=== PATIENT | female | born 1945 | race Caucasian/White ===

== ENCOUNTER 2022-12-02 07:11 | Outpatient (OUT) | payer MEDICARE, SELFPAY ==
[2022-12-02 11:28] LABS: Chol HDL Ratio 2.7; Cholesterol 164 mg/dL (<=200); HDL Cholesterol 60 mg/dL (40-60); Triglycerides 240 mg/dL (<=150)
== END 2022-12-02 07:12 | disposition home or self-care (01) ==
LOC: LAB 07:16
PROVIDERS: PCP Nurse Practitioner
DX: E11.22 Type 2 diabetes mellitus with diabetic chronic kidney disease (principal); E78.5 Hyperlipidemia, unspecified
CPT/HCPCS: 36415; 80061

== ENCOUNTER 2022-12-02 07:19 | Outpatient (OUT) | payer MEDICARE, SELFPAY ==
[2022-12-02 07:41] LABS: Hematocrit 40.7 % (36.0-48.0); Hemoglobin 13.2 g/dL (12.0-16.0); Mean Corpuscular HGB Conc 32.4 g/dL (29.9-35.2); Mean Corpuscular Hemoglobin 29.6 pg (26.7-34.0); Mean Corpuscular Volume 91.3 fL (81.0-99.0); Mean Platelet Volume 8.9 fL (9.5-13.5); Platelet Count 195 10^3/uL (150-450); Red Blood Count 4.46 10^6/uL (4.20-5.40); Red Cell Distribution Width 12.7 % (11.0-15.0); White Blood Count 5.9 10^3/uL (4.0-11.0)
[2022-12-02 07:42] LABS: Bilirubin Urine NEGATIVE (NEGATIVE); Blood Urine NEGATIVE (NEGATIVE); Clarity Urine CLEAR (CLEAR); Color Urine LT. YELLOW (YELLOW); Glucose Urine UA 250 mg/dL (NEGATIVE); Ketones Urine NEGATIVE (NEGATIVE); Leukocyte Esterase Urine TRACE (NEGATIVE); Nitrite Urine NEGATIVE (NEGATIVE); Protein Urine NEGATIVE (NEG/TRACE); Specific Gravity Urine 1.015 (1.005-1.025); Urobilinogen Urine 0.2 EU/dL (0.2-1.0)
[2022-12-02 07:57] LABS: WBC Urine 0-2 #/HPF (NONE SEEN)
[2022-12-02 07:58] LABS: Bacteria Urine TRACE #/HPF (NONE SEEN); Cast Seen? NONE SEEN #/LPF (NONE SEEN); Crystals Seen? None Seen #/HPF (None Seen); Mucus Urine NONE SEEN (NONE SEEN); RBC Urine 0-2 #/HPF (0-2); Squamous Epithelial Cell Urine NONE SEEN #/LPF (NONE/RARE)
[2022-12-02 07:59] LABS: Creatinine Urine Random 67.89 mg/dL (20.00-300.00); Protein Creatinine Ratio Urine 0.15; Total Protein Urine Random 10.4 mg/dL (<=11.9)
[2022-12-02 09:00] LABS: Albumin Level 3.9 g/dL (3.4-5.0); Anion Gap 14.1; BUN Creatinine Ratio 21.6; Calcium 9.2 mg/dL (8.5-10.1); Carbon Dioxide 27.8 mmol/L (21.0-32.0); Chloride 102 mmol/L (98-107); Estimated GFR (African America 55 (>=60); Estimated GFR (Non-African Ame 46 (>=60); Glucose 113 mg/dL (74-106); Phosphorus 4.1 mg/dL (2.6-4.7); Potassium 3.9 mmol/L (3.5-5.1); Sodium 140 mmol/L (136-145); Uric Acid 4.8 mg/dL (2.6-6.0)
[2022-12-03 14:08] LABS: PTH, Intact 36 pg/mL (15-65)
== END 2022-12-02 07:20 | disposition home or self-care (01) ==
LOC: LAB 07:21
PROVIDERS: PCP Nurse Practitioner; Visit Provider Internal Medicine
DX: E11.22 Type 2 diabetes mellitus with diabetic chronic kidney disease (principal); E78.5 Hyperlipidemia, unspecified; I12.9 Hypertensive chronic kidney disease with stage 1 through stage 4 chronic kidney disease, or unspecified chronic kidney disease; N18.30 Chronic kidney disease, stage 3 unspecified; E61.1 Iron deficiency; E56.9 Vitamin deficiency, unspecified; E83.42 Hypomagnesemia
CPT/HCPCS: 36415; 80061; 80069; 81001; 82306; 82570; 83735; 83970; 84156; 84550; 85027

== ENCOUNTER 2023-02-15 14:22 | Outpatient (OUT) | payer MEDICARE, SELFPAY ==
--- NOTE | 2023-02-15 14:24 | MM_ITS ---
Patient Name: TAMMY SOLORIO MR#: [id number] : 1945 Exam Date: 02/15/2023 Ordering Doctor: LIZETTE Tapia CNP RADIOLOGY REPORT PROCEDURE: MM TOMOSYNTHESIS SCREENING BI COMPARISON: MG MAMM SCREEN 3D RIGOBERTO CAD, 02/02/2021. MG MAMM SCREEN 3D RIGOBERTO CAD, 02/05/2022. INDICATIONS: screening Z12.31 Calculator Name NCI Breast Cancer Risk Assessment Tool 5 Year Breast Cancer Risk 3.90% Lifetime Breast Cancer Risk 7.80% Personal Breast Cancer No Personal Ovarian Cancer Yes, Age 51, Hysterectomy Treatments None Family Cancers Mother with breast cancer at age 63; Sister with uterine cancer at age 23; Brother with liver cancer at age 68. LOCATION: [facility] BREAST COMPOSITION: Scattered areas fibroglandular density. FINDINGS: DIAGNOSTIC CATEGORY 1--NEGATIVE. NO CHANGE FROM COMPARISON ASSESSMENT. Scattered benign-appearing calcifications are present. RIGHT BREAST: No significant suspicious finding. LEFT BREAST: No significant suspicious finding. RECOMMENDATIONS: ROUTINE MAMMOGRAM AND CLINICAL EVALUATION IN 12 MONTHS. PLEASE NOTE: A NORMAL MAMMOGRAM DOES NOT EXCLUDE THE POSSIBILITY OF BREAST CANCER. A CLINICALLY SUSPICIOUS PALPABLE LUMP SHOULD BE BIOPSIED. Dictated by: Preston Hancock MD on 02/16/2023 at 09:30 Approved by: Preston Hancock MD on 02/16/2023 at 09:35
== END 2023-02-15 14:23 | disposition home or self-care (01) ==
LOC: MAMMO 14:22
PROVIDERS: PCP Nurse Practitioner; Visit Provider Nurse Practitioner
DX: Z12.31 Encounter for screening mammogram for malignant neoplasm of breast (principal); Z78.0 Asymptomatic menopausal state; Z80.3 Family history of malignant neoplasm of breast; Z80.8 Family history of malignant neoplasm of other organs or systems; Z80.9 Family history of malignant neoplasm, unspecified
CPT/HCPCS: 77063; 77067

== ENCOUNTER 2023-02-18 10:33 | Outpatient (OUT) | payer MEDICARE, SELFPAY ==
--- NOTE | 2023-02-18 10:38 | XR_ITS ---
[address] [address] Patient Name: TAMMY SOLORIO MRN: [id number] date: 1945 Sex: F Assigned Patient Location: [facility] Current Patient Location: [facility] Accession/Order Number: [id number] Exam Date: 02/18/2023 10:42 Report Date: 02/18/2023 11:23 At the request of: KATJA LEO Procedure: XR DEXA axial skeleton EXAMINATION: XR DEXA axial skeleton HISTORY: Stage 3 Chronic Kidney Disease N18.30 COMPARISON: No relevant comparison available. TECHNIQUE: Dual-energy X-ray absorptiometry (DXA) was performed. FINDINGS: SPINE ANALYSIS: Average bone mineral density is 1.046 g/cm2. T-score (standard deviation relative to young adult mean): -1.1 . HIP ANALYSIS: Lowest bone mineral density is within the left femoral trochanter, 0.542 g/cm2. T-score (standard deviation relative to young adult mean): -2.7 . XR/XR DEXA axial skeleton IMPRESSION: [employer] Classification: Osteoporosis - High Fracture Risk Electronically authenticated by: CARLOS DELANEY Date: 02/18/2023 11:23
== END 2023-02-18 10:34 | disposition home or self-care (01) ==
LOC: RAD 10:33
PROVIDERS: PCP Nurse Practitioner; Visit Provider Nurse Practitioner
DX: N18.30 Chronic kidney disease, stage 3 unspecified (principal); Z78.0 Asymptomatic menopausal state; M81.0 Age-related osteoporosis without current pathological fracture
CPT/HCPCS: 77080

== ENCOUNTER 2023-06-07 07:14 | Outpatient (OUT) | payer MEDICARE, SELFPAY ==
--- OUTSIDE RECORDS SUMMARY | 2023-06-07 07:19 | XMS_ITS | CCD ---
Author Organization [facility] Care Team Providers Care Regenerator Operator Name Role Phone SULY SANTOS Unavailable Unavailable SULY SANTOS Unavailable Unavailable SULY SANTOS Unavailable Unavailable JACKLYN STARR Unavailable Unavailable Natalee Camacho Unavailable Mapus, Tondra Unavailable Buck, Eboni Unavailable Kristin Cardoso Unavailable AICHHOLZ, WAGE AND SALARY ADMINISTRATOR DANA Admitting Unavailable AICHHOLZ, WAGE AND SALARY ADMINISTRATOR DANA Attending Unavailable AICHHOLZ, WAGE AND SALARY ADMINISTRATOR DANA Primary Care Unavailable DR ANDRÉS ESCALONA V Consulting Unavailable AICHHOLZ, WAGE AND SALARY ADMINISTRATOR DANA Consulting Unavailable MAPUS, TONDRA Admitting Unavailable MAPUS, TONDRA Attending Unavailable AICHHOLZ, WAGE AND SALARY ADMINISTRATOR DANA Primary Care Unavailable MAPUS, TONDRA Consulting Unavailable BUCK, EBONI Admitting Unavailable BUCK, EBONI Attending Unavailable AICHHOLZ, WAGE AND SALARY ADMINISTRATOR DANA Primary Care Unavailable BUCK, EBONI Consulting Unavailable BUCK, EBONI Admitting Unavailable BUCK, EBONI Attending Unavailable AICHHOLZ, WAGE AND SALARY ADMINISTRATOR DANA Primary Care Unavailable AICHHOLZ, WAGE AND SALARY ADMINISTRATOR DANA Consulting Unavailable BUCK, EBONI Consulting Unavailable AICHHOLZ, WAGE AND SALARY ADMINISTRATOR DANA Admitting Unavailable AICHHOLZ, WAGE AND SALARY ADMINISTRATOR DANA Attending Unavailable AICHHOLZ, WAGE AND SALARY ADMINISTRATOR DANA Primary Care Unavailable AICHHOLZ, WAGE AND SALARY ADMINISTRATOR DANA Consulting Unavailable AICHHOLZ, WAGE AND SALARY ADMINISTRATOR DANA Admitting Unavailable AICHHOLZ, WAGE AND SALARY ADMINISTRATOR DANA Attending Unavailable AICHHOLZ, WAGE AND SALARY ADMINISTRATOR DANA Primary Care Unavailable AICHHOLZ, WAGE AND SALARY ADMINISTRATOR DANA Consulting Unavailable BUCK, EBONI Admitting Unavailable BUCK, EBONI Attending Unavailable AICHHOLZ, WAGE AND SALARY ADMINISTRATOR DANA Primary Care Unavailable BUCK, EBONI Consulting Unavailable MAPUS, TONDRA Admitting Unavailable MAPUS, TONDRA Attending Unavailable AICHHOLZ, WAGE AND SALARY ADMINISTRATOR DANA Primary Care Unavailable MAPUS, TONDRA Consulting Unavailable BUCK, EBONI Admitting Unavailable BUCK, EBONI Attending Unavailable AICHHOLZ, WAGE AND SALARY ADMINISTRATOR DANA Primary Care Unavailable BUCK, EBONI Consulting Unavailable MAPUS, TONDRA K Referring Unavailable AICHHOLZ, DANA J Primary Care Unavailable Aichholz SENIOR MOBILE APPLICATION DEVELOPER, Dana Unavailable Lex Choi MD Primary Care Provider NO FAMILY, PHYSICIAN Primary Care Provider Unava ilable Mapus, LICENSED PROFESSIONAL COUNSELOR Tondra K Attending Provider [phone] MARKUS BAER Attending Unavailable AICHHOLZ, DANA Attending Unavailable MARKUS BAER Attending Unavailable AICHHOLZ, DANA Attending Unavailable Mapus, Tondra K Attending Unavailable Mapus, Tondra K Admitting Unavailable NO FAMILY, PHYSICIAN Primary Care Unavailable Allergies Allergy Classification Reported Allergen(s) Allergy Type Date of Onset Reaction(s) Facility (20 sources) Sulfamethoxazole / Trimethoprim Drug Allergy rash [facility] [email or web address] Other (16 sources) semaglutide Drug Allergy 03-31-19 24 diarrhea [facility] (13 sources) Soy Protein Shake Drug allergy Unknown [facility] [email or web address] Other (10 sources) metFORMIN Drug Allergy 03-31-19 24 g/i s/e [facility] (5 sources) Soy Balance Drug allergy rash [facility] [email or web address] Other (3 sources) Soy protein; Translations: [SOY] Propensity to adverse reactions to food (disorder) 12-09-19 22 [facility] (1 source) Sulfonamides (Antibiotic); Translations: [SULFA (SULFONAMIDE ANTIBIOTICS)] Propensity to adverse reactions to drug (disorder) 10-29-19 17 [facility] (1 source) ADHESIVE TAPE-SILICONES; Translations: [ADHESIVE TAPE-SILICONES] Propensity to adverse reactions to drug (disorder) 10-30-19 17 [facility] (2 sources) Sulfonamides (Antibiotic) Drug Allergy 10-29-19 17 Hives, Rash [facility] (2 sources) Wound Dressing Adhesive Drug Allergy 09-16-19 Unknown [facility] (2 sources) Sulfamethoxazole; Translations: [sulfamethoxazole] Drug Allergy 03-31-19 [facility] (2 sources) Trimethoprim; Translations: [trimethoprim] Drug Allergy 03-31-19 [facility] (1 source) metFORMIN Drug Allergy 03-31-19 [facility] (1 source) semaglutide Drug allergy (disorder) 03-31-19 [facility] Rep[facility] Medications Current Medications Medication Drug Class(es) Dates Sig (Normalized) Sig (Original) acetaminophen 80 mg rectal suppository (2 sources) acetaminophen (Tylenol) 80 MG suppository Insert into the rectum every 6 (six) hours if needed for mild pain or fever. 0 Active acetaminophen 500 mg / diphenhydrAMINE hydrochloride 25 mg oral tablet (16 sources) Histamine-1 Receptor Antagonist take 2 tablets by mouth every twenty-four hours Acetaminophen PM 500-25 MG 2 TABLETS Orally Once a day Active alendronic acid 70 mg oral tablet (2 sources) Bisphosphonate Start: 03-08-2023 alendronate (Fosamax) 70 MG tablet Indications: Osteoporosis Take 1 tablet (70 mg) by mouth every 7 (seven) days for 28 days Take in the morning with a full glass of water, on an empty stomach, and do not take anything else by mouth or lie down for the next 30 min. 4 tablet 5 03/08/2023 Active amLODIPine 5 mg oral tablet (20 sources) Dihydropyridine Calcium Channel Leti Start: 06-28-2022 take 1 tablet by mouth in the morning amLODIPine (Norvasc) 5 MG tablet Take 5 mg by mouth in the morning. 0 06/28/2022 Active take 0.5 tablet by mouth once da ran amLODIPine Besylate 10 MG 1/2 tablet Orally Once a day Active ascorbic acid 1000 mg oral tablet (9 sources) Vitamin C Ascorbic Acid (vitamin C) 1000 MG tablet 1 (one) time each day at the same time. 0 Active aspirin 81 mg delayed release oral tablet (20 sources) Platelet Aggregation Inhibitor, Nonsteroidal Anti-inflammatory Drug take 1 tablet by mouth in the morning aspirin 81 MG EC tablet Take 81 mg by mouth in the morning. 0 Active take 1 tablet by fidel th every twenty-four hours Aspirin 81 MG 1 tablet Orally Once a day for 30 day(s) Active atorvastatin 20 mg oral tablet (20 sources) HMG-CoA Reductase Inhibitor Start: 03-29-2023 End: 06-27-2023 take 1 tablet by mouth in the morning atorvastatin (Lipitor) 20 MG tablet Indications: Mixed hyperlipidemia (CMS/HCC) Take 1 tablet (20 mg) by mouth in the morning. 90 tablet 1 03/29/2023 06/27/2023 Active take 1 tablet by fidel every twenty-four hours Atorvastatin Calcium 20 MG 1 tablet Oral ly Once a day Active Benadryl Allergy 25 MG (1 source) Start: 09-23-2021 take 1 capsule by mouth once daily at bedtime as needed Benadryl Allergy 25 MG 1 capsule at bedtime as needed Orally Once a day for 30 day(s) As needed for rash and itching Aug, Active Calcium Carbonate / Vitamin D (2 sources) Calcium Carbonate-Vitamin D (CALTRATE 600+D PO) Caltrate 600+D 0 Active Caltrate 600+D 600-400 MG-UNIT (20 sources) take 1 tablet by mouth twice daily Caltrate 600+D 600-400 MG-UNIT 1 TABLET Orally TWICE A DAY Active take 2 tablets by mouth twice da ran Caltrate 600+D 600-400 MG-UNIT 2 tablet Orally TWICE A DAY Active take 2 tablets by mouth once leeann ly Caltrate 600+D 600-400 MG-UNIT 2 tablet Orally daily Active cetirizine hydrochloride 10 mg oral tablet (20 sources) Histamine-1 Receptor Antagonist cetirizine (ZyrTEC) 10 MG tablet 1 (one) time each day at the same time. 0 Active cholecalciferol 0.05 mg oral tablet (3 sources) Vitamin D cholecalciferol (Vitamin D-3) 50 MCG (1999 UT) tablet Vitamin D3 0 Active take 1 capsule by mo [facility] every twenty-four hours Vitamin D 50 MCG (1999 UT) 1 capsule Orally Once a day for 30 day(s) Active dapagliflozin 5 mg oral tablet (19 sources) Sodium-Glucose Cotransporter 2 Inhibitor Start: 12-21-2021 take 1 tablet by mouth every twenty-four hours Farxiga 5 MG 1 tablet Orally Once a day for 90 day(s) Nov, Active docosahexaenoic acid 120 mg / eicosapentaenoic acid 180 mg oral capsule (2 sources) omega-3 (fish oil) 1000 MG capsule 1 capsule 1 (one) time each day at the same time. 0 Active ferrous sulfate 325 mg oral tablet (20 sources) take 1 tablet by mouth every other day ferrous sulfate 325 (65 Fe) MG tablet Take 1 tablet by mouth every other day. 0 Active take 1 tablet by mouth every oth er day Ferrous Sulfate 325 (65 Fe) MG TAKE 1 TABLET BY MOUTH EVERY OTHER DAY for 90 Active take 1 tablet by mouth every oth er day Ferrous Sulfate 325 (65 Fe) MG TAKE 1 TABLET BY MOUTH EVERY OTHER DAY 90 for 90 Active Finerenone 10 MG (13 sources) Start: 12-14-2021 take 1 tablet by fidel th once daily Finerenone 10 MG 1 tablet Orally Once a day for 90 days Nov, Active Start: 12-14-2021 take 1 tablet by fidel th once daily Finerenone 10 MG 1 tablet Orally Once a day for 90 day(s) Nov, Active Start: 12-14-2021 take 1 tablet by fidel th once daily Finerenone 10 MG 1 tablet Orally Once a day for 30 day(s) Nov, Active take 1 tablet by fidel th once daily Finerenone 10 MG 1 tablet Orally Once a day for 30 days Active finerenone 10 MG Oral Tablet [Kerendia] (2 sources) take 1 tablet by fidel th once daily Kerendia 10 MG TAKE 1 TABLET BY MOUTH EVERY DAY for 90 Active take 1 tablet by fidel th every twenty-four hours Kerendia 10 MG 1 tablet Orally Once a day Active gabapentin 100 mg oral capsu le (20 sources) Anti-epileptic Agent gabapentin (Neurontin) 100 MG capsule Gabapentin Activ e kerendia 10 mg tablet (1 source) take 1 tablet by mouth once daily Kerendia 10 MG TAKE 1 TABLET BY MOUTH EVERY DAY for 90 Active Kerendia 10 MG tablet (2 sources) take 1 tablet by mouth in the morning Kerendia 10 MG tablet Take 10 mg by mouth in the morning. 0 Active latanoprost 0.05 mg/ml ophthalmic solution (4 sources) Prostaglandin Analog Start: 3 take 1 drop(s) into the eye(s) once daily in the evening latanoprost (Xalatan) 0.005 % ophthalmic solution INSTILL 1 DROP INTO BOTH EYES EVERY EVENING DIRECTED 0 07/20/2022 Active take 1 drop(s) into the eye(s) once daily in the evening Latanoprost 0.005 % 1 drop into affected eye in the evening Ophthalmic Once a day Active losartan potassium 100 mg oral tablet (20 sources) Angiotensin 2 Receptor Leti Start: 02-27-2023 End: 05-28-2023 take 1 tablet by mouth in the morning losartan (Cozaar) 100 MG tablet Indications: Essential (primary) hypertension (CMS/HCC) Take 1 tablet (100 mg) by mouth in the morning. 90 tablet 0 02/27/2023 05/28/2023 Active Magnesium (20 sources) magnesium 250 MG tablet 1 (one) time each day at the same time. 0 Active take 1 tablet by mouth once michael y Magnesium 250 MG 1 tablet with a meal Orally Once a day Active melatonin 1 mg oral tablet (4 sources) melatonin tablet Take by mouth at bedtime. 0 Active Melatonin 10 MG as directed Orally Active Melatonin 10 MG as directed Orally Active Melatonin + L-Theanine - (7 sources) Melatonin + L-Theanine - as directed Orally Active meloxicam 15 mg oral tablet (20 sources) Nonsteroidal Anti-inflammatory Drug meloxicam (Mobic) 15 MG tablet 24 hr metFORMIN hydrochloride 500 mg extended release oral tablet (11 sources) Biguanide take 1 tablet by mouth every twenty-four hours metFORMIN HCl ER 500 MG 1 tablet Orally Daily Active methylPREDNISolone 4 mg oral tablet (1 source) Corticosteroid Start: 022 Medrol 4 MG as directed Orally as directed for 6 days Aug, Active Multiple Vitamins-Minerals (One Daily For Women 50+ Adv) tablet (2 sources) take 1 tablet by mouth once daily Multiple Vitamins-Minerals (One Daily For Women 50+ Adv) tablet as directed Orally 0 Active Revere 3 1000 MG (20 sources) take 1 capsule by mouth once daily Revere 3 1000 MG 1 capsule Orally Once a day Active omeprazole 20 mg delayed release oral capsule (20 sources) Proton Pump Inhibitor omeprazole (PriLOSEC) [address] capsule One Daily For Women 50+ Adv - (20 sources) One Daily For Women 50+ Adv - as directed Orally Active sertraline 50 mg oral tablet (20 sources) Serotonin Reuptake Inhibitor Start: End: 024 take 1 tablet by mouth in the morning sertraline (Zoloft) 50 MG tablet Indications: Depression, unspecified (CMS/HCC) Take 1 tablet (50 mg) by mouth in the morning. 90 tablet 1 02/27/2023 05/28/2023 Active triamcinolone acetonide 0.055 mg/actuat metered dose nasal spray (18 sources) Corticosteroid take 1 spray(s) nasal route once daily as needed Nasacort Allergy 24HR 55 MCG/ACT 1 spray in each nostril Nasally Once a day PRN ONLY Active Vitamin B12 1000 MCG (7 sources) take 1 tablet by mouth once daily Vitamin B12 1000 MCG 1 tablet Orally Once a day Active Vitamin C 1000 MG (13 sources) take 1 tablet by mouth once daily Vitamin C 1000 MG 1 tablet Orally Once a day for 30 day(s) Active Vitamin D 50 MCG (1999) (19 sources) take 1 capsule by mouth once daily Vitamin D 50 MCG (1999) 1 capsule Orally Once a day for 30 day(s) Active Completed/Discontinued Medications Medication Drug Class(es) Dates Sig (Normalized) Sig (Original) Ozempic 0.25 or 0.5 MG/DOSE (7 sources) inject 0.5 mg by subcutaneous injection every week Ozempic 0.25 or 0.5 MG/DOSE 0.5mg sq Subcutaneous once weekly Not-Taking inject 0.5 mg by sub cutaneous injection every week Ozempic 0.25 or 0.5 MG/DOSE 0.5mg sq Subcutaneous once weekly Active [employer] - (2 sources) [employer] - as directed Orally Not-Taking [employer] - as directed Orally Active Problems Active Problems Problem Classification Problem Date Documented Date Episodic/Chronic Administrative/socia l admission (5 sources) Dietary counseling and surveillance; Translations: [Dietary counseling and surveillance Z71.3] Onset: 1 Resolved: 2 Episodic Cancer of ovary (2 sources) Malignant tumor of ovary; 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] Onset: 5 02-07-2023 Chronic Cataract (2 sources) Cataract; Translations: [Unspecified cataract] Onset: 2 02-07-2023 Chronic Chronic kidney disease (20 sources) Chronic kidney disease stage 3; Translations: [Chronic kidney disease, stage 3 (moderate)] Onset: 3 02-07-2023 Chronic Deficiency and other anemia (20 sources) Anemia of renal disease; Translations: [Anemia in chronic kidney disease] Chronic Diabetes mellitus with complications (20 sources) Disorder of kidney due to diabetes mellitus; Translations: [Type 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] Onset: 1 Resolved: 2 Chronic Diabetes mellitus without complication (1 source) Diabetes mellitus without complication; Translations: [Type 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] Onset: 4 Disorders of lipid metabolism (20 sources) Hyperlipidemia; Translations: [Hyperlipidemia, unspecified] Onset: 7 Resolved: 2 Chronic Esophageal disorders (2 sources) Gastroesophageal reflux disease; Translations: [Gastro-esophageal reflux disease without esophagitis] Onset: 7 02-07-2023 Chronic Essential hypertension (20 sources) Essential hypertension; Translations: [Essential (primary) hypertension] Onset: 1 Resolved: 2 Chronic Hypertension with complications and secondary hypertension (20 sources) Benign arteriolar nephrosclerosis; Translations: [Hypertensive chronic kidney disease with stage 1 through stage 4 chronic kidney disease, or unspecified chronic kidney disease] Onset: 1 Resolved: 2 Chronic Mycoses (1 source) Onychomycosis due to dermatophyte ; Translations: [Tinea unguium] 04-13-2023 Episodic Nutritional deficiencies (20 sources) Vitamin D deficiency; Translations: [Vitamin D deficiency, unspecified] Chronic Nutritional deficiencies (20 sources) Deficiency of other specified B group vitamins; Translations: [Iron deficiency] Onset: 1 Resolved: 2 Episodic Osteoarthritis (4 sources) Arthritis; Translations: [Unspecified osteoarthritis, unspecified site] Onset: 3 02-07-2023 Chronic Osteoporosis (2 sources) Senile osteoporosis; Translations: [Age-related osteoporosis without current pathological fracture] Onset: 3 02-18-2023 Chronic Other aftercare (4 sources) Aftercare following joint replacement surgery; Translations: [AFTERCARE FOLLOWING JOINT REPLACEMENT SURGERY] Onset: 7 Chronic Other connective tissue disease (1 source) Presence of artificial knee joint, bilateral; Translations: [PRESENCE OF ARTIFICIAL KNEE JOINT, BILATERAL] Onset: 7 Chronic Other connective tissue disease (2 sources) Fibromyalgia; Translations: [Fibromyalgia] Onset: 3 02-07-2023 Episodic Other connective tissue disease (2 sources) Pain in toe; Translations: [Pain in right toe(s)] 04-13-2023 Episodic Other diseases of kidney and ureters (20 sources) Secondary hyperparathyroidism; Translations: [Secondary hyperparathyroidism of renal origin] Chronic Other diseases of kidney and ureters (1 source) Secondary hyperparathyroidism of renal origin; Translations: [SEC HYPERPARATHYROIDISM RENAL ORIGN] Onset: 2 Chronic Other nervous system disorders (2 sources) Polyneuropathy associated with another disorder; 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] Onset: 3 02-07-2023 Chronic Other nutritional; endocrine; and metabolic disorders (20 sources) Body mass index 40+ - severely obese; Translations: [Body mass index (BMI) 40.0-44.9, adult] Chronic Other nutritional; endocrine; and metabolic disorders (20 sources) Obese class II; Translations: [Body mass index (BMI) 38.0-38.9, adult] Chronic Other nutritional; endocrine; and metabolic disorders (5 sources) Body mass index (BMI) 37.0-37.9, adult; Translations: [BMI 37.0-37.9, adult Z68.37] Onset: 1 Resolved: 2 Chronic Other nutritional; endocrine; and metabolic disorders (13 sources) Hypomagnesemia; Translations: [Hypomagnesemia] Chronic Other nutritional; endocrine; and metabolic disorders (4 sources) Hypomagnesemia; Translations: [HYPOMAGNESEMIA] Onset: 3 Chronic Other nutritional; endocrine; and metabolic disorders (2 sources) Severe obesity; Translations: [Morbid (severe) obesity due to excess calories] Onset: 2 02-07-2023 Chronic Other screening for suspected conditions (not mental disorders or infectious disease) (6 sources) Encounter for screening mammogram for malignant neoplasm of breast; Translations: [Patient encounter status] Onset: 2 Episodic Other skin disorders (1 source) Dystrophia unguium; Translations: [Nail dystrophy] 04-13-2023 Episodic Residual codes; unclassified (2 sources) Menopause present; Translations: [Asymptomatic menopausal state] Onset: 3 02-07-2023 Episodic Unclassified (2 sources) Unknown / UNK(Unknown) Onset: 7 Unclassified (1 source) CHRN KIDNEY DISEASE STG 3 UNSP; Translations: [CHRN KIDNEY DISEASE STG 3 UNSP] Onset: 3 Past or Other Problems Problem Classification Problem Date Documented Da te Episodic/Chronic Allergic reactions (1 source) Urticaria, unspecified Onset: 09-23-2021 Resolved: 09-23-2021 Episodic Chronic kidney disease (20 sources) Chronic kidney disease; Translations: [Chronic kidney disease, stage III (moderate)] Onset: 12-23-2020 Resolved: 06-17-2021 Immunizations and screening for infectious disease (1 source) Encounter for immunization; Translations: [Encounter for immunization Z23] Onset: 12-05-2020 Resolved: 12-05-2020 Episodic Mood disorders (2 sources) Mood disorders Onset: 03-28-2023 03-28-2023 Other gastrointestinal disorders (4 sources) Diarrhea, unspecified; Translations: [DIARRHEA UNSPECIFIED] Onset: 06-18-2021 Episodic Residual codes; unclassified (1 source) Family history of malignant neoplasm of breast; Translations: [FAMILY HX MALIG NEOPLASM OF BREAST] Onset: 02-08-2022 Episodic Residual codes; unclassified (1 source) Family history of malignant neoplasm of digestive organs; Translations: [FAM HX MALIG NEOPLASM DIGESTIV ORGN] Onset: 02-08-2022 Episodic Residual codes; unclassified (1 source) Family history of malignant neoplasm of other genital organs; Translations: [FAM HX MALIG NEOPLSM OTH GENIT ORGN] Onset: 02-08-2022 Episodic Spondylosis; intervertebral disc disorders; other back problems (2 sources) Backache; Translations: [Dorsalgia, unspecified] Onset: 07-29-2016 02-07-2023 Episodic Results Test Name Value Interpretation Reference Range Facility Lipid 1996 panelon 4 Cholesterol [Mass/Vol] 144 mg/dL Low 150-200 [facility] Comment on above: Performed By: #### 2 4331-1 #### [facility] ([id number]) [address], [address] [place] [address] Cholesterol in HDL [Mass/Vol] 49 mg/dL Normal >39 [facility] Comment on above: Result Comment: HDL <40 mg/dL - High Risk HDL > or = 40mg/dL- Desirable HDL >60 mg/dL - Negative Risk Performed By: #### 2 4331-1 #### [facility] ([id number]) [address], [address] [place] [address] Cholesterol in LDL [Mass/Vol] 49 mg/dL Normal <130 [facility] Comment on above: Result Comment: LDL <100 mg/dL - Desirable LDL >160 mg/dL - High Risk Performed By: #### 2 4331-1 #### [facility] ([id number]) [address], [address] [place] [address] Cholesterol in VLDL [Mass/Vol] 46 mg/dL High 0-30 [facility] Comment on above: Performed By: #### 2 4331-1 #### [facility] ([id number]) [address], [address] [place] [address] CHOLESTEROL:HDL 2.9 Normal 1.0-5.0 [facility] Comment on above: Performed By: #### 2 4331-1 #### [facility] ([id number]) [address], [address] [place] [address] Triglyceride [Mass/Vol] 228 mg/dL High 27-150 [facility] Comment on above: Performed By: #### 2 4331-1 #### [facility] ([id number]) [address], [address] [place] [address] A1C HEMOGLOBINon 09-29-2022 HbA1c (Bld) [Mass fraction] 6.2 % [facility] Other Glucose - FINGER STICKon Glucose [Mass/Vol] 113 mg/dL [facility] Other HbA1c (Bld) [Mass fraction]o n 09-29-2022 A1C HEMOGLOBIN [facility] [email or web address] Other PTH INTACTon 06-03-2022 PTH, Intact 38 pg/mL Normal 15-65 [facility] Comment on above: Performed By: #### P THINT #### [facility] [address] [place] [address] Dr. Rizwan Fernando HEMOGRAM AND PLATELon 2022 Hematocrit (Bld) [Volume fraction] 39.5 % Normal 36.0-48.0 [facility] Comment on above: Performed By: #### H H #### [facility] [address] [address] [address] Rizwan Fernando Hemoglobin (Bld) [Mass/Vol] 12.8 g/dL Normal 12.0-16.0 [facility] Comment on above: Performed By: #### H H #### [facility] [address] [address] [address] Rizwan Fernando MCH (RBC) [Entitic mass] 28.9 pg Normal 26.7-34.0 [facility] Comment on above: Performed By: #### H H #### [facility] [address] [address] [address] Rizwan Fernando MCHC (RBC) [Mass/Vol] 32.4 g/dL Normal 29.9-35.2 [facility] Comment on above: Performed By: #### H H #### [facility] [address] [place] [address] Dr. Rizwan Fernando MCV (RBC) [Entitic vol] 89.2 fL Normal 81.0-99.0 [facility] Comment on above: Performed By: #### H H #### [facility] [address] [address] [address] Rizwan Fernando PLT 202 103/ul Normal 150-450 [facility] Comment on above: Performed By: #### H H #### [facility] [address] [place] [address] Dr. Rizwan Fernando RBC 4.43 106/ul Normal 4.20-5.40 [facility] Comment on above: Performed By: #### H H #### [facility] [address] [place] [address] Dr. Rizwan Fernando WBC 6.2 103/ul Normal 4.0-11.0 [facility] Comment on above: Performed By: #### H H #### [facility] [address] [place] [address] Dr. Rizwan Fernando IRON AND TIBCon 06-02-2022 % SATURATION 23.2 % Normal [facility] Comment on above: Performed By: #### R ENAL, MG, URIC #### [facility] [address] [place] [address] Dr. Rizwan Fernando Iron [Mass/Vol] 64.0 ug/dL Normal 50.0-170.0 [facility] Comment on above: Performed By: #### R ENAL, MG, URIC #### [facility] [address] [place] [address] Dr. Rizwan Fernando TIBC DIRECT 276.0 ug/dL Normal 250.0-450.0 [facility] Comment on above: Performed By: #### R ENAL, MG, URIC #### [facility] [address] [place] [address] Dr. Rizwan Fernando MAGNESIUMon 06-02-2022 Magnesium [Mass/Vol] 1.9 mg/dL Normal 1.8-2.4 [facility] Comment on above: Performed By: #### R ENAL, MG, URIC #### [facility] [address] [place] [address] Dr. Rizwan Fernando RENAL FUNCTION PANELon 06-02 Albumin [Mass/Vol] 3.9 g/dL Normal 3.4-5.0 [facility] Comment on above: Performed By: #### R ENAL, MG, URIC #### [facility] [address] [address] [address] Rizwan Fernando Calcium [Mass/Vol] 9.2 mg/dL Normal 8.5-10.1 [facility] Comment on above: Performed By: #### R ENAL, MG, URIC #### [facility] [address] [address] [address] Rizwan Fernando Chloride [Moles/Vol] 102 mmol/L Normal 98-107 [facility] Comment on above: Performed By: #### R ENAL, MG, URIC #### [facility] [address] [place] [address] Dr. Rizwan Fernando CO2 [Moles/Vol] 29.2 mmol/L Normal 21.0-32.0 [facility] Comment on above: Performed By: #### R ENAL, MG, URIC #### [facility] [address] [place] [address] Dr. Rizwan Fernando Creatinine [Mass/Vol] 1.05 mg/dL Critically high 0.55-1.02 [facility] Comment on above: Performed By: #### R ENAL, MG, URIC #### [facility] [address] [place] [address] Dr. Rizwan Fernando EGFR-AF BRITISH >60 Normal >=60 [facility] Comment on above: Performed By: #### R ENAL, MG, URIC #### [facility] [address] [place] [address] Dr. Rizwan Fernando EGFR-NON AF BRITISH 51 mL/min/1.73m2 Critically low >=60 [facility] Comment on above: Performed By: #### R ENAL, MG, URIC #### [facility] [address] [place] [address] Dr. Rizwan Fernando Glucose [Mass/Vol] 112 mg/dL Critically high 74-106 [facility] Comment on above: Performed By: #### R ENAL, MG, URIC #### [facility] [address] [address] [address] Rizwan Fernando Phosphate [Mass/Vol] 4.3 mg/dL Normal 2.6-4.7 [facility] Comment on above: Performed By: #### R ENAL, MG, URIC #### [facility] [address] [place] [address] Dr. Rizawn Fernando Potassium [Moles/Vol] 4.0 mmol/L Normal 3.5-5.1 [facility] Comment on above: Performed By: #### R ENAL, MG, URIC #### [facility] [address] [address] [address] Rizwan Fernando Sodium [Moles/Vol] 139 mmol/L Normal 136-145 [facility] Comment on above: Performed By: #### R ENAL, MG, URIC #### [facility] [address] [place] [address] Dr. Rizwan Fernando Urea nitrogen [Mass/Vol] 24.0 mg/dL Critically high 7.0-18.0 [facility] Comment on above: Performed By: #### R ENAL, MG, URIC #### [facility] [address] [place] [address] Dr. Rizwan Fernando UA RANDOM W/MICROSCOPICon BACTERIA NONE SEEN Normal NONE SEEN [facility] Comment on above: Performed By: #### R ENAL, MG, URIC #### [facility] [address] [place] [address] Dr. Rizwan Fernando Bilirubin Ql (U) Negative Normal NEGATIVE [facility] Comment on above: Performed By: #### R ENAL, MG, URIC #### [facility] [address] [place] [address] Dr. Rizwan Fernando CAST NONE SEEN Normal NONE SEEN [facility] Comment on above: Performed By: #### R ENAL, MG, URIC #### [facility] [address] [place] [address] Dr. Rizwan Fernando Clarity (U) CLEAR Normal CLEAR [facility] Comment on above: Performed By: #### R ENAL, MG, URIC #### [facility] [address] [address] [address] Rizwan Fernando Color (U) LT. YELLOW Normal YELLOW [facility] Comment on above: Performed By: #### R ENAL, MG, URIC #### [facility] [address] [place] [address] Dr. Rizwan Fernando Crystals LM Nom (Urine sed) NONE SEEN Normal NONE SEEN [facility] Comment on above: Performed By: #### R ENAL, MG, URIC #### [facility] [address] [place] [address] Dr. Rizwan Fernando Epithelial cells LM Ql (Urine sed) NONE SEEN Normal NONE SEEN /RARE [facility] Comment on above: Performed By: #### R ENAL, MG, URIC #### [facility] [address] [place] [address] Dr. Rizwan Fernando Glucose Ql (U) 250 mg/dl Abnormal NEGATIVE [facility] Comment on above: Performed By: #### R ENAL, MG, URIC #### [facility] [address] [place] [address] Dr. Rizwan Fernando Hemoglobin Ql (U) Negative Normal NEGATIVE The [facility] Comment on above: Performed By: #### R ENAL, MG, URIC #### [facility] [address] [place] [address] Dr. Rizwan Fernando Ketones Ql (U) Negative Normal NEGATIVE [facility] Comment on above: Performed By: #### R ENAL, MG, URIC #### [facility] [address] [place] [address] Dr. Rizwan Fernando LEUKOCYTES TRACE Abnormal NEGATIVE [facility] Comment on above: Performed By: #### R ENAL, MG, URIC #### [facility] [address] [place] [address] Dr. Rizwan Fernando MUCOUS NONE SEEN Normal NONE SEEN [facility] Comment on above: Performed By: #### R ENAL, MG, URIC #### [facility] [address] [place] [address] Dr. Rizwan Fernando Nitrite Ql (U) Negative Normal NEGATIVE [facility] Comment on above: Performed By: #### R ENAL, MG, URIC #### [facility] [address] [place] [address] Dr. Rizwan Fernando pH (U) 6.0 [pH] Normal 5-9 [facility] Comment on above: Performed By: #### R ENAL, MG, URIC #### [facility] [address] [place] [address] Dr. Rizwan Fernando RBC NONE SEEN Abnormal 0-2 [facility] Comment on above: Performed By: #### R ENAL, MG, URIC #### [facility] [address] [address] [address] Rizwan Fernando SPEC GRAVITY 1.015 Normal 1.005-<=1.025 [facility] Comment on above: Performed By: #### R ENAL, MG, URIC #### [facility] [address] [place] [address] Dr. Rizwan Fernando UA PROTEIN Negative Normal NEGATIVE/ TRACE [facility] Comment on above: Performed By: #### R ENAL, MG, URIC #### [facility] [address] [place] [address] Dr. Rizwan Fernando Urobilinogen Qn (U) 0.2 {Wil'U}/dL Normal 0.2 - 1.0 [facility] Comment on above: Performed By: #### R ENAL, MG, URIC #### [facility] [address] [place] [address] Dr. Rizwan Fernando WBC 0-2 Abnormal NONE SEEN [facility] Comment on above: Performed By: #### R ENAL, MG, URIC #### [facility] [address] [place] [address] Dr. Rizwan Fernando URIC ACID SERUMon 06-02-2022 Urate [Mass/Vol] 4.3 mg/dL Normal 2.6-6.0 [facility] Comment on above: Performed By: #### R ENAL, MG, URIC #### [facility] [address] [place] [address] Dr. Rizwan Fernando URINE T PROTEIN CREAT RATIOo n 04-05-2023 Protein (U) [Mass/Vol] 12.9 mg/dL Critically high <=12.0 [facility] Comment on above: Performed By: #### U RTPCR #### [facility] [address] [place] [address] Dr. Rizwan Fernando UR PROT CREAT RAT 0.21 Normal [facility] Comment on above: Performed By: #### U RTPCR #### [facility] [address] [place] [address] Dr. Rizwan Fernando URINE CREAT 62.07 mg/dL Normal 20.00-300.[address] [facility] Comment on above: Performed By: #### U RTPCR #### [facility] [address] [place] [address] Dr. Rizwan Fernando VITAMIN D 25 OHon 06-02-2022 VIT D 25-OH 42.4 ng/mL Normal [facility] Comment on above: Performed By: #### R ENAL, MG, URIC #### [facility] [address] [place] [address] Dr. Rizwan Fernando VIT D RANGES SEE BELOW Normal [facility] Comment on above: Result Comment: <20 ng/mL Vit D deficient 20 - <30 ng/mL Vit D insufficient 30 - 100 ng/mL Vit D sufficient >100 ng/mL Potential Toxicity Performed By: #### R ENAL, MG, URIC #### [facility] [address] [place] [address] Dr. Rizwan Fernando A1C HEMOGLOBINon 03-31-2022 HbA1c (Bld) [Mass fraction] 5.8 % [employer] Other Glucose - FINGER STICKon Glucose [Mass/Vol] 135 mg/dL [employer] Other HbA1c (Bld) [Mass fraction]o n 03-31-2022 A1C HEMOGLOBIN [employer] Other PROF CHEM 8 (BAS METB)on Anion gap [Moles/Vol] 13.7 mmol/L Normal [facility] Comment on above: Performed By: #### R ENAL, MG, URIC #### [facility] [address] [address] [address] Rizwan Fernando Calcium [Mass/Vol] 9.1 mg/dL Normal 8.5-10.1 [facility] Comment on above: Performed By: #### R ENAL, MG, URIC #### [facility] [address] [address] [address] Rizwan Fernando Chloride [Moles/Vol] 103 mmol/L Normal 98-107 [facility] Comment on above: Performed By: #### R ENAL, MG, URIC #### [facility] [address] [address] [address] Rizwan Fernando CO2 [Moles/Vol] 28.8 mmol/L Normal 21.0-32.0 [facility] Comment on above: Performed By: #### R ENAL, MG, URIC #### [facility] [address] [place] [address] Dr. Rizwan Fernando Creatinine [Mass/Vol] 1.21 mg/dL Critically high 0.55-1.02 [facility] Comment on above: Performed By: #### R ENAL, MG, URIC #### [facility] [address] [address] [address] Rizwan Fernando EGFR-AF BRITISH 53 mL/min/1.73m2 Critically low >=60 [facility] Comment on above: Performed By: #### R ENAL, MG, URIC #### [facility] [address] [address] [address] Rizwan Fernando EGFR-NON AF BRITISH 43 mL/min/1.73m2 Critically low >=60 [facility] Comment on above: Performed By: #### R ENAL, MG, URIC #### [facility] [address] [address] [address] Rizwan Fernando Glucose [Mass/Vol] 121 mg/dL Critically high 74-106 [facility] Comment on above: Performed By: #### R ENAL, MG, URIC #### [facility] [address] [address] [address] Rizwan Fernando Potassium [Moles/Vol] 4.5 mmol/L Normal 3.5-5.1 [facility] Comment on above: Performed By: #### R ENAL, MG, URIC #### [facility] [address] [address] [address] Rizwan Fernando Sodium [Moles/Vol] 141 mmol/L Normal 136-145 [facility] Comment on above: Performed By: #### R ENAL, MG, URIC #### [facility] [address] [address] [address] Rizwan Fernando Urea nitrogen [Mass/Vol] 26.0 mg/dL Critically high 7.0-18.0 [facility] Comment on above: Performed By: #### R ENAL, MG, URIC #### [facility] [address] [address] [address] Rizwan Fernando Urea nitrogen/Creatinin e [Mass ratio] 21.5 mg/mg Normal [facility] Comment on above: Performed By: #### R ENAL, MG, URIC #### [facility] [address] [place] [address] Dr. Rizwan Fernando MG MAMM SCREEN 3D RIGOBERTO CADon 02-05-2022 MG MAMM SCREEN 3D RIGOBERTO CAD Patient: ASHLEY WANG Exam Date: 02/05/2022 : 1945 Gender:F Ordering : LIZETTE TAPIA [facility] Admission #: [id number] Family : Order #: [id number] CLICK HERE TO VIEW EXAM RADIOLOGY REPORT PROCEDURE: MAMMOGRAM SCREENING 3D BILATERAL CAD COMPARISON: MG MAMM SCREEN 3D RIGOBERTO CAD, 02/02/2021. INDICATIONS: Screening mammography Calculator Name NCI Breast Cancer Risk Assessment Tool 5 Year Breast Cancer Risk 3.90% Lifetime Breast Cancer Risk 8.20% Personal Breast Cancer No Personal Ovarian Cancer Yes, Age 51, Hysterectomy Treatments None Family Cancers Mother with breast cancer at age 63; Sister with uterine cancer at age 23; Brother with liver cancer at age 68. LOCATION: [facility] BREAST COMPOSITION: Scattered areas fibroglandular density. FINDINGS: DIAGNOSTIC CATEGORY 1--NEGATIVE. NO CHANGE FROM COMPARISON ASSESSMENT. Scattered benign-appearing lymph nodes are present. RIGHT BREAST: No significant suspicious finding. LEFT BREAST: No significant suspicious finding. RECOMMENDATIONS: ROUTINE MAMMOGRAM AND CLINICAL EVALUATION IN 12 MONTHS. PLEASE NOTE: A NORMAL MAMMOGRAM DOES NOT EXCLUDE THE POSSIBILITY OF BREAST CANCER. A CLINICALLY SUSPICIOUS PALPABLE LUMP SHOULD BE BIOPSIED. Dictated by: Andrés Escalona MD on 02/05/2022 at 09:49 Approved by: Andrés Escalona MD on 02/05/2022 at 09:50 Normal [facility] RENAL FUNCTION PANELon 12-22 Albumin [Mass/Vol] 4.4 g/dL Normal 3.4-5.0 [facility] Comment on above: Performed By: #### R ENAL, MG, URIC #### [facility] [address] [place] [address] Dr. Rizwan Fernando Calcium [Mass/Vol] 9.5 mg/dL Normal 8.5-10.1 [facility] Comment on above: Performed By: #### R ENAL, MG, URIC #### [facility] [address] [place] [address] Dr. Rizwan Fernando Chloride [Moles/Vol] 102 mmol/L Normal 98-107 [facility] Comment on above: Performed By: #### R ENAL, MG, URIC #### [facility] [address] [place] [address] Dr. Rizwan Fernando CO2 [Moles/Vol] 29.2 mmol/L Normal 21.0-32.0 [facility] Comment on above: Performed By: #### R ENAL, MG, URIC #### [facility] [address] [place] [address] Dr. Rizwan Fernando Creatinine [Mass/Vol] 1.04 mg/dL Critically high 0.55-1.02 [facility] Comment on above: Performed By: #### R ENAL, MG, URIC #### [facility] [address] [place] [address] Dr. Rizwan Fernando EGFR-AF BRITISH >60 Normal >=60 [facility] Comment on above: Performed By: #### R ENAL, MG, URIC #### [facility] [address] [place] [address] Dr. Rizwan Fernando EGFR-NON AF BRITISH 52 mL/min/1.73m2 Critically low >=60 [facility] Comment on above: Performed By: #### R ENAL, MG, URIC #### [facility] [address] [address] [address] Rizwan Fernando Glucose [Mass/Vol] 101 mg/dL Normal 74-106 [facility] Comment on above: Performed By: #### R ENAL, MG, URIC #### [facility] [address] [address] [address] Rizwan Fernando Phosphate [Mass/Vol] 5.0 mg/dL Critically high 2.6-4.7 [facility] Comment on above: Performed By: #### R ENAL, MG, URIC #### [facility] [address] [address] [address] Rizwan Fernando Potassium [Moles/Vol] 4.1 mmol/L Normal 3.5-5.1 [facility] Comment on above: Performed By: #### R ENAL, MG, URIC #### [facility] [address] [address] [address] Rizwan Fernando Sodium [Moles/Vol] 141 mmol/L Normal 136-145 [facility] Comment on above: Performed By: #### R ENAL, MG, URIC #### [facility] [address] [place] [address] Dr. Rizwan Fernando Urea nitrogen [Mass/Vol] 24.0 mg/dL Critically high 7.0-18.0 [facility] Comment on above: Performed By: #### R ENAL, MG, URIC #### [facility] [address] [place] [address] Dr. Rizwan Fernando A1C HEMOGLOBINon 12-21-2021 HbA1c (Bld) [Mass fraction] 6.1 % [employer] Other Glucose - FINGER STICKon Glucose [Mass/Vol] 137 mg/dL [employer] Other HbA1c (Bld) [Mass fraction]o n 12-21-2021 A1C HEMOGLOBIN [employer] Other PTH INTACTon 12-05-2021 PTH, Intact 26 pg/mL Normal 15-65 [facility] Comment on above: Performed By: #### R ENAL, MG, URIC #### [facility] [address] [place] [address] Dr. Rizwan Fernando FERRITINon 12-04-2021 Ferritin [Mass/Vol] 89.0 ng/mL Normal 8.0-252.0 [facility] Comment on above: Performed By: #### R ENAL, MG, URIC #### [facility] [address] [place] [address] Dr. Rizwan Fernando HEMOGRAM AND PLATELon 2021 Hematocrit (Bld) [Volume fraction] 38.3 % Normal 36.0-48.0 [facility] Comment on above: Performed By: #### R ENAL, MG, URIC #### [facility] [address] [place] [address] Dr. Rizwan Fernando Hemoglobin (Bld) [Mass/Vol] 12.5 g/dL Normal 12.0-16.0 [facility] Comment on above: Performed By: #### R ENAL, MG, URIC #### [facility] [address] [place] [address] Dr. Rizwan Fernando MCH (RBC) [Entitic mass] 28.9 pg Normal 26.7-34.0 [facility] Comment on above: Performed By: #### R ENAL, MG, URIC #### [facility] [address] [place] [address] Dr. Rizwan Fernando MCHC (RBC) [Mass/Vol] 32.6 g/dL Normal 29.9-35.2 [facility] Comment on above: Performed By: #### R ENAL, MG, URIC #### [facility] [address] [place] [address] Dr. Rizwan Fernando MCV (RBC) [Entitic vol] 88.5 fL Normal 81.0-99.0 [facility] Comment on above: Performed By: #### R ENAL, MG, URIC #### [facility] [address] [place], [place] [id number] Dr. Rizwan Fernando PLT 188 103/ul Normal 150-450 [facility] Comment on above: Performed By: #### R ENAL, MG, URIC #### [facility] [address] [address] [address] Rizwan Fernando RBC 4.33 106/ul Normal 4.20-5.40 [facility] Comment on above: Performed By: #### R ENAL, MG, URIC #### [facility] [address] [address] [address] Rizwan Fernando WBC 5.4 103/ul Normal 4.0-11.0 [facility] Comment on above: Performed By: #### R ENAL, MG, URIC #### [facility] [address] [place] [address] Dr. Rizwan Fernando IRON AND TIBCon 12-04-2021 % SATURATION 20.3 % Normal [facility] Comment on above: Performed By: #### R ENAL, MG, URIC #### [facility] [address] [place] [address] Dr. Rizwan eFrnando Iron [Mass/Vol] 56.0 ug/dL Normal 50.0-170.0 [facility] Comment on above: Performed By: #### R ENAL, MG, URIC #### [facility] [address] [place] [address] Dr. Rizwan Fernando TIBC DIRECT 276.0 ug/dL Normal 250.0-450.0 [facility] Comment on above: Performed By: #### R ENAL, MG, URIC #### [facility] [address] [place] [address] Dr. Rizwan Fernando LIPID PROFILEon 12-04-2021 CHOL-HDL RATIO NORM SEE BELOW Normal [facility] Comment on above: Result Comment: 3.3 - 4.4 LOW RISK 4.4 - 7.1 AVERAGE RISK 7.1 - 11.0 MODERATE RISK >11.0 HIGH RISK Performed By: #### R ENAL, MG, URIC #### [facility] [address] [place] [address] Dr. Rizwan Fernando Cholesterol [Mass/Vol] 152 mg/dL Normal <=200 [facility] Comment on above: Performed By: #### R ENAL, MG, URIC #### [facility] [address] [address] [address] Rizwan Fernando Cholesterol in HDL [Mass/Vol] 57 mg/dL Normal 40-60 [facility] Comment on above: Performed By: #### R ENAL, MG, URIC #### [facility] [address] [address] [address] Rizwan Fernando Cholesterol in LDL [Mass/Vol] 41.4 mg/dL Normal [facility] Comment on above: Performed By: #### R ENAL, MG, URIC #### [facility] [address] [address] [address] Rizwan Fernando Cholesterol.total/ Cholesterol in HDL [Mass ratio] 2.7 {ratio} Normal [facility] Comment on above: Performed By: #### R ENAL, MG, URIC #### [facility] [address] [address] [address] Rizwan Fernando HDL NORMAL > or = 60 mg/dl - LO W CARDIOVASCULAR RISK <40 mg/dl - HIGH CARDIOVASCULAR RISK Normal [facility] Comment on above: Performed By: #### R ENAL, MG, URIC #### [facility] [address] [place] [address] Dr. Rizwan Fernando LDL CALC NORMAL SEE BELOW Normal [facility] Comment on above: Result Comment: <100 mg/dl OPTIMAL 100 - 129 mg/dl NEAR OR ABOVE OPTIMAL 130 - 159 mg/dl BORDERLINE HIGH 160 - 189 mg/dl HIGH >190 mg/dl VERY HIGH Performed By: #### R ENAL, MG, URIC #### [facility] [address] [address] [address] Rizwan Fernando Triglyceride [Mass/Vol] 268 mg/dL Critically high <=150 [facility] Comment on above: Performed By: #### R ENAL, MG, URIC #### [facility] [address] [address] [address] Rizwan Fernando VLDL CALC 53.6 mg/dL Normal [facility] Comment on above: Performed By: #### R ENAL, MG, URIC #### [facility] [address] [place] [address] Dr. Rizwan Fernando MAGNESIUMon 12-04-2021 Magnesium [Mass/Vol] 1.6 mg/dL Critically low 1.8-2.4 [facility] Comment on above: Performed By: #### R ENAL, MG, URIC #### [facility] [address] [place] [address] Dr. Rizwan Fernando MICROALB CREAT RATIO RANDOMo n 12-04-2021 mALB 1.6 mg/L Normal <=30.0 [facility] Comment on above: Performed By: #### M CRR #### [facility] [address] [place] [address] Dr. Rizwan Fernando MALB CR RATIO 26.9 mg/g Normal 0.0-29.9 [facility] Comment on above: Performed By: #### M CRR #### [facility] [address] [place] [address] Dr. Rizwan Fernando MALB CR RATIO RANGE SEE BELOW Normal [facility] Comment on above: Result Comment: NO M ICROALBUMINURIA 0-29 MG/G CLINICAL MICROALBUMINURIA 30-300 MG/G MACROALBUMINURIA >300 MG/G Performed By: #### M CRR #### [facility] [address] [place] [address] Dr. Rizwan Fernando URINE CREAT 59.53 mg/dL Normal 20.00-300.00 [facility] Comment on above: Performed By: #### M CRR #### [facility] [address] [place] [address] Dr. Rizwan Fernando PHOSPHORUSon 12-04-2021 Phosphate [Mass/Vol] 4.0 mg/dL Normal 2.6-4.7 [facility] Comment on above: Performed By: #### R ENAL, MG, URIC #### [facility] [address] [place] [address] Dr. Rizwan Fernando PROF 14(COMP METB)on 022 Albumin [Mass/Vol] 4.0 g/dL Normal 3.4-5.0 [facility] Comment on above: Performed By: #### R ENAL, MG, URIC #### [facility] [address] [place] [address] Dr. Rizwan Fernando Albumin/Globulin [Mass ratio] 1.3 {ratio} Normal [facility] Comment on above: Performed By: #### R ENAL, MG, URIC #### [facility] [address] [place] [address] Dr. Rizwan Fernando ALP [Catalytic activity/Vol] 118 U/L Critically high 46-116 [facility] Comment on above: Performed By: #### R ENAL, MG, URIC #### [facility] [address] [place] [address] Dr. Rizwan Fernando ALT [Catalytic activity/Vol] 23 U/L Normal 14-59 [facility] Comment on above: Performed By: #### R ENAL, MG, URIC #### [facility] [address] [place] [address] Dr. Rizwan Fernando Anion gap [Moles/Vol] 10.7 mmol/L Normal [facility] Comment on above: Performed By: #### R ENAL, MG, URIC #### [facility] [address] [place] [address] Dr. Rizwan Fernando AST [Catalytic activity/Vol] 20 U/L Normal 15-37 [facility] Comment on above: Performed By: #### R ENAL, MG, URIC #### [facility] [address] [place] [address] Dr. Rizwan Fernando Bilirubin [Mass/Vol] 0.6 mg/dL Normal 0.2-1.0 [facility] Comment on above: Performed By: #### R ENAL, MG, URIC #### [facility] [address] [place] [address] Dr. Rizwan Fernando Calcium [Mass/Vol] 8.9 mg/dL Normal 8.5-10.1 [facility] Comment on above: Performed By: #### R ENAL, MG, URIC #### [facility] [address] [place] [address] Dr. Rizwan Fernando Chloride [Moles/Vol] 103 mmol/L Normal 98-107 [facility] Comment on above: Performed By: #### R ENAL, MG, URIC #### [facility] [address] [address] [address] Rizwan Fernando CO2 [Moles/Vol] 28.2 mmol/L Normal 21.0-32.0 [facility] Comment on above: Performed By: #### R ENAL, MG, URIC #### [facility] [address] [place] [address] Dr. Rizwan Fernando Creatinine [Mass/Vol] 1.04 mg/dL Critically high 0.55-1.02 [facility] Comment on above: Performed By: #### R ENAL, MG, URIC #### [facility] [address] [place] [address] Dr. Rizwan Fernando EGFR-AF BRITISH >60 Normal >=60 [facility] Comment on above: Performed By: #### R ENAL, MG, URIC #### [facility] [address] [place] [address] Dr. Rizwan Fernando EGFR-NON AF BRITISH 52 mL/min/1.73m2 Critically low >=60 [facility] Comment on above: Performed By: #### R ENAL, MG, URIC #### [facility] [address] [place] [address] Dr. Rizwan Fernando Globulin (S) [Mass/Vol] 3.1 g/dL Normal [facility] Comment on above: Performed By: #### R ENAL, MG, URIC #### [facility] [address] [place] [address] Dr. Rizwan Fernando Glucose [Mass/Vol] 115 mg/dL Critically high 74-106 [facility] Comment on above: Performed By: #### R ENAL, MG, URIC #### [facility] [address] [place] [address] Dr. Rizwan Fernando Potassium [Moles/Vol] 3.9 mmol/L Normal 3.5-5.1 [facility] Comment on above: Performed By: #### R ENAL, MG, URIC #### [facility] [address] [place] [address] Dr. Rizwan Fernando Protein [Mass/Vol] 7.1 g/dL Normal 6.4-8.2 [facility] Comment on above: Performed By: #### R ENAL, MG, URIC #### [facility] [address] [place] [address] Dr. Rizwan Fernando Sodium [Moles/Vol] 138 mmol/L Normal 136-145 [facility] Comment on above: Performed By: #### R ENAL, MG, URIC #### [facility] [address] [place] [address] Dr. Rizwan Fernando Urea nitrogen [Mass/Vol] 23.0 mg/dL Critically high 7.0-18.0 [facility] Comment on above: Performed By: #### R ENAL, MG, URIC #### [facility] [address] [place] [address] Dr. Rizwan Fernando Urea nitrogen/Creatinin e [Mass ratio] 22.1 mg/mg Normal [facility] Comment on above: Performed By: #### R ENAL, MG, URIC #### [facility] [address] [place] [address] Dr. Rizwan Fernando UA RANDOM W/MICROSCOPICon BACTERIA NONE SEEN Normal NONE SEEN [facility] Comment on above: Performed By: #### R ENAL, MG, URIC #### [facility] [address] [place] [address] Dr. Rizwan Fernando Bilirubin Ql (U) Negative Normal NEGATIVE [facility] Comment on above: Performed By: #### R ENAL, MG, URIC #### [facility] [address] [place] [address] Dr. Rizwan Fernando CAST NONE SEEN Normal NONE SEEN [facility] Comment on above: Performed By: #### R ENAL, MG, URIC #### [facility] [address] [place] [address] Dr. Rizwan Fernando Clarity (U) CLEAR Normal CLEAR [facility] Comment on above: Performed By: #### R ENAL, MG, URIC #### [facility] [address] [address] [address] Rizwan Fernando Color (U) LT. YELLOW Normal YELLOW [facility] Comment on above: Performed By: #### R ENAL, MG, URIC #### [facility] [address] [address] [address] Rizwan Fernando Crystals LM Nom (Urine sed) NONE SEEN Normal NONE SEEN [facility] Comment on above: Performed By: #### R ENAL, MG, URIC #### [facility] [address] [address] [address] Rizwan Fernando Epithelial cells LM Ql (Urine sed) RARE Normal NONE SEEN /RARE [facility] Comment on above: Performed By: #### R ENAL, MG, URIC #### [facility] [address] [place] [address] Dr. Rizwan Fernando Glucose Ql (U) Negative Normal NEGATIVE [facility] Comment on above: Performed By: #### R ENAL, MG, URIC #### [facility] [address] [place] [address] Dr. Rizwan Fernando Hemoglobin Ql (U) Negative Normal NEGATIVE [facility] Comment on above: Performed By: #### R ENAL, MG, URIC #### [facility] [address] [place] [address] Dr. Rizwan Fernando Ketones Ql (U) Negative Normal NEGATIVE [facility] Comment on above: Performed By: #### R ENAL, MG, URIC #### [facility] [address] [address] [address] Rizwan Fernando LEUKOCYTES TRACE Abnormal NEGATIVE [facility] Comment on above: Performed By: #### R ENAL, MG, URIC #### [facility] [address] [place] [address] Dr. Rizwan Fernando MUCOUS NONE SEEN Normal NONE SEEN [facility] Comment on above: Performed By: #### R ENAL, MG, URIC #### [facility] [address] [place] [address] Dr. Rizwan Fernando Nitrite Ql (U) Negative Normal NEGATIVE [facility] Comment on above: Performed By: #### R ENAL, MG, URIC #### [facility] [address] [address] [address] Rizwan Fernando pH (U) 6.0 [pH] Normal 5-9 [facility] Comment on above: Performed By: #### R ENAL, MG, URIC #### [facility] [address] [address] [address] Rizwan Fernando RBC NONE SEEN Abnormal 0-2 [facility] Comment on above: Performed By: #### R ENAL, MG, URIC #### [facility] [address] [address] [address] Rizwan Fernando SPEC GRAVITY 1.010 Normal 1.005-<=1.025 [facility] Comment on above: Performed By: #### R ENAL, MG, URIC #### [facility] [address] [address] [address] Rizwan Fernando UA PROTEIN Negative Normal NEGATIVE/ TRACE [facility] Comment on above: Performed By: #### R ENAL, MG, URIC #### [facility] [address] [address] [address] Rizwan Fernando Urobilinogen Qn (U) 0.2 {Wil'U}/dL Normal 0.2 - 1.0 [facility] Comment on above: Performed By: #### R ENAL, MG, URIC #### [facility] [address] [address] [address] Rizwan Fernando WBC 0-2 Abnormal NONE SEEN [facility] Comment on above: Performed By: #### R ENAL, MG, URIC #### [facility] [address] [address] [address] Rizwan Fernando URIC ACID SERUMon 12-04-2021 Urate [Mass/Vol] 5.5 mg/dL Normal 2.6-6.0 [facility] Comment on above: Performed By: #### R ENAL, MG, URIC #### [facility] [address] [address] [address] Rizwan Fernando URINE T PROTEIN CREAT RATIOo n 12-04-2021 Protein (U) [Mass/Vol] 10.7 mg/dL Normal <=12.0 [facility] Comment on above: Performed By: #### R ENAL MG, URIC #### [facility] [address] [place] [address] Dr. Rizwan Fernando UR PROT CREAT RAT 0.18 Normal [facility] Comment on above: Performed By: #### R ENAL MG, URIC #### [facility] [address] [address] [address] Rizwan Fernando URINE CREAT 59.94 mg/dL Normal 20.00-300.[address] [facility] Comment on above: Performed By: #### R ENREANNA MG, URIC #### [facility] [address] [place] [address] Dr. Rizwan Fernando VITAMIN B12on 12-04-2021 Cobalamin (Vitamin B12) [Mass/Vol] 1679.0 pg/mL Critically high 193.0-986.0 [facility] Comment on above: Performed By: #### V ITB12 #### [facility] [address] [place] [address] Dr. Rizwan Fernando VITAMIN D 25 OHon 12-04-2021 VIT D 25-OH 38.3 ng/mL Normal [facility] Comment on above: Performed By: #### R ENREANNA MG, URIC #### [facility] [address] [place] [address] Dr. Rizwan Fernando VIT D RANGES SEE BELOW Normal [facility] Comment on above: Result Comment: <20 ng/mL Vit D deficient 20 - <30 ng/mL Vit D insufficient 30 - 100 ng/mL Vit D sufficient >100 ng/mL Potential Toxicity Performed By: #### R ENAL, MG, URIC #### [facility] [address] [place] [address] Dr. Rizwan Fernando OVA AND PARASITE EXAMINATION on 06-25-2021 Ova + Parasite Exam Final report Normal [facility] Comment on above: Result Comment: Thes e results were obtained using wet preparation(s) and trichrome stained smear. This test does not include testing for Cryptosporidium parvum, Cyclospora, or Microsporidia. Performed By: #### R ENAL, MG, URIC #### [facility] [address] [address] [address] Rizwan Fernando Result 1 Comment Normal [facility] Comment on above: Result Comment: No o va, cysts, or parasites seen. . One negative specimen does not rule out the possibility of a parasitic infection. Performed By: #### R ENAL, MG, URIC #### [facility] [address] [address] [address] Rizwan Fernando A1C HEMOGLOBINon 06-23-2021 HbA1c (Bld) [Mass fraction] 6.1 % [email or web address] Other Glucose - FINGER STICKon Glucose [Mass/Vol] 153 mg/dL [employer] Other HbA1c (Bld) [Mass fraction]o n 06-23-2021 A1C HEMOGLOBIN [employer] Other STOOL CULTUREon 06-21-2021 Campylobacter Culture Final report Normal [facility] Comment on above: Performed By: #### C XSTOOL #### [facility] [address] [place] [address] Dr. Rizwan Fernando E coli Shiga Toxin EIA Negative Normal Negative [facility] Comment on above: Performed By: #### C XSTOOL #### [facility] [address] [place] [address] Dr. Rizwan Fernando Result 1 Comment Normal [facility] Comment on above: Result Comment: No S almonella or Shigella recovered. Performed By: #### C XSTOOL #### [facility] [address] [address] [address] Rizwan Fernando Result Comment: No C ampylobacter species isolated. Salmonella/Shigell a Screen Final report Normal [facility] Comment on above: Performed By: #### C XSTOOL #### [facility] [address] [place] [address] Dr. Rizwan Fernando C. DIFF PCRon 06-18-2021 C. DIFFICILE PCR Negative Normal NEGATIVE [facility] Comment on above: Performed By: #### R ENAL, MG, URIC #### [facility] [address] [place] [address] Dr. Rizwan Fernando OCC BLD IMMUNOASSAYon 2021 OCCULT BLOOD Negative Normal NEGATIVE [facility] Comment on above: Performed By: #### R ENAL, MG, URIC #### [facility] [address] [place] [address] Dr. Rizwan Fernando FERRITINon 06-12-2021 Ferritin [Mass/Vol] 64.0 ng/mL Normal 11.1-264.0 [facility] Comment on above: Performed By: #### R ENAL, MG, URIC #### [facility] [address] [place] [address] Dr. Rizwan Fernando HEMOGRAM AND PLATELon 2021 Hematocrit (Bld) [Volume fraction] 39.1 % Normal 36.0-48.0 [facility] Comment on above: Performed By: #### R ENAL, MG, URIC #### [facility] [address] [place] [address] Dr. Rizwan Fernando Hemoglobin (Bld) [Mass/Vol] 12.6 g/dL Normal 12.0-16.0 [facility] Comment on above: Performed By: #### R ENAL, MG, URIC #### [facility] [address] [place] [address] Dr. Rizwan Fernando MCH (RBC) [Entitic mass] 28.3 pg Normal 26.7-34.0 [facility] Comment on above: Performed By: #### R ENAL, MG, URIC #### [facility] [address] [place] [address] Dr. Rizwan Fernando MCHC (RBC) [Mass/Vol] 32.2 g/dL Normal 29.9-35.2 [facility] Comment on above: Performed By: #### R ENAL, MG, URIC #### [facility] [address] [place] [address] Dr. Rizwan Fernando MCV (RBC) [Entitic vol] 87.9 fL Normal 81.0-99.0 [facility] Comment on above: Performed By: #### R ENAL, MG, URIC #### [facility] [address] [address] [address] Rizwan Fernando PLT 181 103/ul Normal 150-450 [facility] Comment on above: Performed By: #### R ENAL, MG, URIC #### [facility] [address] [place] [address] Dr. Rizwan Fernando RBC 4.45 106/ul Normal 4.20-5.40 [facility] Comment on above: Performed By: #### R ENAL, MG, URIC #### [facility] [address] [place] [address] Dr. Rizwan Fernando WBC 7.3 103/ul Normal 4.0-11.0 [facility] Comment on above: Performed By: #### R ENAL, MG, URIC #### [facility] [address] [place] [address] Dr. Rizwan Fernando IRON AND TIBCon 06-12-2021 % SATURATION 19.4 % Normal [facility] Comment on above: Performed By: #### R ENAL, MG, URIC #### [facility] [address] [place] [address] Dr. Rizwan Fernando Iron [Mass/Vol] 55.0 ug/dL Normal 37.0-170.0 [facility] Comment on above: Performed By: #### R ENAL, MG, URIC #### [facility] [address] [place] [address] Dr. Rizwan Fernando TIBC DIRECT 284.0 ug/dL Normal 261.0-497.0 [facility] Comment on above: Performed By: #### R ENAL, MG, URIC #### [facility] [address] [place] [address] Dr. Rizwan Fernando MAGNESIUMon 06-12-2021 Magnesium [Mass/Vol] 1.9 mg/dL Normal 1.6-2.3 [facility] Comment on above: Performed By: #### R ENAL, MG, URIC #### [facility] [address] [place] [address] Dr. Rizwan Fernando RENAL FUNCTION PANELon 06-12 Albumin [Mass/Vol] 3.8 g/dL Normal 3.4-5.0 [facility] Comment on above: Performed By: #### R ENAL, MG, URIC #### [facility] [address] [address] [address] Rizwan Fernando Calcium [Mass/Vol] 8.6 mg/dL Normal 8.5-10.1 [facility] Comment on above: Performed By: #### R ENAL, MG, URIC #### [facility] [address] [address] [address] Rizwan Fernando Chloride [Moles/Vol] 102 mmol/L Normal 98-107 [facility] Comment on above: Performed By: #### R ENAL, MG, URIC #### [facility] [address] [address] [address] Rizwan Fernando CO2 [Moles/Vol] 31.2 mmol/L Critically high 22.0-30.0 [facility] Comment on above: Performed By: #### R ENAL, MG, URIC #### [facility] [address] [address] [address] Rizwan Fernando Creatinine [Mass/Vol] 1.07 mg/dL Critically high 0.52-1.04 [facility] Comment on above: Performed By: #### R ENAL, MG, URIC #### [facility] [address] [address] [address] Rizwan Fernando EGFR-AF BRITISH >60 Normal >=60 [facility] Comment on above: Performed By: #### R ENAL, MG, URIC #### [facility] [address] [address] [address] Rizwan Fernando EGFR-NON AF BRITISH 50 mL/min/1.73m2 Critically low >=60 [facility] Comment on above: Performed By: #### R ENAL, MG, URIC #### [facility] [address] [address] [address] Rizwan Fernando Glucose [Mass/Vol] 122 mg/dL Critically high 74-106 [facility] Comment on above: Performed By: #### R ENAL, MG, URIC #### [facility] [address] [place] [address] Dr. Rizwan Fernando Phosphate [Mass/Vol] 4.6 mg/dL Critically high 2.5-4.5 [facility] Comment on above: Performed By: #### R ENAL, MG, URIC #### [facility] [address] [place] [address] Dr. Rizwan Fernando Potassium [Moles/Vol] 4.1 mmol/L Normal 3.4-5.0 [facility] Comment on above: Performed By: #### R ENAL, MG, URIC #### [facility] [address] [place] [address] Dr. Rizwan Fernando Sodium [Moles/Vol] 138 mmol/L Normal 137-145 [facility] Comment on above: Performed By: #### R ENAL, MG, URIC #### [facility] [address] [place] [address] Dr. Rizwan Fernando Urea nitrogen [Mass/Vol] 27.0 mg/dL Critically high 7.0-18.0 [facility] Comment on above: Performed By: #### R ENAL, MG, URIC #### [facility] [address] [place] [address] Dr. Rizwan Fernando UA RANDOM W/MICROSCOPICon BACTERIA NONE SEEN Normal NONE SEEN [facility] Comment on above: Performed By: #### U AMIC #### [facility] [address] [place] [address] Dr. Rizwan Fernando Bilirubin Ql (U) Negative Normal NEGATIVE [facility] Comment on above: Performed By: #### U AMIC #### [facility] [address] [place] [address] Dr. Rizwan Fernando CAST NONE SEEN Normal NONE SEEN [facility] Comment on above: Performed By: #### U AMIC #### [facility] [address] [place] [address] Dr. Rizwan Fernando Clarity (U) CLEAR Normal CLEAR [facility] Comment on above: Performed By: #### U AMIC #### [facility] [address] [address] [address] Rizwan Fernando Color (U) LT. YELLOW Normal YELLOW [facility] Comment on above: Performed By: #### U AMIC #### [facility] [address] [address] [address] Rizwan Fernando Crystals LM Nom (Urine sed) NONE SEEN Normal NONE SEEN [facility] Comment on above: Performed By: #### U AMIC #### [facility] [address] [address] [address] Rizwan Fernando Epithelial cells LM Ql (Urine sed) RARE Normal NONE SEEN /RARE [facility] Comment on above: Performed By: #### U AMIC #### [facility] [address] [address] [address] Rizwan Fernando Glucose Ql (U) Negative Normal NEGATIVE [facility] Comment on above: Performed By: #### U AMIC #### [facility] [address] [address] [address] Rizwan Fernando Hemoglobin Ql (U) Negative Normal NEGATIVE [facility] Comment on above: Performed By: #### U AMIC #### [facility] [address] [address] [address] Rizwan Fernando Ketones Ql (U) Negative Normal NEGATIVE [facility] Comment on above: Performed By: #### U AMIC #### [facility] [address] [address] [address] Rizwan Fernando LEUKOCYTES Negative Normal NEGATIVE [facility] Comment on above: Performed By: #### U AMIC #### [facility] [address] [address] [address] Rizwan Fernando MUCOUS NONE SEEN Normal NONE SEEN [facility] Comment on above: Performed By: #### U AMIC #### [facility] [address] [address] [address] Rizwan Fernando Nitrite Ql (U) Negative Normal NEGATIVE [facility] Comment on above: Performed By: #### U AMIC #### [facility] [address] [place] [address] Dr. Rizwan Fernando pH (U) 6.0 [pH] Normal 5-9 [facility] Comment on above: Performed By: #### U AMIC #### [facility] [address] [place] [address] Dr. iRzwan Fernando RBC NONE SEEN Abnormal 0-2 [facility] Comment on above: Performed By: #### U AMIC #### [facility] [address] [place] [address] Dr. Rizwan Fernando SPEC GRAVITY 1.010 Normal 1.005-<=1.025 [facility] Comment on above: Performed By: #### U AMIC #### [facility] [address] [place] [address] Dr. Rizwan Fernando TRICH NONE SEEN Normal NONE SEEN [facility] Comment on above: Performed By: #### U AMIC #### [facility] [address] [place] [address] Dr. Rizwan Fernando UA PROTEIN Negative Normal NEGATIVE/ TRACE [facility] Comment on above: Performed By: #### U AMIC #### [facility] [address] [place] [address] Dr. Rizwan Fernando Urobilinogen Qn (U) 0.2 {Wil'U}/dL Normal 0.2 - 1.0 [facility] Comment on above: Performed By: #### U AMIC #### [facility] [address] [place] [address] Dr. Rizwan Fernando WBC NONE SEEN Normal NONE SEEN [facility] Comment on above: Performed By: #### U AMIC #### [facility] [address] [place] [address] Dr. Rizwan Fernando YEAST NONE SEEN Normal NONE SEEN [facility] Comment on above: Performed By: #### U AMIC #### [facility] [address] [place] [address] Dr. Rizwan Fernando URIC ACID SERUMon 06-12-2021 Urate [Mass/Vol] 5.5 mg/dL Normal 2.5-6.2 [facility] Comment on above: Performed By: #### R ENAL, MG, URIC #### [facility] [address] [address] [address] Rizwan Fernando URINE T PROTEIN CREAT RATIOo n 06-12-2021 Protein (U) [Mass/Vol] 17.5 mg/dL Critically high <=12.0 [facility] Comment on above: Performed By: #### R ENAL, MG, URIC #### [facility] [address] [address] [address] Rizwan Fernando UR PROT CREAT RAT 0.23 Normal [facility] Comment on above: Performed By: #### R ENAL, MG, URIC #### [facility] [address] [address] [address] Rizwan Fernando URINE CREAT 76.34 mg/dL Normal 20.00-300.[address] [facility] Comment on above: Performed By: #### R ENAL, MG, URIC #### [facility] [address] [address] [address] Rizwan Fernando VITAMIN D 25 OHon 06-12-2021 VIT D 25-OH 41.1 ng/mL Normal [facility] Comment on above: Performed By: #### R ENAL, MG, URIC #### [facility] [address] [address] [address] Rizwan Fernando VIT D RANGES SEE BELOW Normal [facility] Comment on above: Result Comment: <20 ng/mL Vit D deficient 20 - <30 ng/mL Vit D insufficient 30 - 100 ng/mL Vit D sufficient >100 ng/mL Potential Toxicity Performed By: #### R ENAL, MG, URIC #### [facility] [address] [address] [address] Rizwan Fernando A1C HEMOGLOBINon 12-17-2020 HbA1c (Bld) [Mass fraction] 5.8 % [employer] Other Glucose - FINGER STICKon Glucose [Mass/Vol] 182 mg/dL [employer] Other HbA1c (Bld) [Mass fraction]o n 12-17-2020 A1C HEMOGLOBIN [employer] Other LOWER EXTREMITY JOINT SURVEY on 09-21-2016 LOWER EXTREMITY JOINT [facility] [id number] [place] [address] Patient Name: ASHLEY WANG : 1945Sex: FAge: Race: WhiteMRN: [id number]. Location: 84Patient Status: OVisit #: [id number] Date: 09/21/2016 9:05:00 AMCompleted Date: 09/21/2016 09:04 AMRequesting Provider: SULY SANTOS Attending Provider: SULY SANTOS Report Copy To: Signs & Symptoms: Z96.659 Presence of unspecified artificial knee joint [id number]: AthenaComments: , , , Ordering Provider - SULY SANTOS MD , Rendering Provider - SULY SANTOS MD , Exam: LOWER EXTREMITY JOINT SURVEYAccession #: [id number] LOW ER EXTREMITY JOINT SURVEY 09/21/2016 9:04 AM EDT SIGNS AND SYMPTOMS: Z96.659 Presence of unspecified artificial knee joint I10 TECHNOLOGIST COMMENTS: ortho follow up rigoberto knee pain, history of knee replacements 3 yrs ago and 2 yrs ago, QUESTION FOR THE RADIOLOGIST: , , , Ordering Provider - SULY SANTOS MD , Rendering Provider - SULY SANTOS MD , PROTOCOL: Multiple segmental images were obtained and stitching software was utilized to acquire an AP view of the lower extremities in a standing position. COMPARISON: Knees April 29, 2016. 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 4 degrees of valgus are present at the right knee.The left femur measures 46.0 cm and the left tibia measures 38.1 cm. The left lower extremity has 6 degrees of valgus. IMPRESSION: Lower extremity joint survey as described post bilateral total knees. Electronically signed by:Donald Engle. Transcribed by: [email or web address], User Resident: Electronically Signed by: DONALD ENGLE @ 09/21/2016 11:55 AM Normal [facility] Comment on above: Order Comment: , , = ========= , Ordering Provider - SULY SANTOS MD , Rendering Provider - SULY SANTOS MD , Vital Signs Date Time Vital Sign Value Performing Clinician Facility 04-13-2023 14:11-0500 Body height 161.3 cm Markus Baer DPM Work Phone: [facility] 04-13-2023 14:11-0500 Body mass index (BMI) [Ratio] 35.57 kg/m2 Markus Baer DPM Work Phone: [facility] 04-13-2023 14:11-0500 Body weight 92.53 kg Markus Baer DPM Work Phone: [facility] 03-31-2023 14:15-0500 Body height 162.56 cm PHYSICIAN NO [facility] 03-31-2023 14:15-0500 Body weight 93.53 kg PHYSICIAN NO [facility] 03-31-2023 14:15-0500 Diastolic blood pressure 70 mm[Hg] PHYSICIAN NO [facility] 03-31-2023 14:15-0500 Systolic blood pressure 120 mm[Hg] PHYSICIAN NO [facility] 12-14-2022 14:40-0400 Body height 162.56 cm Eboni White Other [facility] 12-14-2022 14:40-0400 Body mass index (BMI) [Ratio] 37.62 kg/m2 Eboni Buck Other [facility] 12-14-2022 14:40-0400 Body temperature 96.3 [degF] Eboni Buck Other [facility] Other 12-14-2022 14:40-0400 Body weight 99.43 kg Eboni Buck Other [facility] 12-14-2022 14:40-0400 Diastolic blood pressure 80 mm[Hg] Eboni Buck Other [facility] 12-14-2022 14:40-0400 Respiratory rate 18 /min Eboni Buck Other [facility] 12-14-2022 14:40-0400 SaO2% (BldA) [Mass fraction] 98 % Eobni Buck Other [facility] Other 12-14-2022 14:40-0400 Systolic blood pressure 120 mm[Hg] Eboni Buck Other [facility] Other 09-29-2022 14:45-0400 Body height 162.56 cm Tondra Mapus Other [facility] Other 09-29-2022 14:45-0400 Body mass index (BMI) [Ratio] 37.38 kg/m2 Tondra Mapus Other [facility] Other 09-29-2022 14:45-0400 Body weight 98.79 kg Tondra Mapus Other [facility] Other 09-29-2022 14:45-0400 Diastolic blood pressure 85 mm[Hg] Tondra Mapus Other [facility] Other 09-29-2022 14:45-0400 Respiratory rate 18 /min Tondra Mapus Other [facility] Other 09-29-2022 14:45-0400 SaO2% (BldA) [Mass fraction] 99 % Tondra Mapus Other [facility] Other 09-29-2022 14:45-0400 Systolic blood pressure 149 mm[Hg] Tondra Mapus Other [facility] Other 06-08-2022 15:00-0400 Body height 162.56 cm Eboni Buck Other [facility] Other 06-08-2022 15:00-0400 Body mass index (BMI) [Ratio] 37.83 kg/m2 Eboni Buck Other [facility] Other 06-08-2022 15:00-0400 Body weight 99.97 kg Eboni Buck Other [facility] Other 06-08-2022 15:00-0400 Diastolic blood pressure 78 mm[Hg] Eboni Buck Other [facility] Other 06-08-2022 15:00-0400 Respiratory rate 18 /min Eboni Buck Other [facility] Other 06-08-2022 15:00-0400 SaO2% (BldA) [Mass fraction] 97 % Eboni Buck Other [facility] Other 06-08-2022 15:00-0400 Systolic blood pressure 136 mm[Hg] Eboni Buck Other [facility] Other 03-31-2022 16:45-0500 Body height 162.56 cm Tondra Mapus Other [facility] Other 03-31-2022 16:45-0500 Body mass index (BMI) [Ratio] 37.96 kg/m2 Tondra Mapus Other [facility] Other 03-31-2022 16:45-0500 Body weight 100.34 kg Tondra Mapus Other [facility] Other 03-31-2022 16:45-0500 Diastolic blood pressure 83 mm[Hg] Tondra Mapus Other [facility] Other 03-31-2022 16:45-0500 Respiratory rate 18 /min Tondra Mapus Other [facility] Other 03-31-2022 16:45-0500 SaO2% (BldA) [Mass fraction] 97 % Tondra Mapus Other [facility] Other 03-31-2022 16:45-0500 Systolic blood pressure 151 mm[Hg] Tondra Mapus Other [facility] Other 12-21-2021 15:00-0400 Body height 162.56 cm Tondra Mapus Other [facility] Other 12-21-2021 15:00-0400 Body mass index (BMI) [Ratio] 37.76 kg/m2 Tondra Mapus Other [facility] Other 12-21-2021 15:00-0400 Body weight 99.79 kg Tondra Mapus Other [facility] Other 12-21-2021 15:00-0400 Diastolic blood pressure 81 mm[Hg] Tondra Mapus Other [facility] Other 12-21-2021 15:00-0400 Respiratory rate 20 /min Tondra Mapus Other [facility] Other 12-21-2021 15:00-0400 SaO2% (BldA) [Mass fraction] 99 % Tondra Mapus Other [facility] Other 12-21-2021 15:00-0400 Systolic blood pressure 141 mm[Hg] Tondra Mapus Other [facility] Other 12-14-2021 15:20-0400 Body height 162.56 cm Eboni Buck Other [facility] Other 12-14-2021 15:20-0400 Body mass index (BMI) [Ratio] 37.66 kg/m2 Eboni Buck Other [facility] Other 12-14-2021 15:20-0400 Body temperature 96.7 [degF] Eboni Buck Other [facility] Other 12-14-2021 15:20-0400 Body weight 99.52 kg Eboni Buck Other [facility] Other 12-14-2021 15:20-0400 Diastolic blood pressure 87 mm[Hg] Eboni Buck Other [facility] Other 12-14-2021 15:20-0400 Respiratory rate 18 /min Eboni Buck Other [facility] Other 12-14-2021 15:20-0400 SaO2% (BldA) [Mass fraction] 96 % Eboni Buck Other [facility] Other 12-14-2021 15:20-0400 Systolic blood pressure 153 mm[Hg] Eboni Buck Other [facility] Other 09-23-2021 10:55-0400 Body height 162.56 cm Kristin Aminmond Other [facility] Other 09-23-2021 10:55-0400 Body mass index (BMI) [Ratio] 37.24 kg/m2 Kristin Aminmond Other [facility] Other 09-23-2021 10:55-0400 Body temperature 99.2 [degF] Kristin Janae Other [facility] Other 09-23-2021 10:55-0400 Body weight 98.43 kg Kristin Janae Other [facility] Other 09-23-2021 10:55-0400 Diastolic blood pressure 74 mm[Hg] Kristin Janae Other [facility] Other 09-23-2021 10:55-0400 Respiratory rate 18 /min Kristin Janae Other [facility] Other 09-23-2021 10:55-0400 SaO2% (BldA) [Mass fraction] 98 % Kristin Cardoso Other [facility] Other 09-23-2021 10:55-0400 Systolic blood pressure 129 mm[Hg] Kristin Cardoso Other [facility] Other 06-23-2021 15:30-0400 Body height 162.56 cm Tondra Mapus Other [facility] Other 06-23-2021 15:30-0400 Body mass index (BMI) [Ratio] 37.59 kg/m2 Tondra Mapus Other [facility] Other 06-23-2021 15:30-0400 Body weight 99.34 kg Tondra Mapus Other [facility] Other 06-23-2021 15:30-0400 Diastolic blood pressure 76 mm[Hg] Tondra Mapus Other [facility] Other 06-23-2021 15:30-0400 Respiratory rate 16 /min Tondra Mapus Other [facility] Other 06-23-2021 15:30-0400 SaO2% (BldA) [Mass fraction] 99 % Tondra Mapus Other [facility] Other 06-23-2021 15:30-0400 Systolic blood pressure 121 mm[Hg] Tondra Mapus Other [facility] Other 06-17-2021 15:00-0400 Body height 162.56 cm Eboni Buck Other [facility] Other 06-17-2021 15:00-0400 Body mass index (BMI) [Ratio] 37.59 kg/m2 Eboni Buck Other [facility] Other 06-17-2021 15:00-0400 Body temperature 97.2 [degF] Eboni Buck Other [facility] Other 06-17-2021 15:00-0400 Body weight 99.34 kg Eboni Buck Other [facility] Other 06-17-2021 15:00-0400 Diastolic blood pressure 81 mm[Hg] Eboni Buck Other [facility] Other 06-17-2021 15:00-0400 Respiratory rate 18 /min Eboni Buck Other [facility] Other 06-17-2021 15:00-0400 SaO2% (BldA) [Mass fraction] 95 % Eboni Buck Other [facility] Other 06-17-2021 15:00-0400 Systolic blood pressure 137 mm[Hg] Eboni Buck Other [facility] Other 12-23-2020 14:40-0400 Body height 162.56 cm Eboni Buck Other [facility] Other 12-23-2020 14:40-0400 Body mass index (BMI) [Ratio] 38.21 kg/m2 Eboni Buck Other [facility] Other 12-23-2020 14:40-0400 Body temperature 97.3 [degF] Eboni Buck Other [facility] Other 12-23-2020 14:40-0400 Body weight 100.97 kg Eboni Buck Other [facility] Other 12-23-2020 14:40-0400 Diastolic blood pressure 83 mm[Hg] Eboni Buck Other [facility] Other 12-23-2020 14:40-0400 Respiratory rate 18 /min Eboni Buck Other [facility] Other 12-23-2020 14:40-0400 SaO2% (BldA) [Mass fraction] 93 % Eboni Buck Other [facility] Other 12-23-2020 14:40-0400 Systolic blood pressure 127 mm[Hg] Eboni Buck Other [facility] Other 12-17-2020 15:15-0400 Body height 162.56 cm Tondra Mapus Other [facility] Other 12-17-2020 15:15-0400 Body mass index (BMI) [Ratio] 37.76 kg/m2 Tondra Mapus Other [facility] Other 12-17-2020 15:15-0400 Body weight 99.79 kg Tondra Mapus Other [facility] Other 12-17-2020 15:15-0400 Diastolic blood pressure 80 mm[Hg] Tondra Mapus Other [facility] Other 12-17-2020 15:15-0400 Respiratory rate 20 /min Tondra Mapus Other [facility] Other 12-17-2020 15:15-0400 SaO2% (BldA) [Mass fraction] 97 % Tondra Mapus Other [facility] Other 12-17-2020 15:15-0400 Systolic blood pressure 133 mm[Hg] Tondra Mapus Other [facility] Other Encounters Encounter Date Encounter Type Care Provider Facility Start: 04-13-2023 End: 04-13-2023 ambulatory MARKUS BAER Not Available Start: 04-13-2023 End: 04-13-2023 Patient encounter procedure Markus Baer DPM Work Phone: [facility] Comment on above: Dermatophytosis of n ail (Primary Dx); Dystrophic nail; Pain around toenail, right foot; Pain around toenail, left foot Start: 04-13-2023 Bamboo flowsheet Markus London er DPM Work Phone: [facility] Start: 04-13-2023 Bamboo flowsheet Markus London er DPM Work Phone: [facility] Start: 03-31-2023 End: 04-01-2023 ambulatory Tondra K Mapus Facility:[facility] Start: 03-31-2023 End: 03-31-2023 ambulatory PHYSICIAN NO [facility] Work Phone: Start: 03-31-2023 End: 03-31-2023 Discharged Recurring PHYSICIAN NO [facility] Work Phone: Start: 03-31-2023 End: 03-31-2023 Patient encounter procedure PHYSICIAN [facility]- Start: 03-28-2023 End: 03-28-2023 ambulatory DANA AICHHOLZ Not Available Start: 03-28-2023 Patient encounter procedure Markus Baer DPM Work Phone: [facility] Start: 03-25-2023 End: 03-26-2023 ambulatory TONDRA K MAPUS [facility] Start: 03-03-2023 End: 03-03-2023 ambulatory Eboni Buck Other [facility] Other Start: 03-03-2023 Telephone encounter Eboni Buck [facility] Start: 02-07-2023 End: 02-07-2023 ambulatory DANA AICHHOLZ Not Available Start: 01-11-2023 End: 01-11-2023 ambulatory MARKUS BAER Not Available Start: 12-14-2022 End: 12-14-2022 ambulatory Eboni Buck Other [facility] Other Start: 12-14-2022 Office outpatient vi sit 15 minutes Eboni Buck [facility] Start: 09-29-2022 (DM) Diabetes Tondra Sadaf [facility] Start: 09-29-2022 End: 09-29-2022 ambulatory Tondra Mapus Other [facility] Other Start: 09-03-2022 End: 09-03-2022 ambulatory Tondra Mapus Other [facility] Other Start: 09-03-2022 Telephone encounter Tondra Mapus [facility] Start: 06-08-2022 End: 06-08-2022 ambulatory Eboni Buck Other [facility] Other Start: 06-08-2022 Office outpatient vi sit 25 minutes Eboni Buck [facility] Start: 06-02-2022 End: 06-03-2022 ambulatory EBONI BUCK Facility:[facility] Start: 04-01-2022 End: 04-01-2022 ambulatory Tondra Mapus Other [facility] Other Start: 04-01-2022 Telephone encounter Tondra Mapus [facility] Start: 03-31-2022 (DM) Diabetes Tondra Mapus [facility] Start: 03-31-2022 End: 03-31-2022 ambulatory Tondra Mapus Other [facility] Other Start: 03-31-2022 Telephone encounter Eboni Buck [facility] Start: 03-30-2022 End: 03-31-2022 ambulatory TONDRA MAPUS Facility:[facility] Start: 02-05-2022 End: 02-06-2022 ambulatory WAGE AND SALARY ADMINISTRATOR DANA ADRIÁNVIOLETZ Facility:[facility] Start: 01-14-2022 End: 01-14-2022 ambulatory Eboni Buck Other [facility] Other Start: 01-14-2022 Telephone encounter Eboni Buck [facility] Start: 12-29-2021 End: 12-29-2021 ambulatory Eboni Buck Other [facility] Other Start: 12-29-2021 Telephone encounter Eboni Buck [facility] Start: 12-22-2021 End: 12-23-2021 ambulatory EBONI BUCK Facility:[facility] Start: 12-21-2021 (DM) Diabetes Tondra Mapus [facility] Start: 12-21-2021 End: 12-21-2021 ambulatory Tondra Mapus Other [facility] Other Start: 12-14-2021 End: 12-14-2021 ambulatory Eboni Buck Other [facility] Other Start: 12-14-2021 Office outpatient vi sit 25 minutes Eboni Buck [facility] Start: 12-04-2021 End: 12-05-2021 ambulatory TONDRA MAPUS Facility:[facility] Start: 09-23-2021 End: 09-23-2021 ambulatory Kristin Cardoso Other [facility] Other Start: 09-23-2021 Office outpatient vi sit 15 minutes Kristin Janae [facility] Start: 06-23-2021 (DM) Diabetes Tondra Mapus [facility] Start: 06-23-2021 End: 06-23-2021 ambulatory Tondra Mapus Other [facility] Other Start: 06-18-2021 End: 06-18-2021 ambulatory LIZETTE TAPIA Facility:[facility] Start: 06-17-2021 End: 06-17-2021 ambulatory LIZETTE TAPIA [facility] Other Start: 06-17-2021 Office outpatient vi sit 25 minutes Eboni Buck [facility] Start: 06-12-2021 End: 06-13-2021 ambulatory EBONI BUCK Facility:[facility] Start: 06-09-2021 End: 06-09-2021 ambulatory Tondra Mapus Other [facility] Other Start: 06-09-2021 Telephone encounter Tondra Mapus [facility] Start: 12-23-2020 Office outpatient vi sit 15 minutes Eboni Buck [facility] Start: 12-17-2020 (DM) Diabetes Tondra Mapus [facility] Start: 12-05-2020 ([facility] C Vac) [facility] Co vid Vaccine Natalee Camacho [facility] Start: 09-21-2016 End: 09-22-2016 Ambulatory SULY SANTOS Facility:[facility] Plan of Treatment Date Care Activity Detail Author Start: 12-10-2024 Glaucoma screening Diabetes: R etinopathy Screening [facility] Start: 03-28-2024 Medicare Annual Well ness (AWV) Medicare Annual Wellness (AWV) [facility] Start: 09-26-2023 End: 09-26-2023 Patient encounter procedure 09/26/2023 2:20 PM EDT [facility] [address] [place] [address] Dana Tapia, CHENTE [address] [place] [address] [facility] Start: 07-12-2023 End: 07-12-2023 Patient encounter procedure 07/12/2023 2:15 PM EDT Procedure Visit [facility] [address] [place] [id number] Markus Baer, DPM [address] [place] [address] [facility] Start: 06-29-2023 Hemoglobin A1c measurement Diabetes: Hemoglobin A1C [facility] Start: 04-13-2023 End: 04-13-2023 Patient encounter procedure 04/13/2023 2:15 PM EST Procedure Visit [facility] [address] [place] [phone] Markus aBer, DPM [address] [place] [address] Arrived [facility] Comment on above: Arrived Immunizations Immunization Date Immunization Notes Care Provider Fa cility 12-05-2020 COVID-19 Pfizer Natalee Fitt Other [facility] 04-25-2020 COVID-19 Vaccine Pfi zer - Documentation Purposes Only Natalee Fitt Other [facility] 04-03-2020 COVID-19 Vaccine Pfi zer - Documentation Purposes Only Natalee Fitt Other [facility] Payers Date Payer Category Payer Unknown AARP AARP [id number] 2022-Present [address] [place] [address] [id number] 2018 Self-pay [id number] 2012 Medicare MEDICARE MEDICAR E PART B [id number] 2012-[place] [address] Medicare [id number] 1959 Medicare [id number] 1959 Unknown [id number] 1947 Unknown [id number] [id number] 1947 Unknown [id number] [id number] 1947 Unknown [id number] 2.16.840.1.858160.3.579.2.593 1947 Unknown [id number] 2.16.840.1.778168.3.579.2.593 1947 Unknown [id number] 2.16.840.1.259638.3.579.2.593 1947 Unknown [id number] 2.16.840.1.168739.3.579.2.593 1947 Unknown [id number] 2.16.840.1.528246.3.579.2.593 1947 Unknown [id number] 2.16.840.1.748731.3.579.2.593 1947 Unknown [id number] 2.16.840.1.795666.3.579.2.593 1947 Unknown [id number] [id number] 1947 Unknown [id number] 2.16.840.1.060609.3.579.2.1259 1947 Unknown [id number] 2.16.840.1.612187.3.579.2.1259 1947 Unknown [id number] 2.16.840.1.977744.3.579.2.1259 1947 Unknown [id number] [id number] Medicare [id number] Unknown [id number] Social History Date Type Detail Facility Unknown if ever smoked [facility] Other Start: 03-28-2023 End: 04-13-2023 Sex Assigned At [facility] Start: 10-06-2022 Tobacco smoking status VAIS Never smoked tobacco [facility] Start: 10-06-2022 Tobacco use and exposure Smokeless tobacco non-user [facility] Start: 03-28-2023 End: 04-13-2023 Alcohol intake Current drinker of alcohol (finding) [facility] Start: 03-28-2023 End: 04-13-2023 Alcohol intake [facility] Within the last year , have you been afraid of your partner or ex-partner? No [facility] Do you belong to any clubs or organizations such as methodist groups, unions, fraternal or athletic groups, or school groups? Yes [facility] Are you now , , , , never or living with a partner? [facility] How often to you hav e a drink containing alcohol? Never [facility] How many standard dr inks containing alcohol do you have on a typical day? Patient does not drink [facility] Do you feel stress - tense, restless, nervous, or anxious, or unable to sleep at night because your mind is troubled all the time - these days [OSQ] Only a little [facility] (I/We) worried wheth er (my/our) food would run out before (I/we) got money to buy more. Never true [facility] Start: 10-06-2022 Alcohol Comment Caffeine intake: 1-2 cups per day tea [facility] Start: 1945 Sex Assigned At Not on file [facility] Start: 1945 Sex Assigned At Female [facility] Medical Equipment Procedure Code Equipment Code Equipment Origin al Text Equipment Identifier Dates [id number] Start: 06-28-2022 Clinical Notes 12-05-2020 to 04-13-2023 Markus Baer DPM - 04/13/2023 2:15 PM ESTPatient Instructions Note Date & Type Note Facility 04-13-2023 History of Presen t illness Narrative Images from the original note were not included. Subjective Patient ID: Ashley Wang is a 78 y.o. female who presents for Nail care ( Ashley Wang is a 77 y.o. female who presents for Nail care. BS 120 A1C 6.0 (03/2023) LV Dr. Bernardino Talavera 04/05/2023 SS: 8.5-9).). HPI HPI Onychomycosis/Toenail Fungus: established pt presents requesting nail care. Symptomatic toenail deformity. Location: identifies multiple digits as problematic/symptomatic. Duration: chronic toenail deformity, multiple years duration. Severity of symptoms: mild-moderate; impacting her ability to wear shoes ccomfortably. Onset: gradual, without known injury or trauma. Status: gradual progressive deformity. Problematic/symptomatic over the past several weeks or so. Context: hard to trim, hard to reach; self-care is difficult, ineffective and not practical; significantly increasing risk exposure. Family members unable to provide effective care. Characteristics: discolored, thickened, pain , pressure , crusty; without bleeding or drainage. Relieved by: palliative care measures provide favorable transient symptom relief. Previous Treatment: patient remains well satisfied with palliative care and topical measures. Risk factors: type II diabetes. Aspirin therapy. Medical comorbidities. Polypharmacy. Mobility and flexibility restraints. Toenail deformity. Digital and/or shoe trauma and related complications. Aggravated by: shoe gear , pressure , walking; catching and snagging on clothing etc.. Medications Current Outpatient Medications: acetaminophen (Tylenol) 80 MG suppository, Insert into the rectum every 6 (six) hours if needed for mild pain or fever., Disp: , Rfl: alendronate (Fosamax) 70 MG tablet, Take 1 tablet (70 mg) by mouth every 7 (seven) days for 28 days Take in the morning with a full glass of water, on an empty stomach, and do not take anything else by mouth or lie down for the next 30 min., Disp: 4 tablet, Rfl: 5 amLODIPine (Norvasc) 5 MG tablet, Take 5 mg by mouth in the morning., Disp: , Rfl: Ascorbic Acid (vitamin C) 1000 MG tablet, 1 (one) time each day at the same time., Disp: , Rfl: aspirin 81 MG EC tablet, Take 81 mg by mouth in the morning., Disp: , Rfl: atorvastatin (Lipitor) 20 MG tablet, Take 1 tablet (20 mg) by mouth in the morning., Disp: 90 tablet, Rfl: 1 Calcium Carbonate-Vitamin D (CALTRATE 600+D PO), Caltrate 600+D, Disp: , Rfl: cetirizine (ZyrTEC) 10 MG tablet, 1 (one) time each day at the same time., Disp: , Rfl: cholecalciferol (Vitamin D-3) 50 MCG (2000 UT) tablet, Vitamin D3, Disp: , Rfl: Farxiga 5 MG, Take 5 mg by mouth in the morning., Disp: , Rfl: ferrous sulfate 325 (65 Fe) MG tablet, Take 1 tablet by mouth every other day., Disp: , Rfl: gabapentin (Neurontin) 100 MG capsule, , Disp: , Rfl: Kerendia 10 MG tablet, Take 10 mg by mouth in the morning., Disp: , Rfl: latanoprost (Xalatan) 0.005 % ophthalmic solution, INSTILL 1 DROP INTO BOTH EYES EVERY EVENING DIRECTED, Disp: , Rfl: losartan (Cozaar) 100 MG tablet, Take 1 tablet (100 mg) by mouth in the morning., Disp: 90 tablet, Rfl: 0 magnesium 250 MG tablet, 1 (one) time each day at the same time., Disp: , Rfl: melatonin tablet, Take by mouth at bedtime., Disp: , Rfl: meloxicam (Mobic) 15 MG tablet, , Disp: , Rfl: Multiple Vitamins-Minerals (One Daily For Women 50+ Adv) tablet, as directed Orally, Disp: , Rfl: omega-3 (fish oil) 1000 MG capsule, 1 capsule 1 (one) time each day at the same time., Disp: , Rfl: omeprazole (PriLOSEC) [address] capsule, , Disp: , Rfl: OneTouch Ultra test strip, 1 each by Other route if needed, Disp: , Rfl: sertraline (Zoloft) 50 MG tablet, Take 1 tablet (50 mg) by mouth in the morning., Disp: 90 tablet, Rfl: 1 Allergies Wound dressing adhesive and Sulfa antibiotics Past Surgical History Past Surgical History: Procedure Laterality Date BLEPHAROPLASTY Bilateral 04/03/2008 BUNIONECTOMY Bilateral CATARACT EXTRACTION Bilateral COLONOSCOPY 11/26/2011 ELBOW SURGERY Left spur removal HAND SURGERY Right thumb repair HERNIA REPAIR HIP SURGERY Right Hip bursectomy. Dr. 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 Mccann OTHER SURGICAL HISTORY 10/03/2018 SK Removal TONSILLECTOMY and adenoidectomy TOTAL KNEE ARTHROPLASTY Bilateral 2012,, 2014 Family History Family History Problem Relation Name Age of Onset Hyperlipidemia Mother Diabetes Mother Hypertension Mother Heart disease Mother Cancer Mother breast cancer Kidney disease Mother Osteoporosis Mother Diabetes Father Hypertension Father Heart disease Father Cancer Sister cervical Cancer Brother Liver cancer Diabetes Brother Objective General Examination: GENERAL EXAMINATIONalert and oriented. Pleasant disposition. Wearing SAS with accommodative orthoses. FOOT EXAM: Date of Last Foot Exam 04/13/2023 Sensory testing performed: sensations normal Sensory and motor testing performed: strength normal Pedal pulse taking performed: 2+ Vascular: DORSALIS PEDIS PULSE: 2/4, bilaterally. POSTERIOR TIBIAL PULSE: 2/4, bilaterally. TEMPERATURE GRADIENT: warm to warm. EDEMA:unremarkable for ankle edema. CAPILLARY FILLING TIME(sec): capillary fill intact bilateral digits less than 3 secs. HAIR GROWTH: present. Neurologic: SHARP SENSATION:tactile and light touch sensation intact. SEMMES-MOE 5.07 MONOFILAMENTintact localization multiple points plantarly. NEUROLOGIC light touch (normal). Dermatologic: SKIN FINDINGS:intact. Skin turgor is good. HYPERTROPHIC LESION:minimally raised, non-inflamed pinch callus lesion right great toe. NAIL PATHOLOGY: 2nd and 3rd digits bilateral: Toenail dystrophy, thickening, elongation, discoloration, mild clubbing, subtotal onycholysis, periungual hyperkeratosis, without drainage. Lunula involvement is noted. Bilateral great toes: Stable DSO/pincer toenail deformity. 5th digit right foot: Toenail dystrophy, thickening, discoloration and clinical mycosis. INGROWN NAIL PATHOLOGY:status post medial and lateral marginal matricectomy bilateral great toes. MYCOSIS SCALE:total with debris; 2nd digit right foot. INTERDIGITAL MACERATION:clean, dry, non-inflamed. ULCER:no sign of ulceration or open wound. Orthopedic: JOINT RANGE OF MOTION:demonstrates functiional ankle, subtalar and MTP joint range of motion. DEFORMITIES:status post HAV repair bilateral;mild HVI deformity bilateral great toes. Mild flexible hallux varus/malleolus deformity left. MUSCLE STRENGTHno focal deficits. Radiology: Assessment/Plan Symptomatic onychodystrophy/mycosis multiple digits. Status post medial and lateral marginal matricectomy bilateral great toes (Dr. Cooper). Type II diabetes. HAV repair bilateral (Dr. Cooper). Hepatitis A as a child Plan: Clinical Notes: conservative and palliative care measures are preferred, understood and again indicated. Agreeable to continue topical therapy: Use of vinegar and/or Listerine as directed; advised as to limited efficacy. Diabetic education and assessment. Hygiene and skin care and measures discussed. Procedure: Toenail Debridement: Aseptic technique: power/manual instrumentation: onychodebridement length and thickness, curretage of offending crypotic margins, carl-ungual debris, providing effective pressure and symptom relief, reducing shoe and digital trauma. This note was created with the assistance of a speech recognition program. While intending to generate a timely document that accurately reflects the content of the visit, no guarantee can be provided that every grammatical or spelling mistake has been or will be identified or corrected. Thank you for your understanding. 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 Continue current dose of the losartan and Amlodipine. Nov, Chronic kidney disease, stage III (moderate) (ICD-10 - N18.30) She has CKD due to DM and HTN with b/l serum Creatinine 1.1-1.3 mg/dl. Her renal ultrasound showed moderate bilateral cortical atrophy findings consistent with medical renal disease. I have explained to her the potential risk of worsening renal function due to prolonged use of Meloxican and Omeprazole. She would like to continue it with close monitoring of her renal function. I discussed with the importance of good DM and HTN control to slow down the progression of CKD. Nov, Diabetes mellitus with chronic kidney disease (ICD-10 - E11.22) Her blood sugars are within acceptable range. She follows with Tondra. Continue Farxiga, Losartan and Kerendia Nov, Iron deficiency (ICD-10 - E61.1) Continue oral iron every other day. Nov, Vitamin deficiency (ICD-10 - E56.9) MBD parameters including calcium, phosphorus, PTH and vitamin D are within the goal. Continue oral vitamin D. Nov, Hypomagnesemia (ICD-10 - E83.42) He has hypomagnesemia due to the PPI. Continue oral magnesium [facility] Other 08-02-2023 Evaluation note* Encounter Date Diagnosis Assessment Notes Treatment Notes Treatment Clinical Notes Sep, Type 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 (ICD-10 - E11.22) Diabetes type 2 home care material was printed 1. Controlled, Type 2 diabetes with A1c of 6.2% 2. Blood glucose levels stable. No changes. 3. Patient is alert, oriented and receptive to making changes or counseling. Notes: Seen for an assessment of current glucose pattern, changes in treatment plan, counseling and coordination of care related to diabetes, risks, and benefits of treatment, medications, and side effects. TOPICS REVIEWED: 1. Time was spent reviewing: a. Basic concepts of diabetes, progressive beta cell , concepts of basal/bolus/correc tive insulin requirements. b. Nutrition: Concepts of healthy diet, encouraged to decrease saturated fat in diet and increase non-starchy vegetables and fruits in diet. BMI: Pt. needs to select one small change to decrease caloric intake or increase physical activity to help decrease weight. c. Correct treatment of hypoglycemia, carry a glucose source at all times on your person, in vehicles, and at bedside. Can use glucose tablets/4, four ounces of pop or juice equal to 15 G of carbohydrate. Blood glucose should be 100 mg/dl or higher when driving. d. ADA glucose goals for age and medical complexity reviewed e. Patient questions addressed 2. Activity/exercise: Encouraged to start any form of physical activity. Start low level and increase slowly to a minimal goal of 150 minutes/week. Limit activity to what is allowed by other issues such as cardiac, pulmonary or orthopedic restrictions. 3. Standards of care: Reminded to have an annual dilated eye exam, A1C every 3-6 months, urine testing for microalbumin once/year, check feet daily and report any cuts or sores that do not appear to be healing. 4. Meter: Plan to check blood glucose: Please check blood glucose levels 1 time/day. Back to back meals reveal effectiveness of bolus dosing. 5. [facility]. Contact office if any issues or concerns with patterns of hypoglycemia, hyperglycemia, or diabetes medication issues. 6. Prescriptions: AZ&ME PAP-Farxiga; 7. Prescriptions will not be filled unless you are compliant with follow up appointments or have a follow up appointment scheduled as ordered by your provider. Refills should be requested at the time of your visit. Sep, Diabetes mellitus with chronic kidney disease (ICD-10 - E11.22) Sep, Hyperlipidemia, unspecified hyperlipidemia type (ICD-10 - E78.5) High cholesterol material was printed 11/2021 ldl 41, at target on statin. Sep, Hypertension, unspecified type (ICD-10 - I10) About hypertension material was printed [facility] Above target- f/u with pcp for further recommendation. 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 Continue current dose of the losartan and Amlodipine. May, Chronic kidney disease, stage III (moderate) (ICD-10 - N18.30) She has CKD due to DM and HTN with b/l serum Creatinine 1.1-1.3 mg/dl. Her renal ultrasound showed moderate bilateral cortical atrophy findings consistent with medical renal disease. I have explained to her the potential risk of worsening renal function due to prolonged use of Meloxican and Omeprazole. She would like to continue it with close monitoring of her renal function. I discussed with the importance of good DM and HTN control to slow down the progression of CKD. May, Diabetes mellitus with chronic kidney disease (ICD-10 - E11.22) Her blood sugars are within acceptable range. She follows with [facility]ino. Continue Farxiga, Losartan and Kerendia May, Iron deficiency (ICD-10 - E61.1) Continue oral iron every other day. May, Vitamin deficiency (ICD-10 - E56.9) MBD parameters including calcium, phosphorus, PTH and vitamin D are within the goal. Continue oral vitamin D. May, Hypomagnesemia (ICD-10 - E83.42) He has hypomagnesemia due to the PPI. Continue oral magnesium [email or web address] Other 02-01-2023 Evaluation note* Encounter Date Diagnosis Assessment Notes Treatment Notes Treatment Clinical Notes Mar, Type 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 (ICD-10 - E11.22) Diabetes type 2 home care material was printed 1. Controlled, Type 2 diabetes with A1c of 5.8% 2. Blood glucose levels stable. No changes. 3. Patient is alert, oriented and receptive to making changes or counseling. Notes: Seen for an assessment of current glucose pattern, changes in treatment plan, counseling and coordination of care related to diabetes, risks, and benefits of treatment, medications, and side effects. TOPICS REVIEWED: 1. Time was spent reviewing: a. Basic concepts of diabetes, progressive beta cell , concepts of basal/bolus/correc tive insulin requirements. b. Nutrition: Concepts of healthy diet, encouraged to decrease saturated fat in diet and increase non-starchy vegetables and fruits in diet. BMI: Pt. needs to select one small change to decrease caloric intake or increase physical activity to help decrease weight. c. Correct treatment of hypoglycemia, carry a glucose source at all times on your person, in vehicles, and at bedside. Can use glucose tablets/4, four ounces of pop or juice equal to 15 G of carbohydrate. Blood glucose should be 100 mg/dl or higher when driving. d. ADA glucose goals for age and medical complexity reviewed e. Patient questions addressed 2. Activity/exercise: Encouraged to start any form of physical activity. Start low level and increase slowly to a minimal goal of 150 minutes/week. Limit activity to what is allowed by other issues such as cardiac, pulmonary or orthopedic restrictions. 3. Standards of care: Reminded to have an annual dilated eye exam, A1C every 3 months, urine testing for microalbumin once/year, check feet daily and report any cuts or sores that do not appear to be healing. 4. Meter: Plan to check blood glucose: Please check blood glucose levels 1 time/day. Back to back meals reveal effectiveness of bolus dosing. 5. [facility]. Contact office if any issues or concerns with patterns of hypoglycemia, hyperglycemia, or diabetes medication issues. 6. Prescriptions: Refill request for One Touch Test Strips sent to [facility] 03/31/22 7. Prescriptions will not be filled unless you are compliant with follow up appointments or have a follow up appointment scheduled as ordered by your provider. Refills should be requested at the time of your visit. Mar, Diabetes mellitus with chronic kidney disease (ICD-10 - E11.22) Mar, Hyperlipidemia, unspecified hyperlipidemia type (ICD-10 - E78.5) High cholesterol material was printed 11/2021 ldl 41, at target on statin. Mar, Hypertension, unspecified type (ICD-10 - I10) About hypertension material was printed [facility]. 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 Controlled, Type 2 diabetes with A1c of 6.1% 2. Blood glucose levels stable.Pt with concern of loose stools, will hold metformin. Discussed with pt sglt2 class of medication, reviewed s/e. Reviewed if ill n/v/d or surgery medication would need stopped during time of illness. She is agreeable to starting farxiga 5mg once daily. 3. Patient is alert, oriented and receptive to making changes or counseling. Notes: Seen for an assessment of current glucose pattern, changes in treatment plan, counseling and coordination of care related to diabetes, risks, and benefits of treatment, medications, and side effects. TOPICS REVIEWED: 1. Time was spent reviewing: a. Basic concepts of diabetes, progressive beta cell , concepts of basal/bolus/correc tive insulin requirements. b. Nutrition: Concepts of healthy diet, encouraged to decrease saturated fat in diet and increase non-starchy vegetables and fruits in diet. BMI: Pt. needs to select one small change to decrease caloric intake or increase physical activity to help decrease weight. c. Correct treatment of hypoglycemia, carry a glucose source at all times on your person, in vehicles, and at bedside. Can use glucose tablets/4, four ounces of pop or juice equal to 15 G of carbohydrate. Blood glucose should be 100 mg/dl or higher when driving. d. ADA glucose goals for age and medical complexity reviewed e. Patient questions addressed 2. Activity/exercise: Encouraged to start any form of physical activity. Start low level and increase slowly to a minimal goal of 150 minutes/week. Limit activity to what is allowed by other issues such as cardiac, pulmonary or orthopedic restrictions. 3. Standards of care: Reminded to have an annual dilated eye exam, A1C every 3 months, urine testing for microalbumin once/year, check feet daily and report any cuts or sores that do not appear to be healing. 4. Meter: Plan to check blood glucose: Please check blood glucose levels 1 time/day. Back to back meals reveal effectiveness of bolus dosing. 5. [facility]. Contact office if any issues or concerns with patterns of hypoglycemia, hyperglycemia, or diabetes medication issues. 6. Prescriptions: Farxiga 5mg sent to pharmacy 7. Prescriptions will not be filled unless you are compliant with follow up appointments or have a follow up appointment scheduled as ordered by your provider. Refills should be requested at the time of your visit. Nov, Hyperlipidemia, unspecified hyperlipidemia type (ICD-10 - E78.5) High cholesterol material was printed 11/2021 ldl 41, at target on statin. Nov, Hypertension, unspecified type (ICD-10 - I10) About hypertension material was printed [facility]. Nov, Dietary counseling and surveillance (ICD-10 - Z71.3) Eat a diet rich in fruits and vegetables material was printed see above Nov, Vitamin B 12 deficiency (ICD-10 - E53.8) Good food sources of vitamin B12 material was printed 11/2021 vit b12 [id number] pt stopped b12 supplement Nov, BMI 37.0-37.9, adult (ICD-10 - Z68.37) Eating healthy: tips to make it easier material was printed see above [email or web address] Other 10-17-2022 Evaluation note* Encounter Date Diagnosis Assessment Notes Treatment Notes Treatment Clinical Notes Nov, Benign arteriolar nephrosclerosis (ICD-10 - I12.9) Her blood pressure is high. Continue current dose of the losartan and Amlodipine. I have prescribed oral Finerinone due to CKD and DM. We will repeat renal function in 5 days to monitor the serum potassium. Nov, Chronic kidney disease, stage III (moderate) (ICD-10 - N18.30) She has CKD due to DM and HTN with b/l serum Creatinine 1.1-1.3 mg/dl. Her renal ultrasound showed moderate bilateral cortical atrophy findings consistent with medical renal disease. I have explained to her the potential risk of worsening renal function due to prolonged use of Meloxican and Omeprazole. She would like to continue it with close monitoring of her renal function Nov, Diabetes mellitus with chronic kidney disease (ICD-10 - E11.22) Her blood sugars are within acceptable range. She follows with [facility]ino. I would recommend to stop metformin if EGFR drops below 30 ml/min. She may benefit with SGLT2 inhibitors including Farxiga or Jardiance. I have advised her to continue to discuss with the diabetes nurse practitioner in case if she goes off of the metformin. Nov, Iron deficiency (ICD-10 - E61.1) Continue oral iron every other day. Nov, Vitamin deficiency (ICD-10 - E56.9) MBD parameters are within the goal. Continue oral vitamin D. Nov, Hypomagnesemia (ICD-10 - E83.42) He has hypomagnesemia due to the PPI. Continue oral magnesium [facility] Other 07-27-2022 Evaluation note* Encounter Date Diagnosis Assessment Notes Treatment Notes Treatment Clinical Notes Aug, Urticaria (ICD-10 - L50.9) Drink plenty fluids, get plenty of rest. Continue home medications as prescribed. Take the Medrol Dosepak as prescribed until gone. Take the Benadryl at bedtime as prescribed as needed for rash. Continue your daily antihistamine. Do not put any lotions or creams on your face. Consider stopping the diet program for a few days, discuss your symptoms with your analytical consultant. Follow-up with your family physician if no improvement in 2 to 3 days. Go to the ER for worsening symptoms or concerns Aug, Other General allergi c reactions home care material was printed [email or web address] Other 04-26-2022 Evaluation note* Encounter Date Diagnosis Assessment Notes Treatment Notes Treatment Clinical Notes May, Type 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 (ICD-10 - E11.22) Diabetes type 2 home care material was printed 1. Controlled, Type 2 diabetes with A1c of 6.1% 2. Blood glucose levels slightly higher. Reports ozempic caused diarrhea sto stopped and diarrhea has stopped. Reported Dr. White wanted her to ask about starting farxiga. Discussed with pt sglt2 class of medication, s/e, cost. She would like to hold off for now, and discuss at next apt. Reviewed with pt if cost is prohibitive she can apply for pap. She requests to discuss at next apt, declines starting today. 3. Patient is alert, oriented and receptive to making changes or counseling. Notes: Seen for an assessment of current glucose pattern, changes in treatment plan, counseling and coordination of care related to diabetes, risks, and benefits of treatment, medications, and side effects. TOPICS REVIEWED: 1. Time was spent reviewing: a. Basic concepts of diabetes, progressive beta cell , concepts of basal/bolus/correc tive insulin requirements. b. Nutrition: Concepts of healthy diet, encouraged to decrease saturated fat in diet and increase non-starchy vegetables and fruits in diet. BMI: Pt. needs to select one small change to decrease caloric intake or increase physical activity to help decrease weight. c. Correct treatment of hypoglycemia, carry a glucose source at all times on your person, in vehicles, and at bedside. Can use glucose tablets/4, four ounces of pop or juice equal to 15 G of carbohydrate. Blood glucose should be 100 mg/dl or higher when driving. d. ADA glucose goals for age and medical complexity reviewed e. Patient questions addressed 2. Activity/exercise: Encouraged to start any form of physical activity. Start low level and increase slowly to a minimal goal of 150 minutes/week. Limit activity to what is allowed by other issues such as cardiac, pulmonary or orthopedic restrictions. 3. Standards of care: Reminded to have an annual dilated eye exam, A1C every 3 months, urine testing for microalbumin once/year, check feet daily and report any cuts or sores that do not appear to be healing. 4. Meter: Plan to check blood glucose: Please check blood glucose levels 1 time/day. Back to back meals reveal effectiveness of bolus dosing. 5. [facility]. Contact office if any issues or concerns with patterns of hypoglycemia, hyperglycemia, or diabetes medication issues. 6. Prescriptions: will call when needed. May, Hyperlipidemia, unspecified hyperlipidemia type (ICD-10 - E78.5) High cholesterol material was printed 11/2020 ldl 33, at target on statin. May, Hypertension, unspecified type (ICD-10 - I10) About hypertension material was printed [facility] May, Dietary counseling and surveillance (ICD-10 - Z71.3) Eat a diet rich in fruits and vegetables material was printed see above May, Vitamin B 12 deficiency (ICD-10 - E53.8) Good food sources of vitamin B12 material was printed 11/2020 vit b12 1360 recommend stop b12 supplement May, BMI 37.0-37.9, adult (ICD-10 - Z68.37) Eating healthy: tips to make it easier material was printed see above [facility] Other 04-20-2022 Evaluation note* Encounter Date Diagnosis Assessment Notes Treatment Notes Treatment Clinical Notes May, Benign arteriolar nephrosclerosis (ICD-10 - I12.9) Her blood pressure is controlled. Continue current dose of the losartan and Amlodipine May, Chronic kidney disease, stage III (moderate) (ICD-10 - N18.30) She has CKD due to DM and HTN with b/l serum Creatinine 1.1-1.3 mg/dl. Her renal ultrasound showed moderate bilateral cortical atrophy findings consistent with medical renal disease. I have explained to her the potential risk of worsening renal function due to prolonged use of Meloxican and Omeprazole. She would like to continue it with close monitoring of her renal function May, Diabetes mellitus wi th chronic kidney disease (ICD-10 - E11.22) Her blood sugars are within acceptable range. She follows with [facility]ino. I would recommend to stop metformin if EGFR drops below 30 ml/min. I have advised her to discuss with the diabetes nurse practitioner about Farxiga as it has been recommended inpatient with the diabetic kidney disease to slow down the progression of the CKD. May, Iron deficiency (ICD-10 - E61.1) Continue oral iron every other day. May, Vitamin deficiency (ICD-10 - E56.9) MBD parameters are within the goal. Continue oral vitamin D. [facility] Other 04-12-2022 Evaluation note* Encounter Date Diagnosis Assessment Notes Treatment Notes Treatment Clinical Notes May, Type 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 (ICD-10 - E11.22) [facility] Other 10-26-2021 Evaluation note* Encounter Date Diagnosis Assessment Notes Treatment Notes Treatment Clinical Notes Nov, Benign arteriolar nephrosclerosis (ICD-10 - I12.9) Her blood pressure is controlled. Continue current dose of the losartan and Amlodipine Nov, Chronic kidney disease, stage III (moderate) (ICD-10 - N18.30) She has CKD due to DM and HTN with b/l serum Creatinine 1.1-1.3 mg/dl. Her renal ultrasound showed moderate bilateral cortical atrophy findings consistent with medical renal disease. I have explained to her the potential risk of worsening renal function due to prolonged use of Meloxican and Omeprazole. She would like to continue it with close monitoring of her renal function Nov, Diabetes mellitus wi th chronic kidney disease (ICD-10 - E11.22) Her blood sugars are within acceptable range. She follows with [facility]ino. I would recommend to stop metformin if EGFR drops below 30 ml/min Nov, Iron deficiency (ICD-10 - E61.1) Continue oral iron every other day. Nov, Vitamin deficiency (ICD-10 - E56.9) MBD parameters are within the goal. Continue oral vitamin D. [facility] Other 10-20-2021 Evaluation note* Encounter Date Diagnosis Assessment Notes Treatment Notes Treatment Clinical Notes Nov, Type 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 (ICD-10 - E11.22) Diabetes type 2 home care material was printed 1. Controlled, Type 2 diabetes with A1c of 5.8% 2. Blood glucose levels improved from last visit. Pt reported incidence of diarrhea after taking 0.5mg dose 1 day after taking dose, denied any concerns when she was taking 0.25mg. Recommend she restart ozempic at 0.25mg dose oncely weekly. She verbalizes understanding. 3. Patient is alert, oriented and receptive to making changes or counseling. Notes: Seen for an assessment of current glucose pattern, changes in treatment plan, counseling and coordination of care related to diabetes, risks, and benefits of treatment, medications, and side effects. TOPICS REVIEWED: 1. Time was spent reviewing: a. Basic concepts of diabetes, progressive beta cell , concepts of basal/bolus/correc tive insulin requirements. b. Nutrition: Concepts of healthy diet, encouraged to decrease saturated fat in diet and increase non-starchy vegetables and fruits in diet. BMI: Pt. needs to select one small change to decrease caloric intake or increase physical activity to help decrease weight. c. Correct treatment of hypoglycemia, carry a glucose source at all times on your person, in vehicles, and at bedside. Can use glucose tablets/4, four ounces of pop or juice equal to 15 G of carbohydrate. Blood glucose should be 100 mg/dl or higher when driving. d. ADA glucose goals for age and medical complexity reviewed e. Patient questions addressed 2. Activity/exercise: Encouraged to start any form of physical activity. Start low level and increase slowly to a minimal goal of 150 minutes/week. Limit activity to what is allowed by other issues such as cardiac, pulmonary or orthopedic restrictions. 3. Standards of care: Reminded to have an annual dilated eye exam, A1C every 3 months, urine testing for microalbumin once/year, check feet daily and report any cuts or sores that do not appear to be healing. 4. Meter: Plan to check blood glucose: Please check blood glucose levels 1 time/day. Back to back meals reveal effectiveness of bolus dosing. 5. [facility] Contact office if any issues or concerns with patterns of hypoglycemia, hyperglycemia, or diabetes medication issues. 6. Prescriptions: pap for christy for ozempic. Nov, Hyperlipidemia, unspecified hyperlipidemia type (ICD-10 - E78.5) High cholesterol material was printed 11/2020 ldl 33, at target on statin. Nov, Hypertension, unspecified type (ICD-10 - I10) About hypertension material was printed On [employer]. Nov, Dietary counseling and surveillance (ICD-10 - Z71.3) Eat a diet rich in fruits and vegetables material was printed see above Nov, Vitamin B 12 deficiency (ICD-10 - E53.8) Good food sources of vitamin B12 material was printed 11/2020 vit b12 1360 recommend stop b12 supplement Nov, BMI 37.0-37.9, adult (ICD-10 - Z68.37) Eating healthy: tips to make it easier material was printed see above [employer] Other 10-08-2021 Evaluation note* Encounter Date Diagnosis Assessment Notes Treatment Notes Treatment Clinical Notes Nov, Encounter for immunization (ICD-10 - Z23) Patient presents for COVID-19 vaccination BOOSTER. Pre-screening form answers evaluated with patient. Patient denies current illness or allergic reaction to component of COVID-19 vaccine. Patient provided with current copy of EUA. [employer] Other Evaluation noteNo InformationNort [employer] Other Evaluation note* Diagnosis Dermatophytosis of nail- Primary Dystrophic nail Other specified disease of nail Pain around toenail, right foot Pain around toenail, left foot documented in this encounter [facility] HealthcareEvaluation noteNo assessment information availableNationwide [facility] Work Phone: History general Narrative - Reported* Type Description Date Medical History hypertension, benign Medical History type II diabetes Medical History peripheral neuropathy Medical History hives Medical History hyperlipidemia Medical History Osteoarthritis Medical History ovarian cancer, 1994 Medical History osteopenia Medical History degenerative disc disease Medical History chronic pain Medical History bulging lumbar disc Medical History closed displaced fra cture of head of left radius with routine healing Medical History left radial head fracture Surgical History colonoscopy 10/2011 Surgical History hysterectomy 1994 Surgical History tonsillectomy and adenoidectomy Surgical History hernia repair Surgical History bunionectomy Surgical History TKA right- 2013 and left- 2012 Surgical History bursectomy- R hip Surgical History R thumb repair Surgical History L elbow spur removal Surgical History cataract surgery, bilateral Surgical History EYE LID TUCK 03/2019 Hospitalization History SEE ABOVE [facility] Other Summary Purpose Family History No Family History Records Found Relationship Condition Age at Onset Recorded Date/T sweta brother Diabetes mellitus Unknown Malignant neoplasm Unknown Unknown father Heart disease Unknown Hypertension Unknown Diabetes mellitus Unknown History of stroke Unknown Not Specified Unknown sister Malignant neoplasm Unknown Advance Directives No Advanced Directives Records Found Advance Directive Response Recorded Date/ Time Advance Directives No May 03 12:16pm Chief Complaint and Reason for Visit Chief Complaint Dm DM Additional Source Comments INFORMATION SOURCE (unrecogn ized section and content) DATE CREATED AUTHOR 08/24/2017 [facility] DATE CREATED AUTHOR AUTHOR'S ORGANIZ ATION 06/08/2022 [facility] DATE CREATED AUTHOR AUTHOR'S ORGANIZ ATION 03/27/2023 [facility] DATE CREATED AUTHOR AUTHOR'S ORGANIZ ATION 04/15/2023 [facility] DATE CREATED AUTHOR AUTHOR'S ORGANIZ ATION 04/16/2023 [facility] REASON FOR VISIT (unrecogniz ed section and content) Reason Comments Nail care Ashley Wang i s a 77 y.o. female who presents for Nail care. BS 120 A1C 6.0 (03/2023) LV Dr. Bernardino Talavera 04/05/2023 SS: 8.5-9). Care Teams (unrecognized sec tion and content) Regenerator Operator Relationship Specialty Start Date End Date Lex Choi MD [address] [place] [id number] PCP - General Family Medicine 02/07/23 Dana Tapia NP [address] [place] [id number] Nurse Practitioner Family Medicine 10/11/22 Regenerator Operator Relationship Specialty Start Date End Date Lex Choi MD [address] [place] [phone] PCP - General Family Medicine 02/07/23 Dana Tapia NP [address] [place] [phone] Nurse Practitioner Family Medicine 10/11/22 Team Status: Active Member Role Status Dates Lex Choi MD Primary Care Provider Active Team Status: Inactive Member Role Status Dates Tondra K Mapus , LICENSED PROFESSIONAL COUNSELOR Attending Provider Active Start: March 31, 2023 End: March 31, 2023 Team Status: Inactive Member Role Status Dates PHYSICIAN NO FAMILY Primary Care Provider Active Start: March 31, 2023 End: March 31, 2023 Earline Butler PA-C Active St art: March 31, 2023 End: March 31, 2023 Bernardino Talavera APRN Attending Provider Active Start: March 31, 2023 End: March 31, 2023 Goals (unrecognized section and content) Goals may be documented in a n alternate section FOR RECORDS PERTAINING TO PATIENTS WHO ARE OR HAVE BEEN ENROLLED IN A CHEMICAL DEPENDENCY/SUBSTANCEABUSE PROGRAM, SOME INFORMATION MAY BE OMITTED. This clinical summary was aggregated from multiple sources. Caution should be exercised in using it in the provision of clinical care. This summary normalizes information from multiple sources, and as a consequence, information in this document may materially change the coding, format and clinical context of patient data. In addition, data may be omitted in some cases. CLINICAL DECISIONS SHOULD BE BASED ON THE PRIMARY CLINICAL RECORDS. [employer] provides no warranty or guarantee of the accuracy or completeness of information in this document.
[2023-06-07 07:45] LABS: Hematocrit 40.7 % (36.0-48.0); Mean Corpuscular HGB Conc 31.9 g/dL (29.9-35.2); Mean Platelet Volume 8.7 fL (9.5-13.5); Platelet Count 167 10^3/uL (150-450); Red Blood Count 4.33 10^6/uL (4.20-5.40); Red Cell Distribution Width 12.8 % (11.0-15.0); White Blood Count 5.7 10^3/uL (4.0-11.0)
[2023-06-07 08:07] LABS: Bilirubin Urine NEGATIVE (NEGATIVE); Blood Urine NEGATIVE (NEGATIVE); Clarity Urine CLEAR (CLEAR); Color Urine LT. YELLOW (YELLOW); Glucose Urine UA 250 mg/dL (NEGATIVE); Ketones Urine NEGATIVE (NEGATIVE); Leukocyte Esterase Urine TRACE (NEGATIVE); Nitrite Urine NEGATIVE (NEGATIVE); Protein Urine NEGATIVE (NEG/TRACE); Urobilinogen Urine 0.2 EU/dL (0.2-1.0)
[2023-06-07 08:30] LABS: WBC Urine 0-2 #/HPF (NONE SEEN)
[2023-06-07 08:31] LABS: Bacteria Urine TRACE #/HPF (NONE SEEN); Cast Seen? NONE SEEN #/LPF (NONE SEEN); Crystals Seen? None Seen #/HPF (None Seen); Mucus Urine NONE SEEN (NONE SEEN); RBC Urine NONE SEEN #/HPF (0-2); Squamous Epithelial Cell Urine RARE #/LPF (NONE/RARE)
[2023-06-07 09:09] LABS: Albumin Level 3.5 g/dL (3.4-5.0); Anion Gap 13.3; BUN Creatinine Ratio 22.4; Calcium 8.9 mg/dL (8.5-10.1); Carbon Dioxide 27.6 mmol/L (21.0-32.0); Chloride 103 mmol/L (98-107); Estimated GFR (African America >60 (>=60); Estimated GFR (Non-African Ame 50 (>=60); Glucose 96 mg/dL (74-106); Phosphorus 3.8 mg/dL (2.6-4.7); Potassium 3.9 mmol/L (3.5-5.1); Sodium 140 mmol/L (136-145); Uric Acid 3.9 mg/dL (2.6-6.0)
[2023-06-08 12:09] LABS: PTH, Intact 99 pg/mL (15-65)
== END 2023-06-07 07:15 | disposition home or self-care (01) ==
LOC: LAB 07:16
PROVIDERS: PCP Nurse Practitioner; Visit Provider Internal Medicine
DX: I12.9 Hypertensive chronic kidney disease with stage 1 through stage 4 chronic kidney disease, or unspecified chronic kidney disease (principal); N18.30 Chronic kidney disease, stage 3 unspecified; E11.22 Type 2 diabetes mellitus with diabetic chronic kidney disease; E61.1 Iron deficiency; E56.9 Vitamin deficiency, unspecified
CPT/HCPCS: 36415; 80069; 81001; 82306; 82570; 83735; 83970; 84156; 84550; 85027

== ENCOUNTER 2023-12-06 07:36 | Outpatient (OUT) | payer MEDICARE, SELFPAY ==
--- OUTSIDE RECORDS SUMMARY | 2023-12-06 07:40 | XMS_ITS | CCD ---
Author Organization [facility] Care Team Providers Care Audio Technician Name Role Phone JACIEL SANTOS Unavailable Unavailable JACIEL SANTOS Unavailable Unavailable JACIEL SANTOS Unavailable Unavailable JACKLYN STARR Unavailable Unavailable Natalee Camacho Unavailable Mapus, Tondra Unavailable Buck, Eboni Unavailable Kristin Cardoso Unavailable AICHHOLZ, TECHNOLOGY COORDINATOR DANA Admitting Unavailable AICHHOLZ, TECHNOLOGY COORDINATOR DANA Attending Unavailable AICHHOLZ, TECHNOLOGY COORDINATOR DANA Primary Care Unavailable DR ANDRÉS ESCALONA V Consulting Unavailable AICHHOLZ, TECHNOLOGY COORDINATOR DANA Consulting Unavailable MAPUS, TONDRA Admitting Unavailable MAPUS, TONDRA Attending Unavailable AICHHOLZ, TECHNOLOGY COORDINATOR DANA Primary Care Unavailable MAPUS, TONDRA Consulting Unavailable BUCK, EBONI Admitting Unavailable BUCK, EBONI Attending Unavailable AICHHOLZ, TECHNOLOGY COORDINATOR DANA Primary Care Unavailable BUCK, EBONI Consulting Unavailable BUCK, EBNOI Admitting Unavailable BUCK, EBONI Attending Unavailable AICHHOLZ, TECHNOLOGY COORDINATOR DANA Primary Care Unavailable AICHHOLZ, TECHNOLOGY COORDINATOR DANA Consulting Unavailable BUCK, EBONI Consulting Unavailable AICHHOLZ, TECHNOLOGY COORDINATOR DANA Admitting Unavailable AICHHOLZ, TECHNOLOGY COORDINATOR DANA Attending Unavailable AICHHOLZ, TECHNOLOGY COORDINATOR DANA Primary Care Unavailable AICHHOLZ, TECHNOLOGY COORDINATOR DANA Consulting Unavailable AICHHOLZ, TECHNOLOGY COORDINATOR DANA Admitting Unavailable AICHHOLZ, TECHNOLOGY COORDINATOR DANA Attending Unavailable AICHHOLZ, TECHNOLOGY COORDINATOR DANA Primary Care Unavailable AICHHOLZ, TECHNOLOGY COORDINATOR DANA Consulting Unavailable BUCK, EBONI Admitting Unavailable BUCK, EBONI Attending Unavailable AICHHOLZ, TECHNOLOGY COORDINATOR DANA Primary Care Unavailable BUCK, EBONI Consulting Unavailable MAPUS, TONDRA Admitting Unavailable MAPUS, TONDRA Attending Unavailable AICHHOLZ, TECHNOLOGY COORDINATOR DANA Primary Care Unavailable MAPUS, TONDRA Consulting Unavailable BUCK, EBONI Admitting Unavailable BUCK, EBONI Attending Unavailable AICHHOLZ, TECHNOLOGY COORDINATOR DANA Primary Care Unavailable BUCK, EBONI Consulting Unavailable Aichholz ROW BOSS HOEING, Dana Unavailable Jimbo VALE, Lex Primary Care Provider [phone] NO FAMILY, PHYSICIAN Primary Care Provider Unava ilable Mapus, PATHOLOGY ASSISTANT Tondra K Attending Provider Mapus, Tondra K Attending Unavailable Mapus, Tondra K Admitting Unavailable NO FAMILY, PHYSICIAN Primary Care Unavailable NO FAMILY, PHYSICIAN Primary Care Provider Unava ilable Mapus, PATHOLOGY ASSISTANT Tondra K Attending Provider AICHHOLZ, DANA J Referring Unavailable AICHHOLZ, DANA J Primary Care Unavailable WOLF, JEFFREY España Attending Unavailable WOLF, JEFFREY [place] Referring Unavailable AICHHOLZ, DANA J Primary Care Unavailable WOLF, JEFFREY [place] Referring Unavailable AICHHOLZ, DANA J Primary Care Unavailable WOLF, JEFFREY [place] Admitting Unavailable WOLF, JEFFREY [place] Attending Unavailable WOLF, JEFFREY A Referring Unavailable AICHHOLZ, DANA J Primary Care Unavailable ANDRÉS VAZQUEZ Attending Unavailable AICHHOLZ, DANA J Primary Care Unavailable MAPUS, TONDRA K Referring Unavailable AICHHOLZ, DANA J Primary Care Unavailable Aichholz ROW BOSS HOEING, Dana Unavailable Jimbo VALE, Lex Primary Care Provider CARLOS BAER Attending Unavailable AICHHOLZDANA Attending Unavailable CARLOS BAER Attending Unavailable AICHHOLZ, DANA Attending Unavailable MAY PULIDO Attending Unavailable MAY PULIDO Referring Unavailable MAY PULIDO Attending Unavailable CARLOS BAER Attending Unavailable MAY PULIDO Attending Unavailable MAY PULIDO Referring Unavailable WOLFJEFFREY WILSON Attending Unavailable AICHHOLZDANA Attending Unavailable CARLOS BAER Attending Unavailable MAY PULIDO Attending Unavailable AICHHOLZ, DANA Attending Unavailable MAY PULIDO Attending Unavailable BUDDY, LEO J Attending Unavailable MAY PULIDO Referring Unavailable PKGeneARAMDANA Attending Unavailable LEO GOODWIN Attending Unavailable MAY PULIDO Referring Unavailable JESENIA JORGE Attending Unavailable MAY PULIDO Referring Unavailable Allergies Allergy Classification Reported Allergen(s) Allergy Type Date of Onset Reaction(s) Facility (20 sources) Sulfamethoxazole / Trimethoprim Drug Allergy [facility] Other (18 sources) semaglutide Drug Allergy 03-31-19 24 diarrhea [facility] (13 sources) Soy Protein Shake Drug allergy Unknown [facility] Other (14 sources) metFORMIN Drug Allergy 03-31-19 24 g/i s/e [facility] (5 sources) Soy Balance Drug allergy [facility] Other (4 sources) Sulfonamides (Antibiotic) Drug Allergy 10-29-19 17 Hives, Rash [facility] (4 sources) Wound Dressing Adhesive Drug Allergy 09-16-19 23 Unknown [facility] (5 sources) Soy protein; Translations: [soy] Allergy to substance 12-09-19 22 Unknown Reaction [facility] (4 sources) Sulfamethoxazole; Translations: [sulfamethoxazole] Drug Allergy 03-31-19 [facility] (4 sources) Trimethoprim; Translations: [trimethoprim] Drug Allergy 03-31-19 24 [facility] (1 source) metFORMIN Drug Allergy 03-31-19 [facility] Repository (1 source) semaglutide Drug allergy (disorder) 03-31-19 [facility] Repository (1 source) Sulfonamides (Antibiotic); Translations: [SULFA (SULFONAMIDE ANTIBIOTICS)] Propensity to adverse reactions to drug (disorder) 10-29-19 [facility] (1 source) ADHESIVE TAPE-SILICONES; Translations: [ADHESIVE TAPE-SILICONES] Propensity to adverse reactions to drug (disorder) 10-30-19 17 [facility] (2 sources) Soy protein Allergy to substance 10-04-19 Unknown [facility] (2 sources) Other Allergy to substance 06-13-19 Unknown [facility] (2 sources) Semaglutide Allergy to substance 06-13-19 Diarrhea [facility] Medications Current Medications Medication Drug Class(es) Dates Sig (Normalized) Sig (Original) acetaminophen 80 mg rectal suppository (2 sources) acetaminophen (Tylenol) 80 MG suppository Insert into the rectum every 6 (six) hours if needed for mild pain or fever. 0 Active acetaminophen 500 mg / diphenhydrAMINE hydrochloride 25 mg oral tablet (20 sources) Histamine-1 Receptor Antagonist Start: 06-13-2023 take 25-500 mg by mouth once as needed diphenhydrAMINE-burt taminophen (Tylenol PM) 25-500 MG per tablet Take 2 tablets by mouth as needed at bedtime 06/13/2023 Active Start: 06-13-2023 take 2 tablets by mo ut once daily Diphenhydramine-Acetaminophen Active 2 T AB PO Daily June 13, 2023 12:00am take 2 tablets by mo uth every twenty-four hours Acetaminophen PM 500-25 MG 2 TABLETS Ora lly Once a day Active alendronic acid 70 mg oral tablet (6 sources) Bisphosphonate Start: 09-28-2023 alendronate (F osamax) 70 MG tablet Indications: Osteoporosis Take 1 tablet (70 mg) by mouth every 7 (seven) days for 28 days Take in the morning with a full glass of water, on an empty stomach, and do not take anything else by mouth or lie down for the next 30 min. 12 tablet 1 09/28/2023 Active Start: 06-13-2023 take 1 tablet by fidel every week Alendronate (Fosamax) 70 mg tablet Active 70 MG PO every week June 13, 2023 12:00am Start: 03-08-2023 alendronate (F osamax) 70 MG tablet Indications: Osteoporosis Take 1 [...] (20 sources) Dihydropyridine Calcium Channel Leti Start: 06-13-2023 End: 12-27-2023 take 1 tablet by mouth once daily amLODIPine (Norvasc) 5 MG tablet Indications: Essential (primary) hypertension (CMS/HCC) Take 1 tablet (5 mg) by mouth Daily 90 tablet 1 09/28/2023 12/27/2023 Active Start: 06-28-2022 take 1 tablet by fidel th in the morning amLODIPine (Norvasc) 5 MG tablet Take 5 mg by mouth in the morning. 0 06/28/2022 Active take 0.5 tablet by m outh once daily amLODIPine Besylate 10 MG 1/2 tablet Orally Once a day Active Ascorbic Acid (13 sources) Vitamin C Start: 06-13-2023 take 1 g by mouth once daily Ascorbic Acid (Vitamin C) Active 1 GM PO Daily June 13, 2023 12:00am Ascorbic Acid (v itamin C) 1000 MG tablet 1 (one) time each day at the same time. Active aspirin 81 mg chewable tablet (20 sources) Platelet Aggregation Inhibitor, Nonsteroidal Anti-inflammatory Drug Start: 06-13-2023 take 81 mg by mouth once daily Aspirin Active 81 MG PO Daily June 13, 2023 12:00am take 1 tablet by mouth in the mo rning aspirin 81 MG EC tablet Take 81 mg by mouth in the morning. Active take 1 tablet by fidel th every twenty-four hours Aspirin 81 MG 1 tablet Orally Once a day for 30 day(s) Active atorvastatin 20 mg oral tablet (20 sources) HMG-CoA Reductase Inhibitor Start: 09-19-2023 take 1 tablet by mouth once daily in the morning atorvastatin (Lipitor) 20 MG tablet Indications: Mixed hyperlipidemia (CMS/HCC) TAKE 1 TABLET BY MOUTH EVERY DAY IN THE MORNING 90 tablet 1 09/19/2023 Active Start: 03-29-2023 End: 06-27-2023 take 20 mg by mouth once daily Atorvastatin Active 20 MG PO Daily June 13, 2023 12:00am take 1 tablet by fidel th every twenty-four hours Atorvastatin Calcium 20 MG 1 tablet Orally Once a day Active Benadryl Allergy 25 MG (1 source) Start: 09-23-2021 take 1 capsule by mouth once daily at bedtime as needed Benadryl Allergy 25 MG 1 capsule at bedtime as needed Orally Once a day for 30 day(s) As needed for rash and itching Aug, Active calcium carbonate 1500 mg / cholecalciferol 800 unt oral tablet (2 sources) Vitamin D Start: 06-13-2023 take 1 tablet by mouth twice daily Calcium Carbonate-Vitamin D3 Active 1 TAB PO Twice daily June 13, 2023 12:00am Calcium Carbonate / Vitamin D (4 sources) Calcium Carbonate-Vitamin D (CALTRATE 600+D PO) Caltrate 600+D Active Calcium Carbonat e-Vitamin D (CALTRATE 600+D PO) Caltrate 600+D 0 Active Caltrate 600+D 600-400 MG-UNIT (20 sources) take 1 tablet by fidel th twice daily Caltrate 600+D 600-400 MG-UNIT 1 TABLET Orally TWICE A DAY Active take 2 tablets by mouth twice da ran Caltrate 600+D 600-400 MG-UNIT 2 tablet Orally TWICE A DAY Active take 2 tablets by mouth once leeann ly Caltrate 600+D 600-400 MG-UNIT 2 tablet Orally daily Active cetirizine hydrochloride 10 mg oral tablet (20 sources) Histamine-1 Receptor Antagonist Start: 06-13-2023 take 1 tablet by mouth once daily Cetirizine (Zyrtec) 10 mg tablet Active 10 MG PO Daily June 13, 2023 12:00am cholecalciferol 0.05 mg oral capsule (7 sources) Vitamin D Start: 06-13-2023 take 50 ug by mouth once daily Cholecalciferol (Vitamin D3) Active 50 MCG PO Daily June 13, 2023 12:00am cholecalciferol (Vitamin D-3) 50 MCG (1999 UT) tablet Vitamin D3 Active cholecalciferol (Vitamin D-3) 50 MCG (1999 UT) tablet Vitamin D3 0 Active take 1 capsule by mo uth every twenty-four hours Vitamin D 50 MCG (1999 UT) 1 capsule Ora lly Once a day for 30 day(s) Active dapagliflozin 5 mg oral tablet (20 sources) Sodium-Glucose Cotransporter 2 Inhibitor Start: 12-21-2021 End: 09-22-2023 take 1 tablet by mouth once daily Dapagliflozin Propanediol (Farxiga) 5 mg tablet Active 5 MG PO Daily September 22, 2023 1:41pm docosahexaenoic acid 120 mg / eicosapentaenoic acid 180 mg oral capsule (4 sources) Start: 06-13-2023 fish oil-omega-3 fatty acids 1000 MG capsule Twice daily 06/13/2023 Active omega-3 (fish oi l) 1000 MG capsule 1 capsule 1 (one) time each day at the same time. 0 Active DULoxetine 30 mg delayed release oral capsule (2 sources) Serotonin and Norepinephrine Reuptake Inhibitor Start: 11-28-2023 End: 02-26-2024 take 1 capsule by mouth once daily DULoxetine (Cymbalta) [address] capsule Indications: Fibromyalgia , 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 elsewhere (CMS/HCC) , ODALYS (generalized anxiety disorder) (CMS/HCC) Take 1 capsule (30 mg) by mouth Daily Do not crush or chew. 90 capsule 11/28/2023 02/26/2024 Active ferrous sulfate 325 mg oral tablet (20 sources) Start: 06-13-2023 End: 07-27-2023 Ferrous Sulfate Active 325 MG PO Every 48 hours July 27, 2023 4:45pm take 1 tablet by mouth every oth er day ferrous sulfate 325 (65 Fe) MG tablet Take 1 tablet by mouth every other day. Active take 1 tablet by mouth every [...] a day Active gabapentin 100 mg oral capsule (20 sources) Anti-epileptic Agent Start: 06-13-2023 End: 12-27-2023 take 1 capsule by mouth once daily gabapentin (Neurontin) 100 MG capsule Indications: Type 2 diabetes mellitus with diabetic neuropathy, unspecified (CMS/HCC) Take 1 capsule (100 mg) by mouth Daily 90 capsule 1 09/28/2023 12/27/2023 Active gabapentin (Neur ontin) 100 MG capsule Gabapentin Activ e kerendia [...] 0 Active latanoprost 0.05 mg/ml ophthalmic solution (8 sources) Prostaglandin Analog Start: take 1 drop(s) into the eye(s) once daily in the evening Latanoprost Active 1 DROPS OPHTHALMIC Daily June 13, 2023 12:00am [employer] drop into affected eye in the evening Ophthalmic Once a day; Note: Source Status: Taking; Provider: Sadaf Lebron ( ) Start: 07-20-2022 take 1 drop(s) into the eye(s) once daily in the evening latanoprost (Xalatan) 0.005 % ophthalmic solution INSTILL 1 DROP INTO BOTH EYES EVERY EVENING DIRECTED 07/20/2022 Active take 1 drop(s) into the eye(s) once daily in the evening Latanoprost 0.005 % 1 drop into affected eye in the evening Ophthalmic Once a day Active losartan potassium 100 mg oral tablet (20 sources) Angiotensin 2 Receptor Leti Start: 06-13-2023 End: 12-27-2023 take 1 tablet by mouth in the morning losartan (Cozaar) 100 MG tablet Indications: Essential (primary) hypertension (CMS/HCC) Take 1 tablet (100 mg) by mouth in the morning. 90 tablet 1 09/28/2023 12/27/2023 Active Start: 02-27-2023 End: 05-28-2023 take 1 tablet by mouth in the morning losartan (Cozaar) 100 MG tablet Indications: Essential (primary) hypertension (CMS/HCC) Take 1 tablet (100 mg) by mouth in the morning. 90 tablet 0 02/27/2023 05/28/2023 Active Magnesium (20 sources) magnesium 250 MG tablet 1 (one) time each day at the same time. Active magnesium 250 MG tablet 1 (one) time each day at the same time. 0 Active take 1 tablet by mouth once michael y Magnesium 250 MG 1 tablet with a meal Orally Once a day Active magnesium oxide 250 mg oral tablet (2 sources) Start: 06-13-2023 take 250 mg by mouth once daily Magnesium Oxide Active 250 MG PO Daily June 13, 2023 12:00am melatonin 10 mg oral tablet (8 sources) Start: 06-13-2023 take 20 mg by mouth once daily at bedtime Melatonin Active 20 MG PO Daily at bedtime June 13, 2023 12:00am melatonin tablet Take by mouth at bedtime. Active Melatonin 10 MG as directed Orally Active Melatonin 10 MG as directed Orally Active Melatonin + L-Theanine - (7 sources) Melatonin + L-Theanine - as directed Orally Active meloxicam 15 mg oral tablet (20 sources) Nonsteroidal Anti-inflammatory Drug Start: take 1 tablet by mouth once daily meloxicam (Mobic) 15 MG tablet Take 15 mg by mouth Daily 09/19/2023 Active meloxicam (Mobic ) 15 MG tablet 24 hr metFORMIN hydrochloride 500 mg extended release oral tablet (11 sources) Biguanide take 1 tablet by mouth every twenty-four hours metFORMIN HCl ER 500 MG 1 tablet Orally Daily Active methylPREDNISolone 4 mg oral tablet (1 source) Corticosteroid Start: 09-24-19 Medrol 4 MG as directed Orally as directed for 6 days Aug, Active Multiple Vitamins-Minerals (One Daily For Women 50+ Adv) tablet (4 sources) take 1 tablet by mouth once daily Multiple Vitamins-Minerals (One Daily For Women 50+ Adv) tablet as directed Orally Active take 1 tablet by mouth once michael y Multiple Vitamins-Minerals (One Daily For Women 50+ Adv) tablet as directed Orally 0 Active Multivitamin (One Daily Essential) tablet (2 sources) Start: 06-13-2023 take 1 tablet by mouth once daily Multivitamin (One Daily Essential) tablet Active 1 TAB PO Daily June 13, 2023 12:00am [place] 3 1000 MG (20 sources) take 1 capsule by mouth once daily [place] 3 1000 MG 1 capsule Orally Once a day Active [place]-3 Fatty Acids (2 sources) Start: 06-13-2023 take 1000 mg by mouth twice daily [place]-3 Fatty Acids Active 1000 MG PO Twice daily June 13, 2023 12:00am omeprazole 20 mg delayed release oral capsule (20 sources) Proton Pump Inhibitor Start: 06-13-2023 take 1 capsule by mouth before mealtime omeprazole (PriLOSEC) [address] capsule Indications: Gastro-esophageal reflux disease without esophagitis , Esophageal reflux Take 1 capsule (20 mg) by mouth in the morning. Take before meals. 90 capsule 1 07/01/2023 Active omeprazole (PriL OSEC) [address] capsule One Daily For Women 50+ Adv - (20 sources) One Daily For Wo men 50+ Adv - as directed Orally Active sertraline 50 mg oral tablet (20 sources) Serotonin Reuptake Inhibitor Start: 06-13-2023 take 50 mg by mouth once daily Sertraline Active 50 MG PO Daily June 13, 2023 12:00am Start: 02-27-2023 End: 05-28-2023 take 1 tablet by mouth in the morning sertraline (Zoloft) 50 MG tablet Indications: Depression, unspecified (CMS/HCC) Take 1 tablet (50 mg) by mouth in the morning. 90 tablet 1 02/27/2023 05/28/2023 Active triamcinolone acetonide 0.055 mg/actuat metered dose nasal spray (18 sources) Corticosteroid take 1 spray(s) nasa l route once daily as needed Nasacort Allergy [...] 30 day(s) Active Vitamin D 50 MCG (2000 UT) (19 sources) take 1 capsule by mouth once daily Vitamin D 50 MCG (2000 UT) 1 capsule Orally Once a day for 30 day(s) Active Completed/Discontinued Medications Medication Drug Class(es) Dates Sig (Normalized) Sig (Original) Finerenone (4 sources) Start: 05-11-2023 End: 06-14-2023 take 10 mg by mouth once daily Finerenone Discontinued 10 MG PO Daily 90 90 May 11, 2023 5:55pm June 14, 2023 4:23pm Start: 05-11-2023 take 10 mg by mouth once daily Finerenone Active 10 MG PO Daily 90 90 May 11, 2023 5:55pm Start: 05-11-2023 End: 05-11-2023 take 1 tablet by mouth once daily Finerenone Discontinued 1 TAB PO Daily May 11, 2023 12:00am May 11, 2023 5:58pm FreeTextSig: TAKE 1 TABLET BY MOUTH EVERY DAY; Note: Source Status: Taking; Refills: 1; Qty: 90 Tablet; Provider: Buck Lyn ( ) Ozempic 0.25 or 0.5 MG/DOSE (7 sources) inject 0.5 mg by subcutaneous injection every week Ozempic 0.25 or 0.5 MG/DOSE 0.5mg sq Subcutaneous once weekly Not-Taking inject 0.5 mg by sub cutaneous injection every week Ozempic 0.25 or 0.5 MG/DOSE 0.5mg sq Subcutaneous once weekly Active [employer] - (2 sources) Graffiti ealth - as directed Orally Not-Taking [employer] - as directed Orally Active Problems Active Problems Problem Classification Problem Date Documented Date Episodic/Chronic Administrative/socia l admission (7 sources) Dietary counseling and surveillance; Translations: [Patient encounter status] Onset: 1 Resolved: 2 Episodic Anxiety disorders (2 sources) Generalized anxiety disorder; Translations: [Generalized anxiety disorder] Onset: 4 11-28-2023 Chronic Cancer of ovary (6 sources) Malignant tumor of ovary; 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] Onset: 5 Resolved: 4 02-07-2023 Chronic Cataract (4 sources) Cataract; Translations: [Unspecified cataract] Onset: 2 [...] Resolved: 2 Chronic Diabetes mellitus without complication (3 sources) Type 2 diabetes mellitus without complications; Translations: [Type 2 diabetes mellitus without complication] Onset: 8 06-20-2023 Chronic Diabetes mellitus without complication (1 source) Diabetes mellitus without complication; Translations: [Type 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] Onset: 4 Disorders of lipid metabolism (20 sources) Hyperlipidemia; Translations: [Hyperlipidemia, unspecified] Onset: 7 Resolved: 2 Chronic Esophageal disorders (4 sources) Gastroesophageal reflux disease; Translations: [Gastro-esophageal reflux disease without esophagitis] Onset: 7 02-07-2023 Chronic Essential hypertension (20 sources) Essential hypertension; Translations: [Essential (primary) hypertension] Onset: 7 Resolved: 4 Chronic Hypertension with complications and secondary hypertension (20 sources) Benign arteriolar nephrosclerosis; Translations: [Hypertensive chronic kidney disease with stage 1 through stage 4 chronic kidney disease, or unspecified chronic kidney disease] Onset: 1 Resolved: 2 Chronic Mycoses (1 source) Onychomycosis due to dermatophyte ; Translations: [Tinea unguium] 04-13-2023 Episodic Nutritional deficiencies (20 sources) Vitamin D deficiency; Translations: [Vitamin D deficiency, unspecified] Onset: 4 06-13-2023 Chronic Osteoarthritis (8 sources) Arthritis; Translations: [Unspecified osteoarthritis, unspecified site] Onset: 3 02-07-2023 Chronic Osteoporosis (4 sources) Senile osteoporosis; Translations: [Age-related osteoporosis without current pathological fracture] Onset: 3 02-18-2023 Chronic Other aftercare (4 sources) Aftercare following joint replacement surgery; Translations: [AFTERCARE FOLLOWING JOINT REPLACEMENT SURGERY] Onset: 7 Chronic Other connective tissue disease (1 source) Presence of artificial knee joint, bilateral; Translations: [PRESENCE OF ARTIFICIAL KNEE JOINT, BILATERAL] Onset: 7 Chronic Other connective tissue disease (2 sources) Pain in toe; Translations: [Pain in right toe(s)] 04-13-2023 Episodic Other diseases of kidney and ureters (2 sources) Secondary hyperparathyroidism of renal origin; Translations: [Secondary hyperparathyroidism (of renal origin)] Onset: 2 06-13-2023 Chronic Other diseases of kidney and ureters (2 sources) Hyperparathyroidism due to renal insufficiency; Translations: [Secondary hyperparathyroidism of renal origin] Onset: 4 09-26-2023 Chronic Other nervous system disorders (6 sources) Polyneuropathy associated with another disorder; 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] Onset: 3 Resolved: 4 02-07-2023 Chronic Other non-traumatic joint disorders (3 sources) Pain in right shoulder; Translations: [Pain in joint, shoulder region] Onset: 4 06-20-2023 Episodic Other non-traumatic joint disorders (3 sources) Stiffness of right shoulder; Translations: [Stiffness of right shoulder, not elsewhere classified] Onset: 4 11-24-2023 Episodic Other nutritional; endocrine; and metabolic disorders (20 [...] Chronic Other nutritional; endocrine; and metabolic disorders (17 sources) Hypomagnesemia; Translations: [Hypomagnesemia] Onset: 4 06-13-2023 Chronic Other nutritional; endocrine; and metabolic disorders (5 sources) Hypomagnesemia; Translations: [Disorders of magnesium metabolism] Onset: 3 Chronic Other nutritional; endocrine; and metabolic disorders (4 sources) Severe obesity; Translations: [Morbid (severe) obesity due to excess calories] Onset: 2 02-07-2023 Chronic Other nutritional; endocrine; and metabolic disorders (1 source) Body mass index 30+ - obesity; Translations: [Body mass index (BMI) 34.0-34.9, adult] 10-04-2023 Chronic Other skin disorders (1 source) Dystrophia unguium; Translations: [Nail dystrophy] 04-13-2023 Episodic Unclassified (2 sources) Unknown / UNK(Unknown) Onset: 7 Unclassified (1 source) CHRN KIDNEY DISEASE STG 3 UNSP; Translations: [CHRN KIDNEY DISEASE STG 3 UNSP] Onset: 3 Unclassified (1 source) Right rotator cuff tear Onset: 4 Past or Other Problems Problem Classification Problem Date Documented Date Episodic/Chronic Allergic reactions (1 source) Urticaria, unspecified Onset: 2 Resolved: 2 Episodic Chronic kidney disease (20 sources) Chronic kidney disease; Translations: [Chronic kidney disease, stage III (moderate)] Onset: 1 Resolved: 2 Immunizations and screening for infectious disease (1 source) Encounter for immunization; Translations: [Encounter for immunization Z23] Onset: 1 Resolved: 1 Episodic Mood disorders (4 sources) Mood disorders Onset: 4 03-28-2023 Nutritional deficiencies (20 sources) Deficiency of other specified B group vitamins; Translations: [Iron deficiency] Onset: 1 Resolved: 2 Episodic Other connective tissue disease (4 sources) Fibromyalgia; Translations: [Fibromyalgia] Onset: 3 02-07-2023 Episodic Other diseases of kidney and ureters (20 sources) Secondary hyperparathyroidism; Translations: [Secondary hyperparathyroidism of renal origin] Onset: 4 Resolved: 4 06-13-2023 Chronic Other gastrointestinal disorders (4 sources) Diarrhea, unspecified; Translations: [DIARRHEA UNSPECIFIED] Onset: 2 Episodic Other screening for suspected conditions (not mental disorders or infectious disease) (8 sources) Encounter for screening mammogram for malignant neoplasm of breast; Translations: [Patient encounter status] Onset: 2 Episodic Residual codes; unclassified (1 source) Family history of malignant neoplasm of breast; Translations: [FAMILY HX MALIG NEOPLASM OF BREAST] Onset: 2 Episodic Residual codes; unclassified (1 source) Family history of malignant neoplasm of digestive organs; Translations: [FAM HX MALIG NEOPLASM DIGESTIV ORGN] Onset: 2 Episodic Residual codes; unclassified (1 source) Family history of malignant neoplasm of other genital organs; Translations: [FAM HX MALIG NEOPLSM OTH GENIT ORGN] Onset: 2 Episodic Residual codes; unclassified (4 sources) Menopause present; Translations: [Asymptomatic menopausal state] Onset: 3 02-07-2023 Episodic Spondylosis; intervertebral disc disorders; other back problems (4 sources) Backache; Translations: [Dorsalgia, unspecified] Onset: 7 02-07-2023 Episodic Results Test Name Value Interpretation Reference Range Facility BASIC METABOLIC PANLon 09-26 Anion gap [Moles/Vol] 11 mmol/L Normal 5-15 [facility] Comment on above: Performed By: #### P INR, BMP #### [facility] ([id number]) [address], [address] [place] [address] Calcium [Mass/Vol] 8.9 mg/dL Normal 8.5-10.5 [facility] Comment on above: Performed By: #### P INR, BMP #### [facility] ([id number]) [address], [address] [place] [address] Chloride [Moles/Vol] 103 mmol/L Normal 98-109 [facility] Comment on above: Performed By: #### P INR, BMP #### [facility] ([id number]) [address], [address] [place] [address] CO2 [Moles/Vol] 26 mmol/L Normal 22-32 [facility] Comment on above: Performed By: #### P INR, BMP #### [facility] ([id number]) [address], [address] [place] [address] Creatinine [Mass/Vol] 1.04 mg/dL High 0.40-1.00 [facility] Comment on above: Result Comment: METH OD TRACEABLE TO IDMS STANDARD Performed By: #### P INR, BMP #### [facility] ([id number]) [address], [address] [place] [address] GFR/1.73 sq M.predicted among non-blacks MDRD (S/P/Bld) [Vol rate/Area] 56 mL/min/{1.73_m2} Low >59 [facility] Comment on above: Result Comment: Reported eGFR is based on the CKD-EPI 2020 equation that does not use a race coefficient. Performed By: #### P INR, BMP #### [facility] ([id number]) [address], [address] [place] [address] Glucose [Mass/Vol] 120 mg/dL High 65-99 [facility] Comment on above: Performed By: #### P INR, BMP #### [facility] ([id number]) [address], [address] [place] [address] Potassium [Moles/Vol] 4.0 mmol/L Normal 3.5-5.0 [facility] Comment on above: Performed By: #### P INR, BMP #### [facility] ([id number]) [address], [address] [place] [address] Sodium [Moles/Vol] 140 mmol/L Normal 134-146 [facility] Comment on above: Performed By: #### P INR, BMP #### [facility] ([id number]) [address], [address] [place] [address] Urea nitrogen [Mass/Vol] 23 mg/dL Normal 5-27 [facility] Comment on above: Performed By: #### P INR, BMP #### [facility] ([id number]) [address], [address] [place] [address] PROTIME AND INRon 09-27-2023 INR Coag (PPP) [Relative time] 1.0 {INR} Normal 0.8-1.1 [facility] Comment on above: Performed By: #### P INR, BMP #### [facility] ([id number]) [address], [address] [place] [address] PT Coag (PPP) [Time] 11.8 s Normal 9.8-13.2 [facility] Comment on above: Performed By: #### P INR, BMP #### [facility] ([id number]) [address] [place] [address] MR SHOULDER RIGHT WO IV CONT RASTon 09-14-2023 MR SHOULDER RIGHT WO IV CONTRAST EXAMINATION: MR SHOULDER RIGHT WO IV CONTRAST HISTORY: Right shoulder pain. Lateral pain rating down the arm. Limited range of motion. No recent injury. TECHNIQUE: Routine non-contrast MRI of the shoulder, right side COMPARISON: Radiographs 06/23/2023. RESULT: Some limitations from motion. Rotator Cuff Tendons: There appears to be full-thickness tearing involving distal anterior supraspinatus near insertion measuring around 1.1 cm in AP dimension (series 7 image 28), with slight medial retraction of these torn fibers around 1.6 cm, with underlying tendinosis, with some intact appearing more posterior/junctional fibers. Mild to moderate tendinosis of infraspinatus, with small areas of interstitial tearing, without distinct full-thickness tear. Mild tendinosis involving subscapularis, without distinct tear. Teres minor appears intact. Long Head Biceps Tendon: Intra-articular portion not well visualized, may be obscured by motion, or could be torn. Muscle: Muscle bulk and signal intensity are within normal limits. Labrum: Areas of fraying/tearing. Bones and Marrow: No evidence of fracture or bone marrow replacing process. Glenohumeral Joint: Osteophytes without distinct measurable full-thickness chondral defect within limits of motion. No joint effusion. Acromioclavicular Joint: Mild to moderate degenerative changes with some undersurface osteophytes. Other: Fluid extending into the subacromial subdeltoid bursa. IMPRESSION: Apparent full-thickness tearing involving distal supraspinatus as discussed. ELECTRONICALLY SIGNED BY: Jaciel Crespo MD Normal Not Available Comment on above: Order Comment: MRI R T shoulder w/o at [facility]. [facility]bits if needed. Automated epithelial cells c ount in urine sediment (number/area)on 06-07-2023 Epithelial cells Auto (Urine sed) [#/Area] RARE #/LPF NONE/RARE [facility] Automated leukocytes count i n urine sediment (number/area)on 06-07-2023 WBC Auto (Urine sed) [#/Area] NONE SEEN #/HPF 0-2 [facility] Automated urine specific gra vity by refractometryon 06-07-2023 Specific gravity Refractometry automated (U) [Rel density] 1.020 1.005-1.025 [facility] Bilirubin Auto test strip (U ) [Mass/Vol]on 06-07-2023 Bilirubin (U) [Mass/Vol] Negative NEGATIVE [facility] Casts typing in urine sedime nt by light microscopyon 06-07-2023 Casts LM Nom (Urine sed) NONE SEEN #/LPF NONE SEEN [facility] Color Auto (U)on 06-07-2023 Color (U) LT. YELLOW YELLOW [facility] Erythrocyte distribution wid th Auto (RBC) [Ratio]on 06-07-2023 Erythrocyte distribution width (RBC) [Ratio] 12.8 % 11.0-15.0 [facility] Estimated glomerular filtrat ion rate (GFR) non- Americanon 06-07-2023 GFR/1.73 sq M.predicted among non-blacks MDRD (S/P/Bld) [Vol rate/Area] 50 mL/min/{1.73_m2} >=60 [facility] Hematocrit Auto (Bld) [Volum e fraction]on 06-07-2023 Hematocrit (Bld) [Volume fraction] 40.7 % 36.0-48.0 [facility] Hemoglobin [Mass/volume] in Bloodon 06-07-2023 Hemoglobin (Bld) [Mass/Vol] 13.0 g/dL 12.0-16.0 [facility] Ketones Auto test strip (U) [Mass/Vol]on 06-07-2023 Ketones (U) [Mass/Vol] Negative NEGATIVE [facility] Laboratory - Chemistry and C hemistry - challengeon 06-07-2023 Albumin [Mass/Vol] 3.5 g/dL 3.4-5.[address] [facility] Calcium [Mass/Vol] 8.9 mg/dL 8.5-10.[address] [facility] Chloride [Moles/Vol] 103 mmol/L 98-107 [facility] CO2 [Moles/Vol] 27.6 mmol/L 21.0-32.0 [facility] Creatinine [Mass/Vol] 1.07 mg/dL 0.55-1.02 [facility] GFR/1.73 sq M.predicted MDRD (S/P/Bld) [Vol rate/Area] mL/min/{1.73_m2} >=60 [facility] Glucose [Mass/Vol] 96 mg/dL 74-[address] [facility] Magnesium [Mass/Vol] 2.0 mg/dL 1.8-2.4 [facility] Potassium [Moles/Vol] 3.9 mmol/L 3.5-5.1 [facility] Sodium [Moles/Vol] 140 mmol/L 136-[address] [facility] Urate [Mass/Vol] 3.9 mg/dL 2.6-6.0 [facility] Urea nitrogen [Mass/Vol] 24.0 mg/dL 7.0-18.0 [facility] Urea nitrogen/Creatinine [Mass ratio] 22.4 mg/mg [facility] Leukocytes [#/volume] correc sigifredo for nucleated erythrocytes in Blood by Automated counon 06-07-2023 WBC corrected for nucl RBC Auto (Bld) [#/Vol] 5.7 10 3/uL 4.0-11.0 [facility] MCH Auto (RBC) [Entitic mass ]on 06-07-2023 MCH (RBC) [Entitic mass] 30.0 pg 26.7-34.0 [facility] MCHC Auto (RBC) [Mass/Vol]on 06-07-2023 MCHC (RBC) [Mass/Vol] 31.9 g/dL 29.9-35.2 [facility] MCV Auto (RBC) [Entitic vol] on 06-07-2023 MCV (RBC) [Entitic vol] 94.0 fL 81.0-99.0 [facility] Mucus LM Ql (Urine sed)on Mucus Ql (Urine sed) NONE SEEN NONE SEEN [facility] No Panel Informationon 06-06 25-Hydroxy Vitamin D Total 42.6 ng/mL [facility] Comment on above: <20 ng/mL Vit D defi cient20-<30 ng/mL Vit D [id number] ng/mL Vit D sufficient>100 ng/mL Potential Toxicity Miscellaneous Test COMMENT . [facility] Comment on above: Test Ordered: [id number] Prot+CreatU (Random)Creatinine, Urine 58.5 mg/dL CB Reference Range: Not Estab.Protein,Total,Urine 7.2 mg/dL CB Reference Range: Not Estab.Protein/Creat Ratio 123 CB Units of Measure: mg/g creat Reference Range: 0-200Performed at: CB - [facility] [address] [id number] Director: Remy Sanchez PhD, Phone: [phone] Parathyroid Hormone (Intact) 99 pg/mL 15-65 [facility] Comment on above: Performed at: CB - [facility] [address] [id number] Director: Remy Sanchez PhD, Phone: [phone] Phosphorus Level 3.8 mg/dL 2.6-4.7 [facility] Platelet mean volume Auto (B ld) [Entitic vol]on 06-07-2023 Platelet mean volume (Bld) [Entitic vol] 8.7 fL 9.5-13.5 [facility] Platelets Auto (Bld) [#/Vol] on 06-07-2023 Platelets (Bld) [#/Vol] 167 10 3/uL 150-450 [facility] Protein Auto test strip (U) [Mass/Vol]on 06-07-2023 Protein (U) [Mass/Vol] Negative NEG/TRACE [facility] RBC Auto (Bld) [#/Vol]on RBC (Bld) [#/Vol] 4.33 10 6/uL 4.20-5.40 [facility] Serum or plasma anion gap de terminationon 06-07-2023 Anion gap [Moles/Vol] 13.3 mmol/L [facility] Specific gravity Auto test s trip (U) [Rel density]on 06-07-2023 Specific gravity (U) [Rel density] CLEAR CLEAR [facility] Urine bacteria detection by automated methodon 06-07-2023 Bacteria Auto Ql (U) TRACE #/HPF NONE SEEN [facility] Urine glucose measurement by test strip (mass/volume)on 06-07-2023 Glucose Test strip (U) [Mass/Vol] 250 mg/dL NEGATIVE [facility] Urine hemoglobin detection b y automated test stripon 06-07-2023 Hemoglobin Auto test strip Ql (U) Negative NEGATIVE [facility] Urine nitrite detection by a utomated test stripon 06-07-2023 Nitrite Auto test strip Ql (U) TRACE NEGATIVE [facility] Nitrite Auto test strip Ql (U) Negative NEGATIVE [facility] Urine sediment crystal ident ification by light microscopyon 06-07-2023 Crystals LM Nom (Urine sed) None Seen #/HPF None Seen [facility] Urine sediment leukocyte cou nt by microscopy (number/high power field)on 06-07-2023 WBC LM.HPF (Urine sed) [#/Area] 0-2 #/HPF NONE SEEN [facility] Urobilinogen Auto test strip (U) [Mass/Vol]on 06-07-2023 Urobilinogen Qn (U) 0.2 {Wil'U}/dL 0.2-1.0 [facility] pH Auto test strip (U)on pH (U) 6.0 [pH] 5.0-9.0 [facility] Lipid 1996 panelon 4 Cholesterol [Mass/Vol] 144 mg/dL Low 150-200 [facility] Comment on above: Performed By: #### 2 4331-1 #### [facility] ([id number]) [address], [address] [place] [address] Cholesterol in HDL [Mass/Vol] 49 mg/dL Normal >39 [facility] Comment on above: Result Comment: HDL <40 mg/dL - High Risk HDL > or = 40mg/dL- Desirable HDL >60 mg/dL - Negative Risk Performed By: #### 2 4331-1 #### [facility] ([id number]) [address] [place] [address] Cholesterol in LDL [Mass/Vol] 49 mg/dL Normal <130 [facility] Comment on above: Result Comment: LDL <100 mg/dL - Desirable LDL >160 mg/dL - High Risk Performed By: #### 2 4331-1 #### [facility] ([id number]) [address] [place] [address] Cholesterol in VLDL [Mass/Vol] 46 mg/dL High 0-30 [facility] Comment on above: Performed By: #### 2 4331-1 #### [facility] ([id number]) [address], [address] [place] [address] CHOLESTEROL:HDL 2.9 Normal 1.0-5.0 [facility] Comment on above: Performed By: #### 2 4331-1 #### [facility] ([id number]) [address] [place] [address] Triglyceride [Mass/Vol] 228 mg/dL High 27-150 [facility] Comment on above: Performed By: #### 2 4331-1 #### [facility] ([id number]) [address] [place] [address] A1C HEMOGLOBINon 09-29-2022 HbA1c (Bld) [Mass fraction] 6.2 % [employer] Other Glucose - FINGER STICKon Glucose [Mass/Vol] 113 mg/dL [employer] Other HbA1c (Bld) [Mass fraction]o n 09-29-2022 A1C HEMOGLOBIN [employer] Other PTH INTACTon 06-03-2022 PTH, Intact 38 pg/mL Normal 15-65 [facility] Comment on above: Performed By: #### P THINT #### [facility] [address] [place] [address] Dr. Rizwan Fernando HEMOGRAM AND PLATELon 2022 Hematocrit (Bld) [Volume fraction] 39.5 % Normal 36.0-48.0 [facility] Comment on above: Performed By: #### H H #### [facility] [address] [place] [address] Dr. Rizwan Fernando Hemoglobin (Bld) [Mass/Vol] 12.8 g/dL Normal 12.0-16.0 [facility] Comment on above: Performed By: #### H H #### [facility] [address] [place] [address] Dr. Rizwan Fernando MCH (RBC) [Entitic mass] 28.9 pg Normal 26.7-34.0 [facility] Comment on above: Performed By: #### H H #### [facility] [address] [place] [address] Dr. Rizwan Fernando MCHC (RBC) [Mass/Vol] 32.4 g/dL Normal 29.9-35.2 [facility] Comment on above: Performed By: #### H H #### [facility] [address] [place] [address] Dr. Rizwan Fernando MCV (RBC) [Entitic vol] 89.2 fL Normal 81.0-99.0 [facility] Comment on above: Performed By: #### H H #### [facility] [address] [place] [address] Dr. Rizwan Fernando PLT 202 103/ul Normal 150-450 [facility] Comment on above: Performed By: #### H H #### [facility] [address] [place] [address] Dr. Rizwan Fernando RBC 4.43 106/ul Normal 4.20-5.40 [facility] Comment on above: Performed By: #### H H #### [facility] [address] [place] [address] Dr. Rizwan Fernando WBC 6.2 103/ul Normal 4.0-11.0 [facility] Comment on above: Performed By: #### H H #### [facility] [address] [place] [address] Dr. Rizwan Fernando IRON AND TIBCon 06-02-2022 % SATURATION 23.2 % Normal [facility] Comment on above: Performed By: #### R ENAL, MG, URIC #### [facility] [address] [place] [address] Dr. iRzwan Fernando Iron [Mass/Vol] 64.0 ug/dL Normal 50.0-170.0 [facility] Comment on above: Performed By: #### R ENAL, MG, URIC #### [facility] [address] [place] [address] Dr. Rizwan Fernando TIBC DIRECT 276.0 ug/dL Normal 250.0-450.0 [facility] Comment on above: Performed By: #### R ENAL, MG, URIC #### [facility] [address] [place] [address] Dr. Rizwan Fernando MAGNESIUMon 06-02-2022 Magnesium [Mass/Vol] 1.9 mg/dL Normal 1.8-2.4 [facility] Comment on above: Performed By: #### R ENAL, MG, URIC #### [facility] [address] [place] [address] Dr. Rizwan Fernando RENAL FUNCTION PANELon 06-02 Albumin [Mass/Vol] 3.9 g/dL Normal 3.4-5.0 [facility] Comment on above: Performed By: #### R ENAL, MG, URIC #### [facility] [address] [address] [address] Rizwan Fernando Calcium [Mass/Vol] 9.2 mg/dL Normal 8.5-10.1 [facility] Comment on above: Performed By: #### R ENAL, MG, URIC #### [facility] [address] [address] [address] Rizwan Fernando Chloride [Moles/Vol] 102 mmol/L Normal 98-107 [facility] Comment on above: Performed By: #### R ENAL, MG, URIC #### [facility] [address] [address] [address] Rizwan Fernando CO2 [Moles/Vol] 29.2 mmol/L Normal 21.0-32.0 [facility] Comment on above: Performed By: #### R ENAL, MG, URIC #### [facility] [address] [place] [address] Dr. Rizwan Fernando Creatinine [Mass/Vol] 1.05 mg/dL Critically high 0.55-1.02 [facility] Comment on above: Performed By: #### R ENAL, MG, URIC #### [facility] [address] [address] [address] Rizwan Fernando EGFR-AF THAI >60 Normal >=60 [facility] Comment on above: Performed By: #### R ENAL, MG, URIC #### [facility] [address] [address] [address] Rizwan Fernando EGFR-NON AF THAI 51 mL/min/1.73m2 Critically low >=60 [facility] Comment on above: Performed By: #### R ENAL, MG, URIC #### [facility] [address] [address] [address] Rizwan Fernando Glucose [Mass/Vol] 112 mg/dL Critically high 74-106 [facility] Comment on above: Performed By: #### R ENAL, MG, URIC #### [facility] [address] [address] [address] Rizwan Fernando Phosphate [Mass/Vol] 4.3 mg/dL Normal 2.6-4.7 [facility] Comment on above: Performed By: #### R ENAL, MG, URIC #### [facility] [address] [address] [address] Rizwan Fernando Potassium [Moles/Vol] 4.0 mmol/L Normal 3.5-5.1 [facility] Comment on above: Performed By: #### R ENAL, MG, URIC #### [facility] [address] [place] [address] Dr. Rizwan Fernando Sodium [Moles/Vol] 139 mmol/L Normal 136-145 [facility] Comment on above: Performed By: #### R ENAL, MG, URIC #### [facility] [address] [place] [address] Dr. Rizwan Fernando Urea nitrogen [Mass/Vol] 24.0 mg/dL Critically high 7.0-18.0 [facility] Comment on above: Performed By: #### R ENAL, MG, URIC #### [facility] [address] [place] [address] Dr. Rizwan Fernando UA RANDOM W/MICROSCOPICon BACTERIA NONE SEEN Normal NONE SEEN [facility] Comment on above: Performed By: #### R ENAL, MG, URIC #### [facility] [address] [place] [address] Dr. Rizwan Fernando Bilirubin Ql (U) Negative Normal NEGATIVE [facility] Comment on above: Performed By: #### R ENAL, MG, URIC #### [facility] [address] [place] [address] Dr. Rizwan Fernando CAST NONE SEEN Normal NONE SEEN [facility] Comment on above: Performed By: #### R ENAL, MG, URIC #### [facility] [address] [place] [address] Dr. Rizwan Fernando Clarity (U) CLEAR Normal CLEAR [facility] Comment on above: Performed By: #### R ENAL, MG, URIC #### [facility] [address] [place] [address] Dr. Rizwan Fernando Color (U) LT. YELLOW Normal YELLOW [facility] Comment on above: Performed By: #### R ENAL, MG, URIC #### [facility] [address] [address] [address] Rizwan Fernando Crystals LM Nom (Urine sed) NONE SEEN Normal NONE SEEN [facility] Comment on above: Performed By: #### R ENAL, MG, URIC #### [facility] [address] [place] [address] Dr. Rizwan Fernando Epithelial cells LM Ql (Urine sed) NONE SEEN Normal NONE SEEN /RARE [facility] Comment on above: Performed By: #### R ENAL, MG, URIC #### [facility] [address] [place] [address] Dr. Rizwan Fernando Glucose Ql (U) 250 mg/dl Abnormal NEGATIVE [facility] Comment on above: Performed By: #### R ENAL, MG, URIC #### [facility] [address] [place] [address] Dr. Rizwan Fernando Hemoglobin Ql (U) Negative Normal NEGATIVE [facility] Comment on above: Performed By: #### R ENAL, MG, URIC #### [facility] [address] [place] [address] Dr. Rizwan Fernando Ketones Ql (U) Negative Normal NEGATIVE [facility] Comment on above: Performed By: #### R ENAL, MG, URIC #### [facility] [address] [place] [address] Dr. Rizwan Fernando LEUKOCYTES TRACE Abnormal NEGATIVE [facility] Comment on above: Performed By: #### R ENAL, MG, URIC #### [facility] [address] [place] [address] Dr. Rizwan Fernando MUCOUS NONE SEEN Normal NONE SEEN [facility] Comment on above: Performed By: #### R ENAL, MG, URIC #### [facility] [address] [place] [address] Dr. Rizwan Fernando Nitrite Ql (U) Negative Normal NEGATIVE [facility] Comment on above: Performed By: #### R ENAL, MG, URIC #### [facility] [address] [place] [address] Dr. Rizwan Fernando pH (U) 6.0 [pH] Normal 5-9 [facility] Comment on above: Performed By: #### R ENAL, MG, URIC #### [facility] [address] [place] [address] Dr. Rizwan Fernando RBC NONE SEEN Abnormal 0-2 [facility] Comment on above: Performed By: #### R ENAL, MG, URIC #### [facility] [address] [place] [address] Dr. Rizwan Fernando SPEC GRAVITY 1.015 Normal 1.005-<=1.025 [facility] Comment on above: Performed By: #### R ENAL, MG, URIC #### [facility] [address] [place] [address] Dr. Rizwan Fernando UA PROTEIN Negative Normal NEGATIVE/ TRACE [facility] Comment on above: Performed By: #### R ENAL, MG, URIC #### [facility] [address] [place] [address] Dr. Rizwan Fernando Urobilinogen Qn (U) 0.2 {Wil'U}/dL Normal 0.2 - 1. 0 [facility] Comment on above: Performed By: #### R ENAL, MG, URIC #### [facility] [address] [place] [address] Dr. Rizawn Fernando WBC 0-2 Abnormal NONE SEEN [facility] Comment on above: Performed By: #### R ENAL, MG, URIC #### [facility] [address] [place] [address] Dr. Rizwan Fernando URIC ACID SERUMon 06-02-2022 Urate [Mass/Vol] 4.3 mg/dL Normal 2.6-6.0 [facility] Comment on above: Performed By: #### R ENAL, MG, URIC #### [facility] [address] [place] [address] Dr. Rizwan Fernando URINE T PROTEIN CREAT RATIOo n 06-02-2022 Protein (U) [Mass/Vol] 12.9 mg/dL Critically high <=12.0 [facility] Comment on above: Performed By: #### U RTPCR #### [facility] [address] [address] [address] Rizwan Fernando UR PROT CREAT RAT 0.[address] [facility] Comment on above: Performed By: #### U RTPCR #### [facility] [address] [address] [address] Rizwan Fernando URINE CREAT 62.07 mg/dL Normal 20.00-300.00 [facility] Comment on above: Performed By: #### U RTPCR #### [facility] [address] [address] [address] Rizwan Fernando VITAMIN D 25 OHon 06-02-2022 VIT D 25-OH 42.4 ng/mL Normal [facility] Comment on above: Performed By: #### R ENAL, MG, URIC #### [facility] [address] [place] [address] Dr. Rizwan Fernando VIT D RANGES SEE BELOW Normal [facility] Comment on above: Result Comment: <20 ng/mL Vit D deficient 20 - <30 ng/mL Vit D insufficient 30 - 100 ng/mL Vit D sufficient >100 ng/mL Potential Toxicity Performed By: #### R ENAL, MG, URIC #### [facility] [address] [place] [address] Dr. Rizwan Fernando A1C HEMOGLOBINon 03-31-2022 HbA1c (Bld) [Mass fraction] 5.8 % [employer] [facility] [employer] Other Glucose - FINGER STICKon Glucose [Mass/Vol] 135 mg/dL [employer] Other HbA1c (Bld) [Mass fraction]o n 03-31-2022 [facility] CHEM 8 (BAS METB)on Anion gap [Moles/Vol] 13.7 mmol/L Normal [facility] Comment on above: Performed By: #### R ENAL, MG, URIC #### [facility] [address] [place] [address] Dr. Rizwan Fernando Calcium [Mass/Vol] 9.1 mg/dL Normal 8.5-10.1 [facility] Comment on above: Performed By: #### R ENAL, MG, URIC #### [facility] [address] [place] [address] Dr. Rizwan Fernando Chloride [Moles/Vol] 103 mmol/L Normal 98-107 [facility] Comment on above: Performed By: #### R ENAL, MG, URIC #### [facility] [address] [place] [address] Dr. Rizwan Fernando CO2 [Moles/Vol] 28.8 mmol/L Normal 21.0-32.0 [facility] Comment on above: Performed By: #### R ENAL, MG, URIC #### [facility] [address] [place] [address] Dr. Rizwan Fernando Creatinine [Mass/Vol] 1.21 mg/dL Critically high 0.55-1.02 [facility] Comment on above: Performed By: #### R ENAL, MG, URIC #### [facility] [address] [place] [address] Dr. Rizwan Fernando EGFR-AF THAI 53 mL/min/1.73m2 Critically low >=60 [facility] Comment on above: Performed By: #### R ENAL, MG, URIC #### [facility] [address] [place] [address] Dr. Rizwan Fernando EGFR-NON AF THAI 43 mL/min/1.73m2 Critically low >=60 [facility] Comment on above: Performed By: #### R ENAL, MG, URIC #### [facility] [address] [place] [address] Dr. Rizwan Fernando Glucose [Mass/Vol] 121 mg/dL Critically high 74-106 [facility] Comment on above: Performed By: #### R ENAL, MG, URIC #### [facility] [address] [place] [address] Dr. Rizwan Fernando Potassium [Moles/Vol] 4.5 mmol/L Normal 3.5-5.1 [facility] Comment on above: Performed By: #### R ENAL, MG, URIC #### [facility] [address] [place], [place] [address] Dr. Rizwan Fernando Sodium [Moles/Vol] 141 mmol/L Normal 136-145 [facility] Comment on above: Performed By: #### R ENAL, MG, URIC #### [facility] [address] [place], [place] [address] Dr. Rizwan Fernando Urea nitrogen [Mass/Vol] 26.0 mg/dL Critically high 7.0-18.0 [facility] Comment on above: Performed By: #### R ENAL, MG, URIC #### [facility] [address] [place], [place] [address] Dr. Rizwan Fernando Urea nitrogen/Creatinine [Mass ratio] 21.5 mg/mg Normal [facility] Comment on above: Performed By: #### R ENAL, MG, URIC #### [facility] [address] [address] [address] Rizwan Fernando MG MAMM SCREEN 3D NICOLE CADon 02-05-2022 MG MAMM SCREEN 3D NICOLE CAD Patient: ASHLEY WANG Exam Date: 02/05/2022 : 1945 Gender:F Ordering : [facility]ZETTE [facility] Admission #: [id number] Family : Order #: [id number] CLICK HERE TO VIEW EXAM RADIOLOGY REPORT PROCEDURE: MAMMOGRAM SCREENING 3D BILATERAL CAD COMPARISON: MG MAMM SCREEN 3D NICOLE CAD, 02/02/2021. INDICATIONS: Screening mammography Calculator Name NCI Breast Cancer Risk Assessment Tool 5 Year Breast Cancer Risk 3.90% Lifetime Breast Cancer Risk 8.20% Personal Breast Cancer No Personal Ovarian Cancer Yes, Age 51, Hysterectomy Treatments None Family Cancers Mother with breast cancer at age 63; Sister with uterine cancer at age 23; Brother with liver cancer at age 68. LOCATION: [facility] BREAST COMPOSITION: Scattered areas fibroglandular density. FINDINGS: [...] MD on 02/05/2022 at 09:50 Normal [facility] RENAL FUNCTION PANELon 12-22 Albumin [Mass/Vol] 4.4 g/dL Normal 3.4-5.0 [facility] Comment on above: Performed By: #### R ENAL, MG, URIC #### [facility] [address] [place] [address] Dr. Rizwan Fernando Calcium [Mass/Vol] 9.5 mg/dL Normal 8.5-10.1 [facility] Comment on above: Performed By: #### R ENAL, MG, URIC #### [facility] [address] [place] [address] Dr. Rizwan Fernando Chloride [Moles/Vol] 102 mmol/L Normal 98-107 [facility] Comment on above: Performed By: #### R ENAL, MG, URIC #### [facility] [address] [address] [address] Rizwan Fernando CO2 [Moles/Vol] 29.2 mmol/L Normal 21.0-32.0 [facility] Comment on above: Performed By: #### R ENAL, MG, URIC #### [facility] [address] [place] [address] Dr. Rizwan Fernando Creatinine [Mass/Vol] 1.04 mg/dL Critically high 0.55-1.02 [facility] Comment on above: Performed By: #### R ENAL, MG, URIC #### [facility] [address] [place] [address] Dr. Rizwan Fernando EGFR-AF THAI >60 Normal >=60 [facility] Comment on above: Performed By: #### R ENAL, MG, URIC #### [facility] [address] [place] [address] Dr. Rizwan Fernando EGFR-NON AF THAI 52 mL/min/1.73m2 Critically low >=60 [facility] Comment on above: Performed By: #### R ENAL, MG, URIC #### [facility] [address] [address] [address] Rizwan Fernando Glucose [Mass/Vol] 101 mg/dL Normal 74-106 [facility] Comment on above: Performed By: #### R ENAL, MG, URIC #### [facility] [address] [address] [address] Rizwan Fernando Phosphate [Mass/Vol] 5.0 mg/dL Critically high 2.6-4.7 [facility] Comment on above: Performed By: #### R ENAL, MG, URIC #### [facility] [address] [address] [address] Rizwan Fernando Potassium [Moles/Vol] 4.1 mmol/L Normal 3.5-5.1 [facility] Comment on above: Performed By: #### R ENAL, MG, URIC #### [facility] [address] [address] [address] Rizwan Fernando Sodium [Moles/Vol] 141 mmol/L Normal 136-145 [facility] Comment on above: Performed By: #### R ENAL, MG, URIC #### [facility] [address] [address] [address] Rizwan Fernando Urea nitrogen [Mass/Vol] 24.0 mg/dL Critically high 7.0-18.0 [facility] Comment on above: Performed By: #### R ENAL, MG, URIC #### [facility] [address] [address] [address] Rizwan Fernando A1C HEMOGLOBINon 12-21-2021 HbA1c (Bld) [Mass fraction] 6.1 % [employer] Other Glucose - FINGER STICKon Glucose [Mass/Vol] 137 mg/dL [employer] Other HbA1c (Bld) [Mass fraction]o n 12-21-2021 A1C HEMOGLOBIN [employer] Other PTH INTACTon 12-05-2021 PTH, Intact 26 pg/mL Normal 15-65 [facility] Comment on above: Performed By: #### R ENAL, MG, URIC #### [facility] [address] [place] [address] Dr. Rizwan Fernando FERRITINon 12-04-2021 Ferritin [Mass/Vol] 89.0 ng/mL Normal 8.0-252.0 [facility] Comment on above: Performed By: #### R ENAL, MG, URIC #### [facility] [address] [place] [address] Dr. Rizwan Fernando HEMOGRAM AND PLATELon 2021 Hematocrit (Bld) [Volume fraction] 38.3 % Normal 36.0-48.0 [facility] Comment on above: Performed By: #### R ENAL, MG, URIC #### [facility] [address] [place] [address] Dr. Rizwan Fernando Hemoglobin (Bld) [Mass/Vol] 12.5 g/dL Normal 12.0-16.0 [facility] Comment on above: Performed By: #### R ENAL, MG, URIC #### [facility] [address] [place] [address] Dr. Rizwan Fernando MCH (RBC) [Entitic mass] 28.9 pg Normal 26.7-34.0 [facility] Comment on above: Performed By: #### R ENAL, MG, URIC #### [facility] [address] [place] [address] Dr. Rizwan Fernando MCHC (RBC) [Mass/Vol] 32.6 g/dL Normal 29.9-35.2 [facility] Comment on above: Performed By: #### R ENAL, MG, URIC #### [facility] [address] [place] [address] Dr. Rizwan Fernando MCV (RBC) [Entitic vol] 88.5 fL Normal 81.0-99.0 [facility] Comment on above: Performed By: #### R ENAL, MG, URIC #### [facility] [address] [place] [address] Dr. Rizwan Fernando PLT 188 103/ul Normal 150-450 [facility] Comment on above: Performed By: #### R ENAL, MG, URIC #### [facility] [address] [address] [address] Rizwan Fernando RBC 4.33 106/ul Normal 4.20-5.40 [facility] Comment on above: Performed By: #### R ENAL, MG, URIC #### [facility] [address] [address] [address] Rizwan Fernando WBC 5.4 103/ul Normal 4.0-11.0 [facility] Comment on above: Performed By: #### R ENAL, MG, URIC #### [facility] [address] [address] [address] Rizwan Fernando IRON AND TIBCon 12-04-2021 % SATURATION 20.3 % Normal [facility] Comment on above: Performed By: #### R ENAL, MG, URIC #### [facility] [address] [place] [address] Dr. Rizwan Fernando Iron [Mass/Vol] 56.0 ug/dL Normal 50.0-170.0 [facility] Comment on above: Performed By: #### R ENAL, MG, URIC #### [facility] [address] [address] [address] Rizwan Fernando TIBC DIRECT 276.0 ug/dL Normal 250.0-450.0 [facility] Comment on above: Performed By: #### R ENAL, MG, URIC #### [facility] [address] [address] [address] Rizwan Fernando LIPID PROFILEon 12-04-2021 CHOL-HDL RATIO NORM SEE BELOW Normal [facility] Comment on above: Result Comment: 3.3 - 4.4 LOW RISK 4.4 - 7.1 AVERAGE RISK 7.1 - 11.0 MODERATE RISK >11.0 HIGH RISK Performed By: #### R ENAL, MG, URIC #### [facility] [address] [place] [address] Dr. Rizwan Fernando Cholesterol [Mass/Vol] 152 mg/dL Normal <=200 [facility] Comment on above: Performed By: #### R ENAL, MG, URIC #### [facility] [address] [address] [address] Rizwan Fernando Cholesterol in HDL [Mass/Vol] 57 mg/dL Normal 40-60 [facility] Comment on above: Performed By: #### R ENAL, MG, URIC #### [facility] [address] [address] [address] Rizwan Fernando Cholesterol in LDL [Mass/Vol] 41.4 mg/dL Normal [facility] Comment on above: Performed By: #### R ENAL, MG, URIC #### [facility] [address] [address] [address] Rizwan Fernando Cholesterol.total/Ch olesterol in HDL [Mass ratio] 2.7 {ratio} Normal [facility] Comment on above: Performed By: #### R ENAL, MG, URIC #### [facility] [address] [address] [address] Rizwan Fernando HDL NORMAL > or = 60 mg/dl - LOW CARDIOVASCULAR RISK <40 mg/dl - HIGH CARDIOVASCULAR RISK Normal [facility] Comment on above: Performed By: #### R ENAL, MG, URIC #### [facility] [address] [address] [address] Rizwan Fernando LDL CALC NORMAL SEE BELOW Normal [facility] Comment on above: Result Comment: <100 mg/dl OPTIMAL 100 - 129 mg/dl NEAR OR ABOVE OPTIMAL 130 - 159 mg/dl BORDERLINE HIGH 160 - 189 mg/dl HIGH >190 mg/dl VERY HIGH Performed By: #### R ENAL, MG, URIC #### [facility] [address] [address] [address] Rizwan Fernando Triglyceride [Mass/Vol] 268 mg/dL Critically high <=150 [facility] Comment on above: Performed By: #### R ENAL, MG, URIC #### [facility] [address] [address] [address] Rizwan Fernando VLDL CALC 53.6 mg/dL Normal [facility] Comment on above: Performed By: #### R ENAL, MG, URIC #### [facility] [address] [address] [address] Rizwan Fernando MAGNESIUMon 12-04-2021 Magnesium [Mass/Vol] 1.6 mg/dL Critically low 1.8-2.4 [facility] Comment on above: Performed By: #### R ENAL, MG, URIC #### [facility] [address] [place] [address] Dr. Rizwan Fernando MICROALB CREAT RATIO RANDOMo n 12-04-2021 mALB 1.6 mg/L Normal <=30.0 [facility] Comment on above: Performed By: #### M CRR #### [facility] [address] [place] [address] Dr. Rizwan Fernando MALB CR RATIO 26.9 mg/g Normal 0.0-29.9 [facility] Comment on above: Performed By: #### M CRR #### [facility] [address] [place] [address] Dr. Rizwan Fernando MALB CR RATIO RANGE SEE BELOW Normal [facility] Comment on above: Result Comment: NO M ICROALBUMINURIA 0-29 MG/G CLINICAL MICROALBUMINURIA 30-300 MG/G MACROALBUMINURIA >300 MG/G Performed By: #### M CRR #### [facility] [address] [place] [address] Dr. Rizwan Fernando URINE CREAT 59.53 mg/dL Normal 20.00-300.00 [facility] Comment on above: Performed By: #### M CRR #### [facility] [address] [place] [address] Dr. Rizwan Fernando PHOSPHORUSon 12-04-2021 Phosphate [Mass/Vol] 4.0 mg/dL Normal 2.6-4.7 [facility] Comment on above: Performed By: #### R ENAL, MG, URIC #### [facility] [address] [place] [address] Dr. Rizwan Fernando PROF 14(COMP METB)on 022 Albumin [Mass/Vol] 4.0 g/dL Normal 3.4-5.0 [facility] Comment on above: Performed By: #### R ENAL, MG, URIC #### [facility] [address] [address] [address] Rizwan Fernando Albumin/Globulin [Mass ratio] 1.3 {ratio} Normal [facility] Comment on above: Performed By: #### R ENAL, MG, URIC #### [facility] [address] [address] [address] Rizwan Fernando ALP [Catalytic activity/Vol] 118 U/L Critically high 46-116 [facility] Comment on above: Performed By: #### R ENAL, MG, URIC #### [facility] [address] [address] [address] Rizwan Fernando ALT [Catalytic activity/Vol] 23 U/L Normal 14-59 [facility] Comment on above: Performed By: #### R ENAL, MG, URIC #### [facility] [address] [place] [address] Dr. Rizwan Fernando Anion gap [Moles/Vol] 10.7 mmol/L Normal [facility] Comment on above: Performed By: #### R ENAL, MG, URIC #### [facility] [address] [address] [address] Rizwan Fernando AST [Catalytic activity/Vol] 20 U/L Normal 15-37 [facility] Comment on above: Performed By: #### R ENAL, MG, URIC #### [facility] [address] [address] [address] Rizwan Fernando Bilirubin [Mass/Vol] 0.6 mg/dL Normal 0.2-1.0 [facility] Comment on above: Performed By: #### R ENAL, MG, URIC #### [facility] [address] [address] [address] Rizwan Fernando Calcium [Mass/Vol] 8.9 mg/dL Normal 8.5-10.1 [facility] Comment on above: Performed By: #### R ENAL, MG, URIC #### [facility] [address] [address] [address] Rizwan Fernando Chloride [Moles/Vol] 103 mmol/L Normal 98-107 [facility] Comment on above: Performed By: #### R ENAL, MG, URIC #### [facility] [address] [address] [address] Rizwan Fernando CO2 [Moles/Vol] 28.2 mmol/L Normal 21.0-32.0 [facility] Comment on above: Performed By: #### R ENAL, MG, URIC #### [facility] [address] [place] [address] Dr. Rizwan Fernando Creatinine [Mass/Vol] 1.04 mg/dL Critically high 0.55-1.02 [facility] Comment on above: Performed By: #### R ENAL, MG, URIC #### [facility] [address] [address] [address] Rizwan Fernando EGFR-AF THAI >60 Normal >=60 [facility] Comment on above: Performed By: #### R ENAL, MG, URIC #### [facility] [address] [place] [address] Dr. Rizwan Fernando EGFR-NON AF THAI 52 mL/min/1.73m2 Critically low >=60 [facility] Comment on above: Performed By: #### R ENAL, MG, URIC #### [facility] [address] [address] [address] Rizwan Fernando Globulin (S) [Mass/Vol] 3.1 g/dL Normal [facility] Comment on above: Performed By: #### R ENAL, MG, URIC #### [facility] [address] [address] [address] Rizwan Fernando Glucose [Mass/Vol] 115 mg/dL Critically high 74-106 [facility] Comment on above: Performed By: #### R ENAL, MG, URIC #### [facility] [address] [address] [address] Rizwan Fernando Potassium [Moles/Vol] 3.9 mmol/L Normal 3.5-5.1 [facility] Comment on above: Performed By: #### R ENAL, MG, URIC #### [facility] [address] [address] [address] Rizwan Fernando Protein [Mass/Vol] 7.1 g/dL Normal 6.4-8.2 [facility] Comment on above: Performed By: #### R ENAL, MG, URIC #### [facility] [address] [place] [address] Dr. Rizwan Fernando Sodium [Moles/Vol] 138 mmol/L Normal 136-145 [facility] Comment on above: Performed By: #### R ENAL, MG, URIC #### [facility] [address] [place] [address] Dr. Rizwan Fernando Urea nitrogen [Mass/Vol] 23.0 mg/dL Critically high 7.0-18.0 [facility] Comment on above: Performed By: #### R ENAL, MG, URIC #### [facility] [address] [place] [address] Dr. Rizwan Fernando Urea nitrogen/Creatinine [Mass ratio] 22.1 mg/mg Normal [facility] Comment on above: Performed By: #### R ENAL, MG, URIC #### [facility] [address] [place] [address] Dr. Rizwan Fernando UA RANDOM W/MICROSCOPICon BACTERIA NONE SEEN Normal NONE SEEN [facility] Comment on above: Performed By: #### R ENAL, MG, URIC #### [facility] [address] [place] [address] Dr. Rizwan Fernando Bilirubin Ql (U) Negative Normal NEGATIVE [facility] Comment on above: Performed By: #### R ENAL, MG, URIC #### [facility] [address] [place] [address] Dr. Rizwan Fernando CAST NONE SEEN Normal NONE SEEN [facility] Comment on above: Performed By: #### R ENAL, MG, URIC #### [facility] [address] [place] [address] Dr. Rizwan Fernando Clarity (U) CLEAR Normal CLEAR [facility] Comment on above: Performed By: #### R ENAL, MG, URIC #### [facility] [address] [place] [address] Dr. Rizwan Fernando Color (U) LT. YELLOW Normal YELLOW [facility] Comment on above: Performed By: #### R ENAL, MG, URIC #### [facility] [address] [address] [address] Rizwan Fernando Crystals LM Nom (Urine sed) NONE SEEN Normal NONE SEEN [facility] Comment on above: Performed By: #### R ENAL, MG, URIC #### [facility] [address] [address] [address] Rizwan Fernando Epithelial cells LM Ql (Urine sed) RARE Normal NONE SEEN /RARE [facility] Comment on above: Performed By: #### R ENAL, MG, URIC #### [facility] [address] [address] [address] Rizwan Fernando Glucose Ql (U) Negative Normal NEGATIVE [facility] Comment on above: Performed By: #### R ENAL, MG, URIC #### [facility] [address] [address] [address] Rizwan Fernando Hemoglobin Ql (U) Negative Normal NEGATIVE [facility] Comment on above: Performed By: #### R ENAL, MG, URIC #### [facility] [address] [address] [address] Rizwan Fernando Ketones Ql (U) Negative Normal NEGATIVE [facility] Comment on above: Performed By: #### R ENAL, MG, URIC #### [facility] [address] [address] [address] Rizwan Fernando LEUKOCYTES TRACE Abnormal NEGATIVE [facility] Comment on above: Performed By: #### R ENAL, MG, URIC #### [facility] [address] [address] [address] Rizwan Fernando MUCOUS NONE SEEN Normal NONE SEEN [facility] Comment on above: Performed By: #### R ENAL, MG, URIC #### [facility] [address] [address] [address] Rizwan Fernando Nitrite Ql (U) Negative Normal NEGATIVE [facility] Comment on above: Performed By: #### R ENAL, MG, URIC #### [facility] [address] [address] [address] Rizwan Fernando pH (U) 6.0 [pH] Normal 5-9 [facility] Comment on above: Performed By: #### R ENAL, MG, URIC #### [facility] [address] [place] [address] Dr. Rizwan Fernando RBC NONE SEEN Abnormal 0-2 [facility] Comment on above: Performed By: #### R ENAL, MG, URIC #### [facility] [address] [place] [address] Dr. Rizwan Fernando SPEC GRAVITY 1.010 Normal 1.005-<=1.025 [facility] Comment on above: Performed By: #### R ENAL, MG, URIC #### [facility] [address] [place] [address] Dr. Rizwan Fernando UA PROTEIN Negative Normal NEGATIVE/ TRACE [facility] Comment on above: Performed By: #### R ENAL, MG, URIC #### [facility] [address] [place] [address] Dr. Rizwan Fernando Urobilinogen Qn (U) 0.2 {Iwl'U}/dL Normal 0.2 - 1. 0 [facility] Comment on above: Performed By: #### R ENAL, MG, URIC #### [facility] [address] [place] [address] Dr. Rizwan Fernando WBC 0-2 Abnormal NONE SEEN [facility] Comment on above: Performed By: #### R ENAL, MG, URIC #### [facility] [address] [place] [address] Dr. Rizwan Fernando URIC ACID SERUMon 12-04-2021 Urate [Mass/Vol] 5.5 mg/dL Normal 2.6-6.0 [facility] Comment on above: Performed By: #### R ENAL, MG, URIC #### [facility] [address] [place] [address] Dr. Rizwan Fernando URINE T PROTEIN CREAT RATIOo n 12-04-2021 Protein (U) [Mass/Vol] 10.7 mg/dL Normal <=12.0 [facility] Comment on above: Performed By: #### R ENAL, MG, URIC #### [facility] [address] [place] [address] Dr. Rizwan Fernando UR PROT CREAT RAT 0.[address] [facility] Comment on above: Performed By: #### R ENAL, MG, URIC #### [facility] [address] [place] [address] Dr. Rizwan Fernando URINE CREAT 59.94 mg/dL Normal 20.00-300.00 [facility] Comment on above: Performed By: #### R ENAL, MG, URIC #### [facility] [address] [place] [address] Dr. Rizwan Fernando VITAMIN B12on 12-04-2021 Cobalamin (Vitamin B12) [Mass/Vol] 1679.0 pg/mL Critically high 193.0-986.0 [facility] Comment on above: Performed By: #### V ITB12 #### [facility] [address] [place] [address] Dr. Rizwan Fernando VITAMIN D 25 OHon 12-04-2021 VIT D 25-OH 38.3 ng/mL Normal [facility] Comment on above: Performed By: #### R ENAL, MG, URIC #### [facility] [address] [place] [address] Dr. Rizwan Fernando VIT D RANGES SEE BELOW Normal [facility] Comment on above: Result Comment: <20 ng/mL Vit D deficient 20 - <30 ng/mL Vit D insufficient 30 - 100 ng/mL Vit D sufficient >100 ng/mL Potential Toxicity Performed By: #### R ENAL, MG, URIC #### [facility] [address] [place] [address] Dr. Rizwan Fernando OVA AND PARASITE EXAMINATION on 06-25-2021 Ova + Parasite Exam Final report Normal [facility] Comment on above: Result Comment: Thes e results were obtained using wet preparation(s) and trichrome stained smear. This test does not include testing for Cryptosporidium parvum, Cyclospora, or Microsporidia. Performed By: #### R ENAL, MG, URIC #### [facility] [address] [place] [address] Dr. Rizwan Fernando Result 1 Comment Normal [facility] Comment on above: Result Comment: No o va, cysts, or parasites seen. . One negative specimen does not rule out the possibility of a parasitic infection. Performed By: #### R ENAL, MG, URIC #### [facility] [address] [place] [address] Dr. Rizwan Fernando A1C HEMOGLOBINon 06-23-2021 HbA1c (Bld) [Mass fraction] 6.1 % [employer] [facility] [employer] Other Glucose - FINGER STICKon Glucose [Mass/Vol] 153 mg/dL [employer] Other HbA1c (Bld) [Mass fraction]o n 06-23-2021 A1C HEMOGLOBIN [facility] [employer] Other STOOL CULTUREon 06-21-2021 Campylobacter Culture Final report Normal [facility] Comment on above: Performed By: #### C XSTOOL #### [facility] [address] [place] [address] Dr. Rizwan Fernando E coli Shiga Toxin EIA Negative Normal Negative [facility] Comment on above: Performed By: #### C XSTOOL #### [facility] [address] [place] [address] Dr. Rizwan Fernando Result 1 Comment Normal [facility] Comment on above: Result Comment: No S almonella or Shigella recovered. Performed By: #### C XSTOOL #### [facility] [address] [place] [address] Dr. Rizwan Fernando Result Comment: No C ampylobacter species isolated. Salmonella/Shigella Screen Final report Normal [facility] Comment on above: Performed By: #### C XSTOOL #### [facility] [address] [place] [address] Dr. Rizwan Fernando C. DIFF PCRon 06-18-2021 C. DIFFICILE PCR Negative Normal NEGATIVE [facility] Comment on above: Performed By: #### R ENAL, MG, URIC #### [facility] [address] [place] [address] Dr. Rizwan Fernando OCC BLD IMMUNOASSAYon 2021 OCCULT BLOOD Negative Normal NEGATIVE [facility] Comment on above: Performed By: #### R ENAL, MG, URIC #### [facility] [address] [place] [address] Dr. Rizwan Fernando FERRITINon 06-12-2021 Ferritin [Mass/Vol] 64.0 ng/mL Normal 11.1-264.0 [facility] Comment on above: Performed By: #### R ENAL, MG, URIC #### [facility] [address] [place] [address] Dr. Rizwan Fernando HEMOGRAM AND PLATELon 2021 Hematocrit (Bld) [Volume fraction] 39.1 % Normal 36.0-48.0 [facility] Comment on above: Performed By: #### R ENAL, MG, URIC #### [facility] [address] [place] [address] Dr. Rizwan Fernando Hemoglobin (Bld) [Mass/Vol] 12.6 g/dL Normal 12.0-16.0 [facility] Comment on above: Performed By: #### R ENAL, MG, URIC #### [facility] [address] [place] [address] Dr. Rizwan Fernando MCH (RBC) [Entitic mass] 28.3 pg Normal 26.7-34.0 [facility] Comment on above: Performed By: #### R ENAL, MG, URIC #### [facility] [address] [place] [address] Dr. Rizwan Fernando MCHC (RBC) [Mass/Vol] 32.2 g/dL Normal 29.9-35.2 [facility] Comment on above: Performed By: #### R ENAL, MG, URIC #### [facility] [address] [place] [address] Dr. Rizwan Fernando MCV (RBC) [Entitic vol] 87.9 fL Normal 81.0-99.0 [facility] Comment on above: Performed By: #### R ENAL, MG, URIC #### [facility] [address] [place] [address] Dr. Rizwan Fernando PLT 181 103/ul Normal 150-450 [facility] Comment on above: Performed By: #### R ENAL, MG, URIC #### [facility] [address] [place] [address] Dr. Rizwan Fernando RBC 4.45 106/ul Normal 4.20-5.40 [facility] Comment on above: Performed By: #### R ENAL, MG, URIC #### [facility] [address] [address] [address] Rizwan Fernando WBC 7.3 103/ul Normal 4.0-11.0 [facility] Comment on above: Performed By: #### R ENAL, MG, URIC #### [facility] [address] [place] [address] Dr. Rizwan Fernando IRON AND TIBCon 06-12-2021 % SATURATION 19.4 % Normal [facility] Comment on above: Performed By: #### R ENAL, MG, URIC #### [facility] [address] [place] [address] Dr. Rizwan Fernando Iron [Mass/Vol] 55.0 ug/dL Normal 37.0-170.0 [facility] Comment on above: Performed By: #### R ENAL, MG, URIC #### [facility] [address] [place] [address] Dr. Rizwan Fernando TIBC DIRECT 284.0 ug/dL Normal 261.0-497.0 [facility] Comment on above: Performed By: #### R ENAL, MG, URIC #### [facility] [address] [place] [address] Dr. Rizwan Fernando MAGNESIUMon 06-12-2021 Magnesium [Mass/Vol] 1.9 mg/dL Normal 1.6-2.3 [facility] Comment on above: Performed By: #### R ENAL, MG, URIC #### [facility] [address] [place] [address] Dr. Rizwan Fernando RENAL FUNCTION PANELon 06-12 Albumin [Mass/Vol] 3.8 g/dL Normal 3.4-5.0 [facility] Comment on above: Performed By: #### R ENAL, MG, URIC #### [facility] [address] [address] [address] Rizawn Fernando Calcium [Mass/Vol] 8.6 mg/dL Normal 8.5-10.1 [facility] Comment on above: Performed By: #### R ENAL, MG, URIC #### [facility] [address] [address] [address] Rizwan Fernando Chloride [Moles/Vol] 102 mmol/L Normal 98-107 [facility] Comment on above: Performed By: #### R ENAL, MG, URIC #### [facility] [address] [address] [address] Rizwan eFrnando CO2 [Moles/Vol] 31.2 mmol/L Critically high 22.0-30.0 [facility] Comment on above: Performed By: #### R ENAL, MG, URIC #### [facility] [address] [place] [address] Dr. Rizwan Fernando Creatinine [Mass/Vol] 1.07 mg/dL Critically high 0.52-1.04 [facility] Comment on above: Performed By: #### R ENAL, MG, URIC #### [facility] [address] [place] [address] Dr. Rizwan Fernando EGFR-AF THAI >60 Normal >=60 [facility] Comment on above: Performed By: #### R ENAL, MG, URIC #### [facility] [address] [place] [address] Dr. Rizwan Fernando EGFR-NON AF THAI 50 mL/min/1.73m2 Critically low >=60 [facility] Comment on above: Performed By: #### R ENAL, MG, URIC #### [facility] [address] [place] [address] Dr. Rizwan Fernando Glucose [Mass/Vol] 122 mg/dL Critically high 74-106 [facility] Comment on above: Performed By: #### R ENAL, MG, URIC #### [facility] [address] [place] [address] Dr. Rizwan Fernando Phosphate [Mass/Vol] 4.6 mg/dL Critically high 2.5-4.5 [facility] Comment on above: Performed By: #### R ENAL, MG, URIC #### [facility] [address] [place] [address] Dr. Rizwan Fernando Potassium [Moles/Vol] 4.1 mmol/L Normal 3.4-5.0 [facility] Comment on above: Performed By: #### R ENAL, MG, URIC #### [facility] [address] [place] [address] Dr. Rizwan Fernando Sodium [Moles/Vol] 138 mmol/L Normal 137-145 [facility] Comment on above: Performed By: #### R ENAL, MG, URIC #### [facility] [address] [place] [address] Dr. Rizwan Fernando Urea nitrogen [Mass/Vol] 27.0 mg/dL Critically high 7.0-18.0 [facility] Comment on above: Performed By: #### R ENAL, MG, URIC #### [facility] [address] [place] [address] Dr. Rizwan Fernando UA RANDOM W/MICROSCOPICon BACTERIA NONE SEEN Normal NONE SEEN [facility] Comment on above: Performed By: #### U AMIC #### [facility] [address] [place] [address] Dr. Rizwan Fernando Bilirubin Ql (U) Negative Normal NEGATIVE [facility] Comment on above: Performed By: #### U AMIC #### [facility] [address] [place] [address] Dr. Rizwan Fernando CAST NONE SEEN Normal NONE SEEN [facility] Comment on above: Performed By: #### U AMIC #### [facility] [address] [place] [address] Dr. Rizwan Fernando Clarity (U) CLEAR Normal CLEAR [facility] Comment on above: Performed By: #### U AMIC #### [facility] [address] [place] [address] Dr. Rizwan Fernando Color (U) LT. YELLOW Normal YELLOW [facility] Comment on above: Performed By: #### U AMIC #### [facility] [address] [address] [address] Rizwan Fernando Crystals LM Nom (Urine sed) NONE SEEN Normal NONE SEEN [facility] Comment on above: Performed By: #### U AMIC #### [facility] [address] [address] [address] Rizwan Fernando Epithelial cells LM Ql (Urine sed) RARE Normal NONE SEEN /RARE [facility] Comment on above: Performed By: #### U AMIC #### [facility] [address] [address] [address] Rizwan Fernando Glucose Ql (U) Negative Normal NEGATIVE [facility] Comment on above: Performed By: #### U AMIC #### [facility] [address] [address] [address] Rizwan Fernando Hemoglobin Ql (U) Negative Normal NEGATIVE [facility] Comment on above: Performed By: #### U AMIC #### [facility] [address] [address] [address] Rizwan Fernando Ketones Ql (U) Negative Normal NEGATIVE [facility] Comment on above: Performed By: #### U AMIC #### [facility] [address] [address] [address] Rizwan Fernando LEUKOCYTES Negative Normal NEGATIVE [facility] Comment on above: Performed By: #### U AMIC #### [facility] [address] [address] [address] Rizwan Fernando MUCOUS NONE SEEN Normal NONE SEEN [facility] Comment on above: Performed By: #### U AMIC #### [facility] [address] [address] [address] Rizwan Fernando Nitrite Ql (U) Negative Normal NEGATIVE [facility] Comment on above: Performed By: #### U AMIC #### [facility] [address] [address] [address] Rizwan Fernando pH (U) 6.0 [pH] Normal 5-9 [facility] Comment on above: Performed By: #### U AMIC #### [facility] [address] [address] [address] Rizwan Fernando RBC NONE SEEN Abnormal 0-2 [facility] Comment on above: Performed By: #### U AMIC #### [facility] [address] [place] [address] Dr. Rizwan Fernando SPEC GRAVITY 1.010 Normal 1.005-<=1.025 [facility] Comment on above: Performed By: #### U AMIC #### [facility] [address] [place] [address] Dr. Rizwan Fernando TRICH NONE SEEN Normal NONE SEEN [facility] Comment on above: Performed By: #### U AMIC #### [facility] [address] [place] [address] Dr. Rizwan Fernando UA PROTEIN Negative Normal NEGATIVE/ TRACE [facility] Comment on above: Performed By: #### U AMIC #### [facility] [address] [place] [address] Dr. Rizwan Fernando Urobilinogen Qn (U) 0.2 {Wil'U}/dL Normal 0.2 - 1. 0 [facility] Comment on above: Performed By: #### U AMIC #### [facility] [address] [place] [address] Dr. Rizwan Fernando WBC NONE SEEN Normal NONE SEEN [facility] Comment on above: Performed By: #### U AMIC #### [facility] [address] [place] [address] Dr. Rizwan Fernando YEAST NONE SEEN Normal NONE SEEN [facility] Comment on above: Performed By: #### U AMIC #### [facility] [address] [place] [address] Dr. Rizwan Fernando URIC ACID SERUMon 06-12-2021 Urate [Mass/Vol] 5.5 mg/dL Normal 2.5-6.2 [facility] Comment on above: Performed By: #### R ENAL, MG, URIC #### [facility] [address] [place] [address] Dr. Rizwan Fernando URINE T PROTEIN CREAT RATIOo n 06-12-2021 Protein (U) [Mass/Vol] 17.5 mg/dL Critically high <=12.0 [facility] Comment on above: Performed By: #### R ENAL, MG, URIC #### [facility] [address] [address] [address] Rizwan Fernando UR PROT CREAT RAT 0.[address] [facility] Comment on above: Performed By: #### R ENAL, MG, URIC #### [facility] [address] [address] [address] Rizwan Fernando URINE CREAT 76.34 mg/dL Normal 20.00-300.00 [facility] Comment on above: Performed By: #### R ENAL, MG, URIC #### [facility] [address] [place] [address] Dr. Rizwan Fernando VITAMIN D 25 OHon 06-12-2021 VIT D 25-OH 41.1 ng/mL Normal [facility] Comment on above: Performed By: #### R ENAL, MG, URIC #### [facility] [address] [place] [address] Dr. Rizwan Fernando VIT D RANGES SEE BELOW Normal [facility] Comment on above: Result Comment: <20 ng/mL Vit D deficient 20 - <30 ng/mL Vit D insufficient 30 - 100 ng/mL Vit D sufficient >100 ng/mL Potential Toxicity Performed By: #### R ENAL, MG, URIC #### [facility] [address] [place] [address] Dr. Rizwan Fernando A1C HEMOGLOBINon 12-17-2020 HbA1c (Bld) [Mass fraction] 5.8 % [employer] Other Glucose - FINGER STICKon Glucose [Mass/Vol] 182 mg/dL [employer] Other HbA1c (Bld) [Mass fraction]o n 12-17-2020 A1C HEMOGLOBIN [employer] Other LOWER EXTREMITY JOINT SURVEY on 09-21-2016 [facility] [place] [id number] Patien t Name: ASHLEY WANG : 1945Sex: FAge: Race: WhiteMRN: [id number]. Location: 86Patient Status: OVisit #: [id number] Date: 09/21/2016 9:05:00 AMCompleted Date: 09/21/2016 09:04 AMRequesting Provider: JACIEL SANTOS Attending Provider: JACIEL SANTOS Report Copy To: Signs & Symptoms: Z96.659 Presence of unspecified artificial knee joint [id number]: AthenaComments: , , , Ordering Provider - JACIEL SANTOS MD , Rendering Provider - JACIEL SANTOS MD , Exam: LOWER EXTREMITY JOINT SURVEYAccession #: [id number] =LOWER EXTREMITY JOINT SURVEY 09/21/2016 9:04 AM EDT SIGNS AND SYMPTOMS: Z96.659 Presence of unspecified artificial knee joint I10 TECHNOLOGIST COMMENTS: ortho follow up nicole knee pain, history of knee replacements 3 yrs ago and 2 yrs ago, QUESTION FOR THE RADIOLOGIST: , , , Ordering Provider - JACIEL SANTOS MD , Rendering Provider - JACIEL SANTOS MD , PROTOCOL: Multiple segmental images [...] knees. Electronically signed by:Donald Engle. Transcribed by: [email or web address], User Resident: Electronically Signed by: DONALD ENGLE @ 09/21/2016 11:55 AM Normal [facility] Comment on above: Order Comment: , , = ========= , Ordering Provider - JACIEL SANTOS MD , Rendering Provider - JACIEL SANTOS MD , Vital Signs Date Time Vital Sign Value Performing Clinician Facility 10-04-2023 13:52-0400 Body height 162.56 cm [facility] 10-04-2023 13:52-0400 Body mass index (BMI) [Ratio] 34.5 kg/m2 [facility] 10-04-2023 13:52-0400 Body weight 91.31 kg [facility] 10-04-2023 13:52-0400 Diastolic blood pressure 72 mm[Hg] [facility] 10-04-2023 13:52-0400 Heart rate 72 /min [facility] 10-04-2023 13:52-0400 Respiratory rate 18 /min [facility] 10-04-2023 13:52-0400 SaO2% (BldA) [Mass fraction] 95 % [facility] 10-04-2023 13:52-0400 Systolic blood pressure 126 mm[Hg] [facility] 06-13-2023 14:04-0400 Body height 162.56 cm PHYSICIAN NO [facility] 06-13-2023 14:04-0400 Body mass index (BMI) [Ratio] 34.9 kg/m2 PHYSICIAN NO [facility] 06-13-2023 14:04-0400 Body temperature 97.2 [degF] PHYSICIAN NO [facility] 06-13-2023 14:04-0400 Body weight 92.16 kg PHYSICIAN NO [facility] 06-13-2023 14:04-0400 Diastolic blood pressure 77 mm[Hg] PHYSICIAN NO [facility] 06-13-2023 14:04-0400 Heart rate 89 /min PHYSICIAN NO [facility] 06-13-2023 14:04-0400 Respiratory rate 16 /min PHYSICIAN NO [facility] 06-13-2023 14:04-0400 SaO2% (BldA) [Mass fraction] 99 % PHYSICIAN NO [facility] 06-13-2023 14:04-0400 Systolic blood pressure 128 mm[Hg] PHYSICIAN NO [facility] 04-13-2023 14:11-0500 Body height 161.3 cm Carlos Baer DPM Work Phone: [facility] 04-13-2023 14:11-0500 Body mass index (BMI) [Ratio] 35.57 kg/m2 Carlos Baer DPM Work Phone: [facility] 04-13-2023 14:11-0500 Body weight 92.53 kg Carlos Baer DPM Work Phone: [facility] 03-31-2023 14:15-0500 Body height 162.56 cm PHYSICIAN NO [facility] 03-31-2023 14:15-0500 Body weight 93.53 kg PHYSICIAN NO [facility] 03-31-2023 14:15-0500 Diastolic blood pressure 70 mm[Hg] PHYSICIAN NO [facility] 03-31-2023 14:15-0500 Systolic blood pressure 120 mm[Hg] PHYSICIAN NO [facility] 12-14-2022 14:40-0400 Body height 162.56 cm Eboni Buck Other [facility] Other 12-14-2022 14:40-0400 Body mass index (BMI) [Ratio] 37.62 kg/m2 Eboni Buck Other [facility] Other 12-14-2022 14:40-0400 Body temperature 96.3 [degF] Eboni Buck Other [facility] Other 12-14-2022 14:40-0400 Body weight 99.43 kg Eboni Buck Other [facility] Other 12-14-2022 14:40-0400 Diastolic blood pressure 80 mm[Hg] Eboni Buck Other [facility] Other 12-14-2022 14:40-0400 Respiratory rate 18 /min Eboni Buck Other [facility] Other 12-14-2022 14:40-0400 SaO2% (BldA) [Mass fraction] 98 % Eboni Buck Other [facility] Other 12-14-2022 14:40-0400 Systolic blood pressure 120 mm[Hg] Eboni Buck Other [facility] Other 09-29-2022 14:45-0400 Body height 162.56 cm Tondra Mapus Other [facility] Other 09-29-2022 14:45-0400 Body mass index (BMI) [Ratio] 37.38 kg/m2 Tondra Mapus Other [facility] Other 09-29-2022 14:45-0400 Body weight 98.79 kg Tondra Mapus Other [facility] Other 09-29-2022 14:45-0400 Diastolic blood pressure 85 mm[Hg] Tondra Mapus Other [facility] Other 09-29-2022 14:45-0400 Respiratory rate 18 /min Tondra Mapus Other [facility] Other 09-29-2022 14:45-0400 SaO2% (BldA) [Mass fraction] 99 % Tondra Mapus Other [facility] Other 09-29-2022 14:45-0400 Systolic blood pressure 149 mm[Hg] Tondra Mapus Other [facility] Other 06-08-2022 15:00-0400 Body height 162.56 cm Eboni Buck Other [facility] Other 06-08-2022 15:00-0400 Body mass index (BMI) [Ratio] 37.83 kg/m2 Eboni Buck Other [facility] Other 06-08-2022 15:00-0400 Body weight 99.97 kg Eboni Buck Other [facility] Other 06-08-2022 15:00-0400 Diastolic blood pressure 78 mm[Hg] Eboni Buck Other [facility] Other 06-08-2022 15:00-0400 Respiratory rate 18 /min Eboni Buck Other [facility] Other 06-08-2022 15:00-0400 SaO2% (BldA) [Mass fraction] 97 % Eboni Buck Other [facility] Other 06-08-2022 15:00-0400 Systolic blood pressure 136 mm[Hg] Eboni Buck Other [facility] Other 03-31-2022 16:45-0500 Body height 162.56 cm Tondra Mapus Other [facility] Other 03-31-2022 16:45-0500 Body mass index (BMI) [Ratio] 37.96 kg/m2 Tondra Mapus Other [facility] Other 03-31-2022 16:45-0500 Body weight 100.34 kg Tondra Mapus Other [facility] Other 03-31-2022 16:45-0500 Diastolic blood pressure 83 mm[Hg] Tondra Mapus Other [facility] Other 03-31-2022 16:45-0500 Respiratory rate 18 /min Tondra Mapus Other [facility] Other 03-31-2022 16:45-0500 SaO2% (BldA) [Mass fraction] 97 % Tondra Mapus Other [facility] Other 03-31-2022 16:45-0500 Systolic blood pressure 151 mm[Hg] Tondra Mapus Other [facility] Other 12-21-2021 15:00-0400 Body height 162.56 cm Tondra Mapus Other [facility] Other 12-21-2021 15:00-0400 Body mass index (BMI) [Ratio] 37.76 kg/m2 Tondra Mapus Other [facility] Other 12-21-2021 15:00-0400 Body weight 99.79 kg Tondra Mapus Other [facility] Other 12-21-2021 15:00-0400 Diastolic blood pressure 81 mm[Hg] Tondra Mapus Other [facility] Other 12-21-2021 15:00-0400 Respiratory rate 20 /min Tondra Mapus Other [facility] Other 12-21-2021 15:00-0400 SaO2% (BldA) [Mass fraction] 99 % Tondra Mapus Other [facility] Other 12-21-2021 15:00-0400 Systolic blood pressure 141 mm[Hg] Tondra Mapus Other [facility] Other 12-14-2021 15:20-0400 Body height 162.56 cm Eboni Buck Other [facility] Other 12-14-2021 15:20-0400 Body mass index (BMI) [Ratio] 37.66 kg/m2 Eboni Buck Other [facility] Other 12-14-2021 15:20-0400 Body temperature 96.7 [degF] Eboni Buck Other [facility] Other 12-14-2021 15:20-0400 Body weight 99.52 kg Eboni Buck Other [facility] Other 12-14-2021 15:20-0400 Diastolic blood pressure 87 mm[Hg] Eboni Buck Other [facility] Other 12-14-2021 15:20-0400 Respiratory rate 18 /min Eboni Buck Other [facility] Other 12-14-2021 15:20-0400 SaO2% (BldA) [Mass fraction] 96 % Eboni Buck Other [facility] Other 12-14-2021 15:20-0400 Systolic blood pressure 153 mm[Hg] Eboni Buck Other [facility] Other 09-23-2021 10:55-0400 Body height 162.56 cm Kristin Janae Other [facility] Other 09-23-2021 10:55-0400 Body mass index (BMI) [Ratio] 37.24 kg/m2 Kristin Janae Other [facility] Other 09-23-2021 10:55-0400 Body temperature 99.2 [degF] Kristin Janae Other [facility] Other 09-23-2021 10:55-0400 Body weight 98.43 kg Kristin Janae Other [facility] Other 09-23-2021 10:55-0400 Diastolic blood pressure 74 mm[Hg] Kristin Janae Other [facility] Other 09-23-2021 10:55-0400 Respiratory rate 18 /min Kristin Janae Other [facility] Other 09-23-2021 10:55-0400 SaO2% (BldA) [Mass fraction] 98 % Kristin Janae Other [facility] Other 09-23-2021 10:55-0400 Systolic blood pressure 129 mm[Hg] Kristin Cardoso Other [facility] Other 06-23-2021 15:30-0400 Body height 162.56 cm Tondra Mapus Other [facility] Other 06-23-2021 15:30-0400 Body mass index (BMI) [Ratio] 37.59 kg/m2 Tondra Mapus Other [facility] Other 06-23-2021 15:30-0400 Body weight 99.34 kg Tondra Mapus Other [facility] Other 06-23-2021 15:30-0400 Diastolic blood pressure 76 mm[Hg] Tondra Mapus Other [facility] Other 06-23-2021 15:30-0400 Respiratory rate 16 /min Tondra Mapus Other [facility] Other 06-23-2021 15:30-0400 SaO2% (BldA) [Mass fraction] 99 % Tondra Mapus Other [facility] Other 06-23-2021 15:30-0400 Systolic blood pressure 121 mm[Hg] Tondra Mapus Other [facility] Other 06-17-2021 15:00-0400 Body height 162.56 cm Eboni Buck Other [facility] Other 06-17-2021 15:00-0400 Body mass index (BMI) [Ratio] 37.59 kg/m2 Eboni Buck Other [facility] Other 06-17-2021 15:00-0400 Body temperature 97.2 [degF] Eboni Buck Other [facility] Other 06-17-2021 15:00-0400 Body weight 99.34 kg Eboni Buck Other [facility] Other 06-17-2021 15:00-0400 Diastolic blood pressure 81 mm[Hg] Eboni Buck Other [facility] Other 06-17-2021 15:00-0400 Respiratory rate 18 /min Eboni Buck Other [facility] Other 06-17-2021 15:00-0400 SaO2% (BldA) [Mass fraction] 95 % Eboni Buck Other [facility] Other 06-17-2021 15:00-0400 Systolic blood pressure 137 mm[Hg] Eboni Buck Other [facility] Other 12-23-2020 14:40-0400 Body height 162.56 cm Eboni Buck Other [facility] Other 12-23-2020 14:40-0400 Body mass index (BMI) [Ratio] 38.21 kg/m2 Eboni Buck Other [facility] Other 12-23-2020 14:40-0400 Body temperature 97.3 [degF] Eboni Buck Other [facility] Other 12-23-2020 14:40-0400 Body weight 100.97 kg Eboni Buck Other [facility] Other 12-23-2020 14:40-0400 Diastolic blood pressure 83 mm[Hg] Eboni Buck Other [facility] Other 12-23-2020 14:40-0400 Respiratory rate 18 /min Eboni Buck Other [facility] Other 12-23-2020 14:40-0400 SaO2% (BldA) [Mass fraction] 93 % Eboni Buck Other [facility] Other 12-23-2020 14:40-0400 Systolic blood pressure 127 mm[Hg] Eboni Buck Other [facility] Other 12-17-2020 15:15-0400 Body height 162.56 cm Tondra Mapus Other [facility] Other 12-17-2020 15:15-0400 Body mass index (BMI) [Ratio] 37.76 kg/m2 Tondra Mapus Other [facility] Other 12-17-2020 15:15-0400 Body weight 99.79 kg Tondra Mapus Other [facility] Other 12-17-2020 15:15-0400 Diastolic blood pressure 80 mm[Hg] Tondra Mapus Other [facility] Other 12-17-2020 15:15-0400 Respiratory rate 20 /min Tondra Mapus Other [facility] Other 12-17-2020 15:15-0400 SaO2% (BldA) [Mass fraction] 97 % Bernardino Talavera Other [facility] Other 12-17-2020 15:15-0400 Systolic blood pressure 133 mm[Hg] Bernardino Talavera Other [facility] Other Encounters Encounter Date Encounter Type Care Provider Facility Start: 12-02-2023 End: 12-02-2023 ambulatory JESENIA JORGE Not Available Start: 11-30-2023 End: 11-30-2023 Bamboo flowsheet Leo Goodwin PT Work Phone: [facility] Start: 11-30-2023 End: 11-30-2023 Bamboo flowsheet Leo Goodwin PT Work Phone: [facility] Start: 11-30-2023 End: 11-30-2023 ambulatory LEO GOODWIN [facility] Comment on above: Acute pain of right shoulder (Primary Dx); Shoulder stiffness, right Start: 11-28-2023 End: 11-28-2023 ambulatory DANA TAPIA Not Available Start: 11-24-2023 End: 11-24-2023 ambulatory LEO GOODWIN Not Available Start: 11-14-2023 End: 11-14-2023 ambulatory MAY PULIDO Not Available Start: 10-17-2023 End: 10-17-2023 ambulatory MAY PULIDO Not Available Start: 10-13-2023 End: 10-13-2023 ambulatory CARLOS BAER Not Available Start: 10-05-2023 End: 10-05-2023 Evaluation and management of inpatient ANDRÉS VAZQUEZ [facility] Start: 10-05-2023 End: 10-05-2023 [facility] Start: 10-04-2023 End: 10-04-2023 ambulatory [facility] Work Phone: Start: 10-04-2023 End: 10-04-2023 Patient encounter procedure [facility] Work Phone: Start: 09-28-2023 Preoperative state Leo young PT Work Phone: [facility] Start: 09-28-2023 End: 09-28-2023 ambulatory DANA TAPIA Not Available Start: 09-27-2023 End: 09-27-2023 ambulatory JEFFREY BLOOM [facility] Start: 09-27-2023 Encounter for other [facility]procedural [facility] Start: 09-22-2023 End: 09-22-2023 ambulatory JEFFREY BLOOM Not Available Start: 09-14-2023 End: 09-14-2023 ambulatory MAY PULIOD Not Available Start: 09-12-2023 End: 09-12-2023 ambulatory MAY PULIDO Not Available Start: 07-12-2023 End: 07-12-2023 ambulatory CARLOS BAER Not Available Start: 07-07-2023 End: 07-07-2023 ambulatory MAY PULIDO Not Available Start: 06-23-2023 End: 06-23-2023 ambulatory MAY PULIDO Not Available Start: 06-20-2023 End: 06-20-2023 ambulatory DANA TAPIA Not Available Start: 06-13-2023 End: 06-13-2023 ambulatory PHYSICIAN NO [facility] Work Phone: Start: 06-13-2023 End: 06-13-2023 Patient encounter procedure PHYSICIAN NO [facility] Physician [facility] Work Phone: Start: 06-07-2023 Non-patient / Non-visit PHYSICIAN NO [facility] Physician [facility] Work Phone: Start: 05-11-2023 Non-patient / Non-visit PHYSICIAN NO [facility] Work Phone: Start: 04-13-2023 End: 04-13-2023 Patient encounter procedure Carlos Baer DPM Work Phone: [facility] Comment on above: Dermatophytosis of n ail (Primary Dx); Dystrophic nail; Pain around toenail, right foot; Pain around toenail, left foot Start: 04-13-2023 End: 04-13-2023 ambulatory CARLOS BAER Not Available Start: 04-13-2023 Bamboo flowsheet Carlos London er DPM Work Phone: [facility] Start: 04-13-2023 Bamboo flowsheet Carlos London er DPM Work Phone: [facility] Start: 03-31-2023 End: 04-01-2023 ambulatory Tondra K Mapus Facility:[facility] Start: 03-31-2023 End: 03-31-2023 ambulatory PHYSICIAN NO [facility] Work Phone: Start: 03-31-2023 End: 03-31-2023 Discharged Recurring PHYSICIAN NO [facility] Work Phone: Start: 03-31-2023 End: 03-31-2023 Patient encounter procedure PHYSICIAN NO [facility]- Start: 03-28-2023 End: 03-28-2023 ambulatory DANA AICHHOLZ Not Available Start: 03-28-2023 Patient encounter procedure Carlos Baer DPM Work Phone: [facility] Start: 03-25-2023 End: 03-25-2023 ambulatory TONDRA K MAPUS [facility] Start: 03-03-2023 End: 03-03-2023 ambulatory Eboni Buck Other [facility] Other Start: 03-03-2023 Telephone encounter Eboni Buck [facility] Start: 02-07-2023 End: 02-07-2023 ambulatory DANA AICHHOLZ Not Available Start: 01-11-2023 End: 01-11-2023 ambulatory CARLOS BAER Not Available Start: 12-14-2022 End: 12-14-2022 ambulatory Eboni Buck Other [facility] Other Start: 12-14-2022 Office outpatient vi sit 15 minutes Eboni Buck [facility] Start: 09-29-2022 (DM) Diabetes Tondra Mapus [facility] Start: 09-29-2022 End: 09-29-2022 ambulatory Tondra Mapus Other [facility] Other Start: 09-03-2022 End: 09-03-2022 ambulatory Tondra Mapus Other [facility] Other Start: 09-03-2022 Telephone encounter Tondra Mapus [facility] Start: 06-08-2022 End: 06-08-2022 ambulatory Eboni Buck Other [facility] Other Start: 06-08-2022 Office outpatient vi sit 25 minutes Eboni Buck [facility] Start: 06-02-2022 End: 06-03-2022 ambulatory EBONI BUCK Facility:[facility] Start: 04-01-2022 End: 04-01-2022 ambulatory Tondra Mapus Other [facility] Other Start: 04-01-2022 Telephone encounter Tondra Mapus [facility] Start: 03-31-2022 (DM) Diabetes Tondra Mapus [facility] Start: 03-31-2022 End: 03-31-2022 ambulatory Tondra Mapus Other [facility] Other Start: 03-31-2022 Telephone encounter Eboni Buck [facility] Start: 03-30-2022 End: 03-31-2022 ambulatory TONDRA MAPUS Facility:[facility] Start: 02-05-2022 End: 02-06-2022 ambulatory TECHNOLOGY COORDINATOR DANA AICBIANCAZ Facility:[facility] Start: 01-14-2022 End: 01-14-2022 ambulatory Eboni Bcuk Other [facility] Other Start: 01-14-2022 Telephone encounter Eboni Buck [facility] Start: 12-29-2021 End: 12-29-2021 ambulatory Eobni Buck Other [facility] Other Start: 12-29-2021 Telephone encounter Eboni Buck [facility] Start: 12-22-2021 End: 12-23-2021 ambulatory EBONI BUCK Facility:[facility] Start: 12-21-2021 (DM) Diabetes Tondra Mapus [facility] Start: 12-21-2021 End: 12-21-2021 ambulatory Tondra Mapus Other [facility] Other Start: 12-14-2021 End: 12-14-2021 ambulatory Eboni Buck Other [facility] Other Start: 12-14-2021 Office outpatient vi sit 25 minutes Eboni Buck [facility] Start: 12-04-2021 End: 12-05-2021 ambulatory TONDRA MAPUS Facility:[facility] Start: 09-23-2021 End: 09-23-2021 ambulatory Kristin Janae Other [facility] Other Start: 09-23-2021 Office outpatient vi sit 15 minutes Kristin Janae [facility] Start: 06-23-2021 (DM) Diabetes Tondra Mapus [facility] Start: 06-23-2021 End: 06-23-2021 ambulatory Tondra Mapus Other [facility] Other Start: 06-18-2021 End: 06-18-2021 ambulatory TECHNOLOGY COORDINATOR DANATaco TAPIA Facility:[facility] Start: 06-17-2021 End: 06-17-2021 ambulatory LIZETTE TAPIA [facility] Other Start: 06-17-2021 Office outpatient vi sit 25 minutes Eboni Buck [facility] Start: 06-12-2021 End: 06-13-2021 ambulatory EBONI BUCK Facility:[facility] Start: 06-09-2021 End: 06-09-2021 ambulatory Bernardino Talavera Other [facility] [employer] Other Start: 06-09-2021 Telephone encounter Bernardino Talavera [facility] Start: 12-23-2020 Office outpatient vi sit 15 minutes Eboni Buck [facility] Start: 12-17-2020 (DM) Diabetes Tondra Talavera [facility] Start: 12-05-2020 ([facility] C Vac) [facility] Co vid Vaccine Nataleevijay Camacho [facility] Start: 09-21-2016 End: 09-22-2016 Ambulatory JACIEL SANTOS Facility:[facility] Plan of Treatment Date Care Activity Detail Author Start: 12-10-2024 Glaucoma screening Diabetes: R etinopathy Screening [facility] Start: 06-06-2024 Urine screening for protein Diabetes: Urine Protein Screening [facility] Start: 04-05-2024 Hemoglobin A1c measurement Diabetes: Hemoglobin A1C [facility] Start: 03-28-2024 Medicare Annual Wellness (AWV) Medicare Annual Wellness (AWV) [facility] Start: 01-16-2024 End: 01-16-2024 Patient encounter procedure 01/16/2024 2:15 PM EST Procedure Visit [facility] [address] [facility] [place] [address] Carlos Baer DPM [address] [place] [address] [facility] Start: 01-11-2024 End: 01-11-2024 Patient encounter procedure 01/11/2024 2:20 PM EST Office Visit [facility] [address] [place] [address] Dana Tapia, [employer] [address] [place] [address] [facility] Start: 12-12-2023 End: 12-12-2023 Patient encounter procedure 12/12/2023 8:30 AM EDT Office Visit [facility] [address] [place] [phone] Jr. Carlin Holley, DO [address] [facility] [place] [address] [facility] Start: 12-09-2023 End: 12-09-2023 ambulatory 12/09/2023 7:30 AM EDT Treatment [facility] [address] [place] [phone] Jesenia Jorge, ISO COORDINATOR [address] [place] [address] [facility] Start: 12-07-2023 End: 12-07-2023 ambulatory 12/07/2023 2:00 PM EDT Treatment [facility] [address] [place] [phone] Leo Goodwin, PT [address] [place] [address] [facility] Start: 12-02-2023 End: 12-02-2023 ambulatory 12/02/2023 2:00 PM EDT Treatment [facility] [address] [place] [phone] Jesenia Jorge, ISO COORDINATOR [address] [place] [address] [facility] Start: 11-30-2023 End: 11-30-2023 ambulatory 11/30/2023 7:00 AM EDT Treatment [facility] [address] [place] [address] Leo Goodwin, PT [address] [place] [address] Arrived [facility] Comment on above: Arrived Start: 09-26-2023 End: 09-26-2023 Patient encounter procedure 09/26/2023 2:20 PM EDT Office Visit [facility] [address] [place] [address] Dana Tapia, [employer] [address] [place] [address] [facility] Start: 07-12-2023 End: 07-12-2023 Patient encounter procedure 07/12/2023 2:15 PM EDT Procedure Visit [facility] [address] [place] [phone] Carlos Baer DPM [address] [address] [facility] Start: 06-29-2023 Hemoglobin A1c measurement Diabetes: Hemoglobin A1C [facility] Start: 04-13-2023 End: 04-13-2023 Patient encounter procedure 04/13/2023 2:15 PM EST Procedure Visit [facility] [address] [place] [id number] Carlos Baer DPTamara [address] [place] [address] [facility] Comment on above: Arrived Renal function 2000 panel - Serum or Plasma [facility] Immunizations Immunization Date Immunization Notes Care Provider Fa cili 11-22-2023 Seasonal trivalent influenza vaccine, adjuvanted, preservative free Leo Goodwin PT Work Phone: [facility] 12-04-2022 Influenza, High-dose Seasonal, Quadrivalent, Preservative Free Leo Buddy PT Work Phone: [facility] 03-19-2022 zoster vaccine recombinant Leo Buddy PT Work Phone: [facility] 12-06-2021 Influenza, High-dose Seasonal, Quadrivalent, Preservative Free Leo Buddy PT Work Phone: [facility] 11-10-2021 zoster vaccine recombinant Leo Buddy PT Work Phone: [facility] 12-05-2020 COVID-19 Pfizer Natalee Fitt Other [facility] 11-30-2020 Influenza, High-dose Seasonal, Quadrivalent, Preservative Free Leo Buddy PT Work Phone: [facility] 04-25-2020 COVID-19 Vaccine Pfi zer - Documentation Purposes Only Natalee Fitt Other [facility] 04-03-2020 COVID-19 Vaccine Pfi zer - Documentation Purposes Only Natalee Fitt Other [facility] 11-12-2019 unknown vaccine or immune globulin Leo Buddy PT Work Phone: [facility] 12-30-2018 influenza, high dose seasonal, preservative-free Leo Buddy PT Work Phone: [facility] 11-17-2017 influenza, high dose seasonal, preservative-free Leo Buddy PT Work Phone: [facility] 12-07-2016 influenza, high dose seasonal, preservative-free Leo Buddy PT Work Phone: [facility] 01-27-2016 influenza, seasonal, injectable, preservative free Leo Buddy PT Work Phone: [facility] 01-27-2016 pneumococcal conjuga te vaccine, 13 valent Leo Buddy PT Work Phone: [facility] 12-03-2014 influenza, seasonal, injectable, preservative free Leo Goodwin PT Work Phone: [facility] 11-23-2013 influenza, seasonal, injectable, preservative free Leo Goodwin PT Work Phone: [facility] 04-14-2012 pneumococcal polysaccharide vaccine, 23 valent Leo Goodwin PT Work Phone: [facility] Healthcare Payers Date Payer Category Payer Unknown AARP AARP [id number] 2022-Present [address] [place] [address] [id number] 2018 Self-pay [id number] 2012 Medicare MEDICARE MEDICAR E PART B [id number] 2012-Present [address] [address] [place] [address] Medicare [id number] 1959 Medicare [id number] [id number] 1959 Unknown [id number] 2.16.840.1.999701.19 1947 Unknown [id number] 2.16.840.1.825390.3.579.2.593 1947 Unknown [id number] 2.16.840.1.964944.3.579.2.593 1947 Unknown [id number] 2.16.840.1.893693.3.579.2.593 1947 Unknown [id number] 2.16.840.1.405523.3.579.2.593 1947 Unknown [id number] 2.16.840.1.853192.3.579.2.593 1947 Unknown [id number] 2.16.840.1.422159.3.579.2.593 1947 Unknown [id number] 2.16.840.1.092916.3.579.2.593 1947 Unknown [id number] 2.16.840.1.925848.3.579.2.593 1947 Unknown [id number] 2.16.840.1.697054.3.579.2.593 1947 Unknown [id number] 2.16.840.1.513363.3.579.2.1286 1947 Unknown [id number] 2.16.840.1.705929.3.579.2.1286 1947 Unknown [id number] 2.16.840.1.731371.3.579.2.1286 1947 Unknown [id number] 2.16.840.1.628395.3.579.2.1286 1947 Unknown [id number] 2.16.840.1.414042.3.579.2.1286 1947 Unknown [id number] 2.16.840.1.063825.3.579.2.1286 1947 Unknown [id number] 2.16.840.1.470177.3.579.2.1286 1947 Unknown [id number] 2.16.840.1.876734.3.579.2.1259 1947 Unknown [id number] 2.16.840.1.779420.3.579.2.1259 1947 Unknown [id number] 2.16.840.1.855447.3.579.2.1259 1947 Unknown [id number] 2.16.840.1.597431.3.579.2.1259 1947 Unknown [id number] 2.16.840.1.114031.3.579.2.1258 1947 Unknown [id number] 2.16.840.1.298444.3.579.2.1258 1947 Unknown [id number] 2.16.840.1.118586.3.579.2.1258 1947 Unknown [id number] 2.16.840.1.696620.3.579.2.1258 1947 Unknown [id number] 2.16.840.1.608285.3.579.2.1258 1947 Unknown [id number] 2.16.840.1.560929.3.579.2.1258 1947 Unknown [id number] 2.16.840.1.287351.3.579.2.1258 1947 Unknown [id number] 2.16.840.1.592694.3.579.2.1258 1947 Unknown [id number] 2.16.840.1.439744.3.579.2.1258 1947 Unknown [id number] 2.16.840.1.895729.3.579.2.1258 1947 Unknown [id number] 2.16.840.1.613011.3.579.2.1258 1947 Unknown [id number] 2.16.840.1.625925.3.579.2.1258 1947 Unknown [id number] 2.16.840.1.855813.3.579.2.1258 1947 Unknown [id number] 2.16.840.1.239367.3.579.2.1258 1947 Unknown [id number] 1945 Unknown [id number] Medicare [id number] Unknown [id number] Social History Date Type Detail Facility Unknown if ever smoked [facility] Start: 03-28-2023 End: 09-28-2023 Sex Assigned At [facility] Start: 10-06-2022 End: 09-28-2023 Tobacco smoking status NHIS Never smoked tobacco [facility] Start: 10-06-2022 End: 09-28-2023 Tobacco use and exposure Smokeless tobacco non-user [facility] Start: 03-28-2023 End: 04-13-2023 Alcohol intake Current drinker of alcohol (finding) [facility] Start: 03-28-2023 End: 09-28-2023 Alcohol intake [facility] Within the last year , have you been afraid of your partner or ex-partner? No [facility] Do you belong to any clubs or organizations such as yazidism groups, [employer], [employer] or athletic groups, or school groups? Yes [facility] Are you now , , , , never or living with a partner? [facility] How often to you hav e a drink containing alcohol? Never [facility] How many standard drinks containing alcohol do you have on a [...] got money to buy more. Never true [facility] Start: 10-06-2022 Alcohol Comment Caffeine intak e: 1-2 cups per day tea [facility] Start: 1945 Sex Assigned At Not on file [facility] Start: 1945 Sex Assigned At Female F [facility] Start: 11-28-2023 Alcoholic beverage intake Lifetime non-drinker (finding) [facility] Start: 09-20-2023 Gender identity Identifies as female gender (finding) [facility] NEGATED: Highlighted rowStart: NINF History of tobacco use Passive smoker [facility] Medical Equipment Procedure Code Equipment Code Equipment Origin al Text Equipment Identifier Dates [id number] Start: 06-28-2022 Clinical Notes 12-05-2020 to 11-30-2023 Leo Binghamgs, PT - 11/30/2023 7:00 AM Alessandra Baer, DPM - 04/13/2023 2:15 PM ESTPatient Instructions Note Date & Type Note Facility 11-30-2023 History of Presen t illness Narrative Images from the original note were not included. Physical Therapy Physical Therapy Evaluation Visit Patient Name: Ashley Wang Today's Date: 11/30/2023 Encounter Diagnoses Name Primary? Acute pain of right shoulder Yes Shoulder stiffness, right Visit number: 2 Sup time: 40 Total time: 60 min Time in: 6:55 am Time out: 7:55 am Subjective Ashley Wang 78 y.o. 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 Precautions: A/P ROM no strengthening at shoulder until cleared Objective R shoulder PROM flex to 95, abd to 95, ER to 33 R shoulder AROM flex to 35, abd to 50, ER to neutral, IR/ext behind back to L5/S1 Significant UT substitution with trying to actively raise arm Min TTP grossly at R shoulder no noted swelling Treatment Interventions Education: HEP education with demonstration, Educated on Eval Findings and POC Manual Therapy: PROM, massage ant shoulder down bicep, lat delt area and UT , gentle stretching, LA mobs/distraction x 15 min repeated cues to help prevent guarding, did more massage than stretching due to great difficulty relaxing and pain Therapeutic Exercise: per SOUMYA grid, ROM, flexibility, strength as appropriate x 25 min sup, 30 total added time to pulleys and UBE 1 min FW, also added wall walks and AA-IR-ER today, wall walks went a little better then AA-cane overhead. Did codmans after wall walks and before AA-cane work. Therapeutic Activity: Exercises to improve dynamic activities, functional tasks, functional mobility to return to prior activity level Modalities: CP/ESU IFC hi-sweep x 12 min with some relief reported Assessment/Plan R shoulder pain, decreased ROM and strength causing greatly increased difficulty with ADLs/self care, s/p RCR 10/05/23 Min improved tolerance, difficult remains with AA overhead remains wall walks went slightly better than cane, advised on using wall and other hand at home. documented in this encounter [facility] 04-13-2023 History of Presen t illness Narrative [...] TONSILLECTOMY and adenoidectomy TOTAL KNEE ARTHROPLASTY Bilateral 2013,, 2014 Family History Family History Problem Relation [...] or corrected. Thank you for your understanding. Carlos Baer DPM documented in this encounter [facility] 04-13-2023 Instructions Carlos Baer DPM - 04/13/2023 2:15 PM EST Topical care measures as noted documented in this encounter [facility] 12-14-2022 Evaluation note Encounter Date Diagnosis Assessment [...] due to the PPI. Continue oral magnesium [facility] 08-02-2023 Evaluation note* Encounter Date Diagnosis [...] or diabetes medication issues. 6. Prescriptions: AZ&ME SATHISH-Stephanie; 7. Prescriptions will not be filled unless [...] it easier material was printed see above [facility] 04-11-2023 Evaluation note* Encounter Date Diagnosis [...] with Tondra. Continue Farxiga, Losartan and Kerendia May, Iron deficiency (ICD-10 - E61.1) Continue oral iron every other day. May, Vitamin deficiency (ICD-10 - E56.9) MBD parameters including calcium, phosphorus, PTH and vitamin D are within the goal. Continue oral vitamin D. May, Hypomagnesemia (ICD-10 - E83.42) He has hypomagnesemia due to the PPI. Continue oral magnesium [facility] 02-01-2023 Evaluation note* Encounter Date Diagnosis [...] for One Touch Test Strips sent to [facility] 03/31/22 7. 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 She follows with Tondra. I would recommend to stop metformin if [...] due to the PPI. Continue oral magnesium [facility] 07-27-2022 Evaluation note* Encounter Date Diagnosis [...] few days, discuss your symptoms with your senior safety management consultant. Follow-up with your family physician if no improvement in 2 to 3 days. Go to the ER for worsening symptoms or concerns Aug, Other General allergi c reactions home care material was printed [facility] 04-26-2022 Evaluation note* Encounter Date Diagnosis [...] it easier material was printed see above [facility] 04-20-2022 Evaluation note* Encounter Date Diagnosis [...] within the goal. Continue oral vitamin D. [facility] Other 04-12-2022 Evaluation note* Encounter Date Diagnosis Assessment Notes Treatment Notes Treatment Clinical Notes May, Type 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 (ICD-10 - E11.22) [facility] 10-26-2021 Evaluation note* Encounter Date Diagnosis [...] within acceptable range. She follows with Tondra. I would recommend to stop metformin if EGFR drops below 30 ml/min Nov, Iron deficiency (ICD-10 - E61.1) Continue oral iron every other day. Nov, Vitamin deficiency (ICD-10 - E56.9) MBD parameters are within the goal. Continue oral vitamin D. [facility] 10-20-2021 Evaluation note* Encounter Date Diagnosis [...] it easier material was printed see above [facility] 10-08-2021 Evaluation note* Encounter Date Diagnosis Assessment Notes Treatment Notes Treatment Clinical Notes Nov, Encounter for immunization (ICD-10 - Z23) Patient presents for COVID-19 vaccination BOOSTER. Pre-screening form answers evaluated with patient. Patient denies current illness or allergic reaction to component of COVID-19 vaccine. Patient provided with current copy of EUA. [facility] Chimv complaint+Reason for visit Narrative* Chief Complaint 6 month f/u / meter Reason for Visit Dietary counseling a nd surveillance Hyperlipidemia Hypertension Type 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 [facility] Work Phone: Evaluation noteNo InformationNort [email or web address] Other Evaluation note* Diagnosis Dermatophytosis of nail- Primary Dystrophic nail Other specified disease of nail Pain around toenail, right foot Pain around toenail, left foot [facility] Phone: Evaluation note* Diagnosis Onset Date Resolution Status CKD (chronic kidney disease) stage 3, GFR 30-59 ml/min acute [id number] acute Hypomagnesemia acute Iron deficiency acute Secondary hyperparathyroidism acute Type 2 diabetes mellitus wit h diabetic chronic kidney disease acute Vitamin D deficiency acute [facility] Work Phone: Evaluation note* Diagnosis Onset Date Resolution Status Dietary counseling and surveillance acute Hyperlipidemia acute Hypertension acute Type 2 diabetes mellitus wit h diabetic chronic kidney disease acute [facility] Work Phone: Evaluation note* Diagnosis Acute pain of right shoulder- Primary Shoulder stiffness, right documented in this encounter [facility] HealthcareHistory general Narrative - Reported* Type Description Date [...] LID TUCK 03/2019 Hospitalization History SEE ABOVE [facility] Other Summary Purpose Family History Relationship Condition Age at Onset Recorded Date/T sweta brother Diabetes mellitus Unknown Malignant neoplasm Unknown Unknown father Heart disease Unknown Hypertension Unknown Diabetes mellitus Unknown History of stroke Unknown Not Specified Unknown sister Malignant neoplasm Unknown Relationship Condition Age at Onset Recorded Date/T sweta brother Diabetes mellitus Unknown Malignant neoplasm Unknown Unknown father Heart disease Unknown Hypertension Unknown Diabetes mellitus Unknown History of stroke Unknown mother Unknown sister Malignant neoplasm Unknown Advance Directives Advance Directive Response Recorded Date/ Time Advance Directives No May 03 12:16pm Advance Directive Response Recorded Date/ Time Advance Directives No May 03 1:16pm Chief Complaint and Reason for Visit Chief Complaint Dm DM Chief Complaint Dm DM Amb Documentation RENAL 6 month f/u Reason for Visit CKD (chronic kidney disease) stage 3, GFR 30-59 ml/min [id number] Hypomagnesemia Iron deficiency Secondary hyperparathyroidism Type 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 Vitamin D deficiency Additional Source Comments INFORMATION SOURCE (unrecogn ized section and content) DATE CREATED AUTHOR 08/24/2017 [facility] DATE CREATED AUTHOR AUTHOR'S ORGANIZ ATION 06/08/2022 [facility] DATE CREATED AUTHOR AUTHOR'S ORGANIZ ATION 04/16/2023 [facility] DATE CREATED AUTHOR AUTHOR'S ORGANIZ ATION 10/07/2023 [facility] DATE CREATED AUTHOR AUTHOR'S ORGANIZ ATION 12/04/2023 [facility] PSYCHIATRIC REASON FOR VISIT (unrecogniz ed section and content) Reason Comments Nail care Ashley Pranay KoehlerWang christiano s a 77 y.o. female who presents for Nail care. BS 120 A1C 6.0 (03/2023) GUS Talavera 04/05/2023 SS: 8.5-9). Specialty Diagnoses / Procedures Referred By Tyshawn conti Referred To Contact Physical Therapy Diagnoses Status post right rotator cuff repair Procedures MT OFFICE/OUTPATIENT NEW HIGH MDM 60 MINUTES May Pulido, ROW BOSS HOEING [address] [place] [address] Leo Goodwin, PT [address] [place] [address] Referral ID Status Reason Start Date Expiration Date Visits Requested Visits Authorized [id number] Authorized Specialty Services Required 11/14/2023 05/12/2024 30 30 Care Teams (unrecognized sec tion and content) Audio Technician Relationship Specialty Start Date End Date Lex Choi MD [address] [place] [phone] PCP - General Family Medicine 02/07/23 Dana Tapia NP [address] [place] [phone] Nurse Practitioner Family Medicine 10/11/22 Audio Technician Relationship Specialty Start Date End Date Lex Choi MD [address] [place] [phone] PCP - General Family Medicine 02/07/23 Dana Tapia NP [address] [place] [phone] Nurse Practitioner Family Medicine 10/11/22 Team Status: Active Member Role Status Dates Lex Choi MD Primary Care Provider Active Team Status: Inactive Member Role Status Dates Bernardino Talavera APRN Attending Provider Active Start: [...] 2023 End: March 31, 2023 Team Status: Active Member Role Status Dates Lex Choi MD Primary Care Provider Active S tart: May 11, 2023 Isaura López CMA Attending Provider Active St art: May 11, 2023 Team Status: Active Member Role Status Dates Lex Choi MD Primary Care Provider Active S tart: June 07, 2023 Eboni White MD Attending Provider Active Start : June 07, 2023 Team Status: Inactive Member Role Status Dates Lex Choi MD Primary Care Provider Active S tart: June 13, 2023 End: June 13, 2023 Eboni White MD Attending Provider Active Start : June 13, 2023 End: June 13, 2023 Team Status: Inactive Member Role Status Dates Lex Choi MD Primary Care Provider Active S tart: October 04, 2023 End: October 04, 2023 Bernardino Talavera APRN Attending Provider Active Start: October 04, 2023 End: October 04, 2023 Audio Technician Relationship Specialty Start Date End Date Lex Choi MD [address] [place] [phone] PCP - General Family Medicine 02/07/23 Dana Tapia NP [address] [place] [phone] Nurse Practitioner Family Medicine 10/11/22 Audio Technician Relationship Specialty Start Date End Date Lex Choi MD [address] [place] [phone] PCP - General Family Medicine 02/07/23 Dana Tapia NP [address] [place] [phone] Nurse Practitioner Family Medicine 10/11/22 Goals (unrecognized section and content) Goals may [...] BE BASED ON THE PRIMARY CLINICAL RECORDS. [employer] provides no warranty or guarantee of the accuracy or completeness of information in this document.
[2023-12-06 08:10] LABS: Hematocrit 40.9 % (36.0-48.0); Hemoglobin 13.2 g/dL (12.0-16.0); Mean Corpuscular HGB Conc 32.3 g/dL (29.9-35.2); Mean Corpuscular Hemoglobin 29.9 pg (26.7-34.0); Mean Corpuscular Volume 92.7 fL (81.0-99.0); Mean Platelet Volume 8.9 fL (9.5-13.5); Platelet Count 162 10^3/uL (150-450); Red Blood Count 4.41 10^6/uL (4.20-5.40); Red Cell Distribution Width 12.4 % (11.0-15.0); White Blood Count 5.1 10^3/uL (4.0-11.0)
[2023-12-06 08:21] LABS: Bilirubin Urine NEGATIVE (NEGATIVE); Blood Urine NEGATIVE (NEGATIVE); Clarity Urine CLEAR (CLEAR); Color Urine LT. YELLOW (YELLOW); Glucose Urine UA 250 mg/dL (NEGATIVE); Ketones Urine NEGATIVE (NEGATIVE); Leukocyte Esterase Urine NEGATIVE (NEGATIVE); Nitrite Urine NEGATIVE (NEGATIVE); Protein Urine NEGATIVE (NEG/TRACE); Urobilinogen Urine 0.2 EU/dL (0.2-1.0)
[2023-12-06 08:29] LABS: Bacteria Urine NONE SEEN #/HPF (NONE SEEN); Cast Seen? NONE SEEN #/LPF (NONE SEEN); Crystals Seen? None Seen #/HPF (None Seen); Mucus Urine NONE SEEN (NONE SEEN); RBC Urine 0-2 #/HPF (0-2); Squamous Epithelial Cell Urine RARE #/LPF (NONE/RARE); WBC Urine 0-2 #/HPF (NONE SEEN)
[2023-12-06 08:48] LABS: Creatinine Urine Random 48.03 mg/dL (20.00-300.00); Protein Creatinine Ratio Urine 0.12
[2023-12-06 08:53] LABS: Albumin Level 3.6 g/dL (3.4-5.0); BUN Creatinine Ratio 21.2; Chloride 101 mmol/L (98-107); Estimated GFR (African America 57 (>=60 mL/min/1.73m^2); Estimated GFR (Non-African Ame 47 (>=60 mL/min/1.73m^2); Glucose 99 mg/dL (74-106); Magnesium 1.9 mg/dL (1.8-2.4); Phosphorus 4.6 mg/dL (2.6-4.7); Sodium 137 mmol/L (136-145); Uric Acid 4.2 mg/dL (2.6-6.0)
[2023-12-06 10:21] LABS: Percent Iron Saturation 15.1 %
[2023-12-07 12:09] LABS: PTH, Intact 38 pg/mL (15-65)
== END 2023-12-06 07:37 | disposition home or self-care (01) ==
LOC: LAB 07:38
PROVIDERS: PCP Nurse Practitioner; Visit Provider Internal Medicine
DX: E11.22 Type 2 diabetes mellitus with diabetic chronic kidney disease (principal); N18.31 Chronic kidney disease, stage 3a; E78.5 Hyperlipidemia, unspecified; E55.9 Vitamin D deficiency, unspecified; N25.81 Secondary hyperparathyroidism of renal origin; E61.1 Iron deficiency; I12.9 Hypertensive chronic kidney disease with stage 1 through stage 4 chronic kidney disease, or unspecified chronic kidney disease; N18.30 Chronic kidney disease, stage 3 unspecified
CPT/HCPCS: 36415; 80061; 80069; 81001; 82306; 82570; 82728; 83540; 83550; 83735; 83970; 84156; 84550; 85027

== ENCOUNTER 2023-12-06 07:42 | Outpatient (OUT) | payer MEDICARE, SELFPAY ==
--- OUTSIDE RECORDS SUMMARY | 2023-12-06 07:46 | XMS_ITS | CCD ---
Author Organization [facility] Care Team Providers Care Wet Machine Cutter Name Role Phone JACIEL SANTOS Unavailable Unavailable JACIEL SANTOS Unavailable Unavailable JACIEL SANTOS Unavailable Unavailable JACKLYN STARR Unavailable Unavailable Natalee Camacho Unavailable Mapus, Tondra Unavailable Buck, Eboni Unavailable Kristin Cardoso Unavailable AICHHOLZ, MACHINE LONG GOODS HELPER DANA Admitting Unavailable AICHHOLZ, MACHINE LONG GOODS HELPER DANA Attending Unavailable AICHHOLZ, MACHINE LONG GOODS HELPER DANA Primary Care Unavailable DR ANDRÉS ESCALONA V Consulting Unavailable AICHHOLZ, MACHINE LONG GOODS HELPER DANA Consulting Unavailable MAPUS, TONDRA Admitting Unavailable MAPUS, TONDRA Attending Unavailable AICHHOLZ, MACHINE LONG GOODS HELPER DANA Primary Care Unavailable MAPUS, TONDRA Consulting Unavailable BUCK, EBONI Admitting Unavailable BUCK, EBONI Attending Unavailable AICHHOLZ, MACHINE LONG GOODS HELPER DANA Primary Care Unavailable BUCK, EBONI Consulting Unavailable BUCK, EBONI Admitting Unavailable BUCK, EBONI Attending Unavailable AICHHOLZ, MACHINE LONG GOODS HELPER DANA Primary Care Unavailable AICHHOLZ, MACHINE LONG GOODS HELPER DANA Consulting Unavailable BUCK, EBONI Consulting Unavailable AICHHOLZ, MACHINE LONG GOODS HELPER DANA Admitting Unavailable AICHHOLZ, MACHINE LONG GOODS HELPER DANA Attending Unavailable AICHHOLZ, MACHINE LONG GOODS HELPER DANA Primary Care Unavailable AICHHOLZ, MACHINE LONG GOODS HELPER DANA Consulting Unavailable AICHHOLZ, MACHINE LONG GOODS HELPER DANA Admitting Unavailable AICHHOLZ, MACHINE LONG GOODS HELPER DANA Attending Unavailable AICHHOLZ, MACHINE LONG GOODS HELPER DANA Primary Care Unavailable AICHHOLZ, MACHINE LONG GOODS HELPER DANA Consulting Unavailable BUCK, EBONI Admitting Unavailable BUCK, EBONI Attending Unavailable AICHHOLZ, MACHINE LONG GOODS HELPER DANA Primary Care Unavailable BUCK, EBONI Consulting Unavailable MAPUS, TONDRA Admitting Unavailable MAPUS, TONDRA Attending Unavailable AICHHOLZ, MACHINE LONG GOODS HELPER DANA Primary Care Unavailable MAPUS, TONDRA Consulting Unavailable BUCK, EBONI Admitting Unavailable BUCK, EBONI Attending Unavailable AICHHOLZ, MACHINE LONG GOODS HELPER DANA Primary Care Unavailable UBCK, EBONI Consulting Unavailable Aichholz HHA, Dana Unavailable Jimbo VALE, Lex Primary Care Provider NO FAMILY, PHYSICIAN Primary Care Provider Unava ilable Mapus, PHLEBOTOMIST MEDICAL LAB ASSISTANT Tondra K Attending Provider [phone] Mapus, Tondra K Attending Unavailable Mapus, Tondra K Admitting Unavailable NO FAMILY, PHYSICIAN Primary Care Unavailable NO FAMILY, PHYSICIAN Primary Care Provider Unava ilable Mapus, PHLEBOTOMIST MEDICAL LAB ASSISTANT Tondra K Attending Provider AICHHOLZ, DANA [...] AICHHOLZ, DANA J Primary Care Unavailable Aichholz HHA, Dana Unavailable Jimbo VALE, Lex Primary Care [...] (20 sources) Sulfamethoxazole / Trimethoprim Drug Allergy [facility] Other (18 sources) semaglutide Drug Allergy 03-31-19 24 diarrhea [facility] (13 sources) Soy Protein Shake Drug allergy Unknown [facility] Other (14 sources) metFORMIN Drug Allergy 03-31-19 24 g/i s/e [facility] (5 sources) Soy Balance Drug allergy [facility] Other (4 sources) Sulfonamides (Antibiotic) Drug Allergy 10-29-19 17 Hives, Rash [facility] (4 sources) Wound Dressing Adhesive Drug Allergy 09-16-19 23 Unknown [facility] (5 sources) Soy protein; Translations: [soy] Allergy to substance 12-09-19 22 Unknown Reaction [facility] (4 sources) Sulfamethoxazole; Translations: [sulfamethoxazole] Drug Allergy 03-31-19 [facility] (4 sources) Trimethoprim; Translations: [trimethoprim] Drug Allergy 03-31-19 24 [facility] (1 source) metFORMIN Drug Allergy 03-31-19 [facility] (1 source) semaglutide Drug allergy (disorder) 03-31-19 [facility] (1 source) Sulfonamides (Antibiotic); Translations: [SULFA (SULFONAMIDE ANTIBIOTICS)] Propensity to adverse reactions to drug (disorder) 10-29-19 [facility] (1 source) ADHESIVE TAPE-SILICONES; Translations: [ADHESIVE TAPE-SILICONES] Propensity to adverse reactions to drug (disorder) 10-30-19 17 [facility] (2 sources) Soy protein Allergy to substance 10-04-19 Unknown [facility] (2 sources) Other Allergy to substance 06-13-19 Unknown [facility] (2 sources) Semaglutide Allergy to substance [...] TAB PO Daily June 13, 2023 12:00am Pax 3 1000 MG (20 sources) take 1 capsule by mouth once daily Pax 3 1000 MG 1 capsule Orally Once a day Active Pax-3 Fatty Acids (2 sources) Start: 06-13-2023 take 1000 mg by mouth twice daily Pax-3 Fatty Acids Active 1000 MG PO Twice [...] MG/DOSE 0.5mg sq Subcutaneous once weekly Active [facility] - (2 sources) [employer] - as directed Orally Not-Taking [employer] - as directed Orally Active Problems [...] Anion gap [Moles/Vol] 11 mmol/L Normal 5-15 [facility] Comment on above: Performed By: #### P INR, BMP #### [facility] ([id number]) [address], [address] [place] [address] Calcium [Mass/Vol] 8.9 mg/dL Normal 8.5-10.5 [facility] Comment on above: Performed By: #### P INR, BMP #### [facility] ([id number]) [address], [address] [place] [address] Chloride [Moles/Vol] 103 mmol/L Normal 98-109 [facility] Comment on above: Performed By: #### P INR, BMP #### [facility] ([id number]) [address], [address] [place] [address] CO2 [Moles/Vol] 26 mmol/L Normal 22-32 [facility] Comment on above: Performed By: #### P INR, BMP #### [facility] ([id number]) [address], [address] [place] [address] Creatinine [Mass/Vol] 1.04 mg/dL High 0.40-1.00 [facility] Comment on above: Result Comment: METH OD TRACEABLE TO IDMS STANDARD Performed By: #### P INR, BMP #### [facility] ([id number]) [address], [address] [place] [address] GFR/1.73 sq M.predicted among non-blacks MDRD (S/P/Bld) [Vol rate/Area] 56 mL/min/{1.73_m2} Low >59 [facility] Comment on above: Result Comment: Reported eGFR is based on the CKD-EPI 2020 equation that does not use a race coefficient. Performed By: #### P INR, BMP #### [facility] ([id number]) [address], [address] [place] [address] Glucose [Mass/Vol] 120 mg/dL High 65-99 [facility] Comment on above: Performed By: #### P INR, BMP #### [facility] ([id number]) [address], [address] [place] [address] Potassium [Moles/Vol] 4.0 mmol/L Normal 3.5-5.0 [facility] Comment on above: Performed By: #### P INR, BMP #### [facility] ([id number]) [address], [address] [place] [address] Sodium [Moles/Vol] 140 mmol/L Normal 134-146 [facility] Comment on above: Performed By: #### P INR, BMP #### [facility] ([id number]) [address], [address] [place] [address] Urea nitrogen [Mass/Vol] 23 mg/dL Normal 5-27 [facility] Comment on above: Performed By: #### P INR, BMP #### [facility] ([id number]) [address], [address] [place] [address] PROTIME AND INRon 09-27-2023 INR Coag (PPP) [Relative time] 1.0 {INR} Normal 0.8-1.1 [facility] Comment on above: Performed By: #### P INR, BMP #### [facility] ([id number]) [address], [address] [place] [address] PT Coag (PPP) [Time] 11.8 s Normal 9.8-13.2 [facility] Comment on above: Performed By: #### P INR, BMP #### [facility] ([id number]) [address], [address] [place] [address] MR SHOULDER RIGHT WO IV CONT RASTon [...] Comment: MRI R T shoulder w/o at [facility]. Orbits if needed. Automated epithelial cells c ount in urine sediment (number/area)on 06-07-2023 Epithelial cells Auto (Urine sed) [#/Area] RARE #/LPF NONE/RARE [facility] Automated leukocytes count i n urine sediment (number/area)on 06-07-2023 WBC Auto (Urine sed) [#/Area] NONE SEEN #/HPF 0-2 [facility] Automated urine specific gra vity by refractometryon 06-07-2023 Specific gravity Refractometry automated (U) [Rel density] 1.020 1.005-1.025 [facility] Bilirubin Auto test strip (U ) [Mass/Vol]on 06-07-2023 Bilirubin (U) [Mass/Vol] Negative NEGATIVE [facility] Casts typing in urine sedime nt by light microscopyon 06-07-2023 Casts LM Nom (Urine sed) NONE SEEN #/LPF NONE SEEN [facility] Color Auto (U)on 06-07-2023 Color (U) LT. YELLOW YELLOW [facility] Erythrocyte distribution wid th Auto (RBC) [Ratio]on 06-07-2023 Erythrocyte distribution width (RBC) [Ratio] 12.8 % 11.0-15.0 [facility] Estimated glomerular filtrat ion rate (GFR) non- Americanon 06-07-2023 GFR/1.73 sq M.predicted among non-blacks MDRD (S/P/Bld) [Vol rate/Area] 50 mL/min/{1.73_m2} >=60 [facility] Hematocrit Auto (Bld) [Volum e fraction]on 06-07-2023 Hematocrit (Bld) [Volume fraction] 40.7 % 36.0-48.0 [facility] Hemoglobin [Mass/volume] in Bloodon 06-07-2023 Hemoglobin (Bld) [Mass/Vol] 13.0 g/dL 12.0-16.0 [facility] Ketones Auto test strip (U) [Mass/Vol]on 06-07-2023 Ketones (U) [Mass/Vol] Negative NEGATIVE [facility] Laboratory - Chemistry and C hemistry - challengeon 06-07-2023 Albumin [Mass/Vol] 3.5 g/dL 3.4-5.0 [facility] Calcium [Mass/Vol] 8.9 mg/dL 8.5-10.1 [facility] Chloride [Moles/Vol] 103 mmol/L 98-107 [facility] CO2 [Moles/Vol] 27.6 mmol/L 21.0-32.0 [facility] Creatinine [Mass/Vol] 1.07 mg/dL 0.55-1.02 [facility] GFR/1.73 sq M.predicted MDRD (S/P/Bld) [Vol rate/Area] mL/min/{1.73_m2} >=60 [facility] Glucose [Mass/Vol] 96 mg/dL 74-106 [facility] Magnesium [Mass/Vol] 2.0 mg/dL 1.8-2.4 [facility] Potassium [Moles/Vol] 3.9 mmol/L 3.5-5.1 [facility] Sodium [Moles/Vol] 140 mmol/L 136-145 [facility] Urate [Mass/Vol] 3.9 mg/dL 2.6-6.0 [facility] Urea nitrogen [Mass/Vol] 24.0 mg/dL 7.0-18.0 [facility] Urea nitrogen/Creatinine [Mass ratio] 22.4 mg/mg [facility] Leukocytes [#/volume] correc sigifredo for nucleated erythrocytes in Blood by Automated counon 06-07-2023 WBC corrected for nucl RBC Auto (Bld) [#/Vol] 5.7 10 3/uL 4.0-11.0 [facility] MCH Auto (RBC) [Entitic mass ]on 06-07-2023 MCH (RBC) [Entitic mass] 30.0 pg 26.7-34.0 [facility] MCHC Auto (RBC) [Mass/Vol]on 06-07-2023 MCHC (RBC) [Mass/Vol] 31.9 g/dL 29.9-35.2 [facility] MCV Auto (RBC) [Entitic vol] on 06-07-2023 MCV (RBC) [Entitic vol] 94.0 fL 81.0-99.0 [facility] Mucus LM Ql (Urine sed)on Mucus Ql (Urine sed) NONE SEEN NONE SEEN [facility] No Panel Informationon 06-06 25-Hydroxy Vitamin D Total 42.6 ng/mL [facility] Comment on above: <20 ng/mL Vit D defi cient20-<30 ng/mL Vit D ftnnchanhrpt45-610 ng/mL Vit D sufficient>100 ng/mL Potential Toxicity Miscellaneous Test COMMENT . [facility] Comment on above: Test Ordered: [id number] Prot+CreatU (Random)Creatinine, Urine 58.5 mg/dL CB Reference Range: Not Estab.Protein,Total,Urine 7.2 mg/dL CB Reference Range: Not Estab.Protein/Creat Ratio 123 CB Units of Measure: mg/g creat Reference Range: 0-200Performed at: CB - [facility] [address] [id number] Director: Remy Sanchez PhD, Phone: [phone] Parathyroid Hormone (Intact) 99 pg/mL 15-65 [facility] Comment on above: Performed at: CB - [facility] [address] [id number] Director: Remy Sanchez PhD, Phone: [phone] Phosphorus Level 3.8 mg/dL 2.6-4.7 [facility] Platelet mean volume Auto (B ld) [Entitic vol]on 06-07-2023 Platelet mean volume (Bld) [Entitic vol] 8.7 fL 9.5-13.5 [facility] Platelets Auto (Bld) [#/Vol] on 06-07-2023 Platelets (Bld) [#/Vol] 167 10 3/uL 150-450 [facility] Protein Auto test strip (U) [Mass/Vol]on 06-07-2023 Protein (U) [Mass/Vol] Negative NEG/TRACE [facility] RBC Auto (Bld) [#/Vol]on RBC (Bld) [#/Vol] 4.33 10 6/uL 4.20-5.40 [facility] Serum or plasma anion gap de terminationon 06-07-2023 Anion gap [Moles/Vol] 13.3 mmol/L [facility] Specific gravity Auto test s trip (U) [Rel density]on 06-07-2023 Specific gravity (U) [Rel density] CLEAR CLEAR [facility] Urine bacteria detection by automated methodon 06-07-2023 Bacteria Auto Ql (U) TRACE #/HPF NONE SEEN [facility] Urine glucose measurement by test strip (mass/volume)on 06-07-2023 Glucose Test strip (U) [Mass/Vol] 250 mg/dL NEGATIVE [facility] Urine hemoglobin detection b y automated test stripon 06-07-2023 Hemoglobin Auto test strip Ql (U) Negative NEGATIVE [facility] Urine nitrite detection by a utomated test stripon 06-07-2023 Nitrite Auto test strip Ql (U) TRACE NEGATIVE [facility] Nitrite Auto test strip Ql (U) Negative NEGATIVE [facility] Urine sediment crystal ident ification by light microscopyon 06-07-2023 Crystals LM Nom (Urine sed) None Seen #/HPF None Seen [facility] Urine sediment leukocyte cou nt by microscopy (number/high power field)on 06-07-2023 WBC LM.HPF (Urine sed) [#/Area] 0-2 #/HPF NONE SEEN [facility] Urobilinogen Auto test strip (U) [Mass/Vol]on 06-07-2023 Urobilinogen Qn (U) 0.2 {Wil'U}/dL 0.2-1.0 [facility] pH Auto test strip (U)on pH (U) 6.0 [pH] 5.0-9.0 [facility] Lipid 1996 panelon 4 Cholesterol [Mass/Vol] 144 mg/dL Low 150-200 [facility] Comment on above: Performed By: #### 2 4331-1 #### [facility] ([id number]) [address], [address] [place] [address] Cholesterol in HDL [Mass/Vol] 49 mg/dL Normal >39 [facility] Comment on above: Result Comment: HDL <40 mg/dL - High Risk HDL > or = 40mg/dL- Desirable HDL >60 mg/dL - Negative Risk Performed By: #### 2 4331-1 #### [facility] ([id number]) [address], [address] [place] [address] Cholesterol in LDL [Mass/Vol] 49 mg/dL Normal <130 [facility] Comment on above: Result Comment: LDL <100 mg/dL - Desirable LDL >160 mg/dL - High Risk Performed By: #### 2 4331-1 #### [facility] ([id number]) [address], [address] [place] [address] Cholesterol in VLDL [Mass/Vol] 46 mg/dL High 0-30 [facility] Comment on above: Performed By: #### 2 4331-1 #### [facility] ([id number]) [address], [address] [place] [address] CHOLESTEROL:HDL 2.9 Normal 1.0-5.0 [facility] Comment on above: Performed By: #### 2 4331-1 #### [facility] ([id number]) [address], [address] [place] [address] Triglyceride [Mass/Vol] 228 mg/dL High 27-150 [facility] Comment on above: Performed By: #### 2 4331-1 #### [facility] ([id number]) [address], [address] [place] [address] A1C HEMOGLOBINon 09-29-2022 HbA1c (Bld) [Mass fraction] 6.2 % POI Other Glucose - FINGER STICKon Glucose [Mass/Vol] 113 mg/dL POI Other HbA1c (Bld) [Mass fraction]o n 09-29-2022 A1C HEMOGLOBIN [employer] Other PTH INTACTon 06-03-2022 PTH, Intact 38 pg/mL Normal 15-65 [facility] Comment on above: Performed By: #### P THINT #### [facility] [address] [place] [address] Dr. Rizwan Fernando HEMOGRAM AND PLATELon 2022 Hematocrit (Bld) [Volume fraction] 39.5 % Normal 36.0-48.0 [facility] Comment on above: Performed By: #### H H #### [facility] [address] [place] [address] Dr. Rizwan Fernando Hemoglobin (Bld) [Mass/Vol] 12.8 g/dL Normal 12.0-16.0 [facility] Comment on above: Performed By: #### H H #### [facility] [address] [place] [address] Dr. Rizwan Fernando MCH (RBC) [Entitic mass] 28.9 pg Normal 26.7-34.0 [facility] Comment on above: Performed By: #### H H #### [facility] [address] [place] [address] Dr. Rizwan Fernando MCHC (RBC) [Mass/Vol] 32.4 g/dL Normal 29.9-35.2 [facility] Comment on above: Performed By: #### H H #### [facility] [address] [place] [address] Dr. Rizwan Fernando MCV (RBC) [Entitic vol] 89.2 fL Normal 81.0-99.0 [facility] Comment on above: Performed By: #### H H #### [facility] [address] [place] [address] Dr. Rizwan Fernando PLT 202 103/ul Normal 150-450 [facility] Comment on above: Performed By: #### H H #### [facility] [address] [place] [address] Dr. Rizwan Fernando RBC 4.43 106/ul Normal 4.20-5.40 [facility] Comment on above: Performed By: #### H H #### [facility] [address] [place] [address] Dr. Rizwan Fernando WBC 6.2 103/ul Normal 4.0-11.0 [facility] Comment on above: Performed By: #### H H #### [facility] [address] [place] [address] Dr. Rizwan Fernando IRON AND TIBCon 06-02-2022 % SATURATION 23.2 % Normal [facility] Comment on above: Performed By: #### R ENAL, MG, URIC #### [facility] [address] [place] [address] Dr. Rizwan Fernando Iron [Mass/Vol] 64.0 ug/dL Normal 50.0-170.0 [facility] Comment on above: Performed By: #### R ENAL, MG, URIC #### [facility] [address] [place] [address] Dr. Rizwan Fernando TIBC DIRECT 276.0 ug/dL Normal 250.0-450.0 [facility] Comment on above: Performed By: #### R ENAL, MG, URIC #### [facility] [address] [place] [address] Dr. Rizwan Fernando MAGNESIUMon 06-02-2022 Magnesium [Mass/Vol] 1.9 mg/dL Normal 1.8-2.4 [facility] Comment on above: Performed By: #### R ENAL, MG, URIC #### [facility] [address] [place] [address] Dr. Rizwan Fernando RENAL FUNCTION PANELon 06-02 Albumin [Mass/Vol] 3.9 g/dL Normal 3.4-5.0 [facility] Comment on above: Performed By: #### R ENAL, MG, URIC #### [facility] [address] [address] [address] Rizwan Fernando Calcium [Mass/Vol] 9.2 mg/dL Normal 8.5-10.1 [facility] Comment on above: Performed By: #### R ENAL, MG, URIC #### [facility] [address] [address] [address] Rizwan Fernando Chloride [Moles/Vol] 102 mmol/L Normal 98-107 [facility] Comment on above: Performed By: #### R ENAL, MG, URIC #### [facility] [address] [address] [address] Rizwan Fernando CO2 [Moles/Vol] 29.2 mmol/L Normal 21.0-32.0 [facility] Comment on above: Performed By: #### R ENAL, MG, URIC #### [facility] [address] [place] [address] Dr. Rizwan Fernando Creatinine [Mass/Vol] 1.05 mg/dL Critically high 0.55-1.02 [facility] Comment on above: Performed By: #### R ENAL, MG, URIC #### [facility] [address] [address] [address] Rizwan Fernando EGFR-AF CONGOLESE >60 Normal >=60 [facility] Comment on above: Performed By: #### R ENAL, MG, URIC #### [facility] [address] [address] [address] Rizwan Fernando EGFR-NON AF CONGOLESE 51 mL/min/1.73m2 Critically low >=60 [facility] Comment on above: Performed By: #### R ENAL, MG, URIC #### [facility] [address] [address] [address] Rizwan Fernando Glucose [Mass/Vol] 112 mg/dL Critically high 74-106 [facility] Comment on above: Performed By: #### R ENAL, MG, URIC #### [facility] [address] [address] [address] Rizwan Fernando Phosphate [Mass/Vol] 4.3 mg/dL Normal 2.6-4.7 [facility] Comment on above: Performed By: #### R ENAL, MG, URIC #### [facility] [address] [address] [address] Rizwan Fernando Potassium [Moles/Vol] 4.0 mmol/L Normal 3.5-5.1 [facility] Comment on above: Performed By: #### R ENAL, MG, URIC #### [facility] [address] [place] [address] Dr. Rizwan Fernando Sodium [Moles/Vol] 139 mmol/L Normal 136-145 [facility] Comment on above: Performed By: #### R ENAL, MG, URIC #### [facility] [address] [place] [address] Dr. Rizwan Fernando Urea nitrogen [Mass/Vol] 24.0 mg/dL Critically high 7.0-18.0 [facility] Comment on above: Performed By: #### R ENAL, MG, URIC #### [facility] [address] [place] [address] Dr. Rizwan Fernando UA RANDOM W/MICROSCOPICon BACTERIA NONE SEEN Normal NONE SEEN [facility] Comment on above: Performed By: #### R ENAL, MG, URIC #### [facility] [address] [place] [address] Dr. Rizwan Fernando Bilirubin Ql (U) Negative Normal NEGATIVE [facility] Comment on above: Performed By: #### R ENAL, MG, URIC #### [facility] [address] [place] [address] Dr. Rizwan Fernando CAST NONE SEEN Normal NONE SEEN [facility] Comment on above: Performed By: #### R ENAL, MG, URIC #### [facility] [address] [place] [address] Dr. Rizwan Fernando Clarity (U) CLEAR Normal CLEAR [facility] Comment on above: Performed By: #### R ENAL, MG, URIC #### [facility] [address] [place] [address] Dr. Rizwan Fernando Color (U) LT. YELLOW Normal YELLOW [facility] Comment on above: Performed By: #### R ENAL, MG, URIC #### [facility] [address] [address] [address] Rizwan Fernando Crystals LM Nom (Urine sed) NONE SEEN Normal NONE SEEN [facility] Comment on above: Performed By: #### R ENAL, MG, URIC #### [facility] [address] [place] [address] Dr. Rizwan Fernando Epithelial cells LM Ql (Urine sed) NONE SEEN Normal NONE SEEN /RARE [facility] Comment on above: Performed By: #### R ENAL, MG, URIC #### [facility] [address] [place] [address] Dr. Rizwan Fernando Glucose Ql (U) 250 mg/dl Abnormal NEGATIVE [facility] Comment on above: Performed By: #### R ENAL, MG, URIC #### [facility] [address] [place] [address] Dr. Rizwan Fernando Hemoglobin Ql (U) Negative Normal NEGATIVE [facility] Comment on above: Performed By: #### R ENAL, MG, URIC #### [facility] [address] [place] [address] Dr. Rizwan Fernando Ketones Ql (U) Negative Normal NEGATIVE [facility] Comment on above: Performed By: #### R ENAL, MG, URIC #### [facility] [address] [place] [address] Dr. Rizwan Fernando LEUKOCYTES TRACE Abnormal NEGATIVE [facility] Comment on above: Performed By: #### R ENAL, MG, URIC #### [facility] [address] [place] [address] Dr. Rizwan Fernando MUCOUS NONE SEEN Normal NONE SEEN [facility] Comment on above: Performed By: #### R ENAL, MG, URIC #### [facility] [address] [place] [address] Dr. Rizwan Fernando Nitrite Ql (U) Negative Normal NEGATIVE The [facility] Comment on above: Performed By: #### R ENAL, MG, URIC #### [facility] [address] [place] [address] Dr. Rizwan Fernando pH (U) 6.0 [pH] Normal 5-9 [facility] Comment on above: Performed By: #### R ENAL, MG, URIC #### [facility] [address] [place] [address] Dr. Rizwan Fernando RBC NONE SEEN Abnormal 0-2 [facility] Comment on above: Performed By: #### R ENAL, MG, URIC #### [facility] [address] [place] [address] Dr. Rizwan Fernando SPEC GRAVITY 1.015 Normal 1.005-<=1.025 The [facility] Comment on above: Performed By: #### R ENAL, MG, URIC #### [facility] [address] [place] [address] Dr. Rizwan Fernando UA PROTEIN Negative Normal NEGATIVE/ TRACE [facility] Comment on above: Performed By: #### R ENAL, MG, URIC #### [facility] [address] [place] [address] Dr. Rizwan Fernando Urobilinogen Qn (U) 0.2 {Wil'U}/dL Normal 0.2 - 1. 0 [facility] Comment on above: Performed By: #### R ENAL, MG, URIC #### [facility] [address] [place] [address] Dr. Rizwan Fernando WBC 0-2 Abnormal NONE SEEN [facility] Comment on above: Performed By: #### R ENAL, MG, URIC #### [facility] [address] [place] [address] Dr. Rizwan Fernando URIC ACID SERUMon 06-02-2022 Urate [Mass/Vol] 4.3 mg/dL Normal 2.6-6.0 The [facility] Comment on above: Performed By: #### R ENAL, MG, URIC #### [facility] [address] [place] [address] Dr. Rizwan Fernando URINE T PROTEIN CREAT RATIOo n 06-02-2022 Protein (U) [Mass/Vol] 12.9 mg/dL Critically high <=12.0 [facility] Comment on above: Performed By: #### U RTPCR #### [facility] [address] [address] [address] Rizwan Fernando UR PROT CREAT RAT 0.[address] [facility] Comment on above: Performed By: #### U RTPCR #### [facility] [address] [address] [address] Rizwan Fernando URINE CREAT 62.07 mg/dL Normal 20.00-300.00 [facility] Comment on above: Performed By: #### U RTPCR #### [facility] [address] [address] [address] Rizwan Fernando VITAMIN D 25 OHon 06-02-2022 VIT D 25-OH 42.4 ng/mL Normal [facility] Comment on above: Performed By: #### R ENAL, MG, URIC #### [facility] [address] [place] [address] Dr. Rizwan Fernando VIT D RANGES SEE BELOW Normal [facility] Comment on above: Result Comment: <20 ng/mL Vit D deficient 20 - <30 ng/mL Vit D insufficient 30 - 100 ng/mL Vit D sufficient >100 ng/mL Potential Toxicity Performed By: #### R ENAL, MG, URIC #### [facility] [address] [place] [address] Dr. Rizwan Fernando A1C HEMOGLOBINon 03-31-2022 HbA1c (Bld) [Mass fraction] 5.8 % [employer] [facility] [employer] Other Glucose - FINGER STICKon Glucose [Mass/Vol] 135 mg/dL POI Other HbA1c (Bld) [Mass fraction]o n 03-31-2022 A1C H[facility]OGLOBIN [facility] CHEM 8 (BAS METB)on Anion gap [Moles/Vol] 13.7 mmol/L Normal [facility] Comment on above: Performed By: #### R ENAL, MG, URIC #### [facility] [address] [place] [address] Dr. Rizwan Fernando Calcium [Mass/Vol] 9.1 mg/dL Normal 8.5-10.1 [facility] Comment on above: Performed By: #### R ENAL, MG, URIC #### [facility] [address] [place] [address] Dr. Rizwan Fernando Chloride [Moles/Vol] 103 mmol/L Normal 98-107 [facility] Comment on above: Performed By: #### R ENAL, MG, URIC #### [facility] [address] [place] [address] Dr. Rizwan Fernando CO2 [Moles/Vol] 28.8 mmol/L Normal 21.0-32.0 [facility] Comment on above: Performed By: #### R ENAL, MG, URIC #### [facility] [address] [place] [address] Dr. Rizwan Fernando Creatinine [Mass/Vol] 1.21 mg/dL Critically high 0.55-1.02 [facility] Comment on above: Performed By: #### R ENAL, MG, URIC #### [facility] [address] [place] [address] Dr. Rizwan Fernando EGFR-AF CONGOLESE 53 mL/min/1.73m2 Critically low >=60 [facility] Comment on above: Performed By: #### R ENAL, MG, URIC #### [facility] [address] [place] [address] Dr. Rizwan Fernando EGFR-NON AF CONGOLESE 43 mL/min/1.73m2 Critically low >=60 [facility] Comment on above: Performed By: #### R ENAL, MG, URIC #### [facility] [address] [place] [address] Dr. Rizwan Fernando Glucose [Mass/Vol] 121 mg/dL Critically high 74-106 [facility] Comment on above: Performed By: #### R ENAL, MG, URIC #### [facility] [address] [place] [address] Dr. Rizwan Fernando Potassium [Moles/Vol] 4.5 mmol/L Normal 3.5-5.1 [facility] Comment on above: Performed By: #### R ENAL, MG, URIC #### [facility] [address] [place], [place] [address] Dr. Rizwan Fernando Sodium [Moles/Vol] 141 mmol/L Normal 136-145 [facility] Comment on above: Performed By: #### R ENAL, MG, URIC #### [facility] [address] [place], [place] [address] Dr. Rizwan Fernando Urea nitrogen [Mass/Vol] 26.0 mg/dL Critically high 7.0-18.0 [facility] Comment on above: Performed By: #### R ENAL, MG, URIC #### [facility] [address] [place], [place] [address] Dr. Rizwan Fernando Urea nitrogen/Creatinine [Mass ratio] 21.5 mg/mg Normal [facility] Comment on above: Performed By: #### R ENAL, MG, URIC #### [facility] [address] [address] [address] Rizwan Fernando MG MAMM SCREEN 3D NICOLE CADon 02-05-2022 MG MAMM SCREEN 3D NICOLE CAD Patient: ASHLEY WANG Exam Date: 02/05/2022 : 1945 Gender:F Ordering : [facility] Admission #: [id number] Family : Order #: [id number] CLICK HERE TO VIEW EXAM RADIOLOGY REPORT [...] liver cancer at age 70. LOCATION: [facility] BREAST COMPOSITION: Scattered areas fibroglandular density. [...] MD on 02/05/2022 at 09:50 Normal [facility] RENAL FUNCTION PANELon 12-22 Albumin [Mass/Vol] 4.4 g/dL Normal 3.4-5.0 [facility] Comment on above: Performed By: #### R ENAL, MG, URIC #### [facility] [address] [place] [address] Dr. Rizwan Fernando Calcium [Mass/Vol] 9.5 mg/dL Normal 8.5-10.1 The [facility] Comment on above: Performed By: #### R ENAL, MG, URIC #### [facility] [address] [place] [address] Dr. Rizwan Fernando Chloride [Moles/Vol] 102 mmol/L Normal 98-107 [facility] Comment on above: Performed By: #### R ENAL, MG, URIC #### [facility] [address] [address] [address] Rizwan Fernando CO2 [Moles/Vol] 29.2 mmol/L Normal 21.0-32.0 [facility] Comment on above: Performed By: #### R ENAL, MG, URIC #### [facility] [address] [place] [address] Dr. Rizwan Fernando Creatinine [Mass/Vol] 1.04 mg/dL Critically high 0.55-1.02 [facility] Comment on above: Performed By: #### R ENAL, MG, URIC #### [facility] [address] [place] [address] Dr. Rizwan Fernando EGFR-AF CONGOLESE >60 Normal >=60 [facility] Comment on above: Performed By: #### R ENAL, MG, URIC #### [facility] [address] [place] [address] Dr. Rizwan Fernando EGFR-NON AF CONGOLESE 52 mL/min/1.73m2 Critically low >=60 [facility] Comment on above: Performed By: #### R ENAL, MG, URIC #### [facility] [address] [address] [address] Rizwan Fernando Glucose [Mass/Vol] 101 mg/dL Normal 74-106 The [facility] Comment on above: Performed By: #### R ENAL, MG, URIC #### [facility] [address] [address] [address] Rizwan Fernando Phosphate [Mass/Vol] 5.0 mg/dL Critically high 2.6-4.7 [facility] Comment on above: Performed By: #### R ENAL, MG, URIC #### [facility] [address] [address] [address] Rizwan Fernando Potassium [Moles/Vol] 4.1 mmol/L Normal 3.5-5.1 [facility] Comment on above: Performed By: #### R ENAL, MG, URIC #### [facility] [address] [address] [address] Rizwan Fernando Sodium [Moles/Vol] 141 mmol/L Normal 136-145 [facility] Comment on above: Performed By: #### R ENAL, MG, URIC #### [facility] [address] [address] [address] Rizwan Fernando Urea nitrogen [Mass/Vol] 24.0 mg/dL Critically high 7.0-18.0 [facility] Comment on above: Performed By: #### R ENAL, MG, URIC #### [facility] [address] [address] [address] Rizwan Fernando A1C HEMOGLOBINon 12-21-2021 HbA1c (Bld) [Mass fraction] 6.1 % POI Other Glucose - FINGER STICKon Glucose [Mass/Vol] 137 mg/dL POI Other HbA1c (Bld) [Mass fraction]o n 12-21-2021 A1C HEMOGLOBIN [employer] Other PTH INTACTon 12-05-2021 PTH, Intact 26 pg/mL Normal 15-65 [facility] Comment on above: Performed By: #### R ENAL, MG, URIC #### [facility] [address] [place] [address] Dr. Rizwan Fernando FERRITINon 12-04-2021 Ferritin [Mass/Vol] 89.0 ng/mL Normal 8.0-252.0 [facility] Comment on above: Performed By: #### R ENAL, MG, URIC #### [facility] [address] [place] [address] Dr. Rizwan Fernando HEMOGRAM AND PLATELon 2021 Hematocrit (Bld) [Volume fraction] 38.3 % Normal 36.0-48.0 [facility] Comment on above: Performed By: #### R ENAL, MG, URIC #### [facility] [address] [place] [address] Dr. Rizwan Fernando Hemoglobin (Bld) [Mass/Vol] 12.5 g/dL Normal 12.0-16.0 [facility] Comment on above: Performed By: #### R ENAL, MG, URIC #### [facility] [address] [place] [address] Dr. Rizwan Fernando MCH (RBC) [Entitic mass] 28.9 pg Normal 26.7-34.0 [facility] Comment on above: Performed By: #### R ENAL, MG, URIC #### [facility] [address] [place] [address] Dr. Rizwan Fernando MCHC (RBC) [Mass/Vol] 32.6 g/dL Normal 29.9-35.2 [facility] Comment on above: Performed By: #### R ENAL, MG, URIC #### [facility] [address] [place] [address] Dr. Rizwan Fernando MCV (RBC) [Entitic vol] 88.5 fL Normal 81.0-99.0 [facility] Comment on above: Performed By: #### R ENAL, MG, URIC #### [facility] [address] [place] [address] Dr. Rizwan Fernando PLT 188 103/ul Normal 150-450 [facility] Comment on above: Performed By: #### R ENAL, MG, URIC #### [facility] [address] [address] [address] Rizwan Fernando RBC 4.33 106/ul Normal 4.20-5.40 [facility] Comment on above: Performed By: #### R ENAL, MG, URIC #### [facility] [address] [address] [address] Rizwan Fernando WBC 5.4 103/ul Normal 4.0-11.0 [facility] Comment on above: Performed By: #### R ENAL, MG, URIC #### [facility] [address] [address] [address] Rizwan Fernando IRON AND TIBCon 12-04-2021 % SATURATION 20.3 % Normal [facility] Comment on above: Performed By: #### R ENAL, MG, URIC #### [facility] [address] [place] [address] Dr. Rizwan Fernando Iron [Mass/Vol] 56.0 ug/dL Normal 50.0-170.0 [facility] Comment on above: Performed By: #### R ENAL, MG, URIC #### [facility] [address] [address] [address] Rizwan Fernando TIBC DIRECT 276.0 ug/dL Normal 250.0-450.0 [facility] Comment on above: Performed By: #### R ENAL, MG, URIC #### [facility] [address] [address] [address] Rizwan Fernando LIPID PROFILEon 12-04-2021 CHOL-HDL RATIO NORM SEE BELOW Normal [facility] Comment on above: Result Comment: 3.3 - 4.4 LOW RISK 4.4 - 7.1 AVERAGE RISK 7.1 - 11.0 MODERATE RISK >11.0 HIGH RISK Performed By: #### R ENAL, MG, URIC #### [facility] [address] [place] [address] Dr. Rizwan Fernando Cholesterol [Mass/Vol] 152 mg/dL Normal <=200 [facility] Comment on above: Performed By: #### R ENAL, MG, URIC #### [facility] [address] [address] [address] Rizwan Fernando Cholesterol in HDL [Mass/Vol] 57 mg/dL Normal 40-60 [facility] Comment on above: Performed By: #### R ENAL, MG, URIC #### [facility] [address] [address] [address] Rizwan Fernando Cholesterol in LDL [Mass/Vol] 41.4 mg/dL Normal [facility] Comment on above: Performed By: #### R ENAL, MG, URIC #### [facility] [address] [address] [address] Rizwan Fernando Cholesterol.total/Ch olesterol in HDL [Mass ratio] 2.7 {ratio} Normal [facility] Comment on above: Performed By: #### R ENAL, MG, URIC #### [facility] [address] [address] [address] Rizwan Fernando HDL NORMAL > or = 60 mg/dl - LOW CARDIOVASCULAR RISK <40 mg/dl - HIGH CARDIOVASCULAR RISK Normal [facility] Comment on above: Performed By: #### R ENAL, MG, URIC #### [facility] [address] [address] [address] Rizwan Fernando LDL CALC NORMAL SEE BELOW Normal [facility] Comment on above: Result Comment: <100 mg/dl OPTIMAL 100 - 129 mg/dl NEAR OR ABOVE OPTIMAL 130 - 159 mg/dl BORDERLINE HIGH 160 - 189 mg/dl HIGH >190 mg/dl VERY HIGH Performed By: #### R ENAL, MG, URIC #### [facility] [address] [address] [address] Rizwan Fernando Triglyceride [Mass/Vol] 268 mg/dL Critically high <=150 [facility] Comment on above: Performed By: #### R ENAL, MG, URIC #### [facility] [address] [address] [address] Rizwan Fernando VLDL CALC 53.6 mg/dL Normal [facility] Comment on above: Performed By: #### R ENAL, MG, URIC #### [facility] [address] [address] [address] Rizwan Fernando MAGNESIUMon 12-04-2021 Magnesium [Mass/Vol] 1.6 mg/dL Critically low 1.8-2.4 [facility] Comment on above: Performed By: #### R ENAL, MG, URIC #### [facility] [address] [place] [address] Dr. Rizwan Fernando MICROALB CREAT RATIO RANDOMo n 12-04-2021 mALB 1.6 mg/L Normal <=30.0 [facility] Comment on above: Performed By: #### M CRR #### [facility] [address] [place] [address] Dr. Rizwan Fernando MALB CR RATIO 26.9 mg/g Normal 0.0-29.9 [facility] Comment on above: Performed By: #### M CRR #### [facility] [address] [place] [address] Dr. Rizwan Fernando MALB CR RATIO RANGE SEE BELOW Normal [facility] Comment on above: Result Comment: NO M ICROALBUMINURIA 0-29 MG/G CLINICAL MICROALBUMINURIA 30-300 MG/G MACROALBUMINURIA >300 MG/G Performed By: #### M CRR #### [facility] [address] [place] [address] Dr. Rizwan Fernando URINE CREAT 59.53 mg/dL Normal 20.00-300.00 [facility] Comment on above: Performed By: #### M CRR #### [facility] [address] [place] [address] Dr. Rizwan Fernando PHOSPHORUSon 12-04-2021 Phosphate [Mass/Vol] 4.0 mg/dL Normal 2.6-4.7 [facility] Comment on above: Performed By: #### R ENAL, MG, URIC #### [facility] [address] [place] [address] Dr. Rizwan Fernando PROF 14(COMP METB)on 022 Albumin [Mass/Vol] 4.0 g/dL Normal 3.4-5.0 [facility] Comment on above: Performed By: #### R ENAL, MG, URIC #### [facility] [address] [address] [address] Rizwan Fernando Albumin/Globulin [Mass ratio] 1.3 {ratio} Normal [facility] Comment on above: Performed By: #### R ENAL, MG, URIC #### [facility] [address] [address] [address] Rizwan Fernando ALP [Catalytic activity/Vol] 118 U/L Critically high 46-116 [facility] Comment on above: Performed By: #### R ENAL, MG, URIC #### [facility] [address] [address] [address] Rizwan Fernando ALT [Catalytic activity/Vol] 23 U/L Normal 14-59 [facility] Comment on above: Performed By: #### R ENAL, MG, URIC #### [facility] [address] [place] [address] Dr. Rizwan Fernando Anion gap [Moles/Vol] 10.7 mmol/L Normal [facility] Comment on above: Performed By: #### R ENAL, MG, URIC #### [facility] [address] [address] [address] Rizwan Fernando AST [Catalytic activity/Vol] 20 U/L Normal 15-37 [facility] Comment on above: Performed By: #### R ENAL, MG, URIC #### [facility] [address] [address] [address] Rizwan Fernando Bilirubin [Mass/Vol] 0.6 mg/dL Normal 0.2-1.0 [facility] Comment on above: Performed By: #### R ENAL, MG, URIC #### [facility] [address] [address] [address] Rizwan Fernando Calcium [Mass/Vol] 8.9 mg/dL Normal 8.5-10.1 [facility] Comment on above: Performed By: #### R ENAL, MG, URIC #### [facility] [address] [address] [address] Rizwan Fernando Chloride [Moles/Vol] 103 mmol/L Normal 98-107 [facility] Comment on above: Performed By: #### R ENAL, MG, URIC #### [facility] [address] [address] [address] Rizwan Fernando CO2 [Moles/Vol] 28.2 mmol/L Normal 21.0-32.0 [facility] Comment on above: Performed By: #### R ENAL, MG, URIC #### [facility] [address] [place] [address] Dr. Rizwan Fernando Creatinine [Mass/Vol] 1.04 mg/dL Critically high 0.55-1.02 [facility] Comment on above: Performed By: #### R ENAL, MG, URIC #### [facility] [address] [address] [address] Rizwan Fernando EGFR-AF CONGOLESE >60 Normal >=60 [facility] Comment on above: Performed By: #### R ENAL, MG, URIC #### [facility] [address] [place] [address] Dr. Rizwan Fernando EGFR-NON AF CONGOLESE 52 mL/min/1.73m2 Critically low >=60 [facility] Comment on above: Performed By: #### R ENAL, MG, URIC #### [facility] [address] [address] [address] Rizwan Fernando Globulin (S) [Mass/Vol] 3.1 g/dL Normal [facility] Comment on above: Performed By: #### R ENAL, MG, URIC #### [facility] [address] [address] [address] Rizwan Fernando Glucose [Mass/Vol] 115 mg/dL Critically high 74-106 [facility] Comment on above: Performed By: #### R ENAL, MG, URIC #### [facility] [address] [address] [address] Rizwan Fernando Potassium [Moles/Vol] 3.9 mmol/L Normal 3.5-5.1 [facility] Comment on above: Performed By: #### R ENAL, MG, URIC #### [facility] [address] [address] [address] Rizwan Fernando Protein [Mass/Vol] 7.1 g/dL Normal 6.4-8.2 [facility] Comment on above: Performed By: #### R ENAL, MG, URIC #### [facility] [address] [place] [address] Dr. Rizwan Fernando Sodium [Moles/Vol] 138 mmol/L Normal 136-145 [facility] Comment on above: Performed By: #### R ENAL, MG, URIC #### [facility] [address] [place] [address] Dr. Rizwan Fernando Urea nitrogen [Mass/Vol] 23.0 mg/dL Critically high 7.0-18.0 [facility] Comment on above: Performed By: #### R ENAL, MG, URIC #### [facility] [address] [place] [address] Dr. Rizwan Fernando Urea nitrogen/Creatinine [Mass ratio] 22.1 mg/mg Normal [facility] Comment on above: Performed By: #### R ENAL, MG, URIC #### [facility] [address] [place] [address] Dr. Rizwan Fernando UA RANDOM W/MICROSCOPICon BACTERIA NONE SEEN Normal NONE SEEN [facility] Comment on above: Performed By: #### R ENAL, MG, URIC #### [facility] [address] [place] [address] Dr. Rizwan Fernando Bilirubin Ql (U) Negative Normal NEGATIVE [facility] Comment on above: Performed By: #### R ENAL, MG, URIC #### [facility] [address] [place] [address] Dr. Rizwan Fernando CAST NONE SEEN Normal NONE SEEN [facility] Comment on above: Performed By: #### R ENAL, MG, URIC #### [facility] [address] [place] [address] Dr. Rizwan Fernando Clarity (U) CLEAR Normal CLEAR [facility] Comment on above: Performed By: #### R ENAL, MG, URIC #### [facility] [address] [place] [address] Dr. Rizwan Fernando Color (U) LT. YELLOW Normal YELLOW [facility] Comment on above: Performed By: #### R ENAL, MG, URIC #### [facility] [address] [address] [address] Rizwan Fernando Crystals LM Nom (Urine sed) NONE SEEN Normal NONE SEEN [facility] Comment on above: Performed By: #### R ENAL, MG, URIC #### [facility] [address] [address] [address] Rizwan Fernando Epithelial cells LM Ql (Urine sed) RARE Normal NONE SEEN /RARE [facility] Comment on above: Performed By: #### R ENAL, MG, URIC #### [facility] [address] [address] [address] Rizwan Fernando Glucose Ql (U) Negative Normal NEGATIVE [facility] Comment on above: Performed By: #### R ENAL, MG, URIC #### [facility] [address] [address] [address] Rizwan Fernando Hemoglobin Ql (U) Negative Normal NEGATIVE [facility] Comment on above: Performed By: #### R ENAL, MG, URIC #### [facility] [address] [address] [address] Rizwan Fernando Ketones Ql (U) Negative Normal NEGATIVE [facility] Comment on above: Performed By: #### R ENAL, MG, URIC #### [facility] [address] [address] [address] Rizwan Fernando LEUKOCYTES TRACE Abnormal NEGATIVE [facility] Comment on above: Performed By: #### R ENAL, MG, URIC #### [facility] [address] [address] [address] Rizwan Fernando MUCOUS NONE SEEN Normal NONE SEEN [facility] Comment on above: Performed By: #### R ENAL, MG, URIC #### [facility] [address] [address] [address] Rizwan Fernando Nitrite Ql (U) Negative Normal NEGATIVE [facility] Comment on above: Performed By: #### R ENAL, MG, URIC #### [facility] [address] [address] [address] Rizwan Fernando pH (U) 6.0 [pH] Normal 5-9 [facility] Comment on above: Performed By: #### R ENAL, MG, URIC #### [facility] [address] [place] [address] Dr. Rizwan Fernando RBC NONE SEEN Abnormal 0-2 [facility] Comment on above: Performed By: #### R ENAL, MG, URIC #### [facility] [address] [place] [address] Dr. Rizwan Fernando SPEC GRAVITY 1.010 Normal 1.005-<=1.025 [facility] Comment on above: Performed By: #### R ENAL, MG, URIC #### [facility] [address] [place] [address] Dr. Rizwan Fernando UA PROTEIN Negative Normal NEGATIVE/ TRACE [facility] Comment on above: Performed By: #### R ENAL, MG, URIC #### [facility] [address] [place] [address] Dr. Rizwan Fernando Urobilinogen Qn (U) 0.2 {Wil'U}/dL Normal 0.2 - 1. 0 [facility] Comment on above: Performed By: #### R ENAL, MG, URIC #### [facility] [address] [place] [address] Dr. Rizwan Fernando WBC 0-2 Abnormal NONE SEEN The [facility] Comment on above: Performed By: #### R ENAL, MG, URIC #### [facility] [address] [place] [address] Dr. Rizwan Fernando URIC ACID SERUMon 12-04-2021 Urate [Mass/Vol] 5.5 mg/dL Normal 2.6-6.0 [facility] Comment on above: Performed By: #### R ENAL, MG, URIC #### [facility] [address] [place] [address] Dr. Rizwan Fernando URINE T PROTEIN CREAT RATIOo n 12-04-2021 Protein (U) [Mass/Vol] 10.7 mg/dL Normal <=12.0 [facility] Comment on above: Performed By: #### R ENAL, MG, URIC #### [facility] [address] [place] [address] Dr. Rizwan Fernando UR PROT CREAT RAT 0.[address] [facility] Comment on above: Performed By: #### R ENAL, MG, URIC #### [facility] [address] [place] [address] Dr. Rizwan Fernando URINE CREAT 59.94 mg/dL Normal 20.00-300.00 [facility] Comment on above: Performed By: #### R ENAL, MG, URIC #### [facility] [address] [place] [address] Dr. Rizwan Fernando VITAMIN B12on 12-04-2021 Cobalamin (Vitamin B12) [Mass/Vol] 1679.0 pg/mL Critically high 193.0-986.0 [facility] Comment on above: Performed By: #### V ITB12 #### [facility] [address] [place] [address] Dr. Rizwan Fernando VITAMIN D 25 OHon 12-04-2021 VIT D 25-OH 38.3 ng/mL Normal [facility] Comment on above: Performed By: #### R ENAL, MG, URIC #### [facility] [address] [place] [address] Dr. Rizwan Fernando VIT D RANGES SEE BELOW Normal [facility] Comment on above: Result Comment: <20 ng/mL Vit D deficient 20 - <30 ng/mL Vit D insufficient 30 - 100 ng/mL Vit D sufficient >100 ng/mL Potential Toxicity Performed By: #### R ENAL, MG, URIC #### [facility] [address] [place] [address] Dr. Rizwan Fernando OVA AND PARASITE EXAMINATION on 06-25-2021 Ova + Parasite Exam Final report Normal [facility] Comment on above: Result Comment: Thes e results were obtained using wet preparation(s) and trichrome stained smear. This test does not include testing for Cryptosporidium parvum, Cyclospora, or Microsporidia. Performed By: #### R ENAL, MG, URIC #### [facility] [address] [place] [address] Dr. Rizwan Fernando Result 1 Comment Normal [facility] Comment on above: Result Comment: No o va, cysts, or parasites seen. . One negative specimen does not rule out the possibility of a parasitic infection. Performed By: #### R ENAL, MG, URIC #### [facility] [address] [place] [address] Dr. Rizwan Fernando A1C HEMOGLOBINon 06-23-2021 HbA1c (Bld) [Mass fraction] 6.1 % [employer] [facility] [employer] Other Glucose - FINGER STICKon Glucose [Mass/Vol] 153 mg/dL POI Other HbA1c (Bld) [Mass fraction]o n 06-23-[address] [facility] [employer] Other STOOL CULTUREon 06-21-2021 Campylobacter Culture Final report Normal [facility] Comment on above: Performed By: #### C XSTOOL #### [facility] [address] [place] [address] Dr. Rizwan Fernando E coli Shiga Toxin EIA Negative Normal Negative [facility] Comment on above: Performed By: #### C XSTOOL #### [facility] [address] [place] [address] Dr. Rizwan Fernando Result 1 Comment Normal [facility] Comment on above: Result Comment: No S almonella or Shigella recovered. Performed By: #### C XSTOOL #### [facility] [address] [place] [address] Dr. Rizwan Fernando Result Comment: No C ampylobacter species isolated. Salmonella/Shigella Screen Final report Normal [facility] Comment on above: Performed By: #### C XSTOOL #### [facility] [address] [place] [address] Dr. Rizwan Fernando C. DIFF PCRon 06-18-2021 C. DIFFICILE PCR Negative Normal NEGATIVE [facility] Comment on above: Performed By: #### R ENAL, MG, URIC #### [facility] [address] [place] [address] Dr. Rizwan Fernando OCC BLD IMMUNOASSAYon 2021 OCCULT BLOOD Negative Normal NEGATIVE [facility] Comment on above: Performed By: #### R ENAL, MG, URIC #### [facility] [address] [place] [address] Dr. Rizwan Fernando FERRITINon 06-12-2021 Ferritin [Mass/Vol] 64.0 ng/mL Normal 11.1-264.0 [facility] Comment on above: Performed By: #### R ENAL, MG, URIC #### [facility] [address] [place] [address] Dr. Rizwan Fernando HEMOGRAM AND PLATELon 2021 Hematocrit (Bld) [Volume fraction] 39.1 % Normal 36.0-48.0 [facility] Comment on above: Performed By: #### R ENAL, MG, URIC #### [facility] [address] [place] [address] Dr. Rizwan Fernando Hemoglobin (Bld) [Mass/Vol] 12.6 g/dL Normal 12.0-16.0 [facility] Comment on above: Performed By: #### R ENAL, MG, URIC #### [facility] [address] [place] [address] Dr. Rizwan Fernando MCH (RBC) [Entitic mass] 28.3 pg Normal 26.7-34.0 [facility] Comment on above: Performed By: #### R ENAL, MG, URIC #### [facility] [address] [place] [address] Dr. Rizwan Fernando MCHC (RBC) [Mass/Vol] 32.2 g/dL Normal 29.9-35.2 [facility] Comment on above: Performed By: #### R ENAL, MG, URIC #### [facility] [address] [place] [address] Dr. Rizwan Fernando MCV (RBC) [Entitic vol] 87.9 fL Normal 81.0-99.0 [facility] Comment on above: Performed By: #### R ENAL, MG, URIC #### [facility] [address] [place] [address] Dr. Rizwan Fernando PLT 181 103/ul Normal 150-450 [facility] Comment on above: Performed By: #### R ENAL, MG, URIC #### [facility] [address] [place] [address] Dr. Rizwan Fernando RBC 4.45 106/ul Normal 4.20-5.40 [facility] Comment on above: Performed By: #### R ENAL, MG, URIC #### [facility] [address] [address] [address] Rizwan Fernando WBC 7.3 103/ul Normal 4.0-11.0 [facility] Comment on above: Performed By: #### R ENAL, MG, URIC #### [facility] [address] [place] [address] Dr. Rizwan Fernando IRON AND TIBCon 06-12-2021 % SATURATION 19.4 % Normal [facility] Comment on above: Performed By: #### R ENAL, MG, URIC #### [facility] [address] [place] [address] Dr. Rizwan Fernando Iron [Mass/Vol] 55.0 ug/dL Normal 37.0-170.0 [facility] Comment on above: Performed By: #### R ENAL, MG, URIC #### [facility] [address] [place] [address] Dr. Rizwan Fernando TIBC DIRECT 284.0 ug/dL Normal 261.0-497.0 [facility] Comment on above: Performed By: #### R ENAL, MG, URIC #### [facility] [address] [place] [address] Dr. Rizwan Fernando MAGNESIUMon 06-12-2021 Magnesium [Mass/Vol] 1.9 mg/dL Normal 1.6-2.3 [facility] Comment on above: Performed By: #### R ENAL, MG, URIC #### [facility] [address] [place] [address] Dr. Rizwan Fernando RENAL FUNCTION PANELon 06-12 Albumin [Mass/Vol] 3.8 g/dL Normal 3.4-5.0 [facility] Comment on above: Performed By: #### R ENAL, MG, URIC #### [facility] [address] [address] [address] Rizwan Fernando Calcium [Mass/Vol] 8.6 mg/dL Normal 8.5-10.1 [facility] Comment on above: Performed By: #### R ENAL, MG, URIC #### [facility] [address] [address] [address] Rizwan Fernando Chloride [Moles/Vol] 102 mmol/L Normal 98-107 [facility] Comment on above: Performed By: #### R ENAL, MG, URIC #### [facility] [address] [address] [address] Rizwan Fernando CO2 [Moles/Vol] 31.2 mmol/L Critically high 22.0-30.0 [facility] Comment on above: Performed By: #### R ENAL, MG, URIC #### [facility] [address] [place] [address] Dr. Rizwan Fernando Creatinine [Mass/Vol] 1.07 mg/dL Critically high 0.52-1.04 [facility] Comment on above: Performed By: #### R ENAL, MG, URIC #### [facility] [address] [place] [address] Dr. Rizwan Fernando EGFR-AF CONGOLESE >60 Normal >=60 [facility] Comment on above: Performed By: #### R ENAL, MG, URIC #### [facility] [address] [place] [address] Dr. Rizwan Fernando EGFR-NON AF CONGOLESE 50 mL/min/1.73m2 Critically low >=60 [facility] Comment on above: Performed By: #### R ENAL, MG, URIC #### [facility] [address] [place] [address] Dr. Rizwan Fernando Glucose [Mass/Vol] 122 mg/dL Critically high 74-106 [facility] Comment on above: Performed By: #### R ENAL, MG, URIC #### [facility] [address] [place] [address] Dr. Rizwan Fernando Phosphate [Mass/Vol] 4.6 mg/dL Critically high 2.5-4.5 [facility] Comment on above: Performed By: #### R ENAL, MG, URIC #### [facility] [address] [place] [address] Dr. Rizwan Fernando Potassium [Moles/Vol] 4.1 mmol/L Normal 3.4-5.0 [facility] Comment on above: Performed By: #### R ENAL, MG, URIC #### [facility] [address] [place] [address] Dr. Rizwan Fernando Sodium [Moles/Vol] 138 mmol/L Normal 137-145 [facility] Comment on above: Performed By: #### R ENAL, MG, URIC #### [facility] [address] [place] [address] Dr. Rizwan Fernando Urea nitrogen [Mass/Vol] 27.0 mg/dL Critically high 7.0-18.0 [facility] Comment on above: Performed By: #### R ENAL, MG, URIC #### [facility] [address] [place] [address] Dr. Rizwan Fernando UA RANDOM W/MICROSCOPICon BACTERIA NONE SEEN Normal NONE SEEN [facility] Comment on above: Performed By: #### U AMIC #### [facility] [address] [place] [address] Dr. Rizwan Fernando Bilirubin Ql (U) Negative Normal NEGATIVE [facility] Comment on above: Performed By: #### U AMIC #### [facility] [address] [place] [address] Dr. Rizwan Fernando CAST NONE SEEN Normal NONE SEEN [facility] Comment on above: Performed By: #### U AMIC #### [facility] [address] [place] [address] Dr. Rizwan Fernando Clarity (U) CLEAR Normal CLEAR [facility] Comment on above: Performed By: #### U AMIC #### [facility] [address] [place] [address] Dr. Rizwan Fernando Color (U) LT. YELLOW Normal YELLOW [facility] Comment on above: Performed By: #### U AMIC #### [facility] [address] [address] [address] Rizwan Fernando Crystals LM Nom (Urine sed) NONE SEEN Normal NONE SEEN [facility] Comment on above: Performed By: #### U AMIC #### [facility] [address] [address] [address] Rizwan Fernando Epithelial cells LM Ql (Urine sed) RARE Normal NONE SEEN /RARE [facility] Comment on above: Performed By: #### U AMIC #### [facility] [address] [address] [address] Rizwan Fernando Glucose Ql (U) Negative Normal NEGATIVE [facility] Comment on above: Performed By: #### U AMIC #### [facility] [address] [address] [address] Rizwan Fernando Hemoglobin Ql (U) Negative Normal NEGATIVE [facility] Comment on above: Performed By: #### U AMIC #### [facility] [address] [address] [address] Rizwan Fernando Ketones Ql (U) Negative Normal NEGATIVE [facility] Comment on above: Performed By: #### U AMIC #### [facility] [address] [address] [address] Rizwan Fernando LEUKOCYTES Negative Normal NEGATIVE [facility] Comment on above: Performed By: #### U AMIC #### [facility] [address] [address] [address] Rizwan Fernando MUCOUS NONE SEEN Normal NONE SEEN [facility] Comment on above: Performed By: #### U AMIC #### [facility] [address] [address] [address] Rizwan Fernando Nitrite Ql (U) Negative Normal NEGATIVE [facility] Comment on above: Performed By: #### U AMIC #### [facility] [address] [address] [address] Rizwan Fernando pH (U) 6.0 [pH] Normal 5-9 [facility] Comment on above: Performed By: #### U AMIC #### [facility] [address] [address] [address] Rizwan Fernando RBC NONE SEEN Abnormal 0-2 [facility] Comment on above: Performed By: #### U AMIC #### [facility] [address] [place] [address] Dr. Rizwan Fernando SPEC GRAVITY 1.010 Normal 1.005-<=1.025 [facility] Comment on above: Performed By: #### U AMIC #### [facility] [address] [place] [address] Dr. Rizwan Fernando TRICH NONE SEEN Normal NONE SEEN [facility] Comment on above: Performed By: #### U AMIC #### [facility] [address] [place] [address] Dr. Rizwan Fernando UA PROTEIN Negative Normal NEGATIVE/ TRACE [facility] Comment on above: Performed By: #### U AMIC #### [facility] [address] [place] [address] Dr. Rizwan Fernando Urobilinogen Qn (U) 0.2 {Wil'U}/dL Normal 0.2 - 1. 0 [facility] Comment on above: Performed By: #### U AMIC #### [facility] [address] [place] [address] Dr. Rizwan Fernando WBC NONE SEEN Normal NONE SEEN [facility] Comment on above: Performed By: #### U AMIC #### [facility] [address] [place] [address] Dr. Rizwan Fernando YEAST NONE SEEN Normal NONE SEEN [facility] Comment on above: Performed By: #### U AMIC #### [facility] [address] [place] [address] Dr. Rizwan Fernando URIC ACID SERUMon 06-12-2021 Urate [Mass/Vol] 5.5 mg/dL Normal 2.5-6.2 [facility] Comment on above: Performed By: #### R ENAL, MG, URIC #### [facility] [address] [place] [address] Dr. Rizwan Fernando URINE T PROTEIN CREAT RATIOo n 06-12-2021 Protein (U) [Mass/Vol] 17.5 mg/dL Critically high <=12.0 [facility] Comment on above: Performed By: #### R ENAL, MG, URIC #### [facility] [address] [address] [address] Rizwan Fernando UR PROT CREAT RAT 0.[address] [facility] Comment on above: Performed By: #### R ENAL, MG, URIC #### [facility] [address] [address] [address] Rizwan Fernando URINE CREAT 76.34 mg/dL Normal 20.00-300.00 [facility] Comment on above: Performed By: #### R ENAL, MG, URIC #### [facility] [address] [place] [address] Dr. Rizwan Fernando VITAMIN D 25 OHon 06-12-2021 VIT D 25-OH 41.1 ng/mL Normal [facility] Comment on above: Performed By: #### R ENAL, MG, URIC #### [facility] [address] [place] [address] Dr. Rizwan Fernando VIT D RANGES SEE BELOW Normal [facility] Comment on above: Result Comment: <20 ng/mL Vit D deficient 20 - <30 ng/mL Vit D insufficient 30 - 100 ng/mL Vit D sufficient >100 ng/mL Potential Toxicity Performed By: #### R ENAL, MG, URIC #### [facility] [address] [place] [address] Dr. Rizwan Fernando A1C HEMOGLOBINon 12-17-2020 HbA1c (Bld) [Mass fraction] 5.8 % [facility] Other Glucose - FINGER STICKon Glucose [Mass/Vol] 182 mg/dL [facility] Other HbA1c (Bld) [Mass fraction]o n 12-17-2020 A1C HEMOGLOBIN [employer] Other LOWER EXTREMITY JOINT SURVEY on 09-21-2016 LOWER EXTREMITY JOINT [facility] [place] [id number] Patien t Name: ASHLEY WNAG : 1945Sex: FAge: Race: WhiteMRN: [id number]. Location: 84Patient Status: OVisit #: [id number] Date: 09/21/2016 9:05:00 AMCompleted Date: 09/21/2016 09:04 AMRequesting Provider: JACIEL SANTOS Attending Provider: JACIEL SANTOS Report Copy To: Signs & Symptoms: Z96.659 Presence of unspecified artificial knee joint [id number]: AthenaComments: , , , Ordering Provider - JACIEL SANTOS MD , Rendering Provider - JACIEL SANTOS MD , Exam: LOWER EXTREMITY JOINT SURVEYAccession #: [id number] =LOWER EXTREMITY JOINT SURVEY 09/21/2016 9:04 AM [...] knees. Electronically signed by:Donald Engle. Transcribed by: [email or web address], User Resident: Electronically Signed by: DONALD ENGLE @ 09/21/2016 11:55 AM Normal [facility] Comment on above: Order Comment: , , = ========= , Ordering Provider - JACIEL SANTOS MD , Rendering Provider - JACIEL SANTOS MD , Vital Signs Date Time Vital Sign Value Performing Clinician Facility 10-04-2023 13:52-0400 Body height 162.56 cm [facility] 10-04-2023 13:52-0400 Body mass index (BMI) [Ratio] 34.5 kg/m2 [facility] 10-04-2023 13:52-0400 Body weight 91.31 kg [facility] 10-04-2023 13:52-0400 Diastolic blood pressure 72 mm[Hg] [facility] 10-04-2023 13:52-0400 Heart rate 72 /min [facility] 10-04-2023 13:52-0400 Respiratory rate 18 /min [facility] 10-04-2023 13:52-0400 SaO2% (BldA) [Mass fraction] 95 % [facility] 10-04-2023 13:52-0400 Systolic blood pressure 126 mm[Hg] [facility] 06-13-2023 14:04-0400 Body height 162.56 cm PHYSICIAN NO [facility] 06-13-2023 14:04-0400 Body mass index (BMI) [Ratio] 34.9 kg/m2 PHYSICIAN NO [facility] 06-13-2023 14:04-0400 Body temperature 97.2 [degF] PHYSICIAN NO [facility] 06-13-2023 14:04-0400 Body weight 92.16 kg PHYSICIAN NO [facility] 06-13-2023 14:04-0400 Diastolic blood pressure 77 mm[Hg] PHYSICIAN NO [facility] 06-13-2023 14:04-0400 Heart rate 89 /min PHYSICIAN NO [facility] 06-13-2023 14:04-0400 Respiratory rate 16 /min PHYSICIAN NO [facility] 06-13-2023 14:04-0400 SaO2% (BldA) [Mass fraction] 99 % PHYSICIAN NO [facility] 06-13-2023 14:04-0400 Systolic blood pressure 128 mm[Hg] PHYSICIAN NO [facility] 04-13-2023 14:11-0500 Body height 161.3 cm Carlos Baer DPM Work Phone: [facility] 04-13-2023 14:11-0500 Body mass index (BMI) [Ratio] 35.57 kg/m2 Carlos Baer DPM Work Phone: [facility] 04-13-2023 14:11-0500 Body weight 92.53 kg Carlos Baer DPM Work Phone: [facility] 03-31-2023 14:15-0500 Body height 162.56 cm PHYSICIAN NO [facility] 03-31-2023 14:15-0500 Body weight 93.53 kg PHYSICIAN NO [facility] 03-31-2023 14:15-0500 Diastolic blood pressure 70 mm[Hg] PHYSICIAN NO [facility] 03-31-2023 14:15-0500 Systolic blood pressure 120 mm[Hg] PHYSICIAN NO [facility] 12-14-2022 14:40-0400 Body height 162.56 cm Eboni Buck Other [facility] Other 12-14-2022 14:40-0400 Body mass index (BMI) [Ratio] 37.62 kg/m2 Eboni Buck Other [facility] Other 12-14-2022 14:40-0400 Body temperature 96.3 [degF] Eboni Buck Other [facility] Other 12-14-2022 14:40-0400 Body weight 99.43 kg Eboni Buck Other [facility] Other 12-14-2022 14:40-0400 Diastolic blood pressure 80 mm[Hg] Eboni Buck Other [facility] Other 12-14-2022 14:40-0400 Respiratory rate 18 /min Eboni Buck Other [facility] Other 12-14-2022 14:40-0400 SaO2% (BldA) [Mass fraction] 98 % Eboni Buck Other [facility] Other 12-14-2022 14:40-0400 Systolic blood pressure 120 mm[Hg] Eboni Buck Other [facility] Other 09-29-2022 14:45-0400 Body height 162.56 cm Tondra Mapus Other [facility] Other 09-29-2022 14:45-0400 Body mass index (BMI) [Ratio] 37.38 kg/m2 Tondra Mapus Other [facility] Other 09-29-2022 14:45-0400 Body weight 98.79 kg Tondra Mapus Other [facility] Other 09-29-2022 14:45-0400 Diastolic blood pressure 85 mm[Hg] Tondra Mapus Other [facility] Other 09-29-2022 14:45-0400 Respiratory rate 18 /min Tondra Mapus Other [facility] Other 09-29-2022 14:45-0400 SaO2% (BldA) [Mass fraction] 99 % Tondra Mapus Other [facility] Other 09-29-2022 14:45-0400 Systolic blood pressure 149 mm[Hg] Tondra Mapus Other [facility] Other 06-08-2022 15:00-0400 Body height 162.56 cm Eboni Buck Other [facility] Other 06-08-2022 15:00-0400 Body mass index (BMI) [Ratio] 37.83 kg/m2 Eboni Buck Other [facility] Other 06-08-2022 15:00-0400 Body weight 99.97 kg Eboni Buck Other [facility] Other 06-08-2022 15:00-0400 Diastolic blood pressure 78 mm[Hg] Eboni Buck Other [facility] Other 06-08-2022 15:00-0400 Respiratory rate 18 /min Eboni Buck Other [facility] Other 06-08-2022 15:00-0400 SaO2% (BldA) [Mass fraction] 97 % Eboni Buck Other [facility] Other 06-08-2022 15:00-0400 Systolic blood pressure 136 mm[Hg] Eboni Buck Other POI Other 03-31-2022 16:45-0500 Body height 162.56 cm Tondra Mapus Other POI Other 03-31-2022 16:45-0500 Body mass index (BMI) [Ratio] 37.96 kg/m2 Tondra Mapus Other POI Other 03-31-2022 16:45-0500 Body weight 100.34 kg Tondra Mapus Other POI Other 03-31-2022 16:45-0500 Diastolic blood pressure 83 mm[Hg] Tondra Mapus Other POI Other 03-31-2022 16:45-0500 Respiratory rate 18 /min Tondra Mapus Other POI Other 03-31-2022 16:45-0500 SaO2% (BldA) [Mass fraction] 97 % Tondra Mapus Other POI Other 03-31-2022 16:45-0500 Systolic blood pressure 151 mm[Hg] Tondra Mapus Other POI Other 12-21-2021 15:00-0400 Body height 162.56 cm Tondra Mapus Other POI Other 12-21-2021 15:00-0400 Body mass index (BMI) [Ratio] 37.76 kg/m2 Tondra Mapus Other POI Other 12-21-2021 15:00-0400 Body weight 99.79 kg Tondra Mapus Other POI Other 12-21-2021 15:00-0400 Diastolic blood pressure 81 mm[Hg] Tondra Mapus Other POI Other 12-21-2021 15:00-0400 Respiratory rate 20 /min Tondra Mapus Other POI Other 12-21-2021 15:00-0400 SaO2% (BldA) [Mass fraction] 99 % Tondra Mapus Other POI Other 12-21-2021 15:00-0400 Systolic blood pressure 141 mm[Hg] Tondra Mapus Other POI Other 12-14-2021 15:20-0400 Body height 162.56 cm Eboni Buck Other POI Other 12-14-2021 15:20-0400 Body mass index (BMI) [Ratio] 37.66 kg/m2 Eboni Buck Other POI Other 12-14-2021 15:20-0400 Body temperature 96.7 [degF] Eboni Buck Other POI Other 12-14-2021 15:20-0400 Body weight 99.52 kg Eboni Buck Other POI Other 12-14-2021 15:20-0400 Diastolic blood pressure 87 mm[Hg] Eboni Buck Other POI Other 12-14-2021 15:20-0400 Respiratory rate 18 /min Eboni Buck Other POI Other 12-14-2021 15:20-0400 SaO2% (BldA) [Mass fraction] 96 % Eboni Buck Other POI Other 12-14-2021 15:20-0400 Systolic blood pressure 153 mm[Hg] Eboni Buck Other POI Other 09-23-2021 10:55-0400 Body height 162.56 cm Kristin Janae Other POI Other 09-23-2021 10:55-0400 Body mass index (BMI) [Ratio] 37.24 kg/m2 Kristin Janae Other POI Other 09-23-2021 10:55-0400 Body temperature 99.2 [degF] Kristin Janae Other POI Other 09-23-2021 10:55-0400 Body weight 98.43 kg Kristin Janae Other POI Other 09-23-2021 10:55-0400 Diastolic blood pressure 74 mm[Hg] Kristin Janae Other POI Other 09-23-2021 10:55-0400 Respiratory rate 18 /min Kristin Janae Other POI Other 09-23-2021 10:55-0400 SaO2% (BldA) [Mass fraction] 98 % Kristin Janae Other POI Other 09-23-2021 10:55-0400 Systolic blood pressure 129 mm[Hg] Kristin Cardoso Other POI Other 06-23-2021 15:30-0400 Body height 162.56 cm Tondra Mapus Other POI Other 06-23-2021 15:30-0400 Body mass index (BMI) [Ratio] 37.59 kg/m2 Tondra Mapus Other POI Other 06-23-2021 15:30-0400 Body weight 99.34 kg Tondra Mapus Other POI Other 06-23-2021 15:30-0400 Diastolic blood pressure 76 mm[Hg] Tondra Mapus Other POI Other 06-23-2021 15:30-0400 Respiratory rate 16 /min Tondra Mapus Other POI Other 06-23-2021 15:30-0400 SaO2% (BldA) [Mass fraction] 99 % Tondra Mapus Other POI Other 06-23-2021 15:30-0400 Systolic blood pressure 121 mm[Hg] Tondra Mapus Other POI Other 06-17-2021 15:00-0400 Body height 162.56 cm Eboni Buck Other POI Other 06-17-2021 15:00-0400 Body mass index (BMI) [Ratio] 37.59 kg/m2 Eboni Buck Other POI Other 06-17-2021 15:00-0400 Body temperature 97.2 [degF] Eboni Buck Other POI Other 06-17-2021 15:00-0400 Body weight 99.34 kg Eboni Buck Other POI Other 06-17-2021 15:00-0400 Diastolic blood pressure 81 mm[Hg] Eboni Buck Other POI Other 06-17-2021 15:00-0400 Respiratory rate 18 /min Eboni Buck Other POI Other 06-17-2021 15:00-0400 SaO2% (BldA) [Mass fraction] 95 % Eboni Buck Other POI Other 06-17-2021 15:00-0400 Systolic blood pressure 137 mm[Hg] Eboni Buck Other POI Other 12-23-2020 14:40-0400 Body height 162.56 cm Eboni Buck Other POI Other 12-23-2020 14:40-0400 Body mass index (BMI) [Ratio] 38.21 kg/m2 Eboni Buck Other POI Other 12-23-2020 14:40-0400 Body temperature 97.3 [degF] Eboni Buck Other POI Other 12-23-2020 14:40-0400 Body weight 100.97 kg Eboni Buck Other POI Other 12-23-2020 14:40-0400 Diastolic blood pressure 83 mm[Hg] Eboni Buck Other POI Other 12-23-2020 14:40-0400 Respiratory rate 18 /min Eboni Buck Other POI Other 12-23-2020 14:40-0400 SaO2% (BldA) [Mass fraction] 93 % Eboni Buck Other POI Other 12-23-2020 14:40-0400 Systolic blood pressure 127 mm[Hg] Eboni Buck Other POI Other 12-17-2020 15:15-0400 Body height 162.56 cm Tondra Mapus Other POI Other 12-17-2020 15:15-0400 Body mass index (BMI) [Ratio] 37.76 kg/m2 Tondra Mapus Other POI Other 12-17-2020 15:15-0400 Body weight 99.79 kg Tondra Mapus Other POI Other 12-17-2020 15:15-0400 Diastolic blood pressure 80 mm[Hg] Tondra Mapus Other POI Other 12-17-2020 15:15-0400 Respiratory rate 20 /min Tondra Mapus Other POI Other 12-17-2020 15:15-0400 SaO2% (BldA) [Mass fraction] 97 % Bernardino Talavera Other POI Other 12-17-2020 15:15-0400 Systolic blood pressure 133 mm[Hg] Bernardino Talavera Other POI Other Encounters Encounter Date Encounter Type Care [...] Evaluation and management of inpatient ANDRÉS VAZQUEZ [facility] Start: 10-05-2023 End: 10-05-2023 Evaluation and management of inpatient JEFFREY ETIENNESharp [facility] Start: 10-04-2023 End: 10-04-2023 ambulatory [facility] Work Phone: Start: 10-04-2023 End: 10-04-2023 Patient encounter procedure [facility] Work Phone: Start: 09-28-2023 Preoperative state Leo young PT Work Phone: [facility] Start: 09-28-2023 End: 09-28-2023 ambulatory DANA TAPIA Not Available Start: 09-27-2023 End: 09-27-2023 ambulatory JEFFREY BLOOM [facility] Start: 09-27-2023 Encounter for other preprocedural examination [facility] Start: 09-22-2023 End: 09-22-2023 ambulatory JEFFREY BLOOM Not Available Start: 09-14-2023 End: 09-14-2023 ambulatory MAY PULIDO Not Available Start: 09-12-2023 End: 09-12-2023 ambulatory MAY PULIDO Not Available Start: 07-12-2023 End: 07-12-2023 ambulatory CARLOS BAER Not Available Start: 07-07-2023 End: 07-07-2023 ambulatory MAY PULIDO Not Available Start: 06-23-2023 End: 06-23-2023 ambulatory MAY PULIDO Not Available Start: 06-20-2023 End: 06-20-2023 ambulatory DANA TAPIA Not Available Start: 06-13-2023 End: 06-13-2023 ambulatory PHYSICIAN NO [facility] Work Phone: Start: 06-13-2023 End: 06-13-2023 Patient encounter procedure PHYSICIAN NO [facility] Work Phone: Start: 06-07-2023 Non-patient / Non-visit PHYSICIAN NO [facility] Work Phone: Start: 05-11-2023 Non-patient / Non-visit PHYSICIAN NO [facility] Work Phone: Start: 04-13-2023 End: 04-13-2023 Patient encounter procedure Carlos Baer DPM Work Phone: [facility] Comment on above: Dermatophytosis of n ail (Primary Dx); Dystrophic nail; Pain around toenail, right foot; Pain around toenail, left foot Start: 04-13-2023 End: 04-13-2023 ambulatory CARLOS BAER Not Available Start: 04-13-2023 Bamboo flowsheet Carlos London er DPM Work Phone: [facility] Start: 04-13-2023 Bamboo flowsheet Carlos London er DPM Work Phone: [facility] Start: 03-31-2023 End: 04-01-2023 ambulatory Tondra K Mapus Facility:[facility] Start: 03-31-2023 End: 03-31-2023 ambulatory PHYSICIAN NO [facility] Work Phone: Start: 03-31-2023 End: 03-31-2023 Discharged Recurring PHYSICIAN NO [facility] Work Phone: Start: 03-31-2023 End: 03-31-2023 Patient encounter procedure PHYSICIAN NO [facility]- Start: 03-28-2023 End: 03-28-2023 ambulatory DANA AICHHOLZ Not Available Start: 03-28-2023 Patient encounter procedure Carlos Baer DPM Work Phone: [facility] Start: 03-25-2023 End: 03-25-2023 ambulatory TONDRA K MAPUS [facility] Start: 03-03-2023 End: 03-03-2023 ambulatory Eboni Buck Other POI Other Start: 03-03-2023 Telephone encounter Eboni Buck [facility] Start: 02-07-2023 End: 02-07-2023 ambulatory DANA AICHHOLZ Not Available Start: 01-11-2023 End: 01-11-2023 ambulatory CARLOS BAER Not Available Start: 12-14-2022 End: 12-14-2022 ambulatory Eboni Buck Other POI Other Start: 12-14-2022 Office outpatient vi sit 15 minutes Eboni Buck [facility] Start: 09-29-2022 (DM) Diabetes Tondra Mapus [facility] Start: 09-29-2022 End: 09-29-2022 ambulatory Tondra Mapus Other POI Other Start: 09-03-2022 End: 09-03-2022 ambulatory Tondra Mapus Other POI Other Start: 09-03-2022 Telephone encounter Tondra Mapus [facility] Start: 06-08-2022 End: 06-08-2022 ambulatory Eboni Buck Other POI Other Start: 06-08-2022 Office outpatient vi sit 25 minutes Eboni Buck [facility] Start: 06-02-2022 End: 06-03-2022 ambulatory EBONI BUCK Facility:[facility] Start: 04-01-2022 End: 04-01-2022 ambulatory Tondra Mapus Other POI Other Start: 04-01-2022 Telephone encounter Tondra Mapus [facility] Start: 03-31-2022 (DM) Diabetes Tondra Mapus [facility] Start: 03-31-2022 End: 03-31-2022 ambulatory Tondra Mapus Other POI Other Start: 03-31-2022 Telephone encounter Eboni Buck [facility] Start: 03-30-2022 End: 03-31-2022 ambulatory TONDRA MAPUS Facility:[facility] Start: 02-05-2022 End: 02-06-2022 ambulatory [employer] DANA AICBIANCAZ Facility:[facility] Start: 01-14-2022 End: 01-14-2022 ambulatory Eboni Buck Other POI Other Start: 01-14-2022 Telephone encounter Eboni Buck [facility] Start: 12-29-2021 End: 12-29-2021 ambulatory Eboni Buck Other POI Other Start: 12-29-2021 Telephone encounter Eboni Buck [facility] Start: 12-22-2021 End: 12-23-2021 ambulatory EBONI BUCK Facility:[facility] Start: 12-21-2021 (DM) Diabetes Tondra Mapus [facility] Start: 12-21-2021 End: 12-21-2021 ambulatory Tondra Mapus Other POI Other Start: 12-14-2021 End: 12-14-2021 ambulatory Eboni Buck Other POI Other Start: 12-14-2021 Office outpatient vi sit 25 minutes Eboni Buck [facility] Start: 12-04-2021 End: 12-05-2021 ambulatory TONDRA MAPUS Facility:[facility] Start: 09-23-2021 End: 09-23-2021 ambulatory Kristin Janae Other POI Other Start: 09-23-2021 Office outpatient vi sit 15 minutes Kristin Janae [facility] Start: 06-23-2021 (DM) Diabetes Tondra Mapus [facility] Start: 06-23-2021 End: 06-23-2021 ambulatory Tondra Mapus Other POI Other Start: 06-18-2021 End: 06-18-2021 ambulatory [employer] DANATaco TAPIA Facility:[facility] Start: 06-17-2021 End: 06-17-2021 ambulatory LIZETTE TAPIA [facility] Other Start: 06-17-2021 Office outpatient vi sit 25 minutes Eboni Buck [facility] Start: 06-12-2021 End: 06-13-2021 ambulatory EBONI BUCK Facility:[facility] Start: 06-09-2021 End: 06-09-2021 ambulatory Bernardino Talavera Other [facility] Other Start: 06-09-2021 Telephone encounter Bernardino Talavera [facility] Start: 12-23-2020 Office outpatient vi sit 15 minutes Eboni Buck [facility] Start: 12-17-2020 (DM) Diabetes Tondra Talavera [facility] Start: 12-05-2020 ([facility] C Vac) [facility] Co vid Vaccine Nataleevijay Camacho [facility] Start: 09-21-2016 End: 09-22-2016 Ambulatory JACIEL SANTOS Facility:[facility] Plan of Treatment Date Care Activity Detail Author Start: 12-10-2024 Glaucoma screening Diabetes: R etinopathy Screening [facility] Start: 06-06-2024 Urine screening for protein Diabetes: Urine Protein Screening [facility] Start: 04-05-2024 Hemoglobin A1c measurement Diabetes: Hemoglobin A1C [facility] Start: 03-28-2024 Medicare Annual Wellness (AWV) Medicare Annual Wellness (AWV) [facility] Start: 01-16-2024 End: 01-16-2024 Patient encounter procedure 01/16/2024 2:15 PM EST Procedure Visit [facility] [address] [facility] [place] [address] Carlos Baer DPM [address] [place] [address] [facility] Start: 01-11-2024 End: 01-11-2024 Patient encounter procedure 01/11/2024 2:20 PM EST Office Visit [facility] [address] [place] [address] Dana Tapia, HHA [address] [place] [address] [facility] Start: 12-12-2023 End: 12-12-2023 Patient encounter procedure 12/12/2023 8:30 AM EDT Office Visit [facility] [address] [place] [id number] Jr. Carlin Holley, DO [address] [place] [address] [facility] Start: 12-09-2023 End: 12-09-2023 ambulatory 12/09/2023 7:30 AM EDT Treatment [facility] [address] [place] [phone] Jesenia Jorge, HAND CLERICAL VERIFIER [address] [place] [address] [facility] Start: 12-07-2023 End: 12-07-2023 ambulatory 12/07/2023 2:00 PM EDT Treatment [facility] [address] [place] [phone] Leo Goodwin, PT [address] [place] [address] [facility] Start: 12-02-2023 End: 12-02-2023 ambulatory 12/02/2023 2:00 PM EDT Treatment [facility] [address] [place] [phone] Jesenia Jorge, HAND CLERICAL VERIFIER [address] [place] [address] [facility] Start: 11-30-2023 End: 11-30-2023 ambulatory 11/30/2023 7:00 AM EDT Treatment [facility] [address] [place] [address] Leo Goodwin, PT [address] [place] [address] Arrived [facility] Comment on above: Arrived Start: 09-26-2023 End: 09-26-2023 Patient encounter procedure 09/26/2023 2:20 PM EDT Office Visit [facility] [address] [place] [address] Dana Tapia, HHA [address] [place] [address] [facility] Start: 07-12-2023 End: 07-12-2023 Patient encounter procedure 07/12/2023 2:15 PM EDT Procedure Visit [facility] [address] [place] [id number] Carlos Baer DPM [address] [place] [address] [facility] Start: 06-29-2023 Hemoglobin A1c measurement Diabetes: Hemoglobin A1C [facility] Start: 04-13-2023 End: 04-13-2023 Patient encounter procedure 04/13/2023 2:15 PM EST Procedure Visit [facility] [address] [place] [id number] Carlos Baer DPTamara [address] [place] [address] Arrived [facility] Comment on above: Arrived Renal function 2000 panel - Serum or Plasma [facility] Immunizations Immunization Date Immunization Notes Care Provider Fa cili 11-22-2023 Seasonal trivalent influenza vaccine, adjuvanted, preservative free Leo Goodwin PT Work Phone: [facility] 12-04-2022 Influenza, High-dose Seasonal, Quadrivalent, Preservative Free Leo Buddy PT Work Phone: [facility] 03-19-2022 zoster vaccine recombinant Leo Buddy PT Work Phone: [facility] 12-06-2021 Influenza, High-dose Seasonal, Quadrivalent, Preservative Free Leo Buddy PT Work Phone: [facility] 11-10-2021 zoster vaccine recombinant Leo Buddy PT Work Phone: [facility] 12-05-2020 COVID-19 Pfizer Natalee Fitt Other [facility] 11-30-2020 Influenza, High-dose Seasonal, Quadrivalent, Preservative Free Leo Buddy PT Work Phone: [facility] 04-25-2020 COVID-19 Vaccine Pfi zer - Documentation Purposes Only Natalee Fitt Other [facility] 04-03-2020 COVID-19 Vaccine Pfi zer - Documentation Purposes Only Natalee Fitt Other [facility] 11-12-2019 unknown vaccine or immune globulin Leo Buddy PT Work Phone: [facility] 12-30-2018 influenza, high dose seasonal, preservative-free Leo Buddy PT Work Phone: [facility] 11-17-2017 influenza, high dose seasonal, preservative-free Leo Buddy PT Work Phone: [facility] 12-07-2016 influenza, high dose seasonal, preservative-free Leo Buddy PT Work Phone: [facility] 01-27-2016 influenza, seasonal, injectable, preservative free Leo Buddy PT Work Phone: [facility] 01-27-2016 pneumococcal conjuga te vaccine, 13 valent Leo Buddy PT Work Phone: [facility] 12-03-2014 influenza, seasonal, injectable, preservative free Leo Goodwin PT Work Phone: [facility] 11-23-2013 influenza, seasonal, injectable, preservative free Leo Goodwin PT Work Phone: [facility] 04-14-2012 pneumococcal polysaccharide vaccine, 23 valent Leo Goodwin PT Work Phone: [facility] Healthcare Payers Date Payer Category Payer Unknown AARP AARP [id number] 2022-Present [address] [place] [address] [id number] 2018 Self-pay [id number] 2012 Medicare MEDICARE MEDICAR E PART B [id number] 2012-Present [address] [address] [place] [address] Medicare [id number] 1959 Medicare [id number] 2.16.840.1.127053.19 1959 Unknown [id number] 2.16.840.1.350189.19 1947 Unknown [id number] 2.16.840.1.540400.3.579.2.593 1947 Unknown [id number] 2.16.840.1.156754.3.579.2.593 1947 Unknown [id number] 2.16.840.1.188691.3.579.2.593 1947 Unknown [id number] 2.16.840.1.190139.3.579.2.593 1947 Unknown [id number] 2.16.840.1.188737.3.579.2.593 1947 Unknown [id number] 2.16.840.1.759035.3.579.2.593 1947 Unknown [id number] 2.16.840.1.984666.3.579.2.593 1947 Unknown [id number] 2.16.840.1.133521.3.579.2.593 1947 Unknown [id number] 2.16.840.1.687049.3.579.2.593 1947 Unknown [id number] 2.16.840.1.009040.3.579.2.1286 1947 Unknown [id number] 2.16.840.1.264888.3.579.2.1286 1947 Unknown [id number] 2.16.840.1.924405.3.579.2.1286 1947 Unknown [id number] 2.16.840.1.776130.3.579.2.1286 1947 Unknown [id number] 2.16.840.1.794709.3.579.2.1286 1947 Unknown [id number] 2.16.840.1.547690.3.579.2.1286 1947 Unknown [id number] 2.16.840.1.499320.3.579.2.1286 1947 Unknown [id number] 2.16.840.1.331945.3.579.2.1259 1947 Unknown [id number] 2.16.840.1.141274.3.579.2.1259 1947 Unknown [id number] 2.16.840.1.856056.3.579.2.1259 1947 Unknown [id number] 2.16.840.1.779825.3.579.2.1259 1947 Unknown [id number] 2.16.840.1.523966.3.579.2.1258 1947 Unknown [id number] 2.16.840.1.244206.3.579.2.1258 1947 Unknown [id number] 2.16.840.1.208102.3.579.2.1258 1947 Unknown [id number] 2.16.840.1.704060.3.579.2.1258 1947 Unknown [id number] 2.16.840.1.822256.3.579.2.1258 1947 Unknown [id number] 2.16.840.1.340779.3.579.2.1258 1947 Unknown [id number] 2.16.840.1.732350.3.579.2.1258 1947 Unknown [id number] 2.16.840.1.066881.3.579.2.1258 1947 Unknown [id number] 2.16.840.1.611398.3.579.2.1258 1947 Unknown [id number] 2.16.840.1.467028.3.579.2.1258 1947 Unknown [id number] 2.16.840.1.179939.3.579.2.1258 1947 Unknown [id number] 2.16.840.1.737788.3.579.2.1258 1947 Unknown [id number] 2.16.840.1.173230.3.579.2.1258 1947 Unknown [id number] 2.16.840.1.344268.3.579.2.1258 1947 Unknown [id number] 2.16.840.1.013123.3.579.2.1258 1947 Unknown [id number] 2.16.840.1.161645.3.579.2.1259 Medicare [id number] Unknown [id number] 2.16.840.1.838661.3.579.2.531 Social History Date Type Detail Facility Unknown if ever smoked [facility] Other Start: 03-28-2023 End: 09-28-2023 Sex Assigned [...] to any clubs or organizations such as taoist groups, [employer], Thingies or athletic groups, or school groups? 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 documented in this encounter [facility] 04-13-2023 History of Presen t illness Narrative [...] Carlos Baer DPM documented in this encounter [facility] 04-13-2023 Instructions Carlos Baer DPM - 04/13/2023 2:15 PM EST Topical care measures as noted documented in this encounter [facility] 12-14-2022 Evaluation note Encounter Date Diagnosis Assessment [...] due to the PPI. Continue oral magnesium [facility] Other 08-02-2023 Evaluation note* Encounter Date Diagnosis [...] it easier material was printed see above [facility] Other 04-11-2023 Evaluation note* Encounter Date Diagnosis [...] due to the PPI. Continue oral magnesium [facility]I Other 02-01-2023 Evaluation note* Encounter Date Diagnosis [...] for One Touch Test Strips sent to [facility] 03/31/22 7. 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 Continue oral magnesium [facility] Other 07-27-2022 Evaluation note* Encounter Date Diagnosis [...] few days, discuss your symptoms with your domestic travel consultant. Follow-up with your family physician if no improvement in 2 to 3 days. Go to the ER for worsening symptoms or concerns Aug, Other General allergi c reactions home care material was printed [facility] Other 04-26-2022 Evaluation note* Encounter Date Diagnosis [...] it easier material was printed see above [facility] Other 04-20-2022 Evaluation note* Encounter Date Diagnosis [...] within the goal. Continue oral vitamin D. [facility] Other 04-12-2022 Evaluation note* Encounter Date Diagnosis Assessment Notes Treatment Notes Treatment Clinical Notes May, Type 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 (ICD-10 - E11.22) [facility] Other 10-26-2021 Evaluation note* Encounter Date Diagnosis [...] within the goal. Continue oral vitamin D. POI Other 10-20-2021 Evaluation note* Encounter Date Diagnosis [...] it easier material was printed see above [facility] Other 10-08-2021 Evaluation note* Encounter Date Diagnosis Assessment Notes Treatment Notes Treatment Clinical Notes Nov, Encounter for immunization (ICD-10 - Z23) Patient presents for COVID-19 vaccination BOOSTER. Pre-screening form answers evaluated with patient. Patient denies current illness or allergic reaction to component of COVID-19 vaccine. Patient provided with current copy of EUA. [facility] Other Chidc complaint+Reason for visit Narrative* Chief Complaint 6 month f/u / meter Reason for Visit Dietary counseling a nd surveillance Hyperlipidemia Hypertension Type 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 [facility] Work Phone: Evaluation noteNo [employer] Other Evaluation note* Diagnosis Dermatophytosis of nail- Primary Dystrophic nail Other specified disease of nail Pain around toenail, right foot Pain around toenail, left foot documented in this [facility] Work Phone: Evaluation note* Diagnosis Onset Date Resolution Status CKD (chronic kidney disease) stage 3, GFR 30-59 ml/min acute [id number] acute Hypomagnesemia acute Iron deficiency acute Secondary hyperparathyroidism acute Type 2 diabetes mellitus wit h diabetic chronic kidney disease acute Vitamin D deficiency acute [facility] Work Phone: Evaluation note* Diagnosis Onset Date Resolution Status Dietary counseling and surveillance acute Hyperlipidemia acute Hypertension acute Type 2 diabetes mellitus wit h diabetic chronic kidney disease acute [facility] Work Phone: Evaluation note* Diagnosis Acute pain of right shoulder- Primary Shoulder stiffness, right documented in this encounter [facility] HealthcareHistory general Narrative - Reported* Type Description [...] LID TUCK 03/2019 Hospitalization History SEE ABOVE POI Other Summary Purpose Family History Relationship Condition [...] kidney disease) stage 3, GFR 30-59 ml/min [id number] Hypomagnesemia Iron deficiency Secondary hyperparathyroidism Type 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 Vitamin D deficiency Additional Source Comments INFORMATION SOURCE (unrecogn ized section and content) DATE CREATED AUTHOR 08/24/2017 [facility] DATE CREATED AUTHOR AUTHOR'S ORGANIZ ATION 06/08/2022 [facility] DATE CREATED AUTHOR AUTHOR'S ORGANIZ ATION 04/16/2023 [facility] DATE CREATED AUTHOR AUTHOR'S ORGANIZ ATION 10/07/2023 [facility] DATE CREATED AUTHOR AUTHOR'S ORGANIZ ATION 12/04/2023 [facility] REASON FOR VISIT (unrecogniz ed section and content) Reason Comments Nail care Ashley Pranay KoehlerWang christiano s a 77 y.o. female who presents for Nail care. BS 120 A1C 6.0 (03/2023) GUS Talavera 04/05/2023 SS: 8.5-9). Specialty Diagnoses / Procedures Referred By Tyshawn conti Referred To Contact Physical Therapy Diagnoses Status post right rotator cuff repair Procedures [facility] OFFICE/OUTPATIENT NEW HIGH MDM 60 MINUTES May Pulido, HHA [address] [place] [address] Leo Goodwin, PT [address] [place] [address] Referral ID Status Reason Start Date Expiration Date Visits Requested Visits Authorized [id number] Authorized Specialty Services Required 11/14/2023 05/12/2024 30 30 Care Teams (unrecognized sec tion and content) Wet Machine Cutter Relationship Specialty Start Date End Date Lex Choi MD [address] [place] [phone] PCP - General Family Medicine 02/07/23 Dana Tapia NP [address] [place] [phone] Nurse Practitioner Family Medicine 10/11/22 Wet Machine Cutter Relationship Specialty Start Date End Date Lex Choi MD [address] [place] [phone] PCP - General Family Medicine 02/07/23 Dana Tapia NP [address] [place] [phone] Nurse Practitioner Family Medicine 10/11/22 Team Status: [...] 31, 2023 End: March 31, 2023 Bernardino Talavrea APRN Attending Provider Active Start: March 31, [...] October 04, 2023 End: October 04, 2023 Wet Machine Cutter Relationship Specialty Start Date End Date Lex Choi MD [address] [place] [phone] PCP - General Family Medicine 02/07/23 Dana Tapia NP [address] [place] [phone] Nurse Practitioner Family Medicine 10/11/22 Wet Machine Cutter Relationship Specialty Start Date End Date Lex Choi MD [address] [place] [phone] PCP - General Family Medicine 02/07/23 Dana Tapia NP [address] [place] [address] Nurse Practitioner Family Medicine 10/11/22 Goals (unrecognized [...] BE BASED ON THE PRIMARY CLINICAL RECORDS. [employer] provides no warranty or guarantee of the accuracy or completeness of information in this document.
[2023-12-06 08:54] LABS: Chol HDL Ratio 2.3; Cholesterol 150 mg/dL (<=200); HDL Cholesterol 65 mg/dL (40-60); Triglycerides 168 mg/dL (<=150); VLDL CHOLESTEROL 33.6 mg/dL
== END 2023-12-06 07:43 | disposition home or self-care (01) ==
PROVIDERS: PCP Nurse Practitioner
DX: E11.22 Type 2 diabetes mellitus with diabetic chronic kidney disease (principal); N18.31 Chronic kidney disease, stage 3a; E78.5 Hyperlipidemia, unspecified
CPT/HCPCS: 36415; 80061

== ENCOUNTER 2024-02-17 07:55 | Outpatient (OUT) | payer MEDICARE, SELFPAY ==
--- OUTSIDE RECORDS SUMMARY | 2024-02-17 08:00 | XMS_ITS | CCD ---
Author Organization [facility] Care Team Providers Care Sdc Teacher Name Role Phone JACIEL SANTOS Unavailable Unavailable JACIEL SANTOS Unavailable Unavailable JACIEL SANTOS Unavailable Unavailable JACKLYN STARR Unavailable Unavailable Natalee Camacho Unavailable Mapus, Tondra Unavailable Buck, Eboni Unavailable Kristin Cardoso Unavailable AICHHOLZ, RESOURCE MANAGER FORESTER DANA Admitting Unavailable AICHHOLZ, RESOURCE MANAGER FORESTER DANA Attending Unavailable AICHHOLZ, RESOURCE MANAGER FORESTER DANA Primary Care Unavailable DR ANDRÉS HANCOCK V Consulting Unavailable AICHHOLZ, RESOURCE MANAGER FORESTER DANA Consulting Unavailable MAPUS, TONDRA Admitting Unavailable MAPUS, TONDRA Attending Unavailable AICHHOLZ, RESOURCE MANAGER FORESTER DANA Primary Care Unavailable MAPUS, TONDRA Consulting Unavailable BUCK, EBONI Admitting Unavailable BUCK, EBONI Attending Unavailable AICHHOLZ, RESOURCE MANAGER FORESTER DANA Primary Care Unavailable BUCK, EBONI Consulting Unavailable BUCK, EBONI Admitting Unavailable BUCK, EBONI Attending Unavailable AICHHOLZ, RESOURCE MANAGER FORESTER DANA Primary Care Unavailable AICHHOLZ, RESOURCE MANAGER FORESTER DANA Consulting Unavailable BUCK, EBONI Consulting Unavailable AICHHOLZ, RESOURCE MANAGER FORESTER DANA Admitting Unavailable AICHHOLZ, RESOURCE MANAGER FORESTER DANA Attending Unavailable AICHHOLZ, RESOURCE MANAGER FORESTER DANA Primary Care Unavailable AICHHOLZ, RESOURCE MANAGER FORESTER DANA Consulting Unavailable AICHHOLZ, RESOURCE MANAGER FORESTER DANA Admitting Unavailable AICHHOLZ, RESOURCE MANAGER FORESTER DANA Attending Unavailable AICHHOLZ, RESOURCE MANAGER FORESTER DANA Primary Care Unavailable AICHHOLZ, RESOURCE MANAGER FORESTER DANA Consulting Unavailable BUCK, EBONI Admitting Unavailable BUCK, EBONI Attending Unavailable AICHHOLZ, RESOURCE MANAGER FORESTER DANA Primary Care Unavailable BUCK, EBONI Consulting Unavailable MAPUS, TONDRA Admitting Unavailable MAPUS, TONDRA Attending Unavailable AICHHOLZ, RESOURCE MANAGER FORESTER DANA Primary Care Unavailable MAPUS, TONDRA Consulting Unavailable BUCK, EBONI Admitting Unavailable BUCK, EBONI Attending Unavailable AICHHOLZ, RESOURCE MANAGER FORESTER DANA Primary Care Unavailable BUCK, EBONI Consulting Unavailable Aichholz CALENDER ROLL OPERATOR, Dana Unavailable Lex Choi MD Primary Care Provider [phone] NO FAMILY, PHYSICIAN Primary Care Provider Unava ilable Mapus, TAPER PRINTED CIRCUIT LAYOUT Tondra K Attending Provider [phone] NO FAMILY, PHYSICIAN Primary Care Provider Unava ilable Mapus, TAPER PRINTED CIRCUIT LAYOUT Tondra K Attending Provider [phone] AICHHOLZ, DANA J Referring Unavailable AICHHOLZ, DANA J Primary Care Unavailable JEFFREY SCHILLING Attending Unavailable JEFFREY SCHILLING Referring Unavailable AICHHOLZ, DANA J Primary Care Unavailable JEFFREY SCHILLING Referring Unavailable AICHHOLZ, DANA J Primary Care Unavailable WOLF, JEFFREY [place] Admitting Unavailable WOLFJEFFREY Attending Unavailable JEFFREY SCHILLING Referring Unavailable AICHHOLZ, DANA J Primary Care Unavailable ANDRÉS VAZQUEZ Attending Unavailable AICHHOLZ, DANA J Primary Care Unavailable MAPUS, TONDRA K Referring Unavailable AICHHOLZ, DANA J Primary Care Unavailable Aichholz CALENDER ROLL OPERATOR, Dana Unavailable Lex Choi MD Primary Care Provider [phone] Aichholz TAPER PRINTED CIRCUIT LAYOUT-RESOURCE MANAGER FORESTER, Dana Miguelina Primary Care Provider DANIEL WOLF Attending Unavailable AICHHOLZ, DANA J Referring Unavailable AICHHOLZ, DANA J Primary Care Unavailable DANIEL WOLF Referring Unavailable AICHHOLZ, DANA J Primary Care Unavailable AICHHOLZ, DANA J Referring Unavailable AICHHOLZ, DANA J Primary Care Unavailable AICHHOLZ, DANA Attending Unavailable CARLOS BAER Attending Unavailable AICBASSAM, DANA Attending Unavailable MAY PULIDO Attending Unavailable MAY PULIDO Referring Unavailable MAY PULIDO Attending Unavailable CARLOS BAER Attending Unavailable PULIDO, MAY T Attending Unavailable PULIDO, MAY T Referring Unavailable WOLF, JEFFREY [place] Attending Unavailable AICHHOLAdalberto, DANA Attending Unavailable RUSCARLOS VALLES Attending Unavailable PULIDO, MAY T Attending Unavailable PULIDO, MAY T Attending Unavailable BUDDY, LEO Mcintyre Attending Unavailable PULIDO, MAY T Referring Unavailable AICHHOLZ, DANA Attending Unavailable BUDDY, LEO Mcintyre Attending Unavailable PULIDO, MAY T Referring Unavailable JORGE, JESENIA Attending Unavailable PULIDO, MAY T Referring Unavailable JORGE, JESENIA Attending Unavailable PULIDO, MAY T Referring Unavailable JORGE, JESENIA Attending Unavailable PULIDO, MAY T Referring Unavailable PULIDO, MAY T Attending Unavailable BUDDY, LEO Mcintyre Attending Unavailable PULIDO, MAY T Referring Unavailable JORGE, JESENIA Attending Unavailable PULIDO, MAY T Referring Unavailable BUDDY, LEO Mcintyre Attending Unavailable PULIDO, MAY T Referring Unavailable JORGE, JESENIA Attending Unavailable PULIDO, MAY T Referring Unavailable JORGE, JESENIA Attending Unavailable PULIDO, MAY T Referring Unavailable CHRISTINE URIBE Attending Unavailable PULIDO, MAY T Referring Unavailable BUDDY, LEO Mcintyre Attending Unavailable PULIDO, MAY T Referring Unavailable PULIDO, MAY T Attending Unavailable PULIDO, MAY T Referring Unavailable BUDDY, LEO Mcintyre Attending Unavailable JORGE, JESENIA Attending Unavailable PULIDO, MYA T Referring Unavailable WOLF, JEFFREY [place] Attending Unavailable AICHHOLZ, DANA Attending Unavailable RUSHER, CARLOS [place] Attending Unavailable AICHHOLAdalberto, DANA Attending Unavailable NO FAMILY, PHYSICIAN Primary Care Unavailable Mapus, Tondra K Admitting Unavailable Mapus, Tondra K Attending Unavailable Mapus, Tondra K Admitting Unavailable Mapus, Tondra K Attending Unavailable Lex Choi Primary Care Unavailable Allergies Allergy Classification Reported Allergen(s) Allergy Type Date of Onset Reaction(s) Facility (20 sources) Sulfamethoxazole / Trimethoprim Drug Allergy rash ethority Other (19 sources) semaglutide Drug Allergy 03-31-19 24 diarrhea [facility] (13 sources) Soy Protein Shake Drug allergy Unknown [facility] Other (20 sources) metFORMIN Drug Allergy 03-31-19 24 g/i s/e [facility] (5 sources) Soy Balance Drug allergy rash [facility] Other (20 sources) Sulfonamides (Antibiotic) Drug Allergy 10-29-19 17 Hives, Rash [facility] (20 sources) Wound Dressing Adhesive Drug Allergy 09-16-19 23 Unknown [facility] (11 sources) Soy protein; Translations: [SOY] Allergy to substance 12-09-19 Nausea [facility] (5 sources) Sulfamethoxazole; Translations: [sulfamethoxazole] Drug Allergy 03-31-19 [facility] (5 sources) Trimethoprim; Translations: [trimethoprim] Drug Allergy 03-31-19 [facility] (3 sources) Sulfonamides (Antibiotic); Translations: [SULFA (SULFONAMIDE ANTIBIOTICS)] Propensity to adverse reactions to drug (disorder) 10-29-19 [facility] (6 sources) ADHESIVE TAPE-SILICONES; Translations: [ADHESIVE TAPE-SILICONES] Propensity to adverse reactions to drug (disorder) 10-30-19 [facility] (20 sources) Soy protein Allergy to substance 10-04-19 Unknown [facility] (20 sources) Other Allergy to substance 06-13-19 Unknown [facility] (20 sources) Semaglutide Allergy to substance 06-13-19 Diarrhea [facility] (1 source) metFORMIN Drug Allergy 12-12-19 [facility] (1 source) semaglutide Drug allergy (disorder) 12-12-19 [facility] Medications Current Medications Medication Drug Class(es) [...] Start: 06-13-2023 take 2 tablets by mo uth once daily Diphenhydramine-Acetaminophen Active 2 T AB PO Daily June 13, 2023 12:00am alendronic acid 70 mg oral tablet (20 sources) Bisphosphonate Start: 06-13-2023 take 1 tablet by mouth every week Alendronate (Fosamax) 70 mg tablet Active 70 MG PO every week June 13, 2023 12:00am Start: 03-08-2023 End: 02-08-2024 alendronate (Fosamax) 70 MG tablet Indications: Osteoporosis Take 1 tablet (70 mg) by mouth every 7 (seven) days for 28 days Take in the morning with a full glass of water, on an empty stomach, and do not take anything else by mouth or lie down for the next 30 min. 12 tablet 1 09/28/2023 Active amLODIPine 5 mg oral tablet (20 sources) Dihydropyridine Calcium Channel Leti Start: 06-13-2023 End: 04-10-2024 take 1 tablet by mouth once daily amLODIPine (Norvasc) 5 MG tablet Indications: Essential (primary) hypertension (CMS/HCC) Take 1 tablet (5 mg) by mouth Daily 90 tablet 1 09/28/2023 12/27/2023 Active Start: 06-28-2022 take 1 tablet by fidel th in the morning amLODIPine (Norvasc) 5 MG tablet Take 5 mg by mouth in the morning. 0 06/28/2022 Active Start: 08-08-2016 take 0.5 tablet by m outh once daily amLODIPine (NORVASC) 10 mg tablet Take 0.5 tablets (5 mg total) by mouth once daily. 3 08/08/2016 Active amoxicillin 875 mg / clavulanate 125 mg oral tablet (2 sources) Penicillin-class Antibacterial Start: 02-06-2024 End: 02-16-2024 take 1 tablet by mouth in the morning amoxicillin-clavulanate (Augmentin) 875-125 MG tablet Indications: Acute non-recurrent pansinusitis Take 1 tablet (875 mg) by mouth in the morning and 1 tablet (875 mg) before bedtime. Do all this for 10 days. 20 tablet 02/06/2024 02/16/2024 Active Ascorbic Acid (20 sources) Vitamin C Start: 06-13-2023 take 1 [...] MORNING 90 tablet 1 09/19/2023 Active Start: 05-01-2021 End: 06-27-2023 take 1 tablet by mouth in the morning atorvastatin (LIPITOR) 20 mg tablet Take 1 tablet (20 mg total) by mouth in the morning. 05/01/2021 Active Benadryl Allergy 25 MG (1 source) Start: 09-23-2021 take 1 capsule by mouth once daily at bedtime as needed Benadryl Allergy 25 MG 1 capsule at bedtime as needed Orally Once a day for 30 day(s) As needed for rash and itching Aug, Active calcium carbonate 1500 mg / cholecalciferol 800 unt oral tablet (6 sources) Vitamin D Start: 06-13-2023 take 1 tablet by mouth twice daily Calcium Carbonate-Vitamin D3 Active 1 TAB PO Twice daily June 13, 2023 12:00am take 1 tablet by fidel th once in the morning calcium carbonate-vitamin D3 (OSCAL 500 + D) 500 mg(1,250mg) -200 units per tablet Take 1 tablet by mouth in the morning and 1 tablet in the evening. Take with meals. Active Calcium Carbonate / Vitamin D (20 sources) Calcium Carbonat e-Vitamin D (CALTRATE 600+D PO) Caltrate 600+D Active [...] tablet (20 sources) Histamine-1 Receptor Antagonist Start: 08-18-2016 take 1 tablet by mouth once daily cetirizine (ZyrTEC) 10 mg tablet TAKE 1 TABLET ONCE A DAY ORALLY 90 DAYS 4 08/18/2016 Active cholecalciferol 0.05 mg oral capsule (20 sources) Vitamin D Start: 06-13-2023 take 50 ug by mouth once daily Cholecalciferol (Vitamin D3) Active 50 MCG PO Daily June 13, 2023 12:00am cholecalciferol (Vitamin D-3) 50 MCG (1999 UT) tablet Vitamin D3 Active take 1 capsule by mouth in the m orning cholecalciferol, vitamin D3, 2,000 units capsule Take 1 capsule (2,000 Units total) by mouth in the morning. Active cholecalciferol (Vitamin D-3) 50 MCG (1999 UT) tablet Vitamin D3 0 Active take 1 capsule by mo uth every twenty-four hours Vitamin D 50 MCG (1999 UT) 1 capsule Ora lly Once a day for 30 day(s) Active dapagliflozin 5 mg oral tablet (20 sources) Sodium-Glucose Cotransporter 2 Inhibitor Start: 12-21-2021 End: 09-22-2023 take 1 tablet by mouth in the morning FARXIGA 5 mg tablet Take 1 tablet (5 mg total) by mouth in the morning. 12/21/2021 Active docosahexaenoic acid 120 mg / eicosapentaenoic acid 180 mg oral capsule (20 sources) Start: 06-13-2023 fish oil-omega-3 fatty acids 1000 MG capsule Twice daily 06/13/2023 Active omega-3 (fish oi l) 1000 MG capsule 1 capsule 1 (one) time each day at the same time. 0 Active DOCOSAHEXANOIC ACID/EPA (FISH OIL ORAL) (3 sources) DOCOSAHEXANOIC ACID/EPA (FISH OIL ORAL) Take by mouth daily. Active DULoxetine 30 mg delayed release oral capsule (20 sources) Serotonin and Norepinephrine Reuptake Inhibitor Start: End: take 1 capsule by mouth once daily DULoxetine (Cymbalta) [address] capsule Indications: Fibromyalgia , 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 elsewhere (CMS/HCC) , ODALYS (generalized anxiety disorder) (CMS/[facility]) Take 1 capsule (30 mg) by mouth Daily Do not crush or chew. 90 capsule 11/28/2023 02/26/2024 Active ferrous sulfate 325 mg oral tablet (20 sources) Start: End: take 1 tablet by mouth in the morning ferrous sulfate 325 (65 FE) mg tablet Take 1 tablet (325 mg total) by mouth in the morning. 05/27/2021 Active take 1 tablet by mouth every [...] Start: 12-14-2021 take 1 tablet by fidel once daily Finerenone 10 MG 1 tablet Orally Once a day for 90 days Nov, Active Start: 12-14-2021 take 1 tablet by fidel once daily Finerenone 10 MG 1 tablet Orally Once a day for 90 day(s) Nov, Active Start: 12-14-2021 take 1 tablet by fidel once daily Finerenone 10 MG 1 tablet [...] 1 tablet Orally Once a day Active fluticasone propionate 0.05 mg/actuat metered dose nasal spray (3 sources) Corticosteroid fluticasone (NATASHA NASE) 50 mcg/actuation nasal spray Administer 1 spray into each nostril as needed. Active gabapentin 100 mg oral capsule (20 sources) Anti-epileptic Agent Start: 09-25-19 17 End: 12-27-19 24 take 1 capsule by mouth once daily gabapentin (Neurontin) 100 MG capsule Indications: Type 2 diabetes mellitus with diabetic neuropathy, unspecified (CMS/HCC) Take 1 capsule (100 mg) by mouth Daily 90 capsule 1 09/28/2023 12/27/2023 Active Gabapentin Activ e kerendia 10 mg tablet (1 source) take 1 tablet by mouth once daily Kerendia 10 MG TAKE 1 TABLET BY MOUTH EVERY DAY for 90 Active Kerendia 10 MG tablet (2 sources) take 1 tablet by mouth in the morning Kerendia 10 MG tablet Take 10 mg by mouth in the morning. 0 Active KERENDIA 10 mg tablet (3 sources) Start: 2 take 1 tablet by mouth in the morning KERENDIA 10 mg tablet Take 1 tablet by mouth in the morning. 01/18/2022 Active latanoprost 0.05 mg/ml ophthalmic solution (20 sources) Prostaglandin Analog Start: take 1 drop(s) into the eye(s) once daily in the evening Latanoprost Active 1 DROPS OPHTHALMIC Daily June 13, 2023 12:00am Free[employer]Si drop into affected eye in the evening Ophthalmic Once a day; Note: Source Status: Taking; Provider: Sadaf eLbron ( ) Start: 07-20-2022 take 1 drop(s) into the eye(s) once daily in the evening latanoprost (Xalatan) 0.005 % ophthalmic solution INSTILL 1 DROP INTO BOTH EYES EVERY EVENING DIRECTED 07/20/2022 Active take 1 drop(s) into the eye(s) once daily latanoprost (XALATAN) 0.005 % ophthalmic solution Administer 1 drop to both eyes nightly. Active take 1 drop(s) into the eye(s) once daily in the evening Latanoprost 0.005 % 1 drop into affected eye in the evening Ophthalmic Once a day Active losartan potassium 100 mg oral tablet (20 sources) Angiotensin 2 Receptor Leti Start: 07-05-2021 End: 04-10-2024 take 1 tablet by mouth in the morning losartan (Cozaar) 100 MG tablet Indications: Essential (primary) hypertension (CMS/HCC) Take 1 tablet (100 mg) by mouth in the morning. 90 tablet 1 09/28/2023 12/27/2023 Active Magnesium (20 sources) magnesium 250 MG tablet 1 (one) time each day at the same time. Active magnesium 250 MG tablet 1 (one) time each day at the same time. 0 Active take 1 tablet by mouth once michael y Magnesium 250 MG 1 tablet with a meal Orally Once a day Active magnesium carbonate 250 mg oral capsule (3 sources) take 250 mg by mouth once daily MAGNESIUM CARBONATE ORAL Take 250 mg by mouth daily. Active magnesium oxide 250 mg oral tablet (3 sources) Start: 06-13-2023 take 250 mg by mouth once daily Magnesium Oxide Active 250 MG PO Daily June 13, 2023 12:00am melatonin 10 mg oral tablet (20 sources) Start: 06-13-2023 take 20 mg by mouth once daily at bedtime Melatonin Active 20 MG PO Daily at bedtime June 13, 2023 12:00am melatonin tablet Take by mouth at bedtime. Active melatonin tablet Take by mouth nightly. Active Melatonin 10 MG as directed Orally Active Melatonin 10 MG as directed Orally Active Melatonin + L-Theanine - (7 sources) Melatonin + L-Theanine - as directed Orally Active meloxicam 15 mg oral tablet (20 sources) Nonsteroidal Anti-inflammatory Drug Start: 017 End: 025 take 1 tablet by mouth once daily meloxicam (Mobic) 15 MG tablet Take 15 mg by mouth Daily 09/19/2023 Active 24 hr metFORMIN hydrochloride 500 mg extended release oral tablet (11 sources) Biguanide take 1 tablet by mouth every twenty-four hours metFORMIN HCl ER 500 MG 1 tablet Orally Daily Active methylPREDNISolone 4 mg oral tablet (1 source) Corticosteroid Start: 022 Medrol 4 MG as directed Orally as directed for 6 days Aug, Active Multiple Vitamins-Minerals (One Daily For Women 50+ Adv) tablet (20 sources) take 1 tablet by mouth once daily Multiple Vitamins-Minerals (One Daily For Women 50+ Adv) tablet as directed Orally Active take 1 tablet by mouth once michael y Multiple Vitamins-Minerals (One Daily For Women 50+ Adv) tablet as directed Orally 0 Active tbegoyms-mcsy-ON-calcium &mins (THERAGRAN-M) 9 mg iron-400 mcg tablet (3 sources) bourbbvt-jdtv-BJ -calcium &mins (THERAGRAN-M) 9 mg iron-400 mcg tablet Take 1 tablet by mouth in the morning. Active Multivitamin (One Daily Essential) tablet (3 sources) Star t: 05-29 take 1 tablet by mouth once daily Multivitamin (One Daily Essential) tablet Active 1 TAB PO Daily June 13, 2023 12:00am [place] 3 1000 MG (20 sources) take 1 capsule by mouth once daily [place] 3 1000 MG 1 capsule Orally Once a day Active [place]-3 Fatty Acids (3 sources) Star t: 05-29 24 take 1000 mg by mouth twice daily [place]-3 Fatty Acids Active 1000 MG PO Twice daily June 13, 2023 12:00am omeprazole 20 mg delayed release oral capsule (20 sources) Proton Pump Inhibitor Star t: 07-29 End: 03-01 take 1 capsule by mouth before mealtime omeprazole (PriLOSEC) [address] capsule Indications: Gastro-esophageal reflux disease without esophagitis , Esophageal reflux Take 1 capsule (20 mg) by mouth in the morning. Take before meals. 90 capsule 1 07/01/2023 Active One Daily For Women 50+ Adv - (20 sources) One Daily For Wo men 50+ Adv - as directed Orally Active sertraline 50 mg oral tablet (20 sources) Serotonin Reuptake Inhibitor Star t: 05-29 End: 11-28 take 1 tablet by mouth in the morning sertraline (Zoloft) 50 MG tablet Indications: Depression, unspecified (CMS/HCC) Take 1 tablet (50 mg) by mouth in the morning. 90 tablet 1 08/19/2023 Active Start: 02-27-2023 End: 05-28-2023 take 1 [...] 30 day(s) Active Vitamin D 50 MCG (1999 UT) (19 sources) take 1 capsule by mouth once daily Vitamin D 50 MCG (1999 UT) 1 capsule Orally Once a day for 30 day(s) Active Completed/Discontinued Medications Medication Drug Class(es) Dates Sig (Normalized) Sig (Original) Finerenone (6 sources) Start: 05-11-2023 End: 06-14-2023 take 10 mg by mouth once daily Finerenone Discontinued 10 MG PO Daily 90 May 11, 2023 5:55pm June 14, 2023 4:23pm Start: 05-11-2023 take 10 mg by mouth once daily Finerenone Active 10 MG PO Daily 90 May 11, 2023 5:55pm Start: 05-11-2023 [...] MG/DOSE 0.5mg sq Subcutaneous once weekly Active [facility] - (2 sources) [facility] - as directed Orally Not-Taking [facility] - as directed Orally Active Problems Active Problems Problem Classification Problem Date Documented Date Episodic/Chronic Administrative/socia l admission (9 sources) Dietary counseling and surveillance; Translations: [Patient encounter status] Onset: 1 Resolved: 2 Episodic Anxiety disorders (20 sources) Generalized anxiety disorder; Translations: [Generalized anxiety disorder] Onset: 4 11-28-2023 Chronic Cancer of ovary (20 sources) Malignant tumor of ovary; 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] Onset: 5 Resolved: 4 02-07-2023 Chronic Cataract (20 sources) Cataract; Translations: [Unspecified cataract] Onset: 2 02-07-2023 Chronic Chronic kidney disease (20 sources) Chronic kidney disease stage 3; Translations: [Chronic kidney disease, stage 3 (moderate)] Onset: 3 02-07-2023 Chronic Chronic kidney disease (20 sources) Chronic kidney disease; Translations: [Chronic kidney disease, stage III (moderate)] Onset: 1 Resolved: 2 Deficiency and other anemia (20 sources) Anemia of renal disease; Translations: [Anemia in chronic kidney disease] Chronic Diabetes mellitus with complications (20 sources) Disorder of kidney due to diabetes mellitus; Translations: [Type 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] Onset: 1 Resolved: 2 Chronic Diabetes mellitus without complication (20 sources) Type 2 diabetes mellitus without complications; Translations: [Type 2 diabetes mellitus without complication] Onset: 8 06-20-2023 Chronic Diabetes mellitus without complication (1 source) Diabetes mellitus without complication; Translations: [Type 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] Onset: 4 Disorders of lipid metabolism (20 sources) Hyperlipidemia; Translations: [Hyperlipidemia, unspecified] Onset: 7 Resolved: 2 Chronic Esophageal disorders (20 sources) Gastroesophageal reflux disease; Translations: [Gastro-esophageal reflux [...] disease] Onset: 1 Resolved: 2 Chronic Mycoses (2 sources) Onychomycosis due to dermatophyte ; Translations: [Tinea unguium] 02-14-2024 Episodic Nutritional deficiencies (20 sources) Vitamin D deficiency; Translations: [Vitamin D deficiency, unspecified] Onset: 4 06-13-2023 Chronic Osteoarthritis (20 sources) Arthritis; Translations: [Unspecified osteoarthritis, unspecified site] Onset: 3 02-07-2023 Chronic Osteoporosis (20 sources) Senile osteoporosis; Translations: [Age-related osteoporosis without current pathological fracture] Onset: 3 02-18-2023 Chronic Other aftercare (4 sources) Aftercare following joint replacement surgery; Translations: [AFTERCARE FOLLOWING JOINT REPLACEMENT SURGERY] Onset: 7 Chronic Other connective tissue disease (1 source) Presence of artificial knee joint, bilateral; Translations: [PRESENCE OF ARTIFICIAL KNEE JOINT, BILATERAL] Onset: 7 Chronic Other connective tissue disease (4 sources) Pain in toe; Translations: [Pain in right toe(s)] 04-13-2023 Episodic Other connective tissue disease (1 source) Rotator cuff arthropathy of right shoulder; Translations: [Unspecified rotator cuff tear or rupture of right shoulder, not specified as traumatic] 01-19-2024 Episodic Other diseases of kidney and ureters (3 sources) Secondary hyperparathyroidism of renal origin; Translations: [Secondary hyperparathyroidism (of renal origin)] Onset: 2 06-13-2023 Chronic Other diseases of kidney and ureters (20 sources) Hyperparathyroidism due to renal insufficiency; Translations: [Secondary hyperparathyroidism of renal origin] Onset: 4 09-26-2023 Chronic Other nervous system disorders (20 sources) Polyneuropathy associated with another disorder; 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] Onset: 3 Resolved: 4 02-07-2023 Chronic Other non-traumatic joint disorders (1 source) Arthropathy; Translations: [Arthropathy, unspecified] 12-15-2023 Chronic Other non-traumatic joint disorders (20 sources) Stiffness of right shoulder; Translations: [Stiffness [...] nutritional; endocrine; and metabolic disorders (20 sources) Hypomagnesemia; Translations: [Hypomagnesemia] Onset: 4 06-13-2023 Chronic Other nutritional; endocrine; and metabolic disorders (6 sources) Hypomagnesemia; Translations: [Disorders of magnesium metabolism] Onset: 3 Chronic Other nutritional; endocrine; and metabolic disorders (20 sources) Severe obesity; Translations: [Morbid (severe) obesity due to excess calories] Onset: 2 02-07-2023 Chronic Other nutritional; endocrine; and metabolic disorders (2 sources) Body mass index 30+ - obesity; Translations: [Body mass index (BMI) 34.0-34.9, adult] 10-04-2023 Chronic Other nutritional; endocrine; and metabolic disorders (1 source) Body mass index (BMI) 34.0-34.9, adult; Translations: [Body Mass Index 34.0-34.9, adult] 10-04-2023 Chronic Other nutritional; endocrine; and metabolic disorders (3 sources) Obesity; Translations: [Obesity, unspecified] Onset: 2 07-07-2021 Chronic Other screening for suspected conditions (not mental disorders or infectious disease) (20 sources) Encounter for screening mammogram for malignant neoplasm of breast; Translations: [Patient encounter status] Onset: 2 Episodic Other skin disorders (2 sources) Dystrophia unguium; Translations: [Nail dystrophy] 04-13-2023 Episodic Other upper respiratory infections (4 sources) Acute pansinusitis; Translations: [Acute pansinusitis, unspecified] Onset: 4 02-06-2024 Episodic Residual codes; unclassified (1 source) Pain, unspecified; Translations: [Pain, unspecified] Onset: 4 Episodic Unclassified (2 sources) Unknown / UNK(Unknown) Onset: 7 Unclassified (1 source) CHRN KIDNEY DISEASE STG 3 UNSP; Translations: [CHRN KIDNEY DISEASE STG 3 UNSP] Onset: 3 Unclassified (1 source) Right rotator cuff tear Onset: 4 Unclassified (1 source) Establish Care Onset: 4 Past or Other Problems Problem Classification Problem Date Documented Date Episodic/Chronic Allergic reactions (1 source) Urticaria, unspecified Onset: 2 Resolved: 2 Episodic Immunizations and screening for infectious disease (1 source) Encounter for immunization; Translations: [Encounter for immunization Z23] Onset: 1 Resolved: 1 Episodic Mood disorders (20 sources) Mood disorders Onset: 4 03-28-2023 Nutritional deficiencies (20 sources) Deficiency of other specified B group vitamins; Translations: [Iron deficiency] Onset: 1 Resolved: 2 Episodic Other connective tissue disease (20 sources) Fibromyalgia; Translations: [Fibromyalgia] Onset: 3 02-07-2023 Episodic Other diseases of kidney and ureters (20 sources) Secondary hyperparathyroidism; Translations: [Secondary hyperparathyroidism of renal origin] Onset: 4 Resolved: 4 06-13-2023 Chronic Other gastrointestinal disorders (4 sources) Diarrhea, unspecified; Translations: [DIARRHEA UNSPECIFIED] Onset: 2 Episodic Other non-traumatic joint disorders (20 sources) Pain in right shoulder; Translations: [Pain in joint, shoulder region] Onset: 4 06-20-2023 Episodic Residual codes; unclassified (1 source) Family [...] ORGN] Onset: 2 Episodic Residual codes; unclassified (20 sources) Menopause present; Translations: [Asymptomatic menopausal state] Onset: 3 02-07-2023 Episodic Spondylosis; intervertebral disc disorders; other back problems (20 sources) Backache; Translations: [Dorsalgia, unspecified] Onset: 7 02-07-2023 Episodic Results Test Name Value Interpretation Reference Range Facility Lipid Panelon 02-10-2024 Cholesterol [Mass/Vol] 144 mg/dL Normal 140-200 [facility] Comment on above: Result Comment: Chol less than 200 mg/dl low risk Chol 201-239 mg/dl borderline risk Chol 240 mg/dl and greater high risk Performed By: #### L IPID #### [facility] [address] [id number] [facility] Cholesterol in HDL [Mass/Vol] 54 mg/dL Normal 23-92 [facility] Comment on above: Result Comment: HDL CHOL ATP-III CLASSIFICATION Cardiovascular Risk HDL > or equal to 60 mg/dL LOW HDL < 40 mg/dL HIGH Performed By: #### L IPID #### [facility] [address] Cholesterol.total/Ch olesterol in HDL [Mass ratio] 2.7 {ratio} Normal <5.0 [facility] Comment on above: Result Comment: PERF ORMED BY: [place] [address] PATHOLOGIST SPECIAL DUTY NURSE NAGA MURILLO M.D. Performed By: #### L IPID #### [facility] [address] [id number] [facility] LDL Cholesterol,Calculat ed 54 mg/dL Normal 0-100 [facility] Comment on above: Result Comment: LDL ATP III CLASSIFICATION LDL less than 100 mg/dL Optimal LDL 100-129 mg/dL Near or above optimal LDL 130-159 mg/dL Borderline high LDL 160-189 mg/dL High LDL greater than 189 mg/dL Very high Performed By: #### L IPID #### [facility] [address] Triglyceride w/Reflex 182 mg/dL High 0-149 [facility] Comment on above: Result Comment: TRIG ATP III CLASSIFICATION TRIG less than 150 mg/dL Normal TRIG 150-199 mg/dL Borderline high TRIG 200-500 mg/dL High TRIG greater than 500 mg/dL Very high Standard traceable to the Center for Disease Conrtrol and Prevention (CDC) test method. Performed By: #### L IPID #### [facility] [address] VLDL CHOLESTEROL 36 mg/dL Normal [facility] Comment on above: Performed By: #### L IPID #### [facility] [address] Erythrocyte distribution wid th Auto (RBC) [Ratio]on 12-06-2023 Erythrocyte distribution width (RBC) [Ratio] 12.4 % 11.0-15.0 [facility] Estimated glomerular filtrat ion rate (GFR) non- Americanon 12-06-2023 GFR/1.73 sq M.predicted among non-blacks MDRD (S/P/Bld) [Vol rate/Area] 47 mL/min/{1.73_m2} Low >=60 mL/min/1.73m 2 [facility] CBC WITH PLATELET NO DI FFERENTIALon 12-06-2023 Erythrocyte distribution width (RBC) [Ratio] 12.4 % 11.0 - 15.0 % [facility] Hematocrit (Bld) [Volume fraction] 40.9 % 36.0 - 48.0 % [facility] (Bld) [Mass/Vol] 13.2 g/dL 12.0 - 16.0 g/dL [facility] Interpretation and review of laboratory results Abnormal [facility] MCH (RBC) [Entitic mass] 29.9 pg 26.7 - 34.0 pg [facility] MCHC (RBC) [Mass/Vol] 32.3 g/dL 29.9 - 35.2 g/dL [facility] MCV (RBC) [Entitic vol] 92.7 fL 81.0 - 99.0 fL [facility] Platelet mean volume (Bld) [Entitic vol] 8.9 fL Low 9.5 - 13.5 fL [facility] are [facility] [address] [facility] RBC 4.41 [facility] TBH WBC 5.1 [facility] e [facility] e Hematocrit Auto (Bld) [Volum e fraction]on 12-06-2023 Hematocrit (Bld) [Volume fraction] 40.9 % 36.0-48.0 [facility] Hemoglobin [Mass/volume] in Bloodon 12-06-2023 Hemoglobin (Bld) [Mass/Vol] 13.2 g/dL 12.0-16.0 [facility] Iron binding capacity [Mass/ volume] in Serum or Plasmaon 12-06-2023 Iron binding capacity [Mass/Vol] 259.0 ug/dL 250.0-450.0 [facility] Iron saturation [Mass Fracti on] in Serum or Plasmaon 12-06-2023 Iron saturation [Mass fraction] 15.1 % [facility] Laboratory - Chemistry and C hemistry - challengeon 12-06-2023 Albumin [Mass/Vol] 3.6 g/dL 3.4-5.0 [facility] Calcium [Mass/Vol] 9.0 mg/dL 8.5-10.1 [facility] Chloride [Moles/Vol] 101 mmol/L 98-107 [facility] CO2 [Moles/Vol] 27.0 mmol/L 21.0-32.0 [facility] Creatinine [Mass/Vol] 1.13 mg/dL High 0.55-1.02 [facility] Ferritin [Mass/Vol] 131.0 ng/mL 8.0-252.0 [facility] GFR/1.73 sq M.predicted MDRD (S/P/Bld) [Vol rate/Area] 57 mL/min/{1.73_m2} Low >=60 mL/min/1.73m 2 [facility] Glucose [Mass/Vol] 99 mg/dL 74-106 [facility] Iron [Mass/Vol] 39.0 ug/dL Low 50.0-170.0 [facility] Magnesium [Mass/Vol] 1.9 mg/dL 1.8-2.4 [facility] Potassium [Moles/Vol] 4.0 mmol/L 3.5-5.1 [facility] Sodium [Moles/Vol] 137 mmol/L 136-145 [facility] Urate [Mass/Vol] 4.2 mg/dL 2.6-6.0 [facility] Urea nitrogen [Mass/Vol] 24.0 mg/dL High 7.0-18.0 [facility] Urea nitrogen/Creatinine [Mass ratio] 21.2 mg/mg [facility] Bilirubin Ql (U) Negative NEGATIVE [facility] Glucose (U) [Mass/Vol] 250 mg/dL Abnormal NEGATIVE [facility] Ketones Ql (U) Negative NEGATIVE [facility] pH (U) 6.0 [pH] 5.0-9.0 [facility] Specific gravity (U) [Rel density] 1.010 1.005-1.025 [facility] Urobilinogen Qn (U) 0.2 {Wil'U}/dL 0.2-1.0 [facility] Laboratory - Specimen inform ationon 12-06-2023 Appearance (U) CLEAR CLEAR [facility] Color (U) LT. YELLOW YELLOW [facility] Laboratory - Urinalysison Leukocyte esterase Test strip Ql (U) Negative NEGATIVE [facility] Mucus Ql (Urine sed) NONE SEEN NONE SEEN [facility] Nitrite Ql (U) Negative NEGATIVE [facility] Protein (U) [Mass/Vol] 6.0 mg/dL <=11.9 [facility] Protein Ql (U) Negative NEG/TRACE [facility] Leukocytes [#/volume] correc sigifredo for nucleated erythrocytes in Blood by Automated counon 12-06-2023 WBC corrected for nucl RBC Auto (Bld) [#/Vol] 5.1 10 3/uL 4.0-11.0 [facility] MCH Auto (RBC) [Entitic mass ]on 12-06-2023 MCH (RBC) [Entitic mass] 29.9 pg 26.7-34.0 [facility] MCHC Auto (RBC) [Mass/Vol]on 12-06-2023 MCHC (RBC) [Mass/Vol] 32.3 g/dL 29.9-35.2 [facility] MCV Auto (RBC) [Entitic vol] on 12-06-2023 MCV (RBC) [Entitic vol] 92.7 fL 81.0-99.0 [facility] No Panel Informationon 12-05 25-Hydroxy Vitamin D Total 48.2 ng/mL [facility] Comment on above: <20 ng/mL Vit D defi cient20-<30 ng/mL Vit D [id number] ng/mL Vit D sufficient>100 ng/mL Potential Toxicity Parathyroid Hormone (Intact) 38 pg/mL 15-65 [facility] Comment on above: Performed at: [facility] [address] [place] [id number] Director: Remy Sanchez PhD, Phone: [phone] Phosphorus Level 4.6 mg/dL 2.6-4.7 [facility] Urine Bacteria NONE SEEN #/HPF NONE SEEN [facility] Urine Occult Blood Negative NEGATIVE [facility] Urine Other Casts NONE SEEN #/LPF NONE SEEN [facility] Urine Other Crystals None Seen #/HPF None Seen [facility] Urine Random Creatinine 48.03 mg/dL 20.00-300.00 [facility] Urine RBC 0-2 #/HPF 0-2 [facility] Urine Squamous Epithelial Cells RARE #/LPF NONE/RARE [facility] Urine WBC 0-2 #/HPF Abnormal NONE SEEN [facility] Platelet mean volume Auto (B ld) [Entitic vol]on 12-06-2023 Platelet mean volume (Bld) [Entitic vol] 8.9 fL Low 9.5-13.5 [facility] Platelets Auto (Bld) [#/Vol] on 12-06-2023 Platelets (Bld) [#/Vol] 162 10 3/uL 150-450 [facility] RBC Auto (Bld) [#/Vol]on RBC (Bld) [#/Vol] 4.41 10 6/uL 4.20-5.40 [facility] Serum or plasma anion gap de terminationon 12-06-2023 Anion gap [Moles/Vol] 13.0 mmol/L [facility] Urine protein/creatinine rat ioon 12-06-2023 Protein/Creatinine (U) [Ratio] 0.12 [facility] HbA1c HPLC (Bld) [Mass fract ion]on 10-04-2023 HbA1c (Bld) [Mass fraction] 5.5 % [facility] No Panel Informationon 10-03 Bedside Glucose 106 [facility] BASIC METABOLIC PANLon 09-26 Anion gap [Moles/Vol] 11 mmol/L Normal 5-15 [facility] Comment on above: Performed By: #### P INR, BMP #### [facility] ([id number]) [address], [address] [place] [address] Calcium [Mass/Vol] 8.9 mg/dL Normal 8.5-10.5 [facility] Comment on above: Performed By: #### P INR, BMP #### [facility] ([id number]) [address], [address] [place] [address] Chloride [Moles/Vol] 103 mmol/L Normal 98-109 [facility] Comment on above: Performed By: #### P INR, BMP #### [facility] ([id number]) [address], [address] [place] [address] CO2 [Moles/Vol] 26 mmol/L Normal 22-32 [facility] Comment on above: Performed By: #### P INR, BMP #### [facility] ([id number]) [address] [address] [place] [address] Creatinine [Mass/Vol] 1.04 mg/dL High 0.40-1.00 [facility] Comment on above: Result Comment: METH OD TRACEABLE TO IDMS STANDARD Performed By: #### P INR, BMP #### [facility] ([id number]) [address], [address] [place] [address] GFR/1.73 sq M.predicted among non-blacks MDRD (S/P/Bld) [Vol rate/Area] 56 mL/min/{1.73_m2} Low >59 [facility] Comment on above: Result Comment: Reported eGFR is based on the CKD-EPI 2020 equation that does not use a race coefficient. Performed By: #### P INR, BMP #### [facility] ([id number]) [address], [address] [place] [address] Glucose [Mass/Vol] 120 mg/dL High 65-99 [facility] Comment on above: Performed By: #### P INR, BMP #### [facility] ([id number]) [address] [address] [place] [address] Potassium [Moles/Vol] 4.0 mmol/L Normal 3.5-5.0 [facility] Comment on above: Performed By: #### P INR, BMP #### [facility] ([id number]) [address], [address] [place] [address] Sodium [Moles/Vol] 140 mmol/L Normal 134-146 [facility] Comment on above: Performed By: #### P INR, BMP #### [facility] ([id number]) [address] [address] [place] [address] Urea nitrogen [Mass/Vol] 23 mg/dL Normal 5-27 [facility] Comment on above: Performed By: #### P INR, BMP #### [facility] ([id number]) [address] [address] [place] [address] PROTIME AND INRon 09-27-2023 INR Coag (PPP) [Relative time] 1.0 {INR} Normal 0.8-1.1 [facility] Comment on above: Performed By: #### P INR, BMP #### [facility] ([id number]) [address] [address] [place] [address] PT Coag (PPP) [Time] 11.8 s Normal 9.8-13.2 [facility] Comment on above: Performed By: #### P INR, BMP #### [facility] ([id number]) [address] [place] [address] MR SHOULDER RIGHT WO IV CONT Lyndon 09-14-2023 MR SHOULDER RIGHT WO IV CONTRAST [...] Comment: MRI R T shoulder w/o at [place]. Orbits if needed. Automated epithelial cells c ount in urine sediment (number/area)on 06-07-2023 Epithelial cells Auto (Urine sed) [#/Area] RARE #/LPF NONE/RARE [facility] Automated leukocytes count i n urine sediment (number/area)on 06-07-2023 WBC Auto (Urine sed) [#/Area] NONE SEEN #/HPF 0-2 [facility] Automated urine specific gra vity by refractometryon 06-07-2023 Specific gravity Refractometry automated (U) [Rel density] 1.020 1.005-1.025 [facility] Bilirubin Auto test strip (U ) [Mass/Vol]on 06-07-2023 Bilirubin (U) [Mass/Vol] Negative NEGATIVE [facility] Casts typing in urine sedime nt by light microscopyon 06-07-2023 Casts LM Nom (Urine sed) NONE SEEN #/LPF NONE SEEN [facility] Color Auto (U)on 06-07-2023 Color (U) LT. YELLOW YELLOW [facility] Erythrocyte distribution wid th Auto (RBC) [Ratio]on 06-07-2023 Erythrocyte distribution width (RBC) [Ratio] 12.8 % 11.0-15.0 [facility] Estimated glomerular filtrat ion rate (GFR) non- Americanon 06-07-2023 GFR/1.73 sq M.predicted among non-blacks MDRD (S/P/Bld) [Vol rate/Area] 50 mL/min/{1.73_m2} >=60 [facility] Hematocrit Auto (Bld) [Volum e fraction]on 06-07-2023 Hematocrit (Bld) [Volume fraction] 40.7 % 36.0-48.0 [facility] Hemoglobin [Mass/volume] in Bloodon 06-07-2023 Hemoglobin (Bld) [Mass/Vol] 13.0 g/dL 12.0-16.0 [facility] Ketones Auto test strip (U) [Mass/Vol]on 06-07-2023 Ketones (U) [Mass/Vol] Negative NEGATIVE [facility] Laboratory - Chemistry and C hemistry - challengeon 06-07-2023 Albumin [Mass/Vol] 3.5 g/dL 3.4-5.0 [facility] Calcium [Mass/Vol] 8.9 mg/dL 8.5-10.1 [facility] Chloride [Moles/Vol] 103 mmol/L 98-107 [facility] CO2 [Moles/Vol] 27.6 mmol/L 21.0-32.0 [facility] Creatinine [Mass/Vol] 1.07 mg/dL 0.55-1.02 [facility] GFR/1.73 sq M.predicted MDRD (S/P/Bld) [Vol rate/Area] mL/min/{1.73_m2} >=60 [facility] Glucose [Mass/Vol] 96 mg/dL 74-106 [facility] Magnesium [Mass/Vol] 2.0 mg/dL 1.8-2.4 [facility] Potassium [Moles/Vol] 3.9 mmol/L 3.5-5.1 [facility] Sodium [Moles/Vol] 140 mmol/L 136-145 [facility] Urate [Mass/Vol] 3.9 mg/dL 2.6-6.0 [facility] Urea nitrogen [Mass/Vol] 24.0 mg/dL 7.0-18.0 [facility] Urea nitrogen/Creatinine [Mass ratio] 22.4 mg/mg [facility] Leukocytes [#/volume] correc sigifredo for nucleated erythrocytes in Blood by Automated counon 06-07-2023 WBC corrected for nucl RBC Auto (Bld) [#/Vol] 5.7 10 3/uL 4.0-11.0 [facility] MCH Auto (RBC) [Entitic mass ]on 06-07-2023 MCH (RBC) [Entitic mass] 30.0 pg 26.7-34.0 [facility] MCHC Auto (RBC) [Mass/Vol]on 06-07-2023 MCHC (RBC) [Mass/Vol] 31.9 g/dL 29.9-35.2 [facility] MCV Auto (RBC) [Entitic vol] on 06-07-2023 MCV (RBC) [Entitic vol] 94.0 fL 81.0-99.0 [facility] Mucus LM Ql (Urine sed)on Mucus Ql (Urine sed) NONE SEEN NONE SEEN [facility] No Panel Informationon 06-06 25-Hydroxy Vitamin D Total 42.6 ng/mL [facility] Comment on above: <20 ng/mL Vit D defi cient20-<30 ng/mL Vit D [id number] ng/mL Vit D sufficient>100 ng/mL Potential Toxicity Miscellaneous Test COMMENT . [facility] Comment on above: Test Ordered: [id number] Prot+CreatU (Random)Creatinine, Urine 58.5 mg/dL CB Reference Range: Not Estab.Protein,Total,Urine 7.2 mg/dL CB Reference Range: Not Estab.Protein/Creat Ratio 123 CB Units of Measure: mg/g creat Reference Range: 0-200Performed at: - [facility] [address] [id number] Director: Remy Sanchez PhD, Phone: [phone] Parathyroid Hormone (Intact) 99 pg/mL [facility] Comment on above: Performed at: - [facility] [address] [id number] Director: Remy Sanchez PhD, Phone: [phone] Phosphorus Level 3.8 mg/dL 2.6-4.7 [facility] Platelet mean volume Auto (B ld) [Entitic vol]on 06-07-2023 Platelet mean volume (Bld) [Entitic vol] 8.7 fL 9.5-13.5 [facility] Platelets Auto (Bld) [#/Vol] on 06-07-2023 Platelets (Bld) [#/Vol] 167 10 3/uL 150-450 [facility] Protein Auto test strip (U) [Mass/Vol]on 06-07-2023 Protein (U) [Mass/Vol] Negative NEG/TRACE [facility] RBC Auto (Bld) [#/Vol]on RBC (Bld) [#/Vol] 4.33 10 6/uL 4.20-5.40 [facility] Serum or plasma anion gap de terminationon 06-07-2023 Anion gap [Moles/Vol] 13.3 mmol/L [facility] Specific gravity Auto test s trip (U) [Rel density]on 06-07-2023 Specific gravity (U) [Rel density] CLEAR CLEAR [facility] Urine bacteria detection by automated methodon 06-07-2023 Bacteria Auto Ql (U) TRACE #/HPF NONE SEEN [facility] Urine glucose measurement by test strip (mass/volume)on 06-07-2023 Glucose Test strip (U) [Mass/Vol] 250 mg/dL NEGATIVE [facility] Urine hemoglobin detection b y automated test stripon 06-07-2023 Hemoglobin Auto test strip Ql (U) Negative NEGATIVE [facility] Urine nitrite detection by a utomated test stripon 06-07-2023 Nitrite Auto test strip Ql (U) TRACE NEGATIVE [facility] Nitrite Auto test strip Ql (U) Negative NEGATIVE [facility] Urine sediment crystal ident ification by light microscopyon 06-07-2023 Crystals LM Nom (Urine sed) None Seen #/HPF None Seen [facility] Urine sediment leukocyte cou nt by microscopy (number/high power field)on 06-07-2023 WBC LM.HPF (Urine sed) [#/Area] 0-2 #/HPF NONE SEEN [facility] Urobilinogen Auto test strip (U) [Mass/Vol]on 06-07-2023 Urobilinogen Qn (U) 0.2 {Wil'U}/dL 0.2-1.0 [facility] pH Auto test strip (U)on pH (U) 6.0 [pH] 5.0-9.0 [facility] Lipid 1996 panelon 4 Cholesterol [Mass/Vol] 144 mg/dL Low 150-200 [facility] Comment on above: Performed By: #### 2 4331-1 #### [facility] ([id number]) [address] [place] [address], [address] [place] [address] Cholesterol in HDL [Mass/Vol] 49 mg/dL Normal >39 [facility] Comment on above: Result Comment: HDL <40 mg/dL - High Risk HDL > or = 40mg/dL- Desirable HDL >60 mg/dL - Negative Risk Performed By: #### 2 4331-1 #### [facility] ([id number]) [address] [facility] [address] [place] [address] Cholesterol in LDL [Mass/Vol] 49 mg/dL Normal <130 [facility] Comment on above: Result Comment: LDL <100 mg/dL - Desirable LDL >160 mg/dL - High Risk Performed By: #### 2 4331-1 #### [facility] ([id number]) [address], [facility] [address] [place] [address] Cholesterol in VLDL [Mass/Vol] 46 mg/dL High 0-30 [facility] Comment on above: Performed By: #### 2 4331-1 #### [facility] ([id number]) [address], [address] [place] [address] CHOLESTEROL:HDL 2.9 Normal 1.0-5.0 [facility] Comment on above: Performed By: #### 2 4331-1 #### [facility] ([id number]) [address], [facility] [address] [place] [address] Triglyceride [Mass/Vol] 228 mg/dL High 27-150 [facility] Comment on above: Performed By: #### 2 4331-1 #### [facility] ([id number]) [address], [facility] [address] [place] [address] A1C HEMOGLOBINon 09-29-2022 HbA1c (Bld) [Mass fraction] 6.2 % ethority Other Glucose - FINGER STICKon Glucose [Mass/Vol] 113 mg/dL ethority Other HbA1c (Bld) [Mass fraction]o n 09-29-2022 A1C HEMOGLOBIN [employer] Other PTH INTACTon 06-03-2022 PTH, Intact 38 pg/mL Normal 15-65 [facility] Comment on above: Performed By: #### P THINT #### [facility] [address] [place] [address] Dr. Rizwan Fernando HEMOGRAM AND PLATELon 2022 Hematocrit (Bld) [Volume fraction] 39.5 % Normal 36.0-48.0 [facility] Comment on above: Performed By: #### H H #### [facility] [address] [place] [address] Dr. Rizwan Fernando Hemoglobin (Bld) [Mass/Vol] 12.8 g/dL Normal 12.0-16.0 [facility] Comment on above: Performed By: #### H H #### [facility] [address] [place] [address] Dr. Rizwan Fernando MCH (RBC) [Entitic mass] 28.9 pg Normal 26.7-34.0 [facility] Comment on above: Performed By: #### H H #### [facility] [address] [place] [address] Dr. Rizwan Fernando MCHC (RBC) [Mass/Vol] 32.4 g/dL Normal 29.9-35.2 [facility] Comment on above: Performed By: #### H H #### [facility] [address] [place] [address] Dr. Rizwan Fernando MCV (RBC) [Entitic vol] 89.2 fL Normal 81.0-99.0 [facility] Comment on above: Performed By: #### H H #### [facility] [address] [place] [address] Dr. Rizwan Fernando PLT 202 103/ul Normal 150-450 [facility] Comment on above: Performed By: #### H H #### [facility] [address] [place] [address] Dr. Rizwan Fernando RBC 4.43 106/ul Normal 4.20-5.40 [facility] Comment on above: Performed By: #### H H #### [facility] [address] [place] [address] Dr. Rizwan Fernando WBC 6.2 103/ul Normal 4.0-11.0 [facility] Comment on above: Performed By: #### H H #### [facility] [address] [place] [address] Dr. Rizwan Fernando IRON AND TIBCon 06-02-2022 % SATURATION 23.2 % Normal [facility] Comment on above: Performed By: #### R ENAL, MG, URIC #### [facility] [address] [place] [address] Dr. Rizwan Fernando Iron [Mass/Vol] 64.0 ug/dL Normal 50.0-170.0 [facility] Comment on above: Performed By: #### R ENAL, MG, URIC #### [facility] [address] [place] [address] Dr. Rizwan Fernando TIBC DIRECT 276.0 ug/dL Normal 250.0-450.0 [facility] Comment on above: Performed By: #### R ENAL, MG, URIC #### [facility] [address] [place] [address] Dr. Rizwan Fernando MAGNESIUMon 06-02-2022 Magnesium [Mass/Vol] 1.9 mg/dL Normal 1.8-2.4 [facility] Comment on above: Performed By: #### R ENAL, MG, URIC #### [facility] [address] [place] [address] Dr. Rizwan Fernando RENAL FUNCTION PANELon 06-02 Albumin [Mass/Vol] 3.9 g/dL Normal 3.4-5.[address] [facility] Comment on above: Performed By: #### R ENAL, MG, URIC #### [facility] [address] [place] [address] Dr. Rizwan Fernando Calcium [Mass/Vol] 9.2 mg/dL Normal 8.5-10.[address] [facility] Comment on above: Performed By: #### R ENAL, MG, URIC #### [facility] [address] [place] [address] Dr. Rizwan Fernando Chloride [Moles/Vol] 102 mmol/L Normal 98-107 [facility] Comment on above: Performed By: #### R ENAL, MG, URIC #### [facility] [address] [address] [address] Rizwan Fernando CO2 [Moles/Vol] 29.2 mmol/L Normal 21.0-32.0 [facility] Comment on above: Performed By: #### R ENAL, MG, URIC #### [facility] [address] [address] [address] Rizwan Fernando Creatinine [Mass/Vol] 1.05 mg/dL Critically high 0.55-1.02 [facility] Comment on above: Performed By: #### R ENAL, MG, URIC #### [facility] [address] [place] [address] Dr. Rizwan Fernando EGFR-AF ICELANDIC >60 Normal >=[address] [facility] Comment on above: Performed By: #### R ENAL, MG, URIC #### [facility] [address] [place] [address] Dr. Rizwan Fernando EGFR-NON AF ICELANDIC 51 mL/min/1.73m2 Critically low >=60 [facility] Comment on above: Performed By: #### R ENAL, MG, URIC #### [facility] [address] [place] [address] Dr. Rizwan Fernando Glucose [Mass/Vol] 112 mg/dL Critically high 74-106 T [facility] Comment on above: Performed By: #### R ENAL, MG, URIC #### [facility] [address] [place] [address] Dr. Rizwan Fernando Phosphate [Mass/Vol] 4.3 mg/dL Normal 2.6-4.7 [facility] Comment on above: Performed By: #### R ENAL, MG, URIC #### [facility] [address] [place] [address] Dr. Rizwan Fernando Potassium [Moles/Vol] 4.0 mmol/L Normal 3.5-5.1 [facility] Comment on above: Performed By: #### R ENAL, MG, URIC #### [facility] [address] [address] [address] Rizwan Fernando Sodium [Moles/Vol] 139 mmol/L Normal 136-[address] [facility] Comment on above: Performed By: #### R ENAL, MG, URIC #### [facility] [address] [address] [address] Rizwan Fernando Urea nitrogen [Mass/Vol] 24.0 mg/dL Critically high 7.0-18.0 [facility] Comment on above: Performed By: #### R ENAL, MG, URIC #### [facility] [address] [place] [address] Dr. Rizwan Fernando UA RANDOM W/MICROSCOPICon BACTERIA NONE SEEN Normal NONE SEEN [facility] Comment on above: Performed By: #### R ENAL, MG, URIC #### [facility] [address] [place] [address] Dr. Rizwan Fernando Bilirubin Ql (U) Negative Normal NEGATIVE [facility] Comment on above: Performed By: #### R ENAL, MG, URIC #### [facility] [address] [place] [address] Dr. Rizwan Fernando CAST NONE SEEN Normal NONE SEEN [facility] Comment on above: Performed By: #### R ENAL, MG, URIC #### [facility] [address] [place] [address] Dr. Rizwan Fernando Clarity (U) CLEAR Normal CLEAR [facility] Comment on above: Performed By: #### R ENAL, MG, URIC #### [facility] [address] [place] [address] Dr. Rizwan Fernando Color (U) LT. YELLOW Normal YELLOW [facility] Comment on above: Performed By: #### R ENAL, MG, URIC #### [facility] [address] [place] [address] Dr. Rizwan Fernando Crystals LM Nom (Urine sed) NONE SEEN Normal NONE SEEN [facility] Comment on above: Performed By: #### R ENAL, MG, URIC #### [facility] [address] [place] [address] Dr. Rizwan Fernando Epithelial cells LM Ql (Urine sed) NONE SEEN Normal NONE SEEN /RARE [facility] Comment on above: Performed By: #### R ENAL, MG, URIC #### [facility] [address] [address] [address] Rizwan Fernando Glucose Ql (U) 250 mg/dl Abnormal NEGATIVE The [facility] Comment on above: Performed By: #### R ENAL, MG, URIC #### [facility] [address] [address] [address] Rizwan Fernando Hemoglobin Ql (U) Negative Normal NEGATIVE The [facility] Comment on above: Performed By: #### R ENAL, MG, URIC #### [facility] [address] [place] [address] Dr. Rizwan Fernando Ketones Ql (U) Negative Normal NEGATIVE [facility] Comment on above: Performed By: #### R ENAL, MG, URIC #### [facility] [address] [address] [address] Rizwan Fernando LEUKOCYTES TRACE Abnormal NEGATIVE [facility] Comment on above: Performed By: #### R ENAL, MG, URIC #### [facility] [address] [place] [address] Dr. Rizwan Fernando MUCOUS NONE SEEN Normal NONE SEEN [facility] Comment on above: Performed By: #### R ENAL, MG, URIC #### [facility] [address] [place] [address] Dr. Rizwan Fernando Nitrite Ql (U) Negative Normal NEGATIVE [facility] Comment on above: Performed By: #### R ENAL, MG, URIC #### [facility] [address] [place] [address] Dr. Rizwan Fernando pH (U) 6.0 [pH] Normal 5-9 [facility] Comment on above: Performed By: #### R ENAL, MG, URIC #### [facility] [address] [place] [address] Dr. Rizwan Fernando RBC NONE SEEN Abnormal 0-2 [facility] Comment on above: Performed By: #### R ENAL, MG, URIC #### [facility] [address] [address] [address] Rizwan Fernando SPEC GRAVITY 1.015 Normal 1.005-<=1.025 [facility] Comment on above: Performed By: #### R ENAL, MG, URIC #### [facility] [address] [address] [address] Rizwan Fernando UA PROTEIN Negative Normal NEGATIVE/ TRACE [facility] Comment on above: Performed By: #### R ENAL, MG, URIC #### [facility] [address] [address] [address] Rizwan Fernando Urobilinogen Qn (U) 0.2 {Wil'U}/dL Normal 0.2 - 1. 0 [facility] Comment on above: Performed By: #### R ENAL, MG, URIC #### [facility] [address] [place] [address] Dr. Rizwan Fernando WBC 0-2 Abnormal NONE SEEN [facility] Comment on above: Performed By: #### R ENAL, MG, URIC #### [facility] [address] [place] [address] Dr. Rizwan Fernando URIC ACID SERUMon 06-02-2022 Urate [Mass/Vol] 4.3 mg/dL Normal 2.6-6.0 [facility] Comment on above: Performed By: #### R ENAL, MG, URIC #### [facility] [address] [place] [address] Dr. Rizwan Fernando URINE T PROTEIN CREAT RATIOo n 06-02-2022 Protein (U) [Mass/Vol] 12.9 mg/dL Critically high <=12.0 [facility] Comment on above: Performed By: #### U RTPCR #### [facility] [address] [place] [address] Dr. Rizwan Fernando UR PROT CREAT RAT 0.21 Normal The [facility] Comment on above: Performed By: #### U RTPCR #### [facility] [address] [place] [address] Dr. Rizwan Fernando URINE CREAT 62.07 mg/dL Normal 20.00-300.00 [facility] Comment on above: Performed By: #### U RTPCR #### [facility] [address] [address] [address] Rizwan Fernando VITAMIN D 25 OHon 06-02-2022 VIT D 25-OH 42.4 ng/mL Normal [facility] Comment on above: Performed By: #### R ENAL, MG, URIC #### [facility] [address] [place] [address] Dr. Rizwan Fernando VIT D RANGES SEE BELOW Normal [facility] Comment on above: Result Comment: <20 ng/mL Vit D deficient 20 - <30 ng/mL Vit D insufficient 30 - 100 ng/mL Vit D sufficient >100 ng/mL Potential Toxicity Performed By: #### R ENAL, MG, URIC #### [facility] [address] [place] [address] Dr. Rizwan Fernando A1C HEMOGLOBINon 03-31-2022 HbA1c (Bld) [Mass fraction] 5.8 % ethority Other Glucose - FINGER STICKon Glucose [Mass/Vol] 135 mg/dL ethority Other HbA1c (Bld) [Mass fraction]o n 03-31-2022 A1C HEMOGLOBIN [employer] [employer] Other PROF CHEM 8 (BAS METB)on Anion gap [Moles/Vol] 13.7 mmol/L Normal [facility] Comment on above: Performed By: #### R ENAL, MG, URIC #### [facility] [address] [place] [address] Dr. Rizwan Fernando Calcium [Mass/Vol] 9.1 mg/dL Normal 8.5-10.[address] [facility] Comment on above: Performed By: #### R ENAL, MG, URIC #### [facility] [address] [place] [address] Dr. Rizwan Fernando Chloride [Moles/Vol] 103 mmol/L Normal 98-107 [facility] Comment on above: Performed By: #### R ENAL, MG, URIC #### [facility] [address] [place] [address] Dr. Rizwan Fernando CO2 [Moles/Vol] 28.8 mmol/L Normal 21.0-32.0 [facility] Comment on above: Performed By: #### R ENAL, MG, URIC #### [facility] [address] [place] [address] Dr. Rizwan Fernando Creatinine [Mass/Vol] 1.21 mg/dL Critically high 0.55-1.02 [facility] Comment on above: Performed By: #### R ENAL, MG, URIC #### [facility] [address] [place] [address] Dr. Rizwan Fernando EGFR-AF ICELANDIC 53 mL/min/1.73m2 Critically low >=60 [facility] Comment on above: Performed By: #### R ENAL, MG, URIC #### [facility] [address] [place] [address] Dr. Rizwan Fernando EGFR-NON AF ICELANDIC 43 mL/min/1.73m2 Critically low >=60 [facility] Comment on above: Performed By: #### R ENAL, MG, URIC #### [facility] [address] [place] [address] Dr. Rizwan Fernando Glucose [Mass/Vol] 121 mg/dL Critically high 74-106 [facility] Comment on above: Performed By: #### R ENAL, MG, URIC #### [facility] [address] [place] [address] Dr. Rizwan Fernando Potassium [Moles/Vol] 4.5 mmol/L Normal 3.5-5.1 [facility] Comment on above: Performed By: #### R ENAL, MG, URIC #### [facility] [address] [place] [address] Dr. Rizwan Fernando Sodium [Moles/Vol] 141 mmol/L Normal 136-[address] [facility] Comment on above: Performed By: #### R ENAL, MG, URIC #### [facility] [address] [place] [address] Dr. Rizwan Fernando Urea nitrogen [Mass/Vol] 26.0 mg/dL Critically high 7.0-18.0 [facility] Comment on above: Performed By: #### R ENAL, MG, URIC #### [facility] [address] [address] [address] Rizwan Fernando Urea nitrogen/Creatinine [Mass ratio] 21.5 mg/mg Normal [facility] Comment on above: Performed By: #### R ENAL, MG, URIC #### [facility] [address] [address] [address] Rizwan Fernando MG MAMM SCREEN 3D NICOLE CADon 02-05-2022 MG MAMM SCREEN 3D NICOLE CAD Patient: ASHLEY OLSON Exam Date: 02/05/2022 : 1945 Gender:F Ordering : [employer] Admission #: [id number] Family : Order #: [id number] CLICK HERE TO VIEW EXAM RADIOLOGY REPORT [...] liver cancer at age 70. LOCATION: [facility] BREAST COMPOSITION: Scattered areas fibroglandular density. FINDINGS: [...] LUMP SHOULD BE BIOPSIED. Dictated by: Andrés Hancock MD on 02/05/2022 at 09:49 Approved by: Andrés Hancock MD on 02/05/2022 at 09:50 Normal [facility] RENAL FUNCTION PANELon 12-22 Albumin [Mass/Vol] 4.4 g/dL Normal 3.4-5.[address] [facility] Comment on above: Performed By: #### R ENAL, MG, URIC #### [facility] [address] [address] [address] Rizwan Fernando Calcium [Mass/Vol] 9.5 mg/dL Normal 8.5-10.[address] [facility] Comment on above: Performed By: #### R ENAL, MG, URIC #### [facility] [address] [place] [address] Dr. Rizwan Fernando Chloride [Moles/Vol] 102 mmol/L Normal 98-107 [facility] Comment on above: Performed By: #### R ENAL, MG, URIC #### [facility] [address] [place] [address] Dr. Rizwan Fernando CO2 [Moles/Vol] 29.2 mmol/L Normal 21.0-32.0 [facility] Comment on above: Performed By: #### R ENAL, MG, URIC #### [facility] [address] [place] [address] Dr. Rizwan Fernando Creatinine [Mass/Vol] 1.04 mg/dL Critically high 0.55-1.02 [facility] Comment on above: Performed By: #### R ENAL, MG, URIC #### [facility] [address] [place] [address] Dr. Rizwan Fernando EGFR-AF ICELANDIC >60 Normal >=60 [facility] Comment on above: Performed By: #### R ENAL, MG, URIC #### [facility] [address] [place] [address] Dr. Rizwan Fernando EGFR-NON AF ICELANDIC 52 mL/min/1.73m2 Critically low >=60 [facility] Comment on above: Performed By: #### R ENAL, MG, URIC #### [facility] [address] [place] [address] Dr. Rizwan Fernando Glucose [Mass/Vol] 101 mg/dL Normal 74-[address] [facility] Comment on above: Performed By: #### R ENAL, MG, URIC #### [facility] [address] [place] [address] Dr. Rizwan Fernando Phosphate [Mass/Vol] 5.0 mg/dL Critically high 2.6-4.7 [facility] Comment on above: Performed By: #### R ENAL, MG, URIC #### [facility] [address] [address] [address] Rizwan Fernando Potassium [Moles/Vol] 4.1 mmol/L Normal 3.5-5.1 [facility] Comment on above: Performed By: #### R ENAL, MG, URIC #### [facility] [address] [address] [address] Rizwan Fernando Sodium [Moles/Vol] 141 mmol/L Normal 136-[address] [facility] Comment on above: Performed By: #### R ENAL, MG, URIC #### [facility] [address] [place] [address] Dr. Rizwan Fernando Urea nitrogen [Mass/Vol] 24.0 mg/dL Critically high 7.0-18.0 [facility] Comment on above: Performed By: #### R ENAL, MG, URIC #### [facility] [address] [place] [address] Dr. Rizwan Fernando A1C HEMOGLOBINon 12-21-2021 HbA1c (Bld) [Mass fraction] 6.1 % ethority Other Glucose - FINGER STICKon Glucose [Mass/Vol] 137 mg/dL ethority Other HbA1c (Bld) [Mass fraction]o n 12-21-2021 A1C HEMOGLOBIN [facility] [employer] Other PTH INTACTon 12-05-2021 PTH, Intact 26 pg/mL Normal 15-65 [facility] Comment on above: Performed By: #### R ENAL, MG, URIC #### [facility] [address] [place] [address] Dr. Rizwan Fernando FERRITINon 12-04-2021 Ferritin [Mass/Vol] 89.0 ng/mL Normal 8.0-252.0 [facility] Comment on above: Performed By: #### R ENAL, MG, URIC #### [facility] [address] [place] [address] Dr. Rizwan Fernando HEMOGRAM AND PLATELon 2021 Hematocrit (Bld) [Volume fraction] 38.3 % Normal 36.0-48.0 [facility] Comment on above: Performed By: #### R ENAL, MG, URIC #### [facility] [address] [place] [address] Dr. Rizwan Fernando Hemoglobin (Bld) [Mass/Vol] 12.5 g/dL Normal 12.0-16.0 [facility] Comment on above: Performed By: #### R ENAL, MG, URIC #### [facility] [address] [place] [address] Dr. Rizwan Fernando MCH (RBC) [Entitic mass] 28.9 pg Normal 26.7-34.0 [facility] Comment on above: Performed By: #### R ENAL, MG, URIC #### [facility] [address] [place] [address] Dr. Rizwan Fernando MCHC (RBC) [Mass/Vol] 32.6 g/dL Normal 29.9-35.2 [facility] Comment on above: Performed By: #### R ENAL, MG, URIC #### [facility] [address] [place] [address] Dr. Rizwan Fernando MCV (RBC) [Entitic vol] 88.5 fL Normal 81.0-99.0 [facility] Comment on above: Performed By: #### R ENAL, MG, URIC #### [facility] [address] [place] [address] Dr. Rizwan Fernando PLT 188 103/ul Normal 150-450 [facility] Comment on above: Performed By: #### R ENAL, MG, URIC #### [facility] [address] [place] [address] Dr. Rizwan Fernando RBC 4.33 106/ul Normal 4.20-5.40 [facility] Comment on above: Performed By: #### R ENAL, MG, URIC #### [facility] [address] [place] [address] Dr. Rizwan Fernando WBC 5.4 103/ul Normal 4.0-11.0 [facility] Comment on above: Performed By: #### R ENAL, MG, URIC #### [facility] [address] [address] [address] Rizwan Fernando IRON AND TIBCon 12-04-2021 % SATURATION 20.3 % Normal [facility] Comment on above: Performed By: #### R ENAL, MG, URIC #### [facility] [address] [address] [address] Rizwan Fernando Iron [Mass/Vol] 56.0 ug/dL Normal 50.0-170.0 [facility] Comment on above: Performed By: #### R ENAL, MG, URIC #### [facility] [address] [place] [address] Dr. Rizwan Fernando TIBC DIRECT 276.0 ug/dL Normal 250.0-450.0 [facility] Comment on above: Performed By: #### R ENAL, MG, URIC #### [facility] [address] [place] [address] Dr. Rizwan Fernando LIPID PROFILEon 12-04-2021 CHOL-HDL RATIO NORM SEE BELOW Normal [facility] Comment on above: Result Comment: 3.3 - 4.4 LOW RISK 4.4 - 7.1 AVERAGE RISK 7.1 - 11.0 MODERATE RISK >11.0 HIGH RISK Performed By: #### R ENAL, MG, URIC #### [facility] [address] [place] [address] Dr. Rizwan Fernando Cholesterol [Mass/Vol] 152 mg/dL Normal <=200 [facility] Comment on above: Performed By: #### R ENAL, MG, URIC #### [facility] [address] [place] [address] Dr. Rizwan Fernando Cholesterol in HDL [Mass/Vol] 57 mg/dL Normal 40-60 [facility] Comment on above: Performed By: #### R ENAL, MG, URIC #### [facility] [address] [address] [address] Rizwan Fernando Cholesterol in LDL [Mass/Vol] 41.4 mg/dL Normal [facility] Comment on above: Performed By: #### R ENAL, MG, URIC #### [facility] [address] [address] [address] Rizwan Fernando Cholesterol.total/Ch olesterol in HDL [Mass ratio] 2.7 {ratio} Normal [facility] Comment on above: Performed By: #### R ENAL, MG, URIC #### [facility] [address] [address] [address] Rizwan Fernando HDL NORMAL > or = 60 mg/dl - LOW CARDIOVASCULAR RISK <40 mg/dl - HIGH CARDIOVASCULAR RISK Normal [facility] Comment on above: Performed By: #### R ENAL, MG, URIC #### [facility] [address] [place] [address] Dr. Rizwan Fernando LDL CALC NORMAL SEE BELOW Normal [facility] Comment on above: Result Comment: <100 mg/dl OPTIMAL 100 - 129 mg/dl NEAR OR ABOVE OPTIMAL 130 - 159 mg/dl BORDERLINE HIGH 160 - 189 mg/dl HIGH >190 mg/dl VERY HIGH Performed By: #### R ENAL, MG, URIC #### [facility] [address] [address] [address] Rizwan Fernando Triglyceride [Mass/Vol] 268 mg/dL Critically high <=150 [facility] Comment on above: Performed By: #### R ENAL, MG, URIC #### [facility] [address] [address] [address] Rizwan Fernando VLDL CALC 53.6 mg/dL Normal [facility] Comment on above: Performed By: #### R ENAL, MG, URIC #### [facility] [address] [address] [address] Rizwan Fernando MAGNESIUMon 12-04-2021 Magnesium [Mass/Vol] 1.6 mg/dL Critically low 1.8-2.4 [facility] Comment on above: Performed By: #### R ENAL, MG, URIC #### [facility] [address] [place] [address] Dr. Rizwan Fernando MICROALB CREAT RATIO RANDOMo n 12-04-2021 mALB 1.6 mg/L Normal <=30.0 [facility] Comment on above: Performed By: #### M CRR #### [facility] [address] [place] [address] Dr. Rizwan Fernando MALJimenez CR RATIO 26.9 mg/g Normal 0.0-29.9 [facility] [facility] Comment on above: Performed By: #### M CRR #### [facility] [address] [address] [address] Rizwan Fernando MALB CR RATIO RANGE SEE BELOW [facility] Comment on above: Result Comment: NO M ICROALBUMINURIA 0-29 MG/G CLINICAL MICROALBUMINURIA 30-300 MG/G MACROALBUMINURIA >300 MG/G Performed By: #### M CRR #### [facility] [address] [place] [address] Dr. Rizwan Fernando URINE CREAT 59.53 mg/dL Normal 20.00-300.00 [facility] Comment on above: Performed By: #### M CRR #### [facility] [address] [place] [address] Dr. Rizwan Fernando PHOSPHORUSon 12-04-2021 Phosphate [Mass/Vol] 4.0 mg/dL Normal 2.6-4.7 [facility] Comment on above: Performed By: #### R ENAL, MG, URIC #### [facility] [address] [place] [address] Dr. Rizwan Fernando PROF 14(COMP METB)on 022 Albumin [Mass/Vol] 4.0 g/dL Normal 3.4-5.[address] [facility] Comment on above: Performed By: #### R ENAL, MG, URIC #### [facility] [address] [place] [address] Dr. Rizwan Fernando Albumin/Globulin [Mass ratio] 1.3 {ratio} Normal [facility] Comment on above: Performed By: #### R ENAL, MG, URIC #### [facility] [address] [place] [address] Dr. Rizwan Fernando ALP [Catalytic activity/Vol] 118 U/L Critically high 46-116 [facility] Comment on above: Performed By: #### R ENAL, MG, URIC #### [facility] [address] [place] [address] Dr. Rizwan Fernando ALT [Catalytic activity/Vol] 23 U/L Normal 14-59 [facility] Comment on above: Performed By: #### R ENAL, MG, URIC #### [facility] [address] [place] [address] Dr. Rizwan Fernando Anion gap [Moles/Vol] 10.7 mmol/L Normal [facility] Comment on above: Performed By: #### R ENAL, MG, URIC #### [facility] [address] [place] [address] Dr. Rizwan Fernando AST [Catalytic activity/Vol] 20 U/L Normal 15-37 [facility] Comment on above: Performed By: #### R ENAL, MG, URIC #### [facility] [address] [place] [address] Dr. Rizwan Fernando Bilirubin [Mass/Vol] 0.6 mg/dL Normal 0.2-1.0 [facility] Comment on above: Performed By: #### R ENAL, MG, URIC #### [facility] [address] [place] [address] Dr. Rizwan Fernando Calcium [Mass/Vol] 8.9 mg/dL Normal 8.5-10.[address] [facility] Comment on above: Performed By: #### R ENAL, MG, URIC #### [facility] [address] [place] [address] Dr. Rizwan Fernando Chloride [Moles/Vol] 103 mmol/L Normal 98-107 [facility] Comment on above: Performed By: #### R ENAL, MG, URIC #### [facility] [address] [place] [address] Dr. Rizwan Fernando CO2 [Moles/Vol] 28.2 mmol/L Normal 21.0-32.[address] [facility] Comment on above: Performed By: #### R ENAL, MG, URIC #### [facility] [address] [address] [address] Rizwan Fernando Creatinine [Mass/Vol] 1.04 mg/dL Critically high 0.55-1.02 [facility] Comment on above: Performed By: #### R ENAL, MG, URIC #### [facility] [address] [address] [address] Rizwan Fernando EGFR-AF ICELANDIC >60 Normal >=60 [facility] Comment on above: Performed By: #### R ENAL, MG, URIC #### [facility] [address] [address] [address] Rizwan Fernando EGFR-NON AF ICELANDIC 52 mL/min/1.73m2 Critically low >=60 [facility] Comment on above: Performed By: #### R ENAL, MG, URIC #### [facility] [address] [place] [address] Dr. Rizwan Fernando Globulin (S) [Mass/Vol] 3.1 g/dL Normal [facility] Comment on above: Performed By: #### R ENAL, MG, URIC #### [facility] [address] [address] [address] Rizwan Fernando Glucose [Mass/Vol] 115 mg/dL Critically high 74-106 T [facility] Comment on above: Performed By: #### R ENAL, MG, URIC #### [facility] [address] [address] [address] Rizwan Fernando Potassium [Moles/Vol] 3.9 mmol/L Normal 3.5-5.1 [facility] Comment on above: Performed By: #### R ENAL, MG, URIC #### [facility] [address] [address] [address] Rizwan Fernando Protein [Mass/Vol] 7.1 g/dL Normal 6.4-8.[address] [facility] Comment on above: Performed By: #### R ENAL, MG, URIC #### [facility] [address] [address] [address] Rizwan Fernando Sodium [Moles/Vol] 138 mmol/L Normal 136-[address] [facility] Comment on above: Performed By: #### R ENAL, MG, URIC #### [facility] [address] [address] [address] Rizwan Fernando Urea nitrogen [Mass/Vol] 23.0 mg/dL Critically high 7.0-18.0 [facility] Comment on above: Performed By: #### R ENAL, MG, URIC #### [facility] [address] [place] [address] Dr. Rizwan Fernando Urea nitrogen/Creatinine [Mass ratio] 22.1 mg/mg Normal [facility] Comment on above: Performed By: #### R ENAL, MG, URIC #### [facility] [address] [place] [address] Dr. Rizwan Fernando UA RANDOM W/MICROSCOPICon BACTERIA NONE SEEN Normal NONE SEEN [facility] Comment on above: Performed By: #### R ENAL, MG, URIC #### [facility] [address] [place] [address] Dr. Rizwan Fernando Bilirubin Ql (U) Negative Normal NEGATIVE [facility] Comment on above: Performed By: #### R ENAL, MG, URIC #### [facility] [address] [place] [address] Dr. Rizwan Fernando CAST NONE SEEN Normal NONE SEEN [facility] Comment on above: Performed By: #### R ENAL, MG, URIC #### [facility] [address] [place] [address] Dr. Rizwan Fernando Clarity (U) CLEAR Normal CLEAR [facility] Comment on above: Performed By: #### R ENAL, MG, URIC #### [facility] [address] [place] [address] Dr. Rizwan Fernando Color (U) LT. YELLOW Normal YELLOW [facility] Comment on above: Performed By: #### R ENAL, MG, URIC #### [facility] [address] [place] [address] Dr. Rizwan Fernando Crystals LM Nom (Urine sed) NONE SEEN Normal NONE SEEN [facility] Comment on above: Performed By: #### R ENAL, MG, URIC #### [facility] [address] [address] [address] Rizwan Fernando Epithelial cells LM Ql (Urine sed) RARE Normal NONE SEEN /RARE [facility] Comment on above: Performed By: #### R ENAL, MG, URIC #### [facility] [address] [address] [address] Rizwan Fernando Glucose Ql (U) Negative Normal NEGATIVE [facility] Comment on above: Performed By: #### R ENAL, MG, URIC #### [facility] [address] [address] [address] Rizwan Fernando Hemoglobin Ql (U) Negative Normal NEGATIVE [facility] Comment on above: Performed By: #### R ENAL, MG, URIC #### [facility] [address] [place] [address] Dr. Rizwan Fernando Ketones Ql (U) Negative Normal NEGATIVE [facility] Comment on above: Performed By: #### R ENAL, MG, URIC #### [facility] [address] [address] [address] Rizwan Fernando LEUKOCYTES TRACE Abnormal NEGATIVE [facility] Comment on above: Performed By: #### R ENAL, MG, URIC #### [facility] [address] [address] [address] Rizwan Fernando MUCOUS NONE SEEN Normal NONE SEEN [facility] Comment on above: Performed By: #### R ENAL, MG, URIC #### [facility] [address] [address] [address] Rizwan Fernando Nitrite Ql (U) Negative Normal NEGATIVE [facility] Comment on above: Performed By: #### R ENAL, MG, URIC #### [facility] [address] [address] [address] Rizwan Fernando pH (U) 6.0 [pH] Normal 5-9 [facility] Comment on above: Performed By: #### R ENAL, MG, URIC #### [facility] [address] [place] [address] Dr. Rizwan Fernando RBC NONE SEEN Abnormal 0-2 [facility] Comment on above: Performed By: #### R ENAL, MG, URIC #### [facility] [address] [place] [address] Dr. Rizwan Fernando SPEC GRAVITY 1.010 Normal 1.005-<=1.025 The [facility] Comment on above: Performed By: #### R ENAL, MG, URIC #### [facility] [address] [place] [address] Dr. Rizwan Fernando UA PROTEIN Negative Normal NEGATIVE/ TRACE [facility] Comment on above: Performed By: #### R ENAL, MG, URIC #### [facility] [address] [place] [address] Dr. Rizwan Fernando Urobilinogen Qn (U) 0.2 {Wil'U}/dL Normal 0.2 - 1. 0 [facility] Comment on above: Performed By: #### R ENAL, MG, URIC #### [facility] [address] [place] [address] Dr. Rizwan Fernando WBC 0-2 Abnormal NONE SEEN [facility] Comment on above: Performed By: #### R ENAL, MG, URIC #### [facility] [address] [place] [address] Dr. Rizwan Fernando URIC ACID SERUMon 12-04-2021 Urate [Mass/Vol] 5.5 mg/dL Normal 2.6-6.0 [facility] Comment on above: Performed By: #### R ENAL, MG, URIC #### [facility] [address] [place] [address] Dr. Rizwan Fernando URINE T PROTEIN CREAT RATIOo n 12-04-2021 Protein (U) [Mass/Vol] 10.7 mg/dL Normal <=12.0 [facility] Comment on above: Performed By: #### R ENAL, MG, URIC #### [facility] [address] [place] [address] Dr. Rizwan Fernando UR PROT CREAT RAT 0.18 Normal The [facility] Comment on above: Performed By: #### R ENAL, MG, URIC #### [facility] [address] [place] [address] Dr. Rizwan Fernando URINE CREAT 59.94 mg/dL Normal 20.00-300.00 [facility] Comment on above: Performed By: #### R ENAL MG, URIC #### [facility] [address] [place] [address] Dr. Rizwan Fernando VITAMIN B12on 12-04-2021 Cobalamin (Vitamin B12) [Mass/Vol] 1679.0 pg/mL Critically high 193.0-986.0 [facility] Comment on above: Performed By: #### V ITB12 #### [facility] [address] [address] [address] Rizwan Fernando VITAMIN D 25 OHon 12-04-2021 VIT D 25-OH 38.3 ng/mL Normal [facility] Comment on above: Performed By: #### R ENREANNA MG, URIC #### [facility] [address] [place] [address] Dr. Rizwan Fernando VIT D RANGES SEE BELOW Normal [facility] Comment on above: Result Comment: <20 ng/mL Vit D deficient 20 - <30 ng/mL Vit D insufficient 30 - 100 ng/mL Vit D sufficient >100 ng/mL Potential Toxicity Performed By: #### R ENREANNA MG, URIC #### [facility] [address] [place] [address] Dr. Rizwan Fernando OVA AND PARASITE EXAMINATION on 06-25-2021 Ova + Parasite Exam Final report Normal [facility] Comment on above: Result Comment: Thes e results were obtained using wet preparation(s) and trichrome stained smear. This test does not include testing for Cryptosporidium parvum, Cyclospora, or Microsporidia. Performed By: #### R ENAL MG, URIC #### [facility] [address] [place] [address] Dr. Rizwan Fernando Result 1 Comment Normal [facility] Comment on above: Result Comment: No o va, cysts, or parasites seen. . One negative specimen does not rule out the possibility of a parasitic infection. Performed By: #### R ENAL MG, URIC #### [facility] [address] [place] [address] Dr. Rizwan Fernando A1C HEMOGLOBINon 06-23-2021 HbA1c (Bld) [Mass fraction] 6.1 % ethority Other Glucose - FINGER STICKon Glucose [Mass/Vol] 153 mg/dL ethority Other HbA1c (Bld) [Mass fraction]o n 06-23-2021 A[facility]C [facility]OGLOBIN [facility] STOOL CULTUREon 06-21-2021 Campylobacter Culture Final report Normal [facility] Comment on above: Performed By: #### C XSTOOL #### [facility] [address] [address] [address] Rizwan Fernando E coli Shiga Toxin EIA Negative Normal Negative [facility] Comment on above: Performed By: #### C XSTOOL #### [facility] [address] [address] [address] Rizwan Fernando Result 1 Comment Normal [facility] Comment on above: Result Comment: No S almonella or Shigella recovered. Performed By: #### C XSTOOL #### [facility] [address] [address] [address] Rizwan Fernando Result Comment: No C ampylobacter species isolated. Salmonella/Shigella Screen Final report Normal [facility] Comment on above: Performed By: #### C XSTOOL #### [facility] [address] [address] [address] Rizwan Fernando C. DIFF PCRon 06-18-2021 C. DIFFICILE PCR Negative Normal NEGATIVE [facility] Comment on above: Performed By: #### R ENAL, MG, URIC #### [facility] [address] [address] [address] Rizwan Fernando OCC BLD IMMUNOASSAYon 2021 OCCULT BLOOD Negative Normal NEGATIVE [facility] Comment on above: Performed By: #### R ENAL, MG, URIC #### [facility] [address] [address] [address] Rizwan Fernando FERRITINon 06-12-2021 Ferritin [Mass/Vol] 64.0 ng/mL Normal 11.1-264.0 [facility] Comment on above: Performed By: #### R ENAL, MG, URIC #### [facility] [address] [place] [address] Dr. Rizwan Fernando HEMOGRAM AND PLATELon 2021 Hematocrit (Bld) [Volume fraction] 39.1 % Normal 36.0-48.0 [facility] Comment on above: Performed By: #### R ENAL, MG, URIC #### [facility] [address] [place] [address] Dr. Rizwan Fernando Hemoglobin (Bld) [Mass/Vol] 12.6 g/dL Normal 12.0-16.0 [facility] Comment on above: Performed By: #### R ENAL, MG, URIC #### [facility] [address] [place] [address] Dr. Rizwan Fernando MCH (RBC) [Entitic mass] 28.3 pg Normal 26.7-34.0 [facility] Comment on above: Performed By: #### R ENAL, MG, URIC #### [facility] [address] [place] [address] Dr. Rizwan Fernando MCHC (RBC) [Mass/Vol] 32.2 g/dL Normal 29.9-35.2 [facility] Comment on above: Performed By: #### R ENAL, MG, URIC #### [facility] [address] [place] [address] Dr. Rizwan Fernando MCV (RBC) [Entitic vol] 87.9 fL Normal 81.0-99.0 [facility] Comment on above: Performed By: #### R ENAL, MG, URIC #### [facility] [address] [place] [address] Dr. Rizwan Fernando PLT 181 103/ul Normal 150-450 [facility] Comment on above: Performed By: #### R ENAL, MG, URIC #### [facility] [address] [place] [address] Dr. Rizwan Fernando RBC 4.45 106/ul Normal 4.20-5.40 [facility] Comment on above: Performed By: #### R ENAL, MG, URIC #### [facility] [address] [address] [address] Rizwan Fernando WBC 7.3 103/ul Normal 4.0-11.0 [facility] Comment on above: Performed By: #### R ENAL, MG, URIC #### [facility] [address] [place] [address] Dr. Rizwan Fernando IRON AND TIBCon 06-12-2021 % SATURATION 19.4 % Normal [facility] Comment on above: Performed By: #### R ENAL, MG, URIC #### [facility] [address] [place] [address] Dr. Rizwan Fernando Iron [Mass/Vol] 55.0 ug/dL Normal 37.0-170.0 The [facility] Comment on above: Performed By: #### R ENAL, MG, URIC #### [facility] [address] [place] [address] Dr. Rizwan Fernando TIBC DIRECT 284.0 ug/dL Normal 261.0-497.0 The [facility] Comment on above: Performed By: #### R ENAL, MG, URIC #### [facility] [address] [place] [address] Dr. Rizwan Fernando MAGNESIUMon 06-12-2021 Magnesium [Mass/Vol] 1.9 mg/dL Normal 1.6-2.3 [facility] Comment on above: Performed By: #### R ENAL, MG, URIC #### [facility] [address] [place] [address] Dr. Rizwan Fernando RENAL FUNCTION PANELon 06-12 Albumin [Mass/Vol] 3.8 g/dL Normal 3.4-5.[address] [facility] Comment on above: Performed By: #### R ENAL, MG, URIC #### [facility] [address] [place] [address] Dr. Rizwan Fernando Calcium [Mass/Vol] 8.6 mg/dL Normal 8.5-10.[address] [facility] Comment on above: Performed By: #### R ENAL, MG, URIC #### [facility] [address] [address] [address] Rizwan Fernando Chloride [Moles/Vol] 102 mmol/L Normal 98-107 [facility] Comment on above: Performed By: #### R ENAL, MG, URIC #### [facility] [address] [address] [address] Rizwan Fernando CO2 [Moles/Vol] 31.2 mmol/L Critically high 22.0-30.0 [facility] Comment on above: Performed By: #### R ENAL, MG, URIC #### [facility] [address] [address] [address] Rizwan Fernando Creatinine [Mass/Vol] 1.07 mg/dL Critically high 0.52-1.04 [facility] Comment on above: Performed By: #### R ENAL, MG, URIC #### [facility] [address] [address] [address] Rizwan Fernando EGFR-AF ICELANDIC >60 Normal >=60 [facility] Comment on above: Performed By: #### R ENAL, MG, URIC #### [facility] [address] [address] [address] Rizwan Fernando EGFR-NON AF ICELANDIC 50 mL/min/1.73m2 Critically low >=60 [facility] Comment on above: Performed By: #### R ENAL, MG, URIC #### [facility] [address] [address] [address] Rizwan Fernando Glucose [Mass/Vol] 122 mg/dL Critically high 74-106 [facility] Comment on above: Performed By: #### R ENAL, MG, URIC #### [facility] [address] [address] [address] Rizwan Fernando Phosphate [Mass/Vol] 4.6 mg/dL Critically high 2.5-4.5 [facility] Comment on above: Performed By: #### R ENAL, MG, URIC #### [facility] [address] [address] [address] Riwzan Fernando Potassium [Moles/Vol] 4.1 mmol/L Normal 3.4-5.0 [facility] Comment on above: Performed By: #### R ENAL, MG, URIC #### [facility] [address] [place] [address] Dr. Rizwan Fernando Sodium [Moles/Vol] 138 mmol/L Normal 137-[address] [facility] Comment on above: Performed By: #### R ENAL, MG, URIC #### [facility] [address] [place] [address] Dr. Rizwan Fernando Urea nitrogen [Mass/Vol] 27.0 mg/dL Critically high 7.0-18.0 [facility] Comment on above: Performed By: #### R ENAL, MG, URIC #### [facility] [address] [place] [address] Dr. Rizwan Fernando UA RANDOM W/MICROSCOPICon BACTERIA NONE SEEN Normal NONE SEEN [facility] Comment on above: Performed By: #### U AMIC #### [facility] [address] [place] [address] Dr. Rizwan Fernando Bilirubin Ql (U) Negative Normal NEGATIVE [facility] Comment on above: Performed By: #### U AMIC #### [facility] [address] [place] [address] Dr. Rizwan Fernando CAST NONE SEEN Normal NONE [facility] Comment on above: Performed By: #### U AMIC #### [facility] [address] [place] [address] Dr. Rizwan Fernando Clarity (U) CLEAR Normal CLEAR [facility] Comment on above: Performed By: #### U AMIC #### [facility] [address] [place] [address] Dr. Rizwan Fernando Color (U) LT. YELLOW Normal YELLOW [facility] Comment on above: Performed By: #### U AMIC #### [facility] [address] [place] [address] Dr. Rizwan Fernando Crystals LM Nom (Urine sed) NONE SEEN Normal NONE SEEN [facility] Comment on above: Performed By: #### U AMIC #### [facility] [address] [place] [address] Dr. Rizwan Fernando Epithelial cells LM Ql (Urine sed) RARE Normal NONE SEEN /RARE [facility] Comment on above: Performed By: #### U AMIC #### [facility] [address] [address] [address] Rizwan Fernando Glucose Ql (U) Negative Normal NEGATIVE [facility] Comment on above: Performed By: #### U AMIC #### [facility] [address] [address] [address] Rizwan Fernando Hemoglobin Ql (U) Negative Normal NEGATIVE The [facility] Comment on above: Performed By: #### U AMIC #### [facility] [address] [address] [address] Rizwan Fernando Ketones Ql (U) Negative Normal NEGATIVE [facility] Comment on above: Performed By: #### U AMIC #### [facility] [address] [address] [address] Rizwan Fernando LEUKOCYTES Negative Normal NEGATIVE [facility] Comment on above: Performed By: #### U AMIC #### [facility] [address] [address] [address] Rizwan Fernando MUCOUS NONE SEEN Normal NONE SEEN [facility] Comment on above: Performed By: #### U AMIC #### [facility] [address] [address] [address] Rizwan Fernando Nitrite Ql (U) Negative Normal NEGATIVE [facility] Comment on above: Performed By: #### U AMIC #### [facility] [address] [address] [address] Rizwan Fernando pH (U) 6.0 [pH] Normal 5-9 [facility] Comment on above: Performed By: #### U AMIC #### [facility] [address] [address] [address] Rizwan Fernando RBC NONE SEEN Abnormal 0-2 [facility] Comment on above: Performed By: #### U AMIC #### [facility] [address] [address] [address] Rizwan Fernando SPEC GRAVITY 1.010 Normal 1.005-<=1.025 The [facility] Comment on above: Performed By: #### U AMIC #### [facility] [address] [address] [address] Rizwan Fernando TRICH NONE SEEN Normal NONE SEEN [facility] Comment on above: Performed By: #### U AMIC #### [facility] [address] [place] [address] Dr. Rizwan Fernando UA PROTEIN Negative Normal NEGATIVE/ TRACE [facility] Comment on above: Performed By: #### U AMIC #### [facility] [address] [address] [address] Rizwan Fernando Urobilinogen Qn (U) 0.2 {Wil'U}/dL Normal 0.2 - 1. 0 [facility] Comment on above: Performed By: #### U AMIC #### [facility] [address] [place] [address] Dr. Rizwan Fernando WBC NONE SEEN Normal NONE SEEN [facility] Comment on above: Performed By: #### U AMIC #### [facility] [address] [place] [address] Dr. Rizwan Fernando YEAST NONE SEEN Normal NONE SEEN [facility] Comment on above: Performed By: #### U AMIC #### [facility] [address] [place] [address] Dr. Rizwan Fernando URIC ACID SERUMon 06-12-2021 Urate [Mass/Vol] 5.5 mg/dL Normal 2.5-6.[address] [facility] Comment on above: Performed By: #### R ENAL, MG, URIC #### [facility] [address] [place] [address] Dr. Rizwan Fernando URINE T PROTEIN CREAT RATIOo n 06-12-2021 Protein (U) [Mass/Vol] 17.5 mg/dL Critically high <=12.0 [facility] Comment on above: Performed By: #### R ENAL, MG, URIC #### [facility] [address] [place] [address] Dr. Rizwan Fernando UR PROT CREAT RAT 0.23 Normal [facility] Comment on above: Performed By: #### R ENAL, MG, URIC #### [facility] [address] [address] [address] Rizwan Fernando URINE CREAT 76.34 mg/dL Normal 20.00-300.00 [facility] Comment on above: Performed By: #### R ENAL, MG, URIC #### [facility] [address] [address] [address] Rizwan Fernando VITAMIN D 25 OHon 06-12-2021 VIT D 25-OH 41.1 ng/mL Normal [facility] Comment on above: Performed By: #### R ENAL, MG, URIC #### [facility] [address] [address] [address] Rizwan Fernando VIT D RANGES SEE BELOW Normal [facility] Comment on above: Result Comment: <20 ng/mL Vit D deficient 20 - <30 ng/mL Vit D insufficient 30 - 100 ng/mL Vit D sufficient >100 ng/mL Potential Toxicity Performed By: #### R ENAL, MG, URIC #### [facility] [address] [address] [address] Rizwan Fernando A1C HEMOGLOBINon 12-17-2020 HbA1c (Bld) [Mass fraction] 5.8 % [facility] Other Glucose - FINGER STICKon Glucose [Mass/Vol] 182 mg/dL [facility] Other HbA1c (Bld) [Mass fraction]o n 12-17-2020 A1C HEMOGLOBIN [facility] [employer] Other LOWER EXTREMITY JOINT SURVEY on 09-21-2016 LOWER EXTREMITY [facility]INT [facility] [place] [id number] Patien t Name: ASHLEY OLSON : 1945Sex: FAge: Race: WhiteMRN: [id number]. Location: 84Patient Status: OVisit #: [id number] Date: 09/21/2016 9:05:00 AMCompleted Date: 09/21/2016 09:04 AMRequesting Provider: JACIEL SANTOS Attending Provider: JACIEL SANTOS Report Copy To: Signs & Symptoms: Z96.659 Presence of unspecified artificial knee joint [id number]: AthenaComments: , , , Ordering Provider - JACIEL SANTOS MD , Rendering Provider - JACIEL SANTOS MD , Exam: LOWER EXTREMITY JOINT SURVEYAccession #: [id number] =LOWER EXTREMITY JOINT SURVEY 09/21/2016 9:04 AM [...] post bilateral total knees. Electronically signed by:Donald Karimi. Transcribed by: Laverne, User Resident: Electronically Signed by: DONALD KARIMI @ 09/21/2016 11:55 AM Normal [facility] Comment on above: Order Comment: , , = ========= , Ordering Provider - JACIEL SANTOS MD , Rendering Provider - JACIEL SANTOS MD , Vital Signs Date Time Vital Sign Value Performing Clinician Facility 02-06-2024 16:02-0500 Body mass index (BMI) [Ratio] 35.36 kg/m2 Dana Willie CALENDER ROLL OPERATOR Work Phone: [facility] 02-06-2024 16:02-0500 Body temperature 98.8 [degF] Dana Aichporshaz CALENDER ROLL OPERATOR Work Phone: [facility] 02-06-2024 16:02-0500 Body weight 91.99 kg Dana Lisettehporshaz CALENDER ROLL OPERATOR Work Phone: [facility] 02-06-2024 16:02-0500 Diastolic blood pressure 78 mm[Hg] Dana Arianz CALENDER ROLL OPERATOR Work Phone: [facility] 02-06-2024 16:02-0500 Heart rate 85 /min Dana Aichholz CALENDER ROLL OPERATOR Work Phone: [facility] 02-06-2024 16:02-0500 Respiratory rate 19 /min Dana Lisettehholz CALENDER ROLL OPERATOR Work Phone: [facility] 02-06-2024 16:02-0500 SaO2% (BldA) [Mass fraction] 98 % Dana Arianz CALENDER ROLL OPERATOR Work Phone: [facility] 02-06-2024 16:02-0500 Systolic blood pressure 138 mm[Hg] Dana Aichholz CALENDER ROLL OPERATOR Work Phone: [facility] 01-19-2024 09:23-0500 Body height 160 cm Daniel Wolf MD Work Phone: [facility] 01-19-2024 09:23-0500 Body mass index (BMI) [Ratio] 35.01 kg/m2 Daniel Wolf MD Work Phone: [facility] 01-19-2024 09:23-0500 Body weight 89.63 kg Daniel Wolf MD Work Phone: [facility] 01-16-2024 14:14-0500 Body height 161.3 cm Carloschristina Baer DPM Work Phone: [facility] 01-16-2024 14:14-0500 Body mass index (BMI) [Ratio] 35.22 kg/m2 Carlos Baer DPM Work Phone: [facility] 01-16-2024 14:14-0500 Body weight 91.63 kg Carlos Baer DPM Work Phone: [facility] 01-11-2024 14:20-0500 Body height 161.3 cm Dana Tapia CALENDER ROLL OPERATOR Work Phone: [facility] 01-11-2024 14:20-0500 Body mass index (BMI) [Ratio] 35.33 kg/m2 Danataco Tapia CALENDER ROLL OPERATOR Work Phone: [facility] 01-11-2024 14:20-0500 Body temperature 98.49 [degF] Dana Willie CALENDER ROLL OPERATOR Work Phone: [facility] 01-11-2024 14:20-0500 Body weight 91.9 kg Dana Willie CALENDER ROLL OPERATOR Work Phone: [facility] 01-11-2024 14:20-0500 Diastolic blood pressure 86 mm[Hg] Dana Willie CALENDER ROLL OPERATOR Work Phone: [facility] 01-11-2024 14:20-0500 Heart rate 72 /min Dana Willie CALENDER ROLL OPERATOR Work Phone: [facility] 01-11-2024 14:20-0500 Respiratory rate 18 /min Dana Willie CALENDER ROLL OPERATOR Work Phone: [facility] 01-11-2024 14:20-0500 SaO2% (BldA) [Mass fraction] 99 % Dana Willie CALENDER ROLL OPERATOR Work Phone: [facility] 01-11-2024 14:20-0500 Systolic blood pressure 118 mm[Hg] Dana Willie CALENDER ROLL OPERATOR Work Phone: [facility] 12-12-2023 09:47-0400 Body height 162.56 cm [facility] 12-12-2023 09:47-0400 Body mass index (BMI) [Ratio] 34.7 kg/m2 [facility] 12-12-2023 09:47-0400 Body temperature 96.7 [degF] [facility] 12-12-2023 09:47-0400 Body weight 91.85 kg [facility] 12-12-2023 09:47-0400 Diastolic blood pressure 84 mm[Hg] [facility] 12-12-2023 09:47-0400 Heart rate 76 /min [facility] 12-12-2023 09:47-0400 Respiratory rate 16 /min [facility] 12-12-2023 09:47-0400 SaO2% (BldA) [Mass fraction] 97 % [facility] 12-12-2023 09:47-0400 Systolic blood pressure 146 mm[Hg] [facility] 11-28-2023 13:50-0400 Body height 161.3 cm Dana Willie CALENDER ROLL OPERATOR Work Phone: [facility] 11-28-2023 13:50-0400 Body mass index (BMI) [Ratio] 35.4 kg/m2 Dana Willie CALENDER ROLL OPERATOR Work Phone: [facility] 11-28-2023 13:50-0400 Body temperature 98.49 [degF] Dana Tapia CALENDER ROLL OPERATOR Work Phone: [facility] 11-28-2023 13:50-0400 Body weight 92.08 kg Dana Tapia CALENDER ROLL OPERATOR Work Phone: [facility] 11-28-2023 13:50-0400 Diastolic blood pressure 74 mm[Hg] Dana Tapia CALENDER ROLL OPERATOR Work Phone: [facility] 11-28-2023 13:50-0400 Heart rate 63 /min Dana Tapia CALENDER ROLL OPERATOR Work Phone: [facility] 11-28-2023 13:50-0400 Respiratory rate 19 /min Dana Tapia CALENDER ROLL OPERATOR Work Phone: [facility] 11-28-2023 13:50-0400 SaO2% (BldA) [Mass fraction] 96 % Dana Tapia CALENDER ROLL OPERATOR Work Phone: [facility] 11-28-2023 13:50-0400 Systolic blood pressure 122 mm[Hg] Dana Tapia CALENDER ROLL OPERATOR Work Phone: [facility] 10-04-2023 13:52-0400 Body height 162.56 cm [facility] 10-04-2023 13:52-0400 Body mass index (BMI) [Ratio] 34.5 kg/m2 [facility] 10-04-2023 13:52-0400 Body weight 91.31 kg [facility] 10-04-2023 13:52-0400 Diastolic blood pressure 72 mm[Hg] [facility] 10-04-2023 13:52-0400 Heart rate 72 /min [facility] 10-04-2023 13:52-0400 Respiratory rate 18 /min [facility] 10-04-2023 13:52-0400 SaO2% (BldA) [Mass fraction] 95 % [facility] 10-04-2023 13:52-0400 Systolic blood pressure 126 mm[Hg] [facility] 06-13-2023 14:04-0400 Body height 162.56 cm PHYSICIAN NO [facility] 06-13-2023 14:04-0400 Body mass index (BMI) [Ratio] 34.9 kg/m2 PHYSICIAN NO [facility] 06-13-2023 14:04-0400 Body temperature 97.2 [degF] PHYSICIAN NO [facility] 06-13-2023 14:04-0400 Body weight 92.16 kg PHYSICIAN NO [facility] 06-13-2023 14:04-0400 Diastolic blood pressure 77 mm[Hg] PHYSICIAN NO [facility] 06-13-2023 14:04-0400 Heart rate 89 /min PHYSICIAN NO [facility] 06-13-2023 14:04-0400 Respiratory rate 16 /min PHYSICIAN NO [facility] 06-13-2023 14:04-0400 SaO2% (BldA) [Mass fraction] 99 % PHYSICIAN NO [facility] 06-13-2023 14:04-0400 Systolic blood pressure 128 mm[Hg] PHYSICIAN NO [facility] 04-13-2023 14:11-0500 Body height 161.3 cm Carlos Baer DPM Work Phone: [facility] 04-13-2023 14:11-0500 Body mass index (BMI) [Ratio] 35.57 kg/m2 Carlos Baer DPM Work Phone: [facility] 04-13-2023 14:11-0500 Body weight 92.53 kg Carlos Baer DPM Work Phone: [facility] 03-31-2023 14:15-0500 Body height 162.56 cm PHYSICIAN NO [facility] 03-31-2023 14:15-0500 Body weight 93.53 kg PHYSICIAN NO [facility] 03-31-2023 14:15-0500 Diastolic blood pressure 70 mm[Hg] PHYSICIAN NO [facility] 03-31-2023 14:15-0500 Systolic blood pressure 120 mm[Hg] PHYSICIAN NO [facility] 12-14-2022 14:40-0400 Body height 162.56 cm Eboni Buck Other [facility] Other 12-14-2022 14:40-0400 Body mass index (BMI) [Ratio] 37.62 kg/m2 Eboni Buck Other [facility] Other 12-14-2022 14:40-0400 Body temperature 96.3 [degF] Eboni Buck Other [facility] Other 12-14-2022 14:40-0400 Body weight 99.43 kg Eboni Buck Other [facility] Other 12-14-2022 14:40-0400 Diastolic blood pressure 80 mm[Hg] Eboni Buck Other [facility] Other 12-14-2022 14:40-0400 Respiratory rate 18 /min Eboni Buck Other [facility] Other 12-14-2022 14:40-0400 SaO2% (BldA) [Mass fraction] 98 % Eboni Buck Other [facility] Other 12-14-2022 14:40-0400 Systolic blood pressure 120 mm[Hg] Eboni Buck Other [facility] Other 09-29-2022 14:45-0400 Body height 162.56 cm Tondra Mapus Other [facility] Other 09-29-2022 14:45-0400 Body mass index (BMI) [Ratio] 37.38 kg/m2 Tondra Mapus Other [facility] Other 09-29-2022 14:45-0400 Body weight 98.79 kg Tondra Mapus Other [facility] Other 09-29-2022 14:45-0400 Diastolic blood pressure 85 mm[Hg] Tondra Mapus Other [facility] Other 09-29-2022 14:45-0400 Respiratory rate 18 /min Tondra Mapus Other [facility] Other 09-29-2022 14:45-0400 SaO2% (BldA) [Mass fraction] 99 % Tondra Mapus Other [facility] Other 09-29-2022 14:45-0400 Systolic blood pressure 149 mm[Hg] Tondra Mapus Other [facility] Other 06-08-2022 15:00-0400 Body height 162.56 cm Eboni Buck Other [facility] Other 06-08-2022 15:00-0400 Body mass index (BMI) [Ratio] 37.83 kg/m2 Eboni Buck Other [facility] Other 06-08-2022 15:00-0400 Body weight 99.97 kg Eboni Buck Other [facility] Other 06-08-2022 15:00-0400 Diastolic blood pressure 78 mm[Hg] Eboni Buck Other [facility] Other 06-08-2022 15:00-0400 Respiratory rate 18 /min Eboni Buck Other [facility] Other 06-08-2022 15:00-0400 SaO2% (BldA) [Mass fraction] 97 % Eboin Buck Other [facility] Other 06-08-2022 15:00-0400 Systolic blood pressure 136 mm[Hg] Eboni Buck Other [facility] Other 03-31-2022 16:45-0500 Body height 162.56 cm Tondra Mapus Other [facility] Other 03-31-2022 16:45-0500 Body mass index (BMI) [Ratio] 37.96 kg/m2 Tondra Mapus Other [facility] Other 03-31-2022 16:45-0500 Body weight 100.34 kg Tondra Mapus Other [facility] Other 03-31-2022 16:45-0500 Diastolic blood pressure 83 mm[Hg] Tondra Mapus Other [facility] Other 03-31-2022 16:45-0500 Respiratory rate 18 /min Tondra Mapus Other [facility] Other 03-31-2022 16:45-0500 SaO2% (BldA) [Mass fraction] 97 % Tondra Mapus Other [facility] Other 03-31-2022 16:45-0500 Systolic blood pressure 151 mm[Hg] Tondra Mapus Other [facility] Other 12-21-2021 15:00-0400 Body height 162.56 cm Tondra Mapus Other [facility] Other 12-21-2021 15:00-0400 Body mass index (BMI) [Ratio] 37.76 kg/m2 Tondra Mapus Other [facility] Other 12-21-2021 15:00-0400 Body weight 99.79 kg Tondra Mapus Other [facility] Other 12-21-2021 15:00-0400 Diastolic blood pressure 81 mm[Hg] Tondra Mapus Other [facility] Other 12-21-2021 15:00-0400 Respiratory rate 20 /min Tondra Mapus Other [facility] Other 12-21-2021 15:00-0400 SaO2% (BldA) [Mass fraction] 99 % Tondra Mapus Other [facility] Other 12-21-2021 15:00-0400 Systolic blood pressure 141 mm[Hg] Tondra Mapus Other [facility] Other 12-14-2021 15:20-0400 Body height 162.56 cm Eboni Buck Other [facility] Other 12-14-2021 15:20-0400 Body mass index (BMI) [Ratio] 37.66 kg/m2 Eboni Buck Other [facility] Other 12-14-2021 15:20-0400 Body temperature 96.7 [degF] Eboni Bukc Other [facility] Other 12-14-2021 15:20-0400 Body weight 99.52 kg Eboni Buck Other [facility] Other 12-14-2021 15:20-0400 Diastolic blood pressure 87 mm[Hg] Eboni Buck Other [facility] Other 12-14-2021 15:20-0400 Respiratory rate 18 /min Eboni Buck Other [facility] Other 12-14-2021 15:20-0400 SaO2% (BldA) [Mass fraction] 96 % Eboni Buck Other [facility] Other 12-14-2021 15:20-0400 Systolic blood pressure 153 mm[Hg] Eboni Buck Other [facility] Other 09-23-2021 10:55-0400 Body height 162.56 cm Kristin Aminmond Other [facility] Other 09-23-2021 10:55-0400 Body mass index (BMI) [Ratio] 37.24 kg/m2 Kristin Aminmond Other [facility] Other 09-23-2021 10:55-0400 Body temperature 99.2 [degF] Kristin Aminmond Other [facility] Other 09-23-2021 10:55-0400 Body weight 98.43 kg Kristin Janae Other [facility] Other 09-23-2021 10:55-0400 Diastolic blood pressure 74 mm[Hg] Kristin Janae Other [facility] Other 09-23-2021 10:55-0400 Respiratory rate 18 /min Kristin Janae Other [facility] Other 09-23-2021 10:55-0400 SaO2% (BldA) [Mass fraction] 98 % Kristin Janae Other [facility] Other 09-23-2021 10:55-0400 Systolic blood pressure 129 mm[Hg] Kristin Cardoso Other [facility] Other 06-23-2021 15:30-0400 Body height 162.56 cm Tondra Mapus Other [facility] Other 06-23-2021 15:30-0400 Body mass index (BMI) [Ratio] 37.59 kg/m2 Tondra Mapus Other [facility] Other 06-23-2021 15:30-0400 Body weight 99.34 kg Tondra Mapus Other [facility] Other 06-23-2021 15:30-0400 Diastolic blood pressure 76 mm[Hg] Tondra Mapus Other [facility] Other 06-23-2021 15:30-0400 Respiratory rate 16 /min Tondra Mapus Other [facility] Other 06-23-2021 15:30-0400 SaO2% (BldA) [Mass fraction] 99 % Tondra Mapus Other [facility] Other 06-23-2021 15:30-0400 Systolic blood pressure 121 mm[Hg] Tondra Mapus Other [facility] Other 06-17-2021 15:00-0400 Body height 162.56 cm Eboni Buck Other [facility] Other 06-17-2021 15:00-0400 Body mass index (BMI) [Ratio] 37.59 kg/m2 Eboni Buck Other [facility] Other 06-17-2021 15:00-0400 Body temperature 97.2 [degF] Eboni Buck Other [facility] Other 06-17-2021 15:00-0400 Body weight 99.34 kg Eboni Buck Other [facility] Other 06-17-2021 15:00-0400 Diastolic blood pressure 81 mm[Hg] Eboni Buck Other [facility] Other 06-17-2021 15:00-0400 Respiratory rate 18 /min Eboni Buck Other [facility] Other 06-17-2021 15:00-0400 SaO2% (BldA) [Mass fraction] 95 % Eboni Buck Other [facility] Other 06-17-2021 15:00-0400 Systolic blood pressure 137 mm[Hg] Eboni Buck Other [facility] Other 12-23-2020 14:40-0400 Body height 162.56 cm Eboni Buck Other [facility] Other 12-23-2020 14:40-0400 Body mass index (BMI) [Ratio] 38.21 kg/m2 Eboni Buck Other [facility] Other 12-23-2020 14:40-0400 Body temperature 97.3 [degF] Eboni Buck Other [facility] Other 12-23-2020 14:40-0400 Body weight 100.97 kg Eboni Buck Other [facility] Other 12-23-2020 14:40-0400 Diastolic blood pressure 83 mm[Hg] Eboni Buck Other [facility] Other 12-23-2020 14:40-0400 Respiratory rate 18 /min Eboni Buck Other [facility] Other 12-23-2020 14:40-0400 SaO2% (BldA) [Mass fraction] 93 % Eboni Buck Other [facility] Other 12-23-2020 14:40-0400 Systolic blood pressure 127 mm[Hg] Eboni Buck Other [facility] Other 12-17-2020 15:15-0400 Body height 162.56 cm Tondra Mapus Other [facility] Other 12-17-2020 15:15-0400 Body mass index (BMI) [Ratio] 37.76 kg/m2 Tondra Mapus Other [facility] Other 12-17-2020 15:15-0400 Body weight 99.79 kg Tondra Mapus Other [facility] Other 12-17-2020 15:15-0400 Diastolic blood pressure 80 mm[Hg] Tondra Mapus Other [facility] Other 12-17-2020 15:15-0400 Respiratory rate 20 /min Tondra Mapus Other [facility] Other 12-17-2020 15:15-0400 SaO2% (BldA) [Mass fraction] 97 % Bernardino Talavera Other [facility] Other 12-17-2020 15:15-0400 Systolic blood pressure 133 mm[Hg] Bernardino Talavera Other [facility] Other Encounters Encounter Date Encounter Type Care Provider Facility Start: 02-10-2024 End: 02-10-2024 ambulatory Bernardino Talavera Facility:[facility] Start: 02-06-2024 End: 02-06-2024 Office outpatient visit 15 minutes Dana Tapia CALENDER ROLL OPERATOR Work Phone: [facility] Comment on above: Class 2 severe obesi ty due to excess calories with serious comorbidity and body mass index (BMI) of 36.0 to 36.9 in adult (CMS/HCC) (Primary Dx); Essential (primary) hypertension (CMS/HCC); Acute non-recurrent pansinusitis; Encounter for screening mammogram for malignant neoplasm of breast Start: 02-06-2024 End: 02-06-2024 ambulatory DANA TAPIA Not Available Start: 02-06-2024 End: 02-06-2024 Bamboo flowsheet Dana Tapia CALENDER ROLL OPERATOR Work Phone: [facility] Start: 02-06-2024 End: 02-06-2024 Bamboo flowsheet Dana Tapia CALENDER ROLL OPERATOR Work Phone: [facility] Start: 01-20-2024 ambulatory DANA TAPIA [facility] Start: 01-19-2024 End: 01-19-2024 Office outpatient visit 25 minutes 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) Start: 01-19-2024 End: 01-19-2024 Orders Only Genevieve Linn CNA [facility] Comment on above: Right shoulder pain, unspecified chronicity (Primary Dx) Start: 01-16-2024 End: 01-16-2024 Patient encounter procedure Carlos Baer DPM Work Phone: [facility] Comment on above: Dermatophytosis of n ail (Primary Dx); Dystrophic nail; Pain around toenail, right foot; Pain around toenail, left foot Start: 01-16-2024 End: 01-16-2024 ambulatory CARLOS BAER Not Available Start: 01-16-2024 End: 01-16-2024 Bamboo flowsheet Carlos Baer DPM Work Phone: [facility] Start: 01-16-2024 End: 01-16-2024 Bamboo flowsheet Carlos Baer DPM Work Phone: [facility] Start: 01-11-2024 End: 01-11-2024 Office outpatient visit 25 minutes Dana Tapia CALENDER ROLL OPERATOR Work Phone: [facility] Comment on above: Fibromyalgia (Primar y Dx); 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 elsewhere ([facility]); Class 2 severe obesity due to excess calories with serious comorbidity and body mass index (BMI) of 36.0 to 36.9 in adult (CMS/[facility]); ODALYS (generalized anxiety disorder) (CMS/[facility]); Essential (primary) hypertension ([facility]); Age-related osteoporosis without current pathological fracture ([facility]); Primary osteoarthritis involving multiple joints Start: 01-11-2024 End: 01-11-2024 ambulatory DANA TAPIA Not Available Start: 01-11-2024 End: 01-11-2024 Bamboo flowsheet Dana Tapia CALENDER ROLL OPERATOR Work Phone: [facility] Start: 01-11-2024 End: 01-11-2024 Bamboo flowsheet Dana Tapia CALENDER ROLL OPERATOR Work Phone: [facility] Start: 01-11-2024 End: 01-11-2024 Telephone [facility] Start: 01-10-2024 End: 01-10-2024 Bamboo flowsheet Jeffrey Schilling DO Work Phone: [facility] Start: 01-10-2024 End: 01-10-2024 Bamboo flowsheet Jeffrey Schilling DO Work Phone: [facility] Start: 01-10-2024 End: 01-10-2024 Office outpatient visit 10 minutes Jeffrey Schilling DO Work Phone: [facility] Comment on above: Status post right ro tator cuff repair (Primary Dx); Right shoulder pain, unspecified chronicity Start: 01-10-2024 End: 01-10-2024 ambulatory JEFFREY SCHILLING Not Available Start: 01-09-2024 End: 01-09-2024 ambulatory Jesenia Luisito LEIGH Work Phone: [facility] Comment on above: Acute pain of right shoulder (Primary Dx); Shoulder stiffness, right Start: 01-06-2024 End: 01-06-2024 ambulatory Leo Goodwin PT Work Phone: [facility] Comment on above: Acute pain of right shoulder (Primary Dx); Shoulder stiffness, right Start: 01-05-2024 End: 01-05-2024 Bamboo flowsheet May Pulido CALENDER ROLL OPERATOR Work Phone: [facility] Start: 01-05-2024 End: 01-05-2024 Bamboo flowsheet May Pulido CALENDER ROLL OPERATOR Work Phone: [facility] Start: 01-05-2024 End: 01-05-2024 Office outpatient visit 10 minutes May Pulido CALENDER ROLL OPERATOR Work Phone: [facility] Comment on above: Status post right ro tator cuff repair (Primary Dx); Right shoulder pain, unspecified chronicity Start: 01-05-2024 End: 01-05-2024 ambulatory MAY PULIDO Not Available Start: 01-02-2024 End: 01-02-2024 Bamboo flowsheet Leo Goodwin PT Work Phone: [facility] Start: 01-02-2024 End: 01-02-2024 Bamboo flowsheet Leo Goodwin PT Work Phone: [facility] Start: 01-02-2024 End: 01-02-2024 ambulatory Leo Goodwin PT Work Phone: [facility] Comment on above: Acute pain of right shoulder (Primary Dx); Shoulder stiffness, right Start: 12-30-2023 End: 12-30-2023 Bamboo flowsheet Christine Uribe MANUFACTURER'S SERVICE REPRESENTATIVE [facility] Start: 12-30-2023 End: 12-30-2023 Bamboo flowsheet Christine Uribe MANUFACTURER'S SERVICE REPRESENTATIVE [facility] Start: 12-30-2023 End: 12-30-2023 ambulatory Christine Uribe MANUFACTURER'S SERVICE REPRESENTATIVE [facility] Comment on above: Acute pain of right shoulder (Primary Dx); Shoulder stiffness, right Start: 12-29-2023 End: 12-29-2023 Refill Dana Tapia CALENDER ROLL OPERATOR Work Phone: [facility] Comment on above: Gastro-esophageal re flux disease without esophagitis; Esophageal reflux Start: 12-28-2023 End: 12-28-2023 Bamboo flowsheet Jesenia Jorge MANUFACTURER'S SERVICE REPRESENTATIVE Work Phone: [facility] Start: 12-28-2023 End: 12-28-2023 Bamboo flowsheet Jesenia Jorge MANUFACTURER'S SERVICE REPRESENTATIVE Work Phone: [facility] Start: 12-28-2023 End: 12-28-2023 ambulatory Jesenia Jorge MANUFACTURER'S SERVICE REPRESENTATIVE Work Phone: [facility] Comment on above: Acute pain of right shoulder (Primary Dx); Shoulder stiffness, right Start: 12-23-2023 End: 12-23-2023 Bamboo flowsheet Jesenia Jorge MANUFACTURER'S SERVICE REPRESENTATIVE Work Phone: [facility] Start: 12-23-2023 End: 12-23-2023 Bamboo flowsheet Jesenia Jorge MANUFACTURER'S SERVICE REPRESENTATIVE Work Phone: [facility] Start: 12-23-2023 End: 12-23-2023 ambulatory Jesenia Jorge MANUFACTURER'S SERVICE REPRESENTATIVE Work Phone: [facility] Comment on above: Acute pain of right shoulder (Primary Dx); Shoulder stiffness, right Start: 12-19-2023 End: 12-19-2023 Bamboo flowsheet Leo J Buddy PT Work Phone: [facility] Start: 12-19-2023 End: 12-19-2023 Bamboo flowsheet Leo J Buddy PT Work Phone: [facility] Start: 12-19-2023 End: 12-19-2023 ambulatory Leo J Buddy PT Work Phone: [facility] Comment on above: Acute pain of right shoulder (Primary Dx); Shoulder stiffness, right Start: 12-16-2023 End: 12-16-2023 Bamboo flowsheet Jesenia Jorge MANUFACTURER'S SERVICE REPRESENTATIVE Work Phone: [facility] Start: 12-16-2023 End: 12-16-2023 Bamboo flowsheet Jesenia Jorge MANUFACTURER'S SERVICE REPRESENTATIVE Work Phone: [facility] Start: 12-16-2023 End: 12-16-2023 ambulatory Jesenia Jorge MANUFACTURER'S SERVICE REPRESENTATIVE Work Phone: [facility] Comment on above: Acute pain of right shoulder (Primary Dx); Shoulder stiffness, right Start: 12-15-2023 End: 12-15-2023 Refill Dana Tapia CALENDER ROLL OPERATOR Work Phone: [facility] Comment on above: Arthropathy, unspeci fied; Unspecified osteoarthritis, unspecified site Start: 12-14-2023 End: 12-14-2023 Bamboo flowsheet Leo J Buddy PT Work Phone: [facility] Start: 12-14-2023 End: 12-14-2023 Bamboo flowsheet Leo J Buddy PT Work Phone: [facility] Start: 12-14-2023 End: 12-14-2023 ambulatory Leo Miguelina Buddy PT Work Phone: [facility] Comment on above: Acute pain of right shoulder (Primary Dx); Shoulder stiffness, right Start: 12-12-2023 End: 12-12-2023 ambulatory [facility] Work Phone: Start: 12-12-2023 End: 12-12-2023 Patient encounter procedure [facility] Nephrology Main Work Phone: Start: 12-12-2023 End: 12-12-2023 Bamboo flowsheet May Pulido CALENDER ROLL OPERATOR Work Phone: [facility] Start: 12-12-2023 End: 12-12-2023 Bamboo flowsheet May Pulido CALENDER ROLL OPERATOR Work Phone: [facility] Start: 12-12-2023 End: 12-12-2023 Postop follow up visit related to original px May Pulido CALENDER ROLL OPERATOR Work Phone: [facility] Comment on above: Status post right ro tator cuff repair (Primary Dx) Start: 12-12-2023 End: 12-12-2023 ambulatory MAY PULIDO Not Available Start: 12-09-2023 End: 12-09-2023 Bamboo flowsheet Jesenia Jorge MANUFACTURER'S SERVICE REPRESENTATIVE Work Phone: [facility] Start: 12-09-2023 End: 12-09-2023 Bamboo flowsheet Jesenia Jorge MANUFACTURER'S SERVICE REPRESENTATIVE Work Phone: [facility] Start: 12-09-2023 End: 12-09-2023 ambulatory Jesenia Jorge MANUFACTURER'S SERVICE REPRESENTATIVE Work Phone: [facility] Comment on above: Acute pain of right shoulder (Primary Dx); Shoulder stiffness, right Start: 12-07-2023 End: 12-08-2023 ambulatory Jesenia Jorge MANUFACTURER'S SERVICE REPRESENTATIVE Work Phone: [facility] Comment on above: Acute pain of right shoulder (Primary Dx); Shoulder stiffness, right Start: 12-06-2023 End: 12-06-2023 Clinisync Result Encounter Generic External Data Provider [facility] External Department Unsolicited Start: 12-06-2023 End: 12-06-2023 Clinisync Result Encounter Generic External Data Provider [facility] External Department Unsolicited Start: 12-06-2023 Non-patient / Non-visit [facility] Work Phone: Start: 12-02-2023 End: 12-02-2023 Bamboo flowsheet Jesenia Jorge MANUFACTURER'S SERVICE REPRESENTATIVE Work Phone: [facility] Start: 12-02-2023 End: 12-02-2023 Bamboo flowsheet Jesenia Jorge MANUFACTURER'S SERVICE REPRESENTATIVE Work Phone: [facility] Start: 12-02-2023 End: 12-02-2023 ambulatory Jesenia Jorge MANUFACTURER'S SERVICE REPRESENTATIVE Work Phone: [facility] Comment on above: Acute pain of right shoulder (Primary Dx); Shoulder stiffness, right Start: 11-30-2023 End: 11-30-2023 Bamboo flowsheet Leo Binghamgs PT Work Phone: [facility] Start: 11-30-2023 End: 11-30-2023 Bamboo flowsheet Leo Miguelina Buddy PT Work Phone: [facility] Start: 11-30-2023 End: 11-30-2023 ambulatory Leo J Buddy PT Work Phone: [facility] Comment on above: Acute pain of right shoulder (Primary Dx); Shoulder stiffness, right Start: 11-28-2023 End: 11-28-2023 Bamboo flowsheet Dana Tapia CALENDER ROLL OPERATOR Work Phone: [facility] Start: 11-28-2023 End: 11-28-2023 Bamboo flowsheet Dana Tapia CALENDER ROLL OPERATOR Work Phone: [facility] Start: 11-28-2023 End: 11-28-2023 Office outpatient visit 25 minutes Dana Tapia CALENDER ROLL OPERATOR Work Phone: [facility] Comment on above: Essential (primary) hypertension ([facility]/HCC) (Primary Dx); Fibromyalgia; 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 elsewhere ([facility]); ODALYS (generalized anxiety disorder) ([facility]); Type 2 diabetes mellitus without complication, without long-term current use of insulin ([facility]) Start: 11-28-2023 End: 11-28-2023 ambulatory DANA SAMPSONARAM Not Available Start: 11-24-2023 End: 11-24-2023 Bamboo flowsheet Leo Goodwin PT Work Phone: [facility] Start: 11-24-2023 End: 11-24-2023 Bamboo flowsheet Leo Goodwin PT Work Phone: [facility] Start: 11-24-2023 End: 11-24-2023 ambulatory LEO GOODWIN [facility] Comment on above: Acute pain of right shoulder (Primary Dx); Shoulder stiffness, right Start: 11-14-2023 End: 11-14-2023 Bamboo flowsheet May Pulido CALENDER ROLL OPERATOR Work Phone: [facility] ORTHOPAEDICS Start: 11-14-2023 End: 11-14-2023 Bamboo flowsheet May Pulido CALENDER ROLL OPERATOR Work Phone: [facility] ORTHOP[facility]ICS Start: 11-14-2023 End: 11-14-2023 Postop follow up visit related to original px May Pulido CALENDER ROLL OPERATOR Work Phone: [facility] ORTHOPAEDICS Comment on above: Status post right ro tator cuff repair Start: 11-14-2023 End: 11-14-2023 ambulatory MAY PULIDO Not Available Start: 10-17-2023 End: 10-17-2023 ambulatory MAY PULIDO Not Available Start: 10-13-2023 End: 10-13-2023 ambulatory CARLOS BAER Not Available Start: 10-05-2023 End: 10-05-2023 Evaluation and management of inpatient ANDRÉS VAZQUEZ [facility] Start: 10-05-2023 End: 10-05-2023 Evaluation and management of inpatient [facility] Start: 10-04-2023 End: 10-04-2023 ambulatory [facility] Work Phone: Start: 10-04-2023 End: 10-04-2023 Patient encounter procedure [facility] Work Phone: Start: 09-28-2023 Preoperative state Leo Dmitri s PT Work Phone: [facility] Healthcare Start: 09-28-2023 End: 09-28-2023 ambulatory DANA TAPIA Not Available Start: 09-27-2023 End: 09-27-2023 ambulatory [facility] Start: 09-27-2023 [facility] Start: 09-22-2023 End: 09-22-2023 ambulatory JEFFREY SCHILLING Not Available Start: 09-14-2023 End: 09-14-2023 ambulatory MAY PULIDO Not Available Start: 09-12-2023 End: 09-12-2023 ambulatory MAY PULIDO Not Available Start: 07-12-2023 End: 07-12-2023 ambulatory CARLOS BAER Not Available Start: 07-07-2023 End: 07-07-2023 ambulatory MAY PULIDO Not Available Start: 06-23-2023 End: 06-23-2023 ambulatory MAY PULIDO Not Available Start: 06-20-2023 End: 06-20-2023 ambulatory DANATaco TAPIA Not Available Start: 06-13-2023 End: 06-13-2023 ambulatory PHYSICIAN NO [facility] Work Phone: Start: 06-13-2023 End: 06-13-2023 Patient encounter procedure PHYSICIAN NO [facility] Physician [facility] Nephrology Work Phone: Start: 06-07-2023 Non-patient / Non-visit PHYSICIAN NO [facility] Physician [facility] Work Phone: Start: 05-11-2023 Non-patient / Non-visit PHYSICIAN NO [facility] Work Phone: Start: 04-13-2023 End: 04-13-2023 Patient encounter procedure Carlos Baer DPM Work Phone: [facility] Comment on above: Dermatophytosis of n ail (Primary Dx); Dystrophic nail; Pain around toenail, right foot; Pain around toenail, left foot Start: 04-13-2023 End: 04-13-2023 ambulatory CARLOS BAER Not Available Start: 04-13-2023 Bamboo flowsheet Carlos London er DPM Work Phone: [facility] Start: 04-13-2023 Bamboo flowsheet Carlos London er DPM Work Phone: [facility] Start: 03-31-2023 End: 03-31-2023 Discharged Recurring PHYSICIAN NO [facility] Work Phone: Start: 03-31-2023 End: 03-31-2023 ambulatory PHYSICIAN NO [facility] Work Phone: Start: 03-31-2023 End: 03-31-2023 Patient encounter procedure PHYSICIAN NO [facility]- Start: 03-28-2023 End: 03-28-2023 ambulatory DANA TAPIA Not Available Start: 03-28-2023 Patient encounter procedure Carlos Baer DPM Work Phone: [facility] Start: 03-25-2023 End: 03-25-2023 ambulatory [facility] Start: 03-03-2023 End: 03-03-2023 ambulatory Eboni Buck Other [facility] [employer] Other Start: 03-03-2023 Telephone encounter Eboni Buck [facility] Nephrology Start: 12-14-2022 End: 12-14-2022 ambulatory Eboni Buck Other [employer] Other Start: 12-14-2022 Office outpatient vi sit 15 minutes Eboni Buck [facility] Start: 09-29-2022 (DM) Diabetes Tondra Mapus [facility] Start: 09-29-2022 End: 09-29-2022 ambulatory Tondra Mapus Other [facility] Other Start: 09-03-2022 End: 09-03-2022 ambulatory Tondra Mapus Other [facility] Other Start: 09-03-2022 Telephone encounter Tondra Mapus [facility] Start: 06-08-2022 End: 06-08-2022 ambulatory Eboni Buck Other [employer] Other Start: 06-08-2022 Office outpatient vi sit 25 minutes Eboni Buck [facility] Start: 06-02-2022 End: 06-03-2022 ambulatory EBONI BUCK Facility:[facility] Start: 04-01-2022 End: 04-01-2022 ambulatory Tondra Mapus Other [facility] Other Start: 04-01-2022 Telephone encounter Tondra Mapus [facility] Start: 03-31-2022 (DM) Diabetes Tondra Mapus [facility] Start: 03-31-2022 End: 03-31-2022 ambulatory Tondra Mapus Other [facility] Other Start: 03-31-2022 Telephone encounter Eboni Buck [facility] Start: 03-30-2022 End: 03-31-2022 ambulatory TONDRA MAPUS Facility:[facility] Start: 02-05-2022 End: 02-06-2022 ambulatory RESOURCE MANAGER FORESTER DANATaco TAPIA Facility:[facility] Start: 01-14-2022 End: 01-14-2022 ambulatory Eboni Buck Other [facility] Other Start: 01-14-2022 Telephone encounter Eboni Buck [facility] Start: 12-29-2021 End: 12-29-2021 ambulatory Eboni Buck Other [facility] Other Start: 12-29-2021 Telephone encounter Eboni Buck [facility] Start: 12-22-2021 End: 12-23-2021 ambulatory EBONI BUCK Facility:[facility] Start: 12-21-2021 (DM) Diabetes Tondra Mapus [facility] Start: 12-21-2021 End: 12-21-2021 ambulatory Tondra Mapus Other [employer] Other Start: 12-14-2021 End: 12-14-2021 ambulatory Eboni Buck Other [employer] Other Start: 12-14-2021 Office outpatient vi sit 25 minutes Eboni Buck [facility] Start: 12-04-2021 End: 12-05-2021 ambulatory TONDRA MAPUS Facility:[facility] Start: 09-23-2021 End: 09-23-2021 ambulatory Kristin Janae Other [facility] Other Start: 09-23-2021 Office outpatient vi sit 15 minutes Kristin Janae [facility] [place] Start: 06-23-2021 (DM) Diabetes Tondra Mapus [facility] Start: 06-23-2021 End: 06-23-2021 ambulatory Tondra Mapus Other [employer] Other Start: 06-18-2021 End: 06-18-2021 ambulatory RESOURCE MANAGER FORESTER DANA WILLIE Facility:[facility] Start: 06-17-2021 End: 06-17-2021 ambulatory RESOURCE MANAGER FORESTER DANA TAPIA [facility] [employer] Other Start: 06-17-2021 Office outpatient vi sit 25 minutes Eboni Buck [facility] Start: 06-12-2021 End: 06-13-2021 ambulatory EBONI BUCK Facility: Start: 06-09-2021 End: 06-09-2021 ambulatory Tondra Talavera Other [employer] Other Start: 06-09-2021 Telephone encounter Bernardino Duggan [facility] Start: 12-23-2020 Office outpatient vi sit 15 minutes Eboni Buck [facility] Start: 12-17-2020 (DM) Diabetes Bernardino Talavera [facility] Start: 12-05-2020 ([facility] C Vac) [facility] Co vid Vaccine Natalee Camacoh [facility] Start: 09-21-2016 End: 09-22-2016 Ambulatory JACIEL SANTOS Facility:[facility] Procedures Date Procedure Procedure Detail Performing Clinician Start: 12-06-2023 [facility] CBC WITH PLATELET NO DIFFERENTIAL Generic External Data Provider History of repair of musculotendinous cuff of shoulder Status post right rotator cuff repair May Pulido CALENDER ROLL OPERATOR Work Phone: History of repair of musculotendinous cuff of shoulder Status post right rotator cuff repair May Pulido CALENDER ROLL OPERATOR Work Phone: History of repair of musculotendinous cuff of shoulder Status post right rotator cuff repair Jeffrey Schilling DO Work Phone: History of repair of musculotendinous cuff of shoulder Status post right rotator cuff repair May Pulido CALENDER ROLL OPERATOR Work Phone: Plan of Treatment Date Care Activity Detail Author Start: 01-18-2025 Tobacco Screening Tobacco Screening [facility] Start: 12-10-2024 Glaucoma screening Diabetes: R etinopathy Screening [facility] Start: 10-04-2024 Tobacco Screening Tobacco Screening [facility] Start: 06-06-2024 Urine screening for protein Diabetes: Urine Protein Screening [facility] Start: 04-17-2024 End: 04-17-2024 Patient encounter procedure 04/17/2024 2:15 PM EST Procedure Visit [facility] [address] [place] [phone] Carlos Baer, DENIA [address] [place] [address] [facility] Start: 04-05-2024 Hemoglobin A1c measurement Diabetes: Hemoglobin A1C [facility] Start: 03-28-2024 Medicare Annual Wellness (AWV) Medicare Annual Wellness (AWV) [facility] Start: 03-14-2024 End: 03-14-2024 Patient encounter procedure 03/14/2024 10:15 AM EST Office Visit [facility] [address] [place] [phone] Paco Scott, DO [address] [facility] [place] [address] [facility] Start: 03-05-2024 End: 03-05-2024 Patient encounter procedure 03/05/2024 2:00 PM EST Office Visit [facility] [address] [place] [phone] Dana Tapia, CHENTE [address] [place] [phone] [facility] Start: 02-20-2024 End: 02-20-2024 Patient encounter procedure 02/20/2024 1:40 PM EST Office Visit [facility] [address] [place] [address] Dana Tapia, CHENTE [address] [place] [phone] [facility] Start: 02-06-2024 End: 02-06-2024 Patient encounter procedure 02/06/2024 4:00 PM EST Office Visit [facility] [address] [place] [address] Dana Tapia, CHENTE [address] [place] [address] Arrived [facility] Comment on above: Arrived Start: 02-06-2024 End: 04-08-2025 MG Breast - bilateral Screening Bilateral screening mammogram Imaging Routine Encounter for screening mammogram for malignant neoplasm of breast Expected: 02/06/2024 (Approximate), Expires: 04/08/2025 [facility] Work Phone: Comment on above: Expected: 02/06/2024 (Approximate), Expires: 04/08/2025 Start: 2024 End: 2024 ambulatory 2024 7:00 AM EST Treatment [facility] [address] [place] [phone] Leo Goodwin, PT [address] [place] [address] [facility] Start: 01-29-2024 COVID-19 Vaccine ( season) COVID-19 Vaccine ( season) [facility] Start: 01-25-2024 End: 01-25-2024 ambulatory 01/25/2024 7:00 AM EST Treatment [facility] [address] [place] [phone] Jesenia Jorge, MANUFACTURER'S SERVICE REPRESENTATIVE [address] [place] [address] [facility] Start: 01-23-2024 End: 01-23-2024 ambulatory 01/23/2024 7:00 AM EST Treatment [facility] [address] [place] [phone] Jesenia Jorge, MANUFACTURER'S SERVICE REPRESENTATIVE [address] [place] [address] [facility] Start: 01-20-2024 End: 01-20-2024 ambulatory 01/20/2024 7:00 AM EST Treatment [facility] [address] [place] [phone] Jesenia Jorge, MANUFACTURER'S SERVICE REPRESENTATIVE [address] [place] [address] [facility] Start: 01-19-2024 End: 01-18-2025 XR Shoulder - right 2 Views [facility] Work Phone: Comment on above: Expected: 01/19/2024 , Expires: 01/18/2025 Start: 01-17-2024 End: 01-17-2024 Patient encounter procedure 01/17/2024 9:30 AM EST Office Visit [facility] [address] [facility] [address] [place] [address] Jeffrey Schilling DO [address] [facility] [address] [place] [address] [facility] Start: 01-16-2024 End: 01-16-2024 Patient encounter procedure [facility] Comment on above: Arrived Start: 01-16-2024 End: 01-16-2024 ambulatory 01/16/2024 7:00 AM EST Treatment [facility] [address] [place] [phone] Jesenia Jorge, MANUFACTURER'S SERVICE REPRESENTATIVE [address] [place] [address] [facility] Start: 01-13-2024 End: 01-13-2024 ambulatory 01/13/2024 7:00 AM EST Treatment [facility] [address] [place] [phone] Leo Goodwin, PT [address] [place] [address] [facility] Start: 01-12-2024 End: 01-12-2024 Patient encounter procedure 01/12/2024 9:15 AM EST Office Visit [facility] [address] [place] [phone] Jeffrey Schilling, DO [address] [place] [address] [facility] Start: 01-11-2024 End: 01-11-2024 Patient encounter procedure 01/11/2024 2:20 PM EST Office Visit [facility] [address] [place] [address] Dana Tapia, CALENDER ROLL OPERATOR [address] [place] [address] [facility] Start: 01-10-2024 End: 01-10-2024 Patient encounter procedure 01/10/2024 11:45 AM EST Office Visit [facility] [address] [place] [address] Jeffrey Schilling, DO [address] [place] [address] [facility] Start: 01-09-2024 End: 01-09-2024 ambulatory 01/09/2024 7:00 AM EST Treatment [facility] [address] [place] [phone] Jesenia Jorge, MANUFACTURER'S SERVICE REPRESENTATIVE [address] [place] [address] [facility] Start: 01-06-2024 End: 01-06-2024 ambulatory 01/06/2024 7:30 AM EST Treatment [facility] [address] [place] [phone] Jesenia Jorge, MANUFACTURER'S SERVICE REPRESENTATIVE [address] [place] [address] [facility] Start: 01-05-2024 End: 01-05-2024 Patient encounter procedure 01/05/2024 9:45 AM EST Office Visit [facility] [address] [place] [phone] May Pulido, CALENDER ROLL OPERATOR [address] [place] [address] Arrived [facility] Comment on above: Arrived Start: 01-02-2024 End: 01-02-2024 ambulatory 01/02/2024 7:30 AM EST Treatment [facility] [address] [place] [phone] Leo Goodwin, PT [address] [place] [address] [facility] Start: 12-30-2023 End: 12-30-2023 ambulatory [facility] Start: 12-28-2023 End: 12-28-2023 ambulatory 12/28/2023 7:00 AM EDT Treatment [facility] [address] [place] [phone] Jesenia Jorge, MANUFACTURER'S SERVICE REPRESENTATIVE [address] [place] [address] [facility] Start: 12-23-2023 End: 12-23-2023 ambulatory 12/23/2023 7:30 AM EDT Treatment [facility] [address] [place] [phone] Jesenia Jorge, MANUFACTURER'S SERVICE REPRESENTATIVE [address] [place] [address] [facility] Start: 12-19-2023 End: 12-19-2023 ambulatory 12/19/2023 7:00 AM EDT Treatment [facility] [address] [place] [phone] Leo Goodwin, PT [address] [place] [address] [facility] Start: 12-16-2023 End: 12-16-2023 ambulatory 12/16/2023 8:00 AM EDT Treatment [facility] [address] [place] [phone] Jesenia Jorge, MANUFACTURER'S SERVICE REPRESENTATIVE [address] [place] [address] [facility] Start: 12-14-2023 End: 12-14-2023 ambulatory 12/14/2023 7:30 AM EDT Treatment [facility] [address] [place] [phone] Leo Goodwin, PT [address] [place] [address] [facility] Start: 12-12-2023 End: 12-12-2023 Patient encounter procedure [facility] Comment on above: Arrived Start: 12-09-2023 End: 12-09-2023 ambulatory 12/09/2023 7:30 AM EDT Treatment [facility] [address] [place] [phone] Jesenia Jorge, MANUFACTURER'S SERVICE REPRESENTATIVE [address] [place] [address] [facility] Start: 12-07-2023 End: 12-07-2023 ambulatory 12/07/2023 2:00 PM EDT Treatment [facility] [address] [place] [phone] Leo Goodwin, PT [address] [place] [address] [facility] Start: 12-02-2023 End: 12-02-2023 ambulatory [facility] Comment on above: Arrived Start: 11-30-2023 End: 11-30-2023 ambulatory [facility] Comment on above: Arrived Start: 11-28-2023 End: 11-28-2023 Patient encounter procedure [facility] Comment on above: Arrived Start: 11-24-2023 End: 11-24-2023 ambulatory 11/24/2023 12:30 PM EDT Evaluation [facility] [address] [facility] [address] Leo Goodwin, PT [address] [place] [address] Status post right rotator cuff repair [facility] Comment on above: Status post right ro tator cuff repair Start: 11-14-2023 End: 11-14-2023 Patient encounter procedure 11/14/2023 8:30 AM EDT Office Visit [facility] [address] [place] [address] May Pulido, CALENDER ROLL OPERATOR [address] [place] [address] Arrived [facility] Comment on above: Arrived Start: 10-30-2023 COVID-19 Vaccine ( season) COVID-19 Vaccine ( season) [facility] Start: 10-30-2023 Influenza vaccination P [facility] Start: 09-29-2023 Hemoglobin A1c measurement Diabetes: Hemoglobin A1C [facility] Start: 09-26-2023 End: 09-26-2023 Patient encounter procedure 09/26/2023 2:20 PM EDT Office Visit [facility] [address] [place] [address] Dana Tapia NP [address] [place] [address] [facility] Start: 07-12-2023 End: 07-12-2023 Patient encounter procedure 07/12/2023 2:15 PM EDT Procedure Visit [facility] [address] [place] [phone] Carlos Baer DPM [address] [place] [address] [facility] Start: 06-29-2023 Hemoglobin A1c measurement Diabetes: Hemoglobin A1C [facility] Start: 04-13-2023 End: 04-13-2023 Patient encounter procedure 04/13/2023 2:15 PM EST Procedure Visit [facility] [address] [place] [phone] Carlos Baer DPM [address] [place], [place] [phone] Arrived [facility] Comment on above: Arrived Start: 01-31-2012 Fall Risk Screening Fall Risk Screen [facility] Start: 1966 DTaP,Tdap and Td Vaccines (1 - Tdap) DTaP,Tdap and Td Vaccines (1 - Tdap) [facility] Start: 1959 Depression Screening Depression Scre [facility] Arthroplasty glenohumeral joint total shoulder REVERSE ARTHROPLASTY TOTAL SHOULDER Rotator cuff arthropathy of right shoulder [facility] SURGERY Patient Education Foot Care for Diabetics [facility] Work Phone: Renal function 1999 panel - Serum or Plasma [facility] Renal function 1999 panel - Serum or Plasma [facility] Immunizations Immunization Date Immunization Notes Care Provider Fa cili 12-23-2023 RSV, recombinant, protein subunit RSVpreF, adjuvant reconstitu, 120mcg/0.5mL, PF (Arexvy) Carlos Baer DPTamara Work Phone: [facility] 11-22-2023 Seasonal trivalent influenza vaccine, adjuvanted, preservative free Leo Goodwni PT Work Phone: [facility] 12-04-2022 Influenza, High-dose Seasonal, Quadrivalent, Preservative Free Leo Buddy PT Work Phone: [facility] 12-04-2022 influenza virus vacc ine, unspecified formulation May Pulido CALENDER ROLL OPERATOR Work Phone: [facility] 03-19-2022 zoster vaccine recombinant Leo Ubddy PT Work Phone: [facility] 12-06-2021 Influenza, High-dose Seasonal, Quadrivalent, Preservative Free Leo Buddy PT Work Phone: [facility] 11-10-2021 zoster vaccine recombinant Leo Buddy PT Work Phone: [facility] 12-05-2020 COVID-19 Pfizer Natalee Fitt Other [facility] 11-30-2020 Influenza, High-dose Seasonal, Quadrivalent, Preservative Free Leo Buddy PT Work Phone: [facility] 04-25-2020 COVID-19 Vaccine Pfi zer - Documentation Purposes Only Natalee Fitt Other [facility] 04-03-2020 COVID-19 Vaccine Pfi zer - Documentation Purposes Only Natalee Fitt Other [facility] 11-12-2019 unknown vaccine or immune globulin Leo Buddy PT Work Phone: [facility] 12-30-2018 influenza, high dose seasonal, preservative-free Leo Buddy PT Work Phone: [facility] 11-17-2017 influenza, high dose seasonal, preservative-free Leo Buddy PT Work Phone: [facility] 12-07-2016 influenza, high dose seasonal, preservative-free Leo Buddy PT Work Phone: [facility] 01-27-2016 influenza, seasonal, injectable, preservative free Leo Buddy PT Work Phone: [facility] 01-27-2016 pneumococcal conjuga te vaccine, 13 valent Leo Buddy PT Work Phone: [facility] 12-03-2014 influenza, seasonal, injectable, preservative free Leo Buddy PT Work Phone: [facility] 11-23-2013 influenza, seasonal, injectable, preservative free Leo Buddy PT Work Phone: [facility] 04-14-2012 pneumococcal polysaccharide vaccine, 23 valent Leo Buddy PT Work Phone: [facility] Healthcare Payers Date Payer Category Payer Private Health Insurance [employer] [place] [id number] 2022 Unknown [facility] [id number] [id number] 2022-Present [address] [place] [address] [id number] 2018 Self-pay [id number] 2016 Managed Care Other (unspecified) [facility] [id number] 2012 Medicare [id number] .[id number] 1959 Medicare [id number] 2.16.840.1.943563.19 1959 Unknown [id number] 2.16.840.1.567012.19 1947 Unknown [id number] 2.16.840.1.930777.3.579.2 .593 1947 Unknown [id number] 2.16.840.1.515340.3.579.2 .593 1947 Unknown [id number] 2.16.840.1.885252.3.579.2 .593 1947 Unknown [id number] 2.16.840.1.174584.3.579.2 .593 1947 Unknown [id number] 2.16.840.1.492576.3.579.2 .593 1947 Unknown [id number] 2.16.840.1.604347.3.579.2 .593 1947 Unknown [id number] 2.16.840.1.841377.3.579.2 .593 1947 Unknown [id number] 2.16.840.1.771324.3.579.2 .593 1947 Unknown [id number] 2.16.840.1.291608.3.579.2 .593 1947 Unknown [id number] 2.16.840.1.233719.3.579.2 .1286 1947 Unknown [id number] 2.16.840.1.565683.3.579.2 .1286 1947 Unknown [id number] 2.16.840.1.306492.3.579.2 .1285 1947 Unknown [id number] 2.16.840.1.602119.3.579.2 .1285 1947 Unknown [id number] 2.16.840.1.841237.3.579.2 .1285 1947 Unknown [id number] 2.16.840.1.266435.3.579.2 .1285 1947 Unknown [id number] 2.16.840.1.019349.3.579.2 .1285 1947 Unknown [id number] 2.16.840.1.545311.3.579.2 .1285 1947 Unknown [id number] 2.16.840.1.185197.3.579.2 .1285 1947 Unknown [id number] 2.16.840.1.851614.3.579.2 .1285 1947 Unknown [id number] 2.16.840.1.029828.3.579.2 .1285 1947 Unknown [id number] 2.16.840.1.640328.3.579.2 .1258 1947 Unknown [id number] 2.16.840.1.840929.3.579.2 .1258 1947 Unknown [id number] 2.16.840.1.195831.3.579.2 .9 1947 Unknown [id number] 2.16.840.1.098126.3.579.2 .1258 1947 Unknown [id number] 2.16.840.1.769384.3.579.2 .9 1947 Unknown [id number] 2.16.840.1.610007.3.579.2 .1258 1947 Unknown [id number] 2.16.840.1.189747.3.579.2 .1258 1947 Unknown [id number] 2.16.840.1.663097.3.579.2 .1258 1947 Unknown [id number] 2.16.840.1.606888.3.579.2 .1258 1947 Unknown [id number] 2.16.840.1.655523.3.579.2 .1258 1947 Unknown [id number] 2.16.840.1.552986.3.579.2 .1258 1947 Unknown [id number] 2.16.840.1.164152.3.579.2 .1258 1947 Unknown [id number] 2.16.840.1.280295.3.579.2 .1258 1947 Unknown [id number] 2.16.840.1.403445.3.579.2 .1258 1947 Unknown [id number] 2.16.840.1.265504.3.579.2 .1258 1947 Unknown [id number] 2.16.840.1.398147.3.579.2 .1258 1947 Unknown [id number] 2.16.840.1.336358.3.579.2 .1258 1947 Unknown [id number] 2.16.840.1.224839.3.579.2 .1258 1947 Unknown [id number] 2.16.840.1.304839.3.579.2 .1258 1947 Unknown [id number] 2.16.840.1.600232.3.579.2 .1258 1947 Unknown [id number] 2.16.840.1.975605.3.579.2 .1258 1947 Unknown [id number] 2.16.840.1.315244.3.579.2 .1259 1947 Unknown [id number] 2.16.840.1.154273.3.579.2 .1258 1947 Unknown [id number] 2.16.840.1.366539.3.579.2 .9 1947 Unknown [id number] 2.16.840.1.291580.3.579.2 .1258 1947 Unknown [id number] 2.16.840.1.976400.3.579.2 .1258 1947 Unknown [id number] 2.16.840.1.992174.3.579.2 .1258 1947 Unknown [id number] 2.16.840.1.371574.3.579.2 .1258 1947 Unknown [id number] 2.16.840.1.189457.3.579.2 .1258 1947 Unknown [id number] 2.16.840.1.108554.3.579.2 .1258 1947 Unknown [id number] 2.16.840.1.036534.3.579.2 .1258 1947 Unknown [id number] 2.16.840.1.119111.3.579.2 .1258 1947 Unknown [id number] 2.16.840.1.164443.3.579.2 .1258 1947 Unknown [id number] 2.16.840.1.129300.3.579.2 .1258 1947 Unknown [id number] 2.16.840.1.007632.3.579.2 .1259 Medicare [id number] Unknown [id number] 2.16.840.1.519425.3.579.2 .531 Unknown [id number] 2.16.840.1.653247.3.579.2 .531 Social History Date Type Detail Facility Unknown if ever smoked ethority Other Start: 03-28-2023 End: 09-28-2023 Sex Assigned [...] to any clubs or organizations such as orthodox groups, unions, fraSepaton or athletic groups, or school groups? Yes [...] Start: 1945 Sex Assigned At Female F [facility] Start: 11-14-2023 End: 11-28-2023 Alcoholic beverage intake Lifetime non-drinker (finding) [facility] Start: 09-20-2023 Gender identity Identifies as female gender (finding) [facility] Start: 10-06-2023 End: 01-19-2024 Alcoholic beverage intake Current non-drinker of alcohol (finding) [facility] Start: 10-03-2014 Sex Female (finding) [facility] NEGATED: Highlighted rowStart: NINF History of tobacco use Passive smoker [facility] Medical Equipment Procedure Code Equipment Code Equipment Origin al Text Equipment Identifier Dates [id number] Start: 06-28-2022 Healicoil Regene sorb 4.75mm Suture [place] [id number] Start: 10-05-2023 Healicoil Regene sorb 4.75mm Suture [place] [id number] Start: 10-05-2023 Healicoil Regene sorb 4.75 Suture [place] [id number] Start: 10-05-2023 Healicoil Knotle ss Regenesorb Suture [place] [id number] Start: 10-05-2023 Healicoil Knotle ss Regenesorb Suture [place] [id number] Start: 10-05-2023 Lens Iol Ultrase rt 18.0d - [id number] - [id number] Start: 04-04-2018 Lens Iol Ultrase rt 17.5d - [id number] - [id number] Start: 04-18-2018 Isten Trab Mcro Byps - [id number] - [id number] Start: 04-04-2018 Isten Trab Mcro Byps - [id number] - [id number] Start: 04-18-2018 Clinical Notes 12-05-2020 to 02-06-2024 Dana Tapia NP - 02/06/2024 4:25 PM Ja Tapia NP - 02/06/2024 4:23 PM Ja Tapia NP - 02/06/2024 4:23 PM VIPULMBJOSÉ HARDEN - 02/06/2024 4:00 PM ESTPatient Instructions Note Date & Type Note Facility 02-06-2024 History of Present illness Narrative Associated Problem(s): Acute non-recurrent pansinusitis Finish atb OTC sinus meds for HBP Fluids, rest, fu if not better Associated Problem(s): Essential (primary) hypertension (CMS/HCC) Stable on current meds Associated Problem(s): Class 2 severe obesity due to excess calories with serious comorbidity and body mass index (BMI) of 36.0 to 36.9 in adult ([facility]) Discussed with patient their BMI (actual, verses recommended). We have also discussed lifestyle modifications: attempts to perform physical activity as chronic conditions allow, also to monitor dietary intake: increasing protein/fruits/veggies and lowering carb intake (unless contraindicated). Limit sodas, juices, and sugary drinks. Also discussed oral medications that can be utilized for weight loss, as well as surgical options for weight loss. Pt has had symptoms that started Landon night with a sore throat, drainage, coughing, headaches, sinus pressure, teeth pain, swollen glands, hot and cold, and fatigue. Images from the original note were not included. Ashley Olson is a 79 y.o. female presents with chief complaint of No chief complaint on file. HPI: Sinusitis This is a new problem. The current episode started in the past 7 days. The problem has been gradually worsening since onset. There has been no fever. The pain is moderate. Associated symptoms include congestion, coughing (occ worse at HS when lying down), headaches, sinus pressure, sneezing, a sore throat and swollen glands. Pertinent negatives include no chills, diaphoresis, ear pain, hoarse voice, neck pain or shortness of breath. Past treatments include nothing. The treatment provided no relief. SUBJECTIVE: MEDICATIONS: Current Outpatient Medications Medication Instructions alendronate (FOSAMAX) 70 mg, Oral, Every 7 days, Take in the morning with a full glass of water, on an empty stomach, and do not take anything else by mouth or lie down for the next 30 min. amLODIPine (NORVASC) 5 mg, Oral, Daily Ascorbic Acid (vitamin C) 1000 MG tablet Every 24 hours aspirin 81 mg, Daily atorvastatin (LIPITOR) 20 mg, Oral, Every morning Calcium Carbonate-Vitamin D (CALTRATE 600+D PO) Caltrate 600+D cetirizine (ZyrTEC) 10 MG tablet Every 24 hours cholecalciferol (Vitamin D-3) 50 MCG (2000 UT) tablet Vitamin D3 diphenhydrAMINE-acetaminophen (Tylenol PM) 25-500 MG per tablet 2 tablets, Nightly PRN DULoxetine (CYMBALTA) 30 mg, Oral, Daily, Do not crush or chew. Farxiga 5 mg, Daily ferrous sulfate 325 (65 Fe) MG tablet 1 tablet, Every other day fish oil-omega-3 fatty acids 1000 MG capsule Twice daily gabapentin (NEURONTIN) 100 mg, Oral, Daily latanoprost (Xalatan) 0.005 % ophthalmic solution INSTILL 1 DROP INTO BOTH EYES EVERY EVENING DIRECTED losartan (COZAAR) 100 mg, Oral, Every morning magnesium 250 MG tablet Every 24 hours melatonin tablet Nightly meloxicam (MOBIC) 15 mg, Oral, Daily Multiple Vitamins-Minerals (One Daily For Women 50+ Adv) tablet as directed Orally omeprazole (PRILOSEC) 20 mg, Oral, Daily before breakfast OneTouch Ultra test strip 1 each, As needed ALLERGIES: Allergies Allergen Reactions Metformin Other Reaction(s): g/i s/e Other Unknown Semaglutide Diarrhea Soy Allergy Unknown Wound Dressing Adhesive Unknown Sulfa Antibiotics Hives and Rash REVIEW OF SYMPTOMS: Review of Systems Constitutional: Negative for appetite change, chills, diaphoresis and fever. HENT: Positive for congestion, sinus pressure, sneezing and sore throat. Negative for ear pain and hoarse voice. Eyes: Negative for pain, discharge, redness and visual disturbance. Respiratory: Positive for cough (occ worse at HS when lying down). Negative for shortness of breath and wheezing. Cardiovascular: Negative for chest pain, palpitations and leg swelling. Gastrointestinal: Negative for abdominal pain, blood in stool, constipation, diarrhea, nausea and vomiting. Genitourinary: Negative for difficulty urinating, dysuria and frequency. Musculoskeletal: Positive for arthralgias. Negative for back pain, joint swelling, myalgias and neck pain. Skin: Negative for rash and wound. Neurological: Positive for headaches. Negative for dizziness, tremors, seizures and syncope. Psychiatric/Behavioral: Negative for behavioral problems, self-injury and suicidal ideas. The patient is not nervous/anxious. Hematological: Does not bruise/bleed easily. Endocrine: Negative for polydipsia, polyphagia and polyuria. Allergic/Immunologic: Negative for environmental allergies and food allergies. PAST MEDICAL HISTORY Past Medical History: Diagnosis Date Abnormal mammogram of left breast Age-related osteoporosis without current pathological fracture (CMS/HCC) 02/18/2023 Allergic rhinitis, seasonal Arthritis Bulging lumbar disc Chronic pain CKD (chronic kidney disease) stage 3, GFR 30-59 ml/min (HCC) (CMS/HCC) COVID-19 virus detected DDD (degenerative disc disease), cervical Diabetes (CMS/HCC) Diabetic neuropathy (CMS/HCC) Dyspnea Encounter for screening mammogram for malignant neoplasm of breast 02/07/2023 Fibromyalgia Fracture of radial head, left, closed Granuloma annulare Hip pain, chronic, left Hives Hypercholesterolemia (CMS/HCC) Hyperlipidemia (CMS/HCC) Hypertension (CMS/HCC) Hypertriglyceridemia (CMS/HCC) Insomnia Kidney disease Menopause 02/07/2023 Neoplasm of uncertain behavior of back Obesity with body mass index (BMI) of 30.0 to 39.9 Osteoarthritis Osteopenia Ovarian cancer (CMS/HCC) Pain in both knees Rib pain on right side Right anterior shoulder pain Seborrheic keratosis Past Surgical History: Procedure Laterality Date BLEPHAROPLASTY Bilateral 04/03/2008 BUNIONECTOMY Bilateral CATARACT EXTRACTION Bilateral COLONOSCOPY 11/26/2011 ELBOW SURGERY Left spur removal HAND SURGERY Right thumb repair HERNIA REPAIR HIP SURGERY Right Hip bursectomy. Dr. 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 Mccann OTHER SURGICAL HISTORY 10/03/2018 SK Removal ROTATOR CUFF REPAIR Right 10/05/2023 Dr Schilling TONSILLECTOMY and adenoidectomy TOTAL KNEE ARTHROPLASTY Bilateral 2012,, 2013 family history includes Cancer in her brother, mother, and sister; Diabetes in her brother, father, and mother; Heart disease in her father and mother; Hyperlipidemia in her mother; Hypertension in her father and mother; Kidney disease in her mother; Osteoporosis in her mother. OBJECTIVE: Visit Vitals BP 138/78 (BP Location: Left arm, Patient Position: Sitting, BP Cuff Size: Adult long) Pulse 85 Temp 98.8 F (Temporal) Resp 19 Wt 202 lb 12.8 oz SpO2 98% BMI 35.36 kg/m Smoking Status Never BSA 2.03 m Physical Exam Vitals and nursing note reviewed. Constitutional: General: She is not in acute distress. Appearance: Normal appearance. She is obese. She is ill-appearing (mild). She is not toxic-appearing. HENT: Head: Normocephalic and atraumatic. Right Ear: Tympanic membrane, ear canal and external ear normal. Left Ear: Tympanic membrane, ear canal and external ear normal. Nose: Congestion and rhinorrhea present. Comments: Inflammed, with mod sinus tenderness max and frontal Mouth/Throat: Mouth: Mucous membranes are moist. Pharynx: No oropharyngeal exudate or posterior oropharyngeal erythema. Eyes: Extraocular Movements: Extraocular movements intact. Conjunctiva/sclera: Conjunctivae normal. Cardiovascular: Rate and Rhythm: Normal rate and regular rhythm. Pulses: Normal pulses. Heart sounds: Normal heart sounds. Pulmonary: Effort: Pulmonary effort is normal. Breath sounds: Normal breath sounds. No wheezing or rales. Abdominal: General: Bowel sounds are normal. There is no distension. Palpations: Abdomen is soft. There is no mass. Tenderness: There is no abdominal tenderness. Musculoskeletal: General: Normal range of motion. Cervical back: Normal range of motion and neck supple. Right lower leg: No edema. Left lower leg: No edema. Lymphadenopathy: Cervical: Cervical adenopathy present. Skin: General: Skin is warm and dry. Capillary Refill: Capillary refill takes 2 to 3 seconds. Findings: No rash. Neurological: General: No focal deficit present. Mental Status: She is alert and oriented to person, place, and time. Psychiatric: Mood and Affect: Mood normal. Behavior: Behavior normal. Thought Content: Thought content normal. Judgment: Judgment normal. ASSESSMENT AND PLAN: No follow-ups on file. Problem List Items Addressed This Visit Class 2 severe obesity due to excess calories with serious comorbidity and body mass index (BMI) of 36.0 to 36.9 in adult (CMS/[facility]) - Primary Discussed with patient their BMI (actual, verses recommended). We have also discussed lifestyle modifications: attempts to perform physical activity as chronic conditions allow, also to monitor dietary intake: increasing protein/fruits/veggies and lowering carb intake (unless contraindicated). Limit sodas, juices, and sugary drinks. Also discussed oral medications that can be utilized for weight loss, as well as surgical options for weight loss. Essential (primary) hypertension (CMS/HCC) Stable on current meds Acute non-recurrent pansinusitis Finish atb OTC sinus meds for HBP Fluids, rest, fu if not better Relevant Medications amoxicillin-clavulanate (Augmentin) 875-125 MG tablet documented in this encounter [facility] 02-06-2024 Instructions Dana Tapia NP - 02/06/2024 4:00 PM EST Sinus infection: cool compress to face , antibiotic, fluids, rest Go back to pharmacy and ask for sinus meds for someone with high blood pressure Follow up if not better documented in this encounter [facility] 01-19-2024 History of Present illness Narrative Patient ID: Ashley Olson is a 78 y.o. female. SUBJECTIVE: Patient presents for evaluation right shoulder pain. History significant for undergoing a arthroscopic rotator cuff repair which unfortunately provided minimal improvement in her symptoms. She complains of weakness loss of motion inability to perform overhead activities or lift heavy objects. Symptoms are significantly affecting her ADLs and quality of life. She is here to discuss treatment options. She has tried multiple nonoperative treatment modalities as well as an arthroscopic failed rotator cuff repair. Activity modification home exercise program therapy anti-inflammatories use of the sling ice heat all providing minimal benefit. She denies radicular pain. No numbness tingling fevers chills night sweats. Past Medical History: Diagnosis Date Arthritis Back pain Cataract Chronic kidney disease stage 3 Diabetes mellitus ([facility]) Diabetes mellitus type 2, controlled ([facility]) Fibromyalgia GERD (gastroesophageal reflux disease) HL (hearing loss) Hyperlipidemia Hypertension Obesity Ovarian cancer ([facility]) 1994 PONV (postoperative nausea and vomiting) Visual impairment Past Surgical History: Procedure Laterality Date ARTHROSCOPIC REPAIR ROTATOR CUFF SHOULDER Right 10/05/2023 Performed by Jeffrey Schilling DO at [facility] BLEPHAROPLASTY OPHTH Bilateral 04/03/2019 Performed by Glenna Egan MD at [facility] BREAST BIOPSY Right 06/12/1991 BURSECTOMY Right right hip COLONOSCOPY N/A 02/18/2022 Performed by Paco Ghosh DO at [facility] COLONOSCOPY N/A 12/24/2016 Performed by Kai Blackwell MD at [facility] HYSTERECTOMY Ovarian CA JOINT REPLACEMENT Bilateral knee replacement OVARY SURGERY ovarian cancer PHACO KELMAN I IMPLANT INTRAOCULAR LENS I-STENT Left 04/18/2018 Performed by Glenna Egan MD at [facility] PHACO KELMAN I IMPLANT INTRAOCULAR LENS I-STENT Right 04/04/2018 Performed by Glenna Egan MD at [facility] UMBILICAL HERNIA REPAIR Current Outpatient Medications Medication Sig Dispense Refill alendronate (FOSAMAX) 70 mg tablet Take 1 tablet (70 mg total) by mouth every 7 days. In a.m. with water on empty stomach, nothing else by mouth and remain upright for 30min amLODIPine (NORVASC) 10 mg tablet Take 0.5 tablets (5 mg total) by mouth once daily. 3 ascorbic acid, vitamin C, (VITAMIN C) 1000 mg tablet Take 1 tablet (1,000 mg total) by mouth in the morning. aspirin 81 mg Take 1 tablet (81 mg total) by mouth in the morning. atorvastatin (LIPITOR) 20 mg tablet Take 1 tablet (20 mg total) by mouth in the morning. calcium carbonate-vitamin D3 (OSCAL 500 + D) 500 mg(1,250mg) -200 units per tablet Take 1 tablet by mouth in the morning and 1 tablet in the evening. Take with meals. cetirizine (ZyrTEC) 10 mg tablet TAKE 1 TABLET ONCE A DAY ORALLY 90 DAYS 4 cholecalciferol, vitamin D3, 2,000 units capsule Take 1 capsule (2,000 Units total) by mouth in the morning. diphenhydrAMINE-acetaminophen (TYLENOL PM) 25-500 mg tablet Take 1 tablet by mouth nightly as needed for sleep. DOCOSAHEXANOIC ACID/EPA (FISH OIL ORAL) Take by mouth daily. FARXIGA 5 mg tablet Take 1 tablet (5 mg total) by mouth in the morning. ferrous sulfate 325 (65 FE) mg tablet Take 1 tablet (325 mg total) by mouth in the morning. fluticasone (FLONASE) 50 mcg/actuation nasal spray Administer 1 spray into each nostril as needed. gabapentin (NEURONTIN) 100 mg capsule Take 1 capsule (100 mg total) by mouth once daily. 4 KERENDIA 10 mg tablet Take 1 tablet by mouth in the morning. latanoprost (XALATAN) 0.005 % ophthalmic solution Administer 1 drop to both eyes nightly. losartan (COZAAR) 100 mg tablet Take 1 tablet (100 mg total) by mouth in the morning. MAGNESIUM CARBONATE ORAL Take 250 mg by mouth daily. melatonin tablet Take by mouth nightly. meloxicam (MOBIC) 15 mg tablet Take 1 tablet (15 mg total) by mouth in the morning. kmowioda-urfz-AM-calcium &mins (THERAGRAN-M) 9 mg iron-400 mcg tablet Take 1 tablet by mouth in the morning. omeprazole (PriLOSEC) 20 mg capsule Take 1 capsule (20 mg total) by mouth once daily. 3 sertraline (ZOLOFT) 50 mg tablet Take 1 tablet (50 mg total) by mouth in the morning. No current facility-administered medications for this visit. Allergies Allergen Reactions Soy Nausea Nausea, rash, eye swelling from an excessive soy diet. Adhesive Tape-Silicones Sulfa (Sulfonamide Antibiotics) Hives Social History Occupational History Not on file Tobacco Use Smoking status: Never Smokeless tobacco: Never Vaping Use Vaping status: Never Used Substance and Sexual Activity Alcohol use: No Drug use: No Sexual activity: Defer Partners: Male Ht 160 cm (5' 2.99 ) Wt 89.6 kg (197 lb 9.6 oz) BMI 35.01 kg/m Body mass index is 35.01 kg/m . OBJECTIVE: Right shoulder active range of motion forward flexion to 90 abduction 80 external rotation 35 internal rotation to SI joint. Pain and weakness with isolated cuff and biceps testing. Positive drop arm. Neurovascular intact. IMAGING/LABS: X-rays right shoulder reveal significant rotator cuff tear arthropathy with proximal migration of the humeral head and degenerative changes. Metallic anchors present in the proximal humerus consistent with recent attempted rotator cuff repair ASSESSMENT: Right shoulder end-stage rotator cuff tear arthropathy History of right shoulder arthroscopic rotator cuff repair-failed PLAN: Nonoperative versus operative treatment modalities discussed at length with the patient. She states she has exhausted nonoperative treatment like to proceed with right reverse total shoulder arthroplasty. Risks benefits alternatives and possible complications were reviewed. She signed written informed consent. When she obtains clearance this will be booked at her earliest convenience. DANIEL WOLF MD documented in this encounter [facility] 01-16-2024 History of Present illness Narrative Images from the original note were not included. Subjective Patient ID: Ashley Olson is a 78 y.o. female who presents for Diabetic nail care ( Ashley Olson is a 78 y.o. female who presents for DM Foot Care. PCP: Bernardino Talavera LV: 10/04/2023. A1C: 5.5, BS: 103 SS: 8.5-9). HPI HPI Onychomycosis/Toenail Fungus: established pt presents [...] on clothing etc.. Medications Current Outpatient Medications: meloxicam (Mobic) 15 MG tablet, Take 1 tablet (15 mg) by mouth Daily, Disp: 90 tablet, Rfl: 1 omeprazole (PriLOSEC) [address] capsule, Take 1 capsule (20 mg) by mouth in the morning. Take before meals., Disp: 90 capsule, Rfl: 1 alendronate (Fosamax) 70 MG tablet, Take 1 tablet (70 mg) by mouth every 7 (seven) days for 28 days Take in the morning with a full glass of water, on an empty stomach, and do not take anything else by mouth or lie down for the next 30 min., Disp: 12 tablet, Rfl: 1 amLODIPine (Norvasc) 5 MG tablet, Take 1 tablet (5 mg) by mouth Daily, Disp: 90 tablet, Rfl: 1 Ascorbic Acid (vitamin C) 1000 MG tablet, 1 (one) time each day at the same time., Disp: , Rfl: aspirin 81 MG EC tablet, Take 81 mg by mouth in the morning., Disp: , Rfl: atorvastatin (Lipitor) 20 MG tablet, TAKE 1 TABLET BY MOUTH EVERY DAY IN THE MORNING, Disp: 90 tablet, Rfl: 1 Calcium Carbonate-Vitamin D (CALTRATE 600+D PO), Caltrate 600+D, Disp: , Rfl: cetirizine (ZyrTEC) 10 MG tablet, 1 (one) time each day at the same time., Disp: , Rfl: cholecalciferol (Vitamin D-3) 50 MCG (2000 UT) tablet, Vitamin D3, Disp: , Rfl: diphenhydrAMINE-acetaminophen (Tylenol PM) 25-500 MG per tablet, Take 2 tablets by mouth as needed at bedtime, Disp: , Rfl: DULoxetine (Cymbalta) [address] capsule, Take 1 capsule (30 mg) by mouth Daily Do not crush or chew., Disp: 90 capsule, Rfl: 0 Farxiga 5 MG, Take 5 mg by mouth in the morning., Disp: , Rfl: ferrous sulfate 325 (65 Fe) MG tablet, Take 1 tablet by mouth every other day., Disp: , Rfl: fish oil-omega-3 fatty acids 1000 MG capsule, Twice daily, Disp: , Rfl: gabapentin (Neurontin) 100 MG capsule, Take 1 capsule (100 mg) by mouth Daily, Disp: 90 capsule, Rfl: 1 latanoprost (Xalatan) 0.005 % ophthalmic solution, INSTILL 1 DROP INTO BOTH EYES EVERY EVENING DIRECTED, Disp: , Rfl: losartan (Cozaar) 100 MG tablet, Take 1 tablet (100 mg) by mouth in the morning., Disp: 90 tablet, Rfl: 1 magnesium 250 MG tablet, 1 (one) time each day at the same time., Disp: , Rfl: melatonin tablet, Take by mouth at bedtime., Disp: , Rfl: Multiple Vitamins-Minerals (One Daily For Women 50+ Adv) tablet, as directed Orally, Disp: , Rfl: OneTouch Ultra test strip, 1 each by Other route if needed, Disp: , Rfl: Allergies Metformin, Other, Semaglutide, Soy allergy, Wound dressing adhesive, and Sulfa antibiotics Past Surgical History Past Surgical History: Procedure Laterality Date BLEPHAROPLASTY Bilateral 04/03/2008 BUNIONECTOMY Bilateral CATARACT EXTRACTION Bilateral COLONOSCOPY 11/26/2011 ELBOW SURGERY Left spur removal HAND SURGERY Right thumb repair HERNIA REPAIR HIP SURGERY Right Hip bursectomy. Dr. 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 Mccann OTHER SURGICAL HISTORY 10/03/2018 SK Removal ROTATOR CUFF REPAIR Right 10/05/2023 Dr Schilling TONSILLECTOMY and adenoidectomy TOTAL KNEE ARTHROPLASTY Bilateral 2012,, 2014 Family History Family History Problem Relation Name Age of Onset Hyperlipidemia Mother Diabetes Mother Hypertension Mother Heart disease Mother Cancer Mother breast cancer Kidney disease Mother Osteoporosis Mother Diabetes Father Hypertension Father Heart disease Father Cancer Sister cervical Cancer Brother Liver cancer Diabetes Brother Objective General Examination: GENERAL EXAMINATION: alert and oriented. Pleasant disposition. Wearing Skecher shoes. FOOT EXAM: Date of Last Foot Exam 01/16/2024 Sensory testing performed: sensations normal Sensory and motor testing performed: strength normal Pedal pulse taking performed: 2+ Vascular: DORSALIS PEDIS PULSE: 2/4, bilaterally. POSTERIOR TIBIAL PULSE: 2/4, bilaterally. TEMPERATURE GRADIENT: warm to warm. EDEMA: unremarkable for ankle edema. CAPILLARY FILLING TIME(sec): capillary fill intact bilateral digits less than 3 secs. HAIR GROWTH: present. Neurologic: SHARP SENSATION: tactile and light touch sensation intact. SEMMES-MOE 5.07 MONOFILAMENT: intact localization multiple points plantarly. NEUROLOGIC: light touch (normal). Dermatologic: SKIN FINDINGS: intact. Skin turgor is good. HYPERTROPHIC LESION: minimally raised, non-inflamed pinch callus lesion right great toe. NAIL PATHOLOGY: 2nd and 3rd digits bilateral: Toenail dystrophy, thickening, elongation, discoloration, mild clubbing, subtotal onycholysis, periungual hyperkeratosis, without drainage. Lunula involvement is noted. Bilateral great toes: Stable DSO/pincer toenail deformity. 5th digit right foot: Toenail dystrophy, thickening, discoloration and clinical mycosis. INGROWN NAIL PATHOLOGY: status post medial and lateral marginal matricectomy bilateral great toes. MYCOSIS SCALE: total with debris; 2nd digit right foot. INTERDIGITAL MACERATION: clean, dry, non-inflamed. ULCER: no sign of ulceration or open wound. Orthopedic: JOINT RANGE OF MOTION: demonstrates functiional ankle, subtalar and MTP joint range of motion. DEFORMITIES: status post HAV repair bilateral;mild HVI deformity bilateral great toes. Mild flexible hallux varus/malleolus deformity left. MUSCLE STRENGTH: no focal deficits. Radiology: Assessment/Plan Symptomatic onychodystrophy/mycosis multiple digits. Status post medial and lateral marginal matricectomy bilateral great toes (Dr. Cooper). Type II diabetes. HAV repair bilateral (Dr. Cooper). Hepatitis A as a child. Status post rotator cuff repair right shoulder (September 2023). Plan: Clinical Notes: conservative and palliative care measures are preferred, understood and again indicated. Agreeable to continue topical therapy: Use of vinegar and/or Listerine as directed; advised as to limited efficacy. Diabetic education and assessment. Hygiene and skin care and measures discussed. Discussed total matricectomy/phenol technique for consideration; primarily right great toe. Procedure: Toenail Debridement: Aseptic technique: power/manual instrumentation: [...] Carlos Baer DPM documented in this encounter [facility] 01-11-2024 History of Present illness Narrative Associated Problem(s): Primary osteoarthritis involving multiple joints Continue meloxicam, needs handicapped placard Associated Problem(s): ODALYS (generalized anxiety disorder) ([facility]) Not worse with change out to duloxetine Fu in 6 weeks Associated Problem(s): Fibromyalgia Cont deangelo and duloxetine at current dose Fu in 6 weeks consider does change if needed Associated Problem(s): Essential (primary) hypertension (CMS/[facility]) Please check blood pressure daily and record DASH diet Limit caffeine Take medication as directed Contact office if chest pain, pressure, dizziness, shortness of breath, swelling legs Recommend slow position changes Associated Problem(s): 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 elsewhere ([facility]) Continue with deangelo and duloxetine Pt found out yesterday she is going to have to get her shoulder replaced. Pt has been referred to dr scott for February. She did reach out to another dr, dr wolf at [facility] and she did not need a referral and she will see him next week for a consultation. Dr Alvarez is leaving the end of the month and has cancelled her PT due to therapy agitation the shoulder and was afraid to do a pain injection thinking that would agitate it even more as well. Pt states that the medication does not help with pain and she does not feel any different than before. Images from the original note were not included. Ashley Olson is a 78 y.o. female presents with chief complaint of No chief complaint on file. HPI: At last appt pt was switched from sertraline to duloxetine with the help of possibly improving her pain levels in regards to her Fibromyalgia. She is tolerating the medication however has not seen significant improvement in her pain symptoms Is going to have to undergo shoulder replacement surgery, and is understandably disappointed with having to consider this, but is going to see ortho next week SUBJECTIVE: MEDICATIONS: Current Outpatient Medications Medication Instructions alendronate (FOSAMAX) 70 mg, Oral, Every 7 days, Take in the morning with a full glass of water, on an empty stomach, and do not take anything else by mouth or lie down for the next 30 min. amLODIPine (NORVASC) 5 mg, Oral, Daily Ascorbic Acid (vitamin C) 1000 MG tablet Every 24 hours aspirin 81 mg, Daily atorvastatin (LIPITOR) 20 mg, Oral, Every morning Calcium Carbonate-Vitamin D (CALTRATE 600+D PO) Caltrate 600+D cetirizine (ZyrTEC) 10 MG tablet Every 24 hours cholecalciferol (Vitamin D-3) 50 MCG (1999 UT) tablet Vitamin D3 diphenhydrAMINE-acetaminophen (Tylenol PM) 25-500 MG per tablet 2 tablets, Nightly PRN DULoxetine (CYMBALTA) 30 mg, Oral, Daily, Do not crush or chew. Farxiga 5 mg, Daily ferrous sulfate 325 (65 Fe) MG tablet 1 tablet, Every other day fish oil-omega-3 fatty acids 1000 MG capsule Twice daily gabapentin (NEURONTIN) 100 mg, Oral, Daily latanoprost (Xalatan) 0.005 % ophthalmic solution INSTILL 1 DROP INTO BOTH EYES EVERY EVENING DIRECTED losartan (COZAAR) 100 mg, Oral, Every morning magnesium 250 MG tablet Every 24 hours melatonin tablet Nightly meloxicam (MOBIC) 15 mg, Oral, Daily Multiple Vitamins-Minerals (One Daily For Women 50+ Adv) tablet as directed Orally omeprazole (PRILOSEC) 20 mg, Oral, Daily before breakfast OneTouch Ultra test strip 1 each, As needed ALLERGIES: Allergies Allergen Reactions Metformin Other Reaction(s): g/i s/e Other Unknown Semaglutide Diarrhea Soy Allergy Unknown Wound Dressing Adhesive Unknown Sulfa Antibiotics Hives and Rash REVIEW OF SYMPTOMS: Review of Systems Constitutional: Negative for appetite change, chills and fever. HENT: Negative for congestion, ear pain and sore throat. Eyes: Negative for pain, discharge, redness and visual disturbance. Respiratory: Negative for cough, shortness of breath and wheezing. Cardiovascular: Negative for chest pain, palpitations and leg swelling. Gastrointestinal: Negative for abdominal pain, blood in stool, constipation, diarrhea, nausea and vomiting. Genitourinary: Negative for difficulty urinating, dysuria and frequency. Musculoskeletal: Positive for arthralgias. Negative for back pain, joint swelling and myalgias. Skin: Negative for rash and wound. Neurological: Negative for dizziness, tremors, seizures, syncope and headaches. Psychiatric/Behavioral: Negative for behavioral problems, self-injury and suicidal ideas. The patient is not nervous/anxious. Hematological: Does not bruise/bleed easily. Endocrine: Negative for polydipsia, polyphagia and polyuria. Allergic/Immunologic: Negative for environmental allergies and food allergies. PAST MEDICAL HISTORY Past Medical History: Diagnosis Date Abnormal mammogram of left breast Age-related osteoporosis without current pathological fracture (CMS/HCC) 02/18/2023 Allergic rhinitis, seasonal Arthritis Bulging lumbar disc Chronic pain CKD (chronic kidney disease) stage 3, GFR 30-59 ml/min (HCC) (CMS/HCC) COVID-19 virus detected DDD (degenerative disc disease), cervical Diabetes (CMS/HCC) Diabetic neuropathy (CMS/HCC) Dyspnea Encounter for screening mammogram for malignant neoplasm of breast 02/07/2023 Fibromyalgia Fracture of radial head, left, closed Granuloma annulare Hip pain, chronic, left Hives Hypercholesterolemia (CMS/HCC) Hyperlipidemia (CMS/HCC) Hypertension (CMS/HCC) Hypertriglyceridemia (CMS/HCC) Insomnia Kidney disease Menopause 02/07/2023 Neoplasm of uncertain behavior of back Obesity with body mass index (BMI) of 30.0 to 39.9 Osteoarthritis Osteopenia Ovarian cancer (CMS/HCC) Pain in both knees Rib pain on right side Right anterior shoulder pain Seborrheic keratosis Past Surgical History: Procedure Laterality Date BLEPHAROPLASTY Bilateral 04/03/2008 BUNIONECTOMY Bilateral CATARACT EXTRACTION Bilateral COLONOSCOPY 11/26/2011 ELBOW SURGERY Left spur removal HAND SURGERY Right thumb repair HERNIA REPAIR HIP SURGERY Right Hip bursectomy. Dr. 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 Mccann OTHER SURGICAL HISTORY 10/03/2018 SK Removal ROTATOR CUFF REPAIR Right 10/05/2023 Dr Schilling TONSILLECTOMY and adenoidectomy TOTAL KNEE ARTHROPLASTY Bilateral 2012,, 2013 family history includes Cancer in her brother, mother, and sister; Diabetes in her brother, father, and mother; Heart disease in her father and mother; Hyperlipidemia in her mother; Hypertension in her father and mother; Kidney disease in her mother; Osteoporosis in her mother. OBJECTIVE: Visit Vitals BP 118/86 (BP Location: Left arm, Patient Position: Sitting, BP Cuff Size: Adult long) Pulse 72 Temp 98.5 F (Temporal) Resp 18 Ht 5' 3.5 Wt 202 lb 9.6 oz SpO2 99% BMI 35.33 kg/m Smoking Status Never BSA 2.03 m Physical Exam Vitals and nursing note reviewed. Constitutional: General: She is not in acute distress. Appearance: Normal appearance. HENT: Head: Normocephalic and atraumatic. Right Ear: External ear normal. Left Ear: External ear normal. Nose: Nose normal. Mouth/Throat: Mouth: Mucous membranes are moist. Eyes: Extraocular Movements: Extraocular movements intact. Conjunctiva/sclera: Conjunctivae normal. Cardiovascular: Rate and Rhythm: Normal rate and regular rhythm. Pulses: Normal pulses. Heart sounds: Normal heart sounds. Pulmonary: Effort: Pulmonary effort is normal. Breath sounds: Normal breath sounds. Musculoskeletal: General: Normal range of motion. Cervical back: Normal range of motion and neck supple. Skin: General: Skin is warm and dry. Capillary Refill: Capillary refill takes 2 to 3 seconds. Findings: No rash. Neurological: General: No focal deficit present. Mental Status: She is alert and oriented to person, place, and time. Psychiatric: Mood and Affect: Mood normal. Behavior: Behavior normal. Thought Content: Thought content normal. Judgment: Judgment normal. ASSESSMENT AND PLAN: Follow up in about 6 weeks (around 02/22/2024) for Recheck. Problem List Items Addressed This Visit Fibromyalgia - Primary Cont deangelo and duloxetine at current dose Fu in 6 weeks consider does change if needed Class 2 severe obesity due to excess calories with serious comorbidity and body mass index (BMI) of 36.0 to 36.9 in adult (CMS/HCC) Discussed with patient their BMI (actual, verses recommended). We have also discussed lifestyle modifications: attempts to perform physical activity as chronic conditions allow, also to monitor dietary intake: increasing protein/fruits/veggies and lowering carb intake (unless contraindicated). Limit sodas, juices, and sugary drinks. Also discussed oral medications that can be utilized for weight loss, as well as surgical options for weight loss. Primary osteoarthritis involving multiple joints Continue meloxicam, needs handicapped placard Age-related osteoporosis without current pathological fracture ([facility]) Med dose refill UTD on DEXA 02/19 Relevant Medications alendronate (Fosamax) 70 MG tablet Essential (primary) hypertension ([facility]) Please check blood pressure daily and record DASH diet Limit caffeine Take medication as directed Contact office if chest pain, pressure, dizziness, shortness of breath, swelling legs Recommend slow position changes Relevant Medications amLODIPine (Norvasc) 5 MG tablet losartan (Cozaar) 100 MG tablet 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 elsewhere ([facility]) Continue with deangelo and duloxetine ODALYS (generalized anxiety disorder) ([facility]) Not worse with change out to duloxetine Fu in 6 weeks Associated Problem(s): Age-related osteoporosis without current pathological fracture ([facility]) Med dose refill UTD on DEXA 02/19 Associated Problem(s): Class 2 severe obesity due to excess calories with serious comorbidity and body mass index (BMI) of 36.0 to 36.9 in adult ([facility]) Discussed with patient their BMI (actual, verses recommended). We have also discussed lifestyle modifications: attempts to perform physical activity as chronic conditions allow, also to monitor dietary intake: increasing protein/fruits/veggies and lowering carb intake (unless contraindicated). Limit sodas, juices, and sugary drinks. Also discussed oral medications that can be utilized for weight loss, as well as surgical options for weight loss. documented in this encounter [facility] 01-11-2024 Instructions Dana Tapia NP - 01/11/2024 2:20 PM EST Keep all doses of meds the same documented in this encounter [facility] 01-11-2024 Miscellaneous Notes Staff message pending documented in this encounter [facility] 01-11-2024 Telephone encounter Note Staff message pending [facility] 01-10-2024 History of Present illness Narrative Images from the original note were not included. HISTORY OF PRESENT ILLNESS: Ashley Olson is an 78 y.o. @ female. Chief complaint RT shoulder pain RT shoulder: Saw May 01/04 and discussed the option of [facility] GH injx 3 months s/p RT RCR 10/05/23. She notes had good relief from the surgery until last week. She had a flare up of pain, denies injury. Describes as burning down lateral shoulder and into bicep. Has been random with movements and at rest. Taking TYL ES. Using patches and ice prn. Denies N/T. Denies bruising. Admits swelling in upper arm area. Wakes pt at HS, especially if she rolls onto RT side. Continues PT 2 times per week. MEDICATION: Current Outpatient Medications on File Prior to Visit Medication Sig Dispense Refill meloxicam (Mobic) 15 MG tablet Take 1 tablet (15 mg) by mouth Daily 90 tablet 1 omeprazole (PriLOSEC) [address] capsule Take 1 capsule (20 mg) by mouth in the morning. Take before meals. 90 capsule 1 alendronate (Fosamax) 70 MG tablet Take 1 tablet (70 mg) by mouth every 7 (seven) days for 28 days Take in the morning with a full glass of water, on an empty stomach, and do not take anything else by mouth or lie down for the next 30 min. 12 tablet 1 amLODIPine (Norvasc) 5 MG tablet Take 1 tablet (5 mg) by mouth Daily 90 tablet 1 Ascorbic Acid (vitamin C) 1000 MG tablet 1 (one) time each day at the same time. aspirin 81 MG EC tablet Take 81 mg by mouth in the morning. atorvastatin (Lipitor) 20 MG tablet TAKE 1 TABLET BY MOUTH EVERY DAY IN THE MORNING 90 tablet 1 Calcium Carbonate-Vitamin D (CALTRATE 600+D PO) Caltrate 600+D cetirizine (ZyrTEC) 10 MG tablet 1 (one) time each day at the same time. cholecalciferol (Vitamin D-3) 50 MCG (1999 UT) tablet Vitamin D3 diphenhydrAMINE-acetaminophen (Tylenol PM) 25-500 MG per tablet Take 2 tablets by mouth as needed at bedtime DULoxetine (Cymbalta) [address] capsule Take 1 capsule (30 mg) by mouth Daily Do not crush or chew. 90 capsule 0 Farxiga 5 MG Take 5 mg by mouth in the morning. ferrous sulfate 325 (65 Fe) MG tablet Take 1 tablet by mouth every other day. fish oil-omega-3 fatty acids 1000 MG capsule Twice daily gabapentin (Neurontin) 100 MG capsule Take 1 capsule (100 mg) by mouth Daily 90 capsule 1 latanoprost (Xalatan) 0.005 % ophthalmic solution INSTILL 1 DROP INTO BOTH EYES EVERY EVENING DIRECTED losartan (Cozaar) 100 MG tablet Take 1 tablet (100 mg) by mouth in the morning. 90 tablet 1 magnesium 250 MG tablet 1 (one) time each day at the same time. melatonin tablet Take by mouth at bedtime. Multiple Vitamins-Minerals (One Daily For Women 50+ Adv) tablet as directed Orally OneTouch Ultra test strip 1 each by Other route if needed No current facility-administered medications on file prior to visit. MEDICAL HISTORY: Past Medical History: Diagnosis Date Abnormal mammogram of left breast Age-related osteoporosis without current pathological fracture (CMS/HCC) 02/18/2023 Allergic rhinitis, seasonal Arthritis Bulging lumbar disc Chronic pain CKD (chronic kidney disease) stage 3, GFR 30-59 ml/min (HCC) (CMS/HCC) COVID-19 virus detected DDD (degenerative disc disease), cervical Diabetes (CMS/HCC) Diabetic neuropathy (CMS/HCC) Dyspnea Encounter for screening mammogram for malignant neoplasm of breast 02/07/2023 Fibromyalgia Fracture of radial head, left, closed Granuloma annulare Hip pain, chronic, left Hives Hypercholesterolemia (CMS/HCC) Hyperlipidemia (CMS/HCC) Hypertension (CMS/HCC) Hypertriglyceridemia (CMS/HCC) Insomnia Kidney disease Menopause 02/07/2023 Neoplasm of uncertain behavior of back Obesity with body mass index (BMI) of 30.0 to 39.9 Osteoarthritis Osteopenia Ovarian cancer (CMS/HCC) Pain in both knees Rib pain on right side Right anterior shoulder pain Seborrheic keratosis ALLERGIES: Allergies Allergen Reactions Metformin Other Reaction(s): g/i s/e Other Unknown Semaglutide Diarrhea Soy Allergy Unknown Wound Dressing Adhesive Unknown Sulfa Antibiotics Hives and Rash VITALS: Visit Vitals Smoking Status Never PHYSICAL EXAM: Ortho Exam RIGHT SHOULDER 20 abduction, 20 flexion Passively 90 degrees abduction Positive Drop test IMAGING: June 23, 2023 x-rays from the [place] office AP axillary and Y scapula of the right shoulder demonstrate narrowing of the acromioclavicular joint a type 1 acromion. Normal glenoid morphology. No fractures. 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 ASSESSMENT: ICD-10-CM 1. Status post right rotator cuff repair Z98.890 2. Right shoulder pain, unspecified chronicity M25.511 PLAN: I explained the diagnosis and reviewed treatment options. I recommend observation for at another 2-3 months. I recommend stopping physical therapy and work on HEP. I recommend referral to Dr Scott in 6-8 weeks'/[ for possible shoulder replacement. I answered all of the patient's questions. Dr. Schilling obtained history and examined the patient, I am acting as scribe for Dr. Schilling/fahad I did advise the patient that I am leaving my current practice to practice in another state but my colleagues are willing to see her if she has any problems or concerns or if she desires a referral to another insurance law specialist we would be happy to make referral, she states she would like to continue her care here. Tresa Schilling D.O. documented in this encounter [facility] 01-06-2024 History of Present illness Narrative Physical Therapy Physical Therapy Treatment Visit Patient Name: Ashley Olson Today's Date: 01/06/2024 Encounter Diagnoses Name Primary? Acute pain of right shoulder Yes Shoulder stiffness, right Visit number: 13 Sup time: 38 min Total time: 55 min Time in: 7:15 am Time out: 8:10 am Subjective Ashley Olson 78 y.o. female presents to physical therapy w/ chief c/o R shoulder pain and weakness, very limited functional use Mechanism of Onset: s/p RCR 10/05/23, about 6 months of significant pain and severe limitations prior to SX Current deficits: pain, decreased ROM/flexibility, significant weakness Pain: / ant shoulder pain down bicep this a.m. had some mod to severe pain 2 days ago at desk at work just doing paper work pt to RTD 01/10/24 probable injection. 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 Precautions: A/P ROM no strengthening at shoulder until cleared Objective R shoulder PROM flex to 95, abd to 95, ER to 33 R shoulder AROM flex to 35, abd to 50, ER to neutral, IR/ext behind back to L5/S1 Significant UT substitution with trying to actively raise arm Min TTP grossly at R shoulder no noted swelling Treatment Interventions Manual Therapy: Delivered manual PROM, gentle stretching, massage ant shoulder down bicep to right shoulder /UE to improve mobility decrease pain x 12 min cues to help prevent guarding with PROM/stretching Therapeutic Exercise: 26 min sup, 31 total, Guided pt through ther and flex per grid, ROM, flexibility, strength as appropriate continues to have difficulty and pain. Added bicep curls no issues. Therapeutic Activity: Exercises to improve dynamic activities, functional tasks, functional mobility to return to prior activity level Modalities: Post session Pt seated CP/ESU IFC hi-sweep (12 min ) to reduce pain, inflammation Assessment/Plan R shoulder pain, decreased ROM and strength causing greatly increased difficulty with ADLs/self care, s/p RCR 10/05/23 PROM remains min limited flex, mod abd, ER WNL. Continues to struggle to get AROM ER and elevation going. ER=2-/5 MMT unable to ER out away from body in standing without assistance. Flex, scap, abd 3-/5 MMT little more difficulty today vs last session with exacerbation earlier in week, held cane work supine today. documented in this encounter [facility] 01-05-2024 History of Present illness Narrative Images from the original note were not included. HISTORY OF PRESENT ILLNESS: Ashley Olson is an 78 y.o. @ female. po x 3 months s/p RT RCR 10/05/23. Continues PT. Within the last couple days she has had burning down anterior shoulder and into bicep. Has been random with movements. Occas pain in shoulder. Taking TYL ES. Using patches and ice prn. Denies N/T. Denies bruising. Admits swelling. Wakes pt at HS, especially if she rolls onto RT side. REVIEW OF SYSTEMS: General: Denies fever, fatigue or weight loss Lungs: Denies SOB Cardio: Denies chest pain GI: Denies indigestion or abdominal pain Neuro: Denies numbness or tingling, denies new onset paralysis Musculoskeletal: ( see note) PHYSICAL EXAM: Right Shoulder Exam Tenderness The patient is experiencing tenderness in the biceps tendon (compartments soft, lateral shoulder pain). Range of Motion Active abduction: 40 Right shoulder passive abduction: gentle pendulums easily. Forward flexion: 50 (PROM 140) Muscle Strength Right shoulder normal muscle strength: Fires deltoid and rotator cuff, pendulums easily. Other Erythema: absent Scars: present (Portals well healing, sutures removed, no erythema, drainge or discharge, no dehisence) Sensation: normal Pulse: present Comments: ROM of shoulder is mostly scapular movment Procedures IMAGING: ASSESSMENT: ICD-10-CM 1. Status post right rotator cuff repair Z98.890 2. Right shoulder pain, unspecified chronicity M25.511 PLAN: 3 months s/p Shoulder Arthroscopy: RT RCR Plan: Patient is still having decreased ROM and shoulder pain mostly in biceps tendon and lateral shoulder. I recommend that she have USG GH injection with Dr. Schilling and continue with PT. She will follow up next week with Dr. Schilling for injection. Patient verabalized understading. Questions answered in laymen terms at the bedside. If unable to be reached in office, I recommend evaluation at nearest Emergency Room if any symptoms worsened or new symptoms develop for requiring urgent evaluation. May Pulido, WANG-RESOURCE MANAGER FORESTER documented in this encounter [facility] 01-02-2024 History of Present illness Narrative Physical Therapy Physical Therapy Treatment Visit Patient Name: Ashley Olson Today's Date: 01/02/2024 Encounter Diagnoses Name Primary? Acute pain of right shoulder Yes Shoulder stiffness, right Visit number: 12 Sup time: 40 min Total time: 58 min Time in: 7:32 am Time out: 8:30 am Subjective Ashley Olson 78 y.o. 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 Precautions: A/P ROM no strengthening at shoulder until cleared Objective R shoulder PROM flex to 95, abd to 95, ER to 33 R shoulder AROM flex to 35, abd to 50, ER to neutral, IR/ext behind back to L5/S1 Significant UT substitution with trying to actively raise arm Min TTP grossly at R shoulder no noted swelling Treatment Interventions Manual Therapy: Delivered manual PROM, gentle stretching, massage ant shoulder down bicep to right shoulder /UE to improve mobility decrease pain x 10 min cues to help prevent guarding with PROM/stretching Therapeutic Exercise: 30 min sup, 35 total, Guided pt through ther and flex per grid, ROM, flexibility, strength as appropriate continues to have difficulty and pain with A-AA work especially towards overhead, wall walks go a little better then cane work. Progressed a little today, some increased pain once again. Therapeutic Activity: Exercises to improve dynamic activities, functional tasks, functional mobility to return to prior activity level Modalities: Post session Pt seated CP/ESU IFC hi-sweep (10 min ) to reduce pain, inflammation Assessment/Plan R shoulder pain, decreased ROM and strength causing greatly increased difficulty with ADLs/self care, s/p RCR 10/05/23 PROM remains min limited flex, mod abd, ER WNL. Continues to struggle to get AROM ER and elevation going. ER=2-/5 MMT unable to ER out away from body in standing without assistance. Flex, scap, abd 3-/5 MMT AA work slowly going better but difficult and painful. F/U with DR Schilling 01-17-24 documented in this encounter [facility] 12-19-2023 History of Present illness Narrative Images from the original note were not included. Physical Therapy Physical Therapy Evaluation Visit Patient Name: Ashley Olson Today's Date: 12/19/2023 Encounter Diagnoses Name Primary? Acute pain of right shoulder Yes Shoulder stiffness, right Visit number: 8 Sup time: 40 min Total time: 56 min Time in: 7:00 am Time out: 7:56 am Subjective Ashley Olson 78 y.o. female presents to physical therapy w/ chief c/o R shoulder pain and weakness, very limited functional use Mechanism of Onset: s/p RCR 10/05/23, about 6 months of significant pain and severe limitations prior to SX Current deficits: pain, decreased ROM/flexibility, significant weakness Pain: pt denies pain upon arrival, increased soreness after last session and with HEP continues. 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 Precautions: A/P ROM no strengthening at shoulder until cleared Objective R shoulder PROM flex to 95, abd to 95, ER to 33 R shoulder AROM flex to 35, abd to 50, ER to neutral, IR/ext behind back to L5/S1 Significant UT substitution with trying to actively raise arm Min TTP grossly at R shoulder no noted swelling Treatment Interventions Manual Therapy: PROM, massage ant shoulder down bicep x 10 min Therapeutic Exercise: per SOUMYA grid, ROM, flexibility, strength as appropriate x 30 min sup, 35 min total, continues to have difficulty and pain with A-AA work especially towards overhead, wall walks go a little better then cane work. Increased some reps today. Therapeutic Activity: Exercises to improve dynamic activities, functional tasks, functional mobility to return to prior activity level Modalities: CP/ESU IFC hi-sweep x 10 min with some relief reported Assessment/Plan R shoulder pain, decreased ROM and strength causing greatly increased difficulty with ADLs/self care, s/p RCR 10/05/23 Pt demos improved tolerance overall, difficulty remains with A/AA overhead especially controlled lowering, wall walks continue to go better than cane. . PROM improvement significant with improved relaxation and min restriction in all planes, end range pain in all planes. Finished with Estim/ice for pain relief documented in this encounter [facility] 12-14-2023 History of Present illness Narrative Images from the original note were not included. Physical Therapy Physical Therapy Evaluation Visit Patient Name: Ashley Olson Today's Date: 12/14/2023 Encounter Diagnoses Name Primary? Acute pain of right shoulder Yes Shoulder stiffness, right Visit number: 6 Sup time: 42 min Total time: 60 min Time in: 7:30 am Time out: 8:30 am Subjective Ashley Olson 78 y.o. 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 Precautions: A/P ROM no strengthening at shoulder until cleared Objective R shoulder PROM flex to 95, abd to 95, ER to 33 R shoulder AROM flex to 35, abd to 50, ER to neutral, IR/ext behind back to L5/S1 Significant UT substitution with trying to actively raise arm Min TTP grossly at R shoulder no noted swelling Treatment Interventions Manual Therapy: PROM, massage ant shoulder down bicep x 10 min Therapeutic Exercise: per SOUMYA grid, ROM, flexibility, strength as appropriate x 32 min sup, 38 min total, added UBE, wall walks abd, bent AROM flex with holds (able to get to ~100 degrees) to aid in progress with AROM towards overhead today and also increased some reps. Therapeutic Activity: Exercises to improve dynamic activities, functional tasks, functional mobility to return to prior activity level Modalities: CP/ESU IFC hi-sweep x 12 min with some relief reported Assessment/Plan R shoulder pain, decreased ROM and strength causing greatly increased difficulty with ADLs/self care, s/p RCR 10/05/23 Pt demos improved tolerance overall, difficulty remains with A/AA overhead especially controlled lowering, wall walks continue to go better than cane. Significant UT compensation with cane in standing. PROM improvement significant with improved relaxation and min restriction in all planes, end range pain in all planes. Finished with Estim/ice for pain relief documented in this encounter [facility] 12-12-2023 History of Present illness Narrative Images from the original note were not included. HISTORY OF PRESENT ILLNESS: Ashley Olson is an 78 y.o. @ female. S/p PT at [facility] po x 9 weeks 5 days s/p RT RCR 10/05/23. Continues PT. Doing HEP. Notes very slow progress. Has had some improvement with ROM. Soreness in upper arm. Taking TYL. Using biofreeze patches or salon pas patches. Denies N/T, swelling. Occas popping. Wakes pt at HS if laying on it. REVIEW OF SYSTEMS: General: Denies fever, fatigue or weight loss Lungs: Denies SOB Cardio: Denies chest pain GI: Denies indigestion or abdominal pain Neuro: Denies numbness or tingling, denies new onset paralysis Musculoskeletal: ( see note) PHYSICAL EXAM: Right Shoulder Exam Tenderness Right shoulder tenderness location: compartments soft. Range of Motion Active abduction: 40 Right shoulder passive abduction: gentle pendulums easily. Forward flexion: 60 (PROM 140) Muscle Strength Right shoulder normal muscle strength: Fires deltoid and rotator cuff, pendulums easily. Other Erythema: absent Scars: present (Portals well healing, sutures removed, no erythema, drainge or discharge, no dehisence) Sensation: normal Pulse: present Comments: The operative upper extremity was noted to be neurovascularly unchanged. Sensation to light touch was intact to all dermatomes to operative upper extremity. Radial and ulnar pulses were present and equal bilaterally. Patient was able to motor elbow wrist and fingers in all anatomic planes with 5 out of 5 strength on the operative upper extremity. Compartments were soft to operative upper extremity. There was no evidence of infection or ascending lymphangitis to operative extremity. Procedures IMAGING: ASSESSMENT: ICD-10-CM 1. Status post right rotator cuff repair Z98.890 PLAN: 9 weeks 5 days s/p Shoulder Arthroscopy: RT RCR Plan: She states that her pain and ROM has slightly improved. I recommend that patient continue with PT working on ROM but no strengthening until 12 weeks PO. She will follow up in 4 weeks for RCK. Patient verabalized understading. Questions answered in laymen terms at the bedside. If unable to be reached in office, I recommend evaluation at nearest Emergency Room if any symptoms worsened or new symptoms develop for requiring urgent evaluation. May Pulido APRN-RESOURCE MANAGER FORESTER documented in this encounter [facility] 11-30-2023 History of Present illness Narrative Images from the original note were not included. Physical Therapy Physical Therapy Evaluation Visit Patient Name: Ashley Olson Today's Date: 11/30/2023 Encounter Diagnoses Name Primary? Acute pain of right shoulder Yes Shoulder stiffness, right Visit number: 2 Sup time: 40 Total time: 60 min Time in: 6:55 am Time out: 7:55 am Subjective Ashley Olson 78 y.o. 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 documented in this encounter [facility] 11-28-2023 History of Present illness Narrative Associated Problem(s): ODALYS (generalized anxiety disorder) ([facility]) Stop with use of sertraline Start duloxetine 30mg daily Take medication only as directed. This medication will take approximately 4-6 weeks to become effective. If any suicidal thoughts, thoughts of hurting others, or hallucinations contact the office or proceed to the Emergency Room for mental health evaluation. Medication may cause dry mouth, dizziness, and in some cases worsening in depression symptoms. Please contact the office if these occur. Associated Problem(s): Type 2 diabetes mellitus without complication, without long-term current use of insulin (CMS/HCC) Continue with Dyllan Mapus Associated Problem(s): Fibromyalgia Will see if addition of duloxetine helps Associated Problem(s): Essential (primary) hypertension (CMS/HCC) Stable on current med dose, and no changes Gets labs per Nephrology regularly Associated Problem(s): 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 elsewhere (CMS/HCC) Continue deangelo at 100mg daily Will add duloxetine to see if this helps as well Pt does need a refill on her gabapentin 100mg Pt is still having quite a bit of pain, both knees cause her trouble on a daily. She stated she was on gabapentin 3x daily. She also has rotar cuff and has started therapy- which has increased pain She is taking extra strength tylenol during the day. Images from the original note were not included. Ashley Olson is a 78 y.o. female presents with chief complaint of No chief complaint on file. HPI: Takes gabapentin 1 pill (100mg ) once a day for pain/ nerve pain/ Bilat knee pain, takes meloxicam 15mg daily, 5/10 daily deep achy pain, no instability, some swelling and pain to bilat lateral aspect of knees, L>R. Hypertension This is a chronic problem. The current episode started more than 1 year ago. The problem is unchanged. The problem is controlled. Pertinent negatives include no chest pain, headaches, palpitations, peripheral edema or shortness of breath. There are no associated agents to hypertension. Risk factors for coronary artery disease include diabetes mellitus, dyslipidemia, obesity, sedentary lifestyle and post-menopausal state. Past treatments include calcium channel blockers and angiotensin blockers. The current treatment provides significant improvement. There are no compliance problems. SUBJECTIVE: MEDICATIONS: Current Outpatient Medications Medication Instructions alendronate (FOSAMAX) 70 mg, Oral, Every 7 days, Take in the morning with a full glass of water, on an empty stomach, and do not take anything else by mouth or lie down for the next 30 min. amLODIPine (NORVASC) 5 mg, Oral, Daily Ascorbic Acid (vitamin C) 1000 MG tablet Every 24 hours aspirin 81 mg, Oral, Daily atorvastatin (LIPITOR) 20 mg, Oral, Every morning Calcium Carbonate-Vitamin D (CALTRATE 600+D PO) Caltrate 600+D cetirizine (ZyrTEC) 10 MG tablet Every 24 hours cholecalciferol (Vitamin D-3) 50 MCG (2000 UT) tablet Vitamin D3 diphenhydrAMINE-acetaminophen (Tylenol PM) 25-500 MG per tablet 2 tablets, Oral, Nightly PRN Farxiga 5 mg, Oral, Daily ferrous sulfate 325 (65 Fe) MG tablet 1 tablet, Oral, Every other day fish oil-omega-3 fatty acids 1000 MG capsule Twice daily gabapentin (NEURONTIN) 100 mg, Oral, Daily latanoprost (Xalatan) 0.005 % ophthalmic solution INSTILL 1 DROP INTO BOTH EYES EVERY EVENING DIRECTED losartan (COZAAR) 100 mg, Oral, Every morning magnesium 250 MG tablet Every 24 hours melatonin tablet Oral, Nightly meloxicam (MOBIC) 15 mg, Oral, Daily Multiple Vitamins-Minerals (One Daily For Women 50+ Adv) tablet as directed Orally omeprazole (PRILOSEC) 20 mg, Oral, Daily before breakfast OneTouch Ultra test strip 1 each, Other, As needed sertraline (ZOLOFT) 50 mg, Oral, Every morning ALLERGIES: Allergies Allergen Reactions Metformin Other Reaction(s): g/i s/e Other Unknown Semaglutide Diarrhea Soy Allergy Unknown Wound Dressing Adhesive Unknown Sulfa Antibiotics Hives and Rash REVIEW OF SYMPTOMS: Review of Systems Constitutional: Negative for appetite change, chills and fever. HENT: Negative for congestion, ear pain and sore throat. Eyes: Negative for pain, discharge, redness and visual disturbance. Respiratory: Negative for cough, shortness of breath and wheezing. Cardiovascular: Negative for chest pain, palpitations and leg swelling. Gastrointestinal: Negative for abdominal pain, blood in stool, constipation, diarrhea, nausea and vomiting. Genitourinary: Negative for difficulty urinating, dysuria and frequency. Musculoskeletal: Positive for arthralgias. Negative for back pain, joint swelling and myalgias. Skin: Negative for rash and wound. Neurological: Positive for numbness. Negative for dizziness, tremors, seizures, syncope and headaches. Psychiatric/Behavioral: Negative for behavioral problems, self-injury and suicidal ideas. The patient is not nervous/anxious. Hematological: Does not bruise/bleed easily. Endocrine: Negative for polydipsia, polyphagia and polyuria. Allergic/Immunologic: Negative for environmental allergies and food allergies. PAST MEDICAL HISTORY Past Medical History: Diagnosis Date Abnormal mammogram of left breast Age-related osteoporosis without current pathological fracture (CMS/HCC) 02/18/2023 Allergic rhinitis, seasonal Arthritis Bulging lumbar disc Chronic pain CKD (chronic kidney disease) stage 3, GFR 30-59 ml/min (HCC) (CMS/HCC) COVID-19 virus detected DDD (degenerative disc disease), cervical Diabetes (CMS/HCC) Diabetic neuropathy (CMS/HCC) Dyspnea Encounter for screening mammogram for malignant neoplasm of breast 02/07/2023 Fibromyalgia Fracture of radial head, left, closed Granuloma annulare Hip pain, chronic, left Hives Hypercholesterolemia (CMS/HCC) Hyperlipidemia (CMS/HCC) Hypertension (CMS/HCC) Hypertriglyceridemia (CMS/HCC) Insomnia Kidney disease Menopause 02/07/2023 Neoplasm of uncertain behavior of back Obesity with body mass index (BMI) of 30.0 to 39.9 Osteoarthritis Osteopenia Ovarian cancer (CMS/HCC) Pain in both knees Rib pain on right side Right anterior shoulder pain Seborrheic keratosis Past Surgical History: Procedure Laterality Date BLEPHAROPLASTY Bilateral 04/03/2008 BUNIONECTOMY Bilateral CATARACT EXTRACTION Bilateral COLONOSCOPY 11/26/2011 ELBOW SURGERY Left spur removal HAND SURGERY Right thumb repair HERNIA REPAIR HIP SURGERY Right Hip bursectomy. Dr. 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 Mccann OTHER SURGICAL HISTORY 10/03/2018 SK Removal ROTATOR CUFF REPAIR Right 10/05/2023 Dr Schilling TONSILLECTOMY and adenoidectomy TOTAL KNEE ARTHROPLASTY Bilateral 2012,, 2013 family history includes Cancer in her brother, mother, and sister; Diabetes in her brother, father, and mother; Heart disease in her father and mother; Hyperlipidemia in her mother; Hypertension in her father and mother; Kidney disease in her mother; Osteoporosis in her mother. OBJECTIVE: Visit Vitals BP 122/74 (BP Location: Left arm, Patient Position: Sitting, BP Cuff Size: Adult long) Pulse 63 Temp 98.5 F (Temporal) Resp 19 Ht 5' 3.5 Wt 203 lb SpO2 96% BMI 35.40 kg/m Smoking Status Never BSA 2.03 m Physical Exam Vitals and nursing note reviewed. Constitutional: General: She is not in acute distress. Appearance: Normal appearance. HENT: Head: Normocephalic and atraumatic. Right Ear: External ear normal. Left Ear: External ear normal. Nose: Nose normal. Mouth/Throat: Mouth: Mucous membranes are moist. Eyes: Extraocular Movements: Extraocular movements intact. Conjunctiva/sclera: Conjunctivae normal. Neck: Vascular: No carotid bruit. Cardiovascular: Rate and Rhythm: Normal rate and regular rhythm. Pulses: Normal pulses. Heart sounds: Normal heart sounds. Pulmonary: Effort: Pulmonary effort is normal. Breath sounds: Normal breath sounds. Musculoskeletal: General: Normal range of motion. Cervical back: Normal range of motion and neck supple. Skin: General: Skin is warm and dry. Capillary Refill: Capillary refill takes 2 to 3 seconds. Findings: No rash. Neurological: General: No focal deficit present. Mental Status: She is alert and oriented to person, place, and time. Psychiatric: Mood and Affect: Mood normal. Behavior: Behavior normal. Thought Content: Thought content normal. Judgment: Judgment normal. ASSESSMENT AND PLAN: No follow-ups on file. Problem List Items Addressed This Visit Fibromyalgia Will see if addition of duloxetine helps Relevant Medications DULoxetine (Cymbalta) [address] capsule Type 2 diabetes mellitus without complication, without long-term current use of insulin ([facility]) Continue with Dyllan Mapus Essential (primary) hypertension ([facility]) - Primary Stable on current med dose, and no changes Gets labs per Nephrology regularly 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 elsewhere ([facility]) Continue deangelo at 100mg daily Will add duloxetine to see if this helps as well Relevant Medications DULoxetine (Cymbalta) [address] capsule ODALYS (generalized anxiety disorder) ([facility]) Stop with use of sertraline Start duloxetine 30mg daily Take medication only as directed. This medication will take approximately 4-6 weeks to become effective. If any suicidal thoughts, thoughts of hurting others, or hallucinations contact the office or proceed to the Emergency Room for mental health evaluation. Medication may cause dry mouth, dizziness, and in some cases worsening in depression symptoms. Please contact the office if these occur. Relevant Medications DULoxetine (Cymbalta) [address] capsule documented in this encounter [facility] 11-24-2023 History of Present illness Narrative Images from the original note were not included. Physical Therapy Physical Therapy Evaluation Visit Patient Name: Ashley Olson Today's Date: 11/24/2023 Encounter Diagnoses Name Primary? Acute pain of right shoulder Yes Shoulder stiffness, right Visit number: 1 Subjective Ashley Olson 78 y.o. 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 Precautions: A/P ROM no strengthening [...] Eval Findings and POC Manual Therapy: PROM, massage, gentle stretching x 10 min repeated cues to help prevent guarding Therapeutic Exercise: per SOUMYA grid, ROM, flexibility, strength as appropriate x 20 min sup (A/PROM at shoulder only no strengthening until cleared) Therapeutic Activity: Exercises to improve dynamic activities, functional tasks, functional mobility to return to prior activity level Modalities: CP/ESU IFC hi-sweep x 12 min with some relief reported Assessment/Plan R shoulder pain, decreased ROM and strength causing greatly increased difficulty with ADLs/self care, s/p RCR 10/05/23 Patient Goals Short Term Goal #1: pt will demo R shoulder AROM WNL all planes pain free Short Term Goal #2: pt will demo R shoulder strength grossly at least 4/5 MMT all planes pain free Short Term Goal #3: pt will be ind with ADLs/self care Short Term Goal #4: pt will be ind with HEP for maintenance/progression prn at DC Pt will benefit from skilled PT to address the above impairments for 2-3x/week for 8-12 weeks pending pt needs/progress I hereby deem this POC medically necessary. Please sign below. Date: documented in this encounter [facility] 11-14-2023 History of Present illness Narrative Images from the original note were not included. HISTORY OF PRESENT ILLNESS: Ashley Olson is an 78 y.o. @ female. po x 5 weeks 5 days s/p RT RCR 10/05/23. Doing HEP. Denies pain. Taking tramadol at HS due to rolling on RT side. Denies N/T, swelling. Occas popping the last couple days. Denies issues with incisions. REVIEW OF SYSTEMS: General: Denies fever, fatigue or weight loss Lungs: Denies SOB Cardio: Denies chest pain GI: Denies indigestion or abdominal pain Neuro: Denies numbness or tingling, denies new onset paralysis Musculoskeletal: ( see note) PHYSICAL EXAM: Right Shoulder Exam Tenderness Right shoulder tenderness location: compartments soft. Range of Motion Active abduction: 20 Right shoulder passive abduction: gentle pendulums easily. Forward flexion: 10 (PROM 140) Muscle Strength Right shoulder normal muscle strength: Fires deltoid and rotator cuff, pendulums easily. Other Erythema: absent Scars: present (Portals well healing, sutures removed, no erythema, drainge or discharge, no dehisence) Sensation: normal Pulse: present Comments: The operative upper extremity was noted to be neurovascularly unchanged. Sensation to light touch was intact to all dermatomes to operative upper extremity. Radial and ulnar pulses were present and equal bilaterally. Patient was able to motor elbow wrist and fingers in all anatomic planes with 5 out of 5 strength on the operative upper extremity. Compartments were soft to operative upper extremity. There was no evidence of infection or ascending lymphangitis to operative extremity. Procedures IMAGING: ASSESSMENT: ICD-10-CM 1. Status post right rotator cuff repair Z98.890 Ambulatory referral to Physical Therapy PLAN: 5 weeks 5 days s/p Shoulder Arthroscopy: RT RCR Plan: She states that her pain has improved but still having limited AROM. I recommend that patient start PT working on ROM but no strengthening until 12 weeks PO. She will follow up in 4 weeks for RCK. Patient verabalized understading. Questions answered in laymen terms at the bedside. If unable to be reached in office, I recommend evaluation at nearest Emergency Room if any symptoms worsened or new symptoms develop for requiring urgent evaluation. May Pulido APRN-RESOURCE MANAGER FORESTER documented in this encounter [facility] 04-13-2023 History of Present illness Narrative Images from the original note were not included. Subjective Patient ID: Ashley Olson is a 78 y.o. female who presents for Nail care ( Ashley Olson is a 77 y.o. female who presents [...] , Rfl: cholecalciferol (Vitamin D-3) 50 MCG (1999) tablet, Vitamin D3, Disp: , Rfl: Farxiga [...] Carlos Baer DPM documented in this encounter [facility] 04-13-2023 Instructions Carlos Baer DPM - 04/13/2023 2:15 PM EST Topical care measures as noted documented in this encounter [facility] 12-14-2022 Evaluation note Encounter Date Diagnosis [...] due to the PPI. Continue oral magnesium [facility] Other 08-02-2023 Evaluation note* Encounter Date Diagnosis [...] it easier material was printed see above [facility] Other 04-11-2023 Evaluation note* Encounter Date Diagnosis [...] due to the PPI. Continue oral magnesium [facility] Other 02-01-2023 Evaluation note* Encounter Date Diagnosis [...] [facility]. 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 Continue oral magnesium [facility] Other 07-27-2022 Evaluation note* Encounter Date Diagnosis [...] days, discuss your symptoms with your senior telecommunications consultant. Follow-up with your family physician if no improvement in 2 to 3 days. Go to the ER for worsening symptoms or concerns Aug, Other General allergi c reactions home care material was printed [facility] Other 04-26-2022 Evaluation note* Encounter Date Diagnosis [...] it easier material was printed see above [facility] Other 04-20-2022 Evaluation note* Encounter Date Diagnosis [...] within the goal. Continue oral vitamin D. [facility] Other 04-12-2022 Evaluation note* Encounter Date Diagnosis Assessment Notes Treatment Notes Treatment Clinical Notes May, Type 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 (ICD-10 - E11.22) [facility] Other 10-26-2021 Evaluation note* Encounter Date Diagnosis [...] within the goal. Continue oral vitamin D. [facility] Other 10-20-2021 Evaluation note* Encounter Date Diagnosis [...] it easier material was printed see above [facility] Other 10-08-2021 Evaluation note* Encounter Date Diagnosis Assessment Notes Treatment Notes Treatment Clinical Notes Nov, Encounter for immunization (ICD-10 - Z23) Patient presents for COVID-19 vaccination BOOSTER. Pre-screening form answers evaluated with patient. Patient denies current illness or allergic reaction to component of COVID-19 vaccine. Patient provided with current copy of EUA. [facility] [employer] Other Chish complaint+Reason for visit Narrative* Chief Complaint 6 month f/u / meter Reason for Visit Dietary counseling a nd surveillance Hyperlipidemia Hypertension Type 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 [facility] Work Phone: Evaluation noteNo InformationNortH[facility] [employer] Other Evaluation note* Diagnosis Dermatophytosis of nail- Primary Dystrophic nail Other specified disease of nail Pain around toenail, right foot Pain around toenail, left foot [facility] noteNo assessment information availableMagruder [facility] Work Phone: Evaluation note* Diagnosis Onset Date Resolution Status CKD (chronic kidney disease) stage 3, GFR 30-59 ml/min acute [id number] acute Hypomagnesemia acute Iron deficiency acute Secondary hyperparathyroidism acute Type 2 diabetes mellitus wit h diabetic chronic kidney disease acute Vitamin D deficiency acute [facility] Work Phone: Evaluation note* Diagnosis Onset Date Resolution Status Dietary counseling and surveillance acute Hyperlipidemia acute Hypertension acute Type 2 diabetes mellitus wit h diabetic chronic kidney disease acute [facility] Work Phone: Evaluation note* Diagnosis Acute pain of right shoulder- Primary Shoulder stiffness, right documented [facility] Diagnosis Acute pain of right shoulder- Primary Shoulder stiffness, right documented in this encounter [facility]* Diagnosis Acute pain of right shoulder- Primary Shoulder stiffness, right documented in this encounter [facility]* Diagnosis Acute pain of right shoulder- Primary Shoulder stiffness, right documented in this encounter [facility]* Diagnosis Onset Date Resolution Status BMI 34.0-34.9,adult acute Dietary counseling and surveillance acute Hyperlipidemia acute Hypertension acute Type 2 diabetes mellitus wit h diabetic chronic kidney disease acute CKD (chronic kidney disease) stage 3, GFR 30-59 ml/min acute [id number] acute Hypomagnesemia acute Iron deficiency acute Secondary hyperparathyroidism acute Type 2 diabetes mellitus wit h diabetic chronic kidney disease acute Vitamin D deficiency acute [facility] Work Phone: Evaluation note* Diagnosis Benign essential HTN (CMS/HCC)- Primary Gastroesophageal reflux disease without esophagitis Esophageal reflux Stage 3 chronic kidney disease, unspecified whether stage 3a or 3b CKD (HCC) (CMS/HCC) Class 2 severe obesity due to excess calories with serious comorbidity and body mass index (BMI) of 36.0 to 36.9 in adult (CMS/HCC) Menopause Symptomatic menopausal or female climacteric states Encounter for screening mammogram for malignant neoplasm of breast Encounter for subsequent annual wellness visit (AWV) in Medicare patient- Primary Benign essential HTN (CMS/HCC) Gastroesophageal reflux disease without esophagitis Esophageal reflux Stage 3 chronic kidney disease, unspecified whether stage 3a or 3b CKD (HCC) (CMS/HCC) 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, without long-term current use of insulin, unspecified whether stage 3a or 3b CKD (HCC) (CMS/HCC) Acute pain of right shoulder- Primary Class 2 severe obesity due to excess calories with serious comorbidity and body mass index (BMI) of 36.0 to 36.9 in adult (CMS/HCC) Primary osteoarthritis involving multiple joints Preoperative clearance- Primary Unspecified pre-operative examination Type 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 (CMS/HCC) Malignant neoplasm of unspecified ovary (CMS/HCC) 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 elsewhere (CMS/HCC) Secondary hyperparathyroidism of renal origin (CMS/HCC) Secondary hyperparathyroidism (of renal origin) Hypertensive chronic kidney disease with stage 1 through stage 4 chronic kidney disease, or unspecified chronic kidney disease (CMS/HCC) Age-related osteoporosis without current pathological fracture (CMS/HCC) Essential (primary) hypertension (CMS/HCC) Unspecified essential hypertension Type 2 diabetes mellitus with diabetic neuropathy, unspecified (CMS/HCC) Secondary hyperparathyroidism (CMS/HCC) Secondary hyperparathyroidism (of renal origin) Acute pain of right shoulder Essential (primary) hypertension (CMS/HCC)- Primary Unspecified essential hypertension Fibromyalgia Unspecified myalgia and myositis 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 elsewhere (CMS/HCC) ODALYS (generalized anxiety disorder) ([facility]) Generalized anxiety disorder Type 2 diabetes mellitus without complication, without long-term current use of insulin ([facility]) Status post right rotator cuff repair- Primary documented in this encounter [facility]* Diagnosis Benign essential HTN (CMS/HCC)- Primary Gastroesophageal reflux disease without esophagitis Esophageal reflux Stage 3 chronic kidney disease, unspecified whether stage 3a or 3b CKD (HCC) ([facility]) Class 2 severe obesity due to excess calories with serious comorbidity and body mass index (BMI) of 36.0 to 36.9 in adult ([facility]) Menopause Symptomatic menopausal or female climacteric states Encounter for screening mammogram for malignant neoplasm of breast Encounter for subsequent annual wellness visit (AWV) in Medicare patient- Primary Benign essential HTN ([facility]) Gastroesophageal reflux disease without esophagitis Esophageal reflux Stage 3 chronic kidney disease, unspecified whether stage 3a or 3b CKD (HCC) ([facility]) 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, without long-term current use of insulin, unspecified whether stage 3a or 3b CKD (HCC) ([facility]) Acute pain of right shoulder- Primary Class 2 severe obesity due to excess calories with serious comorbidity and body mass index (BMI) of 36.0 to 36.9 in adult ([facility]) Primary osteoarthritis involving multiple joints Preoperative clearance- Primary Unspecified pre-operative examination Type 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 (CMS/HCC) Malignant neoplasm of unspecified ovary (CMS/HCC) 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 elsewhere ([facility]/HCC) Secondary hyperparathyroidism of renal origin ([facility]/HCC) Secondary hyperparathyroidism (of renal origin) Hypertensive chronic kidney disease with stage 1 through stage 4 chronic kidney disease, or unspecified chronic kidney disease (CMS/HCC) Age-related osteoporosis without current pathological fracture (CMS/HCC) Essential (primary) hypertension (CMS/HCC) Unspecified essential hypertension Type 2 diabetes mellitus with diabetic neuropathy, unspecified (CMS/HCC) Secondary hyperparathyroidism (CMS/HCC) Secondary hyperparathyroidism (of renal origin) Acute pain of right shoulder Essential (primary) hypertension (CMS/HCC)- Primary Unspecified essential hypertension Fibromyalgia Unspecified myalgia and myositis 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 elsewhere (CMS/HCC) ODALYS (generalized anxiety disorder) (CMS/HCC) Generalized anxiety disorder Type 2 diabetes mellitus without complication, without long-term current use of insulin (CMS/HCC) Acute pain of right shoulder- Primary Shoulder stiffness, right documented in this encounter [facility] HealthcareEvaluation note* Diagnosis Benign essential HTN (CMS/HCC)- Primary Gastroesophageal reflux disease without esophagitis Esophageal reflux Stage 3 chronic kidney disease, unspecified whether stage 3a or 3b CKD (HCC) (CMS/HCC) Class 2 severe obesity due to excess calories with serious comorbidity and body mass index (BMI) of 36.0 to 36.9 in adult ([facility]) Menopause Symptomatic menopausal or female climacteric states Encounter for screening mammogram for malignant neoplasm of breast Encounter for subsequent annual wellness visit (AWV) in Medicare patient- Primary Benign essential HTN (CMS/HCC) Gastroesophageal reflux disease without esophagitis Esophageal reflux Stage 3 chronic kidney disease, unspecified whether stage 3a or 3b CKD (HCC) ([facility]/HCC) 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, without long-term current use of insulin, unspecified whether stage 3a or 3b CKD (HCC) (CMS/HCC) Acute pain of right shoulder- Primary Class 2 severe obesity due to excess calories with serious comorbidity and body mass index (BMI) of 36.0 to 36.9 in adult ([facility]) Primary osteoarthritis involving multiple joints Preoperative clearance- Primary Unspecified pre-operative examination Type 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 (CMS/HCC) Malignant neoplasm of unspecified ovary (CMS/HCC) 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 elsewhere ([facility]/HCC) Secondary hyperparathyroidism of renal origin (CMS/HCC) Secondary hyperparathyroidism (of renal origin) Hypertensive chronic kidney disease with stage 1 through stage 4 chronic kidney disease, or unspecified chronic kidney disease (CMS/HCC) Age-related osteoporosis without current pathological fracture (CMS/HCC) Essential (primary) hypertension (CMS/HCC) Unspecified essential hypertension Type 2 diabetes mellitus with diabetic neuropathy, unspecified (CMS/HCC) Secondary hyperparathyroidism (CMS/HCC) Secondary hyperparathyroidism (of renal origin) Acute pain of right shoulder Essential (primary) hypertension (CMS/HCC)- Primary Unspecified essential hypertension Fibromyalgia Unspecified myalgia and myositis 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 elsewhere (CMS/HCC) ODALYS (generalized anxiety disorder) ([facility]) Generalized anxiety disorder Type 2 diabetes mellitus without complication, without long-term current use of insulin ([facility]) Arthropathy, unspecified Unspecified osteoarthritis, unspecified site documented in this encounter [facility] HealthcareEvaluation [facility]* Diagnosis Benign essential HTN (CMS/HCC)- Primary Gastroesophageal reflux disease without esophagitis Esophageal reflux Stage 3 chronic kidney disease, unspecified whether stage 3a or 3b CKD (HCC) ([facility]) Class 2 severe obesity due to excess calories with serious comorbidity and body mass index (BMI) of 36.0 to 36.9 in adult ([facility]) Menopause Symptomatic menopausal or female climacteric states Encounter for screening mammogram for malignant neoplasm of breast Encounter for subsequent annual wellness visit (AWV) in Medicare patient- Primary Benign essential HTN ([facility]/HCC) Gastroesophageal reflux disease without esophagitis Esophageal reflux Stage 3 chronic kidney disease, unspecified whether stage 3a or 3b CKD (HCC) ([facility]) 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, without long-term current use of insulin, unspecified whether stage 3a or 3b CKD (HCC) ([facility]/HCC) Acute pain of right shoulder- Primary Class 2 severe obesity due to excess calories with serious comorbidity and body mass index (BMI) of 36.0 to 36.9 in adult ([facility]) Primary osteoarthritis involving multiple joints Preoperative clearance- Primary Unspecified pre-operative examination Type 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 ([facility]/HCC) Malignant neoplasm of unspecified ovary ([facility]) 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 elsewhere ([facility]) Secondary hyperparathyroidism of renal origin ([facility]/HCC) Secondary hyperparathyroidism (of renal origin) Hypertensive chronic kidney disease with stage 1 through stage 4 chronic kidney disease, or unspecified chronic kidney disease ([facility]/HCC) Age-related osteoporosis without current pathological fracture ([facility]/HCC) Essential (primary) hypertension (CMS/HCC) Unspecified essential hypertension Type 2 diabetes mellitus with diabetic neuropathy, unspecified ([facility]) Secondary hyperparathyroidism ([facility]/HCC) Secondary hyperparathyroidism (of renal origin) Acute pain of right shoulder Essential (primary) hypertension (CMS/HCC)- Primary Unspecified essential hypertension Fibromyalgia Unspecified myalgia and myositis 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 elsewhere (CMS/HCC) ODALYS (generalized anxiety disorder) ([facility]/HCC) Generalized anxiety disorder Type 2 diabetes mellitus without complication, without long-term current use of insulin (CMS/HCC) Acute pain of right shoulder- Primary Shoulder stiffness, right documented in this encounter [facility] HealthcareEvaluation note* Diagnosis Benign essential HTN (CMS/HCC)- Primary Gastroesophageal reflux disease without esophagitis Esophageal reflux Stage 3 chronic kidney disease, unspecified whether stage 3a or 3b CKD (HCC) (CMS/HCC) Class 2 severe obesity due to excess calories with serious comorbidity and body mass index (BMI) of 36.0 to 36.9 in adult ([facility]) Menopause Symptomatic menopausal or female climacteric states Encounter for screening mammogram for malignant neoplasm of breast Encounter for subsequent annual wellness visit (AWV) in Medicare patient- Primary Benign essential HTN (CMS/HCC) Gastroesophageal reflux disease without esophagitis Esophageal reflux Stage 3 chronic kidney disease, unspecified whether stage 3a or 3b CKD (HCC) ([facility]) 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, without long-term current use of insulin, unspecified whether stage 3a or 3b CKD (HCC) ([facility]/HCC) Acute pain of right shoulder- Primary Class 2 severe obesity due to excess calories with serious comorbidity and body mass index (BMI) of 36.0 to 36.9 in adult ([facility]) Primary osteoarthritis involving multiple joints Preoperative clearance- Primary Unspecified pre-operative examination Type 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 (CMS/HCC) Malignant neoplasm of unspecified ovary (CMS/HCC) 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 elsewhere ([facility]/HCC) Secondary hyperparathyroidism of renal origin ([facility]/HCC) Secondary hyperparathyroidism (of renal origin) Hypertensive chronic kidney disease with stage 1 through stage 4 chronic kidney disease, or unspecified chronic kidney disease ([facility]/HCC) Age-related osteoporosis without current pathological fracture ([facility]/HCC) Essential (primary) hypertension (CMS/HCC) Unspecified essential hypertension Type 2 diabetes mellitus with diabetic neuropathy, unspecified (CMS/HCC) Secondary hyperparathyroidism (CMS/HCC) Secondary hyperparathyroidism (of renal origin) Acute pain of right shoulder Essential (primary) hypertension (CMS/HCC)- Primary Unspecified essential hypertension Fibromyalgia Unspecified myalgia and myositis 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 elsewhere (CMS/HCC) ODALYS (generalized anxiety disorder) ([facility]) Generalized anxiety disorder Type 2 diabetes mellitus without complication, without long-term current use of insulin ([facility]) Acute pain of right shoulder- Primary Shoulder stiffness, right documented in this encounter [facility] HealthcareEvaluation note* Diagnosis Benign essential HTN (CMS/HCC)- Primary Gastroesophageal reflux disease without esophagitis Esophageal reflux Stage 3 chronic kidney disease, unspecified whether stage 3a or 3b CKD (HCC) ([facility]) Class 2 severe obesity due to excess calories with serious comorbidity and body mass index (BMI) of 36.0 to 36.9 in adult ([facility]) Menopause Symptomatic menopausal or female climacteric states Encounter for screening mammogram for malignant neoplasm of breast Encounter for subsequent annual wellness visit (AWV) in Medicare patient- Primary Benign essential HTN ([facility]/HCC) Gastroesophageal reflux disease without esophagitis Esophageal reflux Stage 3 chronic kidney disease, unspecified whether stage 3a or 3b CKD (HCC) ([facility]) 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, without long-term current use of insulin, unspecified whether stage 3a or 3b CKD (HCC) ([facility]) Acute pain of right shoulder- Primary Class 2 severe obesity due to excess calories with serious comorbidity and body mass index (BMI) of 36.0 to 36.9 in adult ([facility]) Primary osteoarthritis involving multiple joints Preoperative clearance- Primary Unspecified pre-operative examination Type 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 ([facility]) Malignant neoplasm of unspecified ovary ([facility]) 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 elsewhere ([facility]) Secondary hyperparathyroidism of renal origin ([facility]/HCC) Secondary hyperparathyroidism (of renal origin) Hypertensive chronic kidney disease with stage 1 through stage 4 chronic kidney disease, or unspecified chronic kidney disease ([facility]/HCC) Age-related osteoporosis without current pathological fracture ([facility]) Essential (primary) hypertension ([facility]/HCC) Unspecified essential hypertension Type 2 diabetes mellitus with diabetic neuropathy, unspecified ([facility]) Secondary hyperparathyroidism ([facility]/HCC) Secondary hyperparathyroidism (of renal origin) Acute pain of right shoulder Essential (primary) hypertension (CMS/HCC)- Primary Unspecified essential hypertension Fibromyalgia Unspecified myalgia and myositis 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 elsewhere ([facility]/HCC) ODALYS (generalized anxiety disorder) ([facility]) Generalized anxiety disorder Type 2 diabetes mellitus without complication, without long-term current use of insulin ([facility]) Acute pain of right shoulder- Primary Shoulder stiffness, right documented in this encounter [facility] HealthcareEvaluation note* Diagnosis Benign essential HTN (CMS/HCC)- Primary Gastroesophageal reflux disease without esophagitis Esophageal reflux Stage 3 chronic kidney disease, unspecified whether stage 3a or 3b CKD (HCC) ([facility]) Class 2 severe obesity due to excess calories with serious comorbidity and body mass index (BMI) of 36.0 to 36.9 in adult ([facility]) Menopause Symptomatic menopausal or female climacteric states Encounter for screening mammogram for malignant neoplasm of breast Encounter for subsequent annual wellness visit (AWV) in Medicare patient- Primary Benign essential HTN ([facility]/HCC) Gastroesophageal reflux disease without esophagitis Esophageal reflux Stage 3 chronic kidney disease, unspecified whether stage 3a or 3b CKD (HCC) ([facility]) 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, without long-term current use of insulin, unspecified whether stage 3a or 3b CKD (HCC) ([facility]) Acute pain of right shoulder- Primary Class 2 severe obesity due to excess calories with serious comorbidity and body mass index (BMI) of 36.0 to 36.9 in adult ([facility]) Primary osteoarthritis involving multiple joints Preoperative clearance- Primary Unspecified pre-operative examination Type 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 ([facility]) Malignant neoplasm of unspecified ovary ([facility]) 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 elsewhere ([facility] Secondary hyperparathyroidism of renal origin ([facility]) Secondary hyperparathyroidism (of renal origin) Hypertensive chronic kidney disease with stage 1 through stage 4 chronic kidney disease, or unspecified chronic kidney disease ([facility] Age-related osteoporosis without current pathological fracture ([facility] Essential (primary) hypertension ([facility]) Unspecified essential hypertension Type 2 diabetes mellitus with diabetic neuropathy, unspecified ([facility]) Secondary hyperparathyroidism ([facility]/HCC) Secondary hyperparathyroidism (of renal origin) Acute pain of right shoulder Essential (primary) hypertension ([facility])- Primary Unspecified essential hypertension Fibromyalgia Unspecified myalgia and myositis 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 elsewhere ([facility]) ODALYS (generalized anxiety disorder) ([facility]) Generalized anxiety disorder Type 2 diabetes mellitus without complication, without long-term current use of insulin ([facility]/HCC) Gastro-esophageal reflux disease without esophagitis Esophageal reflux documented in this encounter [facility] HealthcareEvaluation note* Diagnosis Benign essential HTN (CMS/HCC)- Primary Gastroesophageal reflux disease without esophagitis Esophageal reflux Stage 3 chronic kidney disease, unspecified whether stage 3a or 3b CKD (HCC) ([facility]/HCC) Class 2 severe obesity due to excess calories with serious comorbidity and body mass index (BMI) of 36.0 to 36.9 in adult ([facility]) Menopause Symptomatic menopausal or female climacteric states Encounter for screening mammogram for malignant neoplasm of breast Encounter for subsequent annual wellness visit (AWV) in Medicare patient- Primary Benign essential HTN (CMS/HCC) Gastroesophageal reflux disease without esophagitis Esophageal reflux Stage 3 chronic kidney disease, unspecified whether stage 3a or 3b CKD (HCC) ([facility]) 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, without long-term current use of insulin, unspecified whether stage 3a or 3b CKD (HCC) ([facility]) Acute pain of right shoulder- Primary Class 2 severe obesity due to excess calories with serious comorbidity and body mass index (BMI) of 36.0 to 36.9 in adult ([facility]) Primary osteoarthritis involving multiple joints Preoperative clearance- Primary Unspecified pre-operative examination Type 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 ([facility]/HCC) Malignant neoplasm of unspecified ovary ([facility]) 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 elsewhere ([facility]/HCC) Secondary hyperparathyroidism of renal origin ([facility]HCC) Secondary hyperparathyroidism (of renal origin) Hypertensive chronic kidney disease with stage 1 through stage 4 chronic kidney disease, or unspecified chronic kidney disease ([facility]HCC) Age-related osteoporosis without current pathological fracture ([facility]) Essential (primary) hypertension ([facility]/HCC) Unspecified essential hypertension Type 2 diabetes mellitus with diabetic neuropathy, unspecified (CMS/HCC) Secondary hyperparathyroidism ([facility]/HCC) Secondary hyperparathyroidism (of renal origin) Acute pain of right shoulder Essential (primary) hypertension ([facility]/HCC)- Primary Unspecified essential hypertension Fibromyalgia Unspecified myalgia and myositis 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 elsewhere ([facility]/HCC) ODALYS (generalized anxiety disorder) ([facility]) Generalized anxiety disorder Type 2 diabetes mellitus without complication, without long-term current use of insulin ([facility]) Acute pain of right shoulder- Primary Shoulder stiffness, right documented in this encounter [facility] HealthcareEvaluation note* Diagnosis Benign essential HTN (CMS/HCC)- Primary Gastroesophageal reflux disease without esophagitis Esophageal reflux Stage 3 chronic kidney disease, unspecified whether stage 3a or 3b CKD (HCC) ([facility]) Class 2 severe obesity due to excess calories with serious comorbidity and body mass index (BMI) of 36.0 to 36.9 in adult ([facility]) Menopause Symptomatic menopausal or female climacteric states Encounter for screening mammogram for malignant neoplasm of breast Encounter for subsequent annual wellness visit (AWV) in Medicare patient- Primary Benign essential HTN (CMS/HCC) Gastroesophageal reflux disease without esophagitis Esophageal reflux Stage 3 chronic kidney disease, unspecified whether stage 3a or 3b CKD (HCC) ([facility]) 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, without long-term current use of insulin, unspecified whether stage 3a or 3b CKD (HCC) ([facility]) Acute pain of right shoulder- Primary Class 2 severe obesity due to excess calories with serious comorbidity and body mass index (BMI) of 36.0 to 36.9 in adult ([facility]) Primary osteoarthritis involving multiple joints Preoperative clearance- Primary Unspecified pre-operative examination Type 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 ([facility]) Malignant neoplasm of unspecified ovary ([facility]) 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 elsewhere ([facility] Secondary hyperparathyroidism of renal origin ([facility]) Secondary hyperparathyroidism (of renal origin) Hypertensive chronic kidney disease with stage 1 through stage 4 chronic kidney disease, or unspecified chronic kidney disease ([facility] Age-related osteoporosis without current pathological fracture ([facility] Essential (primary) hypertension ([facility]) Unspecified essential hypertension Type 2 diabetes mellitus with diabetic neuropathy, unspecified ([facility]) Secondary hyperparathyroidism ([facility]) Secondary hyperparathyroidism (of renal origin) Acute pain of right shoulder Essential (primary) hypertension ([facility])- Primary Unspecified essential hypertension Fibromyalgia Unspecified myalgia and myositis 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 elsewhere ([facility]) ODALYS (generalized anxiety disorder) ([facility]) Generalized anxiety disorder Type 2 diabetes mellitus without complication, without long-term current use of insulin ([facility]) Status post right rotator cuff repair- Primary Right shoulder pain, unspecified chronicity documented in this encounter [facility] HealthcareEvaluation note* Diagnosis Benign essential HTN ([facility]/HCC)- Primary Gastroesophageal reflux disease without esophagitis Esophageal reflux Stage 3 chronic kidney disease, unspecified whether stage 3a or 3b CKD (HCC) ([facility]) Class 2 severe obesity due to excess calories with serious comorbidity and body mass index (BMI) of 36.0 to 36.9 in adult ([facility]) Menopause Symptomatic menopausal or female climacteric states Encounter for screening mammogram for malignant neoplasm of breast Encounter for subsequent annual wellness visit (AWV) in Medicare patient- Primary Benign essential HTN ([facility]) Gastroesophageal reflux disease without esophagitis Esophageal reflux Stage 3 chronic kidney disease, unspecified whether stage 3a or 3b CKD (HCC) ([facility]) 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, without long-term current use of insulin, unspecified whether stage 3a or 3b CKD (HCC) ([facility]) Acute pain of right shoulder- Primary Class 2 severe obesity due to excess calories with serious comorbidity and body mass index (BMI) of 36.0 to 36.9 in adult ([facility]) Primary osteoarthritis involving multiple joints Preoperative clearance- Primary Unspecified pre-operative examination Type 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 ([facility]) Malignant neoplasm of unspecified ovary ([facility]) 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 elsewhere ([facility] Secondary hyperparathyroidism of renal origin ([facility]) Secondary hyperparathyroidism (of renal origin) Hypertensive chronic kidney disease with stage 1 through stage 4 chronic kidney disease, or unspecified chronic kidney disease ([facility] Age-related osteoporosis without current pathological fracture ([facility] Essential (primary) hypertension ([facility]) Unspecified essential hypertension Type 2 diabetes mellitus with diabetic neuropathy, unspecified ([facility]) Secondary hyperparathyroidism ([facility]) Secondary hyperparathyroidism (of renal origin) Acute pain of right shoulder Essential (primary) hypertension ([facility])- Primary Unspecified essential hypertension Fibromyalgia Unspecified myalgia and myositis 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 elsewhere ([facility]) ODALYS (generalized anxiety disorder) ([facility]) Generalized anxiety disorder Type 2 diabetes mellitus without complication, without long-term current use of insulin ([facility]) Acute pain of right shoulder- Primary Shoulder stiffness, right documented in this encounter [facility] HealthcareEvaluation note* Diagnosis Benign essential HTN ([facility]/HCC)- Primary Gastroesophageal reflux disease without esophagitis Esophageal reflux Stage 3 chronic kidney disease, unspecified whether stage 3a or 3b CKD (HCC) ([facility]) Class 2 severe obesity due to excess calories with serious comorbidity and body mass index (BMI) of 36.0 to 36.9 in adult ([facility]) Menopause Symptomatic menopausal or female climacteric states Encounter for screening mammogram for malignant neoplasm of breast Encounter for subsequent annual wellness visit (AWV) in Medicare patient- Primary Benign essential HTN ([facility]) Gastroesophageal reflux disease without esophagitis Esophageal reflux Stage 3 chronic kidney disease, unspecified whether stage 3a or 3b CKD (HCC) ([facility]) 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, without long-term current use of insulin, unspecified whether stage 3a or 3b CKD (HCC) ([facility]) Acute pain of right shoulder- Primary Class 2 severe obesity due to excess calories with serious comorbidity and body mass index (BMI) of 36.0 to 36.9 in adult ([facility]) Primary osteoarthritis involving multiple joints Preoperative clearance- Primary Unspecified pre-operative examination Type 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 ([facility]) Malignant neoplasm of unspecified ovary ([facility]) 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 elsewhere ([facility] Secondary hyperparathyroidism of renal origin ([facility]) Secondary hyperparathyroidism (of renal origin) Hypertensive chronic kidney disease with stage 1 through stage 4 chronic kidney disease, or unspecified chronic kidney disease ([facility] Age-related osteoporosis without current pathological fracture ([facility] Essential (primary) hypertension ([facility]) Unspecified essential hypertension Type 2 diabetes mellitus with diabetic neuropathy, unspecified ([facility]) Secondary hyperparathyroidism ([facility]) Secondary hyperparathyroidism (of renal origin) Acute pain of right shoulder Essential (primary) hypertension ([facility])- Primary Unspecified essential hypertension Fibromyalgia Unspecified myalgia and myositis 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 elsewhere ([facility]) ODALYS (generalized anxiety disorder) ([facility]) Generalized anxiety disorder Type 2 diabetes mellitus without complication, without long-term current use of insulin ([facility]) Fibromyalgia- Primary Unspecified myalgia and myositis 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 elsewhere ([facility]) Class 2 severe obesity due to excess calories with serious comorbidity and body mass index (BMI) of 36.0 to 36.9 in adult ([facility] ODALYS (generalized anxiety disorder) ([facility]) Generalized anxiety disorder Essential (primary) hypertension ([facility]) Unspecified essential hypertension Age-related osteoporosis without current pathological fracture ([facility]) Primary osteoarthritis involving multiple joints Dermatophytosis of nail- Primary Dystrophic nail Other specified disease of nail Pain around toenail, right foot Pain around toenail, left foot documented in this encounter [facility] HealthcareEvaluation note* Diagnosis Benign essential HTN (CMS/HCC)- Primary Gastroesophageal reflux disease without esophagitis Esophageal reflux Stage 3 chronic kidney disease, unspecified whether stage 3a or 3b CKD (HCC) ([facility]) Class 2 severe obesity due to excess calories with serious comorbidity and body mass index (BMI) of 36.0 to 36.9 in adult ([facility]) Menopause Symptomatic menopausal or female climacteric states Encounter for screening mammogram for malignant neoplasm of breast Encounter for subsequent annual wellness visit (AWV) in Medicare patient- Primary Benign essential HTN ([facility]/HCC) Gastroesophageal reflux disease without esophagitis Esophageal reflux Stage 3 chronic kidney disease, unspecified whether stage 3a or 3b CKD (HCC) ([facility]) 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, without long-term current use of insulin, unspecified whether stage 3a or 3b CKD (HCC) ([facility]) Acute pain of right shoulder- Primary Class 2 severe obesity due to excess calories with serious comorbidity and body mass index (BMI) of 36.0 to 36.9 in adult ([facility]) Primary osteoarthritis involving multiple joints Preoperative clearance- Primary Unspecified pre-operative examination Type 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 ([facility]) Malignant neoplasm of unspecified ovary ([facility]) 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 elsewhere ([facility] Secondary hyperparathyroidism of renal origin ([facility]) Secondary hyperparathyroidism (of renal origin) Hypertensive chronic kidney disease with stage 1 through stage 4 chronic kidney disease, or unspecified chronic kidney disease ([facility]) Age-related osteoporosis without current pathological fracture ([facility] Essential (primary) hypertension ([facility]) Unspecified essential hypertension Type 2 diabetes mellitus with diabetic neuropathy, unspecified ([facility] [facility]) Secondary hyperparathyroidism ([facility]/H[facility]) Secondary hyperparathyroidism (of renal origin) Acute pain of right shoulder Essential (primary) hypertension ([facility])- Primary Unspecified essential hypertension Fibromyalgia Unspecified myalgia and myositis 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 elsewhere ([facility]) ODALYS (generalized anxiety disorder) ([facility]) Generalized anxiety disorder Type 2 diabetes mellitus without complication, without long-term current use of insulin ([facility]) Status post right rotator cuff repair- Primary Right shoulder pain, unspecified chronicity Fibromyalgia- Primary Unspecified myalgia and myositis 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 elsewhere ([facility]) Class 2 severe obesity due to excess calories with serious comorbidity and body mass index (BMI) of 36.0 to 36.9 in adult ([facility]) ODALYS (generalized anxiety disorder) ([facility]) Generalized anxiety disorder Essential (primary) hypertension ([facility] Unspecified essential hypertension Age-related osteoporosis without current pathological fracture ([facility]) Primary osteoarthritis involving multiple joints documented in this encounter [facility] HealthcareEvaluation note* Diagnosis Right shoulder pain, unspecified chronicity- Primary [facility] Diagnosis Right rotator cuff tear arthropathy- [facility] Diagnosis Benign essential HTN ([facility])- Primary Gastroesophageal reflux disease without esophagitis Esophageal reflux Stage 3 chronic kidney disease, unspecified whether stage 3a or 3b CKD (HCC) ([facility]) Class 2 severe obesity due to excess calories with serious comorbidity and body mass index (BMI) of 36.0 to 36.9 in adult ([facility]) Menopause Symptomatic menopausal or female climacteric states Encounter for screening mammogram for malignant neoplasm of breast Encounter for subsequent annual wellness visit (AWV) in Medicare patient- Primary Benign essential HTN ([facility]) Gastroesophageal reflux disease without esophagitis Esophageal reflux Stage 3 chronic kidney disease, unspecified whether stage 3a or 3b CKD (HCC) ([facility]) 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, without long-term current use of insulin, unspecified whether stage 3a or 3b CKD (HCC) ([facility]) Acute pain of right shoulder- Primary Class 2 severe obesity due to excess calories with serious comorbidity and body mass index (BMI) of 36.0 to 36.9 in adult ([facility]) Primary osteoarthritis involving multiple joints Preoperative clearance- Primary Unspecified pre-operative examination Type 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 ([facility]) Malignant neoplasm of unspecified ovary ([facility]) 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 elsewhere ([facility] Secondary hyperparathyroidism of renal origin ([facility]) Secondary hyperparathyroidism (of renal origin) Hypertensive chronic kidney disease with stage 1 through stage 4 chronic kidney disease, or unspecified chronic kidney disease ([facility]) Age-related osteoporosis without current pathological fracture ([facility] Essential (primary) hypertension ([facility]) Unspecified essential hypertension Type 2 diabetes mellitus with diabetic neuropathy, unspecified ([facility]) Secondary hyperparathyroidism ([facility]) Secondary hyperparathyroidism (of renal origin) Acute pain of right shoulder Essential (primary) hypertension ([facility])- Primary Unspecified essential hypertension Fibromyalgia Unspecified myalgia and myositis 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 elsewhere ([facility]) ODALYS (generalized anxiety disorder) ([facility]) Generalized anxiety disorder Type 2 diabetes mellitus without complication, without long-term current use of insulin ([facility]) Fibromyalgia- Primary Unspecified myalgia and myositis 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 elsewhere ([facility]) Class 2 severe obesity due to excess calories with serious comorbidity and body mass index (BMI) of 36.0 to 36.9 in adult ([facility]) ODALYS (generalized anxiety disorder) ([facility]) Generalized anxiety disorder Essential (primary) hypertension ([facility]) Unspecified essential hypertension Age-related osteoporosis without current pathological fracture ([facility]) Primary osteoarthritis involving multiple joints documented in this encounter [facility] HealthcareEvaluation note* Diagnosis Status post right rotator cuff repair documented in this encounter [facility]* Diagnosis Benign essential HTN ([facility])- Primary Gastroesophageal reflux disease without esophagitis Esophageal reflux Stage 3 chronic kidney disease, unspecified whether stage 3a or 3b CKD (HCC) ([facility]) Class 2 severe obesity due to excess calories with serious comorbidity and body mass index (BMI) of 36.0 to 36.9 in adult ([facility]) Menopause Symptomatic menopausal or female climacteric states Encounter for screening mammogram for malignant neoplasm of breast Encounter for subsequent annual wellness visit (AWV) in Medicare patient- Primary Benign essential HTN ([facility]) Gastroesophageal reflux disease without esophagitis Esophageal reflux Stage 3 chronic kidney disease, unspecified whether stage 3a or 3b CKD (HCC) ([facility]) 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, without long-term current use of insulin, unspecified whether stage 3a or 3b CKD (HCC) ([facility]) Acute pain of right shoulder- Primary Class 2 severe obesity due to excess calories with serious comorbidity and body mass index (BMI) of 36.0 to 36.9 in adult ([facility]) Primary osteoarthritis involving multiple joints Preoperative clearance- Primary Unspecified pre-operative examination Type 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 ([facility]) Malignant neoplasm of unspecified ovary ([facility]) 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 elsewhere ([facility] Secondary hyperparathyroidism of renal origin ([facility]) Secondary hyperparathyroidism (of renal origin) Hypertensive chronic kidney disease with stage 1 through stage 4 chronic kidney disease, or unspecified chronic kidney disease ([facility]) Age-related osteoporosis without current pathological fracture ([facility]) Essential (primary) hypertension ([facility]) Unspecified essential hypertension Type 2 diabetes mellitus with diabetic neuropathy, unspecified ([facility]) Secondary hyperparathyroidism ([facility]) Secondary hyperparathyroidism (of renal origin) Acute pain of right shoulder Essential (primary) hypertension ([facility])- Primary Unspecified essential hypertension Fibromyalgia Unspecified myalgia and myositis 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 elsewhere ([facility]) ODALYS (generalized anxiety disorder) ([facility]) Generalized anxiety disorder Type 2 diabetes mellitus without complication, without long-term current use of insulin ([facility]) Fibromyalgia- Primary Unspecified myalgia and myositis 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 elsewhere ([facility]) Class 2 severe obesity due to excess calories with serious comorbidity and body mass index (BMI) of 36.0 to 36.9 in adult ([facility]) ODALYS (generalized anxiety disorder) ([facility]) Generalized anxiety disorder Essential (primary) hypertension ([facility]) Unspecified essential hypertension Age-related osteoporosis without current pathological fracture ([facility]) Primary osteoarthritis involving multiple joints Class 2 severe obesity due to excess calories with serious comorbidity and body mass index (BMI) of 36.0 to 36.9 in adult ([facility])- Primary Essential (primary) hypertension ([facility]) Unspecified essential hypertension Acute non-recurrent pansinusitis Encounter for screening mammogram for malignant neoplasm of breast documented in this encounter [facility] HealthcareEvaluation note* Diagnosis Essential (primary) hypertension ([facility])- Primary Unspecified essential hypertension Fibromyalgia Unspecified myalgia and myositis 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 elsewhere ([facility]) ODALYS (generalized anxiety disorder) ([facility]) Generalized anxiety disorder Type 2 diabetes mellitus without complication, without long-term current use of insulin ([facility]) documented in this encounter [facility] HealthcareEvaluation note* Diagnosis Acute pain of right shoulder- Primary Shoulder stiffness, right documented in this encounter [facility] N[facility]ative - Reported* Type Description [...] LID TUCK 03/2019 Hospitalization History SEE ABOVE ethority Other InstructionsNot on filedocumented in this encounter [facility] SystemInstructionsNot on filedocumented in this encounter 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 [address] [place] [address] Phone: tel: fax: Leo Goodwin, PT [address] [place] [address] Phone: tel: fax: Referral ID Status Reason Start Date Expiration Date Visits Requested Visits Authorized [id number] Authorized Specialty Services Required 11/14/2023 05/12/2024 30 30 [facility] Healthcare Summary Purpose Family History Relationship Condition Age [...] kidney disease) stage 3, GFR 30-59 ml/min [id number] Hypomagnesemia Iron deficiency Secondary hyperparathyroidism Type 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 Vitamin D deficiency Chief Complaint 6 month f/u / meter RENAL 6 MONTH F/U Reason for Visit BMI 34.0-34.9,adult Dietary counseling and surveillance Hyperlipidemia Hypertension Type 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 CKD (chronic kidney disease) stage 3, GFR 30-59 ml/min [id number] Hypomagnesemia Iron deficiency Secondary hyperparathyroidism Type 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 Vitamin D deficiency Reason for Referral Specialty Diagnoses / Procedures Referred By Tyshawn conti Referred To Contact Physical Therapy Diagnoses Status post right rotator cuff repair Procedures [place] OFFICE/OUTPATIENT [facility] 60 MINUTES May Pulido, CALENDER ROLL OPERATOR [address] [place] [address] Leo Goodwin, PT [address] [place] [address] Referral ID Status Reason Start Date Expiration Date Visits Requested Visits Authorized [id number] Authorized Specialty Services Required 11/14/2023 05/12/2024 10 10 Additional Source Comments INFORMATION SOURCE (unrecogn ized section and content) DATE CREATED AUTHOR 08/24/2017 [facility] DATE CREATED AUTHOR AUTHOR'S ORGANIZ ATION 06/08/[address] [facility] DATE CREATED AUTHOR AUTHOR'S ORGANIZ ATION 10/07/2023 [facility] DATE CREATED AUTHOR AUTHOR'S ORGANIZ ATION 01/22/2024 [facility] DATE CREATED AUTHOR AUTHOR'S ORGANIZ ATION 01/23/2024 [facility] DATE CREATED AUTHOR AUTHOR'S ORGANIZ ATION 02/09/2024 [facility] dical Specialists EPIC DATE CREATED AUTHOR AUTHOR'S ORGANIZ ATION 02/12/2024 [facility] y[facility] REASON FOR VISIT (unrecogniz ed section and content) Reason Comments Nail care Ashley Olson i s a 77 y.o. female who presents for Nail care. BS 120 A1C 6.0 (03/2023) LV Dr. Bernardino Talavera 04/05/2023 SS: 8.5-9). Specialty Diagnoses / Procedures Referred By Tyshawn conti Referred To Contact Physical Therapy Diagnoses Status post right rotator cuff repair Procedures [place] OFFICE/OUTPATIENT [facility] 60 MINUTES May Pulido, CALENDER ROLL OPERATOR [address] [place] [address] Leo Goodwin, PT [address] [place] [address] Referral ID Status Reason Start Date Expiration Date Visits Requested Visits Authorized [id number] Authorized Specialty Services Required 11/14/2023 05/12/2024 30 30 Reason Comments Follow-up Reason Comments Med Refill Reason Comments Diabetic nail care Ashley Pires Felipe christiano s a 78 y.o. female who presents for DM Foot Care. PCP: Bernardino Talavera LV: 10/04/2023. A1C: 5.5, BS: 103 SS: 8.5-9 Reason Comments Pain Reason Comments Establish Care Right Shoulder Pain Reason Comments Follow-up Care Teams (unrecognized sec tion and content) Sdc Teacher Relationship Specialty Start Date End Date Lex Choi MD [address] [place] [address] PCP - General Family Medicine 02/07/23 Dana Tapia NP [address] [place] [address] Nurse Practitioner Family Medicine 10/11/22 Sdc Teacher Relationship Specialty Start Date End Date Lex Choi MD [address] [place] [address] PCP - General Family Medicine 02/07/23 Dana Tapia, CHENTE [address] [place] [address] Nurse Practitioner [facility] 10/11/22 Team Status: Active Member Role Status Dates Lex Choi MD Primary Care Provider Active Team Status: Inactive Member Role Status Dates Bernardino Talavera APRN Attending Provider Active Start: March 31, 2023 End: March 31, 2023 Team Status: Inactive Member Role Status Dates PHYSICIAN FAMILY Primary Care Provider Active Start: March [...] October 04, 2023 End: October 04, 2023 Sdc Teacher Relationship Specialty Start Date End Date Lex Choi MD [address] [place] [address] PCP - General Family Medicine 02/07/23 Dana Tapia NP [address] [place] [address] Nurse Practitioner Family Medicine 10/11/22 Sdc Teacher Relationship Specialty Start Date End Date Lex Choi MD [address] [place] [address] PCP - General Family Medicine 02/07/23 Dana Tapia NP [address] [place] [address] Nurse Practitioner Family Medicine 10/11/22 Sdc Teacher Relationship Specialty Start Date End Date Lex Choi MD [address] [place] [address] PCP - General Family Medicine 02/07/23 Dana Tapia NP [address] [place] [address] Nurse Practitioner Family Medicine 10/11/22 Sdc Teacher Relationship Specialty Start Date End Date Lex Choi MD [address] [place] [address] PCP - General Family Medicine 02/07/23 Dana Tapia NP [address] [place] [address] Nurse Practitioner Family Medicine 10/11/22 Sdc Teacher Relationship Specialty Start Date End Date Lex Choi MD [address] [place] [address] PCP - General Family Medicine 02/07/23 Dana Tapia NP [address] [place] [address] Nurse Practitioner Family Medicine 10/11/22 Sdc Teacher Relationship Specialty Start Date End Date Lex Chio MD [address] [place] [address] PCP - General Family Medicine 02/07/23 Dana Tapia NP [address] [place] [address] Nurse Practitioner Family Medicine 10/11/22 Sdc Teacher Relationship Specialty Start Date End Date Lex Choi MD [address] [place] [address] PCP - General Family Medicine 02/07/23 Dana Tapia NP [address] [place] [address] Nurse Practitioner Family Medicine 10/11/22 Sdc Teacher Relationship Specialty Start Date End Date Lex Choi MD [address] [place] [address] PCP - General Family Medicine 02/07/23 Dana Tapia NP [address] [place] [address] Nurse Practitioner Family Medicine 10/11/22 Sdc Teacher Relationship Specialty Start Date End Date Lex Choi MD [address] [place] [address] PCP - General Family Medicine 02/07/23 Dana Tapia NP [address] [place] [address] Nurse Practitioner Family Medicine 10/11/22 Team Status: Active Member Role Status Dates Lex Choi MD Primary Care Provider Active S tart: December 06, 2023 Eboni White MD Attending Provider Active Start : December 06, 2023 Team Status: Inactive Member Role Status Dates Lex Choi MD Primary Care Provider Active S tart: December 12, 2023 End: December 12, 2023 Eboni White MD Attending Provider Active Start : December 12, 2023 End: December 12, 2023 Sdc Teacher Relationship Specialty Start Date End Date Lex Choi MD [address] [place] [phone] PCP - General Family Medicine 02/07/23 Dana Tapia NP [address] [place] [address] Nurse Practitioner Family Medicine 10/11/22 Sdc Teacher Relationship Specialty Start Date End Date Lex Choi MD [address] [place] [address] PCP - General Family Medicine 02/07/23 Dana Tapia NP [address] [place] [address] Nurse Practitioner Family Medicine 10/11/22 Sdc Teacher Relationship Specialty Start Date End Date Lex Choi MD [address] [place] [address] PCP - General Family Medicine 02/07/23 Dana Tapia NP [address] [place] [address] Nurse Practitioner Family Medicine 10/11/22 Sdc Teacher Relationship Specialty Start Date End Date Lex Choi MD [address] [place] [address] PCP - General Family Medicine 02/07/23 Dana Tapia NP [address] [place] [address] Nurse Practitioner Family Medicine 10/11/22 Sdc Teacher Relationship Specialty Start Date End Date Lex Choi MD [address] [place] [address] PCP - General Family Medicine 02/07/23 Dana Tapia NP [address] [place] [address] Nurse Practitioner Family Medicine 10/11/22 Sdc Teacher Relationship Specialty Start Date End Date Lex Choi MD [address] [place] [address] PCP - General Family Medicine 02/07/23 Dana Tapia NP [address] [place] [address] Nurse Practitioner Family Medicine 10/11/22 Sdc Teacher Relationship Specialty Start Date End Date Lex Choi MD [address] [place] [address] PCP - General Family Medicine 02/07/23 Dana Tapia NP [address] [place] [address] Nurse Practitioner Family Medicine 10/11/22 Sdc Teacher Relationship Specialty Start Date End Date Lex Choi MD [address] [place] [address] PCP - General Family Medicine 02/07/23 Dana Tapia NP [address] [place] [address] Nurse Practitioner Family Medicine 10/11/22 Sdc Teacher Relationship Specialty Start Date End Date Lex Choi MD [address] [place] [address] PCP - General Family Medicine 02/07/23 Dana Tapia NP [address] [place] [address] Nurse Practitioner Family Medicine 10/11/22 Sdc Teacher Relationship Specialty Start Date End Date Lex Choi MD [address] [place] [phone] PCP - General Family Medicine 02/07/23 Dana Tapia NP [address] [place] [phone] Nurse Practitioner Family Medicine 10/11/22 Sdc Teacher Relationship Specialty Start Date End Date Lex Choi MD [address] [place] [address] PCP - General Family Medicine 02/07/23 Dana Tapia NP [address] [place] [address] Nurse Practitioner Family Medicine 10/11/22 Sdc Teacher Relationship Specialty Start Date End Date Lex Choi MD [address] [place] [phone] PCP - General Family Medicine 02/07/23 Dana Tapia NP [address] [place] [address] Nurse Practitioner Family Medicine 10/11/22 Sdc Teacher Relationship Specialty Start Date End Date Dana Tapia, T[employer]ER [employer] LAYOUT-RESOURCE MANAGER FORESTER PCP - General Nurse Practitioner 04/03/19 Sdc Teacher Relationship Specialty Start Date End Date Lex Choi MD [address] [place] [address] PCP - General Family Medicine 02/07/23 Dana Tapia NP [address] [place] [address] Nurse Practitioner Family Medicine 10/11/22 Sdc Teacher Relationship Specialty Start Date End Date Lex Choi MD [address] [place] [phone] PCP - General Family Medicine 02/07/23 Dana Tapia NP [address] [place] [address] Nurse Practitioner Family Medicine 10/11/22 Sdc Teacher Relationship Specialty Start Date End Date Lex Choi MD [address] [place] [address] PCP - General Family Medicine 02/07/23 Dana Tapia NP [address] [place] [address] Nurse Practitioner Family Medicine 10/11/22 Sdc Teacher Relationship Specialty Start Date End Date Dana Tapia, TAPER [employer] LAYOUT-RESOURCE MANAGER FORESTER PCP - General Nurse Practitioner 04/03/19 Sdc Teacher Relationship Specialty Start Date End Date Dana Tapia [employer] PCP - General Nurse Practitioner 04/03/19 Sdc Teacher Relationship Specialty Start Date End Date Lex Choi MD [address] [place] [phone] PCP - General Family Medicine 02/07/23 Dana Tapia NP [address] [place] [phone] Nurse Practitioner Family Medicine 10/11/22 Sdc Teacher Relationship Specialty Start Date End Date Lex Choi MD [address] [place] [phone] PCP - General Family Medicine 02/07/23 Dana Tapia NP [address] [place] [phone] Nurse Practitioner Family Medicine 10/11/22 Sdc Teacher Relationship Specialty Start Date End Date Lex Choi MD [address] [place] [phone] PCP - General Family Medicine 02/07/23 Dana Tapia NP [address] [place] [phone] Nurse Practitioner Family Medicine 10/11/22 Sdc Teacher Relationship Specialty Start Date End Date Lex Choi MD [address] [place] [phone] PCP - General Family Medicine 02/07/23 Dana Tapia NP [address] [place] [phone] Nurse Practitioner Family Medicine 10/11/22 Sdc Teacher Relationship Specialty Start Date End Date Lex Choi MD [address] [place] [phone] PCP - General Family Medicine 02/07/23 Dana Tapia NP [address] [place] [phone] Nurse Practitioner Family Medicine 10/11/22 Sdc Teacher Relationship Specialty Start Date End Date Lex Choi MD [address] [place] [phone] PCP - General Family Medicine 02/07/23 Dana Tapia NP [address] [place] [phone] Nurse Practitioner Family Medicine 10/11/22 Sdc Teacher Relationship Specialty Start Date End Date Lex Choi MD [address] [place] [phone] PCP - General Family Medicine 02/07/23 Dana Tapia NP [address] [place] [phone] Nurse Practitioner Family Medicine 10/11/22 Sdc Teacher Relationship Specialty Start Date End Date Lex Choi MD [address] [place] [phone] PCP - General Family Medicine 02/07/23 Dana Tapia NP [address] [place] [phone] Nurse Practitioner Family Medicine 10/11/22 Goals (unrecognized [...] BE BASED ON THE PRIMARY CLINICAL RECORDS. [facility] [employer] [facility] provides no warranty or guarantee of the accuracy or completeness of information in this document.
--- NOTE | 2024-02-17 08:29 | MM_ITS ---
Patient Name: TAMMY SOLORIO MR#: [id number] : 1945 Exam Date: 02/17/2024 Ordering Doctor: LIZETTE Tapia CNP RADIOLOGY REPORT PROCEDURE: MM TOMOSYNTHESIS SCREENING BI COMPARISON: MG MAMM SCREEN 3D RIGOBERTO CAD, 02/05/2022. MM TOMOSYNTHESIS SCREENING BI, 02/15/2023. INDICATIONS: Screening Calculator Name NCI Breast Cancer Risk Assessment Tool 5 Year Breast Cancer Risk 3.80% Lifetime Breast Cancer Risk 7.20% Personal Breast Cancer No Personal Ovarian Cancer Yes, Age 51, Hysterectomy Treatments None Family Cancers Mother with breast cancer at age 63; Sister with uterine cancer at age 23; Brother with liver cancer at age 68. LOCATION: [facility] BREAST COMPOSITION: There are scattered areas of fibroglandular density. FINDINGS: DIAGNOSTIC CATEGORY 1--NEGATIVE. NO CHANGE FROM COMPARISON ASSESSMENT. Scattered benign-appearing calcifications are present. RIGHT BREAST: No significant suspicious finding. LEFT BREAST: No significant suspicious finding. RECOMMENDATIONS: ROUTINE MAMMOGRAM AND CLINICAL EVALUATION IN 12 MONTHS. PLEASE NOTE: A NORMAL MAMMOGRAM DOES NOT EXCLUDE THE POSSIBILITY OF BREAST CANCER. A CLINICALLY SUSPICIOUS PALPABLE LUMP SHOULD BE BIOPSIED. Dictated by: Preston Hancock MD on 02/17/2024 at 09:34 Approved by: Preston Hancock MD on 02/17/2024 at 09:36
== END 2024-02-17 07:56 | disposition home or self-care (01) ==
LOC: MAMMO 07:55
PROVIDERS: PCP Nurse Practitioner; Visit Provider Nurse Practitioner
DX: Z12.31 Encounter for screening mammogram for malignant neoplasm of breast (principal); Z80.3 Family history of malignant neoplasm of breast; Z80.8 Family history of malignant neoplasm of other organs or systems
CPT/HCPCS: 77063; 77067

== ENCOUNTER 2024-06-05 07:26 | Outpatient (OUT) | payer MEDICARE, SELFPAY ==
--- OUTSIDE RECORDS SUMMARY | 2024-06-05 07:33 | XMS_ITS | CCD ---
Author Organization [facility] Care Team Providers Care Vendor Manager Name Role Phone JACIEL SANTOS Unavailable Unavailable JACIEL SANTOS Unavailable Unavailable JACIEL SANTOS Unavailable Unavailable JACKLYN STARR Unavailable Unavailable Natalee Camacho Unavailable Mapus, Tondra Unavailable Buck, Eboni Unavailable Kristin Cardoso Unavailable AICHHOLZ, INSIDE UPHOLSTERER DANA Admitting Unavailable AICHHOLZ, INSIDE UPHOLSTERER DANA Attending Unavailable AICHHOLZ, INSIDE UPHOLSTERER DANA Primary Care Unavailable DR ANDRÉS HANCOCK V Consulting Unavailable AICHHOLZ, INSIDE UPHOLSTERER DANA Consulting Unavailable MAPUS, TONDRA Admitting Unavailable MAPUS, TONDRA Attending Unavailable AICHHOLZ, INSIDE UPHOLSTERER DANA Primary Care Unavailable MAPUS, TONDRA Consulting Unavailable BUCK, EBONI Admitting Unavailable BUCK, EBONI Attending Unavailable AICHHOLZ, INSIDE UPHOLSTERER DANA Primary Care Unavailable BUCK, EBONI Consulting Unavailable BUCK, EBONI Admitting Unavailable BUCK, EBONI Attending Unavailable AICHHOLZ, INSIDE UPHOLSTERER DANA Primary Care Unavailable AICHHOLZ, INSIDE UPHOLSTERER DANA Consulting Unavailable BUCK, EBONI Consulting Unavailable AICHHOLZ, INSIDE UPHOLSTERER DANA Admitting Unavailable AICHHOLZ, INSIDE UPHOLSTERER DANA Attending Unavailable AICHHOLZ, INSIDE UPHOLSTERER DANA Primary Care Unavailable AICHHOLZ, INSIDE UPHOLSTERER DANA Consulting Unavailable AICHHOLZ, INSIDE UPHOLSTERER DANA Admitting Unavailable AICHHOLZ, INSIDE UPHOLSTERER DANA Attending Unavailable AICHHOLZ, INSIDE UPHOLSTERER DANA Primary Care Unavailable AICHHOLZ, INSIDE UPHOLSTERER DANA Consulting Unavailable BUCK, EBONI Admitting Unavailable BUCK, EBONI Attending Unavailable AICHHOLZ, INSIDE UPHOLSTERER DANA Primary Care Unavailable BUCK, EBONI Consulting Unavailable MAPUS, TONDRA Admitting Unavailable MAPUS, TONDRA Attending Unavailable AICHHOLZ, INSIDE UPHOLSTERER DANA Primary Care Unavailable MAPUS, TONDRA Consulting Unavailable BUCK, EBONI Admitting Unavailable BUCK, EBONI Attending Unavailable AICHHOLZ, INSIDE UPHOLSTERER DANA Primary Care Unavailable BUCK, EBONI Consulting Unavailable Aichholz SUPERVISOR REWORK, Dnaa Unavailable Jimbo VALE, Lex Primary Care Provider NO FAMILY, PHYSICIAN Primary Care Provider Unava ilable Mapus, TEST FIXTURE ASSEMBLER Tondra K Attending Provider NO FAMILY, PHYSICIAN Primary Care Provider Unava ilable Mapus, TEST FIXTURE ASSEMBLER Tondra K Attending Provider [phone] Aichholz SUPERVISOR REWORK, Dana Unavailable Lex Martinez MD Primary Care Provider AICHHOLZ, DANA J Referring Unavailable AICHHOLZ, DANA J Primary Care Unavailable NO FAMILY, PHYSICIAN Primary Care Unavailable Mapus, Tondra K Admitting Unavailable Mapus, Tondra K Attending Unavailable Mapus, Tondra K Admitting Unavailable Mapus, Tondra K Attending Unavailable Lex Martinez Primary Care Unavailable AICHHOLZ, DANA J Referring Unavailable AICHHOLZ, DANA J Primary Care Unavailable TONIE, JEFFREY España Attending Unavailable TONIE, JEFFREY [place] Referring Unavailable AICHHOLZ, DANA J Primary Care Unavailable TONIE, JEFFREY [place] Referring Unavailable AICHHOLZ, DANA J Primary Care Unavailable TONIE, JEFFREY A Admitting Unavailable TONIE, JEFFREY [place] Attending Unavailable TONIE, JEFFREY A Referring Unavailable AICHHOLZ, DANA J Primary Care Unavailable ANDRÉS VAZQUEZ Attending Unavailable AICHHOLZ, DANA J Primary Care Unavailable MAPUS, TONDRA K Referring Unavailable AICHHOLZ, DANA J Primary Care Unavailable AICHHOLZ, DANA J Primary Care Unavailable CARLOS JASON Attending Unavailable Lex Martinez MD Primary Care Provider [phone] Mapus TEST FIXTURE ASSEMBLER, Tondra K Attending Provider [phone] Aichholz TEST FIXTURE ASSEMBLER-INSIDE UPHOLSTERER, Dana J Primary Care Provider Aicholz SUPERVISOR REWORK, Dana Unavailable DANIEL WOLF Attending Unavailable AICHHOLZ, DANA J Referring Unavailable AICHHOLZ, DANA J Primary Care Unavailable ASSENMACHER, DANIEL P Referring Unavailable AICHHOLZ, DANA J Primary Care Unavailable ASSENMACHER, DANIEL P Referring Unavailable AICHHOLZ, DANA J Primary Care Unavailable ASSENMACHERDANIEL P Admitting Unavailable ASSENMACHERDANIEL P Attending Unavailable AICHHOLZ, DANA J Primary Care Unavailable ASSENMACHERDANIEL P Attending Unavailable AICHHOLZ, DANA J Referring Unavailable AICHHOLZ, DANA J Primary Care Unavailable ASSENMACHER, DANIEL P Referring Unavailable AICHHOLZ, DANA J Primary Care Unavailable ASSENMACHERDANIEL P Attending Unavailable AICHHOLZ, DANA J Referring Unavailable AICHHOLZ, DANA J Primary Care Unavailable AICHHOLZ, DANA Attending Unavailable MAY PULIDO Attending Unavailable PULIDOMAY Referring Unavailable PULIDOMAY Attending Unavailable CARLOS BAER Attending Unavailable MAY PULIDO Attending Unavailable PULIDOMAY GALVEZ T Referring Unavailable JEFFREY SCIHLLING Attending Unavailable AICHHOLZDANA Attending Unavailable RUSCARLOS VALLES Attending Unavailable PULIDOMAY Attending Unavailable PULIDOMAY GALVEZ Attending Unavailable LEO GOODWIN Attending Unavailable MAY PULIDO T Referring Unavailable AICGeneHOLDANA Glover Attending Unavailable LEO GOODWIN Attending Unavailable PULIDOMAY T Referring Unavailable JESENIA JORGE Attending Unavailable PULIDOMAY T Referring Unavailable JESENIA JORGE Attending Unavailable PULIDOMAY T Referring Unavailable JESENIA JORGE Attending Unavailable PULIDOMAY GALVEZ T Referring Unavailable PULIDO, MAY T Attending Unavailable LEO GOODWIN Attending Unavailable TESS, MAY T Referring Unavailable JESENIA JORGE Attending Unavailable PULIDO, MAY T Referring Unavailable LEO GOODWIN Attending Unavailable PULIDO, MAY T Referring Unavailable JESENIA JORGE Attending Unavailable PULIDO, MAY T Referring Unavailable JESENIA JORGE Attending Unavailable PULIDO, MAY T Referring Unavailable CHRISTINE URIBE Attending Unavailable PULIDO, MAY T Referring Unavailable LEO GOODWIN Attending Unavailable PULIDO, MAY T Referring Unavailable PULIDO, MAY T Attending Unavailable MAY PULIDO Referring Unavailable BUDDY, LEO Mcintyre Attending Unavailable JORGE, JESENIA Attending Unavailable MAY PULIDO Referring Unavailable TONIE, JEFFREY [place] Attending Unavailable AICHHOLZ, DANA Attending Unavailable RUSHER, CARLOS [place] Attending Unavailable AICHHOLZ, DANA Attending Unavailable AICHHOLZ, DANA Attending Unavailable AICHHOLZ, DANA Attending Unavailable AICHHOLZ, DANA Attending Unavailable RUSHER, CARLOS [place] Attending Unavailable BUDDYLEO Attending Unavailable ASSENMACHER, DANIEL Referring Unavailable TATTERSALL, MELY Attending Unavailable ASSENMACHER, DANIEL Referring Unavailable JORGE, JESENIA Attending Unavailable ASSENMACHER, DANIEL Referring Unavailable JORGE, JESENIA Attending Unavailable ASSENMACHER, DANIEL Referring Unavailable AICHHOLZ, DANA Attending Unavailable BUDDY, LEO Mcintyre Attending Unavailable ASSENMACHER, DANIEL Referring Unavailable JORGE, JESENIA Attending Unavailable ASSENMACHER, DANIEL Referring Unavailable TATTERSALL, MELY Attending Unavailable ASSENMACHER, DANIEL Referring Unavailable JORGE, JESENIA Attending Unavailable ASSENMACHER, DANIEL Referring Unavailable TATTERSALL, MELY Attending Unavailable ASSENMACHER, DANIEL Referring Unavailable JORGE, JESENIA Attending Unavailable ASSENMACHER, DANIEL Referring Unavailable AICHHOLZ, DANA Attending Unavailable JORGE, JESENIA Attending Unavailable ASSENMACHER, DANIEL Referring Unavailable Allergies Allergy Classification Reported Allergen(s) Allergy Type Date of Onset Reaction(s) Facility (20 sources) Sulfamethoxazole / Trimethoprim Drug Allergy rash [facility] Other (20 sources) semaglutide; Translations: [SEMAGLUTIDE] Drug Allergy 03-31-19 24 Diarrhea [facility] (13 sources) Soy Protein Shake Drug allergy Unknown [facility] Other (20 sources) metFORMIN; Translations: [METFORMIN] Drug Allergy 03-31-19 24 g/i s/e [facility] (5 sources) Soy Balance Drug allergy [facility] Other (20 sources) Sulfonamides (Antibiotic) Drug Allergy 10-29-19 17 Hives, Rash [facility] (20 sources) Wound Dressing Adhesive Drug Allergy 09-16-19 23 Unknown [facility] (13 sources) Soy protein; Translations: [SOY] Allergy to substance 12-09-19 Nausea [facility] (6 sources) Sulfamethoxazole; Translations: [sulfamethoxazole] Drug Allergy 03-31-19 rash [facility] (6 sources) Trimethoprim; Translations: [trimethoprim] Drug Allergy 03-31-19 [facility] (20 sources) Soy protein Allergy to substance 10-04-19 Unknown [facility] (20 sources) Other Allergy to substance 06-13-19 Unknown [facility] (20 sources) Semaglutide Allergy to substance 06-13-19 Diarrhea [facility] (3 sources) Sulfonamides (Antibiotic); Translations: [SULFA (SULFONAMIDE ANTIBIOTICS)] Propensity to adverse reactions to drug (disorder) 10-29-19 [facility] (7 sources) ADHESIVE TAPE-SILICONES; Translations: [ADHESIVE TAPE-SILICONES] Propensity to adverse reactions to drug (disorder) 10-30-19 [facility] (1 source) metFORMIN Drug Allergy 12-12-19 [facility] (1 source) semaglutide Drug allergy (disorder) 12-12-19 [facility] (12 sources) Soy protein Allergy to substance 10-04-19 Unknown [facility] (20 sources) Soy protein Allergy to substance 10-04-19 Unknown [facility] Medications Current Medications Medication Drug Class(es) Dates [...] tablets by mo uth once daily Diphenhydramine-Acetaminophen 25-500 mg tablet Active 2 TAB PO Daily June 12, 2023 11:00pm alendronic acid 70 mg oral tablet (20 sources) Bisphosphonate Start: 06-13-2023 take 1 tablet by mouth every week Alendronate (Fosamax) 70 mg tablet Active 70 MG PO every week June 12, 2023 11:00pm Start: 03-08-2023 End: 04-16-2024 alendronate (Fosamax) 70 MG tablet Indications: Osteoporosis Take 1 tablet (70 mg) by mouth every 7 (seven) days for 28 days Take in the morning with a full glass of water, on an empty stomach, and do not take anything else by mouth or lie down for the next 30 min. 12 tablet 1 03/19/2024 Active amLODIPine 5 mg oral tablet (20 sources) Dihydropyridine Calcium Channel Leti Start: 06-13-2023 End: 08-28-2024 take 1 tablet by mouth once daily amLODIPine (Norvasc) 5 MG tablet Indications: Essential (primary) hypertension (CMS/HCC) Take 1 tablet (5 mg) by mouth Daily 90 tablet 1 05/30/2024 08/28/2024 Active Start: 06-28-2022 take 1 tablet by [...] 10 days. 20 tablet 02/06/2024 02/16/2024 Active ascorbic acid 1000 mg oral tablet (20 sources) Vitamin C Start: 06-13-2023 take 1 g by mouth once daily Ascorbic Acid (Vitamin C) 1,000 mg tablet Active 1 GM PO Daily June 12, 2023 11:00pm Start: 06-13-2023 take 1 g by mouth once daily A scorbic Acid (Vitamin C) Active 1 GM PO Daily June 13, 2023 12:00am aspirin 81 mg delayed release oral tablet (20 sources) Platelet Aggregation Inhibitor, Nonsteroidal Anti-inflammatory Drug Start: 03-06-2024 take 1 tablet by mouth once daily in the morning aspirin 81 mg Indications: Rotator cuff arthropathy of right shoulder Take 1 tablet (81 mg total) by mouth in the morning. Begin taking day AFTER total joint replacement. 30 tablet 03/06/2024 Active Start: 06-13-2023 take 1 tablet by fidel th once daily Aspirin 81 mg tablet,chewable Active 81 MG PO Daily June 12, 2023 11:00pm take 1 tablet by fidel th every twenty-four hours Aspirin 81 MG 1 tablet Orally Once a day for 30 day(s) Active atorvastatin 20 mg oral tablet (20 sources) HMG-CoA Reductase Inhibitor Start: 05-01-2021 End: 06-11-2024 take 1 tablet by mouth at bedtime atorvastatin (Lipitor) 20 MG tablet Indications: Mixed hyperlipidemia (CMS/HCC) Take 1 tablet (20 mg) by mouth at bedtime 90 tablet 1 03/13/2024 06/11/2024 Active Benadryl Allergy 25 MG (1 source) Start: 09-23-2021 take 1 capsule by mouth once daily at bedtime as needed Benadryl Allergy 25 MG 1 capsule at bedtime as needed Orally Once a day for 30 day(s) As needed for rash and itching Aug, Active calcium carbonate 1500 mg / cholecalciferol 800 unt oral tablet (8 sources) Vitamin D Start: 06-13-2023 take 1 tablet by mouth twice daily Calcium Carbonate-Vitamin D3 600 mg-20 mcg (800 unit) tablet Active 1 TAB PO Twice daily June 12, 2023 11:00pm take 1 tablet by fidel th once [...] (20 sources) Vitamin D Start: 06-13-2023 take 1 capsule by mouth once daily Cholecalciferol (Vitamin D3) 50 mcg (2,000 unit) capsule Active 50 MCG PO Daily June 12, 2023 11:00pm cholecalciferol (Vitamin D-3) 50 MCG (1999 UT) tablet Vitamin D3 Active take 1 capsule by mouth in the m orning cholecalciferol, vitamin D3, 2,000 units capsule Take 1 capsule (2,000 Units total) by mouth in the morning. Active cholecalciferol (Vitamin D-3) 50 MCG (1999 UT) tablet Vitamin D3 0 Active take 1 capsule by mo ut every twenty-four hours Vitamin D 50 MCG (2000 UT) 1 capsule Ora lly Once a day for 30 day(s) Active dapagliflozin 5 mg oral tablet (20 sources) Sodium-Glucose Cotransporter 2 Inhibitor Start: 12-21-2021 End: 12-26-2023 take 1 tablet by mouth in the [...] 0 Active DOCOSAHEXANOIC ACID/EPA (FISH OIL ORAL) (4 sources) DOCOSAHEXANOIC ACID/EPA (FISH OIL ORAL) Take [...] Do not crush or chew. 90 capsule 1 04/02/2024 07/01/2024 Active ferrous sulfate 325 mg oral tablet [...] propionate 0.05 mg/actuat metered dose nasal spray (4 sources) Corticosteroid fluticasone (NATASHA NASE) 50 mcg/actuation nasal spray Administer 1 spray into each nostril as needed. Active gabapentin 100 mg oral capsule (20 sources) Anti-epileptic Agent Start: 09-25-19 End: 08-26-19 take 1 capsule by mouth once daily gabapentin (Neurontin) 100 MG capsule Indications: Type 2 diabetes mellitus with diabetic neuropathy, unspecified (CMS/HCC) Take 1 capsule (100 mg) by mouth Daily 90 capsule 1 05/27/2024 08/25/2024 Active Gabapentin Activ e kerendia 10 mg tablet (1 source) take 1 tablet by mouth once daily Kerendia 10 MG TAKE 1 TABLET BY MOUTH EVERY DAY for 90 Active Kerendia 10 MG tablet (2 sources) take 1 tablet by mouth in the morning Kerendia 10 MG tablet Take 10 mg by mouth in the morning. 0 Active latanoprost 0.05 mg/ml ophthalmic solution (20 sources) Prostaglandin Analog Start: take 1 drop(s) into the eye(s) once daily in the evening Latanoprost 0.005 % drops Active 1 DROPS OPHTHALMIC Daily June 12, 2023 11:00pm [employer] drop into affected eye in the evening Ophthalmic Once a day; Note: Source Status: Taking; Provider: Sadaf Lebron ( ) Start: 06-13-2023 take 1 drop(s) into the eye(s) once [...] Angiotensin 2 Receptor Leti Start: 07-05-2021 End: 08-28-2024 take 1 tablet by mouth in the morning losartan (Cozaar) 100 MG tablet Indications: Essential (primary) hypertension (CMS/HCC) Take 1 tablet (100 mg) by mouth in the morning. 90 tablet 1 05/30/2024 08/28/2024 Active Magnesium (20 sources) magnesium 250 MG tablet 1 (one) time each day at the same time. Active magnesium 250 MG tablet 1 (one) time each day at the same time. 0 Active take 1 tablet by mouth once michael y Magnesium 250 MG 1 tablet with a meal Orally Once a day Active magnesium carbonate 250 mg oral capsule (4 sources) take 250 mg by mouth once daily MAGNESIUM CARBONATE ORAL Take 250 mg by mouth daily. Active magnesium oxide 250 mg oral tablet (4 sources) Start: 06-13-2023 take 1 tablet by mouth once daily Magnesium Oxide 250 mg magnesium tablet Active 250 MG PO Daily June 12, 2023 11:00pm melatonin 10 mg oral tablet (20 sources) Start: 06-13-2023 take 2 tablets by mouth once daily at bedtime Melatonin 10 mg tablet Active 20 MG PO Daily at bedtime June 12, 2023 11:00pm Start: 06-13-2023 take 20 mg by mouth [...] End: 025 take 1 tablet by mouth in the morning meloxicam (MOBIC) 15 mg tablet Take 1 tablet (15 mg total) by mouth in the morning. 10/17/2016 Active 24 hr metFORMIN hydrochloride 500 mg [...] Adv) tablet as directed Orally 0 Active tlqmhyaz-rvui-OQ-calcium &mi ns (THERAGRAN-M) 9 mg iron-400 mcg tablet (4 sources) pqomszdl-lbcq-UF -calcium &mins (THERAGRAN-M) 9 mg iron-400 mcg tablet Take 1 tablet by mouth in the morning. Active Multivitamin (One Daily Essential) tablet (4 sources) Start: take 1 tablet by mouth once daily Multivitamin (One Daily Essential) tablet Active 1 TAB PO Daily June 12, 2023 11:00pm Start: 06-13-2023 take 1 tablet by fidel th once daily Multivitamin (One Daily Essential) tablet Active 1 TAB PO Daily June 13, 2023 12:00am [place] 3 1000 MG (20 sources) take 1 capsule by mouth once daily [place] 3 1000 MG 1 capsule Orally Once a day Active [place]-3 Fatty Acids (3 sources) Start: take 1000 mg by mouth twice daily [place]-3 Fatty Acids Active 1000 MG PO Twice daily June 13, 2023 12:00am [place]-3 Fatty Acids 1,000 mg capsule (1 source) Start: take 1 capsule by mouth twice daily [place]-3 Fatty Acids 1,000 mg capsule Active 1000 MG PO Twice daily June 12, 2023 11:00pm omeprazole 20 mg delayed release oral capsule (20 sources) Proton Pump Inhibitor Start: 017 End: take 1 capsule by mouth before mealtime omeprazole (PriLOSEC) [address] capsule Indications: Gastro-esophageal reflux disease without esophagitis , Esophageal reflux Take 1 capsule (20 mg) by mouth in the morning. Take before meals. 90 capsule 1 05/30/2024 08/28/2024 Active ondansetron 4 mg disintegrating oral tablet (20 sources) Serotonin-3 Receptor Antagonist Start: End: take 1 tablet by mouth every eight hours as needed ondansetron ODT (Zofran-ODT) 4 MG disintegrating tablet Take 4 mg by mouth every 8 (eight) hours if needed 02/20/2024 Active One Daily For Women 50+ Adv - (20 sources) One Daily For Wo men 50+ Adv - as directed Orally Active traMADol hydrochloride 50 mg oral tablet (16 sources) Opioid Agonist Start: 025 take 1 tablet by mouth every six hours as needed traMADol (Ultram) 50 MG tablet Take 50 mg by mouth every 6 (six) hours if needed 04/04/2024 Active triamcinolone acetonide 0.055 mg/actuat metered dose [...] Class(es) Dates Sig (Normalized) Sig (Original) Finerenone (8 sources) Start: 05-11-2023 End: 06-14-2023 take 1 tablet by mouth once daily Finerenone 10 mg tablet Discontinued 10 MG PO Daily May 11, 2023 4:55pm June 14, 2023 3:23pm Start: 05-11-2023 End: 06-14-2023 take 10 mg by mouth once daily Finerenone Discontinued 10 MG PO Daily May 11, 2023 5:55pm June 14, 2023 4:23pm Start: 05-11-2023 take 10 mg by mouth once daily Finerenone Active 10 MG PO Daily May 11, 2023 5:55pm Start: 05-11-2023 End: 05-11-2023 take 1 tablet by mouth once daily Finerenone 10 mg tablet Discontinued 1 TAB PO Daily May 10, 2023 11:00pm May 11, 2023 4:58pm FreeTextSig: TAKE 1 TABLET BY MOUTH EVERY DAY; Note: Source Status: Taking; Refills: 1; Qty: 90 Tablet; Provider: Buck Lyn ( ) Start: 05-11-2023 End: 05-11-2023 take 1 tablet by mouth once daily Finerenone Discontinued 1 TAB PO Daily May 11, 2023 12:00am May 11, 2023 5:58pm FreeTextSig: TAKE 1 TABLET BY MOUTH EVERY DAY; Note: Source Status: Taking; Refills: 1; Qty: 90 Tablet; Provider: Buck Lyn ( ) KERENDIA 10 mg tablet (1 source) Start: 01-18-2022 End: 03-21-2024 take 1 tablet by mouth in the morning KERENDIA 10 mg tablet Take 1 tablet by mouth in the morning. 01/18/2022 03/21/2024 Discontinued (Therapy completed) Ozempic 0.25 or 0.5 MG/DOSE (7 sources) inject 0.5 mg by subcutaneous injection every week Ozempic 0.25 or 0.5 MG/DOSE 0.5mg sq Subcutaneous once weekly Not-Taking inject 0.5 mg by sub cutaneous injection every week Ozempic 0.25 or 0.5 MG/DOSE 0.5mg sq Subcutaneous once weekly Active [facility] - (2 sources) [facility] ealt - as directed Orally Not-Taking [facility] - as directed Orally Active sertraline 50 mg oral tablet (20 sources) Serotonin Reuptake Inhibitor Start: 06-13-2023 End: 12-12-2023 take 1 tablet by mouth once daily Sertraline 50 mg tablet Discontinued 50 MG PO Daily June 12, 2023 11:00pm December 12, 2023 1:20pm Start: 02-27-2023 End: 03-21-2024 take 1 tablet by mouth in the morning sertraline (Zoloft) 50 MG tablet Indications: Depression, unspecified (CMS/HCC) Take 1 tablet (50 mg) by mouth in the morning. 90 tablet 1 02/27/2023 05/28/2023 Active Problems Active Problems Problem Classification Problem Date Documented Date Episodic/Chronic Administrative/socia l admission (11 sources) Dietary counseling and surveillance; Translations: [Patient encounter status] Onset: Resolved: 2 Episodic Anxiety disorders (20 sources) Generalized anxiety disorder; Translations: [Generalized anxiety disorder] Onset: 4 11-28-2023 Chronic Blindness and vision defects (20 sources) Blurring of visual image; Translations: [Other visual disturbances] Onset: 5 03-05-2024 Episodic Cancer of ovary (20 sources) Malignant tumor of ovary; 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] Onset: 5 Resolved: 4 02-07-2023 Chronic Cataract (20 sources) Cataract; Translations: [Unspecified cataract] Onset: 2 02-07-2023 Chronic Chronic kidney disease (20 sources) Chronic kidney disease stage 3; Translations: [Chronic kidney disease, stage 3 (moderate)] Onset: 3 Resolved: 5 02-07-2023 Chronic Chronic kidney disease (20 sources) [...] (20 sources) Type 2 diabetes mellitus without complication; Translations: [Type 2 diabetes mellitus without complications] Onset: 8 06-20-2023 Chronic Diabetes mellitus without complication (1 source) Diabetes mellitus without complication; Translations: [Type 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] Onset: 4 Disorders of lipid metabolism (20 sources) Hyperlipidemia; Translations: [Hyperlipidemia, unspecified] Onset: 7 Resolved: 2 Chronic E Codes: Fall (1 source) Unspecified fall, initial encounter; Translations: [Unspecified fall, initial encounter] Onset: 4 Episodic Esophageal disorders (20 sources) Gastroesophageal reflux disease; [...] disease] Onset: 1 Resolved: 2 Chronic Mycoses (3 sources) Onychomycosis due to dermatophyte ; Translations: [...] Onset: 7 Chronic Other connective tissue disease (20 sources) History of reverse prosthetic total arthroplasty of right shoulder; Translations: [Presence of right artificial shoulder joint] Onset: 5 04-18-2024 Chronic Other connective tissue disease (1 source) Presence of right artificial shoulder joint; Translations: [Presence of right artificial shoulder joint] Onset: 5 Chronic Other connective tissue disease (6 sources) Pain in toe; Translations: [Pain in right toe(s)] 04-13-2023 Episodic Other diseases of kidney and ureters (4 sources) Secondary hyperparathyroidism of renal origin; Translations: [Secondary hyperparathyroidism (of renal origin)] Onset: 2 06-13-2023 Chronic Other diseases of kidney and ureters (20 sources) Hyperparathyroidism due to renal insufficiency; Translations: [Secondary hyperparathyroidism of renal origin] Onset: 4 09-26-2023 Chronic Other injuries and conditions due to external causes (1 source) Unspecified injury of head, initial encounter; Translations: [Unspecified injury of head, initial encounter] Onset: 4 Episodic Other liver diseases (1 source) Disease of liver; Translations: [Liver disease, unspecified] 03-21-2024 Chronic Other liver diseases (1 source) Liver disease, unspecified; Translations: [Liver disease, unspecified] Onset: 5 Chronic Other non-traumatic joint disorders (1 source) Arthropathy; Translations: [Arthropathy, unspecified] 12-15-2023 Chronic Other non-traumatic joint disorders (20 sources) Rotator cuff arthropathy of right shoulder; Translations: [Other specific arthropathies, not elsewhere classified, right shoulder] Onset: 4 02-27-2024 Chronic Other non-traumatic joint disorders (1 source) Other specific arthropathies, not elsewhere classified, right shoulder; Translations: [Other specific arthropathies, not elsewhere classified, right shoulder] Onset: 4 Chronic Other non-traumatic joint disorders (20 sources) Pain in right shoulder; Translations: [Pain in joint, shoulder region] Onset: 4 06-20-2023 Episodic Other non-traumatic joint disorders (20 sources) Stiffness of right shoulder; Translations: [Stiffness of right shoulder, not elsewhere classified] Onset: 4 11-24-2023 Episodic Other non-traumatic joint disorders (1 source) Rotator cuff arthropathy of right shoulder Onset: 5 Episodic Other nutritional; endocrine; and metabolic disorders (20 sources) Body mass index 40+ - severely obese; Translations: [Body mass index (BMI) 40.0-44.9, adult] Chronic Other nutritional; endocrine; and metabolic disorders (20 sources) Obese class II; Translations: [Body mass index (BMI) 38.0-38.9, adult] 03-06-2024 Chronic Other nutritional; endocrine; and metabolic disorders (5 sources) Body mass index (BMI) 37.0-37.9, adult; Translations: [BMI 37.0-37.9, adult Z68.37] Onset: 1 Resolved: 2 Chronic Other nutritional; endocrine; and metabolic disorders (20 sources) Hypomagnesemia; Translations: [Hypomagnesemia] Onset: 4 06-13-2023 Chronic Other nutritional; endocrine; and metabolic disorders (7 sources) Hypomagnesemia; Translations: [Disorders of magnesium metabolism] Onset: 3 Chronic Other nutritional; endocrine; and metabolic disorders (20 sources) Severe obesity; Translations: [Morbid (severe) obesity due to excess calories] Onset: 2 02-07-2023 Chronic Other nutritional; endocrine; and metabolic disorders (20 sources) Body mass index 30+ - obesity; Translations: [Body mass index (BMI) 34.0-34.9, adult] Onset: 5 10-04-2023 Chronic Other nutritional; endocrine; and metabolic disorders (1 source) Body mass index (BMI) 34.0-34.9, adult; Translations: [Body Mass Index 34.0-34.9, adult] 10-04-2023 Chronic Other nutritional; endocrine; and metabolic disorders (4 sources) Obesity; Translations: [Obesity, unspecified] Onset: 2 07-07-2021 Chronic Other skin disorders (3 sources) Dystrophia unguium; Translations: [Nail dystrophy] 04-13-2023 Episodic Residual codes; unclassified (1 source) Pain, unspecified; Translations: [Pain, unspecified] Onset: 4 Episodic Spondylosis; intervertebral disc disorders; other back problems (20 sources) Backache; Translations: [Dorsalgia, unspecified] Onset: 7 02-07-2023 Episodic Unclassified (2 sources) Unknown / UNK(Unknown) Onset: 7 Unclassified (1 source) CHRN KIDNEY DISEASE STG 3 UNSP; Translations: [CHRN KIDNEY DISEASE STG 3 UNSP] Onset: 3 Unclassified (1 source) Head Injury With Unknown LOC Onset: 4 Unclassified (1 source) Right rotator cuff tear Onset: 4 Unclassified (1 source) Post-op Onset: 5 Unclassified (1 source) Establish Care Onset: 4 Past or Other Problems Problem Classification Problem Date Documented Date Episodic/Chronic Allergic reactions (1 source) Urticaria, unspecified Onset: 2 Resolved: 2 Episodic Immunizations and screening for infectious disease (1 source) Encounter for immunization; Translations: [Encounter for immunization Z23] Onset: 1 Resolved: 1 Episodic Mood disorders (20 sources) Mood disorders Onset: 4 Resolved: 5 03-28-2023 Nutritional deficiencies (20 sources) Deficiency of [...] Translations: [DIARRHEA UNSPECIFIED] Onset: 2 Episodic Other injuries and conditions due to external causes (20 sources) Closed injury of head; Translations: [Unspecified injury of head, subsequent encounter] Onset: 4 02-27-2024 Episodic Other nervous system disorders (20 sources) Polyneuropathy associated with another disorder; 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] Onset: 3 Resolved: 5 02-07-2023 Chronic Other nutritional; endocrine; and metabolic disorders (20 sources) Obesity caused by energy imbalance; Translations: [Morbid (severe) obesity due to excess calories] Onset: 5 Resolved: 5 03-05-2024 Chronic Other screening for suspected conditions (not mental disorders or infectious disease) (20 sources) Encounter for screening mammogram for malignant neoplasm of breast; Translations: [Patient encounter status] Onset: 2 Episodic Other upper respiratory infections (20 sources) Acute pansinusitis; Translations: [Acute pansinusitis, unspecified] Onset: 4 Resolved: 5 02-06-2024 Episodic Residual codes; unclassified (1 source) Family [...] [Asymptomatic menopausal state] Onset: 3 02-07-2023 Episodic Superficial injury; contusion (20 sources) Contusion of other part of head, initial encounter; Translations: [Hematoma of scalp] Onset: 4 02-27-2024 Episodic Results Test Name Value Interpretation Reference Range Facility Glucose Glucometer (BldC) [M ass/Vol]on 04-04-2024 Glucose [Mass/Vol] 195 mg/dL High 65-99 [facility] Glucose [Mass/Vol] 134 mg/dL High 65-99 [facility] APTTon 03-21-2024 aPTT Coag (PPP) [Time] 39 s High [facility] BASIC METABOLIC PANLon 03-21 Anion gap [Moles/Vol] 10 mmol/L Normal 5-15 [facility] Comment on above: Performed By: #### C LINDEN, PINR, 58703-5, BMP, LIVR #### [facility] ([id number]) [address] [facility] [place] [address] Calcium [Mass/Vol] 8.9 mg/dL Normal 8.5-10.5 [facility] Comment on above: Performed By: #### C LINDEN, PINR, 22998-2, BMP, LIVR #### [facility] ([id number]) [address] [facility] [place] [address] Chloride [Moles/Vol] 101 mmol/L Normal 98-109 [facility] Comment on above: Performed By: #### C BC, PINR, 38670-1, BMP, LIVR #### [facility] ([id number]) [address] [place] [address] CO2 [Moles/Vol] 25 mmol/L Normal 22-32 [facility] Comment on above: Performed By: #### C BC, PINR, 82671-5, BMP, LIVR #### [facility] ([id number]) [address] [facility] [place] [address] Creatinine [Mass/Vol] 0.92 mg/dL Normal 0.40-1.00 [facility] Comment on above: Result Comment: METH OD TRACEABLE TO IDMS STANDARD Performed By: #### C LINDEN PINMary, [id number], BMP, LIVR #### [facility] ([id number]) [address] [facility] [place] [address] GFR/1.73 sq M.predicted among non-blacks MDRD (S/P/Bld) [Vol rate/Area] 64 mL/min/{1.73_m2} Normal >59 [facility] Comment on above: Result Comment: Reported eGFR is based on the CKD-EPI 1 equation that does not use a race coefficient. Performed By: #### C LINDEN PINR, 82163-4, BMP, LIVR #### [facility] ([id number]) [address] [place] [address] Glucose [Mass/Vol] 148 mg/dL High 65-99 [facility] Comment on above: Performed By: #### C BC PINR, 06958-8, BMP, LIVR #### [facility] ([id number]) [address] [place] [address] Potassium [Moles/Vol] 4.0 mmol/L Normal 3.5-5.0 [facility] Comment on above: Performed By: #### C BC, PINR, 95889-7, BMP, LIVR #### [facility] ([id number]) [address] [place] [address] Sodium [Moles/Vol] 136 mmol/L Normal 134-146 [facility] Comment on above: Performed By: #### C BC PINR, 25269-6, BMP, LIVR #### [facility] ([id number]) [address] [facility] [place] [address] Urea nitrogen [Mass/Vol] 30 mg/dL High 5-27 [facility] Comment on above: Performed By: #### C BC, PINR, 36268-1, BMP, LIVR #### [facility] ([id number]) [address] [facility] [place] [address] Basic Metabolic Panelon 03-01 Anion gap [Moles/Vol] 10 mmol/L 5 - 15 mmol/L [facility] Calcium [Mass/Vol] 8.9 mg/dL 8.5 - 10. 5 mg/dL [facility] Chloride [Moles/Vol] 101 mmol/L 98 - 109 mmol/L [facility] CO2 [Moles/Vol] 25 mmol/L 22 - 32 mmol/L [facility] Creatinine [Mass/Vol] 0.92 mg/dL 0.40 - 1.00 mg/dL [facility] Comment on above: METHOD TRACEABLE TO IDLA STANDARD eGFR (CKD-EPI)non-race dependent 64 - PINF [facility] Comment on above: Reported eGFR is based on the CKD-EPI 2020 equation that does not use a race coefficient. Glucose [Mass/Vol] 148 mg/dL High 65 - 99 mg/dL [facility] Interpretation and review of laboratory results Abnormal [facility] Potassium [Moles/Vol] 4 mmol/L 3.5 - 5.0 mmol/L [facility] Sodium [Moles/Vol] 136 mmol/L 134 - 146 mmol/L [facility] Urea nitrogen [Mass/Vol] 30 mg/dL High 5 - 27 mg/dL [facility] CBC without diffon Erythrocyte distribution width (RBC) [Ratio] 14 % 11.5 - 15.0 % [facility] Hematocrit (Bld) [Volume fraction] 40.3 % 35 - 47 % [facility] Hemoglobin (Bld) [Mass/Vol] 14.2 g/dL 11.7 - 15.5 g/dL [facility] Interpretation and review of laboratory results Abnormal [facility] MCH (RBC) [Entitic mass] 31.7 pg 27 - 34 pg [facility] MCHC (RBC) [Mass/Vol] 35.2 g/dL 32 - 36 g/dL [facility] MCV (RBC) [Entitic vol] 90 fL 80 - 100 fL [facility] Platelet mean volume (Bld) [Entitic vol] 6.4 fL Low 7 - 12 fL [facility] Platelets (Bld) [#/Vol] 209 10*3/uL [facility] RBC (Bld) [#/Vol] 4.48 10*6/uL [facility] WBC corrected for nucl RBC Auto (Bld) [#/Vol] 7.2 [facility] COMPLETE BLOOD COUNTon 03-21 Erythrocyte distribution width (RBC) [Ratio] 14.0 % Normal 11.5-15.0 [facility] Comment on above: Performed By: #### C BC, PINR, 54091-8, BMP, LIVR #### [facility] ([id number]) [address] [facility] [place] [address] Hematocrit (Bld) [Volume fraction] 40.3 % Normal 35-47 [facility] Comment on above: Performed By: #### C BC, PINR, 73550-9, BMP, LIVR #### [facility] ([id number]) [address] [place] [address] Hemoglobin (Bld) [Mass/Vol] 14.2 g/dL Normal 11.7-15.5 [facility] Comment on above: Performed By: #### C BC, PINR, 25548-5, BMP, LIVR #### [facility] ([id number]) [address] [place] [address] MCH (RBC) [Entitic mass] 31.7 pg Normal 27-34 [facility] Comment on above: Performed By: #### C BC, PINR, 64748-8, BMP, LIVR #### [facility] ([id number]) [address] [place] [address] MCHC (RBC) [Mass/Vol] 35.2 g/dL Normal 32-36 [facility] Comment on above: Performed By: #### C BC, PINR, 42096-7, BMP, LIVR #### [facility] ([id number]) [address] [facility] [place] [address] MCV (RBC) [Entitic vol] 90 fL Normal 80-100 [facility] Comment on above: Performed By: #### C BC, PINR, 32476-7, BMP, LIVR #### [facility] ([id number]) [address] [facility] [place] [address] Platelet mean volume (Bld) [Entitic vol] 6.4 fL Low 7-12 [facility] Comment on above: Performed By: #### C BC, PINR, 78615-4, BMP, LIVR #### [facility] ([id number]) [address] [place] [address] Platelets (Bld) [#/Vol] 209 10*3/uL Normal 150-450 [facility] Comment on above: Performed By: #### C BC, PINR, 67698-1, BMP, LIVR #### [facility] ([id number]) [address] [place] [address] RBC COUNT 4.48 X10E12/L Normal 3.80-5.20 [facility] Comment on above: Performed By: #### C BC, PINR, 17223-3, BMP, LIVR #### [facility] ([id number]) [address] [facility] [place] [address] WBC (Bld) [#/Vol] 7.2 10*3/uL Normal 4.0-11.0 [facility] Comment on above: Performed By: #### C BC, PINR, 41639-7, BMP, LIVR #### [facility] ([id number]) [address] [place] [address] LIVER PANELon 03-21-2024 Albumin [Mass/Vol] 4.4 g/dL Normal 3.2-5.3 [facility] Comment on above: Performed By: #### C BC, PINR, 66807-3, BMP, LIVR #### [facility] ([id number]) [address] [facility] [place] [address] ALP [Catalytic activity/Vol] 87 U/L Normal 39-130 [facility] Comment on above: Performed By: #### C BC, PINR, 81113-6, BMP, LIVR #### [facility] ([id number]) [address] [facility] [place] [address] ALT [Catalytic activity/Vol] 16 U/L Normal 0-31 [facility] Comment on above: Performed By: #### C BC, PINR, 24736-4, BMP, LIVR #### [facility] ([id number]) [address] [facility] [place] [address] AST [Catalytic activity/Vol] 26 U/L Normal 0-41 [facility] Comment on above: Performed By: #### C BC, PINR, 23898-1, BMP, LIVR #### [facility] ([id number]) [address] [facility] [place] [address] Bilirubin [Mass/Vol] 0.4 mg/dL Normal 0.3-1.2 [facility] Comment on above: Performed By: #### C BC, PINR, 01033-0, BMP, LIVR #### [facility] ([id number]) [address] [facility] [place] [address] Bilirubin.indirect [Mass/Vol] mg/dL Normal 0.0-0.4 [facility] Comment on above: Performed By: #### C BC, PINR, 56359-3, BMP, LIVR #### [facility] ([id number]) [address] [facility] [place] [address] Protein [Mass/Vol] 6.7 g/dL Normal 6.0-8.0 [facility] Comment on above: Result Comment: SHANIA BRITTANI REMOVED BY HIGH SPEED CENTRIFUGATION Performed By: #### C BC, PINR, 20889-4, BMP, LIVR #### [facility] ([id number]) [address] [facility] [place] [address] Liver panelon 03-21-2024 Albumin [Mass/Vol] 4.4 g/dL 3.2 - 5.3 g/dL [facility] ALP [Catalytic activity/Vol] 87 U/L 39 - 130 U/L [facility] ALT No additional P-5'-P [Catalytic activity/Vol] 16 U/L 0 - 31 U/L [facility] AST [Catalytic activity/Vol] 26 U/L 0 - 41 U/L [facility] Bilirubin [Mass/Vol] 0.4 mg/dL 0.3 - 1.2 mg/dL [facility] Bilirubin.direct [Mass/Vol] mg/dL 0.0 - 0.4 mg/dL [facility] Protein [Mass/Vol] 6.7 g/dL 6.0 - 8.0 g/dL [facility] Comment on above: LIPEMIA REMOVED BY H IGH SPEED CENTRIFUGATION [facility] No Panel Informationon 03-21 [facility] PROTIME AND INRon 03-21-2024 INR Coag (PPP) [Relative time] 1.0 {INR} Normal 0.8-1.1 [facility] Comment on above: Performed By: #### C LINDEN, PINR, 19862-4, BMP, LIVR #### [facility] ([id number]) [address] [facility] [place] [address] PT Coag (PPP) [Time] 11.7 s Normal 9.8-13.2 [facility] Comment on above: Performed By: #### C LINDEN, PINR, 35226-7, BMP, LIVR #### [facility] ([id number]) [address] [place] [address] Protime & INRon 03-21-2024 INR Coag (PPP) [Relative time] 1 {INR} [facility] PT Coag (PPP) [Time] 11.7 s [facility] aPTT Coag (PPP) [Time]on Interpretation and review of laboratory results Abnormal [facility] aPTT Coag (Bld) [Time] 39 s High 26-37 [facility] Comment on above: Performed By: #### C BC, PINR, 47807-7, BMP, LIVR #### [facility] ([id number]) [address] [facility] [place] [address] CT BRAIN WO CONTon CT BRAIN WO CONT CT BRAIN WO CONT History: Pain after trauma Technique: Contiguous axial images through the brain were obtained without the administration of intravenous contrast material. Automated exposure control was utilized. Comparison: 06/22/2015 Findings: The ventricles are normal in size. There is no evidence of midline shift. There are no areas of abnormal density to suggest presence of acute major vessel infarct, mass lesion, or hemorrhage. There is a large left frontal scalp hematoma. The visualized osseous structures are intact. Impression: Normal CT brain. All CT scans at this facility use dose modulation, iterative reconstruction, and/or weight based dosing when appropriate to reduce radiation dose to as low as reasonably achievable. Finalized by Andrés Geiger MD on 02/20/2024 9:09 PM Normal [facility] CT CERVICAL SPINE WO CONTon 02-20-2024 CT CERVICAL SPINE WO CONT CT CERVICAL SPINE WO CONT History: Fall, pain Technique: Multidetector spiral CT scan of cervical spine is performed. Multiplanar reconstruction images are obtained. All CT scans at this facility use dose modulation, iterative reconstruction, and/or weight based dosing when appropriate to reduce radiation dose to as low as reasonably achievable. Comparison: 06/22/2015. Findings: There is no evidence of fracture through the cervical vertebrae. The posterior elements are intact. No bony fragments are seen in the spinal canal. Sagittal and axial images demonstrate normal vertebral heights. There is no evidence of compression fractures or malalignment. The odontoid process is intact. No significant prevertebral soft tissue abnormality is identified. Moderate degenerative changes. IMPRESSION: No evidence of fractures, malalignment or acute bony pathology. Finalized by Carlos Candelario MD on 02/20/2024 9:09 PM [facility] Cholesterol [Mass/volume] in Serum or PlasmaOrdered By: Jhon Perea on 02-10-2024 Cholesterol [Mass/Vol] Cholesterol [Mass/volume] in Serum or Plasma 140-200 [facility] Comment on above: Chol less than 200 m g/dl low riskChol 201-239 mg/dl borderline riskChol 240 mg/dl and greater high risk Cholesterol in HDL [Mass/vol ume] in Serum or PlasmaOrdered By: Jhon Perea on 02-10-2024 Cholesterol in HDL [Mass/Vol] Serum or plasma high density lipoprotein (HDL) cholesterol measurement [facility] Comment on above: HDL CHOL ATP-III CLA SSIFICATION Cardiovascular RiskHDL > or equal to 60 mg/dL LOWHDL < 40 mg/dL HIGH Cholesterol in LDL Calc [Mas s/Vol]Ordered By: Jhon Perea on 02-10-2024 Cholesterol in LDL [Mass/Vol] Cholesterol in LDL [Mass/volume] in Serum or Plasma by calculation 0-100 [facility] Comment on above: LDL ATP III CLASSIFI CATIONLDL less than 100 mg/dL OptimalLDL 100-129 mg/dL Near or above optimalLDL 130-159 mg/dL Borderline highLDL 160-189 mg/dL HighLDL greater than 189 mg/dL Very high Cholesterol in VLDL Calc [Ma ss/Vol]Ordered By: Jhon Perea on 02-10-2024 Cholesterol in VLDL [Mass/Vol] Cholesterol in VLDL [Mass/volume] in Serum or Plasma by calculation [facility] Lipid Panelon 02-10-2024 Cholesterol [Mass/Vol] 144 mg/dL Normal 140-200 [facility] Comment on above: Result Comment: Chol less than 200 mg/dl low risk Chol 201-239 mg/dl borderline risk Chol 240 mg/dl and greater high risk Performed By: #### L IPID #### [facility] [address] [id number] [place] Cholesterol in HDL [Mass/Vol] 54 mg/dL Normal [facility] Comment on above: Result Comment: HDL CHOL ATP-III CLASSIFICATION Cardiovascular Risk HDL > or equal to 60 mg/dL LOW HDL < 40 mg/dL HIGH Performed By: #### L IPID #### [facility] [address] [place] [address] [place] Cholesterol.total/C holesterol in HDL [Mass ratio] 2.7 {ratio} Normal <5.0 [facility] Comment on above: Result Comment: PERF ORMED BY: [place] [address] PATHOLOGIST [employer] NAGA MURILLO M.D. Performed By: #### L IPID #### [facility] [address] LDL Cholesterol,Calcula sigifredo 54 mg/dL Normal 0-100 [facility] Comment on above: Result Comment: LDL ATP III CLASSIFICATION LDL less than 100 mg/dL Optimal LDL 100-129 mg/dL Near or above optimal LDL 130-159 mg/dL Borderline high LDL 160-189 mg/dL High LDL greater than 189 mg/dL Very high Performed By: #### L IPID #### [address] Triglyceride w/Reflex 182 mg/dL High 0-149 [facility] Comment on above: Result Comment: TRIG ATP III CLASSIFICATION TRIG less than 150 mg/dL Normal TRIG 150-199 mg/dL Borderline high TRIG 200-500 mg/dL High TRIG greater than 500 mg/dL Very high Standard traceable to the Center for Disease Conrtrol and Prevention (CDC) test method. Performed By: #### L IPID #### [facility] [address] [place] [address] VLDL CHOLESTEROL 36 mg/dL Normal [facility] Comment on above: Performed By: #### L IPID #### [facility] [address] [place] [address] Serum or plasma total choles terol/high density lipoprotein (HDL) cholesterol mass ratOrdered By: Jhon Perea on 02-10-2024 Cholesterol.total/C holesterol in HDL [Mass ratio] Serum or plasma total cholesterol/high density lipoprotein (HDL) cholesterol mass rat <5.0 [facility] Triglyceride [Mass/volume] i n Serum or PlasmaOrdered By: Jhon Perea on 02-10-2024 Triglyceride [Mass/Vol] Triglyceride [Mass/volume] in Serum or Plasma High 0-149 [facility] Comment on above: TRIG ATP III CLASSIF ICATIONTRIG less than 150 mg/dL NormalTRIG 150-199 mg/dL Borderline highTRIG 200-500 mg/dL High TRIG greater than 500 mg/dL Very highStandard traceable to the Center for Disease Conrtrol and Prevention (CDC) test method. Erythrocyte distribution wid th Auto (RBC) [Ratio]on 12-06-2023 Erythrocyte distribution width (RBC) [Ratio] 12.4 % 11.0-15.0 [facility] Estimated glomerular filtrat ion rate (GFR) non- Americanon 12-06-2023 GFR/1.73 sq M.predicted among non-blacks MDRD (S/P/Bld) [Vol rate/Area] 47 mL/min/{1.73_m2} Low >=60 mL/min/1.73m 2 [facility] CBC WITH PLATELET NO DI FFERENTIALon 12-06-2023 Erythrocyte distribution width (RBC) [Ratio] 12.4 % 11.0 - 15.0 % [facility] Hematocrit (Bld) [Volume fraction] 40.9 % 36.0 - 48.0 % [facility] Health[facility] e Hemoglobin (Bld) [Mass/Vol] 13.2 g/dL 12.0 - 16.0 g/dL [facility] Interpretation and review of laboratory results Abnormal [facility] MCH (RBC) [Entitic mass] 29.9 pg 26.7 - 34.0 pg [facility] MCHC (RBC) [Mass/Vol] 32.3 g/dL 29.9 - 35.2 g/dL [facility] MCV (RBC) [Entitic vol] 92.7 fL 81.0 - 99.0 fL [facility] Platelet mean volume (Bld) [Entitic vol] 8.9 fL Low 9.5 - 13.5 fL [facility] PLT [facility] RBC 4.41 [facility] WBC 5.1 [facility] Hematocrit Auto (Bld) [Volum e fraction]on 12-06-2023 Hematocrit (Bld) [Volume fraction] 40.9 % 36.0-48.0 [facility] Hemoglobin [Mass/volume] in Bloodon 12-06-2023 Hemoglobin (Bld) [Mass/Vol] 13.2 g/dL 12.0-16.0 [facility] Iron binding capacity [Mass/ volume] in Serum or Plasmaon 12-06-2023 Iron binding capacity [Mass/Vol] 259.0 ug/dL 250.0-450.0 [facility] Iron saturation [Mass Fracti on] in Serum or Plasmaon 12-06-2023 Iron saturation [Mass fraction] 15.1 % [facility] Laboratory - Chemistry and C hemistry - challengeon 12-06-2023 Albumin [Mass/Vol] 3.6 g/dL 3.4-5.0 [facility] Calcium [Mass/Vol] 9.0 mg/dL 8.5-10.1 [facility] Chloride [Moles/Vol] 101 mmol/L 98-107 [facility] CO2 [Moles/Vol] 27.0 mmol/L 21.0-32.0 [facility] Creatinine [Mass/Vol] 1.13 mg/dL High 0.55-1.02 [facility] Ferritin [Mass/Vol] 131.0 ng/mL 8.0-252.0 [facility] GFR/1.73 sq M.predicted MDRD (S/P/Bld) [Vol rate/Area] 57 mL/min/{1.73_m2} Low >=60 mL/min/1.73m 2 [facility] Glucose [Mass/Vol] 99 mg/dL 74-106 [facility] Iron [Mass/Vol] 39.0 ug/dL Low 50.0-170.0 [facility] Magnesium [Mass/Vol] 1.9 mg/dL 1.8-2.4 [facility] Potassium [Moles/Vol] 4.0 mmol/L 3.5-5.1 [facility] Sodium [Moles/Vol] 137 mmol/L 136-145 [facility] Urate [Mass/Vol] 4.2 mg/dL 2.6-6.0 [facility] Urea nitrogen [Mass/Vol] 24.0 mg/dL High 7.0-18.0 [facility] Urea nitrogen/Creatinine [Mass ratio] 21.2 mg/mg [facility] Bilirubin Ql (U) Negative NEGATIVE [facility] Glucose (U) [Mass/Vol] 250 mg/dL Abnormal NEGATIVE [facility] Ketones Ql (U) Negative NEGATIVE [facility] pH (U) 6.0 [pH] 5.0-9.0 [facility] Specific gravity (U) [Rel density] 1.010 1.005-1.025 [facility] Urobilinogen Qn (U) 0.2 {Wil'U}/dL 0.2-1.0 [facility] - Specimen inform ationon 12-06-2023 Appearance (U) CLEAR CLEAR [facility] Color (U) LT. YELLOW YELLOW [facility] - Urinalysison Leukocyte esterase Test strip Ql (U) Negative NEGATIVE [facility] Mucus Ql (Urine sed) NONE SEEN NONE SEEN [facility] Nitrite Ql (U) Negative NEGATIVE [facility] Protein (U) [Mass/Vol] 6.0 mg/dL <=11.9 [facility] Protein Ql (U) Negative NEG/TRACE [facility] Leukocytes [#/volume] correc sigifredo for nucleated erythrocytes in Blood by Automated counon 12-06-2023 WBC corrected for nucl RBC Auto (Bld) [#/Vol] 5.1 10 3/uL 4.0-11.0 [facility] MCH Auto (RBC) [Entitic mass ]on 12-06-2023 MCH (RBC) [Entitic mass] 29.9 pg 26.7-34.0 [facility] MCHC Auto (RBC) [Mass/Vol]on 12-06-2023 MCHC (RBC) [Mass/Vol] 32.3 g/dL 29.9-35.2 [facility] MCV Auto (RBC) [Entitic vol] on 12-06-2023 MCV (RBC) [Entitic vol] 92.7 fL 81.0-99.0 [facility] No Panel Informationon 12-05 25-Hydroxy Vitamin D Total 48.2 ng/mL [facility] Comment on above: <20 ng/mL Vit D defi cient20-<30 ng/mL Vit D qyvtanrbthfs16-216 ng/mL Vit D sufficient>100 ng/mL Potential Toxicity Parathyroid Hormone (Intact) 38 pg/mL 15-65 [facility] Comment on above: Performed at: CB - [facility] [address] [id number] Director: Remy Sanchez PhD, Phone: [phone] Phosphorus Level 4.6 mg/dL 2.6-4.7 [facility] Urine Bacteria NONE SEEN #/HPF NONE SEEN [facility] Urine Occult Blood Negative NEGATIVE [facility] Urine Other Casts NONE SEEN #/LPF NONE SEEN [facility] Urine Other Crystals None Seen #/HPF None Seen [facility] Urine Random Creatinine 48.03 mg/dL 20.00-300.00 [facility] Urine RBC 0-2 #/HPF 0-2 [facility] Urine Squamous Epithelial Cells RARE #/LPF NONE/RARE [facility] Urine WBC 0-2 #/HPF Abnormal NONE SEEN [facility] Platelet mean volume Auto (B ld) [Entitic vol]on 12-06-2023 Platelet mean volume (Bld) [Entitic vol] 8.9 fL Low 9.5-13.5 [facility] Platelets Auto (Bld) [#/Vol] on 12-06-2023 Platelets (Bld) [#/Vol] 162 10 3/uL 150-450 [facility] RBC Auto (Bld) [#/Vol]on RBC (Bld) [#/Vol] 4.41 10 6/uL 4.20-5.40 [facility] Serum or plasma anion gap de terminationon 12-06-2023 Anion gap [Moles/Vol] 13.0 mmol/L [facility] Urine protein/creatinine rat ioon 12-06-2023 Protein/Creatinine (U) [Ratio] 0.12 [facility] HbA1c HPLC (Bld) [Mass fract ion]on 10-04-2023 HbA1c (Bld) [Mass fraction] 5.5 % [facility] No Panel Informationon 10-03 Bedside Glucose 106 [facility] BASIC METABOLIC PANLon 09-26 Anion gap [Moles/Vol] 11 mmol/L Normal 5-15 [facility] Comment on above: Performed By: #### P INR, BMP #### [facility] ([id number]) [address], [address] [place] [address] Calcium [Mass/Vol] 8.9 mg/dL Normal 8.5-10.5 [facility] Comment on above: Performed By: #### P INR, BMP #### [facility] ([id number]) [address], [address] [place] [address] Chloride [Moles/Vol] 103 mmol/L Normal 98-109 [facility] Comment on above: Performed By: #### P INR, BMP #### [facility] ([id number]) [address], [address] [place] [address] CO2 [Moles/Vol] 26 mmol/L Normal 22-32 [facility] Comment on above: Performed By: #### P INR, BMP #### [facility] ([id number]) [address], [address] [place] [address] Creatinine [Mass/Vol] 1.04 mg/dL High 0.40-1.00 [facility] Comment on above: Result Comment: METH OD TRACEABLE TO IDMS STANDARD Performed By: #### P INR, BMP #### [facility] ([id number]) [address], [address] [place] [address] GFR/1.73 sq M.predicted among non-blacks MDRD (S/P/Bld) [Vol rate/Area] 56 mL/min/{1.73_m2} Low >59 [facility] Comment on above: Result Comment: Reported eGFR is based on the CKD-EPI 2020 equation that does not use a race coefficient. Performed By: #### P INR, BMP #### [facility] ([id number]) [address], [address] [place] [address] Glucose [Mass/Vol] 120 mg/dL High 65-99 [facility] Comment on above: Performed By: #### P INR, BMP #### [facility] ([id number]) [address], [address] [place] [address] Potassium [Moles/Vol] 4.0 mmol/L Normal 3.5-5.0 [facility] Comment on above: Performed By: #### P INR, BMP #### [facility] ([id number]) [address], [address] [place] [address] Sodium [Moles/Vol] 140 mmol/L Normal 134-146 [facility] Comment on above: Performed By: #### P INR, BMP #### [facility] ([id number]) [address], [address] [address] Urea nitrogen [Mass/Vol] 23 mg/dL Normal 5-27 [facility] Comment on above: Performed By: #### P INR, BMP #### [facility] ([id number]) [address], [address] [place] [address] PROTIME AND INRon 09-27-2023 INR Coag (PPP) [Relative time] 1.0 {INR} Normal 0.8-1.1 [facility] Comment on above: Performed By: #### P INR, BMP #### [facility] ([id number]) [address], [address] [place] [address] PT Coag (PPP) [Time] 11.8 s Normal 9.8-13.2 [facility] Comment on above: Performed By: #### P INR, BMP #### [facility] ([id number]) [address], [address] [place] [address] MR SHOULDER RIGHT WO IV CONT RASTon [...] Comment: MRI R T shoulder w/o at [facility]. Orbits if needed. Automated epithelial cells c ount in urine sediment (number/area)on 06-07-2023 Epithelial cells Auto (Urine sed) [#/Area] RARE #/LPF NONE/RARE [facility] Automated leukocytes count i n urine sediment (number/area)on 06-07-2023 WBC Auto (Urine sed) [#/Area] NONE SEEN #/HPF 0-2 [facility] Automated urine specific gra vity by refractometryon 06-07-2023 Specific gravity Refractometry automated (U) [Rel density] 1.020 1.005-1.025 [facility] Bilirubin Auto test strip (U ) [Mass/Vol]on 06-07-2023 Bilirubin (U) [Mass/Vol] Negative NEGATIVE [facility] Casts typing in urine sedime nt by light microscopyon 06-07-2023 Casts LM Nom (Urine sed) NONE SEEN #/LPF NONE SEEN [facility] Color Auto (U)on 06-07-2023 Color (U) LT. YELLOW YELLOW [facility] Erythrocyte distribution wid th Auto (RBC) [Ratio]on 06-07-2023 Erythrocyte distribution width (RBC) [Ratio] 12.8 % 11.0-15.0 [facility] Estimated glomerular filtrat ion rate (GFR) non- Americanon 06-07-2023 GFR/1.73 sq M.predicted among non-blacks MDRD (S/P/Bld) [Vol rate/Area] 50 mL/min/{1.73_m2} >=60 [facility] Hematocrit Auto (Bld) [Volum e fraction]on 06-07-2023 Hematocrit (Bld) [Volume fraction] 40.7 % 36.0-48.0 [facility] Hemoglobin [Mass/volume] in Bloodon 06-07-2023 Hemoglobin (Bld) [Mass/Vol] 13.0 g/dL 12.0-16.0 [facility] Ketones Auto test strip (U) [Mass/Vol]on 06-07-2023 Ketones (U) [Mass/Vol] Negative NEGATIVE [facility] - Chemistry and C hemistry - challengeon 06-07-2023 Albumin [Mass/Vol] 3.5 g/dL 3.4-5.0 [facility] Calcium [Mass/Vol] 8.9 mg/dL 8.5-10.1 [facility] Chloride [Moles/Vol] 103 mmol/L 98-107 [facility] CO2 [Moles/Vol] 27.6 mmol/L 21.0-32.0 [facility] Creatinine [Mass/Vol] 1.07 mg/dL 0.55-1.02 [facility] GFR/1.73 sq M.predicted MDRD (S/P/Bld) [Vol rate/Area] mL/min/{1.73_m2} >=60 [facility] Glucose [Mass/Vol] 96 mg/dL 74-106 [facility] Magnesium [Mass/Vol] 2.0 mg/dL 1.8-2.4 [facility] Potassium [Moles/Vol] 3.9 mmol/L 3.5-5.1 [facility] Sodium [Moles/Vol] 140 mmol/L 136-145 [facility] Urate [Mass/Vol] 3.9 mg/dL 2.6-6.0 [facility] Urea nitrogen [Mass/Vol] 24.0 mg/dL 7.0-18.0 [facility] Urea nitrogen/Creatinine [Mass ratio] 22.4 mg/mg [facility] Leukocytes [#/volume] correc sigifredo for nucleated erythrocytes in Blood by Automated counon 06-07-2023 WBC corrected for nucl RBC Auto (Bld) [#/Vol] 5.7 10 3/uL 4.0-11.0 [facility] MCH Auto (RBC) [Entitic mass ]on 06-07-2023 MCH (RBC) [Entitic mass] 30.0 pg 26.7-34.0 [facility] MCHC Auto (RBC) [Mass/Vol]on 06-07-2023 MCHC (RBC) [Mass/Vol] 31.9 g/dL 29.9-35.2 [facility] MCV Auto (RBC) [Entitic vol] on 06-07-2023 MCV (RBC) [Entitic vol] 94.0 fL 81.0-99.0 [facility] Mucus LM Ql (Urine sed)on Mucus Ql (Urine sed) NONE SEEN NONE SEEN [facility] No Panel Informationon 06-06 25-Hydroxy Vitamin D Total 42.6 ng/mL [facility] Comment on above: <20 ng/mL Vit D defi cient20-<30 ng/mL Vit D eikryywocyhi76-357 ng/mL Vit D sufficient>100 ng/mL Potential Toxicity Miscellaneous Test COMMENT . [facility] Comment on above: Test Ordered: [id number] Prot+CreatU (Random)Creatinine, Urine 58.5 mg/dL CB Reference Range: Not Estab.Protein,Total,Urine 7.2 mg/dL CB Reference Range: Not Estab.Protein/Creat Ratio 123 CB Units of Measure: mg/g creat Reference Range: 0-200Performed at: CB - [facility] [address] [id number] Director: Remy Sanchez PhD, Phone: [phone] Parathyroid Hormone (Intact) 99 pg/mL 1565 [facility] Comment on above: Performed at: CB - [facility] [address] [id number] Director: Remy Sanchez PhD, Phone: [phone] Phosphorus Level 3.8 mg/dL 2.6-4.7 [facility] Platelet mean volume Auto (B ld) [Entitic vol]on 06-07-2023 Platelet mean volume (Bld) [Entitic vol] 8.7 fL 9.5-13.5 [facility] Platelets Auto (Bld) [#/Vol] on 06-07-2023 Platelets (Bld) [#/Vol] 167 10 3/uL 150-450 [facility] Protein Auto test strip (U) [Mass/Vol]on 06-07-2023 Protein (U) [Mass/Vol] Negative NEG/TRACE [facility] RBC Auto (Bld) [#/Vol]on RBC (Bld) [#/Vol] 4.33 10 6/uL 4.20-5.40 [facility] Serum or plasma anion gap de terminationon 06-07-2023 Anion gap [Moles/Vol] 13.3 mmol/L [facility] Specific gravity Auto test s trip (U) [Rel density]on 06-07-2023 Specific gravity (U) [Rel density] CLEAR CLEAR [facility] Urine bacteria detection by automated methodon 06-07-2023 Bacteria Auto Ql (U) TRACE #/HPF NONE SEEN [facility] Urine glucose measurement by test strip (mass/volume)on 06-07-2023 Glucose Test strip (U) [Mass/Vol] 250 mg/dL NEGATIVE [facility] Urine hemoglobin detection b y automated test stripon 06-07-2023 Hemoglobin Auto test strip Ql (U) Negative NEGATIVE [facility] Urine nitrite detection by a utomated test stripon 06-07-2023 Nitrite Auto test strip Ql (U) TRACE NEGATIVE [facility] Nitrite Auto test strip Ql (U) Negative NEGATIVE [facility] Urine sediment crystal ident ification by light microscopyon 06-07-2023 Crystals LM Nom (Urine sed) None Seen #/HPF None Seen [facility] Urine sediment leukocyte cou nt by microscopy (number/high power field)on 06-07-2023 WBC LM.HPF (Urine sed) [#/Area] 0-2 #/HPF NONE SEEN [facility] Urobilinogen Auto test strip (U) [Mass/Vol]on 06-07-2023 Urobilinogen Qn (U) 0.2 {Wil'U}/dL 0.2-1.0 [facility] pH Auto test strip (U)on pH (U) 6.0 [pH] 5.0-9.0 [facility] Lipid 1996 panelon 4 Cholesterol [Mass/Vol] 144 mg/dL Low 150-200 [facility] Comment on above: Performed By: #### 2 4331-1 #### [facility] ([id number]) [address] [place] [address] Cholesterol in HDL [Mass/Vol] 49 mg/dL Normal >39 [facility] Comment on above: Result Comment: HDL <40 mg/dL - High Risk HDL > or = 40mg/dL- Desirable HDL >60 mg/dL - Negative Risk Performed By: #### 2 4331-1 #### [facility] ([id number]) [address], [address] [place] [address] Cholesterol in LDL [Mass/Vol] 49 mg/dL Normal <130 [facility] Comment on above: Result Comment: LDL <100 mg/dL - Desirable LDL >160 mg/dL - High Risk Performed By: #### 2 4331-1 #### [facility] ([id number]) [address], [address] [place] [address] Cholesterol in VLDL [Mass/Vol] 46 mg/dL High 0-30 [facility] Comment on above: Performed By: #### 2 4331-1 #### [facility] ([id number]) [address], [address] [place] [address] CHOLESTEROL:HDL 2.9 Normal 1.0-5.0 [facility] Comment on above: Performed By: #### 2 4331-1 #### [facility] ([id number]) [address], [address] [place] [address] Triglyceride [Mass/Vol] 228 mg/dL High 27-150 [facility] Comment on above: Performed By: #### 2 4331-1 #### [facility] ([id number]) [address], [address] [place] [address] A1C HEMOGLOBINon 09-29-2022 HbA1c (Bld) [Mass fraction] 6.2 % [employer] [facility] [employer] Other Glucose - FINGER STICKon Glucose [Mass/Vol] 113 mg/dL [facility] Other HbA1c (Bld) [Mass fraction]o n 09-29-2022 A1C HEMOGLOBIN [employer] [facility] [employer] Other PTH INTACTon 06-03-2022 PTH, Intact 38 pg/mL Normal 15-65 [facility] Comment on above: Performed By: #### P THINT #### [facility] [address] [place] [address] Rizwan Fernando HEMOGRAM AND PLATELon 2022 Hematocrit (Bld) [Volume fraction] 39.5 % Normal 36.0-48.0 [facility] Comment on above: Performed By: #### H H #### [facility] [address] [place] [address] Dr. Rizwan Fernando Hemoglobin (Bld) [Mass/Vol] 12.8 g/dL Normal 12.0-16.0 [facility] Comment on above: Performed By: #### H H #### [facility] [address] [place] [address] Dr. Rizwan Fernando MCH (RBC) [Entitic mass] 28.9 pg Normal 26.7-34.0 [facility] Comment on above: Performed By: #### H H #### [facility] [address] [place] [address] Dr. Rizwan Fernando MCHC (RBC) [Mass/Vol] 32.4 g/dL Normal 29.9-35.2 [facility] Comment on above: Performed By: #### H H #### [facility] [address] [place] [address] Dr. Rizwan Fernando MCV (RBC) [Entitic vol] 89.2 fL Normal 81.0-99.0 [facility] Comment on above: Performed By: #### H H #### [facility] [address] [place] [address] Dr. Rizwan Fernando PLT 202 103/ul Normal 150-450 [facility] Comment on above: Performed By: #### H H #### [facility] [address] [place] [address] Dr. Rizwan Fernando RBC 4.43 106/ul Normal 4.20-5.40 [facility] Comment on above: Performed By: #### H H #### [facility] [address] [place] [address] Dr. Rizwan Fernando WBC 6.2 103/ul Normal 4.0-11.0 [facility] Comment on above: Performed By: #### H H #### [facility] [address] [place] [address] Dr. Rizwan Fernando IRON AND TIBCon 06-02-2022 % SATURATION 23.2 % Normal [facility] Comment on above: Performed By: #### R ENAL, MG, URIC #### [facility] [address] [place] [address] Dr. Rizwan Fernando Iron [Mass/Vol] 64.0 ug/dL Normal 50.0-170.0 [facility] Comment on above: Performed By: #### R ENAL, MG, URIC #### [facility] [address] [place] [address] Dr. Rizwan Fernando TIBC DIRECT 276.0 ug/dL Normal 250.0-450.0 [facility] Comment on above: Performed By: #### R ENAL, MG, URIC #### [facility] [address] [address] [address] Rizwan Fernando MAGNESIUMon 06-02-2022 Magnesium [Mass/Vol] 1.9 mg/dL Normal 1.8-2.4 [facility] Comment on above: Performed By: #### R ENAL, MG, URIC #### [facility] [address] [place] [address] Dr. Rizwan Fernando RENAL FUNCTION PANELon 06-02 Albumin [Mass/Vol] 3.9 g/dL Normal 3.4-5.0 [facility] Comment on above: Performed By: #### R ENAL, MG, URIC #### [facility] [address] [address] [address] Rizwan Fernando Calcium [Mass/Vol] 9.2 mg/dL Normal 8.5-10.1 [facility] Comment on above: Performed By: #### R ENAL, MG, URIC #### [facility] [address] [address] [address] Rizwan Fernando Chloride [Moles/Vol] 102 mmol/L Normal 98-107 [facility] Comment on above: Performed By: #### R ENAL, MG, URIC #### [facility] [address] [address] [address] Rizwan Fernando CO2 [Moles/Vol] 29.2 mmol/L Normal 21.0-32.0 [facility] Comment on above: Performed By: #### R ENAL, MG, URIC #### [facility] [address] [place] [address] Dr. Rizwan Fernando Creatinine [Mass/Vol] 1.05 mg/dL Critically high 0.55-1.02 [facility] Comment on above: Performed By: #### R ENAL, MG, URIC #### [facility] [address] [address] [address] Rizwan Fernando EGFR-AF [place] >60 Normal >=60 [facility] Comment on above: Performed By: #### R ENAL, MG, URIC #### [facility] [address] [address] [address] Rizwan Fernando EGFR-NON AF [place] 51 mL/min/1.73m2 Critically low >=60 [facility] Comment on above: Performed By: #### R ENAL, MG, URIC #### [facility] [address] [address] [address] Rizwan Fernando Glucose [Mass/Vol] 112 mg/dL Critically high 74-106 [facility] Comment on above: Performed By: #### R ENAL, MG, URIC #### [facility] [address] [place] [address] Dr. Rizwan Fernando Phosphate [Mass/Vol] 4.3 mg/dL Normal 2.6-4.7 [facility] Comment on above: Performed By: #### R ENAL, MG, URIC #### [facility] [address] [place] [address] Dr. Rizwan Fernando Potassium [Moles/Vol] 4.0 mmol/L Normal 3.5-5.1 [facility] Comment on above: Performed By: #### R ENAL, MG, URIC #### [facility] [address] [address] [address] Rizwan Fernando Sodium [Moles/Vol] 139 mmol/L Normal 136-145 [facility] Comment on above: Performed By: #### R ENAL, MG, URIC #### [facility] [address] [place] [address] Dr. Rizwan Fernando Urea nitrogen [Mass/Vol] 24.0 mg/dL Critically high 7.0-18.0 [facility] Comment on above: Performed By: #### R ENAL, MG, URIC #### [facility] [address] [place] [address] Dr. Rizwan Fernando UA RANDOM W/MICROSCOPICon BACTERIA NONE SEEN Normal NONE SEEN [facility] Comment on above: Performed By: #### R ENAL, MG, URIC #### [facility] [address] [place] [address] Dr. Rizwan Fernando Bilirubin Ql (U) Negative Normal NEGATIVE [facility] Comment on above: Performed By: #### R ENAL, MG, URIC #### [facility] [address] [place] [address] Dr. Rizwan Fernando CAST NONE SEEN Normal NONE SEEN [facility] Comment on above: Performed By: #### R ENAL, MG, URIC #### [facility] [address] [place] [address] Dr. Rizwan Fernando Clarity (U) CLEAR Normal CLEAR [facility] Comment on above: Performed By: #### R ENAL, MG, URIC #### [facility] [address] [place] [address] Dr. Rizwan Fernando Color (U) LT. YELLOW Normal YELLOW [facility] Comment on above: Performed By: #### R ENAL, MG, URIC #### [facility] [address] [place] [address] Dr. Rizwan Fernando Crystals LM Nom (Urine sed) NONE SEEN Normal NONE SEEN [facility] Comment on above: Performed By: #### R ENAL, MG, URIC #### [facility] [address] [place] [address] Dr. Rizwan Fernando Epithelial cells LM Ql (Urine sed) NONE SEEN Normal NONE SEEN /RARE [facility] Comment on above: Performed By: #### R ENAL, MG, URIC #### [facility] [address] [place] [address] Dr. Rizwan Fernando Glucose Ql (U) 250 mg/dl Abnormal NEGATIVE [facility] Comment on above: Performed By: #### R ENAL, MG, URIC #### [facility] [address] [place] [address] Dr. Rizwan Fernando Hemoglobin Ql (U) Negative Normal NEGATIVE [facility] Comment on above: Performed By: #### R ENAL, MG, URIC #### [facility] [address] [address] [address] Rizwan Fernando Ketones Ql (U) Negative Normal NEGATIVE [facility] Comment on above: Performed By: #### R ENAL, MG, URIC #### [facility] [address] [address] [address] Rizwan Fernando LEUKOCYTES TRACE Abnormal NEGATIVE [facility] Comment on above: Performed By: #### R ENAL, MG, URIC #### [facility] [address] [address] [address] Rizwan Fernando MUCOUS NONE SEEN Normal NONE SEEN [facility] Comment on above: Performed By: #### R ENAL, MG, URIC #### [facility] [address] [place] [address] Dr. Rizwan Fernando Nitrite Ql (U) Negative Normal NEGATIVE [facility] Comment on above: Performed By: #### R ENAL, MG, URIC #### [facility] [address] [place] [address] Dr. Rizwan Fernando pH (U) 6.0 [pH] Normal 5-9 [facility] Comment on above: Performed By: #### R ENAL, MG, URIC #### [facility] [address] [place] [address] Dr. Rizwan Fernando RBC NONE SEEN Abnormal 0-2 [facility] Comment on above: Performed By: #### R ENAL, MG, URIC #### [facility] [address] [place] [address] Dr. Rizwan Fernando SPEC GRAVITY 1.015 Normal 1.005-<=1.025 [facility] Comment on above: Performed By: #### R ENAL, MG, URIC #### [facility] [address] [place] [address] Dr. Rizwan Fernando UA PROTEIN Negative Normal NEGATIVE/ TRACE [facility] Comment on above: Performed By: #### R ENAL, MG, URIC #### [facility] Laboratory [address] [address] [address] Rizwan Fernando Urobilinogen Qn (U) 0.2 {Wil'U}/dL Normal 0.2 - 1. 0 [facility] Comment on above: Performed By: #### R ENAL, MG, URIC #### [facility] Laboratory [address] [place] [address] Dr. Rizwan Fernando WBC 0-2 Abnormal NONE SEEN [facility] Comment on above: Performed By: #### R ENAL, MG, URIC #### [facility] Laboratory [address] [place] [address] Dr. Rizwan Fernando URIC ACID SERUMon 06-02-2022 Urate [Mass/Vol] 4.3 mg/dL Normal 2.6-6.0 [facility] Comment on above: Performed By: #### R ENAL, MG, URIC #### [facility] Laboratory [address] [place] [address] Dr. Rizwan Fernando URINE T PROTEIN CREAT RATIOo n 06-02-2022 Protein (U) [Mass/Vol] 12.9 mg/dL Critically high <=12.0 [facility] Comment on above: Performed By: #### U RTPCR #### [facility] Laboratory [address] [place] [address] Dr. Rizwan Fernando UR PROT CREAT RAT 0.21 Normal [facility] Comment on above: Performed By: #### U RTPCR #### [facility] Laboratory [address] [place] [address] Dr. Rizwan Fernando URINE CREAT 62.07 mg/dL Normal 20.00-300.00 [facility] Comment on above: Performed By: #### U RTPCR #### [facility] Laboratory [address] [place] [address] Dr. Rizwan Fernando VITAMIN D 25 OHon 06-02-2022 VIT D 25-OH 42.4 ng/mL Normal [facility] Comment on above: Performed By: #### R ENAL, MG, URIC #### [facility] Laboratory [address] [place] [address] Dr. Rizwan Fernando VIT D RANGES SEE BELOW Normal [facility] Comment on above: Result Comment: <20 ng/mL Vit D deficient 20 - <30 ng/mL Vit D insufficient 30 - 100 ng/mL Vit D sufficient >100 ng/mL Potential Toxicity Performed By: #### R ENAL, MG, URIC #### [facility] Laboratory [address] [address] [address] Rizwan Fernando A1C HEMOGLOBINon 03-31-2022 HbA1c (Bld) [Mass fraction] 5.8 % Violet Grey Other Glucose - FINGER STICKon Glucose [Mass/Vol] 135 mg/dL Violet Grey Other HbA1c (Bld) [Mass fraction]o n 03-31-2022 A1C HEMOGLOBIN [facility] [employer] Other PROF CHEM 8 (BAS METB)on Anion gap [Moles/Vol] 13.7 mmol/L Normal [facility] Comment on above: Performed By: #### R ENAL, MG, URIC #### [facility] Laboratory [address] [address] [address] Rizwan Fernando Calcium [Mass/Vol] 9.1 mg/dL Normal 8.5-10.1 [facility] Comment on above: Performed By: #### R ENAL, MG, URIC #### [facility] Laboratory [address] [address] [address] Rizwan Fernando Chloride [Moles/Vol] 103 mmol/L Normal 98-107 [facility] Comment on above: Performed By: #### R ENAL, MG, URIC #### [facility] Laboratory [address] [address] [address] Rizwan Fernando CO2 [Moles/Vol] 28.8 mmol/L Normal 21.0-32.0 [facility] Comment on above: Performed By: #### R ENAL, MG, URIC #### [facility] Laboratory [address] [address] [address] Rizwan Fernando Creatinine [Mass/Vol] 1.21 mg/dL Critically high 0.55-1.02 [facility] Comment on above: Performed By: #### R ENAL, MG, URIC #### [facility] Laboratory [address] [place] [address] Dr. Rizwan Fernando EGFR-AF [place]IZ[place] 53 mL/min/1.73m2 Critically low >=60 [facility] Comment on above: Performed By: #### R ENAL, MG, URIC #### [facility] Laboratory [address] [place] [address] Dr. Rizwan Fernando EGFR-NON AF [place]IZ[place] 43 mL/min/1.73m2 Critically low >=60 [facility] Comment on above: Performed By: #### R ENAL, MG, URIC #### [facility] Laboratory [address] [place] [address] Dr. Rizwan Fernando Glucose [Mass/Vol] 121 mg/dL Critically high 74-106 [facility] Comment on above: Performed By: #### R ENAL, MG, URIC #### [facility] Laboratory [address] [place] [address] Dr. Rizwan Fernando Potassium [Moles/Vol] 4.5 mmol/L Normal 3.5-5.1 [facility] Comment on above: Performed By: #### R ENAL, MG, URIC #### [facility] Laboratory [address] [place] [address] Dr. Rizwan Fernando Sodium [Moles/Vol] 141 mmol/L Normal 136-145 [facility] Comment on above: Performed By: #### R ENAL, MG, URIC #### [facility] Laboratory [address] [place] [address] Dr. Rizwan Fernando Urea nitrogen [Mass/Vol] 26.0 mg/dL Critically high 7.0-18.0 [facility] Comment on above: Performed By: #### R ENAL, MG, URIC #### [facility] Laboratory [address] [place] [address] Dr. Rizwan Fernando Urea nitrogen/Creatinine [Mass ratio] 21.5 mg/mg Normal [facility] Comment on above: Performed By: #### R ENAL, MG, URIC #### [facility] Laboratory [address] [place] [address] Dr. Rizwan Fernando MG MAMM SCREEN 3D NICOLE CADon 02-05-2022 MG MAMM SCREEN 3D NICOLE CAD Patient: ASHLEY WANG Exam Date: 02/05/2022 : 1945 Gender:F Ordering : LIZETTE DANA TAPIA INSIDE UPHOLSTERER Admission #: [id number] Family : Order #: [id number] CLICK HERE TO VIEW EXAM RADIOLOGY REPORT PROCEDURE: MAMMOGRAM SCREENING 3D BILATERAL CAD COMPARISON: MG MAMM SCREEN 3D NICOLE CAD, 02/02/2021. INDICATIONS: Screening mammography Calculator Name [facility] Breast Cancer Risk Assessment Tool 5 Year Breast Cancer Risk 3.90% Lifetime Breast Cancer Risk 8.20% Personal Breast Cancer No Personal Ovarian Cancer Yes, Age 51, Hysterectomy Treatments None Family Cancers Mother with breast cancer at age 63; Sister with uterine cancer at age 23; Brother with liver cancer at age 68. LOCATION: [facility] BREAST COMPOSITION: Scattered areas fibroglandular density. [...] Hancock MD on 02/05/2022 at 09:50 Normal [facility] RENAL FUNCTION PANELon 12-22 Albumin [Mass/Vol] 4.4 g/dL Normal 3.4-5.0 [facility] Comment on above: Performed By: #### R ENAL, MG, URIC #### [facility] Laboratory [address] [address] [address] Rizwan Fernando Calcium [Mass/Vol] 9.5 mg/dL Normal 8.5-10.1 [facility] Comment on above: Performed By: #### R ENAL, MG, URIC #### [facility] Laboratory [address] [address] [address] Rizwan Fernando Chloride [Moles/Vol] 102 mmol/L Normal 98-107 [facility] Comment on above: Performed By: #### R ENAL, MG, URIC #### [facility] Laboratory [address] [place] [address] Dr. Rizwan Fernando CO2 [Moles/Vol] 29.2 mmol/L Normal 21.0-32.0 [facility] Comment on above: Performed By: #### R ENAL, MG, URIC #### [facility] Laboratory [address] [place] [address] Dr. Rizwan Fernando Creatinine [Mass/Vol] 1.04 mg/dL Critically high 0.55-1.02 [facility] Comment on above: Performed By: #### R ENAL, MG, URIC #### [facility] Laboratory [address] [place] [address] Dr. Rizwan Fernando EGFR-AF [place]IZ[place] >60 Normal >=60 [facility] Comment on above: Performed By: #### R ENAL, MG, URIC #### [facility] Laboratory [address] [place] [address] Dr. Rizwan Fernando EGFR-NON AF [place] 52 mL/min/1.73m2 Critically low >=60 [facility] Comment on above: Performed By: #### R ENAL, MG, URIC #### [facility] Laboratory [address] [place] [address] Dr. Rizwan Fernando Glucose [Mass/Vol] 101 mg/dL Normal 74-106 [facility] Comment on above: Performed By: #### R ENAL, MG, URIC #### [facility] Laboratory [address] [place] [address] Dr. Rizwan Fernando Phosphate [Mass/Vol] 5.0 mg/dL Critically high 2.6-4.7 [facility] Comment on above: Performed By: #### R ENAL, MG, URIC #### [facility] Laboratory [address] [place] [address] Dr. Rizwan Fernando Potassium [Moles/Vol] 4.1 mmol/L Normal 3.5-5.1 [facility] Comment on above: Performed By: #### R ENAL, MG, URIC #### [facility] Laboratory [address] [place] [address] Dr. Rizwan Fernando Sodium [Moles/Vol] 141 mmol/L Normal 136-145 [facility] Comment on above: Performed By: #### R ENREANNA MG, URIC #### [facility] Laboratory [address] [place] [address] Dr. Rizwan Fernando Urea nitrogen [Mass/Vol] 24.0 mg/dL Critically high 7.0-18.0 [facility] Comment on above: Performed By: #### R ENAL MG, URIC #### [facility] [address] [address] [address] Rizwan Fernando A1C HEMOGLOBINon 12-21-2021 HbA1c (Bld) [Mass fraction] 6.1 % Violet Grey Other Glucose - FINGER STICKon Glucose [Mass/Vol] 137 mg/dL Violet Grey Other HbA1c (Bld) [Mass fraction]o n 12-21-2021 A1C HEMOGLOBIN [employer] [facility] [employer] Other PTH INTACTon 12-05-2021 PTH, Intact 26 pg/mL Normal 15-65 [facility] Comment on above: Performed By: #### R ENREANNA MG, URIC #### [facility] Laboratory [address] [place] [address] Dr. Rizwan Fernando FERRITINon 12-04-2021 Ferritin [Mass/Vol] 89.0 ng/mL Normal 8.0-252.0 [facility] Comment on above: Performed By: #### R ENREANNA MG, URIC #### [facility] Laboratory [address] [place] [address] Dr. Rizwan Fernando HEMOGRAM AND PLATELon 2021 Hematocrit (Bld) [Volume fraction] 38.3 % Normal 36.0-48.0 [facility] Comment on above: Performed By: #### R ENAL MG, URIC #### [facility] Laboratory [address] [place] [address] Dr. Rizwan Fernando Hemoglobin (Bld) [Mass/Vol] 12.5 g/dL Normal 12.0-16.0 [facility] Comment on above: Performed By: #### R ENAL, MG, URIC #### [facility] Laboratory [address] [address] [address] Rizwan Fernando MCH (RBC) [Entitic mass] 28.9 pg Normal 26.7-34.0 [facility] Comment on above: Performed By: #### R ENAL, MG, URIC #### [facility] Laboratory [address] [place] [address] Dr. Rizwan Fernando MCHC (RBC) [Mass/Vol] 32.6 g/dL Normal 29.9-35.2 [facility] Comment on above: Performed By: #### R ENAL, MG, URIC #### [facility] Laboratory [address] [place] [address] Dr. Rizwan Fernando MCV (RBC) [Entitic vol] 88.5 fL Normal 81.0-99.0 [facility] Comment on above: Performed By: #### R ENAL, MG, URIC #### [facility] Laboratory [address] [place] [address] Dr. Rizwan Fernando PLT 188 103/ul Normal 150-450 [facility] Comment on above: Performed By: #### R ENAL, MG, URIC #### [facility] Laboratory [address] [place] [address] Dr. Rizwan Fernando RBC 4.33 106/ul Normal 4.20-5.40 [facility] Comment on above: Performed By: #### R ENAL, MG, URIC #### [facility] Laboratory [address] [place] [address] Dr. Rizwan Fernando WBC 5.4 103/ul Normal 4.0-11.0 [facility] Comment on above: Performed By: #### R ENAL, MG, URIC #### [facility] Laboratory [address] [place] [address] Dr. Rizwan Fernando IRON AND TIBCon 12-04-2021 % SATURATION 20.3 % Normal [facility] Comment on above: Performed By: #### R ENAL, MG, URIC #### [facility] Laboratory [address] [place] [address] Dr. Rizwan Fernando Iron [Mass/Vol] 56.0 ug/dL Normal 50.0-170.0 [facility] Comment on above: Performed By: #### R ENAL, MG, URIC #### [facility] Laboratory [address] [address] [address] Rizwan Fernando TIBC DIRECT 276.0 ug/dL Normal 250.0-450.0 [facility] Comment on above: Performed By: #### R ENAL, MG, URIC #### [facility] Laboratory [address] [address] [address] Rizwan Fernando LIPID PROFILEon 12-04-2021 CHOL-HDL RATIO NORM SEE BELOW Normal [facility] Comment on above: Result Comment: 3.3 - 4.4 LOW RISK 4.4 - 7.1 AVERAGE RISK 7.1 - 11.0 MODERATE RISK >11.0 HIGH RISK Performed By: #### R ENAL, MG, URIC #### [facility] [address] [address] [address] Rizwan Fernando Cholesterol [Mass/Vol] 152 mg/dL Normal <=200 [facility] Comment on above: Performed By: #### R ENAL, MG, URIC #### [facility] Laboratory [address] [address] [address] Rizwan Fernando Cholesterol in HDL [Mass/Vol] 57 mg/dL Normal 40-60 [facility] Comment on above: Performed By: #### R ENAL, MG, URIC #### [facility] [address] [address] [address] Rizwan Fernando Cholesterol in LDL [Mass/Vol] 41.4 mg/dL Normal [facility] Comment on above: Performed By: #### R ENAL, MG, URIC #### [facility] Laboratory [address] [address] [address] Rizwan Fernando Cholesterol.total/C holesterol in HDL [Mass ratio] 2.7 {ratio} Normal [facility] Comment on above: Performed By: #### R ENAL, MG, URIC #### [facility] Laboratory [address] [address] [address] Rizwan Fernando HDL NORMAL > or = 60 mg/dl - LO W CARDIOVASCULAR RISK <40 mg/dl - HIGH CARDIOVASCULAR RISK Normal [facility] Comment on above: Performed By: #### R ENAL, MG, URIC #### [facility] Laboratory [address] [address] [address] Rizwan Fernando LDL CALC NORMAL SEE BELOW Normal [facility] Comment on above: Result Comment: <100 mg/dl OPTIMAL 100 - 129 mg/dl NEAR OR ABOVE OPTIMAL 130 - 159 mg/dl BORDERLINE HIGH 160 - 189 mg/dl HIGH >190 mg/dl VERY HIGH Performed By: #### R ENAL, MG, URIC #### [facility] [address] [address] [address] Rizwan Fernando Triglyceride [Mass/Vol] 268 mg/dL Critically high <=150 [facility] Comment on above: Performed By: #### R ENAL, MG, URIC #### [facility] Laboratory [address] [address] [address] Rizwan Fernando VLDL CALC 53.6 mg/dL Normal [facility] Comment on above: Performed By: #### R ENAL, MG, URIC #### [facility] Laboratory [address] [address] [address] Rizwan Fernando MAGNESIUMon 12-04-2021 Magnesium [Mass/Vol] 1.6 mg/dL Critically low 1.8-2.4 [facility] Comment on above: Performed By: #### R ENAL, MG, URIC #### [facility] Laboratory [address] [address] [address] Rizwan Fernando MICROALB CREAT RATIO RANDOMo n 12-04-2021 mALB 1.6 mg/L Normal <=30.0 [facility] Comment on above: Performed By: #### M CRR #### [facility] Laboratory [address] [place] [address] Dr. Rizwan BILLSB CR RATIO 26.9 mg/g Normal 0.0-29.9 [facility] Comment on above: Performed By: #### M CRR #### [facility] Laboratory [address] [place] [address] Dr. Rizwan Fernando MALB CR RATIO RANGE SEE BELOW Normal [facility] Comment on above: Result Comment: NO M ICROALBUMINURIA 0-29 MG/G CLINICAL MICROALBUMINURIA 30-300 MG/G MACROALBUMINURIA >300 MG/G Performed By: #### M CRR #### [facility] Laboratory [address] [place] [address] Dr. Rizwan Fernando URINE CREAT 59.53 mg/dL Normal 20.00-300.00 [facility] Comment on above: Performed By: #### M CRR #### [facility] Laboratory [address] [place] [address] Dr. Rizwan Fernando PHOSPHORUSon 12-04-2021 Phosphate [Mass/Vol] 4.0 mg/dL Normal 2.6-4.7 [facility] Comment on above: Performed By: #### R ENAL, MG, URIC #### [facility] [address] [place] [address] Dr. Rizwan Fernando PROF 14(COMP METB)on 022 Albumin [Mass/Vol] 4.0 g/dL Normal 3.4-5.0 [facility] Comment on above: Performed By: #### R ENAL, MG, URIC #### [facility] [address] [place] [address] Dr. Rizwan Fernando Albumin/Globulin [Mass ratio] 1.3 {ratio} Normal [facility] Comment on above: Performed By: #### R ENAL, MG, URIC #### [facility] [address] [address] [address] Rizwan Fernando ALP [Catalytic activity/Vol] 118 U/L Critically high 46-116 [facility] Comment on above: Performed By: #### R ENAL, MG, URIC #### [facility] [address] [place] [address] Dr. Rizwan Fernando ALT [Catalytic activity/Vol] 23 U/L Normal 14-59 [facility] Comment on above: Performed By: #### R ENAL, MG, URIC #### [facility] Laboratory [address] [place] [address] Dr. Rizwan Fernando Anion gap [Moles/Vol] 10.7 mmol/L Normal [facility] Comment on above: Performed By: #### R ENAL, MG, URIC #### [facility] Laboratory [address] [place] [address] Dr. Rizwan Fernando AST [Catalytic activity/Vol] 20 U/L Normal 15-37 [facility] Comment on above: Performed By: #### R ENAL, MG, URIC #### [facility] [address] [place] [address] Dr. Rizwan Fernando Bilirubin [Mass/Vol] 0.6 mg/dL Normal 0.2-1.0 [facility] Comment on above: Performed By: #### R ENAL, MG, URIC #### [facility] [address] [place] [address] Dr. Rizwan Fernando Calcium [Mass/Vol] 8.9 mg/dL Normal 8.5-10.1 [facility] Comment on above: Performed By: #### R ENAL, MG, URIC #### [facility] [address] [place] [address] Dr. Rizwan Fernando Chloride [Moles/Vol] 103 mmol/L Normal 98-107 [facility] Comment on above: Performed By: #### R ENAL, MG, URIC #### [facility] [address] [place] [address] Dr. Rizwan Fernando CO2 [Moles/Vol] 28.2 mmol/L Normal 21.0-32.0 [facility] Comment on above: Performed By: #### R ENAL, MG, URIC #### [facility] [address] [place] [address] Dr. Rizwan Fernando Creatinine [Mass/Vol] 1.04 mg/dL Critically high 0.55-1.02 [facility] Comment on above: Performed By: #### R ENAL, MG, URIC #### [facility] Laboratory [address] [place] [address] Dr. Rizwan Fernando EGFR-AF [place]IZ[place] >60 Normal >=60 [facility] Comment on above: Performed By: #### R ENAL, MG, URIC #### [facility] Laboratory [address] [place], [place] [id number] Dr. Rizwan Fernando EGFR-NON AF [place] 52 mL/min/1.73m2 Critically low >=60 [facility] Comment on above: Performed By: #### R ENAL, MG, URIC #### [facility] [address] [place] [address] Dr. Rizwan Fernando Globulin (S) [Mass/Vol] 3.1 g/dL Normal [facility] Comment on above: Performed By: #### R ENAL, MG, URIC #### [facility] [address] [place] [address] Dr. Rizwan Fernando Glucose [Mass/Vol] 115 mg/dL Critically high 74-106 T [facility] Comment on above: Performed By: #### R ENAL, MG, URIC #### [facility] [address] [place] [address] Dr. Rizwan Fernando Potassium [Moles/Vol] 3.9 mmol/L Normal 3.5-5.1 [facility] Comment on above: Performed By: #### R ENAL, MG, URIC #### [facility] Laboratory [address] [address] [address] Rizwan Fernando Protein [Mass/Vol] 7.1 g/dL Normal 6.4-8.2 [facility] Comment on above: Performed By: #### R ENAL, MG, URIC #### [facility] [address] [place] [address] Dr. Rizwan Fernando Sodium [Moles/Vol] 138 mmol/L Normal 136-145 [facility] Comment on above: Performed By: #### R ENAL, MG, URIC #### [facility] [address] [place] [address] Dr. Rizwan Fernando Urea nitrogen [Mass/Vol] 23.0 mg/dL Critically high 7.0-18.0 [facility] Comment on above: Performed By: #### R ENAL, MG, URIC #### [facility] [address] [place] [address] Dr. Rizwan Fernando Urea nitrogen/Creatinine [Mass ratio] 22.1 mg/mg Normal [facility] Comment on above: Performed By: #### R ENAL, MG, URIC #### [facility] [address] [address] [address] Rizwan Fernando UA RANDOM W/MICROSCOPICon BACTERIA NONE SEEN Normal NONE SEEN [facility] Comment on above: Performed By: #### R ENAL, MG, URIC #### [facility] [address] [place] [address] Dr. Rizwan Fernando Bilirubin Ql (U) Negative Normal NEGATIVE [facility] Comment on above: Performed By: #### R ENAL, MG, URIC #### [facility] [address] [place] [address] Dr. Rizwan Fernando CAST NONE SEEN Normal NONE SEEN [facility] Comment on above: Performed By: #### R ENAL, MG, URIC #### [facility] [address] [place] [address] Dr. Rizwan Fernando Clarity (U) CLEAR Normal CLEAR [facility] Comment on above: Performed By: #### R ENAL, MG, URIC #### [facility] [address] [place] [address] Dr. Rizwan Fernando Color (U) LT. YELLOW Normal YELLOW [facility] Comment on above: Performed By: #### R ENAL, MG, URIC #### [facility] [address] [place] [address] Dr. Rizwan Fernando Crystals LM Nom (Urine sed) NONE SEEN Normal NONE SEEN [facility] Comment on above: Performed By: #### R ENAL, MG, URIC #### [facility] [address] [place] [address] Dr. Rizwan Fernando Epithelial cells LM Ql (Urine sed) RARE Normal NONE SEEN /RARE [facility] Comment on above: Performed By: #### R ENAL, MG, URIC #### [facility] [address] [place] [address] Dr. Rizwan Fernando Glucose Ql (U) Negative Normal NEGATIVE [facility] Comment on above: Performed By: #### R ENAL, MG, URIC #### [facility] [address] [place] [address] Dr. Rizwan Fernando Hemoglobin Ql (U) Negative Normal NEGATIVE [facility] Comment on above: Performed By: #### R ENAL, MG, URIC #### [facility] [address] [address] [address] Rizwan Fernando Ketones Ql (U) Negative Normal NEGATIVE [facility] Comment on above: Performed By: #### R ENAL, MG, URIC #### [facility] [address] [address] [address] Rizwan Fernando LEUKOCYTES TRACE Abnormal NEGATIVE [facility] Comment on above: Performed By: #### R ENAL, MG, URIC #### [facility] [address] [address] [address] Rizwan Fernando MUCOUS NONE SEEN Normal NONE SEEN [facility] Comment on above: Performed By: #### R ENAL, MG, URIC #### [facility] [address] [place] [address] Dr. Rizwan Fernando Nitrite Ql (U) Negative Normal NEGATIVE [facility] Comment on above: Performed By: #### R ENAL, MG, URIC #### [facility] Laboratory [address] [place], [place] [address] Dr. Rizwan Fernando pH (U) 6.0 [pH] Normal 5-9 [facility] Comment on above: Performed By: #### R ENAL, MG, URIC #### [facility] [address] [place] [address] Dr. Rizwan Fernando RBC NONE SEEN Abnormal 0-2 [facility] Comment on above: Performed By: #### R ENAL, MG, URIC #### [facility] [address] [address] [address] Rizwan Fernando SPEC GRAVITY 1.010 Normal 1.005-<=1.025 The [facility] Comment on above: Performed By: #### R ENAL, MG, URIC #### [facility] [address] [address] [address] Rizwan Frenando UA PROTEIN Negative Normal NEGATIVE/ TRACE [facility] Comment on above: Performed By: #### R ENAL, MG, URIC #### [facility] [address] [place] [address] Dr. Rizwan Fernando Urobilinogen Qn (U) 0.2 {Wil'U}/dL Normal 0.2 - 1. 0 [facility] Comment on above: Performed By: #### R ENAL, MG, URIC #### [facility] [address] [place] [address] Dr. Rizwan Fernando WBC 0-2 Abnormal NONE SEEN [facility] Comment on above: Performed By: #### R ENAL, MG, URIC #### [facility] [address] [place] [address] Dr. Rizwan Fernando URIC ACID SERUMon 12-04-2021 Urate [Mass/Vol] 5.5 mg/dL Normal 2.6-6.0 [facility] Comment on above: Performed By: #### R ENAL, MG, URIC #### [facility] [address] [place] [address] Dr. Rizwan Fernando URINE T PROTEIN CREAT RATIOo n 12-04-2021 Protein (U) [Mass/Vol] 10.7 mg/dL Normal <=12.0 [facility] Comment on above: Performed By: #### R ENAL, MG, URIC #### [facility] [address] [place] [address] Dr. Rizwan Fernando UR PROT CREAT RAT 0.18 Normal The [facility] Comment on above: Performed By: #### R ENAL, MG, URIC #### [facility] [address] [place] [address] Dr. Rizwan Fernando URINE CREAT 59.94 mg/dL Normal 20.00-300.00 [facility] Comment on above: Performed By: #### R ENAL, MG, URIC #### [facility] [address] [place] [address] Dr. Rizwan Fernando VITAMIN B12on 12-04-2021 Cobalamin (Vitamin B12) [Mass/Vol] 1679.0 pg/mL Critically high 193.0-986.0 [facility] Comment on above: Performed By: #### V ITB12 #### [facility] [address] [address] [address] Rizwan Fernando VITAMIN D 25 OHon 12-04-2021 VIT D 25-OH 38.3 ng/mL Normal [facility] Comment on above: Performed By: #### R ENAL MG, URIC #### [facility] [address] [place] [address] Dr. Rizwan Fernando VIT D RANGES SEE BELOW Normal [facility] Comment on above: Result Comment: <20 ng/mL Vit D deficient 20 - <30 ng/mL Vit D insufficient 30 - 100 ng/mL Vit D sufficient >100 ng/mL Potential Toxicity Performed By: #### R ENREANNA MG, URIC #### [facility] [address] [place] [address] Dr. Rizwan Fernando OVA AND PARASITE EXAMINATION on 06-25-2021 Ova + Parasite Exam Final report Normal [facility] Comment on above: Result Comment: Thes e results were obtained using wet preparation(s) and trichrome stained smear. This test does not include testing for Cryptosporidium parvum, Cyclospora, or Microsporidia. Performed By: #### R ENREANNA MG, URIC #### [facility] [address] [place] [address] Dr. Rizwan Fernando Result 1 Comment Normal [facility] Comment on above: Result Comment: No o va, cysts, or parasites seen. . One negative specimen does not rule out the possibility of a parasitic infection. Performed By: #### R DAVIDA MG, URIC #### [facility] [address] [place] [address] Dr. Rizwan Fernando A1C HEMOGLOBINon 06-23-2021 HbA1c (Bld) [Mass fraction] 6.1 % Violet Grey Other Glucose - FINGER STICKon Glucose [Mass/Vol] 153 mg/dL Violet Grey Other HbA1c (Bld) [Mass fraction]o n 06-23-2021 A1C HEMOGLOBIN [employer] Other STOOL CULTUREon 06-21-2021 Campylobacter Culture Final report Normal [facility] Comment on above: Performed By: #### C XSTOOL #### [facility] [address] [address] [address] Rizwan Fernando E coli Shiga Toxin EIA Negative Normal Negative [facility] Comment on above: Performed By: #### C XSTOOL #### [facility] [address] [address] [address] Rizwan Fernando Result 1 Comment Normal [facility] Comment on above: Result Comment: No S almonella or Shigella recovered. Performed By: #### C XSTOOL #### [facility] [address] [address] [address] Rizwan Fernando Result Comment: No C ampylobacter species isolated. Salmonella/Shigella Screen Final report Normal [facility] Comment on above: Performed By: #### C XSTOOL #### [facility] [address] [place] [address] Dr. Rizwan Fernando C. DIFF PCRon 06-18-2021 C. DIFFICILE PCR Negative Normal NEGATIVE [facility] Comment on above: Performed By: #### R ENAL, MG, URIC #### [facility] [address] [place] [address] Dr. Rizwan Fernando OCC BLD IMMUNOASSAYon 2021 OCCULT BLOOD Negative Normal NEGATIVE [facility] Comment on above: Performed By: #### R ENAL, MG, URIC #### [facility] [address] [place] [address] Dr. Rizwan Fernando FERRITINon 06-12-2021 Ferritin [Mass/Vol] 64.0 ng/mL Normal 11.1-264.0 [facility] Comment on above: Performed By: #### R ENAL, MG, URIC #### [facility] [address] [place] [address] Dr. Rizwan Fernando HEMOGRAM AND PLATELon 2021 Hematocrit (Bld) [Volume fraction] 39.1 % Normal 36.0-48.0 [facility] Comment on above: Performed By: #### R ENAL, MG, URIC #### [facility] [address] [place] [address] Dr. Rizwan Fernando Hemoglobin (Bld) [Mass/Vol] 12.6 g/dL Normal 12.0-16.0 [facility] Comment on above: Performed By: #### R ENAL, MG, URIC #### [facility] [address] [place] [address] Dr. Rizwan Fernando MCH (RBC) [Entitic mass] 28.3 pg Normal 26.7-34.0 [facility] Comment on above: Performed By: #### R ENAL, MG, URIC #### [facility] [address] [place] [address] Dr. Rizwan Fernando MCHC (RBC) [Mass/Vol] 32.2 g/dL Normal 29.9-35.2 [facility] Comment on above: Performed By: #### R ENAL, MG, URIC #### [facility] [address] [place] [address] Dr. Rizwan Fernando MCV (RBC) [Entitic vol] 87.9 fL Normal 81.0-99.0 [facility] Comment on above: Performed By: #### R ENAL, MG, URIC #### [facility] [address] [place] [address] Dr. Rizwan Fernando PLT 181 103/ul Normal 150-450 [facility] Comment on above: Performed By: #### R ENAL, MG, URIC #### [facility] [address] [place] [address] Dr. Rizwan Fernando RBC 4.45 106/ul Normal 4.20-5.40 [facility] Comment on above: Performed By: #### R ENAL, MG, URIC #### [facility] [address] [place] [address] Dr. Rizwan Fernnado WBC 7.3 103/ul Normal 4.0-11.0 [facility] Comment on above: Performed By: #### R ENAL, MG, URIC #### [facility] [address] [place] [address] Dr. Rizwan Fernando IRON AND TIBCon 06-12-2021 % SATURATION 19.4 % Normal [facility] Comment on above: Performed By: #### R ENAL, MG, URIC #### [facility] [address] [address] [address] Rizwan Fernando Iron [Mass/Vol] 55.0 ug/dL Normal 37.0-170.0 [facility] Comment on above: Performed By: #### R ENAL, MG, URIC #### [facility] [address] [place] [address] Dr. Rizwan Fernando TIBC DIRECT 284.0 ug/dL Normal 261.0-497.0 The [facility] Comment on above: Performed By: #### R ENAL, MG, URIC #### [facility] [address] [address] [address] Rizwan Fernando MAGNESIUMon 06-12-2021 Magnesium [Mass/Vol] 1.9 mg/dL Normal 1.6-2.3 [facility] Comment on above: Performed By: #### R ENAL, MG, URIC #### [facility] [address] [place] [address] Dr. Rizwan Fernando RENAL FUNCTION PANELon 06-12 Albumin [Mass/Vol] 3.8 g/dL Normal 3.4-5.0 [facility] [place] Comment on above: Performed By: #### R ENAL, MG, URIC #### [facility] [address] [place] [address] Dr. Rizwan Fernando Calcium [Mass/Vol] 8.6 mg/dL Normal 8.5-10.1 [facility] [place] Comment on above: Performed By: #### R ENAL, MG, URIC #### [facility] [address] [place] [address] Dr. Rizwan Fernando Chloride [Moles/Vol] 102 mmol/L Normal 98-107 [facility] Comment on above: Performed By: #### R ENAL, MG, URIC #### [facility] [address] [place] [address] Dr. Rizwan Fernando CO2 [Moles/Vol] 31.2 mmol/L Critically high 22.0-30.0 [facility] Comment on above: Performed By: #### R ENAL, MG, URIC #### [facility] [address] [address] [address] Rizwan Fernando Creatinine [Mass/Vol] 1.07 mg/dL Critically high 0.52-1.04 [facility] Comment on above: Performed By: #### R ENAL, MG, URIC #### [facility] [address] [address] [address] Rizwan Fernando EGFR-AF [place] >60 Normal >=60 [facility] Comment on above: Performed By: #### R ENAL, MG, URIC #### [facility] [address] [address] [address] Rizwan Fernando EGFR-NON AF [place] 50 mL/min/1.73m2 Critically low >=60 [facility] Comment on above: Performed By: #### R ENAL, MG, URIC #### [facility] [address] [address] [address] Rizwan Fernando Glucose [Mass/Vol] 122 mg/dL Critically high 74-106 [facility] Comment on above: Performed By: #### R ENAL, MG, URIC #### [facility] [address] [address] [address] Rizwan Fernando Phosphate [Mass/Vol] 4.6 mg/dL Critically high 2.5-4.5 [facility] Comment on above: Performed By: #### R ENAL, MG, URIC #### [facility] [address] [address] [address] Rizwan Fernando Potassium [Moles/Vol] 4.1 mmol/L Normal 3.4-5.0 [facility] Comment on above: Performed By: #### R ENAL, MG, URIC #### [facility] [address] [address] [address] Rizwan Fernando Sodium [Moles/Vol] 138 mmol/L Normal 137-145 [facility] Comment on above: Performed By: #### R ENAL, MG, URIC #### [facility] [address] [address] [address] Rizwan Fernando Urea nitrogen [Mass/Vol] 27.0 mg/dL Critically high 7.0-18.0 [facility] Comment on above: Performed By: #### R ENAL, MG, URIC #### [facility] [address] [place] [address] Dr. Rizwan Fernando UA RANDOM W/MICROSCOPICon BACTERIA NONE SEEN Normal NONE SEEN [facility] Comment on above: Performed By: #### U AMIC #### [facility] [address] [place] [address] Dr. Rizwan Fernando Bilirubin Ql (U) Negative Normal NEGATIVE [facility] Comment on above: Performed By: #### U AMIC #### [facility] [address] [place] [address] Dr. Rizwan Fernando CAST NONE SEEN Normal NONE SEEN [facility] Comment on above: Performed By: #### U AMIC #### [facility] [address] [place] [address] Dr. Rizwan Fernando Clarity (U) CLEAR Normal CLEAR [facility] Comment on above: Performed By: #### U AMIC #### [facility] [address] [place] [address] Dr. Rizwan Fernando Color (U) LT. YELLOW Normal YELLOW [facility] Comment on above: Performed By: #### U AMIC #### [facility] [address] [place] [address] Dr. Rizwan Fernando Crystals LM Nom (Urine sed) NONE SEEN Normal NONE SEEN [facility] Comment on above: Performed By: #### U AMIC #### [facility] [address] [place] [address] Dr. Rizwan Fernando Epithelial cells LM Ql (Urine sed) RARE Normal NONE SEEN /RARE [facility] Comment on above: Performed By: #### U AMIC #### [facility] [address] [place] [address] Dr. Rizwan Fernando Glucose Ql (U) Negative Normal NEGATIVE [facility] Comment on above: Performed By: #### U AMIC #### [facility] [address] [place] [address] Dr. Rizwan Fernando Hemoglobin Ql (U) Negative Normal NEGATIVE [facility] Comment on above: Performed By: #### U AMIC #### [facility] [address] [address] [address] Riwzan Fernando Ketones Ql (U) Negative Normal NEGATIVE [facility] Comment on above: Performed By: #### U AMIC #### [facility] [address] [address] [address] Rizwan Fernando LEUKOCYTES Negative Normal NEGATIVE [facility] Comment on above: Performed By: #### U AMIC #### [facility] [address] [address] [address] Rizwan Fernando MUCOUS NONE SEEN Normal NONE SEEN [facility] Comment on above: Performed By: #### U AMIC #### [facility] [address] [address] [address] Rizwan Fernando Nitrite Ql (U) Negative Normal NEGATIVE [facility] Comment on above: Performed By: #### U AMIC #### [facility] [address] [address] [address] Rizwan Fernando pH (U) 6.0 [pH] Normal 5-9 [facility] Comment on above: Performed By: #### U AMIC #### [facility] [address] [address] [address] Rizwan Fernando RBC NONE SEEN Abnormal 0-2 [facility] Comment on above: Performed By: #### U AMIC #### [facility] [address] [address] [address] Rizwan Fernando SPEC GRAVITY 1.010 Normal 1.005-<=1.025 [facility] Comment on above: Performed By: #### U AMIC #### [facility] [address] [address] [address] Rizwan Fernando TRICH NONE SEEN Normal NONE SEEN [facility] Comment on above: Performed By: #### U AMIC #### [facility] [address] [place] [address] Dr. Rizwan Fernando UA PROTEIN Negative Normal NEGATIVE/ TRACE [facility] Comment on above: Performed By: #### U AMIC #### [facility] [address] [address] [address] Rizwan Fernando Urobilinogen Qn (U) 0.2 {Wil'U}/dL Normal 0.2 - 1. 0 [facility] Comment on above: Performed By: #### U AMIC #### [facility] [address] [address] [address] Rizwan Fernando WBC NONE SEEN Normal NONE SEEN [facility] Comment on above: Performed By: #### U AMIC #### [facility] [address] [address] [address] Rizwan Fernando YEAST NONE SEEN Normal NONE SEEN [facility] Comment on above: Performed By: #### U AMIC #### [facility] [address] [place] [address] Dr. Rizwan Fernando URIC ACID SERUMon 06-12-2021 Urate [Mass/Vol] 5.5 mg/dL Normal 2.5-6.2 [facility] Comment on above: Performed By: #### R ENAL, MG, URIC #### [facility] [address] [place] [address] Dr. Rizwan Fernando URINE T PROTEIN CREAT RATIOo n 06-12-2021 Protein (U) [Mass/Vol] 17.5 mg/dL Critically high <=12.0 [facility] Comment on above: Performed By: #### R ENAL, MG, URIC #### [facility] [address] [place] [address] Dr. Rizwan Fernando UR PROT CREAT RAT 0.23 Normal [facility] Comment on above: Performed By: #### R ENAL, MG, URIC #### [facility] [address] [place] [address] Dr. Rizwan Fernando URINE CREAT 76.34 mg/dL Normal 20.00-300.00 [facility] Comment on above: Performed By: #### R ENAL, MG, URIC #### [facility] [address] [place] [address] Dr. Rizwan Fernando VITAMIN D 25 OHon 06-12-2021 VIT D 25-OH 41.1 ng/mL Normal [facility] Comment on above: Performed By: #### R ENAL, MG, URIC #### [facility] [address] [address] [address] Rizwan Fernando VIT D RANGES SEE BELOW Normal [facility] Comment on above: Result Comment: <20 ng/mL Vit D deficient 20 - <30 ng/mL Vit D insufficient 30 - 100 ng/mL Vit D sufficient >100 ng/mL Potential Toxicity Performed By: #### R ENAL, MG, URIC #### [facility] [address] [address] [address] Rizwan Fernando A1C HEMOGLOBINon 12-17-2020 HbA1c (Bld) [Mass fraction] 5.8 % Violet Grey Other Glucose - FINGER STICKon Glucose [Mass/Vol] 182 mg/dL Violet Grey Other HbA1c (Bld) [Mass fraction]o n 12-17-2020 A1C HEMOGLOBIN [employer] Other LOWER EXTREMITY JOINT SURVEY on 09-21-2016 [facility] [address] [place] [id number] ========Patient Name: ASHLEY WANG : 1945Sex: FAge: Race: WhiteMRN: [id number]. Location: 84Patient Status: OVisit #: [id number] Date: 09/21/2016 9:05:00 AMCompleted Date: 09/21/2016 09:04 AMRequesting Provider: JACIEL SANTOS Attending Provider: JACIEL SANTOS Report Copy To: Signs & Symptoms: Z96.659 Presence of unspecified artificial knee joint [id number]: AthenaComments: , , , Ordering Miguel A SANTOS MD , Rendering Miguel A SANTOS MD , Exam: LOWER EXTREMITY JOINT SURVEYAccession #: [id number] LOWER EXTREMITY JOINT SURVEY 09/21/2016 9:04 AM EDT SIGNS AND SYMPTOMS: Z96.659 Presence of unspecified artificial knee joint I10 TECHNOLOGIST COMMENTS: ortho follow up nicole knee pain, history of knee replacements 3 yrs ago and 2 yrs ago, QUESTION FOR THE RADIOLOGIST: , , , Ordering Miguel A SANTOS MD , Hung SANTOS MD , PROTOCOL: Multiple segmental images [...] knees. Electronically signed by:Donald Karimi. Transcribed by: [email or web address], User Resident: Electronically Signed by: DONALD KARIMI @ 09/21/2016 11:55 AM Normal [facility] Comment on above: Order Comment: , , = ========= , Ordering Miguel A SANTOS MD , Hung SANTOS MD , Vital Signs Date Time Vital Sign Value Performing Clinician Facility 05-30-2024 14:40-0400 Body mass index (BMI) [Ratio] 36.79 kg/m2 Dana Tapia NP Work Phone: [facility] 05-30-2024 14:40-0400 Body temperature 98.1 [degF] Dana Willie SUPERVISOR REWORK Work Phone: [facility] 05-30-2024 14:40-0400 Body weight 95.71 kg Dana Willie SUPERVISOR [employer]WORK Work Phone: [facility] 05-30-2024 14:40-0400 Diastolic blood pressure 82 mm[Hg] Dana Arianz SUPERVISOR [employer]WORK Work Phone: [facility] 05-30-2024 14:40-0400 Heart rate 66 /min Dana Arianz SUPERVISOR [employer]WORK Work Phone: [facility] 05-30-2024 14:40-0400 Respiratory rate 18 /min Dana Willie SUPERVISOR [employer]WORK Work Phone: [facility] 05-30-2024 14:40-0400 SaO2% (BldA) [Mass fraction] 99 % Dana Willie SUPERVISOR [employer]WORK Work Phone: [facility] 05-30-2024 14:40-0400 Systolic blood pressure 160 mm[Hg] Dana Willie SUPERVISOR [employer]WORK Work Phone: [facility] 05-17-2024 10:45-0400 Body height 160 cm Daniel Wolf MD Work Phone: [facility] 05-17-2024 10:45-0400 Body mass index (BMI) [Ratio] 36.85 kg/m2 Daniel Wolf MD Work Phone: [facility] 05-17-2024 10:45-0400 Body weight 94.35 kg Daniel Wolf MD Work Phone: [facility] 05-07-2024 16:26-0400 Body height 161.3 cm Dana Tapia SUPERVISOR [employer]WORK Work Phone: [facility] 05-07-2024 16:26-0400 Body mass index (BMI) [Ratio] 36.76 kg/m2 Dana Willie SUPERVISOR [employer]WORK Work Phone: [facility] 05-07-2024 16:26-0400 Body temperature 97.81 [degF] Dana Tapia SUPERVISOR [employer]WORK Work Phone: [facility] 05-07-2024 16:26-0400 Body weight 95.62 kg Dana Tapia SUPERVISOR REWORK Work Phone: [facility] 05-07-2024 16:26-0400 Diastolic blood pressure 76 mm[Hg] Dana Tapia SUPERVISOR REWORK Work Phone: [facility] 05-07-2024 16:26-0400 Heart rate 85 /min Dana Tapia SUPERVISOR [employer]WORK Work Phone: [facility] 05-07-2024 16:26-0400 Respiratory rate 18 /min Dana Tapia SUPERVISOR [employer]WORK Work Phone: [facility] 05-07-2024 16:26-0400 SaO2% (BldA) [Mass fraction] 98 % Dana Tapia SUPERVISOR REWORK Work Phone: [facility] 05-07-2024 16:26-0400 Systolic blood pressure 128 mm[Hg] Dana Tapia SUPERVISOR REWORK Work Phone: [facility] 04-19-2024 09:22-0500 Body height 160 cm Daniel Wolf MD Work Phone: [facility] 04-19-2024 09:22-0500 Body mass index (BMI) [Ratio] 36.85 kg/m2 Daniel Wolf MD Work Phone: [facility] 04-19-2024 09:22-0500 Body weight 94.35 kg Daniel Wolf MD Work Phone: [facility] 04-17-2024 14:03-0500 Body height 161.3 cm Carlos Baer DPM Work Phone: [facility] 04-17-2024 14:03-0500 Body mass index (BMI) [Ratio] 36.27 kg/m2 Carlos Baer DPM Work Phone: [facility] 04-17-2024 14:03-0500 Body weight 94.35 kg Carlos Baer DPM Work Phone: [facility] 03-21-2024 13:45-0500 Body height 161 cm Bph 1 [facility] 03-21-2024 13:45-0500 Body mass index (BMI) [Ratio] 36.46 kg/m2 Bph 1 [facility] 03-21-2024 13:45-0500 Body temperature 97.9 [degF] Bph 1 [facility] 03-21-2024 13:45-0500 Body weight 94.5 kg Bph 1 [facility] 03-21-2024 13:45-0500 Diastolic blood pressure 74 mm[Hg] Bph 1 [facility] 03-21-2024 13:45-0500 Heart rate 101 /min Bph 1 [facility] 03-21-2024 13:45-0500 Respiratory rate 20 /min Bph 1 [facility] 03-21-2024 13:45-0500 SaO2% (BldA) [Mass fraction] 98 % Bph 1 [facility] 03-21-2024 13:45-0500 Systolic blood pressure 156 mm[Hg] Bph 1 [facility] 03-19-2024 14:38-0500 Body mass index (BMI) [Ratio] 36.34 kg/m2 Dana Tapia SUPERVISOR REWORK Work Phone: [facility] 03-19-2024 14:38-0500 Body temperature 98.49 [degF] Dana Tapia SUPERVISOR REWORK Work Phone: [facility] 03-19-2024 14:38-0500 Body weight 94.53 kg Dana Tapia SUPERVISOR REWORK Work Phone: [facility] 03-19-2024 14:38-0500 Diastolic blood pressure 80 mm[Hg] Dana Tapia SUPERVISOR [employer]WORK Work Phone: [facility] 03-19-2024 14:38-0500 Heart rate 90 /min Dana Willie SUPERVISOR [employer]WORK Work Phone: [facility] 03-19-2024 14:38-0500 Respiratory rate 18 /min Dana Garciapatricia SUPERVISOR REWORK Work Phone: [facility] 03-19-2024 14:38-0500 SaO2% (BldA) [Mass fraction] 99 % Dana Garciapatricia SUPERVISOR REWORK Work Phone: [facility] 03-19-2024 14:38-0500 Systolic blood pressure 140 mm[Hg] Dana Willie SUPERVISOR REWORK Work Phone: [facility] 03-06-2024 14:43-0500 Diastolic blood pressure 76 mm[Hg] Lex Martinez MD Work Phone: [facility] 03-06-2024 14:43-0500 Systolic blood pressure 154 mm[Hg] Lex Martinez MD Work Phone: [facility] 03-06-2024 14:22-0500 Body height 162.56 cm Lex Martinez MD Work Phone: [facility] 03-06-2024 14:22-0500 Body mass index (BMI) [Ratio] 35.2 kg/m2 Lex Martinez MD Work Phone: [facility] 03-06-2024 14:22-0500 Body weight 93.04 kg Lex Martinez MD Work Phone: [facility] 03-06-2024 14:22-0500 Heart rate 86 /min Lex Martinez MD Work Phone: [facility] 03-06-2024 14:22-0500 Respiratory rate 16 /min Lex Martinez MD Work Phone: [facility] 03-06-2024 14:22-0500 SaO2% (BldA) [Mass fraction] 93 % Lex Martinez MD Work Phone: [facility] 03-05-2024 14:02-0500 Body height 161.3 cm Dana Tapia SUPERVISOR REWORK Work Phone: [facility] 03-05-2024 14:02-0500 Body mass index (BMI) [Ratio] 35.71 kg/m2 Dana Donz SUPERVISOR REWORK Work Phone: [facility] 03-05-2024 14:02-0500 Body temperature 98.49 [degF] Dana Tapia SUPERVISOR REWORK Work Phone: [facility] 03-05-2024 14:02-0500 Body weight 92.9 kg Dana Donz SUPERVISOR REWORK Work Phone: [facility] 03-05-2024 14:02-0500 Diastolic blood pressure 84 mm[Hg] Dana Donz SUPERVISOR REWORK Work Phone: [facility] 03-05-2024 14:02-0500 Heart rate 91 /min Dana Donz SUPERVISOR REWORK Work Phone: [facility] 03-05-2024 14:02-0500 Respiratory rate 18 /min Dana Donz SUPERVISOR REWORK Work Phone: [facility] 03-05-2024 14:02-0500 SaO2% (BldA) [Mass fraction] 94 % Dana Tapia SUPERVISOR REWORK Work Phone: [facility] 03-05-2024 14:02-0500 Systolic blood pressure 130 mm[Hg] Dana Tapia SUPERVISOR REWORK Work Phone: [facility] 02-27-2024 18:42-0500 Body height 161.3 cm Dana Donz SUPERVISOR REWORK Work Phone: [facility] 02-27-2024 18:42-0500 Body mass index (BMI) [Ratio] 35.22 kg/m2 Dana Donz SUPERVISOR REWORK Work Phone: [facility] 02-27-2024 18:42-0500 Body temperature 97.81 [degF] Dana Donz SUPERVISOR REWORK Work Phone: [facility] 02-27-2024 18:42-0500 Body weight 91.63 kg Dana Aichholz SUPERVISOR REWORK Work Phone: [facility] 02-27-2024 18:42-0500 Diastolic blood pressure 80 mm[Hg] Dana Aichholz SUPERVISOR REWORK Work Phone: [facility] 02-27-2024 18:42-0500 Heart rate 69 /min Dana Aichholz SUPERVISOR REWORK Work Phone: [facility] 02-27-2024 18:42-0500 Respiratory rate 18 /min Dana Aichholz SUPERVISOR REWORK Work Phone: [facility] 02-27-2024 18:42-0500 SaO2% (BldA) [Mass fraction] 93 % Dana Aichholz SUPERVISOR REWORK Work Phone: [facility] 02-27-2024 18:42-0500 Systolic blood pressure 144 mm[Hg] Dana Aichholz SUPERVISOR REWORK Work Phone: [facility] 02-06-2024 16:02-0500 Body mass index (BMI) [Ratio] 35.36 kg/m2 Dana Aichholz SUPERVISOR REWORK Work Phone: [facility] 02-06-2024 16:02-0500 Body temperature 98.8 [degF] Dana Aichholz SUPERVISOR REWORK Work Phone: [facility] 02-06-2024 16:02-0500 Body weight 91.99 kg Dana Aichholz SUPERVISOR REWORK Work Phone: [facility] 02-06-2024 16:02-0500 Diastolic blood pressure 78 mm[Hg] Dana Aichholz SUPERVISOR REWORK Work Phone: [facility] 02-06-2024 16:02-0500 Heart rate 85 /min Dana Aichholz SUPERVISOR REWORK Work Phone: [facility] 02-06-2024 16:02-0500 Respiratory rate 19 /min Dana Aichholz SUPERVISOR REWORK Work Phone: [facility] 02-06-2024 16:02-0500 SaO2% (BldA) [Mass fraction] 98 % Dana Knoxvitaly SUPERVISOR REWORK Work Phone: [facility] 02-06-2024 16:02-0500 Systolic blood pressure 138 mm[Hg] Dana Willie SUPERVISOR REWORK Work Phone: [facility] 01-16-2024 14:14-0500 Body height 161.3 cm Carlos Baer DPM Work Phone: [facility] 01-16-2024 14:14-0500 Body mass index (BMI) [Ratio] 35.22 kg/m2 Carlos Baer DPM Work Phone: [facility] 01-16-2024 14:14-0500 Body weight 91.63 kg Carlos Baer DPM Work Phone: [facility] 01-11-2024 14:20-0500 Body height 161.3 cm Dana Knoxvitaly SUPERVISOR REWORK Work Phone: [facility] 01-11-2024 14:20-0500 Body mass index (BMI) [Ratio] 35.33 kg/m2 Dana Knoxvitaly SUPERVISOR REWORK Work Phone: [facility] 01-11-2024 14:20-0500 Body temperature 98.49 [degF] Dana Willie SUPERVISOR REWORK Work Phone: [facility] 01-11-2024 14:20-0500 Body weight 91.9 kg Dana Willie SUPERVISOR REWORK Work Phone: [facility] 01-11-2024 14:20-0500 Diastolic blood pressure 86 mm[Hg] Dana Willie SUPERVISOR REWORK Work Phone: [facility] 01-11-2024 14:20-0500 Heart rate 72 /min Dana Willie SUPERVISOR REWORK Work Phone: [facility] 01-11-2024 14:20-0500 Respiratory rate 18 /min Dana Willie SUPERVISOR REWORK Work Phone: [facility] 01-11-2024 14:20-0500 SaO2% (BldA) [Mass fraction] 99 % Dana Tapia SUPERVISOR REWORK Work Phone: [facility] 01-11-2024 14:20-0500 Systolic blood pressure 118 mm[Hg] Dana Willie SUPERVISOR REWORK Work Phone: [facility] 12-12-2023 09:47-0400 Body height 162.56 cm [facility] 12-12-2023 09:47-0400 Body mass index (BMI) [Ratio] 34.7 kg/m2 [facility] 12-12-2023 09:47-0400 Body temperature 96.7 [degF] [facility] 12-12-2023 09:47-0400 Body weight 91.85 kg [facility] 12-12-2023 09:47-0400 Diastolic blood pressure 84 mm[Hg] [facility] 12-12-2023 09:47-0400 Heart rate 76 /min [facility] 12-12-2023 09:47-0400 Respiratory rate 16 /min [facility] 12-12-2023 09:47-0400 SaO2% (BldA) [Mass fraction] 97 % [facility] 12-12-2023 09:47-0400 Systolic blood pressure 146 mm[Hg] [facility] 11-28-2023 13:50-0400 Body height 161.3 cm Dana Tapia SUPERVISOR REWORK Work Phone: [facility] 11-28-2023 13:50-0400 Body mass index (BMI) [Ratio] 35.4 kg/m2 Dana Tapia SUPERVISOR REWORK Work Phone: [facility] 11-28-2023 13:50-0400 Body temperature 98.49 [degF] Dana Tapia SUPERVISOR REWORK Work Phone: [facility] 11-28-2023 13:50-0400 Body weight 92.08 kg Dana Tapia SUPERVISOR REWORK Work Phone: [facility] 11-28-2023 13:50-0400 Diastolic blood pressure 74 mm[Hg] Dana Tapia SUPERVISOR REWORK Work Phone: [facility] 11-28-2023 13:50-0400 Heart rate 63 /min Dana Tapia SUPERVISOR REWORK Work Phone: [facility] 11-28-2023 13:50-0400 Respiratory rate 19 /min Dana Tapia SUPERVISOR REWORK Work Phone: [facility] 11-28-2023 13:50-0400 SaO2% (BldA) [Mass fraction] 96 % Dana Tapia SUPERVISOR REWORK Work Phone: [facility] 11-28-2023 13:50-0400 Systolic blood pressure 122 mm[Hg] Dana Tapia SUPERVISOR REWORK Work Phone: [facility] 10-04-2023 13:52-0400 Body height 162.56 cm [facility] 10-04-2023 13:52-0400 Body mass index (BMI) [Ratio] 34.5 kg/m2 [facility] 10-04-2023 13:52-0400 Body weight 91.31 kg [facility] 10-04-2023 13:52-0400 Diastolic blood pressure 72 mm[Hg] [facility] 10-04-2023 13:52-0400 Heart rate 72 /min [facility] 10-04-2023 13:52-0400 Respiratory rate 18 /min [facility] 10-04-2023 13:52-0400 SaO2% (BldA) [Mass fraction] 95 % [facility] 10-04-2023 13:52-0400 Systolic blood pressure 126 mm[Hg] [facility] 06-13-2023 14:04-0400 Body height 162.56 cm PHYSICIAN [facility] 06-13-2023 14:04-0400 Body mass index (BMI) [Ratio] 34.9 kg/m2 PHYSICIAN [facility] 06-13-2023 14:04-0400 Body temperature 97.2 [degF] PHYSICIAN NO [facility] 06-13-2023 14:04-0400 Body weight 92.16 kg PHYSICIAN NO [facility] 06-13-2023 14:04-0400 Diastolic blood pressure 77 mm[Hg] PHYSICIAN NO [facility] 06-13-2023 14:04-0400 Heart rate 89 /min PHYSICIAN NO [facility] 06-13-2023 14:04-0400 Respiratory rate 16 /min PHYSICIAN NO [facility] 06-13-2023 14:04-0400 SaO2% (BldA) [Mass fraction] 99 % PHYSICIAN NO [facility] 06-13-2023 14:04-0400 Systolic blood pressure 128 mm[Hg] PHYSICIAN NO [facility] 04-13-2023 14:11-0500 Body height 161.3 cm Carlos Baer DPM Work Phone: [facility] 04-13-2023 14:11-0500 Body mass index (BMI) [Ratio] 35.57 kg/m2 Carlos Baer DPM Work Phone: [facility] 04-13-2023 14:11-0500 Body weight 92.53 kg Carlos Baer DPM Work Phone: [facility] 03-31-2023 14:15-0500 Body height 162.56 cm PHYSICIAN NO [facility] 03-31-2023 14:15-0500 Body weight 93.53 kg PHYSICIAN NO [facility] 03-31-2023 14:15-0500 Diastolic blood pressure 70 mm[Hg] PHYSICIAN NO [facility] 03-31-2023 14:15-0500 Systolic blood pressure 120 mm[Hg] PHYSICIAN NO [facility] 12-14-2022 14:40-0400 Body height 162.56 cm Eboni Buck Other [facility] Other 12-14-2022 14:40-0400 Body mass index (BMI) [Ratio] 37.62 kg/m2 Eboni Buck Other [facility] Other 12-14-2022 14:40-0400 Body temperature 96.3 [degF] Eboni Buck Other [facility] Other 12-14-2022 14:40-0400 Body weight 99.43 kg Eboni Buck Other [facility] Other 12-14-2022 14:40-0400 Diastolic blood pressure 80 mm[Hg] Eboni Buck Other [facility] Other 12-14-2022 14:40-0400 Respiratory rate 18 /min Eboni Buck Other [facility] Other 12-14-2022 14:40-0400 SaO2% (BldA) [Mass fraction] 98 % Eboni Buck Other [facility] Other 12-14-2022 14:40-0400 Systolic blood pressure 120 mm[Hg] Eboni Buck Other [facility] Other 09-29-2022 14:45-0400 Body height 162.56 cm Tondra Mapus Other [facility] Other 09-29-2022 14:45-0400 Body mass index (BMI) [Ratio] 37.38 kg/m2 Tondra Mapus Other [facility] Other 09-29-2022 14:45-0400 Body weight 98.79 kg Tondra Mapus Other [facility] Other 09-29-2022 14:45-0400 Diastolic blood pressure 85 mm[Hg] Tondra Mapus Other [facility] Other 09-29-2022 14:45-0400 Respiratory rate 18 /min Tondra Mapus Other [facility] Other 09-29-2022 14:45-0400 SaO2% (BldA) [Mass fraction] 99 % Tondra Mapus Other [facility] Other 09-29-2022 14:45-0400 Systolic blood pressure 149 mm[Hg] Tondra Mapus Other [facility] Other 06-08-2022 15:00-0400 Body height 162.56 cm Eboni Buck Other [facility] Other 06-08-2022 15:00-0400 Body mass index (BMI) [Ratio] 37.83 kg/m2 Eboni Buck Other [facility] Other 06-08-2022 15:00-0400 Body weight 99.97 kg Eboni Buck Other [facility] Other 06-08-2022 15:00-0400 Diastolic blood pressure 78 mm[Hg] Eboni Buck Other [facility] Other 06-08-2022 15:00-0400 Respiratory rate 18 /min Eboni Buck Other [facility] Other 06-08-2022 15:00-0400 SaO2% (BldA) [Mass fraction] 97 % Eboni Buck Other [facility] Other 06-08-2022 15:00-0400 Systolic blood pressure 136 mm[Hg] Eboni Buck Other [facility] Other 03-31-2022 16:45-0500 Body height 162.56 cm Tondra Mapus Other [facility] Other 03-31-2022 16:45-0500 Body mass index (BMI) [Ratio] 37.96 kg/m2 Tondra Mapus Other [facility] Other 03-31-2022 16:45-0500 Body weight 100.34 kg Tondra Mapus Other [facility] Other 03-31-2022 16:45-0500 Diastolic blood pressure 83 mm[Hg] Tondra Mapus Other [facility] Other 03-31-2022 16:45-0500 Respiratory rate 18 /min Tondra Mapus Other [facility] Other 03-31-2022 16:45-0500 SaO2% (BldA) [Mass fraction] 97 % Tondra Mapus Other [facility] Other 03-31-2022 16:45-0500 Systolic blood pressure 151 mm[Hg] Tondra Mapus Other [facility] Other 12-21-2021 15:00-0400 Body height 162.56 cm Tondra Mapus Other [facility] Other 12-21-2021 15:00-0400 Body mass index (BMI) [Ratio] 37.76 kg/m2 Tondra Mapus Other [facility] Other 12-21-2021 15:00-0400 Body weight 99.79 kg Tondra Mapus Other [facility] Other 12-21-2021 15:00-0400 Diastolic blood pressure 81 mm[Hg] Tondra Mapus Other [facility] Other 12-21-2021 15:00-0400 Respiratory rate 20 /min Tondra Mapus Other [facility] Other 12-21-2021 15:00-0400 SaO2% (BldA) [Mass fraction] 99 % Tondra Mapus Other [facility] Other 12-21-2021 15:00-0400 Systolic blood pressure 141 mm[Hg] Tondra Mapus Other [facility] Other 12-14-2021 15:20-0400 Body height 162.56 cm Eboni Buck Other [facility] Other 12-14-2021 15:20-0400 Body mass index (BMI) [Ratio] 37.66 kg/m2 Eboni Buck Other [facility] Other 12-14-2021 15:20-0400 Body temperature 96.7 [degF] Eboni Buck Other [facility] Other 12-14-2021 15:20-0400 Body weight 99.52 kg Eboni Buck Other [facility] Other 12-14-2021 15:20-0400 Diastolic blood pressure 87 mm[Hg] Eboni Buck Other [facility] Other 12-14-2021 15:20-0400 Respiratory rate 18 /min Eboni Buck Other [facility] Other 12-14-2021 15:20-0400 SaO2% (BldA) [Mass fraction] 96 % Eboni Buck Other [facility] Other 12-14-2021 15:20-0400 Systolic blood pressure 153 mm[Hg] Eboni Buck Other [facility] Other 09-23-2021 10:55-0400 Body height 162.56 cm Kristin Cardoso Other [facility] Other 09-23-2021 10:55-0400 Body mass index (BMI) [Ratio] 37.24 kg/m2 Kristin Aminmond Other [facility] Other 09-23-2021 10:55-0400 Body temperature 99.2 [degF] Kristin Cardoso Other [facility] Other 09-23-2021 10:55-0400 Body weight 98.43 kg Kristin Aminmond Other [facility] Other 09-23-2021 10:55-0400 Diastolic blood pressure 74 mm[Hg] Kristin Janae Other [facility] Other 09-23-2021 10:55-0400 Respiratory rate 18 /min Kristin Aminmond Other [facility] Other 09-23-2021 10:55-0400 SaO2% (BldA) [Mass fraction] 98 % Kristin Cardoso Other [facility] Other 09-23-2021 10:55-0400 Systolic blood pressure 129 mm[Hg] Kristin Cardoso Other [facility] Other 06-23-2021 15:30-0400 Body height 162.56 cm Tondra Mapus Other [facility] Other 06-23-2021 15:30-0400 Body mass index (BMI) [Ratio] 37.59 kg/m2 Tondra Mapus Other [facility] Other 06-23-2021 15:30-0400 Body weight 99.34 kg Tondra Mapus Other [facility] Other 06-23-2021 15:30-0400 Diastolic blood pressure 76 mm[Hg] Tondra Mapus Other [facility] Other 06-23-2021 15:30-0400 Respiratory rate 16 /min Tondra Mapus Other [facility] Other 06-23-2021 15:30-0400 SaO2% (BldA) [Mass fraction] 99 % Tondra Mapus Other [facility] Other 06-23-2021 15:30-0400 Systolic blood pressure 121 mm[Hg] Tondra Mapus Other [facility] Other 06-17-2021 15:00-0400 Body height 162.56 cm Eboni Buck Other [facility] Other 06-17-2021 15:00-0400 Body mass index (BMI) [Ratio] 37.59 kg/m2 Eboni Buck Other [facility] Other 06-17-2021 15:00-0400 Body temperature 97.2 [degF] Eboni Bukc Other [facility] Other 06-17-2021 15:00-0400 Body weight 99.34 kg Eboni Buck Other [facility] Other 06-17-2021 15:00-0400 Diastolic blood pressure 81 mm[Hg] Eboni Buck Other [facility] Other 06-17-2021 15:00-0400 Respiratory rate 18 /min Eboni Buck Other [facility] Other 06-17-2021 15:00-0400 SaO2% (BldA) [Mass fraction] 95 % Eboni Buck Other [facility] Other 06-17-2021 15:00-0400 Systolic blood pressure 137 mm[Hg] Eboni Buck Other [facility] Other 12-23-2020 14:40-0400 Body height 162.56 cm Eboni Buck Other [facility] Other 12-23-2020 14:40-0400 Body mass index (BMI) [Ratio] 38.21 kg/m2 Eboni Buck Other [facility] Other 12-23-2020 14:40-0400 Body temperature 97.3 [degF] Eboni Buck Other [facility] Other 12-23-2020 14:40-0400 Body weight 100.97 kg Eboni Buck Other [facility] Other 12-23-2020 14:40-0400 Diastolic blood pressure 83 mm[Hg] Eboni Buck Other [facility] Other 12-23-2020 14:40-0400 Respiratory rate 18 /min Eboni Buck Other [facility] Other 12-23-2020 14:40-0400 SaO2% (BldA) [Mass fraction] 93 % Eboni Buck Other [facility] Other 12-23-2020 14:40-0400 Systolic blood pressure 127 mm[Hg] Eboni Buck Other [facility] Other 12-17-2020 15:15-0400 Body height 162.56 cm Tondra Mapus Other [facility] Other 12-17-2020 15:15-0400 Body mass index (BMI) [Ratio] 37.76 kg/m2 Tondra Mapus Other [facility] Other 12-17-2020 15:15-0400 Body weight 99.79 kg Tondra Mapus Other [facility] Other 12-17-2020 15:15-0400 Diastolic blood pressure 80 mm[Hg] Tondra Mapus Other [facility] Other 12-17-2020 15:15-0400 Respiratory rate 20 /min Tondra Mapus Other [facility] Other 12-17-2020 15:15-0400 SaO2% (BldA) [Mass fraction] 97 % Tondra Mapus Other [facility] Other 12-17-2020 15:15-0400 Systolic blood pressure 133 mm[Hg] Tondra Mapus Other [facility] Other Encounters Encounter Date Encounter Type Care Provider Facility Start: 05-31-2024 End: 05-31-2024 ambulatory Jesenia Jorge HEALTH CARE COORDINATOR Work Phone: [facility] Comment on above: Acute pain of right shoulder (Primary Dx); Status post reverse total arthroplasty of right shoulder; Shoulder stiffness, right Start: 05-30-2024 End: 05-30-2024 Office outpatient visit 15 minutes Dana Tapia SUPERVISOR REWORK Work Phone: [facility] Comment on above: Back pain of lumbar region with sciatica (Primary Dx); Class 2 severe obesity due to excess calories with serious comorbidity and body mass index (BMI) of 36.0 to 36.9 in adult ([facility]); Essential (primary) hypertension ([facility]); Gastro-esophageal reflux disease without esophagitis; Esophageal reflux Start: 05-30-2024 End: 05-30-2024 ambulatory DANA TAPIA Not Available Start: 05-30-2024 End: 05-30-2024 Bamboo flowsheet Dana Tapia SUPERVISOR REWORK Work Phone: [facility] Start: 05-30-2024 End: 05-30-2024 Bamboo flowsheet Dana Tapia SUPERVISOR REWORK Work Phone: [facility] Start: 05-29-2024 End: 05-29-2024 Bamboo flowsheet Jesenia Jorge HEALTH CARE COORDINATOR Work Phone: [facility] Start: 05-29-2024 End: 05-29-2024 Bamboo flowsheet Jesenia Jorge HEALTH CARE COORDINATOR Work Phone: [facility] Start: 05-29-2024 End: 05-29-2024 ambulatory Jesenia Jorge HEALTH CARE COORDINATOR Work Phone: [facility] Comment on above: Acute pain of right shoulder (Primary Dx); Status post reverse total arthroplasty of right shoulder; Shoulder stiffness, right Start: 05-27-2024 End: 05-27-2024 Refill Dana Willie SUPERVISOR REWORK Work Phone: [facility] Comment on above: Type 2 diabetes ana maría itus with diabetic neuropathy, unspecified ([facility]) Start: 05-24-2024 End: 05-24-2024 Bamboo flowsheet Mely Grossman HEALTH CARE COORDINATOR [facility] Start: 05-24-2024 End: 05-24-2024 Bamboo flowsheet Mely Grossman HEALTH CARE COORDINATOR [facility] Start: 05-24-2024 End: 05-24-2024 ambulatory Mely Grossman HEALTH CARE COORDINATOR [facility] Comment on above: Acute pain of right shoulder (Primary Dx); Status post reverse total arthroplasty of right shoulder Start: 05-22-2024 End: 05-22-2024 ambulatory JESENIA JORGE Not Available Start: 05-17-2024 End: 05-17-2024 ambulatory Mely Grossman HEALTH CARE COORDINATOR [facility] Comment on above: Acute pain of right shoulder (Primary Dx); Status post reverse total arthroplasty of right shoulder; Shoulder stiffness, right Start: 05-17-2024 End: 05-17-2024 [facility] Start: 05-17-2024 End: 05-17-2024 Postop follow up visit related to original px Daniel Wolf MD Work Phone: [facility] Comment on above: S/P reverse total sh oulder arthroplasty, right (Primary Dx) Start: 05-10-2024 End: 05-10-2024 Bamboo flowsheet Jesenia Jorge HEALTH CARE COORDINATOR Work Phone: [facility] Start: 05-10-2024 End: 05-10-2024 Bamboo flowsheet Jesenia Jorge HEALTH CARE COORDINATOR Work Phone: [facility] Start: 05-10-2024 End: 05-10-2024 ambulatory Jesenia Jorge HEALTH CARE COORDINATOR Work Phone: [facility] Comment on above: Acute pain of right shoulder (Primary Dx); Status post reverse total arthroplasty of right shoulder; Shoulder stiffness, right Start: 05-08-2024 End: 05-08-2024 ambulatory Leo Goodwin PT Work Phone: [facility] Comment on above: Acute pain of right shoulder (Primary Dx); Status post reverse total arthroplasty of right shoulder; Shoulder stiffness, right Start: 05-07-2024 End: 05-07-2024 Patient encounter procedure Dana Tapia NP Work Phone: [facility] Comment on above: Encounter for subs [facility] annual wellness visit (AWV) in Medicare patient (Primary Dx); Type 2 diabetes mellitus with diabetic neuropathy, without long-term current use of insulin ([facility]); Essential (primary) hypertension (CMS/HCC); Hypertensive chronic kidney disease with stage 1 through stage 4 chronic kidney disease, or unspecified chronic kidney disease (CMS/HCC); Gastroesophageal reflux disease without esophagitis; Age-related osteoporosis without current pathological fracture (CMS/HCC); Fibromyalgia; Class 2 severe obesity due to excess calories with serious comorbidity and body mass index (BMI) of 36.0 to 36.9 in adult (CMS/HCC); Type 2 diabetes mellitus without complication, without long-term current use of insulin (CMS/HCC); Mixed hyperlipidemia (CMS/HCC) Start: 05-07-2024 End: 05-07-2024 ambulatory DANA TAPIA Not Available Start: 05-07-2024 End: 05-07-2024 Bamboo flowsheet Dana Tapia SUPERVISOR REWORK Work Phone: [facility] Start: 05-07-2024 End: 05-07-2024 Bamboo flowsheet Dana Tapia SUPERVISOR REWORK Work Phone: [facility] Start: 05-03-2024 End: 05-03-2024 Bamboo flowsgladys Jorge HEALTH CARE COORDINATOR Work Phone: [facility] Start: 05-03-2024 End: 05-03-2024 Bamboo flowsheet Jesenia Jorge HEALTH CARE COORDINATOR Work Phone: [facility] Start: 05-03-2024 End: 05-03-2024 ambulatory Jesenia Jorge HEALTH CARE COORDINATOR Work Phone: [facility] Comment on above: Acute pain of right shoulder (Primary Dx); Status post reverse total arthroplasty of right shoulder; Shoulder stiffness, right Start: 05-01-2024 End: 05-01-2024 Bamboo flavio Jorge HEALTH CARE COORDINATOR Work Phone: [facility] Start: 05-01-2024 End: 05-01-2024 Bamboo flavio Jorge HEALTH CARE COORDINATOR Work Phone: [facility] Start: 05-01-2024 End: 05-01-2024 ambulatory Jesenia Jorge HEALTH CARE COORDINATOR Work Phone: [facility] Comment on above: Acute pain of right shoulder (Primary Dx); Status post reverse total arthroplasty of right shoulder; Shoulder stiffness, right Start: 04-26-2024 End: 04-26-2024 ambulatory Mely Grossman HEALTH CARE COORDINATOR [facility] Comment on above: Acute pain of right shoulder (Primary Dx); Status post reverse total arthroplasty of right shoulder Start: 04-23-2024 End: 04-23-2024 Bamboo flowsheet Leo Binghamgs PT Work Phone: [facility] Start: 04-23-2024 End: 04-23-2024 Bamboo flowsheet Leo J Buddy PT Work Phone: [facility] Start: 04-23-2024 End: 04-23-2024 ambulatory Leo Mcintyre Buddy PT Work Phone: [facility] Comment on above: Acute pain of right shoulder (Primary Dx); Status post reverse total arthroplasty of right shoulder Start: 04-19-2024 End: 04-19-2024 Postop follow up visit related to original px Daniel Wolf MD Work Phone: [facility] Comment on above: S/P reverse total sh oulder arthroplasty, right (Primary Dx) Start: 04-19-2024 End: 04-19-2024 ambulatory DANIEL P [facility] Start: 04-18-2024 End: 04-18-2024 Orders Only Michell Woodruff MA [facility] Comment on above: S/P reverse total sh oulder arthroplasty, right (Primary Dx) Start: 04-17-2024 End: 04-17-2024 Patient encounter procedure Carlos Baer DPM Work Phone: [facility] Comment on above: Dermatophytosis of n ail (Primary Dx); Dystrophic nail; Pain around toenail, right foot; Pain around toenail, left foot Start: 04-17-2024 End: 04-17-2024 Bamboo flowsheet Carlos Baer DPM Work Phone: [facility] Start: 04-17-2024 End: 04-17-2024 Bamboo flowsheet Carlos Baer DPM Work Phone: [facility] Start: 04-17-2024 End: 04-17-2024 ambulatory CARLOS BAER Not Available Start: 04-04-2024 End: 04-04-2024 Evaluation and management of inpatient [facility] Start: 04-02-2024 End: 04-02-2024 Refill Dana Tapia NP Work Phone: [facility] Comment on above: Fibromyalgia; 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 elsewhere (CMS/HCC); ODALYS (generalized anxiety disorder) ([facility]) Start: 03-21-2024 End: 03-21-2024 Patient encounter procedure Bph Pre-Admission Testing 1 [facility] -Pre Admission Testing Comment on above: Preop testing (Prima ry Dx); Liver disease Start: 03-21-2024 End: 03-21-2024 Patient encounter status [facility] 1 [facility] Start: 03-21-2024 ambulatory [facility] Start: 03-21-2024 Encounter for other preprocedural examination [facility] Start: 03-19-2024 End: 03-19-2024 Office outpatient visit 25 minutes Dana Tapia SUPERVISOR REWORK Work Phone: [facility] Comment on above: Pre-operative cleara nce (Primary Dx); Class 2 severe obesity due to excess calories with serious comorbidity and body mass index (BMI) of 36.0 to 36.9 in adult (CMS/HCC); Body mass index (BMI) 35.0-35.9, adult; Closed head injury, sequela; Hematoma of frontal scalp, sequela; Age-related osteoporosis without current pathological fracture (CMS/HCC); Essential (primary) hypertension (CMS/HCC); Gastroesophageal reflux disease without esophagitis; Type 2 diabetes mellitus without complication, without long-term current use of insulin (CMS/HCC); Blurry vision, left eye Start: 03-19-2024 End: 03-19-2024 ambulatory DANA WILLIE Not Available Start: 03-19-2024 End: 03-19-2024 Bamboo flowsheet Dana Willie SUPERVISOR REWORK Work Phone: [facility] Start: 03-19-2024 End: 03-19-2024 Bamboo flowsheet Dana Willie SUPERVISOR REWORK Work Phone: [facility] Start: 03-19-2024 End: 03-19-2024 Preoperative state Dana Tapia SUPERVISOR REWORK Work Phone: [facility] Start: 03-13-2024 End: 03-13-2024 Refill Dana Willie SUPERVISOR REWORK Work Phone: [facility] Comment on above: Mixed hyperlipidemia (CMS/HCC) Start: 03-06-2024 End: 03-06-2024 ambulatory Lex Martinez MD Work Phone: [facility] Work Phone: Start: 03-06-2024 End: 03-06-2024 Patient encounter procedure Lex Martinez MD Work Phone: [facility] Work Phone: Start: 03-05-2024 End: 03-05-2024 Bamboo flowsheet Dana Tapia SUPERVISOR REWORK Work Phone: [facility] Start: 03-05-2024 End: 03-05-2024 Bamboo flowsheet Dana Tapia SUPERVISOR REWORK Work Phone: [facility] Start: 03-05-2024 End: 03-05-2024 Office outpatient visit 15 minutes Dana Tapia SUPERVISOR REWORK Work Phone: [facility] Comment on above: Hematoma of frontal scalp, sequela (Primary Dx); Morbid (severe) obesity due to excess calories (CMS/HCC); Essential (primary) hypertension (CMS/HCC); Body mass index (BMI) 35.0-35.9, adult; Type 2 diabetes mellitus with diabetic neuropathy, unspecified (CMS/HCC); Malignant neoplasm of unspecified ovary (CMS/HCC); Type 2 diabetes mellitus with diabetic cataract (CMS/HCC); Type 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 (CMS/HCC); Chronic kidney disease, stage 3a (HCC) (CMS/HCC); Hypertensive chronic kidney disease with stage 1 through stage 4 chronic kidney disease, or unspecified chronic kidney disease (CMS/HCC); Class 2 severe obesity due to excess calories with serious comorbidity and body mass index (BMI) of 36.0 to 36.9 in adult (CMS/HCC); Closed head injury, sequela; Blurry vision, left eye Start: 03-05-2024 End: 03-05-2024 ambulatory DANA WILLIE Not Available Start: 02-27-2024 End: 02-27-2024 Office outpatient visit 25 minutes Dana Tapia SUPERVISOR REWORK Work Phone: [facility] Comment on above: Hematoma of frontal scalp, subsequent encounter (Primary Dx); Closed head injury, subsequent encounter; Class 2 severe obesity due to excess calories with serious comorbidity and body mass index (BMI) of 36.0 to 36.9 in adult (CMS/HCC); Essential (primary) hypertension (CMS/HCC) Start: 02-27-2024 End: 02-27-2024 ambulatory DANA TAPIA Not Available Start: 02-27-2024 End: 02-27-2024 Bamboo flowsheet Dana Tapia SUPERVISOR REWORK Work Phone: [facility] Start: 02-27-2024 End: 02-27-2024 Bamboo flowsheet Dana Tapia SUPERVISOR REWORK Work Phone: [facility] Start: 02-20-2024 End: 02-20-2024 Emergency department patient visit DANA TAPIA [facility] Start: 02-20-2024 End: 02-21-2024 Refill Dana Tapia SUPERVISOR REWORK Work Phone: [facility] Comment on above: Fibromyalgia; 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 elsewhere ([facility]); ODALYS (generalized anxiety disorder) ([facility]) Start: 02-10-2024 End: 02-10-2024 Patient encounter procedure Lex Martinez MD Work Phone: [facility] [place] Work Phone: Start: 02-10-2024 End: 02-10-2024 ambulatory Jhon Perea Facility:[facility] Start: 02-06-2024 End: 02-06-2024 Office outpatient visit 15 minutes Dana Tapia SUPERVISOR REWORK Work Phone: [facility] Comment on above: Class 2 severe obesi ty due to excess calories with serious comorbidity and body mass index (BMI) of 36.0 to 36.9 in adult ([facility]) (Primary Dx); Essential (primary) hypertension ([facility]); Acute non-recurrent pansinusitis; Encounter for screening mammogram for malignant neoplasm of breast Start: 02-06-2024 End: 02-06-2024 ambulatory DANA TAPIA Not Available Start: 02-06-2024 End: 02-06-2024 Bamboo flowsheet Dana Willie SUPERVISOR REWORK Work Phone: [facility] Start: 02-06-2024 End: 02-06-2024 Bamboo flowsheet Dana Willie SUPERVISOR REWORK Work Phone: [facility] Start: 01-20-2024 ambulatory DANA Mcintyre WILLIE [facility] Start: 01-19-2024 End: 01-19-[facility] Start: 01-16-2024 End: 01-16-2024 Patient encounter procedure Carlos Baer DPM Work Phone: [facility] Comment on above: Dermatophytosis of n ail (Primary Dx); Dystrophic nail; Pain around toenail, right foot; Pain around toenail, left foot Start: 01-16-2024 End: 01-16-2024 ambulatory CARLOS BAER Not Available Start: 01-16-2024 End: 01-16-2024 Bamboo flowsheet Carlos Baer DPM Work Phone: [facility] Start: 01-16-2024 End: 01-16-2024 Bamboo flowsheet Carlos Baer DPM Work Phone: [facility] Start: 01-11-2024 End: 01-11-2024 Office outpatient visit 25 minutes Dana Tapia SUPERVISOR REWORK Work Phone: [facility] Comment on above: Fibromyalgia (Primar y Dx); 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 elsewhere ([facility]/HCC); Class 2 severe obesity due to excess calories with serious comorbidity and body mass index (BMI) of 36.0 to 36.9 in adult ([facility]); ODALYS (generalized anxiety disorder) ([facility]); Essential (primary) hypertension ([facility]); Age-related osteoporosis without current pathological fracture ([facility]/HCC); Primary osteoarthritis involving multiple joints Start: 01-11-2024 End: 01-11-2024 ambulatory DANA TAPIA Not Available Start: 01-11-2024 End: 01-11-2024 Bamboo flowsheet Dana Garciaporshaeverett SUPERVISOR REWORK Work Phone: [facility] Start: 01-11-2024 End: 01-11-2024 Bamboo flowsheet Dana Garciapatricia SUPERVISOR REWORK Work Phone: [facility] Start: 01-10-2024 End: 01-10-2024 Bamboo flowsheet Jeffrey Taco Tonie DO Work Phone: [facility] Start: 01-10-2024 End: 01-10-2024 Bamboo flowsheet Jeffrey Schilling DO Work Phone: [facility] Start: 01-10-2024 End: 01-10-2024 Office outpatient visit 10 minutes Jeffrey Schilling DO Work Phone: [facility] Comment on above: Status post right ro tator cuff repair (Primary Dx); Right shoulder pain, unspecified chronicity Start: 01-10-2024 End: 01-10-2024 ambulatory JEFFREY SCHILLING Not Available Start: 01-09-2024 End: 01-09-2024 ambulatory Jesenia Jorge HEALTH CARE COORDINATOR Work Phone: [facility] Comment on above: Acute pain of right shoulder (Primary Dx); Shoulder stiffness, right Start: 01-06-2024 End: 01-06-2024 ambulatory Leo Goodwin PT Work Phone: [facility] Comment on above: Acute pain of right shoulder (Primary Dx); Shoulder stiffness, right Start: 01-05-2024 End: 01-05-2024 Bamboo flowsheet May Pulido SUPERVISOR REWORK Work Phone: [facility] Start: 01-05-2024 End: 01-05-2024 Bamboo flowsheet May Pulido SUPERVISOR REWORK Work Phone: [facility] Start: 01-05-2024 End: 01-05-2024 Office outpatient visit 10 minutes May Pulido SUPERVISOR REWORK Work Phone: [facility] Comment on above: Status post right ro tator cuff repair (Primary Dx); Right shoulder pain, unspecified chronicity Start: 01-05-2024 End: 01-05-2024 ambulatory MAY PULIDO Not Available Start: 01-02-2024 End: 01-02-2024 Bamboo flowsheet Leo Mcintyre Buddy PT Work Phone: [facility] Start: 01-02-2024 End: 01-02-2024 Bamboo flowsheet Leo J Buddy PT Work Phone: [facility] Start: 01-02-2024 End: 01-02-2024 ambulatory Leo Mcintyre Buddy PT Work Phone: [facility] Comment on above: Acute pain of right shoulder (Primary Dx); Shoulder stiffness, right Start: 12-30-2023 End: 12-30-2023 Bamboo flowsheet Christine Uribe HEALTH CARE COORDINATOR [facility] Start: 12-30-2023 End: 12-30-2023 Bamboo flowsheet Christine Lunay HEALTH CARE COORDINATOR [facility] Start: 12-30-2023 End: 12-30-2023 ambulatory Christine Uribe HEALTH CARE COORDINATOR [facility] Comment on above: Acute pain of right shoulder (Primary Dx); Shoulder stiffness, right Start: 12-29-2023 End: 12-29-2023 Refill Dana Tapia SUPERVISOR REWORK Work Phone: [facility] Comment on above: Gastro-esophageal re flux disease without esophagitis; Esophageal reflux Start: 12-28-2023 End: 12-28-2023 Bamboo flowsheet Jesenia Jorge HEALTH CARE COORDINATOR Work Phone: [facility] Start: 12-28-2023 End: 12-28-2023 Bamboo flowsheet Jesenia Jorge HEALTH CARE COORDINATOR Work Phone: [facility] Start: 12-28-2023 End: 12-28-2023 ambulatory Jesenia Jorge HEALTH CARE COORDINATOR Work Phone: [facility] Comment on above: Acute pain of right shoulder (Primary Dx); Shoulder stiffness, right Start: 12-23-2023 End: 12-23-2023 Bamboo flowsgladys Jorge HEALTH CARE COORDINATOR Work Phone: [facility] Start: 12-23-2023 End: 12-23-2023 Bamboo flowsheet Jesenia Jorge HEALTH CARE COORDINATOR Work Phone: [facility] Start: 12-23-2023 End: 12-23-2023 ambulatory Jesenia Jorge HEALTH CARE COORDINATOR Work Phone: [facility] Comment on above: Acute pain of right shoulder (Primary Dx); Shoulder stiffness, right Start: 12-19-2023 End: 12-19-2023 Bamboo flowsheet Leo Mcintyre Buddy PT Work Phone: [facility] Start: 12-19-2023 End: 12-19-2023 Bamboo flowsheet Leo Mcintyre Buddy PT Work Phone: [facility] Start: 12-19-2023 End: 12-19-2023 ambulatory Leo Goodwin PT Work Phone: [facility] Comment on above: Acute pain of right shoulder (Primary Dx); Shoulder stiffness, right Start: 12-16-2023 End: 12-16-2023 Bamboo flowsheet Jesenia Jorge HEALTH CARE COORDINATOR Work Phone: [facility] Start: 12-16-2023 End: 12-16-2023 Bamboo flowsheet Jesenia Jorge HEALTH CARE COORDINATOR Work Phone: [facility] Start: 12-16-2023 End: 12-16-2023 ambulatory Jesenia Jorge HEALTH CARE COORDINATOR Work Phone: [facility] Comment on above: Acute pain of right shoulder (Primary Dx); Shoulder stiffness, right Start: 12-15-2023 End: 12-15-2023 Refill Dana Tapia SUPERVISOR REWORK Work Phone: [facility] Comment on above: Arthropathy, unspeci fied; Unspecified osteoarthritis, unspecified site Start: 12-14-2023 End: 12-14-2023 Bamboo flowsheet Leo Goodwin PT Work Phone: [facility] Start: 12-14-2023 End: 12-14-2023 Bamboo flowsheet Leo Goodwin PT Work Phone: [facility] Start: 12-14-2023 End: 12-14-2023 ambulatory Leo Goodwin PT Work Phone: [facility] Comment on above: Acute pain of right shoulder (Primary Dx); Shoulder stiffness, right Start: 12-12-2023 End: 12-12-2023 ambulatory [facility] Work Phone: Start: 12-12-2023 End: 12-12-2023 Patient encounter procedure [facility] Tiffany Work Phone: Start: 12-12-2023 End: 12-12-2023 Bamboo flowsheet May Pulido SUPERVISOR REWORK Work Phone: [facility] Start: 12-12-2023 End: 12-12-2023 Bamboo flowsgladys Pulido SUPERVISOR REWORK Work Phone: [facility] Start: 12-12-2023 End: 12-12-2023 Postop follow up visit related to original px May Pulido SUPERVISOR REWORK Work Phone: [facility] Comment on above: Status post right ro tator cuff repair (Primary Dx) Start: 12-12-2023 End: 12-12-2023 ambulatory MAY PULIDO Not Available Start: 12-09-2023 End: 12-09-2023 Bamboo flowsheet Jesenia Jorge HEALTH CARE COORDINATOR Work Phone: [facility] Start: 12-09-2023 End: 12-09-2023 Bamboo flowsheet Jesenia Jorge HEALTH CARE COORDINATOR Work Phone: [facility] Start: 12-09-2023 End: 12-09-2023 ambulatory Jesenia Jorge HEALTH CARE COORDINATOR Work Phone: [facility] Comment on above: Acute pain of right shoulder (Primary Dx); Shoulder stiffness, right Start: 12-07-2023 End: 12-08-2023 ambulatory Jesenia Jorge HEALTH CARE COORDINATOR Work Phone: [facility] Comment on above: Acute pain of right shoulder (Primary Dx); Shoulder stiffness, right Start: 12-06-2023 End: 12-06-2023 Clinisync Result Encounter Generic External Data Provider [facility] External Department Unsolicited Start: 12-06-2023 End: 12-06-2023 Clinisync Result Encounter Generic External Data Provider [facility] External Department Unsolicited Start: 12-06-2023 [facility] Work Phone: Start: 12-02-2023 End: 12-02-2023 Bamboo flavio Jorge HEALTH CARE COORDINATOR Work Phone: [facility] Start: 12-02-2023 End: 12-02-2023 Bamboo flavio Jorge HEALTH CARE COORDINATOR Work Phone: [facility] Start: 12-02-2023 End: 12-02-2023 ambulatory Jesenia Jorge HEALTH CARE COORDINATOR Work Phone: [facility] Comment on above: Acute pain of right shoulder (Primary Dx); Shoulder stiffness, right Start: 11-30-2023 End: 11-30-2023 Bamboo flowsheet Leo Binghamgs PT Work Phone: [facility] Start: 11-30-2023 End: 11-30-2023 Bamboo flowsheet Leo J Buddy PT Work Phone: [facility] Start: 11-30-2023 End: 11-30-2023 ambulatory Leo J Buddy PT Work Phone: [facility] Comment on above: Acute pain of right shoulder (Primary Dx); Shoulder stiffness, right Start: 11-28-2023 End: 11-28-2023 Bamboo flowsheet Danataco Garciaporshaz SUPERVISOR REWORK Work Phone: [facility] Start: 11-28-2023 End: 11-28-2023 Bamboo flowsheet Dana Joseholz SUPERVISOR REWORK Work Phone: [facility] Start: 11-28-2023 End: 11-28-2023 Office outpatient visit 25 minutes Dana Lisettegenepatricia SUPERVISOR REWORK Work Phone: [facility] Comment on above: Essential (primary) hypertension (CMS/HCC) (Primary Dx); Fibromyalgia; 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 elsewhere (CMS/HCC); ODALYS (generalized anxiety disorder) ([facility]/HCC); Type 2 diabetes mellitus without complication, without long-term current use of insulin ([facility]) Start: 11-28-2023 End: 11-28-2023 ambulatory DANA LISETTEHHOLZ Not Available Start: 11-24-2023 End: 11-24-2023 Bamboo flowsheet Leo Goodwin PT Work Phone: [facility] Start: 11-24-2023 End: 11-24-2023 Bamboo flowsheet Leo Goodwin PT Work Phone: [facility] Start: 11-24-2023 End: 11-24-2023 ambulatory Leo Goodwin PT Work Phone: [facility] Comment on above: Acute pain of right shoulder (Primary Dx); Shoulder stiffness, right Start: 11-14-2023 End: 11-14-2023 Bamboo flowsheet May Pulido SUPERVISOR REWORK Work Phone: [facility] Start: 11-14-2023 End: 11-14-2023 Bamboo flowsheet May Pulido SUPERVISOR REWORK Work Phone: [facility] Start: 11-14-2023 End: 11-14-2023 Postop follow up visit related to original px May Pulido SUPERVISOR REWORK Work Phone: [facility] Comment on above: Status post right ro tator cuff repair Start: 11-14-2023 End: 11-14-2023 ambulatory MAY PULIDO Not Available Start: 10-17-2023 End: 10-17-2023 ambulatory MAY PULIDO Not Available Start: 10-13-2023 End: 10-13-2023 ambulatory CARLOS BAER Not Available Start: 10-05-2023 End: 10-05-2023 Evaluation and management of inpatient ANDRÉS Mcdonald [facility] Start: 10-05-2023 End: 10-05-2023 Evaluation and management of inpatient [facility] Start: 10-04-2023 End: 10-04-2023 ambulatory [facility] Work Phone: Start: 10-04-2023 End: 10-04-2023 Patient encounter procedure [facility] Work Phone: Start: 09-28-2023 End: 05-30-2024 Preoperative state Leoeduardo Goodwin PT Work Phone: [facility] Start: 09-28-2023 End: 09-28-2023 ambulatory DANA TAPIA Not Available Start: 09-27-2023 End: 09-27-2023 ambulatory [facility] Start: 09-27-2023 Encounter for other preprocedural examination [facility] Start: 09-22-2023 End: 09-22-2023 ambulatory JEFFREY [facility] Not Available Start: 09-14-2023 End: 09-14-2023 ambulatory MAY PULIDO Not Available Start: 09-12-2023 End: 09-12-2023 ambulatory MAY PULIDO Not Available Start: 07-12-2023 End: 07-12-2023 ambulatory CARLOS BAER Not Available Start: 07-07-2023 End: 07-07-2023 ambulatory MAY PULIDO Not Available Start: 06-23-2023 End: 06-23-2023 ambulatory MAY PULIDO Not Available Start: 06-20-2023 End: 06-20-2023 ambulatory DANA AICHHOLZ Not Available Start: 06-13-2023 End: 06-13-2023 ambulatory PHYSICIAN NO [facility] Work Phone: Start: 06-13-2023 End: 06-13-2023 Patient encounter procedure PHYSICIAN NO [facility] Nephrology Work Phone: Start: 06-07-2023 Non-patient / Non-visit PHYSICIAN NO [facility] Work Phone: Start: 05-11-2023 Non-patient / Non-visit PHYSICIAN NO [facility] Work Phone: Start: 04-13-2023 End: 04-13-2023 Patient encounter procedure Carlos Baer DPM Work Phone: [facility] Comment on above: Dermatophytosis of n ail (Primary Dx); Dystrophic nail; Pain around toenail, right foot; Pain around toenail, left foot Start: 04-13-2023 Bamboo flowsheet Carlos London er DPM Work Phone: [facility] Start: 04-13-2023 Bamboo flowsheet Carlos London er DPM Work Phone: [facility] Start: 03-31-2023 End: 03-31-2023 Discharged Recurring PHYSICIAN NO [facility] Work Phone: Start: 03-31-2023 End: 03-31-2023 ambulatory PHYSICIAN NO [facility] Work Phone: Start: 03-31-2023 End: 03-31-2023 Patient encounter procedure PHYSICIAN NO [facility] Physician [facility]- Start: 03-28-2023 Patient encounter procedure Carlos Baer DPM Work Phone: [facility] Start: 03-25-2023 End: 03-25-2023 ambulatory JHON PEREA [facility] Start: 03-03-2023 End: 03-03-2023 ambulatory Eboni Buck Other [facility] Other Start: 03-03-2023 Telephone encounter Eboni Buck [facility] Start: 12-14-2022 End: 12-14-2022 ambulatory Eboni Buck Other [facility] Other Start: 12-14-2022 Office outpatient vi sit 15 minutes Eboni Buck [facility] Start: 09-29-2022 (DM) Diabetes Tondra Mapus [facility] Start: 09-29-2022 End: 09-29-2022 ambulatory Tondra Mapus Other [facility] Other Start: 09-03-2022 End: 09-03-2022 ambulatory Tondra Mapus Other [facility] Other Start: 09-03-2022 Telephone encounter Tondra Mapus [facility] Start: 06-08-2022 End: 06-08-2022 ambulatory Eboni Buck Other [facility] Other Start: 06-08-2022 Office outpatient vi sit 25 minutes Eboni Buck [facility] Start: 06-02-2022 End: 06-03-2022 ambulatory EBONI BUCK Facility: Start: 04-01-2022 End: 04-01-2022 ambulatory Tondra Mapus Other [facility] Other Start: 04-01-2022 Telephone encounter Tondra Mapus [facility] Start: 03-31-2022 (DM) Diabetes Tondra Mapus [facility] Start: 03-31-2022 End: 03-31-2022 ambulatory Tondra Mapus Other [facility] Other Start: 03-31-2022 Telephone encounter Eboni Buck [facility] Start: 03-30-2022 End: 03-31-2022 ambulatory TONDRA MAPUS Facility:[facility] Start: 02-05-2022 End: 02-06-2022 ambulatory INSIDE UPHOLSTERER DANA TAPIA Facility:[facility] Start: 01-14-2022 End: 01-14-2022 ambulatory Eboni Buck Other [facility] Other Start: 01-14-2022 Telephone encounter Eboni Buck [facility] Start: 12-29-2021 End: 12-29-2021 ambulatory Eboni Buck Other [facility] Other Start: 12-29-2021 Telephone encounter Eboni Buck [facility] Start: 12-22-2021 End: 12-23-2021 ambulatory EBONI BUCK Facility:[facility] Start: 12-21-2021 (DM) Diabetes Tondra Map[facility] Start: 12-21-2021 End: 12-21-2021 ambulatory Tondra Mapus Other [facility] Other Start: 12-14-2021 End: 12-14-2021 ambulatory Eboni Buck Other [facility] Other Start: 12-14-2021 Office outpatient vi sit 25 minutes Eboni Buck [facility] Start: 12-04-2021 End: 12-05-2021 ambulatory TONDRA MAPUS Facility:[facility] Start: 09-23-2021 End: 09-23-2021 ambulatory Kristin Janae Other [facility] Other Start: 09-23-2021 Office outpatient vi sit 15 minutes Kristin Janae [facility] Start: 06-23-2021 (DM) Diabetes Tondra Mapus [facility] Start: 06-23-2021 End: 06-23-2021 ambulatory Tondra Mapus Other [facility] Other Start: 06-18-2021 End: 06-18-2021 ambulatory LIZTETE TAPIA Facility:[facility] Start: 06-17-2021 End: 06-17-2021 ambulatory LIZETTE TAPIA [place] [facility] Other Start: 06-17-2021 Office outpatient vi sit 25 minutes Eboni Buck [facility] Start: 06-12-2021 End: 06-13-2021 ambulatory EBONI BUCK Facility:[facility] Start: 06-09-2021 End: 06-09-2021 ambulatory Tondra Sadaf Other [facility] Other Start: 06-09-2021 Telephone encounter Jhon Perea [facility] Start: 12-23-2020 Office outpatient vi sit 15 minutes Eboni Buck [facility] Start: 12-17-2020 (DM) Diabetes Tondra Pe[facility] Start: 12-05-2020 ([facility] C Vac) [facility] Co vid Vaccine Natalee Viniciusgallito [facility] Start: 09-21-2016 End: 09-22-2016 Ambulatory JACIELEMILY LUTHERMARIANNA Facility:[facility] Procedures Date Procedure Procedure Detail Performing Clinician Start: 03-21-2024 Basic metabolic panel calcium total Cristopher Ellington MD Work Phone: Start: 03-21-2024 Hepatic function panel Cristopher Ellington MD Work Phone: Start: 12-06-2023 [facility] CBC WITH PLATELET NO DIFFERENTIAL Generic External Data Provider History of repair of musculotendinous cuff of shoulder Status post right rotator cuff repair May Pulido SUPERVISOR REWORK Work Phone: History of repair of musculotendinous cuff of shoulder Status post right rotator cuff repair May Pulido SUPERVISOR REWORK Work Phone: History of repair of musculotendinous cuff of shoulder Status post right rotator cuff repair Jeffrey Schilling DO Work Phone: History of repair of musculotendinous cuff of shoulder Status post right rotator cuff repair May Pulido NP Work Phone: Plan of Treatment Date Care Activity Detail Author Start: 05-17-2025 Tobacco Screening Tobacco Screening [facility] Start: 05-08-2025 End: 05-08-2025 Patient encounter procedure 05/08/2025 5:00 PM EDT Office Visit [facility] [address] [place] [address] Dana Tapia NP [address] [place] [address] [facility] Start: 05-07-2025 Medicare Annual Well ness (AWV) Medicare Annual Wellness (AWV) [facility] Start: 04-19-2025 Tobacco Screening Tobacco Screening [facility] Start: 04-04-2025 Tobacco Screening Tobacco Screening [facility] Start: 02-19-2025 Tobacco Screening Tobacco Screening [facility] Start: 12-10-2024 Glaucoma screening Diabetes: R etinopathy Screening [facility] Start: 11-06-2024 End: 11-06-2024 Patient encounter procedure 11/06/2024 2:00 PM EDT Office Visit [facility] [address] [place] [address] Dana Tapia, CHENTE [address] [place] [address] [facility] Start: 09-03-2024 Hemoglobin A1c measurement Diabetes: Hemoglobin A1C [facility] Healthcare Start: 07-16-2024 End: 07-16-2024 Patient encounter procedure 07/16/2024 2:30 PM EDT Procedure Visit [facility] [address] [place] [phone] Carlos Baer, DPM [address] [place] [address] [facility] Start: 07-12-2024 End: 07-12-2024 Patient encounter procedure 07/12/2024 1:40 PM EDT Office Visit [facility] [address] [place] [address] Dana Tapia NP [address] [place] [address] [facility] Start: 06-28-2024 End: 06-28-2024 Patient encounter procedure 06/28/2024 10:20 AM EDT Office [facility] [address] [facility] [address] [address] Daniel Wolf MD [address] [facility], [place] [phone] [facility] Start: 06-07-2024 End: 06-07-2024 ambulatory 06/07/2024 1:30 PM EDT Treatment [facility] [address] [place] [phone] Mely Grossman PTA [facility] Start: 06-06-2024 Urine screening for protein Diabetes: Urine Protein Screening [facility] Start: 06-05-2024 End: 06-05-2024 ambulatory 06/05/2024 1:30 PM EDT Treatment [facility] [address] [place] [address] Mely Grossman PTA [facility] Start: 05-31-2024 End: 05-31-2024 ambulatory 05/31/2024 1:30 PM EDT Treatment [facility] [address] [place] [phone] Jesenia Jorge PTA [address] [place], [place] [phone] [facility] Start: 05-30-2024 End: 05-30-2024 Patient encounter procedure [facility] Comment on above: Class 2 severe obesi ty due to excess calories with serious comorbidity and body mass index (BMI) of 36.0 to 36.9 in adult ([facility]) (Primary Dx); Essential (primary) hypertension ([facility]); Gastro-esophageal reflux disease without esophagitis; Esophageal reflux Start: 05-29-2024 End: 05-29-2024 ambulatory 05/29/2024 1:30 PM EDT Treatment [facility] [address] [facility] [place] [address] Leo Goodwin, PT [address] [facility], [place] [phone] [facility] Start: 05-24-2024 End: 05-24-2024 ambulatory [facility] Comment on above: Arrived Start: 05-22-2024 End: 05-22-2024 ambulatory 05/22/2024 1:30 PM EDT Treatment [facility] [address] [place] [phone] Jesenia Jorge, HEALTH CARE COORDINATOR [address] [place], [place] [phone] [facility] Start: 05-17-2024 End: 05-17-2024 ambulatory 05/17/2024 1:30 PM EDT Treatment [facility] [address] [facility] [place] [phone] Mely Grossman PTA [facility] Start: 05-17-2024 End: 05-17-2024 Patient encounter procedure 05/17/2024 10:20 AM EDT Office Visit [facility] [address] [place] [phone] Daniel Wolf MD [address] [place] [address] [facility] Start: 05-15-2024 End: 05-15-2024 ambulatory 05/15/2024 1:30 PM EDT Treatment [facility] [address] [place] [address] Leo Goodwin, PT [address] [place], [place] [phone] [facility] Start: 05-10-2024 End: 05-10-2024 ambulatory [facility] Comment on above: Arrived Start: 05-08-2024 End: 05-08-2024 ambulatory [facility] Start: 05-07-2024 End: 05-07-2024 Patient encounter procedure [facility] Comment on above: Type 2 diabetes ana maría itus with diabetic neuropathy, without long-term current use of insulin (CMS/HCC) (Primary Dx); Essential (primary) hypertension (CMS/HCC); Hypertensive chronic kidney disease with stage 1 through stage 4 chronic kidney disease, or unspecified chronic kidney disease (CMS/HCC); Gastroesophageal reflux disease without esophagitis; Age-related osteoporosis without current pathological fracture (CMS/HCC); Fibromyalgia; Class 2 severe obesity due to excess calories with serious comorbidity and body mass index (BMI) of 36.0 to 36.9 in adult (CMS/HCC); Type 2 diabetes mellitus without complication, without long-term current use of insulin (CMS/HCC); Mixed hyperlipidemia (CMS/HCC); Encounter for subsequent annual wellness visit (AWV) in Medicare patient Start: 05-03-2024 End: 05-03-2024 ambulatory [facility] Comment on above: Arrived Start: 05-01-2024 End: 05-01-2024 ambulatory [facility] Comment on above: Arrived Start: 04-26-2024 End: 04-26-2024 ambulatory 04/26/2024 1:30 PM EST Treatment [facility] [address] [place] [address] Mely Grossman PTA [facility] Start: 04-23-2024 End: 04-23-2024 ambulatory 04/23/2024 12:30 PM EST Evaluation [facility] [address] [place] [address] Leo Goodwin, PT [address] [place] [address] Arrived [facility] PT Comment on above: Arrived Start: 04-19-2024 End: 04-19-2024 Patient encounter procedure 04/19/2024 9:50 AM EST Office Visit [facility] [address] [place] [address] Danile Wolf MD [address] [place] [phone] [facility] Start: 04-18-2024 End: 04-18-2025 XR Shoulder - right 2 Views X-ray shoulder right minimum 2 views Imaging Routine S/P reverse total shoulder arthroplasty, right Expected: 04/18/2024, Expires: 04/18/2025 [facility] Work Phone: Comment on above: Expected: 04/18/2024 , Expires: 04/18/2025 Start: 04-17-2024 End: 04-17-2024 Patient encounter procedure [facility] Comment on above: Arrived Start: 04-05-2024 Hemoglobin A1c measurement Diabetes: Hemoglobin A1C [facility] Start: 04-04-2024 End: 04-04-2024 Admission to same day surgery center 04/04/2024 10:00 AM EST - 04/04/2024 11:45 AM EST Surgery [facility] [address] [facility] [place] [phone] Daniel Wolf MD [facility] [place], [place] [phone] REVERSE ARTHROPLASTY TOTAL SHOULDER [59882 (CPT )] [facility]: REVERSE ARTHROPLASTY TOTAL SHOULDER [17867 (CPT )] Start: 04-04-2024 End: 04-04-2024 Arthroplasty glenohumeral joint total shoulder REVERSE ARTHROPLASTY TOTAL SHOULDER Rotator cuff arthropathy of right shoulder 04/04/2024 10:00 AM EST [facility] Start: 04-04-2024 Subsequent hospital visit by physician 04/04/2024 10:00 AM [facility] Hospital Encounter [facility] [address] [facility] [place] [phone] Daniel Wolf MD [address] [place] [address] [facility] Start: 03-28-2024 Medicare Annual Well ness (AWV) Medicare Annual Wellness (AWV) [facility] Start: 03-19-2024 End: 03-19-2024 Patient encounter procedure [facility] Comment on above: Class 2 severe obesi ty due to excess calories with serious comorbidity and body mass index (BMI) of 36.0 to 36.9 in adult (CMS/HCC) (Primary Dx); Body mass index (BMI) 35.0-35.9, adult; Closed head injury, sequela; Hematoma of frontal scalp, sequela; Age-related osteoporosis without current pathological fracture (CMS/HCC) Start: 03-14-2024 End: 03-14-2024 Patient encounter procedure 03/14/2024 10:15 AM [facility] Office Visit [facility] [address] [facility] [address] [place] [address] Paco Scott DO [address] [place] [address] [facility] Start: 03-05-2024 End: 03-05-2024 Patient encounter procedure [facility] Comment on above: Hypertensive chronic kidney disease with stage 1 through stage 4 chronic kidney disease, or unspecified chronic kidney disease (CMS/HCC) (Primary Dx); Morbid (severe) obesity due to excess calories (CMS/HCC); Essential (primary) hypertension (CMS/HCC); Body mass index (BMI) 35.0-35.9, adult; Type 2 diabetes mellitus with diabetic neuropathy, unspecified (CMS/HCC); Malignant neoplasm of unspecified ovary (CMS/HCC); Type 2 diabetes mellitus with diabetic cataract (CMS/HCC); Type 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 (CMS/HCC); Chronic kidney disease, stage 3a (HCC) ([facility]CC); Class 2 severe obesity due to excess calories with serious comorbidity and body mass index (BMI) of 36.0 to 36.9 in adult ([facility]); Closed head injury, sequela; Hematoma of frontal scalp, sequela Start: 02-27-2024 End: 02-27-2024 Patient encounter procedure 02/27/2024 6:40 PM EST Office Visit [facility] [address] [place] [address] Dana Tapia, SUPERVISOR REWORK [address] [place] [address] Arrived [facility] Comment on above: Arrived Start: 02-20-2024 End: 02-20-2024 Patient encounter procedure 02/20/2024 1:40 PM EST Office Visit [facility] [address] [place] [address] Dana Tapia, SUPERVISOR REWORK [address] [place] [address] [facility] Start: 02-06-2024 End: 02-06-2024 Patient encounter procedure 02/06/2024 4:00 PM EST Office Visit [facility] [address] [place] [address] Dana Tapia, SUPERVISOR REWORK [address] [place] [address] Arrived [facility] Comment on above: Arrived Start: 02-06-2024 End: 04-08-2025 MG Breast - bilateral Screening Bilateral screening mammogram Imaging Routine Encounter for screening mammogram for malignant neoplasm of breast Expected: 02/06/2024 (Approximate), Expires: 04/08/2025 [facility] Work Phone: Comment on above: Expected: 02/06/2024 (Approximate), Expires: 04/08/2025 Start: 2024 End: 2024 ambulatory 2024 7:00 AM EST Treatment [facility] [address] [place] [phone] BuddyLeo, PT [address] [place] [address] [facility] Start: 01-29-2024 COVID-19 Vaccine ( season) COVID-19 Vaccine () [facility] Start: 01-25-2024 End: 01-25-2024 ambulatory 01/25/2024 7:00 AM EST Treatment [facility] [address] [place] [phone] Jesenia Jorge, HEALTH CARE COORDINATOR [address] [place] [address] [facility] Start: 01-23-2024 End: 01-23-2024 ambulatory 01/23/2024 7:00 AM EST Treatment [facility] [address] [place] [phone] Jesenia Jorge, HEALTH CARE COORDINATOR [address] [place] [address] [facility] Start: 01-20-2024 End: 01-20-2024 ambulatory 01/20/2024 7:00 AM EST Treatment [facility] [address] [place] [phone] Jesenia Jorge, HEALTH CARE COORDINATOR [address] [place] [address] [facility] Start: 01-17-2024 End: 01-17-2024 Patient encounter procedure 01/17/2024 9:30 AM EST Office Visit [facility] [address] [place] [address] Jeffrey Schilling, DO [address] [facility] [address] [place] [address] [facility] Start: 01-16-2024 End: 01-16-2024 Patient encounter procedure [facility] Comment on above: Arrived Start: 01-16-2024 End: 01-16-2024 ambulatory 01/16/2024 7:00 AM EST Treatment [facility] [address] [place] [phone] Jesenia Jorge, HEALTH CARE COORDINATOR [address] [place] [address] [facility] Start: 01-13-2024 End: 01-13-2024 ambulatory 01/13/2024 7:00 AM EST Treatment [facility] [address] [place] [phone] Leo Goodwin, PT [address] [facility] [place] [address] [facility] Start: 01-12-2024 End: 01-12-2024 Patient encounter procedure 01/12/2024 9:15 AM EST Office Visit [facility] [address] [place] [phone] Jeffrey Schilling, DO [address] [facility] [address] [place] [address] [facility] Start: 01-11-2024 End: 01-11-2024 Patient encounter procedure 01/11/2024 2:20 PM EST Office Visit [facility] [address] [place] [address] Dana Tapia, SUPERVISOR REWORK [address] [place] [address] [facility] Start: 01-10-2024 End: 01-10-2024 Patient encounter procedure 01/10/2024 11:45 AM EST Office Visit [facility] [address] [place] [phone] Jeffrey Schilling, [address] [place] [address] [facility] Start: 01-09-2024 End: 01-09-2024 ambulatory 01/09/2024 7:00 AM EST Treatment [facility] [address] [place] [phone] Jesenia Jorge, HEALTH CARE COORDINATOR [address] [place] [address] [facility] Start: 01-06-2024 End: 01-06-2024 ambulatory 01/06/2024 7:30 AM EST Treatment [facility] [address] [place] [address] Jesenia Jorge, HEALTH CARE COORDINATOR [address] [place] [address] [facility] Start: 01-05-2024 End: 01-05-2024 Patient encounter procedure 01/05/2024 9:45 AM EST Office Visit [facility] [address] [place] [phone] May Pulido, SUPERVISOR REWORK [address] [place] [address] Arrived [facility] Comment on above: Arrived Start: 01-02-2024 End: 01-02-2024 ambulatory 01/02/2024 7:30 AM EST Treatment [facility] [address] [place] [phone] Leo Goodwin, PT [address] [place] [address] [facility] Start: 12-30-2023 End: 12-30-2023 ambulatory [facility] Start: 12-28-2023 End: 12-28-2023 ambulatory 12/28/2023 7:00 AM EDT Treatment [facility] [address] [place] [phone] Jesenia Jorge, HEALTH CARE COORDINATOR [address] [place] [address] [facility] Start: 12-23-2023 End: 12-23-2023 ambulatory 12/23/2023 7:30 AM EDT Treatment [facility] [address] [place] [phone] Jesenia Jorge, HEALTH CARE COORDINATOR [address] [place] [address] [facility] Start: 12-19-2023 End: 12-19-2023 ambulatory 12/19/2023 7:00 AM EDT Treatment [facility] [address] [place] [phone] Leo Goodwin, PT [address] [place] [address] [facility] Start: 12-16-2023 End: 12-16-2023 ambulatory 12/16/2023 8:00 AM EDT Treatment [facility] [address] [place] [address] Jesenia Jorge, HEALTH CARE COORDINATOR [address] [place] [address] [facility] Start: 12-14-2023 End: 12-14-2023 ambulatory 12/14/2023 7:30 AM EDT Treatment [facility] [address] [place] [phone] Leo Goodwin, PT [address] [place] [address] [facility] Start: 12-12-2023 End: 12-12-2023 Patient encounter procedure [facility] Comment on above: Arrived Start: 12-09-2023 End: 12-09-2023 ambulatory 12/09/2023 7:30 AM EDT Treatment [facility] [address] [place] [phone] Jesenia Jorge, HEALTH CARE COORDINATOR [address] [place] [address] [facility] Start: 12-07-2023 End: 12-07-2023 ambulatory 12/07/2023 2:00 PM EDT Treatment [facility] [address] [place] [phone] Leo Goodwin, PT [address] [place] [address] [facility] Start: 12-02-2023 End: 12-02-2023 ambulatory [facility] Comment on above: Arrived Start: 11-30-2023 End: 11-30-2023 ambulatory [facility] Comment on above: Arrived Start: 11-28-2023 End: 11-28-2023 Patient encounter procedure [facility] Comment on above: Arrived Start: 11-24-2023 End: 11-24-2023 ambulatory 11/24/2023 12:30 PM EDT Evaluation [facility] [address] [place] [phone] Leo Goodwin, PT [address] [place] [address] Status post right rotator cuff repair [facility] Comment on above: Status post right ro tator cuff repair Start: 11-14-2023 End: 11-14-2023 Patient encounter procedure 11/14/2023 8:30 AM EDT Office Visit [facility] [address] [place] [phone] May Pulido, SUPERVISOR REWORK [address] [place], [place] [phone] Arrived [facility] Comment on above: Arrived Start: 10-30-2023 Influenza vaccination Influenza Vacc ine (#1) [facility] Start: 09-29-2023 Hemoglobin A1c measurement Diabetes: Hemoglobin A1C [facility] Start: 09-26-2023 End: 09-26-2023 Patient encounter procedure 09/26/2023 2:20 PM EDT Office Visit [facility] [address] [place] [phone] Dana Tapia NP [address] [place] [address] [facility] Start: 07-12-2023 End: 07-12-2023 Patient encounter procedure 07/12/2023 2:15 PM EDT Procedure Visit [facility] [address] [place] [address] Carlos Baer DPM [address] [place] [address] [facility] Start: 06-29-2023 Hemoglobin A1c measurement Diabetes: Hemoglobin A1C [facility] Start: 04-13-2023 End: 04-13-2023 Patient encounter procedure 04/13/2023 2:15 PM EST Procedure Visit [facility] [address] [place] [address] Carlos Baer DPM [address] [place] [address] Arrived [facility] Comment on above: Arrived Start: 01-31-2012 Fall Risk Screening Fall Risk Screen [facility] Start: 1966 DTaP,Tdap and Td Vaccines (1 - Tdap) DTaP,Tdap and Td Vaccines (1 - Tdap) [facility] Start: 1959 Depression Screening Depression Roxanne rodriguez [facility] Patient Education Foot Care for Diabetics [facility] Work Phone: Renal function 1999 panel - Serum or Plasma [facility] Renal function 1999 panel - Serum or Plasma [facility] Immunizations Immunization Date Immunization Notes Care Provider Fa cility 12-23-2023 RSV, recombinant, protein subunit RSVpreF, adjuvant reconstitu, 120mcg/0.5mL, PF (Arexvy) Carlos Baer DPM Work Phone: [facility] 11-22-2023 Seasonal trivalent influenza vaccine, adjuvanted, preservative free Leo Buddy PT Work Phone: [facility] 12-04-2022 Influenza, High-dose Seasonal, Quadrivalent, Preservative Free Leo Buddy PT Work Phone: [facility] 12-04-2022 influenza virus vacc ine, unspecified formulation May Pulido SUPERVISOR REWORK Work Phone: [facility] 03-19-2022 zoster vaccine recombinant Leo Buddy PT Work Phone: [facility] 12-06-2021 Influenza, High-dose Seasonal, Quadrivalent, Preservative Free Leo Buddy PT Work Phone: [facility] 11-10-2021 zoster vaccine recombinant Leo Buddy PT Work Phone: [facility] 12-05-2020 COVID-19 Pfizer Natalee Fitt Other [facility] 11-30-2020 Influenza, High-dose Seasonal, Quadrivalent, Preservative Free Leo Buddy PT Work Phone: [facility] 04-25-2020 COVID-19 Vaccine Pfi zer - Documentation Purposes Only Natalee Fitt Other [facility] 04-03-2020 COVID-19 Vaccine Pfi zer - Documentation Purposes Only Natalee Camacho Other [facility] 11-12-2019 unknown vaccine or immune globulin Leo Buddy PT Work Phone: [facility] 12-30-2018 influenza, high dose seasonal, preservative-free Leo Buddy PT Work Phone: [facility] 11-17-2017 influenza, high dose seasonal, preservative-free Leo Buddy PT Work Phone: [facility] 12-07-2016 influenza, high dose seasonal, preservative-free Leo Buddy PT Work Phone: [facility] 01-27-2016 influenza, seasonal, injectable, preservative free Leo Buddy PT Work Phone: [facility] 01-27-2016 pneumococcal conjuga te vaccine, 13 valent Leo Buddy PT Work Phone: [facility] 12-03-2014 influenza, seasonal, injectable, preservative free Leo Buddy PT Work Phone: [facility] 11-23-2013 influenza, seasonal, injectable, preservative free Leo Buddy PT Work Phone: [facility] 04-14-2012 pneumococcal polysaccharide vaccine, 23 valent Leo Buddy PT Work Phone: [facility] Payers Date Payer Category Payer Private Health Insurance AARP Ia mber [id number] 2022 Unknown AARP AARP [id number] 2022-Present [address] [place] [address] [id number] 2018 Self-pay [id number] 2016 Managed Care Other (unspecified) [facility] [id number] 2012 Medicare [id number] 1959 Medicare [id number] 2.16.840.1.805977.19 1959 Unknown [id number] 2.16.840.1.577359.19 1947 Unknown [id number] 2.16.840.1.412942.3.579.2 .593 1947 Unknown [id number] 2.16.840.1.066730.3.579.2 .593 1947 Unknown [id number] 2.16.840.1.505107.3.579.2 .593 1947 Unknown [id number] 2.16.840.1.470351.3.579.2 .593 1947 Unknown [id number] 2.16.840.1.732238.3.579.2 .593 1947 Unknown [id number] 2.16.840.1.449335.3.579.2 .593 1947 Unknown [id number] 2.16.840.1.103354.3.579.2 .593 1947 Unknown [id number] 2.16.840.1.391822.3.579.2 .593 1947 Unknown [id number] 2.16.840.1.741623.3.579.2 .593 1947 Unknown [id number] 2.16.840.1.630853.3.579.2 .1286 1947 Unknown [id number] 2.16.840.1.367216.3.579.2 .1286 1947 Unknown [id number] 2.16.840.1.672234.3.579.2 .1286 1947 Unknown [id number] 2.16.840.1.950857.3.579.2 .1286 1947 Unknown [id number] 2.16.840.1.562041.3.579.2 .1286 1947 Unknown [id number] 2.16.840.1.681494.3.579.2 .1286 1947 Unknown [id number] 2.16.840.1.779885.3.579.2 .1286 1947 Unknown [id number] 2.16.840.1.484532.3.579.2 .1286 1947 Unknown [id number] 2.16.840.1.736989.3.579.2 .1286 1947 Unknown [id number] 2.16.840.1.591156.3.579.2 .1286 1947 Unknown [id number] 2.16.840.1.919383.3.579.2 .1286 1947 Unknown [id number] 2.16.840.1.849336.3.579.2 .128 1947 Unknown [id number] 2.16.840.1.564714.3.579.2 .128 1947 Unknown [id number] 2.16.840.1.076097.3.579.2 .128 1947 Unknown [id number] 2.16.840.1.422101.3.579.2 .1285 1947 Unknown [id number] 2.16.840.1.168882.3.579.2 .1285 1947 Unknown [id number] 2.16.840.1.775419.3.579.2 .1285 1947 Unknown [id number] 2.16.840.1.585195.3.579.2 .1258 1947 Unknown [id number] 2.16.840.1.794842.3.579.2 .1258 1947 Unknown [id number] 2.16.840.1.181951.3.579.2 .1258 1947 Unknown [id number] 2.16.840.1.123336.3.579.2 .1258 1947 Unknown [id number] 2.16.840.1.450257.3.579.2 .1258 1947 Unknown [id number] 2.16.840.1.873682.3.579.2 .1258 1947 Unknown [id number] 2.16.840.1.879461.3.579.2 .1258 1947 Unknown [id number] 2.16.840.1.969669.3.579.2 .125 1947 Unknown [id number] 2.16.840.1.589849.3.579.2 .1259 1947 Unknown [id number] 2.16.840.1.211911.3.579.2 .1258 1947 Unknown [id number] 2.16.840.1.201085.3.579.2 .1258 1947 Unknown [id number] 2.16.840.1.276574.3.579.2 .1258 1947 Unknown [id number] 2.16.840.1.690414.3.579.2 .1258 1947 Unknown [id number] 2.16.840.1.139069.3.579.2 .1258 1947 Unknown [id number] 2.16.840.1.740503.3.579.2 .1258 1947 Unknown [id number] 2.16.840.1.486252.3.579.2 .1258 1947 Unknown [id number] 2.16.840.1.010333.3.579.2 .1258 1947 Unknown [id number] 2.16.840.1.961351.3.579.2 .1258 1947 Unknown [id number] 2.16.840.1.948718.3.579.2 .1258 1947 Unknown [id number] 2.16.840.1.452205.3.579.2 .1258 1947 Unknown [id number] 2.16.840.1.133557.3.579.2 .1258 1947 Unknown [id number] 2.16.840.1.604106.3.579.2 .1258 1947 Unknown [id number] 2.16.840.1.933153.3.579.2 .1258 1947 Unknown [id number] 2.16.840.1.276573.3.579.2 .1258 1947 Unknown [id number] 2.16.840.1.074574.3.579.2 .1258 1947 Unknown [id number] 2.16.840.1.366709.3.579.2 .1258 1947 Unknown [id number] 2.16.840.1.730185.3.579.2 .1258 1947 Unknown [id number] 2.16.840.1.499215.3.579.2 .1258 1947 Unknown [id number] 2.16.840.1.954410.3.579.2 .1258 1947 Unknown [id number] 2.16.840.1.000237.3.579.2 .1258 1947 Unknown [id number] 2.16.840.1.536762.3.579.2 .1258 1947 Unknown [id number] 2.16.840.1.458063.3.579.2 .1258 1947 Unknown [id number] 2.16.840.1.630600.3.579.2 .1258 1947 Unknown [id number] 2.16.840.1.032668.3.579.2 .1258 1947 Unknown [id number] 2.16.840.1.757224.3.579.2 .1258 1947 Unknown [id number] 2.16.840.1.109665.3.579.2 .1258 1947 Unknown [id number] 2.16.840.1.272321.3.579.2 .1258 1947 Unknown [id number] 2.16.840.1.127570.3.579.2 .1258 1947 Unknown [id number] 2.16.840.1.256038.3.579.2 .1258 1947 Unknown [id number] 2.16.840.1.677555.3.579.2 .1259 1947 Unknown [id number] 2.16.840.1.756479.3.579.2 .9 1947 Unknown [id number] 2.16.840.1.826248.3.579.2 .1259 1947 Unknown [id number] 2.16.840.1.830444.3.579.2 .9 1945 Unknown [id number] 1945 Unknown [id number] 1945 Unknown [id number] .9 1945 Unknown [id number] .125 1945 Unknown [id number] .1258 1945 Unknown [id number] .1258 1945 Unknown [id number] .1259 Medicare [id number] Unknown [id number] Unknown [id number] .531 Social History Date Type Detail Facility Unknown if ever smoked [facility] Other Start: 03-28-2023 End: 05-07-2024 Sex Assigned At [facility] Start: 10-06-2022 End: 09-28-2023 Tobacco smoking status WVIS Never smoked tobacco [facility] Start: 10-06-2022 End: 09-28-2023 Tobacco use and exposure Smokeless tobacco non-user [facility] Start: 03-28-2023 End: 04-13-2023 Alcohol intake Current drinker of alcohol (finding) [facility] Start: 03-28-2023 End: 05-07-2024 Alcohol intake [facility] Within the last year , have you been afraid of your partner or ex-partner? No [facility] Do you belong to any clubs or organizations such as anabaptist groups, unions, fraternal or athletic groups, or [...] got money to buy more. Never true [facility] Start: 10-06-2022 Alcohol Comment Caffeine intak e: 1-2 cups per day tea [facility] Start: 1945 Sex Assigned At Not on file N [facility] Start: 1945 Sex Assigned At Female [facility] Start: 11-28-2023 End: 05-30-2024 Alcoholic beverage intake Lifetime non-drinker (finding) [facility] Start: 09-20-2023 Gender identity Identifies as female gender (finding) [facility] Start: 10-03-2014 End: 03-06-2024 Sex Female (finding) [facility] Start: 03-21-2024 End: 05-17-2024 Alcoholic beverage intake Current non-drinker of alcohol (finding) [facility] NEGATED: Highlighted rowStart: RHEAF History of tobacco use Passive smoker [facility] Medical Equipment Procedure Code Equipment Code Equipment Origin al Text Equipment Identifier Dates [id number] Start: 06-28-2022 Healicoil Regene sorb 4.75mm Suture [place] [id number] Start: 10-05-2023 Healicoil Regene sorb 4.75mm Suture [place] [id number] Start: 10-05-2023 Healicoil Regene sorb 4.75 Suture [place] [id number] Start: 10-05-2023 Healicoil Knotle ss Regenesorb Suture [place] [id number] Start: 10-05-2023 Healicoil Knotle ss Regenesorb Suture [place] [id number] Start: 10-05-2023 Lens Iol Ultrase rt 18.0d - [id number] - [id number] Start: 04-04-2018 Lens Iol Ultrase rt 17.5d - [id number] - [id number] Start: 04-18-2018 Isten Trab Mcro Byps - [id number] - [id number] Start: 04-04-2018 Isten Trab Mcro Byps - [id number] - [id number] 182183_[facility] Start: 04-18-2018 Bearing Hum 36mm Cmprh Std Shldr Prlng Rvrs - [id number] ()[id number] )[id number] , [id number] FDA Start: 04-04-2024 Baseplate Augusto C mprh 25mm Mn Shldr Tpr Adpr Rvrs Sys - [id number] ()[id number] [id number] , [id number] FDA Start: 04-04-2024 Component Augusto 3 6mm Std Glenosphere Clr Cd Cmprh Versa-Dial - [id number] ()[id number] [id number] , [id number] FDA Start: 04-04-2024 Tray Hum Cmprh S td Shldr Rvrs - [id number] ()[id number] 7)[id number] , [id number] FDA Start: 04-04-2024 Stem Hum 83mm 12 mm Cmprh Por Mn Shldr Rvrs Sys - [id number] ()[id number](1 7)[id number], 725888_[facility] FDA Start: 04-04-2024 Screw Bn 15mm 4. 75mm Lck Fx Ang Hx Hd Ti Cmprh 3.5mm Strl - [id number] ()[id number] 7)[id number], [id number] FDA Start: 04-04-2024 Screw Bn 40mm 6. 5mm Cntr Hx Hd Ti Cmprh 3.5mm Strl Rvrs - [id number] Start: 04-04-2024 Screw Bn 30mm 4. 75mm Va Hx Hd Ti Cmprh 3.5mm Strl Rvrs Shldr - [id number] ()[id number](1 7)[id number], [id number] FDA Start: 04-04-2024 Screw Bn 35mm 4. 75mm Va Hx Hd Ti Cmprh 3.5mm Strl Rvrs Shldr - [id number] ()[id number](1 7)[id number], 725883_[facility] FDA Start: 04-04-2024 Screw Bn 15mm 4. 75mm Lck Fx Ang Hx Hd Ti Cmprh 3.5mm Strl - [id number] ()[id number](1 7)[id number], 725884_[facility] FDA Start: 04-04-2024 Clinical Notes 12-05-2020 to 05-30-2024 Dana Tapia NP - 05/30/2024 3:17 PM EDTHJOSÉ MCGINNIS - 05/30/2024 2:40 PM Dakota Tapia NP - 05/30/2024 2:40 PM Dakota Tapia NP - 05/30/2024 7:00 AM EDTPatient Instructions Note Date & Type Note Facility 05-30-2024 History of Present illness Narrative Associated Problem(s): Back pain of lumbar region with sciatica Not going to change NSAID, no muscle relaxer d/t polypharmacy Will order PT Fu in 4-6 weeks Sciatica pain for the last couple months- lower back into right leg. Tangling sensation and pain in right foot when standing. PT shown her exercises that she could do however they are not helping with the pain. Pt takes tylenol for pain. Pt states that it is usually goes from dull achy to a 7 throughout the day and at night when laying down it goes over a 10 in pain Pt needs a refill on the deangelo Ashley Wang is a 79 y.o. female presents with chief complaint of No chief complaint on file. HPI: For a few months, maybe since her fall in jan 2024 Constant achy, right buttock, tingling right foot, sxs worse when lying down. No cauda equina sxs. tried stretching exercise, tennis ball, SUBJECTIVE: MEDICATIONS: Current Outpatient Medications Medication Instructions [...] mg, Daily atorvastatin (LIPITOR) 20 mg, Oral, Nightly Calcium Carbonate-Vitamin D (CALTRATE 600+D PO) Caltrate 600+D cetirizine (ZyrTEC) 10 MG tablet Every 24 hours cholecalciferol (Vitamin D-3) 50 MCG (1999) tablet Vitamin D3 diphenhydrAMINE-acetaminophen (Tylenol PM) 25-500 [...] tablet Every 24 hours melatonin tablet Nightly Multiple Vitamins-Minerals (One Daily For Women 50+ Adv) tablet as directed Orally omeprazole (PRILOSEC) 20 mg, Oral, Daily before breakfast ondansetron ODT (ZOFRAN-ODT) 4 mg, Every 8 hours PRN OneTouch Ultra test strip 1 each, As needed traMADol (ULTRAM) 50 mg, Every 6 hours PRN ALLERGIES: Allergies Allergen Reactions Metformin Other Reaction(s): g/i s/e Other Unknown Semaglutide Diarrhea Soy Allergy (Obsolete) Unknown Wound Dressing Adhesive Unknown Sulfa Antibiotics Hives and Rash REVIEW OF SYMPTOMS: Review of Systems Constitutional: Negative for appetite change, chills, fatigue, fever and unexpected weight change. HENT: Negative for congestion, ear pain, sinus pressure, sinus pain and sore throat. Eyes: Negative for pain, discharge, redness and visual disturbance. Breasts: Negative for breast mass and breast discharge. Respiratory: Negative for apnea, cough, chest tightness, shortness of breath and wheezing. Cardiovascular: Negative for chest pain, palpitations and leg swelling. Gastrointestinal: Negative for abdominal pain, blood in stool, constipation, diarrhea, nausea and vomiting. Genitourinary: Negative for decreased urine volume, difficulty urinating, dysuria and frequency. Musculoskeletal: Positive for arthralgias and back pain. Negative for gait problem, joint swelling and myalgias. Skin: Negative for color change, rash and wound. Neurological: Negative for dizziness, tremors, seizures, syncope, weakness and headaches. Tingling right foot Psychiatric/Behavioral: Negative for agitation, behavioral problems, hallucinations, self-injury and suicidal ideas. The patient is not nervous/anxious. Hematological: Negative for adenopathy. Does not bruise/bleed easily. Endocrine: Negative for cold intolerance, heat intolerance, polydipsia, polyphagia and polyuria. Allergic/Immunologic: Negative for environmental allergies and food allergies. PAST MEDICAL HISTORY Past Medical History: Diagnosis Date Abnormal mammogram of left breast Age-related osteoporosis without current pathological fracture ([facility]) 02/18/2023 Allergic rhinitis, seasonal Arthritis Bulging lumbar [...] in her mother. OBJECTIVE: Visit Vitals BP 160/82 (BP Location: Left arm, Patient Position: Sitting, BP Cuff Size: Large adult) Pulse 66 Temp 98.1 F (Temporal) Resp 18 Wt 211 lb SpO2 99% BMI 36.79 kg/m Smoking Status Never BSA 2.07 m Physical Exam Vitals and nursing note [...] sounds. Pulmonary: Effort: Pulmonary effort is normal. No respiratory distress. Breath sounds: Normal breath sounds. No wheezing. Abdominal: General: Bowel sounds are normal. There is no distension. Palpations: Abdomen is soft. There is no mass. Tenderness: There is no abdominal tenderness. Musculoskeletal: Cervical back: Normal range of motion and neck supple. Right lower leg: No edema. Left lower leg: No edema. Comments: +tenderness to right SI region Near full lumbar flexion, ext 10, rotation to the right increase pain Heel/toe walk ok -SLR X2, DTR's 1+ bilat patellar/ 1-2+ bilat achilles MMT 5/5 bilat LE Skin: General: Skin is warm and dry. [...] of 36.0 to 36.9 in adult (CMS/HCC) - Primary Discussed with patient their BMI (actual, verses recommended). We have also discussed lifestyle modifications: attempts to perform physical activity as chronic conditions allow, also to monitor dietary intake: increasing protein/fruits/veggies and lowering carb intake (unless contraindicated). Limit sodas, juices, and sugary drinks Essential (primary) hypertension (CMS/HCC) Relevant Medications amLODIPine (Norvasc) 5 MG tablet losartan (Cozaar) 100 MG tablet Back pain of lumbar region with sciatica Not going to change NSAID, no muscle relaxer d/t polypharmacy Will order PT Fu in 4-6 weeks Relevant Orders Ambulatory referral to Physical Therapy Other Visit Diagnoses Gastro-esophageal reflux disease without esophagitis Relevant Medications omeprazole (PriLOSEC) [address] capsule Esophageal reflux Relevant Medications omeprazole (PriLOSEC) [address] capsule Associated Problem(s): Class 2 severe obesity due to excess calories with serious comorbidity and body mass index (BMI) of 36.0 to 36.9 in adult ([facility]) Discussed with patient their BMI (actual, verses recommended). We have also discussed lifestyle modifications: attempts to perform physical activity as chronic conditions allow, also to monitor dietary intake: increasing protein/fruits/veggies and lowering carb intake (unless contraindicated). Limit sodas, juices, and sugary drinks documented in this encounter [facility] 05-30-2024 Instructions Dana Tapia NP - 05/30/2024 2:40 PM EDT PT documented in this encounter [facility] 05-17-2024 History of Present illness Narrative Patient ID: Ashley Wang is a 79 y.o. female. SUBJECTIVE: Patient returns for evaluation status post right reverse total shoulder arthroplasty 04/04/2024. States she has had recent flare-up of pain and difficulty progressing with motion. Denies any wound healing problem. No numbness tingling fevers chills night sweats. Past Medical History: Diagnosis Date Arthritis Back pain Cataract Chronic kidney disease stage 3 Deep vein thrombosis ([facility]) Diabetes mellitus ([facility]) Diabetes mellitus type 2, controlled ([facility]) Fibromyalgia GERD (gastroesophageal reflux disease) Head injury recent fall/ bump on forehead HL (hearing loss) bilat hearing aids Hyperlipidemia Hypertension Infectious viral hepatitis as a child. patient uncertain of type Obesity Ovarian cancer ([facility]) 1994 PONV (postoperative nausea and vomiting) Rotator cuff tear here for preop w/u R scope Visual impairment Past Surgical History: Procedure Laterality Date ARTHROSCOPIC REPAIR ROTATOR CUFF SHOULDER Right 10/05/2023 Performed by Jeffrey Schilling DO at [facility] BLEPHAROPLASTY OPHTH Bilateral 04/03/2019 Performed by Glenna Egan MD at [facility] BREAST BIOPSY Right 06/12/1991 BURSECTOMY Right right hip COLONOSCOPY N/A 02/18/2022 Performed by Paco Ghosh DO at [facility] COLONOSCOPY N/A 12/24/2016 Performed by Kai Blackwell MD at [facility] HYSTERECTOMY Ovarian CA JOINT REPLACEMENT Bilateral knee replacement OVARY SURGERY ovarian cancer PHACO KELMAN I IMPLANT INTRAOCULAR LENS I-STENT Left 04/18/2018 Performed by Glenna Egan MD at [facility] PHACO KELMAN I IMPLANT INTRAOCULAR LENS I-STENT Right 04/04/2018 Performed by Glenna Egan MD at [facility] REVERSE ARTHROPLASTY TOTAL SHOULDER Right 04/04/2024 Performed by Daniel Wolf MD at [facility] UMBILICAL HERNIA REPAIR Current Outpatient Medications Medication Sig Dispense Refill alendronate (FOSAMAX) 70 mg tablet Take 1 tablet (70 mg total) by mouth every 7 days. In a.m. with water on empty stomach, nothing else by mouth and remain upright for 30min saturdays amLODIPine (NORVASC) 10 mg tablet Take 0.5 tablets (5 mg total) by mouth once daily. 3 ascorbic acid, vitamin C, (VITAMIN C) 1000 mg tablet Take 1 tablet (1,000 mg total) by mouth in the morning. aspirin 81 mg Take 1 tablet (81 mg total) by mouth in the morning. Begin taking day AFTER total joint replacement. 30 tablet 0 atorvastatin (LIPITOR) 20 mg tablet Take 1 [...] (FISH OIL ORAL) Take by mouth daily. DULoxetine (CYMBALTA) 30 mg capsule Take 1 capsule (30 mg total) by mouth in the morning. FARXIGA 5 mg tablet Take 1 tablet (5 mg total) by mouth in the morning. ferrous sulfate 325 (65 FE) mg tablet Take 1 tablet (325 mg total) by mouth in the morning. fluticasone (FLONASE) 50 mcg/actuation nasal spray Administer 1 spray into each nostril as needed. gabapentin (NEURONTIN) 100 mg capsule Take 1 capsule (100 mg total) by mouth once daily. 4 latanoprost (XALATAN) 0.005 % ophthalmic solution Administer 1 drop to both eyes nightly. losartan (COZAAR) 100 mg tablet Take 1 tablet (100 mg total) by mouth in the morning. MAGNESIUM CARBONATE ORAL Take 250 mg by mouth daily. melatonin tablet Take by mouth nightly. meloxicam (MOBIC) 15 mg tablet Take 1 tablet (15 mg total) by mouth in the morning. wbmpcslt-pjpo-NC-calcium &mins (THERAGRAN-M) 9 mg iron-400 mcg tablet Take 1 tablet by mouth in the morning. No current facility-administered medications for this visit. Allergies Allergen Reactions Soy Nausea Nausea, rash, eye swelling from an excessive soy diet. Adhesive Tape-Silicones Metformin Other Reaction(s): g/i s/e Semaglutide Diarrhea Sulfa (Sulfonamide Antibiotics) Hives Social History Occupational History Not on file Tobacco Use Smoking status: Never Smokeless tobacco: Never Vaping Use Vaping status: Never Used Substance and Sexual Activity Alcohol use: No Drug use: No Sexual activity: Defer Partners: Male Ht 160 cm (5' 3 ) Wt 94.3 kg (208 lb) BMI 36.85 kg/m Body mass index is 36.85 kg/m . OBJECTIVE: Right shoulder surgical scar no signs of infection. No significant swelling. Pain and guarding with active range of motion forward flexion 85 abduction 80 external rotation 35 internal rotation SI joint. Intact axillary nerve function. Distally neurovascular intact. IMAGING/LABS: No new imaging obtained today. ASSESSMENT: Status post right reverse total shoulder arthroplasty 04/04/2024 PLAN: Patient will continue working with motion and strengthening exercises. She was given another script for therapy. She will follow up in 6 weeks to evaluate her progress. DANIEL WOLF MD documented in this encounter [facility] 05-08-2024 History of Present illness Narrative Images from the original note were not included. Physical Therapy Physical Therapy Treatment Visit Patient Name: Ashley Wang Today's Date: 05/08/2024 Encounter Diagnoses Name Primary? Acute pain of right shoulder Yes Status post reverse total arthroplasty of right shoulder Shoulder stiffness, right Visit number: 5 Time In: 1:20 pm Time Out: 2:05 pm Supervised Time: 39 min sup Total Time: 45 min total Subjective Ashley Wang 79 y.o. female presents to physical therapy w/ chief c/o R shoulder pain. Mechanism of Onset: s/p RCR 10/05/23 with poor outcome then RTSA 04/04/24 Current deficits: pain, decreased ROM/flexibility, weakness Pain: denies pain upon arrival Location: R shoulder/UE Aggravating Factors: movement at times, ADLs/self care at times, but trying not to use R UE much per advisement Relieving factors: rest, ice Precautions: See protocol in paper chart. Objective No longer in sling. Incision healing, scabbing still present, no s/s of infection PROM flex to 90, ER to 45, abd to 65, ext to 0 AROM: flex/elevation to 45 degrees standing, UT sub noted, ER to 15, ext to 0 Elbow, forearm, wrist AROM WNL, strength at least 3/5 MMT Treatment Interventions Education: HEP education Manual Therapy: x15 PROM (within protocol) , gentle massage good tolerance. Therapeutic Exercise:x 24 min sup per SOUMYA grid, ROM, flexibility, strength as appropriate per protocol and tolerance demo and verbal cues for correct technique and </= 90 degrees elevation and </= 45 degrees ER to start per protocol. Added supine AA press and flex, UBE today no issues. Modalities: CP, declined Assessment/Plan R shoulder pain, decreased ROM, flexibility, strength s/p R reverse total 04/04/24 Pt tolerates session well. Significant R UT compensation noted with AA flexion st, good awareness when using mirror, better tolerance to added supine version with better range. PROM within limits of protocol, no pain reported. STM with min pressure to upper arm overall with tenderness reported. Continue as tolerated documented in this encounter [facility] 05-07-2024 History of Present illness Narrative Images from the original note were not included. Ashley Wang is a 79 y.o. female presents with chief complaint of Medicare Annual Wellness Visit Initial HPI: Diet:variety Activity: chronic conditions not as active Mental Health Concerns: takes SNRI Falls in the last year: yes Still driving:yes Do you pay your bills:yes Any hearing problems:no, wears hearing aids Any Vision problems: no wears glasses Any Hospitalizations in the last year:surgeries only Specialist: ortho, diabetes mgmt HCPOA/Living Will: yes Concerns: had shoulder surgery and is in PT, doing well SUBJECTIVE: MEDICATIONS: Current Outpatient Medications Medication Instructions [...] mg, Daily atorvastatin (LIPITOR) 20 mg, Oral, Nightly Calcium Carbonate-Vitamin D (CALTRATE 600+D PO) Caltrate 600+D cetirizine (ZyrTEC) 10 MG tablet Every 24 hours cholecalciferol (Vitamin D-3) 50 MCG (1999) tablet Vitamin D3 diphenhydrAMINE-acetaminophen (Tylenol PM) 25-500 [...] tablet Every 24 hours melatonin tablet Nightly Multiple Vitamins-Minerals (One Daily For Women 50+ Adv) tablet as directed Orally omeprazole (PRILOSEC) 20 mg, Oral, Daily before breakfast ondansetron ODT (ZOFRAN-ODT) 4 mg, Every 8 hours PRN OneTouch Ultra test strip 1 each, As needed traMADol (ULTRAM) 50 mg, Every 6 hours PRN ALLERGIES: Allergies Allergen Reactions Metformin Other Reaction(s): g/i s/e Other Unknown Semaglutide Diarrhea Soy Allergy (Obsolete) Unknown Wound Dressing Adhesive Unknown Sulfa Antibiotics [...] breast Age-related osteoporosis without current pathological fracture ([facility]) 02/18/2023 Allergic rhinitis, seasonal Arthritis Bulging lumbar [...] in her mother. OBJECTIVE: Visit Vitals BP 128/76 (BP Location: Left arm, Patient Position: Sitting, BP Cuff Size: Adult long) Pulse 85 Temp 97.8 F (Temporal) Resp 18 Ht 5' 3.5 Wt 210 lb 12.8 oz SpO2 98% BMI 36.76 kg/m Smoking Status Never BSA 2.07 m Physical Exam Vitals and nursing note [...] Tenderness: There is no abdominal tenderness. Musculoskeletal: Cervical back: Normal range of motion and neck supple. Right lower leg: No edema. Left lower leg: No edema. Skin: General: Skin is warm and dry. Capillary Refill: Capillary refill takes 2 to 3 seconds. Findings: No rash. Neurological: General: No focal deficit present. Mental Status: She is alert and oriented to person, place, and time. Psychiatric: Mood and Affect: Mood normal. Behavior: Behavior normal. Thought Content: Thought content normal. Judgment: Judgment normal. ASSESSMENT AND PLAN: Follow up in about 6 months (around 11/07/2024). Problem List Items Addressed This Visit Fibromyalgia Current medications: deangelo and duloxetine Gastroesophageal reflux disease Recommendations: freq small meals, nothing to eat or drink at least 2 hours prior to bed, limit caffeine, alcohol, as well as spicy foods Meds to limit or avoid if possible: NSAIDS Elevate HOB if possible Current med: omparzole Close monitor of renal function Hyperlipidemia ([facility]) On statin therapy Check labs yearly and prn dose changes Class 2 severe obesity due to excess calories with serious comorbidity and body mass index (BMI) of 36.0 to 36.9 in adult ([facility]) Discussed with patient their BMI (actual, verses recommended). We have also discussed lifestyle modifications: attempts to perform physical activity as chronic conditions allow, also to monitor dietary intake: increasing protein/fruits/veggies and lowering carb intake (unless contraindicated). Limit sodas, juices, and sugary drinks Age-related osteoporosis without current pathological fracture ([facility]) Dexa: 02/19/23 Current med: fosamax Encounter for subsequent annual wellness visit (AWV) in Medicare patient - Primary Reviewed Ht/Wt/BMI Recommend eye exam yearly Recommend dental exams twice a year Balance work/leisure activities Exercises is recommended most days of the week (appropriate as chronic conditions allow) Follow up yearly and prn Type 2 diabetes mellitus without complication, without long-term current use of insulin ([facility]) Check blood sugars daily, notify if <70 or >200. Take medications (pills or insulin) as directed. Monitor for s/s of hypoglycemia (sweaty, dizziness, nausea, vomiting, or shakiness). Watch for increase in thirst, urination, or appetite. Inspect feet frequently monitoring for open wounds , and also recommend yearly eye exam. Pt should attempt to remain as physically active as chronic conditions allow, as well as trying to follow a diet low in carbohydrates, and simple sugars. Current meds: metformin and farxiga, as well as statin, asa, and arb A1c 5.5% 03/06/24 Dyllan Mapus Hypertensive chronic kidney disease with stage 1 through stage 4 chronic kidney disease, or unspecified chronic kidney disease ([facility]) Continue with nephrology Recommend adequate bp and DM control as well Avoid nephrotoxic drugs IF possible, if taking close monitoring of risk/benefits Essential (primary) hypertension ([facility]) Please check blood pressure daily and record DASH diet Limit caffeine Take medication as directed Contact office if chest pain, pressure, dizziness, shortness of breath, swelling legs Recommend slow position changes Current meds: losartan, amlodipine and asa Type 2 diabetes mellitus with diabetic neuropathy, unspecified ([facility]) Continue with glucose control Takes gabapentin and duloxetine ]\ ] Associated Problem(s): Encounter for subsequent annual wellness visit (AWV) in Medicare patient Reviewed Ht/Wt/BMI Recommend eye exam yearly Recommend dental exams twice a year Balance work/leisure activities Exercises is recommended most days of the week (appropriate as chronic conditions allow) Follow up yearly and prn Associated Problem(s): Hyperlipidemia ([facility] [facility] [place] On statin therapy Check labs yearly and prn dose changes Associated Problem(s): Type 2 diabetes mellitus without complication, without long-term current use of insulin ([facility] [place]) Check blood sugars daily, notify if <70 or >200. Take medications (pills or insulin) as directed. Monitor for s/s of hypoglycemia (sweaty, dizziness, nausea, vomiting, or shakiness). Watch for increase in thirst, urination, or appetite. Inspect feet frequently monitoring for open wounds , and also recommend yearly eye exam. Pt should attempt to remain as physically active as chronic conditions allow, as well as trying to follow a diet low in carbohydrates, and simple sugars. Current meds: metformin and farxiga, as well as statin, asa, and arb A1c 5.5% 03/06/24 Dyllan Mapus Associated Problem(s): Class 2 severe obesity due to excess calories with serious comorbidity and body mass index (BMI) of 36.0 to 36.9 in adult ([facility] [place]) Discussed with patient their BMI (actual, verses recommended). We have also discussed lifestyle modifications: attempts to perform physical activity as chronic conditions allow, also to monitor dietary intake: increasing protein/fruits/veggies and lowering carb intake (unless contraindicated). Limit sodas, juices, and sugary drinks Associated Problem(s): Fibromyalgia Current medications: deangelo and duloxetine Associated Problem(s): Age-related osteoporosis without current pathological fracture ([facility] [place]) Dexa: 02/19/23 Current med: fosamax Associated Problem(s): Gastroesophageal reflux disease Recommendations: freq small meals, nothing to eat or drink at least 2 hours prior to bed, limit caffeine, alcohol, as well as spicy foods Meds to limit or avoid if possible: NSAIDS Elevate HOB if possible Current med: omparzole Close monitor of renal function Associated Problem(s): Hypertensive chronic kidney disease with stage 1 through stage 4 chronic kidney disease, or unspecified chronic kidney disease ([facility]) Continue with nephrology Recommend adequate bp and DM control as well Avoid nephrotoxic drugs IF possible, if taking close monitoring of risk/benefits Associated Problem(s): Essential (primary) hypertension ([facility]) Please check blood pressure daily and record DASH diet Limit caffeine Take medication as directed Contact office if chest pain, pressure, dizziness, shortness of breath, swelling legs Recommend slow position changes Current meds: losartan, amlodipine and asa Associated Problem(s): Type 2 diabetes mellitus with diabetic neuropathy, unspecified ([facility]) Continue with glucose control Takes gabapentin and duloxetine documented in this encounter [facility] 04-23-2024 History of Present illness Narrative Images from the original note were not included. Physical Therapy Physical Therapy Evaluation Visit Patient Name: Ashley Wang Today's Date: 04/23/2024 Encounter Diagnoses Name Primary? Acute pain of right shoulder Yes Status post reverse total arthroplasty of right shoulder Visit number: 1 Subjective Ashley Wang 79 y.o. female presents to physical therapy w/ chief c/o R shoulder pain. Mechanism of Onset: s/p RCR 10/05/23 with poor outcome then RTSA 04/04/24 Current deficits: pain, decreased ROM/flexibility, weakness Pain: 0/10 at rest, mild to mod at times Location: R shoulder/UE Aggravating Factors: movement at times, ADLs/self care at times, but trying not to use R UE much per advisement Relieving factors: rest, ice Precautions: See protocol in paper chart. Objective No longer in sling. Incision healing, scabbing still present, no s/s of infection PROM flex to 90, ER to 45, abd to 65, ext to 0 AROM: flex/elevation to 45 degrees standing, UT sub noted, ER to 15, ext to 0 Elbow, forearm, wrist AROM WNL, strength at least 3/5 MMT Treatment Interventions Education: HEP education with demonstration with handout and review, Educated on Eval Findings and POC, cold pack use, precautions and importance x 10 min self care/home maintenance Manual Therapy: PROM (within protocol) , gentle massage x 10 min tolerated well Therapeutic Exercise: per SOUMYA grid, ROM, flexibility, strength as appropriate per protocol and tolerance x 20 min sup, demo and verbal cues for correct technique and </= 90 degrees elevation and </= 45 degrees ER to start per protocol. Modalities: CP x 10 min end of session Assessment/Plan R shoulder pain, decreased ROM, flexibility, strength s/p R reverse total 04/04/24 Patient Goals Short Term Goal #1: pt will demo R shoulder AROM grossly WNL pain free all planes Short Term Goal #2: pt will be ind with HEP for maintenance/progression prn at DC from PT Short Term Goal #3: pt will be ind with ADLs/self care. Pt will benefit from skilled PT to address the above impairments for 2x/week for 6-12 weeks pending pt needs/progress and orders at RTD I hereby deem this POC medically necessary. Please sign below. Date: documented in this encounter [facility] 04-19-2024 History of Present illness Narrative 04/19/2024 Subjective: This is a 79-year-old female coming in for recheck of the right shoulder. She is status post right reverse total shoulder arthroplasty on 04/04/2024. States she is doing well. She was off narcotic pain medication. She was given a sling as directed Current Outpatient Medications Medication Sig Dispense Refill alendronate (FOSAMAX) 70 mg tablet Take 1 tablet (70 mg total) by mouth every 7 days. In a.m. with water on empty stomach, nothing else by mouth and remain upright for 30min saturdays amLODIPine (NORVASC) 10 mg tablet Take 0.5 tablets (5 mg total) by mouth once daily. 3 ascorbic acid, vitamin C, (VITAMIN C) 1000 mg tablet Take 1 tablet (1,000 mg total) by mouth in the morning. aspirin 81 mg Take 1 tablet (81 mg total) by mouth in the morning. Begin taking day AFTER total joint replacement. 30 tablet 0 atorvastatin (LIPITOR) 20 mg tablet Take 1 [...] (FISH OIL ORAL) Take by mouth daily. DULoxetine (CYMBALTA) 30 mg capsule Take 1 capsule (30 mg total) by mouth in the morning. FARXIGA 5 mg tablet Take 1 tablet (5 mg total) by mouth in the morning. ferrous sulfate 325 (65 FE) mg tablet Take 1 tablet (325 mg total) by mouth in the morning. fluticasone (FLONASE) 50 mcg/actuation nasal spray Administer 1 spray into each nostril as needed. gabapentin (NEURONTIN) 100 mg capsule Take 1 capsule (100 mg total) by mouth once daily. 4 latanoprost (XALATAN) 0.005 % ophthalmic solution Administer 1 drop to both eyes nightly. losartan (COZAAR) 100 mg tablet Take 1 tablet (100 mg total) by mouth in the morning. MAGNESIUM CARBONATE ORAL Take 250 mg by mouth daily. melatonin tablet Take by mouth nightly. meloxicam (MOBIC) 15 mg tablet Take 1 tablet (15 mg total) by mouth in the morning. zwhgbazs-spwc-RI-calcium &mins (THERAGRAN-M) 9 mg iron-400 mcg tablet Take 1 tablet by mouth in the morning. No current facility-administered medications for this visit. Allergies Allergen Reactions Soy Nausea Nausea, rash, eye swelling from an excessive soy diet. Adhesive Tape-Silicones Metformin Other Reaction(s): g/i s/e Semaglutide Diarrhea Sulfa (Sulfonamide Antibiotics) Hives Past Surgical History: Procedure Laterality Date ARTHROSCOPIC REPAIR ROTATOR CUFF SHOULDER Right 10/05/2023 Performed by Jeffrey Schilling DO at [facility] BLEPHAROPLASTY OPHTH Bilateral 04/03/2019 Performed by Glenna Egan MD at [facility] BREAST BIOPSY Right 06/12/1991 BURSECTOMY Right right hip COLONOSCOPY N/A 02/18/2022 Performed by Paco Ghosh DO at [facility] COLONOSCOPY N/A 12/24/2016 Performed by Kai Blackwell MD at [facility] HYSTERECTOMY Ovarian CA JOINT REPLACEMENT Bilateral knee replacement OVARY SURGERY ovarian cancer PHACO KELMAN I IMPLANT INTRAOCULAR LENS I-STENT Left 04/18/2018 Performed by Glenna Egan MD at [facility] PHACO KELMAN I IMPLANT INTRAOCULAR LENS I-STENT Right 04/04/2018 Performed by Glenna Egan MD at [facility] REVERSE ARTHROPLASTY TOTAL SHOULDER Right 04/04/2024 Performed by Daniel Wolf MD at [facility] UMBILICAL HERNIA REPAIR Past Medical History: Diagnosis Date Arthritis Back pain Cataract Chronic kidney disease stage 3 Deep vein thrombosis (CMS-HCC) Diabetes mellitus (CMS-HCC) Diabetes mellitus type 2, controlled (CMS-HCC) Fibromyalgia GERD (gastroesophageal reflux disease) Head injury recent fall/ bump on forehead HL (hearing loss) bilat hearing aids Hyperlipidemia Hypertension Infectious viral hepatitis as a child. patient uncertain of type Obesity Ovarian cancer (CMS-HCC) 1994 PONV (postoperative nausea and vomiting) Rotator cuff tear here for preop w/u R scope Visual impairment Social History Tobacco Use Smoking status: Never Smokeless tobacco: Never Vaping Use Vaping status: Never Used Substance Use Topics Alcohol use: No Drug use: No Family History Problem Relation Age of Onset Breast cancer Mother COPD Mother Diabetes Mother Kidney disease Mother Heart disease Father Diabetes Brother Cancer Brother Liver Colon cancer Paternal Aunt Ht 160 cm (5' 3 ) Wt 94.3 kg (208 lb) BMI 36.85 kg/m Body mass index is 36.85 kg/m . Objective: Examination right shoulder incisions well approximated. Healing nicely. No erythema, drainage or signs infection. She has full active range of motion of the fingers wrist and elbow. Actively she can forward flex to 70 Cardiovascular: Normal chest rise and fall. No visible venous distention. Resp: Normal breathing pattern, No obvious wheeze or difficulty breathing. ENT: Normocephalic. eyes equal, round. Throat midline. Mucous membranes appear moist. No visible masses Pysch: Patient is cooperative, pleasant, A&O X3. Appropriate Affect. Imaging: Right shoulder three-view series of x-rays today shows stable appearing reverse total shoulder arthroplasty in excellent alignment. No fractures or dislocation Impression: Status post right reverse total shoulder arthroplasty on 04/04/2024 1st postop visit Plan/Disp: Patient is doing extremely well. She can come out of the sling during the day and use the arm for very light activity. I want her to wear the sling when she is out of the house in sleeping for the next 3-4 weeks. She is going to start physical therapy. 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 Subjective Patient ID: Ashley Wang is a 79 y.o. female who presents for DM Foot Care (Ashley Wang is a 79 y.o. female who presents for DM Foot Care. PCP: Jhon Perea LV: 03/19/2024 A1C: 5.5, BS: 128 SS: 8.5-9). HPI HPI Onychomycosis/Toenail Fungus: established [...] palliative care and topical measures. Risk factors: Type II diabetes. Aspirin therapy. Medical comorbidities. Polypharmacy. Mobility and flexibility restraints. Toenail deformity. Digital and/or shoe trauma and related complications. Aggravated by: shoe gear , pressure , walking; catching and snagging on clothing etc.. Medications Current Outpatient Medications: DULoxetine (Cymbalta) [address] capsule, Take 1 capsule (30 mg) by mouth Daily Do not crush or chew., Disp: 90 capsule, Rfl: 1 alendronate (Fosamax) [...] Take 1 tablet (20 mg) by mouth at bedtime, Disp: 90 tablet, Rfl: 1 Calcium Carbonate-Vitamin [...] as needed at bedtime, Disp: , Rfl: Farxiga 5 MG, Take [...] tablet, as directed Orally, Disp: , Rfl: omeprazole (PriLOSEC) [address] capsule, Take 1 capsule (20 mg) by mouth in the morning. Take before meals., Disp: 90 capsule, Rfl: 1 ondansetron ODT (Zofran-ODT) 4 MG disintegrating tablet, Take 4 mg by mouth every 8 (eight) hours if needed, Disp: , Rfl: OneTouch Ultra test strip, 1 each by Other route if needed, Disp: , Rfl: Allergies Metformin, Other, Semaglutide, Soy allergy (obsolete), Wound dressing adhesive, and Sulfa antibiotics Past [...] adenoidectomy TOTAL KNEE ARTHROPLASTY Bilateral 2012,, 2013 Family History Family History Problem Relation Name Age of Onset Hyperlipidemia Mother Diabetes Mother Hypertension Mother Heart disease Mother Cancer Mother breast cancer Kidney disease Mother Osteoporosis Mother Diabetes Father Hypertension Father Heart disease Father Cancer Sister cervical Cancer Brother Liver cancer Diabetes Brother Objective General Examination: GENERAL EXAMINATION: alert and oriented. Pleasant disposition. Right shoulder sling in place. FOOT EXAM: Date of Last Foot Exam 04/17/2024 Sensory testing performed: sensations normal Sensory and [...] rotator cuff repair right shoulder (September 2023). 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 White or female, presents to [facility] for a pre-surgical H&P for REVERSE ARTHROPLASTY TOTAL SHOULDER RIGHT with Daniel Wolf MD on 04/04/24. The patient has been diagnosed with Pre-Op Diagnosis Codes: * Rotator cuff arthropathy of right shoulder [M12.811] . She complains of right shoulder pain. Onset of right shoulder pain about a year ago when she started quilting. She is right handed. She had right rotator cuff repair in September 2023 and still having shoulder pain. Physical therapy made her pain worse. She has difficulty with ADLs such as dressing and doing her hair. She cannot reach. She has trouble sleeping at night due to pain. She is now getting left shoulder pain. She takes tylenol for pain. Radiographs of her right shoulder demonstrated metallic anchors in the proximal humerus consistent with attempted rotator cuff repair. Proximal migration of the humeral head and degenerative changes suggestive of end-stage rotator cuff tear arthropathy. The patient reports post op nausea and vomiting. Today the patient is in usual state of health and denies acute complaints. Hx of DVT. PAST MEDICAL HISTORY: Past Medical History: Diagnosis Date Arthritis Back pain Cataract Chronic kidney disease stage 3 Deep vein thrombosis (CMS-HCC) Diabetes mellitus ([facility]) Diabetes mellitus type 2, controlled (CMS-HCC) Fibromyalgia GERD (gastroesophageal reflux disease) Head injury recent fall/ bump on forehead HL (hearing loss) bilat hearing aids Hyperlipidemia Hypertension Infectious viral hepatitis as a child. patient uncertain of type Obesity Ovarian cancer ([facility]) 1994 PONV (postoperative nausea and vomiting) Rotator cuff tear here for preop w/u R scope Visual impairment PAST SURGICAL HISTORY: Past Surgical History: Procedure Laterality Date ARTHROSCOPIC REPAIR ROTATOR CUFF SHOULDER Right 10/05/2023 Performed by Jeffrey Schilling DO at [facility] BLEPHAROPLASTY OPHTH Bilateral 04/03/2019 Performed by Glenna Egan MD at [facility] BREAST BIOPSY Right 06/12/1991 BURSECTOMY Right right hip COLONOSCOPY N/A 02/18/2022 Performed by Paco Ghosh DO at [facility] COLONOSCOPY N/A 12/24/2016 Performed by Kai Blackwell MD at [facility] HYSTERECTOMY Ovarian CA JOINT REPLACEMENT Bilateral knee replacement OVARY SURGERY ovarian cancer PHACO KELMAN I IMPLANT INTRAOCULAR LENS I-STENT Left 04/18/2018 Performed by Glenna Egan MD at [facility] PHACO KELMAN I IMPLANT INTRAOCULAR LENS I-STENT Right 04/04/2018 Performed by Glenna Egan MD at [facility] UMBILICAL HERNIA REPAIR FAMILY HISTORY: Family History Problem Relation Age of Onset Breast cancer Mother COPD Mother Diabetes Mother Kidney disease Mother Heart disease Father Diabetes Brother Cancer Brother Liver Colon cancer Paternal Aunt SOCIAL HISTORY: The patient reports no history of alcohol use. She reports that she has never smoked. She has never used smokeless tobacco. She reports no history of drug use. ALLERGIES: Allergies Allergen Reactions Soy Nausea Nausea, rash, eye swelling from an excessive soy diet. Adhesive Tape-Silicones Metformin Other Reaction(s): g/i s/e Semaglutide Diarrhea Sulfa (Sulfonamide Antibiotics) Hives MEDICATIONS: Current Outpatient Medications: amLODIPine (NORVASC) 10 mg tablet, Take 0.5 tablets (5 mg total) by mouth once daily., Disp: , Rfl: 3 ascorbic acid, vitamin C, (VITAMIN C) 1000 mg tablet, Take 1 tablet (1,000 mg total) by mouth in the morning., Disp: , Rfl: aspirin 81 mg, Take 1 tablet (81 mg total) by mouth in the morning., Disp: , Rfl: atorvastatin (LIPITOR) 20 mg tablet, Take 1 tablet (20 mg total) by mouth in the morning., Disp: , Rfl: calcium carbonate-vitamin D3 (OSCAL 500 + D) 500 mg(1,250mg) -200 units per tablet, Take 1 tablet by mouth in the morning and 1 tablet in the evening. Take with meals., Disp: , Rfl: cetirizine (ZyrTEC) 10 mg tablet, TAKE 1 TABLET ONCE A DAY ORALLY 90 DAYS, Disp: , Rfl: 4 cholecalciferol, vitamin D3, 2,000 units capsule, Take 1 capsule (2,000 Units total) by mouth in the morning., Disp: , Rfl: DOCOSAHEXANOIC ACID/EPA (FISH OIL ORAL), Take by mouth daily., Disp: , Rfl: DULoxetine (CYMBALTA) 30 mg capsule, Take 1 capsule (30 mg total) by mouth in the morning., Disp: , Rfl: FARXIGA 5 mg tablet, Take 1 tablet (5 mg total) by mouth in the morning., Disp: , Rfl: ferrous sulfate 325 (65 FE) mg tablet, Take 1 tablet (325 mg total) by mouth in the morning., Disp: , Rfl: gabapentin (NEURONTIN) 100 mg capsule, Take 1 capsule (100 mg total) by mouth once daily., Disp: , Rfl: 4 losartan (COZAAR) 100 mg tablet, Take 1 tablet (100 mg total) by mouth in the morning., Disp: , Rfl: MAGNESIUM CARBONATE ORAL, Take 250 mg by mouth daily., Disp: , Rfl: melatonin tablet, Take by mouth nightly., Disp: , Rfl: meloxicam (MOBIC) 15 mg tablet, Take 1 tablet (15 mg total) by mouth in the morning., Disp: , Rfl: ypadjtxa-btim-OK-calcium &mins (THERAGRAN-M) 9 mg iron-400 mcg tablet, Take 1 tablet by mouth in the morning., Disp: , Rfl: alendronate (FOSAMAX) 70 mg tablet, Take 1 tablet (70 mg total) by mouth every 7 days. In a.m. with water on empty stomach, nothing else by mouth and remain upright for 30min saturdays, Disp: , Rfl: aspirin 81 mg, Take 1 tablet (81 mg total) by mouth in the morning. Begin taking day AFTER total joint replacement., Disp: 30 tablet, Rfl: 0 diphenhydrAMINE-acetaminophen (TYLENOL PM) 25-500 mg tablet, Take 1 tablet by mouth nightly as needed for sleep., Disp: , Rfl: fluticasone (FLONASE) 50 mcg/actuation nasal spray, Administer 1 spray into each nostril as needed., Disp: , Rfl: latanoprost (XALATAN) 0.005 % ophthalmic solution, Administer 1 drop to both eyes nightly., Disp: , Rfl: REVIEW OF SYSTEMS: Review of Systems Constitutional: Negative for fever and chills. HENT: Positive for hearing loss. Negative for congestion and rhinorrhea. Eyes: Positive for visual disturbance. Negative for pain and redness. Respiratory: Negative for cough and shortness of breath. Cardiovascular: Negative for chest pain and palpitations. Gastrointestinal: Negative for nausea, vomiting, abdominal pain and diarrhea. GERD Genitourinary: Negative for dysuria and frequency. Musculoskeletal: Positive for back pain and arthralgias. Skin: Negative for rash and wound. Neurological: Negative for dizziness and headaches. VITAL SIGNS: BP 156/74 Pulse 101 Temp 36.6 C (97.9 F) (Tympanic) Resp 20 Ht 161 cm (5' 3.39 ) Wt 94.5 kg (208 lb 5.4 oz) SpO2 98% BMI 36.46 kg/m PHYSICAL EXAM: Physical Exam Vitals reviewed. Constitutional: Appearance: Normal appearance. HENT: Head: Normocephalic. Comments: Hematoma to left forehead with facial ecchymosis from fallJanuary 2024 Right Ear: Tympanic membrane normal. Left Ear: Tympanic membrane normal. Mouth/Throat: Pharynx: Oropharynx is clear. No oropharyngeal exudate or posterior oropharyngeal erythema. Comments: Mallampati II Eyes: General: Right eye: No discharge. Left eye: No discharge. Conjunctiva/sclera: Conjunctivae normal. Cardiovascular: Rate and Rhythm: Normal rate and regular rhythm. Pulmonary: Effort: Pulmonary effort is normal. Breath sounds: Normal breath sounds. Abdominal: Palpations: Abdomen is soft. Tenderness: There is no abdominal tenderness. Musculoskeletal: General: Tenderness (to right shoulder, decreased ROM of right shoulder) present. Cervical back: Normal range of motion. Right lower leg: No edema. Left lower leg: No edema. Skin: General: Skin is warm and dry. Neurological: General: No focal deficit present. Mental Status: She is alert and oriented to person, place, and time. Psychiatric: Mood and Affect: Mood normal. Behavior: Behavior normal. RECENT LABS: Lab Results Component Value Date INR 1.0 09/27/2023 SODIUM 140 09/27/2023 K 4.0 09/27/2023 CL 103 09/27/2023 CO2 26 09/27/2023 CALCIUM 8.9 09/27/2023 GLU 120 (H) 09/27/2023 CREATININE 1.04 (H) 09/27/2023 BUN 23 09/27/2023 *Please note that labs listed above are the most recent lab values available in [facility] at the time of the office visit and additional labs may have been drawn since that time. ASSESSMENT / DIAGNOSIS: Pre-Op Diagnosis Codes: * Rotator cuff arthropathy of right shoulder [M12.811] PLAN: Ashley Wang is scheduled for REVERSE ARTHROPLASTY TOTAL SHOULDER RIGHT with Daniel Wolf MD on 04/04/24 LORENA Contreras 03/21/24 [id number] [employer] Work Phone: 03-21-2024 History and physical note PRE-ADMISSION TESTING HISTORY AND PHYSICAL EXAM DATE: 03/21/24 PCP: DANA TAPIA APRN-LIZETTE CHIEF COMPLAINT: right shoulder pain HISTORY OF PRESENT ILLNESS: Ashley Wang, a 79 y.o. White or female, presents to [facility] for a pre-surgical H&P for REVERSE ARTHROPLASTY TOTAL SHOULDER RIGHT with Daniel Wolf MD on 04/04/24. The patient has been diagnosed with Pre-Op Diagnosis Codes: * Rotator cuff arthropathy of right shoulder [M12.811] . She complains of right shoulder pain. Onset of right shoulder pain about a year ago when she started quilting. She is right handed. She had right rotator cuff repair in September 2023 and still having shoulder pain. Physical therapy made her pain worse. She has difficulty with ADLs such as dressing and doing her hair. She cannot reach. She has trouble sleeping at night due to pain. She is now getting left shoulder pain. She takes tylenol for pain. Radiographs of her right shoulder demonstrated metallic anchors in the proximal humerus consistent with attempted rotator cuff repair. Proximal migration of the humeral head and degenerative changes suggestive of end-stage rotator cuff tear arthropathy. The patient reports post op nausea and vomiting. Today the patient is in usual state of health and denies acute complaints. Hx of DVT. PAST MEDICAL HISTORY: Past Medical History: Diagnosis Date Arthritis Back pain Cataract Chronic kidney disease stage 3 Deep vein thrombosis ([facility]) Diabetes mellitus ([facility] [place]) Diabetes mellitus type 2, controlled ([facility] [place]) Fibromyalgia GERD (gastroesophageal reflux disease) Head injury recent fall/ bump on forehead HL (hearing loss) bilat hearing aids Hyperlipidemia Hypertension Infectious viral hepatitis as a child. patient uncertain of type Obesity Ovarian cancer ([facility] [place]) 1994 PONV (postoperative nausea and vomiting) Rotator cuff tear here for preop w/u R scope Visual impairment PAST SURGICAL HISTORY: Past Surgical History: Procedure Laterality Date ARTHROSCOPIC REPAIR ROTATOR CUFF SHOULDER Right 10/05/2023 Performed by Jeffrey Schilling DO at [facility] BLEPHAROPLASTY OPHTH Bilateral 04/03/2019 [facility] HOSPITAL BREAST BIOPSY Right 06/12/1991 BURSECTOMY Right right hip COLONOSCOPY N/A 02/18/2022 Performed by Paco Ghosh DO at [facility] COLONOSCOPY N/A 12/24/2016 Performed by Kai Blackwell MD at [facility] HYSTERECTOMY Ovarian CA JOINT REPLACEMENT Bilateral knee replacement OVARY SURGERY ovarian cancer PHACO KELMAN I IMPLANT INTRAOCULAR LENS I-STENT Left 04/18/2018 Performed by Glenna Egan MD at [facility] PHACO KELMAN I IMPLANT INTRAOCULAR LENS I-STENT Right 04/04/2018 Performed by Glenna Egan MD at [facility] UMBILICAL HERNIA REPAIR FAMILY HISTORY: Family History Problem Relation Age of Onset Breast cancer Mother COPD Mother Diabetes Mother Kidney disease Mother Heart disease Father Diabetes Brother Cancer Brother Liver Colon cancer Paternal Aunt SOCIAL HISTORY: The patient reports no history of alcohol use. She reports that she has never smoked. She has never used smokeless tobacco. She reports no history of drug use. ALLERGIES: Allergies Allergen Reactions Soy Nausea Nausea, rash, eye swelling from an excessive soy diet. Adhesive Tape-Silicones Metformin Other Reaction(s): g/i s/e Semaglutide Diarrhea Sulfa (Sulfonamide Antibiotics) Hives MEDICATIONS: Current Outpatient Medications: amLODIPine (NORVASC) 10 mg tablet, Take 0.5 tablets (5 mg total) by mouth once daily., Disp: , Rfl: 3 ascorbic acid, vitamin C, (VITAMIN C) 1000 mg tablet, Take 1 tablet (1,000 mg total) by mouth in the morning., Disp: , Rfl: aspirin 81 mg, Take 1 tablet (81 mg total) by mouth in the morning., Disp: , Rfl: atorvastatin (LIPITOR) 20 mg tablet, Take 1 tablet (20 mg total) by mouth in the morning., Disp: , Rfl: calcium carbonate-vitamin D3 (OSCAL 500 + D) 500 mg(1,250mg) -200 units per tablet, Take 1 tablet by mouth in the morning and 1 tablet in the evening. Take with meals., Disp: , Rfl: cetirizine (ZyrTEC) 10 mg tablet, TAKE 1 TABLET ONCE A DAY ORALLY 90 DAYS, Disp: , Rfl: 4 cholecalciferol, vitamin D3, 2,000 units capsule, Take 1 capsule (2,000 Units total) by mouth in the morning., Disp: , Rfl: DOCOSAHEXANOIC ACID/EPA (FISH OIL ORAL), Take by mouth daily., Disp: , Rfl: DULoxetine (CYMBALTA) 30 mg capsule, Take 1 capsule (30 mg total) by mouth in the morning., Disp: , Rfl: FARXIGA 5 mg tablet, Take 1 tablet (5 mg total) by mouth in the morning., Disp: , Rfl: ferrous sulfate 325 (65 FE) mg tablet, Take 1 tablet (325 mg total) by mouth in the morning., Disp: , Rfl: gabapentin (NEURONTIN) 100 mg capsule, Take 1 capsule (100 mg total) by mouth once daily., Disp: , Rfl: 4 losartan (COZAAR) 100 mg tablet, Take 1 tablet (100 mg total) by mouth in the morning., Disp: , Rfl: MAGNESIUM CARBONATE ORAL, Take 250 mg by mouth daily., Disp: , Rfl: melatonin tablet, Take by mouth nightly., Disp: , Rfl: meloxicam (MOBIC) 15 mg tablet, Take 1 tablet (15 mg total) by mouth in the morning., Disp: , Rfl: uzypaade-xwxl-DX-calcium &mins (THERAGRAN-M) 9 mg iron-400 mcg tablet, Take 1 tablet by mouth in the morning., Disp: , Rfl: alendronate (FOSAMAX) 70 mg tablet, Take 1 tablet (70 mg total) by mouth every 7 days. In a.m. with water on empty stomach, nothing else by mouth and remain upright for 30min saturdays, Disp: , Rfl: aspirin 81 mg, Take 1 tablet (81 mg total) by mouth in the morning. Begin taking day AFTER total joint replacement., Disp: 30 tablet, Rfl: 0 diphenhydrAMINE-acetaminophen (TYLENOL PM) 25-500 mg tablet, Take 1 tablet by mouth nightly as needed for sleep., Disp: , Rfl: fluticasone (FLONASE) 50 mcg/actuation nasal spray, Administer 1 spray into each nostril as needed., Disp: , Rfl: latanoprost (XALATAN) 0.005 % ophthalmic solution, Administer 1 drop to both eyes nightly., Disp: , Rfl: REVIEW OF SYSTEMS: Review of Systems Constitutional: Negative for fever and chills. HENT: Positive for hearing loss. Negative for congestion and rhinorrhea. Eyes: Positive for visual disturbance. Negative for pain and redness. Respiratory: Negative for cough and shortness of breath. Cardiovascular: Negative for chest pain and palpitations. Gastrointestinal: Negative for nausea, vomiting, abdominal pain and diarrhea. GERD Genitourinary: Negative for dysuria and frequency. Musculoskeletal: Positive for back pain and arthralgias. Skin: Negative for rash and wound. Neurological: Negative for dizziness and headaches. VITAL SIGNS: BP 156/74 Pulse 101 Temp 36.6 C (97.9 F) (Tympanic) Resp 20 Ht 161 cm (5' 3.39 ) Wt 94.5 kg (208 lb 5.4 oz) SpO2 98% BMI 36.46 kg/m PHYSICAL EXAM: Physical Exam Vitals reviewed. Constitutional: Appearance: Normal appearance. HENT: Head: Normocephalic. Comments: Hematoma to left forehead with facial ecchymosis from fallJanuary 2024 Right Ear: Tympanic membrane normal. Left Ear: Tympanic membrane normal. Mouth/Throat: Pharynx: Oropharynx is clear. No oropharyngeal exudate or posterior oropharyngeal erythema. Comments: Mallampati II Eyes: General: Right eye: No discharge. Left eye: No discharge. Conjunctiva/sclera: Conjunctivae normal. Cardiovascular: Rate and Rhythm: Normal rate and regular rhythm. Pulmonary: Effort: Pulmonary effort is normal. Breath sounds: Normal breath sounds. Abdominal: Palpations: Abdomen is soft. Tenderness: There is no abdominal tenderness. Musculoskeletal: General: Tenderness (to right shoulder, decreased ROM of right shoulder) present. Cervical back: Normal range of motion. Right lower leg: No edema. Left lower leg: No edema. Skin: General: Skin is warm and dry. Neurological: General: No focal deficit present. Mental Status: She is alert and oriented to person, place, and time. Psychiatric: Mood and Affect: Mood normal. Behavior: Behavior normal. RECENT LABS: Lab Results Component Value Date INR 1.0 09/27/2023 SODIUM 140 09/27/2023 K 4.0 09/27/2023 CL 103 09/27/2023 CO2 26 09/27/2023 CALCIUM 8.9 09/27/2023 GLU 120 (H) 09/27/2023 CREATININE 1.04 (H) 09/27/2023 BUN 23 09/27/2023 *Please note that labs listed above are the most recent lab values available in [facility] at the time of the office visit and additional labs may have been drawn since that time. ASSESSMENT / DIAGNOSIS: Pre-Op Diagnosis Codes: * Rotator cuff arthropathy of right shoulder [M12.811] PLAN: Ashley Wang is scheduled for REVERSE ARTHROPLASTY TOTAL SHOULDER RIGHT with Daniel Wolf MD on 04/04/24 LORENA Contreras 03/21/24 [id number] [facility] Instructions Michell Summers RN - 03/21/2024 1:45 PM EST SURGERY DATE: 04/04/2024 ARRIVAL TIME: 0700am TOTAL KNEE/ HIP/ SHOULDER [facility]: Entrance # [facility] Outpatient Surgery Center next to the Emergency Center. Bring a photo ID and your insurance card with you the day of surgery. If you have a Living Will / Durable Power of [employer] which is not on file, please bring a copy with you the day of surgery. Please wash (tub bath or shower) NIGHT BEFORE surgery. Follow CHG WIPE Instructions. CHG WIPES and written instructions given. DO NOT apply deodorant, powder, lotion, aftershave, perfume, make-up, nail angolan. HOLD ASPIRIN and ASPIRIN PRODUCTS for 7 days prior to surgery. IF you have been prescribed ASPIRIN by your Icu Rn or primary care physician, CONTACT Icu Rn or physician about holding aspirin for surgery. HOLD NSAIDs - Ibuprofen, Motrin, Aleve, Celebrex, mobic, meloxicam, etc. for 3 days prior to surgery. You may use Tylenol. HOLD vitamins, minerals, herbal supplements, and Holistic supplements for 7 days prior to surgery. Examples: Ephedra, garlic, gingko, ginseng, fish oil, (Lovaza, Vascepa), Kava, Vitamin E, Saw [place], [place]'s Wort, [place], Vitamin E). (exceptions - continue taking iron if you are anemic). DIABETIC MEDICATIONS: IF you take INSULIN or have an INSULIN PUMP, contact your prescribing doctor now for instructions on how to manage this the night before and the morning of surgery. IF you take Invokana, Jardiance, Farxiga, HOLD for 3 days prior to surgery. IF you take Ozempic or Trulicity DAILY, HOLD day of surgery. IF you take Ozempic or Trulicity WEEKLY, HOLD 1 week prior to surgery. NOTHING to EAT for 8 hours prior to surgery. You may have CLEAR LIQUIDS up to 4 hours prior to surgery. Clear liquids - something you can see through including: Water, apple juice, Gatorade. NO coffee or tea, NO milk or creamer, NO juice with pulp. If medication must be taken during this fasting period, take medication with a tiny sip of water. MEDICATIONS to take the MORNING of surgery: cetirizine, atorvastatin, gabapentin, amlodipine, duloxetine If you use an INHALER, bring it with you the day of surgery. If you have a SPINAL CORD STIMULATOR, be sure remote is fully charged. BRING remote day of surgery. If you wear DENTURES, DO NOT USE adhesive day of surgery. If you wear HEARING AIDS, WEAR THEM to pre-op on the day of surgery. If you use C-pap or Bi-pap, you may bring it with you day of surgery. Choose a responsible adult to accompany you to the hospital that will be able to: -remain at the hospital during your procedure. -drive you home after your surgery. -stay with you in your home for 24 hours after your procedure. You must NOT drive any vehicle or operate any machinery for 24 hours OR until okay with surgeon. When you dress for your surgery, please wear loose fitting clothing, appropriate for your surgical procedure. Do NOT wear jewelry or watches. ALL piercing's must be removed. Do NOT wear eye contacts to the hospital. Bring glasses if you need them. Anesthesiologist will talk to you the day of the surgery. You will be asked to sign an anesthesia consent form. [facility] History of Present illness Narrative Associated Problem(s): Pre-operative clearance All chronic conditions are stable and under control, she is compliant with meds as well No hx of CAD, EKG on file in office from 08/2023 normal No active sxs suggestive of angina Cleared for shoulder surgery Associated Problem(s): Blurry vision, left eye Resolved, did see her eye doctor as well Told she had broken blood vessel behind both eyes and that bleeding would take about a month to resovle Associated Problem(s): Type 2 diabetes mellitus without complication, without long-term current use of insulin ([facility]) Check blood sugars daily, notify if <70 or >200. Take medications (pills or insulin) as directed. Monitor for s/s of hypoglycemia (sweaty, dizziness, nausea, vomiting, or shakiness). Watch for increase in thirst, urination, or appetite. Inspect feet frequently monitoring for open wounds , and also recommend yearly eye exam. Pt should attempt to remain as physically active as chronic conditions allow, as well as trying to follow a diet low in carbohydrates, and simple sugars. Current meds: metformin and farxiga, as well as statin, asa, and arb A1c 5.5% 03/06/24 Dyllan Mapus Associated Problem(s): Gastroesophageal reflux disease Continues to use PPI, w close monitoring of renal function Associated Problem(s): Essential (primary) hypertension (CMS/HCC) Please check blood pressure daily and record DASH diet Limit caffeine Take medication as directed Contact office if chest pain, pressure, dizziness, shortness of breath, swelling legs Recommend slow position changes Current meds: losartan, amlodipine and asa Images from the original note were not included. Ashley Wang is a 79 y.o. female presents with chief complaint of Hematoma of frontal scalp, sequela HPI: Here for recheck of hematoma to her head: Denies any IBANEZ, dizziness, or blurry vision Is scheduled for shoulder surgery in early Mar 2024 Needs pre op clearance: Surgeries in the past no rxn to anesthesia No hx of DVT/PE, no family hx either HTN , DM and CKD stable SUBJECTIVE: MEDICATIONS: Current Outpatient Medications Medication Instructions [...] mg, Daily atorvastatin (LIPITOR) 20 mg, Oral, Nightly Calcium Carbonate-Vitamin D (CALTRATE 600+D PO) Caltrate [...] tablet Every 24 hours melatonin tablet Nightly Multiple Vitamins-Minerals (One Daily For Women 50+ Adv) tablet as directed Orally omeprazole (PRILOSEC) 20 mg, Oral, Daily before breakfast ondansetron ODT (ZOFRAN-ODT) 4 mg, Every 8 hours PRN OneTouch Ultra test strip 1 each, As needed ALLERGIES: Allergies Allergen Reactions Metformin Other Reaction(s): g/i s/e Other Unknown Semaglutide Diarrhea Soy Allergy (Do Not Select) Unknown Wound Dressing Adhesive Unknown Sulfa Antibiotics [...] myalgias. Skin: Negative for rash and wound. Hematoma to left frontal region Neurological: Negative for dizziness, tremors, seizures, syncope and headaches. Psychiatric/Behavioral: Negative for behavioral problems, self-injury and suicidal ideas. The patient is not nervous/anxious. Hematological: Does not bruise/bleed easily. Endocrine: Negative for polydipsia, polyphagia and polyuria. Allergic/Immunologic: Negative for environmental allergies and food allergies. PAST MEDICAL HISTORY Past Medical History: Diagnosis Date Abnormal mammogram of left breast Age-related osteoporosis without current pathological fracture ([facility]) 02/18/2023 Allergic rhinitis, seasonal Arthritis Bulging lumbar [...] in her mother. OBJECTIVE: Visit Vitals BP 140/80 (BP Location: Left arm, Patient Position: Sitting, BP Cuff Size: Adult long) Pulse 90 Temp 98.5 F (Temporal) Resp 18 Wt 208 lb 6.4 oz SpO2 99% BMI 36.34 kg/m Smoking Status Never BSA 2.06 m Physical Exam Vitals and nursing note reviewed. Constitutional: General: She is not in acute distress. Appearance: Normal appearance. She is obese. She is not ill-appearing. HENT: Head: Atraumatic. Comments: Large left frontal hematoma: softening, minimal tenderness Measures: 5.5cm width, 5cm high, and 3.5cm thick (prior measurements: 8.5x6.5x4.25) Right Ear: Tympanic membrane, ear canal and external ear normal. Left Ear: Tympanic membrane, ear canal and external ear normal. Nose: Nose normal. No congestion or rhinorrhea. Mouth/Throat: Mouth: Mucous membranes are moist. Pharynx: [...] Left lower leg: No edema. Lymphadenopathy: Cervical: No cervical adenopathy. Skin: General: Skin is warm and dry. Capillary Refill: Capillary refill takes 2 to 3 seconds. Findings: No rash. Comments: Fading ecchymosis from hematoma Neurological: General: No focal deficit present. Mental Status: She is alert and oriented to person, place, and time. Cranial Nerves: No cranial nerve deficit. Motor: No weakness. Psychiatric: Mood and Affect: Mood normal. Behavior: Behavior normal. Thought Content: Thought content normal. Judgment: Judgment normal. ASSESSMENT AND PLAN: No follow-ups on file. Problem List Items Addressed This Visit Gastroesophageal reflux disease Continues to use PPI, w close monitoring of renal function Class 2 severe obesity due to excess calories with serious comorbidity and body mass index (BMI) of 36.0 to 36.9 in adult ([facility]) - Primary Discussed with patient their BMI (actual, verses recommended). We have also discussed lifestyle modifications: attempts to perform physical activity as chronic conditions allow, also to monitor dietary intake: increasing protein/fruits/veggies and lowering carb intake (unless contraindicated). Limit sodas, juices, and sugary drinks. Age-related osteoporosis without current pathological fracture ([facility]) Relevant Medications alendronate (Fosamax) 70 MG tablet Type 2 diabetes mellitus without complication, without long-term current use of insulin ([facility]) Check blood sugars daily, notify if <70 or >200. Take medications (pills or insulin) as directed. Monitor for s/s of hypoglycemia (sweaty, dizziness, nausea, vomiting, or shakiness). Watch for increase in thirst, urination, or appetite. Inspect feet frequently monitoring for open wounds , and also recommend yearly eye exam. Pt should attempt to remain as physically active as chronic conditions allow, as well as trying to follow a diet low in carbohydrates, and simple sugars. Current meds: metformin and farxiga, as well as statin, asa, and arb A1c 5.5% 03/06/24 Dyllan Mapus Essential (primary) hypertension ([facility]) Please check blood pressure daily and record DASH diet Limit caffeine Take medication as directed Contact office if chest pain, pressure, dizziness, shortness of breath, swelling legs Recommend slow position changes Current meds: losartan, amlodipine and asa Hematoma of frontal scalp Continue with icing at night Size is lessening Fu in 6 weeks Closed head injury Neg scans (CT head and cervical spine) Cont ice No acute neurological symptoms at this time Body mass index (BMI) 35.0-35.9, adult Blurry vision, left eye Resolved, did see her eye doctor as well Told she had broken blood vessel behind both eyes and that bleeding would take about a month to resovle Associated Problem(s): Hematoma of frontal scalp Continue with icing at night Size is lessening Fu in 6 weeks Associated Problem(s): Closed head injury Neg scans (CT head and cervical spine) Cont ice No acute neurological symptoms at this time Associated Problem(s): Class 2 severe obesity due to excess calories with serious comorbidity and body mass index (BMI) of 36.0 to 36.9 in adult ([facility]) Discussed with patient their BMI (actual, verses recommended). We have also discussed lifestyle modifications: attempts to perform physical activity as chronic conditions allow, also to monitor dietary intake: increasing protein/fruits/veggies and lowering carb intake (unless contraindicated). Limit sodas, juices, and sugary drinks. documented in this encounter [facility] 03-19-2024 Instructions Dana Tapia NP - 03/19/2024 2:20 PM EST Surgical clearance fu in 6 weeks for her AWV documented in this encounter [facility] 03-05-2024 History of Present illness Narrative Associated Problem(s): Blurry vision, left eye Likely secondary to hematoma size and location No acute findings on eye exam today in office If she would like to reach out to her eye doctor for an exam she could do that as well Associated Problem(s): Type 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 (CMS/HCC) Follows with nephrology Continue to keep DM and HTN at goal Headaches have gotten better not as bad. Pt states her vision has gotten blurry in only the left eye since the accident. Images from the original note were not included. Ashley Wang is a 79 y.o. female presents with chief complaint of hematoma HPI: Here for recheck of her scalp hematoma See notes from specialist Is now having some blurred vision in the left eye since the incident happened IBANEZ's are better No dizziness no other complaints of SUBJECTIVE: MEDICATIONS: Current Outpatient Medications Medication Instructions [...] 24 hours cholecalciferol (Vitamin D-3) 50 MCG (1999) tablet Vitamin D3 diphenhydrAMINE-acetaminophen (Tylenol PM) 25-500 [...] (PRILOSEC) 20 mg, Oral, Daily before breakfast ondansetron ODT (ZOFRAN-ODT) 4 mg, Every 8 hours PRN OneTouch Ultra test strip 1 each, As needed ALLERGIES: Allergies Allergen Reactions Metformin Other Reaction(s): g/i s/e Other Unknown Semaglutide Diarrhea Soy Allergy (Do Not Select) Unknown Wound Dressing Adhesive Unknown Sulfa Antibiotics Hives and Rash REVIEW OF SYMPTOMS: Review of Systems Constitutional: Negative for appetite change, chills and fever. HENT: Negative for congestion, ear pain and sore throat. Eyes: Positive for visual disturbance. Negative for pain, discharge and redness. Respiratory: Negative for cough, shortness of breath and wheezing. Cardiovascular: Negative for chest pain, palpitations and leg swelling. Gastrointestinal: Negative for abdominal pain, blood in stool, constipation, diarrhea, nausea and vomiting. Genitourinary: Negative for difficulty urinating, dysuria and frequency. Musculoskeletal: Positive for arthralgias. Negative for back pain, joint swelling and myalgias. Skin: Positive for color change. Negative for rash and wound. Neurological: Positive [...] in her mother. OBJECTIVE: Visit Vitals BP 130/84 (BP Location: Left arm, Patient Position: Sitting, BP Cuff Size: Adult long) Pulse 91 Temp 98.5 F (Temporal) Resp 18 Ht 5' 3.5 Wt 204 lb 12.8 oz SpO2 94% BMI 35.71 kg/m Smoking Status Never BSA 2.04 m Physical Exam Vitals and nursing note reviewed. Constitutional: General: She is not in acute distress. Appearance: Normal appearance. She is obese. She is not ill-appearing. HENT: Head: Normocephalic and atraumatic. Right Ear: Tympanic membrane, ear canal and external ear normal. Left Ear: Tympanic membrane, ear canal and external ear normal. Nose: Nose normal. No congestion or rhinorrhea. Mouth/Throat: Mouth: Mucous membranes are moist. Pharynx: No oropharyngeal exudate or posterior oropharyngeal erythema. Eyes: Extraocular Movements: Extraocular movements intact. Conjunctiva/sclera: Conjunctivae normal. Pupils: Pupils are equal, round, and reactive to light. Cardiovascular: Rate and Rhythm: Normal rate and regular rhythm. Pulses: Normal pulses. Heart sounds: Normal heart sounds. Pulmonary: Effort: Pulmonary effort is normal. Breath sounds: Normal breath sounds. Musculoskeletal: General: Normal range of motion. Cervical back: Normal range of motion and neck supple. Right lower leg: No edema. Left lower leg: No edema. Skin: General: Skin is warm and dry. Capillary Refill: Capillary refill takes 2 to 3 seconds. Findings: Bruising (facial bruising is resolved, hematoma measures: 8.5x6.5 and 4.25cm thick, softer to touch, remains tender as well) present. No rash. Neurological: General: No focal deficit present. Mental Status: She is alert and oriented to person, place, and time. Psychiatric: Mood and Affect: Mood normal. Behavior: Behavior normal. Thought Content: Thought content normal. Judgment: Judgment normal. ASSESSMENT AND PLAN: Follow up in about 2 weeks (around 03/19/2024) for Recheck. Problem List Items Addressed This Visit Class 2 severe obesity due to excess calories with serious comorbidity and body mass index (BMI) of 36.0 to 36.9 in adult ([facility]) Discussed with patient their BMI (actual, verses recommended). We have also discussed lifestyle modifications: attempts to perform physical activity as chronic conditions allow, also to monitor dietary intake: increasing protein/fruits/veggies and lowering carb intake (unless contraindicated). Limit sodas, juices, and sugary drinks. Type 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 ([facility]) Follows with nephrology Continue to keep DM and HTN at goal Hypertensive chronic kidney disease with stage 1 through stage 4 chronic kidney disease, or unspecified chronic kidney disease ([facility]) Continue with nephrology Recommend adequate bp and DM control as well Avoid nephrotoxic drugs IF possible, if taking close monitoring of risk/benefits Essential (primary) hypertension ([facility]) Please check blood pressure daily and record DASH diet Limit caffeine Take medication as directed Contact office if chest pain, pressure, dizziness, shortness of breath, swelling legs Recommend slow position changes Current meds: losartan, amlodipine and asa Malignant neoplasm of unspecified ovary ([facility]) Hysterectomy in the past Hematoma of frontal scalp - Primary See notations about plastics and trauma Does appear to be softening up and thickness is lessening as well Dr martinez exams as well, we did discuss her intermittent blurry vision, this is more towards evening and likely related to size of hematoma and swelling that extends to upper eye lid left Closed head injury Neg scans (CT head and cervical spine) Cont ice No acute neurological symptoms at this time RESOLVED: Chronic kidney disease, stage 3a (HCC) ([facility]) Type 2 diabetes mellitus with diabetic cataract ([facility]) Type 2 diabetes mellitus with diabetic neuropathy, unspecified ([facility]) Continue with glucose control Takes gabapentin and duloxetine RESOLVED: Morbid (severe) obesity due to excess calories ([facility]) Body mass index (BMI) 35.0-35.9, adult Blurry vision, left eye Likely secondary to hematoma size and location No acute findings on eye exam today in office If she would like to reach out to her eye doctor for an exam she could do that as well Associated Problem(s): Hematoma of frontal scalp See notations about plastics and trauma Does appear to be softening up and thickness is lessening as well Dr martinez exams as well, we did discuss her intermittent blurry vision, this is more towards evening and likely related to size of hematoma and swelling that extends to upper eye lid left Associated Problem(s): Closed head injury Neg scans (CT head and cervical spine) Cont ice No acute neurological symptoms at this time Associated Problem(s): Malignant neoplasm of unspecified ovary (CMS/HCC) Hysterectomy in the past Associated Problem(s): Class 2 severe obesity due [...] contraindicated). Limit sodas, juices, and sugary drinks. Associated Problem(s): Hypertensive chronic kidney disease with stage 1 through stage 4 chronic kidney disease, or unspecified chronic kidney disease (CMS/HCC) Continue with nephrology Recommend adequate bp and DM control as well Avoid nephrotoxic drugs IF possible, if taking close monitoring of risk/benefits Associated Problem(s): Essential (primary) hypertension (CMS/HCC) Please check blood pressure daily and record DASH diet Limit caffeine Take medication as directed Contact office if chest pain, pressure, dizziness, shortness of breath, swelling legs Recommend slow position changes Current meds: losartan, amlodipine and asa Associated Problem(s): Type 2 diabetes mellitus with diabetic neuropathy, unspecified ([facility]) Continue with glucose control Takes gabapentin and duloxetine documented in this encounter [facility] 03-05-2024 Instructions Dana Tapia NP - 03/05/2024 2:00 PM EST Continue with ice to affected area, you can also apply neosporin to this as well documented in this encounter [facility] 02-27-2024 History of Present illness Narrative Associated Problem(s): Essential (primary) hypertension ([facility]) Stable today Associated Problem(s): Class 2 severe obesity due to excess calories with serious comorbidity and body mass index (BMI) of 36.0 to 36.9 in adult ([facility]) Discussed with patient their BMI (actual, verses recommended). We have also discussed lifestyle modifications: attempts to perform physical activity as chronic conditions allow, also to monitor dietary intake: increasing protein/fruits/veggies and lowering carb intake (unless contraindicated). Limit sodas, juices, and sugary drinks. Associated Problem(s): Closed head injury Neg scans (CT head and cervical spine) Cont ice No acute neurological symptoms at this time Associated Problem(s): Hematoma of frontal scalp Consider plastics? To releave off pressure from hematoma Continue ice thearpy Images from the original note were not included. Ashley Wang is a 79 y.o. female presents with chief complaint of No chief complaint on file. HPI: S/p fall , tripped over chair fell stiking face no LOC, was seen in [place] [facility] on 02/20/24: CT head and cervical spine Overall is doing pretty well, does report IBANEZ, no nausea, no dizziness, extensive facial bruising, concern over large hematoma over left frontal region, it has grown in size from her ER visit. SUBJECTIVE: MEDICATIONS: Current Outpatient Medications Medication Instructions [...] 24 hours cholecalciferol (Vitamin D-3) 50 MCG (1999) tablet Vitamin D3 diphenhydrAMINE-acetaminophen (Tylenol PM) 25-500 [...] (PRILOSEC) 20 mg, Oral, Daily before breakfast ondansetron ODT (ZOFRAN-ODT) 4 mg, Every 8 hours PRN OneTouch Ultra test strip 1 each, As needed ALLERGIES: Allergies Allergen Reactions Metformin Other Reaction(s): g/i s/e Other Unknown Semaglutide Diarrhea Soy Allergy (Do Not Select) Unknown Wound Dressing Adhesive Unknown Sulfa Antibiotics Hives and Rash REVIEW OF SYMPTOMS: Review of Systems Constitutional: Negative for appetite change, chills and fever. HENT: Positive for facial swelling. Negative for congestion, ear pain and sore throat. Eyes: Positive for redness. Negative for pain, discharge and visual disturbance. Respiratory: Negative for cough, shortness of breath and wheezing. Cardiovascular: Negative for chest pain, palpitations and leg swelling. Gastrointestinal: Negative for abdominal pain, blood in stool, constipation, diarrhea, nausea and vomiting. Genitourinary: Negative for difficulty urinating, dysuria and frequency. Musculoskeletal: Positive for arthralgias. Negative for back pain, joint swelling and myalgias. Skin: Positive for color change. Negative for rash and wound. Neurological: Positive [...] breast Age-related osteoporosis without current pathological fracture ([facility]) 02/18/2023 Allergic rhinitis, seasonal Arthritis Bulging lumbar [...] in her mother. OBJECTIVE: Visit Vitals BP 144/80 (BP Location: Left arm, Patient Position: Sitting, BP Cuff Size: Adult long) Pulse 69 Temp 97.8 F (Temporal) Resp 18 Ht 5' 3.5 Wt 202 lb SpO2 93% BMI 35.22 kg/m Smoking Status Never BSA 2.03 m Physical Exam Vitals and nursing note reviewed. Constitutional: General: She is not in acute distress. Appearance: Normal appearance. She is obese. She is not ill-appearing, toxic-appearing or diaphoretic. HENT: Head: Normocephalic and atraumatic. Right Ear: Tympanic membrane, ear canal and external ear normal. Left Ear: Tympanic membrane, ear canal and external ear normal. Nose: Nose normal. No congestion or rhinorrhea. Mouth/Throat: Mouth: Mucous membranes are moist. Pharynx: No oropharyngeal exudate or posterior oropharyngeal erythema. Eyes: Extraocular Movements: Extraocular movements intact. Pupils: Pupils are equal, round, and reactive to light. Comments: Subconjunctival hemorrhages noted both eyes Periorbital swelling, no orbital tenderness Neck: Vascular: No carotid bruit. Cardiovascular: Rate and Rhythm: Normal rate and regular rhythm. Pulses: Normal pulses. Heart sounds: Normal heart sounds. Pulmonary: Effort: Pulmonary effort is normal. Breath sounds: Normal breath sounds. No wheezing or rales. Abdominal: General: Bowel sounds are normal. There is no distension. Palpations: Abdomen is soft. There is no mass. Tenderness: There is no abdominal tenderness. Musculoskeletal: Cervical back: Normal range of motion and neck supple. Right lower leg: No edema. Left lower leg: No edema. Lymphadenopathy: Cervical: No cervical adenopathy. Skin: General: Skin is warm and dry. Capillary Refill: Capillary refill takes 2 to 3 seconds. Findings: Bruising (extensive facial bruising, swelling about the eyes bilat L>R, large hematoma noted to left frontal region superior to the eye brow region, measures: 7.5X6.5cm in size and approx 5cm thick) present. No rash. Comments: Ecchymosis extends from her fore head down into the base of her anterior neck to level just below thyroid. Also ecchymosis to posterior ear region as well Neurological: General: No focal deficit present. Mental Status: She is alert and oriented to person, place, and time. Cranial Nerves: No cranial nerve deficit. Sensory: No sensory deficit. Gait: Gait normal. Psychiatric: Mood and Affect: Mood normal. Behavior: [...] contraindicated). Limit sodas, juices, and sugary drinks. Essential (primary) hypertension (CMS/HCC) Stable today Hematoma of frontal scalp - Primary Consider plastics? To releave off pressure from hematoma Continue ice thearpy Closed head injury Neg scans (CT head and cervical spine) Cont ice No acute neurological symptoms at this time documented in this encounter [facility] 02-06-2024 History of Present illness Narrative Associated [...] the original note were not included. Ashley Wang is a 79 y.o. female presents with [...] 24 hours cholecalciferol (Vitamin D-3) 50 MCG (1999) tablet Vitamin D3 diphenhydrAMINE-acetaminophen (Tylenol PM) 25-500 [...] (BMI) of 36.0 to 36.9 in adult ([facility]) - Primary Discussed with patient their BMI [...] 875-125 MG tablet documented in this encounter [facility] 02-06-2024 Instructions Dana Tapia NP - 02/06/2024 4:00 PM EST Sinus infection: cool compress to face , antibiotic, fluids, rest Go back to pharmacy and ask for sinus meds for someone with high blood pressure Follow up if not better documented in this encounter [facility] 01-16-2024 History of Present illness Narrative Images from the original note were not included. Subjective Patient ID: Ashley Wang is a 78 y.o. female who presents for Diabetic nail care ( Ashley Wang is a 78 y.o. female who presents for DM Foot Care. PCP: Jhon Perea LV: 10/04/2023. A1C: 5.5, BS: 103 SS: [...] Carlos Baer DPM documented in this encounter [facility] 01-11-2024 History of Present illness Narrative Associated Problem(s): Primary osteoarthritis involving multiple joints Continue meloxicam, needs handicapped placard Associated Problem(s): ODALYS (generalized anxiety disorder) (CMS/HCC) Not worse with change out to duloxetine Fu in 6 weeks Associated Problem(s): Fibromyalgia Cont deangelo and duloxetine at current dose Fu in 6 weeks consider does change if needed Associated Problem(s): Essential (primary) hypertension (CMS/HCC) Please check blood pressure daily and record DASH diet Limit caffeine Take medication as directed Contact office if chest pain, pressure, dizziness, shortness of breath, swelling legs Recommend slow position changes Associated Problem(s): 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 elsewhere (CMS/HCC) Continue with deangelo and duloxetine Pt found out yesterday she is going to have to get her shoulder replaced. Pt has been referred to dr scott for February. She did reach out to another dr, dr wolf at [facility] and she did not need a referral [...] the original note were not included. Ashley Wang is a 78 y.o. female presents with [...] 24 hours cholecalciferol (Vitamin D-3) 50 MCG (1999) tablet Vitamin D3 diphenhydrAMINE-acetaminophen (Tylenol PM) 25-500 [...] (BMI) of 36.0 to 36.9 in adult ([facility]) Discussed with patient their BMI (actual, verses [...] placard Age-related osteoporosis without current pathological fracture ([facility]) Med dose refill UTD on DEXA 02/19 Relevant Medications alendronate (Fosamax) 70 MG tablet Essential (primary) hypertension ([facility]) Please check blood pressure daily and record DASH diet Limit caffeine Take medication as directed Contact office if chest pain, pressure, dizziness, shortness of breath, swelling legs Recommend slow position changes Relevant Medications amLODIPine (Norvasc) 5 MG tablet losartan (Cozaar) 100 MG tablet 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 elsewhere ([facility]) Continue with deangelo and duloxetine ODALYS (generalized anxiety disorder) ([facility]) Not worse with change out to duloxetine Fu in 6 weeks Associated Problem(s): Age-related osteoporosis without current pathological fracture ([facility]) Med dose refill UTD on DEXA 02/19 Associated Problem(s): Class 2 severe obesity due to excess calories with serious comorbidity and body mass index (BMI) of 36.0 to 36.9 in adult ([facility]) Discussed with patient their BMI (actual, verses [...] for weight loss. documented in this encounter [facility] 01-11-2024 Instructions Dana Tapia NP - 01/11/2024 2:20 PM EST Keep all doses of meds the same documented in this encounter [facility] 01-10-2024 History of Present illness Narrative Images from the original note were not included. HISTORY OF PRESENT ILLNESS: Ashley Wang is an 78 y.o. @ female. Chief [...] same time. cholecalciferol (Vitamin D-3) 50 MCG (2000 UT) [...] IMAGING: June 23, 2023 x-rays from the [place] office AP axillary and Y scapula of [...] if she desires a referral to another account specialist we would be happy to make referral, she states she would like to continue her care here. Tresa Schilling D.O. documented in this encounter [facility] 01-06-2024 History of Present illness Narrative Physical Therapy Physical Therapy Treatment Visit Patient Name: Ashley Wang Today's Date: 01/06/2024 Encounter Diagnoses Name Primary? Acute pain of right shoulder Yes Shoulder stiffness, right Visit number: 13 Sup time: 38 min Total time: 55 min Time in: 7:15 am Time out: 8:10 am Subjective Ashley Wang 78 y.o. female presents to physical therapy w/ chief c/o R shoulder pain and weakness, very limited functional use Mechanism of Onset: s/p RCR 10/05/23, about 6 months of significant pain and severe limitations prior to SX Current deficits: pain, decreased ROM/flexibility, significant weakness Pain: 05/07 ant shoulder pain down bicep this a.m. had some mod to severe pain 2 days ago at desk at work just doing paper work pt to RTD 01/10/24 probable injection. 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 documented in this encounter [facility] 01-05-2024 History of Present illness Narrative Images from the original note were not included. HISTORY OF PRESENT ILLNESS: Ashley Wang is an 78 y.o. @ female. po [...] develop for requiring urgent evaluation. May Pulido APRN-LIZETTE documented in this encounter [facility] 01-02-2024 History of Present illness Narrative Physical Therapy Physical Therapy Treatment Visit Patient Name: Ashley Wang Today's Date: 01/02/2024 Encounter Diagnoses Name Primary? Acute pain of right shoulder Yes Shoulder stiffness, right Visit number: 12 Sup time: 40 min Total time: 58 min Time in: 7:32 am Time out: 8:30 am Subjective Ashley Wang 78 y.o. 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 Physical Therapy Physical Therapy Evaluation Visit Patient Name: Ashley Wang Today's Date: 12/19/2023 Encounter Diagnoses Name Primary? Acute pain of right shoulder Yes Shoulder stiffness, right Visit number: 8 Sup time: 40 min Total time: 56 min Time in: 7:00 am Time out: 7:56 am Subjective Ashley Wang 78 y.o. 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 Physical Therapy Physical Therapy Evaluation Visit Patient Name: Ashley Wang Today's Date: 12/14/2023 Encounter Diagnoses Name Primary? Acute pain of right shoulder Yes Shoulder stiffness, right Visit number: 6 Sup time: 42 min Total time: 60 min Time in: 7:30 am Time out: 8:30 am Subjective Ashley Wang 78 y.o. 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 Precautions: A/P ROM no strengthening [...] for pain relief documented in this encounter [facility] 12-12-2023 Evaluation note Diagnosis Onset Date Resolution CKD (chronic kidney disease) stage 3, GFR 30-59 ml/min acute December 12, 2023 2:14pm Hypertensive chronic kidney disease with stage 1 through stage 4 chronic ki acute Octob er 2023 2:14pm Hypomagnesemia acute December 112023 2:14pm Iron deficiency acute November 282023 2:14pm Secondary hyperparathyroidism acute November 2:14pm Type 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 acute December 12, 2023 2:14pm Vitamin D deficiency acute Octo dipesh 2023 2:14pm Dietary counseling and surveillance acute March 06 2:03pm Hyperlipidemia acute February 2:03pm Hypertension acute March 06, 2024 2:03pm Obesity, Class II, BMI 35-39.9 acute March 06 2:03pm Type 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 acute March 06 2:03pm [facility] Work Phone: [phone]) 129-256910-14-2024 History of Present illness Narrative* May Pulido NP - 12/12/2023 8:30 AM EDT Images from the original note were not included. HISTORY OF PRESENT ILLNESS: Ashley Wang is an 78 y.o. @ female. S/p PT at [facility] po x 9 weeks 5 days s/p [...] elbow wrist and fingers in all anatomic planeswith 5 out of 5 strength on the [...] develop for requiring urgent evaluation. May Pulido, TEST FIXTURE ASSEMBLER-INSIDE UPHOLSTERER documented in this encounterC[facility] [id number] History of Present illness Narrative* Leo Goodwin, PT - 11/30/2023 7:00 AM EDT Images from the original note were not included. Physical Therapy Physical Therapy Evaluation Visit Patient Name: Ashley Wnag Today's Date: 11/30/2023 Encounter Diagnoses Name Primary? 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 documented in this encounterCarondelet [id number] History of Present illness Narrative* Dana Tapia NP - 11/28/2023 2:36 PM EDTAssociated Problem(s): ODALYS (generalized anxiety disorder) ([facility]) Stop with use of sertraline Start duloxetine [...] Please contact the office if these occur. * Dana Tapia NP - 11/28/2023 2:36 PM EDTAssociated Problem(s): Type 2 diabetes mellitus without complication, without long-term current useof insulin ([facility]) Continue with Dyllan Mapus * Dana Tapia NP - 11/28/2023 2:36 PM EDTAssociated Problem(s): Fibromyalgia Will see if addition of duloxetine helps * Dana Tapia NP - 11/28/2023 2:35 PM EDTAssociated Problem(s): Essential (primary) hypertension (CMS/HCC) Stable on current med dose, and no changes Gets labs per Nephrology regularly * Dana Tapia NP - 11/28/2023 2:34 PM EDTAssociated Problem(s): 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 elsewhere (CMS/HCC) Continue deangelo at 100mg daily Will add duloxetine to see if this helps as well * JOSÉ EL - 11/28/2023 2:00 PM EDT Pt does need a refill on her gabapentin 100mg Pt is still having quite a bit of pain, both knees cause her trouble on a daily. She stated she was on gabapentin 3x daily. She also has rotar cuff and has started therapy- which has increased pain She is taking extra strength tylenol during the day. * Dana Tapia NP - 11/28/2023 2:00 PM EDT Images from the original note were not included. Ashley Wang is a 78 y.o. female presents with [...] are no associated agents to hypertension. Risk factorsfor coronary artery disease include diabetes mellitus, dyslipidemia, obesity, sedentary lifestyle an d post-menopausal state. Past treatments include calcium channel blockers and angiotensin blockers.The current treatment provides significant improvement. There are no compliance problems. SUBJECTIVE: MEDICATIONS: Current Outpatient Medications Medication Instructions alendronate (FOSAMAX) 70 mg, Oral, Every 7 days, Take in the morning with a full glass of water, alexander empty stomach, and do not take anything [...] mother, and sister; Diabetes in her brother, father,and mother; Heart disease in her father and [...] complication, without long-term current use of insulin ([facility]) Continue with Dyllan Mapus Essential (primary) hypertension ([facility]) - Primary Stable on current med dose, and no changes Gets labs per Nephrology regularly 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 elsewhere ([facility]) Continue deangelo at 100mg daily Will add duloxetine to see if this helps as well Relevant Medications DULoxetine (Cymbalta) [address] capsule ODALYS (generalized anxiety disorder) ([facility]) Stop with use of sertraline Start duloxetine [...] [address] capsule documented in this encounterCarondelet [id number] History of Present illness Narrative* Leo Miguelina Goodwin, PT - 11/24/2023 12:30 PM EDT Images from the original note were not included. Physical Therapy Physical Therapy Evaluation Visit Patient Name: Ashley Wang Today's Date: 11/24/2023 Encounter Diagnoses Name Primary? Acute pain of right shoulder Yes Shoulder stiffness, right Visit number: 1 Subjective Ashley Wang 78 y.o. 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 Date: documented in this encounterCarondelet [id number] History of Present illness Narrative* May Pulido NP - 11/14/2023 8:30 AM EDT Images from the original note were not included. HISTORY OF PRESENT ILLNESS: Ashley Wang is an 78 y.o. @ female. po x 5 weeks 5 days s/p RT RCR 10/05/23. Doing HEP. Denies pain. Taking tramadol at HS due to rollingon RT side. Denies N/T, swelling. Occas popping [...] elbow wrist and fingers in all anatomic planeswith 5 out of 5 strength on the [...] still having limited AROM. I recommend that patientstart PT working on ROM but no strengthening until 12 weeks PO. She will follow up in 4 weeks for RCK. Patient verabalized understading. Questions answered in laymen terms at the bedside. If unable to be reached in office, I recommend evaluation at nearest Emergency Room if any symptoms worsened ornew symptoms develop for requiring urgent evaluation. May Pulido, WANG-INSIDE UPHOLSTERER documented in this encounterCarondelet [id number] History of Present illness Narrative* Carlos Baer DPM - 04/13/2023 2:15 PM EST Images from the original note were not included. Subjective Patient ID: Ashley Wang is a 78 y.o. female who presents for Nail care ( Ashley Wang is a 77 y.o. female who presents for Nail care. BS 120 A1C 6.0 (03/2023) LV Dr. Jhon Perea 04/05/2023SS: 8.5-9).). HPI HPI Onychomycosis/Toenail Fungus: established pt [...] rectum every 6 (six) hours if needed formild pain or fever., Disp: , Rfl: alendronate (Fosamax) 70 MG tablet, Take 1 tablet (70 mg) by mouth every 7 (seven) days for 28 daysTake in the morning with a full glass [...] , Rfl: cholecalciferol (Vitamin D-3) 50 MCG (1999 [place]) tablet, Vitamin D3, Disp: , Rfl: [...] palliative care measures are preferred, understood and againindicated. Agreeable to continue topical therapy: Use of [...] understanding. Carlos Baer DPM documented in this [facility]02-14-2024 Instructions* Patient Instructions* Carlos Baer DPM - 04/13/2023 2:15 PM EST Topical care measures as noted documented in this [facility]10-17-2023 Evaluation note* Encounter Date Diagnosis Assessment Notes [...] due to the PPI. Continue oral magnesium Violet Grey Other 08-02-2023 Evaluation note* Encounter Date Diagnosis [...] hyperglycemia, or diabetes medication issues. 6. Prescriptions: [place] PAP-Farxiga; 7. Prescriptions will not be filled [...] it easier material was printed see above Violet Grey Other 04-11-2023 Evaluation note* Encounter Date Diagnosis [...] due to the PPI. Continue oral magnesium Violet Grey Other 02-01-2023 Evaluation note* Encounter Date Diagnosis [...] One Touch Test Strips sent to [facility] 03/31/22 7. 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 Continue oral magnesium Violet Grey Other 07-27-2022 Evaluation note* Encounter Date Diagnosis [...] few days, discuss your symptoms with your home service consultant. Follow-up with your family physician if no improvement in 2 to 3 days. Go to the ER for worsening symptoms or concerns Aug, Other General allergi c reactions home care material was printed Violet Grey Other 04-26-2022 Evaluation note* Encounter Date Diagnosis [...] it easier material was printed see above Violet Grey Other 04-20-2022 Evaluation note* Encounter Date Diagnosis [...] within the goal. Continue oral vitamin D. Violet Grey Other 04-12-2022 Evaluation note* Encounter Date Diagnosis Assessment Notes Treatment Notes Treatment Clinical Notes May, Type 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 (ICD-10 - E11.22) Violet Grey Other 10-26-2021 Evaluation note* Encounter Date Diagnosis [...] within the goal. Continue oral vitamin D. Violet Grey Other 10-20-2021 Evaluation note* Encounter Date Diagnosis [...] it easier material was printed see above Violet Grey Other 10-08-2021 Evaluation note* Encounter Date Diagnosis Assessment Notes Treatment Notes Treatment Clinical Notes Nov, Encounter for immunization (ICD-10 - Z23) Patient presents for COVID-19 vaccination BOOSTER. Pre-screening form answers evaluated with patient. Patient denies current illness or allergic reaction to component of COVID-19 vaccine. Patient provided with current copy of EUA. Violet Grey Other Chief complaint+Reason for visit Narrative* Chief Complaint 6 month f/u / meter Reason for Visit Dietary counseling a nd surveillance Hyperlipidemia Hypertension Type 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 [facility] Work Phone: Evaluation noteNo InformationNort [employer] Other Evaluation note* Diagnosis Dermatophytosis of nail- Primary Dystrophic nail Other specified disease of nail Pain around toenail, right foot Pain around toenail, left foot documented in this encounter [facility] HealthcareEvaluation noteNo assessment information availableC[facility] Work Phone: Evaluation note* Diagnosis Onset Date Resolution Status CKD (chronic kidney disease) stage 3, GFR 30-59 ml/min acute [id number] acute Hypomagnesemia acute Iron deficiency acute Secondary [...] Shoulder stiffness, right documented in this encounter [facility] HealthcareEvaluation note* Diagnosis Acute pain of right shoulder- Primary Shoulder stiffness, right documented in this encounter [facility] HealthcareEvaluation note* Diagnosis Acute pain of right shoulder- Primary Shoulder stiffness, right documented in this encounter [facility] HealthcareEvaluation note* Diagnosis Acute pain of right shoulder- Primary Shoulder stiffness, right documented in this encounter [facility] HealthcareEvaluation note* Diagnosis Onset Date Resolution Status BMI 34.0-34.9,adult acute Dietary counseling and surveillance acute Hyperlipidemia acute Hypertension acute Type 2 diabetes mellitus wit h diabetic chronic kidney disease acute CKD (chronic kidney disease) stage 3, GFR 30-59 ml/min acute [id number] acute Hypomagnesemia acute Iron deficiency acute Secondary hyperparathyroidism acute Type 2 diabetes mellitus wit h diabetic chronic kidney disease acute Vitamin D deficiency acute [facility] Work Phone: Evaluation note* Diagnosis Benign essential HTN (CMS/HCC)- Primary Gastroesophageal reflux disease without esophagitis Esophageal reflux Stage 3 chronic kidney disease, unspecified whether stage 3a or 3b CKD (HCC) ([facility]) Class 2 severe obesity due to excess calories with serious comorbidity and body mass index (BMI) of 36.0 to 36.9 in adult ([facility]) Menopause Symptomatic menopausal or female climacteric states Encounter for screening mammogram for malignant neoplasm of breast Encounter for subsequent annual wellness visit (AWV) in Medicare patient- Primary Benign essential HTN (CMS/HCC) Gastroesophageal reflux disease without esophagitis Esophageal reflux Stage 3 chronic kidney disease, unspecified whether stage 3a or 3b CKD (HCC) ([facility]) 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, without long-term current use of insulin, unspecified whether stage 3a or 3b CKD (HCC) ([facility]) Acute pain of right shoulder- Primary Class 2 severe obesity due to excess calories with serious comorbidity and body mass index (BMI) of 36.0 to 36.9 in adult ([facility]) Primary osteoarthritis involving multiple joints Preoperative clearance- Primary Unspecified pre-operative examination Type 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 ([facility]) Malignant neoplasm of unspecified ovary ([facility]) 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 elsewhere ([facility]) Secondary hyperparathyroidism of renal origin ([facility]) Secondary hyperparathyroidism (of renal origin) Hypertensive chronic kidney disease with stage 1 through stage 4 chronic kidney disease, or unspecified chronic kidney disease ([facility]) Age-related osteoporosis without current pathological fracture ([facility]) Essential (primary) hypertension ([facility]) Unspecified essential hypertension Type 2 diabetes mellitus with diabetic neuropathy, unspecified ([facility]) Secondary hyperparathyroidism ([facility]) Secondary hyperparathyroidism (of renal origin) Acute pain of right shoulder Essential (primary) hypertension ([facility])- Primary Unspecified essential hypertension Fibromyalgia Unspecified myalgia and myositis 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 elsewhere ([facility]) ODALYS (generalized anxiety disorder) ([facility]) Generalized anxiety disorder Type 2 diabetes mellitus without complication, without long-term current use of insulin ([facility]) Status post right rotator cuff repair- Primary documented in this encounter [facility] HealthcareEvaluation note* Diagnosis Benign essential HTN ([facility])- Primary Gastroesophageal reflux disease without esophagitis Esophageal reflux Stage 3 chronic kidney disease, unspecified whether stage 3a or 3b CKD (HCC) ([facility]) Class 2 severe obesity due to excess calories with serious comorbidity and body mass index (BMI) of 36.0 to 36.9 in adult ([facility]) Menopause Symptomatic menopausal or female climacteric states Encounter for screening mammogram for malignant neoplasm of breast Encounter for subsequent annual wellness visit (AWV) in Medicare patient- Primary Benign essential HTN ([facility]) Gastroesophageal reflux disease without esophagitis Esophageal reflux Stage 3 chronic kidney disease, unspecified whether stage 3a or 3b CKD (HCC) ([facility]) 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, without long-term current use of insulin, unspecified whether stage 3a or 3b CKD (HCC) ([facility]) Acute pain of right shoulder- Primary Class 2 severe obesity due to excess calories with serious comorbidity and body mass index (BMI) of 36.0 to 36.9 in adult ([facility]) Primary osteoarthritis involving multiple joints Preoperative clearance- [...] (CMS/HCC) Age-related osteoporosis without current pathological fracture ([facility]/HCC) Essential (primary) hypertension (CMS/HCC) Unspecified essential hypertension Type 2 diabetes mellitus with diabetic neuropathy, unspecified (CMS/HCC) Secondary hyperparathyroidism (CMS/HCC) Secondary hyperparathyroidism (of renal origin) Acute pain of right shoulder Essential (primary) hypertension (CMS/HCC)- Primary Unspecified essential hypertension Fibromyalgia Unspecified myalgia and myositis 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 elsewhere (CMS/HCC) ODALYS (generalized anxiety disorder) ([facility]) Generalized anxiety disorder Type 2 diabetes mellitus without complication, without long-term current use of insulin ([facility]) Acute pain of right shoulder- Primary Shoulder stiffness, right documented in this encounter [facility] HealthcareEvaluation note* Diagnosis Benign essential HTN (CMS/HCC)- Primary Gastroesophageal reflux disease without esophagitis Esophageal reflux Stage 3 chronic kidney disease, unspecified whether stage 3a or 3b CKD (HCC) ([facility]/HCC) Class 2 severe obesity due to excess calories with serious comorbidity and body mass index (BMI) of 36.0 to 36.9 in adult ([facility]) Menopause Symptomatic menopausal or female climacteric states Encounter for screening mammogram for malignant neoplasm of breast Encounter for subsequent annual wellness visit (AWV) in Medicare patient- Primary Benign essential HTN ([facility]/HCC) Gastroesophageal reflux disease without esophagitis Esophageal reflux Stage 3 chronic kidney disease, unspecified whether stage 3a or 3b CKD (HCC) ([facility]/HCC) 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, without long-term current use of insulin, unspecified whether stage 3a or 3b CKD (HCC) (CMS/HCC) Acute pain of right shoulder- Primary Class 2 severe obesity due to excess calories with serious comorbidity and body mass index (BMI) of 36.0 to 36.9 in adult ([facility]) Primary osteoarthritis involving multiple joints Preoperative clearance- Primary Unspecified pre-operative examination Type 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 (CMS/HCC) Malignant neoplasm of unspecified ovary (CMS/HCC) 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 elsewhere ([facility]/HCC) Secondary hyperparathyroidism of renal origin ([facility]/HCC) Secondary hyperparathyroidism (of renal origin) Hypertensive chronic kidney disease with stage 1 through stage 4 chronic kidney disease, or unspecified chronic kidney disease ([facility]/HCC) Age-related osteoporosis without current pathological fracture ([facility]) Essential (primary) hypertension (CMS/HCC) Unspecified essential hypertension Type 2 diabetes mellitus with diabetic neuropathy, unspecified ([facility]/HCC) Secondary hyperparathyroidism ([facility]/HCC) Secondary hyperparathyroidism (of renal origin) Acute pain of right shoulder Essential (primary) hypertension (CMS/HCC)- Primary Unspecified essential hypertension Fibromyalgia Unspecified myalgia and myositis 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 elsewhere ([facility]/HCC) ODALYS (generalized anxiety disorder) ([facility]) Generalized anxiety disorder Type 2 diabetes mellitus without complication, without long-term current use of insulin ([facility]) Arthropathy, unspecified Unspecified osteoarthritis, unspecified site documented in this encounter [facility] HealthcareEvaluation note* Diagnosis Benign essential HTN ([facility]/HCC)- Primary Gastroesophageal reflux disease without esophagitis Esophageal reflux Stage 3 chronic kidney disease, unspecified whether stage 3a or 3b CKD (HCC) ([facility]) Class 2 severe obesity due to excess calories with serious comorbidity and body mass index (BMI) of 36.0 to 36.9 in adult ([facility]) Menopause Symptomatic menopausal or female climacteric states Encounter for screening mammogram for malignant neoplasm of breast Encounter for subsequent annual wellness visit (AWV) in Medicare patient- Primary Benign essential HTN ([facility]/HCC) Gastroesophageal reflux disease without esophagitis Esophageal reflux Stage 3 chronic kidney disease, unspecified whether stage 3a or 3b CKD (HCC) ([facility]) 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, without long-term current use of insulin, unspecified whether stage 3a or 3b CKD (HCC) ([facility]/HCC) Acute pain of right shoulder- Primary Class 2 severe obesity due to excess calories with serious comorbidity and body mass index (BMI) of 36.0 to 36.9 in adult ([facility]) Primary osteoarthritis involving multiple joints Preoperative clearance- Primary Unspecified pre-operative examination Type 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 ([facility]/HCC) Malignant neoplasm of unspecified ovary (CMS/HCC) 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 elsewhere ([facility]/HCC) Secondary hyperparathyroidism of renal origin (CMS/HCC) Secondary hyperparathyroidism (of renal origin) Hypertensive chronic kidney disease with stage 1 through stage 4 chronic kidney disease, or unspecified chronic kidney disease ([facility]/HCC) Age-related osteoporosis without current pathological fracture ([facility]) Essential (primary) hypertension ([facility]/HCC) Unspecified essential hypertension Type 2 diabetes mellitus with diabetic neuropathy, unspecified ([facility]) Secondary hyperparathyroidism ([facility]/HCC) Secondary hyperparathyroidism (of renal origin) Acute pain of right shoulder Essential (primary) hypertension ([facility]/HCC)- Primary Unspecified essential hypertension Fibromyalgia Unspecified myalgia and myositis 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 elsewhere ([facility]) ODALYS (generalized anxiety disorder) ([facility]) Generalized anxiety disorder Type 2 diabetes mellitus without complication, without long-term current use of insulin ([facility]) Acute pain of right shoulder- Primary Shoulder stiffness, right documented in this encounter [facility] HealthcareEvaluation note* Diagnosis Benign essential HTN (CMS/HCC)- Primary Gastroesophageal reflux disease without esophagitis Esophageal reflux Stage 3 chronic kidney disease, unspecified whether stage 3a or 3b CKD (HCC) ([facility]) Class 2 severe obesity due to excess calories with serious comorbidity and body mass index (BMI) of 36.0 to 36.9 in adult ([facility]) Menopause Symptomatic menopausal or female climacteric states Encounter for screening mammogram for malignant neoplasm of breast Encounter for subsequent annual wellness visit (AWV) in Medicare patient- Primary Benign essential HTN ([facility]/HCC) Gastroesophageal reflux disease without esophagitis Esophageal reflux Stage 3 chronic kidney disease, unspecified whether stage 3a or 3b CKD (HCC) ([facility]) 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, without long-term current use of insulin, unspecified whether stage 3a or 3b CKD (HCC) ([facility]) Acute pain of right shoulder- Primary Class 2 severe obesity due to excess calories with serious comorbidity and body mass index (BMI) of 36.0 to 36.9 in adult ([facility]) Primary osteoarthritis involving multiple joints Preoperative clearance- Primary Unspecified pre-operative examination Type 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 ([facility]/HCC) Malignant neoplasm of unspecified ovary ([facility]) 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 elsewhere ([facility]) Secondary hyperparathyroidism of renal origin ([facility]/HCC) Secondary hyperparathyroidism (of renal origin) Hypertensive chronic kidney disease with stage 1 through stage 4 chronic kidney disease, or unspecified chronic kidney disease ([facility]/HCC) Age-related osteoporosis without current pathological fracture ([facility]/HCC) Essential (primary) hypertension ([facility]) Unspecified essential hypertension Type 2 diabetes mellitus with diabetic neuropathy, unspecified ([facility]) Secondary hyperparathyroidism ([facility]/HCC) Secondary hyperparathyroidism (of renal origin) Acute pain of right shoulder Essential (primary) hypertension (CMS/HCC)- Primary Unspecified essential hypertension Fibromyalgia Unspecified myalgia and myositis 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 elsewhere ([facility]) ODALYS (generalized anxiety disorder) ([facility]) Generalized anxiety disorder Type 2 diabetes mellitus without complication, without long-term current use of insulin ([facility]) Acute pain of right shoulder- Primary Shoulder stiffness, right documented in this encounter [facility] HealthcareEvaluation note* Diagnosis Benign essential HTN ([facility])- Primary Gastroesophageal reflux disease without esophagitis Esophageal reflux Stage 3 chronic kidney disease, unspecified whether stage 3a or 3b CKD (HCC) ([facility]) Class 2 severe obesity due to excess calories with serious comorbidity and body mass index (BMI) of 36.0 to 36.9 in adult ([facility]) Menopause Symptomatic menopausal or female climacteric states Encounter for screening mammogram for malignant neoplasm of breast Encounter for subsequent annual wellness visit (AWV) in Medicare patient- Primary Benign essential HTN ([facility]) Gastroesophageal reflux disease without esophagitis Esophageal reflux Stage 3 chronic kidney disease, unspecified whether stage 3a or 3b CKD (HCC) ([facility]) 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, without long-term current use of insulin, unspecified whether stage 3a or 3b CKD (HCC) ([facility]) Acute pain of right shoulder- Primary Class 2 severe obesity due to excess calories with serious comorbidity and body mass index (BMI) of 36.0 to 36.9 in adult ([facility]) Primary osteoarthritis involving multiple joints Preoperative clearance- Primary Unspecified pre-operative examination Type 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 ([facility]) Malignant neoplasm of unspecified ovary ([facility]) 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 elsewhere ([facility]) Secondary hyperparathyroidism of renal origin ([facility]) Secondary hyperparathyroidism (of renal origin) Hypertensive chronic kidney disease with stage 1 through stage 4 chronic kidney disease, or unspecified chronic kidney disease ([facility]) Age-related osteoporosis without current pathological fracture (CMS/HCC) Essential (primary) hypertension (CMS/HCC) Unspecified essential hypertension Type 2 diabetes mellitus with diabetic neuropathy, unspecified ([facility]CC) Secondary hyperparathyroidism (CMS/HCC) Secondary hyperparathyroidism (of renal origin) Acute pain of right shoulder Essential (primary) hypertension (CMS/HCC)- Primary Unspecified essential hypertension Fibromyalgia Unspecified myalgia and myositis 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 elsewhere ([facility]/HCC) ODALYS (generalized anxiety disorder) ([facility]) Generalized anxiety disorder Type 2 diabetes mellitus without complication, without long-term current use of insulin ([facility]) Acute pain of right shoulder- Primary Shoulder stiffness, right documented in this encounter [facility] HealthcareEvaluation note* Diagnosis Benign essential HTN (CMS/HCC)- Primary Gastroesophageal reflux disease without esophagitis Esophageal reflux Stage 3 chronic kidney disease, unspecified whether stage 3a or 3b CKD (HCC) ([facility]) Class 2 severe obesity due to excess calories with serious comorbidity and body mass index (BMI) of 36.0 to 36.9 in adult ([facility]) Menopause Symptomatic menopausal or female climacteric states Encounter for screening mammogram for malignant neoplasm of breast Encounter for subsequent annual wellness visit (AWV) in Medicare patient- Primary Benign essential HTN ([facility]/HCC) Gastroesophageal reflux disease without esophagitis Esophageal reflux Stage 3 chronic kidney disease, unspecified whether stage 3a or 3b CKD (HCC) ([facility] [place]) 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, without long-term current use of insulin, unspecified whether stage 3a or 3b CKD (HCC) ([facility]/HCC) Acute pain of right shoulder- Primary Class 2 severe obesity due to excess calories with serious comorbidity and body mass index (BMI) of 36.0 to 36.9 in adult ([facility] [place]) Primary osteoarthritis involving multiple joints Preoperative clearance- Primary Unspecified pre-operative examination Type 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 (CMS/HCC) Malignant neoplasm of unspecified ovary (CMS/HCC) 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 elsewhere ([facility] [place]) Secondary hyperparathyroidism of renal origin ([facility]/HCC) Secondary hyperparathyroidism (of renal origin) Hypertensive chronic kidney disease with stage 1 through stage 4 chronic kidney disease, or unspecified chronic kidney disease ([facility]/HCC) Age-related osteoporosis without current pathological fracture ([facility]/HCC) Essential (primary) hypertension ([facility]/HCC) Unspecified essential hypertension Type 2 diabetes mellitus with diabetic neuropathy, unspecified (CMS/HCC) Secondary hyperparathyroidism (CMS/HCC) Secondary hyperparathyroidism (of renal origin) Acute pain of right shoulder Essential (primary) hypertension (CMS/HCC)- Primary Unspecified essential hypertension Fibromyalgia Unspecified myalgia and myositis 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 elsewhere ([facility]/HCC) ODALYS (generalized anxiety disorder) ([facility] [place]) Generalized anxiety disorder Type 2 diabetes mellitus without complication, without long-term current use of insulin ([facility] [place]) Gastro-esophageal reflux disease without esophagitis Esophageal reflux documented in this encounter [facility] HealthcareEvaluation note* Diagnosis Benign essential HTN (CMS/HCC)- Primary Gastroesophageal reflux disease without esophagitis Esophageal reflux Stage 3 chronic kidney disease, unspecified whether stage 3a or 3b CKD (HCC) ([facility] [place]) Class 2 severe obesity due to excess calories with serious comorbidity and body mass index (BMI) of 36.0 to 36.9 in adult ([facility] [place]) Menopause Symptomatic menopausal or female climacteric states Encounter for screening mammogram for malignant neoplasm of breast Encounter for subsequent annual wellness visit (AWV) in Medicare patient- Primary Benign essential HTN ([facility]/HCC) Gastroesophageal reflux disease without esophagitis Esophageal reflux Stage 3 chronic kidney disease, unspecified whether stage 3a or 3b CKD (HCC) ([facility] [place]) 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, without long-term current use of insulin, unspecified whether stage 3a or 3b CKD (HCC) ([facility]/HCC) Acute pain of right shoulder- Primary Class 2 severe obesity due to excess calories with serious comorbidity and body mass index (BMI) of 36.0 to 36.9 in adult ([facility] [place]) Primary osteoarthritis involving multiple joints Preoperative clearance- Primary Unspecified pre-operative examination Type 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 ([facility]/HCC) Malignant neoplasm of unspecified ovary ([facility] [place]) 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 elsewhere ([facility] [place]) Secondary hyperparathyroidism of renal origin ([facility]/HCC) Secondary hyperparathyroidism (of renal origin) Hypertensive chronic kidney disease with stage 1 through stage 4 chronic kidney disease, or unspecified chronic kidney disease ([facility]/HCC) Age-related osteoporosis without current pathological fracture ([facility] [place]) Essential (primary) hypertension (CMS/HCC) Unspecified essential hypertension Type 2 diabetes mellitus with diabetic neuropathy, unspecified ([facility]/HCC) Secondary hyperparathyroidism ([facility]/HCC) Secondary hyperparathyroidism (of renal origin) Acute pain of right shoulder Essential (primary) hypertension (CMS/HCC)- Primary Unspecified essential hypertension Fibromyalgia Unspecified myalgia and myositis 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 elsewhere ([facility]/HCC) ODALYS (generalized anxiety disorder) ([facility] [place]) Generalized anxiety disorder Type 2 diabetes mellitus without complication, without long-term current use of insulin (CMS/HCC) Acute pain of right shoulder- Primary Shoulder stiffness, right documented in this encounter [facility] HealthcareEvaluation note* Diagnosis Benign essential HTN (CMS/HCC)- Primary Gastroesophageal reflux disease without esophagitis Esophageal reflux Stage 3 chronic kidney disease, unspecified whether stage 3a or 3b CKD (HCC) ([facility]/HCC) Class 2 severe obesity due to excess calories with serious comorbidity and body mass index (BMI) of 36.0 to 36.9 in adult ([facility] [place]) Menopause Symptomatic menopausal or female climacteric states Encounter for screening mammogram for malignant neoplasm of breast Encounter for subsequent annual wellness visit (AWV) in Medicare patient- Primary Benign essential HTN ([facility]/HCC) Gastroesophageal reflux disease without esophagitis Esophageal reflux Stage 3 chronic kidney disease, unspecified whether stage 3a or 3b CKD (HCC) ([facility] [place]) 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, without long-term current use of insulin, unspecified whether stage 3a or 3b CKD (HCC) ([facility]/HCC) Acute pain of right shoulder- Primary Class 2 severe obesity due to excess calories with serious comorbidity and body mass index (BMI) of 36.0 to 36.9 in adult ([facility] [place]) Primary osteoarthritis involving multiple joints Preoperative clearance- Primary Unspecified pre-operative examination Type 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 (CMS/HCC) Malignant neoplasm of unspecified ovary ([facility] [place]) 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 elsewhere ([facility] [place]) Secondary hyperparathyroidism of renal origin ([facility]/HCC) Secondary hyperparathyroidism (of renal origin) Hypertensive chronic kidney disease with stage 1 through stage 4 chronic kidney disease, or unspecified chronic kidney disease (CMS/HCC) Age-related osteoporosis without current pathological fracture ([facility]/HCC) Essential (primary) hypertension (CMS/HCC) Unspecified essential hypertension Type 2 diabetes mellitus with diabetic neuropathy, unspecified (CMS/HCC) Secondary hyperparathyroidism (CMS/HCC) Secondary hyperparathyroidism (of renal origin) Acute pain of right shoulder Essential (primary) hypertension (CMS/HCC)- Primary Unspecified essential hypertension Fibromyalgia Unspecified myalgia and myositis 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 elsewhere ([facility]/HCC) ODALYS (generalized anxiety disorder) ([facility] [place]) Generalized anxiety disorder Type 2 diabetes mellitus without complication, without long-term current use of insulin ([facility] [place]) Status post right rotator cuff repair- Primary Right shoulder pain, unspecified chronicity documented in this encounter [facility] HealthcareEvaluation note* Diagnosis Benign essential HTN (CMS/HCC)- Primary Gastroesophageal reflux disease without esophagitis Esophageal reflux Stage 3 chronic kidney disease, unspecified whether stage 3a or 3b CKD (HCC) ([facility] [place]) Class 2 severe obesity due to excess calories with serious comorbidity and body mass index (BMI) of 36.0 to 36.9 in adult ([facility] [place]) Menopause Symptomatic menopausal or female climacteric states Encounter for screening mammogram for malignant neoplasm of breast Encounter for subsequent annual wellness visit (AWV) in Medicare patient- Primary Benign essential HTN ([facility] [place]) Gastroesophageal reflux disease without esophagitis Esophageal reflux Stage 3 chronic kidney disease, unspecified whether stage 3a or 3b CKD (HCC) ([facility] [place]) 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, without long-term current use of insulin, unspecified whether stage 3a or 3b CKD (HCC) ([facility] [place]) Acute pain of right shoulder- Primary Class 2 severe obesity due to excess calories with serious comorbidity and body mass index (BMI) of 36.0 to 36.9 in adult ([facility] [place]) Primary osteoarthritis involving multiple joints Preoperative clearance- Primary Unspecified pre-operative examination Type 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 ([facility] [place]) Malignant neoplasm of unspecified ovary ([facility] [place]) 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 elsewhere ([facility] [place]) Secondary hyperparathyroidism of renal origin ([facility]/HCC) Secondary hyperparathyroidism (of renal origin) Hypertensive chronic kidney disease with stage 1 through stage 4 chronic kidney disease, or unspecified chronic kidney disease ([facility]/HCC) Age-related osteoporosis without current pathological fracture ([facility] [place]) Essential (primary) hypertension ([facility]/HCC) Unspecified essential hypertension Type 2 diabetes mellitus with diabetic neuropathy, unspecified ([facility] [place]) Secondary hyperparathyroidism ([facility]/HCC) Secondary hyperparathyroidism (of renal origin) Acute pain of right shoulder Essential (primary) hypertension (CMS/HCC)- Primary Unspecified essential hypertension Fibromyalgia Unspecified myalgia and myositis 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 elsewhere ([facility] [place]) ODALYS (generalized anxiety disorder) ([facility] [place]) Generalized anxiety disorder Type 2 diabetes mellitus without complication, without long-term current use of insulin ([facility] [place]) Acute pain of right shoulder- Primary Shoulder stiffness, right documented in this encounter [facility] HealthcareEvaluation note* Diagnosis Benign essential HTN ([facility]/HCC)- Primary Gastroesophageal reflux disease without esophagitis Esophageal reflux Stage 3 chronic kidney disease, unspecified whether stage 3a or 3b CKD (HCC) ([facility] [place]) Class 2 severe obesity due to excess calories with serious comorbidity and body mass index (BMI) of 36.0 to 36.9 in adult ([facility] [place]) Menopause Symptomatic menopausal or female climacteric states Encounter for screening mammogram for malignant neoplasm of breast Encounter for subsequent annual wellness visit (AWV) in Medicare patient- Primary Benign essential HTN ([facility] [place]) Gastroesophageal reflux disease without esophagitis Esophageal reflux Stage 3 chronic kidney disease, unspecified whether stage 3a or 3b CKD (HCC) ([facility] [place]) 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, without long-term current use of insulin, unspecified whether stage 3a or 3b CKD (HCC) ([facility] [place]) Acute pain of right shoulder- Primary Class 2 severe obesity due to excess calories with serious comorbidity and body mass index (BMI) of 36.0 to 36.9 in adult ([facility] [place]) Primary osteoarthritis involving multiple joints Preoperative clearance- Primary Unspecified pre-operative examination Type 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 ([facility] [place]) Malignant neoplasm of unspecified ovary ([facility] [place]) 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 elsewhere ([facility] [place]) Secondary hyperparathyroidism of renal origin ([facility] [place]) Secondary hyperparathyroidism (of renal origin) Hypertensive chronic kidney disease with stage 1 through stage 4 chronic kidney disease, or unspecified chronic kidney disease ([facility] [place]) Age-related osteoporosis without current pathological fracture ([facility] [place] Essential (primary) hypertension ([facility] [place]) Unspecified essential hypertension Type 2 diabetes mellitus with diabetic neuropathy, unspecified ([facility] [place]) Secondary hyperparathyroidism ([facility] [place]) Secondary hyperparathyroidism (of renal origin) Acute pain of right shoulder Essential (primary) hypertension ([facility] [place])- Primary Unspecified essential hypertension Fibromyalgia Unspecified myalgia and myositis 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 elsewhere ([facility] [place]) ODALYS (generalized anxiety disorder) ([facility] [place]) Generalized anxiety disorder Type 2 diabetes mellitus without complication, without long-term current use of insulin ([facility] [place]) Fibromyalgia- Primary Unspecified myalgia and myositis 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 elsewhere ([facility] [place]) Class 2 severe obesity due to excess calories with serious comorbidity and body mass index (BMI) of 36.0 to 36.9 in adult ([facility] [place]) ODALYS (generalized anxiety disorder) ([facility] [place]) Generalized anxiety disorder Essential (primary) hypertension ([facility] [place]) Unspecified essential hypertension Age-related osteoporosis without current pathological fracture ([facility] [place]) Primary osteoarthritis involving multiple joints Dermatophytosis of nail- Primary Dystrophic nail Other specified disease of nail Pain around toenail, right foot Pain around toenail, left foot documented in this encounter [facility] HealthcareEvaluation note* Diagnosis Benign essential HTN ([facility] [place])- Primary Gastroesophageal reflux disease without esophagitis Esophageal reflux Stage 3 chronic kidney disease, unspecified whether stage 3a or 3b CKD (HCC) ([facility] [place]) Class 2 severe obesity due to excess calories with serious comorbidity and body mass index (BMI) of 36.0 to 36.9 in adult ([facility] [place]) Menopause Symptomatic menopausal or female climacteric states Encounter for screening mammogram for malignant neoplasm of breast Encounter for subsequent annual wellness visit (AWV) in Medicare patient- Primary Benign essential HTN ([facility] [place]) Gastroesophageal reflux disease without esophagitis Esophageal reflux Stage 3 chronic kidney disease, unspecified whether stage 3a or 3b CKD (HCC) ([facility] [place]) 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, without long-term current use of insulin, unspecified whether stage 3a or 3b CKD (HCC) ([facility] [place]) Acute pain of right shoulder- Primary Class 2 severe obesity due to excess calories with serious comorbidity and body mass index (BMI) of 36.0 to 36.9 in adult ([facility] [place]) Primary osteoarthritis involving multiple joints Preoperative clearance- Primary Unspecified pre-operative examination Type 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 ([facility] [place]) Malignant neoplasm of unspecified ovary ([facility] [place]) 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 elsewhere ([facility] [place]) Secondary hyperparathyroidism of renal origin ([facility]/HCC) Secondary hyperparathyroidism (of renal origin) Hypertensive chronic kidney disease with stage 1 through stage 4 chronic kidney disease, or unspecified chronic kidney disease ([facility] [place]) Age-related osteoporosis without current pathological fracture ([facility] [place] Essential (primary) hypertension ([facility] [place]) Unspecified essential hypertension Type 2 diabetes mellitus with diabetic neuropathy, unspecified ([facility] [place]) Secondary hyperparathyroidism ([facility] [place]) Secondary hyperparathyroidism (of renal origin) Acute pain of right shoulder Essential (primary) hypertension ([facility] [place])- Primary Unspecified essential hypertension Fibromyalgia Unspecified myalgia and myositis 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 elsewhere ([facility] [place]) ODALYS (generalized anxiety disorder) ([facility] [place]) Generalized anxiety disorder Type 2 diabetes mellitus without complication, without long-term current use of insulin ([facility] [place]) Status post right rotator cuff repair- Primary Right shoulder pain, unspecified chronicity Fibromyalgia- Primary Unspecified myalgia and myositis 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 elsewhere ([facility] [place]) Class 2 severe obesity due to excess calories with serious comorbidity and body mass index (BMI) of 36.0 to 36.9 in adult ([facility] [place]) ODALYS (generalized anxiety disorder) ([facility] [place]) Generalized anxiety disorder Essential (primary) hypertension ([facility] [place]) Unspecified essential hypertension Age-related osteoporosis without current pathological fracture ([facility] [place]) Primary osteoarthritis involving multiple joints documented in this encounter [facility] HealthcareEvaluation note* Diagnosis Benign essential HTN ([facility] [place])- Primary Gastroesophageal reflux disease without esophagitis Esophageal reflux Stage 3 chronic kidney disease, unspecified whether stage 3a or 3b CKD (HCC) ([facility] [place]) Class 2 severe obesity due to excess calories with serious comorbidity and body mass index (BMI) of 36.0 to 36.9 in adult ([facility] [place]) Menopause Symptomatic menopausal or female climacteric states Encounter for screening mammogram for malignant neoplasm of breast Encounter for subsequent annual wellness visit (AWV) in Medicare patient- Primary Benign essential HTN ([facility] [place]) Gastroesophageal reflux disease without esophagitis Esophageal reflux Stage 3 chronic kidney disease, unspecified whether stage 3a or 3b CKD (HCC) ([facility] [place]) 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, without long-term current use of insulin, unspecified whether stage 3a or 3b CKD (HCC) ([facility] [place]) Acute pain of right shoulder- Primary Class 2 severe obesity due to excess calories with serious comorbidity and body mass index (BMI) of 36.0 to 36.9 in adult ([facility] [place]) Primary osteoarthritis involving multiple joints Preoperative clearance- Primary Unspecified pre-operative examination Type 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 ([facility]CC) Malignant neoplasm of unspecified ovary ([facility] [place]) 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 elsewhere ([facility] [place]) Secondary hyperparathyroidism of renal origin ([facility] [place]) Secondary hyperparathyroidism (of renal origin) Hypertensive chronic kidney disease with stage 1 through stage 4 chronic kidney disease, or unspecified chronic kidney disease ([facility] [place]) Age-related osteoporosis without current pathological fracture ([facility] [place]) Essential (primary) hypertension ([facility] [place]) Unspecified essential hypertension Type 2 diabetes mellitus with diabetic neuropathy, unspecified ([facility] [place]) Secondary hyperparathyroidism ([facility] [place]) Secondary hyperparathyroidism (of renal origin) Acute pain of right shoulder Essential (primary) hypertension ([facility] [place])- Primary Unspecified essential hypertension Fibromyalgia Unspecified myalgia and myositis 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 elsewhere ([facility] [place]) ODALYS (generalized anxiety disorder) ([facility] [place]) Generalized anxiety disorder Type 2 diabetes mellitus without complication, without long-term current use of insulin ([facility] [place]) Fibromyalgia- Primary Unspecified myalgia and myositis 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 elsewhere ([facility] [place]) Class 2 severe obesity due to excess calories with serious comorbidity and body mass index (BMI) of 36.0 to 36.9 in adult ([facility] [place]) ODALYS (generalized anxiety disorder) ([facility] [place]) Generalized anxiety disorder Essential (primary) hypertension ([facility] [place] Unspecified essential hypertension Age-related osteoporosis without current pathological fracture ([facility] [place]) Primary osteoarthritis involving multiple joints documented in this encounter [facility]* Diagnosis Status post right rotator cuff repair documented in this encounter [facility]* Diagnosis Benign essential HTN ([facility] [place])- Primary Gastroesophageal reflux disease without esophagitis Esophageal reflux Stage 3 chronic kidney disease, unspecified whether stage 3a or 3b CKD (HCC) ([facility] [place]) Class 2 severe obesity due to excess calories with serious comorbidity and body mass index (BMI) of 36.0 to 36.9 in adult ([facility] [place]) Menopause Symptomatic menopausal or female climacteric states Encounter for screening mammogram for malignant neoplasm of breast Encounter for subsequent annual wellness visit (AWV) in Medicare patient- Primary Benign essential HTN ([facility] [place]) Gastroesophageal reflux disease without esophagitis Esophageal reflux Stage 3 chronic kidney disease, unspecified whether stage 3a or 3b CKD (HCC) ([facility] [place]) 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, without long-term current use of insulin, unspecified whether stage 3a or 3b CKD (HCC) ([facility] [place]) Acute pain of right shoulder- Primary Class 2 severe obesity due to excess calories with serious comorbidity and body mass index (BMI) of 36.0 to 36.9 in adult ([facility] [place]) Primary osteoarthritis involving multiple joints Preoperative clearance- Primary Unspecified pre-operative examination Type 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 ([facility] [place]) Malignant neoplasm of unspecified ovary ([facility] [place]) 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 elsewhere ([facility] [place]) Secondary hyperparathyroidism of renal origin ([facility] [place]) Secondary hyperparathyroidism (of renal origin) Hypertensive chronic kidney disease with stage 1 through stage 4 chronic kidney disease, or unspecified chronic kidney disease ([facility] [place]) Age-related osteoporosis without current pathological fracture ([facility] [place] Essential (primary) hypertension ([facility] [place]) Unspecified essential hypertension Type 2 diabetes mellitus with diabetic neuropathy, unspecified ([facility] [place]) Secondary hyperparathyroidism ([facility] [place]) Secondary hyperparathyroidism (of renal origin) Acute pain of right shoulder Essential (primary) hypertension ([facility] [place])- Primary Unspecified essential hypertension Fibromyalgia Unspecified myalgia and myositis 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 elsewhere ([facility] [place]) ODALYS (generalized anxiety disorder) ([facility] [place]) Generalized anxiety disorder Type 2 diabetes mellitus without complication, without long-term current use of insulin ([facility] [place]) Fibromyalgia- Primary Unspecified myalgia and myositis 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 elsewhere ([facility] [place]) Class 2 severe obesity due to excess calories with serious comorbidity and body mass index (BMI) of 36.0 to 36.9 in adult ([facility] [place]) ODALYS (generalized anxiety disorder) ([facility] [place]) Generalized anxiety disorder Essential (primary) hypertension ([facility] [place]) Unspecified essential hypertension Age-related osteoporosis without current pathological fracture ([facility] [place]) Primary osteoarthritis involving multiple joints Class 2 severe obesity due to excess calories with serious comorbidity and body mass index (BMI) of 36.0 to 36.9 in adult ([facility] [place])- Primary Essential (primary) hypertension ([facility] [place]) Unspecified essential hypertension Acute non-recurrent pansinusitis Encounter for screening mammogram for malignant neoplasm of breast documented in this encounter [facility] HealthcareEvaluation [facility]* Diagnosis Essential (primary) hypertension ([facility] [place] Primary Unspecified essential hypertension Fibromyalgia Unspecified myalgia and myositis 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 elsewhere ([facility] [place]) ODALYS (generalized anxiety disorder) ([facility] [place]) Generalized anxiety disorder Type 2 diabetes mellitus without complication, without long-term current use of insulin ([facility] [place]) documented in this encounter [facility] HealthcareEvaluation note* Diagnosis Acute pain of right shoulder- Primary Shoulder stiffness, right documented in this encounter [facility] HealthcareEvaluation note* Diagnosis Benign essential HTN ([facility])- Primary Gastroesophageal reflux disease without esophagitis Esophageal reflux Stage 3 chronic kidney disease, unspecified whether stage 3a or 3b CKD (HCC) ([facility] [place]) Class 2 severe obesity due to excess calories with serious comorbidity and body mass index (BMI) of 36.0 to 36.9 in adult ([facility] [place]) Menopause Symptomatic menopausal or female climacteric states Encounter for screening mammogram for malignant neoplasm of breast Encounter for subsequent annual wellness visit (AWV) in Medicare patient- Primary Benign essential HTN ([facility] [place]) Gastroesophageal reflux disease without esophagitis Esophageal reflux Stage 3 chronic kidney disease, unspecified whether stage 3a or 3b CKD (HCC) ([facility] [place]) 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, without long-term current use of insulin, unspecified whether stage 3a or 3b CKD (HCC) ([facility] [place]) Acute pain of right shoulder- Primary Class 2 severe obesity due to excess calories with serious comorbidity and body mass index (BMI) of 36.0 to 36.9 in adult ([facility] [place]) Primary osteoarthritis involving multiple joints Preoperative clearance- Primary Unspecified pre-operative examination Type 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 ([facility] [place]) Malignant neoplasm of unspecified ovary ([facility] [place] 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 elsewhere ([facility] [place] Secondary hyperparathyroidism of renal origin ([facility] [place]) Secondary hyperparathyroidism (of renal origin) Hypertensive chronic kidney disease with stage 1 through stage 4 chronic kidney disease, or unspecified chronic kidney disease ([facility] [place]) Age-related osteoporosis without current pathological fracture ([facility] [place]) Essential (primary) hypertension ([facility] [place]) Unspecified essential hypertension Type 2 diabetes mellitus with diabetic neuropathy, unspecified ([facility] [place]) Secondary hyperparathyroidism ([facility]) Secondary hyperparathyroidism (of renal origin) Acute pain of right shoulder Essential (primary) hypertension ([facility])- Primary Unspecified essential hypertension Fibromyalgia Unspecified myalgia and myositis 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 elsewhere ([facility] [place]) ODALYS (generalized anxiety disorder) ([facility] [place]) Generalized anxiety disorder Type 2 diabetes mellitus without complication, without long-term current use of insulin ([facility] [place]) Fibromyalgia- Primary Unspecified myalgia and myositis 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 elsewhere ([facility] [place]) Class 2 severe obesity due to excess calories with serious comorbidity and body mass index (BMI) of 36.0 to 36.9 in adult ([facility] [place] ODALYS (generalized anxiety disorder) ([facility] [place]) Generalized anxiety disorder Essential (primary) hypertension ([facility] [place]) Unspecified essential hypertension Age-related osteoporosis without current pathological fracture ([facility] [place]) Primary osteoarthritis involving multiple joints Class 2 severe obesity due to excess calories with serious comorbidity and body mass index (BMI) of 36.0 to 36.9 in adult ([facility] [place])- Primary Essential (primary) hypertension ([facility] [place]) Unspecified essential hypertension Acute non-recurrent pansinusitis Encounter for screening mammogram for malignant neoplasm of breast Fibromyalgia Unspecified myalgia and myositis 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 elsewhere ([facility] [place]) ODALYS (generalized anxiety disorder) ([facility] [place]) Generalized anxiety disorder documented in this encounter [facility] HealthcareEvaluation note* Diagnosis Benign essential HTN ([facility] [place])- Primary Gastroesophageal reflux disease without esophagitis Esophageal reflux Stage 3 chronic kidney disease, unspecified whether stage 3a or 3b CKD (HCC) ([facility] [place]) Class 2 severe obesity due to excess calories with serious comorbidity and body mass index (BMI) of 36.0 to 36.9 in adult ([facility] [place]) Menopause Symptomatic menopausal or female climacteric states Encounter for screening mammogram for malignant neoplasm of breast Encounter for subsequent annual wellness visit (AWV) in Medicare patient- Primary Benign essential HTN ([facility] [place]) Gastroesophageal reflux disease without esophagitis Esophageal reflux Stage 3 chronic kidney disease, unspecified whether stage 3a or 3b CKD (HCC) ([facility] [place]) 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, without long-term current use of insulin, unspecified whether stage 3a or 3b CKD (HCC) ([facility] [place]) Acute pain of right shoulder- Primary Class 2 severe obesity due to excess calories with serious comorbidity and body mass index (BMI) of 36.0 to 36.9 in adult ([facility] [place]) Primary osteoarthritis involving multiple joints Preoperative clearance- Primary Unspecified pre-operative examination Type 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 ([facility] [place]) Malignant neoplasm of unspecified ovary ([facility] [place]) 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 elsewhere ([facility] [place]) Secondary hyperparathyroidism of renal origin ([facility] [place]) Secondary hyperparathyroidism (of renal origin) Hypertensive chronic kidney disease with stage 1 through stage 4 chronic kidney disease, or unspecified chronic kidney disease ([facility] [place]) Age-related osteoporosis without current pathological fracture ([facility] [place]) Essential (primary) hypertension ([facility] [place]) Unspecified essential hypertension Type 2 diabetes mellitus with diabetic neuropathy, unspecified ([facility] [place]) Secondary hyperparathyroidism ([facility] [place]) Secondary hyperparathyroidism (of renal origin) Acute pain of right shoulder Essential (primary) hypertension ([facility] [place])- Primary Unspecified essential hypertension Fibromyalgia Unspecified myalgia and myositis 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 elsewhere ([facility] [place]) ODALYS (generalized anxiety disorder) ([facility] [place]) Generalized anxiety disorder Type 2 diabetes mellitus without complication, without long-term current use of insulin ([facility] [place]) Fibromyalgia- Primary Unspecified myalgia and myositis 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 elsewhere ([facility] [place]) Class 2 severe obesity due to excess calories with serious comorbidity and body mass index (BMI) of 36.0 to 36.9 in adult ([facility] [place]) ODALYS (generalized anxiety disorder) ([facility] [place]) Generalized anxiety disorder Essential (primary) hypertension ([facility] [place]) Unspecified essential hypertension Age-related osteoporosis without current pathological fracture ([facility] [place]) Primary osteoarthritis involving multiple joints Class 2 severe obesity due to excess calories with serious comorbidity and body mass index (BMI) of 36.0 to 36.9 in adult ([facility] [place])- Primary Essential (primary) hypertension ([facility] [place]) Unspecified essential hypertension Acute non-recurrent pansinusitis Encounter for screening mammogram for malignant neoplasm of breast Hematoma of frontal scalp, subsequent encounter- Primary Closed head injury, subsequent encounter Class 2 severe obesity due to excess calories with serious comorbidity and body mass index (BMI) of 36.0 to 36.9 in adult ([facility] [place]) Essential (primary) hypertension ([facility] [place]) Unspecified essential hypertension documented in this encounter [facility] HealthcareEvaluation note* Diagnosis Benign essential HTN ([facility] [place])- Primary Gastroesophageal reflux disease without esophagitis Esophageal reflux Stage 3 chronic kidney disease, unspecified whether stage 3a or 3b CKD (HCC) ([facility] [place]) Class 2 severe obesity due to excess calories with serious comorbidity and body mass index (BMI) of 36.0 to 36.9 in adult ([facility] [place]) Menopause Symptomatic menopausal or female climacteric states Encounter for screening mammogram for malignant neoplasm of breast Encounter for subsequent annual wellness visit (AWV) in Medicare patient- Primary Benign essential HTN ([facility] [place]) Gastroesophageal reflux disease without esophagitis Esophageal reflux Stage 3 chronic kidney disease, unspecified whether stage 3a or 3b CKD (HCC) ([facility] [place]) 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, without long-term current use of insulin, unspecified whether stage 3a or 3b CKD (HCC) ([facility] [place]) Acute pain of right shoulder- Primary Class 2 severe obesity due to excess calories with serious comorbidity and body mass index (BMI) of 36.0 to 36.9 in adult ([facility] [place]) Primary osteoarthritis involving multiple joints Preoperative clearance- Primary Unspecified pre-operative examination Type 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 ([facility] [place]) Malignant neoplasm of unspecified ovary ([facility] [place]) 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 elsewhere ([facility] [place]) Secondary hyperparathyroidism of renal origin ([facility] [place]) Secondary hyperparathyroidism (of renal origin) Hypertensive chronic kidney disease with stage 1 through stage 4 chronic kidney disease, or unspecified chronic kidney disease ([facility] [place]) Age-related osteoporosis without current pathological fracture ([facility] [place]) Essential (primary) hypertension ([facility] [place]) Unspecified essential hypertension Type 2 diabetes mellitus with diabetic neuropathy, unspecified ([facility] [place]) Secondary hyperparathyroidism ([facility] [place]) Secondary hyperparathyroidism (of renal origin) Acute pain of right shoulder Essential (primary) hypertension ([facility] [place])- Primary Unspecified essential hypertension Fibromyalgia Unspecified myalgia and myositis 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 elsewhere ([facility] [place]) ODALYS (generalized anxiety disorder) ([facility] [place]) Generalized anxiety disorder Type 2 diabetes mellitus without complication, without long-term current use of insulin ([facility] [place]) Fibromyalgia- Primary Unspecified myalgia and myositis 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 elsewhere ([facility] [place]) Class 2 severe obesity due to excess calories with serious comorbidity and body mass index (BMI) of 36.0 to 36.9 in adult ([facility] [place]) ODALYS (generalized anxiety disorder) ([facility] [place]) Generalized anxiety disorder Essential (primary) hypertension ([facility] [place]) Unspecified essential hypertension Age-related osteoporosis without current pathological fracture ([facility] [place]) Primary osteoarthritis involving multiple joints Class 2 severe obesity due to excess calories with serious comorbidity and body mass index (BMI) of 36.0 to 36.9 in adult ([facility] [place])- Primary Essential (primary) hypertension ([facility] [place]) Unspecified essential hypertension Acute non-recurrent pansinusitis Encounter for screening mammogram for malignant neoplasm of breast Hematoma of frontal scalp, subsequent encounter- Primary Closed head injury, subsequent encounter Class 2 severe obesity due to excess calories with serious comorbidity and body mass index (BMI) of 36.0 to 36.9 in adult ([facility] [place]) Essential (primary) hypertension ([facility] [place]) Unspecified essential hypertension Hematoma of frontal scalp, sequela- Primary Morbid (severe) obesity due to excess calories ([facility] [place]) Essential (primary) hypertension ([facility] [place]) Unspecified essential hypertension Body mass index (BMI) 35.0-35.9, adult Type 2 diabetes mellitus with diabetic neuropathy, unspecified ([facility] [place]) Malignant neoplasm of unspecified ovary ([facility] [place] Type 2 diabetes mellitus with diabetic cataract ([facility] [place]) Type II or unspecified type diabetes mellitus with ophthalmic manifestations, not stated as uncontrolled Type 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 ([facility] [place]) Chronic kidney disease, stage 3a (HCC) ([facility] [place]) Hypertensive chronic kidney disease with stage 1 through stage 4 chronic kidney disease, or unspecified chronic kidney disease ([facility] [place]) Class 2 severe obesity due to excess calories with serious comorbidity and body mass index (BMI) of 36.0 to 36.9 in adult ([facility] [place]) Closed head injury, sequela Blurry vision, left eye Other specified visual disturbances documented in this encounter [facility] HealthcareEvaluation note* Diagnosis Benign essential HTN ([facility] [place] Primary Gastroesophageal reflux disease without esophagitis Esophageal reflux Stage 3 chronic kidney disease, unspecified whether stage 3a or 3b CKD (HCC) ([facility] [place]) Class 2 severe obesity due to excess calories with serious comorbidity and body mass index (BMI) of 36.0 to 36.9 in adult ([facility] [place]) Menopause Symptomatic menopausal or female climacteric states Encounter for screening mammogram for malignant neoplasm of breast Encounter for subsequent annual wellness visit (AWV) in Medicare patient- Primary Benign essential HTN ([facility] [place]) Gastroesophageal reflux disease without esophagitis Esophageal reflux Stage 3 chronic kidney disease, unspecified whether stage 3a or 3b CKD (HCC) ([facility] [place]) 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, without long-term current use of insulin, unspecified whether stage 3a or 3b CKD (HCC) ([facility] [place]) Acute pain of right shoulder- Primary Class 2 severe obesity due to excess calories with serious comorbidity and body mass index (BMI) of 36.0 to 36.9 in adult ([facility] [place]) Primary osteoarthritis involving multiple joints Preoperative clearance- Primary Unspecified pre-operative examination Type 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 ([facility] [place]) Malignant neoplasm of unspecified ovary ([facility] [place]) 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 elsewhere ([facility] [place] Secondary hyperparathyroidism of renal origin ([facility] [place]) Secondary hyperparathyroidism (of renal origin) Hypertensive chronic kidney disease with stage 1 through stage 4 chronic kidney disease, or unspecified chronic kidney disease ([facility] [place]) Age-related osteoporosis without current pathological fracture ([facility] [place]) Essential (primary) hypertension ([facility] [place]) Unspecified essential hypertension Type 2 diabetes mellitus with diabetic neuropathy, unspecified ([facility] [place]) Secondary hyperparathyroidism ([facility] [place]) Secondary hyperparathyroidism (of renal origin) Acute pain of right shoulder Essential (primary) hypertension ([facility] [place] Primary Unspecified essential hypertension Fibromyalgia Unspecified myalgia and myositis 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 elsewhere ([facility] [place]) ODALYS (generalized anxiety disorder) ([facility] [place]) Generalized anxiety disorder Type 2 diabetes mellitus without complication, without long-term current use of insulin ([facility] [place]) Fibromyalgia- Primary Unspecified myalgia and myositis 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 elsewhere ([facility] [place]) Class 2 severe obesity due to excess calories with serious comorbidity and body mass index (BMI) of 36.0 to 36.9 in adult ([facility] [place]) ODALYS (generalized anxiety disorder) ([facility] [place]) Generalized anxiety disorder Essential (primary) hypertension ([facility] [place]) Unspecified essential hypertension Age-related osteoporosis without current pathological fracture ([facility] [place]) Primary osteoarthritis involving multiple joints Class 2 severe obesity due to excess calories with serious comorbidity and body mass index (BMI) of 36.0 to 36.9 in adult ([facility] [place])- Primary Essential (primary) hypertension ([facility] [place]) Unspecified essential hypertension Acute non-recurrent pansinusitis Encounter for screening mammogram for malignant neoplasm of breast Hematoma of frontal scalp, subsequent encounter- Primary Closed head injury, subsequent encounter Class 2 severe obesity due to excess calories with serious comorbidity and body mass index (BMI) of 36.0 to 36.9 in adult ([facility] [place]) Essential (primary) hypertension ([facility]) Unspecified essential hypertension Hematoma of frontal scalp, sequela- Primary Morbid (severe) obesity due to excess calories ([facility]) Essential (primary) hypertension ([facility]) Unspecified essential hypertension Body mass index (BMI) 35.0-35.9, adult Type 2 diabetes mellitus with diabetic neuropathy, unspecified ([facility] [place]) Malignant neoplasm of unspecified ovary ([facility] [place]) Type 2 diabetes mellitus with diabetic cataract ([facility] [place]) Type II or unspecified type diabetes mellitus with ophthalmic manifestations, not stated as uncontrolled Type 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 ([facility] [place]) Chronic kidney disease, stage 3a (HCC) ([facility] [place]) Hypertensive chronic kidney disease with stage 1 through stage 4 chronic kidney disease, or unspecified chronic kidney disease ([facility] [place]) Class 2 severe obesity due to excess calories with serious comorbidity and body mass index (BMI) of 36.0 to 36.9 in adult ([facility] [place]) Closed head injury, sequela Blurry vision, left eye Other specified visual disturbances Mixed hyperlipidemia ([facility] [place]) Mixed hyperlipidemia documented in this encounter [facility] HealthcareEvaluation note* Diagnosis Benign essential HTN ([facility])- Primary Gastroesophageal reflux disease without esophagitis Esophageal reflux Stage 3 chronic kidney disease, unspecified whether stage 3a or 3b CKD (HCC) ([facility] [place]) Class 2 severe obesity due to excess calories with serious comorbidity and body mass index (BMI) of 36.0 to 36.9 in adult ([facility] [place]) Menopause Symptomatic menopausal or female climacteric states Encounter for screening mammogram for malignant neoplasm of breast Encounter for subsequent annual wellness visit (AWV) in Medicare patient- Primary Benign essential HTN ([facility]) Gastroesophageal reflux disease without esophagitis Esophageal reflux Stage 3 chronic kidney disease, unspecified whether stage 3a or 3b CKD (HCC) ([facility] [place]) 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, without long-term current use of insulin, unspecified whether stage 3a or 3b CKD (HCC) ([facility]/HCC) Acute pain of right shoulder- Primary Class 2 severe obesity due to excess calories with serious comorbidity and body mass index (BMI) of 36.0 to 36.9 in adult ([facility] [place]) Primary osteoarthritis involving multiple joints Preoperative clearance- Primary Unspecified pre-operative examination Type 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 ([facility] [place]) Malignant neoplasm of unspecified ovary ([facility] [place]) 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 elsewhere ([facility] [place]) Secondary hyperparathyroidism of renal origin ([facility] [place]) Secondary hyperparathyroidism (of renal origin) Hypertensive chronic kidney disease with stage 1 through stage 4 chronic kidney disease, or unspecified chronic kidney disease ([facility] [place]) Age-related osteoporosis without current pathological fracture ([facility] [place] Essential (primary) hypertension ([facility] [place]) Unspecified essential hypertension Type 2 diabetes mellitus with diabetic neuropathy, unspecified ([facility] [place]) Secondary hyperparathyroidism ([facility] [place]) Secondary hyperparathyroidism (of renal origin) Acute pain of right shoulder Essential (primary) hypertension ([facility] [place])- Primary Unspecified essential hypertension Fibromyalgia Unspecified myalgia and myositis 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 elsewhere ([facility] [place]) ODALYS (generalized anxiety disorder) ([facility] [place]) Generalized anxiety disorder Type 2 diabetes mellitus without complication, without long-term current use of insulin ([facility] [place]) Fibromyalgia- Primary Unspecified myalgia and myositis 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 elsewhere ([facility] [place]) Class 2 severe obesity due to excess calories with serious comorbidity and body mass index (BMI) of 36.0 to 36.9 in adult ([facility] [place]) ODALYS (generalized anxiety disorder) ([facility] [place]) Generalized anxiety disorder Essential (primary) hypertension ([facility] [place]) Unspecified essential hypertension Age-related osteoporosis without current pathological fracture ([facility] [place]) Primary osteoarthritis involving multiple joints Class 2 severe obesity due to excess calories with serious comorbidity and body mass index (BMI) of 36.0 to 36.9 in adult ([facility] [place])- Primary Essential (primary) hypertension ([facility] [place]) Unspecified essential hypertension Acute non-recurrent pansinusitis Encounter for screening mammogram for malignant neoplasm of breast Hematoma of frontal scalp, subsequent encounter- Primary Closed head injury, subsequent encounter Class 2 severe obesity due to excess calories with serious comorbidity and body mass index (BMI) of 36.0 to 36.9 in adult ([facility] [place]) Essential (primary) hypertension ([facility] [place]) Unspecified essential hypertension Hematoma of frontal scalp, sequela- Primary Morbid (severe) obesity due to excess calories ([facility] [place]) Essential (primary) hypertension ([facility] [place]) Unspecified essential hypertension Body mass index (BMI) 35.0-35.9, adult Type 2 diabetes mellitus with diabetic neuropathy, unspecified (CMS/HCC) Malignant neoplasm of unspecified ovary (CMS/HCC) Type 2 diabetes mellitus with diabetic cataract (CMS/HCC) Type II or unspecified type diabetes mellitus with ophthalmic manifestations, not stated as uncontrolled Type 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 (CMS/HCC) Chronic kidney disease, stage 3a (HCC) (CMS/HCC) Hypertensive chronic kidney disease with stage 1 through stage 4 chronic kidney disease, or unspecified chronic kidney disease (CMS/HCC) Class 2 severe obesity due to excess calories with serious comorbidity and body mass index (BMI) of 36.0 to 36.9 in adult ([facility]) Closed head injury, sequela Blurry vision, left eye Other specified visual disturbances Pre-operative clearance- Primary Unspecified pre-operative examination Class 2 severe obesity due to excess calories with serious comorbidity and body mass index (BMI) of 36.0 to 36.9 in adult ([facility] [place]) Body mass index (BMI) 35.0-35.9, adult Closed head injury, sequela Hematoma of frontal scalp, sequela Age-related osteoporosis without current pathological fracture ([facility]) Essential (primary) hypertension ([facility]) Unspecified essential hypertension Gastroesophageal reflux disease without esophagitis Esophageal reflux Type 2 diabetes mellitus without complication, without long-term current use of insulin ([facility]) Blurry vision, left eye Other specified visual disturbances documented in this encounter [facility] HealthcareEvaluation note* Diagnosis Rotator cuff arthropathy of right shoulder- Primary Preop testing- Primary Unspecified pre-operative examination Liver disease Unspecified disorder of liver Rotator cuff arthropathy of right shoulder [facility] Diagnosis Benign essential HTN (CMS/HCC)- Primary Gastroesophageal reflux disease without esophagitis Esophageal reflux Stage 3 chronic kidney disease, unspecified whether stage 3a or 3b CKD (HCC) ([facility]) Class 2 severe obesity due to excess calories with serious comorbidity and body mass index (BMI) of 36.0 to 36.9 in adult ([facility] [place]) Menopause Symptomatic menopausal or female climacteric states Encounter for screening mammogram for malignant neoplasm of breast Encounter for subsequent annual wellness visit (AWV) in Medicare patient- Primary Benign essential HTN (CMS/HCC) Gastroesophageal reflux disease without esophagitis Esophageal reflux Stage 3 chronic kidney disease, unspecified whether stage 3a or 3b CKD (HCC) ([facility]) 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, without long-term current use of insulin, unspecified whether stage 3a or 3b CKD (HCC) ([facility] [place]) Acute pain of right shoulder- Primary Class 2 severe obesity due to excess calories with serious comorbidity and body mass index (BMI) of 36.0 to 36.9 in adult ([facility] [place]) Primary osteoarthritis involving multiple joints Preoperative clearance- Primary Unspecified pre-operative examination Type 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 ([facility] [place]) Malignant neoplasm of unspecified ovary ([facility] [place]) 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 elsewhere ([facility] [place]) Secondary hyperparathyroidism of renal origin ([facility] [place]) Secondary hyperparathyroidism (of renal origin) Hypertensive chronic kidney disease with stage 1 through stage 4 chronic kidney disease, or unspecified chronic kidney disease ([facility] [place]) Age-related osteoporosis without current pathological fracture ([facility] [place]) Essential (primary) hypertension ([facility] [place]) Unspecified essential hypertension Type 2 diabetes mellitus with diabetic neuropathy, unspecified ([facility] [place]) Secondary hyperparathyroidism ([facility] [place]) Secondary hyperparathyroidism (of renal origin) Acute pain of right shoulder Essential (primary) hypertension ([facility] [place])- Primary Unspecified essential hypertension Fibromyalgia Unspecified myalgia and myositis 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 elsewhere ([facility] [place]) ODALYS (generalized anxiety disorder) ([facility] [place]) Generalized anxiety disorder Type 2 diabetes mellitus without complication, without long-term current use of insulin ([facility] [place]) Fibromyalgia- Primary Unspecified myalgia and myositis 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 elsewhere ([facility] [place]) Class 2 severe obesity due to excess calories with serious comorbidity and body mass index (BMI) of 36.0 to 36.9 in adult ([facility] [place]) ODALYS (generalized anxiety disorder) ([facility] [place]) Generalized anxiety disorder Essential (primary) hypertension ([facility] [place]) Unspecified essential hypertension Age-related osteoporosis without current pathological fracture ([facility] [place]) Primary osteoarthritis involving multiple joints Class 2 severe obesity due to excess calories with serious comorbidity and body mass index (BMI) of 36.0 to 36.9 in adult ([facility] [place])- Primary Essential (primary) hypertension ([facility] [place]) Unspecified essential hypertension Acute non-recurrent pansinusitis Encounter for screening mammogram for malignant neoplasm of breast Hematoma of frontal scalp, subsequent encounter- Primary Closed head injury, subsequent encounter Class 2 severe obesity due to excess calories with serious comorbidity and body mass index (BMI) of 36.0 to 36.9 in adult ([facility] [place]) Essential (primary) hypertension ([facility] [place]) Unspecified essential hypertension Hematoma of frontal scalp, sequela- Primary Morbid (severe) obesity due to excess calories ([facility] [place]) Essential (primary) hypertension ([facility] [place]) Unspecified essential hypertension Body mass index (BMI) 35.0-35.9, adult Type 2 diabetes mellitus with diabetic neuropathy, unspecified ([facility] [place]) Malignant neoplasm of unspecified ovary ([facility] [place]) Type 2 diabetes mellitus with diabetic cataract ([facility] [place]) Type II or unspecified type diabetes mellitus with ophthalmic manifestations, not stated as uncontrolled Type 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 ([facility] [place]) Chronic kidney disease, stage 3a (HCC) ([facility] [place]) Hypertensive chronic kidney disease with stage 1 through stage 4 chronic kidney disease, or unspecified chronic kidney disease ([facility] [place]) Class 2 severe obesity due to excess calories with serious comorbidity and body mass index (BMI) of 36.0 to 36.9 in adult ([facility] [place]) Closed head injury, sequela Blurry vision, left eye Other specified visual disturbances Pre-operative clearance- Primary Unspecified pre-operative examination Class 2 severe obesity due to excess calories with serious comorbidity and body mass index (BMI) of 36.0 to 36.9 in adult ([facility] [place]) Body mass index (BMI) 35.0-35.9, adult Closed head injury, sequela Hematoma of frontal scalp, sequela Age-related osteoporosis without current pathological fracture ([facility] [place]) Essential (primary) hypertension ([facility] [place]) Unspecified essential hypertension Gastroesophageal reflux disease without esophagitis Esophageal reflux Type 2 diabetes mellitus without complication, without long-term current use of insulin ([facility] [place]) Blurry vision, left eye Other specified visual disturbances Fibromyalgia Unspecified myalgia and myositis 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 elsewhere ([facility] [place]) ODALYS (generalized anxiety disorder) ([facility] [place]) Generalized anxiety disorder documented in this encounter [facility]Evaluation note* Diagnosis Benign essential HTN ([facility] [place])- Primary Gastroesophageal reflux disease without esophagitis Esophageal reflux Stage 3 chronic kidney disease, unspecified whether stage 3a or 3b CKD (HCC) ([facility] [place]) Class 2 severe obesity due to excess calories with serious comorbidity and body mass index (BMI) of 36.0 to 36.9 in adult ([facility] [place]) Menopause Symptomatic menopausal or female climacteric states Encounter for screening mammogram for malignant neoplasm of breast Encounter for subsequent annual wellness visit (AWV) in Medicare patient- Primary Benign essential HTN ([facility] [place]) Gastroesophageal reflux disease without esophagitis Esophageal reflux Stage 3 chronic kidney disease, unspecified whether stage 3a or 3b CKD (HCC) ([facility] [place]) 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, without long-term current use of insulin, unspecified whether stage 3a or 3b CKD (HCC) ([facility] [place]) Acute pain of right shoulder- Primary Class 2 severe obesity due to excess calories with serious comorbidity and body mass index (BMI) of 36.0 to 36.9 in adult ([facility] [place]) Primary osteoarthritis involving multiple joints Preoperative clearance- Primary Unspecified pre-operative examination Type 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 ([facility] [place]) Malignant neoplasm of unspecified ovary ([facility] [place]) 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 elsewhere ([facility] [place]) Secondary hyperparathyroidism of renal origin ([facility] [place]) Secondary hyperparathyroidism (of renal origin) Hypertensive chronic kidney disease with stage 1 through stage 4 chronic kidney disease, or unspecified chronic kidney disease ([facility] [place]) Age-related osteoporosis without current pathological fracture ([facility] [place] Essential (primary) hypertension ([facility] [place]) Unspecified essential hypertension Type 2 diabetes mellitus with diabetic neuropathy, unspecified ([facility] [place]) Secondary hyperparathyroidism ([facility] [place]) Secondary hyperparathyroidism (of renal origin) Acute pain of right shoulder Essential (primary) hypertension ([facility] [place])- Primary Unspecified essential hypertension Fibromyalgia Unspecified myalgia and myositis 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 elsewhere ([facility] [place]) ODALYS (generalized anxiety disorder) ([facility] [place]) Generalized anxiety disorder Type 2 diabetes mellitus without complication, without long-term current use of insulin ([facility] [place]) Fibromyalgia- Primary Unspecified myalgia and myositis 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 elsewhere ([facility] [place]) Class 2 severe obesity due to excess calories with serious comorbidity and body mass index (BMI) of 36.0 to 36.9 in adult ([facility] [place]) ODALYS (generalized anxiety disorder) ([facility] [place]) Generalized anxiety disorder Essential (primary) hypertension ([facility] [place]) Unspecified essential hypertension Age-related osteoporosis without current pathological fracture ([facility] [place]) Primary osteoarthritis involving multiple joints Class 2 severe obesity due to excess calories with serious comorbidity and body mass index (BMI) of 36.0 to 36.9 in adult ([facility] [place])- Primary Essential (primary) hypertension ([facility] [place]) Unspecified essential hypertension Acute non-recurrent pansinusitis Encounter for screening mammogram for malignant neoplasm of breast Hematoma of frontal scalp, subsequent encounter- Primary Closed head injury, subsequent encounter Class 2 severe obesity due to excess calories with serious comorbidity and body mass index (BMI) of 36.0 to 36.9 in adult ([facility] [place]) Essential (primary) hypertension ([facility] [place]) Unspecified essential hypertension Hematoma of frontal scalp, sequela- Primary Morbid (severe) obesity due to excess calories ([facility] [place]) Essential (primary) hypertension ([facility] [place]) Unspecified essential hypertension Body mass index (BMI) 35.0-35.9, adult Type 2 diabetes mellitus with diabetic neuropathy, unspecified ([facility] [place] Malignant neoplasm of unspecified ovary ([facility] [place]) Type 2 diabetes mellitus with diabetic cataract ([facility] [place]) Type II or unspecified type diabetes mellitus with ophthalmic manifestations, not stated as uncontrolled Type 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 ([facility] [place]) Chronic kidney disease, stage 3a (HCC) ([facility] [place]) Hypertensive chronic kidney disease with stage 1 through stage 4 chronic kidney disease, or unspecified chronic kidney disease ([facility] [place]) Class 2 severe obesity due to excess calories with serious comorbidity and body mass index (BMI) of 36.0 to 36.9 in adult ([facility] [place]) Closed head injury, sequela Blurry vision, left eye Other specified visual disturbances Pre-operative clearance- Primary Unspecified pre-operative examination Class 2 severe obesity due to excess calories with serious comorbidity and body mass index (BMI) of 36.0 to 36.9 in adult ([facility] [place]) Body mass index (BMI) 35.0-35.9, adult Closed head injury, sequela Hematoma of frontal scalp, sequela Age-related osteoporosis without current pathological fracture ([facility] [place]) Essential (primary) hypertension ([facility] [place]) Unspecified essential hypertension Gastroesophageal reflux disease without esophagitis Esophageal reflux Type 2 diabetes mellitus without complication, without long-term current use of insulin ([facility] [place]) Blurry vision, left eye Other specified visual disturbances Dermatophytosis of nail- Primary Dystrophic nail Other specified disease of nail Pain around toenail, right foot Pain around toenail, left foot documented in this encounter [facility]* Diagnosis S/P reverse total shoulder arthroplasty, right- [facility] S/P reverse total shoulder arthroplasty, right- [facility] Diagnosis Benign essential HTN (CMS/HCC)- Primary Gastroesophageal reflux disease without esophagitis Esophageal reflux Stage 3 chronic kidney disease, unspecified whether stage 3a or 3b CKD (HCC) ([facility]/HCC) Class 2 severe obesity due to excess calories with serious comorbidity and body mass index (BMI) of 36.0 to 36.9 in adult ([facility]/HCC) Menopause Symptomatic menopausal or female climacteric states Encounter for screening mammogram for malignant neoplasm of breast Encounter for subsequent annual wellness visit (AWV) in Medicare patient- Primary Benign essential HTN (CMS/HCC) Gastroesophageal reflux disease without esophagitis Esophageal reflux Stage 3 chronic kidney disease, unspecified whether stage 3a or 3b CKD (HCC) ([facility] [place]) 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, without long-term current use of insulin, unspecified whether stage 3a or 3b CKD (HCC) ([facility] [place]) Acute pain of right shoulder- Primary Class 2 severe obesity due to excess calories with serious comorbidity and body mass index (BMI) of 36.0 to 36.9 in adult ([facility] [place]) Primary osteoarthritis involving multiple joints Preoperative clearance- Primary Unspecified pre-operative examination Type 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 ([facility] [place]) Malignant neoplasm of unspecified ovary ([facility] [place]) 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 elsewhere ([facility] [place]) Secondary hyperparathyroidism of renal origin ([facility] [place]) Secondary hyperparathyroidism (of renal origin) Hypertensive chronic kidney disease with stage 1 through stage 4 chronic kidney disease, or unspecified chronic kidney disease ([facility]/HCC) Age-related osteoporosis without current pathological fracture ([facility] [place]) Essential (primary) hypertension ([facility]/HCC) Unspecified essential hypertension Type 2 diabetes mellitus with diabetic neuropathy, unspecified ([facility] [place]) Secondary hyperparathyroidism ([facility]/HCC) Secondary hyperparathyroidism (of renal origin) Acute pain of right shoulder Essential (primary) hypertension ([facility]/HCC)- Primary Unspecified essential hypertension Fibromyalgia Unspecified myalgia and myositis 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 elsewhere ([facility] [place]) ODALYS (generalized anxiety disorder) ([facility] [place]) Generalized anxiety disorder Type 2 diabetes mellitus without complication, without long-term current use of insulin ([facility] [place]) Fibromyalgia- Primary Unspecified myalgia and myositis 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 elsewhere ([facility] [place]) Class 2 severe obesity due to excess calories with serious comorbidity and body mass index (BMI) of 36.0 to 36.9 in adult ([facility] [place]) ODALYS (generalized anxiety disorder) ([facility] [place]) Generalized anxiety disorder Essential (primary) hypertension ([facility] [place]) Unspecified essential hypertension Age-related osteoporosis without current pathological fracture ([facility] [place]) Primary osteoarthritis involving multiple joints Class 2 severe obesity due to excess calories with serious comorbidity and body mass index (BMI) of 36.0 to 36.9 in adult ([facility] [place])- Primary Essential (primary) hypertension ([facility] [place]) Unspecified essential hypertension Acute non-recurrent pansinusitis Encounter for screening mammogram for malignant neoplasm of breast Hematoma of frontal scalp, subsequent encounter- Primary Closed head injury, subsequent encounter Class 2 severe obesity due to excess calories with serious comorbidity and body mass index (BMI) of 36.0 to 36.9 in adult ([facility] [place]) Essential (primary) hypertension ([facility] [place]) Unspecified essential hypertension Hematoma of frontal scalp, sequela- Primary Morbid (severe) obesity due to excess calories ([facility] [place]) Essential (primary) hypertension ([facility] [place]) Unspecified essential hypertension Body mass index (BMI) 35.0-35.9, adult Type 2 diabetes mellitus with diabetic neuropathy, unspecified ([facility] [place]) Malignant neoplasm of unspecified ovary ([facility] [place]) Type 2 diabetes mellitus with diabetic cataract ([facility] [place]) Type II or unspecified type diabetes mellitus with ophthalmic manifestations, not stated as uncontrolled Type 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 ([facility] [place]) Chronic kidney disease, stage 3a (HCC) ([facility] [place]) Hypertensive chronic kidney disease with stage 1 through stage 4 chronic kidney disease, or unspecified chronic kidney disease ([facility] [place]) Class 2 severe obesity due to excess calories with serious comorbidity and body mass index (BMI) of 36.0 to 36.9 in adult ([facility] [place]) Closed head injury, sequela Blurry vision, left eye Other specified visual disturbances Pre-operative clearance- Primary Unspecified pre-operative examination Class 2 severe obesity due to excess calories with serious comorbidity and body mass index (BMI) of 36.0 to 36.9 in adult ([facility] [place]) Body mass index (BMI) 35.0-35.9, adult Closed head injury, sequela Hematoma of frontal scalp, sequela Age-related osteoporosis without current pathological fracture (CMS/HCC) Essential (primary) hypertension (CMS/HCC) Unspecified essential hypertension Gastroesophageal reflux disease without esophagitis Esophageal reflux Type 2 diabetes mellitus without complication, without long-term current use of insulin (CMS/HCC) Blurry vision, left eye Other specified visual disturbances Acute pain of right shoulder- Primary Status post reverse total arthroplasty of right shoulder documented in this encounter [facility]* Diagnosis Benign essential HTN (CMS/HCC)- [...] pain of right shoulder Essential (primary) hypertension ([facility] [place])- Primary Unspecified essential hypertension Fibromyalgia Unspecified myalgia and myositis 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 elsewhere ([facility] [place]) ODALYS (generalized anxiety disorder) ([facility] [place]) Generalized anxiety disorder Type 2 diabetes mellitus without complication, without long-term current use of insulin ([facility] [place]) Fibromyalgia- Primary Unspecified myalgia and myositis 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 elsewhere ([facility] [place]) Class 2 severe obesity due to excess calories with serious comorbidity and body mass index (BMI) of 36.0 to 36.9 in adult ([facility] [place]) ODALYS (generalized anxiety disorder) ([facility] [place]) Generalized anxiety disorder Essential (primary) hypertension ([facility] [place] Unspecified essential hypertension Age-related osteoporosis without current pathological fracture ([facility] [place]) Primary osteoarthritis involving multiple joints Class 2 severe obesity due to excess calories with serious comorbidity and body mass index (BMI) of 36.0 to 36.9 in adult ([facility] [place])- Primary Essential (primary) hypertension ([facility] [place]) Unspecified essential hypertension Acute non-recurrent pansinusitis Encounter for screening mammogram for malignant neoplasm of breast Hematoma of frontal scalp, subsequent encounter- Primary Closed head injury, subsequent encounter Class 2 severe obesity due to excess calories with serious comorbidity and body mass index (BMI) of 36.0 to 36.9 in adult ([facility] [place]) Essential (primary) hypertension ([facility] [place]) Unspecified essential hypertension Hematoma of frontal scalp, sequela- Primary Morbid (severe) obesity due to excess calories ([facility] [place]) Essential (primary) hypertension ([facility] [place]) Unspecified essential hypertension Body mass index (BMI) 35.0-35.9, adult Type 2 diabetes mellitus with diabetic neuropathy, unspecified ([facility] [place]) Malignant neoplasm of unspecified ovary ([facility] [place]) Type 2 diabetes mellitus with diabetic cataract ([facility] [place]) Type II or unspecified type diabetes mellitus with ophthalmic manifestations, not stated as uncontrolled Type 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 ([facility] [place]) Chronic kidney disease, stage 3a ([facility] [place]) ([facility] [place]) Hypertensive chronic kidney disease with stage 1 through stage 4 chronic kidney disease, or unspecified chronic kidney disease ([facility] [place]) Class 2 severe obesity due to excess calories with serious comorbidity and body mass index (BMI) of 36.0 to 36.9 in adult ([facility] [place]) Closed head injury, sequela Blurry vision, left eye Other specified visual disturbances Pre-operative clearance- Primary Unspecified pre-operative examination Class 2 severe obesity due to excess calories with serious comorbidity and body mass index (BMI) of 36.0 to 36.9 in adult ([facility] [place]) Body mass index (BMI) 35.0-35.9, adult Closed head injury, sequela Hematoma of frontal scalp, sequela Age-related osteoporosis without current pathological fracture ([facility] [place]) Essential (primary) hypertension ([facility] [place]) Unspecified essential hypertension Gastroesophageal reflux disease without esophagitis Esophageal reflux Type 2 diabetes mellitus without complication, without long-term current use of insulin ([facility] [place]) Blurry vision, left eye Other specified visual disturbances Acute pain of right shoulder- Primary Status post reverse total arthroplasty of right shoulder documented in this encounter [facility]* Diagnosis Benign essential HTN ([facility] [place])- Primary Gastroesophageal reflux disease without esophagitis Esophageal reflux Stage 3 chronic kidney disease, unspecified whether stage 3a or 3b CKD (HCC) ([facility] [place]) Class 2 severe obesity due to excess calories with serious comorbidity and body mass index (BMI) of 36.0 to 36.9 in adult ([facility] [place]) Menopause Symptomatic menopausal or female climacteric states Encounter for screening mammogram for malignant neoplasm of breast Encounter for subsequent annual wellness visit (AWV) in Medicare patient- Primary Benign essential HTN ([facility] [place]) Gastroesophageal reflux disease without esophagitis Esophageal reflux Stage 3 chronic kidney disease, unspecified whether stage 3a or 3b CKD (HCC) ([facility] [place]) 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, without long-term current use of insulin, unspecified whether stage 3a or 3b CKD (HCC) ([facility] [place]) Acute pain of right shoulder- Primary Class 2 severe obesity due to excess calories with serious comorbidity and body mass index (BMI) of 36.0 to 36.9 in adult ([facility] [place]) Primary osteoarthritis involving multiple joints Preoperative clearance- Primary Unspecified pre-operative examination Type 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 ([facility] [place]) Malignant neoplasm of unspecified ovary ([facility] [place]) 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 elsewhere ([facility] [place]) Secondary hyperparathyroidism of renal origin ([facility] [place]) Secondary hyperparathyroidism (of renal origin) Hypertensive chronic kidney disease with stage 1 through stage 4 chronic kidney disease, or unspecified chronic kidney disease ([facility] [place]) Age-related osteoporosis without current pathological fracture ([facility] [place]) Essential (primary) hypertension ([facility] [place]) Unspecified essential hypertension Type 2 diabetes mellitus with diabetic neuropathy, unspecified ([facility] [place]) Secondary hyperparathyroidism ([facility] [place]) Secondary hyperparathyroidism (of renal origin) Acute pain of right shoulder Essential (primary) hypertension ([facility] [place])- Primary Unspecified essential hypertension Fibromyalgia Unspecified myalgia and myositis 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 elsewhere ([facility] [place]) ODALYS (generalized anxiety disorder) ([facility] [place]) Generalized anxiety disorder Type 2 diabetes mellitus without complication, without long-term current use of insulin ([facility] [place]) Fibromyalgia- Primary Unspecified myalgia and myositis 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 elsewhere ([facility] [place]) Class 2 severe obesity due to excess calories with serious comorbidity and body mass index (BMI) of 36.0 to 36.9 in adult ([facility] [place]) ODALYS (generalized anxiety disorder) ([facility] [place]) Generalized anxiety disorder Essential (primary) hypertension ([facility] [place]) Unspecified essential hypertension Age-related osteoporosis without current pathological fracture ([facility] [place]) Primary osteoarthritis involving multiple joints Class 2 severe obesity due to excess calories with serious comorbidity and body mass index (BMI) of 36.0 to 36.9 in adult ([facility] [place])- Primary Essential (primary) hypertension ([facility] [place]) Unspecified essential hypertension Acute non-recurrent pansinusitis Encounter for screening mammogram for malignant neoplasm of breast Hematoma of frontal scalp, subsequent encounter- Primary Closed head injury, subsequent encounter Class 2 severe obesity due to excess calories with serious comorbidity and body mass index (BMI) of 36.0 to 36.9 in adult ([facility] [place]) Essential (primary) hypertension ([facility] [place]) Unspecified essential hypertension Hematoma of frontal scalp, sequela- Primary Morbid (severe) obesity due to excess calories ([facility] [place]) Essential (primary) hypertension ([facility] [place]) Unspecified essential hypertension Body mass index (BMI) 35.0-35.9, adult Type 2 diabetes mellitus with diabetic neuropathy, unspecified ([facility] [place]) Malignant neoplasm of unspecified ovary ([facility] [place]) Type 2 diabetes mellitus with diabetic cataract ([facility] [place]) Type II or unspecified type diabetes mellitus with ophthalmic manifestations, not stated as uncontrolled Type 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 ([facility] [place]) Chronic kidney disease, stage 3a (HCC) ([facility] [place]) Hypertensive chronic kidney disease with stage 1 through stage 4 chronic kidney disease, or unspecified chronic kidney disease ([facility]) Class 2 severe obesity due to excess calories with serious comorbidity and body mass index (BMI) of 36.0 to 36.9 in adult ([facility] [place]) Closed head injury, sequela Blurry vision, left eye Other specified visual disturbances Pre-operative clearance- Primary Unspecified pre-operative examination Class 2 severe obesity due to excess calories with serious comorbidity and body mass index (BMI) of 36.0 to 36.9 in adult ([facility] [place]) Body mass index (BMI) 35.0-35.9, adult Closed head injury, sequela Hematoma of frontal scalp, sequela Age-related osteoporosis without current pathological fracture ([facility] [place]) Essential (primary) hypertension ([facility] [place]) Unspecified essential hypertension Gastroesophageal reflux disease without esophagitis Esophageal reflux Type 2 diabetes mellitus without complication, without long-term current use of insulin ([facility] [place]) Blurry vision, left eye Other specified visual disturbances Acute pain of right shoulder- Primary Status post reverse total arthroplasty of right shoulder Shoulder stiffness, right documented in this encounter [facility]* Diagnosis Benign essential HTN (CMS/HCC)- Primary Gastroesophageal reflux disease without esophagitis Esophageal reflux Stage 3 chronic kidney disease, unspecified whether stage 3a or 3b CKD (HCC) ([facility]/H[facility]) Class 2 severe obesity due to excess calories with serious comorbidity and body mass index (BMI) of 36.0 to 36.9 in adult ([facility] [place]) Menopause Symptomatic menopausal or female climacteric states Encounter for screening mammogram for malignant neoplasm of breast Encounter for subsequent annual wellness visit (AWV) in Medicare patient- Primary Benign essential HTN (CMS/HCC) Gastroesophageal reflux disease without esophagitis Esophageal reflux Stage 3 chronic kidney disease, unspecified whether stage 3a or 3b CKD (HCC) ([facility] [place]) 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, without long-term current use of insulin, unspecified whether stage 3a or 3b CKD (HCC) (CMS/HCC) Acute pain of right shoulder- Primary Class 2 severe obesity due to excess calories with serious comorbidity and body mass index (BMI) of 36.0 to 36.9 in adult ([facility] [place]) Primary osteoarthritis involving multiple joints Preoperative clearance- Primary Unspecified pre-operative examination Type 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 (CMS/HCC) Malignant neoplasm of unspecified ovary ([facility] [place]) 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 elsewhere ([facility] [place]) Secondary hyperparathyroidism of renal origin ([facility] [place]) Secondary hyperparathyroidism (of renal origin) Hypertensive chronic kidney disease with stage 1 through stage 4 chronic kidney disease, or unspecified chronic kidney disease ([facility] [place]) Age-related osteoporosis without current pathological fracture ([facility] [place]) Essential (primary) hypertension ([facility] [place]) Unspecified essential hypertension Type 2 diabetes mellitus with diabetic neuropathy, unspecified ([facility] [place]) Secondary hyperparathyroidism ([facility] [place]) Secondary hyperparathyroidism (of renal origin) Acute pain of right shoulder Essential (primary) hypertension ([facility] [place])- Primary Unspecified essential hypertension Fibromyalgia Unspecified myalgia and myositis 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 elsewhere ([facility] [place]) ODALYS (generalized anxiety disorder) ([facility] [place]) Generalized anxiety disorder Type 2 diabetes mellitus without complication, without long-term current use of insulin ([facility] [place]) Fibromyalgia- Primary Unspecified myalgia and myositis 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 elsewhere ([facility] [place]) Class 2 severe obesity due to excess calories with serious comorbidity and body mass index (BMI) of 36.0 to 36.9 in adult ([facility] [place]) ODALYS (generalized anxiety disorder) ([facility] [place]) Generalized anxiety disorder Essential (primary) hypertension ([facility] [place]) Unspecified essential hypertension Age-related osteoporosis without current pathological fracture ([facility] [place]) Primary osteoarthritis involving multiple joints Class 2 severe obesity due to excess calories with serious comorbidity and body mass index (BMI) of 36.0 to 36.9 in adult ([facility] [place])- Primary Essential (primary) hypertension ([facility] [place]) Unspecified essential hypertension Acute non-recurrent pansinusitis Encounter for screening mammogram for malignant neoplasm of breast Hematoma of frontal scalp, subsequent encounter- Primary Closed head injury, subsequent encounter Class 2 severe obesity due to excess calories with serious comorbidity and body mass index (BMI) of 36.0 to 36.9 in adult ([facility] [place]) Essential (primary) hypertension ([facility] [place]) Unspecified essential hypertension Hematoma of frontal scalp, sequela- Primary Morbid (severe) obesity due to excess calories ([facility] [place]) Essential (primary) hypertension ([facility] [place]) Unspecified essential hypertension Body mass index (BMI) 35.0-35.9, adult Type 2 diabetes mellitus with diabetic neuropathy, unspecified ([facility] [place]) Malignant neoplasm of unspecified ovary ([facility] [place]) Type 2 diabetes mellitus with diabetic cataract ([facility] [place]) Type II or unspecified type diabetes mellitus with ophthalmic manifestations, not stated as uncontrolled Type 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 ([facility] [place]) Chronic kidney disease, stage 3a (HCC) ([facility] [place]) Hypertensive chronic kidney disease with stage 1 through stage 4 chronic kidney disease, or unspecified chronic kidney disease ([facility] [place]) Class 2 severe obesity due to excess calories with serious comorbidity and body mass index (BMI) of 36.0 to 36.9 in adult ([facility] [place]) Closed head injury, sequela Blurry vision, left eye Other specified visual disturbances Pre-operative clearance- Primary Unspecified pre-operative examination Class 2 severe obesity due to excess calories with serious comorbidity and body mass index (BMI) of 36.0 to 36.9 in adult ([facility] [place]) Body mass index (BMI) 35.0-35.9, adult Closed head injury, sequela Hematoma of frontal scalp, sequela Age-related osteoporosis without current pathological fracture ([facility] [place]) Essential (primary) hypertension ([facility] [place]) Unspecified essential hypertension Gastroesophageal reflux disease without esophagitis Esophageal reflux Type 2 diabetes mellitus without complication, without long-term current use of insulin ([facility] [place]) Blurry vision, left eye Other specified visual disturbances Acute pain of right shoulder- Primary Status post reverse total arthroplasty of right shoulder Shoulder stiffness, right documented in this encounter [facility] HealthcareEvaluation note* Diagnosis Benign essential HTN ([facility] [place])- Primary Gastroesophageal reflux disease without esophagitis Esophageal reflux Stage 3 chronic kidney disease, unspecified whether stage 3a or 3b CKD (HCC) ([facility] [place]) Class 2 severe obesity due to excess calories with serious comorbidity and body mass index (BMI) of 36.0 to 36.9 in adult ([facility] [place]) Menopause Symptomatic menopausal or female climacteric states Encounter for screening mammogram for malignant neoplasm of breast Encounter for subsequent annual wellness visit (AWV) in Medicare patient- Primary Benign essential HTN ([facility] [place]) Gastroesophageal reflux disease without esophagitis Esophageal reflux Stage 3 chronic kidney disease, unspecified whether stage 3a or 3b CKD (HCC) ([facility] [place]) 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, without long-term current use of insulin, unspecified whether stage 3a or 3b CKD (HCC) ([facility] [place]) Acute pain of right shoulder- Primary Class 2 severe obesity due to excess calories with serious comorbidity and body mass index (BMI) of 36.0 to 36.9 in adult ([facility] [place]) Primary osteoarthritis involving multiple joints Preoperative clearance- Primary Unspecified pre-operative examination Type 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 ([facility] [place]) Malignant neoplasm of unspecified ovary ([facility] [place]) 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 elsewhere ([facility] [place]) Secondary hyperparathyroidism of renal origin ([facility] [place]) Secondary hyperparathyroidism (of renal origin) Hypertensive chronic kidney disease with stage 1 through stage 4 chronic kidney disease, or unspecified chronic kidney disease ([facility] [place]) Age-related osteoporosis without current pathological fracture ([facility] [place]) Essential (primary) hypertension ([facility] [place]) Unspecified essential hypertension Type 2 diabetes mellitus with diabetic neuropathy, unspecified ([facility] [place]) Secondary hyperparathyroidism ([facility] [place]) Secondary hyperparathyroidism (of renal origin) Acute pain of right shoulder Essential (primary) hypertension ([facility] [place])- Primary Unspecified essential hypertension Fibromyalgia Unspecified myalgia and myositis 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 elsewhere ([facility] [place]) ODALYS (generalized anxiety disorder) ([facility] [place]) Generalized anxiety disorder Type 2 diabetes mellitus without complication, without long-term current use of insulin ([facility] [place]) Fibromyalgia- Primary Unspecified myalgia and myositis 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 elsewhere ([facility] [place]) Class 2 severe obesity due to excess calories with serious comorbidity and body mass index (BMI) of 36.0 to 36.9 in adult ([facility] [place]) ODALYS (generalized anxiety disorder) ([facility] [place]) Generalized anxiety disorder Essential (primary) hypertension ([facility] [place]) Unspecified essential hypertension Age-related osteoporosis without current pathological fracture ([facility] [place]) Primary osteoarthritis involving multiple joints Class 2 severe obesity due to excess calories with serious comorbidity and body mass index (BMI) of 36.0 to 36.9 in adult ([facility] [place])- Primary Essential (primary) hypertension ([facility] [place]) Unspecified essential hypertension Acute non-recurrent pansinusitis Encounter for screening mammogram for malignant neoplasm of breast Hematoma of frontal scalp, subsequent encounter- Primary Closed head injury, subsequent encounter Class 2 severe obesity due to excess calories with serious comorbidity and body mass index (BMI) of 36.0 to 36.9 in adult ([facility] [place]) Essential (primary) hypertension ([facility] [place]) Unspecified essential hypertension Hematoma of frontal scalp, sequela- Primary Morbid (severe) obesity due to excess calories (CMS/HCC) Essential (primary) hypertension (CMS/HCC) Unspecified essential hypertension Body mass index (BMI) 35.0-35.9, adult Type 2 diabetes mellitus with diabetic neuropathy, unspecified ([facility] [place]) Malignant neoplasm of unspecified ovary ([facility] [place]) Type 2 diabetes mellitus with diabetic cataract ([facility] [place]) Type II or unspecified type diabetes mellitus with ophthalmic manifestations, not stated as uncontrolled Type 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 ([facility] [place]) Chronic kidney disease, stage 3a (HCC) ([facility] [place]) Hypertensive chronic kidney disease with stage 1 through stage 4 chronic kidney disease, or unspecified chronic kidney disease (CMS/HCC) Class 2 severe obesity due to excess calories with serious comorbidity and body mass index (BMI) of 36.0 to 36.9 in adult ([facility] [place]) Closed head injury, sequela Blurry vision, left eye Other specified visual disturbances Pre-operative clearance- Primary Unspecified pre-operative examination Class 2 severe obesity due to excess calories with serious comorbidity and body mass index (BMI) of 36.0 to 36.9 in adult ([facility] [place]) Body mass index (BMI) 35.0-35.9, adult Closed head injury, sequela Hematoma of frontal scalp, sequela Age-related osteoporosis without current pathological fracture ([facility] [place]) Essential (primary) hypertension ([facility] [place]) Unspecified essential hypertension Gastroesophageal reflux disease without esophagitis Esophageal reflux Type 2 diabetes mellitus without complication, without long-term current use of insulin ([facility] [place]) Blurry vision, left eye Other specified visual disturbances Encounter for subsequent annual wellness visit (AWV) in Medicare patient- Primary Type 2 diabetes mellitus with diabetic neuropathy, without long-term current use of insulin ([facility] [place]) Essential (primary) hypertension ([facility]/HCC) Unspecified essential hypertension Hypertensive chronic kidney disease with stage 1 through stage 4 chronic kidney disease, or unspecified chronic kidney disease ([facility] [place]) Gastroesophageal reflux disease without esophagitis Esophageal reflux Age-related osteoporosis without current pathological fracture ([facility] [place]) Fibromyalgia Unspecified myalgia and myositis Class 2 severe obesity due to excess calories with serious comorbidity and body mass index (BMI) of 36.0 to 36.9 in adult ([facility] [place]) Type 2 diabetes mellitus without complication, without long-term current use of insulin ([facility] [place]) Mixed hyperlipidemia ([facility] [place]) Mixed hyperlipidemia documented in this encounter [facility] HealthcareEvaluation note* Diagnosis Benign essential HTN ([facility]/HCC)- Primary Gastroesophageal reflux disease without esophagitis Esophageal reflux Stage 3 chronic kidney disease, unspecified whether stage 3a or 3b CKD (HCC) ([facility] [place]) Class 2 severe obesity due to excess calories with serious comorbidity and body mass index (BMI) of 36.0 to 36.9 in adult ([facility] [place]) Menopause Symptomatic menopausal or female climacteric states Encounter for screening mammogram for malignant neoplasm of breast Encounter for subsequent annual wellness visit (AWV) in Medicare patient- Primary Benign essential HTN ([facility]/HCC) Gastroesophageal reflux disease without esophagitis Esophageal reflux Stage 3 chronic kidney disease, unspecified whether stage 3a or 3b CKD (HCC) ([facility] [place]) 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, without long-term current use of insulin, unspecified whether stage 3a or 3b CKD (HCC) ([facility] [place]) Acute pain of right shoulder- Primary Class 2 severe obesity due to excess calories with serious comorbidity and body mass index (BMI) of 36.0 to 36.9 in adult ([facility] [place]) Primary osteoarthritis involving multiple joints Preoperative clearance- Primary Unspecified pre-operative examination Type 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 ([facility] [place]) Malignant neoplasm of unspecified ovary ([facility] [place]) 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 elsewhere ([facility] [place]) Secondary hyperparathyroidism of renal origin ([facility] [place]) Secondary hyperparathyroidism (of renal origin) Hypertensive chronic kidney disease with stage 1 through stage 4 chronic kidney disease, or unspecified chronic kidney disease ([facility] [place]) Age-related osteoporosis without current pathological fracture ([facility] [place]) Essential (primary) hypertension ([facility] [place]) Unspecified essential hypertension Type 2 diabetes mellitus with diabetic neuropathy, unspecified ([facility] [place]) Secondary hyperparathyroidism ([facility] [place]) Secondary hyperparathyroidism (of renal origin) Acute pain of right shoulder Essential (primary) hypertension ([facility] [place])- Primary Unspecified essential hypertension Fibromyalgia Unspecified myalgia and myositis 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 elsewhere ([facility] [place]) ODALYS (generalized anxiety disorder) ([facility] [place]) Generalized anxiety disorder Type 2 diabetes mellitus without complication, without long-term current use of insulin ([facility] [place]) Fibromyalgia- Primary Unspecified myalgia and myositis 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 elsewhere ([facility] [place]) Class 2 severe obesity due to excess calories with serious comorbidity and body mass index (BMI) of 36.0 to 36.9 in adult ([facility] [place]) ODALYS (generalized anxiety disorder) ([facility] [place]) Generalized anxiety disorder Essential (primary) hypertension ([facility] [place]) Unspecified essential hypertension Age-related osteoporosis without current pathological fracture ([facility] [place]) Primary osteoarthritis involving multiple joints Class 2 severe obesity due to excess calories with serious comorbidity and body mass index (BMI) of 36.0 to 36.9 in adult ([facility] [place])- Primary Essential (primary) hypertension ([facility] [place]) Unspecified essential hypertension Acute non-recurrent pansinusitis Encounter for screening mammogram for malignant neoplasm of breast Hematoma of frontal scalp, subsequent encounter- Primary Closed head injury, subsequent encounter Class 2 severe obesity due to excess calories with serious comorbidity and body mass index (BMI) of 36.0 to 36.9 in adult ([facility] [place]) Essential (primary) hypertension ([facility] [place]) Unspecified essential hypertension Hematoma of frontal scalp, sequela- Primary Morbid (severe) obesity due to excess calories ([facility] [place]) Essential (primary) hypertension ([facility] [place]) Unspecified essential hypertension Body mass index (BMI) 35.0-35.9, adult Type 2 diabetes mellitus with diabetic neuropathy, unspecified ([facility] [place]) Malignant neoplasm of unspecified ovary ([facility] [place]) Type 2 diabetes mellitus with diabetic cataract ([facility] [place]) Type II or unspecified type diabetes mellitus with ophthalmic manifestations, not stated as uncontrolled Type 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 ([facility] [place]) Chronic kidney disease, stage 3a ([facility] [place]) ([facility] [place]) Hypertensive chronic kidney disease with stage 1 through stage 4 chronic kidney disease, or unspecified chronic kidney disease ([facility] [place]) Class 2 severe obesity due to excess calories with serious comorbidity and body mass index (BMI) of 36.0 to 36.9 in adult ([facility] [place]) Closed head injury, sequela Blurry vision, left eye Other specified visual disturbances Pre-operative clearance- Primary Unspecified pre-operative examination Class 2 severe obesity due to excess calories with serious comorbidity and body mass index (BMI) of 36.0 to 36.9 in adult ([facility] [place]) Body mass index (BMI) 35.0-35.9, adult Closed head injury, sequela Hematoma of frontal scalp, sequela Age-related osteoporosis without current pathological fracture ([facility] [place]) Essential (primary) hypertension ([facility] [place]) Unspecified essential hypertension Gastroesophageal reflux disease without esophagitis Esophageal reflux Type 2 diabetes mellitus without complication, without long-term current use of insulin ([facility] [place]) Blurry vision, left eye Other specified visual disturbances Encounter for subsequent annual wellness visit (AWV) in Medicare patient- Primary Type 2 diabetes mellitus with diabetic neuropathy, without long-term current use of insulin ([facility] [place]) Essential (primary) hypertension ([facility] [place]) Unspecified essential hypertension Hypertensive chronic kidney disease with stage 1 through stage 4 chronic kidney disease, or unspecified chronic kidney disease ([facility] [place]) Gastroesophageal reflux disease without esophagitis Esophageal reflux Age-related osteoporosis without current pathological fracture ([facility] [place]) Fibromyalgia Unspecified myalgia and myositis Class 2 severe obesity due to excess calories with serious comorbidity and body mass index (BMI) of 36.0 to 36.9 in adult ([facility] [place]) Type 2 diabetes mellitus without complication, without long-term current use of insulin ([facility] [place]) Mixed hyperlipidemia ([facility] [place]) Mixed hyperlipidemia Acute pain of right shoulder- Primary Status post reverse total arthroplasty of right shoulder Shoulder stiffness, right documented in this encounter [facility] HealthcareEvaluation note* Diagnosis Benign essential HTN ([facility] [place])- Primary Gastroesophageal reflux disease without esophagitis Esophageal reflux Stage 3 chronic kidney disease, unspecified whether stage 3a or 3b CKD (HCC) ([facility] [place]) Class 2 severe obesity due to excess calories with serious comorbidity and body mass index (BMI) of 36.0 to 36.9 in adult ([facility] [place]) Menopause Symptomatic menopausal or female climacteric states Encounter for screening mammogram for malignant neoplasm of breast Encounter for subsequent annual wellness visit (AWV) in Medicare patient- Primary Benign essential HTN ([facility] [place]) Gastroesophageal reflux disease without esophagitis Esophageal reflux Stage 3 chronic kidney disease, unspecified whether stage 3a or 3b CKD (HCC) ([facility] [place]) 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, without long-term current use of insulin, unspecified whether stage 3a or 3b CKD (HCC) ([facility] [place]) Acute pain of right shoulder- Primary Class 2 severe obesity due to excess calories with serious comorbidity and body mass index (BMI) of 36.0 to 36.9 in adult ([facility] [place]) Primary osteoarthritis involving multiple joints Preoperative clearance- Primary Unspecified pre-operative examination Type 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 ([facility] [place]) Malignant neoplasm of unspecified ovary ([facility] [place]) 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 elsewhere ([facility] [place]) Secondary hyperparathyroidism of renal origin ([facility] [place]) Secondary hyperparathyroidism (of renal origin) Hypertensive chronic kidney disease with stage 1 through stage 4 chronic kidney disease, or unspecified chronic kidney disease ([facility] [place]) Age-related osteoporosis without current pathological fracture ([facility] [place] Essential (primary) hypertension ([facility] [place]) Unspecified essential hypertension Type 2 diabetes mellitus with diabetic neuropathy, unspecified ([facility] [place]) Secondary hyperparathyroidism ([facility] [place]) Secondary hyperparathyroidism (of renal origin) Acute pain of right shoulder Essential (primary) hypertension ([facility] [place])- Primary Unspecified essential hypertension Fibromyalgia Unspecified myalgia and myositis 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 elsewhere ([facility] [place]) ODALYS (generalized anxiety disorder) ([facility] [place]) Generalized anxiety disorder Type 2 diabetes mellitus without complication, without long-term current use of insulin ([facility] [place]) Fibromyalgia- Primary Unspecified myalgia and myositis 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 elsewhere ([facility] [place]) Class 2 severe obesity due to excess calories with serious comorbidity and body mass index (BMI) of 36.0 to 36.9 in adult ([facility] [place]) ODALYS (generalized anxiety disorder) ([facility] [place]) Generalized anxiety disorder Essential (primary) hypertension ([facility] [place]) Unspecified essential hypertension Age-related osteoporosis without current pathological fracture ([facility] [place]) Primary osteoarthritis involving multiple joints Class 2 severe obesity due to excess calories with serious comorbidity and body mass index (BMI) of 36.0 to 36.9 in adult ([facility] [place] Primary Essential (primary) hypertension ([facility] [place]) Unspecified essential hypertension Acute non-recurrent pansinusitis Encounter for screening mammogram for malignant neoplasm of breast Hematoma of frontal scalp, subsequent encounter- Primary Closed head injury, subsequent encounter Class 2 severe obesity due to excess calories with serious comorbidity and body mass index (BMI) of 36.0 to 36.9 in adult ([facility] [place]) Essential (primary) hypertension ([facility] [place]) Unspecified essential hypertension Hematoma of frontal scalp, sequela- Primary Morbid (severe) obesity due to excess calories ([facility] [place]) Essential (primary) hypertension ([facility] [place]) Unspecified essential hypertension Body mass index (BMI) 35.0-35.9, adult Type 2 diabetes mellitus with diabetic neuropathy, unspecified ([facility] [place]) Malignant neoplasm of unspecified ovary ([facility] [place]) Type 2 diabetes mellitus with diabetic cataract ([facility] [place]) Type II or unspecified type diabetes mellitus with ophthalmic manifestations, not stated as uncontrolled Type 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 ([facility] [place]) Chronic kidney disease, stage 3a (HCC) ([facility] [place]) Hypertensive chronic kidney disease with stage 1 through stage 4 chronic kidney disease, or unspecified chronic kidney disease ([facility] [place]) Class 2 severe obesity due to excess calories with serious comorbidity and body mass index (BMI) of 36.0 to 36.9 in adult ([facility] [place]) Closed head injury, sequela Blurry vision, left eye Other specified visual disturbances Pre-operative clearance- Primary Unspecified pre-operative examination Class 2 severe obesity due to excess calories with serious comorbidity and body mass index (BMI) of 36.0 to 36.9 in adult ([facility] [place]) Body mass index (BMI) 35.0-35.9, adult Closed head injury, sequela Hematoma of frontal scalp, sequela Age-related osteoporosis without current pathological fracture ([facility] [place]) Essential (primary) hypertension ([facility] [place]) Unspecified essential hypertension Gastroesophageal reflux disease without esophagitis Esophageal reflux Type 2 diabetes mellitus without complication, without long-term current use of insulin ([facility] [place]) Blurry vision, left eye Other specified visual disturbances Encounter for subsequent annual wellness visit (AWV) in Medicare patient- Primary Type 2 diabetes mellitus with diabetic neuropathy, without long-term current use of insulin ([facility] [place]) Essential (primary) hypertension ([facility] [place]) Unspecified essential hypertension Hypertensive chronic kidney disease with stage 1 through stage 4 chronic kidney disease, or unspecified chronic kidney disease ([facility] [place]) Gastroesophageal reflux disease without esophagitis Esophageal reflux Age-related osteoporosis without current pathological fracture ([facility] [place]) Fibromyalgia Unspecified myalgia and myositis Class 2 severe obesity due to excess calories with serious comorbidity and body mass index (BMI) of 36.0 to 36.9 in adult ([facility] [place]) Type 2 diabetes mellitus without complication, without long-term current use of insulin ([facility] [place]) Mixed hyperlipidemia ([facility] [place]) Mixed hyperlipidemia Acute pain of right shoulder- Primary Status post reverse total arthroplasty of right shoulder Shoulder stiffness, right documented in this encounter [facility] HealthcareEvaluation [facility]* Diagnosis Benign essential HTN ([facility] [place])- Primary Gastroesophageal reflux disease without esophagitis Esophageal reflux Stage 3 chronic kidney disease, unspecified whether stage 3a or 3b CKD ([facility] [place]) ([facility] [place]) Class 2 severe obesity due to excess calories with serious comorbidity and body mass index (BMI) of 36.0 to 36.9 in adult ([facility] [place]) Menopause Symptomatic menopausal or female climacteric states Encounter for screening mammogram for malignant neoplasm of breast Encounter for subsequent annual wellness visit (AWV) in Medicare patient- Primary Benign essential HTN ([facility] [place]) Gastroesophageal reflux disease without esophagitis Esophageal reflux Stage 3 chronic kidney disease, unspecified whether stage 3a or 3b CKD (HCC) ([facility] [place]) 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, without long-term current use of insulin, unspecified whether stage 3a or 3b CKD (HCC) ([facility] [place]) Acute pain of right shoulder- Primary Class 2 severe obesity due to excess calories with serious comorbidity and body mass index (BMI) of 36.0 to 36.9 in adult ([facility] [place]) Primary osteoarthritis involving multiple joints Preoperative clearance- Primary Unspecified pre-operative examination Type 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 ([facility] [place]) Malignant neoplasm of unspecified ovary ([facility] [place]) 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 elsewhere ([facility] [place]) Secondary hyperparathyroidism of renal origin ([facility] [place]) Secondary hyperparathyroidism (of renal origin) Hypertensive chronic kidney disease with stage 1 through stage 4 chronic kidney disease, or unspecified chronic kidney disease ([facility] [place]) Age-related osteoporosis without current pathological fracture ([facility] [place]) Essential (primary) hypertension ([facility] [place]) Unspecified essential hypertension Type 2 diabetes mellitus with diabetic neuropathy, unspecified ([facility] [place]) Secondary hyperparathyroidism ([facility] [place]) Secondary hyperparathyroidism (of renal origin) Acute pain of right shoulder Essential (primary) hypertension ([facility] [place])- Primary Unspecified essential hypertension Fibromyalgia Unspecified myalgia and myositis 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 elsewhere ([facility] [place]) ODALYS (generalized anxiety disorder) ([facility] [place]) Generalized anxiety disorder Type 2 diabetes mellitus without complication, without long-term current use of insulin ([facility] [place]) Fibromyalgia- Primary Unspecified myalgia and myositis 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 elsewhere ([facility] [place]) Class 2 severe obesity due to excess calories with serious comorbidity and body mass index (BMI) of 36.0 to 36.9 in adult ([facility] [place]) ODALSY (generalized anxiety disorder) ([facility] [place]) Generalized anxiety disorder Essential (primary) hypertension ([facility] [place]) Unspecified essential hypertension Age-related osteoporosis without current pathological fracture ([facility] [place]) Primary osteoarthritis involving multiple joints Class 2 severe obesity due to excess calories with serious comorbidity and body mass index (BMI) of 36.0 to 36.9 in adult ([facility] [place])- Primary Essential (primary) hypertension ([facility] [place]) Unspecified essential hypertension Acute non-recurrent pansinusitis Encounter for screening mammogram for malignant neoplasm of breast Hematoma of frontal scalp, subsequent encounter- Primary Closed head injury, subsequent encounter Class 2 severe obesity due to excess calories with serious comorbidity and body mass index (BMI) of 36.0 to 36.9 in adult ([facility] [place]) Essential (primary) hypertension ([facility] [place]) Unspecified essential hypertension Hematoma of frontal scalp, sequela- Primary Morbid (severe) obesity due to excess calories ([facility] [place]) Essential (primary) hypertension ([facility] [place]) Unspecified essential hypertension Body mass index (BMI) 35.0-35.9, adult Type 2 diabetes mellitus with diabetic neuropathy, unspecified ([facility] [place]) Malignant neoplasm of unspecified ovary ([facility] [place]) Type 2 diabetes mellitus with diabetic cataract ([facility] [place]) Type II or unspecified type diabetes mellitus with ophthalmic manifestations, not stated as uncontrolled Type 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 ([facility] [place]) Chronic kidney disease, stage 3a ([facility] [place]) ([facility] [place]) Hypertensive chronic kidney disease with stage 1 through stage 4 chronic kidney disease, or unspecified chronic kidney disease ([facility] [place]) Class 2 severe obesity due to excess calories with serious comorbidity and body mass index (BMI) of 36.0 to 36.9 in adult ([facility] [place]) Closed head injury, sequela Blurry vision, left eye Other specified visual disturbances Pre-operative clearance- Primary Unspecified pre-operative examination Class 2 severe obesity due to excess calories with serious comorbidity and body mass index (BMI) of 36.0 to 36.9 in adult ([facility] [place]) Body mass index (BMI) 35.0-35.9, adult Closed head injury, sequela Hematoma of frontal scalp, sequela Age-related osteoporosis without current pathological fracture ([facility] [place]) Essential (primary) hypertension ([facility] [place]) Unspecified essential hypertension Gastroesophageal reflux disease without esophagitis Esophageal reflux Type 2 diabetes mellitus without complication, without long-term current use of insulin ([facility] [place]) Blurry vision, left eye Other specified visual disturbances Encounter for subsequent annual wellness visit (AWV) in Medicare patient- Primary Type 2 diabetes mellitus with diabetic neuropathy, without long-term current use of insulin ([facility] [place]) Essential (primary) hypertension ([facility] [place]) Unspecified essential hypertension Hypertensive chronic kidney disease with stage 1 through stage 4 chronic kidney disease, or unspecified chronic kidney disease ([facility] [place]) Gastroesophageal reflux disease without esophagitis Esophageal reflux Age-related osteoporosis without current pathological fracture ([facility] [place]) Fibromyalgia Unspecified myalgia and myositis Class 2 severe obesity due to excess calories with serious comorbidity and body mass index (BMI) of 36.0 to 36.9 in adult ([facility] [place]) Type 2 diabetes mellitus without complication, without long-term current use of insulin ([facility] [place]) Mixed hyperlipidemia ([facility] [place]) Mixed hyperlipidemia Acute pain of right shoulder- Primary Status post reverse total arthroplasty of right shoulder documented in this encounter [facility] HealthcareEvaluation note* Diagnosis Benign essential HTN ([facility] [place])- Primary Gastroesophageal reflux disease without esophagitis Esophageal reflux Stage 3 chronic kidney disease, unspecified whether stage 3a or 3b CKD (HCC) ([facility] [place]) Class 2 severe obesity due to excess calories with serious comorbidity and body mass index (BMI) of 36.0 to 36.9 in adult ([facility] [place]) Menopause Symptomatic menopausal or female climacteric states Encounter for screening mammogram for malignant neoplasm of breast Encounter for subsequent annual wellness visit (AWV) in Medicare patient- Primary Benign essential HTN ([facility] [place]) Gastroesophageal reflux disease without esophagitis Esophageal reflux Stage 3 chronic kidney disease, unspecified whether stage 3a or 3b CKD (HCC) ([facility] [place]) 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, without long-term current use of insulin, unspecified whether stage 3a or 3b CKD (HCC) ([facility] [place]) Acute pain of right shoulder- Primary Class 2 severe obesity due to excess calories with serious comorbidity and body mass index (BMI) of 36.0 to 36.9 in adult ([facility] [place]) Primary osteoarthritis involving multiple joints Preoperative clearance- Primary Unspecified pre-operative examination Type 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 ([facility] [place]) Malignant neoplasm of unspecified ovary ([facility] [place] 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 elsewhere ([facility] [place]) Secondary hyperparathyroidism of renal origin ([facility] [place]) Secondary hyperparathyroidism (of renal origin) Hypertensive chronic kidney disease with stage 1 through stage 4 chronic kidney disease, or unspecified chronic kidney disease ([facility] [place]) Age-related osteoporosis without current pathological fracture ([facility] [place] Essential (primary) hypertension ([facility] [place]) Unspecified essential hypertension Type 2 diabetes mellitus with diabetic neuropathy, unspecified ([facility] [place]) Secondary hyperparathyroidism ([facility] [place]) Secondary hyperparathyroidism (of renal origin) Acute pain of right shoulder Essential (primary) hypertension ([facility] [place])- Primary Unspecified essential hypertension Fibromyalgia Unspecified myalgia and myositis 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 elsewhere ([facility] [place]) ODALYS (generalized anxiety disorder) ([facility] [place]) Generalized anxiety disorder Type 2 diabetes mellitus without complication, without long-term current use of insulin Fibromyalgia- Primary Unspecified myalgia and myositis 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 elsewhere ([facility] [place]) Class 2 severe obesity due to excess calories with serious comorbidity and body mass index (BMI) of 36.0 to 36.9 in adult ([facility] [place]) ODALYS (generalized anxiety disorder) ([facility] [place]) Generalized anxiety disorder Essential (primary) hypertension ([facility] [place]) Unspecified essential hypertension Age-related osteoporosis without current pathological fracture ([facility] [place]) Primary osteoarthritis involving multiple joints Class 2 severe obesity due to excess calories with serious comorbidity and body mass index (BMI) of 36.0 to 36.9 in adult ([facility] [place])- Primary Essential (primary) hypertension ([facility] [place]) Unspecified essential hypertension Acute non-recurrent pansinusitis Encounter for screening mammogram for malignant neoplasm of breast Hematoma of frontal scalp, subsequent encounter- Primary Closed head injury, subsequent encounter Class 2 severe obesity due to excess calories with serious comorbidity and body mass index (BMI) of 36.0 to 36.9 in adult ([facility] [place]) Essential (primary) hypertension ([facility]) Unspecified essential hypertension Hematoma of frontal scalp, sequela- Primary Morbid (severe) obesity due to excess calories ([facility] [place]) Essential (primary) hypertension ([facility] [place]) Unspecified essential hypertension Body mass index (BMI) 35.0-35.9, adult Type 2 diabetes mellitus with diabetic neuropathy, unspecified ([facility] [place]) Malignant neoplasm of unspecified ovary ([facility] [place] Type 2 diabetes mellitus with diabetic cataract ([facility] [place]) Type II or unspecified type diabetes mellitus with ophthalmic manifestations, not stated as uncontrolled Type 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 ([facility] [place]) Chronic kidney disease, stage 3a (HCC) ([facility] [place]) Hypertensive chronic kidney disease with stage 1 through stage 4 chronic kidney disease, or unspecified chronic kidney disease ([facility] [place]) Class 2 severe obesity due to excess calories with serious comorbidity and body mass index (BMI) of 36.0 to 36.9 in adult ([facility] [place]) Closed head injury, sequela Blurry vision, left eye Other specified visual disturbances Pre-operative clearance- Primary Unspecified pre-operative examination Class 2 severe obesity due to excess calories with serious comorbidity and body mass index (BMI) of 36.0 to 36.9 in adult ([facility] [place]) Body mass index (BMI) 35.0-35.9, adult Closed head injury, sequela Hematoma of frontal scalp, sequela Age-related osteoporosis without current pathological fracture ([facility] [place]) Essential (primary) hypertension ([facility] [place]) Unspecified essential hypertension Gastroesophageal reflux disease without esophagitis Esophageal reflux Type 2 diabetes mellitus without complication, without long-term current use of insulin Blurry vision, left eye Other specified visual disturbances Encounter for subsequent annual wellness visit (AWV) in Medicare patient- Primary Type 2 diabetes mellitus with diabetic neuropathy, without long-term current use of insulin ([facility] [place]) Essential (primary) hypertension ([facility] [place]) Unspecified essential hypertension Hypertensive chronic kidney disease with stage 1 through stage 4 chronic kidney disease, or unspecified chronic kidney disease ([facility] [place]) Gastroesophageal reflux disease without esophagitis Esophageal reflux Age-related osteoporosis without current pathological fracture ([facility] [place]) Fibromyalgia Unspecified myalgia and myositis Class 2 severe obesity due to excess calories with serious comorbidity and body mass index (BMI) of 36.0 to 36.9 in adult ([facility] [place]) Type 2 diabetes mellitus without complication, without long-term current use of insulin Mixed hyperlipidemia ([facility] [place]) Mixed hyperlipidemia Type 2 diabetes mellitus with diabetic neuropathy, unspecified ([facility] [place]) documented in this encounter [facility] HealthcareEvaluation note* Diagnosis Benign essential HTN ([facility] [place] Primary Gastroesophageal reflux disease without esophagitis Esophageal reflux Stage 3 chronic kidney disease, unspecified whether stage 3a or 3b CKD (HCC) ([facility] [place]) Class 2 severe obesity due to excess calories with serious comorbidity and body mass index (BMI) of 36.0 to 36.9 in adult ([facility] [place]) Menopause Symptomatic menopausal or female climacteric states Encounter for screening mammogram for malignant neoplasm of breast Encounter for subsequent annual wellness visit (AWV) in Medicare patient- Primary Benign essential HTN ([facility] [place]) Gastroesophageal reflux disease without esophagitis Esophageal reflux Stage 3 chronic kidney disease, unspecified whether stage 3a or 3b CKD (HCC) ([facility] [place]) 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, without long-term current use of insulin, unspecified whether stage 3a or 3b CKD (HCC) ([facility] - [place]) Acute pain of right shoulder- Primary Class 2 severe obesity due to excess calories with serious comorbidity and body mass index (BMI) of 36.0 to 36.9 in adult ([facility] [place]) Primary osteoarthritis involving multiple joints Preoperative clearance- Primary Unspecified pre-operative examination Type 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 ([facility] [place]) Malignant neoplasm of unspecified ovary ([facility] [place]) 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 elsewhere ([facility] [place]) Secondary hyperparathyroidism of renal origin ([facility] [place]) Secondary hyperparathyroidism (of renal origin) Hypertensive chronic kidney disease with stage 1 through stage 4 chronic kidney disease, or unspecified chronic kidney disease ([facility] [place]) Age-related osteoporosis without current pathological fracture ([facility] [place] Essential (primary) hypertension ([facility] [place]) Unspecified essential hypertension Type 2 diabetes mellitus with diabetic neuropathy, unspecified ([facility] [place]) Secondary hyperparathyroidism ([facility] [place]) Secondary hyperparathyroidism (of renal origin) Acute pain of right shoulder Essential (primary) hypertension ([facility] [place] Primary Unspecified essential hypertension Fibromyalgia Unspecified myalgia and myositis 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 elsewhere ([facility] [place]) ODALYS (generalized anxiety disorder) ([facility] [place]) Generalized anxiety disorder Type 2 diabetes mellitus without complication, without long-term current use of insulin Fibromyalgia- Primary Unspecified myalgia and myositis 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 elsewhere ([facility] [place]) Class 2 severe obesity due to excess calories with serious comorbidity and body mass index (BMI) of 36.0 to 36.9 in adult ([facility] [place]) ODALYS (generalized anxiety disorder) ([facility] [place]) Generalized anxiety disorder Essential (primary) hypertension ([facility] [place]) Unspecified essential hypertension Age-related osteoporosis without current pathological fracture ([facility] [place]) Primary osteoarthritis involving multiple joints Class 2 severe obesity due to excess calories with serious comorbidity and body mass index (BMI) of 36.0 to 36.9 in adult ([facility] [place])- Primary Essential (primary) hypertension ([facility]) Unspecified essential hypertension Acute non-recurrent pansinusitis Encounter for screening mammogram for malignant neoplasm of breast Hematoma of frontal scalp, subsequent encounter- Primary Closed head injury, subsequent encounter Class 2 severe obesity due to excess calories with serious comorbidity and body mass index (BMI) of 36.0 to 36.9 in adult ([facility] [place]) Essential (primary) hypertension ([facility]/HCC) Unspecified essential hypertension Hematoma of frontal scalp, sequela- Primary Morbid (severe) obesity due to excess calories ([facility] [place]) Essential (primary) hypertension ([facility] [place]) Unspecified essential hypertension Body mass index (BMI) 35.0-35.9, adult Type 2 diabetes mellitus with diabetic neuropathy, unspecified ([facility] [place]) Malignant neoplasm of unspecified ovary ([facility] [place]) Type 2 diabetes mellitus with diabetic cataract ([facility] [place]) Type II or unspecified type diabetes mellitus with ophthalmic manifestations, not stated as uncontrolled Type 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 ([facility] [place]) Chronic kidney disease, stage 3a (HCC) ([facility] [place]) Hypertensive chronic kidney disease with stage 1 through stage 4 chronic kidney disease, or unspecified chronic kidney disease ([facility] [place]) Class 2 severe obesity due to excess calories with serious comorbidity and body mass index (BMI) of 36.0 to 36.9 in adult ([facility] [place]) Closed head injury, sequela Blurry vision, left eye Other specified visual disturbances Pre-operative clearance- Primary Unspecified pre-operative examination Class 2 severe obesity due to excess calories with serious comorbidity and body mass index (BMI) of 36.0 to 36.9 in adult ([facility] [place]) Body mass index (BMI) 35.0-35.9, adult Closed head injury, sequela Hematoma of frontal scalp, sequela Age-related osteoporosis without current pathological fracture ([facility] [place]) Essential (primary) hypertension ([facility] [place]) Unspecified essential hypertension Gastroesophageal reflux disease without esophagitis Esophageal reflux Type 2 diabetes mellitus without complication, without long-term current use of insulin Blurry vision, left eye Other specified visual disturbances Encounter for subsequent annual wellness visit (AWV) in Medicare patient- Primary Type 2 diabetes mellitus with diabetic neuropathy, without long-term current use of insulin ([facility] [place]) Essential (primary) hypertension ([facility] [place]) Unspecified essential hypertension Hypertensive chronic kidney disease with stage 1 through stage 4 chronic kidney disease, or unspecified chronic kidney disease ([facility] [place]) Gastroesophageal reflux disease without esophagitis Esophageal reflux Age-related osteoporosis without current pathological fracture ([facility] [place]) Fibromyalgia Unspecified myalgia and myositis Class 2 severe obesity due to excess calories with serious comorbidity and body mass index (BMI) of 36.0 to 36.9 in adult ([facility] [place]) Type 2 diabetes mellitus without complication, without long-term current use of insulin Mixed hyperlipidemia (CMS/HCC) Mixed hyperlipidemia Acute pain of right shoulder- Primary Status post reverse total arthroplasty of right shoulder Shoulder stiffness, right documented in this encounter [facility] HealthcareEvaluation note* Diagnosis Benign essential HTN (CMS/HCC)- Primary Gastroesophageal reflux disease without esophagitis Esophageal reflux Stage 3 chronic kidney disease, unspecified whether stage 3a or 3b CKD (HCC) ([facility] [place]) Class 2 severe obesity due to excess calories with serious comorbidity and body mass index (BMI) of 36.0 to 36.9 in adult ([facility] [place]) Menopause Symptomatic menopausal or female climacteric states Encounter for screening mammogram for malignant neoplasm of breast Encounter for subsequent annual wellness visit (AWV) in Medicare patient- Primary Benign essential HTN (CMS/HCC) Gastroesophageal reflux disease without esophagitis Esophageal reflux Stage 3 chronic kidney disease, unspecified whether stage 3a or 3b CKD (HCC) ([facility] [place]) 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, without long-term current use of insulin, unspecified whether stage 3a or 3b CKD (HCC) (CMS/HCC) Acute pain of right shoulder- Primary Class 2 severe obesity due to excess calories with serious comorbidity and body mass index (BMI) of 36.0 to 36.9 in adult ([facility] [place]) Primary osteoarthritis involving multiple joints Preoperative clearance- Primary Unspecified pre-operative examination Type 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 (CMS/HCC) Malignant neoplasm of unspecified ovary ([facility] [place]) 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 elsewhere ([facility] [place]) Secondary hyperparathyroidism of renal origin (CMS/HCC) Secondary hyperparathyroidism (of renal origin) Hypertensive chronic kidney disease with stage 1 through stage 4 chronic kidney disease, or unspecified chronic kidney disease (CMS/HCC) Age-related osteoporosis without current pathological fracture ([facility] [place]) Essential (primary) hypertension (CMS/HCC) Unspecified essential hypertension Type 2 diabetes mellitus with diabetic neuropathy, unspecified (CMS/HCC) Secondary hyperparathyroidism (CMS/HCC) Secondary hyperparathyroidism (of renal origin) Acute pain of right shoulder Essential (primary) hypertension ([facility] [place])- Primary Unspecified essential hypertension Fibromyalgia Unspecified myalgia and myositis 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 elsewhere ([facility] [place]) ODALYS (generalized anxiety disorder) ([facility] [place]) Generalized anxiety disorder Type 2 diabetes mellitus without complication, without long-term current use of insulin Fibromyalgia- Primary Unspecified myalgia and myositis 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 elsewhere ([facility] [place]) Class 2 severe obesity due to excess calories with serious comorbidity and body mass index (BMI) of 36.0 to 36.9 in adult ([facility] [place]) ODALYS (generalized anxiety disorder) ([facility] [place]) Generalized anxiety disorder Essential (primary) hypertension ([facility] [place]) Unspecified essential hypertension Age-related osteoporosis without current pathological fracture ([facility] [place]) Primary osteoarthritis involving multiple joints Class 2 severe obesity due to excess calories with serious comorbidity and body mass index (BMI) of 36.0 to 36.9 in adult ([facility] [place])- Primary Essential (primary) hypertension ([facility] [place]) Unspecified essential hypertension Acute non-recurrent pansinusitis Encounter for screening mammogram for malignant neoplasm of breast Hematoma of frontal scalp, subsequent encounter- Primary Closed head injury, subsequent encounter Class 2 severe obesity due to excess calories with serious comorbidity and body mass index (BMI) of 36.0 to 36.9 in adult ([facility] [place]) Essential (primary) hypertension ([facility] [place]) Unspecified essential hypertension Hematoma of frontal scalp, sequela- Primary Morbid (severe) obesity due to excess calories ([facility] [place]) Essential (primary) hypertension ([facility] [place]) Unspecified essential hypertension Body mass index (BMI) 35.0-35.9, adult Type 2 diabetes mellitus with diabetic neuropathy, unspecified ([facility] [place]) Malignant neoplasm of unspecified ovary ([facility] [place]) Type 2 diabetes mellitus with diabetic cataract ([facility] [place]) Type II or unspecified type diabetes mellitus with ophthalmic manifestations, not stated as uncontrolled Type 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 ([facility] [place]) Chronic kidney disease, stage 3a ([facility] [place]) ([facility] [place]) Hypertensive chronic kidney disease with stage 1 through stage 4 chronic kidney disease, or unspecified chronic kidney disease ([facility] [place]) Class 2 severe obesity due to excess calories with serious comorbidity and body mass index (BMI) of 36.0 to 36.9 in adult ([facility] [place]) Closed head injury, sequela Blurry vision, left eye Other specified visual disturbances Pre-operative clearance- Primary Unspecified pre-operative examination Class 2 severe obesity due to excess calories with serious comorbidity and body mass index (BMI) of 36.0 to 36.9 in adult ([facility] [place]) Body mass index (BMI) 35.0-35.9, adult Closed head injury, sequela Hematoma of frontal scalp, sequela Age-related osteoporosis without current pathological fracture ([facility] [place]) Essential (primary) hypertension ([facility] [place]) Unspecified essential hypertension Gastroesophageal reflux disease without esophagitis Esophageal reflux Type 2 diabetes mellitus without complication, without long-term current use of insulin Blurry vision, left eye Other specified visual disturbances Encounter for subsequent annual wellness visit (AWV) in Medicare patient- Primary Type 2 diabetes mellitus with diabetic neuropathy, without long-term current use of insulin ([facility] [place]) Essential (primary) hypertension ([facility] [place]) Unspecified essential hypertension Hypertensive chronic kidney disease with stage 1 through stage 4 chronic kidney disease, or unspecified chronic kidney disease ([facility] [place]) Gastroesophageal reflux disease without esophagitis Esophageal reflux Age-related osteoporosis without current pathological fracture ([facility] [place]) Fibromyalgia Unspecified myalgia and myositis Class 2 severe obesity due to excess calories with serious comorbidity and body mass index (BMI) of 36.0 to 36.9 in adult ([facility] [place]) Type 2 diabetes mellitus without complication, without long-term current use of insulin Mixed hyperlipidemia ([facility] [place]) Mixed hyperlipidemia Back pain of lumbar region with sciatica- Primary Class 2 severe obesity due to excess calories with serious comorbidity and body mass index (BMI) of 36.0 to 36.9 in adult ([facility] [place]) Essential (primary) hypertension ([facility] [place]) Unspecified essential hypertension Gastro-esophageal reflux disease without esophagitis Esophageal reflux documented in this encounter [facility] HealthcareEvaluation note* Diagnosis Benign essential HTN ([facility] [place])- Primary Gastroesophageal reflux disease without esophagitis Esophageal reflux Stage 3 chronic kidney disease, unspecified whether stage 3a or 3b CKD (HCC) ([facility] [place]) Class 2 severe obesity due to excess calories with serious comorbidity and body mass index (BMI) of 36.0 to 36.9 in adult ([facility] [place]) Menopause Symptomatic menopausal or female climacteric states Encounter for screening mammogram for malignant neoplasm of breast Encounter for subsequent annual wellness visit (AWV) in Medicare patient- Primary Benign essential HTN ([facility] [place]) Gastroesophageal reflux disease without esophagitis Esophageal reflux Stage 3 chronic kidney disease, unspecified whether stage 3a or 3b CKD (HCC) ([facility] [place]) 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, without long-term current use of insulin, unspecified whether stage 3a or 3b CKD (HCC) ([facility] [place]) Acute pain of right shoulder- Primary Class 2 severe obesity due to excess calories with serious comorbidity and body mass index (BMI) of 36.0 to 36.9 in adult ([facility] [place]) Primary osteoarthritis involving multiple joints Preoperative clearance- Primary Unspecified pre-operative examination Type 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 ([facility] [place]) Malignant neoplasm of unspecified ovary ([facility] [place]) 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 elsewhere ([facility] [place]) Secondary hyperparathyroidism of renal origin ([facility] [place]) Secondary hyperparathyroidism (of renal origin) Hypertensive chronic kidney disease with stage 1 through stage 4 chronic kidney disease, or unspecified chronic kidney disease ([facility] [place]) Age-related osteoporosis without current pathological fracture ([facility] [place] Essential (primary) hypertension ([facility] [place]) Unspecified essential hypertension Type 2 diabetes mellitus with diabetic neuropathy, unspecified ([facility] [place]) Secondary hyperparathyroidism ([facility] [place]) Secondary hyperparathyroidism (of renal origin) Acute pain of right shoulder Essential (primary) hypertension ([facility] [place] Primary Unspecified essential hypertension Fibromyalgia Unspecified myalgia and myositis 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 elsewhere ([facility] [place]) ODALYS (generalized anxiety disorder) ([facility] [place]) Generalized anxiety disorder Type 2 diabetes mellitus without complication, without long-term current use of insulin Fibromyalgia- Primary Unspecified myalgia and myositis 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 elsewhere ([facility] [place]) Class 2 severe obesity due to excess calories with serious comorbidity and body mass index (BMI) of 36.0 to 36.9 in adult ([facility] [place]) ODALYS (generalized anxiety disorder) ([facility] [place]) Generalized anxiety disorder Essential (primary) hypertension ([facility] [place]) Unspecified essential hypertension Age-related osteoporosis without current pathological fracture ([facility] [place]) Primary osteoarthritis involving multiple joints Class 2 severe obesity due to excess calories with serious comorbidity and body mass index (BMI) of 36.0 to 36.9 in adult ([facility] [place])- Primary Essential (primary) hypertension ([facility] [place]) Unspecified essential hypertension Acute non-recurrent pansinusitis Encounter for screening mammogram for malignant neoplasm of breast Hematoma of frontal scalp, subsequent encounter- Primary Closed head injury, subsequent encounter Class 2 severe obesity due to excess calories with serious comorbidity and body mass index (BMI) of 36.0 to 36.9 in adult ([facility] [place]) Essential (primary) hypertension ([facility] [place]) Unspecified essential hypertension Hematoma of frontal scalp, sequela- Primary Morbid (severe) obesity due to excess calories ([facility] [place]) Essential (primary) hypertension ([facility] [place]) Unspecified essential hypertension Body mass index (BMI) 35.0-35.9, adult Type 2 diabetes mellitus with diabetic neuropathy, unspecified ([facility] [place]) Malignant neoplasm of unspecified ovary ([facility] [place]) Type 2 diabetes mellitus with diabetic cataract ([facility] [place]) Type II or unspecified type diabetes mellitus with ophthalmic manifestations, not stated as uncontrolled Type 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 ([facility] [place]) Chronic kidney disease, stage 3a (HCC) ([facility] [place]) Hypertensive chronic kidney disease with stage 1 through stage 4 chronic kidney disease, or unspecified chronic kidney disease ([facility] [place]) Class 2 severe obesity due to excess calories with serious comorbidity and body mass index (BMI) of 36.0 to 36.9 in adult ([facility] [place]) Closed head injury, sequela Blurry vision, left eye Other specified visual disturbances Pre-operative clearance- Primary Unspecified pre-operative examination Class 2 severe obesity due to excess calories with serious comorbidity and body mass index (BMI) of 36.0 to 36.9 in adult ([facility] [place]) Body mass index (BMI) 35.0-35.9, adult Closed head injury, sequela Hematoma of frontal scalp, sequela Age-related osteoporosis without current pathological fracture ([facility] [place]) Essential (primary) hypertension ([facility] [place]) Unspecified essential hypertension Gastroesophageal reflux disease without esophagitis Esophageal reflux Type 2 diabetes mellitus without complication, without long-term current use of insulin Blurry vision, left eye Other specified visual disturbances Encounter for subsequent annual wellness visit (AWV) in Medicare patient- Primary Type 2 diabetes mellitus with diabetic neuropathy, without long-term current use of insulin ([facility] [place]) Essential (primary) hypertension ([facility] [place]) Unspecified essential hypertension Hypertensive chronic kidney disease with stage 1 through stage 4 chronic kidney disease, or unspecified chronic kidney disease ([facility] [place]) Gastroesophageal reflux disease without esophagitis Esophageal reflux Age-related osteoporosis without current pathological fracture ([facility] [place]) Fibromyalgia Unspecified myalgia and myositis Class 2 severe obesity due to excess calories with serious comorbidity and body mass index (BMI) of 36.0 to 36.9 in adult ([facility] [place]) Type 2 diabetes mellitus without complication, without long-term current use of insulin Mixed hyperlipidemia ([facility] [place]) Mixed hyperlipidemia Back pain of lumbar region with sciatica- Primary Class 2 severe obesity due to excess calories with serious comorbidity and body mass index (BMI) of 36.0 to 36.9 in adult ([facility] [place]) Essential (primary) hypertension ([facility] [place]) Unspecified essential hypertension Gastro-esophageal reflux disease without esophagitis Esophageal reflux Acute pain of right shoulder- Primary Status post reverse total arthroplasty of right shoulder Shoulder stiffness, right documented in this encounter [...] LID TUCK 03/2019 Hospitalization History SEE ABOVE Violet Grey Other InstructionsNot on filedocumented in this encounter [facility] SystemInstructionsNot on filedocumented in this encounter [facility]Reason [facility] Narrative* Rehabilitation - Outpatient (Routine) - Authorized Specialty Diagnoses / Procedures Referred By Tyshawn conti Referred To Contact Physical Therapy Diagnoses Status post right rotator cuff repair Procedures SC OFFICE/OUTPATIENT [facility] 60 MINUTES May Pulido, SUPERVISOR REWORK [address] [place] [address] Phone: tel: fax: Leo Goodwin, PT [address] [place] [address] Phone: tel: fax: Referral ID Status Reason Start Date Expiration Date Visits Requested Visits Authorized [id number] Authorized Specialty Services Required 11/14/2023 05/12/2024 30 30 [facility] N[facility]ative* Rehabilitation - Outpatient (Routine) - Authorized Specialty Diagnoses / Procedures Referred By Contac t Referred To Contact Physical Therapy Diagnoses Primary osteoarthritis, right shoulder Primary osteoarthritis, left shoulder s/p total shoulder Procedures SC PHYSICAL THERAPY EVALUATION HIGH COMPLEX 45 MINS Daniel Wolf MD [address] [facility], [address] [address] Phone: tel: fax: Leo Goodwin, PT [address] [place] [address] Phone: tel: fax: Referral ID Status Reason Start Date Expiration Date V isits Requested Visits Authorized [id number] Authorized 04/19/2024 10/16/2024 30 30 [facility]Reason for [facility] Narrative* Rehabilitation - Outpatient (Routine) - Authorized Specialty Diagnoses / Procedures Referred By Contac t Referred To Contact Physical Therapy Diagnoses Primary osteoarthritis, right shoulder Primary osteoarthritis, left shoulder s/p total shoulder Procedures SC PHYSICAL THERAPY EVALUATION HIGH COMPLEX 45 MINS Daniel Wolf MD [address] [facility], [address] [address] Phone: tel: fax: Leo Goodwin, PT [address] [place] [address] Phone: tel: fax: Referral ID Status Reason Start Date Expiration Date V isits Requested Visits Authorized [id number] Authorized 04/19/2024 02/27/2025 30 30 [facility]Reason for [facility] Narrative* Rehabilitation - Outpatient (Routine) - Authorized Specialty Diagnoses / Procedures Referred By Contac t Referred To Contact Physical Therapy Diagnoses Primary osteoarthritis, right shoulder Primary osteoarthritis, left shoulder s/p total shoulder Procedures SC PHYSICAL THERAPY EVALUATION HIGH COMPLEX 45 MINS Daniel Wolf MD Phone: tel: fax: Leo Goodwin, PT [address] [place] [address] Phone: tel: fax: Referral ID Status Reason Start Date Expiration Date V isits Requested Visits Authorized [id number] Authorized 04/19/2024 02/27/2025 30 30 [facility] Summary Purpose Family History No Family History [...] kidney disease) stage 3, GFR 30-59 ml/min [id number] Hypomagnesemia Iron deficiency Secondary hyperparathyroidism Type 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 Vitamin D deficiency Chief Complaint 6 month f/u / meter RENAL 6 MONTH F/U Reason for Visit BMI 34.0-34.9,adult Dietary counseling and surveillance Hyperlipidemia Hypertension Type 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 CKD (chronic kidney disease) stage 3, GFR 30-59 ml/min [id number] Hypomagnesemia Iron deficiency Secondary hyperparathyroidism Type 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 Vitamin D deficiency Chief Complaint Admit Date RENAL 6 MONTH F/U December 12, 2023 2 :14pm [id number] February 10, 2024 8:29am METER (DATES WONT MATCH) March 06 2:03pm Reason for Visit Admit Date CKD (chronic kidney disease) stage 3, GF R 30-59 ml/min December 12, 2023 2:14pm Hypertensive chronic kidney disease with stage 1 through stage 4 chronic ki December 12, 2023 2:14pm Hypomagnesemia December 12, 2023 2 :14pm Iron deficiency December 12, 2023 2 :14pm Secondary hyperparathyroidism December 112023 2:14pm Type 2 diabetes mellitus wit h diabetic chronic kidney disease December 12, 2023 2:14pm Vitamin D deficiency December 12, 2023 2:14pm Dietary counseling and surveillance Cuate [facility] 2024 2:03pm Hyperlipidemia March 06, 2024 2: 03pm Hypertension March 06, 2024 2: 03pm Obesity, Class II, BMI 35-39.9 March 062024 2:03pm Type 2 diabetes mellitus wit h diabetic chronic kidney disease March 06, 2024 2:03pm Reason for Referral Specialty Diagnoses / Procedures Referred By Tyshawn conti Referred To Contact Physical Therapy Diagnoses Status post right rotator cuff repair Procedures SC OFFICE/OUTPATIENT [facility] MDM 60 MINUTES May Pulido, SUPERVISOR REWORK [address] [place] [address] Leo Goodwin, PT [address] [place] [address] Referral ID Status Reason Start Date Expiration Date Visits Requested Visits Authorized [id number] Authorized Specialty Services Required 11/14/2023 05/12/2024 10 10 Additional Source Comments INFORMATION SOURCE (unrecogn ized section and content) DATE CREATED AUTHOR 08/24/2017 [facility] DATE CREATED AUTHOR AUTHOR'S ORGANIZ ATION 06/08/2022 [facility] DATE CREATED AUTHOR AUTHOR'S ORGANIZ ATION 01/23/2024 [facility] DATE CREATED AUTHOR AUTHOR'S ORGANIZ ATION 02/12/2024 [facility] DATE CREATED AUTHOR AUTHOR'S ORGANIZ ATION 02/23/2024 [facility] DATE CREATED AUTHOR AUTHOR'S ORGANIZ ATION 05/19/2024 [facility] DATE CREATED AUTHOR AUTHOR'S ORGANIZ ATION 06/03/2024 [facility] dical Specialists EPIC REASON FOR VISIT (unrecogniz ed section and content) Reason Comments Nail care Ashley Wang i s a 77 y.o. female who presents for Nail care. BS 120 A1C 6.0 (03/2023) LV Dr. Jhon Perea 04/05/2023 SS: 8.5-9). Specialty Diagnoses / Procedures Referred By Tyshawn conti Referred To Contact Physical Therapy Diagnoses Status post right rotator cuff repair Procedures SC OFFICE/OUTPATIENT [facility] 60 MINUTES May Pulido, SUPERVISOR REWORK [address] [place] [address] Leo Goodwin, PT [address] [place] [address] Referral ID Status Reason Start Date Expiration Date Visits Requested Visits Authorized [id number] Authorized Specialty Services Required 11/14/2023 05/12/2024 30 30 Reason Comments Follow-up Reason Comments Med Refill Reason Comments Diabetic nail care Ashley Wang i s a 78 y.o. female who presents for DM Foot Care. PCP: Jhon Perea LV: 10/04/2023. A1C: 5.5, BS: 103 SS: 8.5-9 Reason Comments Pain Reason Comments Follow-up Reason Comments hematoma Reason Comments Hematoma of frontal scalp, sequela Reason Comments DM Foot Care Ashley Wang i s a 79 y.o. female who presents for DM Foot Care. PCP: Jhon Perea LV: 03/19/2024 A1C: 5.5, BS: 128 SS: 8.5-9 Reason Comments Post-op PO Right reverse TSA 04/04/24XR TODAY Reason Comments Medicare Annual Wellness Visit Initial Reason Comments Post-op P/O Right reverse TS A 04/04/24 Care Teams (unrecognized sec tion and content) Vendor Manager Relationship Specialty Start Date End Date Lex Martinez MD [address] [place] [address] PCP - General Family Medicine 02/07/23 Dana Tapia NP [address] [place] [address] Nurse Practitioner Family Medicine 10/11/22 Vendor Manager Relationship Specialty Start Date End Date Lxe Martinez MD [address] [place] [address] PCP - General Family Medicine 02/07/23 Dana Tapia NP [address] [place] [address] Nurse Practitioner Family Medicine 10/11/22 Team Status: Active Member Role Status Dates Lex Martinez MD Primary Care Provider Active Team Status: Inactive Member Role Status Dates Jhon Perea APRN Attending Provider Active Start: March 31, 2023 End: March 31, 2023 Team Status: Inactive Member Role Status Dates PHYSICIAN FAMILY Primary Care Provider Active Start: March 31, 2023 End: March 31, 2023 Earline Butler PA-C Active St art: March 31, 2023 End: March 31, 2023 Jhon Perea APRN Attending Provider Active Start: March 31, 2023 End: March 31, 2023 Team Status: Active Member Role Status Dates Lex Martinez MD Primary Care Provider Active S tart: May 11, 2023 Isaura López CMA Attending Provider Active St art: May 11, 2023 Team Status: Active Member Role Status Dates Lex Martinez MD Primary Care Provider Active S tart: June 07, 2023 Eboni White MD Attending Provider Active Start : June 07, 2023 Team Status: Inactive Member Role Status Dates Lex Martinez MD Primary Care Provider Active S tart: June 13, 2023 End: June 13, 2023 Eboni White MD Attending Provider Active Start : June 13, 2023 End: June 13, 2023 Team Status: Inactive Member Role Status Dates Lex Martinez MD Primary Care Provider Active S tart: October 04, 2023 End: October 04, 2023 Jhon Perea APRN Attending Provider Active Start: October 04, 2023 End: October 04, 2023 Vendor Manager Relationship Specialty Start Date End Date Lex Martinez MD [address] [place] [address] PCP - General Family Medicine 02/07/23 Dana Tapia NP [address] [place] [address] Nurse Practitioner Family Medicine 10/11/22 Vendor Manager Relationship Specialty Start Date End Date Lex Martinez MD [address] [place] [address] PCP - General Family Medicine 02/07/23 Dana Tapia NP [address] [place] [address] Nurse Practitioner Family Medicine 10/11/22 Vendor Manager Relationship Specialty Start Date End Date Lex Martinez MD [address] [place] [address] PCP - General Family Medicine 02/07/23 Dana Tapia NP [address] [place] [address] Nurse Practitioner Family Medicine 10/11/22 Vendor Manager Relationship Specialty Start Date End Date Lex Martinez MD [address] [place] [address] PCP - General Family Medicine 02/07/23 Dana Tapia NP [address] [place] [address] Nurse Practitioner Family Medicine 10/11/22 Vendor Manager Relationship Specialty Start Date End Date Lex Martinez MD [address] [place] [address] PCP - General Family Medicine 02/07/23 Dana Tapia NP [address] [place] [address] Nurse Practitioner Family Medicine 10/11/22 Vendor Manager Relationship Specialty Start Date End Date Lex Martinez MD [address] [place] [address] PCP - General Family Medicine 02/07/23 Dana Tapia NP [address] [place] [address] Nurse Practitioner Family Medicine 10/11/22 Vendor Manager Relationship Specialty Start Date End Date Lex Martinez MD [address] [place] [address] PCP - General Family Medicine 02/07/23 Dana Tapia NP [address] [place] [address] Nurse Practitioner Family Medicine 10/11/22 Vendor Manager Relationship Specialty Start Date End Date Lex Martinez MD [address] [place] [address] PCP - General Family Medicine 02/07/23 Dana Tapia NP [address] [place] [address] Nurse Practitioner Family Medicine 10/11/22 Vendor Manager Relationship Specialty Start Date End Date Lex Martinez MD [address] [place] [address] PCP - General Family Medicine 02/07/23 Dana Tapia NP [address] [place] [address] Nurse Practitioner Family Medicine 10/11/22 Team Status: Active Member Role Status Dates Lex Martinez MD Primary Care Provider Active S tart: December 06, 2023 Eboni White MD Attending Provider Active Start : December 06, 2023 Team Status: Inactive Member Role Status Dates Lex Martinez MD Primary Care Provider Active S tart: December 12, 2023 End: December 12, 2023 Eboni White MD Attending Provider Active Start : December 12, 2023 End: December 12, 2023 Vendor Manager Relationship Specialty Start Date End Date Lex Martinez MD [address] [place] [address] PCP - General Family Medicine 02/07/23 Dana Tapia NP [address] [place] [address] Nurse Practitioner Family Medicine 10/11/22 Vendor Manager Relationship Specialty Start Date End Date Lex Martinez MD [address] [place] [address] PCP - General Family Medicine 02/07/23 Dana Tapia NP [address] [place] [address] Nurse Practitioner Family Medicine 10/11/22 Vendor Manager Relationship Specialty Start Date End Date Lex Martinez MD [address] [place] [address] PCP - General Family Medicine 02/07/23 Dana Tapia NP [address] [place] [address] Nurse Practitioner Family Medicine 10/11/22 Vendor Manager Relationship Specialty Start Date End Date Lex Martinez MD [address] [place] [address] PCP - General Family Medicine 02/07/23 Dana Tapia NP [address] [place] [address] Nurse Practitioner Family Medicine 10/11/22 Vendor Manager Relationship Specialty Start Date End Date Lex Martinez MD [address] [place] [address] PCP - General Family Medicine 02/07/23 Dana Tapia NP [address] [place] [address] Nurse Practitioner Family Medicine 10/11/22 Vendor Manager Relationship Specialty Start Date End Date Lex Martinez MD [address] [place] [address] PCP - General Family Medicine 02/07/23 Dana Tapia NP [address] [place] [address] Nurse Practitioner Family Medicine 10/11/22 Vendor Manager Relationship Specialty Start Date End Date Lex Martinez MD [address] [place] [address] PCP - General Family Medicine 02/07/23 Dana Tapia NP [address] [place] [address] Nurse Practitioner Family Medicine 10/11/22 Vendor Manager Relationship Specialty Start Date End Date Lex Martinez MD [address] [place] [address] PCP - General Family Medicine 02/07/23 Dana Tapia NP [address] [place] [address] Nurse Practitioner Family Medicine 10/11/22 Vendor Manager Relationship Specialty Start Date End Date Lex Martinez MD [address] [place] [address] PCP - General Family Medicine 02/07/23 Dana Tapia NP [address] [place] [address] Nurse Practitioner Family Medicine 10/11/22 Vendor Manager Relationship Specialty Start Date End Date Lex Martinez MD [address] [place] [address] PCP - General Family Medicine 02/07/23 Dana Tapia NP [address] [place] [address] Nurse Practitioner Family Medicine 10/11/22 Vendor Manager Relationship Specialty Start Date End Date Lex Martinez MD [address] [place] [address] PCP - General Family Medicine 02/07/23 Dana Tapia NP [address] [place] [address] Nurse Practitioner Family Medicine 10/11/22 Vendor Manager Relationship Specialty Start Date End Date Lex Martinez MD [address] [place] [address] PCP - General Family Medicine 02/07/23 Dana Tapia NP [address] [place] [address] Nurse Practitioner Family Medicine 10/11/22 Vendor Manager Relationship Specialty Start Date End Date Lex Martinez MD [address] [place] [address] PCP - General Family Medicine 02/07/23 Dana Tapia NP [address] [place] [address] Nurse Practitioner Family Medicine 10/11/22 Vendor Manager Relationship Specialty Start Date End Date Lex Martinez MD [address] [place] [address] PCP - General Family Medicine 02/07/23 Dana Tapia NP [address] [place] [address] Nurse Practitioner Family Medicine 10/11/22 Vendor Manager Relationship Specialty Start Date End Date Lex Martinez MD [address] [place] [address] PCP - General Family Medicine 02/07/23 Dana Tapia NP [address] [place] [address] Nurse Practitioner Family Medicine 10/11/22 Vendor Manager Relationship Specialty Start Date End Date Lex Martinez MD [address] [place] [address] PCP - General Family Medicine 02/07/23 Dana Tapia NP [address] [place] [address] Nurse Practitioner Family Medicine 10/11/22 Vendor Manager Relationship Specialty Start Date End Date Lex Martinez MD [address] [place] [address] PCP - General Family Medicine 02/07/23 Dana Tapia NP [address] [place] [address] Nurse Practitioner Family Medicine 10/11/22 Vendor Manager Relationship Specialty Start Date End Date Lex Martinez MD [address] [place] [address] PCP - General Family Medicine 02/07/23 Dana Tapia NP [address] [place] [address] Nurse Practitioner Family Medicine 10/11/22 Vendor Manager Relationship Specialty Start Date End Date Lex Martinez MD [address] [place] [address] PCP - General Family Medicine 02/07/23 Dana Tapia NP [address] [place] [address] Nurse Practitioner Family Medicine 10/11/22 Vendor Manager Relationship Specialty Start Date End Date Lex Martinez MD [address] [place] [address] PCP - General Family Medicine 02/07/23 Dana Tapia NP [address] [place] [address] Nurse Practitioner Family Medicine 10/11/22 Vendor Manager Relationship Specialty Start Date End Date Lex Martinez MD [address] [place] [address] PCP - General Family Medicine 02/07/23 Dana Tapia NP [address] [place] [address] Nurse Practitioner Family Medicine 10/11/22 Vendor Manager Relationship Specialty Start Date End Date Lex Martinez MD [address] [place] [address] PCP - General Family Medicine 02/07/23 Dana Tapia NP [address] [place] [address] Nurse Practitioner Family Medicine 10/11/22 Vendor Manager Relationship Specialty Start Date End Date Lex Martinez MD [address] [place] [address] PCP - General Family Medicine 02/07/23 Dana Tapia NP [address] [place] [address] Nurse Practitioner Family Medicine 10/11/22 Vendor Manager Relationship Specialty Start Date End Date Lex Martinez MD [address] [place] [address] PCP - General Family Medicine 02/07/23 Dana Tapia NP [address] [place] [address] Nurse Practitioner Family Medicine 10/11/22 Vendor Manager Relationship Specialty Start Date End Date eLx Martinez MD [address] [place] [address] PCP - General Family Medicine 02/07/23 Dana Tapia NP [address] [place] [address] Nurse Practitioner Family Medicine 10/11/22 Vendor Manager Relationship Specialty Start Date End Date Lex Martinez MD [address] [place] [address] PCP - General Family Medicine 02/07/23 Dana Tapia NP [address] [place] [address] Nurse Practitioner Family Medicine 10/11/22 Vendor Manager Relationship Specialty Start Date End Date Lex Martinez MD [address] [place] [address] PCP - General Family Medicine 02/07/23 Dana Tapia NP [address] [place] [address] Nurse Practitioner Family Medicine 10/11/22 Vendor Manager Relationship Specialty Start Date End Date Lex Martinez MD [address] [place] [address] PCP - General Family Medicine 02/07/23 Dana Tapia NP [address] [place] [address] Nurse Practitioner Family Medicine 10/11/22 Team Status: Inactive Member Role Status Dates Lex Martinez MD Primary Care Provider Active S tart: February 10, 2024 End: February 10, 2024 Jhon Perea APRN Attending Provider Active Start: February 10, 2024 End: February 10, 2024 Team Status: Inactive Member Role Status Dates Lex Martinez MD Primary Care Provider Active S tart: March 06, 2024 End: March 06, 2024 Jhon Perea APRN Attending Provider Active Start: March 06, 2024 End: March 06, 2024 Vendor Manager Relationship Specialty Start Date End Date Lex Martinez MD [address] [place] [address] PCP - General Family Medicine 02/07/23 Dana Tapia NP [address] [place] [address] Nurse Practitioner Family Medicine 10/11/22 Vendor Manager Relationship Specialty Start Date End Date Lex Martinez MD [address] [place] [address] PCP - General Family Medicine 02/07/23 Dana Tapia NP [address] [place] [address] Nurse Practitioner Family Medicine 10/11/22 Vendor Manager Relationship Specialty Start Date End Date Dana Tapia APRN-INSIDE UPHOLSTERER PCP - General Nurse Practitioner 04/03/19 Vendor Manager Relationship Specialty Start Date End Date Lex Martinez MD [address] [place] [address] PCP - General Family Medicine 02/07/23 Dana Tapia NP [address] [place] [address] PCP - ACO Reach 04/06/24 Dana Tapia NP [address] [place] [address] Nurse Practitioner Family Medicine 10/11/22 Vendor Manager Relationship Specialty Start Date End Date Lex Martinez MD [address] [place] [address] PCP - General Family Medicine 02/07/23 Dana Tapia NP [address] [place] [address] PCP - ACO Reach 04/06/24 Dana Tapia NP [address] [place] [address] Nurse Practitioner Family Medicine 10/11/22 Vendor Manager Relationship Specialty Start Date End Date Dana Tapia APRN-INSIDE UPHOLSTERER PCP - General Nurse Practitioner 04/03/19 Vendor Manager Relationship Specialty Start Date End Date Dana Tapia, TEST FIXTURE ASSEMBLER-INSIDE UPHOLSTERER PCP - General Nurse Practitioner 04/03/19 Vendor Manager Relationship Specialty Start Date End Date Lex Martinez MD [address] [place] [address] PCP - General Family Medicine 02/07/23 Dana Tapia NP [address] [place] [address] PCP - ACO Reach 04/06/24 Dana Tapia NP [address] [place] [address] Nurse Practitioner Family Medicine 10/11/22 Vendor Manager Relationship Specialty Start Date End Date Lex Martinez MD [address] [place] [address] PCP - General Family Medicine 02/07/23 Dana Tapia NP [address] [place] [address] PCP - ACO Reach 04/06/24 Dana Tapia NP [address] [place] [address] Nurse Practitioner Family Medicine 10/11/22 Vendor Manager Relationship Specialty Start Date End Date Lex Martinez MD [address] [place] [address] PCP - General Family Medicine 02/07/23 Dana Tapia NP [address] [place] [address] PCP - ACO Reach 04/06/24 Dana Tapia NP [address] [place] [address] Nurse Practitioner Family Medicine 10/11/22 Vendor Manager Relationship Specialty Start Date End Date Lex Martinez MD [address] [place] [address] PCP - General Family Medicine 02/07/23 Dana Tapia NP [address] [place] [address] PCP - ACO Reach 04/06/24 Dana Tapia NP [address] [place] [address] Nurse Practitioner Family Medicine 10/11/22 Vendor Manager Relationship Specialty Start Date End Date Lex Martinez MD [address] [place] [address] PCP - General Family Medicine 02/07/23 Dana Tapia NP [address] [place] [address] PCP - ACO Reach 04/06/24 Dana Tapia NP [address] [place] [address] Nurse Practitioner Family Medicine 10/11/22 Vendor Manager Relationship Specialty Start Date End Date Lex Martinez MD [address] [place] [address] PCP - General Family Medicine 02/07/23 Dana Tapia NP [address] [place] [address] PCP - ACO Reach 04/06/24 Dana Tapia NP [address] [place] [address] Nurse Practitioner Family Medicine 10/11/22 Vendor Manager Relationship Specialty Start Date End Date Lex Martinez MD [address] [place] [address] PCP - General Family Medicine 02/07/23 Dana Tapia NP [address] [place] [address] PCP - ACO Reach 04/06/24 Dana Tapia NP [address] [place] [address] Nurse Practitioner Family Medicine 10/11/22 Vendor Manager Relationship Specialty Start Date End Date Lex Martinez MD [address] [place] [address] PCP - General Family Medicine 02/07/23 Dana Tapia NP [address] [place] [address] PCP - ACO Reach 04/06/24 Dana Tapia NP [address] [place] [address] Nurse Practitioner Family Medicine 10/11/22 Vendor Manager Relationship Specialty Start Date End Date Lex Martinez MD [address] [place] [address] PCP - General Family Medicine 02/07/23 Dana Tapia NP [address] [place] [address] PCP - ACO Reach 04/06/24 Dana Tapia NP [address] [place] [address] Nurse Practitioner Family Medicine 10/11/22 Vendor Manager Relationship Specialty Start Date End Date Lex Martinez MD [address] [place] [address] PCP - General Family Medicine 02/07/23 Dana Tapia NP [address] [place] [address] PCP - ACO Reach 04/06/24 Dana Tapia NP [address] [place] [address] Nurse Practitioner Family Medicine 10/11/22 Vendor Manager Relationship Specialty Start Date End Date Lex Martinez MD [address] [place] [phone] PCP - General Family Medicine 02/07/23 Dana Tapia NP [address] [place] [phone] PCP - ACO Reach 04/06/24 Dana Tapia NP [address] [place] [phone] Nurse Practitioner Family Medicine 10/11/22 Vendor Manager Relationship Specialty Start Date End Date Lex Martinez MD [address] [place] [phone] PCP - General Family Medicine 02/07/23 Dana Tapia NP [address] [place] [phone] PCP - ACO Reach 04/06/24 Dana Tapia NP [address] [place] [phone] Nurse Practitioner Family Medicine 10/11/22 Vendor Manager Relationship Specialty Start Date End Date Lex Martinez MD [address] [place] [phone] PCP - General Family Medicine 02/07/23 Dnaa Tapia NP [address] [place] [phone] PCP - ACO Reach 04/06/24 Dana Tpaia NP [address] [place] [phone] Nurse Practitioner Family Medicine 10/11/22 Vendor Manager Relationship Specialty Start Date End Date Lex Martinez MD [address] [place] [phone] PCP - General Family Medicine 02/07/23 Dana Tapia NP [address] [place] [phone] PCP - ACO Reach 04/06/24 Dana Tapia NP [address] [place] [phone] Nurse Practitioner Family Medicine 10/11/22 Vendor Manager Relationship Specialty Start Date End Date Lex Martinez MD [address] [place] [phone] PCP - General Family Medicine 02/07/23 Dana Tapia NP [address] [place] [phone] PCP - ACO Reach 04/06/24 Dana Tapia NP [address] [place] [phone] Nurse Practitioner Family Medicine 10/11/22 Goals (unrecognized [...] BE BASED ON THE PRIMARY CLINICAL RECORDS. [facility] [employer] [facility]. provides no warranty or guarantee of the accuracy or completeness of information in this document.
[2024-06-05 07:56] LABS: Hematocrit 43.6 % (36.0-48.0); Hemoglobin 14.1 g/dL (12.0-16.0); Mean Corpuscular HGB Conc 32.3 g/dL (29.9-35.2); Mean Corpuscular Hemoglobin 29.4 pg (26.7-34.0); Mean Platelet Volume 8.5 fL (9.5-13.5); Platelet Count 184 10^3/uL (150-450); Red Blood Count 4.79 10^6/uL (4.20-5.40); Red Cell Distribution Width 12.5 % (11.0-15.0); White Blood Count 6.7 10^3/uL (4.0-11.0)
[2024-06-05 09:02] LABS: Anion Gap 12.2; BUN Creatinine Ratio 19.6; Calcium 9.1 mg/dL (8.5-10.1); Carbon Dioxide 29.3 mmol/L (21.0-32.0); Chloride 99 mmol/L (98-107); Estimated GFR (African America >60 (>=60 mL/min/1.73m^2); Estimated GFR (Non-African Ame 53 (>=60 mL/min/1.73m^2); Glucose 98 mg/dL (74-106); Magnesium 1.8 mg/dL (1.8-2.4); Phosphorus 4.2 mg/dL (2.6-4.7); Potassium 3.5 mmol/L (3.5-5.1); Sodium 137 mmol/L (136-145); Uric Acid 3.4 mg/dL (2.6-6.0)
[2024-06-05 09:06] LABS: Bilirubin Urine NEGATIVE (NEGATIVE); Blood Urine NEGATIVE (NEGATIVE); Clarity Urine CLEAR (CLEAR); Color Urine LT. YELLOW (YELLOW); Glucose Urine UA 500 mg/dL (NEGATIVE); Ketones Urine NEGATIVE (NEGATIVE); Leukocyte Esterase Urine NEGATIVE (NEGATIVE); Nitrite Urine NEGATIVE (NEGATIVE); Protein Urine NEGATIVE (NEG/TRACE); Urobilinogen Urine 0.2 EU/dL (0.2-1.0); pH Urine 6.5 (5.0-9.0)
[2024-06-05 09:18] LABS: Bacteria Urine TRACE #/HPF (NONE SEEN); Mucus Urine NONE SEEN (NONE SEEN); RBC Urine 0-2 #/HPF (0-2); WBC Urine 0-2 #/HPF (NONE SEEN)
[2024-06-05 09:19] LABS: Cast Seen? NONE SEEN #/LPF (NONE SEEN); Crystals Seen? None Seen #/HPF (None Seen); Squamous Epithelial Cell Urine RARE #/LPF (NONE/RARE); Urine Culture Indicated NO
[2024-06-05 09:45] LABS: Creatinine Urine Random 35.59 mg/dL (20.00-300.00); Protein Creatinine Ratio Urine 0.34; Total Protein Urine Random 12.2 mg/dL (<=11.9)
[2024-06-05 09:53] LABS: Percent Iron Saturation 25.1 %
[2024-06-06 10:13] LABS: PTH, Intact 49 pg/mL (15-65)
== END 2024-06-05 07:27 | disposition home or self-care (01) ==
LOC: LAB 07:29
PROVIDERS: PCP Nurse Practitioner; Visit Provider Internal Medicine
DX: E55.9 Vitamin D deficiency, unspecified (principal); N25.81 Secondary hyperparathyroidism of renal origin; E61.1 Iron deficiency; I12.9 Hypertensive chronic kidney disease with stage 1 through stage 4 chronic kidney disease, or unspecified chronic kidney disease; E11.22 Type 2 diabetes mellitus with diabetic chronic kidney disease
CPT/HCPCS: 36415; 80069; 81001; 82306; 82570; 82728; 83540; 83550; 83735; 83970; 84156; 84550; 85027

== ENCOUNTER 2024-11-23 08:04 | Outpatient (OUT) | payer MEDICARE, SELFPAY ==
--- OUTSIDE RECORDS SUMMARY | 2024-11-21 13:32 | XMS_ITS | Continuity of Care Document ---
Author Organization [facility] Address [address] [place] [address] Phone Care Team Providers Care Health Promotion Coordinator Name Role Phone Lex Choi MD Primary Care Provider Bernardino Talavera APRN Attending Provider Dana TapiaC Attending Provider Dana Tapia NP-C Primary Care Provider Care Teams Patient Care Team Team Status: Active Member Role Status Dates ROSA Mcrgath Primary Care Provider Active Visit Care Team Team Status: Inactive Member Role Status Dates Lex Choi MD Primary Care Provider Active S tart: September 04, 2024 End: September 04, 2024 Bernardino Talavera APRN Attending Provider Active Start: September 04, 2024 End: September 04, 2024 Visit Care Team Team Status: Inactive Member Role Status Dates Lex Choi MD Primary Care Provider Active S tart: November 06, 2024 End: November 06, 2024 ROSA Mcgrath Attending Provider Active Start: November 06, 2024 End: November 06, 2024 Patient Care Team Team Status: Inactive Member Role Status Dates Dana Tapia NP-C Primary Care Provider Active Start: November 21, 2024 End: November 21, 2024 ROSA Mcgrath Attending Provider Active Start: November 21, 2024 End: November 21, 2024 Chief Complaint and Reason for Visit Chief Complaint Admit Date 6 month September 04, 2024 1:57p m ESTABLISHED PATIENT November 06, 2024 1:42pm sciatica pain November 21, 2024 4:25pm Reason for Visit Admit Date Dietary counseling and surveillance September 04, 2024 1:57pm Hyperlipidemia September 04, 2024 1:57p m Hypertension September 04, 2024 1:57p m Obesity, Class II, BMI 35-39.9 September 04, 2024 1:57pm Type 2 diabetes mellitus wit h diabetic chronic kidney disease September 04, 2024 1:57pm ODALYS (generalized anxiety disorder) Septe mber 2024 1:42pm Hypertension November 06, 2024 1:42pm Obesity, Class II, BMI 35-39.9 November 06, 2024 1:42pm Right shoulder pain November 06, 2024 1:42pm Lumbar spinal stenosis November 21, 4:25pm Allergies, Adverse Reactions, Alerts Allergen Type Severity Reaction Last Updated Verified Status metformin Allergy Unknown g/i s/e September 04, 2024 2:34pm Yes Active semaglutide Allergy Unknown diarrhea September 04 2:34pm Yes Active soy Allergy Unknown Unknown Reaction August 2:34pm Yes Active sulfamethoxazole Allergy Unknown rash August 2:34pm Yes Active trimethoprim Allergy Unknown rash September 04 2:34pm Yes Active Social History Smoking Status Status Start Date End Date Date of Observa tion Never smoked tobacco (finding) June 13, 2023 2:19pm Observation Status Observation Response Date of Response Legal Sex Female (finding) Sex Assigned At Female January [id number] Family History Relationship Condition Age at Onset Recorded Date/T sweta brother Diabetes mellitus Unknown Malignant neoplasm Unknown Unknown father Heart disease Unknown Unknown Hypertension Unknown Diabetes mellitus Unknown History of stroke Unknown mother Unknown Malignant neoplasm Unknown Diabetes mellitus Unknown sister Malignant neoplasm Unknown History of stroke Unknown Problems Active Problems Medical Problem Onset Date Status [facility] in Medicare patient Unknown Active ODALYS (generalized anxiety disorder) Unknown Active Type 2 diabetes mellitus with diabetic chronic k idney disease Unknown Active Breast cancer screening by mammogram Unknown Active Menopause Unknown Active Lumbar spinal stenosis Unknown Active Secondary hyperparathyroidism Unknown Ac tive Malignant neoplasm of ovary Unknown Acti ve Dietary counseling and surveillance Unknown Active CKD (chronic kidney disease) stage 3, GFR 30-59 ml/min Unknown Active Age related osteoporosis Unknown Active Hypertensive chronic kidney disease with stage 1 through stage 4 chronic kidney disease, or unspecified chronic kidney disease Unknown Active Fibromyalgia Unknown Active Hyperlipidemia Unknown Active Obesity, Class II, BMI 35-39.9 Unknown A ctive Osteoarthritis Unknown Active BMI 36.0-36.9,adult Unknown Active GERD without esophagitis Unknown Active Right shoulder pain Unknown Active Hypertension Unknown Active Vitamin D deficiency Unknown Active Iron deficiency Unknown Active Hypomagnesemia Unknown Active Inactive/Resolved Problems Medical Problem Onset Date Status BMI 34.0-34.9,adult Unknown Resolved Medications Medication Status Dose Units Route Directions Qty Days St art Date Stop Date End Date Instructions Adherence Ferrous Sulfate 325 mg (65 mg iron) tablet Discont inued 325 MG PO Every 48 hours 45 July 27, 2023 4:45pm Octob er 2023 4:47p m Dapaglifloz in Propanediol (Farxiga) 5 mg tablet Discont inued 5 MG PO Daily September 22, 2023 1:41pm Octob er 2023 4:50p m Ferrous Sulfate 325 mg (65 mg iron) tablet Discont inued 325 MG PO Every 48 hours 45 Novobe r 2023 4:47pm June 06, 2024 9:20a m Dapaglifloz in Propanediol (Farxiga) 5 mg tablet Discont inued 5 MG PO Daily r 2023 4:50pm July 12, 2024 10:54 am Ferrous Sulfate 325 mg (65 mg iron) tablet Active 0 .ROUTE .COMPLEX June 06, 2024 9:19am TAKE 1 TABLET BY MOUTH EVERY 48 HOURS Unknown Dapaglifloz in Propanediol (Farxiga) 5 mg tablet Active 5 MG PO Daily July 12, 2024 10:53a m RX FOR AZ&ME PATIENT ASSISTANCE PROGRAM Unknown Gabapentin 100 mg capsule Discont inued 100 MG PO Daily 2024 1:25pm Septe mber 2024 5:28p m Finerenone 10 mg tablet Discont inued 1 TAB PO Daily May 11, 2023 12:00a m May 11, 2023 5:58p m Free[employer]Sig: TAKE 1 TABLET BY MOUTH EVERY DAY; Note: Source Status: Taking; Refills: 1; Qty: 90 Tablet; Provider: Cindy Lyn ( ) Finerenone 10 mg tablet Discont inued 10 MG PO Daily 90 90 May 11, 2023 5:55pm June 14, 2023 4:23p m Duloxetine 60 mg capsule,del ayed release(DR/ EC) Active 60 MG PO Daily September 04, 2024 12:00a m Unknown Gabapentin 100 mg capsule Active 100 MG PO Three times daily 270 Septem 2024 5:27pm Complies with drug therapy Calcium Carbonate-V itamin D3 600 mg-20 mcg (800 unit) tablet Active 1 TAB PO Twice daily June 13, 2023 12:00a m Unknown Melatonin 10 mg tablet Active 20 MG PO Daily at bedtime June 13, 2023 12:00a m Unknown Magnesium Oxide 250 mg magnesium tablet Active 250 MG PO Daily June 13, 2023 12:00a m Unknown Sertraline 50 mg tablet Discont inued 50 MG PO Daily June 13, 2023 12:00a m Octob er 2023 2:20p m Losartan 100 mg tablet Active 100 MG PO Daily June 13, 2023 12:00a m Unknown Gabapentin 100 mg capsule Discont inued 100 MG PO Daily June 13, 2023 12:00a m [facility] 2024 1:26p m Aspirin 81 mg tablet,chew able Active 81 MG PO Daily June 13, 2023 12:00a m Unknown Omeprazole 20 mg capsule,del ayed release(DR/ EC) Active 20 MG PO Daily June 13, 2023 12:00a m Unknown Ferrous Sulfate 325 mg (65 mg iron) tablet Discont inued 325 MG PO Every 48 hours June 13, 2023 12:00a m July 27, 2023 4:45p m Amlodipine 5 mg tablet Active 5 MG PO Daily June 13, 2023 12:00a m Unknown Meloxicam 15 mg tablet Active 15 MG PO Daily June 13, 2023 12:00a m Unknown Cetirizine (Zyrtec) 10 mg tablet Active 10 MG PO Daily June 13, 2023 12:00a m Unknown Ascorbic Acid (Vitamin C) 1,000 mg tablet Active 1 GM PO Daily June 13, 2023 12:00a m Unknown Atorvastati n 20 mg tablet Active 20 MG PO Daily June 13, 2023 12:00a m Unknown Latanoprost 0.005 % drops Active 1 DROPS OPHTHA LMIC Daily June 13, 2023 12:00a m FreeTextSi drop into affected eye in the evening Ophthalmic Once a day; Note: Source Status: Taking; Provider: Sadaf Lebron ( ) Unknown Multivitami n (One Daily Essential) tablet Active 1 TAB PO Daily June 13, 2023 12:00a m Unknown Platte-3 Fatty Acids 1,000 mg capsule Active 1000 MG PO Twice daily June 13, 2023 12:00a m Unknown Dapaglifloz in Propanediol (Farxiga) 5 mg tablet Discont inued 5 MG PO Daily June 13, 2023 12:00a m September 22, 2023 1:42p m Cholecalcif maría elena (Vitamin D3) 50 mcg (2,000 unit) capsule Active 50 MCG PO Daily June 13, 2023 12:00a m Unknown Diphenhydra mine-Acetam inophen 25-500 mg tablet Active 2 TAB PO Daily June 13, 2023 12:00a m Unknown Alendronate (Fosamax) 70 mg tablet Active 70 MG PO every week June 13, 2023 12:00a m Unknown Duloxetine 30 mg capsule,del ayed release(DR/ EC) Discont inued 30 MG PO Once Octobe 2023 12:00a m September 04, 2024 2:36p m Tramadol 50 mg tablet Active 50 MG PO Daily at bedtime as needed June 12, 2024 12:00a m Unknown Immunizations Immunization Event Date Not Given Reason Dose Number Security Messenger Lot Number Vaccine Information Statement (VIS) Detail Administration Location COVID-19 Tigist Hodgson (y prime) April 03, 2020 COVID-19 mRNATigist (y prime) April 25, 2020 COVID-19 mRNATigist (y prime) December 05, 2020 Relevant Diagnostic Tests and/or Laboratory Data Laboratory Results Test Collection Date/Time Result Date/Time Result Interpretation Reference Range Result Comment Performing Site Bedside Hemoglobin A1c September 04, 2024 7:16am September 04, 2024 2:42pm 5.8 % Bedside Glucose September 04, 2024 2:28pm September 04, 2024 2:28pm 88 Vital Signs Vital Reading Result Reference Range Collection Date/Time Height 64 [in_i] September 04, 2024 2:17pm Weight 96.00 kg September 04, 2024 2:17pm Heart Rate 83 /min 60-100 September 04, 2024 2:17pm Respiratory rate 18 /min 12-September 04, 2:17pm Oxygen saturation by Pulse oximetry 100 % 95-100 September 04, 2024 2:17p m BP Systolic 146 mm[Hg] 100-140 September 04, 2024 2:17pm BP Diastolic 84 mm[Hg] 60-100 September 04, 2024 2:17pm BMI (Body Mass Index) 36.3 kg/m2 September 042024 2:17pm Height 64 [in_i] November 06, 2024 2:09pm Weight 98.20 kg November 06, 2024 2:09pm Body Temperature 98.6 [degF] 97.6-99.0 November 062024 2:09pm Heart Rate 86 /min 60-100 November 06, 2024 2:09pm Respiratory rate 18 /min -November 062024 2:09pm Oxygen saturation by Pulse oximetry 95 % 95-100 November 06, 2024 2:09pm BP Systolic 118 mm[Hg] 100-140 November 06, 2024 2:09pm BP Diastolic 84 mm[Hg] 60-100 November 06, 2024 2:09pm BMI (Body Mass Index) 37.1 kg/m2 2024 2:09pm Height 64 [in_i] November 21, 2024 4:57pm Weight 98.03 kg November 21, 2024 4:57pm Body Temperature 97.8 [degF] 97.6-99.0 October 302024 4:57pm Heart Rate 99 /min 60-100 November 21, 2024 4:57pm Respiratory rate 18 /min -October 302024 4:57pm Oxygen saturation by Pulse oximetry 96 % 95-100 November 21, 2024 4:57pm BP Systolic 142 mm[Hg] 100-140 November 21, 2024 4:57pm BP Diastolic 88 mm[Hg] 60-100 November 21, 2024 4:57pm BMI (Body Mass Index) 37.0 kg/m2 2024 4:57pm Advance Directives Advance Directive Response Recorded Date/ Time Advance Directives No May 03 1:16pm Insurance Providers Guarantor Ashley Olson Address [address] [facility] [place] [address] Contact Info. Home Phone: Payer Policy Id Subscriber's Name Subscriber Id Effectiv e Date Expiration Date Medicare [id number] Ashley Olson [id number] [facility] Health Claims [id number] Ashley Olson [id number] Encounters Encounter Location(s) Arrival/Admit Date Discharge/Depart Date Provider(s) Departed Physician/Prov ider Office Visit -[facility] September 04, 2024 1:57pm September 04, 2024 2:58pm JOHN Cordova Departed Physician/Prov ider Office Visit -[facility] Family [place] November 06, 2024 1:42pm November 06, 2024 2:35pm ROSA Mcgrath Departed Physician/Prov ider Office Visit -[facility] November 21, 2024 4:25pm November 21, 2024 5:32pm ROSA Mcgrath Recent Diagnosis Onset Date Admit Date Dietary counseling and surveillance Unknown September 04, 2024 1:57pm Hyperlipidemia Unknown September 04, 2024 1 :57pm Hypertension Unknown September 04, 2024 1 :57pm Obesity, Class II, BMI 35-39.9 Unknown J moreno 2024 1:57pm Type 2 diabetes mellitus wit h diabetic chronic kidney disease Unknown September 04, 2024 1:57pm ODALYS (generalized anxiety disorder) Unknown November 06, 2024 1:42pm Hypertension Unknown November 06, 1:42pm Obesity, Class II, BMI 35-39.9 Unknown S eptember 2024 1:42pm Right shoulder pain Unknown October 1:42pm Lumbar spinal stenosis Unknown November 21, 2024 4:25pm Assessments Diagnosis Onset Date Resolution Status Admit Date Dietary counseling and surveillance acute September 04, 2024 1 :57pm Hyperlipidemia acute September 04, 2024 1:57pm Hypertension acute September 04 1:57pm Obesity, Class II, BMI 35-39.9 acute September 04, 2024 1:57pm Type 2 diabetes mellitus wit h diabetic chronic kidney disease acute September 04, 2024 1:57pm ODALYS (generalized anxiety disorder) acute November 06, 025 1:42pm Hypertension acute October 1:42pm Obesity, Class II, BMI 35-39.9 acute November 06, 2024 1:42pm Right shoulder pain acute Septe mber 2024 1:42pm Lumbar spinal stenosis acute Se ptember 2024 4:25pm Plan of Treatment Author Bernardino Talavera [facility] Authored September 04, 2024 3:02p m Type 2 diabetes mellitus Clinical Notes: 1. Controlled, a Type 2 diabetes with A1c of 5.8% 2. Blood glucose levels stable. Continue Farxiga 5mg 1 tab daily. Note: history of adverse s/e to ozempic, metformin. 3. Patient is alert, oriented and receptive to making changes or counseling Notes: Seen for an assessment of current glucose pattern, changes in treatment plan, this time was spent counseling and coordination of care related to diabetes, risks, and benefits of treatment, medications, and side effects. TOPICS REVIEWED: 1. Time was spent reviewing: a. Basic concepts of diabetes, progressive beta cell . The goal is fasting blood glucose of 90-130mg. b. Nutrition: Concepts of healthy diet reviewed, encouraged to decrease saturated fat in diet [...] hyperglycemia, or diabetes medication issues. 6. Prescriptions: AZ &Me pap- farxiga. 7. Prescriptions will not be filled unless you are compliant with follow up appointments or have a follow up appointment scheduled as ordered by your provider. Refills should be requested at the time of your visit. on arb- managed by pcp 2024 ADA Guidelines- target blood pressure < 130/80, if it can be safely attained. 02/20 ldl 54/trig 182 on statin; managed by pcp see above see above Author Dana Tapia [facility] Authored November 06, 2024 2:42pm Please check blood pressure daily and record DASH diet Limit caffeine Take medication as directed Contact office if chest pain, pressures, dizziness, shortness of breath, swelling in the legs Recommend slow position changes if you develop dizziness with position changes current meds;amlodipine, losartan currently taking duloxetine Discussed with patient their BMI (actual vs recommended). We have discussed lifestyle modifications: attempts to perform phsyical activity as chronic conditions allow, monitor dietary intake: increasing protein/fruits/veggies and lowering carb intake (unless contraindicated). Limit sodas, juices, sugary drinks, as well as alcohol consumption. I have recommended that the patient contact her ortho for evaluation, supsect possible biceps tendon tear she will call the office to get an appt Future Tests Future scheduled test information is unavailable Pending Tests Test Name Ordered Date Scheduled Date XR lumbar spine min 4V* November 21, 2024 5:2 2pm Future Visits Future appointment information is unavailable Referrals to Other Providers Referral information is unavailable Future Procedures Procedure Name Ordered Date Scheduled Date Lipid Panel September 04, 2024 2:45pm 5 Months Future Medications Future medication information is unavailable Patient Instructions Instruction Admit Date Diabetes and diet September 04, 2024 1:57p m
--- NOTE | 2024-11-23 08:12 | XR_ITS ---
The [address] [address] Patient Name: TAMMY SOLORIO MRN: [id number] date: 1945 Sex: F Assigned Patient Location: [facility] Current Patient Location: [facility] Accession/Order Number: [id number] Exam Date: 11/23/2024 08:24 Report Date: 11/23/2024 08:46 At the request of: KATJA LEO NP Procedure: XR lumbar spine min 4V LUMBAR SPINE -4 views: CLINICAL HISTORY: Chronic low back pain and right foot numbness. No recent injury. M48.061 COMPARISON: None AP, lateral and both oblique views of the lumbosacral junction were obtained. There is osteopenia. Slight dextroscoliotic curvature is noted. There is no acute compression fracture. There is slight anterolisthesis of L4 with respect to the adjacent vertebra. There is disc space narrowing at T11-T12 with endplate sclerosis and spurring. There is also disc space narrowing at the lumbosacral junction. Moderate lower lumbar facet hypertrophy is seen. No pars defect is identified. The SI joints are intact. No paraspinal soft tissue abnormalities are seen. There are clips within the pelvis. XR/XR lumbar spine min 4V IMPRESSION: OSTEOPENIA, SUBTLE SCOLIOSIS AND DEGENERATIVE CHANGE, GREATEST AT THE LOWER FACETS. Impression dictated by: Grecia Hassan M.D. 11/23/2024 8:46 AM Dictation Location: [place] [address] Electronically authenticated by: [id number] Y Date: 11/23/2024 08:46
--- OUTSIDE RECORDS SUMMARY | 2024-11-23 08:12 | XMS_ITS | CCD ---
Author Organization [facility] Care Team Providers [facility] Teacher Name Role Phone SULY SANTOS Unavailable Unavailable SULY SANTOS Unavailable Unavailable SULY SANTOS Unavailable Unavailable JACKLYN STARR Unavailable Unavailable Natalee Camacho Unavailable Mapus, Tondra Unavailable Buck, Eboni Unavailable Kristin Cardoso Unavailable AICGeneHOLZ, COILER DANA Admitting Unavailable AICHHOLZ, COILER DANA Attending Unavailable AICHHOLZ, COILER DANA Primary Care Unavailable DR ANDRÉS HANCOCK V Consulting Unavailable AICHHOLZ, COILER DANA Consulting Unavailable MAPUS, TONDRA Admitting Unavailable MAPUS, TONDRA Attending Unavailable AICHHOLZ, COILER DANA Primary Care Unavailable MAPUS, TONDRA Consulting Unavailable BUCK, EBONI Admitting Unavailable BUCK, EBONI Attending Unavailable AICHHOLZ, COILER DANA Primary Care Unavailable BUCK, EBONI Consulting Unavailable BUCK, EBONI Admitting Unavailable BUCK, EBONI Attending Unavailable AICHHOLZ, COILER DANA Primary Care Unavailable AICHHOLZ, COILER DANA Consulting Unavailable BUCK, EBONI Consulting Unavailable AICHHOLZ, COILER DANA Admitting Unavailable AICHHOLZ, COILER DANA Attending Unavailable AICHHOLZ, COILER DANA Primary Care Unavailable AICHHOLZ, COILER DANA Consulting Unavailable AICHHOLZ, COILER DANA Admitting Unavailable AICHHOLZ, COILER DANA Attending Unavailable AICHHOLZ, COILER DANA Primary Care Unavailable AICHHOLZ, COILER DANA Consulting Unavailable BUCK, EBONI Admitting Unavailable BUCK, EBONI Attending Unavailable AICHHOLZ, COILER DANA Primary Care Unavailable BUCK, EBONI Consulting Unavailable MAPUS, TONDRA Admitting Unavailable MAPUS, TONDRA Attending Unavailable AICHHOLZ, COILER DANA Primary Care Unavailable MAPUS, TONDRA Consulting Unavailable BUCK, EBONI Admitting Unavailable BUCK, EBONI Attending Unavailable AICHHOLZ, COILER DANA Primary Care Unavailable BUCK, EBONI Consulting Unavailable Aichholz OTR VAN CDL TRUCK DRIVER, Dana Unavailable Lex Martinez MD Primary Care Provider NO FAMILY, PHYSICIAN Primary Care Provider Unava ilable Mapus, LOAN DOCUMENTATION SPECIALIST Tondra K Attending Provider [phone] NO FAMILY, PHYSICIAN Primary Care Provider Unava ilable Mapus, LOAN DOCUMENTATION SPECIALIST Tondra K Attending Provider [phone] Willie OTR VAN CDL TRUCK DRIVER, Dana Unavailable Lex Martinez MD Primary Care [...] J Primary Care Unavailable TONIE, JEFFREY España Admitting Unavailable TONIE, JEFFREY [place] Attending Unavailable TONIEJEFFREY Referring Unavailable AICHHOLZ, DANA J Primary Care Unavailable ANDRÉS VAZQUEZ Attending Unavailable AICHHOLZ, DANA J Primary Care Unavailable MAPUS, TONDRA K Referring Unavailable AICHHOLZ, DANA J Primary Care Unavailable AICHHOLZ, DANA J Primary Care Unavailable CARLOS JASON Attending Unavailable Lex Martinez MD Primary Care Provider Mapus LOAN DOCUMENTATION SPECIALIST, Tondra K Attending Provider Aichholz LOAN DOCUMENTATION SPECIALIST-COILER, Dana J [facility] TRUCK DRIVER, Dana Unavailable Lisettepatricia LOAN DOCUMENTATION SPECIALIST-COILER, Dana J Primary Care Provider Lex Martinez MD Primary Care Provider Buck VALE, Eboni Attending Provider [phone] Pravin WANG, Bernardino Pires Attending Provider CARLOS BAER Attending Unavailable BUDDYLEO BONE Attending Unavailable ASSENMACHER, DANIEL Referring Unavailable TATTERSALL, MELY Attending Unavailable ASSENMACHER, DANIEL Referring Unavailable JORGE, JESENIA Attending Unavailable ASSENMACHER, DANIEL Referring Unavailable JORGE, JESENIA Attending Unavailable ASSENMACHER, DANIEL Referring Unavailable AICHHOLZ, DANA Attending Unavailable BUDDYLEO Attending Unavailable ASSENMACHER, DANIEL Referring Unavailable JORGE, [...] MELY Attending Unavailable ASSENMACHER, DANIEL Referring Unavailable AICHHOLZ, DANA Attending Unavailable RUSHERCARLOS Attending Unavailable AICHHOLZ, DANA Attending Unavailable RUSHERCARLOS Attending Unavailable PULIDOMAY Attending Unavailable BUDDYLEO BONE Attending Unavailable PULIDO, MAY T Referring Unavailable AICHHOLZ, DANA Attending Unavailable BUDDYLEO BONE Attending Unavailable PULIDO, MAY T Referring Unavailable JORGE, JESENIA Attending Unavailable PULIDO, MAY T Referring Unavailable JORGE, JESENIA Attending Unavailable PULIDO, MAY T Referring Unavailable JORGE, JESENIA Attending Unavailable PULIDO, MAY T Referring Unavailable PULIDO, MAY T Attending Unavailable BUDDYLEO BLACK Attending Unavailable PULIDO, MAY T Referring Unavailable JORGE, JESENIA Attending Unavailable PULIDO, MAY T Referring Unavailable BUDDYLEO BONE Attending Unavailable PULIDO, MAY T Referring Unavailable JORGE, JESENIA Attending Unavailable MAY PULIDO Referring Unavailable JESENIA JORGE Attending Unavailable TESS, MAY Conti Referring Unavailable CHRISTINE URIBE Attending Unavailable TESS, MAY Conti Referring Unavailable LEO GOODWIN Attending Unavailable TESS, MAY Conti Referring Unavailable TESS, MAY Conti Attending Unavailable TESS, MAY Conti Referring Unavailable LEO GOODWIN Attending Unavailable JESENIA JORGE Attending Unavailable TESS, MAY Conti Referring Unavailable JEFFREY SCHILLING Attending Unavailable AICHHOLZ, DANA Attending Unavailable RUSHERCARLOS Attending Unavailable AICHHOLZ, DANA Attending Unavailable AICHHOLZ, DANA Attending Unavailable AICHHOLZ, DANA Attending Unavailable AICHHOLZ, DANA Attending Unavailable Jimbo VALE, Lex Primary Care Provider [phone] [facility], Dana Mcintyre Attending Provider DANIEL WOLF P Attending Unavailable AICHHOLZ, DANA J Referring Unavailable AICHHOLZ, DANA J Primary Care Unavailable ASSENMACHER, DANIEL P Referring Unavailable AICHHOLZ, DANA J Primary Care Unavailable ASSENMACHER, DANIEL P Referring Unavailable AICHHOLZ, DANA J Primary Care Unavailable ASSENMACHER, DANIEL P Admitting Unavailable ASSENMACHER, DANIEL P Attending Unavailable AICHHOLZ, DANA J Primary Care Unavailable ASSENMACHER, DANIEL P Attending Unavailable AICHHOLZ, DANA J Referring Unavailable AICHHOLZ, DANA J Primary Care Unavailable ASSENMACHER, DANIEL P Referring Unavailable AICHHOLZ, DNAA J Primary Care Unavailable ASSENMACHER, DANIEL P Attending Unavailable AICHHOLZ, DANA J Referring Unavailable AICHHOLZ, DANA J Primary Care Unavailable ASSENMACHER, DANIEL P Attending Unavailable AICHHOLZ, DANA J Referring Unavailable AICHHOLZ, DANA J Primary Care Unavailable ASSENMACHER, DANIEL P Attending Unavailable AICHHOLZ, DANA J Referring Unavailable AICHHOLZ, DANA J Primary Care Unavailable ASSENMACHER, DANIEL P Attending Unavailable AICHHOLZ, DANA J Referring Unavailable AICHHOLZ, DANA J Primary Care Unavailable ASSENMACHER, DANIEL P Referring Unavailable AICHHOLZ, DANA J Primary Care Unavailable Aichholz OTR VAN CDL TRUCK DRIVER-C, Dana J Attending Provider Dana Gandhi Primary Care Provider [phone] Allergies Allergy Classification Reported Allergen(s) Allergy Type Date of Onset Reaction(s) Facility (20 sources) Sulfamethoxazole / Trimethoprim Drug Allergy [facility] [employer] Other (20 sources) semaglutide; Translations: [SEMAGLUTIDE] Drug Allergy 03-31-19 24 Diarrhea [facility] (13 sources) Soy Protein Shake Drug allergy Unknown [facility] [employer] Other (20 sources) metFORMIN; Translations: [METFORMIN] Drug Allergy 03-31-19 24 g/i s/e [facility] (5 sources) Soy Balance Drug allergy [facility] [employer] Other (20 sources) Sulfonamides (Antibiotic) Drug Allergy 10-29-19 Hives, Rash [facility] (20 sources) Wound Dressing Adhesive Drug Allergy 09-16-19 23 Unknown [facility] (20 sources) Soy protein; Translations: [SOY] Allergy to substance 12-09-19 Nausea [facility] (10 sources) Sulfamethoxazole; Translations: [sulfamethoxazole] Drug Allergy 03-31-19 [facility] (10 sources) Trimethoprim; Translations: [trimethoprim] Drug Allergy 03-31-19 24 [facility] (20 sources) Soy protein Allergy to substance 10-04-19 24 Unknown [facility] (20 sources) Other Allergy to substance 06-13-19 Unknown [facility] (20 sources) Semaglutide Allergy to substance 06-13-19 Diarrhea [facility] (3 sources) Sulfonamides (Antibiotic); Translations: [SULFA (SULFONAMIDE ANTIBIOTICS)] Propensity to adverse reactions to drug (disorder) 10-29-19 [facility] (13 sources) ADHESIVE TAPE-SILICONES; Translations: [ADHESIVE TAPE-SILICONES] Propensity to adverse reactions to drug (disorder) 10-30-19 [facility] (1 source) metFORMIN Drug Allergy 12-12-19 [facility] (1 source) semaglutide Drug allergy (disorder) 12-12-19 [facility] (12 sources) Soy protein Allergy to substance 10-04-19 Unknown [facility] (20 sources) Soy protein Allergy to substance 10-04-19 24 Unknown [facility] Medications Current Medications Medication Drug Class(es) [...] Active Start: 06-13-2023 take 2 tablets by mouth once d aily alendronic acid 70 mg oral tablet (20 sources) Bisphosphonate Start: 06-13-2023 take 1 tablet by fidel th every week Start: 03-08-2023 End: 10-04-2024 take 1 tablet by mouth in the morning alendronate (Fosamax) 70 MG tablet Indications: Osteoporosis Take 1 tablet (70 mg) by mouth every 7 (seven) days Take in the morning with a full glass of water, on an empty stomach, and do not take anything else by mouth or lie down for the next 30 min. 12 tablet 1 07/12/2024 Active amLODIPine 5 mg oral tablet (20 sources) Dihydropyridine Calcium Channel Leti Start: 06-13-2023 End: 08-28-2024 take 1 tablet by mouth once daily Start: 06-28-2022 take 1 tablet by fidel th in the morning amLODIPine (Norvasc) 5 MG tablet Take 5 mg by mouth in the morning. 0 06/28/2022 Active Start: 08-08-2016 take 0.5 tablet by m outh in the morning amLODIPine (NORVASC) 10 mg tablet Take 0.5 tablets (5 mg total) by mouth in the morning. 3 08/08/2016 Active amoxicillin 500 mg oral capsule (4 sources) Penicillin-class Antibacterial Start: 07-11-2024 End: 07-13-2024 amoxicillin (Amoxil) 500 MG capsule Take 2 capsules 1 hour prior to dental cleaning, then take 2 capsules every 12 hours after cleaning until gone 07/11/2024 07/13/2024 Active amoxicillin 875 mg / clavulanate 125 mg oral tablet (2 sources) Penicillin-class Antibacterial Start: 02-06-2024 End: 02-16-2024 take 1 tablet by mouth in the morning amoxicillin-clavu lanate (Augmentin) 875-125 MG tablet Indications: Acute non-recurrent pansinusitis Take 1 tablet (875 mg) by mouth in the morning and 1 tablet (875 mg) before bedtime. Do all this for 10 days. 20 tablet 02/06/2024 02/16/2024 Active ascorbic acid 1000 mg oral tablet (20 sources) Vitamin C Start: 06-13-2023 take 1 g by mouth once daily Start: 06-13-2023 take 1 g by mouth [...] Active Start: 06-13-2023 take 1 tablet by mouth once da ran take 1 tablet by fidel th every twenty-four hours Aspirin 81 MG 1 tablet Orally Once a day for 30 day(s) Active atorvastatin 20 mg oral tablet (20 sources) HMG-CoA Reductase Inhibitor Start: 05-01-2021 End: 10-10-2024 take 1 tablet by mouth once daily Benadryl Allergy 25 MG (1 source) Start: 09-23-2021 take 1 capsule by mouth once daily at bedtime as needed Benadryl Allergy 25 MG 1 capsule at bedtime as needed Orally Once a day for 30 day(s) As needed for rash and itching Aug, Active calcium carbonate 1500 mg / cholecalciferol 800 unt oral tablet (18 sources) Vitamin D Start: 06-13-2023 take 1 tablet by mouth twice daily take 1 tablet by fidel th once in the morning calcium carbonate-vitamin D3 (OSCAL 500 + D) 500 mg(1,250mg) -200 units per tablet Take 1 tablet by mouth in the morning and 1 tablet in the evening. Take with meals. Active Calcium Carbonate / Vitamin D (20 sources) Calcium Carbonat e-Vitamin D (CALTRATE 600+D PO) Active Calcium Carbonat e-Vitamin D (CALTRATE 600+D PO) Caltrate 600+D Active Calcium Carbonat e-Vitamin D (CALTRATE 600+D PO) Caltrate 600+D 0 Active Caltrate 600+D 600-400 MG-UNIT (20 sources) [facility] Caltrate 600+D 600-400 MG-UNIT 1 [...] take 1 tablet by mouth once daily Start: 08-18-2016 cetirizine (Zy rTEC) 10 mg tablet 4 08/18/2016 Active cholecalciferol 0.05 mg oral capsule (20 sources) Vitamin D Start: 06-13-2023 take 1 capsule by [facility] once daily take 1 capsule by [facility] in the morning cholecalciferol, vitamin D3, 2,000 units capsule Take 1 capsule (2,000 Units total) by mouth in the morning. Active cholecalciferol (Vitamin D-3) 50 MCG (2000 UT) tablet Active cholecalciferol (Vitamin D-3) 50 MCG (2000 UT) tablet Vitamin D3 Active take 1 capsule by [facility] every twenty-four hours Vitamin D 50 MCG (2000 UT) 1 capsule Ora lly Once a day for 30 day(s) Active docosahexaenoic acid 120 mg / eicosapentaenoic acid 180 mg oral capsule (20 sources) Start: 06-13-2023 fish oil-omega -3 fatty acids 1000 MG capsule 06/13/2023 Active Start: 06-13-2023 fish oil-omega -3 fatty acids 1000 MG capsule Twice daily 06/13/2023 Active omega-3 (fish oi l) 1000 MG capsule 1 capsule 1 (one) time each day at the same time. 0 Active DOCOSAHEXANOIC ACID/EPA (FIS H OIL ORAL) (10 sources) DOCOSAHEXANOIC A STEPHON/EPA (FISH OIL ORAL) Take by mouth in the morning. Active DOCOSAHEXANOIC A STEPHON/EPA (FISH OIL ORAL) Take by mouth daily. Active DULoxetine 60 mg delayed release oral capsule (20 sources) Serotonin and Norepinephrine Reuptake Inhibitor Start: 07-12-2024 End: 11-20-2024 take 1 capsule by mouth once daily Start: 11-28-2023 End: 09-04-2024 take 1 capsule by mouth once Duloxetine 30 mg capsule, delayed release(DR/EC) Discontinued 30 MG PO Once December 12, 2023 12:00am September 04, 2024 2:36pm ferrous sulfate 325 mg oral tablet (20 sources) Start: 06-06-2024 Start: 05-27-2021 End: 06-06-2024 Ferrous Sulfate 325 mg (65 m g iron) tablet Discontinued 325 MG PO Every 48 hours June 13, 2023 12:00am July 27, 2023 4:45pm take 1 tablet by fidel th every other day ferrous sulfate 325 (65 Fe) MG tablet Take 1 tablet by mouth every other day Active take 1 tablet by fidel th every other day Ferrous Sulfate 325 (65 Fe) MG TAKE 1 TABLET BY MOUTH EVERY OTHER DAY for 90 Active take 1 tablet by fidel th every other day Ferrous Sulfate 325 (65 Fe) MG [...] propionate 0.05 mg/actuat metered dose nasal spray (10 sources) Corticosteroid fluticasone (NATASHA NASE) 50 mcg/actuation nasal spray Administer 1 spray into each nostril as needed. Active gabapentin 100 mg oral capsule (20 sources) Anti-epileptic Agent Start: 11-22-19 take 1 capsule by mouth three times daily Gabapentin 100 mg capsule Active 100 MG PO Three times daily November 21, 2024 5:27pm Complies with drug therapy Start: 09-24-2016 End: 11-21-2024 take 1 capsule by mouth once daily Gabapentin 100 mg capsule Discontinued 100 MG PO Daily November 19, 2024 1:25pm November 21, 2024 5:28pm Gabapentin Activ e kerendia 10 mg tablet (1 source) take 1 tablet by mouth once daily Kerendia 10 MG TAKE 1 TABLET BY MOUTH EVERY DAY for Active Kerendia 10 MG tablet (2 sources) take 1 tablet by mouth in the morning Kerendia 10 MG tablet Take 10 mg by mouth in the morning. 0 Active latanoprost 0.05 mg/ml ophthalmic solution (20 sources) Prostaglandin Analog Start: 06-13-2023 take 1 drop(s) into the eye(s) once daily in the evening Start: 06-13-2023 take 1 drop(s) into the eye(s) once daily in the evening Latanoprost Active 1 DROPS OPHTHALMIC Daily June 13, 2023 12:00am [employer] drop into affected eye in the evening Ophthalmic Once a day; Note: Source Status: Taking; Provider: Sadaf Lebron ( ) Start: 07-20-2022 latanoprost (X alatan) 0.005 % ophthalmic solution 07/20/2022 Active Start: 07-20-2022 take 1 drop(s) into the [...] 1 tablet by mouth once daily Magnesium (20 sources) magnesium 250 MG tablet 1 (one) time each day at the same time Active magnesium 250 MG tablet 1 (one) time each day at the same time. Active magnesium 250 MG tablet 1 (one) time each day at the same time. 0 Active take 1 tablet by mouth once michael y Magnesium 250 MG 1 tablet with a meal Orally Once a day Active magnesium carbonate 250 mg oral capsule (10 sources) take 250 mg by mouth in the morning MAGNESIUM CARBONATE ORAL Take 250 mg by mouth in the morning. Active magnesium oxide 250 mg oral tablet (8 sources) Start: 06-13-2023 take 1 tablet by mouth once daily melatonin 10 mg oral tablet (20 sources) Start: 06-13-2023 take 2 tablets by mouth once daily at bedtime Start: 06-13-2023 take 20 mg by mouth once daily at bedtime Melatonin Active 20 MG PO Daily at bedtime June 13, 2023 12:00am melatonin tablet Take by mouth nightly. Active melatonin tablet Take by mouth at bedtime Active Melatonin 10 MG as directed Orally Active Melatonin 10 MG as directed Orally Active Melatonin + L-Theanine - (7 sources) Melatonin + L-Theanine - as directed Orally Active meloxicam 15 mg oral tablet (20 sources) Nonsteroidal Anti-inflammatory Drug Start: 017 End: 025 take 1 tablet by mouth once daily 24 hr metFORMIN hydrochloride 500 mg extended [...] For Women 50+ Adv) tablet (20 sources) Multiple Vitamins-Minerals (One Daily For Women 50+ Adv) tablet Active take 1 tablet by mouth once michael y Multiple Vitamins-Minerals (One Daily For Women 50+ Adv) tablet as directed Orally Active take 1 tablet by mouth once michael y Multiple Vitamins-Minerals (One Daily For Women 50+ Adv) tablet as directed Orally 0 Active jstiwadh-nlhj-ZJ-calcium &mi ns (THERAGRAN-M) 9 mg iron-400 mcg tablet (10 sources) cemgkzhc-bngk-JY -calcium &mins (THERAGRAN-M) 9 mg iron-400 mcg tablet Take 1 tablet by mouth in the morning. Active Multivitamin (One Daily Essential) tablet (8 sources) Start: take 1 tablet by mouth once daily Start: 06-13-2023 take 1 tablet by fidel th once daily Multivitamin (One Daily Essential) tablet Active 1 TAB PO Daily June 13, 2023 12:00am Complies with drug therapy Start: 06-13-2023 take 1 tablet by fidel th once daily Multivitamin (One Daily Essential) tablet Active 1 TAB PO Daily June 12, 2023 11:00pm Start: 06-13-2023 take 1 tablet by fidel th once daily Multivitamin (One Daily Essential) tablet Active 1 TAB PO Daily June 13, 2023 12:00am [place] 3 1000 MG (20 sources) take 1 capsule by mouth once daily [place] 3 1000 MG 1 capsule Orally Once a day Active [place]-3 Fatty Acids (3 sources) Start: 06-13-2023 take 1000 mg by mouth twice daily [place]-3 Fatty Acids Active 1000 MG PO Twice daily June 13, 2023 12:00am [place]-3 Fatty Acids 1,000 mg capsule (5 sources) Start: 06-13-2023 take 1 capsule by mouth twice daily Start: 06-13-2023 take [address] [facility] twice daily [place]-3 Fatty Acids 1,000 mg capsule Active 1000 MG PO Twice daily June 13, 2023 12:00am Complies with drug therapy Start: 06-13-2023 take 1 capsule by mo uth twice daily [place]-3 Fatty Acids 1,000 mg capsule Active 1000 MG PO Twice daily June 13, 2023 12:00am Start: 06-13-2023 take 1 capsule by mo uth twice daily [place]-3 Fatty Acids 1,000 mg capsule Active 1000 MG PO Twice daily June 12, 2023 11:00pm omeprazole 20 mg delayed release oral capsule (20 sources) Proton Pump Inhibitor Start: 08-11-2016 End: 08-28-2024 take 1 capsule by mouth once daily ondansetron 4 mg disintegrating oral tablet (20 sources) Serotonin-3 Receptor Antagonist Start: 02-20-2024 End: 03-21-2024 take 1 tablet by mouth every eight hours as needed ondansetron ODT (Zofran-ODT) 4 MG disintegrating tablet Take 4 mg by mouth every 8 (eight) hours if needed 02/20/2024 Active One Daily For Women 50+ Adv - (20 sources) One Daily For Wo men 50+ Adv - as directed Orally Active traMADol hydrochloride 50 mg oral tablet (20 sources) Opioid Agonist Start: 06-12-2024 take 1 tablet by mouth once daily at bedtime as needed Start: 04-04-2024 take 1 tablet by fidel th every six hours as needed for pain traMADoL (ULTRAM) 50 mg tablet Indications: S/P reverse total shoulder arthroplasty, right Take 1 tablet (50 mg total) by mouth every 6 (six) hours as needed for pain. 28 tablet 06/07/2024 Active triamcinolone acetonide 0.055 mg/actuat metered dose [...] Drug Class(es) Dates Sig (Normalized) Sig (Original) dapagliflozin 5 mg oral tablet (20 sources) Sodium-Glucose Cotransporter 2 Inhibitor Start: 12-21-2021 End: 07-12-2024 take 1 tablet by mouth once daily Dapagliflozin Propanediol (Farxiga) 5 mg tablet Discontinued 5 MG PO Daily June 13, 2023 12:00am September 22, 2023 1:42pm Finerenone (16 sources) Start: 05-11-2023 End: 06-14-2023 take 1 tablet by mouth once daily Finerenone 10 mg tablet Discontinued 10 MG PO Daily 90 90 March 13th, 2024 5:55pm June 14, 2023 4:23pm Start: 05-11-2023 End: 06-14-2023 take 1 tablet [...] tablet Discontinued 1 TAB PO Daily May 11, [...] MG/DOSE 0.5mg sq Subcutaneous once weekly Active [facility]tone [facility] - (2 sources) [facility] - as directed Orally Not-Taking [facility] - as directed Orally Active sertraline 50 mg oral tablet (20 sources) Serotonin Reuptake Inhibitor Start: 02-27-2023 End: 03-21-2024 take 1 tablet by mouth once daily Sertraline 50 mg tablet Discontinued 50 MG PO Daily June 13, 2023 12:00am December 12, 2023 2:20pm Problems Active Problems Problem Classification Problem Date Documented Date Episodic/Chronic Administrative/socia l admission (18 sources) Dietary counseling and surveillance; Translations: [Patient [...] disease] Onset: 1 Resolved: 2 Chronic Mycoses (5 sources) Onychomycosis due to dermatophyte ; Translations: [Tinea unguium] 04-13-2023 Episodic Nutritional deficiencies (20 sources) Vitamin D deficiency; Translations: [Vitamin D deficiency, unspecified] Onset: 4 06-13-2023 Chronic Nutritional deficiencies (20 sources) Deficiency of other specified B group vitamins; Translations: [Iron deficiency] Onset: 1 Resolved: 2 Episodic Osteoarthritis (20 sources) Arthritis; Translations: [Unspecified osteoarthritis, [...] 5 04-18-2024 Chronic Other connective tissue disease (2 sources) Presence of right artificial shoulder joint; Translations: [Shoulder joint replacement] Onset: 5 06-12-2024 Chronic Other connective tissue disease (20 sources) Fibromyalgia; Translations: [Fibromyalgia] Onset: 3 02-07-2023 Episodic Other connective tissue disease (10 sources) Pain in toe; Translations: [Pain in right toe(s)] 04-13-2023 Episodic Other diseases of kidney and ureters (20 sources) Secondary hyperparathyroidism; Translations: [Secondary hyperparathyroidism of renal origin] Onset: 4 Resolved: 4 06-13-2023 Chronic Other diseases of kidney and ureters (5 sources) Secondary hyperparathyroidism of renal origin; Translations: [...] Onset: 5 Chronic Other non-traumatic joint disorders (2 sources) Arthropathy; Translations: [Arthropathy, unspecified] 12-15-2023 Chronic Other [...] shoulder region] Onset: 4 06-20-2023 Episodic Other nutritional; endocrine; and metabolic disorders [...] Chronic Other nutritional; endocrine; and metabolic disorders (10 sources) Obesity; Translations: [Obesity, unspecified] Onset: 2 07-07-2021 Chronic Other screening for suspected conditions (not mental disorders or infectious disease) (20 sources) Encounter for screening mammogram for malignant neoplasm of breast; Translations: [Patient encounter status] Onset: 2 Episodic Other skin disorders (5 sources) Dystrophia unguium; Translations: [Nail dystrophy] 04-13-2023 Episodic Residual codes; unclassified (20 sources) Menopause present; Translations: [Asymptomatic menopausal state] Onset: 3 02-07-2023 Episodic Residual codes; unclassified (1 source) Pain, unspecified; Translations: [Pain, unspecified] Onset: 4 Episodic Residual codes; unclassified (1 source) Pain Onset: 5 Episodic Spondylosis; intervertebral disc disorders; other back [...] Urticaria, unspecified Onset: 09-23-2021 Resolved: 09-23-2021 Episodic Blindness and vision defects (20 sources) Blurring of visual image; Translations: [Other visual disturbances] Onset: 03-05-2024 03-05-2024 Episodic Immunizations and screening for infectious disease (1 source) Encounter for immunization; Translations: [Encounter for immunization Z23] Onset: 12-05-2020 Resolved: 12-05-2020 Episodic Mood disorders (20 sources) Mood disorders Onset: 03-28-2023 Resolved: 05-07-2024 03-28-2023 Other gastrointestinal disorders (4 sources) Diarrhea, unspecified; Translations: [DIARRHEA UNSPECIFIED] Onset: 06-18-2021 Episodic Other injuries and conditions due to external causes (20 sources) Closed injury of head; Translations: [Unspecified injury of head, subsequent encounter] Onset: 02-27-2024 02-27-2024 Episodic Other nervous system disorders (20 sources) Polyneuropathy associated with another disorder; 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] Onset: 02-07-2023 Resolved: 03-05-2024 02-07-2023 Chronic Other non-traumatic joint disorders (20 sources) Stiffness of right shoulder; Translations: [Stiffness of right shoulder, not elsewhere classified] Onset: 11-24-2023 11-24-2023 Episodic Other non-traumatic joint disorders (1 source) Rotator cuff arthropathy of right shoulder Onset: 04-04-2024 Episodic Other nutritional; endocrine; and metabolic disorders (20 sources) Obesity caused by energy imbalance; Translations: [Morbid (severe) obesity due to excess calories] Onset: 03-05-2024 Resolved: 03-05-2024 03-05-2024 Chronic Other upper respiratory infections (20 sources) Acute pansinusitis; Translations: [Acute pansinusitis, unspecified] Onset: 02-06-2024 Resolved: 05-30-2024 02-06-2024 Episodic Residual codes; unclassified (1 source) [...] NEOPLSM OTH GENIT ORGN] Onset: 02-08-2022 Episodic Superficial injury; contusion (20 sources) Contusion of other part of head, initial encounter; Translations: [Hematoma of scalp] Onset: 02-20-2024 02-27-2024 Episodic Results Test Name Value Interpretation Reference Range Facility XR SHOULDER RT MIN 2 VWSon 0 11-09-2024 XR SHOULDER RT MIN 2 VWS XR SHOULDER RT MIN 2 VWS Comparison April 19 History: S/P reverse total shoulder arthroplasty, right XR SHOULDER RT MIN 2 VWS Impression: 1. Prosthesis shows no radiographic evidence for complication. No acute findings. Finalized by Neal Gutierres MD on 11/09/2024 3:33 PM Normal [facility] HbA1c HPLC (Bld) [Mass fract ion]Ordered By: Bernardino Talavera on 09-04-2024 HbA1c (Bld) [Mass fraction] 5.8 % [facility] No Panel InformationOrdered By: Bernardino Talavera on 09-04-2024 Bedside Glucose 88 [facility] Erythrocyte distribution wid th Auto (RBC) [Ratio]on 06-05-2024 Erythrocyte distribution width (RBC) [Ratio] Erythrocyte distribution width [Ratio] by Automated count 11.0-15.0 [facility] Estimated glomerular filtrat ion rate (GFR) non- Americanon 06-05-2024 GFR/1.73 sq M.predicted among non-blacks MDRD (S/P/Bld) [Vol rate/Area] Estimated glomerular filtration rate (GFR) non- Low >=60 mL/min/1.73m 2 [facility] CBC WITH PLATELET NO DI FFERENTIALon 06-05-2024 Erythrocyte distribution width (RBC) [Ratio] 12.5 % 11.0 - 15.0 % [facility] Hematocrit (Bld) [Volume fraction] 43.6 % 36.0 - 48.0 % [facility] Hemoglobin (Bld) [Mass/Vol] 14.1 g/dL 12.0 - 16.0 g/dL [facility] Interpretation and review of laboratory results Abnormal [facility] MCH (RBC) [Entitic mass] 29.4 pg 26.7 - 34.0 pg [facility] MCHC (RBC) [Mass/Vol] 32.3 g/dL 29.9 - 35.2 g/dL [facility] MCV (RBC) [Entitic vol] 91 fL 81.0 - 99.0 fL [facility] Platelet mean volume (Bld) [Entitic vol] 8.5 fL Low 9.5 - 13.5 fL [facility]H PLT 184 [facility] RBC 4.79 [facility] WBC 6.7 [facility] Hematocrit Auto (Bld) [Volum e fraction]on 06-05-2024 Hematocrit (Bld) [Volume fraction] Hematocrit [Volume Fraction] of Blood by Automated count 36.0-48.0 [facility] Hemoglobin [Mass/volume] in Bloodon 06-05-2024 Hemoglobin (Bld) [Mass/Vol] Hemoglobin [Mass/volume] in Blood 12.0-16.0 [facility] Iron binding capacity [Mass/ volume] in Serum or Plasmaon 06-05-2024 Iron binding capacity [Mass/Vol] Iron binding capacity [Mass/volume] in Serum or Plasma 250.0-450.0 [facility] Iron saturation [Mass Fracti on] in Serum or Plasmaon 06-05-2024 Iron saturation [Mass fraction] Iron saturation [Mass Fraction] in Serum or Plasma [facility] Laboratory - Chemistry and C hemistry - challengeon 06-05-2024 Albumin [Mass/Vol] 4.0 g/dL 3.4-5.0 [facility] Calcium [Mass/Vol] 9.1 mg/dL 8.5-10.1 [facility] Chloride [Moles/Vol] 99 mmol/L 98-107 [facility] CO2 [Moles/Vol] 29.3 mmol/L 21.0-32.0 [facility] Creatinine [Mass/Vol] 1.02 mg/dL 0.55-1.02 [facility] Ferritin [Mass/Vol] 95.0 ng/mL 8.0-252.0 [facility] GFR/1.73 sq M.predicted MDRD (S/P/Bld) [Vol rate/Area] mL/min/{1.73_m2} >=60 mL/min/1.73m 2 [facility] Glucose [Mass/Vol] 98 mg/dL 74-106 [facility] Iron [Mass/Vol] 74.0 ug/dL 50.0-170.0 [facility] Magnesium [Mass/Vol] 1.8 mg/dL 1.8-2.4 [facility] Potassium [Moles/Vol] 3.5 mmol/L 3.5-5.1 [facility] Sodium [Moles/Vol] 137 mmol/L 136-145 [facility] Urate [Mass/Vol] 3.4 mg/dL 2.6-6.0 [facility] Urea nitrogen [Mass/Vol] 20.0 mg/dL High 7.0-18.0 [facility] Urea nitrogen/Creatinine [Mass ratio] 19.6 mg/mg [facility] Laboratory - Urinalysison Protein (U) [Mass/Vol] 12.2 mg/dL High <=11.9 [facility] Leukocytes [#/volume] correc sigifredo for nucleated erythrocytes in Blood by Automated counon 06-05-2024 WBC corrected for nucl RBC Auto (Bld) [#/Vol] Leukocytes [#/volume] corrected for nucleated erythrocytes in Blood by Automated coun 4.0-11.0 [facility] MCH Auto (RBC) [Entitic mass ]on 06-05-2024 MCH (RBC) [Entitic mass] MCH [Entitic mass] by Automated count 26.7-34.0 [facility] MCHC Auto (RBC) [Mass/Vol]on 06-05-2024 MCHC (RBC) [Mass/Vol] MCHC [Mass/volume] by Automated count 29.9-35.2 [facility] MCV Auto (RBC) [Entitic vol] on 06-05-2024 MCV (RBC) [Entitic vol] MCV [Entitic volume] by Automated count 81.0-99.0 [facility] No Panel Informationon 06-05 25-Hydroxy Vitamin D Total 40.5 ng/mL [facility] Comment on above: <20 ng/mL Vit D defi cient20-<30 ng/mL Vit D [id number] ng/mL Vit D sufficient>100 ng/mL Potential Toxicity Parathyroid Hormone (Intact) 49 pg/mL 15-65 [facility] Comment on above: Performed at: [address] [id number] Director: Remy Sanchez PhD, Phone: [phone] Phosphorus Level 4.2 mg/dL 2.6-4.7 [facility] Urine Random Creatinine 35.59 mg/dL 20.00-300.00 [facility] Platelet mean volume Auto (B ld) [Entitic vol]on 06-05-2024 Platelet mean volume (Bld) [Entitic vol] Platelet mean volume [Entitic volume] in Blood by Automated count Low 9.5-13.5 [facility] Platelets Auto (Bld) [#/Vol] on 06-05-2024 Platelets (Bld) [#/Vol] Platelets [#/volume] in Blood by Automated count 150-450 [facility] RBC Auto (Bld) [#/Vol]on RBC (Bld) [#/Vol] Erythrocytes [#/volume] in Blood by Automated count 4.20-5.40 [facility] Serum or plasma anion gap de terminationon 06-05-2024 Anion gap [Moles/Vol] Serum or plasma an ion gap determination [facility] Urine protein/creatinine rat ioon 06-05-2024 Protein/Creatinine (U) [Ratio] Urine protein/creatinine ratio [facility] Glucose Glucometer (BldC) [M ass/Vol]on 04-04-2024 Glucose [Mass/Vol] 195 mg/dL High 65-99 [facility] Glucose [Mass/Vol] 134 mg/dL High 65-99 [facility] APTTon 03-21-2024 aPTT Coag (PPP) [Time] 39 s High [facility] BASIC METABOLIC PANLon 03-21 Anion gap [Moles/Vol] 10 mmol/L Normal 5-15 [facility] Comment on above: Performed By: #### C BC, PINR, [id number], BMP, LIVR #### [facility] ([id number]) [address] [place] [address] Calcium [Mass/Vol] 8.9 mg/dL Normal 8.5-10.5 [facility] Comment on above: Performed By: #### C BC, PINR, 52230-5, BMP, LIVR #### [facility] ([id number]) [address] [place] [address] Chloride [Moles/Vol] 101 mmol/L Normal 98-109 [facility] Comment on above: Performed By: #### C BC, PINR, 18380-5, BMP, LIVR #### [facility] ([id number]) [address] [place] [address] CO2 [Moles/Vol] 25 mmol/L Normal 22-32 [facility] Comment on above: Performed By: #### C BC, PINR, 61762-5, BMP, LIVR #### [facility] ([id number]) [address] [facility] [place] [address] Creatinine [Mass/Vol] 0.92 mg/dL Normal 0.40-1.00 [facility] Comment on above: Result Comment: METH OD TRACEABLE TO IDMS STANDARD Performed By: #### C BC, PINR, 78604-2, BMP, LIVR #### [facility] ([id number]) [address] [facility] [place] [address] GFR/1.73 sq M.predicted among non-blacks MDRD (S/P/Bld) [Vol rate/Area] 64 mL/min/{1.73_m2} Normal >59 [facility] Comment on above: Result Comment: Reported eGFR is based on the CKD-EPI 2020 equation that does not use a race coefficient. Performed By: #### C BC, PINR, 89512-9, BMP, LIVR #### [facility] ([id number]) [address] [place] [address] Glucose [Mass/Vol] 148 mg/dL High 65-99 [facility] Comment on above: Performed By: #### C BC, PINR, 61306-2, BMP, LIVR #### [facility] ([id number]) [address] [place] [address] Potassium [Moles/Vol] 4.0 mmol/L Normal 3.5-5.0 [facility] Comment on above: Performed By: #### C BC, PINR, 34352-7, BMP, LIVR #### [facility] ([id number]) [address] [facility] [place] [address] Sodium [Moles/Vol] 136 mmol/L Normal 134-146 [facility] Comment on above: Performed By: #### C BC, PINR, 62917-2, BMP, LIVR #### [facility] ([id number]) [address] [facility] [place] [address] Urea nitrogen [Mass/Vol] 30 mg/dL High 5-27 [facility] Comment on above: Performed By: #### C BC, PINR, 47266-6, BMP, LIVR #### [facility] ([id number]) [address] [place] [address] Basic Metabolic Panelon 03-01 Anion gap [Moles/Vol] 10 mmol/L 5 - 15 mmol/L [facility] Calcium [Mass/Vol] 8.9 mg/dL 8.5 - 10. 5 mg/dL [facility] Chloride [Moles/Vol] 101 mmol/L 98 - 10 9 mmol/L [facility] CO2 [Moles/Vol] 25 mmol/L 22 - 32 mmol/L [facility] Creatinine [Mass/Vol] 0.92 mg/dL 0.40 - 1.00 mg/dL [facility] Comment on above: METHOD TRACEABLE TO IDIL STANDARD eGFR (CKD-EPI)non-race dependent 64 - PINF [facility] Comment on above: Reported eGFR is based on the CKD-EPI 2020 equation that does not use a race coefficient. Glucose [Mass/Vol] 148 mg/dL High 65 - 99 mg/dL [facility] Interpretation and review of laboratory results Abnormal [facility] Potassium [Moles/Vol] 4 mmol/L 3.5 - 5.0 mmol/L [facility] Sodium [Moles/Vol] 136 mmol/L 134 - 146 mmol/L [facility] Urea nitrogen [Mass/Vol] 30 mg/dL High 5 - 27 mg/dL [facility] CBC without diffon Erythrocyte distribution width (RBC) [Ratio] 14 % 11.5 - 15.0 % [facility] Hematocrit (Bld) [Volume fraction] 40.3 % 35 - 47 % [facility] Hemoglobin (Bld) [Mass/Vol] 14.2 g/dL 11.7 - 15.5 g/dL [facility] Interpretation and review of laboratory results Abnormal [facility] MCH (RBC) [Entitic mass] 31.7 pg 27 - 34 pg [facility] MCHC (RBC) [Mass/Vol] 35.2 g/dL 32 - 36 g/dL P [facility] MCV (RBC) [Entitic vol] 90 fL 80 - 100 fL [facility] Platelet mean volume (Bld) [Entitic vol] 6.4 fL Low 7 - 12 fL [facility] Platelets (Bld) [#/Vol] 209 10*3/uL [facility] RBC (Bld) [#/Vol] 4.48 10*6/uL [facility] WBC corrected for nucl RBC Auto (Bld) [#/Vol] 7.2 [facility] COMPLETE BLOOD COUNTon 03-21 Erythrocyte distribution width (RBC) [Ratio] 14.0 % Normal 11.5-15.0 [facility] Comment on above: Performed By: #### C LINDEN, PINR, 93274-0, BMP, LIVR #### [facility] ([id number]) [address] [facility] [place] [address] Hematocrit (Bld) [Volume fraction] 40.3 % Normal 35-47 [facility] Comment on above: Performed By: #### C BC, PINR, 92543-4, BMP, LIVR #### [facility] ([id number]) [address] [place] [address] Hemoglobin (Bld) [Mass/Vol] 14.2 g/dL Normal 11.7-15.5 [facility] Comment on above: Performed By: #### C BC, PINR, 92822-9, BMP, LIVR #### [facility] ([id number]) [address] [place] [address] MCH (RBC) [Entitic mass] 31.7 pg Normal 27-34 [facility] Comment on above: Performed By: #### C BC, PINR, 27146-1, BMP, LIVR #### [facility] ([id number]) [address] [address] MCHC (RBC) [Mass/Vol] 35.2 g/dL Normal 32-36 [facility] Comment on above: Performed By: #### C BC, PINR, 58702-4, BMP, LIVR #### [facility] ([id number]) [address] [place] [address] MCV (RBC) [Entitic vol] 90 fL Normal 80-100 [facility] Comment on above: Performed By: #### C BC, PINR, 17352-3, BMP, LIVR #### [facility] ([id number]) [address] [place] [address] Platelet mean volume (Bld) [Entitic vol] 6.4 fL Low 7-12 [facility] Comment on above: Performed By: #### C BC, PINR, 90600-6, BMP, LIVR #### [facility] ([id number]) [address] [place] [address] Platelets (Bld) [#/Vol] 209 10*3/uL Normal 150-450 [facility] Comment on above: Performed By: #### C BC, PINR, 41462-0, BMP, LIVR #### [facility] ([id number]) [address] [place] [address] RBC COUNT 4.48 X10E12/L Normal 3.80-5.20 [facility] Comment on above: Performed By: #### C BC, PINR, 94521-1, BMP, LIVR #### [facility] ([id number]) [address] [place] [address] WBC (Bld) [#/Vol] 7.2 10*3/uL Normal 4.0-11.0 [facility] Comment on above: Performed By: #### C BC, PINR, 41838-3, BMP, LIVR #### [facility] ([id number]) [address] [facility] [place] [address] LIVER PANELon 03-21-2024 Albumin [Mass/Vol] 4.4 g/dL Normal 3.2-5.3 [facility] Comment on above: Performed By: #### C BC, PINR, 33137-7, BMP, LIVR #### [facility] ([id number]) [address] [place] [address] ALP [Catalytic activity/Vol] 87 U/L Normal 39-130 [facility] Comment on above: Performed By: #### C BC, PINR, 16958-1, BMP, LIVR #### [facility] ([id number]) [address] [facility] [place] [address] ALT [Catalytic activity/Vol] 16 U/L Normal 0-31 [facility] Comment on above: Performed By: #### C BC, PINR, 02120-6, BMP, LIVR #### [facility] ([id number]) [address] [facility] [place] [address] AST [Catalytic activity/Vol] 26 U/L Normal 0-41 [facility] Comment on above: Performed By: #### C BC, PINR, 43064-6, BMP, LIVR #### [facility] ([id number]) [address] [facility] [place] [address] Bilirubin [Mass/Vol] 0.4 mg/dL Normal 0.3-1.2 [facility] Comment on above: Performed By: #### C BC, PINR, 01552-5, BMP, LIVR #### [facility] ([id number]) [address] [facility] [place] [address] Bilirubin.indirect [Mass/Vol] mg/dL Normal 0.0-0.4 [facility] Comment on above: Performed By: #### C BC, PINR, 05283-1, BMP, LIVR #### [facility] ([id number]) [address] [place] [address] Protein [Mass/Vol] 6.7 g/dL Normal 6.0-8.0 [facility] Comment on above: Result Comment: SHANIA BRITTANI REMOVED BY HIGH SPEED CENTRIFUGATION Performed By: #### C NORA CHEATHAM, 78244-2, DEANNA, LIVR #### [facility] ([id number]) [address] [facility] [place] [address] Liver panelon 03-21-2024 Albumin [Mass/Vol] 4.4 g/dL 3.2 - 5.3 g/dL [facility] ALP [Catalytic activity/Vol] 87 U/L 39 - 130 U/L [facility] ALT No additional P-5'-P [Catalytic activity/Vol] 16 U/L 0 - 31 U/L [facility] AST [Catalytic activity/Vol] 26 U/L 0 - 41 U/L [facility] Bilirubin [Mass/Vol] 0.4 mg/dL 0.3 - 1 .2 mg/dL [facility] Bilirubin.direct [Mass/Vol] mg/dL 0.0 - 0.4 mg/dL [facility] Protein [Mass/Vol] 6.7 g/dL 6.0 - 8.0 g/dL [facility] Comment on above: LIPEMIA REMOVED BY H IGH SPEED CENTRIFUGATION [facility] No Panel Informationon 03-21 [facility] PROTIME AND INRon 03-21-2024 INR Coag (PPP) [Relative time] 1.0 {INR} Normal 0.8-1.1 [facility] Comment on above: Performed By: #### C NORA CHEATHAM, 56787-1, DEANNA, LIVR #### [facility] ([id number]) [address] [place] [address] PT Coag (PPP) [Time] 11.7 s Normal 9.8-13.2 [facility] Comment on above: Performed By: #### C NORA CHEATHAM, 46308-3, BMP, LIVR #### [facility] ([id number]) [address] [place] [address] Protime & INRon 03-21-2024 INR Coag (PPP) [Relative time] 1 {INR} [facility] PT Coag (PPP) [Time] 11.7 s [facility] aPTT Coag (PPP) [Time]on Interpretation and review of laboratory results Abnormal [facility] aPTT Coag (Bld) [Time] 39 s High 26-37 [facility] Comment on above: Performed By: #### C BC, PINR, 48430-0, BMP, LIVR #### [facility] ([id number]) [address] [facility] [place] [address] CT BRAIN WO CONTon CT BRAIN WO [...] Geiger MD on 02/20/2024 9:09 PM Normal [facility] CT CERVICAL SPINE WO CONTon 02-20-2024 [...] Carlos Candelario MD on 02/20/2024 9:09 PM Normal [facility] Cholesterol [Mass/volume] in Serum or PlasmaOrdered By: Bernardino Talavera on 02-10-2024 Cholesterol [Mass/Vol] Cholesterol [Mass/volume] in Serum or Plasma 140-200 [facility] Comment on above: Chol less than 200 m g/dl low riskChol 201-239 mg/dl borderline riskChol 240 mg/dl and greater high risk Cholesterol in HDL [Mass/vol ume] in Serum or PlasmaOrdered By: Bernardino Talavera on 02-10-2024 Cholesterol in HDL [Mass/Vol] Serum or plasma high density lipoprotein (HDL) cholesterol measurement [facility] Comment on above: HDL CHOL ATP-III CLA SSIFICATION Cardiovascular RiskHDL > or equal to 60 mg/dL LOWHDL < 40 mg/dL HIGH Cholesterol in LDL Calc [Mas s/Vol]Ordered By: Bernardino Talavera on 02-10-2024 Cholesterol in LDL [Mass/Vol] Cholesterol in LDL [Mass/volume] in Serum or Plasma by calculation 0-100 [facility] Comment on above: LDL ATP III CLASSIFI CATIONLDL less than 100 mg/dL OptimalLDL 100-129 mg/dL Near or above optimalLDL 130-159 mg/dL Borderline highLDL 160-189 mg/dL HighLDL greater than 189 mg/dL Very high Cholesterol in VLDL Calc [Ma ss/Vol]Ordered By: Bernardino Talavera on 02-10-2024 Cholesterol in VLDL [Mass/Vol] Cholesterol in VLDL [Mass/volume] in Serum or Plasma by calculation [facility] Lipid Panelon 02-10-2024 Cholesterol [Mass/Vol] 144 mg/dL Normal 140-200 [facility] Comment on above: Result Comment: Chol less than 200 mg/dl low risk Chol 201-239 mg/dl borderline risk Chol 240 mg/dl and greater high risk Performed By: #### L IPID #### [address] Cholesterol in HDL [Mass/Vol] 54 mg/dL Normal [facility] Comment on above: Result Comment: HDL CHOL ATP-III CLASSIFICATION Cardiovascular Risk HDL > or equal to 60 mg/dL LOW HDL < 40 mg/dL HIGH Performed By: #### L IPID #### [facility] [address] Cholesterol.total/Cho lesterol in HDL [Mass ratio] 2.7 {ratio} Normal <5.0 [facility] Comment on above: Result Comment: PERF ORMED BY: [place] [address] PATHOLOGIST ARTIST SUSPECT NAGA MURILLO M.D. Performed By: #### L IPID #### [address] LDL Cholesterol,Calculate d 54 mg/dL Normal 0-100 [facility] Comment on above: Result Comment: LDL ATP III CLASSIFICATION LDL less than 100 mg/dL Optimal LDL 100-129 mg/dL Near or above optimal LDL 130-159 mg/dL Borderline high LDL 160-189 mg/dL High LDL greater than 189 mg/dL Very high Performed By: #### L IPID #### [address] Triglyceride w/Reflex 182 mg/dL High 0-149 [facility] Comment on above: Result Comment: TRIG ATP III CLASSIFICATION TRIG less than 150 mg/dL Normal TRIG 150-199 mg/dL Borderline high TRIG 200-500 mg/dL High TRIG greater than 500 mg/dL Very high Standard traceable to the Center for Disease Conrtrol and Prevention (CDC) test method. Performed By: #### L IPID #### [facility] [address] [place] [address] VLDL CHOLESTEROL 36 mg/dL Normal [facility] Comment on above: Performed By: #### L IPID #### [address] Serum or plasma total choles terol/high density lipoprotein (HDL) cholesterol mass ratOrdered By: Bernardino Talavera on 02-10-2024 Cholesterol.total/Cho lesterol in HDL [Mass ratio] Serum or plasma total cholesterol/high density lipoprotein (HDL) cholesterol mass rat <5.0 [facility] Triglyceride [Mass/volume] i n Serum or PlasmaOrdered By: Bernardino Talavera on 02-10-2024 Triglyceride [Mass/Vol] Triglyceride [Mass/volume] in Serum or Plasma High 0-149 [facility] Comment on above: TRIG ATP III CLASSIF ICATIONTRIG less than 150 mg/dL NormalTRIG 150-199 mg/dL Borderline highTRIG 200-500 mg/dL High TRIG greater than 500 mg/dL Very highStandard traceable to the Center for Disease Conrtrol and Prevention (CDC) test method. Erythrocyte distribution wid th Auto (RBC) [Ratio]on 12-06-2023 Erythrocyte distribution width (RBC) [Ratio] 12.4 % 11.0-15.0 [facility] Estimated glomerular filtrat ion rate (GFR) non- Americanon 12-06-2023 GFR/1.73 sq M.predicted among non-blacks MDRD (S/P/Bld) [Vol rate/Area] 47 mL/min/{1.73_m2} Low >=60 mL/min/1.73m 2 [facility] CBC WITH PLATELET NO DI FFERENTIALon 12-06-2023 Erythrocyte distribution width (RBC) [Ratio] 12.4 % 11.0 - 15.0 % [facility] Hematocrit (Bld) [Volume fraction] 40.9 % 36.0 - 48.0 % [facility] Hemoglobin (Bld) [Mass/Vol] 13.2 g/dL 12.0 - 16.0 g/dL [facility] Interpretation and review of laboratory results Abnormal [facility] MCH (RBC) [Entitic mass] 29.9 pg 26.7 - 34.0 pg [facility] MCHC (RBC) [Mass/Vol] 32.3 g/dL 29.9 - 35.2 g/dL [facility] MCV (RBC) [Entitic vol] 92.7 fL 81.0 - 99.0 fL [facility] Platelet mean volume (Bld) [Entitic vol] 8.9 fL Low 9.5 - 13.5 fL [facility] PLT 162 [facility] RBC 4.41 [facility] WBC 5.1 [facility] Hematocrit Auto (Bld) [Volum e fraction]on 12-06-2023 Hematocrit (Bld) [Volume fraction] 40.9 % 36.0-48.0 [facility] Hemoglobin [Mass/volume] in Bloodon 12-06-2023 Hemoglobin (Bld) [Mass/Vol] 13.2 g/dL 12.0-16.0 [facility] Iron binding capacity [Mass/ volume] in Serum or Plasmaon 12-06-2023 Iron binding capacity [Mass/Vol] 259.0 ug/dL 250.0-450.0 [facility] Iron saturation [Mass Fracti on] in Serum or Plasmaon 12-06-2023 Iron saturation [Mass fraction] 15.1 % [facility] Laboratory - Chemistry and C hemistry - challengeon 12-06-2023 Albumin [Mass/Vol] 3.6 g/dL 3.4-5.0 [facility] Calcium [Mass/Vol] 9.0 mg/dL 8.5-10.1 [facility] Chloride [Moles/Vol] 101 mmol/L 98-107 [facility] CO2 [Moles/Vol] 27.0 mmol/L 21.0-32.0 [facility] Creatinine [Mass/Vol] 1.13 mg/dL High 0.55-1.02 [facility] Ferritin [Mass/Vol] 131.0 ng/mL 8.0-252.0 [facility] GFR/1.73 sq M.predicted MDRD (S/P/Bld) [Vol rate/Area] 57 mL/min/{1.73_m2} Low >=60 mL/min/1.73m 2 [facility] Glucose [Mass/Vol] 99 mg/dL 74-106 [facility] Iron [Mass/Vol] 39.0 ug/dL Low 50.0-170.0 [facility] Magnesium [Mass/Vol] 1.9 mg/dL 1.8-2.4 [facility] Potassium [Moles/Vol] 4.0 mmol/L 3.5-5.1 [facility] Sodium [Moles/Vol] 137 mmol/L 136-145 [facility] Urate [Mass/Vol] 4.2 mg/dL 2.6-6.0 [facility] Urea nitrogen [Mass/Vol] 24.0 mg/dL High 7.0-18.0 [facility] Urea nitrogen/Creatinine [Mass ratio] 21.2 mg/mg [facility] Bilirubin Ql (U) Negative NEGATIVE [facility] Glucose (U) [Mass/Vol] 250 mg/dL Abnormal NEGATIVE [facility] Ketones Ql (U) Negative NEGATIVE [facility] pH (U) 6.0 [pH] 5.0-9.0 [facility] Specific gravity (U) [Rel density] 1.010 1.005-1.025 [facility] Urobilinogen Qn (U) 0.2 {Wil'U}/dL 0.2-1.0 [facility] - Specimen inform ationon 12-06-2023 Appearance (U) CLEAR CLEAR [facility] Color (U) LT. YELLOW YELLOW [facility] - Urinalysison Leukocyte esterase Test strip Ql (U) Negative NEGATIVE [facility] Mucus Ql (Urine sed) NONE SEEN NONE SEEN [facility] Nitrite Ql (U) Negative NEGATIVE [facility] Protein (U) [Mass/Vol] 6.0 mg/dL <=11.9 [facility] Protein Ql (U) Negative NEG/TRACE [facility] Leukocytes [#/volume] correc sigifredo for nucleated erythrocytes in Blood by Automated counon 12-06-2023 WBC corrected for nucl RBC Auto (Bld) [#/Vol] 5.1 10 3/uL 4.0-11.0 [facility] MCH Auto (RBC) [Entitic mass ]on 12-06-2023 MCH (RBC) [Entitic mass] 29.9 pg 26.7-34.0 [facility] MCHC Auto (RBC) [Mass/Vol]on 12-06-2023 MCHC (RBC) [Mass/Vol] 32.3 g/dL 29.9-35.2 [facility] MCV Auto (RBC) [Entitic vol] on 12-06-2023 MCV (RBC) [Entitic vol] 92.7 fL 81.0-99.0 [facility] No Panel Informationon 12-05 25-Hydroxy Vitamin D Total 48.2 ng/mL [facility] Comment on above: <20 ng/mL Vit D defi cient20-<30 ng/mL Vit D vexudteucjkh20-013 ng/mL Vit D sufficient>100 ng/mL Potential Toxicity Parathyroid Hormone (Intact) 38 pg/mL 15-65 [facility] Comment on above: Performed at: - [address] [id number] Director: Remy Sanchez PhD, Phone: [phone] Phosphorus Level 4.6 mg/dL 2.6-4.7 [facility] Urine Bacteria NONE SEEN #/HPF NONE SEEN [facility] Urine Occult Blood Negative NEGATIVE [facility] Urine Other Casts NONE SEEN #/LPF NONE SEEN [facility] Urine Other Crystals None Seen #/HPF None Seen [facility] Urine Random Creatinine 48.03 mg/dL 20.00-300.00 [facility] Urine RBC 0-2 #/HPF 0-2 [facility] Urine Squamous Epithelial Cells RARE #/LPF NONE/RARE [facility] Urine WBC 0-2 #/HPF Abnormal NONE SEEN [facility] Platelet mean volume Auto (B ld) [Entitic vol]on 12-06-2023 Platelet mean volume (Bld) [Entitic vol] 8.9 fL Low 9.5-13.5 [facility] Platelets Auto (Bld) [#/Vol] on 12-06-2023 Platelets (Bld) [#/Vol] 162 10 3/uL 150-450 [facility] RBC Auto (Bld) [#/Vol]on RBC (Bld) [#/Vol] 4.41 10 6/uL 4.20-5.40 [facility] Serum or plasma anion gap de terminationon 12-06-2023 Anion gap [Moles/Vol] 13.0 mmol/L [facility] Urine protein/creatinine rat ioon 12-06-2023 Protein/Creatinine (U) [Ratio] 0.12 [facility] HbA1c HPLC (Bld) [Mass fract ion]on 10-04-2023 HbA1c (Bld) [Mass fraction] 5.5 % [facility] No Panel Informationon 10-03 Bedside Glucose 106 [facility] BASIC METABOLIC PANLon 09-26 Anion gap [Moles/Vol] 11 mmol/L Normal 5-15 [facility] Comment on above: Performed By: #### P INR, BMP #### [facility] ([id number]) [address], [address] [place] [address] Calcium [Mass/Vol] 8.9 mg/dL Normal 8.5-10.5 [facility] Comment on above: Performed By: #### P INR, BMP #### [facility] ([id number]) [address], [address] [place] [address] Chloride [Moles/Vol] 103 mmol/L Normal 98-109 [facility] Comment on above: Performed By: #### P INR, BMP #### [facility] ([id number]) [address], [address] [place] [address] CO2 [Moles/Vol] 26 mmol/L Normal 22-32 [facility] Comment on above: Performed By: #### P INR, BMP #### [facility] ([id number]) [address], [address] [place] [address] Creatinine [Mass/Vol] 1.04 mg/dL High 0.40-1.00 [facility] Comment on above: Result Comment: METH OD TRACEABLE TO IDMS STANDARD Performed By: #### P INR, BMP #### [facility] ([id number]) [address] [address] [place] [address] GFR/1.73 sq M.predicted among non-blacks MDRD (S/P/Bld) [Vol rate/Area] 56 mL/min/{1.73_m2} Low >59 [facility] Comment on above: Result Comment: Reported eGFR is based on the CKD-EPI 2020 equation that does not use a race coefficient. Performed By: #### P INR, BMP #### [facility] ([id number]) [address], [address] [place] [address] Glucose [Mass/Vol] 120 mg/dL High 65-99 [facility] Comment on above: Performed By: #### P INR, BMP #### [facility] ([id number]) [address], [address] [place] [address] Potassium [Moles/Vol] 4.0 mmol/L Normal 3.5-5.0 [facility] Comment on above: Performed By: #### P INR, BMP #### [facility] ([id number]) [address], [address] [place] [address] Sodium [Moles/Vol] 140 mmol/L Normal 134-146 [facility] Comment on above: Performed By: #### P INR, BMP #### [facility] ([id number]) [address], [address] [place] [address] Urea nitrogen [Mass/Vol] 23 mg/dL Normal 5-27 [facility] Comment on above: Performed By: #### P INR, BMP #### [facility] ([id number]) [address], [address] [place] [address] PROTIME AND INRon 09-27-2023 INR Coag (PPP) [Relative time] 1.0 {INR} Normal 0.8-1.1 [facility] Comment on above: Performed By: #### P INR, BMP #### [facility] ([id number]) [address] [address] [place] [address] PT Coag (PPP) [Time] 11.8 s Normal 9.8-13.2 [facility] Comment on above: Performed By: #### P INR, BMP #### [facility] ([id number]) [address], [address] [place] [address] Automated epithelial cells c ount in urine sediment (number/area)on 06-07-2023 Epithelial cells Auto (Urine sed) [#/Area] RARE #/LPF NONE/RARE [facility] Automated leukocytes count i n urine sediment (number/area)on 06-07-2023 WBC Auto (Urine sed) [#/Area] NONE SEEN #/HPF 0-2 [facility] Automated urine specific gra vity by refractometryon 06-07-2023 Specific gravity Refractometry automated (U) [Rel density] 1.020 1.005-1.025 [facility] Bilirubin Auto test strip (U ) [Mass/Vol]on 06-07-2023 Bilirubin (U) [Mass/Vol] Negative NEGATIVE [facility] Casts typing in urine sedime nt by light microscopyon 06-07-2023 Casts LM Nom (Urine sed) NONE SEEN #/LPF NONE SEEN [facility] Color Auto (U)on 06-07-2023 Color (U) LT. YELLOW YELLOW [facility] Erythrocyte distribution wid th Auto (RBC) [Ratio]on 06-07-2023 Erythrocyte distribution width (RBC) [Ratio] 12.8 % 11.0-15.0 [facility] Estimated glomerular filtrat ion rate (GFR) non- Americanon 06-07-2023 GFR/1.73 sq M.predicted among non-blacks MDRD (S/P/Bld) [Vol rate/Area] 50 mL/min/{1.73_m2} >=60 [facility] Hematocrit Auto (Bld) [Volum e fraction]on 06-07-2023 Hematocrit (Bld) [Volume fraction] 40.7 % 36.0-48.0 [facility] Hemoglobin [Mass/volume] in Bloodon 06-07-2023 Hemoglobin (Bld) [Mass/Vol] 13.0 g/dL 12.0-16.0 [facility] Ketones Auto test strip (U) [Mass/Vol]on 06-07-2023 Ketones (U) [Mass/Vol] Negative NEGATIVE [facility] - Chemistry and C hemistry - challengeon 06-07-2023 Albumin [Mass/Vol] 3.5 g/dL 3.4-5.0 [facility] Calcium [Mass/Vol] 8.9 mg/dL 8.5-10.1 [facility] Chloride [Moles/Vol] 103 mmol/L 98-107 [facility] CO2 [Moles/Vol] 27.6 mmol/L 21.0-32.0 [facility] Creatinine [Mass/Vol] 1.07 mg/dL 0.55-1.02 [facility] GFR/1.73 sq M.predicted MDRD (S/P/Bld) [Vol rate/Area] mL/min/{1.73_m2} >=60 [facility] Glucose [Mass/Vol] 96 mg/dL 74-106 [facility] Magnesium [Mass/Vol] 2.0 mg/dL 1.8-2.4 [facility] Potassium [Moles/Vol] 3.9 mmol/L 3.5-5.1 [facility] Sodium [Moles/Vol] 140 mmol/L 136-145 [facility] Urate [Mass/Vol] 3.9 mg/dL 2.6-6.0 [facility] Urea nitrogen [Mass/Vol] 24.0 mg/dL 7.0-18.0 [facility] Urea nitrogen/Creatinine [Mass ratio] 22.4 mg/mg [facility] Leukocytes [#/volume] correc sigifredo for nucleated erythrocytes in Blood by Automated counon 06-07-2023 WBC corrected for nucl RBC Auto (Bld) [#/Vol] 5.7 10 3/uL 4.0-11.0 [facility] MCH Auto (RBC) [Entitic mass ]on 06-07-2023 MCH (RBC) [Entitic mass] 30.0 pg 26.7-34.0 [facility] MCHC Auto (RBC) [Mass/Vol]on 06-07-2023 MCHC (RBC) [Mass/Vol] 31.9 g/dL 29.9-35.2 [facility] MCV Auto (RBC) [Entitic vol] on 06-07-2023 MCV (RBC) [Entitic vol] 94.0 fL 81.0-99.0 [facility] Mucus LM Ql (Urine sed)on Mucus Ql (Urine sed) NONE SEEN NONE SEEN [facility] No Panel Informationon 06-06 25-Hydroxy Vitamin D Total 42.6 ng/mL [facility] Comment on above: <20 ng/mL Vit D defi cient20-<30 ng/mL Vit D ueyefholipaq63-575 ng/mL Vit D sufficient>100 ng/mL Potential Toxicity Miscellaneous Test COMMENT . [facility] Comment on above: Test Ordered: [id number] Prot+CreatU (Random)Creatinine, Urine 58.5 mg/dL CB Reference Range: Not Estab.Protein,Total,Urine 7.2 mg/dL CB Reference Range: Not Estab.Protein/Creat Ratio 123 CB Units of Measure: mg/g creat Reference Range: 0-200Performed at: CB - [facility] [address] [id number] Director: Remy Sanchez PhD, Phone: [phone] Parathyroid Hormone (Intact) 99 pg/mL 15 [facility] Comment on above: Performed at: CB - [facility] [address] [id number] Director: Remy Sanchez PhD, Phone: [phone] Phosphorus Level 3.8 mg/dL 2.6-4.7 [facility] Platelet mean volume Auto (B ld) [Entitic vol]on 06-07-2023 Platelet mean volume (Bld) [Entitic vol] 8.7 fL 9.5-13.5 [facility] Platelets Auto (Bld) [#/Vol] on 06-07-2023 Platelets (Bld) [#/Vol] 167 10 3/uL 150-450 [facility] Protein Auto test strip (U) [Mass/Vol]on 06-07-2023 Protein (U) [Mass/Vol] Negative NEG/TRACE [facility] RBC Auto (Bld) [#/Vol]on RBC (Bld) [#/Vol] 4.33 10 6/uL 4.20-5.40 [facility] Serum or plasma anion gap de terminationon 06-07-2023 Anion gap [Moles/Vol] 13.3 mmol/L [facility] Specific gravity Auto test s trip (U) [Rel density]on 06-07-2023 Specific gravity (U) [Rel density] CLEAR CLEAR [facility] Urine bacteria detection by automated methodon 06-07-2023 Bacteria Auto Ql (U) TRACE #/HPF NONE SEEN [facility] Urine glucose measurement by test strip (mass/volume)on 06-07-2023 Glucose Test strip (U) [Mass/Vol] 250 mg/dL NEGATIVE [facility] Urine hemoglobin detection b y automated test stripon 06-07-2023 Hemoglobin Auto test strip Ql (U) Negative NEGATIVE [facility] Urine nitrite detection by a utomated test stripon 06-07-2023 Nitrite Auto test strip Ql (U) TRACE NEGATIVE [facility] Nitrite Auto test strip Ql (U) Negative NEGATIVE [facility] Urine sediment crystal ident ification by light microscopyon 06-07-2023 Crystals LM Nom (Urine sed) None Seen #/HPF None Seen [facility] Urine sediment leukocyte cou nt by microscopy (number/high power field)on 06-07-2023 WBC LM.HPF (Urine sed) [#/Area] 0-2 #/HPF NONE SEEN [facility] Urobilinogen Auto test strip (U) [Mass/Vol]on 06-07-2023 Urobilinogen Qn (U) 0.2 {Wil'U}/dL 0.2-1.0 [facility] pH Auto test strip (U)on pH (U) 6.0 [pH] 5.0-9.0 [facility] Lipid 1996 panelon 4 Cholesterol [Mass/Vol] 144 mg/dL Low 150-200 [facility] Comment on above: Performed By: #### 2 4331-1 #### [facility] ([id number]) [address], [address] [place] [address] Cholesterol in HDL [Mass/Vol] 49 mg/dL Normal >39 [facility] Comment on above: Result Comment: HDL <40 mg/dL - High Risk HDL > or = 40mg/dL- Desirable HDL >60 mg/dL - Negative Risk Performed By: #### 2 4331-1 #### [facility] ([id number]) [address] [address] [place] [address] Cholesterol in LDL [Mass/Vol] 49 mg/dL Normal <130 [facility] Comment on above: Result Comment: LDL <100 mg/dL - Desirable LDL >160 mg/dL - High Risk Performed By: #### 2 4331-1 #### [facility] ([id number]) [address] [facility] [address] [place] [address] Cholesterol in VLDL [Mass/Vol] 46 mg/dL High 0-30 [facility] Comment on above: Performed By: #### 2 4331-1 #### [facility] ([id number]) [address] [address] [place] [address] CHOLESTEROL:HDL 2.9 Normal 1.0-5.0 [facility] Comment on above: Performed By: #### 2 4331-1 #### [facility] ([id number]) [address] [address] [place] [address] Triglyceride [Mass/Vol] 228 mg/dL High 27-150 [facility] Comment on above: Performed By: #### 2 4331-1 #### [facility] ([id number]) [address] [address] [place] [address] A1C HEMOGLOBINon 09-29-2022 HbA1c (Bld) [Mass fraction] 6.2 % [facility] [facility] Other Glucose - FINGER STICKon Glucose [Mass/Vol] 113 mg/dL [employer] Other HbA1c (Bld) [Mass fraction]o n 09-29-2022 A1C HEMOGLOBIN [employer] [facility] [employer] Other PTH INTACTon 06-03-2022 PTH, Intact 38 pg/mL Normal 15-65 [facility] Comment on above: Performed By: #### P THINT #### [facility] [address] [place] [address] Dr. Rizwan Fernando HEMOGRAM AND PLATELon 2022 Hematocrit (Bld) [Volume fraction] 39.5 % Normal 36.0-48.0 [facility] Comment on above: Performed By: #### H H #### [facility] [address] [place] [address] Dr. Rizwan Fernando Hemoglobin (Bld) [Mass/Vol] 12.8 g/dL Normal 12.0-16.0 [facility] Comment on above: Performed By: #### H H #### [facility] [address] [place] [address] Dr. Rizwan Fernando MCH (RBC) [Entitic mass] 28.9 pg Normal 26.7-34.0 [facility] Comment on above: Performed By: #### H H #### [facility] [address] [place] [address] Dr. Rizwan Fernando MCHC (RBC) [Mass/Vol] 32.4 g/dL Normal 29.9-35.2 [facility] Comment on above: Performed By: #### H H #### [facility] [address] [place] [address] Dr. Rizwan Fernando MCV (RBC) [Entitic vol] 89.2 fL Normal 81.0-99.0 [facility] Comment on above: Performed By: #### H H #### [facility] [address] [place] [address] Dr. Rizwan Fernando PLT 202 103/ul Normal 150-450 [facility] Comment on above: Performed By: #### H H #### [facility] [address] [place] [address] Dr. Rizwan Fernando RBC 4.43 106/ul Normal 4.20-5.40 [facility] Comment on above: Performed By: #### H H #### [facility] [address] [address] [address] Rizwan Fernando WBC 6.2 103/ul Normal 4.0-11.0 [facility] Comment on above: Performed By: #### H H #### [facility] [address] [address] [address] Rizwan Fernando IRON AND TIBCon 06-02-2022 % SATURATION 23.2 % Normal [facility] Comment on above: Performed By: #### R ENAL, MG, URIC #### [facility] [address] [address] [address] Rizwan Fernando Iron [Mass/Vol] 64.0 ug/dL Normal 50.0-170.0 [facility] Comment on above: Performed By: #### R ENAL, MG, URIC #### [facility] [address] [place] [address] Dr. Rizwan Fernando TIBC DIRECT 276.0 ug/dL Normal 250.0-450.0 [facility] Comment on above: Performed By: #### R ENAL, MG, URIC #### [facility] [address] [place] [address] Dr. Rizwan Fernando MAGNESIUMon 06-02-2022 Magnesium [Mass/Vol] 1.9 mg/dL Normal 1.8-2.4 [facility] Comment on above: Performed By: #### R ENAL, MG, URIC #### [facility] [address] [place] [address] Dr. Rizwan Fernando RENAL FUNCTION PANELon 06-02 Albumin [Mass/Vol] 3.9 g/dL Normal 3.4-5.0 [facility] Comment on above: Performed By: #### R ENAL, MG, URIC #### [facility] [address] [place] [address] Dr. Rizwan Fernando Calcium [Mass/Vol] 9.2 mg/dL Normal 8.5-10.1 [facility] Comment on above: Performed By: #### R ENAL, MG, URIC #### [facility] [address] [address] [address] Rizwan Fernando Chloride [Moles/Vol] 102 mmol/L Normal 98-107 [facility] Comment on above: Performed By: #### R ENAL, MG, URIC #### [facility] [address] [address] [address] Rizwan Fernando CO2 [Moles/Vol] 29.2 mmol/L Normal 21.0-32.0 [facility] Comment on above: Performed By: #### R ENAL, MG, URIC #### [facility] [address] [place] [address] Dr. Rizwan Fernando Creatinine [Mass/Vol] 1.05 mg/dL Critically high 0.55-1.02 [facility] Comment on above: Performed By: #### R ENAL, MG, URIC #### [facility] [address] [address] [address] Rizwan Fernando EGFR-AF WELSH >60 Normal >=60 [facility] Comment on above: Performed By: #### R ENAL, MG, URIC #### [facility] [address] [place] [address] Dr. Rizwan Fernando EGFR-NON AF WELSH 51 mL/min/1.73m2 Critically low >=60 [facility] Comment on above: Performed By: #### R ENAL, MG, URIC #### [facility] [address] [address] [address] Rizwan Fernando Glucose [Mass/Vol] 112 mg/dL Critically high 74-106 [facility] Comment on above: Performed By: #### R ENAL, MG, URIC #### [facility] [address] [place] [address] Dr. Rizwan Fernando Phosphate [Mass/Vol] 4.3 mg/dL Normal 2.6-4.7 [facility] Comment on above: Performed By: #### R ENAL, MG, URIC #### [facility] [address] [place] [address] Dr. Rizwan Fernando Potassium [Moles/Vol] 4.0 mmol/L Normal 3.5-5.1 [facility] Comment on above: Performed By: #### R ENAL, MG, URIC #### [facility] [address] [place] [address] Dr. Rizwan Fernando Sodium [Moles/Vol] 139 mmol/L Normal 136-145 [facility] Comment on above: Performed By: #### R ENAL, MG, URIC #### [facility] [address] [place] [address] Dr. Rizwan Fernando Urea nitrogen [Mass/Vol] 24.0 mg/dL Critically high 7.0-18.0 [facility] Comment on above: Performed By: #### R ENAL, MG, URIC #### [facility] [address] [place] [address] Dr. Rizwan Fernando UA RANDOM W/MICROSCOPICon BACTERIA NONE SEEN Normal NONE SEEN [facility] Comment on above: Performed By: #### R ENAL, MG, URIC #### [facility] [address] [place] [address] Dr. Rizwan Fernando Bilirubin Ql (U) Negative Normal NEGATIVE [facility] Comment on above: Performed By: #### R ENAL, MG, URIC #### [facility] [address] [place] [address] Dr. Rizwan Fernando CAST NONE SEEN Normal NONE SEEN [facility] Comment on above: Performed By: #### R ENAL, MG, URIC #### [facility] [address] [place] [address] Dr. Rizwan Fernando Clarity (U) CLEAR Normal CLEAR [facility] Comment on above: Performed By: #### R ENAL, MG, URIC #### [facility] [address] [place] [address] Dr. Rizwan Fernando Color (U) LT. YELLOW Normal YELLOW [facility] Comment on above: Performed By: #### R ENAL, MG, URIC #### [facility] [address] [place] [address] Dr. Rizwan Fernando Crystals LM Nom (Urine sed) NONE SEEN Normal NONE SEEN [facility] Comment on above: Performed By: #### R ENAL, MG, URIC #### [facility] [address] [address] [address] Rizwan Fernando Epithelial cells LM Ql (Urine sed) NONE SEEN Normal NONE SEEN /RARE [facility] Comment on above: Performed By: #### R ENAL, MG, URIC #### [facility] [address] [address] [address] Rizwan Fernando Glucose Ql (U) 250 mg/dl Abnormal NEGATIVE [facility] Comment on above: Performed By: #### R ENAL, MG, URIC #### [facility] [address] [place] [address] Dr. Rizwan Fernando Hemoglobin Ql (U) Negative Normal NEGATIVE [facility] Comment on above: Performed By: #### R ENAL, MG, URIC #### [facility] [address] [place] [address] Dr. Rizwan Fernando Ketones Ql (U) Negative Normal NEGATIVE [facility] Comment on above: Performed By: #### R ENAL, MG, URIC #### [facility] [address] [place] [address] Dr. Rizwan Fernando LEUKOCYTES TRACE Abnormal NEGATIVE [facility] Comment on above: Performed By: #### R ENAL, MG, URIC #### [facility] [address] [place] [address] Dr. Rizwan Fernando MUCOUS NONE SEEN Normal NONE SEEN [facility] Comment on above: Performed By: #### R ENAL, MG, URIC #### [facility] [address] [place] [address] Dr. Rizwan Fernando Nitrite Ql (U) Negative Normal NEGATIVE [facility] Comment on above: Performed By: #### R ENAL, MG, URIC #### [facility] [address] [place] [address] Dr. Rizwan Fernando pH (U) 6.0 [pH] Normal 5-9 [facility] Comment on above: Performed By: #### R ENAL, MG, URIC #### [facility] [address] [address] [address] Rizwan Fernando RBC NONE SEEN Abnormal 0-2 [facility] Comment on above: Performed By: #### R ENAL, MG, URIC #### [facility] [address] [place] [address] Dr. Rizwan Fernando SPEC GRAVITY 1.015 Normal 1.005-<=1.02 5 [facility] Comment on above: Performed By: #### R ENAL, MG, URIC #### [facility] [address] [place] [address] Dr. Rizwan Fernando UA PROTEIN Negative Normal NEGATIVE/ TRACE [facility] Comment on above: Performed By: #### R ENAL, MG, URIC #### [facility] [address] [place] [address] Dr. Rizwan Fernando Urobilinogen Qn (U) 0.2 {Wil'U}/dL Normal 0.2 - 1. 0 [facility] Comment on above: Performed By: #### R ENAL, MG, URIC #### [facility] [address] [place] [address] Dr. Rizwan Fernando WBC 0-2 Abnormal NONE SEEN [facility] Comment on above: Performed By: #### R ENAL, MG, URIC #### [facility] [address] [place] [address] Dr. Rizwan Fernando URIC ACID SERUMon 06-02-2022 Urate [Mass/Vol] 4.3 mg/dL Normal 2.6-6.0 [facility] Comment on above: Performed By: #### R ENAL, MG, URIC #### [facility] [address] [place] [address] Dr. Rizwan Fernando URINE T PROTEIN CREAT RATIOo n 06-02-2022 Protein (U) [Mass/Vol] 12.9 mg/dL Critically high <=12.0 [facility] Comment on above: Performed By: #### U RTPCR #### [facility] [address] [place] [address] Dr. Rizwan Fernando UR PROT CREAT RAT 0.[address] Normal [address] [facility] Comment on above: Performed By: #### U RTPCR #### [facility] [address] [address] [address] Rizwna Fernando URINE CREAT 62.07 mg/dL Normal 20.00-300.00 [facility] Comment on above: Performed By: #### U RTPCR #### [facility] [address] [address] [address] Rizwan Fernando VITAMIN D 25 OHon 06-02-2022 VIT D 25-OH 42.4 ng/mL Normal [facility] Comment on above: Performed By: #### R ENAL, MG, URIC #### [facility] [address] [place] [address] Dr. Rizwan Fernando VIT D RANGES SEE BELOW [facility] Comment on above: Result Comment: <20 ng/mL Vit D deficient 20 - <30 ng/mL Vit D insufficient 30 - 100 ng/mL Vit D sufficient >100 ng/mL Potential Toxicity Performed By: #### R ENAL, MG, URIC #### [facility] [address] [place] [address] Dr. Rizwan Fernando A1C HEMOGLOBINon 03-31-2022 HbA1c (Bld) [Mass fraction] 5.8 % [facility] [employer] Other Glucose - FINGER STICKon Glucose [Mass/Vol] 135 mg/dL [facility] Other HbA1c (Bld) [Mass fraction]o n 03-31-2022 A1C HEMOGLOBIN [facility] [employer] Other PROF CHEM 8 (BAS METB)on Anion gap [Moles/Vol] 13.7 mmol/L Normal [facility] Comment on above: Performed By: #### R ENAL, MG, URIC #### [facility] [address] [place] [address] Dr. Rizwan Fernando Calcium [Mass/Vol] 9.1 mg/dL Normal 8.5-10.1 [facility] Comment on above: Performed By: #### R ENAL, MG, URIC #### [facility] [address] [address] [address] Rizwan Fernando Chloride [Moles/Vol] 103 mmol/L Normal 98-107 [facility] Comment on above: Performed By: #### R ENAL, MG, URIC #### [facility] [address] [address] [address] Rizwan Fernando CO2 [Moles/Vol] 28.8 mmol/L Normal 21.0-32.0 [facility] Comment on above: Performed By: #### R ENAL, MG, URIC #### [facility] [address] [address] [address] Rizwan Fernando Creatinine [Mass/Vol] 1.21 mg/dL Critically high 0.55-1.02 [facility] Comment on above: Performed By: #### R ENAL, MG, URIC #### [facility] [address] [address] [address] Rizwan Fernando EGFR-AF WELSH 53 mL/min/1.73m2 Critically low >=60 [facility] Comment on above: Performed By: #### R ENAL, MG, URIC #### [facility] [address] [address] [address] Rizwan Fernando EGFR-NON AF WELSH 43 mL/min/1.73m2 Critically low >=60 [facility] Comment on above: Performed By: #### R ENAL, MG, URIC #### [facility] [address] [address] [address] Rizwan Fernando Glucose [Mass/Vol] 121 mg/dL Critically high 74-106 [facility] Comment on above: Performed By: #### R ENAL, MG, URIC #### [facility] [address] [address] [address] Rizwan Fernando Potassium [Moles/Vol] 4.5 mmol/L Normal 3.5-5.1 [facility] Comment on above: Performed By: #### R ENAL, MG, URIC #### [facility] [address] [address] [address] Rizwan Fernando Sodium [Moles/Vol] 141 mmol/L Normal 136-145 [facility] Comment on above: Performed By: #### R ENAL, MG, URIC #### [facility] [address] [place], [place] [address] Dr. Rizwan Fernando Urea nitrogen [Mass/Vol] 26.0 mg/dL Critically high 7.0-18.0 [facility] Comment on above: Performed By: #### R ENAL, MG, URIC #### [facility] [address] [place], [place] [address] Dr. Rizwan Fernando Urea nitrogen/Creatinine [Mass ratio] 21.5 mg/mg Normal [facility] Comment on above: Performed By: #### R ENAL, MG, URIC #### [facility] [id number] Rizwan Fernando MG MAMM SCREEN 3D NICOLE CADon 02-05-2022 MG MAMM SCREEN 3D NICOLE CAD Patient: ASHLEY OLSON Exam Date: 02/05/2022 : 1945 Gender:F Ordering : [facility] Admission #: [id number] Family : Order #: [id number] CLICK HERE TO VIEW EXAM RADIOLOGY REPORT [...] liver cancer at age 70. LOCATION: [facility] BREAST COMPOSITION: Scattered areas fibroglandular density. FINDINGS: [...] Hancock MD on 02/05/2022 at 09:50 Normal [facility] RENAL FUNCTION PANELon 12-22 Albumin [Mass/Vol] 4.4 g/dL Normal 3.4-5.0 [facility] Comment on above: Performed By: #### R ENAL, MG, URIC #### [facility] [address] [address] [address] Rizwan Fernando Calcium [Mass/Vol] 9.5 mg/dL Normal 8.5-10.1 [facility] [place] Comment on above: Performed By: #### R ENAL, MG, URIC #### [facility] [address] [address] [address] Rizwan Fernando Chloride [Moles/Vol] 102 mmol/L Normal 98-107 [facility] Comment on above: Performed By: #### R ENAL, MG, URIC #### [facility] [address] [place] [address] Dr. Rizwan Fernando CO2 [Moles/Vol] 29.2 mmol/L Normal 21.0-32.0 [facility] Comment on above: Performed By: #### R ENAL, MG, URIC #### [facility] [address] [address] [address] Rizwan Fernando Creatinine [Mass/Vol] 1.04 mg/dL Critically high 0.55-1.02 [facility] Comment on above: Performed By: #### R ENAL, MG, URIC #### [facility] [address] [address] [address] Rizwan Fernando EGFR-AF WELSH >60 Normal >=60 [facility] Comment on above: Performed By: #### R ENAL, MG, URIC #### [facility] [address] [address] [address] Rizwan Fernando EGFR-NON AF WELSH 52 mL/min/1.73m2 Critically low >=60 [facility] Comment on above: Performed By: #### R ENAL, MG, URIC #### [facility] [address] [address] [address] Rizwan Fernando Glucose [Mass/Vol] 101 mg/dL Normal 74-106 [facility] [place] Comment on above: Performed By: #### R ENAL, MG, URIC #### [facility] [address] [address] [address] Rizwan Fernando Phosphate [Mass/Vol] 5.0 mg/dL Critically high 2.6-4.7 [facility] Comment on above: Performed By: #### R ENAL, MG, URIC #### [facility] [address] [address] [address] Rizwan Fernando Potassium [Moles/Vol] 4.1 mmol/L Normal 3.5-5.1 [facility] Comment on above: Performed By: #### R ENAL, MG, URIC #### [facility] [address] [address] [address] Rizwan Fernando Sodium [Moles/Vol] 141 mmol/L Normal 136-145 [facility] Comment on above: Performed By: #### R ENAL, MG, URIC #### [facility] [address] [address] [address] Rizwan Fernando Urea nitrogen [Mass/Vol] 24.0 mg/dL Critically high 7.0-18.0 [facility] Comment on above: Performed By: #### R ENAL, MG, URIC #### [facility] [address] [place] [address] Dr. Rizwan Fernando A1C HEMOGLOBINon 12-21-2021 HbA1c (Bld) [Mass fraction] 6.1 % [facility] Other Glucose - FINGER STICKon Glucose [Mass/Vol] 137 mg/dL [facility] Other HbA1c (Bld) [Mass fraction]o n 12-21-2021 A1C HEMOGLOBIN [facility] Other PTH INTACTon 12-05-2021 PTH, Intact 26 pg/mL Normal 15-65 [facility] Comment on above: Performed By: #### R ENAL, MG, URIC #### [facility] [address] [address] [address] Rizwan Fernando FERRITINon 12-04-2021 Ferritin [Mass/Vol] 89.0 ng/mL Normal 8.0-252.[address] [facility] Comment on above: Performed By: #### R ENAL, MG, URIC #### [facility] [address] [place] [address] Dr. Rizwan Fernando HEMOGRAM AND PLATELon 2021 Hematocrit (Bld) [Volume fraction] 38.3 % Normal 36.0-48.0 [facility] Comment on above: Performed By: #### R ENAL, MG, URIC #### [facility] [address] [place] [address] Dr. Rizwan Fernando Hemoglobin (Bld) [Mass/Vol] 12.5 g/dL Normal 12.0-16.0 [facility] Comment on above: Performed By: #### R ENAL, MG, URIC #### [facility] [address] [place] [address] Dr. Rizwan Fernando MCH (RBC) [Entitic mass] 28.9 pg Normal 26.7-34.0 [facility] Comment on above: Performed By: #### R ENAL, MG, URIC #### [facility] [address] [place] [address] Dr. Rizwan Fernando MCHC (RBC) [Mass/Vol] 32.6 g/dL Normal 29.9-35.2 [facility] Comment on above: Performed By: #### R ENAL, MG, URIC #### [facility] [address] [place] [address] Dr. Rizwan Fernando MCV (RBC) [Entitic vol] 88.5 fL Normal 81.0-99.0 [facility] Comment on above: Performed By: #### R ENAL, MG, URIC #### [facility] [address] [place] [address] Dr. Rizwan Fernando PLT 188 103/ul Normal 150-450 [facility] Comment on above: Performed By: #### R ENAL, MG, URIC #### [facility] [address] [place] [address] Dr. Rizwan Fernando RBC 4.33 106/ul Normal 4.20-5.40 [facility] Comment on above: Performed By: #### R ENAL, MG, URIC #### [facility] [address] [address] [address] Rizwan Fernando WBC 5.4 103/ul Normal 4.0-11.0 [facility] Comment on above: Performed By: #### R ENAL, MG, URIC #### [facility] [address] [address] [address] Rizwan Fernando IRON AND TIBCon 12-04-2021 % SATURATION 20.3 % Normal [facility] Comment on above: Performed By: #### R ENAL, MG, URIC #### [facility] [address] [place] [address] Dr. Rizwan Fernando Iron [Mass/Vol] 56.0 ug/dL Normal 50.0-170.0 [facility] Comment on above: Performed By: #### R ENAL, MG, URIC #### [facility] [address] [address] [address] Rizwan Fernando TIBC DIRECT 276.0 ug/dL Normal 250.0-450.0 [facility] Comment on above: Performed By: #### R ENAL, MG, URIC #### [facility] [address] [place] [address] Dr. Rizwan Fernando LIPID PROFILEon 12-04-2021 CHOL-HDL RATIO NORM SEE BELOW Normal [facility] Comment on above: Result Comment: 3.3 - 4.4 LOW RISK 4.4 - 7.1 AVERAGE RISK 7.1 - 11.0 MODERATE RISK >11.0 HIGH RISK Performed By: #### R ENAL, MG, URIC #### [facility] [address] [address] [address] Rizwan Fernando Cholesterol [Mass/Vol] 152 mg/dL Normal <=200 [facility] Comment on above: Performed By: #### R ENAL, MG, URIC #### [facility] [address] [place] [address] Dr. Rizwan Fernando Cholesterol in HDL [Mass/Vol] 57 mg/dL Normal 40-60 [facility] Comment on above: Performed By: #### R ENAL, MG, URIC #### [facility] [address] [address] [address] Rizwan Fernando Cholesterol in LDL [Mass/Vol] 41.4 mg/dL Normal [facility] Comment on above: Performed By: #### R ENAL, MG, URIC #### [facility] [address] [address] [address] Rizwan Fernando Cholesterol.total/Cho lesterol in HDL [Mass ratio] 2.7 {ratio} Normal [facility] Comment on above: Performed By: #### R ENAL, MG, URIC #### [facility] [address] [address] [address] Rizwan Fernando HDL NORMAL > or = 60 mg/dl - LO W CARDIOVASCULAR RISK <40 mg/dl - HIGH CARDIOVASCULAR RISK Normal [facility] Comment on above: Performed By: #### R ENAL, MG, URIC #### [facility] [address] [address] [address] Rizwan Fernando LDL CALC NORMAL SEE BELOW Normal [facility] Comment on above: Result Comment: <100 mg/dl OPTIMAL 100 - 129 mg/dl NEAR OR ABOVE OPTIMAL 130 - 159 mg/dl BORDERLINE HIGH 160 - 189 mg/dl HIGH >190 mg/dl VERY HIGH Performed By: #### R ENAL, MG, URIC #### [facility] [address] [address] [address] Rizwan Fernando Triglyceride [Mass/Vol] 268 mg/dL Critically high <=150 [facility] Comment on above: Performed By: #### R ENAL, MG, URIC #### [facility] [address] [address] [address] Rizwan Fernando VLDL CALC 53.6 mg/dL Normal [facility] Comment on above: Performed By: #### R ENAL, MG, URIC #### [facility] [address] [address] [address] Rizwan Fernando MAGNESIUMon 12-04-2021 Magnesium [Mass/Vol] 1.6 mg/dL Critically low 1.8-2.4 [facility] Comment on above: Performed By: #### R ENAL, MG, URIC #### [facility] [address] [address] [address] Rizwan Fernando MICROALB CREAT RATIO RANDOMo n 12-04-2021 mALB 1.6 mg/L Normal <=30.0 [facility] Comment on above: Performed By: #### M CRR #### [facility] [address] [address] [address] Rizwan Fernando MALB CR RATIO 26.9 mg/g Normal 0.0-29.9 [facility] Comment on above: Performed By: #### M CRR #### [facility] [address] [place] [address] Dr. Rizwan Fernando MALB CR RATIO RANGE SEE BELOW Normal [facility] Comment on above: Result Comment: NO M ICROALBUMINURIA 0-29 MG/G CLINICAL MICROALBUMINURIA 30-300 MG/G MACROALBUMINURIA >300 MG/G Performed By: #### M CRR #### [facility] [address] [place] [address] Dr. Rizwan Fernando URINE CREAT 59.53 mg/dL Normal 20.00-300.[address] [facility] Comment on above: Performed By: #### M CRR #### [facility] [address] [place] [address] Dr. Rizwan Fernando PHOSPHORUSon 12-04-2021 Phosphate [Mass/Vol] 4.0 mg/dL Normal 2.6-4.7 [facility] Comment on above: Performed By: #### R ENAL, MG, URIC #### [facility] [address] [place] [address] Dr. Rizwan Fernando PROF 14(COMP METB)on 022 Albumin [Mass/Vol] 4.0 g/dL Normal 3.4-5.0 [facility] Comment on above: Performed By: #### R ENAL, MG, URIC #### [facility] [address] [place] [address] Dr. Rizwan Fernando Albumin/Globulin [Mass ratio] 1.3 {ratio} Normal [facility] Comment on above: Performed By: #### R ENAL, MG, URIC #### [facility] [address] [address] [address] Rizwan Fernando ALP [Catalytic activity/Vol] 118 U/L Critically high 46-116 [facility] Comment on above: Performed By: #### R ENAL, MG, URIC #### [facility] [address] [place] [address] Dr. Rizwan Fernando ALT [Catalytic activity/Vol] 23 U/L Normal 14-59 [facility] Comment on above: Performed By: #### R ENAL, MG, URIC #### [facility] [address] [place] [address] Dr. Rizwan Fernando Anion gap [Moles/Vol] 10.7 mmol/L Normal [facility] Comment on above: Performed By: #### R ENAL, MG, URIC #### [facility] [address] [place] [address] Dr. Rizwan Fernando AST [Catalytic activity/Vol] 20 U/L Normal 15-37 [facility] Comment on above: Performed By: #### R ENAL, MG, URIC #### [facility] [address] [place] [address] Dr. Rizwan Fernando Bilirubin [Mass/Vol] 0.6 mg/dL Normal 0.2-1.0 [facility] Comment on above: Performed By: #### R ENAL, MG, URIC #### [facility] [address] [place] [address] Dr. Rizwan Fernando Calcium [Mass/Vol] 8.9 mg/dL Normal 8.5-10.1 [facility] Comment on above: Performed By: #### R ENAL, MG, URIC #### [facility] [address] [place] [address] Dr. Rizwan Fernando Chloride [Moles/Vol] 103 mmol/L Normal 98-107 [facility] Comment on above: Performed By: #### R ENAL, MG, URIC #### [facility] [address] [place] [address] Dr. Rizwan Fernando CO2 [Moles/Vol] 28.2 mmol/L Normal 21.0-32.0 [facility] Comment on above: Performed By: #### R ENAL, MG, URIC #### [facility] [address] [address] [address] Rizwan Fernando Creatinine [Mass/Vol] 1.04 mg/dL Critically high 0.55-1.02 [facility] Comment on above: Performed By: #### R ENAL, MG, URIC #### [facility] [address] [address] [address] Rizwan Fernando EGFR-AF WELSH >60 Normal >=60 [facility] Comment on above: Performed By: #### R ENAL, MG, URIC #### [facility] [address] [place] [address] Dr. Rizwan Fernando EGFR-NON AF WELSH 52 mL/min/1.73m2 Critically low >=60 [facility] Comment on above: Performed By: #### R ENAL, MG, URIC #### [facility] [address] [place] [address] Dr. Rizwan Fernando Globulin (S) [Mass/Vol] 3.1 g/dL Normal [facility] Comment on above: Performed By: #### R ENAL, MG, URIC #### [facility] [address] [place] [address] Dr. Rizwan Fernando Glucose [Mass/Vol] 115 mg/dL Critically high 74-106 [facility] Comment on above: Performed By: #### R ENAL, MG, URIC #### [facility] [address] [place] [address] Dr. Rizwan Fernando Potassium [Moles/Vol] 3.9 mmol/L Normal 3.5-5.1 [facility] Comment on above: Performed By: #### R ENAL, MG, URIC #### [facility] [address] [place] [address] Dr. Rizwan Fernando Protein [Mass/Vol] 7.1 g/dL Normal 6.4-8.2 [facility] Comment on above: Performed By: #### R ENAL, MG, URIC #### [facility] [address] [address] [address] Rizwan Fernando Sodium [Moles/Vol] 138 mmol/L Normal 136-145 [facility] Comment on above: Performed By: #### R ENAL, MG, URIC #### [facility] [address] [address] [address] Rizwan Fernando Urea nitrogen [Mass/Vol] 23.0 mg/dL Critically high 7.0-18.0 [facility] Comment on above: Performed By: #### R ENAL, MG, URIC #### [facility] [address] [place] [address] Dr. Rizwan Fernando Urea nitrogen/Creatinine [Mass ratio] 22.1 mg/mg Normal [facility] Comment on above: Performed By: #### R ENAL, MG, URIC #### [facility] [address] [place] [address] Dr. Rizwan Fernando UA RANDOM W/MICROSCOPICon BACTERIA NONE SEEN Normal NONE SEEN [facility] Comment on above: Performed By: #### R ENAL, MG, URIC #### [facility] [address] [place] [address] Dr. Rizwan Fernando Bilirubin Ql (U) Negative Normal NEGATIVE [facility] Comment on above: Performed By: #### R ENAL, MG, URIC #### [facility] [address] [place] [address] Dr. Rizwan Fernando CAST NONE SEEN Normal NONE SEEN [facility] Comment on above: Performed By: #### R ENAL, MG, URIC #### [facility] [address] [place] [address] Dr. Rizwan Fernando Clarity (U) CLEAR Normal CLEAR [facility] Comment on above: Performed By: #### R ENAL, MG, URIC #### [facility] [address] [place] [address] Dr. Rizwan Fernando Color (U) LT. YELLOW Normal YELLOW [facility] Comment on above: Performed By: #### R ENAL, MG, URIC #### [facility] [address] [address] [address] Rizwan Fernando Crystals LM Nom (Urine sed) NONE SEEN Normal NONE SEEN [facility] Comment on above: Performed By: #### R ENAL, MG, URIC #### [facility] [address] [place] [address] Dr. Rizwan Fernando Epithelial cells LM Ql (Urine sed) RARE Normal NONE SEEN /RARE [facility] Comment on above: Performed By: #### R ENAL, MG, URIC #### [facility] [facility] [address] [place] [address] Dr. Rizwan Fernando Glucose Ql (U) Negative Normal NEGATIVE [facility] Comment on above: Performed By: #### R ENAL, MG, URIC #### [facility] [address] [place] [address] Dr. Rizwan Fernando Hemoglobin Ql (U) Negative Normal NEGATIVE The [facility] Comment on above: Performed By: #### R ENAL, MG, URIC #### [facility] [address] [place] [address] Dr. Rizwan Fernando Ketones Ql (U) Negative Normal NEGATIVE [facility] Comment on above: Performed By: #### R ENAL, MG, URIC #### [facility] [address] [place] [address] Dr. Rizwan Fernando LEUKOCYTES TRACE Abnormal NEGATIVE [facility] Comment on above: Performed By: #### R ENAL, MG, URIC #### [facility] [address] [place] [address] Dr. Rizwan Fernando MUCOUS NONE SEEN Normal NONE SEEN The [facility] Comment on above: Performed By: #### R ENAL, MG, URIC #### [facility] [address] [place] [address] Dr. Rizwan Fernando Nitrite Ql (U) Negative Normal NEGATIVE [facility] Comment on above: Performed By: #### R ENAL, MG, URIC #### [facility] [address] [place] [address] Dr. Rizwan Fernando pH (U) 6.0 [pH] Normal 5-9 The [facility] Comment on above: Performed By: #### R ENAL, MG, URIC #### [facility] [address] [place] [address] Dr. Rizwan Fernando RBC NONE SEEN Abnormal 0-2 The [facility] Comment on above: Performed By: #### R ENAL, MG, URIC #### [facility] [address] [place] [address] Dr. Rizwan Fernando SPEC GRAVITY 1.010 Normal 1.005-<=1.02 5 The [facility] Comment on above: Performed By: #### R ENAL, MG, URIC #### [facility] [address] [place] [address] Dr. Rizwan Fernando UA PROTEIN Negative Normal NEGATIVE/ TRACE The [facility] Comment on above: Performed By: #### R ENAL, MG, URIC #### [facility] [address] [place] [address] Dr. Rizwan Fernando Urobilinogen Qn (U) 0.2 {Wil'U}/dL Normal 0.2 - 1. 0 The [facility] Comment on above: Performed By: #### R ENAL, MG, URIC #### [facility] [address] [place] [address] Dr. Rizwan Fernando WBC 0-2 Abnormal NONE SEEN The [facility] Comment on above: Performed By: #### R ENAL, MG, URIC #### [facility] [address] [place] [address] Dr. Rizwan Fernando URIC ACID SERUMon 12-04-2021 Urate [Mass/Vol] 5.5 mg/dL Normal 2.6-6.0 [facility] Comment on above: Performed By: #### R ENAL, MG, URIC #### [facility] [address] [place] [address] Dr. Rizwan Fernando URINE T PROTEIN CREAT RATIOo n 12-04-2021 Protein (U) [Mass/Vol] 10.7 mg/dL Normal <=12.0 The [facility] Comment on above: Performed By: #### R ENAL, MG, URIC #### [facility] [address] [place] [address] Dr. Rizwan Fernando UR PROT CREAT RAT 0.18 Normal [facility] Comment on above: Performed By: #### R ENAL, MG, URIC #### [facility] [address] [place] [address] Dr. Rizwan Fernando URINE CREAT 59.94 mg/dL Normal 20.00-300.00 [facility] Comment on above: Performed By: #### R ENAL, MG, URIC #### [facility] [address] [place] [address] Dr. Rizwan Fernando VITAMIN B12on 12-04-2021 Cobalamin (Vitamin B12) [Mass/Vol] 1679.0 pg/mL Critically high 193.0-986.0 [facility] Comment on above: Performed By: #### V ITB12 #### [facility] [address] [place] [address] Dr. Rizwan Fernando VITAMIN D 25 OHon 12-04-2021 VIT D 25-OH 38.3 ng/mL Normal [facility] Comment on above: Performed By: #### R ENAL, MG, URIC #### [facility] [address] [place] [address] Dr. Rizwan Fernando VIT D RANGES SEE BELOW Normal [facility] Comment on above: Result Comment: <20 ng/mL Vit D deficient 20 - <30 ng/mL Vit D insufficient 30 - 100 ng/mL Vit D sufficient >100 ng/mL Potential Toxicity Performed By: #### R ENAL MG, URIC #### [facility] [address] [place] [address] Dr. Rizwan Fernando OVA AND PARASITE EXAMINATION on 06-25-2021 Ova + Parasite Exam Final report Normal [facility] Comment on above: Result Comment: Thes e results were obtained using wet preparation(s) and trichrome stained smear. This test does not include testing for Cryptosporidium parvum, Cyclospora, or Microsporidia. Performed By: #### R ENAL, MG, URIC #### [facility] [address] [place] [address] Dr. Rizwan Fernando Result 1 Comment Normal [facility] Comment on above: Result Comment: No o va, cysts, or parasites seen. . One negative specimen does not rule out the possibility of a parasitic infection. Performed By: #### R ENAL, MG, URIC #### [facility] [address] [place] [address] Dr. Rizwan Fernando A1C HEMOGLOBINon 06-23-2021 HbA1c (Bld) [Mass fraction] 6.1 % [facility] [employer] Other Glucose - FINGER STICKon Glucose [Mass/Vol] 153 mg/dL [facility] Other HbA1c (Bld) [Mass fraction]o n 06-23-2021 A1C HEMOGLOBIN [facility] [employer] Other STOOL CULTUREon 06-21-2021 Campylobacter Culture Final report Normal [facility] Comment on above: Performed By: #### C XSTOOL #### [facility] [address] [place] [address] Dr. Rizwan Fernando E coli Shiga Toxin EIA Negative Normal Negative [facility] Comment on above: Performed By: #### C XSTOOL #### [facility] [address] [place] [address] Dr. Rizwan Fernando Result 1 Comment Normal [facility] Comment on above: Result Comment: No S almonella or Shigella recovered. Performed By: #### C XSTOOL #### [facility] [address] [place] [address] Dr. Riwzan Fernando Result Comment: No C ampylobacter species isolated. Salmonella/Shigella Screen Final report Normal [facility] Comment on above: Performed By: #### C XSTOOL #### [facility] [address] [place] [address] Dr. Rizwan Fernando C. DIFF PCRon 06-18-2021 C. DIFFICILE PCR Negative Normal NEGATIVE [facility] Comment on above: Performed By: #### R ENAL, MG, URIC #### [facility] [address] [place] [address] Dr. Rizwan Fernando OCC BLD IMMUNOASSAYon 2021 OCCULT BLOOD Negative Normal NEGATIVE [facility] Comment on above: Performed By: #### R ENAL, MG, URIC #### [facility] [address] [place] [address] Dr. Rizwan Fernando FERRITINon 06-12-2021 Ferritin [Mass/Vol] 64.0 ng/mL Normal 11.1-264.[address] [facility] Comment on above: Performed By: #### R ENAL, MG, URIC #### [facility] [address] [place] [address] Dr. Rizwna Fernando HEMOGRAM AND PLATELon 2021 Hematocrit (Bld) [Volume fraction] 39.1 % Normal 36.0-48.0 [facility] Comment on above: Performed By: #### R ENAL, MG, URIC #### [facility] [address] [place] [address] Dr. Rizwan Fernando Hemoglobin (Bld) [Mass/Vol] 12.6 g/dL Normal 12.0-16.0 [facility] Comment on above: Performed By: #### R ENAL, MG, URIC #### [facility] [address] [place] [address] Dr. Rizwan Fernando MCH (RBC) [Entitic mass] 28.3 pg Normal 26.7-34.0 [facility] Comment on above: Performed By: #### R ENAL, MG, URIC #### [facility] [address] [place] [address] Dr. Rizwan Fernando MCHC (RBC) [Mass/Vol] 32.2 g/dL Normal 29.9-35.2 [facility] Comment on above: Performed By: #### R ENAL, MG, URIC #### [facility] [address] [place] [address] Dr. Rizwan Fernando MCV (RBC) [Entitic vol] 87.9 fL Normal 81.0-99.0 [facility] Comment on above: Performed By: #### R ENAL, MG, URIC #### [facility] [address] [place] [address] Dr. Rizwan Fernando PLT 181 103/ul Normal 150-450 [facility] Comment on above: Performed By: #### R ENAL, MG, URIC #### [facility] [address] [address] [address] Rizwan Fernando RBC 4.45 106/ul Normal 4.20-5.40 [facility] Comment on above: Performed By: #### R ENAL, MG, URIC #### [facility] [address] [address] [address] Rizwan Fernando WBC 7.3 103/ul Normal 4.0-11.0 [facility] Comment on above: Performed By: #### R ENAL, MG, URIC #### [facility] [address] [address] [address] Rizwan Fernando IRON AND TIBCon 06-12-2021 % SATURATION 19.4 % Normal [facility] Comment on above: Performed By: #### R ENAL, MG, URIC #### [facility] [address] [place] [address] Dr. Rizwan Fernando Iron [Mass/Vol] 55.0 ug/dL Normal 37.0-170.0 [facility] Comment on above: Performed By: #### R ENAL, MG, URIC #### [facility] [address] [address] [address] Rizwan Fernando TIBC DIRECT 284.0 ug/dL Normal 261.0-497.0 [facility] Comment on above: Performed By: #### R ENAL, MG, URIC #### [facility] [address] [address] [address] Rizwan Fernando MAGNESIUMon 06-12-2021 Magnesium [Mass/Vol] 1.9 mg/dL Normal 1.6-2.3 [facility] Comment on above: Performed By: #### R ENAL, MG, URIC #### [facility] [address] [address] [address] Rizwan Fernando RENAL FUNCTION PANELon 06-12 Albumin [Mass/Vol] 3.8 g/dL Normal 3.4-5.0 [facility] Comment on above: Performed By: #### R ENAL, MG, URIC #### [facility] [address] [address] [address] Rizwan Fernando Calcium [Mass/Vol] 8.6 mg/dL Normal 8.5-10.1 [facility] Comment on above: Performed By: #### R ENAL, MG, URIC #### [facility] [address] [address] [address] Rizwan Fernando Chloride [Moles/Vol] 102 mmol/L Normal 98-107 [facility] Comment on above: Performed By: #### R ENAL, MG, URIC #### [facility] [address] [address] [address] Rizwan Fernando CO2 [Moles/Vol] 31.2 mmol/L Critically high 22.0-30.0 [facility] Comment on above: Performed By: #### R ENAL, MG, URIC #### [facility] [address] [place] [address] Dr. Rizwan Fernando Creatinine [Mass/Vol] 1.07 mg/dL Critically high 0.52-1.04 [facility] Comment on above: Performed By: #### R ENAL, MG, URIC #### [facility] [address] [place] [address] Dr. Rizwan Fernando EGFR-AF WELSH >60 Normal >=60 [facility] Comment on above: Performed By: #### R ENAL, MG, URIC #### [facility] [address] [place] [address] Dr. Rizwan Fernando EGFR-NON AF WELSH 50 mL/min/1.73m2 Critically low >=60 [facility] Comment on above: Performed By: #### R ENAL, MG, URIC #### [facility] [address] [address] [address] Rziwan Fernando Glucose [Mass/Vol] 122 mg/dL Critically high 74-106 [facility] Comment on above: Performed By: #### R ENAL, MG, URIC #### [facility] [address] [address] [address] Rizwan Fernando Phosphate [Mass/Vol] 4.6 mg/dL Critically high 2.5-4.5 [facility] Comment on above: Performed By: #### R ENAL, MG, URIC #### [facility] [address] [place] [address] Dr. Rizwan Fernando Potassium [Moles/Vol] 4.1 mmol/L Normal 3.4-5.0 [facility] Comment on above: Performed By: #### R ENAL, MG, URIC #### [facility] [address] [place] [address] Dr. Rizwan Fernando Sodium [Moles/Vol] 138 mmol/L Normal 137-145 [facility] Comment on above: Performed By: #### R ENAL, MG, URIC #### [facility] [address] [place] [address] Dr. Rizwan Fernando Urea nitrogen [Mass/Vol] 27.0 mg/dL Critically high 7.0-18.0 [facility] Comment on above: Performed By: #### R ENAL, MG, URIC #### [facility] [address] [place] [address] Dr. Rizwan Fernando UA RANDOM W/MICROSCOPICon BACTERIA NONE SEEN Normal NONE SEEN [facility] Comment on above: Performed By: #### U AMIC #### [facility] [address] [place] [address] Dr. Rizwan Fernando Bilirubin Ql (U) Negative Normal NEGATIVE [facility] Comment on above: Performed By: #### U AMIC #### [facility] [address] [place] [address] Dr. Rizwan Fernando CAST NONE SEEN Normal NONE SEEN [facility] Comment on above: Performed By: #### U AMIC #### [facility] [address] [place] [address] Dr. Rizwan Fernando Clarity (U) CLEAR Normal CLEAR The [facility] Comment on above: Performed By: #### U AMIC #### [facility] [address] [place] [address] Dr. Rizwan Fernando Color (U) LT. YELLOW Normal YELLOW The [facility] Comment on above: Performed By: #### U AMIC #### [facility] [address] [place] [address] Dr. Rizwan Fernando Crystals LM Nom (Urine sed) NONE SEEN Normal NONE SEEN The [facility] Comment on above: Performed By: #### U AMIC #### [facility] [address] [address] [address] Rizwan Fernando Epithelial cells LM Ql (Urine sed) RARE Normal NONE SEEN /RARE The [facility] Comment on above: Performed By: #### U AMIC #### [facility] [address] [address] [address] Rizwan Fernando Glucose Ql (U) Negative Normal NEGATIVE [facility] Comment on above: Performed By: #### U AMIC #### [facility] [address] [address] [address] Rizwan Fernando Hemoglobin Ql (U) Negative Normal NEGATIVE [facility] Comment on above: Performed By: #### U AMIC #### [facility] [address] [place] [address] Dr. Rizwan Fernando Ketones Ql (U) Negative Normal NEGATIVE [facility] Comment on above: Performed By: #### U AMIC #### [facility] [address] [address] [address] Rizwan Fernando LEUKOCYTES Negative Normal NEGATIVE [facility] Comment on above: Performed By: #### U AMIC #### [facility] [address] [place] [address] Dr. Rizwan Fernando MUCOUS NONE SEEN Normal NONE SEEN [facility] Comment on above: Performed By: #### U AMIC #### [facility] [address] [address] [address] Rizwan Fernando Nitrite Ql (U) Negative Normal NEGATIVE [facility] Comment on above: Performed By: #### U AMIC #### [facility] [address] [place] [address] Dr. Rizwan Fernando pH (U) 6.0 [pH] Normal 5-9 [facility] Comment on above: Performed By: #### U AMIC #### [facility] [address] [address] [address] Rizwan Fernando RBC NONE SEEN Abnormal 0-2 [facility] Comment on above: Performed By: #### U AMIC #### [facility] [address] [place] [address] Dr. Rizwan Fernando SPEC GRAVITY 1.010 Normal 1.005-<=1.02 5 [facility] Comment on above: Performed By: #### U AMIC #### [facility] [address] [place] [address] Dr. Rizwan Fernando TRICH NONE SEEN Normal NONE SEEN [facility] Comment on above: Performed By: #### U AMIC #### [facility] [address] [place] [address] Dr. Rizwan Fernando UA PROTEIN Negative Normal NEGATIVE/ TRACE The [facility] Comment on above: Performed By: #### U AMIC #### [facility] [address] [place] [address] Dr. Rizwan Fernando Urobilinogen Qn (U) 0.2 {Wil'U}/dL Normal 0.2 - 1. 0 [facility] Comment on above: Performed By: #### U AMIC #### [facility] [address] [place] [address] Dr. Rizwan Fernando WBC NONE SEEN Normal NONE SEEN The [facility] Comment on above: Performed By: #### U AMIC #### [facility] [address] [place] [address] Dr. Rizwan Fernando YEAST NONE SEEN Normal NONE SEEN [facility] Comment on above: Performed By: #### U AMIC #### [facility] [address] [place] [address] Dr. Rizwan Fernando URIC ACID SERUMon 06-12-2021 Urate [Mass/Vol] 5.5 mg/dL Normal 2.5-6.2 [facility] Comment on above: Performed By: #### R ENAL, MG, URIC #### [facility] [address] [place] [address] Dr. Rizwan Fernando URINE T PROTEIN CREAT RATIOo n 06-12-2021 Protein (U) [Mass/Vol] 17.5 mg/dL Critically high <=12.0 [facility] Comment on above: Performed By: #### R ENAL, MG, URIC #### [facility] [address] [address] [address] Rizwan Fernando UR PROT CREAT RAT 0.23 Normal [facility] Comment on above: Performed By: #### R ENAL, MG, URIC #### [facility] [address] [address] [address] Rizwan Fernando URINE CREAT 76.34 mg/dL Normal 20.00-300.00 [facility] Comment on above: Performed By: #### R ENAL, MG, URIC #### [facility] [address] [address] [address] Rizwan Fernando VITAMIN D 25 OHon 06-12-2021 VIT D 25-OH 41.1 ng/mL Normal [facility] Comment on above: Performed By: #### R ENAL, MG, URIC #### [facility] [address] [place] [address] Dr. Rizwan Fernando VIT D RANGES SEE BELOW Normal [facility] Comment on above: Result Comment: <20 ng/mL Vit D deficient 20 - <30 ng/mL Vit D insufficient 30 - 100 ng/mL Vit D sufficient >100 ng/mL Potential Toxicity Performed By: #### R ENAL, MG, URIC #### [facility] [address] [place] [address] Dr. Rizwan Fernando A1C HEMOGLOBINon 12-17-2020 HbA1c (Bld) [Mass fraction] 5.8 % [facility] Other Glucose - FINGER STICKon Glucose [Mass/Vol] 182 mg/dL [facility] Other HbA1c (Bld) [Mass fraction]o n 12-17-2020 A1C HEMOGLOBIN [facility] Other LOWER EXTREMITY JOINT SURVEY on 09-21-2016 L[facility] [address] [place] [id number] Patient Name: ASHLEY OLSON : 1945Sex: FAge: Race: WhiteMRN: [id number]. Location: 86Patient Status: OVisit #: [id number] Date: 09/21/2016 9:05:00 AMCompleted Date: 09/21/2016 09:04 AMRequesting Provider: SULY SANTOS Attending Provider: SULY SANTOS Report Copy To: Signs & Symptoms: Z96.659 Presence of unspecified artificial knee joint [id number]: AthenaComments: , , , Ordering Provider - SULY SANTOS MD , Rendering Provider - SULY SANTOS MD , Exam: LOWER EXTREMITY JOINT SURVEYAccession #: [id number] LOW ER EXTREMITY JOINT SURVEY 09/21/2016 9:04 [...] knees. Electronically signed by:Donald Karimi. Transcribed by: [email or web address], User Resident: Electronically Signed by: DONALD KARIMI @ 09/21/2016 11:55 AM Normal [facility] Comment on above: Order Comment: , , = ========= , Ordering Provider - SULY SANTOS MD , Rendering Provider - SULY SANTOS MD , Vital Signs Date Time Vital Sign Value Performing Clinician Facility 11-21-2024 16:57-0400 Body height 162.56 cm Lex Martinez MD Work Phone: [facility] 11-21-2024 16:57-0400 Body mass index (BMI) [Ratio] 37 kg/m2 Lex Martinez MD Work Phone: [facility] 11-21-2024 16:57-0400 Body temperature 97.8 [degF] Lex Martinez MD Work Phone: [facility] 11-21-2024 16:57-0400 Body weight 98.03 kg Lex Martinez MD Work Phone: [facility] 11-21-2024 16:57-0400 Diastolic blood pressure 88 mm[Hg] Lex Martinez MD Work Phone: [facility] 11-21-2024 16:57-0400 Heart rate 99 /min Lex Martinez MD Work Phone: [facility] 11-21-2024 16:57-0400 Respiratory rate 18 /min Lex Martinez MD Work Phone: [facility] 11-21-2024 16:57-0400 SaO2% (BldA) [Mass fraction] 96 % Lex Martinez MD Work Phone: [facility] 11-21-2024 16:57-0400 Systolic blood pressure 142 mm[Hg] Lex Martinez MD Work Phone: [facility] 11-08-2024 14:100400 Body height 160 cm Daniel Wolf MD Work Phone: [facility] 11-08-2024 14:100400 Body mass index (BMI) [Ratio] 36.85 kg/m2 Daniel Wolf MD Work Phone: [facility] 11-08-2024 14:[id number] Body weight 94.35 kg Daniel Wolf MD Work Phone: [facility] 11-06-2024 14:040 Body height 162.56 cm Lex Martinez MD Work Phone: [facility] 11-06-2024 14:09-0400 Body mass index (BMI) [Ratio] 37.1 kg/m2 Lex Martinez MD Work Phone: [facility] 11-06-2024 14:090400 Body temperature 98.6 [degF] Lex Martinez MD Work Phone: [facility] 11-06-2024 14:090400 Body weight 98.2 kg Lex Martinez MD Work Phone: [facility] 11-06-2024 14:09-0400 Diastolic blood pressure 84 mm[Hg] Lex Martinez MD Work Phone: [facility] 11-06-2024 14:09-0400 Heart rate 115 /min Lex Martinez MD Work Phone: [facility] 11-06-2024 14:090400 Heart rate 86 /min Lex Martinez MD Work Phone: [facility] 11-06-2024 14:09-0400 Respiratory rate 18 /min Lex Martinez MD Work Phone: [facility] 11-06-2024 14:09-0400 SaO2% (BldA) [Mass fraction] 95 % Lex Martinez MD Work Phone: [facility] 11-06-2024 14:09-040 Systolic blood pressure 118 mm[Hg] Lex Martinez MD Work Phone: [facility] 10-16-2024 14:22-0400 Body height 160.7 cm Carlos Baer DPM Work Phone: [facility] 10-16-2024 14:22-0400 Body mass index (BMI) [Ratio] 37.26 kg/m2 Carlos Baer DPM Work Phone: [facility] 10-16-2024 14:040 Body weight 96.16 kg Carlos Baer DPM Work Phone: [facility] 09-04-2024 [id number] Body height 162.56 cm Lex Martinez MD Work Phone: [facility] 09-04-2024 14:17-0400 Body mass index (BMI) [Ratio] 36.3 kg/m2 Lex Martinez MD Work Phone: [facility] 09-04-2024 [id number] Body weight 96 kg Lex Martinez MD Work Phone: [facility] 09-04-2024 14:17-0400 Diastolic blood pressure 84 mm[Hg] Lex Martinez MD Work Phone: [facility] 09-04-2024 14:17-0400 Heart rate 83 /min Lex Martinez MD Work Phone: [facility] 09-04-2024 14:17-0400 Respiratory rate 18 /min Lex Martinez MD Work Phone: [facility] 09-04-2024 14:17-0400 SaO2% (BldA) [Mass fraction] 100 % Lex Martinez MD Work Phone: [facility] 09-04-2024 14:17-0400 Systolic blood pressure 146 mm[Hg] Lex Martinez MD Work Phone: [facility] 08-22-2024 13:23-0400 Body mass index (BMI) [Ratio] 37.26 kg/m2 Dana Willie [employer] Work Phone: [facility] 08-22-2024 13:23-0400 Body temperature 97.81 [degF] Dana Willie [employer] Work Phone: [facility] 08-22-2024 13:23-0400 Body weight 96.16 kg Dana Willie [employer] Work Phone: [facility] 08-22-2024 13:23-0400 Diastolic blood pressure 84 mm[Hg] Dana Willie [employer] Work Phone: [facility] 08-22-2024 13:23-0400 Heart rate 90 /min Dana Arianz [employer] Work Phone: [facility] 08-22-2024 13:23-0400 Respiratory rate 18 /min Danataco Knoxmilesz [employer] Work Phone: [facility] 08-22-2024 13:23-0400 SaO2% (BldA) [Mass fraction] 97 % Dana Willie [employer] Work Phone: [facility] 08-22-2024 13:23-0400 Systolic blood pressure 140 mm[Hg] Dana Willie [employer] Work Phone: [facility] 07-16-2024 14:27-0400 Body height 160.7 cm Carlos Baer DPM Work Phone: [facility] 07-16-2024 14:27-0400 Body mass index (BMI) [Ratio] 37.08 kg/m2 Carlos Baer DPM Work Phone: [facility] 07-16-2024 14:27-0400 Body weight 95.71 kg Carlos Baer DPM Work Phone: [facility] 07-12-2024 13:44-0400 Body mass index (BMI) [Ratio] 36.86 kg/m2 Dana Garciapatricia [employer] Work Phone: [facility] 07-12-2024 13:44-0400 Body temperature 98.71 [degF] Dana Knoxvitaly [employer] Work Phone: [facility] 07-12-2024 13:44-0400 Body weight 95.89 kg Dana Garciapatricia [employer] Work Phone: [facility] 07-12-2024 13:44-0400 Diastolic blood pressure 90 mm[Hg] Dana Garciapatricia [employer] Work Phone: [facility] 07-12-2024 13:44-0400 Heart rate 91 /min Dana Garciapatricia [employer] Work Phone: [facility] 07-12-2024 13:44-0400 Respiratory rate 18 /min Dana Garciapatricia [employer] Work Phone: [facility] 07-12-2024 13:44-0400 SaO2% (BldA) [Mass fraction] 93 % Dana Garciapatricia [employer] Work Phone: [facility] 07-12-2024 13:44-0400 Systolic blood pressure 142 mm[Hg] Dana Garciapatricia [employer] Work Phone: [facility] 06-28-2024 10:12-0400 Body height 160 cm Dainel Wolf MD Work Phone: [facility] 06-28-2024 10:12-0400 Body mass index (BMI) [Ratio] 36.85 kg/m2 Daniel Wolf MD Work Phone: [facility] 06-28-2024 10:12-0400 Body weight 94.35 kg Daniel Wolf MD Work Phone: [facility] 06-12-2024 13:57-0400 Body height 162.56 cm [facility] 06-12-2024 13:57-0400 Body mass index (BMI) [Ratio] 36 kg/m2 [facility] 06-12-2024 13:57-0400 Body temperature 96.5 [degF] [facility] 06-12-2024 13:57-0400 Body weight 95.25 kg [facility] 06-12-2024 13:57-0400 Diastolic blood pressure 82 mm[Hg] [facility] 06-12-2024 13:57-0400 Heart rate 90 /min [facility] 06-12-2024 13:57-0400 Respiratory rate 18 /min [facility] 06-12-2024 13:57-0400 SaO2% (BldA) [Mass fraction] 97 % [facility] 06-12-2024 13:57-0400 Systolic blood pressure 146 mm[Hg] [facility] 06-07-2024 09:04-0400 Body height 160 cm Daniel Wolf MD Work Phone: [facility] 06-07-2024 09:04-0400 Body mass index (BMI) [Ratio] 36.85 kg/m2 Daniel Wolf MD Work Phone: [facility] 06-07-2024 09:04-0400 Body weight 94.35 kg Daniel Wolf MD Work Phone: [facility] 05-30-2024 14:40-0400 Body mass index (BMI) [Ratio] 36.79 kg/m2 Dana Tapia [employer] Work Phone: [facility] 05-30-2024 14:40-0400 Body temperature 98.1 [degF] Dana Tapia [employer] Work Phone: [facility] 05-30-2024 14:40-0400 Body weight 95.71 kg Dana Tapia [employer] Work Phone: [facility] 05-30-2024 14:40-0400 Diastolic blood pressure 82 mm[Hg] Dana Tapia [employer] Work Phone: [facility] 05-30-2024 14:40-0400 Heart rate 66 /min Dana Arianz [employer] Work Phone: [facility] 05-30-2024 14:40-0400 Respiratory rate 18 /min Dana Lisettemilesz [employer] Work Phone: [facility] 05-30-2024 14:40-0400 SaO2% (BldA) [Mass fraction] 99 % Dana Arianz [employer] Work Phone: [facility] 05-30-2024 14:40-0400 Systolic blood pressure 160 mm[Hg] Dana Arianz [employer] Work Phone: [facility] 05-17-2024 10:45-0400 Body height 160 cm Daniel Wolf MD Work Phone: [facility] 05-17-2024 10:45-0400 Body mass index (BMI) [Ratio] 36.85 kg/m2 Daniel Wolf MD Work Phone: [facility] 05-17-2024 10:45-0400 Body weight 94.35 kg Daniel Wolf MD Work Phone: [facility] 05-07-2024 16:26-0400 Body height 161.3 cm Dana Willie [employer] Work Phone: [facility] 05-07-2024 16:26-0400 Body mass index (BMI) [Ratio] 36.76 kg/m2 Dana Joseholz [employer] Work Phone: [facility] 05-07-2024 16:26-0400 Body temperature 97.81 [degF] Dana Arianz [employer] Work Phone: [facility] 05-07-2024 16:26-0400 Body weight 95.62 kg Dana Arianz [employer] Work Phone: [facility] 05-07-2024 16:26-0400 Diastolic blood pressure 76 mm[Hg] Dana Arianz [employer] Work Phone: [facility] 05-07-2024 16:26-0400 Heart rate 85 /min Dana Garciapatricia [employer] Work Phone: [facility] 05-07-2024 16:26-0400 Respiratory rate 18 /min Dana Garciapatricia [employer] Work Phone: [facility] 05-07-2024 16:26-0400 SaO2% (BldA) [Mass fraction] 98 % Dana Tapia [employer] Work Phone: [facility] 05-07-2024 16:26-0400 Systolic blood pressure 128 mm[Hg] Dana Garciapatricia [employer] Work Phone: [facility] 04-19-2024 09:22-0500 Body height 160 cm Daniel Wolf MD Work Phone: [facility] 04-19-2024 09:22-0500 Body mass index (BMI) [Ratio] 36.85 kg/m2 Daniel Wolf MD Work Phone: [facility] 04-19-2024 09:22-0500 Body weight 94.35 kg Daniel Wolf MD Work Phone: [facility] 04-17-2024 14:03-0500 Body height 161.3 cm Carlos Baer DPM Work Phone: [facility] 04-17-2024 14:03-0500 Body mass index (BMI) [Ratio] 36.27 kg/m2 Carlos Baer DPM Work Phone: [facility] 04-17-2024 14:03-0500 Body weight 94.35 kg Carlos Baer DPM Work Phone: [facility] 03-21-2024 13:45-0500 Body height 161 cm Bph 1 [facility] 03-21-2024 13:45-0500 Body mass index (BMI) [Ratio] 36.46 kg/m2 Bph 1 [facility] 03-21-2024 13:45-0500 Body temperature 97.9 [degF] Bph 1 [facility] 03-21-2024 13:45-0500 Body weight 94.5 kg Bph 1 [facility] 03-21-2024 13:45-0500 Diastolic blood pressure 74 mm[Hg] Bph 1 [facility] 03-21-2024 13:45-0500 Heart rate 101 /min Bph 1 [facility] 03-21-2024 13:45-0500 Respiratory rate 20 /min Bph 1 [facility] 03-21-2024 13:45-0500 SaO2% (BldA) [Mass fraction] 98 % Bph 1 [facility] 03-21-2024 13:45-0500 Systolic blood pressure 156 mm[Hg] Bph 1 [facility] 03-19-2024 14:38-0500 Body mass index (BMI) [Ratio] 36.34 kg/m2 Dana Tapia [employer] Work Phone: [facility] 03-19-2024 14:38-0500 Body temperature 98.49 [degF] Dana Tapia [employer] Work Phone: [facility] 03-19-2024 14:38-0500 Body weight 94.53 kg Dana Tapia [employer] Work Phone: [facility] 03-19-2024 14:38-0500 Diastolic blood pressure 80 mm[Hg] Dana Tapia [employer] Work Phone: [facility] 03-19-2024 14:38-0500 Heart rate 90 /min Dana Willie [employer] Work Phone: [facility] 03-19-2024 14:38-0500 Respiratory rate 18 /min Danataco Tapia [employer] Work Phone: [facility] 03-19-2024 14:38-0500 SaO2% (BldA) [Mass fraction] 99 % Dana Tapia [employer] Work Phone: [facility] 03-19-2024 14:38-0500 Systolic blood pressure 140 mm[Hg] Dana Tapia [employer] Work Phone: [facility] 03-06-2024 14:43-0500 Diastolic blood pressure 76 mm[Hg] Lex Martinez MD Work Phone: [facility] 03-06-2024 14:43-0500 Systolic blood pressure 154 mm[Hg] Lex Martinez MD Work Phone: [facility] 03-06-2024 14:22-0500 Body height 162.56 cm Lex Martinez MD Work Phone: [facility] 03-06-2024 14:22-0500 Body mass index (BMI) [Ratio] 35.2 kg/m2 Lex Martinez MD Work Phone: [facility] 03-06-2024 14:22-0500 Body weight 93.04 kg Lex Martinez MD Work Phone: [facility] 03-06-2024 14:22-0500 Heart rate 86 /min Lex Martinez MD Work Phone: [facility] 03-06-2024 14:22-0500 Respiratory rate 16 /min Lex Martinez MD Work Phone: [facility] 03-06-2024 14:22-0500 SaO2% (BldA) [Mass fraction] 93 % Lex Martinez MD Work Phone: [facility] 03-05-2024 14:02-0500 Body height 161.3 cm Dana Tapia [employer] Work Phone: [facility] 03-05-2024 14:02-0500 Body mass index (BMI) [Ratio] 35.71 kg/m2 Dana Tapia [employer] Work Phone: [facility] 03-05-2024 14:02-0500 Body temperature 98.49 [degF] Dana Tapia [employer] Work Phone: [facility] 03-05-2024 14:02-0500 Body weight 92.9 kg Dana Tapia [employer] Work Phone: [facility] 03-05-2024 14:02-0500 Diastolic blood pressure 84 mm[Hg] Dana Joseholz [employer] Work Phone: [facility] 03-05-2024 14:02-0500 Heart rate 91 /min Dana Joseholz [employer] Work Phone: [facility] 03-05-2024 14:02-0500 Respiratory rate 18 /min Dana Joseholz [employer] Work Phone: [facility] 03-05-2024 14:02-0500 SaO2% (BldA) [Mass fraction] 94 % Danataco Donz [employer] Work Phone: [facility] 03-05-2024 14:02-0500 Systolic blood pressure 130 mm[Hg] Danataco Garciaholz [employer] Work Phone: [facility] 02-27-2024 18:42-0500 Body height 161.3 cm Dana Joseholz [employer] Work Phone: [facility] 02-27-2024 18:42-0500 Body mass index (BMI) [Ratio] 35.22 kg/m2 Danataco Garciaholz [employer] Work Phone: [facility] 02-27-2024 18:42-0500 Body temperature 97.81 [degF] Danataco Garciaholz [employer] Work Phone: [facility] 02-27-2024 18:42-0500 Body weight 91.63 kg Dana Joseholz [employer] Work Phone: [facility] 02-27-2024 18:42-0500 Diastolic blood pressure 80 mm[Hg] Dana Joseholz [employer] Work Phone: [facility] 02-27-2024 18:42-0500 Heart rate 69 /min Dana Joseholz [employer] Work Phone: [facility] 02-27-2024 18:42-0500 Respiratory rate 18 /min Dana Aichholz [employer] Work Phone: [facility] 02-27-2024 18:42-0500 SaO2% (BldA) [Mass fraction] 93 % Dana Aichholz [employer] Work Phone: [facility] 02-27-2024 18:42-0500 Systolic blood pressure 144 mm[Hg] Dana Aichholz [employer] Work Phone: [facility] 02-06-2024 16:02-0500 Body mass index (BMI) [Ratio] 35.36 kg/m2 Dana Aichholz [employer] Work Phone: [facility] 02-06-2024 16:02-0500 Body temperature 98.8 [degF] Dana Aichholz [employer] Work Phone: [facility] 02-06-2024 16:02-0500 Body weight 91.99 kg Dana Aichholz [employer] Work Phone: [facility] 02-06-2024 16:02-0500 Diastolic blood pressure 78 mm[Hg] Dana Aichholz [employer] Work Phone: [facility] 02-06-2024 16:02-0500 Heart rate 85 /min Dana Aichholz [employer] Work Phone: [facility] 02-06-2024 16:02-0500 Respiratory rate 19 /min Dana Aichholz [employer] Work Phone: [facility] 02-06-2024 16:02-0500 SaO2% (BldA) [Mass fraction] 98 % Dana Aichholz [employer] Work Phone: [facility] 02-06-2024 16:02-0500 Systolic blood pressure 138 mm[Hg] Dana Aichholz [employer] Work Phone: [facility] 01-16-2024 14:14-0500 Body height 161.3 cm Carlos CRUZ Work Phone: [facility] 01-16-2024 14:14-0500 Body mass index (BMI) [Ratio] 35.22 kg/m2 Carlos Baer DPM Work Phone: [facility] 01-16-2024 14:14-0500 Body weight 91.63 kg Carlos Baer DPM Work Phone: [facility] 01-11-2024 14:20-0500 Body height 161.3 cm Daan Arianz [employer] Work Phone: [facility] 01-11-2024 14:20-0500 Body mass index (BMI) [Ratio] 35.33 kg/m2 Dana Aichholz [employer] Work Phone: [facility] 01-11-2024 14:20-0500 Body temperature 98.49 [degF] Dana Lisettehholz [employer] Work Phone: [facility] 01-11-2024 14:20-0500 Body weight 91.9 kg Dana Aichholz [employer] Work Phone: [facility] 01-11-2024 14:20-0500 Diastolic blood pressure 86 mm[Hg] Dana Aichholz [employer] Work Phone: [facility] 01-11-2024 14:20-0500 Heart rate 72 /min Dana Aichholz [employer] Work Phone: [facility] 01-11-2024 14:20-0500 Respiratory rate 18 /min Dana Aichholz [employer] Work Phone: [facility] 01-11-2024 14:20-0500 SaO2% (BldA) [Mass fraction] 99 % Dana Aichholz [employer] Work Phone: [facility] 01-11-2024 14:20-0500 Systolic blood pressure 118 mm[Hg] Dana Aichholz [employer] Work Phone: [facility] 12-12-2023 09:47-0400 Body height 162.56 cm [facility] 12-12-2023 09:47-0400 Body mass index (BMI) [Ratio] 34.7 kg/m2 [facility] 12-12-2023 09:47-0400 Body temperature 96.7 [degF] [facility] 12-12-2023 09:47-0400 Body weight 91.85 kg [facility] 12-12-2023 09:47-0400 Diastolic blood pressure 84 mm[Hg] [facility] 12-12-2023 09:47-0400 Heart rate 76 /min [facility] 12-12-2023 09:47-0400 Respiratory rate 16 /min [facility] 12-12-2023 09:47-0400 SaO2% (BldA) [Mass fraction] 97 % [facility] 12-12-2023 09:47-0400 Systolic blood pressure 146 mm[Hg] [facility] 11-28-2023 13:50-0400 Body height 161.3 cm Dana Tapia [employer] Work Phone: [facility] 11-28-2023 13:50-0400 Body mass index (BMI) [Ratio] 35.4 kg/m2 Dana Willie [employer] Work Phone: [facility] 11-28-2023 13:50-0400 Body temperature 98.49 [degF] Dana Willie [employer] Work Phone: [facility] 11-28-2023 13:50-0400 Body weight 92.08 kg Dana Willie [employer] Work Phone: [facility] 11-28-2023 13:50-0400 Diastolic blood pressure 74 mm[Hg] Dana Willie [employer] Work Phone: [facility] 11-28-2023 13:50-0400 Heart rate 63 /min Dana Willie [employer] Work Phone: [facility] 11-28-2023 13:50-0400 Respiratory rate 19 /min Dana Willie [employer] Work Phone: [facility] 11-28-2023 13:50-0400 SaO2% (BldA) [Mass fraction] 96 % Dana Garciapatricia [employer] Work Phone: [facility] 11-28-2023 13:50-0400 Systolic blood pressure 122 mm[Hg] Dana Garciapatricia [employer] Work Phone: [facility] 10-04-2023 13:52-0400 Body height 162.56 cm [facility] 10-04-2023 13:52-0400 Body mass index (BMI) [Ratio] 34.5 kg/m2 [facility] 10-04-2023 13:52-0400 Body weight 91.31 kg [facility] 10-04-2023 13:52-0400 Diastolic blood pressure 72 mm[Hg] [facility] 10-04-2023 13:52-0400 Heart rate 72 /min [facility] 10-04-2023 13:52-0400 Respiratory rate 18 /min [facility] 10-04-2023 13:52-0400 SaO2% (BldA) [Mass fraction] 95 % [facility] 10-04-2023 13:52-0400 Systolic blood pressure 126 mm[Hg] [facility] 06-13-2023 14:04-0400 Body height 162.56 cm PHYSICIAN NO [facility] 06-13-2023 14:04-0400 Body mass index (BMI) [Ratio] 34.9 kg/m2 PHYSICIAN NO [facility] 06-13-2023 14:04-0400 Body temperature 97.2 [degF] PHYSICIAN NO [facility] 06-13-2023 14:04-0400 Body weight 92.16 kg PHYSICIAN NO [facility] 06-13-2023 14:04-0400 Diastolic blood pressure 77 mm[Hg] PHYSICIAN NO [facility] 06-13-2023 14:04-0400 Heart rate 89 /min PHYSICIAN NO [facility] 06-13-2023 14:04-0400 Respiratory rate 16 /min PHYSICIAN NO [facility] 06-13-2023 14:04-0400 SaO2% (BldA) [Mass fraction] 99 % PHYSICIAN NO [facility] 06-13-2023 14:04-0400 Systolic blood pressure 128 mm[Hg] PHYSICIAN NO [facility] 04-13-2023 14:11-0500 Body height 161.3 cm Carlos Baer DPM Work Phone: [facility] 04-13-2023 14:11-0500 Body mass index (BMI) [Ratio] 35.57 kg/m2 Carlos Baer DPM Work Phone: [facility] 04-13-2023 14:11-0500 Body weight 92.53 kg Carlos Baer DPM Work Phone: [facility] 03-31-2023 14:15-0500 Body height 162.56 cm PHYSICIAN NO [facility] 03-31-2023 14:15-0500 Body weight 93.53 kg PHYSICIAN NO [facility] 03-31-2023 14:15-0500 Diastolic blood pressure 70 mm[Hg] PHYSICIAN NO [facility] 03-31-2023 14:15-0500 Systolic blood pressure 120 mm[Hg] PHYSICIAN NO [facility] 12-14-2022 14:40-0400 Body height 162.56 cm Eboni Buck Other [facility] Other 12-14-2022 14:40-0400 Body mass index (BMI) [Ratio] 37.62 kg/m2 Eboni Buck Other [facility] Other 12-14-2022 14:40-0400 Body temperature 96.3 [degF] Eboni Buck Other [facility] Other 12-14-2022 14:40-0400 Body weight 99.43 kg Eboni Buck Other [facility] Other 12-14-2022 14:40-0400 Diastolic blood pressure 80 mm[Hg] Eboni Buck Other [facility] Other 12-14-2022 14:40-0400 Respiratory rate 18 /min Eboni Buck Other [facility] Other 12-14-2022 14:40-0400 SaO2% (BldA) [Mass fraction] 98 % Eboni Buck Other [facility] Other 12-14-2022 14:40-0400 Systolic blood pressure 120 mm[Hg] Eboni Buck Other [facility] Other 09-29-2022 14:45-0400 Body height 162.56 cm Tondra Mapus Other [facility] Other 09-29-2022 14:45-0400 Body mass index (BMI) [Ratio] 37.38 kg/m2 Tondra Mapus Other [facility] Other 09-29-2022 14:45-0400 Body weight 98.79 kg Tondra Mapus Other [facility] Other 09-29-2022 14:45-0400 Diastolic blood pressure 85 mm[Hg] Tondra Mapus Other [facility] Other 09-29-2022 14:45-0400 Respiratory rate 18 /min Tondra Mapus Other [facility] Other 09-29-2022 14:45-0400 SaO2% (BldA) [Mass fraction] 99 % Tondra Mapus Other [facility] Other 09-29-2022 14:45-0400 Systolic blood pressure 149 mm[Hg] Tondra Mapus Other [facility] Other 06-08-2022 15:00-0400 Body height 162.56 cm Eboni Buck Other [facility] Other 06-08-2022 15:00-0400 Body mass index (BMI) [Ratio] 37.83 kg/m2 Eboni Buck Other [facility] Other 06-08-2022 15:00-0400 Body weight 99.97 kg Eboni Buck Other [facility] Other 06-08-2022 15:00-0400 Diastolic blood pressure 78 mm[Hg] Eboni Buck Other [facility] Other 06-08-2022 15:00-0400 Respiratory rate 18 /min Eboni Buck Other [facility] Other 06-08-2022 15:00-0400 SaO2% (BldA) [Mass fraction] 97 % Eboni Buck Other [facility] Other 06-08-2022 15:00-0400 Systolic blood pressure 136 mm[Hg] Eboni Buck Other [facility] Other 03-31-2022 16:45-0500 Body height 162.56 cm Tondra Mapus Other [facility] Other 03-31-2022 16:45-0500 Body mass index (BMI) [Ratio] 37.96 kg/m2 Tondra Mapus Other [facility] Other 03-31-2022 16:45-0500 Body weight 100.34 kg Tondra Mapus Other [facility] Other 03-31-2022 16:45-0500 Diastolic blood pressure 83 mm[Hg] Tondra Mapus Other [facility] Other 03-31-2022 16:45-0500 Respiratory rate 18 /min Tondra Mapus Other [facility] Other 03-31-2022 16:45-0500 SaO2% (BldA) [Mass fraction] 97 % Tondra Mapus Other [facility] Other 03-31-2022 16:45-0500 Systolic blood pressure 151 mm[Hg] Tondra Mapus Other [facility] Other 12-21-2021 15:00-0400 Body height 162.56 cm Tondra Mapus Other [facility] Other 12-21-2021 15:00-0400 Body mass index (BMI) [Ratio] 37.76 kg/m2 Tondra Mapus Other [facility] Other 12-21-2021 15:00-0400 Body weight 99.79 kg Tondra Mapus Other [facility] Other 12-21-2021 15:00-0400 Diastolic blood pressure 81 mm[Hg] Tondra Mapus Other [facility] Other 12-21-2021 15:00-0400 Respiratory rate 20 /min Tondra Mapus Other [facility] Other 12-21-2021 15:00-0400 SaO2% (BldA) [Mass fraction] 99 % Tondra Mapus Other [facility] Other 12-21-2021 15:00-0400 Systolic blood pressure 141 mm[Hg] Tondra Mapus Other [facility] Other 12-14-2021 15:20-0400 Body height 162.56 cm Eboni Buck Other [facility] Other 12-14-2021 15:20-0400 Body mass index (BMI) [Ratio] 37.66 kg/m2 Eboni Buck Other [facility] Other 12-14-2021 15:20-0400 Body temperature 96.7 [degF] Eboni Buck Other [facility] Other 12-14-2021 15:20-0400 Body weight 99.52 kg Eboni Buck Other [facility] Other 12-14-2021 15:20-0400 Diastolic blood pressure 87 mm[Hg] Eboni Buck Other [facility] Other 12-14-2021 15:20-0400 Respiratory rate 18 /min Eboni Buck Other [facility] Other 12-14-2021 15:20-0400 SaO2% (BldA) [Mass fraction] 96 % Eboni Buck Other [facility] Other 12-14-2021 15:20-0400 Systolic blood pressure 153 mm[Hg] Eboni White Other [facility] Other 09-23-2021 10:55-0400 Body height 162.56 cm Kristin Janae Other [facility] Other 09-23-2021 10:55-0400 Body mass index (BMI) [Ratio] 37.24 kg/m2 Kristin Janae Other [facility] Other 09-23-2021 10:55-0400 Body temperature 99.2 [degF] Kristin Janae Other [facility] Other 09-23-2021 10:55-0400 Body weight 98.43 kg Kristin Janae Other [facility] Other 09-23-2021 10:55-0400 Diastolic blood pressure 74 mm[Hg] Kristin Janae Other [facility] Other 09-23-2021 10:55-0400 Respiratory rate 18 /min Kristin Janae Other [facility] Other 09-23-2021 10:55-0400 SaO2% (BldA) [Mass fraction] 98 % Kristin Janae Other [facility] Other 09-23-2021 10:55-0400 Systolic blood pressure 129 mm[Hg] Kristin Janae Other [facility] Other 06-23-2021 15:30-0400 Body height 162.56 cm Tondra Mapus Other [facility] Other 06-23-2021 15:30-0400 Body mass index (BMI) [Ratio] 37.59 kg/m2 Tondra Mapus Other [facility] Other 06-23-2021 15:30-0400 Body weight 99.34 kg Tondra Mapus Other [facility] Other 06-23-2021 15:30-0400 Diastolic blood pressure 76 mm[Hg] Tondra Mapus Other [facility] Other 06-23-2021 15:30-0400 Respiratory rate 16 /min Tondra Mapus Other [facility] Other 06-23-2021 15:30-0400 SaO2% (BldA) [Mass fraction] 99 % Tondra Mapus Other [facility] Other 06-23-2021 15:30-0400 Systolic blood pressure 121 mm[Hg] Tondra Mapus Other [facility] Other 06-17-2021 15:00-0400 Body height 162.56 cm Eboni Buck Other [facility] Other 06-17-2021 15:00-0400 Body mass index (BMI) [Ratio] 37.59 kg/m2 Eboni Buck Other [facility] Other 06-17-2021 15:00-0400 Body temperature 97.2 [degF] Eboni Buck Other [facility] Other 06-17-2021 15:00-0400 Body weight 99.34 kg Eboni Buck Other [facility] Other 06-17-2021 15:00-0400 Diastolic blood pressure 81 mm[Hg] Eboni Buck Other [facility] Other 06-17-2021 15:00-0400 Respiratory rate 18 /min Eboni Buck Other [facility] Other 06-17-2021 15:00-0400 SaO2% (BldA) [Mass fraction] 95 % Eboni Buck Other [facility] Other 06-17-2021 15:00-0400 Systolic blood pressure 137 mm[Hg] Eboni Buck Other [facility] Other 12-23-2020 14:40-0400 Body height 162.56 cm Eboni Buck Other [facility] Other 12-23-2020 14:40-0400 Body mass index (BMI) [Ratio] 38.21 kg/m2 Eboni Buck Other [facility] Other 12-23-2020 14:40-0400 Body temperature 97.3 [degF] Eboni Buck Other [facility] Other 12-23-2020 14:40-0400 Body weight 100.97 kg Eboni Buck Other [facility] Other 12-23-2020 14:40-0400 Diastolic blood pressure 83 mm[Hg] Eboni Buck Other [facility] Other 12-23-2020 14:40-0400 Respiratory rate 18 /min Eboni Buck Other [facility] Other 12-23-2020 14:40-0400 SaO2% (BldA) [Mass fraction] 93 % Eboni Buck Other [facility] Other 12-23-2020 14:40-0400 Systolic blood pressure 127 mm[Hg] Eboni Buck Other [facility] Other 12-17-2020 15:15-0400 Body height 162.56 cm Tondra Mapus Other [facility] Other 12-17-2020 15:15-0400 Body mass index (BMI) [Ratio] 37.76 kg/m2 Tondra Mapus Other [facility] Other 12-17-2020 15:15-0400 Body weight 99.79 kg Tondra Mapus Other [facility] Other 12-17-2020 15:15-0400 Diastolic blood pressure 80 mm[Hg] Tondra Mapus Other [facility] Other 12-17-2020 15:15-0400 Respiratory rate 20 /min Tondra Mapus Other [facility] Other 12-17-2020 15:15-0400 SaO2% (BldA) [Mass fraction] 97 % Tondra Mapus Other [facility] Other 12-17-2020 15:15-0400 Systolic blood pressure 133 mm[Hg] Tondra Mapus Other [facility] [employer] Other Encounters Encounter Date Encounter Type Care Provider Facility Start: 11-21-2024 End: 11-21-2024 ambulatory Lex Martinez MD Work Phone: [facility] Work Phone: Start: 11-21-2024 End: 11-21-2024 Patient encounter procedure Dana Tapia [facility] Work Phone: Start: 11-08-2024 End: 11-08-2024 Office outpatient visit 15 minutes Daniel Wolf MD [facility] Comment on above: S/P reverse total sh oulder arthroplasty, right (Primary Dx) Start: 11-08-2024 End: 11-08-2024 Orders Only Michell Woodruff MA [facility] Comment on above: S/P reverse total sh oulder arthroplasty, right (Primary Dx) Start: 11-07-2024 End: 11-07-2024 Telephone encounter Andrea Dubose [facility] Start: 11-06-2024 End: 11-06-2024 ambulatory Lex Martinez MD Work Phone: [facility] Work Phone: Start: 11-06-2024 End: 11-06-2024 Patient encounter procedure Dana Tapia [facility] Work Phone: Start: 11-06-2024 Patient encounter procedure Lex Martinez MD Work Phone: [facility] Start: 10-16-2024 End: 10-16-2024 Patient encounter procedure Carlos Baer DPTamara Work Phone: [facility] Comment on above: Dermatophytosis of n ail (Primary Dx); Dystrophic nail; Pain around toenail, right foot; Pain around toenail, left foot Start: 10-16-2024 End: 10-16-2024 ambulatory CARLOS BAER Not Available Start: 10-16-2024 End: 10-16-2024 Bamboo flowsheet Carlos Baer DPM Work Phone: [facility] Start: 10-16-2024 End: 10-16-2024 Bamboo flowsheet Carlos Baer DPM Work Phone: [facility] Start: 09-04-2024 End: 09-04-2024 ambulatory Lex Martinez MD Work Phone: [facility] Work Phone: Start: 09-04-2024 End: 09-04-2024 Patient encounter procedure Ericktaco Pires Sadaf [employer] Work Phone: Start: 08-22-2024 End: 08-22-2024 Bamboo flowsheet Dana Tapia [employer] Work Phone: [facility] Start: 08-22-2024 End: 08-22-2024 Bamboo flowsheet Dana Tapia [employer] Work Phone: [facility] Start: 08-22-2024 End: 08-22-2024 Office outpatient visit 15 minutes Dana Tapia [employer] Work Phone: [facility] Comment on above: ODALYS (generalized anx iety disorder) (Primary Dx); Class 2 severe obesity due to excess calories with serious comorbidity and body mass index (BMI) of 36.0 to 36.9 in adult ([facility]); Fibromyalgia; 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 elsewhere ([facility]) Start: 08-22-2024 End: 08-22-2024 ambulatory DANA TAPIA Not Available Start: 07-16-2024 End: 07-16-2024 Patient encounter procedure Carlos Baer DPM Work Phone: [facility] Comment on above: Dermatophytosis of n ail (Primary Dx); Dystrophic nail; Pain around toenail, right foot; Pain around toenail, left foot Start: 07-16-2024 End: 07-16-2024 ambulatory CARLOS BAER Not Available Start: 07-16-2024 End: 07-16-2024 Bamboo flowsheet Carlos Baer DPM Work Phone: [facility] Start: 07-16-2024 End: 07-16-2024 Bamboo flowsheet Carlos Baer DPM Work Phone: [facility] Start: 07-12-2024 End: 07-12-2024 Bamboo flowsheet Dana Tapia OTR [employer]IVER Work Phone: [facility] Start: 07-12-2024 End: 07-12-2024 Bamboo flowsheet Dana Tapia OTR [employer] TR[employer] DRIVER Work Phone: [facility] Start: 07-12-2024 End: 07-12-2024 Office outpatient visit 25 minutes Dana Tapia OTR [employer] TRUCK DRIVER Work Phone: [facility] Comment on above: ODALYS (generalized anx iety disorder) ([facility]) (Primary Dx); Class 2 severe obesity due to excess calories with serious comorbidity and body mass index (BMI) of 36.0 to 36.9 in adult ([facility]); Back pain of lumbar region with sciatica; Age-related osteoporosis without current pathological fracture ([facility]); Mixed hyperlipidemia ([facility]); Fibromyalgia; 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 elsewhere ([facility]) Start: 07-12-2024 End: 07-12-2024 ambulatory DANA TAPIA Not Available Start: 07-11-2024 End: 07-11-2024 Telephone encounter [facility]ris [facility] Start: 06-28-2024 End: 06-28-2024 Postop follow up visit related to original px Daniel Wolf MD Work Phone: [facility] Comment on above: S/P reverse total sh oulder arthroplasty, right (Primary Dx) Start: 06-28-2024 End: 06-28-2024 ambulatory [facility] Start: 06-12-2024 End: 06-12-2024 ambulatory [facility] Work Phone: Start: 06-12-2024 End: 06-12-2024 Patient encounter procedure [facility] Work Phone: Start: 06-07-2024 End: 06-07-2024 Postop follow up visit related to original px Daniel Wolf MD Work Phone: [facility] Comment on above: S/P reverse total sh oulder arthroplasty, right (Primary Dx) Start: 06-07-2024 End: 06-07-2024 ambulatory [facility] Start: 06-06-2024 End: 06-06-2024 Refill Dana Tapia OTR [employer] DRIVER Work Phone: [facility] Comment on above: Arthropathy, unspeci fied; Unspecified osteoarthritis, unspecified site Start: 06-05-2024 End: 06-05-2024 Clinisync Result Encounter Generic External Data Provider [facility] External Department Unsolicited Start: 06-05-2024 End: 06-05-2024 Clinisync Result Encounter Generic External Data Provider [facility] External Department Unsolicited Start: 06-05-2024 End: 06-06-2024 ambulatory Mely Grossman [employer] [facility] Comment on above: Acute pain of right shoulder (Primary Dx); Status post reverse total arthroplasty of right shoulder; Shoulder stiffness, right Start: 06-05-2024 Non-patient / Non-visit [facility] Work Phone: Start: 05-31-2024 End: 05-31-2024 ambulatory Jseenia Jorge [employer] Work Phone: [facility] Comment on above: Acute pain of right shoulder (Primary Dx); Status post reverse total arthroplasty of right shoulder; Shoulder stiffness, right Start: 05-30-2024 End: 05-30-2024 Office outpatient visit 15 minutes Dana Tapia [employer] Work Phone: [facility] Comment on above: Back pain of lumbar region with sciatica (Primary Dx); Class 2 severe obesity due to excess calories with serious comorbidity and body mass index (BMI) of 36.0 to 36.9 in adult ([facility]); Essential (primary) hypertension ([facility]); Gastro-esophageal reflux disease without esophagitis; Esophageal reflux Start: 05-30-2024 End: 05-30-2024 ambulatory DANA TAPIA Not Available Start: 05-30-2024 End: 05-30-2024 Bamboo flowsheet Dana Tapia OTR [employer]IVER Work Phone: [facility] Start: 05-30-2024 End: 05-30-2024 Bamboo flowsheet Dana Tapia OTR [employer] Work Phone: [facility] Start: 05-29-2024 End: 05-29-2024 Bamboo flowsheet Jesenia Jorge [employer] Work Phone: [facility] Start: 05-29-2024 End: 05-29-2024 Bamboo flowsheet Jeseniachristina Jorge [employer]TER Work Phone: [facility] Start: 05-29-2024 End: 05-29-2024 ambulatory Jeseniachristina Jorge [employer] Work Phone: [facility] Comment on above: Acute pain of right shoulder (Primary Dx); Status post reverse total arthroplasty of right shoulder; Shoulder stiffness, right Start: 05-27-2024 End: 05-27-2024 Refill Dana Tapia OTR [employer]IVER Work Phone: [facility] Comment on above: Type 2 diabetes ana maría itus with diabetic neuropathy, unspecified ([facility]) Start: 05-24-2024 End: 05-24-2024 Bamboo flowsheet Mely Grossman [employer] [facility] Start: 05-24-2024 End: 05-24-2024 Bamboo flowsheet Mely Grossman [employer] [facility] Start: 05-24-2024 End: 05-24-2024 ambulatory Mely Grossman [employer] [facility] Comment on above: Acute pain of right shoulder (Primary Dx); Status post reverse total arthroplasty of right shoulder Start: 05-22-2024 End: 05-22-2024 ambulatory JESENIA JORGE Not Available Start: 05-17-2024 End: 05-17-2024 ambulatory Mely Grossman [employer] [facility] Comment on above: Acute pain of right shoulder (Primary Dx); Status post reverse total arthroplasty of right shoulder; Shoulder stiffness, right Start: 05-17-2024 End: 05-17-2024 ambulatory DANIEL Kruse [facility] Start: 05-17-2024 End: 05-17-2024 Postop follow up visit related to original px Daniel Wolf MD Work Phone: [facility] Comment on above: S/P reverse total sh oulder arthroplasty, right (Primary Dx) Start: 05-10-2024 End: 05-10-2024 Bamboo flowsheet Jesenia Jorge [employer] Work Phone: [facility] Start: 05-10-2024 End: 05-10-2024 Bamboo flowsheet Jesenia Jorge [employer] Work Phone: [facility] Start: 05-10-2024 End: 05-10-2024 ambulatory Jeseniachristina Jorge [employer] Work Phone: [facility] Comment on [...] End: 05-07-2024 Patient encounter procedure Dana Tapia OTR [employer] Work Phone: [facility] Comment on above: Encounter for subseq uent annual wellness visit (AWV) in Medicare patient (Primary Dx); Type 2 diabetes mellitus with diabetic neuropathy, without long-term current use of insulin ([facility]); Essential (primary) hypertension ([facility]); Hypertensive chronic kidney disease with stage 1 through stage 4 chronic kidney disease, or unspecified chronic kidney disease ([facility]); Gastroesophageal reflux disease without esophagitis; Age-related osteoporosis without current pathological fracture ([facility]); Fibromyalgia; Class 2 severe obesity due to excess calories with serious comorbidity and body mass index (BMI) of 36.0 to 36.9 in adult ([facility]); Type 2 diabetes mellitus without complication, without long-term current use of insulin ([facility]); Mixed hyperlipidemia ([facility]) Start: 05-07-2024 End: 05-07-2024 ambulatory DANA AICHHOLZ Not Available Start: 05-07-2024 End: 05-07-2024 Bamboo flowsheet Danataco Donz OTR [employer] DRIVER Work Phone: [facility] Start: 05-07-2024 End: 05-07-2024 Bamboo flowsheet Danataco Garciaholz OTR [employer]AN [employer] DRIVER Work Phone: [facility] Start: 05-03-2024 End: 05-03-2024 Bamboo flowsgladys Jorge [employer]TER Work Phone: [facility] Start: 05-03-2024 End: 05-03-2024 Bamboo flowsgladys Jorge [employer] Work Phone: [facility] Start: 05-03-2024 End: 05-03-2024 ambulatory Jesenia Jorge [employer] Work Phone: [facility] Comment on above: Acute pain of right shoulder (Primary Dx); Status post reverse total arthroplasty of right shoulder; Shoulder stiffness, right Start: 05-01-2024 End: 05-01-2024 Bamboo flowsgladys Jorge [employer]TER Work Phone: [facility] Start: 05-01-2024 End: 05-01-2024 Bamboo flowsgladys Jorge [employer] C[employer]TER Work Phone: [facility] Start: 05-01-2024 End: 05-01-2024 ambulatory Jesenia Jorge [employer] Work Phone: [facility] Comment on above: Acute pain of right shoulder (Primary Dx); Status post reverse total arthroplasty of right shoulder; Shoulder stiffness, right Start: 04-26-2024 End: 04-26-2024 ambulatory Mely Grossman [employer] [facility] Comment on above: Acute [...] original px Daniel Wolf MD Work Phone: [facility] Comment on above: S/P reverse total sh oulder arthroplasty, right (Primary Dx) Start: 04-19-2024 End: 04-19-20[facility] Start: 04-18-2024 End: 04-18-2024 Orders Only Michell Woodruff MA [facility] Comment on above: S/P reverse total sh oulder arthroplasty, right (Primary Dx) Start: 04-17-2024 End: 04-17-2024 Patient encounter procedure Carlos Baer DPM Work Phone: [facility] Comment on above: Dermatophytosis of n ail (Primary Dx); Dystrophic nail; Pain around toenail, right foot; Pain around toenail, left foot Start: 04-17-2024 End: 04-17-2024 Bamboo flowsheet Carlos Baer DPM Work Phone: [facility] Start: 04-17-2024 End: 04-17-2024 Bamboo flowsheet Carlos Baer DPM Work Phone: [facility] Start: 04-17-2024 End: 04-17-2024 ambulatory CARLOS BAER Not Available Start: 04-04-2024 End: 04-04-2024 Evaluation and management of inpatient [facility] Start: 04-02-2024 End: 04-02-2024 Refill Dana Tapia NP Work Phone: [facility] Comment on above: Fibromyalgia; 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 elsewhere ([facility]); ODALYS (generalized anxiety disorder) ([facility]) Start: 03-21-2024 End: 03-21-2024 Patient encounter procedure [facility] Pre-Admission Testing [address] [place] [address] -Pre Admission Testing Comment on above: Preop testing (Prima ry Dx); Liver disease Start: 03-21-2024 End: 03-21-2024 Patient encounter status [facility] Start: 03-21-2024 ambulatory [facility] Start: 03-21-2024 Encounter for other preprocedural examination [facility] Start: 03-19-2024 End: 03-19-2024 Office outpatient visit 25 minutes Dana Tapia NP Work Phone: [facility] Comment on above: Pre-operative cleara nce (Primary Dx); Class 2 severe obesity due to excess calories with serious comorbidity and body mass index (BMI) of 36.0 to 36.9 in adult ([facility]); Body mass index (BMI) 35.0-35.9, adult; Closed head injury, sequela; Hematoma of frontal scalp, sequela; Age-related osteoporosis without current pathological fracture ([facility]); Essential (primary) hypertension ([facility]); Gastroesophageal reflux disease without esophagitis; Type 2 diabetes mellitus without complication, without long-term current use of insulin ([facility]); Blurry vision, left eye Start: 03-19-2024 End: 03-19-2024 ambulatory DANA AICHHOLZ Not Available Start: 03-19-2024 End: 03-19-2024 Bamboo flowsheet Dana Aichholz OTR [employer]IVER Work Phone: [facility] Start: 03-19-2024 End: 03-19-2024 Bamboo flowsheet Dana Aichholz OTR [employer]AN [employer] DRIVER Work Phone: [facility] Start: 03-19-2024 End: 03-19-2024 Preoperative state Dana Aichholz OTR [employer]AN [employer] TR[employer] DRIVER Work Phone: [facility] Start: 03-13-2024 End: 03-13-2024 Refill Dana Aichholz OTR [employer] DRIVER Work Phone: [facility] Comment on above: Mixed hyperlipidemia ([facility]) Start: 03-06-2024 End: 03-06-2024 ambulatory Lex Martinez MD Work Phone: [facility] Work Phone: Start: 03-06-2024 End: 03-06-2024 Patient encounter procedure Lex Martinez MD Work Phone: [facility] Work Phone: Start: 03-05-2024 End: 03-05-2024 Bamboo flowsheet Dana Aichholz OTR [employer]AN [employer] TR[employer] DRIVER Work Phone: [facility] Start: 03-05-2024 End: 03-05-2024 Bamboo flowsheet Dana Aichholz OTR [employer] DRIVER Work Phone: [facility] Start: 03-05-2024 End: 03-05-2024 Office outpatient visit 15 minutes Dana Aichholz OTR [employer] DRIVER Work Phone: [facility] Comment on [...] eye Start: 03-05-2024 End: 03-05-2024 ambulatory DANA TAPIA Not Available Start: 02-27-2024 End: 02-27-2024 Office outpatient visit 25 minutes Dana Tapia OTR [employer]AN [employer] TR[employer] DRIVER Work Phone: [facility] Comment on above: Hematoma of frontal scalp, subsequent encounter (Primary Dx); Closed head injury, subsequent encounter; Class 2 severe obesity due to excess calories with serious comorbidity and body mass index (BMI) of 36.0 to 36.9 in adult (CMS/HCC); Essential (primary) hypertension (CMS/HCC) Start: 02-27-2024 End: 02-27-2024 ambulatory DANA TAPIA Not Available Start: 02-27-2024 End: 02-27-2024 Bamboo flowsheet Dana Tapia OTR VAN [employer] TRUCK DRIVER Work Phone: [facility] Start: 02-27-2024 End: 02-27-2024 Bamboo flowsheet Dana Tapia OTR VAN [employer] TRUCK DRIVER Work Phone: [facility] Start: 02-20-2024 End: 02-20-2024 Emergency department patient visit DANA TAPIA [facility] Start: 02-20-2024 End: 02-21-2024 Refill Dana Tapia OTR [employer] TR[employer] DRIVER Work Phone: [facility] Comment on above: Fibromyalgia; 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 elsewhere ([facility]); ODALYS (generalized anxiety disorder) ([facility]) Start: 02-10-2024 End: 02-10-2024 Patient encounter procedure Lex Martinez MD Work Phone: [facility] [place] Work Phone: Start: 02-10-2024 End: 02-10-2024 ambulatory Bernardino Talavera Facility:[facility] Start: 02-06-2024 End: 02-06-2024 Office outpatient visit 15 minutes Dana Tapia OTR [employer] DRIVER Work Phone: [facility] Comment on above: Class 2 severe obesi ty due to excess calories with serious comorbidity and body mass index (BMI) of 36.0 to 36.9 in adult ([facility]) (Primary Dx); Essential (primary) hypertension ([facility]); Acute non-recurrent pansinusitis; Encounter for screening mammogram for malignant neoplasm of breast Start: 02-06-2024 End: 02-06-2024 ambulatory DANA TAPIA Not Available Start: 02-06-2024 End: 02-06-2024 Bamboo flowsheet Dana Tapia OTR [employer]IVER Work Phone: [facility] Start: 02-06-2024 End: 02-06-2024 Bamboo flowsheet Dana Tapia OTR [employer] DRIVER Work Phone: [facility] Start: 01-20-2024 ambulatory DANA TAPIA [facility] Start: 01-19-2024 End: 01-19-2024 [facility] Start: 01-16-2024 End: 01-16-2024 Patient encounter procedure Carlos Baer DPM Work Phone: [facility] Comment on above: Dermatophytosis of n ail (Primary Dx); Dystrophic nail; Pain around toenail, right foot; Pain around toenail, left foot Start: 01-16-2024 End: 01-16-2024 ambulatory CARLOS BAER Not Available Start: 01-16-2024 End: 01-16-2024 Bamboo flowsheet Carlos Baer DPM Work Phone: [facility] Start: 01-16-2024 End: 01-16-2024 Bamboo flowsheet Carlos Baer DPM Work Phone: [facility] Start: 01-11-2024 End: 01-11-2024 Office outpatient visit 25 minutes Dana Tapia OTR [employer] TR[employer] DRIVER Work Phone: [facility] Comment on above: Fibromyalgia (Primar y Dx); 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 elsewhere ([facility]); Class 2 severe obesity due to excess calories with serious comorbidity and body mass index (BMI) of 36.0 to 36.9 in adult ([facility]); ODALYS (generalized anxiety disorder) ([facility]); Essential (primary) hypertension ([facility]); Age-related osteoporosis without current pathological fracture ([facility]); Primary osteoarthritis involving multiple joints Start: 01-11-2024 End: 01-11-2024 ambulatory DANA TAPIA Not Available Start: 01-11-2024 End: 01-11-2024 Bamboo flowsheet Dana Tapia OTR V[employer] TR[employer] DRIVER Work Phone: [facility] Start: 01-11-2024 End: 01-11-2024 Bamboo flowsheet Dana Tapia OTR [employer] TR[employer] DRIVER Work Phone: [facility] Start: 01-10-2024 End: 01-10-2024 Bamboo flowsheet Jeffrey Schilling DO Work Phone: [facility] Start: 01-10-2024 End: 01-10-2024 Bamboo flowsheet Jeffrey Schilling DO Work Phone: [facility] Start: 01-10-2024 End: 01-10-2024 Office outpatient visit 10 minutes Jeffrey Schilling DO Work Phone: [facility] Comment on above: Status post right ro tator cuff repair (Primary Dx); Right shoulder pain, unspecified chronicity Start: 01-10-2024 End: 01-10-2024 ambulatory JEFFREY SCHILLING Not Available Start: 01-09-2024 End: 01-09-2024 ambulatory Jesenia Jorge [employer] Work Phone: [facility] Comment on above: Acute pain of right shoulder (Primary Dx); Shoulder stiffness, right Start: 01-06-2024 End: 01-06-2024 ambulatory Leo Goodwin PT Work Phone: [facility] Comment on above: Acute pain of right shoulder (Primary Dx); Shoulder stiffness, right Start: 01-05-2024 End: 01-05-2024 Bamboo flowsheet May Pulido OTR VAN [employer] TRUCK DRIVER Work Phone: [facility] Start: 01-05-2024 End: 01-05-2024 Bamboo flowsheet May Pulido OTR VAN [employer] TRUCK DRIVER Work Phone: [facility] Start: 01-05-2024 End: 01-05-2024 Office outpatient visit 10 minutes May Pulido OTR [employer] TR[employer] DRIVER Work Phone: [facility] Comment on above: Status post [...] 12-30-2023 End: 12-30-2023 Bamboo flowsheet Christine Uribe [employer] [facility] Start: 12-30-2023 End: 12-30-2023 Bamboo flowsheet Christine Uribe [employer] [facility] Start: 12-30-2023 End: 12-30-2023 ambulatory Christine Uribe SALVAGE CUTTER [facility] Comment on above: Acute pain of right shoulder (Primary Dx); Shoulder stiffness, right Start: 12-29-2023 End: 12-29-2023 Refill Danataco Tapia OTR VAN CDL TRUCK DRIVER Work Phone: [facility] Comment on above: Gastro-esophageal re flux disease without esophagitis; Esophageal reflux Start: 12-28-2023 End: 12-28-2023 Bamboo flowsheet Jesenia Jorge SALVAGE CUTTER Work Phone: [facility] Start: 12-28-2023 End: 12-28-2023 Bamboo flowsheet Jesenia Jorge SALVAGE CUTTER Work Phone: [facility] Start: 12-28-2023 End: 12-28-2023 ambulatory Jesenia Jorge SALVAGE CUTTER Work Phone: [facility] Comment on above: Acute pain of right shoulder (Primary Dx); Shoulder stiffness, right Start: 12-23-2023 End: 12-23-2023 Bamboo flowsheet Jesenia Jorge SALVAGE CUTTER Work Phone: [facility] Start: 12-23-2023 End: 12-23-2023 Bamboo flowsheet Jesenia Jorge SALVAGE CUTTER Work Phone: [facility] Start: 12-23-2023 End: 12-23-2023 ambulatory Jesenia Jorge SALVAGE CUTTER Work Phone: [facility] Comment on above: Acute pain of right shoulder (Primary Dx); Shoulder stiffness, right Start: 12-19-2023 End: 12-19-2023 Bamboo flowsheet Leo Goodwin PT Work Phone: [facility] Start: 12-19-2023 End: 12-19-2023 Bamboo flowsheet Leo Binghamgs PT Work Phone: [facility] Start: 12-19-2023 End: 12-19-2023 ambulatory Leo Binghamgs PT Work Phone: [facility] Comment on above: Acute pain of right shoulder (Primary Dx); Shoulder stiffness, right Start: 12-16-2023 End: 12-16-2023 Bamboo flowsheet Jesenia Jorge SALVAGE CUTTER Work Phone: [facility] Start: 12-16-2023 End: 12-16-2023 Bamboo flowsheet Jesenia Jorge SALVAGE CUTTER Work Phone: [facility] Start: 12-16-2023 End: 12-16-2023 ambulatory Jesenia Jorge SALVAGE CUTTER Work Phone: [facility] Comment on above: Acute pain of right shoulder (Primary Dx); Shoulder stiffness, right Start: 12-15-2023 End: 12-15-2023 Refill Dana Tapia OTR VAN CDL TRUCK DRIVER Work Phone: [facility] Comment on above: Arthropathy, unspeci fied; Unspecified osteoarthritis, unspecified site Start: 12-14-2023 End: 12-14-2023 Bamboo flowsheet Leo Binghamgs PT Work Phone: [facility] Start: 12-14-2023 End: 12-14-2023 Bamboo flowsheet Leo Mcintyre Buddy PT Work Phone: [facility] Start: 12-14-2023 End: 12-14-2023 ambulatory Leo Mcintyre Buddy PT Work Phone: [facility] Comment on above: Acute pain of right shoulder (Primary Dx); Shoulder stiffness, right Start: 12-12-2023 End: 12-12-2023 ambulatory [facility] Work Phone: Start: 12-12-2023 End: 12-12-2023 Patient encounter procedure [facility] Nephrology Tiffany Work Phone: Start: 12-12-2023 End: 12-12-2023 Bamboo flowsheet May Pulido OTR VAN CDL TRUCK DRIVER Work Phone: [facility] Start: 12-12-2023 End: 12-12-2023 Bamboo flowsheet May Pulido OTR VAN CDL TRUCK DRIVER Work Phone: [facility] Start: 12-12-2023 End: 12-12-2023 Postop follow up visit related to original px May Pulido OTR VAN CDL TRUCK DRIVER Work Phone: [facility] Comment on above: Status post right ro tator cuff repair (Primary Dx) Start: 12-12-2023 End: 12-12-2023 ambulatory MAY PULIDO Not Available Start: 12-09-2023 End: 12-09-2023 Bamboo flowsheet Jesenia Jorge SALVAGE CUTTER Work Phone: [facility] Start: 12-09-2023 End: 12-09-2023 Bamboo flowsheet Jesenia Jorge SALVAGE CUTTER Work Phone: [facility] Start: 12-09-2023 End: 12-09-2023 ambulatory Jesenia Jorge SALVAGE CUTTER Work Phone: [facility] Comment on above: Acute pain of right shoulder (Primary Dx); Shoulder stiffness, right Start: 12-07-2023 End: 12-08-2023 ambulatory Jesenia Jorge SALVAGE CUTTER Work Phone: [facility] Comment on above: Acute pain of right shoulder (Primary Dx); Shoulder stiffness, right Start: 12-06-2023 End: 12-06-2023 Clinisync Result Encounter Generic External Data Provider [facility] External Department Unsolicited Start: 12-06-2023 End: 12-06-2023 Clinisync Result Encounter Generic External Data Provider [facility] External Department Unsolicited Start: 12-06-2023 Non-patient / Non-visit [facility] Work Phone: Start: 12-02-2023 End: 12-02-2023 Bamboo flowsheet Jesenia Jorge SALVAGE CUTTER Work Phone: [facility] Start: 12-02-2023 End: 12-02-2023 Bamboo flowsheet Jesenia Jorge SALVAGE CUTTER Work Phone: [facility] Start: 12-02-2023 End: 12-02-2023 ambulatory Jesenia Jorge SALVAGE CUTTER Work Phone: [facility] Comment on above: Acute pain of right shoulder (Primary Dx); Shoulder stiffness, right Start: 11-30-2023 End: 11-30-2023 Bamboo flowsheet Leo Mcintyre Buddy PT Work Phone: [facility] Start: 11-30-2023 End: 11-30-2023 Bamboo flowsheet Leo Mcintyre Buddy PT Work Phone: [facility] Start: 11-30-2023 End: 11-30-2023 ambulatory Leo Binghamgs PT Work Phone: [facility] Comment on above: Acute pain of right shoulder (Primary Dx); Shoulder stiffness, right Start: 11-28-2023 End: 11-28-2023 Bamboo flowsheet Dana Tapia OTR VAN CDL TRUCK DRIVER Work Phone: [facility] Start: 11-28-2023 End: 11-28-2023 Bamboo flowsheet Dana Tapia OTR VAN CDL TRUCK DRIVER Work Phone: [facility] Start: 11-28-2023 End: 11-28-2023 Office outpatient visit 25 minutes Dana Tapia OTR VAN CDL TRUCK DRIVER Work Phone: [facility] Comment on above: Essential (primary) hypertension (CMS/HCC) (Primary Dx); Fibromyalgia; 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 elsewhere (CMS/HCC); ODALYS (generalized anxiety disorder) (CMS/HCC); Type 2 diabetes mellitus without complication, without long-term current use of insulin (CMS/HCC) Start: 11-28-2023 End: 11-28-2023 ambulatory DANA ARIANZ Not Available Start: 11-24-2023 End: 11-24-2023 Bamboo flowsheet Leo Goodwin PT Work Phone: [facility] Start: 11-24-2023 End: 11-24-2023 Bamboo flowsheet Leo J Buddy PT Work Phone: [facility] Start: 11-24-2023 End: 11-24-2023 ambulatory Leo Goodwin PT Work Phone: [facility] Comment on above: Acute pain of right shoulder (Primary Dx); Shoulder stiffness, right Start: 11-14-2023 End: 11-14-2023 Bamboo flowsheet May Pulido OTR VAN CDL TRUCK DRIVER Work Phone: [facility] Start: 11-14-2023 End: 11-14-2023 Bamboo flowsheet May Pulido OTR VAN CDL TRUCK DRIVER Work Phone: [facility] Start: 11-14-2023 End: 11-14-2023 Postop follow up visit related to original px May Pulido OTR VAN CDL TRUCK DRIVER Work Phone: [facility] Comment on above: Status post right ro tator cuff repair Start: 11-14-2023 End: 11-14-2023 ambulatory MAY PULIDO Not Available Start: 10-05-2023 End: 10-05-2023 Evaluation and management of inpatient ANDRÉS Mcdonald [facility] Start: 10-05-2023 End: 10-05-2023 Evaluation and management of inpatient [facility] Start: 10-04-2023 End: 10-04-2023 ambulatory [facility] Work Phone: Start: 10-04-2023 End: 10-04-2023 Patient encounter procedure [facility] Work Phone: Start: 09-28-2023 End: 05-30-2024 Preoperative state Leo Goodwin PT Work Phone: [facility] Start: 09-27-2023 End: 09-27-2023 ambulatory [facility] Start: 09-27-2023 Encounter for other preprocedural examination DANA TAPIA [facility] Start: 06-13-2023 End: 06-13-2023 ambulatory PHYSICIAN NO [facility] Work Phone: Start: 06-13-2023 End: 06-13-2023 Patient encounter procedure PHYSICIAN NO [facility] [place] Nephrology Work Phone: Start: 06-07-2023 Non-patient / Non-visit PHYSICIAN NO [facility] Work Phone: Start: 05-11-2023 Non-patient / Non-visit PHYSICIAN NO [facility] Work Phone: Start: 04-13-2023 End: 04-13-2023 Patient encounter procedure Carlos Baer DPM Work Phone: [facility] Comment on above: Dermatophytosis of n ail (Primary Dx); Dystrophic nail; Pain around toenail, right foot; Pain around toenail, left foot Start: 04-13-2023 Bamboo flowsheet Carlos London er DPM Work Phone: [facility] Start: 04-13-2023 Bamboo flowsheet Carlos London er DPM Work Phone: [facility] Start: 03-31-2023 End: 03-31-2023 Discharged Recurring PHYSICIAN NO [facility] Work Phone: Start: 03-31-2023 End: 03-31-2023 ambulatory PHYSICIAN NO [facility] Work Phone: Start: 03-31-2023 End: 03-31-2023 Patient encounter procedure PHYSICIAN NO [facility]- Start: 03-28-2023 Patient encounter procedure Carlos Baer DPM Work Phone: [facility] Start: 03-25-2023 End: 01-26-2024 ambulatory TONDRA K MAPUS [facility] Start: 03-03-2023 End: 03-03-2023 ambulatory Eboni Buck Other [facility] Other Start: 03-03-2023 Telephone encounter Eboni Buck [facility] Start: 12-14-2022 End: 12-14-2022 ambulatory Eboni Buck Other [facility] Other Start: 12-14-2022 Office outpatient vi sit 15 minutes Eboni Buck [facility] Start: 09-29-2022 (DM) Diabetes Tondra Mapus [facility] Start: 09-29-2022 End: 09-29-2022 ambulatory Tondra Mapus Other [facility] Other Start: 09-03-2022 End: 09-03-2022 ambulatory Tondra Mapus Other [facility] Other Start: 09-03-2022 Telephone encounter Tondra Mapus [facility] Start: 06-08-2022 End: 06-08-2022 ambulatory Eboni Buck Other [facility] Other Start: 06-08-2022 Office outpatient vi sit 25 minutes Eboni Buck [facility] Start: 06-02-2022 End: 06-03-2022 ambulatory EBONI BUCK Facility:[facility] Start: 04-01-2022 End: 04-01-2022 ambulatory Tondra Mapus Other [facility] Other Start: 04-01-2022 Telephone encounter Tondra Mapus [facility] Start: 03-31-2022 (DM) Diabetes Tondra Mapus [facility] Start: 03-31-2022 End: 03-31-2022 ambulatory Tondra Mapus Other [facility] Other Start: 03-31-2022 Telephone encounter Eboni Buck [facility] Start: 03-30-2022 End: 03-31-2022 ambulatory TONDRA MAPUS Facility:[facility] Start: 02-05-2022 End: 02-06-2022 ambulatory COILER DANA TAPIA Facility:[facility] Start: 01-14-2022 End: 01-14-2022 ambulatory Eboni Buck Other [facility] Other Start: 01-14-2022 Telephone encounter Eboni Buck [facility] Start: 12-29-2021 End: 12-29-2021 ambulatory Eboni Buck Other [facility] Other Start: 12-29-2021 Telephone encounter Eboni Buck [facility] Start: 12-22-2021 End: 12-23-2021 ambulatory EBONI BUCK Facility:[facility] Start: 12-21-2021 (DM) Diabetes Tondra Mapus [facility] Start: 12-21-2021 End: 12-21-2021 ambulatory Tondra Mapus Other [facility] Other Start: 12-14-2021 End: 12-14-2021 ambulatory Eboni Buck Other [facility] Other Start: 12-14-2021 Office outpatient vi sit 25 minutes Eboni Buck [facility] Start: 12-04-2021 End: 12-05-2021 ambulatory TONDRA MAPUS Facility:[facility] Start: 09-23-2021 End: 09-23-2021 ambulatory Kristin Janae Other [facility] Other Start: 09-23-2021 Office outpatient vi sit 15 minutes Kristin Janae [facility] Start: 06-23-2021 (DM) Diabetes Tondra Mapus [facility] Start: 06-23-2021 End: 06-23-2021 ambulatory Tondra Pravinus Other [facility] Other Start: 06-18-2021 End: 06-18-2021 ambulatory LIZETTE TAPIA Facility:[facility] Start: 06-17-2021 End: 06-17-2021 ambulatory LIZETTE TAPIA [facility] Other Start: 06-17-2021 Office outpatient vi sit 25 minutes Eboni Buck [facility] Start: 06-12-2021 End: 06-13-2021 ambulatory EBONI BUCK Facility:[facility] Start: 06-09-2021 End: 06-09-2021 ambulatory Tondra Mapus Other [facility] Other Start: 06-09-2021 Telephone encounter Bernardino Talavera [facility] Start: 12-23-2020 Office outpatient vi sit 15 minutes Eboni Buck [facility] Start: 12-17-2020 (DM) Diabetes Tona Sadfa [facility] Start: 12-05-2020 ([facility] C Vac) [facility] Co vid Vaccine Natalee Viniciusgallito [facility] Start: 09-21-2016 End: 09-22-2016 Ambulatory SULY SANTOS Facility:[facility] Procedures Date Procedure Procedure Detail Performing Clinician Start: 06-05-2024 [facility] CBC WITH PLATELET NO DIFFERENTIAL Generic External Data Provider Start: 03-21-2024 Basic metabolic panel calcium total Cristopher Ellington MD Work Phone: Start: 03-21-2024 Hepatic function panel Cristopher Ellington MD Work Phone: Start: 12-06-2023 [facility] CBC WITH PLATELET NO DIFFERENTIAL Generic External Data Provider History of repair of musculotendinous cuff of shoulder Status post right rotator cuff repair May Pulido OTR VAN CDL TRUCK DRIVER Work Phone: History of repair of musculotendinous cuff of shoulder Status post right rotator cuff repair May Pulido OTR VAN CDL TRUCK DRIVER Work Phone: History of repair of musculotendinous cuff of shoulder Status post right rotator cuff repair Jeffrey Schilling DO Work Phone: History of repair of musculotendinous cuff of shoulder Status post right rotator cuff repair May Pulido OTR VAN CDL TRUCK DRIVER Work Phone: Plan of Treatment Date Care Activity Detail Author Start: 11-08-2025 Tobacco Screening Tobacco Screening [facility] Start: 06-28-2025 Tobacco Screening Tobacco Screening [facility] Start: 06-07-2025 Tobacco Screening Tobacco Screening [facility] Start: 06-05-2025 Urine screening for protein Diabetes: Urine Protein Screening [facility] Start: 05-17-2025 Tobacco Screening Tobacco Screening [facility] Start: 05-08-2025 End: 05-08-2025 Patient encounter procedure 05/08/2025 5:00 PM EDT Office Visit [facility] [address] [place] [address] Dana Tapia NP [address] [place] [address] [facility] Start: 05-07-2025 Medicare Annual Well ness (AWV) Medicare Annual Wellness (AWV) [facility] Start: 04-19-2025 Tobacco Screening Tobacco Screening [facility] Start: 04-04-2025 Tobacco Screening Tobacco Screening [facility] Start: 03-07-2025 Hemoglobin A1c measurement Diabetes: Hemoglobin A1C [facility] Start: 02-19-2025 Tobacco Screening Tobacco Screening [facility] Start: 01-16-2025 End: 01-16-2025 Patient encounter procedure 01/16/2025 2:45 PM EST Procedure Visit [facility] [address] [place] [phone] Carlos Baer DPM [address] [place] [address] [facility] Start: 12-10-2024 Glaucoma screening Diabetes: R etinopathy Screening [facility] Start: 11-08-2024 End: 11-08-2024 Patient encounter procedure 11/08/2024 2:50 PM EDT [facility] [address] [facility] [address] [place] [address] Daniel Wolf MD [address] [facility] [place] [address] [facility] Start: 11-08-2024 End: 11-08-2025 XR Shoulder - right 2 Views [facility] Work Phone: Comment on above: Expected: 11/08/2024 , Expires: 11/08/2025 Start: 11-06-2024 End: 11-06-2024 Patient encounter procedure 11/06/2024 2:00 PM EDT Office Visit [facility] [address] [place] [address] Dana Tapia, CHENTE [address] [place] [address] [facility] Start: 10-29-2024 COVID-19 Vaccine (8 - Pfizer risk season) COVID-19 Vaccine (8 - Pfizer risk season) [facility] Start: 10-29-2024 Influenza vaccination [facility] Start: 10-16-2024 End: 10-16-2024 Patient encounter procedure [facility] Comment on above: Arrived Start: 09-03-2024 Hemoglobin A1c measurement Diabetes: Hemoglobin A1C [facility] Start: 08-22-2024 End: 08-22-2024 Patient encounter procedure [facility] Comment on above: Class 2 severe obesi ty due to excess calories with serious comorbidity and body mass index (BMI) of 36.0 to 36.9 in adult ([facility]-HCC) (Primary Dx); ODALYS (generalized anxiety disorder) Start: 07-16-2024 End: 07-16-2024 Patient encounter procedure [facility] Comment on above: Arrived Start: 07-12-2024 End: 07-12-2024 Patient encounter procedure [facility] Comment on above: Class 2 severe obesi ty due to excess calories with serious comorbidity and body mass index (BMI) of 36.0 to 36.9 in adult (CMS/[facility]) (Primary Dx); Back pain of lumbar region with sciatica Start: 06-28-2024 End: 06-28-2024 Patient encounter procedure 06/28/2024 10:20 AM EDT Office Visit [facility] [address] [place] [phone] Daniel Wolf MD [address] [place] [address] [facility] Start: 06-07-2024 End: 06-07-2024 ambulatory 06/07/2024 1:30 PM EDT Treatment [facility] [address] [place] [address] Mely Grossman PTA [facility] Start: 06-06-2024 Urine screening for protein Diabetes: Urine Protein Screening [facility] Start: 06-05-2024 End: 06-05-2024 ambulatory 06/05/2024 1:30 PM EDT Treatment [facility] [address] [place] [phone] Mely Grossman PTA [facility] Start: 06-03-2024 COVID-19 Vaccine (8 - Pfizer risk season) COVID-19 Vaccine (8 - Pfizer risk season) [facility] Start: 05-31-2024 End: 05-31-2024 ambulatory 05/31/2024 1:30 PM EDT Treatment [facility] [address] [place] [address] Jesenia Jorge PTA [address] [place], [place] [phone] [facility] Start: 05-30-2024 End: 05-30-2024 Patient encounter procedure [facility] Comment on above: Class 2 severe obesi ty due to excess calories with serious comorbidity and body mass index (BMI) of 36.0 to 36.9 in adult ([facility]) (Primary Dx); Essential (primary) hypertension ([facility]); Gastro-esophageal reflux disease without esophagitis; Esophageal reflux Start: 05-29-2024 End: 05-29-2024 ambulatory 05/29/2024 1:30 PM EDT Treatment [facility] [address] [place] [phone] Leo Goodwin, PT [address] [facility] [place] [id number] [facility] Start: 05-24-2024 End: 05-24-2024 ambulatory [facility] Comment on above: Arrived Start: 05-22-2024 End: 05-22-2024 ambulatory 05/22/2024 1:30 PM EDT Treatment [facility] [address] [place] [phone] Jesenia Jorge, SALVAGE CUTTER [address] [place], [place] [phone] [facility] Start: 05-17-2024 End: 05-17-2024 ambulatory 05/17/2024 1:30 PM EDT Treatment [facility] [address] [place] [phone] Mely Grossman PTA [facility] Start: 05-17-2024 End: 05-17-2024 Patient encounter procedure 05/17/2024 10:20 AM EDT Office Visit [facility] [facility] [address] [place] [phone] Daniel Wolf MD [address] [place], [place] [phone] [facility] Start: 05-15-2024 End: 05-15-2024 ambulatory 05/15/2024 1:30 PM EDT Treatment [facility] [address] [place] [address] Leo Goodwin, PT [address] [place] [address] [facility] Start: 05-10-2024 End: 05-10-2024 [...] Treatment [facility] [address] [place] [address] Mely Grossman PTA [facility] Start: 04-23-2024 End: 04-23-2024 ambulatory 04/23/2024 12:30 PM EST Evaluation [facility] [address] [place] [address] Leo Goodwin, PT [address] [place] [address] Arrived [facility] Comment on above: Arrived Start: 04-19-2024 End: 04-19-2024 Patient encounter procedure 04/19/2024 9:50 AM EST Office [facility] [address] [facility] [address] [place] [address] Daniel Wolf MD [address] [place] [address] [facility] Start: 04-18-2024 End: [...] 04-05-2024 Hemoglobin A1c measurement Diabetes: Hemoglobin A1C [facility] Start: 04-04-2024 End: 04-04-2024 Admission to same day surgery center 04/04/2024 10:00 AM EST - 04/04/2024 11:45 AM EST [facility] [address] [facility] [place] [address] Daniel Wolf MD [address] [place] [address] REVERSE ARTHROPLASTY TOTAL SHOULDER [80027 (CPT )] [facility] Comment on above: REVERSE ARTHROPLASTY TOTAL SHOULDER [58852 (CPT )] Start: 04-04-2024 End: 04-04-2024 Arthroplasty glenohumeral joint total shoulder REVERSE ARTHROPLASTY TOTAL SHOULDER Rotator cuff arthropathy of right shoulder 04/04/2024 10:00 AM EST [facility] Start: 04-04-2024 Subsequent hospital visit by physician 04/04/2024 10:00 AM [facility] Hospital Encounter [facility] [address] [facility] [place] [address] Daniel Wolf MD [address] [place] [address] [facility] Start: 03-28-2024 Medicare Annual Well ness (AWV) Medicare Annual Wellness (AWV) [facility] Start: 03-19-2024 End: 03-19-2024 Patient encounter [...] [facility] [address] [facility] [address] [place] [phone] Paco Scott, DO [address] [facility] [place] [address] [facility] Start: 03-05-2024 End: 03-05-2024 Patient encounter procedure [facility] Comment on above: Hypertensive chronic kidney [...] (CMS/HCC); Chronic kidney disease, stage 3a (HCC) ([facility]/HCC); Class 2 severe obesity due to excess calories with serious comorbidity and body mass index (BMI) of 36.0 to 36.9 in adult ([facility]/HCC); Closed head injury, sequela; Hematoma of frontal scalp, sequela Start: 02-27-2024 End: 02-27-2024 Patient encounter procedure 02/27/2024 6:40 PM EST Office Visit [facility] [address] [place] [address] Dana Tapia NP [address] [place] [phone] Arrived [facility] Comment on above: Arrived Start: 02-20-2024 End: 02-20-2024 Patient encounter procedure 02/20/2024 1:40 PM EST Office Visit [facility] [address] [place] [address] Dana Tapia, CHENTE [address] [place] [address] [facility] Start: 02-06-2024 End: 02-06-2024 Patient encounter procedure 02/06/2024 4:00 PM EST Office Visit [facility] [address] [place] [address] Dana Tapia, CHENTE [address] [place] [address] Arrived [facility] Comment on above: Arrived Start: 02-06-2024 End: 04-08-2025 MG Breast - bilateral Screening Bilateral screening mammogram Imaging Routine Encounter for screening mammogram for malignant neoplasm of breast Expected: 02/06/2024 (Approximate), Expires: 04/08/2025 [facility] Work Phone: Comment on above: Expected: 02/06/2024 (Approximate), Expires: 04/08/2025 Start: 2024 End: 2024 ambulatory 2024 7:00 AM EST Treatment [facility] [address] [place] [phone] Leo Goodwin, PT [address] [place] [address] [facility] Start: 01-29-2024 COVID-19 Vaccine ( season) COVID-19 Vaccine () [facility] Start: 01-25-2024 End: 01-25-2024 ambulatory 01/25/2024 7:00 AM EST Treatment [facility] [address] [place] [address] Jesenia Jorge, SALVAGE CUTTER [address] [place] [address] [facility] Start: 01-23-2024 End: 01-23-2024 ambulatory 01/23/2024 7:00 AM EST Treatment [facility] [address] [place] [address] Jesenia Jorge, SALVAGE CUTTER [address] [place] [address] [facility] Start: 01-20-2024 End: 01-20-2024 ambulatory 01/20/2024 7:00 AM EST Treatment [facility] [address] [place] [phone] Jesenia Jorge, SALVAGE CUTTER [address] [place] [address] [facility] Start: 01-17-2024 End: 01-17-2024 Patient encounter procedure 01/17/2024 9:30 AM EST Office Visit [facility] [address] [facility] [address] [place] [address] Jeffrey Schilling, DO [address] [facility] [address] [place] [address] [facility] Start: 01-16-2024 End: 01-16-2024 Patient encounter procedure [facility] Comment on above: Arrived Start: 01-16-2024 End: 01-16-2024 ambulatory 01/16/2024 7:00 AM EST Treatment [facility] [address] [place] [phone] Jesenia Jorge, SALVAGE CUTTER [address] [place] [address] [facility] Start: 01-13-2024 End: 01-13-2024 ambulatory 01/13/2024 7:00 AM EST Treatment [facility] [address] [place] [phone] Leo Goodwin, PT [address] [place] [address] [facility] Start: 01-12-2024 End: 01-12-2024 Patient encounter procedure 01/12/2024 9:15 AM EST Office Visit [facility] [address] [place] [phone] Jeffrey Schilling, DO [address] [facility] [address] [place] [address] [facility] Start: 01-11-2024 End: 01-11-2024 Patient encounter procedure 01/11/2024 2:20 PM EST Office Visit [facility] [address] [place] [address] Dana Tapia, OTR VAN CDL TRUCK DRIVER [address] [place] [address] [facility] Start: 01-10-2024 End: 01-10-2024 Patient encounter procedure 01/10/2024 11:45 AM EST Office Visit [facility] [address] [facility] [address] [place] [phone] Jeffrey Schilling DO [address] [facility] [address] [place] [address] [facility] Start: 01-09-2024 End: 01-09-2024 ambulatory 01/09/2024 7:00 AM EST Treatment [facility] [address] [place] [phone] Jesenia Jorge, SALVAGE CUTTER [address] [place] [address] [facility] Start: 01-06-2024 End: 01-06-2024 ambulatory 01/06/2024 7:30 AM EST Treatment [facility] [address] [place] [phone] Jesenia Jorge, SALVAGE CUTTER [address] [place] [address] [facility] Start: 01-05-2024 End: 01-05-2024 Patient encounter procedure 01/05/2024 9:45 AM EST Office Visit [facility] [address] [place] [phone] May Pulido, OTR VAN CDL TRUCK DRIVER [address] [place] [address] Arrived [facility] Comment on above: Arrived Start: 01-02-2024 End: 01-02-2024 ambulatory 01/02/2024 7:30 AM EST Treatment [facility] [address] [place] [phone] Leo Goodwin, PT [address] [place] [address] [facility] Start: 12-30-2023 End: 12-30-2023 ambulatory [facility] Start: 12-28-2023 End: 12-28-2023 ambulatory 12/28/2023 7:00 AM EDT Treatment [facility] [address] [place] [phone] Jesenia Jorge, SALVAGE CUTTER [address] [place] [address] [facility] Start: 12-23-2023 End: 12-23-2023 ambulatory 12/23/2023 7:30 AM EDT Treatment [facility] [address] [place] [phone] Jesenia Jorge, SALVAGE CUTTER [address] [place] [address] [facility] Start: 12-19-2023 End: 12-19-2023 ambulatory 12/19/2023 7:00 AM EDT Treatment [facility] [address] [place] [phone] Leo Goodwin, PT [address] [place] [address] [facility] Start: 12-16-2023 End: 12-16-2023 ambulatory 12/16/2023 8:00 AM EDT Treatment [facility] [address] [place] [phone] Jesenia Jorge, SALVAGE CUTTER [address] [place] [address] [facility] Start: 12-14-2023 End: 12-14-2023 ambulatory 12/14/2023 7:30 AM EDT Treatment [facility] [address] [place] [phone] Leo Goodwin, PT [address] [place] [address] [facility] Start: 12-12-2023 End: 12-12-2023 Patient encounter procedure [facility] Comment on above: Arrived Start: 12-09-2023 End: 12-09-2023 ambulatory 12/09/2023 7:30 AM EDT Treatment [facility] [address] [place] [phone] Jesenia Jorge, SALVAGE CUTTER [address] [place] [address] [facility] Start: 12-07-2023 End: 12-07-2023 ambulatory 12/07/2023 2:00 PM EDT Treatment [facility] [address] [place] [phone] Leo Goodwin, PT [address] [place] [address] [facility] Start: 12-02-2023 End: 12-02-2023 ambulatory [facility] Comment on above: Arrived Start: 11-30-2023 End: 11-30-2023 ambulatory [facility] Comment on above: Arrived Start: 11-28-2023 End: 11-28-2023 Patient encounter procedure [facility] Comment on above: Arrived Start: 11-24-2023 End: 11-24-2023 ambulatory 11/24/2023 12:30 PM EDT Evaluation [facility] [address] [place] [phone] Leo Goodwin, PT [address] [place] [address] Status post right rotator cuff repair [facility] Comment on above: Status post right ro tator cuff repair Start: 11-14-2023 End: 11-14-2023 Patient encounter procedure 11/14/2023 8:30 AM EDT Office Visit [facility] [address] [place] [phone] May Pulido, OTR VAN CDL TRUCK DRIVER [address] [place] [address] Arrived [facility] Comment on above: Arrived Start: 10-30-2023 Influenza vaccination Influenza Vacc ine (#1) [facility] Start: 09-29-2023 Hemoglobin A1c measurement Diabetes: Hemoglobin A1C [facility] Start: 09-26-2023 End: 09-26-2023 Patient encounter procedure 09/26/2023 2:20 PM EDT Office Visit [facility] [address] [place] [address] Dana Tapia NP [address] [place] [address] [facility] Start: 07-12-2023 End: 07-12-2023 Patient encounter procedure 07/12/2023 2:15 PM EDT Procedure Visit [facility] [address] [place] [phone] Carlos Baer DPM [address] [place] [address] [facility] Start: 06-29-2023 Hemoglobin A1c measurement Diabetes: Hemoglobin A1C [facility] Start: 04-13-2023 End: 04-13-2023 Patient encounter procedure 04/13/2023 2:15 PM EST Procedure Visit [facility] [address] [place] [phone] Carlos Baer DPTamara [address] [place] [address] Arrived [facility] Comment on above: Arrived Start: 01-31-2012 Fall Risk Screening Fall Risk Screen [facility] Start: 1966 DTaP,Tdap and Td Vaccines (1 - Tdap) DTaP,Tdap and Td Vaccines (1 - Tdap) [facility] Start: 1959 Depression Screening Depression Scre christinaing [facility] Patient Education [facility] Work Phone: Renal function 1999 panel - Serum or Plasma [facility] Renal function 1999 panel - Serum or Plasma [facility] Renal function 1999 panel - Serum or Plasma [facility] XR Lumbar spine GE 4 Views [facility] Immunizations Immunization Date Immunization Notes Care Provider Fa [facility] 12-23-2023 RSV, recombinant, protein subunit RSVpreF, adjuvant reconstitu, 120mcg/0.5mL, PF (Arexvy) Carlos Baer DPM Work Phone: [facility] 11-22-2023 Seasonal trivalent influenza vaccine, adjuvanted, preservative free Leo Buddy PT Work Phone: [facility] 11-22-2023 influenza virus vaccine, unspecified formulation Daniel Wolf MD Work Phone: [facility] 12-04-2022 Influenza, High-dose Seasonal, Quadrivalent, Preservative Free Leo Buddy PT Work Phone: [facility] 12-04-2022 influenza virus vaccine, unspecified formulation May Pulido OTR VAN CDL TRUCK DRIVER Work Phone: [facility] 03-19-2022 zoster vaccine recombinant Leo Buddy PT Work Phone: [facility] 12-06-2021 Influenza, High-dose Seasonal, Quadrivalent, Preservative Free Leo Buddy PT Work Phone: [facility] 11-10-2021 zoster vaccine recombinant Leo Buddy PT Work Phone: [facility] 12-05-2020 COVID-19 Pfizer Natalee Fitt Other [facility] 11-30-2020 Influenza, High-dose Seasonal, Quadrivalent, Preservative Free Leo Buddy PT Work Phone: [facility] 04-25-2020 COVID-19 Vaccine Pfi zer - Documentation Purposes Only Natalee Fitt Other [facility] 04-03-2020 COVID-19 Vaccine Pfi zer - Documentation Purposes Only Natalee Fitt Other [facility] 11-12-2019 unknown vaccine or immune globulin Leo Buddy PT Work Phone: [facility] 12-30-2018 influenza, high dose seasonal, preservative-free Leo Buddy PT Work Phone: [facility] 11-17-2017 influenza, high dose seasonal, preservative-free Leo Buddy PT Work Phone: [facility] 12-07-2016 influenza, high dose seasonal, preservative-free Leo Buddy PT Work Phone: [facility] 01-27-2016 influenza, seasonal, injectable, preservative free Leo Buddy PT Work Phone: [facility] 01-27-2016 pneumococcal conjuga te vaccine, 13 valent Leo Buddy PT Work Phone: [facility] 12-03-2014 influenza, seasonal, injectable, preservative free Leo Buddy PT Work Phone: [facility] 11-23-2013 influenza, seasonal, injectable, preservative free Leo Buddy PT Work Phone: [facility] 04-14-2012 pneumococcal polysaccharide vaccine, 23 valent Leo Buddy PT Work Phone: [facility] Payers Date Payer Category Payer Private Health Insurance AARP Me mber Subscriber Plan / Payer (Effective 2022-Present) Name: Ashley Olson Relation to Subscriber: Self Name: Ashley Olson Payer ID: Not on file Group ID: [id number] Type: Not on file Address: [address] [place] [id number] 2022 Unknown AARP AARP [id number] [id number] 2022-Present [address] [place] [address] [id number] .[id number] 2018 Self-pay [id number] 2016 Managed Care Other (unspecified) [facility] [id number] 2012 Medicare [id number]. 1.13.693.2 .7.3.169593.315 1959 Medicare [id number] 2.16.840.1.533773.19 1959 Unknown [id number] 2.16.840.1.705103.19 1947 Unknown [id number] 2.16.840.1.510307.3.579.2 .593 1947 Unknown [id number] 2.16.840.1.305747.3.579.2 .593 1947 Unknown [id number] 2.16.840.1.140718.3.579.2 .593 1947 Unknown [id number] 2.16.840.1.968949.3.579.2 .593 1947 Unknown [id number] 2.16.840.1.437763.3.579.2 .593 1947 Unknown [id number] 2.16.840.1.113942.3.579.2 .593 1947 Unknown [id number] 2.16.840.1.004659.3.579.2 .593 1947 Unknown [id number] 2.16.840.1.089967.3.579.2 .593 1947 Unknown [id number] 2.16.840.1.833961.3.579.2 .593 1947 Unknown [id number] 2.16.840.1.161837.3.579.2 .1286 1947 Unknown [id number] 2.16.840.1.381871.3.579.2 .1286 1947 Unknown [id number] 2.16.840.1.660744.3.579.2 .1286 1947 Unknown [id number] 2.16.840.1.861921.3.579.2 .1286 1947 Unknown [id number] 2.16.840.1.427113.3.579.2 .1286 1947 Unknown [id number] 2.16.840.1.014427.3.579.2 .1286 1947 Unknown [id number] 2.16.840.1.711531.3.579.2 .1286 1947 Unknown [id number] 2.16.840.1.014261.3.579.2 .1286 1947 Unknown [id number] 2.16.840.1.068016.3.579.2 .1286 1947 Unknown [id number] 2.16.840.1.747415.3.579.2 .6 1947 Unknown [id number] 2.16.840.1.257841.3.579.2 .125 1947 Unknown [id number] 2.16.840.1.386165.3.579.2 .1258 1947 Unknown [id number] 2.16.840.1.920172.3.579.2 .1258 1947 Unknown [id number] 2.16.840.1.645385.3.579.2 .1258 1947 Unknown [id number] 2.16840.1.343866.3.579.2 .1258 1947 Unknown [id number] 2.16.840.1.614003.3.579.2 .1258 1947 Unknown [id number] 2.16.840.1.813392.3.579.2 .1258 1947 Unknown [id number] 2.16.840.1.436671.3.579.2 .1258 1947 Unknown [id number] 2.840.1.210961.3.579.2 .1258 1947 Unknown [id number] 2.16.840.1.683677.3.579.2 .125 1947 Unknown [id number] 2.16.840.1.114934.3.579.2 .1258 1947 Unknown [id number] 2.16.840.1.408239.3.579.2 .1258 1947 Unknown [id number] 2.16.840.1.039308.3.579.2 .1258 1947 Unknown [id number] 2.16.840.1.798034.3.579.2 .1259 1947 Unknown [id number] 2.16.840.1.281662.3.579.2 .1258 1947 Unknown [id number] 2.16.840.1.317986.3.579.2 .1258 1947 Unknown [id number] 2.16.840.1.626640.3.579.2 .1258 1947 Unknown [id number] 2.16.840.1.295017.3.579.2 .1258 1947 Unknown [id number] 2.16.840.1.066281.3.579.2 .1258 1947 Unknown [id number] 2.16.840.1.869634.3.579.2 .1258 1947 Unknown [id number] 2.16.840.1.764761.3.579.2 .1258 1947 Unknown [id number] 2.16.840.1.805437.3.579.2 .1258 1947 Unknown [id number] 2.16.840.1.769921.3.579.2 .1258 1947 Unknown [id number] 2.16.840.1.058271.3.579.2 .1258 1947 Unknown [id number] 2.16.840.1.505026.3.579.2 .1258 1947 Unknown [id number] 2.16.840.1.522975.3.579.2 .1258 1947 Unknown [id number] 2.16.840.1.266026.3.579.2 .1258 1947 Unknown [id number] 2.16.840.1.554205.3.579.2 .1258 1947 Unknown [id number] 2.16.840.1.659700.3.579.2 .9 1947 Unknown [id number] 2.16.840.1.390359.3.579.2 .1258 1947 Unknown [id number] 2.16.840.1.143290.3.579.2 .1258 1947 Unknown [id number] 2.16.840.1.947312.3.579.2 .1258 1947 Unknown [id number] 2.16.840.1.142453.3.579.2 .1258 1947 Unknown [id number] 2.16.840.1.135145.3.579.2 .1258 1947 Unknown [id number] 2.16.840.1.118006.3.579.2 .1258 1947 Unknown [id number] 2.16.840.1.552896.3.579.2 .1258 1947 Unknown [id number] 2.16.840.1.042175.3.579.2 .1258 1947 Unknown [id number] 2.16.840.1.193592.3.579.2 .1258 1947 Unknown [id number] 2.16.840.1.423601.3.579.2 .1258 1947 Unknown [id number] 2.16.840.1.207012.3.579.2 .1258 1947 Unknown [id number] 2.16.840.1.961513.3.579.2 .1258 1947 Unknown [id number] 2.16.840.1.211213.3.579.2 .1258 1947 Unknown [id number] 2.16.840.1.874094.3.579.2 .1258 1947 Unknown [id number] 2.16.840.1.223345.3.579.2 .1258 1947 Unknown [id number] 2.16.840.1.918619.3.579.2 .1286 1947 Unknown [id number] 2.16.840.1.643405.3.579.2 .1286 1947 Unknown [id number] 2.16.840.1.686620.3.579.2 .1286 1947 Unknown [id number] 2.16.840.1.132277.3.579.2 .1286 1947 Unknown [id number] 2.16.840.1.726388.3.579.2 .128 1947 Unknown [id number] 2.16.840.1.230711.3.579.2 .128 1947 Unknown [id number] 2.16.840.1.974962.3.579.2 .6 1947 Unknown [id number] 2.16.840.1.867664.3.579.2 .1286 1947 Unknown [id number] 2.16.840.1.914117.3.579.2 .1285 1947 Unknown [id number] 2.16.840.1.411270.3.579.2 .1286 1947 Unknown [id number] 2.16.840.1.858050.3.579.2 .1286 Medicare [id number] Unknown [id number] 2.16.840.1.037366.3.579.2 .531 Unknown [id number] 2.16.840.1.197873.3.579.2 .531 Social History Date Type Detail Facility Unknown if ever smoked [facility] Other Start: 04-10-2020 End: 03-28-2023 Sex Assigned At [facility] Start: 10-06-2022 End: 06-13-2023 Tobacco smoking status MTIS Never smoked tobacco [facility] Start: 02-17-2022 End: 10-06-2022 Tobacco use and exposure Smokeless tobacco non-user [facility] Start: 03-28-2023 End: 04-13-2023 Alcohol intake Current drinker of alcohol (finding) [facility] Start: 04-10-2020 End: 03-28-2023 Alcohol intake [facility] Within the last year , have you been afraid of your partner or ex-partner? No [facility] Do you belong to any clubs or organizations such as mandaeism groups, unions, [employer] or athletic groups, or school groups? Yes [...] Only a little [facility] (I/We) worried wheangeli er (my/our) food would run out before (I/we) got money to buy more. Never true [facility] Start: 10-06-2022 Alcohol Comment Caffeine intak e: 1-2 cups per day tea [facility] Start: 1945 Sex Assigned At Not on file [facility] Start: 1945 Sex Assigned At Female F [facility] Start: 11-28-2023 End: 10-16-2024 Alcoholic beverage intake Lifetime non-drinker (finding) [facility] Start: 09-20-2023 Gender identity Identifies as female gender (finding) [facility] Start: 10-03-2014 End: 03-06-2024 Sex Female (finding) [facility] Start: 03-21-2024 End: 11-12-2024 Alcoholic beverage intake Current non-drinker of alcohol (finding) [facility] NEGATED: Highlighted rowStart: NINF History of tobacco use Passive smoker [facility] Medical Equipment Procedure Code Equipment Code Equipment Origin al Text Equipment Identifier Dates [id number] Start: 06-28-2022 Healicoil Regene sorb 4.75mm Suture [place] [id number] Start: 10-05-2023 Healicoil Regene sorb 4.75mm Suture [place] [id number] Start: 10-05-2023 Healicoil Regene sorb 4.75 Suture [place] [id number] Start: 10-05-2023 Healicoil Knotle ss Regenesorb Suture [place] [id number] Start: 10-05-2023 Healicoil Knotle ss Regenesorb Suture [place] [id number] Start: 10-05-2023 Lens Iol Ultrase rt 18.0d - [id number] - [id number] Start: 04-04-2018 Lens Iol Ultrase rt 17.5d - [id number] - [id number] Start: 04-18-2018 Isten Trab Mcro Byps - [id number] - [id number] Start: 04-04-2018 Isten Trab Mcro Byps - [id number] - [id number] Start: 04-18-2018 Bearing Hum 36mm Cmprh Std Shldr Prlng Rvrs - [id number] ()[id number] [id number] , [id number] FDA Start: 04-04-2024 Baseplate Augusto C mprh 25mm Mn Shldr Tpr Adpr Rvrs Sys - [id number] ()[id number] [id number] , [id number] FDA Start: 04-04-2024 Component Augusto 3 6mm Std Glenosphere Clr Cd Cmprh Versa-Dial - [id number] ()[id number] [id number] , [id number] FDA Start: 04-04-2024 Tray Hum Cmprh S td Shldr Rvrs - [id number] ()[id number](1 7)[id number] , [id number] FDA Start: 04-04-2024 Stem Hum 83mm 12 mm Cmprh Por Mn Shldr Rvrs Sys - [id number] ()[id number](1 7)[id number], [id number] FDA Start: 04-04-2024 Screw Bn 15mm 4. 75mm Lck Fx Ang Hx Hd Ti Cmprh 3.5mm Strl - [id number](1 7)[id number], [id number]_imp FDA Start: 04-04-2024 Screw Bn 40mm 6. 5mm Cntr Hx Hd Ti Cmprh 3.5mm Strl Rvrs - [id number] Start: 04-04-2024 Screw Bn 30mm 4. 75mm Va Hx Hd Ti Cmprh 3.5mm Strl Rvrs Shldr - [id number])[id number](1 7)[id number], [id number]_imp FDA Start: 04-04-2024 Screw Bn 35mm 4. 75mm Va Hx Hd Ti Cmprh 3.5mm Strl Rvrs Shldr - [id number] ()[id number](1 7)[id number])[id number], [id number]_imp FDA Start: 04-04-2024 Screw Bn 15mm 4. 75mm Lck Fx Ang Hx Hd Ti Cmprh 3.5mm Strl - [id number] ()[id number](1 )[id number], [id number] FDA Start: 04-04-2024 Clinical Notes 12-05-2020 to 11-08-2024 Daniel Wolf MD - 11/08/2024 2:50 PM EDTTelephone Encounter - Andrea Dubose - 11/07/2024 9:24 AM EDTTelephone Encounter - LORENA Romero - 11/07/2024 9:24 AM EDTPatient Instructions Note Date & Type Note Facility 11-08-2024 History of Present illness Narrative 11/08/2024 Subjective: This is a 79-year-old female with history of right reverse total shoulder arthroplasty on 04/04/2024. States earlier this week she is getting ready for bed she looks in the mirror noted some bruising and swelling in the anterior and lateral aspect of the right shoulder. Denies any injury. States he has some soreness associated with it. Since her surgery patient has always had limited ability to lift her arm but she states she has noticed no functional change since this bruising appeared. She takes a baby aspirin but denies any stronger blood thinners Current Outpatient Medications Medication Sig Dispense Refill alendronate (FOSAMAX) 70 mg tablet Take 1 tablet (70 mg total) by mouth every 7 days. In a.m. with water on empty stomach, nothing else by mouth and remain upright for 30min saturdays amLODIPine (NORVASC) 10 mg tablet Take 0.5 tablets (5 mg total) by mouth in the morning. 3 ascorbic acid, vitamin C, (VITAMIN C) [...] with meals. cetirizine (ZyrTEC) 10 mg tablet 4 cholecalciferol, vitamin D3, 2,000 units capsule Take 1 capsule (2,000 Units total) by mouth in the morning. diphenhydrAMINE-acetaminophen (TYLENOL PM) 25-500 mg tablet Take 1 tablet by mouth nightly as needed for sleep. DOCOSAHEXANOIC ACID/EPA (FISH OIL ORAL) Take by mouth in the morning. FARXIGA 5 [...] 1 capsule (100 mg total) by mouth in the morning. 4 latanoprost (XALATAN) 0.005 % ophthalmic solution Administer 1 drop to both eyes nightly. losartan (COZAAR) 100 mg tablet Take 1 tablet (100 mg total) by mouth in the morning. MAGNESIUM CARBONATE ORAL Take 250 mg by mouth in the morning. melatonin tablet Take by mouth nightly. meloxicam (MOBIC) 15 mg tablet Take 1 tablet (15 mg total) by mouth in the morning. aojivfyh-sufc-[place]-calcium &mins (THERAGRAN-M) 9 mg iron-400 mcg tablet Take 1 tablet by mouth in the morning. traMADoL (ULTRAM) 50 mg tablet Take 1 tablet (50 mg total) by mouth every 6 (six) hours as needed for pain. 28 tablet 0 No current facility-administered medications for this visit. [...] 12/24/2016 Performed by Kai Blackwell MD at [facility] HYSTERECTOMY Ovarian CA JOINT REPLACEMENT Bilateral knee replacement OVARY SURGERY ovarian cancer PHACO KELMAN I IMPLANT INTRAOCULAR LENS I-STENT Left 04/18/2018 Performed by Glenna Egan MD at [facility] PHACO KELMAN I IMPLANT INTRAOCULAR LENS I-STENT Right 04/04/2018 Performed by Glenna Egan MD at [facility] REVERSE ARTHROPLASTY TOTAL SHOULDER Right 04/04/2024 Performed by Daniel Wolf MD at [facility] UMBILICAL HERNIA REPAIR Past Medical History: Diagnosis Date Arthritis Back pain Cataract Chronic kidney disease stage 3 Deep vein thrombosis (CMS-HCC) Diabetes mellitus (CMS-HCC) Diabetes mellitus type 2, controlled (CMS-HCC) Fibromyalgia GERD (gastroesophageal reflux disease) Head injury recent fall/ bump on forehead HL (hearing loss) bilat hearing aids Hyperlipidemia Hypertension Infectious viral hepatitis as a child. patient uncertain of type Obesity Ovarian cancer ([facility]) 1994 PONV (postoperative nausea and vomiting) Rotator [...] index is 36.85 kg/m . Objective: Examination of the right shoulder the incision is fully healed. She can actively forward flex to around 90 . She has significant ecchymosis in the anterior shoulder around the incision. She also some swelling into the deltoid. She is tender palpation through the deltoid, anterior shoulder, and superior shoulder over the acromion Cardiovascular: Normal chest rise and fall. No visible venous distention. Resp: Normal breathing pattern, No obvious wheeze or difficulty breathing. ENT: Normocephalic. eyes equal, round. Throat midline. Mucous membranes appear moist. No visible masses Pysch: Patient is cooperative, pleasant, A&O X3. Appropriate Affect. Imaging: X-ray right shoulder showed stable appearing reverse total shoulder arthroplasty without any fracture, hardware failure, or dislocation Impression: Right shoulder pain and ecchymosis with history right reverse total shoulder arthroplasty on 04/04/2024 Plan/Disp: Structurally and functionally everything seems to be intact. At this point I am going to treat this like a muscle strain/possible partial tear. She is going to ice, try to avoid overdoing activity. As long as symptoms improve she can resume normal activity as tolerated in the next 2-3 weeks. If she does not improve next step would likely be CT scan to evaluate for any occult fracture. I, Dr Wolf, personally reviewed any pertinent patient imaging and was involved in the patient's treatment plan . I confirmed the accuracy and completeness of the aforementioned history prepared by the advance practice provider. DANIEL WOLF MD [employer] was used in the accident examiner of this note documented in this encounter [facility] 11-07-2024 Miscellaneous Notes 04/04/2024 right reverse total shoulder arthroplasty Patient called to state that her shoulder is black and blue, always sore. No fall. Was seen by PCP 11/06/2024. Please advise Please make her an appointment thanks Called patient and made appointment documented in this encounter [facility] 11-07-2024 Telephone encounter Note 04/04/2024 right reverse total shoulder arthroplasty Patient called to state that her shoulder is black and blue, always sore. No fall. Was seen by PCP 11/06/2024. Please advise [facility] 11-07-2024 Telephone encounter Note Please make her an appointment [facility] Phone: 11-07-2024 Telephone encounter Note Called patient and made appointment [facility] 10-16-2024 History of Present illness Narrative Images from the original note were not included. Subjective Patient ID: Ashley Olson is a 79 y.o. female who presents for DM Foot Care (Established patient presents today for diabetic nail care. PCP: Bernardino WEBER 08/2024, A1C: 6.2, BS: 133). HPI HPI Onychomycosis/Toenail Fungus: Presents requesting nail care. Symptomatic toenail deformity. Location: [...] topical measures. Risk factors: Type II diabetes. ASA therapy. Medical comorbidities. Polypharmacy. Mobility and flexibility restraints. Toenail deformity. Digital and/or shoe trauma and related complications. Aggravated by: shoe gear , pressure , walking; catching and snagging on clothing etc.. Medications Current Outpatient Medications: Ascorbic Acid (vitamin C) 1000 MG tablet, 1 (one) time each day at the same time, Disp: , Rfl: aspirin 81 MG EC tablet, Take 81 mg by mouth Daily, Disp: , Rfl: Calcium Carbonate-Vitamin D (CALTRATE 600+D PO), , Disp: , Rfl: cetirizine (ZyrTEC) 10 MG tablet, 1 (one) time each day at the same time, Disp: , Rfl: cholecalciferol (Vitamin D-3) 50 MCG (1999 UT) tablet, , Disp: , Rfl: diphenhydrAMINE-acetaminophen (Tylenol PM) 25-500 MG per tablet, Take 2 tablets by mouth as needed at bedtime, Disp: , Rfl: DULoxetine (Cymbalta) [address] capsule, Take 1 capsule (60 mg) by mouth Daily Do not crush or chew., Disp: 90 capsule, Rfl: 1 Farxiga 5 MG, Take 5 mg by mouth Daily, Disp: , Rfl: ferrous sulfate 325 (65 Fe) MG tablet, Take 1 tablet by mouth every other day, Disp: , Rfl: fish oil-omega-3 fatty acids 1000 MG capsule, , Disp: , Rfl: latanoprost (Xalatan) 0.005 % ophthalmic solution, , Disp: , Rfl: magnesium 250 MG tablet, 1 (one) time each day at the same time, Disp: , Rfl: melatonin tablet, Take by mouth at bedtime, Disp: , Rfl: Multiple Vitamins-Minerals (One Daily For Women 50+ Adv) tablet, , Disp: , Rfl: ondansetron ODT (Zofran-ODT) 4 MG disintegrating tablet, Take 4 mg by mouth every 8 (eight) hours if needed, Disp: , Rfl: OneTouch Ultra test strip, 1 each by Other route if needed, Disp: , Rfl: traMADol (Ultram) 50 MG tablet, Take 50 mg by mouth every 6 (six) hours if needed, Disp: , Rfl: alendronate (Fosamax) 70 MG tablet, Take 1 tablet (70 mg) by mouth every 7 (seven) days Take in the morning with a full glass of water, on an empty stomach, and do not take anything else by mouth or lie down for the next 30 min., Disp: 12 tablet, Rfl: 1 amLODIPine (Norvasc) 5 MG tablet, Take 1 tablet (5 mg) by mouth Daily, Disp: 90 tablet, Rfl: 1 atorvastatin (Lipitor) 20 MG tablet, Take 1 tablet (20 mg) by mouth at bedtime, Disp: 90 tablet, Rfl: 1 gabapentin (Neurontin) 100 MG capsule, Take 1 capsule (100 mg) by mouth Daily, Disp: 90 capsule, Rfl: 1 losartan (Cozaar) 100 MG tablet, Take 1 tablet (100 mg) by mouth in the morning., Disp: 90 tablet, Rfl: 1 omeprazole (PriLOSEC) [address] capsule, Take 1 capsule (20 mg) by mouth in the morning. Take before meals., Disp: 90 capsule, Rfl: 1 Allergies Metformin, Other, Semaglutide, Soy allergy (obsolete), [...] Diabetes Brother Objective General Examination: GENERAL EXAMINATION: Alert and oriented. Pleasant disposition. FOOT EXAM: Date of Last Foot Exam: 10/16/2024 Sensory testing performed: sensations normal Sensory and [...] Carlos Baer DPM documented in this encounter [facility] 10-16-2024 Instructions Carlos Baer DPM - 10/16/2024 2:15 PM EDT As noted documented in this encounter [facility] 09-04-2024 Evaluation note Diagnosis Onset Date Resolution Dietary counseling and surveillance acute September 04, 2024 1:57pm Hyperlipidemia acute September 04, 2024 1:57pm Hypertension acute September 04 1:57pm Obesity, Class II, BMI 35-39.9 acute September 04, 2024 1:57pm Type 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 acute September 04, 2024 1:57pm ODALYS (generalized anxiety disorder) acute November 06 025 1:42pm Hypertension acute October 1:42pm Obesity, Class II, BMI 35-39.9 acute November 06, 2 025 1:42pm [facility] Work Phone: 1(286) 736-116807-08-2025 Evaluation note* Diagnosis Onset Date Resolution Status Admit Date [...] spinal stenosis acute Se ptember 2024 4:25pm [facility] Work Phone: 1(217) 413-306806-25-2025 History of Present illness Narrative* Dana Tapia, OTR [employer]AN [employer] - 08/22/2024 1:20 PM EDT Images from the original note were not included. Ashley Olson is a 79 y.o. female presents with chief complaint of ODALYS HPI: Here for recheck of duloxetine titration feels more like herself, happier No SI/HI, some dry mouth increase, but tolerable SUBJECTIVE: MEDICATIONS: Current Outpatient Medications Medication Instructions [...] tablet 2 tablets, Nightly PRN DULoxetine (CYMBALTA) 60 mg, Oral, Daily, Do not crush or [...] breast Age-related osteoporosis without current pathological fracture 02/18/2023 Allergic rhinitis, seasonal Arthritis Bulging lumbar disc Chronic pain CKD (chronic kidney disease) stage 3, GFR 30-59 ml/min ([facility]) COVID-19 virus detected DDD (degenerative disc disease), cervical Diabetes (HCC) Diabetic neuropathy (HCC) Dyspnea Encounter for screening mammogram for malignant neoplasm of breast 02/07/2023 Fibromyalgia Fracture of radial head, left, closed Granuloma annulare Hip pain, chronic, left Hives Hypercholesterolemia Hyperlipidemia Hypertension Hypertriglyceridemia Insomnia Kidney disease Menopause 02/07/2023 Neoplasm of uncertain behavior of back Obesity with body mass index (BMI) of 30.0 to 39.9 Osteoarthritis Osteopenia Ovarian cancer (HCC) Pain in both knees Rib pain on [...] in her mother. OBJECTIVE: Visit Vitals BP 140/84 (BP Location: Left arm, Patient Position: Sitting, BP Cuff Size: Adult long) Pulse 90 Temp 97.8 F (Temporal) Resp 18 Wt 212 lb SpO2 97% BMI 37.26 kg/m Smoking Status Never BSA 2.07 m [...] serious comorbidity and body mass index (BMI) of36.0 to 36.9 in adult ([facility]) - Primary Discussed with patient their BMI (actual, verses recommended). We have also discussed lifestyle modifications: attempts to perform physical activity as chronic conditions allow, also to monitor dietary intake: increasing protein/fruits/veggies and lowering carb intake (unless contraindicated). Limit sodas, juices, and sugary drinks ODALYS (generalized anxiety disorder) Last appt we increased the dose of duloxetine Doing well, no changes in dose * Dana Tapia NP - 08/22/2024 6:57 AM EDTAssociated Problem(s): ODALYS (generalized anxiety disorder) Last appt we increased the dose of duloxetine Doing well, no changes in dose * Dana Tapia NP - 08/22/2024 6:56 AM EDTAssociated Problem(s): Class 2 severe obesity due to excess calories with serious comorbidity and body mass index (BMI) of 36.0 to 36.9 in adult ([facility]) Discussed with patient their BMI (actual, verses recommended). We have also discussed lifestyle modifications: attempts to perform physical activity as chronic conditions allow, also to monitor dietary intake: increasing protein/fruits/veggies and lowering carb intake (unless contraindicated). Limit sodas, juices, and sugary drinks documented in this encounterNOMS [id number] Instructions* Patient Instructions* Dana Tapia NP - 08/22/2024 1:20 PM EDT Continue all meds, no dose changes documented in this [facility]05-19-2025 History of Present illness Narrative* Carlos Baer DPM - 07/16/2024 2:30 PM EDT Images from the original note were not included. Subjective Patient ID: Ashley Olson is a 79 y.o. female who presents for Diabetic nail care (Ashley Olson is a 79 y.o. female who presents for DM Foot Care. PCP: Bernardino Talavera LV: 03/19/2024 A1C: 5.5,BS: 122 SS: 8.5-9). HPI HPI Onychomycosis/Toenail Fungus: established [...] on clothing etc.. Medications Current Outpatient Medications: alendronate (Fosamax) 70 MG tablet, Take 1 tablet (70 mg) by mouth every 7 (seven) days Take in themorning with a full glass of water, on [...] at bedtime, Disp: , Rfl: DULoxetine (Cymbalta) [address] capsule, Take 1 capsule (60 mg) by mouth Daily Do not crush or chew., Disp: 90 capsule, Rfl: 1 Farxiga 5 MG, Take 5 mg by [...] , Rfl: meloxicam (Mobic) 15 MG tablet, Take 1 tablet (15 mg) by mouth Daily, Disp: 90 tablet, Rfl: 1 Multiple Vitamins-Minerals (One Daily For Women 50+ Adv) tablet, as directed Orally, Disp: , Rfl: omeprazole (PriLOSEC) [address] capsule, Take 1 capsule (20 mg) by mouth in the morning. Take beforemeals., Disp: 90 capsule, Rfl: 1 ondansetron ODT (Zofran-ODT) 4 MG disintegrating tablet, Take 4 mg by mouth every 8 (eight) hours if needed, Disp: , Rfl: OneTouch Ultra test strip, 1 each by Other route if needed, Disp: , Rfl: traMADol (Ultram) 50 MG tablet, Take 50 mg by mouth every 6 (six) hours if needed, Disp: , Rfl: Allergies Metformin, [...] FOOT EXAM: Date of Last Foot Exam 07/16/2024 Sensory testing performed: sensations normal Sensory and [...] understanding. Carlos Baer DPM documented in this [facility]05-19-2025 Instructions* Patient Instructions* Carlos Baer DPM - 07/16/2024 2:30 PM EDT As noted [id number] History of Present illness Narrative* Dana Tapia NP - 07/12/2024 2:18 PM EDTAssociated Problem(s): ODALYS (generalized anxiety disorder) ([facility]) Increase dose on duloxetine * Dana Tapia NP - 07/12/2024 2:17 PM EDTAssociated Problem(s): Fibromyalgia Increase dose on duloxetine * JOSÉ EL - 07/12/2024 1:40 PM EDT Pt found a new chiropractor Tuesday- he had xrays done on her, she goes back next to go over his plan Pt was unable to do therapy do to her having PT already with her arm. She had to stop PT with her arm because her nerves in her neck are inflamed. * Dana Tapia NP - 07/12/2024 1:40 PM EDT Images from the original note were not included. Ashley Olson is a 79 y.o. female presents with chief complaint of Back Pain HPI: Here for recheck of lumbar back pain: was not able to do PT d/t could not do both on same day Mood has been down, gaining weight, feels frustrated, no SI/HI Would like to have duloxetine increased SUBJECTIVE: MEDICATIONS: Current Outpatient Medications Medication Instructions alendronate (FOSAMAX) 70 mg, Oral, Every 7 days, Take in the morning with a full glass of water, alexander empty stomach, and do not take anything else by mouth or lie down for the next 30 min. amLODIPine (NORVASC) 5 mg, Oral, Daily amoxicillin (Amoxil) 500 MG capsule Take 2 capsules 1 hour prior to dental cleaning, then take 2 capsules every 12 hours after cleaning until gone Ascorbic Acid (vitamin C) 1000 MG tablet Every 24 hours aspirin 81 mg, Daily atorvastatin (LIPITOR) 20 mg, Oral, Nightly Calcium Carbonate-Vitamin D (CALTRATE 600+D PO) Caltrate 600+D cetirizine (ZyrTEC) 10 MG tablet Every 24 hours cholecalciferol (Vitamin D-3) 50 MCG (1999 UT) tablet Vitamin D3 diphenhydrAMINE-acetaminophen (Tylenol PM) 25-500 MG per tablet 2 tablets, Nightly PRN DULoxetine (CYMBALTA) 60 mg, Oral, Daily, Do not crush or [...] for arthralgias and back pain. Negative for joint swelling and myalgias. Skin: Negative for rash and wound. Neurological: Negative for dizziness, tremors, seizures, syncope and headaches. Psychiatric/Behavioral: Negative for behavioral problems, self-injury and suicidal ideas. The patient is not nervous/anxious. Depression Hematological: Does not bruise/bleed easily. Endocrine: Negative for polydipsia, polyphagia and polyuria. Allergic/Immunologic: Negative for environmental allergies and food allergies. PAST MEDICAL HISTORY Past Medical History: Diagnosis Date Abnormal mammogram of left breast Age-related osteoporosis without current pathological fracture (CMS/HCC) 02/18/2023 Allergic rhinitis, seasonal Arthritis Bulging lumbar disc Chronic pain CKD (chronic kidney disease) stage 3, GFR 30-59 ml/min ([facility]) (CMS/HCC) COVID-19 virus detected DDD (degenerative disc [...] ovaries due to cancer [facility]NEE SURGERY Bilateral 2015 Dr. Ramy OTHER SURGICAL HISTORY 10/03/2018 SK Removal ROTATOR [...] in her mother. OBJECTIVE: Visit Vitals BP 142/90 (BP Location: Left arm, Patient Position: Sitting, BP Cuff Size: Adult long) Pulse 91 Temp 98.7 F (Temporal) Resp 18 Wt 211 lb 6.4 oz SpO2 93% BMI 36.86 kg/m Smoking Status Never BSA 2.07 m [...] Follow up in about 6 weeks (around 08/23/2024) for Recheck. Problem List Items Addressed This Visit Fibromyalgia Increase dose on duloxetine Relevant Medications DULoxetine (Cymbalta) [address] jamie Hyperlipidemia (CMS/HCC) Relevant Medications atorvastatin (Lipitor) 20 MG tablet Class 2 severe obesity due to excess calories with serious comorbidity and body mass index (BMI) of36.0 to 36.9 in adult (CMS/HCC) - Primary Discussed with patient their BMI (actual, verses recommended). We have also discussed lifestyle modifications: attempts to perform physical activity as chronic conditions allow, also to monitor dietary intake: increasing protein/fruits/veggies and lowering carb intake (unless contraindicated). Limit sodas, juices, and sugary drinks Age-related osteoporosis without current pathological fracture ([facility]) Relevant Medications alendronate (Fosamax) 70 MG tablet ODALYS (generalized anxiety disorder) ([facility]) Increase dose on duloxetine Relevant Medications DULoxetine (Cymbalta) [address] capsule Back pain of lumbar region with sciatica Last appt ordered PT could not go Going to see chiropractor Other Visit Diagnoses 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 elsewhere ([facility]) Relevant Medications DULoxetine (Cymbalta) [address] capsule * Dana Tapia NP - 07/12/2024 6:49 AM EDTAssociated Problem(s): Back pain of lumbar region with sciatica Last appt ordered PT could not go Going to see chiropractor * Dana Tapia NP - 07/12/2024 6:49 AM EDTAssociated Problem(s): Class 2 severe obesity due to excess calories with serious comorbidity and body mass index (BMI) of 36.0 to 36.9 in adult ([facility]) Discussed with patient their BMI (actual, verses recommended). We have also discussed lifestyle modifications: attempts to perform physical activity as chronic conditions allow, also to monitor dietary intake: increasing protein/fruits/veggies and lowering carb intake (unless contraindicated). Limit sodas, juices, and sugary drinks documented in this encounterC[id number] Instructions* Patient Instructions* Dana Tapia NP - 07/12/2024 1:40 PM EDT Increase duloxetine to 60mg daily (if you have 30mg ones left at home you may take 2 pills to [id number]) documented in this encounterCox [facility] [id number] Miscellaneous Notes* Telephone Encounter - Marlyn Whitlock - 07/11/2024 2:[address] Reynoso patient has a dentist appointment would like her premeds Pharmacy confirmed [facility] * Telephone Encounter - LORENA Romero - 07/11/2024 2:29 PM EDT Prescription for amoxicillin sent to her pharmacy. * Telephone Encounter - Marlyn Whitlock - 07/11/2024 2:29 PM EDT Left message VM [facility] called [facility] Tele[facility] encounter Note* Telephone Encounter - Marlyn Whitlock - 07/11/2024 2:[address] Reynoso patient has a dentist appointment would like her premeds Pharmacy confirmed [facility] Telephone encounter Note* Telephone Encounter - LORENA Romero - 07/11/2024 2:29 PM EDT Prescription for amoxicillin sent to her pharmacy. [facility]05-14-[facility] Telephone encounter Note* Telephone Encounter - Marlyn Whitlock - 07/11/2024 2:29 PM EDT Left message VM prescription called in [facility]25 History of Present illness Narrative* Daniel Wolf MD - 06/28/2024 10:20 AM EDT Patient ID: Ashley Olson is a 79 y.o. female. SUBJECTIVE: Patient returns for re-evaluation status post right reverse total shoulder arthroplasty 04/04/2024.Pain with strenuous activities and limitation in her motion. She she tried therapy with some mild improvement in her symptoms. Denies any wound healing problems. No numbness tingling fevers chills night sweats. Past Medical History: Diagnosis Date Arthritis Back pain Cataract Chronic kidney disease stage 3 Deep vein thrombosis ([facility]) Diabetes mellitus ([facility]) Diabetes mellitus type 2, controlled ([facility]) Fibromyalgia GERD (gastroesophageal reflux disease) Head injury recent fall/ bump on forehead HL (hearing loss) bilat hearing aids Hyperlipidemia Hypertension Infectious viral hepatitis as a child. patient uncertain of type Obesity Ovarian cancer ([facility]) 1994 PONV (postoperative nausea and vomiting) Rotator [...] 12/24/2016 Performed by Kai Blackwell MD at [facility] HYSTERECTOMY Ovarian CA JOINT REPLACEMENT Bilateral knee replacement OVARY SURGERY ovarian cancer PHACO KELMAN I IMPLANT INTRAOCULAR LENS I-STENT Left 04/18/2018 Performed by Glenna Egan MD at [facility] PHACO KELMAN I IMPLANT INTRAOCULAR LENS I-STENT Right 04/04/2018 Performed by Glenna Egan MD at [facility] REVERSE ARTHROPLASTY TOTAL SHOULDER Right 04/04/2024 Performed by Daniel Wolf MD at [facility] UMBILICAL HERNIA REPAIR Current Outpatient Medications Medication Sig Dispense Refill alendronate (FOSAMAX) 70 mg tablet Take 1 tablet (70 mg total) by mouth every 7 days. In a.m. with water on empty stomach, nothing else by mouth and remain upright for 30min saturdays amLODIPine (NORVASC) 10 mg tablet Take 0.5 tablets (5 mg total) by mouth in the morning. 3 ascorbic acid, vitamin C, (VITAMIN C) 1000 mg tablet Take 1 tablet (1,000 mg total) by mouth in themorning. aspirin 81 mg Take 1 tablet (81 mg total) by mouth in the morning. Begin taking day AFTER total joint replacement. 30 tablet 0 atorvastatin (LIPITOR) 20 mg tablet Take 1 tablet (20 mg total) by mouth in the morning. calcium carbonate-vitamin D3 (OSCAL 500 + D) 500 mg(1,250mg) -200 units per tablet Take 1 tablet bymouth in the morning and 1 tablet in the evening. Take with meals. cetirizine (ZyrTEC) 10 mg tablet 4 cholecalciferol, vitamin D3, 2,000 units capsule Take 1 capsule (2,000 Units total) by mouth in themorning. diphenhydrAMINE-acetaminophen (TYLENOL PM) 25-500 mg tablet Take 1 tablet by mouth nightly as needed for sleep. DOCOSAHEXANOIC ACID/EPA (FISH OIL ORAL) Take by mouth in the morning. FARXIGA 5 [...] 1 capsule (100 mg total) by mouth in the morning. 4 latanoprost (XALATAN) 0.005 % ophthalmic solution Administer 1 drop to both eyes nightly. losartan (COZAAR) 100 mg tablet Take 1 tablet (100 mg total) by mouth in the morning. MAGNESIUM CARBONATE ORAL Take 250 mg by mouth in the morning. melatonin tablet Take by mouth nightly. meloxicam (MOBIC) 15 mg tablet Take 1 tablet (15 mg total) by mouth in the morning. lwpthcgo-cyrw-AD-calcium &mins (THERAGRAN-M) 9 mg iron-400 mcg tablet Take 1 tablet by mouth inthe morning. traMADoL (ULTRAM) 50 mg tablet Take 1 tablet (50 mg total) by mouth every 6 (six) hours as needed for pain. 28 tablet 0 No current facility-administered medications for this visit. [...] shoulder surgical scar no signs of infection. Intact axillary nerve function. Forward [id number] abduction to 45 external rotation 35 internal rotation SI joint. Distally neurovascular intact IMAGING/LABS: No new imaging obtained today ASSESSMENT: Status post right reverse total shoulder arthroplasty 04/04/2024 PLAN: Patient is making slow but steady progress on her right shoulder. She was instructed to continue with [id number] exercises and limitation of any heavy lifting. She will follow up in 2 months to evaluate her progress. DANIEL WOLF MD [facility] Evaluation note* Diagnosis Onset Date Resolution Status Admit Date CKD (chronic kidney disease) stage 3, GFR 30-59 ml/min acute June 12, 2024 1:54pm Hypertensive chronic kidney disease with stage 1 through stage 4 chronic ki acute June 12, 2024 1:54pm Hypomagnesemia acute May 1:54pm Iron deficiency acute May 1:54pm Secondary hyperparathyroidism acute June 12, 2024 1:54pm Type 2 diabetes mellitus wit h diabetic chronic kidney disease acute June 12, 2024 1:54pm Vitamin D deficiency acute Apri l 2024 1:54pm Dietary counseling and surveillance acute September 04, 2024 1:57pm Hyperlipidemia acute September 04, 2024 1:57pm Hypertension acute September 04 1:57pm Obesity, Class II, BMI 35-39.9 acute September 04, 2024 1:57pm Type 2 diabetes mellitus wit h diabetic chronic kidney disease acute September 04, 2024 1:57pm [facility] Work Phone: 1(569) 738-284704-10-2025 History of Present illness Narrative* Daniel Wolf MD - 06/07/2024 9:10 AM EDT Patient ID: Ashley Olson is a 79 y.o. female. SUBJECTIVE: Patient returns for evaluation status post right reverse total shoulder arthroplasty 04/04/2024. States she continues have some pain worse with strenuous activities and performing therapy. Denies anynumbness tingling fevers chills night sweats. No problems with wound healing. Past Medical History: Diagnosis Date Arthritis Back pain Cataract Chronic kidney disease stage 3 Deep vein thrombosis ([facility]) Diabetes mellitus ([facility]) Diabetes mellitus type 2, controlled (CMS-HCC) Fibromyalgia [...] 10/05/2023 Performed by Jeffrey Schilling DO at [facility] BLEPHAROPLASTY OPHTH Bilateral 04/03/2019 Performed by Glenna Egan MD at [facility] BREAST BIOPSY Right 06/12/1991 BURSECTOMY Right right hip COLONOSCOPY N/A 02/18/2022 Performed by Paco Ghosh DO at [facility] COLONOSCOPY N/A 12/24/2016 Performed by Kai Blackwell MD at [facility] HYSTERECTOMY Ovarian CA JOINT REPLACEMENT Bilateral knee replacement OVARY SURGERY ovarian cancer PHACO KELMAN I IMPLANT INTRAOCULAR LENS I-STENT Left 04/18/2018 Performed by Glenna Egan MD at [facility] PHACO KELMAN I IMPLANT INTRAOCULAR LENS I-STENT Right 04/04/2018 Performed by Glenna Egan MD at [facility] REVERSE ARTHROPLASTY TOTAL SHOULDER Right 04/04/2024 Performed by Daniel Wolf MD at [facility] UMBILICAL HERNIA REPAIR Current Outpatient Medications Medication [...] tablet (1,000 mg total) by mouth in themorning. aspirin 81 mg Take 1 tablet (81 mg total) by mouth in the morning. Begin taking day AFTER total joint replacement. 30 tablet 0 atorvastatin (LIPITOR) 20 mg tablet Take 1 tablet (20 mg total) by mouth in the morning. calcium carbonate-vitamin D3 (OSCAL 500 + D) 500 mg(1,250mg) -200 units per tablet Take 1 tablet bymouth in the morning and 1 tablet in the evening. Take with meals. cetirizine (ZyrTEC) 10 mg tablet TAKE 1 TABLET ONCE A DAY ORALLY 90 DAYS 4 cholecalciferol, vitamin D3, 2,000 units capsule Take 1 capsule (2,000 Units total) by mouth in themorning. diphenhydrAMINE-acetaminophen (TYLENOL PM) 25-500 mg tablet Take [...] mg total) by mouth in the morning. kyvhqyzv-ujtf-NK-calcium &mins (THERAGRAN-M) 9 mg iron-400 mcg tablet Take 1 tablet by mouth inthe morning. No current facility-administered medications for this [...] signs of infection. No significant swelling. Pain with attempted passive range of motion of the shoulder. Intact axillary nerve function. Distally neurovascular intact. IMAGING/LABS: No new imaging obtained today. ASSESSMENT: Status post right reverse total shoulder arthroplasty 04/04/2024 PLAN: Patient will continue with gentle axjfh-nf-[id number] exercises and hold on therapy for week. She was written for refill on her pain medicine. She will follow up in 2 weeks to evaluate her progress. DANIEL WOLF MD [facility] History of Present illness Narrative* Dana Tapia NP - 05/30/2024 3:17 PM EDTAssociated Problem(s): Back pain of lumbar region with sciatica Not going to change NSAID, no muscle relaxer d/t polypharmacy Will order PT Fu in 4-6 weeks * JOSÉ EL - 05/30/2024 2:40 PM EDT Sciatica pain for the last couple months- lower back into right leg. Tangling sensation and pain in right foot when standing. PT shown her exercises that she could do however they are not helping with the pain. Pt takes tylenol for pain. Pt states that it is usually goes from dull achy to a 7 throughout the day and at night when layingdown it goes over a 10 in pain Pt needs a refill on the deangelo * Dana Tapia NP - 05/30/2024 2:40 PM EDT Ashley Olson is a 79 y.o. female [...] breast Age-related osteoporosis without current pathological fracture ([facility]) 02/18/2023 Allergic rhinitis, seasonal Arthritis Bulging lumbar [...] serious comorbidity and body mass index (BMI) of36.0 to 36.9 in adult (CMS/HCC) - Primary [...] Medications omeprazole (PriLOSEC) [address] capsule * Dana Tapia NP - 05/30/2024 7:00 AM EDTAssociated Problem(s): Class 2 severe obesity due to excess calories with serious comorbidity and body mass index (BMI) of 36.0 to 36.9 in adult ([facility]) Discussed with patient their BMI (actual, verses recommended). We have also discussed lifestyle modifications: attempts to perform physical activity as chronic conditions allow, also to monitor dietary intake: increasing protein/fruits/veggies and lowering carb intake (unless contraindicated). Limit sodas, juices, and sugary drinks documented in this encounterCox Walnut [id number] Instructions* Patient Instructions* Dana Tapia NP - 05/30/2024 2:40 PM EDT PT documented in this [facility]03-20-2025 History of Present illness Narrative* Daniel Wolf MD - 05/17/2024 10:20 AM EDT Patient ID: Ashley Olson is a 79 y.o. female. SUBJECTIVE: Patient returns for evaluation status post right reverse total shoulder arthroplasty 04/04/2024. States she has had recent flare-up of pain and difficulty progressing with motion. Denies any wound healing problem. No numbness tingling fevers chills night sweats. Past Medical History: Diagnosis Date Arthritis Back pain Cataract Chronic kidney disease stage 3 Deep vein thrombosis ([facility]) Diabetes mellitus ([facility]) Diabetes mellitus type 2, controlled ([facility]) Fibromyalgia GERD (gastroesophageal reflux disease) Head injury recent fall/ bump on forehead HL (hearing loss) bilat hearing aids Hyperlipidemia Hypertension Infectious viral hepatitis as a child. patient uncertain of type Obesity Ovarian cancer ([facility]) 1994 PONV (postoperative nausea and [...] 12/24/2016 Performed by Kai Blackwell MD at [facility] HYSTERECTOMY Ovarian CA JOINT REPLACEMENT Bilateral knee replacement OVARY SURGERY ovarian cancer PHACO KELMAN I IMPLANT INTRAOCULAR LENS I-STENT Left 04/18/2018 Performed by Glenna Egan MD at [facility] PHACO KELMAN I IMPLANT INTRAOCULAR LENS I-STENT Right 04/04/2018 Performed by Glenna Egan MD at [facility] REVERSE ARTHROPLASTY TOTAL SHOULDER Right 04/04/2024 Performed by Daniel Wolf MD at [facility] UMBILICAL HERNIA REPAIR Current Outpatient Medications Medication [...] tablet (1,000 mg total) by mouth in themorning. aspirin 81 mg Take 1 tablet (81 mg total) by mouth in the morning. Begin taking day AFTER total joint replacement. 30 tablet 0 atorvastatin (LIPITOR) 20 mg tablet Take 1 tablet (20 mg total) by mouth in the morning. calcium carbonate-vitamin D3 (OSCAL 500 + D) 500 mg(1,250mg) -200 units per tablet Take 1 tablet bymouth in the morning and 1 tablet in the evening. Take with meals. cetirizine (ZyrTEC) 10 mg tablet TAKE 1 TABLET ONCE A DAY ORALLY 90 DAYS 4 cholecalciferol, vitamin D3, 2,000 units capsule Take 1 capsule (2,000 Units total) by mouth in themorning. diphenhydrAMINE-acetaminophen (TYLENOL PM) 25-500 mg tablet Take [...] mg total) by mouth in the morning. hpeanqrr-rgpr-CG-calcium &mins (THERAGRAN-M) 9 mg iron-400 mcg tablet Take 1 tablet by mouth inthe morning. No current facility-administered medications for this [...] infection. No significant swelling. Pain and guarding withactive range of motion forward flexion 85 abduction 80 external rotation 35 internal rotation SI joint. Intact axillary nerve function. Distally neurovascular intact. IMAGING/LABS: No new imaging obtained today. ASSESSMENT: Status post right reverse total shoulder arthroplasty 04/04/2024 PLAN: Patient will continue working with motion and strengthening exercises. She was given another scriptfor therapy. She will follow up in 6 weeks to evaluate her progress. DANIEL WOLF MD documented in this encounterMer[facility] History of Present illness Narrative* Leo Goodwin, PT - 05/08/2024 1:30 PM EDT Images from the original note were not included. Physical Therapy Physical Therapy Treatment Visit Patient Name: Ashley Olson Today's Date: 05/08/2024 Encounter Diagnoses Name Primary? Acute pain of right shoulder Yes Status post reverse total arthroplasty of right shoulder Shoulder stiffness, right Visit number: 5 Time In: 1:20 pm Time Out: 2:05 pm Supervised Time: 39 min sup Total Time: 45 min total Subjective Ashley Olson 79 y.o. female presents to physical therapy [...] reported. 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 We have also discussed lifestyle modifications: attempts to perform physical activity as chronic conditions allow, also to monitor dietary intake: increasing protein/fruits/veggies and lowering carb intake (unless contraindicated). Limit sodas, juices, and sugary drinks Age-related osteoporosis without current pathological fracture ([facility]) Dexa: 02/19/23 Current med: columbax Encounter for subsequent annual wellness visit (AWV) in Medicare patient - Primary Reviewed Ht/Wt/BMI Recommend eye exam yearly Recommend dental exams twice a year Balance work/leisure activities Exercises is recommended most days of the week (appropriate as chronic conditions allow) Follow up yearly and prn Type 2 diabetes mellitus without complication, without long-term current use of insulin ([facility]) Check blood sugars daily, notify if <70 or >200. Take medications (pills or insulin) as directed. Monitor for s/s of hypoglycemia (sweaty, dizziness, nausea, vomiting, or shakiness). Watch for increase in thirst, urination, or appetite. Inspect feet frequently monitoring for open wounds , andalso recommend yearly eye exam. Pt should attempt to remain as physically active as chronic conditions allow, as well as trying to follow a diet low in carbohydrates, and simple sugars. Current meds: metformin and farxiga, as well as statin, asa, and arb A1c 5.5% 03/06/24 Dyllan Costellous Hypertensive chronic kidney disease with stage 1 through stage 4 chronic kidney disease, or unspecified chronic kidney disease (CMS/HCC) Continue with nephrology Recommend adequate bp and DM control as well Avoid nephrotoxic drugs IF possible, if taking close monitoring of risk/benefits Essential (primary) hypertension (CMS/HCC) Please check blood pressure daily and record DASH diet Limit caffeine Take medication as directed Contact office if chest pain, pressure, dizziness, shortness of breath, swelling legs Recommend slow position changes Current meds: losartan, amlodipine and asa Type 2 diabetes mellitus with diabetic neuropathy, unspecified (CMS/HCC) Continue with glucose control Takes gabapentin and duloxetine ]\ ] * Dana Tapia NP - 05/07/2024 7:14 AM EDTAssociated Problem(s): Encounter for subsequent annual wellness visit (AWV) in Medicare patient Reviewed Ht/Wt/BMI Recommend eye exam yearly Recommend dental exams twice a year Balance work/leisure activities Exercises is recommended most days of the week (appropriate as chronic conditions allow) Follow up yearly and prn * Dana Tapia NP - 05/07/2024 7:14 AM EDTAssociated Problem(s): Hyperlipidemia ([facility]) On statin therapy Check labs yearly and prn dose changes * Dana Tapia NP - 05/07/2024 7:13 AM EDTAssociated Problem(s): Type 2 diabetes mellitus without complication, without long-term current useof insulin ([facility]) Check blood sugars daily, notify if <70 or >200. Take medications (pills or insulin) as directed. Monitor for s/s of hypoglycemia (sweaty, dizziness, nausea, vomiting, or shakiness). Watch for increase in thirst, urination, or appetite. Inspect feet frequently monitoring for open wounds , andalso recommend yearly eye exam. Pt should attempt to remain as physically active as chronic conditions allow, as well as trying to follow a diet low in carbohydrates, and simple sugars. Current meds: metformin and farxiga, as well as statin, asa, and arb A1c 5.5% 03/06/24 Dyllan Mapus * Dana Tapia NP - 05/07/2024 7:13 AM EDTAssociated Problem(s): Class 2 severe obesity due to excess calories with serious comorbidity and body mass index (BMI) of 36.0 to 36.9 in adult ([facility]) Discussed with patient their BMI (actual, verses recommended). We have also discussed lifestyle modifications: attempts to perform physical activity as chronic conditions allow, also to monitor dietary intake: increasing protein/fruits/veggies and lowering carb intake (unless contraindicated). Limit sodas, juices, and sugary drinks * Dana Tapia NP - 05/07/2024 7:13 AM EDTAssociated Problem(s): Fibromyalgia Current medications: deangelo and duloxetine * Dana Tapia NP - 05/07/2024 7:12 AM EDTAssociated Problem(s): Age-related osteoporosis without current pathological fracture ([facility]) Dexa: 02/19/23 Current med: fosamax * Dana Tapia NP - 05/07/2024 7:12 AM EDTAssociated Problem(s): Gastroesophageal reflux disease Recommendations: freq small meals, nothing to eat or drink at least 2 hours prior to bed, limit caffeine, alcohol, as well as spicy foods Meds to limit or avoid if possible: NSAIDS Elevate HOB if possible Current med: omparzole Close monitor of renal function * Dana Tapia NP - 05/07/2024 7:11 AM EDTAssociated Problem(s): Hypertensive chronic kidney disease with stage 1 through stage 4 chronic kidney disease, or unspecified chronic kidney disease (CMS/HCC) Continue with nephrology Recommend adequate bp and DM control as well Avoid nephrotoxic drugs IF possible, if taking close monitoring of risk/benefits * Dana Tapia NP - 05/07/2024 7:11 AM EDTAssociated Problem(s): Essential (primary) hypertension (CMS/HCC) Please check blood pressure daily and record DASH diet Limit caffeine Take medication as directed Contact office if chest pain, pressure, dizziness, shortness of breath, swelling legs Recommend slow position changes Current meds: losartan, amlodipine and asa * Dana Tapia NP - 05/07/2024 7:11 AM EDTAssociated Problem(s): Type 2 diabetes mellitus with diabetic neuropathy, unspecified (CMS/HCC) Continue with glucose control Takes gabapentin and duloxetine documented in this encounterCox Walnut [id number] History of Present illness Narrative* Leo Goodwin, PT - 04/23/2024 12:30 PM EST Images from the original note were not included. Physical Therapy Physical Therapy Evaluation Visit Patient Name: Ashley Olson Today's Date: 04/23/2024 Encounter Diagnoses Name Primary? Acute pain of right shoulder Yes Status post reverse total arthroplasty of right shoulder Visit number: 1 Subjective Ashley Olson 79 y.o. female presents to physical therapy [...] above impairments for 2x/week for 6-12 weeks pendingpt needs/progress and orders at [facility] I hereby deem this POC medically necessary. Please sign below. Date: documented in this encounterCox Walnut [id number] History of Present illness Narrative* Daniel Wolf MD - 04/19/2024 9:50 AM EST 04/19/2024 Subjective: This is a 79-year-old female coming in for recheck of the right shoulder. She is statuspost right reverse total shoulder arthroplasty on 04/04/2024. [...] tablet (1,000 mg total) by mouth in themorning. aspirin 81 mg Take 1 tablet (81 mg total) by mouth in the morning. Begin taking day AFTER total joint replacement. 30 tablet 0 atorvastatin (LIPITOR) 20 mg tablet Take 1 tablet (20 mg total) by mouth in the morning. calcium carbonate-vitamin D3 (OSCAL 500 + D) 500 mg(1,250mg) -200 units per tablet Take 1 tablet bymouth in the morning and 1 tablet in the evening. Take with meals. cetirizine (ZyrTEC) 10 mg tablet TAKE 1 TABLET ONCE A DAY ORALLY 90 DAYS 4 cholecalciferol, vitamin D3, 2,000 units capsule Take 1 capsule (2,000 Units total) by mouth in themorning. diphenhydrAMINE-acetaminophen (TYLENOL PM) 25-500 mg tablet Take [...] mg total) by mouth in the morning. nsgqivxs-tocz-SO-calcium &mins (THERAGRAN-M) 9 mg iron-400 mcg tablet Take 1 tablet by mouth inthe morning. No current facility-administered medications for this [...] 12/24/2016 Performed by Kai Blackwell MD at [facility] HYSTERECTOMY Ovarian CA JOINT REPLACEMENT Bilateral knee replacement OVARY SURGERY ovarian cancer PHACO KELMAN I IMPLANT INTRAOCULAR LENS I-STENT Left 04/18/2018 Performed by Glenna Egan MD at [facility] PHACO KELMAN I IMPLANT INTRAOCULAR LENS I-STENT Right 04/04/2018 Performed by Glenna Egan MD at [facility] REVERSE ARTHROPLASTY TOTAL SHOULDER Right 04/04/2024 Performed by Daniel Wolf MD at [facility] UMBILICAL HERNIA REPAIR Past Medical History: Diagnosis Date Arthritis Back pain Cataract Chronic kidney disease stage 3 Deep vein thrombosis (CMS-HCC) Diabetes mellitus ([facility]) Diabetes mellitus type 2, controlled (CMS-HCC) Fibromyalgia [...] she is out of the house in sleepingfor the next 3-4 weeks. She is going to start physical therapy. Follow up in 1 month Abdiaziz was used in the accident examiner of this note documented in this encounterProSt. Mary'[facility]02-18-2025 History of Present illness Narrative* Carlos Taco Baer, DPM - 04/17/2024 2:15 PM EST Images from the original note were not included. Subjective Patient ID: Ashley Olson is a 79 y.o. female who presents for DM Foot Care (Ashley Olson is a 79 y.o. female who presents for DM Foot Care. PCP: Bernardino Talavera LV: 03/19/2024 A1C: 5.5, BS: 128 SS: [...] mg) by mouth in the morning. Take beforemeals., Disp: 90 capsule, Rfl: 1 ondansetron ODT [...] understanding. Carlos Baer DPM documented in this [facility]02-18-2025 Instructions* Patient Instructions* Carlos Baer DPM - 04/17/2024 2:15 PM EST As noted documented in this [facility]01-22-2025 History and physical note * LORENA Contreras - 03/21/2024 1:45 PM EST PRE-ADMISSION TESTING HISTORY AND PHYSICAL EXAM DATE: 03/21/24 PCP: DANA TAPIA APRN-LIZETTE CHIEF COMPLAINT: right shoulder pain HISTORY OF PRESENT ILLNESS: Ashley Olson, a 79 y.o. White or female, presents to [facility] for a pre-surgical H&P for REVERSE ARTHROPLASTY TOTAL SHOULDER RIGHT with Daniel Wolf MD on 04/04/24. The patienthas been diagnosed with Pre-Op Diagnosis Codes: * [...] doing her hair. She cannot reach. She hastrouble sleeping at night due to pain. She is now getting left shoulder pain. She takes tylenol forpain. Radiographs of her right shoulder demonstrated metallic [...] kidney disease stage 3 Deep vein thrombosis ([facility]) Diabetes mellitus ([facility]) Diabetes mellitus type 2, controlled ([facility]) Fibromyalgia GERD (gastroesophageal reflux disease) Head injury recent fall/ bump on forehead HL (hearing loss) bilat hearing aids Hyperlipidemia Hypertension Infectious viral hepatitis as a child. patient uncertain of type Obesity Ovarian cancer ([facility]) 1994 PONV (postoperative nausea and vomiting) Rotator [...] 12/24/2016 Performed by Kai Blackwell MD at [facility] HYSTERE[facility]OM[facility] Ovarian CA JOINT REPLACEMENT Bilateral [...] total) by mouth once daily., Disp: , Rfl:3 ascorbic acid, vitamin C, (VITAMIN C) 1000 [...] total) by mouth in the morning., Disp: ,Rfl: FARXIGA 5 mg tablet, Take 1 tablet (5 mg total) by mouth in the morning., Disp: , Rfl: ferrous sulfate 325 (65 FE) mg tablet, Take 1 tablet (325 mg total) by mouth in the morning., Disp:, Rfl: gabapentin (NEURONTIN) 100 mg capsule, Take [...] mouth in the morning., Disp: , Rfl: abclufbb-ztwh-UV-calcium &mins (THERAGRAN-M) 9 mg iron-400 mcg tablet, Take 1 tablet by mouth in the morning., Disp: , Rfl: alendronate (FOSAMAX) 70 mg tablet, Take 1 tablet (70 mg total) by mouth every 7 days. In a.m. withwater on empty stomach, nothing else by mouth [...] 1 drop to both eyes nightly., Disp: ,Rfl: REVIEW OF SYSTEMS: Review of Systems Constitutional: [...] the most recent lab values available in [facility] at the time ofthe office visit and additional labs may have been drawn since that time. ASSESSMENT / DIAGNOSIS: Pre-Op Diagnosis Codes: * Rotator cuff arthropathy of right shoulder [M12.811] PLAN: Ashley Olson is scheduled for REVERSE ARTHROPLASTY TOTAL SHOULDER RIGHT with Daniel Wolf MD on 04/04/24 LORENA Contreras 03/21/24 1436 [employer] Work Phone: [phone]) 267-357601-22-2025 History and physical note* LORENA Contreras - 03/21/2024 1:45 PM EST PRE-ADMISSION TESTING HISTORY AND PHYSICAL EXAM DATE: 03/21/24 PCP: DANA TAPIA APRN-LIZETTE CHIEF COMPLAINT: right shoulder pain HISTORY OF PRESENT ILLNESS: Ashley Olson, a 79 y.o. White or female, presents to [facility] for a pre-surgical H&P for REVERSE ARTHROPLASTY TOTAL SHOULDER RIGHT with Daniel Wolf MD on 04/04/24. The patienthas been diagnosed with Pre-Op Diagnosis Codes: * [...] doing her hair. She cannot reach. She hastrouble sleeping at night due to pain. She is now getting left shoulder pain. She takes tylenol forpain. Radiographs of her right shoulder demonstrated metallic [...] 3 Deep vein thrombosis (CMS-HCC) Diabetes mellitus ([facility]) Diabetes mellitus type 2, controlled ([facility]) Fibromyalgia GERD (gastroesophageal reflux disease) Head injury recent fall/ bump on forehead HL (hearing loss) bilat hearing aids Hyperlipidemia Hypertension Infectious viral hepatitis as a child. patient uncertain of type Obesity Ovarian cancer ([facility]) 1994 PONV (postoperative nausea and [...] 12/24/2016 Performed by Kai Blackwell MD at [facility] HYSTERECTOMY Ovarian CA JOINT REPLACEMENT Bilateral [...] total) by mouth once daily., Disp: , Rfl:3 ascorbic acid, vitamin C, (VITAMIN C) 1000 [...] total) by mouth in the morning., Disp: ,Rfl: FARXIGA 5 mg tablet, Take 1 tablet (5 mg total) by mouth in the morning., Disp: , Rfl: ferrous sulfate 325 (65 FE) mg tablet, Take 1 tablet (325 mg total) by mouth in the morning., Disp:, Rfl: gabapentin (NEURONTIN) 100 mg capsule, Take [...] mouth in the morning., Disp: , Rfl: lpamlmts-owiq-OI-calcium &mins (THERAGRAN-M) 9 mg iron-400 mcg tablet, Take 1 tablet by mouth in the morning., Disp: , Rfl: alendronate (FOSAMAX) 70 mg tablet, Take 1 tablet (70 mg total) by mouth every 7 days. In a.m. withwater on empty stomach, nothing else by mouth [...] 1 drop to both eyes nightly., Disp: ,Rfl: REVIEW OF SYSTEMS: Review of Systems Constitutional: [...] the most recent lab values available in [facility] at the time ofthe office visit and additional labs may have been drawn since that time. ASSESSMENT / DIAGNOSIS: Pre-Op Diagnosis Codes: * Rotator cuff arthropathy of right shoulder [M12.811] PLAN: Ashley Olson is scheduled for REVERSE ARTHROPLASTY TOTAL SHOULDER RIGHT with Daniel Wolf MD on 04/04/24 LORENA Contreras 03/21/24 1436 documented in this encounterSpringfield HospitalSTinser01-22-2025 Instructions* Patient Instructions* Michell Summers RN - 03/21/2024 1:45 PM EST SURGERY DATE: 04/04/2024 ARRIVAL TIME: 0700am TOTAL KNEE/ HIP/ SHOULDER [facility]: Entrance # [facility] next to the Emergency Center. Bring a photo ID and your insurance card with you the day of surgery. If you have a Living Will / Durable Power of Hide Cleaner for Health Care which is not on file, please bring a copy with you the day of surgery. Please wash (tub bath or shower) NIGHT BEFORE surgery. Follow CHG WIPE Instructions. CHG WIPES and written instructions given. DO NOT apply deodorant, powder, lotion, aftershave, perfume, make-up, nail welsh. HOLD ASPIRIN and ASPIRIN PRODUCTS for 7 days prior to surgery. IF you have been prescribed ASPIRIN by your Pipe Manufacture Supervisor or primary care physician, CONTACT Pipe Manufacture Supervisor or physician about holding aspirin for surgery. HOLD NSAIDs - Ibuprofen, Motrin, Aleve, Celebrex, mobic, meloxicam, etc. for 3 days prior to surgery. You may use Tylenol. HOLD vitamins, minerals, herbal supplements, and Holistic supplements for 7 days prior to surgery. Examples: Ephedra, garlic, gingko, ginseng, fish oil, (Lovaza, Vascepa), Kava, Vitamin E, [place], Julia's Wort, [place], Vitamin E). (exceptions - continue [...] an anesthesia consent form. documented in this encounterMer[facility]01-20-2025 History of Present illness Narrative* Dana Tapia NP - 03/19/2024 3:20 PM ESTAssociated Problem(s): Pre-operative clearance All chronic conditions are stable and under control, she is compliant with meds as well No hx of CAD, EKG on file in office from 08/2023 normal No active sxs suggestive of angina Cleared for shoulder surgery * Dana Tapia NP - 03/19/2024 3:18 PM ESTAssociated Problem(s): Blurry vision, left eye Resolved, did see her eye doctor as well Told she had broken blood vessel behind both eyes and that bleeding would take about a month to resovle * Dana Tapia NP - 03/19/2024 3:17 PM ESTAssociated Problem(s): Type 2 diabetes mellitus without complication, without long-term current useof insulin ([facility]) Check blood sugars daily, notify if <70 or >200. Take medications (pills or insulin) as directed. Monitor for s/s of hypoglycemia (sweaty, dizziness, nausea, vomiting, or shakiness). Watch for increase in thirst, urination, or appetite. Inspect feet frequently monitoring for open wounds , andalso recommend yearly eye exam. Pt should attempt to remain as physically active as chronic conditions allow, as well as trying to follow a diet low in carbohydrates, and simple sugars. Current meds: metformin and farxiga, as well as statin, asa, and arb A1c 5.5% 03/06/24 Dyllan Mapus * Dana Tapia NP - 03/19/2024 3:15 PM ESTAssociated Problem(s): Gastroesophageal reflux disease Continues to use PPI, w close monitoring of renal function * Dana Tapia NP - 03/19/2024 3:15 PM ESTAssociated Problem(s): Essential (primary) hypertension (CMS/HCC) Please check blood pressure daily and record DASH diet Limit caffeine Take medication as directed Contact office if chest pain, pressure, dizziness, shortness of breath, swelling legs Recommend slow position changes Current meds: losartan, amlodipine and asa * Dana Tapia NP - 03/19/2024 2:20 PM EST Images from the original note [...] serious comorbidity and body mass index (BMI) of36.0 to 36.9 in adult ([facility]) - Primary Discussed with patient their BMI (actual, verses recommended). We have also discussed lifestyle modifications: attempts to perform physical activity as chronic conditions allow, also to monitor dietary intake: increasing protein/fruits/veggies and lowering carb intake (unless contraindicated). Limit sodas, juices, and sugary drinks. Age-related osteoporosis without current pathological fracture ([facility]) Relevant Medications alendronate (Fosamax) 70 MG tablet Type 2 diabetes mellitus without complication, without long-term current use of insulin ([facility]) Check blood sugars daily, notify if <70 or >200. Take medications (pills or insulin) as directed. Monitor for s/s of hypoglycemia (sweaty, dizziness, nausea, vomiting, or shakiness). Watch for increase in thirst, urination, or appetite. Inspect feet frequently monitoring for open wounds , andalso recommend yearly eye exam. Pt should attempt to remain as physically active as chronic conditions allow, as well as trying to follow a diet low in carbohydrates, and simple sugars. Current meds: metformin and farxiga, as well as statin, asa, and arb A1c 5.5% 03/06/24 Dyllan Mapus Essential (primary) hypertension ([facility]) Please check blood pressure daily and record [...] would take about a month to resovle * Dana Tapia NP - 03/19/2024 6:36 AM ESTAssociated Problem(s): Hematoma of frontal scalp Continue with icing at night Size is lessening Fu in 6 weeks * Dana Tapia NP - 03/19/2024 6:36 AM ESTAssociated Problem(s): Closed head injury Neg scans (CT head and cervical spine) Cont ice No acute neurological symptoms at this time * Dana Tapia NP - 03/19/2024 6:36 AM ESTAssociated Problem(s): Class 2 severe obesity due to excess calories with serious comorbidity and body mass index (BMI) of 36.0 to 36.9 in adult ([facility]) Discussed with patient their BMI (actual, verses recommended). We have also discussed lifestyle modifications: attempts to perform physical activity as chronic conditions allow, also to monitor dietary intake: increasing protein/fruits/veggies and lowering carb intake (unless contraindicated). Limit sodas, juices, and sugary drinks. documented in this [facility]01-20-2025 Instructions* Patient Instructions* Dana Tapia NP - 03/19/2024 2:20 PM EST Surgical clearance fu in 6 weeks for her AWV documented in this [facility]01-06-2025 History of Present illness Narrative* Dana Tapia NP - 03/05/2024 2:57 PM ESTAssociated Problem(s): Blurry vision, left eye Likely secondary to hematoma size and location No acute findings on eye exam today in office If she would like to reach out to her eye doctor for an exam she could do that as well * Dana Tapia NP - 03/05/2024 2:55 PM ESTAssociated Problem(s): Type 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 ([facility]/HCC) Follows with nephrology Continue to keep DM and HTN at goal * JOSÉ EL - 03/05/2024 2:00 PM EST Headaches have gotten better not as bad. Pt states her vision has gotten blurry in only the left eye since the accident. * Dana Tapia NP - 03/05/2024 2:00 PM EST Images from the original note were not included. Ashley Olson is a 79 y.o. female presents with chief complaint of hematoma HPI: Here for recheck of her scalp hematoma See notes from specialist Is now having some blurred vision in the left eye since the incident happened IBANZE's are better No dizziness no other complaints [...] serious comorbidity and body mass index (BMI) of36.0 to 36.9 in adult ([facility]) Discussed with patient their BMI (actual, verses recommended). We have also discussed lifestyle modifications: attempts to perform physical activity as chronic conditions allow, also to monitor dietary intake: increasing protein/fruits/veggies and lowering carb intake (unless contraindicated). Limit sodas, juices, and sugary drinks. Type 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 ([facility]) Follows with nephrology Continue to keep DM and HTN at goal Hypertensive chronic kidney disease with stage 1 through stage 4 chronic kidney disease, or unspecified chronic kidney disease ([facility]/HCC) Continue with nephrology Recommend adequate bp and DM control as well Avoid nephrotoxic drugs IF possible, if taking close monitoring of risk/benefits Essential (primary) hypertension ([facility]) Please check blood pressure daily and record DASH diet Limit caffeine Take medication as directed Contact office if chest pain, pressure, dizziness, shortness of breath, swelling legs Recommend slow position changes Current meds: losartan, amlodipine and asa Malignant neoplasm of unspecified ovary ([facility]/HCC) Hysterectomy in the past Hematoma of frontal [...] RESOLVED: Chronic kidney disease, stage 3a (HCC) (CMS/HCC) Type 2 diabetes mellitus with diabetic cataract (CMS/HCC) Type 2 diabetes mellitus with diabetic neuropathy, unspecified (CMS/HCC) Continue with glucose control Takes gabapentin and duloxetine RESOLVED: Morbid (severe) obesity due to excess calories (CMS/HCC) Body mass index (BMI) 35.0-35.9, adult Blurry vision, left eye Likely secondary to hematoma size and location No acute findings on eye exam today in office If she would like to reach out to her eye doctor for an exam she could do that as well * Dana Tapia NP - 03/05/2024 7:28 AM ESTAssociated Problem(s): Hematoma of frontal scalp See notations about plastics and trauma Does appear to be softening up and thickness is lessening as well Dr martinez exams as well, we did discuss her intermittent blurry vision, this is more towards evening and likely related to size of hematoma and swelling that extends to upper eye lid left * Dana Tapia NP - 03/05/2024 7:28 AM ESTAssociated Problem(s): Closed head injury Neg scans (CT head and cervical spine) Cont ice No acute neurological symptoms at this time * Dana Taipa NP - 03/05/2024 7:27 AM ESTAssociated Problem(s): Malignant neoplasm of unspecified ovary (CMS/HCC) Hysterectomy in the past * Dana Tapia NP - 03/05/2024 7:27 AM ESTAssociated Problem(s): Class 2 severe obesity due to excess calories with serious comorbidity and body mass index (BMI) of 36.0 to 36.9 in adult ([facility]) Discussed with patient their BMI (actual, verses recommended). We have also discussed lifestyle modifications: attempts to perform physical activity as chronic conditions allow, also to monitor dietary intake: increasing protein/fruits/veggies and lowering carb intake (unless contraindicated). Limit sodas, juices, and sugary drinks. * Dana Tapia NP - 03/05/2024 7:27 AM ESTAssociated Problem(s): Hypertensive chronic kidney disease with stage 1 through stage 4 chronic kidney disease, or unspecified chronic kidney disease ([facility]) Continue with nephrology Recommend adequate bp and DM control as well Avoid nephrotoxic drugs IF possible, if taking close monitoring of risk/benefits * Dana Tapia NP - 03/05/2024 7:26 AM ESTAssociated Problem(s): Essential (primary) hypertension ([facility]) Please check blood pressure daily and record DASH diet Limit caffeine Take medication as directed Contact office if chest pain, pressure, dizziness, shortness of breath, swelling legs Recommend slow position changes Current meds: losartan, amlodipine and asa * Dana Tapia NP - 03/05/2024 7:25 AM ESTAssociated Problem(s): Type 2 diabetes mellitus with diabetic neuropathy, unspecified ([facility]) Continue with glucose control Takes gabapentin and duloxetine documented in this encounterCox Walnut [id number] Instructions* Patient Instructions* Dana Tapia NP - 03/05/2024 2:00 PM EST Continue with ice to affected area, you can also apply neosporin to this as well documented in this encounterCox Walnut [id number] History of Present illness Narrative* Dana Tapia NP - 02/27/2024 8:42 PM ESTAssociated Problem(s): Essential (primary) hypertension ([facility]/HCC) Stable today * Dana Tapia NP - 02/27/2024 8:42 PM ESTAssociated Problem(s): Class 2 severe obesity due to [...] contraindicated). Limit sodas, juices, and sugary drinks. * Dana Tapia NP - 02/27/2024 8:38 PM ESTAssociated Problem(s): Closed head injury Neg scans (CT head and cervical spine) Cont ice No acute neurological symptoms at this time * Dana Tapia NP - 02/27/2024 8:37 PM ESTAssociated Problem(s): Hematoma of frontal scalp Consider plastics? To releave off pressure from hematoma Continue ice thearpy * Dana Tapia NP - 02/27/2024 6:40 PM EST Images from the original note were not included. Ashley Olson is a 79 y.o. female presents with chief complaint of No chief complaint on file. HPI: S/p fall , tripped over chair fell stiking face no LOC, was seen in [facility] on 02/20/24: CT headand cervical spine Overall is doing pretty well, [...] (ZOFRAN-ODT) 4 mg, Every 8 hours PRN [employer] Ultra test strip 1 each, As needed [...] breast Age-related osteoporosis without current pathological fracture ([facility]) 02/18/2023 Allergic rhinitis, seasonal Arthritis Bulging lumbar [...] She is obese. She is not ill-appearing, toxic- appearing or diaphoretic. HENT: Head: Normocephalic and atraumatic. [...] swelling about the eyes bilat L>R, large hematomanoted to left frontal region superior to the [...] serious comorbidity and body mass index (BMI) of36.0 to 36.9 in adult (CMS/HCC) Discussed with [...] symptoms at this time documented in this encounterCox Walnut [id number] History of Present illness Narrative* Dana Tapia NP - 02/06/2024 4:25 PM ESTAssociated Problem(s): Acute non-recurrent pansinusitis Finish atb OTC sinus meds for HBP Fluids, rest, fu if not better * Dana Tapia NP - 02/06/2024 4:23 PM ESTAssociated Problem(s): Essential (primary) hypertension (CMS/HCC) Stable on current meds * Dana Tapia NP - 02/06/2024 4:23 PM ESTAssociated Problem(s): Class 2 severe obesity due to [...] well as surgical options for weight loss. * JOSÉ EL - 02/06/2024 4:00 PM EST Pt has had symptoms that started Landon night with a sore throat, drainage, coughing, headaches, sinus pressure, teeth pain, swollen glands, hot and cold, and fatigue. * Dana Tapia NP - 02/06/2024 4:00 PM EST Images from the original note were not included. Ashley Olson is a 79 y.o. female presents with chief complaint of No chief complaint on file. HPI: Sinusitis This is a new problem. The current episode started in the past 7 days. The problem has been gradually worsening since onset. There has been no fever. The pain is moderate. Associated symptoms includecongestion, coughing (occ worse at HS when lying down), headaches, sinus pressure, sneezing, a sorethroat and swollen glands. Pertinent negatives include no [...] when lying down). Negative for shortness of breathand wheezing. Cardiovascular: Negative for chest pain, palpitations [...] breast Age-related osteoporosis without current pathological fracture ([facility]) 02/18/2023 Allergic rhinitis, seasonal Arthritis Bulging lumbar disc Chronic pain CKD (chronic kidney disease) stage 3, GFR 30-59 ml/min ([facility]) (CMS/HCC) COVID-19 virus detected DDD (degenerative disc [...] serious comorbidity and body mass index (BMI) of36.0 to 36.9 in adult (CMS/HCC) - Primary [...] options for weight loss. Essential (primary) hypertension ([facility]) Stable on current meds Acute non-recurrent pansinusitis Finish atb OTC sinus meds for HBP Fluids, rest, fu if not better Relevant Medications amoxicillin-clavulanate (Augmentin) 875-125 MG tablet documented in this [facility]12-09-2024 Instructions* Patient Instructions* Dana Tapia NP - 02/06/2024 4:00 PM EST Sinus infection: cool compress to face , antibiotic, fluids, rest Go back to pharmacy and ask for sinus meds for someone with high blood pressure Follow up if not better documented in this [facility]11-18-2024 History of Present illness Narrative* Carlos Baer DPM - 01/16/2024 2:15 PM EST Images from the original note were not included. Subjective Patient ID: Ashley Olson is a 78 y.o. female who presents for Diabetic nail care ( Ashley Tapia is a 78 y.o. female who presents [...] mg) by mouth in the morning. Take beforemeals., Disp: 90 capsule, Rfl: 1 alendronate (Fosamax) [...] understanding. Carlos Baer DPM documented in this encounterCox Walnut [id number] History of Present illness Narrative* Dana Tapia NP - 01/11/2024 2:53 PM ESTAssociated Problem(s): Primary osteoarthritis involving multiple joints Continue meloxicam, needs handicapped placard * Dana Tapia NP - 01/11/2024 2:51 PM ESTAssociated Problem(s): ODALYS (generalized anxiety disorder) ([facility]) Not worse with change out to duloxetine Fu in 6 weeks * Dana Tapia NP - 01/11/2024 2:51 PM ESTAssociated Problem(s): Fibromyalgia Cont deangelo and duloxetine at current dose Fu in 6 weeks consider does change if needed * Dana Tapia NP - 01/11/2024 2:50 PM ESTAssociated Problem(s): Essential (primary) hypertension (CMS/HCC) Please check blood pressure daily and record DASH diet Limit caffeine Take medication as directed Contact office if chest pain, pressure, dizziness, shortness of breath, swelling legs Recommend slow position changes * Dana Tapia NP - 01/11/2024 2:50 PM ESTAssociated Problem(s): 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 elsewhere (CMS/HCC) Continue with deangelo and duloxetine * JOSÉ EL - 01/11/2024 2:20 PM EST Pt found out yesterday she is going to have to get her shoulder replaced. Pt has been referred to dr scott for February. She did reach out to another dr, dr wolf at [facility] and she did not need a referral and she will see him next week for a consultation. Dr Alvarez is leaving the end of the month and has cancelled her PT due to therapy agitation the shoulder and was afraid to do a paininjection thinking that would agitate it even more as well. Pt states that the medication does not help with pain and she does not feel any different than before. * Dana Tapia NP - 01/11/2024 2:20 PM EST Images from the original note [...] breast Age-related osteoporosis without current pathological fracture ([facility]/HCC) 02/18/2023 Allergic rhinitis, seasonal Arthritis Bulging lumbar disc Chronic pain CKD (chronic kidney disease) stage 3, GFR 30-59 ml/min ([facility]) (CMS/HCC) COVID-19 virus detected DDD (degenerative disc [...] serious comorbidity and body mass index (BMI) of36.0 to 36.9 in adult (CMS/HCC) Discussed with [...] placard Age-related osteoporosis without current pathological fracture ([facility]/HCC) Med dose refill UTD on DEXA 02/19 Relevant Medications alendronate (Fosamax) 70 MG tablet Essential (primary) hypertension (CMS/HCC) Please check blood pressure daily and record DASH diet Limit caffeine Take medication as directed Contact office if chest pain, pressure, dizziness, shortness of breath, swelling legs Recommend slow position changes Relevant Medications amLODIPine (Norvasc) 5 MG tablet losartan (Cozaar) 100 MG tablet 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 elsewhere (CMS/HCC) Continue with deangelo and duloxetine ODALYS (generalized anxiety disorder) (CMS/[facility]) Not worse with change out to duloxetine Fu in 6 weeks * Dana Tapia NP - 01/11/2024 7:16 AM ESTAssociated Problem(s): Age-related osteoporosis without current pathological fracture ([facility]) Med dose refill UTD on DEXA 02/19 * Dana Tapia NP - 01/11/2024 7:15 AM ESTAssociated Problem(s): Class 2 severe obesity due to excess calories with serious comorbidity and body mass index (BMI) of 36.0 to 36.9 in adult ([facility]) Discussed with patient their BMI (actual, verses [...] options for weight loss. documented in this encounterCox Walnut [id number] Instructions* Patient Instructions* Dana Tapia NP - 01/11/2024 2:20 PM EST Keep all doses of meds the same documented in this encounterCox Walnut [id number] History of Present illness Narrative* Jeffrey España Tonie, - 01/10/2024 11:45 AM EST Images from the original note were [...] IMAGING: June 23, 2023 x-rays from the [facility] AP axillary and Y scapula of [...] if she desires a referral to another research specialist we would be happy to make referral, she states she would like to continue her care here. Tresa Schilling D.O. documented in this encounterCox Walnut [id number] History of Present illness Narrative* Leo Goodwin, PT - 01/06/2024 7:30 AM EST Physical Therapy Physical Therapy Treatment Visit Patient [...] deficits: pain, decreased ROM/flexibility, significant weakness Pain: 3/10 ant shoulder pain down bicep this a.m. had some mod to severe pain 2 days ago at desk atwork just doing paper work pt to RTD 01/10/24 probable injection. 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 documented in this encounterCox Walnut [id number] History of Present illness Narrative* May Pulido NP - 01/05/2024 9:45 AM EST Images from the original note were [...] to be reached in office, I recommend evaluationat nearest Emergency Room if any symptoms worsened or new symptoms develop for requiring urgent evaluation. 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10-14-2024 Evaluation note* Diagnosis Onset Date Resolution Status Admit Date CKD (chronic kidney disease) stage 3, GFR 30-59 ml/min acute November 2:14pm Hypertensive chronic kidney disease with stage 1 through stage 4 chronic ki acute December 11 2:14pm Hypomagnesemia acute December 112023 2:14pm Iron deficiency acute November 282023 2:14pm Secondary hyperparathyroidism acute December 12, 2023 2:14pm Type 2 diabetes mellitus wit h diabetic chronic kidney disease acute December 12, 2023 2:14pm Vitamin D deficiency acute 2023 2:14pm Dietary counseling and surveillance acute March 06 2:03pm Hyperlipidemia acute February 2:03pm Hypertension acute March 06, 2024 2:03pm Obesity, Class II, BMI 35-39.9 acute March 06, 2024 2:03pm Type 2 diabetes mellitus wit h diabetic chronic kidney disease acute March 06, 2024 2:03pm [facility] Work Phone: [phone]) 876-448410-14-2024 History of Present illness Narrative* May Pulido [...] develop for requiring urgent evaluation. 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 documented in this encounterCox Walnut [id number] History of Present illness Narrative* Dana Tapia NP - 11/28/2023 2:36 PM EDTAssociated Problem(s): ODALYS (generalized anxiety disorder) ([facility]) Stop with use of sertraline Start duloxetine [...] without complication, without long-term current useof insulin ([facility]) Continue with Dyllan Mapus * Dana Tapia [...] breast Age-related osteoporosis without current pathological fracture ([facility]/HCC) 02/18/2023 Allergic rhinitis, seasonal Arthritis Bulging lumbar disc Chronic pain CKD (chronic kidney disease) stage 3, GFR 30-59 ml/min ([facility]) (CMS/HCC) COVID-19 virus detected DDD (degenerative disc [...] complication, without long-term current use of insulin ([facility]/HCC) Continue with Dyllan Mapus Essential (primary) hypertension ([facility]/HCC) - Primary Stable on current med dose, and no changes Gets labs per Nephrology regularly 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 elsewhere ([facility]) Continue deangelo at 100mg daily Will add duloxetine to see if this helps as well Relevant Medications DULoxetine (Cymbalta) [address] capsule ODALYS (generalized anxiety disorder) (CMS/[facility]) Stop with use of sertraline Start duloxetine [...] [address] capsule documented in this encounterCox Walnut [id number] History of Present illness Narrative* Leo Goodwin, PT - 11/24/2023 12:30 PM EDT [...] Relieving factors: rest, ice, otc meds 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 Date: documented in this encounterCox Walnut [id number] History of Present illness Narrative* May Pulido [...] develop for requiring urgent evaluation. May Pulido APRN-COILER documented in this encounterCox Walnut [id number] History of Present illness Narrative* Carlos Baer, DENIA - 04/13/2023 2:15 PM EST Images from the original note were not included. Subjective Patient ID: Ashley Olson is a 78 y.o. female who presents for Nail care ( Ashley Olson is a 77 y.o. female who presents for Nail care. BS 120 A1C 6.0 (03/2023) [place] Dr. Bernardino Talavera 04/05/2023SS: 8.5-9).). HPI HPI Onychomycosis/Toenail Fungus: established [...] understanding. Carlos Baer DPM documented in this [facility]02-14-2024 Instructions* Patient Instructions* Carlos Baer DPM - 04/13/2023 2:15 PM EST Topical care measures as noted documented in this [facility]10-17-2023 Evaluation note* Encounter Date Diagnosis Assessment [...] due to the PPI. Continue oral magnesium [facility] Other 08-02-2023 Evaluation note* Encounter Date Diagnosis [...] it easier material was printed see above [facility] Other 04-11-2023 Evaluation note* Encounter Date Diagnosis [...] E61.1) Continue oral iron every other day. 11 Apr, 2023 Vitamin deficiency (ICD-10 - E56.9) MBD parameters including calcium, phosphorus, PTH and vitamin D are within the goal. Continue oral vitamin D. May, Hypomagnesemia (ICD-10 - E83.42) He has hypomagnesemia due to the PPI. Continue oral magnesium [facility] Other 02-01-2023 Evaluation note* Encounter Date Diagnosis [...] for One Touch Test Strips sent to [facility] 03/31/22 7. 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 Continue oral magnesium [facility] Other 07-27-2022 Evaluation note* Encounter Date Diagnosis [...] few days, discuss your symptoms with your fashion consultant selling. Follow-up with your family physician if no improvement in 2 to 3 days. Go to the ER for worsening symptoms or concerns Aug, Other General allergi c reactions home care material was printed [facility] Other 04-26-2022 Evaluation note* Encounter Date Diagnosis [...] it easier material was printed see above [facility] Other 04-20-2022 Evaluation note* Encounter Date Diagnosis [...] within the goal. Continue oral vitamin D. [facility] Other 04-12-2022 Evaluation note* Encounter Date Diagnosis Assessment Notes Treatment Notes Treatment Clinical Notes May, Type 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 (ICD-10 - E11.22) [facility] Other 10-26-2021 Evaluation note* Encounter Date Diagnosis [...] within the goal. Continue oral vitamin D. [facility] Other 10-20-2021 Evaluation note* Encounter Date Diagnosis [...] it easier material was printed see above [facility] Other 10-08-2021 Evaluation note* Encounter Date Diagnosis Assessment Notes Treatment Notes Treatment Clinical Notes Nov, Encounter for immunization (ICD-10 - Z23) Patient presents for COVID-19 vaccination BOOSTER. Pre-screening form answers evaluated with patient. Patient denies current illness or allergic reaction to component of COVID-19 vaccine. Patient provided with current copy of EUA. [facility] Other Chief complaint+Reason for visit Narrative* Chief Complaint 6 month f/u / meter Reason for Visit Dietary counseling a nd surveillance Hyperlipidemia Hypertension Type 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 [facility] Work Phone: Evaluation noteNo InformationNort [employer] Other Evaluation note* Diagnosis Dermatophytosis of nail- Primary Dystrophic nail Other specified disease of nail Pain around toenail, right foot Pain around toenail, left foot documented in this encounter [facility] noteNo assessment information availableSelect [facility] Work Phone: Evaluation note* Diagnosis Onset Date Resolution Status CKD (chronic kidney disease) stage 3, GFR 30-59 ml/min acute [id number] acute Hypomagnesemia acute Iron deficiency acute Secondary hyperparathyroidism acute Type 2 diabetes mellitus wit h diabetic chronic kidney disease acute Vitamin D deficiency acute [facility] Work Phone: Evaluation note* Diagnosis Onset Date Resolution Status Dietary counseling and surveillance acute Hyperlipidemia acute Hypertension acute Type 2 diabetes mellitus wit h diabetic chronic kidney disease acute [facility] Work Phone: Evaluation note* Diagnosis Acute pain of right shoulder- Primary Shoulder stiffness, right documented in this encounter [facility] HealthcareEvaluation note* Diagnosis Acute pain of right shoulder- Primary Shoulder stiffness, right documented in this encounter [facility] HealthcareEvaluation note* Diagnosis Acute pain of right shoulder- Primary Shoulder stiffness, right documented in this encounter [facility] HealthcareEvaluation note* Diagnosis Acute pain of right shoulder- Primary Shoulder stiffness, right documented in this encounter [facility] HealthcareEvaluation note* Diagnosis Onset Date Resolution Status BMI 34.0-34.9,adult acute Dietary counseling and surveillance acute Hyperlipidemia acute Hypertension acute Type 2 diabetes mellitus wit h diabetic chronic kidney disease acute CKD (chronic kidney disease) stage 3, GFR 30-59 ml/min acute [id number] acute Hypomagnesemia acute Iron deficiency acute Secondary hyperparathyroidism acute Type 2 diabetes mellitus wit h diabetic chronic kidney disease acute Vitamin D deficiency acute [facility] Work Phone: Evaluation note* Diagnosis Benign essential HTN (CMS/HCC)- Primary Gastroesophageal reflux disease without esophagitis Esophageal reflux Stage 3 chronic kidney disease, unspecified whether stage 3a or 3b CKD (HCC) ([facility]) Class 2 severe obesity due to excess calories with serious comorbidity and body mass index (BMI) of 36.0 to 36.9 in adult ([facility]) Menopause Symptomatic menopausal or female climacteric states Encounter for screening mammogram for malignant neoplasm of breast Encounter for subsequent annual wellness visit (AWV) in Medicare patient- Primary Benign essential HTN (CMS/HCC) Gastroesophageal reflux disease without esophagitis Esophageal reflux Stage 3 chronic kidney disease, unspecified whether stage 3a or 3b CKD (HCC) ([facility]) 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, without long-term current use of insulin, unspecified whether stage 3a or 3b CKD (HCC) ([facility]) Acute pain of right shoulder- Primary Class 2 severe obesity due to excess calories with serious comorbidity and body mass index (BMI) of 36.0 to 36.9 in adult ([facility]) Primary osteoarthritis involving multiple joints Preoperative clearance- Primary Unspecified pre-operative examination Type 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 ([facility]) Malignant neoplasm of unspecified ovary ([facility]) 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 elsewhere ([facility]) Secondary hyperparathyroidism of renal origin ([facility]) Secondary hyperparathyroidism (of renal origin) Hypertensive chronic kidney disease with stage 1 through stage 4 chronic kidney disease, or unspecified chronic kidney disease ([facility]) Age-related osteoporosis without current pathological fracture ([facility]) Essential (primary) hypertension ([facility]) Unspecified essential hypertension Type 2 diabetes mellitus with diabetic neuropathy, unspecified ([facility]) Secondary hyperparathyroidism ([facility]) Secondary hyperparathyroidism (of renal origin) Acute pain of right shoulder Essential (primary) hypertension ([facility])- Primary Unspecified essential hypertension Fibromyalgia Unspecified myalgia and myositis 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 elsewhere ([facility]) ODALYS (generalized anxiety disorder) ([facility]) Generalized anxiety disorder Type 2 diabetes mellitus without complication, without long-term current use of insulin ([facility]) Status post right rotator cuff repair- Primary documented in this encounter [facility] HealthcareEvaluation note* Diagnosis Benign essential HTN ([facility])- Primary Gastroesophageal reflux disease without esophagitis Esophageal reflux Stage 3 chronic kidney disease, unspecified whether stage 3a or 3b CKD (HCC) ([facility]) Class 2 severe obesity due to excess calories with serious comorbidity and body mass index (BMI) of 36.0 to 36.9 in adult ([facility]) Menopause Symptomatic menopausal or female climacteric states Encounter for screening mammogram for malignant neoplasm of breast Encounter for subsequent annual wellness visit (AWV) in Medicare patient- Primary Benign essential HTN ([facility]) Gastroesophageal reflux disease without esophagitis Esophageal reflux Stage 3 chronic kidney disease, unspecified whether stage 3a or 3b CKD (HCC) ([facility]) 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, without long-term current use of insulin, unspecified whether stage 3a or 3b CKD (HCC) ([facility]) Acute pain of right shoulder- Primary Class 2 severe obesity due to excess calories with serious comorbidity and body mass index (BMI) of 36.0 to 36.9 in adult ([facility]) Primary osteoarthritis involving multiple joints Preoperative clearance- [...] (CMS/HCC) Age-related osteoporosis without current pathological fracture ([facility]) Essential (primary) hypertension (CMS/HCC) Unspecified essential hypertension Type 2 diabetes mellitus with diabetic neuropathy, unspecified (CMS/HCC) Secondary hyperparathyroidism (CMS/HCC) Secondary hyperparathyroidism (of renal origin) Acute pain of right shoulder Essential (primary) hypertension (CMS/HCC)- Primary Unspecified essential hypertension Fibromyalgia Unspecified myalgia and myositis 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 elsewhere (CMS/HCC) ODALYS (generalized anxiety disorder) ([facility]) Generalized anxiety disorder Type 2 diabetes mellitus without complication, without long-term current use of insulin ([facility]) Acute pain of right shoulder- Primary Shoulder stiffness, right documented in this encounter [facility] HealthcareEvaluation note* Diagnosis Benign essential HTN (CMS/HCC)- Primary Gastroesophageal reflux disease without esophagitis Esophageal reflux Stage 3 chronic kidney disease, unspecified whether stage 3a or 3b CKD (HCC) ([facility]/HCC) Class 2 severe obesity due to excess calories with serious comorbidity and body mass index (BMI) of 36.0 to 36.9 in adult ([facility]) Menopause Symptomatic menopausal or female climacteric states [...] (BMI) of 36.0 to 36.9 in adult ([facility]) Primary osteoarthritis involving multiple joints Preoperative clearance- Primary Unspecified pre-operative examination Type 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 (CMS/HCC) Malignant neoplasm of unspecified ovary (CMS/HCC) 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 elsewhere ([facility]/HCC) Secondary hyperparathyroidism of renal origin ([facility]/HCC) Secondary hyperparathyroidism (of renal origin) Hypertensive chronic kidney disease with stage 1 through stage 4 chronic kidney disease, or unspecified chronic kidney disease (CMS/HCC) Age-related osteoporosis without current pathological fracture ([facility]/HCC) Essential (primary) hypertension (CMS/HCC) Unspecified essential hypertension Type 2 diabetes mellitus with diabetic neuropathy, unspecified (CMS/HCC) Secondary hyperparathyroidism (CMS/HCC) Secondary hyperparathyroidism (of renal origin) Acute pain of right shoulder Essential (primary) hypertension (CMS/HCC)- Primary Unspecified essential hypertension Fibromyalgia Unspecified myalgia and myositis 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 elsewhere ([facility]/HCC) ODALYS (generalized anxiety disorder) ([facility]) Generalized anxiety disorder Type 2 diabetes mellitus without complication, without long-term current use of insulin ([facility]) Arthropathy, unspecified Unspecified osteoarthritis, unspecified site documented in this encounter [facility] HealthcareEvaluation note* Diagnosis Benign essential HTN ([facility]/HCC)- Primary Gastroesophageal reflux disease without esophagitis Esophageal reflux Stage 3 chronic kidney disease, unspecified whether stage 3a or 3b CKD (HCC) ([facility]) Class 2 severe obesity due to excess calories with serious comorbidity and body mass index (BMI) of 36.0 to 36.9 in adult ([facility]) Menopause Symptomatic menopausal or female climacteric states Encounter for screening mammogram for malignant neoplasm of breast Encounter for subsequent annual wellness visit (AWV) in Medicare patient- Primary Benign essential HTN ([facility]) Gastroesophageal reflux disease without esophagitis Esophageal reflux Stage 3 chronic kidney disease, unspecified whether stage 3a or 3b CKD (HCC) ([facility]/HCC) 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, without long-term current use of insulin, unspecified whether stage 3a or 3b CKD (HCC) ([facility]/HCC) Acute pain of right shoulder- Primary Class 2 severe obesity due to excess calories with serious comorbidity and body mass index (BMI) of 36.0 to 36.9 in adult ([facility]) Primary osteoarthritis involving multiple joints Preoperative clearance- Primary Unspecified pre-operative examination Type 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 (CMS/HCC) Malignant neoplasm of unspecified ovary (CMS/HCC) 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 elsewhere ([facility]/HCC) Secondary hyperparathyroidism of renal origin (CMS/HCC) Secondary hyperparathyroidism (of renal origin) Hypertensive chronic kidney disease with stage 1 through stage 4 chronic kidney disease, or unspecified chronic kidney disease ([facility]/HCC) Age-related osteoporosis without current pathological fracture ([facility]) Essential (primary) hypertension ([facility]/HCC) Unspecified essential hypertension Type 2 diabetes mellitus with diabetic neuropathy, unspecified ([facility]/HCC) Secondary hyperparathyroidism ([facility]/HCC) Secondary hyperparathyroidism (of renal origin) Acute pain of right shoulder Essential (primary) hypertension ([facility]/HCC)- Primary Unspecified essential hypertension Fibromyalgia Unspecified myalgia and myositis 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 elsewhere ([facility]/HCC) ODALYS (generalized anxiety disorder) ([facility]) Generalized anxiety disorder Type 2 diabetes mellitus without complication, without long-term current use of insulin ([facility]) Acute pain of right shoulder- Primary Shoulder stiffness, right documented in this encounter [facility] HealthcareEvaluation note* Diagnosis Benign essential HTN ([facility]/HCC)- Primary Gastroesophageal reflux disease without esophagitis Esophageal reflux Stage 3 chronic kidney disease, unspecified whether stage 3a or 3b CKD (HCC) ([facility]) Class 2 severe obesity due to excess calories with serious comorbidity and body mass index (BMI) of 36.0 to 36.9 in adult ([facility]) Menopause Symptomatic menopausal or female climacteric states Encounter for screening mammogram for malignant neoplasm of breast Encounter for subsequent annual wellness visit (AWV) in Medicare patient- Primary Benign essential HTN ([facility]) Gastroesophageal reflux disease without esophagitis Esophageal reflux Stage 3 chronic kidney disease, unspecified whether stage 3a or 3b CKD (HCC) ([facility]) 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, without long-term current use of insulin, unspecified whether stage 3a or 3b CKD (HCC) ([facility]/HCC) Acute pain of right shoulder- Primary Class 2 severe obesity due to excess calories with serious comorbidity and body mass index (BMI) of 36.0 to 36.9 in adult ([facility]) Primary osteoarthritis involving multiple joints Preoperative clearance- Primary Unspecified pre-operative examination Type 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 ([facility]/HCC) Malignant neoplasm of unspecified ovary ([facility]) 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 elsewhere ([facility]) Secondary hyperparathyroidism of renal origin ([facility]/HCC) Secondary hyperparathyroidism (of renal origin) Hypertensive chronic kidney disease with stage 1 through stage 4 chronic kidney disease, or unspecified chronic kidney disease ([facility]/HCC) Age-related osteoporosis without current pathological fracture ([facility]) Essential (primary) hypertension ([facility]) Unspecified essential hypertension Type 2 diabetes mellitus with diabetic neuropathy, unspecified ([facility]) Secondary hyperparathyroidism ([facility]) Secondary hyperparathyroidism (of renal origin) Acute pain of right shoulder Essential (primary) hypertension ([facility])- Primary Unspecified essential hypertension Fibromyalgia Unspecified myalgia and myositis 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 elsewhere ([facility]) ODALYS (generalized anxiety disorder) ([facility]) Generalized anxiety disorder Type 2 diabetes mellitus without complication, without long-term current use of insulin ([facility]) Acute pain of right shoulder- Primary Shoulder stiffness, right documented in this encounter [facility] HealthcareEvaluation note* Diagnosis Benign essential HTN ([facility])- Primary Gastroesophageal reflux disease without esophagitis Esophageal reflux Stage 3 chronic kidney disease, unspecified whether stage 3a or 3b CKD (HCC) ([facility]) Class 2 severe obesity due to excess calories with serious comorbidity and body mass index (BMI) of 36.0 to 36.9 in adult ([facility]) Menopause Symptomatic menopausal or female climacteric states Encounter for screening mammogram for malignant neoplasm of breast Encounter for subsequent annual wellness visit (AWV) in Medicare patient- Primary Benign essential HTN ([facility]) Gastroesophageal reflux disease without esophagitis Esophageal reflux Stage 3 chronic kidney disease, unspecified whether stage 3a or 3b CKD (HCC) ([facility]) 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, without long-term current use of insulin, unspecified whether stage 3a or 3b CKD (HCC) ([facility]) Acute pain of right shoulder- Primary Class 2 severe obesity due to excess calories with serious comorbidity and body mass index (BMI) of 36.0 to 36.9 in adult ([facility]) Primary osteoarthritis involving multiple joints Preoperative clearance- Primary Unspecified pre-operative examination Type 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 ([facility]) Malignant neoplasm of unspecified ovary ([facility]) 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 elsewhere ([facility]) Secondary hyperparathyroidism of renal origin ([facility]) Secondary hyperparathyroidism (of renal origin) Hypertensive chronic kidney disease with stage 1 through stage 4 chronic kidney disease, or unspecified chronic kidney disease ([facility]/HCC) Age-related osteoporosis without current pathological fracture (CMS/HCC) Essential (primary) hypertension (CMS/HCC) Unspecified essential hypertension Type 2 diabetes mellitus with diabetic neuropathy, unspecified (CMS/HCC) Secondary hyperparathyroidism (CMS/HCC) Secondary hyperparathyroidism (of renal origin) Acute pain of right shoulder Essential (primary) hypertension (CMS/HCC)- Primary Unspecified essential hypertension Fibromyalgia Unspecified myalgia and myositis 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 elsewhere (CMS/HCC) ODALYS (generalized anxiety disorder) ([facility]/HCC) Generalized anxiety disorder Type 2 diabetes mellitus without complication, without long-term current use of insulin (CMS/HCC) Acute pain of right shoulder- Primary Shoulder stiffness, right documented in this encounter [facility] HealthcareEvaluation note* Diagnosis Benign essential HTN (CMS/HCC)- Primary Gastroesophageal reflux disease without esophagitis Esophageal reflux Stage 3 chronic kidney disease, unspecified whether stage 3a or 3b CKD (HCC) ([facility]) Class 2 severe obesity due to excess calories with serious comorbidity and body mass index (BMI) of 36.0 to 36.9 in adult ([facility]) Menopause Symptomatic menopausal or female climacteric states Encounter for screening mammogram for malignant neoplasm of breast Encounter for subsequent annual wellness visit (AWV) in Medicare patient- Primary Benign essential HTN (CMS/HCC) Gastroesophageal reflux disease without esophagitis Esophageal reflux Stage 3 chronic kidney disease, unspecified whether stage 3a or 3b CKD (HCC) ([facility]) 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, without long-term current use of insulin, unspecified whether stage 3a or 3b CKD (HCC) ([facility]/HCC) Acute pain of right shoulder- Primary Class 2 severe obesity due to excess calories with serious comorbidity and body mass index (BMI) of 36.0 to 36.9 in adult ([facility]) Primary osteoarthritis involving multiple joints Preoperative clearance- Primary Unspecified pre-operative examination Type 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 (CMS/HCC) Malignant neoplasm of unspecified ovary (CMS/HCC) 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 elsewhere ([facility]/HCC) Secondary hyperparathyroidism of renal origin ([facility]/HCC) Secondary hyperparathyroidism (of renal origin) Hypertensive chronic kidney disease with stage 1 through stage 4 chronic kidney disease, or unspecified chronic kidney disease (CMS/HCC) Age-related osteoporosis without current pathological fracture (CMS/HCC) Essential (primary) hypertension (CMS/HCC) Unspecified essential hypertension Type 2 diabetes mellitus with diabetic neuropathy, unspecified ([facility]/HCC) Secondary hyperparathyroidism ([facility]/HCC) Secondary hyperparathyroidism (of renal origin) Acute pain of right shoulder Essential (primary) hypertension (CMS/HCC)- Primary Unspecified essential hypertension Fibromyalgia Unspecified myalgia and myositis 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 elsewhere ([facility]/HCC) ODALYS (generalized anxiety disorder) ([facility]) Generalized anxiety disorder Type 2 diabetes mellitus without complication, without long-term current use of insulin ([facility]) Gastro-esophageal reflux disease without esophagitis Esophageal reflux documented in this encounter [facility] HealthcareEvaluation note* Diagnosis Benign essential HTN (CMS/HCC)- Primary Gastroesophageal reflux disease without esophagitis Esophageal reflux Stage 3 chronic kidney disease, unspecified whether stage 3a or 3b CKD (HCC) ([facility]) Class 2 severe obesity due to excess calories with serious comorbidity and body mass index (BMI) of 36.0 to 36.9 in adult ([facility]) Menopause Symptomatic menopausal or female climacteric states Encounter for screening mammogram for malignant neoplasm of breast Encounter for subsequent annual wellness visit (AWV) in Medicare patient- Primary Benign essential HTN ([facility]/HCC) Gastroesophageal reflux disease without esophagitis Esophageal reflux Stage 3 chronic kidney disease, unspecified whether stage 3a or 3b CKD (HCC) ([facility]) 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, without long-term current use of insulin, unspecified whether stage 3a or 3b CKD (HCC) ([facility]/HCC) Acute pain of right shoulder- Primary Class 2 severe obesity due to excess calories with serious comorbidity and body mass index (BMI) of 36.0 to 36.9 in adult ([facility]) Primary osteoarthritis involving multiple joints Preoperative clearance- Primary Unspecified pre-operative examination Type 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 ([facility]/HCC) Malignant neoplasm of unspecified ovary ([facility]) 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 elsewhere ([facility]) Secondary hyperparathyroidism of renal origin ([facility]/HCC) Secondary hyperparathyroidism (of renal origin) Hypertensive chronic kidney disease with stage 1 through stage 4 chronic kidney disease, or unspecified chronic kidney disease ([facility]/HCC) Age-related osteoporosis without current pathological fracture ([facility]) Essential (primary) hypertension ([facility]/HCC) Unspecified essential hypertension Type 2 diabetes mellitus with diabetic neuropathy, unspecified ([facility]) Secondary hyperparathyroidism ([facility]/HCC) Secondary hyperparathyroidism (of renal origin) Acute pain of right shoulder Essential (primary) hypertension (CMS/HCC)- Primary Unspecified essential hypertension Fibromyalgia Unspecified myalgia and myositis 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 elsewhere ([facility]/HCC) ODALYS (generalized anxiety disorder) ([facility]) Generalized anxiety disorder Type 2 diabetes mellitus without complication, without long-term current use of insulin ([facility]) Acute pain of right shoulder- Primary Shoulder stiffness, right documented in this encounter [facility] HealthcareEvaluation note* Diagnosis Benign essential HTN (CMS/HCC)- Primary Gastroesophageal reflux disease without esophagitis Esophageal reflux Stage 3 chronic kidney disease, unspecified whether stage 3a or 3b CKD (HCC) ([facility]) Class 2 severe obesity due to excess calories with serious comorbidity and body mass index (BMI) of 36.0 to 36.9 in adult ([facility]) Menopause Symptomatic menopausal or female climacteric states Encounter for screening mammogram for malignant neoplasm of breast Encounter for subsequent annual wellness visit (AWV) in Medicare patient- Primary Benign essential HTN ([facility]) Gastroesophageal reflux disease without esophagitis Esophageal reflux Stage 3 chronic kidney disease, unspecified whether stage 3a or 3b CKD (HCC) ([facility]) 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, without long-term current use of insulin, unspecified whether stage 3a or 3b CKD (HCC) ([facility]) Acute pain of right shoulder- Primary Class 2 severe obesity due to excess calories with serious comorbidity and body mass index (BMI) of 36.0 to 36.9 in adult ([facility]) Primary osteoarthritis involving multiple joints Preoperative clearance- Primary Unspecified pre-operative examination Type 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 ([facility]/HCC) Malignant neoplasm of unspecified ovary ([facility]) 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 elsewhere ([facility]) Secondary hyperparathyroidism of renal origin ([facility]/HCC) Secondary hyperparathyroidism (of renal origin) Hypertensive chronic kidney disease with stage 1 through stage 4 chronic kidney disease, or unspecified chronic kidney disease ([facility]/HCC) Age-related osteoporosis without current pathological fracture ([facility]/HCC) Essential (primary) hypertension ([facility]/HCC) Unspecified essential hypertension Type 2 diabetes mellitus with diabetic neuropathy, unspecified ([facility]) Secondary hyperparathyroidism ([facility]/HCC) Secondary hyperparathyroidism (of renal origin) Acute pain of right shoulder Essential (primary) hypertension (CMS/HCC)- Primary Unspecified essential hypertension Fibromyalgia Unspecified myalgia and myositis 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 elsewhere ([facility]) ODALYS (generalized anxiety disorder) ([facility]) Generalized anxiety disorder Type 2 diabetes mellitus without complication, without long-term current use of insulin ([facility]) Status post right rotator cuff repair- Primary Right shoulder pain, unspecified chronicity documented in this encounter [facility] HealthcareEvaluation note* Diagnosis Benign essential HTN ([facility]/HCC)- Primary Gastroesophageal reflux disease without esophagitis Esophageal reflux Stage 3 chronic kidney disease, unspecified whether stage 3a or 3b CKD (HCC) ([facility]) Class 2 severe obesity due to excess calories with serious comorbidity and body mass index (BMI) of 36.0 to 36.9 in adult ([facility]) Menopause Symptomatic menopausal or female climacteric states Encounter for screening mammogram for malignant neoplasm of breast Encounter for subsequent annual wellness visit (AWV) in Medicare patient- Primary Benign essential HTN ([facility]/HCC) Gastroesophageal reflux disease without esophagitis Esophageal reflux Stage 3 chronic kidney disease, unspecified whether stage 3a or 3b CKD (HCC) ([facility]) 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, without long-term current use of insulin, unspecified whether stage 3a or 3b CKD (HCC) ([facility]) Acute pain of right shoulder- Primary Class 2 severe obesity due to excess calories with serious comorbidity and body mass index (BMI) of 36.0 to 36.9 in adult ([facility]) Primary osteoarthritis involving multiple joints Preoperative clearance- Primary Unspecified pre-operative examination Type 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 ([facility]) Malignant neoplasm of unspecified ovary ([facility]) 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 elsewhere ([facility]) Secondary hyperparathyroidism of renal origin ([facility]/HCC) Secondary hyperparathyroidism (of renal origin) Hypertensive chronic kidney disease with stage 1 through stage 4 chronic kidney disease, or unspecified chronic kidney disease ([facility]/HCC) Age-related osteoporosis without current pathological fracture ([facility]) Essential (primary) hypertension ([facility]/HCC) Unspecified essential hypertension Type 2 diabetes mellitus with diabetic neuropathy, unspecified ([facility]) Secondary hyperparathyroidism ([facility]/HCC) Secondary hyperparathyroidism (of renal origin) Acute pain of right shoulder Essential (primary) hypertension (CMS/HCC)- Primary Unspecified essential hypertension Fibromyalgia Unspecified myalgia and myositis 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 elsewhere ([facility]) ODALYS (generalized anxiety disorder) ([facility]) Generalized anxiety disorder Type 2 diabetes mellitus without complication, without long-term current use of insulin ([facility]) Acute pain of right shoulder- Primary Shoulder stiffness, right documented in this encounter [facility] HealthcareEvaluation note* Diagnosis Benign essential HTN (CMS/HCC)- Primary Gastroesophageal reflux disease without esophagitis Esophageal reflux Stage 3 chronic kidney disease, unspecified whether stage 3a or 3b CKD (HCC) ([facility]) Class 2 severe obesity due to excess calories with serious comorbidity and body mass index (BMI) of 36.0 to 36.9 in adult ([facility]) Menopause Symptomatic menopausal or female climacteric states Encounter for screening mammogram for malignant neoplasm of breast Encounter for subsequent annual wellness visit (AWV) in Medicare patient- Primary Benign essential HTN ([facility]) Gastroesophageal reflux disease without esophagitis Esophageal reflux Stage 3 chronic kidney disease, unspecified whether stage 3a or 3b CKD (HCC) ([facility]) 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, without long-term current use of insulin, unspecified whether stage 3a or 3b CKD (HCC) ([facility]) Acute pain of right shoulder- Primary Class 2 severe obesity due to excess calories with serious comorbidity and body mass index (BMI) of 36.0 to 36.9 in adult ([facility]) Primary osteoarthritis involving multiple joints Preoperative clearance- Primary Unspecified pre-operative examination Type 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 ([facility]) Malignant neoplasm of unspecified ovary ([facility]) 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 elsewhere ([facility]) Secondary hyperparathyroidism of renal origin ([facility]) Secondary hyperparathyroidism (of renal origin) Hypertensive chronic kidney disease with stage 1 through stage 4 chronic kidney disease, or unspecified chronic kidney disease ([facility]) Age-related osteoporosis without current pathological fracture ([facility]) Essential (primary) hypertension ([facility]) Unspecified essential hypertension Type 2 diabetes mellitus with diabetic neuropathy, unspecified ([facility]) Secondary hyperparathyroidism ([facility]/HCC) Secondary hyperparathyroidism (of renal origin) Acute pain of right shoulder Essential (primary) hypertension ([facility])- Primary Unspecified essential hypertension Fibromyalgia Unspecified myalgia and myositis 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 elsewhere ([facility]) ODALYS (generalized anxiety disorder) ([facility]) Generalized anxiety disorder Type 2 diabetes mellitus without complication, without long-term current use of insulin ([facility]) Fibromyalgia- Primary Unspecified myalgia and myositis 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 elsewhere ([facility]) Class 2 severe obesity due to excess calories with serious comorbidity and body mass index (BMI) of 36.0 to 36.9 in adult ([facility]) ODALYS (generalized anxiety disorder) ([facility]) Generalized anxiety disorder Essential (primary) hypertension ([facility]) Unspecified essential hypertension Age-related osteoporosis without current pathological fracture ([facility]) Primary osteoarthritis involving multiple joints Dermatophytosis of nail- Primary Dystrophic nail Other specified disease of nail Pain around toenail, right foot Pain around toenail, left foot documented in this encounter [facility] HealthcareEvaluation note* Diagnosis Benign essential HTN ([facility])- Primary Gastroesophageal reflux disease without esophagitis Esophageal reflux Stage 3 chronic kidney disease, unspecified whether stage 3a or 3b CKD (HCC) ([facility]) Class 2 severe obesity due to excess calories with serious comorbidity and body mass index (BMI) of 36.0 to 36.9 in adult ([facility]) Menopause Symptomatic menopausal or female climacteric states Encounter for screening mammogram for malignant neoplasm of breast Encounter for subsequent annual wellness visit (AWV) in Medicare patient- Primary Benign essential HTN ([facility]) Gastroesophageal reflux disease without esophagitis Esophageal reflux Stage 3 chronic kidney disease, unspecified whether stage 3a or 3b CKD (HCC) ([facility]) 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, without long-term current use of insulin, unspecified whether stage 3a or 3b CKD (HCC) ([facility]) Acute pain of right shoulder- Primary Class 2 severe obesity due to excess calories with serious comorbidity and body mass index (BMI) of 36.0 to 36.9 in adult ([facility]) Primary osteoarthritis involving multiple joints Preoperative clearance- Primary Unspecified pre-operative examination Type 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 ([facility]) Malignant neoplasm of unspecified ovary ([facility]) 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 elsewhere ([facility]) Secondary hyperparathyroidism of renal origin ([facility]) Secondary hyperparathyroidism (of renal origin) Hypertensive chronic kidney disease with stage 1 through stage 4 chronic kidney disease, or unspecified chronic kidney disease ([facility]) Age-related osteoporosis without current pathological fracture ([facility]) Essential (primary) hypertension ([facility]/HCC) Unspecified essential hypertension Type 2 diabetes mellitus with diabetic neuropathy, unspecified ([facility]) Secondary hyperparathyroidism ([facility]) Secondary hyperparathyroidism (of renal origin) Acute pain of right shoulder Essential (primary) hypertension ([facility]/HCC)- Primary Unspecified essential hypertension Fibromyalgia Unspecified myalgia and myositis 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 elsewhere ([facility]) ODALYS (generalized anxiety disorder) ([facility]) Generalized anxiety disorder Type 2 diabetes mellitus without complication, without long-term current use of insulin ([facility]) Status post right rotator cuff repair- Primary Right shoulder pain, unspecified chronicity Fibromyalgia- Primary Unspecified myalgia and myositis 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 elsewhere ([facility]) Class 2 severe obesity due to excess calories with serious comorbidity and body mass index (BMI) of 36.0 to 36.9 in adult ([facility]) ODALYS (generalized anxiety disorder) ([facility]) Generalized anxiety disorder Essential (primary) hypertension ([facility]) Unspecified essential hypertension Age-related osteoporosis without current pathological fracture ([facility]) Primary osteoarthritis involving multiple joints documented in this encounter [facility] HealthcareEvaluation note* Diagnosis Benign essential HTN ([facility]/HCC)- Primary Gastroesophageal reflux disease without esophagitis Esophageal reflux Stage 3 chronic kidney disease, unspecified whether stage 3a or 3b CKD (HCC) ([facility]) Class 2 severe obesity due to excess calories with serious comorbidity and body mass index (BMI) of 36.0 to 36.9 in adult ([facility]) Menopause Symptomatic menopausal or female climacteric states Encounter for screening mammogram for malignant neoplasm of breast Encounter for subsequent annual wellness visit (AWV) in Medicare patient- Primary Benign essential HTN ([facility]/HCC) Gastroesophageal reflux disease without esophagitis Esophageal reflux Stage 3 chronic kidney disease, unspecified whether stage 3a or 3b CKD (HCC) ([facility]) 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, without long-term current use of insulin, unspecified whether stage 3a or 3b CKD (HCC) ([facility]) Acute pain of right shoulder- Primary Class 2 severe obesity due to excess calories with serious comorbidity and body mass index (BMI) of 36.0 to 36.9 in adult ([facility]) Primary osteoarthritis involving multiple joints Preoperative clearance- Primary Unspecified pre-operative examination Type 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 ([facility]/HCC) Malignant neoplasm of unspecified ovary ([facility]) 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 elsewhere ([facility]) Secondary hyperparathyroidism of renal origin ([facility]) Secondary hyperparathyroidism (of renal origin) Hypertensive chronic kidney disease with stage 1 through stage 4 chronic kidney disease, or unspecified chronic kidney disease ([facility]) Age-related osteoporosis without current pathological fracture ([facility]) Essential (primary) hypertension ([facility]) Unspecified essential hypertension Type 2 diabetes mellitus with diabetic neuropathy, unspecified ([facility]) Secondary hyperparathyroidism ([facility]) Secondary hyperparathyroidism (of renal origin) Acute pain of right shoulder Essential (primary) hypertension ([facility])- Primary Unspecified essential hypertension Fibromyalgia Unspecified myalgia and myositis 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 elsewhere ([facility]) ODALYS (generalized anxiety disorder) ([facility]) Generalized anxiety disorder Type 2 diabetes mellitus without complication, without long-term current use of insulin ([facility]) Fibromyalgia- Primary Unspecified myalgia and myositis 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 elsewhere ([facility]) Class 2 severe obesity due to excess calories with serious comorbidity and body mass index (BMI) of 36.0 to 36.9 in adult ([facility]) ODALYS (generalized anxiety disorder) ([facility]) Generalized anxiety disorder Essential (primary) hypertension ([facility]) Unspecified essential hypertension Age-related osteoporosis without current pathological fracture ([facility]) Primary osteoarthritis involving multiple joints documented in this encounter [facility] HealthcareEvaluation note* Diagnosis Status post right rotator cuff repair documented in this encounter [facility] HealthcareEvaluation note* Diagnosis Benign essential HTN ([facility])- Primary Gastroesophageal reflux disease without esophagitis Esophageal reflux Stage 3 chronic kidney disease, unspecified whether stage 3a or 3b CKD (HCC) ([facility]) Class 2 severe obesity due to excess calories with serious comorbidity and body mass index (BMI) of 36.0 to 36.9 in adult ([facility]) Menopause Symptomatic menopausal or female climacteric states Encounter for screening mammogram for malignant neoplasm of breast Encounter for subsequent annual wellness visit (AWV) in Medicare patient- Primary Benign essential HTN ([facility]) Gastroesophageal reflux disease without esophagitis Esophageal reflux Stage 3 chronic kidney disease, unspecified whether stage 3a or 3b CKD (HCC) ([facility]) 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, without long-term current use of insulin, unspecified whether stage 3a or 3b CKD (HCC) ([facility]) Acute pain of right shoulder- Primary Class 2 severe obesity due to excess calories with serious comorbidity and body mass index (BMI) of 36.0 to 36.9 in adult ([facility]) Primary osteoarthritis involving multiple joints Preoperative clearance- Primary Unspecified pre-operative examination Type 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 ([facility]) Malignant neoplasm of unspecified ovary ([facility]) 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 elsewhere ([facility]) Secondary hyperparathyroidism of renal origin ([facility]) Secondary hyperparathyroidism (of renal origin) Hypertensive chronic kidney disease with stage 1 through stage 4 chronic kidney disease, or unspecified chronic kidney disease ([facility]) Age-related osteoporosis without current pathological fracture ([facility]) Essential (primary) hypertension ([facility]) Unspecified essential hypertension Type 2 diabetes mellitus with diabetic neuropathy, unspecified ([facility]) Secondary hyperparathyroidism ([facility]) Secondary hyperparathyroidism (of renal origin) Acute pain of right shoulder Essential (primary) hypertension ([facility])- Primary Unspecified essential hypertension Fibromyalgia Unspecified myalgia and myositis 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 elsewhere ([facility]) ODALYS (generalized anxiety disorder) ([facility]) Generalized anxiety disorder Type 2 diabetes mellitus without complication, without long-term current use of insulin ([facility]) Fibromyalgia- Primary Unspecified myalgia and myositis 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 elsewhere ([facility]) Class 2 severe obesity due to excess calories with serious comorbidity and body mass index (BMI) of 36.0 to 36.9 in adult ([facility]) ODALYS (generalized anxiety disorder) ([facility]) Generalized anxiety disorder Essential (primary) hypertension ([facility]) Unspecified essential hypertension Age-related osteoporosis without current pathological fracture ([facility]) Primary osteoarthritis involving multiple joints Class 2 severe obesity due to excess calories with serious comorbidity and body mass index (BMI) of 36.0 to 36.9 in adult ([facility])- Primary Essential (primary) hypertension ([facility]) Unspecified essential hypertension Acute non-recurrent pansinusitis Encounter for screening mammogram for malignant neoplasm of breast documented in this encounter [facility] HealthcareEvaluation note* Diagnosis Essential (primary) hypertension ([facility])- Primary Unspecified essential hypertension Fibromyalgia Unspecified myalgia and myositis 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 elsewhere ([facility]/HCC) ODALYS (generalized anxiety disorder) ([facility]) Generalized anxiety disorder Type 2 diabetes mellitus without complication, without long-term current use of insulin ([facility]) documented in this encounter [facility] HealthcareEvaluation note* Diagnosis Acute pain of right shoulder- Primary Shoulder stiffness, right documented in this encounter [facility] HealthcareEvaluation note* Diagnosis Benign essential HTN ([facility]/HCC)- Primary Gastroesophageal reflux disease without esophagitis Esophageal reflux Stage 3 chronic kidney disease, unspecified whether stage 3a or 3b CKD (HCC) ([facility]) Class 2 severe obesity due to excess calories with serious comorbidity and body mass index (BMI) of 36.0 to 36.9 in adult ([facility]) Menopause Symptomatic menopausal or female climacteric states Encounter for screening mammogram for malignant neoplasm of breast Encounter for subsequent annual wellness visit (AWV) in Medicare patient- Primary Benign essential HTN ([facility]) Gastroesophageal reflux disease without esophagitis Esophageal reflux Stage 3 chronic kidney disease, unspecified whether stage 3a or 3b CKD (HCC) ([facility]) 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, without long-term current use of insulin, unspecified whether stage 3a or 3b CKD (HCC) ([facility]) Acute pain of right shoulder- Primary Class 2 severe obesity due to excess calories with serious comorbidity and body mass index (BMI) of 36.0 to 36.9 in adult ([facility]) Primary osteoarthritis involving multiple joints Preoperative clearance- Primary Unspecified pre-operative examination Type 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 ([facility]) Malignant neoplasm of unspecified ovary ([facility]) 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 elsewhere ([facility]) Secondary hyperparathyroidism of renal origin ([facility]/HCC) Secondary hyperparathyroidism (of renal origin) Hypertensive chronic kidney disease with stage 1 through stage 4 chronic kidney disease, or unspecified chronic kidney disease ([facility]) Age-related osteoporosis without current pathological fracture ([facility]) Essential (primary) hypertension ([facility]/HCC) Unspecified essential hypertension Type 2 diabetes mellitus with diabetic neuropathy, unspecified ([facility]) Secondary hyperparathyroidism ([facility]/HCC) Secondary hyperparathyroidism (of renal origin) Acute pain of right shoulder Essential (primary) hypertension (CMS/HCC)- Primary Unspecified essential hypertension Fibromyalgia Unspecified myalgia and myositis 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 elsewhere ([facility]) ODALYS (generalized anxiety disorder) ([facility]) Generalized anxiety disorder Type 2 diabetes mellitus without complication, without long-term current use of insulin ([facility]) Fibromyalgia- Primary Unspecified myalgia and myositis 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 elsewhere ([facility]) Class 2 severe obesity due to excess calories with serious comorbidity and body mass index (BMI) of 36.0 to 36.9 in adult ([facility]) ODALYS (generalized anxiety disorder) ([facility]) Generalized anxiety disorder Essential (primary) hypertension ([facility]) Unspecified essential hypertension Age-related osteoporosis without current pathological fracture ([facility]) Primary osteoarthritis involving multiple joints Class 2 severe obesity due to excess calories with serious comorbidity and body mass index (BMI) of 36.0 to 36.9 in adult ([facility])- Primary Essential (primary) hypertension ([facility]) Unspecified essential hypertension Acute non-recurrent pansinusitis Encounter for screening mammogram for malignant neoplasm of breast Fibromyalgia Unspecified myalgia and myositis 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 elsewhere ([facility]) ODALYS (generalized anxiety disorder) ([facility]) Generalized anxiety disorder documented in this encounter [facility] HealthcareEvaluation note* Diagnosis Benign essential HTN ([facility])- Primary Gastroesophageal reflux disease without esophagitis Esophageal reflux Stage 3 chronic kidney disease, unspecified whether stage 3a or 3b CKD (HCC) ([facility]) Class 2 severe obesity due to excess calories with serious comorbidity and body mass index (BMI) of 36.0 to 36.9 in adult ([facility]) Menopause Symptomatic menopausal or female climacteric states Encounter for screening mammogram for malignant neoplasm of breast Encounter for subsequent annual wellness visit (AWV) in Medicare patient- Primary Benign essential HTN ([facility]) Gastroesophageal reflux disease without esophagitis Esophageal reflux Stage 3 chronic kidney disease, unspecified whether stage 3a or 3b CKD (HCC) ([facility]) 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, without long-term current use of insulin, unspecified whether stage 3a or 3b CKD (HCC) ([facility]) Acute pain of right shoulder- Primary Class 2 severe obesity due to excess calories with serious comorbidity and body mass index (BMI) of 36.0 to 36.9 in adult ([facility]) Primary osteoarthritis involving multiple joints Preoperative clearance- Primary Unspecified pre-operative examination Type 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 ([facility]) Malignant neoplasm of unspecified ovary ([facility]) 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 elsewhere ([facility]) Secondary hyperparathyroidism of renal origin ([facility]) Secondary hyperparathyroidism (of renal origin) Hypertensive chronic kidney disease with stage 1 through stage 4 chronic kidney disease, or unspecified chronic kidney disease ([facility]) Age-related osteoporosis without current pathological fracture ([facility]) Essential (primary) hypertension ([facility]) Unspecified essential hypertension Type 2 diabetes mellitus with diabetic neuropathy, unspecified ([facility]) Secondary hyperparathyroidism ([facility]) Secondary hyperparathyroidism (of renal origin) Acute pain of right shoulder Essential (primary) hypertension ([facility])- Primary Unspecified essential hypertension Fibromyalgia Unspecified myalgia and myositis 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 elsewhere ([facility]) ODALYS (generalized anxiety disorder) ([facility]) Generalized anxiety disorder Type 2 diabetes mellitus without complication, without long-term current use of insulin ([facility]) Fibromyalgia- Primary Unspecified myalgia and myositis 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 elsewhere ([facility]) Class 2 severe obesity due to excess calories with serious comorbidity and body mass index (BMI) of 36.0 to 36.9 in adult ([facility]) ODALYS (generalized anxiety disorder) ([facility] Generalized anxiety disorder Essential (primary) hypertension ([facility]) Unspecified essential hypertension Age-related osteoporosis without current pathological fracture ([facility]) Primary osteoarthritis involving multiple joints Class 2 severe obesity due to excess calories with serious comorbidity and body mass index (BMI) of 36.0 to 36.9 in adult ([facility])- Primary Essential (primary) hypertension ([facility]) Unspecified essential hypertension Acute non-recurrent pansinusitis Encounter for screening mammogram for malignant neoplasm of breast Hematoma of frontal scalp, subsequent encounter- Primary Closed head injury, subsequent encounter Class 2 severe obesity due to excess calories with serious comorbidity and body mass index (BMI) of 36.0 to 36.9 in adult ([facility]) Essential (primary) hypertension ([facility]) Unspecified essential hypertension documented in this encounter [facility] HealthcareEvaluation note* Diagnosis Benign essential HTN ([facility])- Primary Gastroesophageal reflux disease without esophagitis Esophageal reflux Stage 3 chronic kidney disease, unspecified whether stage 3a or 3b CKD (HCC) ([facility]) Class 2 severe obesity due to excess calories with serious comorbidity and body mass index (BMI) of 36.0 to 36.9 in adult ([facility]) Menopause Symptomatic menopausal or female climacteric states Encounter for screening mammogram for malignant neoplasm of breast Encounter for subsequent annual wellness visit (AWV) in Medicare patient- Primary Benign essential HTN ([facility]) Gastroesophageal reflux disease without esophagitis Esophageal reflux Stage 3 chronic kidney disease, unspecified whether stage 3a or 3b CKD (HCC) ([facility]) 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, without long-term current use of insulin, unspecified whether stage 3a or 3b CKD (HCC) ([facility]) Acute pain of right shoulder- Primary Class 2 severe obesity due to excess calories with serious comorbidity and body mass index (BMI) of 36.0 to 36.9 in adult ([facility]) Primary osteoarthritis involving multiple joints Preoperative clearance- Primary Unspecified pre-operative examination Type 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 ([facility]) Malignant neoplasm of unspecified ovary ([facility]) 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 elsewhere ([facility]) Secondary hyperparathyroidism of renal origin ([facility]) Secondary hyperparathyroidism (of renal origin) Hypertensive chronic kidney disease with stage 1 through stage 4 chronic kidney disease, or unspecified chronic kidney disease ([facility]) Age-related osteoporosis without current pathological fracture ([facility]) Essential (primary) hypertension ([facility]) Unspecified essential hypertension Type 2 diabetes mellitus with diabetic neuropathy, unspecified ([facility]) Secondary hyperparathyroidism ([facility]) Secondary hyperparathyroidism (of renal origin) Acute pain of right shoulder Essential (primary) hypertension ([facility])- Primary Unspecified essential hypertension Fibromyalgia Unspecified myalgia and myositis 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 elsewhere ([facility]) ODALYS (generalized anxiety disorder) ([facility]) Generalized anxiety disorder Type 2 diabetes mellitus without complication, without long-term current use of insulin ([facility]) Fibromyalgia- Primary Unspecified myalgia and myositis 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 elsewhere ([facility]) Class 2 severe obesity due to excess calories with serious comorbidity and body mass index (BMI) of 36.0 to 36.9 in adult ([facility]) ODALYS (generalized anxiety disorder) ([facility]) Generalized anxiety disorder Essential (primary) hypertension ([facility]) Unspecified essential hypertension Age-related osteoporosis without current pathological fracture ([facility]) Primary osteoarthritis involving multiple joints Class 2 severe obesity due to excess calories with serious comorbidity and body mass index (BMI) of 36.0 to 36.9 in adult ([facility])- Primary Essential (primary) hypertension ([facility]) Unspecified essential hypertension Acute non-recurrent pansinusitis Encounter for screening mammogram for malignant neoplasm of breast Hematoma of frontal scalp, subsequent encounter- Primary Closed head injury, subsequent encounter Class 2 severe obesity due to excess calories with serious comorbidity and body mass index (BMI) of 36.0 to 36.9 in adult ([facility]) Essential (primary) hypertension ([facility]) Unspecified essential hypertension Hematoma of frontal scalp, sequela- Primary Morbid (severe) obesity due to excess calories ([facility]) Essential (primary) hypertension ([facility]) Unspecified essential hypertension Body mass index (BMI) 35.0-35.9, adult Type 2 diabetes mellitus with diabetic neuropathy, unspecified ([facility]) Malignant neoplasm of unspecified ovary ([facility]) Type 2 diabetes mellitus with diabetic cataract ([facility]) Type II or unspecified type diabetes mellitus with ophthalmic manifestations, not stated as uncontrolled Type 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 ([facility]) Chronic kidney disease, stage 3a (HCC) ([facility]) Hypertensive chronic kidney disease with stage 1 through stage 4 chronic kidney disease, or unspecified chronic kidney disease ([facility]) Class 2 severe obesity due to excess calories with serious comorbidity and body mass index (BMI) of 36.0 to 36.9 in adult ([facility]) Closed head injury, sequela Blurry vision, left eye Other specified visual disturbances documented in this encounter [facility] HealthcareEvaluation note* Diagnosis Benign essential HTN ([facility])- Primary Gastroesophageal reflux disease without esophagitis Esophageal reflux Stage 3 chronic kidney disease, unspecified whether stage 3a or 3b CKD (HCC) ([facility]) Class 2 severe obesity due to excess calories with serious comorbidity and body mass index (BMI) of 36.0 to 36.9 in adult ([facility]) Menopause Symptomatic menopausal or female climacteric states Encounter for screening mammogram for malignant neoplasm of breast Encounter for subsequent annual wellness visit (AWV) in Medicare patient- Primary Benign essential HTN ([facility]/HCC) Gastroesophageal reflux disease without esophagitis Esophageal reflux Stage 3 chronic kidney disease, unspecified whether stage 3a or 3b CKD (HCC) ([facility]) 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, without long-term current use of insulin, unspecified whether stage 3a or 3b CKD ([facility]) ([facility]) Acute pain of right shoulder- Primary Class 2 severe obesity due to excess calories with serious comorbidity and body mass index (BMI) of 36.0 to 36.9 in adult ([facility]) Primary osteoarthritis involving multiple joints Preoperative clearance- Primary Unspecified pre-operative examination Type 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 ([facility]) Malignant neoplasm of unspecified ovary ([facility]) 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 elsewhere ([facility]) Secondary hyperparathyroidism of renal origin ([facility]) Secondary hyperparathyroidism (of renal origin) Hypertensive chronic kidney disease with stage 1 through stage 4 chronic kidney disease, or unspecified chronic kidney disease ([facility]) Age-related osteoporosis without current pathological fracture ([facility]) Essential (primary) hypertension ([facility]) Unspecified essential hypertension Type 2 diabetes mellitus with diabetic neuropathy, unspecified ([facility]) Secondary hyperparathyroidism ([facility]) Secondary hyperparathyroidism (of renal origin) Acute pain of right shoulder Essential (primary) hypertension ([facility])- Primary Unspecified essential hypertension Fibromyalgia Unspecified myalgia and myositis 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 elsewhere ([facility]) ODALYS (generalized anxiety disorder) ([facility]) Generalized anxiety disorder Type 2 diabetes mellitus without complication, without long-term current use of insulin ([facility]) Fibromyalgia- Primary Unspecified myalgia and myositis 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 elsewhere ([facility]) Class 2 severe obesity due to excess calories with serious comorbidity and body mass index (BMI) of 36.0 to 36.9 in adult ([facility]) ODALYS (generalized anxiety disorder) ([facility]) Generalized anxiety disorder Essential (primary) hypertension ([facility]) Unspecified essential hypertension Age-related osteoporosis without current pathological fracture ([facility]) Primary osteoarthritis involving multiple joints Class 2 severe obesity due to excess calories with serious comorbidity and body mass index (BMI) of 36.0 to 36.9 in adult ([facility])- Primary Essential (primary) hypertension ([facility]) Unspecified essential hypertension Acute non-recurrent pansinusitis Encounter for screening mammogram for malignant neoplasm of breast Hematoma of frontal scalp, subsequent encounter- Primary Closed head injury, subsequent encounter Class 2 severe obesity due to excess calories with serious comorbidity and body mass index (BMI) of 36.0 to 36.9 in adult ([facility]) Essential (primary) hypertension ([facility]/HCC) Unspecified essential hypertension Hematoma of frontal scalp, sequela- Primary Morbid (severe) obesity due to excess calories ([facility]) Essential (primary) hypertension ([facility]/HCC) Unspecified essential hypertension Body mass index (BMI) 35.0-35.9, adult Type 2 diabetes mellitus with diabetic neuropathy, unspecified ([facility]) Malignant neoplasm of unspecified ovary ([facility]) Type 2 diabetes mellitus with diabetic cataract ([facility]) Type II or unspecified type diabetes mellitus with ophthalmic manifestations, not stated as uncontrolled Type 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 ([facility]) Chronic kidney disease, stage 3a (HCC) ([facility]) Hypertensive chronic kidney disease with stage 1 through stage 4 chronic kidney disease, or unspecified chronic kidney disease ([facility]) Class 2 severe obesity due to excess calories with serious comorbidity and body mass index (BMI) of 36.0 to 36.9 in adult ([facility]) Closed head injury, sequela Blurry vision, left eye Other specified visual disturbances Mixed hyperlipidemia ([facility]) Mixed hyperlipidemia documented in this encounter [facility] HealthcareEvaluation note* Diagnosis Benign essential HTN ([facility]/HCC)- Primary Gastroesophageal reflux disease without esophagitis Esophageal reflux Stage 3 chronic kidney disease, unspecified whether stage 3a or 3b CKD (HCC) ([facility]) Class 2 severe obesity due to excess calories with serious comorbidity and body mass index (BMI) of 36.0 to 36.9 in adult ([facility]) Menopause Symptomatic menopausal or female climacteric states Encounter for screening mammogram for malignant neoplasm of breast Encounter for subsequent annual wellness visit (AWV) in Medicare patient- Primary Benign essential HTN ([facility]/HCC) Gastroesophageal reflux disease without esophagitis Esophageal reflux Stage 3 chronic kidney disease, unspecified whether stage 3a or 3b CKD (HCC) ([facility]) 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, without long-term current use of insulin, unspecified whether stage 3a or 3b CKD (HCC) ([facility]) Acute pain of right shoulder- Primary Class 2 severe obesity due to excess calories with serious comorbidity and body mass index (BMI) of 36.0 to 36.9 in adult ([facility]) Primary osteoarthritis involving multiple joints Preoperative clearance- Primary Unspecified pre-operative examination Type 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 ([facility]) Malignant neoplasm of unspecified ovary ([facility]) 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 elsewhere ([facility]) Secondary hyperparathyroidism of renal origin ([facility]) Secondary hyperparathyroidism (of renal origin) Hypertensive chronic kidney disease with stage 1 through stage 4 chronic kidney disease, or unspecified chronic kidney disease ([facility]) Age-related osteoporosis without current pathological fracture ([facility]) Essential (primary) hypertension ([facility]) Unspecified essential hypertension Type 2 diabetes mellitus with diabetic neuropathy, unspecified ([facility]) Secondary hyperparathyroidism ([facility]) Secondary hyperparathyroidism (of renal origin) Acute pain of right shoulder Essential (primary) hypertension ([facility])- Primary Unspecified essential hypertension Fibromyalgia Unspecified myalgia and myositis Polyneuropathy in diseases classified elsewhere ([facility]) ODALYS (generalized anxiety disorder) ([facility]) Generalized anxiety disorder Type 2 diabetes mellitus without complication, without long-term current use of insulin ([facility]) Fibromyalgia- Primary Unspecified myalgia and myositis Polyneuropathy in diseases classified elsewhere ([facility]) Class 2 severe obesity due to excess calories with serious comorbidity and body mass index (BMI) of 36.0 to 36.9 in adult ([facility]) ODALYS (generalized anxiety disorder) ([facility]) Generalized anxiety disorder Essential (primary) hypertension ([facility]) Unspecified essential hypertension Age-related osteoporosis without current pathological fracture ([facility]) Primary osteoarthritis involving multiple joints Class 2 severe obesity due to excess calories with serious comorbidity and body mass index (BMI) of 36.0 to 36.9 in adult ([facility])- Primary Essential (primary) hypertension ([facility]) Unspecified essential hypertension Acute non-recurrent pansinusitis Encounter for screening mammogram for malignant neoplasm of breast Hematoma of frontal scalp, subsequent encounter- Primary Closed head injury, subsequent encounter Class 2 severe obesity due to excess calories with serious comorbidity and body mass index (BMI) of 36.0 to 36.9 in adult ([facility]) Essential (primary) hypertension ([facility]) Unspecified essential hypertension Hematoma of frontal scalp, sequela- Primary Morbid (severe) obesity due to excess calories ([facility]) Essential (primary) hypertension ([facility]) Unspecified essential hypertension Body mass index (BMI) 35.0-35.9, adult Type 2 diabetes mellitus with diabetic neuropathy, unspecified ([facility]/HCC) Malignant neoplasm of unspecified ovary ([facility]/HCC) Type 2 diabetes mellitus with diabetic cataract ([facility]) Type II or unspecified type diabetes mellitus with ophthalmic manifestations, not stated as uncontrolled Type 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 ([facility]/HCC) Chronic kidney disease, stage 3a (HCC) ([facility]) Hypertensive chronic kidney disease with stage 1 through stage 4 chronic kidney disease, or unspecified chronic kidney disease ([facility]/HCC) Class 2 severe obesity due to excess calories with serious comorbidity and body mass index (BMI) of 36.0 to 36.9 in adult ([facility]) Closed head injury, sequela Blurry vision, left eye Other specified visual disturbances Pre-operative clearance- Primary Unspecified pre-operative examination Class 2 severe obesity due to excess calories with serious comorbidity and body mass index (BMI) of 36.0 to 36.9 in adult ([facility]) Body mass index (BMI) 35.0-35.9, adult Closed head injury, sequela Hematoma of frontal scalp, sequela Age-related osteoporosis without current pathological fracture ([facility]) Essential (primary) hypertension ([facility]) Unspecified essential hypertension Gastroesophageal reflux disease without esophagitis Esophageal reflux Type 2 diabetes mellitus without complication, without long-term current use of insulin ([facility]) Blurry vision, left eye Other specified visual disturbances documented in this encounter [facility] HealthcareEvaluation note* Diagnosis Rotator cuff arthropathy of right shoulder- Primary Preop testing- Primary Unspecified pre-operative examination Liver disease Unspecified disorder of liver Rotator cuff arthropathy of right shoulder documented in this encounter [facility] SystemEvaluation note* Diagnosis Benign essential HTN (CMS/HCC)- Primary Gastroesophageal reflux disease without esophagitis Esophageal reflux Stage 3 chronic kidney disease, unspecified whether stage 3a or 3b CKD (HCC) ([facility]) Class 2 severe obesity due to excess calories with serious comorbidity and body mass index (BMI) of 36.0 to 36.9 in adult ([facility]) Menopause Symptomatic menopausal or female climacteric states Encounter for screening mammogram for malignant neoplasm of breast Encounter for subsequent annual wellness visit (AWV) in Medicare patient- Primary Benign essential HTN (CMS/HCC) Gastroesophageal reflux disease without esophagitis Esophageal reflux Stage 3 chronic kidney disease, unspecified whether stage 3a or 3b CKD (HCC) ([facility]) 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, without long-term current use of insulin, unspecified whether stage 3a or 3b CKD (HCC) ([facility]) Acute pain of right shoulder- Primary Class 2 severe obesity due to excess calories with serious comorbidity and body mass index (BMI) of 36.0 to 36.9 in adult ([facility]) Primary osteoarthritis involving multiple joints Preoperative clearance- Primary Unspecified pre-operative examination Type 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 ([facility]) Malignant neoplasm of unspecified ovary ([facility]) Polyneuropathy in diseases classified elsewhere ([facility]) Secondary hyperparathyroidism of renal origin ([facility]) Secondary hyperparathyroidism (of renal origin) Hypertensive chronic kidney disease with stage 1 through stage 4 chronic kidney disease, or unspecified chronic kidney disease ([facility]) Age-related osteoporosis without current pathological fracture ([facility]) Essential (primary) hypertension ([facility]) Unspecified essential hypertension Type 2 diabetes mellitus with diabetic neuropathy, unspecified ([facility]) Secondary hyperparathyroidism ([facility]) Secondary hyperparathyroidism (of renal origin) Acute pain of right shoulder Essential (primary) hypertension ([facility])- Primary Unspecified essential hypertension Fibromyalgia Unspecified myalgia and myositis Polyneuropathy in diseases classified elsewhere ([facility]) ODALYS (generalized anxiety disorder) ([facility]) Generalized anxiety disorder Type 2 diabetes mellitus without complication, without long-term current use of insulin ([facility]) Fibromyalgia- Primary Unspecified myalgia and myositis Polyneuropathy in diseases classified elsewhere ([facility]) Class 2 severe obesity due to excess calories with serious comorbidity and body mass index (BMI) of 36.0 to 36.9 in adult ([facility]) ODALYS (generalized anxiety disorder) ([facility]) Generalized anxiety disorder Essential (primary) hypertension ([facility]) Unspecified essential hypertension Age-related osteoporosis without current pathological fracture ([facility]) Primary osteoarthritis involving multiple joints Class 2 severe obesity due to excess calories with serious comorbidity and body mass index (BMI) of 36.0 to 36.9 in adult ([facility])- Primary Essential (primary) hypertension ([facility]) Unspecified essential hypertension Acute non-recurrent pansinusitis Encounter for screening mammogram for malignant neoplasm of breast Hematoma of frontal scalp, subsequent encounter- Primary Closed head injury, subsequent encounter Class 2 severe obesity due to excess calories with serious comorbidity and body mass index (BMI) of 36.0 to 36.9 in adult ([facility]) Essential (primary) hypertension ([facility]) Unspecified essential hypertension Hematoma of frontal scalp, sequela- Primary Morbid (severe) obesity due to excess calories ([facility]) Essential (primary) hypertension ([facility]) Unspecified essential hypertension Body mass index (BMI) 35.0-35.9, adult Type 2 diabetes mellitus with diabetic neuropathy, unspecified ([facility]) Malignant neoplasm of unspecified ovary ([facility]) Type 2 diabetes mellitus with diabetic cataract ([facility]) Type II or unspecified type diabetes mellitus with ophthalmic manifestations, not stated as uncontrolled Type 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 ([facility]) Chronic kidney disease, stage 3a (HCC) ([facility]) Hypertensive chronic kidney disease with stage 1 through stage 4 chronic kidney disease, or unspecified chronic kidney disease ([facility]) Class 2 severe obesity due to excess calories with serious comorbidity and body mass index (BMI) of 36.0 to 36.9 in adult ([facility]) Closed head injury, sequela Blurry vision, left eye Other specified visual disturbances Pre-operative clearance- Primary Unspecified pre-operative examination Class 2 severe obesity due to excess calories with serious comorbidity and body mass index (BMI) of 36.0 to 36.9 in adult ([facility]) Body mass index (BMI) 35.0-35.9, adult Closed head injury, sequela Hematoma of frontal scalp, sequela Age-related osteoporosis without current pathological fracture ([facility]) Essential (primary) hypertension ([facility]) Unspecified essential hypertension Gastroesophageal reflux disease without esophagitis Esophageal reflux Type 2 diabetes mellitus without complication, without long-term current use of insulin ([facility]) Blurry vision, left eye Other specified visual disturbances Fibromyalgia Unspecified myalgia and myositis Polyneuropathy in diseases classified elsewhere ([facility]) ODALYS (generalized anxiety disorder) ([facility]) Generalized anxiety disorder documented in this encounter [facility] HealthcareEvaluation note* Diagnosis Benign essential HTN ([facility])- Primary Gastroesophageal reflux disease without esophagitis Esophageal reflux Stage 3 chronic kidney disease, unspecified whether stage 3a or 3b CKD (HCC) ([facility]) Class 2 severe obesity due to excess calories with serious comorbidity and body mass index (BMI) of 36.0 to 36.9 in adult ([facility]) Menopause Symptomatic menopausal or female climacteric states Encounter for screening mammogram for malignant neoplasm of breast Encounter for subsequent annual wellness visit (AWV) in Medicare patient- Primary Benign essential HTN ([facility]) Gastroesophageal reflux disease without esophagitis Esophageal reflux Stage 3 chronic kidney disease, unspecified whether stage 3a or 3b CKD (HCC) ([facility]) 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, without long-term current use of insulin, unspecified whether stage 3a or 3b CKD (HCC) ([facility]) Acute pain of right shoulder- Primary Class 2 severe obesity due to excess calories with serious comorbidity and body mass index (BMI) of 36.0 to 36.9 in adult ([facility]) Primary osteoarthritis involving multiple joints Preoperative clearance- Primary Unspecified pre-operative examination Type 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 ([facility]) Malignant neoplasm of unspecified ovary ([facility]) Polyneuropathy in diseases classified elsewhere ([facility]) Secondary hyperparathyroidism of renal origin ([facility]) Secondary hyperparathyroidism (of renal origin) Hypertensive chronic kidney disease with stage 1 through stage 4 chronic kidney disease, or unspecified chronic kidney disease ([facility]) Age-related osteoporosis without current pathological fracture ([facility]) Essential (primary) hypertension ([facility]) Unspecified essential hypertension Type 2 diabetes mellitus with diabetic neuropathy, unspecified ([facility]) Secondary hyperparathyroidism ([facility]) Secondary hyperparathyroidism (of renal origin) Acute pain of right shoulder Essential (primary) hypertension ([facility])- Primary Unspecified essential hypertension Fibromyalgia Unspecified myalgia and myositis Polyneuropathy in diseases classified elsewhere ([facility]) ODALYS (generalized anxiety disorder) ([facility]) Generalized anxiety disorder Type 2 diabetes mellitus without complication, without long-term current use of insulin ([facility]) Fibromyalgia- Primary Unspecified myalgia and myositis Polyneuropathy in diseases classified elsewhere ([facility]) Class 2 severe obesity due to excess calories with serious comorbidity and body mass index (BMI) of 36.0 to 36.9 in adult ([facility]) ODALYS (generalized anxiety disorder) ([facility]) Generalized anxiety disorder Essential (primary) hypertension ([facility]) Unspecified essential hypertension Age-related osteoporosis without current pathological fracture ([facility]) Primary osteoarthritis involving multiple joints Class 2 severe obesity due to excess calories with serious comorbidity and body mass index (BMI) of 36.0 to 36.9 in adult ([facility])- Primary Essential (primary) hypertension ([facility]) Unspecified essential hypertension Acute non-recurrent pansinusitis Encounter for screening mammogram for malignant neoplasm of breast Hematoma of frontal scalp, subsequent encounter- Primary Closed head injury, subsequent encounter Class 2 severe obesity due to excess calories with serious comorbidity and body mass index (BMI) of 36.0 to 36.9 in adult ([facility]) Essential (primary) hypertension ([facility]) Unspecified essential hypertension Hematoma of frontal scalp, sequela- Primary Morbid (severe) obesity due to excess calories ([facility]) Essential (primary) hypertension ([facility]) Unspecified essential hypertension Body mass index (BMI) 35.0-35.9, adult Type 2 diabetes mellitus with diabetic neuropathy, unspecified ([facility]) Malignant neoplasm of unspecified ovary ([facility]) Type 2 diabetes mellitus with diabetic cataract ([facility]) Type II or unspecified type diabetes mellitus with ophthalmic manifestations, not stated as uncontrolled Type 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 ([facility]) Chronic kidney disease, stage 3a (HCC) ([facility]) Hypertensive chronic kidney disease with stage 1 through stage 4 chronic kidney disease, or unspecified chronic kidney disease ([facility]) Class 2 severe obesity due to excess calories with serious comorbidity and body mass index (BMI) of 36.0 to 36.9 in adult ([facility]) Closed head injury, sequela Blurry vision, left eye Other specified visual disturbances Pre-operative clearance- Primary Unspecified pre-operative examination Class 2 severe obesity due to excess calories with serious comorbidity and body mass index (BMI) of 36.0 to 36.9 in adult ([facility]) Body mass index (BMI) 35.0-35.9, adult Closed head injury, sequela Hematoma of frontal scalp, sequela Age-related osteoporosis without current pathological fracture ([facility]) Essential (primary) hypertension ([facility]) Unspecified essential hypertension Gastroesophageal reflux disease without esophagitis Esophageal reflux Type 2 diabetes mellitus without complication, without long-term current use of insulin ([facility]) Blurry vision, left eye Other specified visual disturbances Dermatophytosis of nail- Primary Dystrophic nail Other specified disease of nail Pain around toenail, right foot Pain around toenail, left foot documented in this encounter [facility]* Diagnosis S/P reverse total shoulder arthroplasty, right- Primary documented in this encounter [facility]* Diagnosis S/P reverse total shoulder arthroplasty, right- Primary documented in this encounter [facility]* Diagnosis Benign essential HTN (CMS/HCC)- Primary Gastroesophageal reflux disease without esophagitis Esophageal reflux Stage 3 chronic kidney disease, unspecified whether stage 3a or 3b CKD (HCC) ([facility]) Class 2 severe obesity due to excess calories with serious comorbidity and body mass index (BMI) of 36.0 to 36.9 in adult ([facility]) Menopause Symptomatic menopausal or female climacteric states Encounter for screening mammogram for malignant neoplasm of breast Encounter for subsequent annual wellness visit (AWV) in Medicare patient- Primary Benign essential HTN ([facility]/HCC) Gastroesophageal reflux disease without esophagitis Esophageal reflux Stage 3 chronic kidney disease, unspecified whether stage 3a or 3b CKD (HCC) ([facility]) 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, without long-term current use of insulin, unspecified whether stage 3a or 3b CKD (HCC) ([facility]) Acute pain of right shoulder- Primary Class 2 severe obesity due to excess calories with serious comorbidity and body mass index (BMI) of 36.0 to 36.9 in adult ([facility]) Primary osteoarthritis involving multiple joints Preoperative clearance- Primary Unspecified pre-operative examination Type 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 ([facility]) Malignant neoplasm of unspecified ovary ([facility]) Polyneuropathy in diseases classified elsewhere ([facility]) Secondary hyperparathyroidism of renal origin ([facility]) Secondary hyperparathyroidism (of renal origin) Hypertensive chronic kidney disease with stage 1 through stage 4 chronic kidney disease, or unspecified chronic kidney disease ([facility]) Age-related osteoporosis without current pathological fracture ([facility]) Essential (primary) hypertension ([facility]) Unspecified essential hypertension Type 2 diabetes mellitus with diabetic neuropathy, unspecified ([facility]) Secondary hyperparathyroidism ([facility]/HCC) Secondary hyperparathyroidism (of renal origin) Acute pain of right shoulder Essential (primary) hypertension ([facility])- Primary Unspecified essential hypertension Fibromyalgia Unspecified myalgia and myositis Polyneuropathy in diseases classified elsewhere ([facility]) ODALYS (generalized anxiety disorder) ([facility]) Generalized anxiety disorder Type 2 diabetes mellitus without complication, without long-term current use of insulin ([facility]) Fibromyalgia- Primary Unspecified myalgia and myositis Polyneuropathy in diseases classified elsewhere ([facility]) Class 2 severe obesity due to excess calories with serious comorbidity and body mass index (BMI) of 36.0 to 36.9 in adult ([facility]) ODALYS (generalized anxiety disorder) ([facility]) Generalized anxiety disorder Essential (primary) hypertension ([facility]) Unspecified essential hypertension Age-related osteoporosis without current pathological fracture ([facility]) Primary osteoarthritis involving multiple joints Class 2 severe obesity due to excess calories with serious comorbidity and body mass index (BMI) of 36.0 to 36.9 in adult ([facility])- Primary Essential (primary) hypertension ([facility]) Unspecified essential hypertension Acute non-recurrent pansinusitis Encounter for screening mammogram for malignant neoplasm of breast Hematoma of frontal scalp, subsequent encounter- Primary Closed head injury, subsequent encounter Class 2 severe obesity due to excess calories with serious comorbidity and body mass index (BMI) of 36.0 to 36.9 in adult ([facility]) Essential (primary) hypertension ([facility]) Unspecified essential hypertension Hematoma of frontal scalp, sequela- Primary Morbid (severe) obesity due to excess calories ([facility]) Essential (primary) hypertension ([facility]) Unspecified essential hypertension Body mass index (BMI) 35.0-35.9, adult Type 2 diabetes mellitus with diabetic neuropathy, unspecified ([facility]) Malignant neoplasm of unspecified ovary ([facility]) Type 2 diabetes mellitus with diabetic cataract ([facility]) Type II or unspecified type diabetes mellitus with ophthalmic manifestations, not stated as uncontrolled Type 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 ([facility]) Chronic kidney disease, stage 3a (HCC) ([facility]) Hypertensive chronic kidney disease with stage 1 through stage 4 chronic kidney disease, or unspecified chronic kidney disease ([facility]) Class 2 severe obesity due to excess calories with serious comorbidity and body mass index (BMI) of 36.0 to 36.9 in adult ([facility]) Closed head injury, sequela Blurry vision, left eye Other specified visual disturbances Pre-operative clearance- Primary Unspecified pre-operative examination Class 2 severe obesity due to excess calories with serious comorbidity and body mass index (BMI) of 36.0 to 36.9 in adult (CMS/HCC) Body mass index (BMI) 35.0-35.9, adult Closed [...] of right shoulder documented in this encounter [facility]* Diagnosis Benign essential HTN (CMS/HCC)- [...] (BMI) of 36.0 to 36.9 in adult ([facility]/HCC) Primary osteoarthritis involving multiple joints Preoperative clearance- Primary Unspecified pre-operative examination Type 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 (CMS/HCC) Malignant neoplasm of unspecified ovary (CMS/HCC) Polyneuropathy in diseases classified elsewhere ([facility]/HCC) Secondary hyperparathyroidism of renal origin (CMS/HCC) Secondary [...] pain of right shoulder Essential (primary) hypertension ([facility])- Primary Unspecified essential hypertension Fibromyalgia Unspecified myalgia and myositis Polyneuropathy in diseases classified elsewhere ([facility]) ODALYS (generalized anxiety disorder) ([facility]) Generalized anxiety disorder Type 2 diabetes mellitus without complication, without long-term current use of insulin ([facility]) Fibromyalgia- Primary Unspecified myalgia and myositis Polyneuropathy in diseases classified elsewhere ([facility]) Class 2 severe obesity due to excess calories with serious comorbidity and body mass index (BMI) of 36.0 to 36.9 in adult ([facility]) ODALYS (generalized anxiety disorder) ([facility]) Generalized anxiety disorder Essential (primary) hypertension ([facility]) Unspecified essential hypertension Age-related osteoporosis without current pathological fracture ([facility]) Primary osteoarthritis involving multiple joints Class 2 severe obesity due to excess calories with serious comorbidity and body mass index (BMI) of 36.0 to 36.9 in adult ([facility])- Primary Essential (primary) hypertension ([facility]) Unspecified essential hypertension Acute non-recurrent pansinusitis Encounter for screening mammogram for malignant neoplasm of breast Hematoma of frontal scalp, subsequent encounter- Primary Closed head injury, subsequent encounter Class 2 severe obesity due to excess calories with serious comorbidity and body mass index (BMI) of 36.0 to 36.9 in adult ([facility]) Essential (primary) hypertension ([facility]) Unspecified essential hypertension Hematoma of frontal scalp, sequela- Primary Morbid (severe) obesity due to excess calories ([facility]) Essential (primary) hypertension ([facility]) Unspecified essential hypertension Body mass index (BMI) 35.0-35.9, adult Type 2 diabetes mellitus with diabetic neuropathy, unspecified ([facility]) Malignant neoplasm of unspecified ovary ([facility]) Type 2 diabetes mellitus with diabetic cataract ([facility]) Type II or unspecified type diabetes mellitus with ophthalmic manifestations, not stated as uncontrolled Type 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 ([facility]) Chronic kidney disease, stage 3a ([facility]) ([facility]) Hypertensive chronic kidney disease with stage 1 through stage 4 chronic kidney disease, or unspecified chronic kidney disease ([facility]) Class 2 severe obesity due to excess calories with serious comorbidity and body mass index (BMI) of 36.0 to 36.9 in adult ([facility]) Closed head injury, sequela Blurry vision, left eye Other specified visual disturbances Pre-operative clearance- Primary Unspecified pre-operative examination Class 2 severe obesity due to excess calories with serious comorbidity and body mass index (BMI) of 36.0 to 36.9 in adult ([facility]) Body mass index (BMI) 35.0-35.9, adult Closed head injury, sequela Hematoma of frontal scalp, sequela Age-related osteoporosis without current pathological fracture ([facility]) Essential (primary) hypertension ([facility]) Unspecified essential hypertension Gastroesophageal reflux disease without esophagitis Esophageal reflux Type 2 diabetes mellitus without complication, without long-term current use of insulin ([facility]) Blurry vision, left eye Other specified visual disturbances Acute pain of right shoulder- Primary Status post reverse total arthroplasty of right shoulder documented in this encounter [facility]* Diagnosis Benign essential HTN ([facility]/HCC)- Primary Gastroesophageal reflux disease without esophagitis Esophageal reflux Stage 3 chronic kidney disease, unspecified whether stage 3a or 3b CKD (HCC) ([facility]) Class 2 severe obesity due to excess calories with serious comorbidity and body mass index (BMI) of 36.0 to 36.9 in adult ([facility]) Menopause Symptomatic menopausal or female climacteric states Encounter for screening mammogram for malignant neoplasm of breast Encounter for subsequent annual wellness visit (AWV) in Medicare patient- Primary Benign essential HTN ([facility]) Gastroesophageal reflux disease without esophagitis Esophageal reflux Stage 3 chronic kidney disease, unspecified whether stage 3a or 3b CKD (HCC) ([facility]) 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, without long-term current use of insulin, unspecified whether stage 3a or 3b CKD (HCC) ([facility]) Acute pain of right shoulder- Primary Class 2 severe obesity due to excess calories with serious comorbidity and body mass index (BMI) of 36.0 to 36.9 in adult ([facility]) Primary osteoarthritis involving multiple joints Preoperative clearance- Primary Unspecified pre-operative examination Type 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 ([facility]) Malignant neoplasm of unspecified ovary ([facility]) Polyneuropathy in diseases classified elsewhere ([facility]) Secondary hyperparathyroidism of renal origin ([facility]) Secondary hyperparathyroidism (of renal origin) Hypertensive chronic kidney disease with stage 1 through stage 4 chronic kidney disease, or unspecified chronic kidney disease ([facility]) Age-related osteoporosis without current pathological fracture ([facility]) Essential (primary) hypertension ([facility]) Unspecified essential hypertension Type 2 diabetes mellitus with diabetic neuropathy, unspecified ([facility]) Secondary hyperparathyroidism ([facility]) Secondary hyperparathyroidism (of renal origin) Acute pain of right shoulder Essential (primary) hypertension ([facility])- Primary Unspecified essential hypertension Fibromyalgia Unspecified myalgia and myositis Polyneuropathy in diseases classified elsewhere ([facility]) ODALYS (generalized anxiety disorder) ([facility]) Generalized anxiety disorder Type 2 diabetes mellitus without complication, without long-term current use of insulin ([facility]) Fibromyalgia- Primary Unspecified myalgia and myositis Polyneuropathy in diseases classified elsewhere ([facility]) Class 2 severe obesity due to excess calories with serious comorbidity and body mass index (BMI) of 36.0 to 36.9 in adult ([facility]) ODALYS (generalized anxiety disorder) ([facility] Generalized anxiety disorder Essential (primary) hypertension ([facility]) Unspecified essential hypertension Age-related osteoporosis without current pathological fracture ([facility]) Primary osteoarthritis involving multiple joints Class 2 severe obesity due to excess calories with serious comorbidity and body mass index (BMI) of 36.0 to 36.9 in adult ([facility])- Primary Essential (primary) hypertension ([facility]) Unspecified essential hypertension Acute non-recurrent pansinusitis Encounter for screening mammogram for malignant neoplasm of breast Hematoma of frontal scalp, subsequent encounter- Primary Closed head injury, subsequent encounter Class 2 severe obesity due to excess calories with serious comorbidity and body mass index (BMI) of 36.0 to 36.9 in adult ([facility]) Essential (primary) hypertension ([facility]) Unspecified essential hypertension Hematoma of frontal scalp, sequela- Primary Morbid (severe) obesity due to excess calories ([facility]) Essential (primary) hypertension ([facility]) Unspecified essential hypertension Body mass index (BMI) 35.0-35.9, adult Type 2 diabetes mellitus with diabetic neuropathy, unspecified ([facility]) Malignant neoplasm of unspecified ovary ([facility]) Type 2 diabetes mellitus with diabetic cataract ([facility]) Type II or unspecified type diabetes mellitus with ophthalmic manifestations, not stated as uncontrolled Type 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 ([facility]) Chronic kidney disease, stage 3a (HCC) ([facility]) Hypertensive chronic kidney disease with stage 1 through stage 4 chronic kidney disease, or unspecified chronic kidney disease ([facility]/HCC) Class 2 severe obesity due to excess calories with serious comorbidity and body mass index (BMI) of 36.0 to 36.9 in adult ([facility]) Closed head injury, sequela Blurry vision, left eye Other specified visual disturbances Pre-operative clearance- Primary Unspecified pre-operative examination Class 2 severe obesity due to excess calories with serious comorbidity and body mass index (BMI) of 36.0 to 36.9 in adult ([facility]) Body mass index (BMI) 35.0-35.9, adult Closed head injury, sequela Hematoma of frontal scalp, sequela Age-related osteoporosis without current pathological fracture ([facility]) Essential (primary) hypertension ([facility]) Unspecified essential hypertension Gastroesophageal reflux disease without esophagitis Esophageal reflux Type 2 diabetes mellitus without complication, without long-term current use of insulin ([facility]) Blurry vision, left eye Other specified visual disturbances Acute pain of right shoulder- Primary Status post reverse total arthroplasty of right shoulder Shoulder stiffness, right documented in this encounter [facility] HealthcareEvaluation note* Diagnosis Benign essential HTN (CMS/HCC)- Primary Gastroesophageal reflux disease without esophagitis Esophageal reflux Stage 3 chronic kidney disease, unspecified whether stage 3a or 3b CKD (HCC) ([facility]) Class 2 severe obesity due to excess calories with serious comorbidity and body mass index (BMI) of 36.0 to 36.9 in adult ([facility]) Menopause Symptomatic menopausal or female climacteric states Encounter for screening mammogram for malignant neoplasm of breast Encounter for subsequent annual wellness visit (AWV) in Medicare patient- Primary Benign essential HTN (CMS/HCC) Gastroesophageal reflux disease without esophagitis Esophageal reflux Stage 3 chronic kidney disease, unspecified whether stage 3a or 3b CKD (HCC) ([facility]) 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, without long-term current use of insulin, unspecified whether stage 3a or 3b CKD (HCC) (CMS/HCC) Acute pain of right shoulder- Primary Class 2 severe obesity due to excess calories with serious comorbidity and body mass index (BMI) of 36.0 to 36.9 in adult ([facility]) Primary osteoarthritis involving multiple joints Preoperative clearance- Primary Unspecified pre-operative examination Type 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 ([facility]) Malignant neoplasm of unspecified ovary (CMS/[facility]) Polyneuropathy in diseases classified elsewhere ([facility]) Secondary hyperparathyroidism of renal origin ([facility]) Secondary hyperparathyroidism (of renal origin) Hypertensive chronic kidney disease with stage 1 through stage 4 chronic kidney disease, or unspecified chronic kidney disease ([facility]) Age-related osteoporosis without current pathological fracture ([facility]) Essential (primary) hypertension ([facility]) Unspecified essential hypertension Type 2 diabetes mellitus with diabetic neuropathy, unspecified ([facility]) Secondary hyperparathyroidism ([facility]) Secondary hyperparathyroidism (of renal origin) Acute pain of right shoulder Essential (primary) hypertension ([facility])- Primary Unspecified essential hypertension Fibromyalgia Unspecified myalgia and myositis Polyneuropathy in diseases classified elsewhere ([facility]) ODALYS (generalized anxiety disorder) ([facility]) Generalized anxiety disorder Type 2 diabetes mellitus without complication, without long-term current use of insulin ([facility]) Fibromyalgia- Primary Unspecified myalgia and myositis Polyneuropathy in diseases classified elsewhere ([facility]) Class 2 severe obesity due to excess calories with serious comorbidity and body mass index (BMI) of 36.0 to 36.9 in adult ([facility]) ODALYS (generalized anxiety disorder) ([facility]) Generalized anxiety disorder Essential (primary) hypertension ([facility]) Unspecified essential hypertension Age-related osteoporosis without current pathological fracture ([facility]) Primary osteoarthritis involving multiple joints Class 2 severe obesity due to excess calories with serious comorbidity and body mass index (BMI) of 36.0 to 36.9 in adult ([facility])- Primary Essential (primary) hypertension ([facility]) Unspecified essential hypertension Acute non-recurrent pansinusitis Encounter for screening mammogram for malignant neoplasm of breast Hematoma of frontal scalp, subsequent encounter- Primary Closed head injury, subsequent encounter Class 2 severe obesity due to excess calories with serious comorbidity and body mass index (BMI) of 36.0 to 36.9 in adult ([facility]) Essential (primary) hypertension ([facility]) Unspecified essential hypertension Hematoma of frontal scalp, sequela- Primary Morbid (severe) obesity due to excess calories ([facility]) Essential (primary) hypertension ([facility]) Unspecified essential hypertension Body mass index (BMI) 35.0-35.9, adult Type 2 diabetes mellitus with diabetic neuropathy, unspecified ([facility]) Malignant neoplasm of unspecified ovary ([facility]) Type 2 diabetes mellitus with diabetic cataract ([facility]) Type II or unspecified type diabetes mellitus with ophthalmic manifestations, not stated as uncontrolled Type 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 ([facility]) Chronic kidney disease, stage 3a (HCC) ([facility]) Hypertensive chronic kidney disease with stage 1 through stage 4 chronic kidney disease, or unspecified chronic kidney disease ([facility]) Class 2 severe obesity due to excess calories with serious comorbidity and body mass index (BMI) of 36.0 to 36.9 in adult ([facility]) Closed head injury, sequela Blurry vision, left eye Other specified visual disturbances Pre-operative clearance- Primary Unspecified pre-operative examination Class 2 severe obesity due to excess calories with serious comorbidity and body mass index (BMI) of 36.0 to 36.9 in adult ([facility]) Body mass index (BMI) 35.0-35.9, adult Closed head injury, sequela Hematoma of frontal scalp, sequela Age-related osteoporosis without current pathological fracture ([facility]) Essential (primary) hypertension ([facility]) Unspecified essential hypertension Gastroesophageal reflux disease without esophagitis Esophageal reflux Type 2 diabetes mellitus without complication, without long-term current use of insulin ([facility]) Blurry vision, left eye Other specified visual disturbances Acute pain of right shoulder- Primary Status post reverse total arthroplasty of right shoulder Shoulder stiffness, right documented in this encounter [facility] HealthcareEvaluation note* Diagnosis Benign essential HTN ([facility])- Primary Gastroesophageal reflux disease without esophagitis Esophageal reflux Stage 3 chronic kidney disease, unspecified whether stage 3a or 3b CKD (HCC) ([facility]) Class 2 severe obesity due to excess calories with serious comorbidity and body mass index (BMI) of 36.0 to 36.9 in adult ([facility]) Menopause Symptomatic menopausal or female climacteric states Encounter for screening mammogram for malignant neoplasm of breast Encounter for subsequent annual wellness visit (AWV) in Medicare patient- Primary Benign essential HTN ([facility]) Gastroesophageal reflux disease without esophagitis Esophageal reflux Stage 3 chronic kidney disease, unspecified whether stage 3a or 3b CKD (HCC) ([facility]) 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, without long-term current use of insulin, unspecified whether stage 3a or 3b CKD (HCC) ([facility]) Acute pain of right shoulder- Primary Class 2 severe obesity due to excess calories with serious comorbidity and body mass index (BMI) of 36.0 to 36.9 in adult ([facility]) Primary osteoarthritis involving multiple joints Preoperative clearance- Primary Unspecified pre-operative examination Type 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 ([facility]) Malignant neoplasm of unspecified ovary ([facility]) Polyneuropathy in diseases classified elsewhere ([facility]) Secondary hyperparathyroidism of renal origin ([facility]) Secondary hyperparathyroidism (of renal origin) Hypertensive chronic kidney disease with stage 1 through stage 4 chronic kidney disease, or unspecified chronic kidney disease ([facility]) Age-related osteoporosis without current pathological fracture ([facility]) Essential (primary) hypertension ([facility]) Unspecified essential hypertension Type 2 diabetes mellitus with diabetic neuropathy, unspecified ([facility]) Secondary hyperparathyroidism ([facility]) Secondary hyperparathyroidism (of renal origin) Acute pain of right shoulder Essential (primary) hypertension ([facility])- Primary Unspecified essential hypertension Fibromyalgia Unspecified myalgia and myositis Polyneuropathy in diseases classified elsewhere ([facility]) ODALYS (generalized anxiety disorder) ([facility]) Generalized anxiety disorder Type 2 diabetes mellitus without complication, without long-term current use of insulin ([facility]) Fibromyalgia- Primary Unspecified myalgia and myositis Polyneuropathy in diseases classified elsewhere ([facility]) Class 2 severe obesity due to excess calories with serious comorbidity and body mass index (BMI) of 36.0 to 36.9 in adult ([facility]) ODALYS (generalized anxiety disorder) ([facility]) Generalized anxiety disorder Essential (primary) hypertension ([facility]) Unspecified essential hypertension Age-related osteoporosis without current pathological fracture ([facility]) Primary osteoarthritis involving multiple joints Class 2 severe obesity due to excess calories with serious comorbidity and body mass index (BMI) of 36.0 to 36.9 in adult ([facility])- Primary Essential (primary) hypertension ([facility]) Unspecified essential hypertension Acute non-recurrent pansinusitis Encounter for screening mammogram for malignant neoplasm of breast Hematoma of frontal scalp, subsequent encounter- Primary Closed head injury, subsequent encounter Class 2 severe obesity due to excess calories with serious comorbidity and body mass index (BMI) of 36.0 to 36.9 in adult ([facility]) Essential (primary) hypertension ([facility]) Unspecified essential hypertension Hematoma of frontal scalp, sequela- Primary Morbid (severe) obesity due to excess calories ([facility]) Essential (primary) hypertension ([facility]) Unspecified essential hypertension Body mass index (BMI) 35.0-35.9, adult Type 2 diabetes mellitus with diabetic neuropathy, unspecified ([facility]) Malignant neoplasm of unspecified ovary ([facility]) Type 2 diabetes mellitus with diabetic cataract ([facility]) Type II or unspecified type diabetes mellitus with ophthalmic manifestations, not stated as uncontrolled Type 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 ([facility]) Chronic kidney disease, stage 3a (HCC) ([facility]) Hypertensive chronic kidney disease with stage 1 through stage 4 chronic kidney disease, or unspecified chronic kidney disease ([facility]) Class 2 severe obesity due to excess calories with serious comorbidity and body mass index (BMI) of 36.0 to 36.9 in adult ([facility]) Closed head injury, sequela Blurry vision, left eye Other specified visual disturbances Pre-operative clearance- Primary Unspecified pre-operative examination Class 2 severe obesity due to excess calories with serious comorbidity and body mass index (BMI) of 36.0 to 36.9 in adult ([facility]) Body mass index (BMI) 35.0-35.9, adult Closed head injury, sequela Hematoma of frontal scalp, sequela Age-related osteoporosis without current pathological fracture ([facility]) Essential (primary) hypertension ([facility]) Unspecified essential hypertension Gastroesophageal reflux disease without esophagitis Esophageal reflux Type 2 diabetes mellitus without complication, without long-term current use of insulin ([facility]) Blurry vision, left eye Other specified visual disturbances Encounter for subsequent annual wellness visit (AWV) in Medicare patient- Primary Type 2 diabetes mellitus with diabetic neuropathy, without long-term current use of insulin ([facility]) Essential (primary) hypertension ([facility]) Unspecified essential hypertension Hypertensive chronic kidney disease with stage 1 through stage 4 chronic kidney disease, or unspecified chronic kidney disease ([facility]) Gastroesophageal reflux disease without esophagitis Esophageal reflux Age-related osteoporosis without current pathological fracture ([facility]) Fibromyalgia Unspecified myalgia and myositis Class 2 severe obesity due to excess calories with serious comorbidity and body mass index (BMI) of 36.0 to 36.9 in adult ([facility]) Type 2 diabetes mellitus without complication, without long-term current use of insulin ([facility]) Mixed hyperlipidemia ([facility]) Mixed hyperlipidemia documented in this encounter [facility] HealthcareEvaluation note* Diagnosis Benign essential HTN ([facility]/HCC)- Primary Gastroesophageal reflux disease without esophagitis Esophageal reflux Stage 3 chronic kidney disease, unspecified whether stage 3a or 3b CKD (HCC) ([facility]) Class 2 severe obesity due to excess calories with serious comorbidity and body mass index (BMI) of 36.0 to 36.9 in adult ([facility]) Menopause Symptomatic menopausal or female climacteric states Encounter for screening mammogram for malignant neoplasm of breast Encounter for subsequent annual wellness visit (AWV) in Medicare patient- Primary Benign essential HTN (CMS/HCC) Gastroesophageal reflux disease without esophagitis Esophageal reflux Stage 3 chronic kidney disease, unspecified whether stage 3a or 3b CKD (HCC) ([facility]) 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, without long-term current use of insulin, unspecified whether stage 3a or 3b CKD (HCC) ([facility]) Acute pain of right shoulder- Primary Class 2 severe obesity due to excess calories with serious comorbidity and body mass index (BMI) of 36.0 to 36.9 in adult ([facility]) Primary osteoarthritis involving multiple joints Preoperative clearance- Primary Unspecified pre-operative examination Type 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 ([facility]) Malignant neoplasm of unspecified ovary ([facility]) Polyneuropathy in diseases classified elsewhere ([facility]) Secondary hyperparathyroidism of renal origin ([facility]) Secondary hyperparathyroidism (of renal origin) Hypertensive chronic kidney disease with stage 1 through stage 4 chronic kidney disease, or unspecified chronic kidney disease ([facility]) Age-related osteoporosis without current pathological fracture ([facility]) Essential (primary) hypertension ([facility]) Unspecified essential hypertension Type 2 diabetes mellitus with diabetic neuropathy, unspecified ([facility]) Secondary hyperparathyroidism ([facility]) Secondary hyperparathyroidism (of renal origin) Acute pain of right shoulder Essential (primary) hypertension ([facility])- Primary Unspecified essential hypertension Fibromyalgia Unspecified myalgia and myositis Polyneuropathy in diseases classified elsewhere ([facility]) ODALYS (generalized anxiety disorder) ([facility]) Generalized anxiety disorder Type 2 diabetes mellitus without complication, without long-term current use of insulin ([facility]) Fibromyalgia- Primary Unspecified myalgia and myositis Polyneuropathy in diseases classified elsewhere ([facility]) Class 2 severe obesity due to excess calories with serious comorbidity and body mass index (BMI) of 36.0 to 36.9 in adult ([facility]) ODALYS (generalized anxiety disorder) ([facility]) Generalized anxiety disorder Essential (primary) hypertension ([facility]) Unspecified essential hypertension Age-related osteoporosis without current pathological fracture ([facility]) Primary osteoarthritis involving multiple joints Class 2 severe obesity due to excess calories with serious comorbidity and body mass index (BMI) of 36.0 to 36.9 in adult ([facility])- Primary Essential (primary) hypertension ([facility]) Unspecified essential hypertension Acute non-recurrent pansinusitis Encounter for screening mammogram for malignant neoplasm of breast Hematoma of frontal scalp, subsequent encounter- Primary Closed head injury, subsequent encounter Class 2 severe obesity due to excess calories with serious comorbidity and body mass index (BMI) of 36.0 to 36.9 in adult ([facility]) Essential (primary) hypertension ([facility]) Unspecified essential hypertension Hematoma of frontal scalp, sequela- Primary Morbid (severe) obesity due to excess calories ([facility]) Essential (primary) hypertension ([facility]) Unspecified essential hypertension Body mass index (BMI) 35.0-35.9, adult Type 2 diabetes mellitus with diabetic neuropathy, unspecified ([facility]) Malignant neoplasm of unspecified ovary ([facility]) Type 2 diabetes mellitus with diabetic cataract ([facility]) Type II or unspecified type diabetes mellitus with ophthalmic manifestations, not stated as uncontrolled Type 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 ([facility]) Chronic kidney disease, stage 3a ([facility]) ([facility]) Hypertensive chronic kidney disease with stage 1 through stage 4 chronic kidney disease, or unspecified chronic kidney disease ([facility]) Class 2 severe obesity due to excess calories with serious comorbidity and body mass index (BMI) of 36.0 to 36.9 in adult ([facility]) Closed head injury, sequela Blurry vision, left eye Other specified visual disturbances Pre-operative clearance- Primary Unspecified pre-operative examination Class 2 severe obesity due to excess calories with serious comorbidity and body mass index (BMI) of 36.0 to 36.9 in adult ([facility]) Body mass index (BMI) 35.0-35.9, adult Closed head injury, sequela Hematoma of frontal scalp, sequela Age-related osteoporosis without current pathological fracture ([facility]) Essential (primary) hypertension ([facility]) Unspecified essential hypertension Gastroesophageal reflux disease without esophagitis Esophageal reflux Type 2 diabetes mellitus without complication, without long-term current use of insulin ([facility]) Blurry vision, left eye Other specified visual disturbances Encounter for subsequent annual wellness visit (AWV) in Medicare patient- Primary Type 2 diabetes mellitus with diabetic neuropathy, without long-term current use of insulin ([facility]) Essential (primary) hypertension ([facility]) Unspecified essential hypertension Hypertensive chronic kidney disease with stage 1 through stage 4 chronic kidney disease, or unspecified chronic kidney disease ([facility]) Gastroesophageal reflux disease without esophagitis Esophageal reflux Age-related osteoporosis without current pathological fracture ([facility]) Fibromyalgia Unspecified myalgia and myositis Class 2 severe obesity due to excess calories with serious comorbidity and body mass index (BMI) of 36.0 to 36.9 in adult ([facility]) Type 2 diabetes mellitus without complication, without long-term current use of insulin ([facility]) Mixed hyperlipidemia ([facility]) Mixed hyperlipidemia Acute pain of right shoulder- Primary Status post reverse total arthroplasty of right shoulder Shoulder stiffness, right documented in this encounter [facility] HealthcareEvaluation note* Diagnosis Benign essential HTN ([facility])- Primary Gastroesophageal reflux disease without esophagitis Esophageal reflux Stage 3 chronic kidney disease, unspecified whether stage 3a or 3b CKD (HCC) ([facility]) Class 2 severe obesity due to excess calories with serious comorbidity and body mass index (BMI) of 36.0 to 36.9 in adult ([facility]) Menopause Symptomatic menopausal or female climacteric states Encounter for screening mammogram for malignant neoplasm of breast Encounter for subsequent annual wellness visit (AWV) in Medicare patient- Primary Benign essential HTN ([facility]) Gastroesophageal reflux disease without esophagitis Esophageal reflux Stage 3 chronic kidney disease, unspecified whether stage 3a or 3b CKD (HCC) ([facility]) 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, without long-term current use of insulin, unspecified whether stage 3a or 3b CKD (HCC) ([facility]) Acute pain of right shoulder- Primary Class 2 severe obesity due to excess calories with serious comorbidity and body mass index (BMI) of 36.0 to 36.9 in adult ([facility]) Primary osteoarthritis involving multiple joints Preoperative clearance- Primary Unspecified pre-operative examination Type 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 ([facility]) Malignant neoplasm of unspecified ovary ([facility]) Polyneuropathy in diseases classified elsewhere ([facility]) Secondary hyperparathyroidism of renal origin ([facility]) Secondary hyperparathyroidism (of renal origin) Hypertensive chronic kidney disease with stage 1 through stage 4 chronic kidney disease, or unspecified chronic kidney disease ([facility]) Age-related osteoporosis without current pathological fracture ([facility]) Essential (primary) hypertension ([facility]) Unspecified essential hypertension Type 2 diabetes mellitus with diabetic neuropathy, unspecified ([facility]) Secondary hyperparathyroidism ([facility]) Secondary hyperparathyroidism (of renal origin) Acute pain of right shoulder Essential (primary) hypertension ([facility])- Primary Unspecified essential hypertension Fibromyalgia Unspecified myalgia and myositis Polyneuropathy in diseases classified elsewhere ([facility]) ODALYS (generalized anxiety disorder) ([facility]) Generalized anxiety disorder Type 2 diabetes mellitus without complication, without long-term current use of insulin ([facility]) Fibromyalgia- Primary Unspecified myalgia and myositis Polyneuropathy in diseases classified elsewhere ([facility]) Class 2 severe obesity due to excess calories with serious comorbidity and body mass index (BMI) of 36.0 to 36.9 in adult ([facility]) ODALYS (generalized anxiety disorder) ([facility]) Generalized anxiety disorder Essential (primary) hypertension ([facility]) Unspecified essential hypertension Age-related osteoporosis without current pathological fracture ([facility]) Primary osteoarthritis involving multiple joints Class 2 severe obesity due to excess calories with serious comorbidity and body mass index (BMI) of 36.0 to 36.9 in adult ([facility])- Primary Essential (primary) hypertension ([facility]) Unspecified essential hypertension Acute non-recurrent pansinusitis Encounter for screening mammogram for malignant neoplasm of breast Hematoma of frontal scalp, subsequent encounter- Primary Closed head injury, subsequent encounter Class 2 severe obesity due to excess calories with serious comorbidity and body mass index (BMI) of 36.0 to 36.9 in adult ([facility]) Essential (primary) hypertension ([facility]) Unspecified essential hypertension Hematoma of frontal scalp, sequela- Primary Morbid (severe) obesity due to excess calories ([facility]) Essential (primary) hypertension ([facility]) Unspecified essential hypertension Body mass index (BMI) 35.0-35.9, adult Type 2 diabetes mellitus with diabetic neuropathy, unspecified ([facility]) Malignant neoplasm of unspecified ovary ([facility]) Type 2 diabetes mellitus with diabetic cataract ([facility]) Type II or unspecified type diabetes mellitus with ophthalmic manifestations, not stated as uncontrolled Type 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 ([facility]) Chronic kidney disease, stage 3a (HCC) ([facility]) Hypertensive chronic kidney disease with stage 1 through stage 4 chronic kidney disease, or unspecified chronic kidney disease ([facility]) Class 2 severe obesity due to excess calories with serious comorbidity and body mass index (BMI) of 36.0 to 36.9 in adult ([facility]) Closed head injury, sequela Blurry vision, left eye Other specified visual disturbances Pre-operative clearance- Primary Unspecified pre-operative examination Class 2 severe obesity due to excess calories with serious comorbidity and body mass index (BMI) of 36.0 to 36.9 in adult ([facility]) Body mass index (BMI) 35.0-35.9, adult Closed head injury, sequela Hematoma of frontal scalp, sequela Age-related osteoporosis without current pathological fracture ([facility]) Essential (primary) hypertension ([facility]) Unspecified essential hypertension Gastroesophageal reflux disease without esophagitis Esophageal reflux Type 2 diabetes mellitus without complication, without long-term current use of insulin ([facility]) Blurry vision, left eye Other specified visual disturbances Encounter for subsequent annual wellness visit (AWV) in Medicare patient- Primary Type 2 diabetes mellitus with diabetic neuropathy, without long-term current use of insulin ([facility]) Essential (primary) hypertension ([facility]) Unspecified essential hypertension Hypertensive chronic kidney disease with stage 1 through stage 4 chronic kidney disease, or unspecified chronic kidney disease ([facility]) Gastroesophageal reflux disease without esophagitis Esophageal reflux Age-related osteoporosis without current pathological fracture ([facility]) Fibromyalgia Unspecified myalgia and myositis Class 2 severe obesity due to excess calories with serious comorbidity and body mass index (BMI) of 36.0 to 36.9 in adult ([facility]) Type 2 diabetes mellitus without complication, without long-term current use of insulin ([facility]) Mixed hyperlipidemia ([facility]) Mixed hyperlipidemia Acute pain of right shoulder- Primary Status post reverse total arthroplasty of right shoulder Shoulder stiffness, right documented in this encounter [facility] HealthcareEvaluation note* Diagnosis Benign essential HTN ([facility])- Primary Gastroesophageal reflux disease without esophagitis Esophageal reflux Stage 3 chronic kidney disease, unspecified whether stage 3a or 3b CKD (HCC) ([facility]) Class 2 severe obesity due to excess calories with serious comorbidity and body mass index (BMI) of 36.0 to 36.9 in adult ([facility]) Menopause Symptomatic menopausal or female climacteric states Encounter for screening mammogram for malignant neoplasm of breast Encounter for subsequent annual wellness visit (AWV) in Medicare patient- Primary Benign essential HTN ([facility]) Gastroesophageal reflux disease without esophagitis Esophageal reflux Stage 3 chronic kidney disease, unspecified whether stage 3a or 3b CKD (HCC) ([facility]) 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, without long-term current use of insulin, unspecified whether stage 3a or 3b CKD (HCC) ([facility]) Acute pain of right shoulder- Primary Class 2 severe obesity due to excess calories with serious comorbidity and body mass index (BMI) of 36.0 to 36.9 in adult ([facility]) Primary osteoarthritis involving multiple joints Preoperative clearance- Primary Unspecified pre-operative examination Type 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 ([facility]) Malignant neoplasm of unspecified ovary ([facility]) Polyneuropathy in diseases classified elsewhere ([facility]) Secondary hyperparathyroidism of renal origin ([facility]) Secondary hyperparathyroidism (of renal origin) Hypertensive chronic kidney disease with stage 1 through stage 4 chronic kidney disease, or unspecified chronic kidney disease ([facility]) Age-related osteoporosis without current pathological fracture ([facility]) Essential (primary) hypertension ([facility]) Unspecified essential hypertension Type 2 diabetes mellitus with diabetic neuropathy, unspecified ([facility]) Secondary hyperparathyroidism ([facility]) Secondary hyperparathyroidism (of renal origin) Acute pain of right shoulder Essential (primary) hypertension ([facility])- Primary Unspecified essential hypertension Fibromyalgia Unspecified myalgia and myositis Polyneuropathy in diseases classified elsewhere ([facility]) ODALYS (generalized anxiety disorder) ([facility]) Generalized anxiety disorder Type 2 diabetes mellitus without complication, without long-term current use of insulin ([facility]) Fibromyalgia- Primary Unspecified myalgia and myositis Polyneuropathy in diseases classified elsewhere ([facility]) Class 2 severe obesity due to excess calories with serious comorbidity and body mass index (BMI) of 36.0 to 36.9 in adult ([facility]) ODALYS (generalized anxiety disorder) ([facility]) Generalized anxiety disorder Essential (primary) hypertension ([facility]) Unspecified essential hypertension Age-related osteoporosis without current pathological fracture ([facility]) Primary osteoarthritis involving multiple joints Class 2 severe obesity due to excess calories with serious comorbidity and body mass index (BMI) of 36.0 to 36.9 in adult ([facility])- Primary Essential (primary) hypertension ([facility]) Unspecified essential hypertension Acute non-recurrent pansinusitis Encounter for screening mammogram for malignant neoplasm of breast Hematoma of frontal scalp, subsequent encounter- Primary Closed head injury, subsequent encounter Class 2 severe obesity due to excess calories with serious comorbidity and body mass index (BMI) of 36.0 to 36.9 in adult ([facility]) Essential (primary) hypertension ([facility]) Unspecified essential hypertension Hematoma of frontal scalp, sequela- Primary Morbid (severe) obesity due to excess calories ([facility]) Essential (primary) hypertension ([facility]) Unspecified essential hypertension Body mass index (BMI) 35.0-35.9, adult Type 2 diabetes mellitus with diabetic neuropathy, unspecified ([facility]) Malignant neoplasm of unspecified ovary ([facility]) Type 2 diabetes mellitus with diabetic cataract ([facility]) Type II or unspecified type diabetes mellitus with ophthalmic manifestations, not stated as uncontrolled Type 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 ([facility]) Chronic kidney disease, stage 3a ([facility]) ([facility]) Hypertensive chronic kidney disease with stage 1 through stage 4 chronic kidney disease, or unspecified chronic kidney disease ([facility]) Class 2 severe obesity due to excess calories with serious comorbidity and body mass index (BMI) of 36.0 to 36.9 in adult ([facility]) Closed head injury, sequela Blurry vision, left eye Other specified visual disturbances Pre-operative clearance- Primary Unspecified pre-operative examination Class 2 severe obesity due to excess calories with serious comorbidity and body mass index (BMI) of 36.0 to 36.9 in adult ([facility]) Body mass index (BMI) 35.0-35.9, adult Closed head injury, sequela Hematoma of frontal scalp, sequela Age-related osteoporosis without current pathological fracture ([facility]) Essential (primary) hypertension ([facility]) Unspecified essential hypertension Gastroesophageal reflux disease without esophagitis Esophageal reflux Type 2 diabetes mellitus without complication, without long-term current use of insulin ([facility]) Blurry vision, left eye Other specified visual disturbances Encounter for subsequent annual wellness visit (AWV) in Medicare patient- Primary Type 2 diabetes mellitus with diabetic neuropathy, without long-term current use of insulin ([facility]) Essential (primary) hypertension ([facility]) Unspecified essential hypertension Hypertensive chronic kidney disease with stage 1 through stage 4 chronic kidney disease, or unspecified chronic kidney disease ([facility]) Gastroesophageal reflux disease without esophagitis Esophageal reflux Age-related osteoporosis without current pathological fracture ([facility]) Fibromyalgia Unspecified myalgia and myositis Class 2 severe obesity due to excess calories with serious comorbidity and body mass index (BMI) of 36.0 to 36.9 in adult ([facility]) Type 2 diabetes mellitus without complication, without long-term current use of insulin ([facility]) Mixed hyperlipidemia ([facility]) Mixed hyperlipidemia Acute pain of right shoulder- Primary Status post reverse total arthroplasty of right shoulder documented in this encounter [facility] HealthcareEvaluation note* Diagnosis Benign essential HTN ([facility])- Primary Gastroesophageal reflux disease without esophagitis Esophageal reflux Stage 3 chronic kidney disease, unspecified whether stage 3a or 3b CKD (HCC) ([facility]) Class 2 severe obesity due to excess calories with serious comorbidity and body mass index (BMI) of 36.0 to 36.9 in adult ([facility]) Menopause Symptomatic menopausal or female climacteric states Encounter for screening mammogram for malignant neoplasm of breast Encounter for subsequent annual wellness visit (AWV) in Medicare patient- Primary Benign essential HTN ([facility]) Gastroesophageal reflux disease without esophagitis Esophageal reflux Stage 3 chronic kidney disease, unspecified whether stage 3a or 3b CKD (HCC) ([facility]) 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, without long-term current use of insulin, unspecified whether stage 3a or 3b CKD (HCC) ([facility]) Acute pain of right shoulder- Primary Class 2 severe obesity due to excess calories with serious comorbidity and body mass index (BMI) of 36.0 to 36.9 in adult ([facility]) Primary osteoarthritis involving multiple joints Preoperative clearance- Primary Unspecified pre-operative examination Type 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 ([facility] [facility]) Malignant neoplasm of unspecified ovary ([facility]) Polyneuropathy in diseases classified elsewhere ([facility]) Secondary hyperparathyroidism of renal origin ([facility]) Secondary hyperparathyroidism (of renal origin) Hypertensive chronic kidney disease with stage 1 through stage 4 chronic kidney disease, or unspecified chronic kidney disease ([facility]) Age-related osteoporosis without current pathological fracture ([facility]) Essential (primary) hypertension ([facility]) Unspecified essential hypertension Type 2 diabetes mellitus with diabetic neuropathy, unspecified ([facility]) Secondary hyperparathyroidism ([facility]) Secondary hyperparathyroidism (of renal origin) Acute pain of right shoulder Essential (primary) hypertension ([facility])- Primary Unspecified essential hypertension Fibromyalgia Unspecified myalgia and myositis Polyneuropathy in diseases classified elsewhere ([facility]) ODALYS (generalized anxiety disorder) ([facility]) Generalized anxiety disorder Type 2 diabetes mellitus without complication, without long-term current use of insulin Fibromyalgia- Primary Unspecified myalgia and myositis Polyneuropathy in diseases classified elsewhere ([facility]) Class 2 severe obesity due to excess calories with serious comorbidity and body mass index (BMI) of 36.0 to 36.9 in adult ([facility]) ODALYS (generalized anxiety disorder) ([facility]) Generalized anxiety disorder Essential (primary) hypertension ([facility]) Unspecified essential hypertension Age-related osteoporosis without current pathological fracture ([facility]) Primary osteoarthritis involving multiple joints Class 2 severe obesity due to excess calories with serious comorbidity and body mass index (BMI) of 36.0 to 36.9 in adult ([facility])- Primary Essential (primary) hypertension ([facility]) Unspecified essential hypertension Acute non-recurrent pansinusitis Encounter for screening mammogram for malignant neoplasm of breast Hematoma of frontal scalp, subsequent encounter- Primary Closed head injury, subsequent encounter Class 2 severe obesity due to excess calories with serious comorbidity and body mass index (BMI) of 36.0 to 36.9 in adult ([facility]) Essential (primary) hypertension ([facility]) Unspecified essential hypertension Hematoma of frontal scalp, sequela- Primary Morbid (severe) obesity due to excess calories ([facility]) Essential (primary) hypertension ([facility]) Unspecified essential hypertension Body mass index (BMI) 35.0-35.9, adult Type 2 diabetes mellitus with diabetic neuropathy, unspecified ([facility]) Malignant neoplasm of unspecified ovary ([facility]) Type 2 diabetes mellitus with diabetic cataract ([facility]) Type II or unspecified type diabetes mellitus with ophthalmic manifestations, not stated as uncontrolled Type 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 (CMS/HCC) Chronic kidney disease, stage 3a (HCC) ([facility]) Hypertensive chronic kidney disease with stage 1 through stage 4 chronic kidney disease, or unspecified chronic kidney disease ([facility]) Class 2 severe obesity due to excess calories with serious comorbidity and body mass index (BMI) of 36.0 to 36.9 in adult ([facility]) Closed head injury, sequela Blurry vision, left eye Other specified visual disturbances Pre-operative clearance- Primary Unspecified pre-operative examination Class 2 severe obesity due to excess calories with serious comorbidity and body mass index (BMI) of 36.0 to 36.9 in adult ([facility]) Body mass index (BMI) 35.0-35.9, adult Closed head injury, sequela Hematoma of frontal scalp, sequela Age-related osteoporosis without current pathological fracture ([facility]) Essential (primary) hypertension ([facility]) Unspecified essential hypertension Gastroesophageal reflux disease without esophagitis Esophageal reflux Type 2 diabetes mellitus without complication, without long-term current use of insulin Blurry vision, left eye Other specified visual disturbances Encounter for subsequent annual wellness visit (AWV) in Medicare patient- Primary Type 2 diabetes mellitus with diabetic neuropathy, without long-term current use of insulin ([facility]) Essential (primary) hypertension ([facility]) Unspecified essential hypertension Hypertensive chronic kidney disease with stage 1 through stage 4 chronic kidney disease, or unspecified chronic kidney disease ([facility]) Gastroesophageal reflux disease without esophagitis Esophageal reflux Age-related osteoporosis without current pathological fracture ([facility]) Fibromyalgia Unspecified myalgia and myositis Class 2 severe obesity due to excess calories with serious comorbidity and body mass index (BMI) of 36.0 to 36.9 in adult ([facility]) Type 2 diabetes mellitus without complication, without long-term current use of insulin Mixed hyperlipidemia ([facility]) Mixed hyperlipidemia Type 2 diabetes mellitus with diabetic neuropathy, unspecified ([facility]) documented in this encounter [facility] HealthcareEvaluation note* Diagnosis Benign essential HTN (CMS/HCC)- Primary Gastroesophageal reflux disease without esophagitis Esophageal reflux Stage 3 chronic kidney disease, unspecified whether stage 3a or 3b CKD (HCC) ([facility]) Class 2 severe obesity due to excess calories with serious comorbidity and body mass index (BMI) of 36.0 to 36.9 in adult ([facility]) Menopause Symptomatic menopausal or female climacteric states Encounter for screening mammogram for malignant neoplasm of breast Encounter for subsequent annual wellness visit (AWV) in Medicare patient- Primary Benign essential HTN ([facility]) Gastroesophageal reflux disease without esophagitis Esophageal reflux Stage 3 chronic kidney disease, unspecified whether stage 3a or 3b CKD (HCC) ([facility]) 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, without long-term current use of insulin, unspecified whether stage 3a or 3b CKD (HCC) ([facility]) Acute pain of right shoulder- Primary Class 2 severe obesity due to excess calories with serious comorbidity and body mass index (BMI) of 36.0 to 36.9 in adult ([facility]) Primary osteoarthritis involving multiple joints Preoperative clearance- Primary Unspecified pre-operative examination Type 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 ([facility]) Malignant neoplasm of unspecified ovary ([facility]) Polyneuropathy in diseases classified elsewhere ([facility]) Secondary hyperparathyroidism of renal origin ([facility]) Secondary hyperparathyroidism (of renal origin) Hypertensive chronic kidney disease with stage 1 through stage 4 chronic kidney disease, or unspecified chronic kidney disease ([facility]) Age-related osteoporosis without current pathological fracture ([facility]) Essential (primary) hypertension ([facility]) Unspecified essential hypertension Type 2 diabetes mellitus with diabetic neuropathy, unspecified ([facility]) Secondary hyperparathyroidism ([facility]) Secondary hyperparathyroidism (of renal origin) Acute pain of right shoulder Essential (primary) hypertension ([facility])- Primary Unspecified essential hypertension Fibromyalgia Unspecified myalgia and myositis Polyneuropathy in diseases classified elsewhere ([facility]) ODALYS (generalized anxiety disorder) ([facility]) Generalized anxiety disorder Type 2 diabetes mellitus without complication, without long-term current use of insulin Fibromyalgia- Primary Unspecified myalgia and myositis Polyneuropathy in diseases classified elsewhere ([facility]) Class 2 severe obesity due to excess calories with serious comorbidity and body mass index (BMI) of 36.0 to 36.9 in adult ([facility]) ODALYS (generalized anxiety disorder) ([facility]) Generalized anxiety disorder Essential (primary) hypertension ([facility]) Unspecified essential hypertension Age-related osteoporosis without current pathological fracture ([facility]) Primary osteoarthritis involving multiple joints Class 2 severe obesity due to excess calories with serious comorbidity and body mass index (BMI) of 36.0 to 36.9 in adult ([facility])- Primary Essential (primary) hypertension ([facility]) Unspecified essential hypertension Acute non-recurrent pansinusitis Encounter for screening mammogram for malignant neoplasm of breast Hematoma of frontal scalp, subsequent encounter- Primary Closed head injury, subsequent encounter Class 2 severe obesity due to excess calories with serious comorbidity and body mass index (BMI) of 36.0 to 36.9 in adult ([facility] [place]) Essential (primary) hypertension ([facility]) Unspecified essential hypertension Hematoma of frontal scalp, sequela- Primary Morbid (severe) obesity due to excess calories ([facility]) Essential (primary) hypertension ([facility]) Unspecified essential hypertension Body mass index (BMI) 35.0-35.9, adult Type 2 diabetes mellitus with diabetic neuropathy, unspecified ([facility]) Malignant neoplasm of unspecified ovary ([facility]) Type 2 diabetes mellitus with diabetic cataract ([facility]) Type II or unspecified type diabetes mellitus with ophthalmic manifestations, not stated as uncontrolled Type 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 ([facility]) Chronic kidney disease, stage 3a (HCC) ([facility]) Hypertensive chronic kidney disease with stage 1 through stage 4 chronic kidney disease, or unspecified chronic kidney disease ([facility]) Class 2 severe obesity due to excess calories with serious comorbidity and body mass index (BMI) of 36.0 to 36.9 in adult ([facility]) Closed head injury, sequela Blurry vision, left eye Other specified visual disturbances Pre-operative clearance- Primary Unspecified pre-operative examination Class 2 severe obesity due to excess calories with serious comorbidity and body mass index (BMI) of 36.0 to 36.9 in adult ([facility]) Body mass index (BMI) 35.0-35.9, adult Closed head injury, sequela Hematoma of frontal scalp, sequela Age-related osteoporosis without current pathological fracture ([facility]) Essential (primary) hypertension ([facility] [place]) Unspecified essential hypertension Gastroesophageal reflux disease without esophagitis Esophageal reflux Type 2 diabetes mellitus without complication, without long-term current use of insulin Blurry vision, left eye Other specified visual disturbances Encounter for subsequent annual wellness visit (AWV) in Medicare patient- Primary Type 2 diabetes mellitus with diabetic neuropathy, without long-term current use of insulin ([facility]) Essential (primary) hypertension ([facility]) Unspecified essential hypertension Hypertensive chronic kidney disease with stage 1 through stage 4 chronic kidney disease, or unspecified chronic kidney disease (CMS/HCC) Gastroesophageal reflux disease without esophagitis Esophageal reflux Age-related osteoporosis without current pathological fracture (CMS/HCC) Fibromyalgia Unspecified myalgia and myositis Class 2 severe obesity due to excess calories with serious comorbidity and body mass index (BMI) of 36.0 to 36.9 in adult ([facility]) Type 2 diabetes mellitus without complication, without long-term current use of insulin Mixed hyperlipidemia (CMS/HCC) Mixed hyperlipidemia Acute pain of right shoulder- Primary Status post reverse total arthroplasty of right shoulder Shoulder stiffness, right documented in this encounter [facility] HealthcareEvaluation note* Diagnosis Benign essential HTN (CMS/HCC)- Primary Gastroesophageal reflux disease without esophagitis Esophageal reflux Stage 3 chronic kidney disease, unspecified whether stage 3a or 3b CKD (HCC) ([facility]) Class 2 severe obesity due to excess calories with serious comorbidity and body mass index (BMI) of 36.0 to 36.9 in adult ([facility]) Menopause Symptomatic menopausal or female climacteric states Encounter for screening mammogram for malignant neoplasm of breast Encounter for subsequent annual wellness visit (AWV) in Medicare patient- Primary Benign essential HTN (CMS/HCC) Gastroesophageal reflux disease without esophagitis Esophageal reflux Stage 3 chronic kidney disease, unspecified whether stage 3a or 3b CKD (HCC) ([facility]) 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, without long-term current use of insulin, unspecified whether stage 3a or 3b CKD (HCC) (CMS/HCC) Acute pain of right shoulder- Primary Class 2 severe obesity due to excess calories with serious comorbidity and body mass index (BMI) of 36.0 to 36.9 in adult ([facility]) Primary osteoarthritis involving multiple joints Preoperative clearance- Primary Unspecified pre-operative examination Type 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 (CMS/HCC) Malignant neoplasm of unspecified ovary (CMS/HCC) Polyneuropathy in diseases classified elsewhere ([facility]) Secondary hyperparathyroidism of renal origin (CMS/HCC) Secondary hyperparathyroidism (of renal origin) Hypertensive chronic kidney disease with stage 1 through stage 4 chronic kidney disease, or unspecified chronic kidney disease (CMS/HCC) Age-related osteoporosis without current pathological fracture ([facility]) Essential (primary) hypertension (CMS/HCC) Unspecified essential hypertension Type 2 diabetes mellitus with diabetic neuropathy, unspecified (CMS/HCC) Secondary hyperparathyroidism (CMS/HCC) Secondary hyperparathyroidism (of renal origin) Acute pain of right shoulder Essential (primary) hypertension ([facility])- Primary Unspecified essential hypertension Fibromyalgia Unspecified myalgia and myositis Polyneuropathy in diseases classified elsewhere ([facility]) ODALYS (generalized anxiety disorder) ([facility]) Generalized anxiety disorder Type 2 diabetes mellitus without complication, without long-term current use of insulin Fibromyalgia- Primary Unspecified myalgia and myositis Polyneuropathy in diseases classified elsewhere ([facility]) Class 2 severe obesity due to excess calories with serious comorbidity and body mass index (BMI) of 36.0 to 36.9 in adult ([facility]) ODALYS (generalized anxiety disorder) ([facility]) Generalized anxiety disorder Essential (primary) hypertension ([facility] [place]) Unspecified essential hypertension Age-related osteoporosis without current pathological fracture ([facility]) Primary osteoarthritis involving multiple joints Class 2 severe obesity due to excess calories with serious comorbidity and body mass index (BMI) of 36.0 to 36.9 in adult ([facility])- Primary Essential (primary) hypertension ([facility] [place]) Unspecified essential hypertension Acute non-recurrent pansinusitis Encounter for screening mammogram for malignant neoplasm of breast Hematoma of frontal scalp, subsequent encounter- Primary Closed head injury, subsequent encounter Class 2 severe obesity due to excess calories with serious comorbidity and body mass index (BMI) of 36.0 to 36.9 in adult ([facility]) Essential (primary) hypertension ([facility]) Unspecified essential hypertension Hematoma of frontal scalp, sequela- Primary Morbid (severe) obesity due to excess calories ([facility]) Essential (primary) hypertension ([facility]) Unspecified essential hypertension Body mass index (BMI) 35.0-35.9, adult Type 2 diabetes mellitus with diabetic neuropathy, unspecified ([facility]) Malignant neoplasm of unspecified ovary ([facility]) Type 2 diabetes mellitus with diabetic cataract ([facility]) Type II or unspecified type diabetes mellitus with ophthalmic manifestations, not stated as uncontrolled Type 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 ([facility]) Chronic kidney disease, stage 3a ([facility]) ([facility]) Hypertensive chronic kidney disease with stage 1 through stage 4 chronic kidney disease, or unspecified chronic kidney disease ([facility]) Class 2 severe obesity due to excess calories with serious comorbidity and body mass index (BMI) of 36.0 to 36.9 in adult ([facility]) Closed head injury, sequela Blurry vision, left eye Other specified visual disturbances Pre-operative clearance- Primary Unspecified pre-operative examination Class 2 severe obesity due to excess calories with serious comorbidity and body mass index (BMI) of 36.0 to 36.9 in adult ([facility]) Body mass index (BMI) 35.0-35.9, adult Closed head injury, sequela Hematoma of frontal scalp, sequela Age-related osteoporosis without current pathological fracture ([facility]) Essential (primary) hypertension ([facility]) Unspecified essential hypertension Gastroesophageal reflux disease without esophagitis Esophageal reflux Type 2 diabetes mellitus without complication, without long-term current use of insulin Blurry vision, left eye Other specified visual disturbances Encounter for subsequent annual wellness visit (AWV) in Medicare patient- Primary Type 2 diabetes mellitus with diabetic neuropathy, without long-term current use of insulin ([facility]) Essential (primary) hypertension ([facility]) Unspecified essential hypertension Hypertensive chronic kidney disease with stage 1 through stage 4 chronic kidney disease, or unspecified chronic kidney disease ([facility]) Gastroesophageal reflux disease without esophagitis Esophageal reflux Age-related osteoporosis without current pathological fracture ([facility]) Fibromyalgia Unspecified myalgia and myositis Class 2 severe obesity due to excess calories with serious comorbidity and body mass index (BMI) of 36.0 to 36.9 in adult ([facility]) Type 2 diabetes mellitus without complication, without long-term current use of insulin Mixed hyperlipidemia ([facility]) Mixed hyperlipidemia Back pain of lumbar region with sciatica- Primary Class 2 severe obesity due to excess calories with serious comorbidity and body mass index (BMI) of 36.0 to 36.9 in adult ([facility]) Essential (primary) hypertension ([facility]) Unspecified essential hypertension Gastro-esophageal reflux disease without esophagitis Esophageal reflux documented in this encounter [facility] HealthcareEvaluation note* Diagnosis Benign essential HTN ([facility])- Primary Gastroesophageal reflux disease without esophagitis Esophageal reflux Stage 3 chronic kidney disease, unspecified whether stage 3a or 3b CKD ([facility]) ([facility]) Class 2 severe obesity due to excess calories with serious comorbidity and body mass index (BMI) of 36.0 to 36.9 in adult ([facility]) Menopause Symptomatic menopausal or female climacteric states Encounter for screening mammogram for malignant neoplasm of breast Encounter for subsequent annual wellness visit (AWV) in Medicare patient- Primary Benign essential HTN ([facility]) Gastroesophageal reflux disease without esophagitis Esophageal reflux Stage 3 chronic kidney disease, unspecified whether stage 3a or 3b CKD (HCC) ([facility]) 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, without long-term current use of insulin, unspecified whether stage 3a or 3b CKD (HCC) ([facility]) Acute pain of right shoulder- Primary Class 2 severe obesity due to excess calories with serious comorbidity and body mass index (BMI) of 36.0 to 36.9 in adult ([facility]) Primary osteoarthritis involving multiple joints Preoperative clearance- Primary Unspecified pre-operative examination Type 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 ([facility]) Malignant neoplasm of unspecified ovary ([facility] Polyneuropathy in diseases classified elsewhere ([facility]) Secondary hyperparathyroidism of renal origin ([facility]) Secondary hyperparathyroidism (of renal origin) Hypertensive chronic kidney disease with stage 1 through stage 4 chronic kidney disease, or unspecified chronic kidney disease ([facility]) Age-related osteoporosis without current pathological fracture ([facility]) Essential (primary) hypertension ([facility]) Unspecified essential hypertension Type 2 diabetes mellitus with diabetic neuropathy, unspecified ([facility]) Secondary hyperparathyroidism ([facility]) Secondary hyperparathyroidism (of renal origin) Acute pain of right shoulder Essential (primary) hypertension ([facility])- Primary Unspecified essential hypertension Fibromyalgia Unspecified myalgia and myositis Polyneuropathy in diseases classified elsewhere ([facility]) ODALYS (generalized anxiety disorder) ([facility]) Generalized anxiety disorder Type 2 diabetes mellitus without complication, without long-term current use of insulin Fibromyalgia- Primary Unspecified myalgia and myositis Polyneuropathy in diseases classified elsewhere ([facility]) Class 2 severe obesity due to excess calories with serious comorbidity and body mass index (BMI) of 36.0 to 36.9 in adult ([facility]) ODALYS (generalized anxiety disorder) ([facility]) Generalized anxiety disorder Essential (primary) hypertension ([facility]) Unspecified essential hypertension Age-related osteoporosis without current pathological fracture ([facility]) Primary osteoarthritis involving multiple joints Class 2 severe obesity due to excess calories with serious comorbidity and body mass index (BMI) of 36.0 to 36.9 in adult ([facility])- Primary Essential (primary) hypertension ([facility]) Unspecified essential hypertension Acute non-recurrent pansinusitis Encounter for screening mammogram for malignant neoplasm of breast Hematoma of frontal scalp, subsequent encounter- Primary Closed head injury, subsequent encounter Class 2 severe obesity due to excess calories with serious comorbidity and body mass index (BMI) of 36.0 to 36.9 in adult ([facility]) Essential (primary) hypertension ([facility]) Unspecified essential hypertension Hematoma of frontal scalp, sequela- Primary Morbid (severe) obesity due to excess calories ([facility]) Essential (primary) hypertension ([facility]) Unspecified essential hypertension Body mass index (BMI) 35.0-35.9, adult Type 2 diabetes mellitus with diabetic neuropathy, unspecified ([facility]) Malignant neoplasm of unspecified ovary ([facility]) Type 2 diabetes mellitus with diabetic cataract ([facility]) Type II or unspecified type diabetes mellitus with ophthalmic manifestations, not stated as uncontrolled Type 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 ([facility]) Chronic kidney disease, stage 3a (HCC) ([facility]) Hypertensive chronic kidney disease with stage 1 through stage 4 chronic kidney disease, or unspecified chronic kidney disease ([facility]) Class 2 severe obesity due to excess calories with serious comorbidity and body mass index (BMI) of 36.0 to 36.9 in adult ([facility]) Closed head injury, sequela Blurry vision, left eye Other specified visual disturbances Pre-operative clearance- Primary Unspecified pre-operative examination Class 2 severe obesity due to excess calories with serious comorbidity and body mass index (BMI) of 36.0 to 36.9 in adult ([facility]) Body mass index (BMI) 35.0-35.9, adult Closed head injury, sequela Hematoma of frontal scalp, sequela Age-related osteoporosis without current pathological fracture ([facility]) Essential (primary) hypertension ([facility]) Unspecified essential hypertension Gastroesophageal reflux disease without esophagitis Esophageal reflux Type 2 diabetes mellitus without complication, without long-term current use of insulin Blurry vision, left eye Other specified visual disturbances Encounter for subsequent annual wellness visit (AWV) in Medicare patient- Primary Type 2 diabetes mellitus with diabetic neuropathy, without long-term current use of insulin ([facility]) Essential (primary) hypertension ([facility]) Unspecified essential hypertension Hypertensive chronic kidney disease with stage 1 through stage 4 chronic kidney disease, or unspecified chronic kidney disease ([facility]) Gastroesophageal reflux disease without esophagitis Esophageal reflux Age-related osteoporosis without current pathological fracture ([facility]) Fibromyalgia Unspecified myalgia and myositis Class 2 severe obesity due to excess calories with serious comorbidity and body mass index (BMI) of 36.0 to 36.9 in adult ([facility]) Type 2 diabetes mellitus without complication, without long-term current use of insulin Mixed hyperlipidemia ([facility]) Mixed hyperlipidemia Back pain of lumbar region with sciatica- Primary Class 2 severe obesity due to excess calories with serious comorbidity and body mass index (BMI) of 36.0 to 36.9 in adult ([facility]) Essential (primary) hypertension ([facility]) Unspecified essential hypertension Gastro-esophageal reflux disease without esophagitis Esophageal reflux Acute pain of right shoulder- Primary Status post reverse total arthroplasty of right shoulder Shoulder stiffness, right documented in this encounter [facility] HealthcareEvaluation note* Diagnosis Benign essential HTN ([facility])- Primary Gastroesophageal reflux disease without esophagitis Esophageal reflux Stage 3 chronic kidney disease, unspecified whether stage 3a or 3b CKD (HCC) ([facility]) Class 2 severe obesity due to excess calories with serious comorbidity and body mass index (BMI) of 36.0 to 36.9 in adult ([facility]) Menopause Symptomatic menopausal or female climacteric states Encounter for screening mammogram for malignant neoplasm of breast Encounter for subsequent annual wellness visit (AWV) in Medicare patient- Primary Benign essential HTN ([facility]) Gastroesophageal reflux disease without esophagitis Esophageal reflux Stage 3 chronic kidney disease, unspecified whether stage 3a or 3b CKD (HCC) ([facility]) 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, without long-term current use of insulin, unspecified whether stage 3a or 3b CKD (HCC) ([facility]) Acute pain of right shoulder- Primary Class 2 severe obesity due to excess calories with serious comorbidity and body mass index (BMI) of 36.0 to 36.9 in adult ([facility]) Primary osteoarthritis involving multiple joints Preoperative clearance- Primary Unspecified pre-operative examination Type 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 ([facility]) Malignant neoplasm of unspecified ovary ([facility]) 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 elsewhere ([facility]) Secondary hyperparathyroidism of renal origin ([facility]) Secondary hyperparathyroidism (of renal origin) Hypertensive chronic kidney disease with stage 1 through stage 4 chronic kidney disease, or unspecified chronic kidney disease ([facility]) Age-related osteoporosis without current pathological fracture ([facility]) Essential (primary) hypertension ([facility]) Unspecified essential hypertension Type 2 diabetes mellitus with diabetic neuropathy, unspecified ([facility]) Secondary hyperparathyroidism ([facility]) Secondary hyperparathyroidism (of renal origin) Acute pain of right shoulder Essential (primary) hypertension ([facility])- Primary Unspecified essential hypertension Fibromyalgia Unspecified myalgia and myositis Polyneuropathy in diseases classified elsewhere ([facility]) ODALYS (generalized anxiety disorder) ([facility]) Generalized anxiety disorder Type 2 diabetes mellitus without complication, without long-term current use of insulin Fibromyalgia- Primary Unspecified myalgia and myositis Polyneuropathy in diseases classified elsewhere ([facility]) Class 2 severe obesity due to excess calories with serious comorbidity and body mass index (BMI) of 36.0 to 36.9 in adult ([facility]) ODALYS (generalized anxiety disorder) ([facility]) Generalized anxiety disorder Essential (primary) hypertension ([facility]) Unspecified essential hypertension Age-related osteoporosis without current pathological fracture ([facility]) Primary osteoarthritis involving multiple joints Class 2 severe obesity due to excess calories with serious comorbidity and body mass index (BMI) of 36.0 to 36.9 in adult ([facility])- Primary Essential (primary) hypertension ([facility]) Unspecified essential hypertension Acute non-recurrent pansinusitis Encounter for screening mammogram for malignant neoplasm of breast Hematoma of frontal scalp, subsequent encounter- Primary Closed head injury, subsequent encounter Class 2 severe obesity due to excess calories with serious comorbidity and body mass index (BMI) of 36.0 to 36.9 in adult ([facility]) Essential (primary) hypertension ([facility]) Unspecified essential hypertension Hematoma of frontal scalp, sequela- Primary Morbid (severe) obesity due to excess calories ([facility]) Essential (primary) hypertension ([facility]) Unspecified essential hypertension Body mass index (BMI) 35.0-35.9, adult Type 2 diabetes mellitus with diabetic neuropathy, unspecified ([facility]) Malignant neoplasm of unspecified ovary ([facility]) Type 2 diabetes mellitus with diabetic cataract ([facility]) Type II or unspecified type diabetes mellitus with ophthalmic manifestations, not stated as uncontrolled Type 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 ([facility]) Chronic kidney disease, stage 3a (HCC) ([facility]) Hypertensive chronic kidney disease with stage 1 through stage 4 chronic kidney disease, or unspecified chronic kidney disease ([facility]) Class 2 severe obesity due to excess calories with serious comorbidity and body mass index (BMI) of 36.0 to 36.9 in adult ([facility]) Closed head injury, sequela Blurry vision, left eye Other specified visual disturbances Pre-operative clearance- Primary Unspecified pre-operative examination Class 2 severe obesity due to excess calories with serious comorbidity and body mass index (BMI) of 36.0 to 36.9 in adult ([facility]) Body mass index (BMI) 35.0-35.9, adult Closed head injury, sequela Hematoma of frontal scalp, sequela Age-related osteoporosis without current pathological fracture ([facility]) Essential (primary) hypertension ([facility]) Unspecified essential hypertension Gastroesophageal reflux disease without esophagitis Esophageal reflux Type 2 diabetes mellitus without complication, without long-term current use of insulin Blurry vision, left eye Other specified visual disturbances Encounter for subsequent annual wellness visit (AWV) in Medicare patient- Primary Type 2 diabetes mellitus with diabetic neuropathy, without long-term current use of insulin ([facility]) Essential (primary) hypertension ([facility]) Unspecified essential hypertension Hypertensive chronic kidney disease with stage 1 through stage 4 chronic kidney disease, or unspecified chronic kidney disease ([facility]) Gastroesophageal reflux disease without esophagitis Esophageal reflux Age-related osteoporosis without current pathological fracture ([facility]) Fibromyalgia Unspecified myalgia and myositis Class 2 severe obesity due to excess calories with serious comorbidity and body mass index (BMI) of 36.0 to 36.9 in adult ([facility]) Type 2 diabetes mellitus without complication, without long-term current use of insulin Mixed hyperlipidemia ([facility]) Mixed hyperlipidemia Back pain of lumbar region with sciatica- Primary Class 2 severe obesity due to excess calories with serious comorbidity and body mass index (BMI) of 36.0 to 36.9 in adult ([facility]) Essential (primary) hypertension ([facility]) Unspecified essential hypertension Gastro-esophageal reflux disease without esophagitis Esophageal reflux Acute pain of right shoulder- Primary Status post reverse total arthroplasty of right shoulder Shoulder stiffness, right documented in this encounter [facility] HealthcareEvaluation note* Diagnosis Benign essential HTN ([facility])- Primary Gastroesophageal reflux disease without esophagitis Esophageal reflux Stage 3 chronic kidney disease, unspecified whether stage 3a or 3b CKD (HCC) ([facility]) Class 2 severe obesity due to excess calories with serious comorbidity and body mass index (BMI) of 36.0 to 36.9 in adult ([facility]) Menopause Symptomatic menopausal or female climacteric states Encounter for screening mammogram for malignant neoplasm of breast Encounter for subsequent annual wellness visit (AWV) in Medicare patient- Primary Benign essential HTN ([facility]) Gastroesophageal reflux disease without esophagitis Esophageal reflux Stage 3 chronic kidney disease, unspecified whether stage 3a or 3b CKD (HCC) ([facility]) 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, without long-term current use of insulin, unspecified whether stage 3a or 3b CKD (HCC) ([facility]) Acute pain of right shoulder- Primary Class 2 severe obesity due to excess calories with serious comorbidity and body mass index (BMI) of 36.0 to 36.9 in adult ([facility]) Primary osteoarthritis involving multiple joints Preoperative clearance- Primary Unspecified pre-operative examination Type 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 ([facility]) Malignant neoplasm of unspecified ovary ([facility]) Polyneuropathy in diseases classified elsewhere ([facility]) Secondary hyperparathyroidism of renal origin ([facility]) Secondary hyperparathyroidism (of renal origin) Hypertensive chronic kidney disease with stage 1 through stage 4 chronic kidney disease, or unspecified chronic kidney disease ([facility]) Age-related osteoporosis without current pathological fracture ([facility]) Essential (primary) hypertension ([facility]) Unspecified essential hypertension Type 2 diabetes mellitus with diabetic neuropathy, unspecified ([facility]) Secondary hyperparathyroidism ([facility]) Secondary hyperparathyroidism (of renal origin) Acute pain of right shoulder Essential (primary) hypertension ([facility])- Primary Unspecified essential hypertension Fibromyalgia Unspecified myalgia and myositis Polyneuropathy in diseases classified elsewhere ([facility]) ODALYS (generalized anxiety disorder) ([facility]) Generalized anxiety disorder Type 2 diabetes mellitus without complication, without long-term current use of insulin Fibromyalgia- Primary Unspecified myalgia and myositis Polyneuropathy in diseases classified elsewhere ([facility]) Class 2 severe obesity due to excess calories with serious comorbidity and body mass index (BMI) of 36.0 to 36.9 in adult ([facility]) ODALYS (generalized anxiety disorder) ([facility]) Generalized anxiety disorder Essential (primary) hypertension ([facility]) Unspecified essential hypertension Age-related osteoporosis without current pathological fracture ([facility]) Primary osteoarthritis involving multiple joints Class 2 severe obesity due to excess calories with serious comorbidity and body mass index (BMI) of 36.0 to 36.9 in adult ([facility])- Primary Essential (primary) hypertension ([facility]) Unspecified essential hypertension Acute non-recurrent pansinusitis Encounter for screening mammogram for malignant neoplasm of breast Hematoma of frontal scalp, subsequent encounter- Primary Closed head injury, subsequent encounter Class 2 severe obesity due to excess calories with serious comorbidity and body mass index (BMI) of 36.0 to 36.9 in adult ([facility]) Essential (primary) hypertension ([facility]) Unspecified essential hypertension Hematoma of frontal scalp, sequela- Primary Morbid (severe) obesity due to excess calories ([facility]) Essential (primary) hypertension ([facility]) Unspecified essential hypertension Body mass index (BMI) 35.0-35.9, adult Type 2 diabetes mellitus with diabetic neuropathy, unspecified ([facility]) Malignant neoplasm of unspecified ovary ([facility]) Type 2 diabetes mellitus with diabetic cataract ([facility]) Type II or unspecified type diabetes mellitus with ophthalmic manifestations, not stated as uncontrolled Type 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 ([facility]) Chronic kidney disease, stage 3a ([facility]) ([facility]) Hypertensive chronic kidney disease with stage 1 through stage 4 chronic kidney disease, or unspecified chronic kidney disease ([facility]) Class 2 severe obesity due to excess calories with serious comorbidity and body mass index (BMI) of 36.0 to 36.9 in adult ([facility]) Closed head injury, sequela Blurry vision, left eye Other specified visual disturbances Pre-operative clearance- Primary Unspecified pre-operative examination Class 2 severe obesity due to excess calories with serious comorbidity and body mass index (BMI) of 36.0 to 36.9 in adult ([facility]) Body mass index (BMI) 35.0-35.9, adult Closed head injury, sequela Hematoma of frontal scalp, sequela Age-related osteoporosis without current pathological fracture ([facility]) Essential (primary) hypertension ([facility]) Unspecified essential hypertension Gastroesophageal reflux disease without esophagitis Esophageal reflux Type 2 diabetes mellitus without complication, without long-term current use of insulin Blurry vision, left eye Other specified visual disturbances Encounter for subsequent annual wellness visit (AWV) in Medicare patient- Primary Type 2 diabetes mellitus with diabetic neuropathy, without long-term current use of insulin ([facility]) Essential (primary) hypertension ([facility]) Unspecified essential hypertension Hypertensive chronic kidney disease with stage 1 through stage 4 chronic kidney disease, or unspecified chronic kidney disease ([facility]) Gastroesophageal reflux disease without esophagitis Esophageal reflux Age-related osteoporosis without current pathological fracture ([facility]) Fibromyalgia Unspecified myalgia and myositis Class 2 severe obesity due to excess calories with serious comorbidity and body mass index (BMI) of 36.0 to 36.9 in adult ([facility]) Type 2 diabetes mellitus without complication, without long-term current use of insulin Mixed hyperlipidemia ([facility]) Mixed hyperlipidemia Back pain of lumbar region with sciatica- Primary Class 2 severe obesity due to excess calories with serious comorbidity and body mass index (BMI) of 36.0 to 36.9 in adult ([facility]) Essential (primary) hypertension ([facility]) Unspecified essential hypertension Gastro-esophageal reflux disease without esophagitis Esophageal reflux Arthropathy, unspecified Unspecified osteoarthritis, unspecified site documented in this encounter [facility] HealthcareEvaluation note* Diagnosis S/P reverse total shoulder arthroplasty, right- Primary documented in this encounter [facility] SystemEvaluation note* Diagnosis Onset Date Resolution Status Admit Date CKD (chronic kidney disease) stage 3, GFR 30-59 ml/min acute June 12, 2024 1:54pm Hypertensive chronic kidney disease with stage 1 through stage 4 chronic ki acute June 12 1:54pm Secondary hyperparathyroidism acute June 12, 2024 1:54pm Type 2 diabetes mellitus wit h diabetic chronic kidney disease acute June 12, 2024 1:54pm Status post reverse arthropl asty of right shoulder noneactive June 12 1:54pm [facility] Work Phone: Evaluation note* Diagnosis Benign essential HTN ([facility])- Primary Gastroesophageal reflux disease without esophagitis Esophageal reflux Stage 3 chronic kidney disease, unspecified whether stage 3a or 3b CKD (HCC) ([facility]) Class 2 severe obesity due to excess calories with serious comorbidity and body mass index (BMI) of 36.0 to 36.9 in adult ([facility]) Menopause Symptomatic menopausal or female climacteric states Encounter for screening mammogram for malignant neoplasm of breast Encounter for subsequent annual wellness visit (AWV) in Medicare patient- Primary Benign essential HTN (CMS/HCC) Gastroesophageal reflux disease without esophagitis Esophageal reflux Stage 3 chronic kidney disease, unspecified whether stage 3a or 3b CKD (HCC) ([facility]) 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, without long-term current use of insulin, unspecified whether stage 3a or 3b CKD (HCC) ([facility]) Acute pain of right shoulder- Primary Class 2 severe obesity due to excess calories with serious comorbidity and body mass index (BMI) of 36.0 to 36.9 in adult ([facility]) Primary osteoarthritis involving multiple joints Preoperative clearance- Primary Unspecified pre-operative examination Type 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 ([facility]) Malignant neoplasm of unspecified ovary ([facility]) Polyneuropathy in diseases classified elsewhere ([facility]) Secondary hyperparathyroidism of renal origin ([facility]) Secondary hyperparathyroidism (of renal origin) Hypertensive chronic kidney disease with stage 1 through stage 4 chronic kidney disease, or unspecified chronic kidney disease ([facility]) Age-related osteoporosis without current pathological fracture ([facility]) Essential (primary) hypertension ([facility]) Unspecified essential hypertension Type 2 diabetes mellitus with diabetic neuropathy, unspecified ([facility]) Secondary hyperparathyroidism ([facility]) Secondary hyperparathyroidism (of renal origin) Acute pain of right shoulder Essential (primary) hypertension ([facility])- Primary Unspecified essential hypertension Fibromyalgia Unspecified myalgia and myositis Polyneuropathy in diseases classified elsewhere ([facility]) ODALYS (generalized anxiety disorder) ([facility]) Generalized anxiety disorder Type 2 diabetes mellitus without complication, without long-term current use of insulin Fibromyalgia- Primary Unspecified myalgia and myositis Polyneuropathy in diseases classified elsewhere ([facility]) Class 2 severe obesity due to excess calories with serious comorbidity and body mass index (BMI) of 36.0 to 36.9 in adult ([facility]) ODALYS (generalized anxiety disorder) ([facility]) Generalized anxiety disorder Essential (primary) hypertension ([facility]) Unspecified essential hypertension Age-related osteoporosis without current pathological fracture ([facility]) Primary osteoarthritis involving multiple joints Class 2 severe obesity due to excess calories with serious comorbidity and body mass index (BMI) of 36.0 to 36.9 in adult ([facility])- Primary Essential (primary) hypertension ([facility]) Unspecified essential hypertension Acute non-recurrent pansinusitis Encounter for screening mammogram for malignant neoplasm of breast Hematoma of frontal scalp, subsequent encounter- Primary Closed head injury, subsequent encounter Class 2 severe obesity due to excess calories with serious comorbidity and body mass index (BMI) of 36.0 to 36.9 in adult ([facility]) Essential (primary) hypertension ([facility]) Unspecified essential hypertension Hematoma of frontal scalp, sequela- Primary Morbid (severe) obesity due to excess calories ([facility]) Essential (primary) hypertension ([facility]) Unspecified essential hypertension Body mass index (BMI) 35.0-35.9, adult Type 2 diabetes mellitus with diabetic neuropathy, unspecified ([facility]) Malignant neoplasm of unspecified ovary ([facility]) Type 2 diabetes mellitus with diabetic cataract ([facility]) Type II or unspecified type diabetes mellitus with ophthalmic manifestations, not stated as uncontrolled Type 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 ([facility]) Chronic kidney disease, stage 3a (HCC) ([facility]) Hypertensive chronic kidney disease with stage 1 through stage 4 chronic kidney disease, or unspecified chronic kidney disease ([facility]) Class 2 severe obesity due to excess calories with serious comorbidity and body mass index (BMI) of 36.0 to 36.9 in adult ([facility]) Closed head injury, sequela Blurry vision, left eye Other specified visual disturbances Pre-operative clearance- Primary Unspecified pre-operative examination Class 2 severe obesity due to excess calories with serious comorbidity and body mass index (BMI) of 36.0 to 36.9 in adult ([facility]) Body mass index (BMI) 35.0-35.9, adult Closed head injury, sequela Hematoma of frontal scalp, sequela Age-related osteoporosis without current pathological fracture ([facility]) Essential (primary) hypertension ([facility]) Unspecified essential hypertension Gastroesophageal reflux disease without esophagitis Esophageal reflux Type 2 diabetes mellitus without complication, without long-term current use of insulin Blurry vision, left eye Other specified visual disturbances Encounter for subsequent annual wellness visit (AWV) in Medicare patient- Primary Type 2 diabetes mellitus with diabetic neuropathy, without long-term current use of insulin ([facility]) Essential (primary) hypertension ([facility]) Unspecified essential hypertension Hypertensive chronic kidney disease with stage 1 through stage 4 chronic kidney disease, or unspecified chronic kidney disease ([facility]) Gastroesophageal reflux disease without esophagitis Esophageal reflux Age-related osteoporosis without current pathological fracture ([facility]) Fibromyalgia Unspecified myalgia and myositis Class 2 severe obesity due to excess calories with serious comorbidity and body mass index (BMI) of 36.0 to 36.9 in adult ([facility]) Type 2 diabetes mellitus without complication, without long-term current use of insulin Mixed hyperlipidemia ([facility]) Mixed hyperlipidemia Back pain of lumbar region with sciatica- Primary Class 2 severe obesity due to excess calories with serious comorbidity and body mass index (BMI) of 36.0 to 36.9 in adult ([facility]) Essential (primary) hypertension ([facility]) Unspecified essential hypertension Gastro-esophageal reflux disease without esophagitis Esophageal reflux ODALYS (generalized anxiety disorder) ([facility])- Primary Generalized anxiety disorder Class 2 severe obesity due to excess calories with serious comorbidity and body mass index (BMI) of 36.0 to 36.9 in adult ([facility]) Back pain of lumbar region with sciatica Age-related osteoporosis without current pathological fracture ([facility]) Mixed hyperlipidemia ([facility]) Mixed hyperlipidemia Fibromyalgia Unspecified myalgia and myositis Polyneuropathy in diseases classified elsewhere ([facility]) documented in this encounter [facility] HealthcareEvaluation note* Diagnosis Benign essential HTN ([facility])- Primary Gastroesophageal reflux disease without esophagitis Esophageal reflux Stage 3 chronic kidney disease, unspecified whether stage 3a or 3b CKD (HCC) ([facility]) Class 2 severe obesity due to excess calories with serious comorbidity and body mass index (BMI) of 36.0 to 36.9 in adult ([facility]) Menopause Symptomatic menopausal or female climacteric states Encounter for screening mammogram for malignant neoplasm of breast Encounter for subsequent annual wellness visit (AWV) in Medicare patient- Primary Benign essential HTN ([facility]) Gastroesophageal reflux disease without esophagitis Esophageal reflux Stage 3 chronic kidney disease, unspecified whether stage 3a or 3b CKD (HCC) ([facility]) 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, without long-term current use of insulin, unspecified whether stage 3a or 3b CKD (HCC) ([facility]) Acute pain of right shoulder- Primary Class 2 severe obesity due to excess calories with serious comorbidity and body mass index (BMI) of 36.0 to 36.9 in adult ([facility]) Primary osteoarthritis involving multiple joints Preoperative clearance- Primary Unspecified pre-operative examination Type 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 ([facility]) Malignant neoplasm of unspecified ovary ([facility]) Polyneuropathy in diseases classified elsewhere ([facility]) Secondary hyperparathyroidism of renal origin ([facility]) Secondary hyperparathyroidism (of renal origin) Hypertensive chronic kidney disease with stage 1 through stage 4 chronic kidney disease, or unspecified chronic kidney disease ([facility]) Age-related osteoporosis without current pathological fracture ([facility]) Essential (primary) hypertension ([facility]) Unspecified essential hypertension Type 2 diabetes mellitus with diabetic neuropathy, unspecified ([facility]) Secondary hyperparathyroidism ([facility]) Secondary hyperparathyroidism (of renal origin) Acute pain of right shoulder Essential (primary) hypertension ([facility])- Primary Unspecified essential hypertension Fibromyalgia Unspecified myalgia and myositis Polyneuropathy in diseases classified elsewhere ([facility]) ODALYS (generalized anxiety disorder) ([facility]) Generalized anxiety disorder Type 2 diabetes mellitus without complication, without long-term current use of insulin Fibromyalgia- Primary Unspecified myalgia and myositis Polyneuropathy in diseases classified elsewhere ([facility]) Class 2 severe obesity due to excess calories with serious comorbidity and body mass index (BMI) of 36.0 to 36.9 in adult ([facility]) ODALYS (generalized anxiety disorder) ([facility]) Generalized anxiety disorder Essential (primary) hypertension ([facility]) Unspecified essential hypertension Age-related osteoporosis without current pathological fracture ([facility]) Primary osteoarthritis involving multiple joints Class 2 severe obesity due to excess calories with serious comorbidity and body mass index (BMI) of 36.0 to 36.9 in adult ([facility])- Primary Essential (primary) hypertension ([facility]) Unspecified essential hypertension Acute non-recurrent pansinusitis Encounter for screening mammogram for malignant neoplasm of breast Hematoma of frontal scalp, subsequent encounter- Primary Closed head injury, subsequent encounter Class 2 severe obesity due to excess calories with serious comorbidity and body mass index (BMI) of 36.0 to 36.9 in adult ([facility]) Essential (primary) hypertension ([facility]) Unspecified essential hypertension Hematoma of frontal scalp, sequela- Primary Morbid (severe) obesity due to excess calories ([facility]) Essential (primary) hypertension ([facility]) Unspecified essential hypertension Body mass index (BMI) 35.0-35.9, adult Type 2 diabetes mellitus with diabetic neuropathy, unspecified ([facility]) Malignant neoplasm of unspecified ovary ([facility]) Type 2 diabetes mellitus with diabetic cataract ([facility]) Type II or unspecified type diabetes mellitus with ophthalmic manifestations, not stated as uncontrolled Type 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 ([facility]) Chronic kidney disease, stage 3a (HCC) ([facility]) Hypertensive chronic kidney disease with stage 1 through stage 4 chronic kidney disease, or unspecified chronic kidney disease ([facility]) Class 2 severe obesity due to excess calories with serious comorbidity and body mass index (BMI) of 36.0 to 36.9 in adult ([facility]) Closed head injury, sequela Blurry vision, left eye Other specified visual disturbances Pre-operative clearance- Primary Unspecified pre-operative examination Class 2 severe obesity due to excess calories with serious comorbidity and body mass index (BMI) of 36.0 to 36.9 in adult ([facility]) Body mass index (BMI) 35.0-35.9, adult Closed head injury, sequela Hematoma of frontal scalp, sequela Age-related osteoporosis without current pathological fracture ([facility]) Essential (primary) hypertension ([facility]) Unspecified essential hypertension Gastroesophageal reflux disease without esophagitis Esophageal reflux Type 2 diabetes mellitus without complication, without long-term current use of insulin Blurry vision, left eye Other specified visual disturbances Encounter for subsequent annual wellness visit (AWV) in Medicare patient- Primary Type 2 diabetes mellitus with diabetic neuropathy, without long-term current use of insulin ([facility]) Essential (primary) hypertension ([facility]) Unspecified essential hypertension Hypertensive chronic kidney disease with stage 1 through stage 4 chronic kidney disease, or unspecified chronic kidney disease ([facility]) Gastroesophageal reflux disease without esophagitis Esophageal reflux Age-related osteoporosis without current pathological fracture ([facility]) Fibromyalgia Unspecified myalgia and myositis Class 2 severe obesity due to excess calories with serious comorbidity and body mass index (BMI) of 36.0 to 36.9 in adult ([facility]) Type 2 diabetes mellitus without complication, without long-term current use of insulin Mixed hyperlipidemia ([facility]) Mixed hyperlipidemia Back pain of lumbar region with sciatica- Primary Class 2 severe obesity due to excess calories with serious comorbidity and body mass index (BMI) of 36.0 to 36.9 in adult ([facility]) Essential (primary) hypertension ([facility]) Unspecified essential hypertension Gastro-esophageal reflux disease without esophagitis Esophageal reflux ODALYS (generalized anxiety disorder) ([facility])- Primary Generalized anxiety disorder Class 2 severe obesity due to excess calories with serious comorbidity and body mass index (BMI) of 36.0 to 36.9 in adult ([facility]) Back pain of lumbar region with sciatica Age-related osteoporosis without current pathological fracture ([facility]) Mixed hyperlipidemia ([facility]) Mixed hyperlipidemia Fibromyalgia Unspecified myalgia and myositis Polyneuropathy in diseases classified elsewhere ([facility]) Dermatophytosis of nail- Primary Dystrophic nail Other specified disease of nail Pain around toenail, right foot Pain around toenail, left foot documented in this encounter [facility] HealthcareEvaluation note* Diagnosis Benign essential HTN- Primary Gastroesophageal reflux disease without esophagitis Esophageal reflux Stage 3 chronic kidney disease, unspecified whether stage 3a or 3b CKD ([facility]) Class 2 severe obesity due to excess calories with serious comorbidity and body mass index (BMI) of 36.0 to 36.9 in adult ([facility]) Menopause Symptomatic menopausal or female climacteric states Encounter for screening mammogram for malignant neoplasm of breast Encounter for subsequent annual wellness visit (AWV) in Medicare patient- Primary Benign essential HTN Gastroesophageal reflux disease without esophagitis Esophageal reflux Stage 3 chronic kidney disease, unspecified whether stage 3a or 3b CKD ([facility]) 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, without long-term current use of insulin, unspecified whether stage 3a or 3b CKD ([facility]) Acute pain of right shoulder- Primary Class 2 severe obesity due to excess calories with serious comorbidity and body mass index (BMI) of 36.0 to 36.9 in adult ([facility]) Primary osteoarthritis involving multiple joints Preoperative clearance- Primary Unspecified pre-operative examination Type 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 (HCC) Malignant neoplasm of unspecified ovary (HCC) Polyneuropathy in diseases classified elsewhere ([facility]) Secondary hyperparathyroidism of renal origin (HCC) Secondary hyperparathyroidism (of renal origin) Hypertensive chronic kidney disease with stage 1 through stage 4 chronic kidney disease, or unspecified chronic kidney disease Age-related osteoporosis without current pathological fracture Essential (primary) hypertension Unspecified essential hypertension Type 2 diabetes mellitus with diabetic neuropathy, unspecified (HCC) Secondary hyperparathyroidism (HCC) Secondary hyperparathyroidism (of renal origin) Acute pain of right shoulder Essential (primary) hypertension- Primary Unspecified essential hypertension Fibromyalgia Unspecified myalgia and myositis Polyneuropathy in diseases classified elsewhere ([facility]) ODALYS (generalized anxiety disorder) Generalized anxiety disorder Type 2 diabetes mellitus without complication, without long-term current use of insulin ([facility]) Fibromyalgia- Primary Unspecified myalgia and myositis Polyneuropathy in diseases classified elsewhere ([facility]) Class 2 severe obesity due to excess calories with serious comorbidity and body mass index (BMI) of 36.0 to 36.9 in adult ([facility]) ODALYS (generalized anxiety disorder) Generalized anxiety disorder Essential (primary) hypertension Unspecified essential hypertension Age-related osteoporosis without current pathological fracture Primary osteoarthritis involving multiple joints Class 2 severe obesity due to excess calories with serious comorbidity and body mass index (BMI) of 36.0 to 36.9 in adult ([facility])- Primary Essential (primary) hypertension Unspecified essential hypertension Acute non-recurrent pansinusitis Encounter for screening mammogram for malignant neoplasm of breast Hematoma of frontal scalp, subsequent encounter- Primary Closed head injury, subsequent encounter Class 2 severe obesity due to excess calories with serious comorbidity and body mass index (BMI) of 36.0 to 36.9 in adult ([facility]) Essential (primary) hypertension Unspecified essential hypertension Hematoma of frontal scalp, sequela- Primary Morbid (severe) obesity due to excess calories ([facility]) Essential (primary) hypertension Unspecified essential hypertension Body mass index (BMI) 35.0-35.9, adult Type 2 diabetes mellitus with diabetic neuropathy, unspecified ([facility]) Malignant neoplasm of unspecified ovary (HCC) Type 2 diabetes mellitus with diabetic cataract ([facility]) Type II or unspecified type diabetes mellitus with ophthalmic manifestations, not stated as uncontrolled Type 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 ([facility]) Chronic kidney disease, stage 3a ([facility]) Hypertensive chronic kidney disease with stage 1 through stage 4 chronic kidney disease, or unspecified chronic kidney disease Class 2 severe obesity due to excess calories with serious comorbidity and body mass index (BMI) of 36.0 to 36.9 in adult ([facility]) Closed head injury, sequela Blurry vision, left eye Other specified visual disturbances Pre-operative clearance- Primary Unspecified pre-operative examination Class 2 severe obesity due to excess calories with serious comorbidity and body mass index (BMI) of 36.0 to 36.9 in adult ([facility]) Body mass index (BMI) 35.0-35.9, adult Closed head injury, sequela Hematoma of frontal scalp, sequela Age-related osteoporosis without current pathological fracture Essential (primary) hypertension Unspecified essential hypertension Gastroesophageal reflux disease without esophagitis Esophageal reflux Type 2 diabetes mellitus without complication, without long-term current use of insulin ([facility]) Blurry vision, left eye Other specified visual disturbances Encounter for subsequent annual wellness visit (AWV) in Medicare patient- Primary Type 2 diabetes mellitus with diabetic neuropathy, without long-term current use of insulin ([facility]) Essential (primary) hypertension Unspecified essential hypertension Hypertensive chronic kidney disease with stage 1 through stage 4 chronic kidney disease, or unspecified chronic kidney disease Gastroesophageal reflux disease without esophagitis Esophageal reflux Age-related osteoporosis without current pathological fracture Fibromyalgia Unspecified myalgia and myositis Class 2 severe obesity due to excess calories with serious comorbidity and body mass index (BMI) of 36.0 to 36.9 in adult ([facility]) Type 2 diabetes mellitus without complication, without long-term current use of insulin ([facility]) Mixed hyperlipidemia Mixed hyperlipidemia Back pain of lumbar region with sciatica- Primary Class 2 severe obesity due to excess calories with serious comorbidity and body mass index (BMI) of 36.0 to 36.9 in adult ([facility]) Essential (primary) hypertension Unspecified essential hypertension Gastro-esophageal reflux disease without esophagitis Esophageal reflux ODALYS (generalized anxiety disorder)- Primary Generalized anxiety disorder Class 2 severe obesity due to excess calories with serious comorbidity and body mass index (BMI) of 36.0 to 36.9 in adult ([facility]) Back pain of lumbar region with sciatica Age-related osteoporosis without current pathological fracture Mixed hyperlipidemia Mixed hyperlipidemia Fibromyalgia Unspecified myalgia and myositis Polyneuropathy in diseases classified elsewhere ([facility]) ODALYS (generalized anxiety disorder)- Primary Generalized anxiety disorder Class 2 severe obesity due to excess calories with serious comorbidity and body mass index (BMI) of 36.0 to 36.9 in adult ([facility]) Fibromyalgia Unspecified myalgia and myositis Polyneuropathy in diseases classified elsewhere ([facility]) documented in this encounter [facility] HealthcareEvaluation note* Diagnosis Benign essential HTN- Primary Gastroesophageal reflux disease without esophagitis Esophageal reflux Stage 3 chronic kidney disease, unspecified whether stage 3a or 3b CKD ([facility]) Class 2 severe obesity due to excess calories with serious comorbidity and body mass index (BMI) of 36.0 to 36.9 in adult ([facility]) Menopause Symptomatic menopausal or female climacteric states Encounter for screening mammogram for malignant neoplasm of breast Encounter for subsequent annual wellness visit (AWV) in Medicare patient- Primary Benign essential HTN Gastroesophageal reflux disease without esophagitis Esophageal reflux Stage 3 chronic kidney disease, unspecified whether stage 3a or 3b CKD ([facility]) 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, without long-term current use of insulin, unspecified whether stage 3a or 3b CKD ([facility]) Acute pain of right shoulder- Primary Class 2 severe obesity due to excess calories with serious comorbidity and body mass index (BMI) of 36.0 to 36.9 in adult ([facility]) Primary osteoarthritis involving multiple joints Preoperative clearance- Primary Unspecified pre-operative examination Type 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 ([facility]) Malignant neoplasm of unspecified ovary ([facility]) Polyneuropathy in diseases classified elsewhere ([facility]) Secondary hyperparathyroidism of renal origin ([facility]) Secondary hyperparathyroidism (of renal origin) Hypertensive chronic kidney disease with stage 1 through stage 4 chronic kidney disease, or unspecified chronic kidney disease Age-related osteoporosis without current pathological fracture Essential (primary) hypertension Unspecified essential hypertension Type 2 diabetes mellitus with diabetic neuropathy, unspecified ([facility]) Secondary hyperparathyroidism (HCC) Secondary hyperparathyroidism (of renal origin) Acute pain of right shoulder Essential (primary) hypertension- Primary Unspecified essential hypertension Fibromyalgia Unspecified myalgia and myositis Polyneuropathy in diseases classified elsewhere ([facility]) ODALYS (generalized anxiety disorder) Generalized anxiety disorder Type 2 diabetes mellitus without complication, without long-term current use of insulin ([facility]) Fibromyalgia- Primary Unspecified myalgia and myositis Polyneuropathy in diseases classified elsewhere ([facility]) Class 2 severe obesity due to excess calories with serious comorbidity and body mass index (BMI) of 36.0 to 36.9 in adult ([facility]) ODALYS (generalized anxiety disorder) Generalized anxiety disorder Essential (primary) hypertension Unspecified essential hypertension Age-related osteoporosis without current pathological fracture Primary osteoarthritis involving multiple joints Class 2 severe obesity due to excess calories with serious comorbidity and body mass index (BMI) of 36.0 to 36.9 in adult ([facility])- Primary Essential (primary) hypertension Unspecified essential hypertension Acute non-recurrent pansinusitis Encounter for screening mammogram for malignant neoplasm of breast Hematoma of frontal scalp, subsequent encounter- Primary Closed head injury, subsequent encounter Class 2 severe obesity due to excess calories with serious comorbidity and body mass index (BMI) of 36.0 to 36.9 in adult ([facility]) Essential (primary) hypertension Unspecified essential hypertension Hematoma of frontal scalp, sequela- Primary Morbid (severe) obesity due to excess calories ([facility]) Essential (primary) hypertension Unspecified essential hypertension Body mass index (BMI) 35.0-35.9, adult Type 2 diabetes mellitus with diabetic neuropathy, unspecified ([facility]) Malignant neoplasm of unspecified ovary ([facility]) Type 2 diabetes mellitus with diabetic cataract ([facility]) Type II or unspecified type diabetes mellitus with ophthalmic manifestations, not stated as uncontrolled Type 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 ([facility]) Chronic kidney disease, stage 3a ([facility]) Hypertensive chronic kidney disease with stage 1 through stage 4 chronic kidney disease, or unspecified chronic kidney disease Class 2 severe obesity due to excess calories with serious comorbidity and body mass index (BMI) of 36.0 to 36.9 in adult ([facility]) Closed head injury, sequela Blurry vision, left eye Other specified visual disturbances Pre-operative clearance- Primary Unspecified pre-operative examination Class 2 severe obesity due to excess calories with serious comorbidity and body mass index (BMI) of 36.0 to 36.9 in adult ([facility]) Body mass index (BMI) 35.0-35.9, adult Closed head injury, sequela Hematoma of frontal scalp, sequela Age-related osteoporosis without current pathological fracture Essential (primary) hypertension Unspecified essential hypertension Gastroesophageal reflux disease without esophagitis Esophageal reflux Type 2 diabetes mellitus without complication, without long-term current use of insulin ([facility]) Blurry vision, left eye Other specified visual disturbances Encounter for subsequent annual wellness visit (AWV) in Medicare patient- Primary Type 2 diabetes mellitus with diabetic neuropathy, without long-term current use of insulin ([facility]) Essential (primary) hypertension Unspecified essential hypertension Hypertensive chronic kidney disease with stage 1 through stage 4 chronic kidney disease, or unspecified chronic kidney disease Gastroesophageal reflux disease without esophagitis Esophageal reflux Age-related osteoporosis without current pathological fracture Fibromyalgia Unspecified myalgia and myositis Class 2 severe obesity due to excess calories with serious comorbidity and body mass index (BMI) of 36.0 to 36.9 in adult ([facility]) Type 2 diabetes mellitus without complication, without long-term current use of insulin ([facility]) Mixed hyperlipidemia Mixed hyperlipidemia Back pain of lumbar region with sciatica- Primary Class 2 severe obesity due to excess calories with serious comorbidity and body mass index (BMI) of 36.0 to 36.9 in adult ([facility]) Essential (primary) hypertension Unspecified essential hypertension Gastro-esophageal reflux disease without esophagitis Esophageal reflux ODALYS (generalized anxiety disorder)- Primary Generalized anxiety disorder Class 2 severe obesity due to excess calories with serious comorbidity and body mass index (BMI) of 36.0 to 36.9 in adult ([facility]) Back pain of lumbar region with sciatica Age-related osteoporosis without current pathological fracture Mixed hyperlipidemia Mixed hyperlipidemia Fibromyalgia Unspecified myalgia and myositis Polyneuropathy in diseases classified elsewhere ([facility]) ODALYS (generalized anxiety disorder)- Primary Generalized anxiety disorder Class 2 severe obesity due to excess calories with serious comorbidity and body mass index (BMI) of 36.0 to 36.9 in adult ([facility]) Fibromyalgia Unspecified myalgia and myositis Polyneuropathy in diseases classified elsewhere ([facility]) Dermatophytosis of nail- Primary Dystrophic nail Other specified disease of nail Pain around toenail, right foot Pain around toenail, left foot documented in this encounter [facility]* Diagnosis S/P reverse total shoulder arthroplasty, right- Primary [facility] general Narrative - Reported* Type Description Date [...] LID TUCK 03/2019 Hospitalization History SEE ABOVE [facility] Other InstructionsNot on filedocumented in this encounter [facility] on filedocumented in this encounter [facility] SystemInstructionsNot on filedocumented in this encounter [facility] SystemInstructionsNot on filedocumented in this encounter [facility] SystemInstructionsNot on filedocumented in this encounter [facility] SystemReason for referral (narrative)No reason for referral information [facility] Work Phone: Reason for visit Narrative* Rehabilitation - Outpatient (Routine) - Authorized Specialty Diagnoses / Procedures Referred By Tyshawn conti Referred To Contact Physical Therapy Diagnoses Status post right rotator cuff repair Procedures GA OFFICE/OUTPATIENT NEW [facility] MDM 60 MINUTES May Pulido, OTR [employer] [address] [place] [address] Phone: tel: fax: Leo Goodwin, PT [address] [place] [address] Phone: tel: fax: Referral ID Status Reason Start Date Expiration Date Visits Requested Visits Authorized [id number] Authorized Specialty Services Required 11/14/2023 05/12/2024 30 30 [facility] HealthcareReason for visit Narrative* Rehabilitation - Outpatient (Routine) - Authorized Specialty Diagnoses / Procedures Referred By Tyshawn conti Referred To Contact Physical Therapy Diagnoses Primary osteoarthritis, right shoulder Primary osteoarthritis, left shoulder s/p total shoulder Procedures GA PHYSICAL THERAPY EVALUATION HIGH COMPLEX 45 MINS Daniel Wolf MD [address] , [address] [address] Phone: tel: fax: Leo Goodwin, PT [address] [place] [address] Phone: tel: fax: Referral ID Status Reason Start Date Expiration Date V isits Requested Visits Authorized [id number] Authorized 04/19/2024 10/16/2024 30 30 [facility] HealthcareReason for visit Narrative* Rehabilitation - Outpatient (Routine) - Authorized Specialty Diagnoses / Procedures Referred By Tyshawn t Referred To Contact Physical Therapy Diagnoses Primary osteoarthritis, right shoulder Primary osteoarthritis, left shoulder s/p total shoulder Procedures GA PHYSICAL THERAPY EVALUATION HIGH COMPLEX 45 MINS Daniel Wolf MD [address] , [facility] [address] [place] [address] Phone: tel: fax: Leo Goodwin, PT [address] [place] [address] Phone: tel: fax: Referral ID Status Reason Start Date Expiration Date V isits Requested Visits Authorized [id number] Authorized 04/19/2024 02/27/2025 30 30 [facility] HealthcareReason for visit Narrative* Rehabilitation - Outpatient (Routine) - Authorized Specialty Diagnoses / Procedures Referred By Contac t Referred To Contact Physical Therapy Diagnoses Primary osteoarthritis, right shoulder Primary osteoarthritis, left shoulder s/p total shoulder Procedures GA PHYSICAL THERAPY EVALUATION HIGH COMPLEX 45 MINS Daniel Wolf MD Phone: tel: fax: Leo Goodwin, PT [address] [place] [address] Phone: tel: fax: Referral ID Status Reason Start Date Expiration Date V isits Requested Visits Authorized [id number] Authorized 04/19/2024 02/27/2025 30 30 [facility] Healthcare Summary Purpose Family History Relationship Condition [...] kidney disease) stage 3, GFR 30-59 ml/min [id number] Hypomagnesemia Iron deficiency Secondary hyperparathyroidism Type 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 Vitamin D deficiency Chief Complaint 6 month f/u / meter RENAL 6 MONTH F/U Reason for Visit BMI 34.0-34.9,adult Dietary counseling and surveillance Hyperlipidemia Hypertension Type 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 CKD (chronic kidney disease) stage 3, GFR 30-59 ml/min [id number] Hypomagnesemia Iron deficiency Secondary hyperparathyroidism Type 2 [...] chronic kidney disease March 06, 2024 2:03pm Chief Complaint Admit Date RENAL 6 MONTH F/U June 12, 2024 1:5 4pm Reason for Visit Admit Date CKD (chronic kidney disease) stage 3, GF R 30-59 ml/min June 12, 2024 1:54pm Hypertensive chronic kidney disease with stage 1 through stage 4 chronic ki June 12, 2024 1:54pm Secondary hyperparathyroidism May 1:54pm Type 2 diabetes mellitus with diabetic c hronic kidney disease June 12, 2024 1:54pm Status post reverse arthroplasty of righ t shoulder June 12, 2024 1:54pm Chief Complaint Admit Date RENAL 6 MONTH F/U June 12, 2024 1:5 4pm 6 month September 04, 2024 1:57p m Reason for Visit Admit Date CKD (chronic kidney disease) stage 3, GF R 30-59 ml/min June 12, 2024 1:54pm Hypertensive chronic kidney disease with stage 1 through stage 4 chronic ki June 12, 2024 1:54pm Hypomagnesemia June 12, 2024 1:5 4pm Iron deficiency June 12, 2024 1:5 4pm Secondary hyperparathyroidism May 1:54pm Type 2 diabetes mellitus with diabetic c hronic kidney disease June 12, 2024 1:54pm Vitamin D deficiency June 12, 2024 1: 54pm Dietary counseling and surveillance September 04, 2024 1:57pm Hyperlipidemia September 04, 2024 1:57p m Hypertension September 04, 2024 1:57p m Obesity, Class II, BMI 35-39.9 September 04, 2024 1:57pm Type 2 diabetes mellitus with diabetic c hronic kidney disease September 04, 2024 1:57pm Chief Complaint Admit Date 6 September 04, 2024 1:57p m ESTABLISHED PATIENT November 06, 2024 1:42pm Reason for Visit Admit Date Dietary counseling and surveillance September 04, 2024 1:57pm Hyperlipidemia September 04, 2024 1:57p m Hypertension September 04, 2024 1:57p m Obesity, Class II, BMI 35-39.9 September 04, 2024 1:57pm Type 2 diabetes mellitus wit h diabetic chronic kidney disease September 04, 2024 1:57pm ODALYS (generalized anxiety disorder) Olivia loya 2024 1:42pm Hypertension November 06, 2024 1:42pm Obesity, Class II, BMI 35-39.9 November 06, 2024 1:42pm Chief Complaint Admit Date 6 September 04, 2024 1:57p m ESTABLISHED PATIENT [...] 04, 2024 1:57pm ODALYS (generalized anxiety disorder) Olivia loya 2024 1:42pm Hypertension November 06, 2024 1:42pm Obesity, Class II, BMI 35-39.9 November 06, 2024 1:42pm Right shoulder pain November 06, 2024 1:42pm Lumbar spinal stenosis November 21 4:25pm Reason for Referral Specialty Diagnoses / Procedures Referred By Tyshawn conti Referred To Contact Physical Therapy Diagnoses Status post right rotator cuff repair Procedures GA OFFICE/OUTPATIENT NEW HIGH MDM 60 MINUTES May Pulido, CHENTE [address] [place] [address] Leo Goodwin, PT [address] [place] [address] Referral ID Status Reason Start Date Expiration Date Visits Requested Visits Authorized [id number] Authorized Specialty Services Required 11/14/2023 05/12/2024 10 10 Additional Source Comments INFORMATION SOURCE (unrecogn ized section and content) DATE CREATED AUTHOR 08/24/2017 [facility] DATE CREATED AUTHOR AUTHOR'S ORGANIZ ATION 06/08/2022 [facility] DATE CREATED AUTHOR AUTHOR'S ORGANIZ ATION 01/23/2024 [facility] DATE CREATED AUTHOR AUTHOR'S ORGANIZ ATION 02/12/2024 [facility] DATE CREATED AUTHOR AUTHOR'S ORGANIZ ATION 02/23/2024 [facility] DATE CREATED AUTHOR AUTHOR'S ORGANIZ ATION 10/18/2024 [facility] EP[facility] DATE CREATED AUTHOR AUTHOR'S ORGANIZ ATION 11/11/2024 [facility] REASON FOR VISIT (unrecogniz ed section and content) Reason Comments Nail care Ashley Pranay KoehlerOlson i s a 77 y.o. female who presents for Nail care. BS 120 A1C 6.0 (03/2023) LV Dr. Bernardino Talavera 04/05/2023 SS: 8.5-9). Specialty Diagnoses / Procedures Referred By Tyshawn conti Referred To Contact Physical Therapy Diagnoses Status post right rotator cuff repair Procedures GA OFFICE/OUTPATIENT NEW HIGH MDM 60 MINUTES May Pulido NP [address] [place] [address] Leo Goodwin, PT [address] [place] [address] Referral ID Status Reason Start Date Expiration Date Visits Requested Visits Authorized [id number] Authorized Specialty Services Required 11/14/2023 05/12/2024 30 30 Reason Comments Follow-up Reason Comments Med Refill Reason Comments Diabetic nail care Ashley Olson i s a 78 y.o. female who presents for DM Foot Care. PCP: Bernardino Talavera LV: 10/04/2023. A1C: 5.5, BS: 103 SS: 8.5-9 Reason Comments Pain Reason Comments Follow-up Reason Comments hematoma Reason Comments Hematoma of frontal scalp, sequela Reason Comments DM Foot Care Ashley Olson i s a 79 y.o. female who presents for DM Foot Care. PCP: Bernardino Talavera LV: 03/19/2024 A1C: 5.5, BS: 128 SS: 8.5-9 Reason Comments Post-op PO Right reverse TSA 04/04/24XR TODAY Reason Comments Medicare Annual Wellness Visit Initial Reason Comments Post-op P/O Right reverse TS A 04/04/24 Reason Comments Post-op PO RIGHT REV TSA 04/04 Reason Comments Back Pain Reason Comments Diabetic nail care Ashley Olson i s a 79 y.o. female who presents for DM Foot Care. PCP: Bernardino Talavera LV: 03/19/2024 A1C: 5.5, BS: 122 SS: 8.5-9 Reason Comments ODALYS Reason Comments DM Foot Care Established patient presents today for diabetic nail care. PCP: Bernardino Talavera LV 08/2024, A1C: 6.2, BS: 133 Reason Comments Pain Right Reverse TSA Care Teams (unrecognized sec tion and content) Team Status: Active Member Role Status Dates Lex Martinez MD Primary Care Provider Active Team Status: Inactive Member Role Status Dates Lex Martinez MD Primary Care Provider Active S tart: June 12, 2024 End: June 12, 2024 Eboni White MD Attending Provider Active Start : June 12, 2024 End: June 12, 2024 Team Status: Inactive Member Role Status Dates Lex Martinez MD Primary Care Provider Active S tart: September 04, 2024 End: September 04, 2024 Bernardino Talavera APRN Attending Provider Active Start: September 04, 2024 End: September 04, 2024 Team Status: Active Member Role Status Dates Lex Martinez MD Primary Care Provider Active S tart: June 05, 2024 Eboni White MD Attending Provider Active Start : June 05, 2024 Resource Center Teacher Relationship Specialty Start Date End Date Lex Martinez MD [address] [place] [address]10[address] PCP - General [facility] Medicine 02/07/23 Dana Tapia NP [address] [place] [address] Nurse Practitioner [facility] 10/11/22 Resource Center Teacher Relationship Specialty Start Date End Date Lex Martinez MD [address] [place] [address]10[address]1002 PCP - [facility] 02/07/23 Dana Tapia NP [address] [place] [address]-67[address]10[address] Nurse Practitioner [facility] 10/11/22 Team Status: Inactive Member Role Status [...] October 04, 2023 End: October 04, 2023 Resource Center Teacher Relationship Specialty Start Date End Date Lex Martinez MD [address] [place] [address]0610[address] PCP - General Family Medicine 02/07/23 Dana Tapia NP [address] [place] [address]-943810[address] Nurse Practitioner Family Medicine 10/11/22 Resource Center Teacher Relationship Specialty Start Date End Date Lex Martinez MD [address] [place] [address]-709010-[address] PCP - General Family Medicine 02/07/23 Dana Tapia NP [address] [place] [address] Nurse Practitioner Family Medicine 10/11/22 Resource Center Teacher Relationship Specialty Start Date End Date Lex Martinez MD [address] [place] [address] PCP - General Family Medicine 02/07/23 Dana Tapia NP [address] [place] [address] Nurse Practitioner Family Medicine 10/11/22 Resource Center Teacher Relationship Specialty Start Date End Date Lex Martinez MD [address] [place] [address] PCP - General Family Medicine 02/07/23 Dana Tapia NP [address] [place] [address] Nurse Practitioner Family Medicine 10/11/22 Resource Center Teacher Relationship Specialty Start Date End Date Lex Martinez MD [address] [place] [address]10[address] PCP - General Family Medicine 02/07/23 Dana Tapia NP [address] [place] [address]-832410[address] Nurse Practitioner Family Medicine 10/11/22 Resource Center Teacher Relationship Specialty Start Date End Date Lex Martinez MD [address] [place] [address] PCP - General Family Medicine 02/07/23 Dana Tapia NP [address] [place] [address] Nurse Practitioner Family Medicine 10/11/22 Resource Center Teacher Relationship Specialty Start Date End Date Lex Martinez MD [address] [place] [address] PCP - General Family Medicine 02/07/23 Dana Tapia NP [address] [place] [address]9410[address] Nurse Practitioner Family Medicine 10/11/22 Resource Center Teacher Relationship Specialty Start Date End Date Lex Martinez MD [address] [place] [address] PCP - General Family Medicine 02/07/23 Dana Tapia NP [address] [place] [address]95610[address] Nurse Practitioner Family Medicine 10/11/22 Resource Center Teacher Relationship Specialty Start Date End Date Lex Martinez MD [address] [place] [address]5410[address] PCP - General Family Medicine 02/07/23 Dana Tapia NP [address] [place] [address]10[address] Nurse Practitioner Family Medicine 10/11/22 Team Status: [...] December 12, 2023 End: December 12, 2023 Resource Center Teacher Relationship Specialty Start Date End Date Lex Martinez MD [address] [place] [address]1110[address] PCP - General Family Medicine 02/07/23 Dana Tapia NP [address] [place] [address] Nurse Practitioner Family Medicine 10/11/22 Resource Center Teacher Relationship Specialty Start Date End Date Lex Martinez MD [address] [place] [address] PCP - General Family Medicine 02/07/23 Dana Tapia NP [address] [place] [address] Nurse Practitioner Family Medicine 10/11/22 Resource Center Teacher Relationship Specialty Start Date End Date Lex Martinez MD [address] [place] [address] PCP - General Family Medicine 02/07/23 Dana Tapia NP [address] [place] [address] Nurse Practitioner Family Medicine 10/11/22 Resource Center Teacher Relationship Specialty Start Date End Date Lex Martinez MD [address] [place] [address] PCP - General Family Medicine 02/07/23 Dana Tapia NP [address] [place] [address] Nurse Practitioner Family Medicine 10/11/22 Resource Center Teacher Relationship Specialty Start Date End Date Lex Martinez MD [address] [place] [address] PCP - General Family Medicine 02/07/23 Dana Tapia NP [address] [place] [address] Nurse Practitioner Family Medicine 10/11/22 Resource Center Teacher Relationship Specialty Start Date End Date Lex Martinez MD [address] [place] [address] PCP - General Family Medicine 02/07/23 Dana Tapia NP [address] [place] [address] Nurse Practitioner Family Medicine 10/11/22 Resource Center Teacher Relationship Specialty Start Date End Date Lex Martinez MD [address] [place] [address]44610[address] PCP - General Family Medicine 02/07/23 Dana Tapia NP [address] [place] [address] Nurse Practitioner Family Medicine 10/11/22 Resource Center Teacher Relationship Specialty Start Date End Date Lex Martinez MD [address] [place] [address]7710[address]1002 PCP - General Family Medicine 02/07/23 Dana Tapia NP [address] [place] [address] Nurse Practitioner Family Medicine 10/11/22 Resource Center Teacher Relationship Specialty Start Date End Date Lex Martinez MD [address] [place] [address] PCP - General Family Medicine 02/07/23 Dana Tapia NP [address] [place] [address]-839110[address] Nurse Practitioner Family Medicine 10/11/22 Resource Center Teacher Relationship Specialty Start Date End Date Lex Martinez MD [address] [place] [address] PCP - General Family Medicine 02/07/23 Dana Tapia NP [address] [place] [address] Nurse Practitioner Family Medicine 10/11/22 Resource Center Teacher Relationship Specialty Start Date End Date Lex Martinez MD [address] [place] [address]24910[address] PCP - General Family Medicine 02/07/23 Dana Tapia NP [address] [place] [address] Nurse Practitioner Family Medicine 10/11/22 Resource Center Teacher Relationship Specialty Start Date End Date Lex Martinez MD [address] [place] [address] PCP - General Family Medicine 02/07/23 Dana Tapia NP [address] [place] [address] Nurse Practitioner Family Medicine 10/11/22 Resource Center Teacher Relationship Specialty Start Date End Date Lex Martinez MD [address] [place] [address] PCP - General Family Medicine 02/07/23 Dana Tapia NP [address] [place] [address] Nurse Practitioner Family Medicine 10/11/22 Resource Center Teacher Relationship Specialty Start Date End Date Lex Martinez MD [address] [place] [address] PCP - General Family Medicine 02/07/23 Dana Tapia NP [address] [place] [address] Nurse Practitioner Family Medicine 10/11/22 Resource Center Teacher Relationship Specialty Start Date End Date Lex Martinez MD [address] [place] [address] PCP - General Family Medicine 02/07/23 Dana Tapia NP [address] [place] [address] Nurse Practitioner Family Medicine 10/11/22 Resource Center Teacher Relationship Specialty Start Date End Date Lex Martinez MD [address] [place] [address] PCP - General Family Medicine 02/07/23 Dana Tapia NP [address] [place] [address] Nurse Practitioner Family Medicine 10/11/22 Resource Center Teacher Relationship Specialty Start Date End Date Lex Martinez MD [address] [place] [address] PCP - General Family Medicine 02/07/23 Dana Tapia NP [address] [place] [address] Nurse Practitioner Family Medicine 10/11/22 Resource Center Teacher Relationship Specialty Start Date End Date Lex Martinez MD [address] [place] [address] PCP - General Family Medicine 02/07/23 Dana Tapia NP [address] [place] [address] Nurse Practitioner Family Medicine 10/11/22 Resource Center Teacher Relationship Specialty Start Date End Date Lex Martinez MD [address] [place] [address] PCP - General Family Medicine 02/07/23 Dana Tapia NP [address] [place] [address] Nurse Practitioner Family Medicine 10/11/22 Resource Center Teacher Relationship Specialty Start Date End Date Lex Martinez MD [address] [place] [address] PCP - General Family Medicine 02/07/23 Dana Tapia NP [address] [place] [address] Nurse Practitioner Family Medicine 10/11/22 Resource Center Teacher Relationship Specialty Start Date End Date Lex Martinez MD [address] [place] [address] PCP - General Family Medicine 02/07/23 Dana Tapia NP [address] [place] [address] Nurse Practitioner Family Medicine 10/11/22 Resource Center Teacher Relationship Specialty Start Date End Date Lex Martinez MD [address] [place] [address]10[address] PCP - General Family Medicine 02/07/23 Daan Tapia NP [address] [place] [address] Nurse Practitioner Family Medicine 10/11/22 Resource Center Teacher Relationship Specialty Start Date End Date Lex Martinez MD [address] [place] [address] PCP - General Family Medicine 02/07/23 Dana Tapia NP [address] [place] [address] Nurse Practitioner Family Medicine 10/11/22 Resource Center Teacher Relationship Specialty Start Date End Date Lex Martinez MD [address] [place] [address] PCP - General Family Medicine 02/07/23 Dana Tapia NP [address] [place] [address] Nurse Practitioner Family Medicine 10/11/22 Resource Center Teacher Relationship Specialty Start Date End Date Lex Martinez MD [address] [place] [address] PCP - General Family Medicine 02/07/23 Dana Tapia NP [address] [place] [address] Nurse Practitioner Family Medicine 10/11/22 Resource Center Teacher Relationship Specialty Start Date End Date Lex Martinez MD [address] [place] [address] PCP - General Family Medicine 02/07/23 Dana Tapia NP [address] [place] [address] Nurse Practitioner Family Medicine 10/11/22 Resource Center Teacher Relationship Specialty Start Date End Date Lex Martinez MD [address] [place] [address] PCP - General Family Medicine 02/07/23 Dana Tapia NP [address] [place] [address] Nurse Practitioner Family Medicine 10/11/22 Resource Center Teacher Relationship Specialty Start Date End Date Lex Martinez MD [address] [place] [address]10[address] PCP - General Family Medicine 02/07/23 Dana Tapia NP [address] [place] [address]10[address] Nurse Practitioner Family Medicine 10/11/22 Team Status: Inactive Member Role Status Dates Lex Martinez MD Primary Care Provider Active S tart: February 10, 2024 End: February 10, 2024 Bernardino Talavera APRN Attending Provider Active Start: February 10, 2024 End: February 10, 2024 Team Status: Inactive Member Role Status Dates Lex Martinez MD Primary Care Provider Active S tart: March 06, 2024 End: March 06, 2024 Bernardino Talavera APRN Attending Provider Active Start: March 06, 2024 End: March 06, 2024 Resource Center Teacher Relationship Specialty Start Date End Date Lex Martinez MD [address] [place] [address]10[address]1002 PCP - General Family Medicine 02/07/23 Dana Tapia NP [address] [place] [address]10[address] Nurse Practitioner Family Medicine 10/11/22 Resource Center Teacher Relationship Specialty Start Date End Date Lex Martinez MD [address] [place] [address]10[address] PCP - General Family Medicine 02/07/23 Dana Tapia NP [address] [place] [address]-1002 Nurse Practitioner Family Medicine 10/11/22 Resource Center Teacher Relationship Specialty Start Date End Date Dana Tapia, LOAN DOCUMENTATION SPECIALIST-COILER PCP - General Nurse Practitioner 04/03/19 Resource Center Teacher Relationship Specialty Start Date End Date Lex Martinez MD [address] [place] [address] PCP - General Family Medicine 02/07/23 Dana Tapia NP [address] [place] [address]-1002 PCP - ACO Reach 04/06/24 Dana Tapia NP [address] [place] [address] Nurse Practitioner Family Medicine 10/11/22 Resource Center Teacher Relationship Specialty Start Date End Date Lex Martinez MD [address] [place] [address] PCP - General Family Medicine 02/07/23 Dana Tapia NP [address] [place] [address] PCP - ACO Reach 04/06/24 Dana Tapia NP [address] [place] [address]-1002 Nurse Practitioner Family Medicine 10/11/22 Resource Center Teacher Relationship Specialty Start Date End Date Dana Tapia, LOAN DOCUMENTATION SPECIALIST-COILER PCP - General Nurse Practitioner 04/03/19 Resource Center Teacher Relationship Specialty Start Date End Date Dana Tapia, LOAN DOCUMENTATION SPECIALIST-COILER PCP - General Nurse Practitioner 04/03/19 Resource Center Teacher Relationship Specialty Start Date End Date Lex Martinez MD [address] [place] [address]7110[address]1002 PCP - General Family Medicine 02/07/23 Dana Tapia NP [address] [place] [address]6710[address]1002 PCP - ACO Reach 04/06/24 Dana Tapia NP [address] [place] [address]9410[address] Nurse Practitioner Family Medicine 10/11/22 Resource Center Teacher Relationship Specialty Start Date End Date Lex Martinez MD [address] [place] [address]1002 PCP - General Family Medicine 02/07/23 Dana Tapia NP [address] [place] [address]-902510[address] PCP - ACO Reach 04/06/24 Dana Tapia NP [address] [place] [address] Nurse Practitioner Family Medicine 10/11/22 Resource Center Teacher Relationship Specialty Start Date End Date Lex Martinez MD [address] [place] [address] PCP - General Family Medicine 02/07/23 Dana Tapia NP [address] [place] [address] PCP - ACO Reach 04/06/24 Dana Tapia NP [address] [place] [address] Nurse Practitioner Family Medicine 10/11/22 Resource Center Teacher Relationship Specialty Start Date End Date Lex Martinez MD [address] [place] [address] PCP - General Family Medicine 02/07/23 Dana Tapia NP [address] [place] [address] PCP - ACO Reach 04/06/24 Dana Tapia NP [address] [place] [address]-1002 Nurse Practitioner Family Medicine 10/11/22 Resource Center Teacher Relationship Specialty Start Date End Date Lex Martinez MD [address] [place] [address]-1002 PCP - General Family Medicine 02/07/23 Dana Tapia NP [address] [place] [address]8810[address]1002 PCP - ACO Reach 04/06/24 Dana Tapia NP [address] [place] [address]-1002 Nurse Practitioner Family Medicine 10/11/22 Resource Center Teacher Relationship Specialty Start Date End Date Lex Martinez MD [address] [place] [address] PCP - General Family Medicine 02/07/23 Dana Tapia NP [address] [place] [address] PCP - ACO Reach 04/06/24 Dana Tapia NP [address] [place] [address] Nurse Practitioner Family Medicine 10/11/22 Resource Center Teacher Relationship Specialty Start Date End Date Lex Martinez MD [address] [place] [address] PCP - General Family Medicine 02/07/23 Dana Tapia NP [address] [place] [address]-1002 PCP - ACO Reach 04/06/24 Dana Tapia NP [address] [place] [address]-1002 Nurse Practitioner Family Medicine 10/11/22 Resource Center Teacher Relationship Specialty Start Date End Date Lex Martinez MD [address] [place] [address]-1002 PCP - General Family Medicine 02/07/23 Dana Tapia NP [address] [place] [address] PCP - ACO Reach 04/06/24 Dana Tapia NP [address] [place] [address]2610[address] Nurse Practitioner Family Medicine 10/11/22 Resource Center Teacher Relationship Specialty Start Date End Date Lex Martinez MD [address] [place] [address]64810[address]1002 PCP - General Family Medicine 02/07/23 Dana Tapia NP [address] [place] [address]-963[address]1002 PCP - ACO Reach 04/06/24 Dana Tapia NP [address] [place] [address] Nurse Practitioner Family Medicine 10/11/22 Resource Center Teacher Relationship Specialty Start Date End Date Lex Martinez MD [address] [place] [address]65910[address]1002 PCP - General Family Medicine 02/07/23 Dana Tapia NP [address] [place] [address]-090810-1002 PCP - ACO Reach 04/06/24 Dana Tapia NP [address] [place] [address]1810[address] Nurse Practitioner Family Medicine 10/11/22 Resource Center Teacher Relationship Specialty Start Date End Date Lex Martinez MD [address] [place] [address] PCP - General Family Medicine 02/07/23 Dana Tapia NP [address] [place] [address]0810[address]1002 PCP - ACO Reach 04/06/24 Dana Tapia NP [address] [place] [address]3810-1002 Nurse Practitioner Family Medicine 10/11/22 Resource Center Teacher Relationship Specialty Start Date End Date Lex Martinez MD [address] [place] [address]-844510[address]1002 PCP - General Family Medicine 02/07/23 Dana Tapia NP [address] [place] [address]-1002 PCP - ACO Reach 04/06/24 Dana Tapia NP [address] [place] [address]-539[address] Nurse Practitioner Family Medicine 10/11/22 Resource Center Teacher Relationship Specialty Start Date End Date Lex Martinez MD [address] [place] [address]-948610-1002 PCP - General Family Medicine 02/07/23 Dana Tapia NP [address] [place] [address]-1002 PCP - ACO Reach 04/06/24 Dana Tapia NP [address] [place] [address]-1002 Nurse Practitioner Family Medicine 10/11/22 Resource Center Teacher Relationship Specialty Start Date End Date Lex Martinez MD [address] [place] [address]8410[address]1002 PCP - General Family Medicine 02/07/23 Dana Tapia NP [address] [place] [address]-192310-1002 PCP - ACO Reach 04/06/24 Dana Tapia NP [address] [place] [address]-1002 Nurse Practitioner Family Medicine 10/11/22 Resource Center Teacher Relationship Specialty Start Date End Date Lex Martinez MD [address] [place] [address]-1002 PCP - General Family Medicine 02/07/23 Dana Tapia NP [address] [place] [address] PCP - ACO Reach 04/06/24 Dana Tapia NP [address] [place] [address] Nurse Practitioner Family Medicine 10/11/22 Resource Center Teacher Relationship Specialty Start Date End Date Lex Martinez MD [address] [place] [address]-1002 PCP - General Family Medicine 02/07/23 Dana Tapia NP [address] [place] [address]-1002 PCP - ACO Reach 04/06/24 Dana Tapia NP [address] [place] [address] Nurse Practitioner Family Medicine 10/11/22 Resource Center Teacher Relationship Specialty Start Date End Date Lex Martinez MD [address] [place] [address]-1002 PCP - General Family Medicine 02/07/23 Dana Tapia NP [address] [place] [address] PCP - ACO Reach 04/06/24 Dana Tapia NP [address] [place] [address] Nurse Practitioner Family Medicine 10/11/22 Resource Center Teacher Relationship Specialty Start Date End Date Dana Tapia, LOAN DOCUMENTATION SPECIALIST-COILER PCP - General Nurse Practitioner 04/03/19 Resource Center Teacher Relationship Specialty Start Date End Date Lex Martinez MD [address] [place] [address] PCP - General Family Medicine 02/07/23 Dana Tapia NP [address] [place] [address]-1002 PCP - ACO Reach 04/06/24 Dana Tapia NP [address] [place] [address] Nurse Practitioner Family Medicine 10/11/22 Resource Center Teacher Relationship Specialty Start Date End Date Lex Martinez MD [address] [place] [address] PCP - General Family Medicine 02/07/23 Dana Tapia NP [address] [place] [address]-1002 PCP - ACO Reach 04/06/24 Dana Tapia NP [address] [place] [address] Nurse Practitioner Family Medicine 10/11/22 Resource Center Teacher Relationship Specialty Start Date End Date Lex Martinez MD [address] [place] [address] PCP - General Family Medicine 02/07/23 Dana Tapia NP [address] [place] [address]-591010-1002 PCP - ACO Reach 04/06/24 Dana Tapia NP [address] [place] [address] Nurse Practitioner Family Medicine 10/11/22 Resource Center Teacher Relationship Specialty Start Date End Date Lex Martinez MD [address] [place] [address] PCP - General Family Medicine 02/07/23 Dana Tapia NP [address] [place] [address]-1002 PCP - ACO Reach 04/06/24 Dana Tapia NP [address] [place] [address]-1002 Nurse Practitioner Family Medicine 10/11/22 Resource Center Teacher Relationship Specialty Start Date End Date Lex Martinez MD [address] [place] [address] PCP - General Family Medicine 02/07/23 Dana Tapia NP [address] [place] [address]-1002 PCP - ACO Reach 04/06/24 Dana Tapia NP [address] [place] [address] Nurse Practitioner Family Medicine 10/11/22 Resource Center Teacher Relationship Specialty Start Date End Date Lex Martinez MD [address] [place] [address]-1002 PCP - General Family Medicine 02/07/23 Dana Tapia NP [address] [place] [address]-1002 PCP - ACO Reach 04/06/24 Dana Tapia NP [address] [place] [address]4210[address]1002 Nurse Practitioner Family Medicine 10/11/22 Resource Center Teacher Relationship Specialty Start Date End Date Lex Martinez MD [address] [place] [address]10[address]1002 PCP - General Family Medicine 02/07/23 Dana Tapia NP [address] [place] [address]1002 PCP - ACO Reach 04/06/24 Dana Tapia NP [address] [place] [address]-526610[address] Nurse Practitioner Family Medicine 10/11/22 Resource Center Teacher Relationship Specialty Start Date End Date Lex Martinez MD [address] [place] [address]1210-1002 PCP - General Family Medicine 02/07/23 Dana Tapia NP [address] [place] [address]-674510-1002 PCP - ACO Reach 04/06/24 Dana Tapia NP [address] [place] [address] Nurse Practitioner Family Medicine 10/11/22 Team Status: Inactive Member Role Status Dates Lex Martinez MD Primary Care Provider Active S tart: November 06, 2024 End: November 06, 2024 Dana Tapia Attending Provider Active Start: November 06, 2024 End: November 06, 2024 Resource Center Teacher Relationship Specialty Start Date End Date Dana Tapia LOAN DOCUMENTATION SPECIALIST-COILER PCP - General Nurse Practitioner 04/03/19 Team Status: Active Member Role Status Dates Dana Tapia NP-C Primary Care Provider Active Team Status: Inactive Member Role Status Dates Lex Martinez MD Primary Care Provider Active S tart: November 06, 2024 End: November 06, 2024 Dana Tapia NP-C Attending Provider Active Start: November 06, 2024 End: November 06, 2024 Team Status: Inactive Member Role Status Dates Dana Tapia NP-Isaac Primary Care Provider Active Start: November 21, 2024 End: November 21, 2024 Dana Tapia NP-C Attending Provider Active Start: November 21, 2024 End: November 21, 2024 Goals (unrecognized section and content) Goals may [...] BE BASED ON THE PRIMARY CLINICAL RECORDS. [facility] [employer] provides no warranty or guarantee of the accuracy or completeness of information in this document.
--- OUTSIDE RECORDS SUMMARY | 2024-11-23 08:23 | XMS_ITS | Encounter Summary ---
Author Organization [facility] Address [address] [place] [address] Care Team Providers Care Rn Lpn Cna Name Role Phone Dana Tapia INDUSTRIAL PSYCHOLOGY TEACHER Unavailable [phone] Lex Choi MD Primary Care Provider [phone] Dana Tapia NP Unavailable [phone] Encounter Details Date Type Department Care Team (Late st Contact Info) Description 02/17/2024 Clinisync Result Encounter [facility] External Department Unsolicited Dana Tapia NP [address] [place] [id number] Social History Tobacco Use Types Packs/Day Years Used Date Smoking Tobacco: Never Passive Smoke Exposure: Never Smokeless Tobacco: Never Alcohol Use Standard Drinks/Week Comments Never 7 (1 standard drink = 0.6 oz pure alcohol) Caffeine intake: 1-2 cups per day tea Humiliation, Afraid, Rape, and Kick questionnair e Answer Date Recorded Within the last year, have y ou been afraid of your partner or ex-partner? No 03/28/2023 Within the last year, have y ou been humiliated or emotionally abused in other ways by your partner or ex-partner? No Within the last year, have y ou been kicked, hit, slapped, or otherwise physically hurt by your partner or ex-partner? No 03/28/2023 Within the last year, have y ou been raped or forced to have any kind of sexual activity by your partner or ex-partner? No 03/28/2023 Social Connection and Isolation Panel [NHANES] A nswer Date Recorded In a typical week, how many times do you talk on the phone with family, friends, or neighbors? Three times a week 03/28/19 How often do you get togethe r with friends or relatives? Three times a week 03/28/2023 How often do you attend chur ch or yazidism services? 1 to 4 times per year 03/28/2023 Do you belong to any clubs o r organizations such as confucianism groups, unions, fraternal or athletic groups, or school groups? Yes 03/28/2023 How often do you attend meet ings of the clubs or organizations you belong to? 1 to 4 times per year 03/28/2023 Are you , , di vorced, , never , or living with a partner? 03/28/2023 AUDIT-C Answer Date Recorded Q1: How often do you have a drink containing alcohol? Never 03/28/2023 Q2: How many drinks containi ng alcohol do you have on a typical day when you are drinking? Patient does not drink Q3: How often do you have si x or more drinks on one occasion? Never 03/28/2023 Overall Financial Resource Strain (CARDIA) Answe r Date Recorded How hard is it for you to pa y for the very basics like food, housing, medical care, and heating? Not hard at all 03/28/2023 PHQ-2 Answer Date Recorded Patient Health Questionnaire-2 Score 0 09/28/2023 [facility] - Occupational Stress Questionnaire Answer Date Recorded Do you feel stress - tense, restless, nervous, or anxious, or unable to sleep at night because your mind is troubled all the time - these days? Only a little 03/28/2023 Exercise Vital Sign Answer Date Recorde d On average, how many days pe r week do you engage in moderate to strenuous exercise (like a brisk walk)? 5 days 03/28/2023 On average, how many minutes do you engage in exercise at this level? 20 min 03/28/2023 Hunger Vital Sign Answer Date Recorded Within the past 12 months, y ou worried that your food would run out before you got the money to buy more. Never true 03/28/19 24 Within the past 12 months, t he food you bought just didn't last and you didn't have money to get more. Never true 03/28/2023 PRAPARE - Transportation Answer Date Re corded In the past 12 months, has l ack of transportation kept you from medical appointments or from getting medications? No 03/01 In the past 12 months, has l ack of transportation kept you from meetings, work, or from getting things needed for daily living? No 03/28/2023 Housing Stability Vital Sign Answer Loy e Recorded In the last 12 months, was t here a time when you were not able to pay the mortgage or rent on time? No 03/28/2023 Number of Places Lived in the Last Year Not on f ile 03/28/2023 In the last 12 months, was t here a time when you did not have a steady place to sleep or slept in a long term (including now)? No 03/28/2023 Comments Unknown Sex and Gender Information Value Date Recorded Sex Assigned at Female 09/20/2023 5:10 PM EDT Legal Sex Female 6:37 PM EDT Gender Identity Female 09/20/2023 5:10 PM EDT Sexual Orientation Not on file documented as of this encounter Plan of Treatment Upcoming Encounters Date Type Department Care Team (Late st Contact Info) Description 01/16/2025 2:45 PM EST Procedure Visit [facility] [address] [place] [phone] Markus Baer DPM [address] [place] [address] documented as of this encounter Procedures Procedure Name Priority Date/Time Associated Diagnosis Comments MM TOMOSYNTHESIS SCREENING BI 02/17/2024 9:36 AM EST documented in this encounter Results * MM TOMOSYNTHESIS SCREENING BI (02/17/2024 9:36 AM EST) Anatomical Region Laterality Modality Other 02/17/2024 9:36 AM EST Narrative 02/17/2024 9:37 [place] [address] Mammography Report Signed Patient: TAMMY SOLORIO MR#: [id number] : 1945 Acct:[id number] Age/Sex: 79 / F ADM Date: 02/17/24 Loc: MAMMO Attending Dr: Dana Tapia NP Ordering Physician: Dana Tapia NP Results: Date of Service: 02/17/24 Follow Up: Procedure(s): MM tomosynthesis screening BI Accession Number(s): [id number] cc: Dana Tapia NP Patient Name: TAMMY SOLORIO MR#: [id number] : 1945 Exam Date: 02/17/2024 Ordering Doctor: LIZETTE Tapia CNP RADIOLOGY REPORT PROCEDURE: MM TOMOSYNTHESIS SCREENING BI COMPARISON: MG MAMM SCREEN 3D RIGOBERTO CAD, 02/05/2022. MM TOMOSYNTHESIS SCREENING BI, 02/15/2023. INDICATIONS: Screening Calculator Name NCI Breast Cancer Risk Assessment Tool 5 Year Breast Cancer Risk 3.80% Lifetime Breast Cancer Risk 7.20% Personal Breast Cancer No Personal Ovarian Cancer Yes, Age 51, Hysterectomy Treatments None Family Cancers Mother with breast cancer at age 63; Sister with uterine cancer at age 23; Brother with liver cancer at age 68. LOCATION: [facility] BREAST COMPOSITION: There are scattered areas of fibroglandular density. FINDINGS: DIAGNOSTIC CATEGORY 1--NEGATIVE. NO CHANGE FROM COMPARISON ASSESSMENT. Scattered benign-appearing calcifications are present. RIGHT BREAST: No significant suspicious finding. LEFT BREAST: No significant suspicious finding. RECOMMENDATIONS: ROUTINE MAMMOGRAM AND CLINICAL EVALUATION IN 12 MONTHS. PLEASE NOTE: A NORMAL MAMMOGRAM DOES NOT EXCLUDE THE POSSIBILITY OF BREAST CANCER. A CLINICALLY SUSPICIOUS PALPABLE LUMP SHOULD BE BIOPSIED. Dictated by: Preston Hancock MD on 02/17/2024 at 09:34 Approved by: Preston Hancock MD on 02/17/2024 at 09:36 Dictated By: rPeston Hancock M.D. Signed By: 02/17/24 0937 DD/ 0936 TD/TT: Agricultural Appraiser: Procedure Note Radiology, Radiologist, MD - 02/17/2024 [place] [address] Mammography Report Signed Patient: TAMMY SOLORIO KMR#: [id number] : 7Acct:[id number] Age/Sex: 79 / FADM Date: 02/17/24 Loc: MAMMO Attending Dr: Dana aTpia INDUSTRIAL PSYCHOLOGY TEACHER Ordering Physician: Dana Tapia NPResults: Date of Service: 02/17/24Follow Up: Procedure(s): MM tomosynthesis screening BI Accession Number(s): [id number] cc: Dana Tapia NP Patient Name: TAMMY SOLORIO MR#: [id number] : 1945 Exam Date: 02/17/2024 Ordering Doctor: LIZETTE Tapia SALVAGE MEND WORKER RADIOLOGY REPORT PROCEDURE: MM TOMOSYNTHESIS SCREENING BI COMPARISON: MG MAMM SCREEN 3D RIGOBERTO CAD, 02/05/2022. MM TOMOSYNTHESIS SCREENING BI, 02/15/2023. INDICATIONS: Screening Calculator Name NCI Breast Cancer Risk Assessment Tool 5 Year Breast Cancer Risk 3.80% Lifetime Breast Cancer Risk 7.20% Personal Breast Cancer No Personal Ovarian Cancer Yes, Age 51, Hysterectomy Treatments None Family Cancers Mother with breast cancer at age 63; Sister withuterine cancer at age 23; Brother with liver cancer at age 68. LOCATION: [facility] BREAST COMPOSITION: There are scattered areas of fibroglandulardensity. FINDINGS: DIAGNOSTIC CATEGORY 1--NEGATIVE. NO CHANGE FROM COMPARISON ASSESSMENT. Scattered benign-appearing calcifications are present. RIGHT BREAST: No significant suspicious finding. LEFT BREAST: No significant suspicious finding. RECOMMENDATIONS: ROUTINE MAMMOGRAM AND CLINICAL EVALUATION IN 12 MONTHS. PLEASE NOTE: A NORMAL MAMMOGRAM DOES NOT EXCLUDE THE POSSIBILITY OFBREAST CANCER. A CLINICALLY SUSPICIOUS PALPABLE LUMP SHOULD BE BIOPSIED. Dictated by: Preston Hancock MD on 02/17/2024 at 09:34 Approved by: Preston Hancock MD on 02/17/2024 at 09:36 Dictated By: Preston Hancock M.D. Signed By:02/17/24 0937 DD/ TD/TT: Agricultural Appraiser: us Dana Tapia NP [facility] Final Result documented in this encounter Visit Diagnoses Not on filedocumented in this encounter Additional Health Concerns Assessment Noted Time PHQ-9 Depression Total Score: 1 03/28/19 24 5:26 PM EST documented as of this encounter Care Teams Rn Lpn Cna Relationship Specialty Start Date End Date Lex Choi MD PCP - General Family Medicine 02/07/23 Dana Tapia NP [address] [place] [address] PCP - ACO Reach 04/06/24 Dana Tapia NP Nurse Practitioner Family Medicine 10/11/22 documented as of this encounter
--- OUTSIDE RECORDS SUMMARY | 2024-11-23 08:23 | XMS_ITS | Encounter Summary ---
Author Organization [employer] Address [id number] [address] [place] [address] Care Team Providers Care Marshmallow Machine Worker Name Role Phone Dana Tapia COMMERCIAL GREEN BUILDING DESIGNER-PAPER SALES MANAGER Primary Care Provider Reason for Visit * Reason Comments Med Change Request Encounter Details Date Type Department Care Team (Late st Contact Info) Description 03/29/2024 Refill [facility] [address] [place] [phone] Edgardo Barnett MD [address] [place] [address] Rotator cuff arthropathy of right shoulder Social History Tobacco Use Types Packs/Day Years Used Date Smoking Tobacco: Never Smokeless Tobacco: Never Alcohol Use Standard Drinks/Week Comments No 0 (1 standard drink = 0.6 oz pur e alcohol) Childcare Answer Date Recorded Childcare Unknown 08/09/2018 Employment Answer Date Recorded Employment Unknown 08/09/2018 Hunger Screening Answer Date Recorded Within the past 12 months we worried whether our food would run out before we got money to buy more. Never True 02/20/2024 Within the past 12 months th e food we bought just didn't last and we didn't have money to get more. Never True 02/20/2024 Purpose - Life Answer Date Recorded Purpose and direction in life Unknown Comments No Sex and Gender Information Value Date Recorded Sex Assigned at Not on file Legal Sex Female 11:22 AM EDT Gender Identity Not on file Sexual Orientation Not on file documented as of this encounter Plan of Treatment Not on file documented as of this encounter Visit Diagnoses Diagnosis Rotator cuff arthropathy of right shoulder documented in this encounter Care Teams Marshmallow Machine Worker Relationship Specialty Start Date End Date Dana Tapia, COMMERCIAL GREEN BUILDING DESIGNER-PAPER SALES MANAGER PCP - General Nurse Practitioner 04/03/19 documented as of this encounter
--- OUTSIDE RECORDS SUMMARY | 2024-11-23 08:23 | XMS_ITS | Encounter Summary ---
Author Organization [facility] Address [address] [place] [address] Care Team Providers Care Health Care Attorney Name Role Phone Dana Tapia QUALITY IMPROVEMENT ANALYST Unavailable [phone] Lex Choi MD Primary Care Provider [phone] Dana Tapia QUALITY IMPROVEMENT ANALYST Unavailable [phone] Encounter Details Date Type Department Care Team (Late st Contact Info) Description 03/27/2023 Abstract [facility] [address] [place] [address] Dana Tapia NP [address] [place] [address] Social History Tobacco Use Types Packs/Day Years Used Date Smoking Tobacco: Never Smokeless Tobacco: Never Alcohol Use Standard Drinks/Week Comments Yes 7 (1 standard drink = 0.6 oz [...] 03/28/2023 How often do you attend chur or church services? 1 to 4 times per year 03/28/2023 Do you belong to any clubs o r organizations such as yazidi groups, unions, fraternal or athletic groups, or [...] Date Recorded Patient Health Questionnaire-2 Score 0 03/28/2023 [facility] - Occupational Stress [...] place to sleep or slept in a snf (including now)? No 03/28/2023 Comments Unknown Sex and Gender Information Value Date Recorded Sex Assigned at Female 09/20/2023 5:10 PM EDT Legal Sex Female 6:37 PM EDT Gender Identity Female 09/20/2023 5:10 PM EDT Sexual Orientation Not on file documented as of this encounter Functional Status * Audit-C Score Answer Date of Assessment Author 0 03/28/2023 5:25 PM Heidy Sprague MA * Question Answer Date of Assessment Author Q1: How often do you have a drink containing alcohol? Never 03/28/2023 5:25 PM Miesha Sprague MA Q2: How many drinks containing alcohol do you have on a typical day when you are drinking? Patient does not drink 03/28/2023 5:25 PM Heidy Sprague MA Q3: How often do you have six or more drinks on one occasion? Never 03/28/2023 5:25 PM Miesha Sprague MA * Over the past 2 weeks, how often have you been bothered by any of the following problems? Question Answer Date of Assessment Author Little interest or pleasure in doing things Not at all 03/28/2023 5:26 PM Miesha Sprague MA Feeling down, depressed, or hopeless Not at all 03/28/2023 5:26 PM Miesha Sprague MA Patient Health Questionnaire-2 Score 0 03/28/2023 5:26 PM Jennifer Sprague MA * Question Answer Date of Assessment Author Trouble falling or staying asleep, or sleeping too much Several days 03/28/2023 5:26 PM Heidy Kilgore MA Feeling tired or having little energy Not at all 03/28/2023 5:26 PM Miesha Sprague MA Poor appetite or overeating Not at all 03/28/2023 5: 26 PM Heidy Sprague MA Feeling bad about yourself - or that you are a failure or have let yourself or your family down Not at all 03/28/2023 5:26 PM Miesha Sprague MA Trouble concentrating on things, such as reading the newspaper or watching television Not at all 03/28/2023 5:26 PM Miesha Sprague MA Moving or speaking so slowly that other people could have noticed? Or the opposite - being so fidgety or restless that you have been moving around a lot more than usual. Not at all 03/28/2023 5:26 PM Miesha Sprague MA Thoughts that you would be better off or hurting yourself in some way Not at all 03/28/2023 5:26 PM Ham Sprague MA Patient Health Questionnaire-9 Score 1 03/28/2023 5:26 PM Jennifer Sprague MA * Geriatric Depression Scale (Short Version) Question Answer Date of Assessment Author Are you basically satisfied with your life? Yes 03/28/2023 5:09 PM Miesha Sprague MA Have you dropped many of you r activities and interests? No 03/28/2023 5:09 PM Heidy Sprague MA Do you feel that your life i s empty? No 03/28/2023 5:09 PM Miesha Sprague MA Do you often get bored? No 03/28/2023 5:09 P M Heidy Sprague MA Are you in good spirits most of the time? Yes 03/28/2023 5:09 PM Miesha Sprague MA Are you afraid that somethin g bad is going to happen to you? No 03/28/2023 5:09 PM Heidy Garcia MA Do you feel happy most of th e time? Yes 03/28/2023 5:09 PM Miesha Sprague MA Do you often feel helpless? No 03/28/2023 5: 09 PM Heidy Sprague MA Do you prefer to stay at [facility], rather than going out and doing new things? No 03/28/2023 5:09 PM Miesha Sprague MA Do you feel you have more problems with memory than most? No 03/28/2023 5:09 PM Heidy Michele MA Do you think it is wonderful to be alive now? Yes 03/28/2023 5:09 PM Miesha Sprague MA Do you feel pretty worthless the way you are now? No 03/28/2023 5:09 PM Miesha Sprague MA Do you feel full of energy? No 03/28/2023 5: 09 PM Heidy Sprague MA Do you feel that your situat ion is hopeless? No 03/28/2023 5:09 PM Miesha Sprague MA Do you think that most peopl e are better off than you are? No 03/28/2023 5:09 PM Heidy Kilgore MA Geriatric Depression Scale (Short Version) Total 1 03/28/2023 5:09 PM Jennifer Sprague MA documented as of this encounter Plan of Treatment Upcoming Encounters Date Type Department Care Team (Late st Contact Info) Description 01/16/2025 2:45 PM EST Procedure Visit [facility] [address] [place] [phone] Markus Baer DPM [address] [place] [address] documented as of this encounter Visit Diagnoses Not on filedocumented in this encounter Care Teams Health Care Attorney Relationship Specialty Start Date End Date Lex Choi MD PCP - General Family Medicine 02/07/23 Dana Tapia NP [address] [facility] [place] [address] PCP - ACO Reach 04/06/24 aDna Tapia NP Nurse Practitioner Family Medicine 10/11/22 documented as of this encounter
--- OUTSIDE RECORDS SUMMARY | 2024-11-23 08:23 | XMS_ITS | Encounter Summary ---
Author Organization [facility] Address [address] [place] [address] Care Team Providers Care Operations Leader Name Role Phone Dana Tapia SALES STRATEGY MANAGER Unavailable [phone] Lex Choi MD Primary Care Provider [phone] Dana Tapia SALES STRATEGY MANAGER Unavailable [phone] Encounter Details Date Type Department Care Team (Late st Contact Info) Description 09/29/2023 Orders Only [facility] [address] [place] [phone] Rj Schilling, DO [address] [place] [address] Social History Tobacco Use Types Packs/Day Years [...] How often do you attend chur or roman catholic services? 1 to 4 times per year 03/28/2023 Do you belong to any clubs o r organizations such as faith groups, unions, fraternal or athletic groups, or [...] Recorded Patient Health Questionnaire-2 Score 0 09/28/2023 [facility] - Occupational [...] place to sleep or slept in a senior care (including now)? No 03/28/2023 Comments Unknown Sex [...] Visit [facility] [address] [facility] [place] [address] Markus Baer DPM [address] [place], [place] [id number] documented as of this encounter Procedures Procedure Name Priority Date/Time Associated Diagnosis Comments ECG 12-LEAD Routine 09/29/2023 6:28 PM EDT documented in this encounter Results * ECG 12 lead (09/29/2023 6:28 PM EDT) us Rj Schilling DO ECG ORDERABLES Final Resu lt documented in this encounter Visit Diagnoses Not on filedocumented in this encounter Additional Health Concerns Assessment Noted Time PHQ-9 Depression Total Score: 1 03/28/19 24 5:26 PM EST documented as of this encounter Care Teams Operations Leader Relationship Specialty Start Date End Date Lex Choi MD PCP - General Family Medicine 02/07/23 Dana Tapia NP [address] [place] [address] PCP - ACO Reach 04/06/24 Dana Tapia NP Nurse Practitioner Family Medicine 10/11/22 documented as of this encounter
--- OUTSIDE RECORDS SUMMARY | 2024-11-23 08:23 | XMS_ITS | Clinical Summary ---
Author Organization [facility] Address [address] [place] [address] Care Team Providers Care Bushing And Broach Operator Name Role Phone Dana Tapia DRILLING INSPECTOR Unavailable [phone] Lex Martinez MD Primary Care Provider [phone] Dana Tapia DRILLING INSPECTOR Unavailable Allergies Active Allergy Reactions Criticality Noted Date Comments Metformin 06/13/2023 Other Reaction(s): g/i s/e Other Unknown 06/13/2023 Semaglutide Diarrhea 06/13/2023 Soy Allergy (Obsolete) Unknown 10/04/2023 Sulfa Antibiotics Hives,Rash Low 10/28/2016 Wound Dressing Adhesive Unknown 09/15/2022 Medications cetirizine (ZyrTEC) 10 MG tablet 1 (one) time each day at the same time Active ferrous sulfate 325 (65 Fe) MG tablet Take 1 tablet by mouth every other day Active Farxiga 5 MG Take 5 mg by mouth Daily Active Multiple Vitamins-Minerals (One Daily For Women 50+ Adv) tablet Active melatonin tablet Take by mouth at bedtime Active magnesium 250 MG tablet 1 (one) time each day at the same time Active latanoprost (Xalatan) 0.005 % ophthalmic solution 07/21/19 2 3 Active Ascorbic Acid (vitamin C) 1000 MG tablet 1 (one) time each day at the same time Active cholecalciferol (Vitamin D-3) 50 MCG (2000 UT) tablet Active Calcium Carbonate-Vitamin D (CALTRATE 600+D PO) Active aspirin 81 MG EC tablet Take 81 mg by mouth Daily Active OneTouch Ultra test strip 1 each by Other route if needed 3 Active diphenhydrAMINE-burt taminophen (Tylenol PM) 25-500 MG per tablet Take 2 tablets by mouth as needed at bedtime 4 Active fish oil-omega-3 fatty acids 1000 MG capsule 4 Active ondansetron ODT (Zofran-ODT) 4 MG disintegrating tablet Take 4 mg by mouth every 8 (eight) hours if needed 4 Active traMADol (Ultram) 50 MG tablet Take 50 mg by mouth every 6 (six) hours if needed 5 Active gabapentin (Neurontin) 100 MG capsuleIndications: Type 2 diabetes mellitus with diabetic neuropathy, unspecified (HCC) Take 1 capsule (100 mg) by mouth Daily 90 capsule 1 5 Active amLODIPine (Norvasc) 5 MG tabletIndications:E ssential (primary) hypertension Take 1 tablet (5 mg) by mouth Daily 90 tablet 1 5 Active losartan (Cozaar) 100 MG tabletIndications:E ssential (primary) hypertension Take 1 tablet (100 mg) by mouth in the morning. 90 tablet 1 5 Active omeprazole (PriLOSEC) [address] capsuleIndications: Gastro-esophageal reflux disease without esophagitis,Esophag eal reflux Take 1 capsule (20 mg) by mouth in the morning. Take before meals. 90 capsule 1 5 Active alendronate (Fosamax) 70 MG tabletIndications:O steoporosis Take 1 tablet (70 mg) by mouth every 7 (seven) days Take in the morning with a full glass of water, on an empty stomach, and do not take anything else by mouth or lie down for the next 30 min. 12 tablet 1 5 Active atorvastatin (Lipitor) 20 MG tabletIndications:M ixed hyperlipidemia Take 1 tablet (20 mg) by mouth at bedtime 90 tablet 1 5 Active DULoxetine (Cymbalta) [address] capsuleIndications: ODALYS (generalized anxiety disorder),Fibromyal nicholas,Polyneuropathy in diseases classified elsewhere (HCC) Take 1 capsule (60 mg) by mouth Daily Do not crush or chew. 90 capsule 1 5 Active Active Problems Problem Noted Date Diagnosed Date Back pain of lumbar region with sciatica 025 Assessment & Plan (07/12/2024 2:17 PM EDT): Last appt ordered PT could not go Going to see chiropractor Assessment & Plan (05/30/2024 3:18 PM EDT): Not going to change NSAID, no muscle relaxer d/t polypharmacy Will order PT Fu in 4-6 weeks Status post reverse total arthroplasty of right shoulder 04/23/2024 Type 2 diabetes mellitus with diabetic cataract 03/05/2024 Type 2 diabetes mellitus wit h diabetic neuropathy, unspecified 03/05/2024 Assessment & Plan (05/07/2024 7:11 AM EDT): Continue with glucose control Takes gabapentin and duloxetine Assessment & Plan (03/05/2024 7:25 AM EST): Continue with glucose control Takes gabapentin and duloxetine Body mass index (BMI) 35.0-35.9, adult 5 Blurry vision, left eye 03/05/2024 Assessment & Plan (03/19/2024 3:18 PM EST): Resolved, did see her eye doctor as well Told she had broken blood vessel behind both eyes and that bleeding would take about a month to resovle Assessment & Plan (03/05/2024 2:57 PM EST): Likely secondary to hematoma size and location No acute findings on eye exam today in office If she would like to reach out to her eye doctor for an exam she could do that as well Hematoma of frontal scalp 02/27/2024 Assessment & Plan (03/19/2024 3:18 PM EST): Continue with icing at night Size is lessening Fu in 6 weeks Assessment & Plan (03/05/2024 2:56 PM EST): See notations about plastics and trauma Does appear to be softening up and thickness is lessening as well Dr martinez exams as well, we did discuss her intermittent blurry vision, this is more towards evening and likely related to size of hematoma and swelling that extends to upper eye lid left Assessment & Plan (02/27/2024 8:37 PM EST): Consider plastics? To releave off pressure from hematoma Continue ice thearpy Closed head injury 02/27/2024 Assessment & Plan (03/19/2024 6:36 AM EST): Neg scans (CT head and cervical spine) Cont ice No acute neurological symptoms at this time Assessment & Plan (03/05/2024 7:28 AM EST): Neg scans (CT head and cervical spine) Cont ice No acute neurological symptoms at this time Assessment & Plan (02/27/2024 8:38 PM EST): Neg scans (CT head and cervical spine) Cont ice No acute neurological symptoms at this time Rotator cuff arthropathy of right shoulder 01/18 ODALYS (generalized anxiety disorder) 11/28/2023 Assessment & Plan (08/22/2024 1:50 PM EDT): Last appt we increased the dose of duloxetine Doing well, no changes in dose Assessment & Plan (07/12/2024 2:18 PM EDT): Increase dose on duloxetine Assessment & Plan (01/11/2024 2:51 PM EST): Not worse with change out to duloxetine Fu in 6 weeks Assessment & Plan (11/28/2023 2:36 PM EDT): Stop with use of sertraline Start duloxetine [...] Please contact the office if these occur. Shoulder stiffness, right 11/24/2023 Malignant neoplasm of unspecified ovary 09/26/19 Assessment & Plan (03/05/2024 7:27 AM EST): Hysterectomy in the past Secondary hyperparathyroidism of renal origin Assessment & Plan (09/28/2023 7:25 AM EDT): Cont with nephrology Type 2 diabetes mellitus wit hout complication, without long-term current use of insulin 06/20/2023 Assessment & Plan (05/07/2024 7:13 AM EDT): Check blood sugars daily, notify if <70 [...] and arb A1c 5.5% 03/06/24 Dyllan Mapus Assessment & Plan (03/19/2024 3:17 PM EST): Check blood sugars daily, notify if <70 [...] and arb A1c 5.5% 03/06/24 Dyllan Mapus Assessment & Plan (11/28/2023 2:36 PM EDT): Continue with Dyllan Mapus Vitamin D deficiency 06/20/2023 Iron deficiency 06/20/2023 Hypomagnesemia 06/20/2023 Acute pain of right shoulder 06/20/2023 Assessment & Plan (06/20/2023 2:23 PM EDT): Suspect bursitis based on HITESH, however rotator cuff pathology cannot be excluded Is already on meloxicam, and has DM so would rather not do steroids Will send her to see Stepemma Offered narcotics, and pt declined Encounter for subsequent [facility] wellness visit (AWV) in Medicare patient 03/28/2023 Assessment & Plan (05/07/2024 7:14 AM EDT): Reviewed Ht/Wt/BMI Recommend eye exam yearly Recommend dental exams twice a year Balance work/leisure activities Exercises is recommended most days of the week (appropriate as chronic conditions allow) Follow up yearly and prn Assessment & Plan (03/28/2023 5:25 PM EST): Reviewed Ht/Wt/BMI Recommend eye exam yearly Recommend dental exams twice a year Balance work/leisure activities Exercises is recommended most days of the week (appropriate as chronic conditions allow) Follow up yearly and prn Age-related osteoporosis wit hout current pathological fracture 02/18/2023 Overview (09/28/2023): DEXA scan: 02/19/23: -2.7 hip, osteoporosis Assessment & Plan (05/07/2024 7:12 AM EDT): Dexa: 02/19/23 Current med: fosamax Assessment & Plan (01/11/2024 7:16 AM EST): Med dose refill UTD on DEXA 02/19 Arthritis 02/07/2023 Fibromyalgia 02/07/2023 Assessment & Plan (07/12/2024 2:17 PM EDT): Increase dose on duloxetine Assessment & Plan (05/07/2024 7:13 AM EDT): Current medications: deangelo and duloxetine Assessment & Plan (01/11/2024 2:51 PM EST): Cont deangelo and duloxetine at current dose Fu in 6 weeks consider does change if needed Assessment & Plan (11/28/2023 2:36 PM EDT): Will see if addition of duloxetine helps Primary osteoarthritis involving multiple joints 02/07/2023 Assessment & Plan (01/11/2024 2:53 PM EST): Continue meloxicam, needs handicapped placard Assessment & Plan (03/28/2023 5:24 PM EST): Predominantly her bilat knees Activity as chronic conditions allow Type 2 diabetes mellitus wit h diabetic chronic kidney disease 02/07/2023 Assessment & Plan (03/05/2024 2:55 PM EST): Follows with nephrology Continue to keep DM and HTN at goal Assessment & Plan (09/28/2023 7:22 AM EDT): Mapus manages DM Cindy manages CKD Assessment & Plan (03/28/2023 5:24 PM EST): Check blood sugars daily, notify if <70 [...] diet low in carbohydrates, and simple sugars. Cont with Mapus for management of diabetes Menopause 02/07/2023 Assessment & Plan (02/07/2023 1:56 PM EST): Check DEXA scan Encounter for screening mamm ogram for malignant neoplasm of breast 02/07/2023 Assessment & Plan (02/07/2023 1:56 PM EST): Time for yearly mammogram Defers BRCA gene testing Hypertensive chronic kidney disease with stage 1 through stage 4 chronic kidney disease, or unspecified chronic kidney disease 02/07/2023 Assessment & Plan (05/07/2024 7:11 AM EDT): Continue with nephrology Recommend adequate bp and DM control as well Avoid nephrotoxic drugs IF possible, if taking close monitoring of risk/benefits Assessment & Plan (03/05/2024 7:27 AM EST): Continue with nephrology Recommend adequate bp and DM control as well Avoid nephrotoxic drugs IF possible, if taking close monitoring of risk/benefits Assessment & Plan (09/28/2023 7:22 AM EDT): Continue with nephrology Assessment & Plan (09/28/2023 7:22 AM EDT): >>ASSESSMENT AND PLAN FOR STAGE 3 CHRONIC KIDNEY DISEASE (HCC) (CMS/HCC) WRITTEN ON 02/07/2023 1:55 PM BY DANA TAPIA NP Stable, cont with dr White Assessment & Plan (09/28/2023 7:22 AM EDT): >>ASSESSMENT AND PLAN FOR STAGE 3 CHRONIC KIDNEY DISEASE (HCC) (CMS/HCC) WRITTEN ON 03/28/2023 5:23 PM BY DANA TAPIA NP Family hx of CKD, follows with dr White Cataract 07/07/2021 Class 2 severe obesity due t o excess calories with serious comorbidity and body mass index (BMI) of 36.0 to 36.9 in adult 07/07/2021 Assessment & Plan (08/22/2024 6:56 AM EDT): Discussed with patient their BMI (actual, verses recommended). We have also discussed lifestyle modifications: attempts to perform physical activity as chronic conditions allow, also to monitor dietary intake: increasing protein/fruits/veggies and lowering carb intake (unless contraindicated). Limit sodas, juices, and sugary drinks Assessment & Plan (07/12/2024 6:49 AM EDT): Discussed with patient their BMI (actual, verses recommended). We have also discussed lifestyle modifications: attempts to perform physical activity as chronic conditions allow, also to monitor dietary intake: increasing protein/fruits/veggies and lowering carb intake (unless contraindicated). Limit sodas, juices, and sugary drinks Assessment & Plan (05/30/2024 7:00 AM EDT): Discussed with patient their BMI (actual, verses recommended). We have also discussed lifestyle modifications: attempts to perform physical activity as chronic conditions allow, also to monitor dietary intake: increasing protein/fruits/veggies and lowering carb intake (unless contraindicated). Limit sodas, juices, and sugary drinks Assessment & Plan (05/07/2024 7:13 AM EDT): Discussed with patient their BMI (actual, verses recommended). We have also discussed lifestyle modifications: attempts to perform physical activity as chronic conditions allow, also to monitor dietary intake: increasing protein/fruits/veggies and lowering carb intake (unless contraindicated). Limit sodas, juices, and sugary drinks Assessment & Plan (03/19/2024 6:36 AM EST): Discussed with patient their BMI (actual, verses recommended). We have also discussed lifestyle modifications: attempts to perform physical activity as chronic conditions allow, also to monitor dietary intake: increasing protein/fruits/veggies and lowering carb intake (unless contraindicated). Limit sodas, juices, and sugary drinks. Assessment & Plan (03/05/2024 7:27 AM EST): Discussed with patient their BMI (actual, verses recommended). We have also discussed lifestyle modifications: attempts to perform physical activity as chronic conditions allow, also to monitor dietary intake: increasing protein/fruits/veggies and lowering carb intake (unless contraindicated). Limit sodas, juices, and sugary drinks. Assessment & Plan (02/27/2024 8:42 PM EST): Discussed with patient their BMI (actual, verses recommended). We have also discussed lifestyle modifications: attempts to perform physical activity as chronic conditions allow, also to monitor dietary intake: increasing protein/fruits/veggies and lowering carb intake (unless contraindicated). Limit sodas, juices, and sugary drinks. Assessment & Plan (02/06/2024 4:23 PM EST): Discussed with patient their BMI (actual, verses recommended). We have also discussed lifestyle modifications: attempts to perform physical activity as chronic conditions allow, also to monitor dietary intake: increasing protein/fruits/veggies and lowering carb intake (unless contraindicated). Limit sodas, juices, and sugary drinks. Also discussed oral medications that can be utilized for weight loss, as well as surgical options for weight loss. Assessment & Plan (01/11/2024 7:15 AM EST): Discussed with patient their BMI (actual, verses recommended). We have also discussed lifestyle modifications: attempts to perform physical activity as chronic conditions allow, also to monitor dietary intake: increasing protein/fruits/veggies and lowering carb intake (unless contraindicated). Limit sodas, juices, and sugary drinks. Also discussed oral medications that can be utilized for weight loss, as well as surgical options for weight loss. Assessment & Plan (02/07/2023 1:55 PM EST): Activity as chronic conditions allow Back pain 07/29/2016 Gastroesophageal reflux disease 05/18/2016 Assessment & Plan (05/07/2024 7:12 AM EDT): Recommendations: freq small meals, nothing to eat or drink at least 2 hours prior to bed, limit caffeine, alcohol, as well as spicy foods Meds to limit or avoid if possible: NSAIDS Elevate HOB if possible Current med: omparzole Close monitor of renal function Assessment & Plan (03/19/2024 3:15 PM EST): Continues to use PPI, w close monitoring of renal function Assessment & Plan (03/28/2023 5:23 PM EST): Continues to use PPI, w close monitoring of renal function Assessment & Plan (02/07/2023 1:55 PM EST): Symptoms are stable, close watch kidneys d/t PPI More tolerable with switch to am Freq small meals Fu in 3 months Hyperlipidemia 05/18/2016 Assessment & Plan (05/07/2024 7:14 AM EDT): On statin therapy Check labs yearly and prn dose changes Essential (primary) hypertension 05/18/2016 Assessment & Plan (05/07/2024 7:11 AM EDT): Please check blood pressure daily and record DASH diet Limit caffeine Take medication as directed Contact office if chest pain, pressure, dizziness, shortness of breath, swelling legs Recommend slow position changes Current meds: losartan, amlodipine and asa Assessment & Plan (03/19/2024 3:15 PM EST): Please check blood pressure daily and record DASH diet Limit caffeine Take medication as directed Contact office if chest pain, pressure, dizziness, shortness of breath, swelling legs Recommend slow position changes Current meds: losartan, amlodipine and asa Assessment & Plan (03/05/2024 7:26 AM EST): Please check blood pressure daily and record DASH diet Limit caffeine Take medication as directed Contact office if chest pain, pressure, dizziness, shortness of breath, swelling legs Recommend slow position changes Current meds: losartan, amlodipine and asa Assessment & Plan (02/27/2024 8:42 PM EST): Stable today Assessment & Plan (02/06/2024 4:23 PM EST): Stable on current meds Assessment & Plan (01/11/2024 2:50 PM EST): Please check blood pressure daily and record DASH diet Limit caffeine Take medication as directed Contact office if chest pain, pressure, dizziness, shortness of breath, swelling legs Recommend slow position changes Assessment & Plan (11/28/2023 2:35 PM EDT): Stable on current med dose, and no changes Gets labs per Nephrology regularly Resolved Problems Problem Noted Date Diagnosed Date Resolved Date Chronic kidney disease, stage 3a 03/05/2024 03/05/2024 Morbid (severe) obesity due to excess calories 03/05/2024 03/05/2024 Acute non-recurrent pansinusitis 02/06/2024 05/30/2024 Assessment & Plan (02/06/2024 4:25 PM EST): Finish atb OTC sinus meds for HBP Fluids, rest, fu if not better Pre-operative clearance 09/28/2023 04/0 03/2024 Assessment & Plan (03/19/2024 3:20 PM EST): All chronic conditions are stable and under control, she is compliant with meds as well No hx of CAD, EKG on file in office from 08/2023 normal No active sxs suggestive of angina Cleared for shoulder surgery Assessment & Plan (09/29/2023 2:54 PM EDT): HTN: stable DM: stable CKD: stable No acute cardiac symptoms noted, had EKG yesterday, will need to review this No prior CAD dz or family hx of this. EKG: no changes from 2013 when compared to 09/27/23 Cleared for surgery Polyneuropathy in diseases c lassified elsewhere 09/26/2023 03/05/2024 Assessment & Plan (01/11/2024 2:50 PM EST): Continue with deangelo and duloxetine Assessment & Plan (11/28/2023 2:34 PM EDT): Continue deangelo at 100mg daily Will add duloxetine to see if this helps as well Assessment & Plan (09/28/2023 7:20 AM EDT): Continue to monitor and need of tight glycemic control Secondary hyperparathyroidism 06/20/2023 09/28/2023 Benign essential HTN 02/07/2023 024 Assessment & Plan (03/28/2023 5:22 PM EST): Stable at this time, no changes to meds Assessment & Plan (02/07/2023 1:54 PM EST): Stable, no changes in meds Cont current doses Fu with Nephrology Fu in 3 months Polyneuropathy associated wi th underlying disease 02/07/2023 09/28/2023 Ovarian cancer 02/28/1994 09/28/2023 Encounters Date Type Department Care Team Description 10/16/2024 2:15 PM EDT Procedure Visit [facility] [address] [place] [address] Markus Baer DPM Dermatophytosis of nail (Primary Dx); Dystrophic nail; Pain around toenail, right foot; Pain around toenail, left foot 10/16/2024 Bamboo flowsheet [facility] [address] [place] [address] Markus Baer DPM 10/16/2024 Travel 10/15/2024 Travel from Last 3 Months Immunizations Immunization Administration Dates Next Due Influenza, High Dose Seasona l, Preservative Free 12/30/2018,11/17/2017,12/07/2016 Influenza, High-dose Seasona l, Quadrivalent, Preservative Free 12/04/2022,12/06/2021,11/30/2020 Influenza, seasonal, injecta ble, preservative free 01/27/2016,12/03/2014,11/23/2013 Influenza, trivalent, adjuvanted 11/22/2023 Pneumococcal Conjugate PCV 13 01/27/2016 Pneumococcal Polysaccharide PPSV23 04/14/2012 RSV, recombinant, protein sauer bunit RSVpreF, adjuvant reconstitu, 120mcg/0.5mL, PF (Arexvy) 12/23/2023 Unknown outside immunization 11/12/2019 Zoster, Recombinant 03/19/2022,11/10/2021 Family History Medical History Relation Name Comments Cancer Brother Liver cancer Diabetes Brother Diabetes Father Heart disease Father Hypertension Father Cancer Mother breast cancer Diabetes Mother Heart disease Mother Hyperlipidemia Mother Hypertension Mother Kidney disease Mother Osteoporosis Mother Cancer Sister cervical Relation Name Status Comments Brother Father Mother Other spouse Sister Social History Tobacco Use Types Packs/Day Years Used Date Smoking Tobacco: Never Passive Smoke Exposure: Never Smokeless Tobacco: Never Tobacco Cessation:Counseling Given: Not Answered Alcohol Use Standard Drinks/Week Comments Never 7 [...] often do you attend chur ch or synagogue services? 1 to 4 times per year 03/28/2023 Do you belong to any clubs o r organizations such as sikh groups, unions, fraternal or athletic groups, or [...] Date Recorded Patient Health Questionnaire-2 Score 0 05/07/2024 [facility] - [...] place to sleep or slept in a group home (including now)? No 03/28/2023 Comments Unknown Sex and Gender Information Value Date Recorded Sex Assigned at Female 09/20/2023 5:10 PM EDT Legal Sex Female 6:37 PM EDT Gender Identity Female 09/20/2023 5:10 PM EDT Sexual Orientation Not on file Last Filed Vital Signs Vital Sign Reading Time Taken Comments Blood Pressure 140/84 08/22/2024 1:23 PM EDT Pulse 90 08/22/2024 1:23 PM EDT Temperature 36.6 C (97.8 F) 08/22/2024 1:23 PM EDT Respiratory Rate 18 08/22/2024 1:23 PM EDT Oxygen Saturation 97% 08/22/2024 1:23 PM EDT Inhaled Oxygen Concentration - - Weight 96.2 kg (212 lb) 10/16/2024 2:22 PM EDT Height 160.7 cm (5' 3.25 ) 10/16/2024 2:22 PM ED T Body Mass Index 37.26 10/16/2024 2:22 PM EDT Plan of Treatment Upcoming Encounters Date Type Department Care Team (Late st Contact Info) Description 01/16/2025 2:45 PM EST Procedure Visit [facility] [address] [place] [id number] Markus Baer, DENIA [address] [place] [address] Health Maintenance Due Date Last Done Comments Influenza Vaccine (#1) 2024 4, 12/04/2022, 12/06/2021, Additional history exists Diabetes: Retinopathy Screening 12/10/2024 3, 01/10/2018 Diabetes: Hemoglobin A1C 03/07/2025 025, 03/06/2024, 10/04/2023, Additional history exists Medicare Annual Wellness (AWV) 05/07/2025 0 05/07/2024, 03/28/2023, 03/28/2023 Diabetes: Urine Protein Screening 06/05/2025 06/05/2024, 06/07/2023, 01/05/2018 Pneumococcal Vaccine: 65+ Years Completed 6, 04/14/2012 Colonoscopy Discontinued 02/18/2022, 12/24/2016 Colorectal Cancer Screening Discontinued CT Colonography Discontinued FIT-DNA Discontinued FIT Discontinued FOBT Discontinued Sigmoidoscopy Discontinued Procedures Procedure Name Priority Date/Time Associated Diagnosis Comments COLOR FUNDUS PHOTOGRAPHY - OU - BOTH EYES Routine 01/10/2018 12:00 PM EST MICROALBUMIN / CREATININE URINE RATIO Routine 01/05/2018 HEMOGLOBIN A1C Routine 01/05/2018 COLONOSCOPY Routine 12/24/2016 12:00 PM EDT from Last 3 Months or Most Recently Relevant to Health Maintenance Results * Color Fundus Photography - OU - Both Eyes (01/10/2018 12:00 PM EST) Anatomical Region Laterality Modality Head Fundus Photograp hy 01/10/2018 12:0 0 PM EST Narrative 01/10/2018 12:00 PM EST PERFORMED AT [facility] LOCATION:[id number] no retinopathy Procedure Note CONVERSION, GENERIC - 07/14/2022 PERFORMED AT [facility] LOCATION:[id number] no retinopathy us Isaura Lynch MD OPHTH PHOTOGRAPHY Final Result * Microalbumin / creatinine urine ratio (01/05/2018) 2176 56 20 - 320 [facility] 3779 0.5 NOT ESTABLISHED [facility] 4064 8.9 0.0 - 29.9 [facility] Comment: THE ADA (DIABETES CARE 26:S94-S98, 2003) DEFINES ABNORMALITIES IN ALBUMIN EXCRETION FOLLOWS: CATEGORY RESULT (MCG/MG CREATININE) -------- NORMAL <30 MICROALBUMINURIA 30 - 299 CLINICAL ALBUMINURIA > OR = 300 THE ADA RECOMMENDS THAT AT LEAST TWO OF THREE SPECIMENS COLLECTED WITHIN A 3-6 MONTH PERIOD BE ABNORMAL BEFORE CONSIDERING A PATIENT TO BE WITHIN A DIAGNOSTICS CATEGORY. 01/05/2018 us Sharla Stoner DRILLING INSPECTOR LAB URINE ORDERABLES Fi nal Result [facility] * (ABNORMAL) Hemoglobin A1c (01/05/2018) ANGIOTENSIN 1 CONV 6.6(H) 4.0 - 6.0 [facility] ESTIM. AVG GLU (EAG) 142.72 [facility] 01/05/2018 Sharla Stoner DRILLING INSPECTOR LAB BLOOD ORDERABLES Fi nal Result [facility] * Colonoscopy (12/24/2016 12:00 PM EDT) Anatomical Region Laterality Modality Endoscopy 12/24/2016 12:0 0 PM EDT Narrative 12/24/2016 12:00 PM EDT PERFORMED AT [facility] LOCATION:[id number] Normal Colonoscopy Procedure Note CONVERSION, GENERIC - 07/15/2022 PERFORMED AT [facility] LOCATION:[id number] Normal Colonoscopy Ashley Harris ENDOSCOPY PROCEDURE ORDERAB LES Final Result from Last 3 Months or Most Recently Relevant to Health Maintenance Insurance MEDICARE [facility] Care Teams Bushing And Broach Operator Relationship Specialty Start Date End Date Lex Martinez MD PCP - General Family Medicine 02/07/23 Dana Tapia NP [address] [place] [address] PCP - ACO Reach 04/06/24 Dana Tapia NP Nurse Practitioner Family Medicine 10/11/22
--- OUTSIDE RECORDS SUMMARY | 2024-11-23 08:23 | XMS_ITS | Encounter Summary ---
Author Organization [facility] Address [address] [place] [address] Care Team Providers Care Cold Food Packer Name Role Phone Dana Tapia CAR TRIMMER Unavailable [phone] Lex Choi MD Primary Care Provider [phone] Dana Tapia CAR TRIMMER Unavailable [phone] Encounter Details Date Type Department Care Team (Late st Contact Info) Description 02/18/2023 Clinisync Result Encounter [facility] External Department Unsolicited Dana Tapia NP [address] [place] [address] Social History Tobacco Use Types Packs/Day Years Used Date Smoking Tobacco: Never Smokeless Tobacco: Never Alcohol Use Standard Drinks/Week Comments Yes 7 (1 standard drink = 0.6 oz pure alcohol) Caffeine intake: 1-2 cups per day tea Comments Unknown Sex and Gender Information Value Date Recorded Sex Assigned at Female 09/20/2023 5:10 PM EDT Legal Sex Female 6:37 PM EDT Gender Identity Female 09/20/2023 5:10 PM EDT Sexual Orientation Not on file documented as of this encounter Plan of Treatment Upcoming Encounters Date Type Department Care Team (Late st Contact Info) Description 01/16/2025 2:45 PM EST Procedure Visit [facility] [address] [place] [address] Markus Baer DPM [address] [place] [address] documented as of this encounter Procedures Procedure Name Priority Date/Time Associated Diagnosis Comments XR DEXA AXIAL SKELETON 02/18/2023 11:23 AM EST documented in this encounter Results * XR DEXA AXIAL SKELETON (02/18/2023 11:23 AM EST) Anatomical Region Laterality Modality Other 02/18/2023 11:2 3 AM EST Narrative 02/18/2023 11:26 AM EST [address] [address] XRay Report Signed Patient: TAMMY SOLORIO MR#: [id number] : 1945 Acct:[id number] Age/Sex: 78 / F ADM Date: 02/18/23 Loc: RAD Attending Dr: Dana Tapia NP Ordering Physician: Dana Tapia NP Date of Service: 02/18/23 Procedure(s): XR DEXA axial skeleton Accession Number(s): [id number] cc: Dana Tapia NP [address] [address] Patient Name: TAMMY SOLORIO MRN: [id number] date: 1945 Sex: F Assigned Patient Location: [facility] Current Patient Location: [facility] Accession/Order Number: [id number] Exam Date: 02/18/2023 10:42 Report Date: 02/18/2023 11:23 At the request of: DANA TAPIA Procedure: XR DEXA axial skeleton EXAMINATION: XR DEXA axial skeleton HISTORY: Stage 3 Chronic Kidney Disease N18.30 COMPARISON: No relevant comparison available. TECHNIQUE: Dual-energy X-ray absorptiometry (DXA) was performed. FINDINGS: SPINE ANALYSIS: Average bone mineral density is 1.046 g/cm2. T-score (standard deviation relative to young adult mean): -1.1 . HIP ANALYSIS: Lowest bone mineral density is within the left femoral trochanter, 0.542 g/cm2. T-score (standard deviation relative to young adult mean): -2.7 . XR/XR DEXA axial skeleton IMPRESSION: World [employer] Organization Classification: Osteoporosis - High Fracture Risk Electronically authenticated by: MARKUS POWERS Date: 02/18/2023 11:23 Dictated By: Markus Powers M.D. Signed By: 02/18/23 1126 DD/ 112 TD/TT: Scene Painter: Procedure Note Radiology, Radiologist, MD - 02/18/2023 [place] [address] XRay Report Signed Patient: TAMMY SOLORIO KMR#: [id number] : 1945cct:[id number] Age/Sex: 78 / FADM Date: 02/18/23 Loc: RAD Attending Dr: Dana Tapia NP Ordering Physician: Dana Tapia NP Date of Service: 02/18/23 Procedure(s): XR DEXA axial skeleton Accession Number(s): [id number] cc: Dana Tapia NP [place] [address] Patient Name: TAMMY SOLORIO MRN: [facility]:[id number] date: 1945 Sex: F Assigned Patient Location: [facility] Current Patient Location: [facility] Accession/Order Number: [id number] Exam Date: 02/18/2023 10:42 Report Date: 02/18/2023 11:23 At the request of: DANA TAPIA Procedure: XR DEXA axial skeleton EXAMINATION: XR DEXA axial skeleton HISTORY: Stage 3 Chronic Kidney Disease N18.30 COMPARISON: No relevant comparison available. TECHNIQUE: Dual-energy X-ray absorptiometry (DXA) was performed. FINDINGS: SPINE ANALYSIS: Average bone mineral density is 1.046 g/cm2. T-score (standard deviation relative to young adult mean): -1.1 . HIP ANALYSIS: Lowest bone mineral density is within the left femoral trochanter, 0.542 g/cm2. T-score (standard deviation relative to young adult mean): -2.7 . XR/XR DEXA axial skeleton IMPRESSION: World [employer] Organization Classification: Osteoporosis - High Fracture Risk Electronically authenticated by: MARKUS POWERS Date: 02/18/2023 11:23 Dictated By: Markus Powers M.D. Signed By:02/18/23 1126 DD/ 1123 TD/TT: Scene Painter: us Dana Tapia NP [facility] Final Result documented in this encounter Visit Diagnoses Not on filedocumented in this encounter Care Teams Cold Food Packer Relationship Specialty Start Date End Date Lex Choi MD PCP - General Family Medicine 02/07/23 Dana Tapia NP [address] [place] [address] PCP - ACO Reach 04/06/24 Dana Tapia NP Nurse Practitioner Family Medicine 10/11/22 documented as of this encounter
--- OUTSIDE RECORDS SUMMARY | 2024-11-23 08:23 | XMS_ITS | Encounter Summary ---
Author Organization [facility] Address [address] [place] [address] Care Team Providers Care Rn Urgent Care Name Role Phone Dana Tapia CUSTOMER PROJECT MANAGER Unavailable [phone] Lex Choi MD Primary Care Provider [phone] Dana Tapia CUSTOMER PROJECT MANAGER Unavailable [phone] Encounter Details Date Type Department Care Team (Late st Contact Info) Description 02/16/2023 Clinisync Result Encounter [facility] External Department Unsolicited Dana Tapia NP [address] [place] [address] Social History Tobacco Use Types Packs/Day Years [...] [facility] [address] [place] [address] Markus Baer DPM [address] [place] [address] documented as of this encounter Procedures Procedure Name Priority Date/Time Associated Diagnosis Comments MM TOMOSYNTHESIS SCREENING BI 02/16/2023 9:36 AM EST documented in this encounter Results * MM TOMOSYNTHESIS SCREENING BI (02/16/2023 9:36 AM EST) Anatomical Region Laterality Modality Other 02/16/2023 9:36 AM EST Narrative 02/16/2023 9:37 AM EST The [address] [address] Mammography Report Signed Patient: TAMMY SOLORIO MR#: [id number] : 1945 Acct:[id number] Age/Sex: 78 / F ADM Date: 02/15/23 Loc: MAMMO Attending Dr: Dana Tapia NP Ordering Physician: Dana Tapia NP Results: Date of Service: 02/15/23 Follow Up: Procedure(s): MM tomosynthesis screening BI Accession Number(s): [id number] cc: Dana Tapia NP Patient Name: TAMMY SOLORIO MR#: [id number] : 1945 Exam Date: 02/15/2023 Ordering Doctor: LIZETTE Tapia CNP RADIOLOGY REPORT PROCEDURE: MM TOMOSYNTHESIS SCREENING BI COMPARISON: MG MAMM SCREEN 3D RIGOBERTO CAD, 02/02/2021. MG MAMM SCREEN 3D RIGOBERTO CAD, 02/05/2022. INDICATIONS: screening Z12.31 Calculator Name NCI Breast Cancer Risk Assessment Tool 5 Year Breast Cancer Risk 3.90% Lifetime Breast Cancer Risk 7.80% Personal Breast Cancer No Personal Ovarian Cancer Yes, Age 51, Hysterectomy Treatments None Family Cancers Mother with breast cancer at age 63; Sister with uterine cancer at age 23; Brother with liver cancer at age 68. LOCATION: The [facility] BREAST COMPOSITION: Scattered areas fibroglandular density. FINDINGS: [...] BIOPSIED. Dictated by: Preston Hancock MD on 02/16/2023 at 09:30 Approved by: Preston Hancock MD on 02/16/2023 at 09:35 Dictated By: Preston Hancock M.D. Signed By: 02/16/2337 DD/ 5 TD/TT: Frog Catcher: Procedure Note Radiology, Radiologist, MD - 02/16/2023 [place] [address] Mammography Report Signed Patient: TAMMY SOLORIO KMR#: [id number] : 1945cct:[id number] Age/Sex: 78 / FADM Date: 02/15/23 Loc: MAMMO Attending Dr: Dana Tapia NP Ordering Physician: Dana Tapia NPResults: Date of Service: 02/15/23Follow Up: Procedure(s): MM tomosynthesis screening BI Accession Number(s): [id number] cc: Dana Tapia NP Patient Name: TAMMY SOLORIO MR#: [id number] : 1945 Exam Date: 02/15/2023 Ordering Doctor: LIZETTE Tapia REACTOR OPERATOR RADIOLOGY REPORT PROCEDURE: MM TOMOSYNTHESIS SCREENING BI COMPARISON: MG MAMM SCREEN 3D RIGOBERTO CAD, 02/02/2021. MG MAMM SCREEN 3DBIL CAD, 02/05/2022. INDICATIONS: screening Z12.31 Calculator Name NCI Breast Cancer Risk Assessment Tool 5 Year Breast Cancer Risk 3.90% Lifetime Breast Cancer Risk 7.80% Personal Breast Cancer No Personal Ovarian Cancer Yes, Age 51, Hysterectomy Treatments None Family Cancers Mother with breast cancer at age 63; Sister withuterine cancer at age 23; Brother with liver cancer at age 68. LOCATION: [facility] BREAST COMPOSITION: Scattered areas fibroglandular density. FINDINGS: [...] BIOPSIED. Dictated by: Preston Hancock MD on 02/16/2023 at 09:30 Approved by: Preston Hancock MD on 02/16/2023 at 09:35 Dictated By: Preston Hancock M.D. Signed By:02/16/2337 DD/ 5 TD/TT: Frog Catcher: us Dana Tapia NP [facility] Final Result documented in this encounter Visit Diagnoses Not on filedocumented in this encounter Care Teams Rn Urgent Care Relationship Specialty Start Date End Date Lex Choi MD PCP - General Family Medicine 02/07/23 Dana Tapia NP [address] [place] [address] PCP - ACO Reach 04/06/24 Dana Tapia NP Nurse Practitioner Family Medicine 10/11/22 documented as of this encounter
--- OUTSIDE RECORDS SUMMARY | 2024-11-23 08:24 | XMS_ITS | Clinical Summary ---
Author Organization [employer] Address [id number] [address] [place] [address] Care Team Providers Care Artificial Marble Worker Name Role Phone LisettetrinityporshaDana floyd Miguelina PIÑA-OIL PIPELINE DISPATCHER Primary Care Provider Allergies Active Allergy Reactions Criticality Noted Date Comments Adhesive Tape-Silicones 10/29/2016 Metformin 06/13/2023 Other Reaction(s): g/i s/e Semaglutide Diarrhea 06/13/2023 Soy Nausea High 12/08/2021 Nausea, rash, eye swelling from an excessive soy diet. Sulfa (Sulfonamide Antibiotics) Hives 10/28/2016 Medications amLODIPine (NORVASC) 10 mg tablet Take 0.5 tablets (5 mg total) by mouth in the morning. 3 7 Active cetirizine (ZyrTEC) 10 mg tablet 4 7 Active gabapentin (NEURONTIN) 100 mg capsule Take 1 capsule (100 mg total) by mouth in the morning. 4 7 Active meloxicam (MOBIC) 15 mg tablet Take 1 tablet (15 mg total) by mouth in the morning. 7 Active MAGNESIUM CARBONATE ORAL Take 250 mg by mouth in the morning. Active DOCOSAHEXANOIC ACID/EPA (FISH OIL ORAL) Take by mouth in the morning. Active fluticasone (FLONASE) 50 mcg/actuation nasal spray Administer 1 spray into each nostril as needed. Active melatonin tablet Take by mouth nightly. Active socuaptq-sodl-ED -calcium &mins (THERAGRAN-M) 9 mg iron-400 mcg tablet Take 1 tablet by mouth in the morning. Active ascorbic acid, vitamin C, (VITAMIN C) 1000 mg tablet Take 1 tablet (1,000 mg total) by mouth in the morning. Active calcium carbonate-vitami n D3 (OSCAL 500 + D) 500 mg(1,250mg) -200 units per tablet Take 1 tablet by mouth in the morning and 1 tablet in the evening. Take with meals. Active atorvastatin (LIPITOR) 20 mg tablet Take 1 tablet (20 mg total) by mouth in the morning. 2 Active ferrous sulfate 325 (65 FE) mg tablet Take 1 tablet (325 mg total) by mouth in the morning. 2 Active losartan (COZAAR) 100 mg tablet Take 1 tablet (100 mg total) by mouth in the morning. 2 Active FARXIGA 5 mg tablet Take 1 tablet (5 mg total) by mouth in the morning. 2 Active latanoprost (XALATAN) 0.005 % ophthalmic solution Administer 1 drop to both eyes nightly. Active cholecalciferol, vitamin D3, 2,000 units capsule Take 1 capsule (2,000 Units total) by mouth in the morning. Active diphenhydrAMINE- acetaminophen (TYLENOL PM) 25-500 mg tablet Take 1 tablet by mouth nightly as needed for sleep. Active alendronate (FOSAMAX) 70 mg tablet Take 1 tablet (70 mg total) by mouth every 7 days. In a.m. with water on empty stomach, nothing else by mouth and remain upright for 30min saturdays Active aspirin 81 mgIndications:Ro tator cuff arthropathy of right shoulder Take 1 tablet (81 mg total) by mouth in the morning. Begin taking day AFTER total joint replacement. 30 tablet 5 Active traMADoL (ULTRAM) 50 mg tabletIndication s:S/P reverse total shoulder arthroplasty, right Take 1 tablet (50 mg total) by mouth every 6 (six) hours as needed for pain. 28 tablet 5 Active Active Problems Problem Noted Date Diagnosed Date Rotator cuff arthropathy of right shoulder 01/18 Back pain 07/07/2021 Cataract 07/07/2021 Obesity 07/07/2021 Reflux esophagitis 10/14/2017 Ovarian cancer 02/28/1994 Hypertension Fibromyalgia Diabetes mellitus Arthritis Hyperlipidemia Encounters Date Type Department Care Team Description 11/08/2024 2:50 PM EDT Office Visit [facility] [address] [place] [address] Edgardo Barnett MD S/P reverse total shoulder arthroplasty, right (Primary Dx) 11/08/2024 2:35 PM EDT Ancillary Procedure [facility] [address] [place] [address] S/P reverse total shoulder arthroplasty, right 11/08/2024 Orders Only [facility] [address] [place] [address] Michell Woodruff MA S/P reverse total shoulder arthroplasty, right (Primary Dx) 11/07/2024 Travel 11/07/2024 Telephone [facility] [address] [place] [address] Andrea Dubose from Last 3 Months Family History Medical History Relation Name Comments Cancer Brother Liver Diabetes Brother Heart disease Father Breast cancer Mother COPD Mother Diabetes Mother Kidney disease Mother Colon cancer Paternal Aunt Relation Name Status Comments Brother Father Mother Paternal Aunt Sister Alive Social History Tobacco Use Types Packs/Day Years Used Date Smoking Tobacco: Never Smokeless Tobacco: Never Tobacco Cessation:Counseling Given: Not Answered Alcohol Use Standard Drinks/Week Comments No 0 [...] on file Sexual Orientation Not on file Last Filed Vital Signs Vital Sign Reading Time Taken Comments Blood Pressure 125/72 04/04/2024 3:50 PM EST Pulse 104 04/04/2024 3:50 PM EST Temperature 36.1 C (97 F) 04/04/2024 3:50 PM EST Respiratory Rate 16 04/04/2024 3:50 PM EST Oxygen Saturation 96% 04/04/2024 3:50 PM EST Inhaled Oxygen Concentration - - Weight 94.3 kg (208 lb) 11/08/2024 2:10 PM EDT Height 160 cm (5' 3 ) 11/08/2024 2:10 PM EDT Body Mass Index 36.85 11/08/2024 2:10 PM EDT Plan of Treatment Health Maintenance Due Date Last Done Comments Depression Screening 1957 DTaP,Tdap and Td Vaccines (1 - Tdap) 1966 Fall Risk Screening 01/31/2012 COVID-19 Vaccine (8 - Pfizer risk season) 2024 12/04/2023, 12/04/2022, 12/06/2021, Additional history exists Influenza Vaccine 10/29/2024 11/22/2023, , 12/06/2021, Additional history exists Tobacco Screening 11/12/2025 11/12/2024 Colonoscopy Discontinued 02/18/2022, 01/29, 12/24/2016, Additional history exists Zoster (Shingles) Vaccine Completed 03/19/2022, Medical Devices Implanted Type Area Senior Product Manager Device Identifier Shelf Expiration Date Model / Serial / Lot Healicoil Regenesorb 4.75mm Suture Brant Implanted:Qty : 1 on 10/05/2023 by Rj Schilling DO at [facility] Brant Right: Shoulder [employer] 04/27/2025 [id number] / [id number] / [id number] Healicoil Regenesorb 4.75mm Suture Brant Implanted:Qty : 1 on 10/05/2023 by Rj Schilling DO at [facility] Brant Right: Shoulder [employer] 12/03/2025 [id number] / NA / [id number] Healicoil Regenesorb 4.75 Suture Brant Implanted:Qty : 1 on 10/05/2023 by Rj Schilling DO at [facility] Brant Right: Shoulder [employer] 03/08/2026 [id number] / NA / [id number] Healicoil Knotless Regenesorb Suture Brant Implanted:Qty : 2 on 10/05/2023 by Rj Schilling DO at [facility] Brant Right: Shoulder [employer] 07/17/2026 [id number] / NA / [id number] Healicoil Knotless Regenesorb Suture Brant Implanted:Qty : 1 on 10/05/2023 by Rj Schilling DO at [facility] Brant Right: Shoulder [employer] 08/10/2025 [id number] / [id number] / [id number] Bearing Hum 36mm Cmprh Std Shldr Prlng Rvrs - [id number] Implanted:Qty : 1 on 04/04/2024 by Edgardo Barnett MD at [facility] Bearing Right: Shoulder [employer] [id number] 11/14/2028 [id number] / / [id number] Lens Iol Ultrasert 18.0d - [id number] - [id number] Implanted:Qty : 1 on 04/04/2018 by Glenna Egan MD at [facility] Lens Right: Eye [employer] 08/27/2020 [id number] 18.0 / [id number] / NA Lens Iol Ultrasert 17.5d - [id number] - [id number] Implanted:Qty : 1 on 04/18/2018 by Glenna Egan MD at [facility] Lens Left: Eye [employer] 08/27/2020 AU00T0 17.5 / [id number] / NA Baseplate Augusto Cmprh 25mm Mn Shldr Tpr Adpr Rvrs Sys - [id number] Implanted:Qty : 1 on 04/04/2024 by Edgardo Barnett MD at [facility] Orthopedic Implant Right: Shoulder [employer] [id number] 02/07/2034 [id number] / / [id number] Component Augusto 36mm Std Glenosphere Clr Cd Cmprh Versa-Dial - [id number] Implanted:Qty : 1 on 04/04/2024 by Edgardo Barnett MD at [facility] Orthopedic Implant Right: Shoulder [employer] [id number] 01/23/2034 [id number] / / [id number] Tray Hum Cmprh Std Shldr Rvrs - [id number] Implanted:Qty : 1 on 04/04/2024 by Edgardo Barnett MD at [facility] Orthopedic Implant Right: Shoulder [employer] [id number] 03/16/2034 [id number] / / [id number] Stem Hum 83mm 12mm Cmprh Por Mn Shldr Rvrs Sys - [id number] Implanted:Qty : 1 on 04/04/2024 by Edgardo Barnett MD at [facility] Orthopedic Implant Right: Shoulder [employer] [id number] 02/13/2032 [id number] / / [id number] [id number] Screw Bn 15mm 4.75mm Lck Fx Ang Hx Hd Ti Cmprh 3.5mm Strl - [id number] Implanted:Qty : 1 on 04/04/2024 by Edgardo Barnett MD at [facility] Screw Right: Shoulder [employer] [id number] 01/11/2034 [id number] / / [id number] 891Q Screw Bn 40mm 6.5mm Cntr Hx Hd Ti Cmprh 3.5mm Strl Rvrs - [id number] Implanted:Qty : 1 on 04/04/2024 by Edgardo Barnett MD at [facility] Screw Right: Shoulder [employer] 01/17/2034 [id number] / / [id number] Screw Bn 30mm 4.75mm Va Hx Hd Ti Cmprh 3.5mm Strl Rvrs Shldr - [id number] Implanted:Qty : 1 on 04/04/2024 by Edgardo Barnett MD at [facility] Screw Right: Shoulder [employer] [id number] 11/30/2033 [id number] / / [id number] 891Q Screw Bn 35mm 4.75mm Va Hx Hd Ti Cmprh 3.5mm Strl Rvrs Shldr - [id number] Implanted:Qty : 1 on 04/04/2024 by Edgardo Barnett MD at [facility] Screw Right: Shoulder [employer] [id number] 11/30/2033 [id number] / / [id number] 891Q Screw Bn 15mm 4.75mm Lck Fx Ang Hx Hd Ti Cmprh 3.5mm Strl - [id number] Implanted:Qty : 1 on 04/04/2024 by Edgardo Barnett MD at [facility] Screw Right: Shoulder [employer] [id number] 01/29/2034 [id number] / / [id number] 891Q Isten Trab [employer]ro [employer] - [id number] - [id number] Implanted:Qty : 1 on 04/04/2018 by Glenna Egan MD at [facility] Stent Right: Eye [employer] 09/27/2020 [id number] / [id number] / NA Isten Trab Mcro Byps - [id number] - [id number] Implanted:Qty : 1 on 04/18/2018 by Glenna Egan MD at [facility] Stent [employer] 09/27/2020 [id number] / [id number] / [id number] Procedures Procedure Name Priority Date/Time Associated Diagnosis Comments XR SHOULDER RT MIN 2 VWS Routine 11/08/2024 3:03 PM EDT S/P reverse total shoulder arthroplasty, right PROVATION COLONOSCOPY Routine 02/18/2022 6:35 AM EST from Last 3 Months or Most Recently Relevant to Health Maintenance Results * X-ray shoulder right minimum 2 views (11/08/2024 3:03 PM EDT) Anatomical Region Laterality Modality MSK, Upper Extremities, Shoulder Right Computed Radiography 11/09/2024 3:33 PM EDT Narrative 11/09/2024 3:33 PM EDT Comparison April 19 History: S/P reverse total shoulder arthroplasty, right XR SHOULDER RT MIN 2 VWS Impression: 1. Prosthesis shows no radiographic evidence for complication. No acute findings. Finalized by Neal Gutierres MD on 11/09/2024 3:33 PM Procedure Note Neal Gutierres MD - 11/09/2024 Comparison April 19 History: S/P reverse total shoulder arthroplasty, right XR SHOULDER RT MIN 2 VWS Impression: 1. Prosthesis shows no radiographic evidence for complication. No acutefindings. Finalized by Neal Gutierres MD on 11/09/2024 3:33 PM us Edgardo Barnett MD IMG DIAGNOSTIC IMAGING OR DERABLES Final Result * Colonoscopy Report (02/18/2022 6:35 AM EST) Narrative SYSTEMGENERATED, DOCUMENTATION - 02/18/2022 6:35 AM EST This order has been auto-finalized for image and report archival in PACs. *For full report details, please reach out to your physician. Effective 07/15/20 this image will be visible to you in MyChart.* us Paco Ghosh DO IMG OR IMG ORDERABLES Final Result from Last 3 Months or Most Recently Relevant to Health Maintenance Insurance MEDICARE [facility] Care Teams Artificial Marble Worker Relationship Specialty Start Date End Date Dana Tapia APRN-OIL PIPELINE DISPATCHER PCP - General Nurse Practitioner 04/03/19
--- OUTSIDE RECORDS SUMMARY | 2024-11-23 08:24 | XMS_ITS | Encounter Summary ---
Author Organization [facility] Address [address] [place] [address] Care Team Providers Care Chalk Machine Operator Name Role Phone Unallocated, Meera Provider Primary Care Provi keke Dana Tapia SUPERVISOR [employer]RAIN [employer] YEAST [employer]ANTS Unavailable [phone] Lex Choi MD Primary Care Provider [phone] Dana Tapia SUPERVISOR [employer] Unavailable [phone] Encounter Details Date Type Department Care Team (Late st Contact Info) Description 09/15/2022 Abstract [facility] [address] [place] [address] Ranjeet Christianson SUPERVISOR [employer] [address] [place], [place] [id number] Social History Tobacco Use Types Packs/Day Years Used Date Smoking Tobacco: Former Cigarettes Smokeless Tobacco: Never Alcohol Use Standard Drinks/Week Comments Not Currently 0 (1 standard drink = 0.6 oz pur e alcohol) Comments Unknown Sex and Gender Information Value Date Recorded Sex Assigned at Female 09/20/2023 5:10 PM EDT Legal Sex Female 6:37 PM EDT Gender Identity Female 09/20/2023 5:10 PM EDT Sexual Orientation Not on file documented as of this encounter Plan of Treatment Upcoming Encounters Date Type Department Care Team (Late st Contact Info) Description 01/16/2025 2:45 PM EST Procedure Visit [facility] [address] [place] [address] Markus Baer, DPM [address] [place], [place] [id number] documented as of this encounter Visit Diagnoses Not on filedocumented in this encounter Care Teams Chalk Machine Operator Relationship Specialty Start Date End Date Unallocated, Noms MD Miguel A [address] [place] [address] PCP - General 09/14/22 02/06/23 Lex Choi MD [address] [place] [address] PCP - General Family Medicine 02/07/23 Dana Tapia NP [address] [place] [address] PCP - ACO Reach 04/06/24 Dana Tapia NP [address] [place] [address] Nurse Practitioner Family Medicine 10/11/22 documented as of this encounter
--- OUTSIDE RECORDS SUMMARY | 2024-11-23 08:24 | XMS_ITS | Encounter Summary ---
Author Organization [employer] Address [id number] [address] [place] [address] Care Team Providers Care Certified Dialysis Technician Name Role Phone Dana Tapia Miguelina LABOUR MARKET ECONOMIST-CLINICAL ASST Primary Care Provider Encounter Details Date Type Department Care Team (Late st Contact Info) Description 06/05/2024 [facility] [address] [place] [address] Ashley Power Social History Tobacco Use Types Packs/Day Years [...] on file documented as of this encounter Miscellaneous Notes * Telephone Encounter - Ashley Power - 06/05/2024 2:52 PM EDT Patient is s/p RTSA 04/04/2024. She states that she did her exercises on Tuesday evening and then whenshe woke up on Tuesday she could hardly use her arm. She went to physical therapy today and they couldn't move it without causing her pain as well, they advised her to call our office and see what we would like to proceed with this. Please Advise * Telephone Encounter - LORENA Mcarthur - 06/05/2024 2:52 PM EDT I would make her an office appointment. She needs an x-ray. documented in this encounter Plan of Treatment Not on file documented as of this encounter Visit Diagnoses Not on filedocumented in this encounter Care Teams Certified Dialysis Technician Relationship Specialty Start Date End Date Dana Tapia, WANG-CLINICAL ASST PCP - General Nurse Practitioner 04/03/19 documented as of this encounter
--- OUTSIDE RECORDS SUMMARY | 2024-11-23 08:24 | XMS_ITS | Encounter Summary ---
Author Organization [facility] Address [address] [place] [address] Care Team Providers Care Stave Block Splitter Name Role Phone Unallocated, Kvng Provider Primary Care Provi keke Dana Tapia PACKAGE DELIVERY ROOM SERVICE RUNNER Unavailable [phone] Lex Choi MD Primary Care Provider Dana Tapia PACKAGE DELIVERY ROOM SERVICE RUNNER Unavailable [phone] Encounter Details Date Type Department Care Team (Late st Contact Info) Description 10/06/2022 Abstract [facility] [address] [place] [id number] Markus Baer DPTamara [address] [place], [place] [id number] Social History Tobacco Use Types Packs/Day Years Used Date Smoking Tobacco: Never Smokeless Tobacco: Never Tobacco Cessation:Counseling Given: Not Answered Alcohol Use Standard Drinks/Week Comments Not Currently 0 (1 standard drink = 0.6 oz pure [...] 01/16/2025 2:45 PM EST Procedure Visit [facility] [address] [place] [id number] Markus Baer, DENIA [address] [place], [place] [id number] documented as of this encounter Visit Diagnoses Not on filedocumented in this encounter Care Teams Stave Block Splitter Relationship Specialty Start Date End Date Unallocated, Kvng Grady MD [address] [place] [address] PCP - General 09/14/22 02/06/23 Lex Choi MD [address] [place] [address] PCP - General Family Medicine 02/07/23 Dana Tapia NP [address] [place] [address] PCP - ACO Reach 04/06/24 Dana Tapia NP [address] [place] [address] Nurse Practitioner Family Medicine 10/11/22 documented as of this encounter
== END 2024-11-23 08:05 | disposition home or self-care (01) ==
LOC: RAD 08:05
PROVIDERS: PCP Nurse Practitioner; Visit Provider Nurse Practitioner
DX: M48.061 Spinal stenosis, lumbar region without neurogenic claudication (principal); M85.88 Other specified disorders of bone density and structure, other site; M51.369 Other intervertebral disc degeneration, lumbar region without mention of lumbar back pain or lower extremity pain
CPT/HCPCS: 72110

== ENCOUNTER 2025-02-08 09:01 | Outpatient (OUT) | payer MEDICARE, SELFPAY ==
--- OUTSIDE RECORDS SUMMARY | 2025-01-29 10:45 | XMS_ITS | Continuity of Care Document ---
Author Organization [facility] Address [address] [place] [address] Phone Care Team Providers Care Security System Installer Name Role Phone Lex Choi MD Primary Care Provider [phone] Dana Tapia COMPLIANCE COUNSEL-C Attending Provider Dana Tapia COMPLIANCE COUNSEL-C Primary Care Provider Gutierrez Porras DO Attending Provider Ruddy Stone DO Attending Provider [phone] Care Teams Patient Care Team Team Status: Active Member Role/Relationship Status Dates Dana Tapia NP-C Primary Care Provider Active Visit Care Team Team Status: Inactive Member Role/Relationship Status Dates Lex Choi MD Primary Care Provider Active S tart: November 06, 2024 End: November 06, 2024BORIS McgrathCAtmelyssa ProviderActiveStart: November 06, 2024 End: November 06, 2024 Visit Care Team Team Status: Inactive Member Role/Relationship Status Dates Dana Tapia COMPLIANCE COUNSEL-C Primary Care Provider Active Start: November 21, 2024 End: November 21, 2024BORIS McgrathCAtmelyssa ProviderActiveStart: November 21, 2024 End: November 21, 2024 Visit Care Team Team Status: Inactive Member Role/Relationship Status Dates Dana Tapia NP-C Primary Care Provider Active Start: December 11, 2024 End: December 11, 2024Dana Tapia COMPLIANCE COUNSEL-CAttending ProviderActiveStart: December 11, 2024 End: December 11, 2024 Visit Care Team Team Status: Inactive Member Role/Relationship Status Dates Dana Tapia , COMPLIANCE COUNSEL-C Primary Care Provider Active Start: December 24, 2024 End: December 24, 2024Dana Tapia COMPLIANCE COUNSEL-CAttending ProviderActiveStart: December 24, 2024 End: December 24, 2024 Visit Care Team Team Status: Inactive Member Role/Relationship Status Dates Dana Tapia COMPLIANCE COUNSEL-C Primary Care Provider Active Start: January 23, 2025 End: January 23, 2025Gutierrez Porras DOAttending ProviderActiveStart: January 23, 2025 End: January 23, 2025 Patient Care Team Team Status: Inactive Member Role/Relationship Status Dates Dana Tapia , COMPLIANCE COUNSEL-C Primary Care Provider Active Start: January 29, 2025 End: January 29, 2025Mattveronika Stone DOAttending ProviderActiveStart: January 29, 2025 End: January 29, 2025 Chief Complaint and Reason for Visit Chief Complaint Admit Date ESTABLISHED PATIENT November 06, 2024 1:42pm sciatica pain November 21, 2024 4:25pm M48.061 December 11, 2024 6 :45am 1M December 24, 2024 1 :50pm Spinal stenosis, lumbar region without n eurogenic January 23, 2025 9:02am Rt Hip pain January 29, 2025 2 :45pm Reason for Visit Admit Date ODALYS (generalized anxiety disorder) Olivia loya 2024 1:42pm Hypertension November 06, 2024 1:42pm Obesity, Class II, BMI 35-39.9 November 06, 2024 1:42pm Right shoulder pain November 06, 2024 1:42pm Lumbar spinal stenosis November 21 4:25pm Hypertension December 24, 2024 1 :50pm Lumbar spinal stenosis December 24 1:50pm Obesity, Class II, BMI 35-39.9 November 292024 1:50pm Lumbar spinal stenosis January 23 9:02am Piriformis syndrome of right side Decemb er 2024 2:45pm Myalgia, pelvic region and thigh Decembe r 2024 2:45pm Reason for Referral Type Reason(s) Provider Provider Contact Information Aixa tiwari Address Start Date Spinal stenosis of lumbar region M48.061 - Spinal stenosis, lumbar region without neurogenic claudication Piriformis syndrome G57.00 - Lesion of sciatic nerve, unspecified lower limbM48.061 - Spinal stenosis, lumbar region without neurogenic claudicationDetermined by Patient January 25, 2025G57.00 - Lesion of sciatic nerve, unspecified lower limb Ruddy Emily Stone Abdoulaye Phone: [phone] [facility], [facility] [address]Ypxiolll 2024 Allergies, Adverse Reactions, Alerts Allergen Type Severity Reaction Last Updated Verified Status metformin Allergy Unknown g/i s/e January 29, 2025 2:55pm Yes Active semaglutide Allergy Unknown diarrhea January 29, 2025 2:55pm Yes Active soy Allergy Unknown Unknown Reaction January 29, 2025 2:55pm Yes Active sulfamethoxazole Allergy Unknown rash January 29, 2025 2:55pm Yes Active trimethoprim Allergy Unknown rash January 2:55pm Yes Active Sulfa (Sulfonamide Antibiotics) Allergy Unknown Rash January 29, 2025 2:55pm Yes Active Social History Smoking Status Status Start Date End Date Date of Observa tion Never smoked tobacco (finding) December 26, 2024 11:25am Observation Status Observation Response Date of Response Legal Sex Female (finding) [facility] 1944 Family History Relationship Condition Age at Onset Recorded Date/T sweta brother Diabetes mellitus Unknown Malignant neoplasmUnknownDeceasedUnknownfatherHeart diseaseUnknownDeceased UnknownHypertensionUnknownDiabetes mellitusUnknownHistory of strokeUnknownmother DeceasedUnknownMalignant neoplasmUnknownDiabetes mellitusUnknownsisterMalignant neoplasmUnknownHistory of strokeUnknown Problems Active Problems Problem Diagnosis/Recorded Date Onset Date Status C omments Encounter for subsequent [facility] wellness visit (AWV) in Medicare patient November 06, 2024 7:48am Unknown Active ODALYS (generalized anxiety disorder)November 06, 2024 7:48amUnknownActiveType 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April 2023 1:36pm UnknownActiveBreast cancer screening by mammogramSeptember 2024 7:48am UnknownActiveMenopauseSeptember 2024 7:49amUnknownActiveLumbar spinal stenosisSeptember 2024 4:22pmUnknownActiveSecondary hyperparathyroidism June 13, 2023 1:37pmUnknownActiveMalignant neoplasm of ovarySeptember 2024 7:49amUnknownActiveDietary counseling and surveillanceAugust 2023 11:46amUnknownActiveCKD (chronic kidney disease) stage 3, GFR 30-59 ml/minApril 2023 1:36pmUnknownActiveAge related osteoporosisSeptember 2024 7:47am UnknownActiveDEXA 02/18/23 -2.7Hypertensive chronic kidney disease with stage 1 through stage 4 chronic kidney disease, or unspecified chronic kidney disease June 13, 2023 1:36pmUnknownActiveFibromyalgiaSeptember 2024 7:48am UnknownActiveHyperlipidemiaAugust 2023 11:46amUnknownActiveObesity, Class II, BMI 35-39.9January 2024 2:46pmUnknownActiveOsteoarthritisSeptember 2024 7:47amUnknownActiveBMI 36.0-36.9,adultJuly 2024 1:42pmUnknownActive GERD without esophagitisSeptember 2024 7:48amUnknownActiveRight shoulder painSeptember 2024 1:34pmUnknownActiveHypertensionAugust 2023 11:46am UnknownActiveVitamin D deficiencyApril 2023 1:37pmUnknownActiveIron deficiencyApril 2023 1:36pmUnknownActiveHypomagnesemiaApril 2023 1:37pmUnknownActiveInactive/Resolved Problems Problem Diagnosis/Recorded Date Onset Date Status C omments BMI 34.0-34.9,adult [place] , 2024 1:17pm Unknown Res olved Medications Medication Status Dose Units Route Directions Qty Days Refills S tart Date Stop Date End Date Reason(s) Instructions Adherence Ferrous Sulfate 325 mg (65 mg iron) tablet Discontinued 325 MG PO Every 48 hours 45 1May 2023 3:45pmOctober 2023 3:47pmDapagliflozin Propanediol (Farxiga) 5 mg fcxbvtTiidzozljecb2XYMRDmstv429Lhtx 2023 12:41pmOctober 2023 3: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 Type 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Ferrous Sulfate 325 mg (65 mg iron) dnbtwkNsuujbpwbnhb792DYZIEuqpd 48 ougon971Oviceis 2023 3:47pmApril 2024 8:20amDapagliflozin Propanediol (Farxiga) 5 mg tablet Pdmeckoyjoxj9JKSCYqwoc254Ykqhcnn 2023 3:50pmMay 2024 9: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 Type 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Ferrous Sulfate 325 mg (65 mg iron) tabletDiscontinued0.ROUTE.YUZXXQL033Yymkz 2024 8:19am November 27, 2024 7:54amTAKE 1 TABLET BY MOUTH EVERY 48 HOURSDapagliflozin Propanediol (Farxiga) 5 mg nwukzmJsjnqs7XSAVMjaeg310Umn 2024 9: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 Type 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RX FOR AZ&ME PATIENT ASSISTANCE PROGRAMComplies with drug therapyGabapentin 100 mg capsule Fdctybbhxvtp675IGTQIerkk894Itackgnfn 2024 12:25pmSeptember 2024 4:28pmFibromyalgia FibromyalgiaFerrous Sulfate 325 mg (65 mg iron) tabletActive0.ROUTE.OAGRIOE882 November 27, 2024 7:53amTAKE 1 TABLET BY MOUTH EVERY 48 HOURSComplies with drug therapyMeloxicam 15 mg wtwfetMpjqxb76EHYZQhmge007Bqaulnvls 2024 8:24amOsteoarthritis Unspecified osteoarthritis, unspecified siteComplies with drug therapyLosartan 100 mg ittyqiZpemob607KXSTUixdv349Uhqpgqny 2024 8:46amHypertension Essential (primary) hypertensionComplies with drug therapyAlendronate (Fosamax) 70 mg gyovejExsiaz95ZICWlukis xooo990Hgtraeha 2024 8:58amAge related osteoporosis Age-related osteoporosis without current pathological fractureComplies with drug therapyFinerenone 10 mg zthszfZwntxtootssa3JWKYWMdzhkReiur 2023 11:00pm May 11, 2023 4:58pmFreeTextSig: TAKE 1 TABLET BY MOUTH EVERY DAY; Note: Source Status: Taking; Refills: 1; Qty: 90 Tablet; Provider: Cindy Lyn ( )Finerenone 10 mg oofhooAbddnsbskruy95PYFCRtpnf49679Sshcz 2023 4:55pmApril 2023 3:23pmDuloxetine 60 mg capsule,delayed release(DR/EC) Vqdcaz02IFOGVmoquPzly 2024 11:00pmComplies with drug therapyGabapentin 100 mg sufamzuNlyrpb340BDJGTlgdg times ybjck2684Cfgcgucnk 2024 4:27pm Fibromyalgia FibromyalgiaComplies with drug therapyCalcium Carbonate-Vitamin D3 600 mg-20 mcg (800 unit) huchpxBuetdn1XRDCHXxgmg dailyApril 2023 11:00pmComplies with drug therapyMelatonin 10 mg nojhzcEiplxw66FLGCPkdyp at bedtimeApr2023 11:00pmComplies with drug therapyMagnesium Oxide 250 mg magnesium tabletActive 250MGPODailyApril 2023 11:00pmComplies with drug therapySertraline 50 mg ahpoqfNhwwclgxnwcz60WASFVgnwqBlwsm 2023 11:00pmOctober 2023 1:20pm Losartan 100 mg kbwipcJcykqpwaxpos116BJGULatweClfbj 2023 11:00pmNovember 2024 8:46amGabapentin 100 mg kccvetfCrptqlzebktd966XLDZTuidiHqvxs 2023 11:00pmSeptember 2024 12:26pmAspirin 81 mg tablet,naionterQbnxae18IL PODailyApril 2023 11:00pmComplies with drug therapyOmeprazole 20 mg capsule,delayed release(DR/EC)Kcyxal10ZCYBNmzehMtbjt 2023 11:00pmComplies with drug therapyFerrous Sulfate 325 mg (65 mg iron) vtgeynRiietmomvejd748EPXF Every 48 hoursApril 2023 11:00pmMay 2023 3:45pmAmlodipine 5 mg uoxgccTufjph5BMBSTvxhvZbovd 2023 11:00pmComplies with drug therapy Meloxicam 15 mg vbhzvdDqnnbdsmwemu67WLBDFbuinFsqwc 2023 11:00pmSeptember 2024 8:25amCetirizine (Zyrtec) 10 mg grbkxpQlvukr41SYRCRglwiHpslj 2023 11:00pmComplies with drug therapyAscorbic Acid (Vitamin C) 1,000 mg tablet Okdwan7IVJRLfzgbJiycu 2023 11:00pmComplies with drug therapyAtorvastatin 20 mg mmfwfxOnysol92YIXIEpzdtJsdhp 2023 11:00pmComplies with drug therapy Latanoprost 0.005 % pgbmmRrshat0FUUBNSYEQAXDVWIIqrvfKzqtf 2023 11:00pm FreeTextSi drop into affected eye in the evening Ophthalmic Once a day; Note: Source Status: Taking; Provider: Sadaf Lebron ( )Complies with drug therapyMultivitamin (One Daily Essential) futykoXplwyn3FOZMTFrdjfAphxr 2023 11:00pmComplies with drug therapyOmega-3 Fatty Acids 1,000 mg capsule Dnjabf9652FSBCKbiwq dailyApril 2023 11:00pmComplies with drug therapy Dapagliflozin Propanediol (Farxiga) 5 mg aolqsjUftqbsgzebfc3TIZTJxjofAqhtb 2023 11:00pmJuly 2023 12:42pmCholecalciferol (Vitamin D3) 50 mcg (2,000 unit) kpmedpfYdomon66USUOQDxdihVfmor 2023 11:00pmComplies with drug therapyDiphenhydramine-Acetaminophen 25-500 mg ihsvbcYrlyii7ZJUWDFrczqNysox 2023 11:00pmComplies with drug therapyAlendronate (Fosamax) 70 mg tablet Zbqrrdjkzpvk95QYMDbvvyx weekApril 2023 11:00pmDecember 2024 8:58am Duloxetine 30 mg capsule,delayed release(/EC)Rvsuunpwossn14VRZWPflcJeeygak 2023 11:00pmJuly 2024 1:36pmTramadol 50 mg pbhvxlBxxxjlfverus23KEYU Daily at bedtime as neededApril 2024 11:00pmDece2024 2:56pm Immunizations Immunization Event Date Not Given Reason Dose Number Travel Professional Lot Number Reason(s) Given Vaccine Information Statement (VIS) Detail Administration Location COVID-19 mRNA, Comirnaty (Optini) April 03, 2020 COVID-19 mRNA, Comirnaty (Optini)April 25OVID-19 mRNA, Comirnaty (Optini)December 05, 2020 Procedures Procedure Date Performed Status MR lumbar spine wo con December 11, 2024 5:45am completed Relevant Diagnostic Tests and/or Laboratory Data Diagnostic Imaging Reports Author Yosef Solis [facility] HospitalAuthoredOctbaptist [facility] 2024 8:45amReportDictated Date/TimeDictated ByStatusRadiology ReportOctober 2024 8:45amYosef Solis [facility]naW[facility] [place] [address] MRI Report Signed Patient: Ashley Olson MR#: [id number] : 1945 Acct:[id number] Age/Sex: 79 / F ADM Date: 5 Loc: MR Room: Type: [facility] Attending Dr: Dana LEE Copies to: ROSA Mcgrath~ Ordering Provider: ROSA Mcgrath Date of Service: 12/11/24 MR/MR lumbar spine wo con: lumbar back pain with S1 radiclopathy MRI lumbar spine performed without contrast COMPARISON: 11/23/2024 lumbar spine x-rays INDICATION: Low back pain with S1 radiculopathy FINDINGS: Diffuse fatty/yellow marrow changes. Modic type I endplate marrow changes T11-T12 partially visualized. Vertebral body hemangioma at L5. Anterolisthesis L4-L5 2 mm and L5-S1 3 mm. Likely caused by the facet arthropat hy levels. Otherwise mild multilevel disc desiccation. Mild intervertebral space narrowing at L5-S1. Vertebral heights and remaining intervertebral spaces are preserved. Conus medullaris terminates normally mid L1. Nerve roots of the cauda equina are unremarkable. Right renal cyst noted. T12-L1: Disc desiccation. No significant disc protrusion central canal neural foramen identified. Mild facet arthropathy. L1-2: Broad-based disc bulge with mild facet arthropathy. Mild ligamentum flavum hypertrophy. Canal neural foramina patent. L2-3: Disc desiccation with oyex-rc-myxjydek facet arthropathy. Minimal left foraminal narrowing. Right foramen and central canal patent. L3-4: Broad-based disc bulge with moderate facet arthropathy and bilateral facet joint effusion. Moderate central stenosis. Eglb-mu-flppcwmu neural foraminal narrowing. L4-5: Broad-based disc bulge with moderate to severe facet arthropathy and facet spurring. This causes moderate to severe central canal stenosis and moderate crowding subarticular zones. This moderate neural from narrowing. L5-S1:: Circumferential disc bulge with moderate to severe facet arthropathy and spurring this causes severe bilateral subarticular recess narrowing appears most pronounced the left correlate with left greater than right S1 radiculopathy. Suspected synovial cyst as well and left measuring 4 x 3 mm in size MR/MR lumbar spine wo con IMPRESSION: Multilevel degenerative changes greatest involving the lower facet joints. Evidence of severe subarticular recess narrowing left greater than right at L5-S1, correlate with left greater than right S1 radiculopathy. Moderate severe central canal stenosis and facet arthropathy at L4-5 Impression dictated by: Yosef Solis M.D. 12/11/2024 8:56 AM Dictation Location: [place] [address] Transcribed By: [facility] 12/11/24 0856 Dictated By: Yosef Slois MD 12/11/24 0845 Signed By: <Electronically signed by Yosef Solis MD in [place]> 12/11/24 0856 Vital Signs Vital Reading Result Reference Range Collection Date/Time Height 64 [in_i] November 06, 2024 1:79tsXyruxl03.20 kgSept2024 1:09pmBody Rbnjyzdnjap00.6 [degF]97.6-99.0September 2024 1:09pmHeart Rate86 /zzz60-026 November 06, 2024 1:09pmRespiratory rate18 /kpx26-13Mveutbqll 9th, 2025 1:09pm Oxygen saturation by Pulse lchheuzv75 %95-100Sept2024 1:09pmBP Ordagljz079 mm[Hg]100-140Sept2024 1:09pmBP Pbymhgtau51 mm[Hg]60-100 November 06, 2024 1:09pmBMI (Body Mass Index)37.1 kg/k2Kmdhjyadw2024 1:22whYveuyd98 [in_i]November 21, 2024 3:35plYxpiwd60.03 kgSept2024 3:57pmBody Ixnmkxeajiw48.8 [degF]97.6-99.0Sept2024 3:57pmHeart Rate99 /hql47-455AdnobitjaNovember 21, 2024 3:57pmRespiratory rate18 /utf42-79 November 21, 2024 3:57pmOxygen saturation by Pulse qknruydt84 %95-100 November 21, 2024 3:57pmBP Exeoommz493 mm[Hg]100-140Sept2024 3:57pmBP Otobnysml36 mm[Hg]60-100September 2024 3:57pmBMI (Body Mass Index)37.0 kg/r7Jymvgbcvx2024 3:21dlSjfeky18 [in_i]December 24, 2024 1:15uwVfgowy83.54 kgOctober 2024 1:02pmBody Irlnmgnhpjb86.8 [degF] 97.6-99.0October 2024 1:02pmHeart Rate98 /vbw58-837Vvyhhpg 2024 1:02pmRespiratory rate16 /jrc96-24Csuiuoa 2024 1:02pmOxygen saturation by Pulse ctoxasaq65 %95-100October 2024 1:02pmBP Spicavlm674 mm[Hg]100-140 December 24, 2024 1:02pmBP Krhvcpeqg02 mm[Hg]60-100October 2024 1:02pmBMI (Body Mass Index)37.3 kg/o3Ntcetyl 2024 1:47inPcdcdv89 [in_i]January 23, 2025 9:16rgPrgvfr10.70 kgNovember 2024 9:05amBMI (Body Mass Index) 37.7 kg/g8Rksavxzd 2024 9:32kgKmjasv55 [in_i]January 29, 2025 2:57pm Ptgchu23.33 kgDeceer 2024 2:57pmHeart Rate78 /lcf20-440Aexlamly 2nd, 2025 2:57pmOxygen saturation by Pulse zwdmzqax45 %95-100[facility]2024 2:57pmBP Vqdvaywj388 mm[Hg]100-1402024 2:57pmBP Pxcgpqavc23 mm[Hg]60-100 January 29, 2025 2:57pmBMI (Body Mass Index)37.5 kg/t0Pxzhsnqg 2024 2:57pm Advance Directives Advance Directive Response Recorded Date/ Time Advance Directives No December 26, 2024 10:25am Insurance Providers Guarantor Ashley Olson Address [address] [facility] [address]Tfgnatz Info.Home Phone: Payer Group Member ID Coverage Type Subscriber Relationship to Subscriber Effective Date Expiration Date Medicare [id number] K Mcclain Id: [id number] [address] [facility] [address] Home Phone: Email: [email or web address] Claims [id number] K Mcclain Id: [id number] [address] [facility] [address] Home Phone: Email: [email or web address] Encounters Encounter Location(s) Arrival/Admit Date Discharge/Departure Date Discharge/Departure Disposition Provider(s) Departed Physician/ Provider Office Visit -[facility] [place] November 06, 2024 1:42pm November 06, 2024 2:35pm Discharged to home care or self care (routine discharge) ROSA Mcgrath Departed Physician/ Provider Office Visit -[facility] [place] November 21, 2024 4:25pm November 21, 2024 5:32pm Discharged to home care or self care (routine discharge) ROSA Mcgrath Departed Clinical -[facility] December 11, 2024 6:45am December 11, 2024 6:46am Discharged to home care or self care (routine discharge) ROSA Mcgrath Departed Physician/ Provider Office Visit -[facility] December 24, 2024 1:50pm December 24, 2024 2:34pm Discharged to home care or self care (routine discharge) ROSA Mcgrath Departed Physician/ Provider Office Visit -[facility] January 23, 2025 9:02am January 23, 2025 9:46am Discharged to home care or self care (routine discharge) Gutierrez Porras DO Departed Physician/ Provider Office Visit -[facility] January 29, 2025 2:45pm January 29, 2025 3:44pm Discharged to home care or self care (routine discharge) Ruddy Stone DO Recent Diagnosis Onset Date Admit Date ODALYS (generalized anxiety disorder) Unknown November 06, 2024 1:42pm Hypertension Unknown November 06 1:42pm Obesity, Class II, BMI 35-39.9 Unknown S eptember 2024 1:42pm Right shoulder pain Unknown October 1:42pm Lumbar spinal stenosis Unknown November 21, 2024 4:25pm Hypertension Unknown December 24 1:50pm Lumbar spinal stenosis Unknown November 292024 1:50pm Obesity, Class II, BMI 35-39.9 Unknown O ctober 2024 1:50pm Lumbar spinal stenosis Unknown January 23, 2025 9:02am Piriformis syndrome of right side Unknown January 29, 2025 2:45pm Myalgia, pelvic region and thigh Unknown January 29, 2025 2:45pm Assessments Diagnosis Onset Date Resolution Status Admit Date ODALYS (generalized anxiety disorder) acuteSeptember 2024 1:42pmHypertensionacuteSept2024 1:42pm Obesity, Class II, BMI 35-39.9acuteSeptember 2024 1:42pmRight shoulder pain acuteSeptember 2024 1:42pmLumbar spinal stenosisacuteSept2024 4:25pmHypertensionacuteOctober 2024 1:50pmLumbar spinal stenosisacute December 24, 2024 1:50pmObesity, Class II, BMI 35-39.9acuteOctober 2024 1:50pmLumbar spinal stenosisacuteNov2024 9:02amPiriformis syndrome of right sidenoneactiveDecember 2024 2:45pmMyalgia, pelvic region and thigh noneactiveDecember 2024 2:45pm Plan of Treatment Author Dana Tapia [facility]2024 4:51pmcheck xray will order MRI as well increase gabapentin to TID at 100mg also add tramadol for severe pain, hand written script given OARRS reviewed as well will need to check with ortho about implant DD: spinal stenosis, compression fracture, HNP fu in 4 weeks Author Gutierrez Porras [facility] 2024 9:52amIn summary is patient is a 79-year-old female that presents to clinic today with chief complaints of buttock pain on the right-hand side to which she describes actually being back pain in conjunction with a right foot numbness in the her foot falling asleep with leg heaviness with ambulation. At this time a physical exam is not actually back pain but rather is isolated to the right buttocks region specifically in the piriformis area. Additionally she states that her legs feel heavy and weak with ambulation which is only improved with sitting. She has not done any therapy or injections today. At this time independent reviewed the MRI from December 11, 2024 where she does have 5 1 spondylolisthesis and she conjunction with a right sided 5 1 foraminal stenosis. She has severe L5-S1 facet arthropathy with what appears to be a facet cyst. There is also disc bulging effacing the bilateral S1 nerves. At L4-5 she again has a slip as well as concordant central stenosis. I did tell her that some of her symptoms could be derived from the central stenosis however if we were to talk surgery because of the listhesis that she has it would be a fusion based type of her procedure to which she does not want. Furthermore because the bulk of her symptoms are actually the right buttocks region which I think may be a manifestation of piriformis syndrome we will refer her to Dr. Pham for piriformis syndrome evaluation. We did discuss that if her right buttock pain were to resolve that she would be quite happy with this and therefore we will send her for evaluation for piriformis syndrome with Dr. Stone. With respect to her legs a question of is deconditioning versus that coming from the central stenosis and therefore we will start other nonoperative means to include therapy. Will have her come back in 6 to 8 weeks to see how she is doing. All questions were answered to satisfaction as patient as well as her daughter Carole. Author Ruddy Stone [facility] HospitalAuthoredDebanner 2024 3:35pmI agree the patient has significant piriformis syndrome on the right. She has findings consistent with this on examination today. Location of her pain is over the piriformis. I recommended localized steroid injection under ultrasound guidance and patient agreed to it. Injection was performed today in the office and aftercare instruction detail the patient. I recommended rehab exercises to be done starting in 2 to 3 days and handout for this was given. She will follow-up as needed for this issue. Author Dana Tapia [facility] HospitalAuthoredSeptsage [facility] hospital 2024 1:42pmPlease check blood pressure daily and record DASH [...] call the office to get an appt Author Dana Tapia [facility] HospitalAuthoredOctober 2024 1:38pmhad MRI lumbar spine as well as plain film results show disc bulge and mod severe canal stenosis reviewed MRI with pt Please check blood pressure daily and record DASH diet Limit caffeine Take medication as directed Contact office if chest pain, pressures, dizziness, shortness of breath, swelling in the legs Recommend slow position changes if you develop dizziness with position changes current meds: losartan, Discussed with patient their BMI (actual vs recommended). We have discussed lifestyle modifications: attempts to perform phsyical activity as chronic conditions allow, monitor dietary intake: increasing protein/fruits/veggies and lowering carb intake (unless contraindicated). Limit sodas, juices, sugary drinks, as well as alcohol consumption. Future Tests Future scheduled test information is unavailable Pending Tests Test Name Ordered Date Scheduled Date XR lumbar spine min 4V* November 21, 2024 4:2 2pm Future Visits Future appointment information is unavailable Future Procedures Future procedure information is unavailable Future Medications Future medication information is unavailable Patient Instructions Patient instructions are unavailable
--- OUTSIDE RECORDS SUMMARY | 2025-02-08 09:19 | XMS_ITS | CCD ---
Author Organization [facility] Care Team Providers Care Commercial Makeup Artist Name Role Phone SULY SANTOS Unavailable Unavailable SULY SANTOS Unavailable Unavailable SULY SANTOS Unavailable Unavailable JACKLYN STARR Unavailable Unavailable Natalee Camacho Unavailable Mapus, Tondra Unavailable Buck, Eboni Unavailable Kristin Cardoso Unavailable AICHHOLZ, HUMAN RESOURCES TRAINING MANAGER DANA Admitting Unavailable AICHHOLZ, HUMAN RESOURCES TRAINING MANAGER DANA Attending Unavailable AICHHOLZ, HUMAN RESOURCES TRAINING MANAGER DANA Primary Care Unavailable DR ANDRÉS HANCOCK V Consulting Unavailable AICHHOLZ, HUMAN RESOURCES TRAINING MANAGER DANA Consulting Unavailable MAPUS, TONDRA Admitting Unavailable MAPUS, TONDRA Attending Unavailable AICHHOLZ, HUMAN RESOURCES TRAINING MANAGER DANA Primary Care Unavailable MAPUS, TONDRA Consulting Unavailable BUCK, EBONI Admitting Unavailable BUCK, EBONI Attending Unavailable AICHHOLZ, HUMAN RESOURCES TRAINING MANAGER DANA Primary Care Unavailable BUCK, EBONI Consulting Unavailable BUCK, EBONI Admitting Unavailable BUCK, EBONI Attending Unavailable AICHHOLZ, HUMAN RESOURCES TRAINING MANAGER DANA Primary Care Unavailable AICHHOLZ, HUMAN RESOURCES TRAINING MANAGER DANA Consulting Unavailable BUCK, EBONI Consulting Unavailable AICHHOLZ, HUMAN RESOURCES TRAINING MANAGER DANA Admitting Unavailable AICHHOLZ, HUMAN RESOURCES TRAINING MANAGER DANA Attending Unavailable AICHHOLZ, HUMAN RESOURCES TRAINING MANAGER DANA Primary Care Unavailable AICHHOLZ, HUMAN RESOURCES TRAINING MANAGER DANA Consulting Unavailable AICHHOLZ, HUMAN RESOURCES TRAINING MANAGER DANA Admitting Unavailable AICHHOLZ, HUMAN RESOURCES TRAINING MANAGER DANA Attending Unavailable AICHHOLZ, HUMAN RESOURCES TRAINING MANAGER DANA Primary Care Unavailable AICHHOLZ, HUMAN RESOURCES TRAINING MANAGER DANA Consulting Unavailable BUCK, EBONI Admitting Unavailable BUCK, EBONI Attending Unavailable AICHHOLZ, HUMAN RESOURCES TRAINING MANAGER DANA Primary Care Unavailable BUCK, EBONI Consulting Unavailable MAPUS, TONDRA Admitting Unavailable MAPUS, TONDRA Attending Unavailable AICHHOLZ, HUMAN RESOURCES TRAINING MANAGER DANA Primary Care Unavailable MAPUS, TONDRA Consulting Unavailable BUCK, EBONI Admitting Unavailable BUCK, EBONI Attending Unavailable AICHHOLZ, HUMAN RESOURCES TRAINING MANAGER DANA Primary Care Unavailable BUCK, EBONI Consulting Unavailable Aichholz CORN POPPER, Dana Unavailable Lex Martinez MD Primary Care Provider NO FAMILY, PHYSICIAN Primary Care Provider Unava ilable Mapus, PONY CYLINDER PRESS OPERATOR Tondra K Attending Provider NO FAMILY, PHYSICIAN Primary Care Provider Unava ilable Mapus, PONY CYLINDER PRESS OPERATOR Tondra K Attending Provider Aichholz CORN POPPER, Dana Unavailable Jimbo VALE, Lex Primary Care Provider [phone] AICHHOLZ, DANA J Referring Unavailable AICHHOLZ, DANA J Primary Care Unavailable AICHHOLZ, DANA J Referring Unavailable AICHHOLZ, DANA J Primary Care Unavailable TONIE, JEFFREY A Attending Unavailable TONIE, JEFFREY A Referring Unavailable AICHHOLZ, DANA J Primary Care Unavailable TONIE, JEFFREY A Referring Unavailable AICHHOLZ, DANA J Primary Care Unavailable TONIE, JEFFREY A Admitting Unavailable TONIE, JEFFREY A Attending Unavailable TONIE, JEFFREY A Referring Unavailable AICHHOLZ, DANA J Primary Care Unavailable ANDRÉS VAZQUEZ Attending Unavailable AICHHOLZ, DANA J Primary Care Unavailable MAPUS, TONDRA K Referring Unavailable AICHHOLZ, DANA J Primary Care Unavailable AICHHOLZ, DANA J Primary Care Unavailable CARLOS JASON Attending Unavailable Lex Martinez MD Primary Care Provider Mapus PONY CYLINDER PRESS OPERATOR, Tondrjian K Attending Provider Aichholz PONY CYLINDER PRESS OPERATOR-HUMAN RESOURCES TRAINING MANAGER, Dana Miguelina Primary Care Provider Aichholz CORN POPPER, Dana Unavailable Aichholz PONY CYLINDER PRESS OPERATOR-HUMAN RESOURCES TRAINING MANAGER, Dana Miguelina Primary Care Provider Lex Martinez MD Primary Care Provider Eboni White MD Attending Provider Bernardino Talavera APRN Attending Provider CARLOS BAER Attending Unavailable BUDDYLEO [...] DANIEL Referring Unavailable AICHHOLZ, DANA Attending Unavailable RUSHER, CARLOS España Attending Unavailable AICHHOLZ, DANA Attending Unavailable RUSHER, CARLOS [place] Attending Unavailable PULIDO, MAY Corrales Attending Unavailable BUDDY, LEO Mcintyre Attending Unavailable PULIDO, MAY T Referring Unavailable AICHHOLZ, DANA Attending Unavailable BUDDYLEO BONE Attending Unavailable PULIDO, MAY T Referring Unavailable JORGE, JESENIA Attending Unavailable PULIDO, MAY T Referring Unavailable JORGE, JESENIA Attending Unavailable PULIDO, MAY T Referring Unavailable JORGE, JESENIA Attending Unavailable PULIDO, MAY T Referring Unavailable PULIDO, MAY Corrales Attending Unavailable BUDDYLEO BONE Attending Unavailable PULIDO, MAY T Referring Unavailable JORGE, JESENIA Attending Unavailable PULIDO, MAY T Referring Unavailable BUDDYLEO BLACK Attending Unavailable PULIDO, MAY T Referring Unavailable JORGE, JESENIA Attending Unavailable PULIDO, MAY T Referring Unavailable JORGE, JESENIA Attending Unavailable PULIDO, MAY T Referring Unavailable CHRISTINE URIBE Attending Unavailable PULIDO, MAY T Referring Unavailable BUDDY, LEO J Attending Unavailable MAY PULIDO Referring Unavailable MAY PULIDO Attending Unavailable MAY PULIDO Referring Unavailable LEO GOODWIN Attending Unavailable JESENIA JORGE Attending Unavailable MAY UPLIDO Referring Unavailable JEFFREY SCHILLING Attending Unavailable AICHHOLZ, DANA Attending Unavailable CARLOS BAER Attending Unavailable AICHHOLZ, DANA Attending Unavailable AICHHOLZ, DANA Attending Unavailable AICHHOLZ, DANA Attending Unavailable AICHHOLZ, DANA Attending Unavailable Lex Martinez MD Primary Care Provider [phone] AicDana haider Attending Provider [phone] DANIEL WOLF P Attending Unavailable AICHHOLZ, DANA J Referring Unavailable AICHHOLZ, DANA J Primary Care Unavailable ASSENMACHERCHRISTINAIG P Referring Unavailable AICHHOLZ, DANA J Primary Care Unavailable ASSENMACHERCHRISTINAIG P Referring Unavailable AICHHOLZ, DANA J Primary Care Unavailable ASSENMACHERCHRISTINAIG P Admitting Unavailable ASSENMACHERCHRISTINAIG P Attending Unavailable AICHHOLZ, DANA J Primary Care Unavailable ASSENMACHER, DANIEL P Attending Unavailable AICHHOLZ, DANA J Referring Unavailable AICHHOLZ, DANA J Primary Care Unavailable ASSENMACHER, DANIEL P Referring Unavailable AICHHOLZ, DANA J Primary Care Unavailable ASSENMACHER, DANIEL P Attending Unavailable AICHHOLZ, DANA J Referring Unavailable AICHHOLZ, DANA J Primary Care Unavailable ASSENMACHERCHRISTINAIG P Attending Unavailable AICHHOLZ, DANA J Referring Unavailable AICHHOLZ, DANA J Primary Care Unavailable ASSENMACHER, DANIEL P Attending Unavailable AICHHOLZ, DANA J Referring Unavailable AICHHOLZ, DANA J Primary Care Unavailable ASSENMACHER, DANIEL P Attending Unavailable AICHHOLZ, DANA J Referring Unavailable AICHHOLZ, DANA J Primary Care Unavailable ASSENMACHER, DANIEL P Referring Unavailable AICHHOLZ, DANA J Primary Care Unavailable Aichholz CORN POPPER-C, Dana Mcintyre Attending Provider [phone] Aicpatricia CORN POPPER-CDana Primary Care Provider [phone] Dana Tapia Admitting Unavailable Dana Tapia Primary Care Unavailable Dana Tapia Attending Unavailable Bernardino Talavera Admitting Unavailable Bernardino Talavera Attending Unavailable Lex Martinez Primary Care Unavailable Lex Martinez MD Primary Care Provider Willie CORN POPPER, Dana Unavailable Lex Martinez MD Primary Care Provider Willie CORN POPPER, Dana Unavailable Allergies Allergy ClassificationReported Allergen(s)Allergy TypeDate of OnsetReaction(s) Facility (20 sources)Sulfamethoxazole / TrimethoprimDrug Allergymakerist Other (20 sources)semaglutide; Translations: [SEMAGLUTIDE]Drug Iuscxpb67-70-7691 [facility] (13 sources)Soy Protein ShakeDrug allergyRockstar SolosSalem [facility] edPULSE Other (20 sources)metFORMIN; Translations: [METFORMIN]Drug Afsbded81-82-8233u/i s/e [facility] (5 sources)Soy BalanceDrug allergyroosevelt general hospitalCoachUpst. louis children's hospital edPULSE Other (20 sources)Sulfonamides (Antibiotic)Drug Mxgvhqp89-82-4943UzkavCenterpoint Medical Center (20 sources)Wound Dressing AdhesiveDrug Txrvnit25-48-0552FhvjtshMNPH Healthcare (20 sources)Soy protein; Translations: [SOY]Allergy to zmxhfzuee58-00-9721Qabxub [facility] (11 sources)Sulfamethoxazole; Translations: [sulfamethoxazole]Drug Allergy 40-30-7375dmvwYxilvbdgpThe [facility] (11 sources)Trimethoprim; Translations: [trimethoprim]Drug Bqwrqxo30-75-9255gyqqTriHealth (20 sources)Soy proteinAllergy to fjtlyhusf16-91-3570NiojkexIKAD Healthcare (20 sources)OtherAllergy to pukjkcxuj94-61-7726XomxsqfMKLJ Healthcare (20 sources)SemaglutideAllergy to -31-9088NvmpwglzQRIC Healthcare (3 sources)Sulfonamides (Antibiotic); Translations: [SULFA (SULFONAMIDE ANTIBIOTICS)]Propensity to adverse reactions to drug (disorder)10-28-2016 [facility] (13 sources)ADHESIVE TAPE-SILICONES; Translations: [ADHESIVE TAPE-SILICONES] Propensity to adverse reactions to drug (disorder)87-16-6754ZwaYfbhjc Repository (12 sources)Soy proteinAllergy to taditzfrv21-19-8904MveyiccYSVW Healthcare (20 sources)Soy proteinAllergy to gzlahaygn86-10-0844LrqtjjyDYEB Healthcare (1 source)metFORMINDrug Mvzhehw43-65-4028DrpusfjylTr[facility] (1 source)semaglutideDrug allergy (disorder)48-33-9504CduphdlywTr[facility] Medications Current Medications MedicationDrug Class(es)DatesSig (Normalized)Sig (Original)acetaminophen 80 mg rectal suppository (2 sources)acetaminophen (Tylenol) 80 MG suppository Insert into the rectum every 6 (six) hours if needed for mild pain or fever. 0 Activeacetaminophen 500 mg / diphenhydrAMINE hydrochloride 25 mg oral tablet (20 sources)Histamine-1 Receptor AntagonistStart: 85-81-5474nitt 25-500 mg by mouth once as neededdiphenhydrAMINE-acetaminophen (Tylenol PM) 25-500 MG per tablet Take 2 tablets by mouth as needed at bedtime 06/13/2023 ActiveStart: 10-42-8975dzeq 2 tablets by mouth once dailyalendronic acid 70 mg oral tablet (20 sources)BisphosphonateStart: 38-00-6850nlyy 1 tablet by mouth every week Start: 03-08-2023 End: 67-07-8310knte 1 tablet by mouth in the morningalendronate (Fosamax) 70 MG tablet Indications: Osteoporosis Take 1 tablet (70 mg) by mouth every 7(seven) days Take in the morning with a full glass of water, on an empty stomach, and do not take anything else by mouth or lie down for the next 30 min. 12 tablet 1 07/12/2024 ActiveamLODIPine 5 mg oral tablet (20 sources)Dihydropyridine Calcium Channel BlockerStart: 06-13-2023 End: 16-17-0173hftf 1 tablet by mouth once dailyStart: 13-10-2410bcqu 1 tablet by mouth in the morningamLODIPine (Norvasc) 5 MG tablet Take 5 mg by mouth in the morning. 0 06/28/2022 ActiveStart: 60-77-0330yncw 0.5 tablet by mouth in the morningamLODIPine (NORVASC) 10 mg tablet Take 0.5 tablets (5 mg total) by mouth in the morning. 3 08/08/2016 Activeamoxicillin 500 mg oral capsule (4 sources)Penicillin-class AntibacterialStart: 07-11-2024 End: 53-58-9014ylouqbcszxi (Amoxil) 500 MG capsule Take 2 capsules 1 hour prior to dental cleaning, then take 2 capsules every 12 hours after cleaning until gone 07/11/2024 07/13/2024 Activeamoxicillin 875 mg / clavulanate 125 mg oral tablet (2 sources)Penicillin-class AntibacterialStart: 02-06-2024 End: 66-72-7186cfqv 1 tablet by mouth in the morningamoxicillin-clavulanate (Augmentin) 875-125 MG tablet Indications: Acute non-recurrent pansinusitisTake 1 tablet (875 mg) by mouth in the morning and 1 tablet (875 mg) before bedtime. Do all this for 10 days. 20 tablet 02/06/2024 02/16/2024 Activeascorbic acid 1000 mg oral tablet (20 sources)Vitamin CStart: 17-54-0032tgmi 1 g by mouth once dailyStart: 23-00-6135pqxr 1 g by mouth once dailyAscorbic Acid (Vitamin C) Active 1 GM PO Daily June 13, 2023 12:00amaspirin 81 mg delayed release oral tablet (20 sources)Platelet Aggregation Inhibitor, Nonsteroidal Anti-inflammatory Drug Start: 15-60-4919prpb 1 tablet by mouth once daily in the morningaspirin 81 mg Indications: Rotator cuff arthropathy of right shoulder Take 1 tablet (81 mg total) by mouth in the morning. Begin taking day AFTER total joint replacement. 30 tablet 03/06/2024 ActiveStart: 03-99-0636iwhr 1 tablet by mouth once daily take 1 tablet by mouth every twenty-four hoursAspirin 81 MG 1 tablet Orally Once a day for 30 day(s) Activeatorvastatin 20 mg oral tablet (20 sources)HMG-CoA Reductase InhibitorStart: 05-01-2021 End: 99-24-6281nznp 1 tablet by mouth once dailyBenadryl Allergy 25 MG (1 source)Start: 44-95-1605nshs 1 capsule by mouth once daily at bedtime as neededBenadryl Allergy 25 MG 1 capsule at bedtime as needed Orally Once a day for 30 day(s) As needed forrash and itching Aug, Activecalcium carbonate 1500 mg / cholecalciferol 800 unt oral tablet (19 sources)Vitamin DStart: 88-03-2803szic 1 tablet by mouth twice dailytake 1 tablet by mouth once in the morningcalcium carbonate-vitamin D3 (OSCAL 500 + D) 500 mg(1,250mg) -200 units per tablet Take 1 tablet bymouth in the morning and 1 tablet in the evening. Take with meals. ActiveCalcium Carbonate / Vitamin D (20 sources)Calcium Carbonate-Vitamin D (CALTRATE 600+D PO) ActiveCalcium Carbonate-Vitamin D (CALTRATE 600+D PO) Caltrate 600+D ActiveCalcium Carbonate- Vitamin D (CALTRATE 600+D PO) Caltrate 600+D 0 ActiveCaltrate 600+D 600-400 MG-UNIT (20 sources)take 1 tablet by mouth twice dailyCaltrate 600+D 600-400 MG-UNIT 1 TABLET Orally TWICE A DAY Activetake 2 tablets by mouth twice dailyCaltrate 600+D 600-400 MG-UNIT 2 tablet Orally TWICE A DAY Activetake 2 tablets by mouth once dailyCaltrate 600+D 600-400 MG-UNIT 2 tablet Orally daily Activecetirizine hydrochloride 10 mg oral tablet (20 sources)Histamine-1 Receptor AntagonistStart: 60-83-3685wlnl 1 tablet by mouth once dailyStart: 22-11-1793xiohdihpcs (ZyrTEC) 10 mg tablet 4 08/18/2016 Activecholecalciferol 0.05 mg oral capsule (20 sources)Vitamin DStart: 85-37-8897guce 1 capsule by mouth once daily cholecalciferol (Vitamin D-3) 50 MCG (1999 UT) tablet Activetake 1 capsule by mouth in the morningcholecalciferol, vitamin D3, 2,000 units capsule Take 1 capsule (2,000 Units total) by mouth in themorning. Activecholecalciferol (Vitamin D-3) 50 MCG (2000 UT) tablet Vitamin D3 Activetake 1 capsule by mouth every twenty-four hoursVitamin D 50 MCG (1999 UT) 1 capsule Orally Once a day for 30 day(s) Activedocosahexaenoic acid 120 mg / eicosapentaenoic acid 180 mg oral capsule (20 sources)Start: 31-65-1131mbjm oil-omega-3 fatty acids 1000 MG capsule 06/13/2023 ActiveStart: 25-46-6946kpcs oil-omega-3 fatty acids 1000 MG capsule Twice daily 06/13/2023 Activeomega-3 (fish oil) 1000 MG capsule 1 capsule 1 (one) time each day at the same time. 0 ActiveDOCOSAHEXANOIC ACID/EPA (FISH OIL ORAL) (10 sources)DOCOSAHEXANOIC ACID/EPA (FISH OIL ORAL) Take by mouth in the morning. ActiveDOCOSAHEXANOIC ACID/EPA (FISH OIL ORAL) Take by mouth daily. ActiveDULoxetine 60 mg delayed release oral capsule (20 sources)Serotonin and Norepinephrine Reuptake InhibitorStart: 07-12-2024 End: 62-08-8180xjxe 1 capsule by mouth once dailyStart: 11-28-2023 End: 60-90-7026yhpd 1 capsule by mouth onceDuloxetine 30 mg capsule,delayed release(DR/EC) Discontinued 30 MG PO Once December 12, 2023 12:00am September 04, 2024 2:36pmferrous sulfate 325 mg oral tablet (20 sources)Start: 06-06-2024 End: 97-72-8172Vbkja: 05-27-2021 End: 38-51-9163Nanynaw Sulfate 325 mg (65 mg iron) tablet Discontinued 325 MG PO Every 48 hours June 13, 2023 12:00am July 27, 2023 4:45pmtake 1 tablet by mouth every other dayferrous sulfate 325 (65 Fe) MG tablet Take 1 tablet by mouth every other day Activetake 1 tablet by mouth every other dayFerrous Sulfate 325 (65 Fe) MG TAKE 1 TABLET BY MOUTH EVERY OTHER DAY for 90 Activetake 1 tablet by mouth every other dayFerrous Sulfate 325 (65 Fe) MG TAKE 1 TABLET BY MOUTH EVERY OTHER DAY 90 for 90 ActiveFinerenone 10 MG (13 sources)Start: 14-35-5303nltg 1 tablet by mouth once dailyFinerenone 10 MG 1 tablet Orally Once a day for 90 days Nov, ActiveStart: 28-84-6005lrqp 1 tablet by mouth once dailyFinerenone 10 MG 1 tablet Orally Once a day for 90 day(s) Nov, ActiveStart: 89-59-7001ceuj 1 tablet by mouth once daily Finerenone 10 MG 1 tablet Orally Once a day for 30 day(s) Nov, Active take 1 tablet by mouth once dailyFinerenone 10 MG 1 tablet Orally Once a day for 30 days Activefinerenone 10 MG Oral Tablet [Kerendia] (2 sources)take 1 tablet by mouth once dailyKerendia 10 MG TAKE 1 TABLET BY MOUTH EVERY DAY for 90 Activetake 1 tablet by mouth every twenty-four hours Kerendia 10 MG 1 tablet Orally Once a day Activefluticasone propionate 0.05 mg/actuat metered dose nasal spray (10 sources)Corticosteroidfluticasone (FLONASE) 50 mcg/actuation nasal spray Administer 1 spray into each nostril as needed. Activegabapentin 100 mg oral capsule (20 sources)Anti-epileptic AgentStart: 18-23-7626quye 1 capsule by mouth three times dailyStart: 09-24-2016 End: 63-59-0459jlue 1 capsule by mouth once dailyGabapentin 100 mg capsule Discontinued 100 MG PO Daily June 13, 2023 12:00am November 19, 2024 1:26pmGabapentin Activekerendia 10 mg tablet (1 source)take 1 tablet by mouth once dailyKerendia 10 MG TAKE 1 TABLET BY MOUTH EVERY DAY for 90 ActiveKerendia 10 MG tablet (2 sources)take 1 tablet by mouth in the morningKerendia 10 MG tablet Take 10 mg by mouth in the morning. 0 Activelatanoprost 0.05 mg/ml ophthalmic solution (20 sources)Prostaglandin AnalogStart: 23-26-6919nruz 1 drop(s) into the eye(s) once daily in the eveningStart: 90-88-3015zpsx 1 drop(s) into the eye(s) once daily in the eveningLatanoprost Active 1 DROPS OPHTHALMIC Daily June 13, 2023 12:00am FreeTextSi drop into affected eye in the evening Ophthalmic Once a day; Note: Source Status: Taking; Provider: Sadaf LebronNPI: [id number]) Start: 27-92-0407pvgpvneqonj (Xalatan) 0.005 % ophthalmic solution 07/20/2022 ActiveStart: 92-90-3714pnhh 1 drop(s) into the eye(s) once daily in the evening latanoprost (Xalatan) 0.005 % ophthalmic solution INSTILL 1 DROP INTO BOTH EYES EVERY EVENING DIRECTED 07/20/2022 Activetake 1 drop(s) into the eye(s) once daily in the eveningLatanoprost 0.005 % 1 drop into affected eye in the evening Ophthalmic Once a day Activelosartan potassium 100 mg oral tablet (20 sources)Angiotensin 2 Receptor BlockerStart: 07-05-2021 End: 33-90-6616wrko 1 tablet by mouth once dailyMagnesium (20 sources)magnesium 250 MG tablet 1 (one) time each day at the same time Activemagnesium 250 MG tablet 1 (one) time each day at the same time. Active magnesium 250 MG tablet 1 (one) time each day at the same time. 0 Activetake 1 tablet by mouth once dailyMagnesium 250 MG 1 tablet with a meal Orally Once a day Activemagnesium carbonate 250 mg oral capsule (10 sources)take 250 mg by mouth in the morningMAGNESIUM CARBONATE ORAL Take 250 mg by mouth in the morning. Activemagnesium oxide 250 mg oral tablet (9 sources)Start: 90-25-5596dgyw 1 tablet by mouth once dailymelatonin 10 mg oral tablet (20 sources)Start: 01-11-9656zxlw 2 tablets by mouth once daily at bedtimeStart: 12-42-0552ebjq 20 mg by mouth once daily at bedtimeMelatonin Active 20 MG PO Daily at bedtime June 13, 2023 12:00ammelatonin tablet Take by mouth at bedtime Activemelatonin tablet Take by mouth nightly. ActiveMelatonin 10 MG as directed Orally ActiveMelatonin 10 MG as directed Orally ActiveMelatonin + L- Theanine - (7 sources)Melatonin + L-Theanine - as directed Orally Activemeloxicam 15 mg oral tablet (20 sources)Nonsteroidal Anti-inflammatory DrugStart: 10-17-2016 End: 39-79-8973mjra 1 tablet by mouth once daily24 hr metFORMIN hydrochloride 500 mg extended release oral tablet (11 sources)Biguanidetake 1 tablet by mouth every twenty-four hoursmetFORMIN HCl ER 500 MG 1 tablet Orally Daily ActivemethylPREDNISolone 4 mg oral tablet (1 source)CorticosteroidStart: 34-03-9690Brgsri 4 MG as directed Orally as directed for 6 days Aug, ActiveMultiple Vitamins-Minerals (One Daily For Women 50+ Adv) tablet (20 sources)Multiple Vitamins-Minerals (One Daily For Women 50+ Adv) tablet Activetake 1 tablet by mouth once dailyMultiple Vitamins-Minerals (One Daily For Women 50+ Adv) tablet as directed Orally Activetake 1 tablet by mouth once dailyMultiple Vitamins-Minerals (One Daily For Women 50+ Adv) tablet as directed Orally 0 Hgapqpebbtexqd-mgks-OY-calcium &mins (THERAGRAN-M) 9 mg iron-400 mcg tablet (10 sources)pjefrrdz-ftxw-FK-calcium &mins (THERAGRAN-M) 9 mg iron-400 mcg tablet Take 1 tablet by mouth inthe morning. ActiveMultivitamin (One Daily Essential) tablet (9 sources)Start: 29-24-3897cwot 1 tablet by mouth once dailyStart: 06-13-2023 take 1 tablet by mouth once dailyMultivitamin (One Daily Essential) tablet Active 1 TAB PO Daily June 13, 2023 12:00am Complies with drug therapyStart: 98-58-5510xdcw 1 tablet by mouth once dailyMultivitamin (One Daily Essential) tablet Active 1 TAB PO Daily June 12, 2023 11:00pmStart: 52-19-4187nzlu 1 tablet by mouth once dailyMultivitamin (One Daily Essential) tablet Active 1 TAB PO Daily June 13, 2023 12:00amOmega 3 1000 MG (20 sources)take 1 capsule by mouth once dailyOmega 3 1000 MG 1 capsule Orally Once a day ActiveOmega-3 Fatty Acids (3 sources)Start: 37-19-9156lahf 1000 mg by mouth twice dailyOmega-3 Fatty Acids Active 1000 MG PO Twice daily June 13, 2023 12:00amOmega-3 Fatty Acids 1,000 mg capsule (6 sources)Start: 16-18-1059jvme 1 capsule by mouth twice dailyStart: 06-13-2023 take 1 capsule by mouth twice dailyOmega-3 Fatty Acids 1,000 mg capsule Active 1000 MG PO Twice daily June 13, 2023 12:00am Complies with drug therapyStart: 86-51-3699txgq 1 capsule by mouth twice dailyOmega-3 Fatty Acids 1,000 mg capsule Active 1000 MG PO Twice daily June 13, 2023 12:00amStart: 06-13-2023 take 1 capsule by mouth twice dailyOmega-3 Fatty Acids 1,000 mg capsule Active 1000 MG PO Twice daily June 12, 2023 11:00pmomeprazole 20 mg delayed release oral capsule (20 sources)Proton Pump InhibitorStart: 08-11-2016 End: 75-37-6143oguh 1 capsule by mouth once dailyondansetron 4 mg disintegrating oral tablet (20 sources)Serotonin-3 Receptor AntagonistStart: 02-20-2024 End: 07-02-4994bgfj 1 tablet by mouth every eight hours as neededondansetron ODT (Zofran-ODT) 4 MG disintegrating tablet Take 4 mg by mouth every 8 (eight) hours ifneeded 02/20/2024 ActiveOne Daily For Women 50+ Adv - (20 sources)One Daily For Women 50+ Adv - as directed Orally ActivetraMADol hydrochloride 50 mg oral tablet (20 sources)Opioid AgonistStart: 52-35-6347zmzj 1 tablet by mouth once daily at bedtime as neededStart: 32-83-9077vnfb 1 tablet by mouth every six hours as needed for paintraMADoL (ULTRAM) 50 mg tablet Indications: S/P reverse total shoulder arthroplasty, right Take 1 tablet (50 mg total) by mouth every 6 (six) hours as needed for pain. 28 tablet 06/07/2024 Activetriamcinolone acetonide 0.055 mg/actuat metered dose nasal spray (18 sources)Corticosteroidtake 1 spray(s) nasal route once daily as needed Nasacort Allergy 24HR 55 MCG/ACT 1 spray in each nostril Nasally Once a day PRN ONLY ActiveVitamin B12 1000 MCG (7 sources)take 1 tablet by mouth once dailyVitamin B12 1000 MCG 1 tablet Orally Once a day ActiveVitamin C 1000 MG (13 sources)take 1 tablet by mouth once dailyVitamin C 1000 MG 1 tablet Orally Once a day for 30 day(s) ActiveVitamin D 50 MCG (2000 UT) (19 sources)take 1 capsule by mouth once dailyVitamin D 50 MCG (1999) 1 capsule Orally Once a day for 30 day(s) Active Completed/Discontinued Medications MedicationDrug Class(es)DatesSig (Normalized)Sig (Original)dapagliflozin 5 mg oral tablet (20 sources)Sodium-Glucose Cotransporter 2 InhibitorStart: 12-21-2021 End: 37-73-0375wpen 1 tablet by mouth once dailyDapagliflozin Propanediol (Farxiga) 5 mg tablet Discontinued 5 MG PO Daily June 13, 2023 12:00amJuly 2023 1:42pmFinerenone (18 sources)Start: 05-11-2023 End: 82-72-9078pvgt 1 tablet by mouth once dailyFinerenone 10 mg tablet Discontinued 10 MG PO Daily May 11, 2023 5:55pm June 14, 2023 4 :23pmStart: 05-11-2023 End: 99-39-8696trzy 1 tablet by mouth once dailyFinerenone 10 mg tablet Discontinued 10 MG PO Daily May 11, 2023 4:55pm June 14, 2023 3 :23pmStart: 05-11-2023 End: 22-98-4600gkss 10 mg by mouth once dailyFinerenone Discontinued 10 MG PO Daily May 11, 2023 5:55pm June 14, 2023 4:23pmStart: 97-49-1931kmyr 10 mg by mouth once dailyFinerenone Active 10 MG PO Daily May 11, 2023 5:55pmStart: 05-11-2023 End: 03-76-3899iryi 1 tablet by mouth once dailyFinerenone 10 mg tablet Discontinued 1 TAB PO Daily May 11, 2023 12:00am May 11, 2023 5:58pm FreeTextSig: TAKE 1 TABLET BY MOUTH EVERY DAY; Note: Source Status: Taking; Refills: 1; Qty: 90 Tablet; Provider: Buck Lyn ( )Start: 05-11-2023 End: 41-38-8315vkpf 1 tablet by mouth once dailyFinerenone 10 mg tablet Discontinued 1 TAB PO Daily May 10, 2023 11:00pm May 11, 2023 4:58pm FreeTextSig: TAKE 1 TABLET BY MOUTH EVERY DAY; Note: Source Status: Taking; Refills: 1; Qty: 90 Tablet; Provider: Buck Lyn ( )Start: 05-11-2023 End: 09-64-8402yojy 1 tablet by mouth once dailyFinerenone Discontinued 1 TAB PO Daily May 11, 2023 12:00am May 11, 2023 5:58pm FreeTextSig: TAKE 1 TABLET BY MOUTH EVERY DAY; Note: Source Status: Taking; Refills: 1; Qty: 90 Tablet; Provider: Buck Lyn ( )KERENDIA 10 mg tablet (1 source)Start: 01-18-2022 End: 26-94-2378tygk 1 tablet by mouth in the morningKERENDIA 10 mg tablet Take 1 tablet by mouth in the morning. 01/18/2022 03/21/2024 Discontinued (Therapy completed)Ozempic 0.25 or 0.5 MG/DOSE (7 sources)inject 0.5 mg by subcutaneous injection every weekOzempic 0.25 or 0.5 MG/DOSE 0.5mg sq Subcutaneous once weekly Not-Takinginject 0.5 mg by subcutaneous injection every weekOzempic 0.25 or 0.5 MG/DOSE 0.5mg sq Subcutaneous once weekly ActivePhillips [facility] - (2 sources)[facility] - as directed Orally Not-TakingPhillips Colon Health - as directed Orally Activesertraline 50 mg oral tablet (20 sources)Serotonin Reuptake InhibitorStart: 02-27-2023 End: 18-12-3326gjln 1 tablet by mouth once dailySertraline 50 mg tablet Discontinued 50 MG PO Daily June 13, 2023 12:00am December 12, 2023 2:20pm Problems Active Problems Problem ClassificationProblemDateDocumented DateEpisodic/Chronic Administrative/social admission (19 sources)Dietary counseling and surveillance; Translations: [Patient encounter status]Onset: 12-17-2020 Resolved: 27-24-7019OncjdzlzAkhscpx disorders (20 sources)Generalized anxiety disorder; Translations: [Generalized anxiety disorder]Onset: 022818-82-0192XyasaggFwaqge of ovary (20 sources)Malignant tumor of ovary; 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]Onset: 02-28-1994 Resolved: 241137-84-1627NnerfeoIiambmwl (20 sources)Cataract; Translations: [Unspecified cataract]Onset: 07-07-2021 78-49-8077FormuyyYwqgooa kidney disease (20 sources)Chronic kidney disease stage 3; Translations: [Chronic kidney disease, stage 3 (moderate)]Onset: 02-07-2023 Resolved: 565947-76-3851HzcgjmkSehnoug kidney disease (20 sources)Chronic kidney disease; Translations: [Chronic kidney disease, stage III (moderate)]Onset: 12-23-2020 Resolved: 74-95-4869Twrkqwgsbw and other anemia (20 sources)Anemia of renal disease; Translations: [Anemia in chronic kidney disease]ChronicDiabetes mellitus with complications (20 sources)Disorder of kidney due to diabetes mellitus; Translations: [Type 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]Onset: 12-17-2020 Resolved: 63-90-4737HucudidWevhsdpd mellitus without complication (20 sources)Type 2 diabetes mellitus without complication; Translations: [Type 2 diabetes mellitus without complications]Onset: hronic Disorders of lipid metabolism (20 sources)Hyperlipidemia; Translations: [Hyperlipidemia, unspecified]Onset: 05-18-2016 Resolved: 19-14-4673LqkwnbtR Codes: Fall (1 source)Unspecified fall, initial encounter; Translations: [Unspecified fall, initial encounter]Onset: 63-04-8619NcecbbjiRxxjmqjevi disorders (20 sources)Gastroesophageal reflux disease; Translations: [Gastro-esophageal reflux disease without esophagitis]Onset: 891249-36-5135GfwrvgyGqprgdhjj hypertension (20 sources)Essential hypertension; Translations: [Essential (primary) hypertension]Onset: 05-18-2016 Resolved: 08-98-6505ZecotvqWpbhopittgbh with complications and secondary hypertension (20 sources)Benign arteriolar nephrosclerosis; Translations: [Hypertensive chronic kidney disease with stage 1 through stage 4 chronic kidney disease, or unspecified chronic kidney disease]Onset: 12-23-2020 Resolved: 45-47-2922JxlvmqkKnepahc (5 sources)Onychomycosis due to dermatophyte ; Translations: [Tinea unguium] 38-14-7714CxieaowuNqyrxxlagef deficiencies (20 sources)Vitamin D deficiency; Translations: [Vitamin D deficiency, unspecified]Onset: 378415-82-4269OsoyxyuZxuhayjjonnake (20 sources)Arthritis; Translations: [Unspecified osteoarthritis, unspecified site]Onset: 194736-59-5912NtzwqmkRajuooljaafs (20 sources)Senile osteoporosis; Translations: [Age-related osteoporosis without current pathological fracture]Onset: 789720-66-5906CcyhrxpAgflt aftercare (4 sources)Aftercare following joint replacement surgery; Translations: [AFTERCARE FOLLOWING JOINT REPLACEMENTSURGERY]Onset: 69-57-9448QmectjeUxrux connective tissue disease (1 source)Presence of artificial knee joint, bilateral; Translations: [PRESENCE OF ARTIFICIAL KNEE JOINT, BILATERAL]Onset: 73-58-4476YuxexgnUjjde connective tissue disease (20 sources)History of reverse prosthetic total arthroplasty of right shoulder; Translations: [Presence of right artificial shoulder joint]Onset: 04-23-2024 02-65-1830OnrmaxdEglmd connective tissue disease (2 sources)Presence of right artificial shoulder joint; Translations: [Shoulder joint replacement]Onset: 233999-03-1674KkuyrqwQkgql connective tissue disease (10 sources)Pain in toe; Translations: [Pain in right toe(s)]41-30-7073Miqkayvd Other diseases of kidney and ureters (5 sources)Secondary hyperparathyroidism of renal origin; Translations: [Secondary hyperparathyroidism (of renal origin)]Onset: 382063-22-6937 ChronicOther diseases of kidney and ureters (20 sources)Hyperparathyroidism due to renal insufficiency; Translations: [Secondary hyperparathyroidism of renal origin]Onset: ChronicOther injuries and conditions due to external causes (1 source)Unspecified injury of head, initial encounter; Translations: [Unspecified injury of head, initial encounter]Onset: 74-20-2309ErhdxxwqBxvkd liver diseases (1 source)Disease of liver; Translations: [Liver disease, unspecified]03-21-2024 ChronicOther liver diseases (1 source)Liver disease, unspecified; Translations: [Liver disease, unspecified] Onset: 99-11-3388VumehrtMfexe non-traumatic joint disorders (2 sources)Arthropathy; Translations: [Arthropathy, unspecified]12-15-2023 ChronicOther non-traumatic joint disorders (20 sources)Rotator cuff arthropathy of right shoulder; Translations: [Other specific arthropathies, not elsewhere classified, right shoulder]Onset: 827854-29-5762EjagcfdKdmjc non-traumatic joint disorders (1 source)Other specific arthropathies, not elsewhere classified, right shoulder; Translations: [Other specific arthropathies, not elsewhere classified, right shoulder]Onset: 70-22-1369IectbesEylal nutritional; endocrine; and metabolic disorders (20 sources)Body mass index 40+ - severely obese; Translations: [Body mass index (BMI) 40.0-44.9, adult]ChronicOther nutritional; endocrine; and metabolic disorders (20 sources)Obese class II; Translations: [Body mass index (BMI) 38.0-38.9, adult]60-42-9181NpydqgaAdgly nutritional; endocrine; and metabolic disorders (5 sources)Body mass index (BMI) 37.0-37.9, adult; Translations: [BMI 37.0-37.9, adult Z68.37]Onset: 12-17-2020 Resolved: 00-28-3480AmhzafzNpxvm nutritional; endocrine; and metabolic disorders (20 sources)Hypomagnesemia; Translations: [Hypomagnesemia]Onset: 06-20-2023 69-90-0230EcjhervKmndb nutritional; endocrine; and metabolic disorders (7 sources)Hypomagnesemia; Translations: [Disorders of magnesium metabolism] Onset: 27-97-5262HqbotjaLzurp nutritional; endocrine; and metabolic disorders (20 sources)Severe obesity; Translations: [Morbid (severe) obesity due to excess calories]Onset: 339640-50-0507YvphckmDrcqp nutritional; endocrine; and metabolic disorders (20 sources)Body mass index 30+ - obesity; Translations: [Body mass index (BMI) 34.0-34.9, adult]Onset: 91-23-712417720129-09-5617YsldykcAvnmw nutritional; endocrine; and metabolic disorders (1 source)Body mass index (BMI) 34.0-34.9, adult; Translations: [Body Mass Index 34.0-34.9, adult]29-11-7552TlpcrheCptmj nutritional; endocrine; and metabolic disorders (10 sources)Obesity; Translations: [Obesity, unspecified]Onset: 07-07-2021 60-69-5789ArfdmbyOpfsk skin disorders (5 sources)Dystrophia unguium; Translations: [Nail dystrophy]46-38-8739Imurhvqf Residual codes; unclassified (1 source)Pain, unspecified; Translations: [Pain, unspecified]Onset: 01-20-2024 EpisodicResidual codes; unclassified (1 source)PainOnset: 98-00-8619PdhxwlxxErbnmgycvjzi (2 sources)Unknown / UNK(Unknown)Onset: 98-10-7674Zgkktmkghnum (1 source)CHRN KIDNEY DISEASE STG 3 UNSP; Translations: [CHRN KIDNEY DISEASE STG 3 UNSP]Onset: 19-82-0938Swbnmjpojhvw (1 source)Head Injury With Unknown LOCOnset: 76-16-8443Waojrpxytrzu (1 source)Right rotator cuff tearOnset: 00-94-7479Tesstufoxyzw (1 source)Post-opOnset: 65-75-6614Kohzzutsylrn (1 source)Establish CareOnset: 01-19-2024 Past or Other Problems Problem ClassificationProblemDateDocumented DateEpisodic/ChronicAllergic reactions (1 source)Urticaria, unspecifiedOnset: 09-23-2021 Resolved: 70-59-6628XqngqqgsAndawmkwg and vision defects (20 sources)Blurring of visual image; Translations: [Other visual disturbances] Onset: 440373-16-6496XbrpclxyKlpnftdsdyqcu and screening for infectious disease (1 source)Encounter for immunization; Translations: [Encounter for immunization Z23]Onset: 12-05-2020 Resolved: 68-94-8526XmvnuwczRyjt disorders (20 sources)Mood disordersOnset: 03-28-2023 Resolved: 323288-60-2814Zmajjjbbhey deficiencies (20 sources)Deficiency of other specified B group vitamins; Translations: [Iron deficiency]Onset: 12-17-2020 Resolved: 12-63-8734MgaacvlnFcmpr connective tissue disease (20 sources)Fibromyalgia; Translations: [Fibromyalgia]Onset: 02-07-2023 31-61-0056FksbzngpQcguf diseases of kidney and ureters (20 sources)Secondary hyperparathyroidism; Translations: [Secondary hyperparathyroidism of renal origin]Onset: 06-20-2023 Resolved: 975598-68-9368DtwvrghEzfjz gastrointestinal disorders (4 sources)Diarrhea, unspecified; Translations: [DIARRHEA UNSPECIFIED]Onset: 86-54-2448LxxwxdirWxhkm injuries and conditions due to external causes (20 sources)Closed injury of head; Translations: [Unspecified injury of head, subsequent encounter]Onset: 104804-26-1281YrzcaebsOxqxy nervous system disorders (20 sources)Polyneuropathy associated with another disorder; 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]Onset: 02-07-2023 Resolved: 853125-04-9043QyaxznpLtlnf non-traumatic joint disorders (20 sources)Pain in right shoulder; Translations: [Pain in joint, shoulder region]Onset: 493276-68-1127SehiithxFojda non-traumatic joint disorders (20 sources)Stiffness of right shoulder; Translations: [Stiffness of right shoulder, not elsewhere classified]Onset: 366161-77-5402PzucoiseLxxur non- traumatic joint disorders (1 source)Rotator cuff arthropathy of right shoulderOnset: 61-71-8048Ypoewonn Other nutritional; endocrine; and metabolic disorders (20 sources)Obesity caused by energy imbalance; Translations: [Morbid (severe) obesity due to excess calories]Onset: 03-05-2024 Resolved: 684304-46-5380WxitkgcEoork screening for suspected conditions (not mental disorders or infectious disease) (20 sources)Encounter for screening mammogram for malignant neoplasm of breast; Translations: [Patient encounter status]Onset: 65-66-6302NrqeusidAnhyi upper respiratory infections (20 sources)Acute pansinusitis; Translations: [Acute pansinusitis, unspecified] Onset: 12-09-2024 Resolved: 959299-18-2134TxbtcyreZhmhdogc codes; unclassified (1 source)Family history of malignant neoplasm of breast; Translations: [FAMILY HX MALIG NEOPLASM OF BREAST]Onset: 25-47-2172EomzpgylKfvgdqlt codes; unclassified (1 source)Family history of malignant neoplasm of digestive organs; Translations: [FAM HX MALIG NEOPLASM DIGESTIV ORGN]Onset: 15-48-0423Qfqwucff Residual codes; unclassified (1 source)Family history of malignant neoplasm of other genital organs; Translations: [FAM HX MALIG NEOPLSM OTH GENIT ORGN]Onset: 58-19-8385Fookrvfg Residual codes; unclassified (20 sources)Menopause present; Translations: [Asymptomatic menopausal state] Onset: 374377-14-1543JhjgqnmaAzarojmhtxi; intervertebral disc disorders; other back problems (20 sources)Backache; Translations: [Dorsalgia, unspecified]Onset: 07-29-2016 37-99-0360UmhqkiubIrpzlulhwab injury; contusion (20 sources)Contusion of other part of head, initial encounter; Translations: [Hematoma of scalp]Onset: 466230-79-3876Pqumtzbr Results Test NameValueInterpretationReference RangeFacilityMR lumbar spine wo conon 53-37-5337IL lumbar spine wo [facility] [place] [address] MRI Report Signed Patient: Ashley Olson MR#: [id number] : 1945 Acct:[id number] Age/Sex: 79 / F ADM Date: 12/11/24 Loc: MR Room: Type: [facility] Attending Dr: Dana LEE Copies to: ROSA Mcgrath Ordering Provider: ROSA Mcgrath Date of Service: [...] 3 mm. Likely caused by the facet arthropathy levels. Otherwise mild multilevel disc desiccation. Mild [...] neural foramina patent. L2-3: Disc desiccation with xucf-jb-unmeaquz facet arthropathy. Minimal left foraminal narrowing. Right foramen and central canal patent. L3-4: Broad-based disc bulge with moderate facet arthropathy and bilateral facet joint effusion. Moderate central stenosis. Wbuy-kv-wbplbikd neural foraminal narrowing. L4-5: Broad-based disc bulge [...] Solis M.D. 12/11/2024 8:56 AM Dictation Location: [place] [address] Transcribed By: [facility] 12/11/24 0856 Dictated By: Yosef Solis MD 12/11/24 0845 Signed By: 12/11/24 0856[facility] Centeretic resonance imaging reportOrdered By: Yosef Solis on 84-55-1454Badqq reportGRAND LAKE JO[facility] Main [place] [address] [place] [address] MRI Report Signed Patient: Ashley Olson MR#: [id number] : 1945 Acct:[id number] Age/Sex: 79 / F ADM Date: 5 Loc: MR [facility]: [facility]: Dana LEE Copies to: ROSA [...] 3 mm. Likely caused by the facet arthropathy levels. Otherwise mild multilevel disc desiccation. Mild intervertebral space narrowing at L5-S1. Vertebral heights and remaining intervertebral spacesare preserved. Conus medullaris terminates normally mid L1. Nerve roots of the cauda equina are unremarkable. Right renal cyst noted. T12-L1: Disc desiccation. No significant disc protrusion central canal neural foramen identified. Mild facet arthropathy. L1-2: Broad-based disc bulge with mild facet arthropathy. Mild ligamentum flavum hypertrophy. Canalneural foramina patent. L2-3: Disc desiccation with fgwa-df-pkjtyoaz facet arthropathy. Minimal left foraminal narrowing. Right foramen and central canal patent. L3-4: Broad-based disc bulge with moderate facet arthropathy and bilateral facetjoint effusion. Moderate central stenosis. Fduj-hz-ynonejct neural foraminal narrowing. L4-5: Broad-based disc bulge with moderate to severe facet arthropathy and facetspurring. This causes moderate to severe central canal stenosis and moderate crowding subarticular zones. This moderateneural from narrowing. L5-S1:: Circumferential disc bulge with moderate to severe facet arthropathy andspurring this causes severe bilateral subarticular recess narrowing appears mostpronounced the left correlate with leftgreater than right S1 radiculopathy. Suspected synovial cyst as well and left measuring 4 x 3 mm insize MR/MR lumbar spine wo con IMPRESSION: Multilevel degenerative changes greatest involving the lower facet joints. Evidence of severe subarticular recess narrowing left greater than right at L5-S1, correlate with left greater than right S1 radiculopathy. Moderate severe central canal stenosis and facet arthropathy at L4-5 Impression dictated by: Yosef Solis M.D. 12/11/2024 8:56 AM Dictation Location: [facility]- Transcribed By: [facility] 12/11/24855 Dictated By: Yosef Solis MD 12/11/24844 Signed By: 12/11/24855 [facility] Work Phone: XR SHOULDER RT MIN 2 VWSon 37-13-1130HM SHOULDER RT MIN 2 VWSXR SHOULDER RT MIN 2 VWS Comparison April 19 History: S/P reverse total shoulder arthroplasty, right XR SHOULDER RT MIN 2 VWS Impression: 1. Prosthesis shows no radiographic evidence for complication. No acute findings. Finalized by Neal Gutierres MD on 11/09/2024 3:33 PMNormalProMedica Oregon Hospital For The InsaneHbA1c HPLC (Bld) [Mass fraction]Ordered By: Bernardino Talavera on 09-04-2024 HbA1c (Bld) [Mass fraction]5.8 %[facility] CenterNo Panel InformationOrdered By: Bernardino Talavera on 25-58-6657Hyedwmg Obsnbjy35EtsdslqbtTrinity Health System Twin City Medical CenterErythrocyte distribution width Auto (RBC) [Ratio]on 82-82-4366Ujrwthtpwte distribution width (RBC) [Ratio]Erythrocyte distribution width [Ratio] by Automated count11.0-15.0[facility] Estimated glomerular filtration rate (GFR) non- Americanon 06-05-2024 GFR/1.73 sq M.predicted among non-blacks MDRD (S/P/Bld) [Vol rate/Area]Estimated glomerular filtration rate (GFR) non- AmericanLow>=60 mL/min/1.73m 2 [facility] CBC WITH PLATELET NO DIFFERENTIALon 50-60-1559Jyfsajwxrcq distribution width (RBC) [Ratio]12.5 %11.0 - 15.0 %[facility] HospitalHematocrit (Bld) [Volume fraction]43.6 %36.0 - 48.0 %[facility] Hemoglobin (Bld) [Mass/Vol]14.1 g/dL12.0 - 16.0 g/dLTexas County Memorial Hospital Interpretation and review of laboratory resultsAbnormalAlvin J. Siteman Cancer CenterH (RBC) [Entitic mass]29.4 pg26.7 - 34.0 pgAlvin J. Siteman Cancer CenterHC (RBC) [Mass/Vol]32.3 g/dL 29.9 - 35.2 g/dLAlvin J. Siteman Cancer CenterV (RBC) [Entitic vol]91 fL81.0 - 99.0 fLTexas County Memorial HospitalPlatelet mean volume (Bld) [Entitic vol]8.5 fLLow9.5 - 13.5 fLTexas County Memorial HospitalTB QRJ245DDSZKindred HospitalTB RBC4.79NOKindred HospitalTB WBC6.7[facility] Memorial HospitalCLINISYNCNOMS Southwest General Health CenterHematocrit Auto (Bld) [Volume fraction]on 53-09-3754Enclasusua (Bld) [Volume fraction]Hematocrit [Volume Fraction] of Blood by Automated count36.0-48.0[facility] CenterHemoglobin [Mass/volume] in Bloodon 31-97-2458Bcctnutyym (Bld) [Mass/Vol]Hemoglobin [Mass/volume] in Blood12.0-16.0[facility] CenterIron binding capacity [Mass/volume] in Serum or Plasmaon 36-18-7685Bkwi binding capacity [Mass/Vol]Iron binding capacity [Mass/volume] in Serum or Ggeltv260.0-450.0 [facility] CenterIron saturation [Mass Fraction] in Serum or Plasmaon 03-99-5546Kdrv saturation [Mass fraction]Iron saturation [Mass Fraction] in Serum or PlasmaTrinity Health System Twin City Medical CenterLaboratory - Chemistry and Chemistry - challengeon 43-72-4217Swmonll [Mass/Vol]4.0 g/dL 3.4-5.0[facility] CenterCalcium [Mass/Vol]9.1 mg/dL8.5-10.1 [facility] CenterChloride [Moles/Vol]99 mmol/N34-830BwewockbnTrinity Health System Twin City Medical CenterCO2 [Moles/Vol]29.3 mmol/L21.0-32.0[facility] CenterCreatinine [Mass/Vol]1.02 mg/dL0.55-1.02[facility] CenterFerritin [Mass/Vol]95.0 ng/mL8.0-252.0[facility] GFR/1.73 sq M.predicted MDRD (S/P/Bld) [Vol rate/Area]mL/min/{1.73_m2}>=60 mL/min/1.73m 2FBrown Memorial HospitalGlucose [Mass/Vol]98 mg/yI56-645 [facility] CenterIron [Mass/Vol]74.0 ug/dL50.0-170.0[facility] CenterMagnesium [Mass/Vol]1.8 mg/dL1.8-2.4FBrown Memorial HospitalPotassium [Moles/Vol]3.5 mmol/L3.5-5.1FCleveland Clinic Mercy Hospitalodium [Moles/Vol]137 mmol/S352-028FcolxbrmaTrinity Health System Twin City Medical CenterUrate [Mass/Vol]3.4 mg/dL2.6-6.0[facility] CenterUrea nitrogen [Mass/Vol]20.0 mg/dLHigh7.0-18.0[facility] CenterUrea nitrogen/Creatinine [Mass ratio]19.6 mg/mgTrinity Health System [facility] Center Laboratory - Urinalysison 83-02-9471Gnwghdu (U) [Mass/Vol]12.2 mg/dLHigh<=11.9 [facility] CenterLeukocytes [#/volume] corrected for nucleated erythrocytes in Blood by Automated counon 86-30-2995XIR corrected for nucl RBC Auto (Bld) [#/Vol]Leukocytes [#/volume] corrected for nucleated erythrocytes in Blood by Automated coun4.0-11.0[facility] Medical CenterMC Auto (RBC) [Entitic mass]on 66-02-5649GWL (RBC) [Entitic mass]MCH [Entitic mass] by Automated count26.7-34.0[facility] Medical CenterMCHC Auto (RBC) [Mass/Vol]on 62-17-9447GAXF (RBC) [Mass/Vol]MCHC [Mass/volume] by Automated count29.9-35.2FBrown Memorial HospitalMCV Auto (RBC) [Entitic vol]on 36-66-2923FLW (RBC) [Entitic vol]MCV [Entitic volume] by Automated count 81.0-99.0[facility] CenterNo Panel Informationon - Hydroxy Vitamin D Total40.5 ng/mLTrinity Health System Twin City Medical CenterComment on above:<20 ng/mL Vit D bjrnmibpg34-<30 ng/mL Vit D wbadmrifxuwx97-882 ng/mL Vit D sufficient>100 ng/mL Potential ToxicityParathyroid Hormone (Intact)49 pg/mL15-65 [facility] Medical CenterComment on above:Performed at: [facility] [place] [id number] Director: Remy Sanchez PhD, Phone: [phone] Level4.2 mg/dL2.6-4.7FBrown Memorial HospitalUrine Random Dqiheazyri96.59 mg/dL20.00-300.00[facility] Medical CenterPlatelet mean volume Auto (Bld) [Entitic vol]on 59-15-4503Hrnlipih mean volume (Bld) [Entitic vol]Platelet mean volume [Entitic volume] in Blood by Automated countLow9.5-13.5FBrown Memorial HospitalPlatelets Auto (Bld) [#/Vol]on 60-13-2640Yvlskhwyh (Bld) [#/Vol]Platelets [#/volume] in Blood by Automated eslxg619-998SmjlcluufTrinity Health System Twin City Medical CenterRBC Auto (Bld) [#/Vol]on 41-54-1991LRA (Bld) [#/Vol]Erythrocytes [#/volume] in Blood by Automated count 4.20-5.40[facility]leness Hospitalerum or plasma anion gap determinationon 55-66-5922Yxgmz gap [Moles/Vol]Serum or plasma anion gap determinationTrinity Health System Twin City Medical CenterUrine protein/creatinine ratioon 65-39-4198Paegpom/Creatinine (U) [Ratio]Urine protein/creatinine ratioTrinity Health System Twin City Medical CenterGlucose Glucometer (BldC) [Mass/Vol]on 98-12-3059Ipsxiql [Mass/Vol]195 mg/rVOjgy03-67PslIikzwlWayne HospitalGlucose [Mass/Vol]134 mg/zSRami36-66DfiEzeokyEast Ohio Regional HospitalAPTTon 03-46-9033xJRV Coag (PPP) [Time] 39 [facility] HospitalBASIC METABOLIC PANLon 31-50-4796Akaum gap [Moles/Vol]10 mmol/LNormal5-15ProEast Ohio Regional HospitalComment on above: Performed By: #### ELDER, PINR, 32589-3, BMP, LIVR #### [facility] ([id number]) [address] [place] [place], [place] [address]Ymwirit [Mass/Vol]8.9 mg/dLNormal8.5-10.5PRegency Hospital Cleveland WestComment on above:Performed By: #### CBC, PINR, 74164-8, BMP, LIVR #### [facility] ([id number]) [address] [place], [place] [address]Cogyezow [Moles/Vol]101 mmol/YJqyxrl96-101AikRbnavvWayne HospitalComment on above:Performed By: #### ELDER, PINR, 07079-3, BMP, LIVR #### [facility] ([id number]) [address] [place], [place] [address]NO8 [Moles/Vol]25 mmol/UZgjrfw74-40HiqFiuazgRegency [facility] Comment on above:Performed By: #### CBC, PINR, 04662-2, BMP, LIVR #### [facility] ([id number]) [address] [place], [place] [address]Seonbmpoun [Mass/Vol]0.92 mg/dLNormal0.40-1.00Wayne HospitalComment on above:Result Comment: METHOD TRACEABLE TO IDMS STANDARD Performed By: #### CBC, PINR, 11744-7, BMP, LIVR #### [facility] ([id number]) [address] [place], [place] [address]QLV/1.73 sq M.predicted among non-blacks MDRD (S/P/Bld) [Vol rate/Area]64 mL/min/{1.73_m2}Normal>59ProEast Ohio Regional HospitalComment on above:Result Comment: Reported eGFR is based on the CKD-EPI 2020 equation that does not use a race coefficient.Performed By: #### ELDER PINMary, 28336-0, BMP, LIVR #### [facility] ([id number]) [address] [place], [place] [address]Zwhfekz [Mass/Vol]148 mg/tQQwsw75-74BcmFvnnlrEast [place] Regional Hospital Comment on above:Performed By: #### NORA FRIEDMAN, 91906-8, BMP, LIVR #### [facility] ([id number]) [address] [place], [place] [address]Fikxqknib [Moles/Vol]4.0 mmol/LNormal3.5-5.0ProEast Ohio Regional HospitalComment on above:Performed By: #### NORA FRIEDMAN, 22818-1, BMP, LIVR #### [facility] ([id number]) [address] [place], [place] [address]Wkdqcw [Moles/Vol]136 mmol/AJiwbhf230-798UebKyrvcf Baypark HospitalComment on above:Performed By: #### NORA FRIEDMAN, 79134-7, BMP, LIVR #### [facility] ([id number]) [address] [place], [place] [address]Yuwl nitrogen [Mass/Vol]30 mg/dLHigh5-27ProEast Ohio Regional HospitalComment on above:Performed By: #### NORA FRIEDMAN, 83806-9, BMP, LIVR #### [facility] ([id number]) [address] [place], [place] [address]Oegbz Metabolic Panelon 73-26-8550Gqjsy gap [Moles/Vol]10 mmol/L 5 - 15 mmol/LProMedica Health SystemCalcium [Mass/Vol]8.9 mg/dL8.5 - 10.5 mg/dL [facility] Health SystemChloride [Moles/Vol]101 mmol/L98 - 109 mmol/[facility] SystemCO2 [Moles/Vol]25 mmol/L22 - 32 mmol/[facility] Creatinine [Mass/Vol]0.92 mg/dL0.40 - 1.00 mg/dLMedina HospitalComment on above:METHOD TRACEABLE TO IDCT STANDARDeGFR (CKD-EPI)non-race diqxptcln50- PINHCA Midwest DivisionComment on above: Reported eGFR is based on the CKD-EPI 2020 equation that does not use a race coefficient. Glucose [Mass/Vol]148 mg/eZYjnf77 - 99 mg/dLMedina Hospital Interpretation and review of laboratory resultsAbnoAtrium Health Pineville Potassium [Moles/Vol]4 mmol/L3.5 - 5.0 mmol/[facility] Hospitalodium [Moles/Vol]136 mmol/L134 - 146 mmol/[facility] - DublinUrea nitrogen [Mass/Vol]30 mg/dLHigh5 - 27 mg/dLBryn Mawr Hospital CBC without diffon 12-26-0212Henuidtfnjv distribution width (RBC) [Ratio]14 % 11.5 - 15.0 %Medina HospitalHematocrit (Bld) [Volume fraction]40.3 %35 - 47 %Medina HospitalHemoglobin (Bld) [Mass/Vol]14.2 g/dL11.7 - 15.5 g/dL Medina HospitalInterpretation and review of laboratory resultsAbnormal [facility] Health CenterH (RBC) [Entitic mass]31.7 pg27 - 34 [facility] ColumbusMCHC (RBC) [Mass/Vol]35.2 g/dL32 - 36 g/dLMedina HospitalMCV (RBC) [Entitic vol]90 fL80 - 100 [facility] LawnPlatelet mean volume (Bld) [Entitic vol]6.4 fLLow7 - 12 [facility] LawnPlatelets (Bld) [#/Vol]209 10*3/[facility] HospitalRBC (Bld) [#/Vol]4.48 10*6/[facility]ly [facility] HospitalWBC corrected for nucl RBC Auto (Bld) [#/Vol]7.2PThe Children's Hospital FoundationCOMPLETE BLOOD COUNTon 47-08-1152Yggofqudwzz distribution width (RBC) [Ratio]14.0 %Lknvoc12.5-15.0Wayne HospitalComment on above:Performed By: #### CBC, PINR, 75904-7, BMP, LIVR #### [facility] ([id number]) [address] [place], [place] [address]Qnuizvgktr (Bld) [Volume fraction]40.3 %Lzfbmu32-24EytGadnigEast Ohio Regional HospitalComment on above:Performed By: #### CBC, PINR, 34131-7, BMP, LIVR #### [facility] ([id number]) [address] [place], [place] [address]Gakkgcnwif (Bld) [Mass/Vol]14.2 g/bPQqqbeq06.7-15.5PRegency Hospital [facility] WestComment on above:Performed By: #### CBC, PINR, 01160-0, BMP, LIVR #### [facility] ([id number]) [address] [place], [place] [address]SUB (RBC) [Entitic mass]31.7 xsNbmqjt24-43FtvWybrzzEast Ohio Regional HospitalComment on above:Performed By: #### CBC, PINR, 42501-4, BMP, LIVR #### [facility] ([id number]) [address] [place], [place] [address]YFCL (RBC) [Mass/Vol]35.2 g/dLCtuixs20-07JfyBjgjypEast Ohio Regional HospitalComment on above:Performed By: #### CBC, PINR, 35916-3, BMP, LIVR #### [facility] ([id number]) [address] [place], [place] [address]CMB (RBC) [Entitic vol]90 zEXpgtig49-947VjwEmnlor Baypark HospitalComment on above:Performed By: #### CBC, PINR, 68917-8, BMP, LIVR #### [facility] ([id number]) [address] [place], [place] [address]Kgaywfic mean volume (Bld) [Entitic vol]6.4 fLLow7-12Pro[facility] HospitalComment on above:Performed By: #### ELDER, PINR, 72410-9, BMP, LIVR #### [facility] ([id number]) [address] [place], [place] [address]Zbzffsbin (Bld) [#/Vol]209 10*3/dKAregkm891-339QwzZjcbpw Baypark HospitalComment on above:Performed By: #### ELDER, PINMray, 69297-6, BMP, LIVR #### [facility] ([id number]) [address] [place], [place] [address]ARA COUNT4.48 X10E12/LNormal3.80-5.20[facility] Comment on above:Performed By: #### ELDER, PORSHAR, 30197-9, BMP, LIVR #### [facility] ([id number]) [address] [place], [place] [address]TIH (Bld) [#/Vol]7.2 10*3/uLNormal4.0-11.0ProEast Ohio Regional HospitalComment on above:Performed By: #### ELDER, NORA, 32359-0, BMP, LIVR #### [facility] ([id number]) [address] [place], [place] [address]CGZDY PANELon 35-84-7810Vjdvofl [Mass/Vol]4.4 g/dLNormal3.2-5.3 [facility] For The InsaneComment on above:Performed By: #### ELDER, PINR, 78998- 9, BMP, LIVR #### [facility] ([id number]) [address] [place], [place] [address]NKE [Catalytic activity/Vol]87 U/YBancss54-520XseGvxwpnEast Ohio Regional HospitalComment on above:Performed By: #### ELDER, PINR, 43295-4, BMP, LIVR #### [facility] ([id number]) [address] [place], [place] [address]YQZ [Catalytic activity/Vol]16 U/LNormal0-31ProMedOhioHealthComment on above:Performed By: #### ELDER, PINR, 15853-8, BMP, LIVR #### [facility] ([id number]) [address] [place], [place] [address]CBE [Catalytic activity/Vol]26 U/LNormal0-41ProEast Ohio Regional HospitalComment on above:Performed By: #### ELDER, PINR, 05783-3, BMP, LIVR #### [facility] ([id number]) [address] [place], [place] [address]Klyecixog [Mass/Vol]0.4 mg/dLNormal0.3-1.2PRegency Hospital [facility] WestComment on above:Performed By: #### ELDER, PORSHAR, 45275-7, BMP, LIVR #### [facility] ([id number]) [address] [place], [place] [address]Kgrdzqrpy.indirect [Mass/Vol]mg/dLNormal0.0-0.4ProEast Ohio Regional HospitalComment on above:Performed By: #### ELDER, PINR, 98983-4, BMP, LIVR #### [facility] ([id number]) [address] [place], [place] [address]Ktmtepg [Mass/Vol]6.7 g/dLNormal6.0-8.0ProEast Ohio Regional HospitalComment on above:Result Comment: LIPEMIA REMOVED BY HIGH SPEED CENTRIFUGATIONPerformed By: #### ELDER, PINR, 93407-8, BMP, LIVR #### [facility] ([id number]) [address] [place], [place] [address]Ddeyj panelon 54-55-1224Kohugrn [Mass/Vol]4.4 g/dL3.2 - 5.3 g/dL [facility] Health SystemALP [Catalytic activity/Vol]87 U/L39 - 130 U/LProMedica Health SystemALT No additional P-5'-P [Catalytic activity/Vol]16 U/L0 - 31 U/L [facility] Health SystemAST [Catalytic activity/Vol]26 U/L0 - 41 U/LProMedica Health SystemBilirubin [Mass/Vol]0.4 mg/dL0.3 - 1.2 mg/dLMedina Hospital Bilirubin.direct [Mass/Vol]mg/dL0.0 - 0.4 mg/dLSelect Medical [facility] SystemProtein [Mass/Vol]6.7 g/dL6.0 - 8.0 g/dLMedina HospitalComment on above:LIPEMIA REMOVED BY HIGH SPEED CENTRIFUGATIONMedina HospitalNo Panel Information on 28-23-1425WcqBpgjxuMedina HospitalPROTIME AND INRon 48-55-9925DIE Coag (PPP) [Relative time]1.0 {INR}Normal0.8-1.1PRegency Hospital [facility] WestComment on above: Performed By: #### CBC, PINR, 79076-0, BMP, LIVR #### [facility] ([id number]) [address] [facility] [place], [place] [address]UB Coag (PPP) [Time]11.7 sNormal9.8-13.2PRegency Hospital [facility] WestComment on above:Performed By: #### CBC, PINR, 66601-5, BMP, LIVR #### [facility] ([id number]) [address] [place], [place] [address]Szvwdec & INRon 74-86-2038PFK Coag (PPP) [Relative time]1 {INR} Medina HospitalPT Coag (PPP) [Time]11.7 [facility] SystemaPTT Coag (PPP) [Time]on 68-17-2535Vcwcggclwfgxow and review of laboratory results AbnormalSelect Medical [facility], [facility] SystemaPTT Coag (Bld) [Time]39 hOmhi54-73VvoHkirzdWayne HospitalComment on above:Performed By: #### CBC, PINR, 07769-2, BMP, LIVR #### [facility] ([id number]) [address] [place], [place] [address]VE BRAIN WO CONTon 58-98-8370XN BRAIN WO CONTCT BRAIN WO CONT History: Pain after trauma [...] by Andrés Geiger MD on 02/20/2024 9:09 [facility] CenterCT CERVICAL SPINE WO CONTon 85-55-4583LM CERVICAL SPINE WO CONTCT CERVICAL SPINE WO CONT History: Fall, pain [...] vertebral heights. There is no evidence of compressionfractures or malalignment. The odontoid process is intact. No significant prevertebral soft tissue abnormality is identified. Moderate degenerative changes. IMPRESSION: No evidence of fractures, malalignment or acute bony pathology. Finalized by Carlos Candelario MD on 02/20/2024 9:09 [facility] TOMOSYNTHESIS SCREENING BIon 12-09-[place], [place] [address] Mammography Report Signed Patient: ASHLEY OLSON MR#: [id number] : 1945 Acct:[id number] Age/Sex: 79 / F ADM Date: 02/17/24 Loc: MAMMO Attending Dr: Dana Tapia NP Ordering Physician: Dana Tapia NP Results: Date of Service: 02/17/24 Follow Up: Procedure(s): MM tomosynthesis screening BI Accession Number(s): [id number] cc: Dana Tapia NP Patient Name: ASHLEY OLSON MR#: [id number] : 1945 Exam Date: 02/17/2024 Ordering Doctor: LIZETTE Tapia CNP RADIOLOGY REPORT PROCEDURE: MM TOMOSYNTHESIS SCREENING BI COMPARISON: MG MAMM SCREEN 3D NICOLE CAD, 02/05/2022. MM TOMOSYNTHESIS SCREENING BI, 02/15/2023. [...] liver cancer at age 70. LOCATION: [facility] BREAST COMPOSITION: There are scattered areas of [...] BIOPSIED. Dictated by: Andrés Hancock MD on 02/17/2024 at 09:34 Approved by: Andrés Hancock MD on 02/17/2024 at 09:36 Dictated By: Andrés Hancock M.D. 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 Visbreaking:TBHRadiology, RadiologistMD - 02/17/2024 [place] [address] Mammography Report Signed Patient: ASHLEY OLSON MR#: [id number] : 1945 Acct:[id number] Age/Sex: 79 / F ADM Date: 02/17/24 Loc: MAMMO Attending Dr: Dana Tapia NP Ordering Physician: Dana Tapia NP Results: Date of Service: 02/17/24 Follow Up: Procedure(s): MM tomosynthesis screening BI Accession Number(s): [id number] cc: Dana Tapia NP Patient Name: ASHLEY OLSON MR#: [id number] : 1945 Exam Date: 02/17/2024 Ordering Doctor: LIZETTE Tapia CNP RADIOLOGY REPORT PROCEDURE: MM TOMOSYNTHESIS SCREENING BI COMPARISON: MG MAMM SCREEN 3D NICOLE CAD, 02/05/2022. MM TOMOSYNTHESIS SCREENING BI, 02/15/2023. [...] liver cancer at age 70. LOCATION: [facility] BREAST COMPOSITION: There are scattered areas of [...] BIOPSIED. Dictated by: Andrés Hancock MD on 02/17/2024 at 09:34 Approved by: Andrés Hancock MD on 02/17/2024 at 09:36 Dictated By: Andrés Hancock M.D. 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 Visbreaking: [facility] HospitalRadiology Study observation (narrative)[facility] TOMOSYNTHESIS SCREENING BIOrdered By: Radiologist Radiology on 16-95-5832ZWWT Healthcare Work Phone: cholesterol [Mass/volume] in Serum or PlasmaOrdered By: Bernardino Talavera on 56-63-4716Csjidaxefsm [Mass/Vol]Cholesterol [Mass/volume] in Serum or Zsvaje698-616ZjuxzkmqdTrinity Health System Twin City Medical CenterComment on above:Chol less than 200 mg/dl low riskChol 201-239 mg/dl borderline riskChol 240 mg/dl and greater high riskCholesterol in HDL [Mass/volume] in Serum or PlasmaOrdered By: Bernardino Talavera on 50-72-7744Fyralbqanvt in HDL [Mass/Vol]Serum or plasma high density lipoprotein (HDL) cholesterol wdlnvmrpouz80-76CmnqcltuuTrinity Health System Twin City Medical CenterComment on above:HDL CHOL ATP-III CLASSIFICATION Cardiovascular RiskHDL > or equal to 60 mg/dL LOWHDL < 40 mg/dL HIGHCholesterol in LDL Calc [Mass/Vol] Ordered By: Bernardino Talavera on 44-03-2173Zepgmgfjxxz in LDL [Mass/Vol]Cholesterol in LDL [Mass/volume] in Serum or Plasma by calculationTrinity Health System Twin City Medical CenterComment on above:LDL ATP III CLASSIFICATIONLDL less than 100 mg/dL OptimalLDL 100-129 mg/dL Near or above uunzvwaRMY733-972 mg/dL Borderline highLDL 160-189 mg/dL HighLDL greater than 189 mg/dL Very highCholesterol in VLDL Calc [Mass/Vol]Ordered By: Bernardino Talavera on 36-76-2111Dbslcxsauey in VLDL [Mass/Vol]Cholesterol in VLDL [Mass/volume] in Serum or Plasma by calculation [facility] City Medical CenterLipid Panelon 79-98-6701Shbisxozqee [Mass/Vol] 144 mg/aALxoank214-207Sga [facility] Physician GroupComment on above:Result Comment: Chol less than 200 mg/dl low risk Chol 201-239 mg/dl borderline risk Chol 240 mg/dl and greater high riskPerformed By: #### LIPID #### [facility] [address] [place] [address] USACholesterol in HDL [Mass/Vol]54 mg/jBFlwcwc33-57Tyj [facility] Hospital Physician GroupComment on above:Result Comment: HDL CHOL ATP-III CLASSIFICATION Cardiovascular Risk HDL > or equal to 60 mg/dL LOW HDL < 40 mg/dL HIGHPerformed By: #### LIPID #### [facility] [address] [place] [address] USACholesterol.total/Cholesterol in HDL [Mass ratio]2.7 {ratio}Normal<5.0The Kindred Hospital PhiladelphiaComment on above:Result Comment: PERFORMED BY: [facility] [address] [place] [address] PATHOLOGIST PATIENT FINANCIAL COORDINATOR NAGA MURILLO M.D.Performed By: #### LIPID #### [facility] [address] [place] [address] USALDL Cholesterol,Yntuqvrvoj75 mg/dLNormal0-100[facility] Physician [facility] General HospitalComment on above:Result Comment: LDL ATP III CLASSIFICATION LDL less than 100 mg/dL Optimal LDL 100-129 mg/dL Near or above optimal LDL 130-159 mg/dL Borderline high LDL 160-189 mg/dL High LDL greater than 189 mg/dL Very highPerformed By: #### LIPID #### [facility] [address] [place] [address] USATriglyceride w/Rrkahq110 mg/dLHigh0-149The [facility] Hospital Physician GroupComment on above:Result Comment: TRIG ATP III CLASSIFICATION TRIG less than 150 mg/dL Normal TRIG 150-199 mg/dL Borderline high TRIG 200-500 mg/dL High TRIG greater than 500 mg/dL Very high Standard traceable to the Center for Disease Conrtrol and Prevention (CDC) test method.Performed By: #### LIPID #### [facility] [address] [place] [id number] USAVLDL JHMQONRMYDP83 mg/dLNormalThe [facility] Physician [facility] General HospitalComment on above:Performed By: #### LIPID #### [facility] [address] [place] [id number] USASerum or plasma total cholesterol/high density lipoprotein (HDL) cholesterol mass ratOrdered By: Bernardino Talavera on 02-10-2024 Cholesterol.total/Cholesterol in HDL [Mass ratio]Serum or plasma total cholesterol/high density lipoprotein (HDL) cholesterol mass rat<5.0[facility] Medical CenterTriglyceride [Mass/volume] in Serum or PlasmaOrdered By: Bernardino Talavera on 31-22-6309Hlskavdogrfx [Mass/Vol]Triglyceride [Mass/volume] in Serum or PlasmaHigh0-149[facility] Medical CenterComment on above:TRIG ATP III CLASSIFICATIONTRIG less than 150 mg/dL NormalTRIG 150-199 mg/dL Borderline highTRIG 200-500 mg/dL High TRIG greater than 500 mg/dL Very highStandard traceable to the Center for Disease Conrtrol and Prevention (CDC) test method.Erythrocyte distribution width Auto (RBC) [Ratio]on 12-06-2023 Erythrocyte distribution width (RBC) [Ratio]12.4 %11.0-15.0[facility] Medical CenterEstimated glomerular filtration rate (GFR) non- Americanon 14-37-3305WYM/1.73 sq M.predicted among non-blacks MDRD (S/P/Bld) [Vol rate/Area]47 mL/min/{1.73_m2}Low>=60 mL/min/1.73m 2FMercy Health Springfield Regional [facility] Center CBC WITH PLATELET NO DIFFERENTIALon 48-39-9151Lbuskfkcakz distribution width (RBC) [Ratio]12.4 %11.0 - 15.0 %[facility] HealthcareHematocrit (Bld) [Volume fraction]40.9 %36.0 - 48.0 %[facility] Memorial HospitalHemoglobin (Bld) [Mass/Vol]13.2 g/dL12.0 - 16.0 g/dLTexas County Memorial HospitalInterpretation and review of laboratory resultsAbnormalAlvin J. Siteman Cancer CenterH (RBC) [Entitic mass]29.9 pg26.7 - 34.0 pgAlvin J. Siteman Cancer CenterHC (RBC) [Mass/Vol]32.3 g/dL29.9 - 35.2 g/dLAlvin J. Siteman Cancer CenterV (RBC) [Entitic vol]92.7 fL81.0 - 99.0 fLTexas County Memorial HospitalPlatelet mean volume (Bld) [Entitic vol]8.9 fLLow9.5 - 13.5 fLMoberly Regional Medical Center YME823 [facility] RBC4.41NOHermann Area District Hospital WBC5.1[facility] HealthcareCLINISYNCNATOKA COUNTY MEDICAL [facility]ENTER [facility] HealthcareHematocrit Auto (Bld) [Volume fraction]on 71-80-7466Wwqvgegqdk (Bld) [Volume fraction]40.9 %36.0-48.0[facility] Medical CenterHemoglobin [Mass/volume] in Bloodon 23-27-3794Yectrdksmc (Bld) [Mass/Vol]13.2 g/dL12.0-16.0 [facility] Medical CenterIron binding capacity [Mass/volume] in Serum or Plasmaon 62-11-7590Oobw binding capacity [Mass/Vol]259.0 ug/dL250.0-450.0 [facility] Medical CenterIron saturation [Mass Fraction] in Serum or Plasmaon 29-14-9986Mwaw saturation [Mass fraction]15.1 %[facility] Medical CenterLaboratory - Chemistry and Chemistry - challengeon 12-06-2023 Albumin [Mass/Vol]3.6 g/dL3.4-5.0[facility] Medical CenterCalcium [Mass/Vol]9.0 mg/dL8.5-10.1FBrown Memorial HospitalChloride [Moles/Vol] 101 mmol/P26-864MqwipadhxTrinity Health System Twin City Medical CenterCO2 [Moles/Vol]27.0 mmol/L 21.0-32.0[facility] Medical CenterCreatinine [Mass/Vol]1.13 mg/dLHigh 0.55-1.02[facility] Medical CenterFerritin [Mass/Vol]131.0 ng/mL 8.0-252.0[facility] Medical CenterGFR/1.73 sq M.predicted MDRD (S/P/Bld) [Vol rate/Area]57 mL/min/{1.73_m2}Low>=60 mL/min/1.73m 2FBrown Memorial HospitalGlucose [Mass/Vol]99 mg/uD20-772EioupgsxtTrinity Health System [facility] Center Iron [Mass/Vol]39.0 ug/dLLow50.0-170.0[facility] Medical CenterMagnesium [Mass/Vol]1.9 mg/dL1.8-2.4FBrown Memorial HospitalPotassium [Moles/Vol]4.0 mmol/L3.5-5.1FCleveland Clinic Mercy Hospitalodium [Moles/Vol] 137 mmol/L755-975WlkxqentoTrinity Health System Twin City Medical CenterUrate [Mass/Vol]4.2 mg/dL 2.6-6.0[facility] Medical CenterUrea nitrogen [Mass/Vol]24.0 mg/dLHigh 7.0-18.0[facility] Medical CenterUrea nitrogen/Creatinine [Mass ratio] 21.2 mg/mgTrinity Health System Twin City Medical CenterBilirubin Ql (U)NegativeNEGATIVE [facility] Medical CenterGlucose (U) [Mass/Vol]250 mg/dLAbnormalNEGATIVE [facility] CenterKetones Ql (U)NegativeNEGATIVETrinity Health System Twin City Medical CenterpH (U)6.0 [pH]5.0-9.0[facility] Specific gravity (U) [Rel density]1.0101.005-1.025Tr[facility] Medical CenterUrobilinogen Qn (U)0.2 {Wil'U}/dL0.2-1.0[facility] Medical CenterLaboratory - Specimen informationon 84-25-9082Rhiyiixevn (U)CLEARCLEAR [facility] Medical CenterColor (U)LT. YELLOWYELLOWTrinity Health System Twin City Medical CenterLaboratory - Urinalysison 60-21-2023Wrmfzbnqw esterase Test strip Ql (U)NegativeNEGATIVETrinity Health System Twin City Medical CenterMucus Ql (Urine sed)NONE SEENNONE SEENTrinity Health System Twin City Medical CenterNitrite Ql (U)NegativeNEGATIVE [facility] CenterProtein (U) [Mass/Vol]6.0 mg/dL<=11.9[facility] Medical CenterProtein Ql (U)NegativeNEG/TRACETrinity Health System Twin City Medical CenterLeukocytes [#/volume] corrected for nucleated erythrocytes in Blood by Automated counon 83-66-7101ZVU corrected for nucl RBC Auto (Bld) [#/Vol]5.1 10 3/uL4.0-11.0[facility] HospitalH Auto (RBC) [Entitic mass]on 00-55-4529TAU (RBC) [Entitic mass]29.9 pg26.7-34.0[facility] Medical CenterMCHC Auto (RBC) [Mass/Vol]on 43-67-4850GHDA (RBC) [Mass/Vol]32.3 g/dL 29.9-35.2FBrown Memorial HospitalMCV Auto (RBC) [Entitic vol]on 34-46-2785JJM (RBC) [Entitic vol]92.7 fL81.0-99.0[facility] Medical CenterNo Panel Informationon 036927-Hfsxjwg Vitamin D Total48.2 ng/mL [facility] Medical CenterComment on above:<20 ng/mL Vit D xktoxrupp70- <30 ng/mL Vit D wmptdibdlmmv40-694 ng/mL Vit D sufficient>100 ng/mL Potential ToxicityParathyroid Hormone (Intact)38 pg/nT46-57AncmwzmgjTrinity Health System Twin City Medical CenterComment on above:Performed at: CB - [facility] [address] [id number] Director: Remy Sanchez PhD, Phone: [phone] Phosphorus Level4.6 mg/dL2.6-4.7FBrown Memorial HospitalUrine Bacteria NONE SEEN #/HPFNONE [facility] CampusUrine Occult Blood NegativeNEGATIVETrinity Health System Twin City Medical CenterUrine Other CastsNONE SEEN #/LPFNONE [facility] CampusUrine Other CrystalsNone Seen #/HPFNone [facility] CampusUrine Random Hbmyxauynx32.03 mg/dL20.00-300.00[facility] Medical CenterUrine RBC0-2 #/HPF0-2FBrown Memorial HospitalUrine Squamous Epithelial CellsRARE #/LPFNONE/RARE [facility] Medical CenterUrine WBC0-2 #/HPFAbnormalNONE [facility] CampusPlatelet mean volume Auto (Bld) [Entitic vol]on 38-75-7499Pzxaldow mean volume (Bld) [Entitic vol]8.9 fLLow9.5-13.5FBrown Memorial HospitalPlatelets Auto (Bld) [#/Vol]on 15-50-3812Qfixuupdj (Bld) [#/Vol]162 10 3/dO521-737SdlmdcolpTrinity Health System Twin City Medical CenterRBC Auto (Bld) [#/Vol] on 24-02-0412RVG (Bld) [#/Vol]4.41 10 6/uL4.20-5.40[facility]leness Hospitalerum or plasma anion gap determinationon 80-12-8119Pxpqw gap [Moles/Vol] 13.0 mmol/LFBrown Memorial HospitalUrine protein/creatinine ratioon 32-20-5508Aycrkmz/Creatinine (U) [Ratio]0.12[facility] HbA1c HPLC (Bld) [Mass fraction]on 48-72-4964WpZ9r (Bld) [Mass fraction]5.5 % [facility] CenterNo Panel Informationon 45-26-1046Tgauwaw Szwvfgz729JsyhfrlvoTrinity Health System Twin City Medical CenterBASIC METABOLIC PANLon 09-27-2023 Anion gap [Moles/Vol]11 mmol/LNormal5-15ProMethodist Texsan HospitalComment on above:Performed By: #### DEANNA MELENDEZ #### [facility] ([id number]) [address], [address] [place], [place] [address]Eguxker [Mass/Vol]8.9 mg/dLNormal8.5-10.5PWright-Patterson Medical CenterComment on above:Performed By: #### NORA, BMP #### [facility] ([id number]) [address], [address] [place], [place] [address]Paagxvzs [Moles/Vol]103 mmol/ISosuhv61-277SfgJqmgshOhioHealth Grant Medical CenterComment on above:Performed By: #### NORA BMP #### [facility] ([id number]) [address] [place], [place] [address]VO5 [Moles/Vol]26 mmol/FJadsvd70-90KfbLqvikiWright-Patterson Medical Center Comment on above:Performed By: #### NORA BMP #### [facility] ([id number]) [address] [address] [place], [place] [address]Bsjrxhgoba [Mass/Vol]1.04 mg/dLHigh0.40-1.00OhioHealth Grant Medical CenterComment on above:Result Comment: METHOD TRACEABLE TO IDMS STANDARD Performed By: #### NORA BMP #### [facility] ([id number]) [address] [place], [place] [address]IGC/1.73 sq M.predicted among non-blacks MDRD (S/P/Bld) [Vol rate/Area]56 mL/min/{1.73_m2}Low>59ProMethodist Texsan HospitalComment on above: Result Comment: Reported eGFR is based on the CKD-EPI 2020 equation that does not use a race coefficient.Performed By: #### NORA, BMP #### [facility] ([id number]) [address] [address] [place] [address]Zsvayaw [Mass/Vol]120 mg/dEInwr60-65DhiFguplpMethodist Texsan Hospital Comment on above:Performed By: #### DEANNA MELENDEZ #### [facility] ([id number]) [address], [facility] [address] [place] [address]Gkicrdtkn [Moles/Vol]4.0 mmol/LNormal3.5-5.0ProMethodist Texsan HospitalComment on above:Performed By: #### NORA BMP #### [facility] ([id number]) [address], [facility] [address] [place], [place] [address]Vmbnmr [Moles/Vol]140 mmol/YSlpmum425-197LzbSvoasw Fremont HospitalComment on above:Performed By: #### DEANNA MELENDEZ #### [facility] ([id number]) [address], [facility] [address] [place], [place] [address]Ujhv nitrogen [Mass/Vol]23 mg/dLNormal5-27ProMethodist Texsan HospitalComment on above:Performed By: #### DEANNA MELENDEZ #### [facility] ([id number]) [address] [address] [place] [address]PJRRSAN AND INRon 64-57-0557VLQ Coag (PPP) [Relative time]1.0 {INR}Normal0.8-1.1PWright-Patterson Medical CenterComment on above:Performed By: #### DEANNA MELENDEZ #### [facility] ([id number]) [address] [address] [place] [address]LZ Coag (PPP) [Time]11.8 sNormal9.8-13.2PWright-Patterson Medical CenterComment on above:Performed By: #### DEANNA MELENDEZ #### [facility] ([id number]) [address] [place], [place] [address]Jcibvrpwk epithelial cells count in urine sediment (number/area) on 45-73-7682Ogyfipedfn cells Auto (Urine sed) [#/Area]RARE #/LPFNONE/RARE [facility] CenterAutomated leukocytes count in urine sediment (number/area)on 69-08-2686NEE Auto (Urine sed) [#/Area]NONE SEEN #/HPF0-2 [facility] CenterAutomated urine specific gravity by refractometryon 12-22-3591Xjczkunw gravity Refractometry automated (U) [Rel density]1.0201.005-1.025[facility] Medical CenterBilirubin Auto test strip (U) [Mass/Vol]on 17-96-7719Toqowyjge (U) [Mass/Vol]NegativeNEGATIVE [facility] CenterCast typing in urine sediment by light microscopyon 97-44-2421Vdpoj LM Nom (Urine sed)NONE SEEN #/LPFNONE SEENTrinity Health System [facility] City Medical CenterColor Auto (U)on 64-66-5341Ievlb (U)LT. YELLOWYELLOW [facility] CenterErythrocyte distribution width Auto (RBC) [Ratio]on 58-34-7177Afrcypjrqhi distribution width (RBC) [Ratio]12.8 %11.0-15.0 [facility] CenterEstimated glomerular filtration rate (GFR) non- Americanon 74-75-0086FRD/1.73 sq M.predicted among non-blacks MDRD (S/P/Bld) [Vol rate/Area]50 mL/min/{1.73_m2}>=60[facility] Medical CenterHematocrit Auto (Bld) [Volume fraction]on 63-13-5775Vmoizkmrhc (Bld) [Volume fraction]40.7 %36.0-48.0[facility] CenterHemoglobin [Mass/volume] in Bloodon 86-59-1779Asexziukme (Bld) [Mass/Vol]13.0 g/dL12.0-16.0 [facility] CenterKetones Auto test strip (U) [Mass/Vol]on 34-71-9954Mtqgvgi (U) [Mass/Vol]NegativeNEGATIVETrinity Health System [facility] Medical CenterLaboratory - Chemistry and Chemistry - challengeon 29-45-5408Cudommu [Mass/Vol]3.5 g/dL3.4-5.0[facility] Medical CenterCalcium [Mass/Vol]8.9 mg/dL8.5-10.1FBrown Memorial HospitalChloride [Moles/Vol]103 mmol/L 98-107[facility] Medical CenterCO2 [Moles/Vol]27.6 mmol/L21.0-32.0 [facility] Medical CenterCreatinine [Mass/Vol]1.07 mg/dL0.55-1.02 [facility] CenterGFR/1.73 sq M.predicted MDRD (S/P/Bld) [Vol rate/Area]mL/min/{1.73_m2}>=60[facility] Medical CenterGlucose [Mass/Vol]96 mg/eR79-716YtwmziumrTrinity Health System Twin City Medical CenterMagnesium [Mass/Vol]2.0 mg/dL1.8-2.4FBrown Memorial HospitalPotassium [Moles/Vol]3.9 mmol/L 3.5-5.1FCleveland Clinic Mercy Hospitalodium [Moles/Vol]140 mmol/J476-130 [facility] Medical CenterUrate [Mass/Vol]3.9 mg/dL2.6-6.0[facility] Medical CenterUrea nitrogen [Mass/Vol]24.0 mg/dL7.0-18.0[facility] Medical CenterUrea nitrogen/Creatinine [Mass ratio]22.4 mg/mgTrinity Health System Twin City Medical CenterLeukocytes [#/volume] corrected for nucleated erythrocytes in Blood by Automated counon 81-55-8429TVM corrected for nucl RBC Auto (Bld) [#/Vol]5.7 10 3/uL4.0-11.0[facility]ult[facility] HospitalH Auto (RBC) [Entitic mass]on 45-93-6621AYY (RBC) [Entitic mass]30.0 pg26.7-34.0 [facility] Medical CenterMCHC Auto (RBC) [Mass/Vol]on 44-14-7902VGKL (RBC) [Mass/Vol]31.9 g/dL29.9-35.2FGrant HospitalV Auto (RBC) [Entitic vol]on 93-15-4877KVL (RBC) [Entitic vol]94.0 fL81.0-99.0[facility] Medical CenterMucus LM Ql (Urine sed)on 70-56-4666Mdvet Ql (Urine sed) NONE SEENNONE SEENTrinity Health System Twin City Medical CenterNo Panel Informationon 316811-Qvkepci Vitamin D Total42.6 ng/mLTr[facility] Comment on above:<20 ng/mL Vit D erwddshqr07-<30 ng/mL Vit D ofxfseyaceqw25-842 ng/mL Vit D sufficient>100 ng/mL Potential ToxicityMiscellaneous TestCOMMENT. [facility] Medical CenterComment on above:Test Ordered: [id number] Prot+CreatU (Random)Creatinine, Urine 58.5 mg/dL CB Reference Range: Not Estab. Protein,Total,Urine 7.2 mg/dL CB Reference Range: Not Estab.Protein/Creat Ratio 123 CB Units of Measure: mg/g creat Reference Range: 0-200Performed at: [id number] Director: Remy Sanchez PhD, Phone: [phone] Hormone (Intact)99 pg/mL15-65 [facility] Medical CenterComment on above:Performed at: [employer] [address] [id number] Director: Remy Sanchez PhD, Phone: [phone] Level3.8 mg/dL2.6-4.7FBrown Memorial HospitalPlatelet mean volume Auto (Bld) [Entitic vol]on 49-47-5758Kiqvzrnk mean volume (Bld) [Entitic vol]8.7 fL9.5-13.5FBrown Memorial Hospital Platelets Auto (Bld) [#/Vol]on 37-48-0609Sncpxkotl (Bld) [#/Vol]167 10 3/uL 150-450Tr[facility] Medical CenterProtein Auto test strip (U) [Mass/Vol]on 85-52-4334Grbfhap (U) [Mass/Vol]NegativeNEG/TRACETrinity Health System Twin City Medical CenterRBC Auto (Bld) [#/Vol]on 90-55-7294UMB (Bld) [#/Vol]4.33 10 6/uL4.20-5.40 [facility]leness Hospitalerum or plasma anion gap determinationon 88-70-7622Tbblr gap [Moles/Vol]13.3 mmol/LFBrown Memorial Hospital Specific gravity Auto test strip (U) [Rel density]on 84-01-0713Bdfysiid gravity (U) [Rel density]CLEARCLEARFBrown Memorial HospitalUrine bacteria detection by automated methodon 30-32-9354Nyuzddfg Auto Ql (U)TRACE #/HPFPremier Health Miami Valley Hospital SouthUrine glucose measurement by test strip (mass/volume)on 44-99-4688Qqlbugz Test strip (U) [Mass/Vol]250 mg/dLNEGProMedica Toledo HospitalUrine hemoglobin detection by automated test stripon 34-75-5492Xofbsmkyoc Auto test strip Ql (U)NegativeNEGPremier Health Miami Valley HospitalUrine nitrite detection by automated test stripon 35-39-8971Ybpxcpg Auto test strip Ql (U)TRACENEGPremier Health Miami Valley HospitalNitrite Auto test strip Ql (U)NegativeNEGPremier Health Miami Valley HospitalUrine sediment crystal identification by light microscopyon 06-07-2023 Crystals LM Nom (Urine sed)None Seen #/HPFRegency Hospital ToledoUrine sediment leukocyte count by microscopy (number/high power field)on 85-98-6609NVV LM.HPF (Urine sed) [#/Area]0-2 #/HPFPremier Health Miami Valley Hospital SouthUrobilinogen Auto test strip (U) [Mass/Vol]on 06-07-2023 Urobilinogen Qn (U)0.2 {Wil'U}/dL0.2-1.0[facility] Medical CenterpH Auto test strip (U)on 06-77-3165bK (U)6.0 [pH]5.0-9.0[facility] Medical CenterLipid 1996 panelon 15-73-1357Ujlveqkbycs [Mass/Vol]144 mg/xNZco350-696 [facility] Grant Medical CenterComment on above:Performed By: #### 53245-8 #### [facility] ([id number]) [address] [facility], [address] [place], [place] [address]Awxmfbddktp in HDL [Mass/Vol]49 mg/dLNormal>39ProMedica Irvington HospitalComment on above:Result Comment: HDL <40 mg/dL - High Risk HDL > or = 40mg/dL- Desirable HDL >60 mg/dL - Negative Risk Performed By: #### 56338-8 #### [facility] ([id number]) [address] [place], [place] [address]Ssbjlkumdxk in LDL [Mass/Vol]49 mg/dLNormal<130ProMethodist Texsan HospitalComment on above:Result Comment: LDL <100 mg/dL - Desirable LDL >160 mg/dL - High Risk Performed By: #### 26954-3 #### [facility] ([id number]) [address] [place], [place] [address]Cbatlsorcyi in VLDL [Mass/Vol]46 mg/dLHigh0-30ProMethodist Texsan HospitalComment on above:Performed By: #### 71494-3 #### [facility] ([id number]) [address] [place], [place] [address]CJBAYFCXLZP:HDL2.2Zokist0.0-5.0ProMethodist Texsan HospitalComment on above:Performed By: #### 04624-0 #### [facility] ([id number]) [address] [place], [place] [address]Fudmwgsuudaq [Mass/Vol]228 mg/zYNqdx43-289XugBkjjjfMethodist Texsan HospitalComment on above:Performed By: #### 27304-6 #### [facility] ([id number]) [address] [place], [place] [address]KZ DEXA AXIAL SKELETONon 52-36-5801[address] [address] XRay Report Signed Patient: ASHLEY OLSON MR#: [id number] : 1945 Acct:[id number] Age/Sex: 78 / F ADM Date: 02/18/23 Loc: RAD Attending Dr: Dana Tapia CORN POPPER Ordering Physician: Dana Tapia NP Date of Service: 02/18/23 Procedure(s): XR DEXA axial skeleton Accession Number(s): [id number] cc: Dana Tapia NP The [address] [id number] Patient Name: ASHLEY OLSON MRN: [id number] date: 1945 Sex: F Assigned Patient Location: [facility] Current Patient Location: [facility] Accession/Order Number: [id number] Exam Date: 02/18/2023 10:42 Report Date: 02/18/2023 [...] - High Fracture Risk Electronically authenticated by: CARLOS DELANEY Date: 02/18/2023 11:23 Dictated By: Carlos Delaney M.D. Signed By: 02/18/23 1126 DD/ 112 TD/TT: Refinery Operator Visbreaking:TBHRadiology, Radiologist, - 02/18/2023 The [address] [place] [address] XRay Report Signed Patient: ASHLEY OLSON MR#: [id number] : 1945 Acct:[id number] Age/Sex: 78 / F ADM Date: 02/18/23 Loc: RAD Attending Dr: Dana Tapia NP Ordering Physician: Dana Tapia NP Date of Service: 02/18/23 Procedure(s): XR DEXA axial skeleton Accession Number(s): [id number] cc: Dana Tapia NP [address] [address] Patient Name: ASHLEY OLSON MRN: [id number] date: 1945 Sex: F Assigned Patient Location: [facility] Current Patient Location: [facility] Accession/Order Number: [id number] Exam Date: 02/18/2023 10:42 Report Date: 02/18/2023 [...] - High Fracture Risk Electronically authenticated by: CARLOS DELANEY Date: 02/18/2023 11:23 Dictated By: Carlos Delaney M.D. Signed By: 02/18/23 1126 DD/ 22 TD/TT: Refinery Operator Visbreaking: KVNG HealthcareRadiology Study observation (narrative)NOMS HealthcareXR DEXA AXIAL SKELETONOrdered By: Radiologist Radiology on 98-72-5050[facility] Work Phone: mm TOMOSYNTHESIS SCREENING BIon 65-53-5578Fs[place], [place] [address] Mammography Report Signed Patient: ASHLEY OLSON MR#: [id number] : 1945 Acct:[id number] Age/Sex: 78 / F ADM Date: 02/15/23 Loc: MAMMO Attending Dr: Dana Tapia NP Ordering Physician: Dana Tapia NP Results: Date of Service: 02/15/23 Follow Up: Procedure(s): MM tomosynthesis screening BI Accession Number(s): [id number] cc: Dana Tapia NP Patient Name: ASHLEY OLSON MR#: [id number] : 1945 Exam Date: 02/15/2023 Ordering Doctor: LIZETTE Tapia CNP RADIOLOGY REPORT PROCEDURE: MM TOMOSYNTHESIS SCREENING BI COMPARISON: MG MAMM SCREEN 3D NICOLE CAD, 02/02/2021. MG MAMM SCREEN 3D NICOLE CAD, 02/05/2022. INDICATIONS: screening Z12.31 Calculator Name NCI Breast Cancer Risk Assessment Tool 5 Year Breast Cancer Risk 3.90% Lifetime Breast Cancer Risk 7.80% Personal Breast Cancer No Personal Ovarian Cancer Yes, Age 51, Hysterectomy Treatments None Family Cancers Mother with breast cancer at age 63; Sister with uterine cancer at age 23; Brother with liver cancer at age 68. LOCATION: The [facility] BREAST COMPOSITION: Scattered areas fibroglandular density. [...] BIOPSIED. Dictated by: Andrés Hancock MD on 02/16/2023 at 09:30 Approved by: Andrés Hancock MD on 02/16/2023 at 09:35 Dictated By: Andrés Hancock M.D. Signed By: 02/16/23 0937 DD/ TD/TT: Refinery Operator Visbreaking:TBHRadiology, RadiologistMD - 02/16/2023 The [place] [id number] Mammography Report Signed Patient: ASHLEY OLSON MR#: [id number] : 1945 Acct:[id number] Age/Sex: 78 / F ADM Date: 02/15/23 Loc: MAMMO Attending Dr: Dana Tapia NP Ordering Physician: Dana Tapia NP Results: Date of Service: 02/15/23 Follow Up: Procedure(s): MM tomosynthesis screening BI Accession Number(s): [id number] cc: Dana Tapia NP Patient Name: ASHLEY OLSON MR#: [id number] : 1945 Exam Date: 02/15/2023 Ordering Doctor: LIZETTE Tapia CNP RADIOLOGY REPORT PROCEDURE: MM TOMOSYNTHESIS SCREENING BI COMPARISON: MG MAMM SCREEN 3D NICOLE CAD, 02/02/2021. MG MAMM SCREEN 3D NICOLE CAD, 02/05/2022. INDICATIONS: screening Z12.31 Calculator Name NCI Breast Cancer Risk Assessment Tool 5 Year Breast Cancer Risk 3.90% Lifetime Breast Cancer Risk 7.80% Personal Breast Cancer No Personal Ovarian Cancer Yes, Age 51, Hysterectomy Treatments None Family Cancers Mother with breast cancer at age 63; Sister with uterine cancer at age 23; Brother with liver cancer at age 68. LOCATION: The [facility] BREAST COMPOSITION: Scattered areas fibroglandular density. [...] BIOPSIED. Dictated by: Andrés Hancock MD on 02/16/2023 at 09:30 Approved by: Andrés Hancock MD on 02/16/2023 at 09:35 Dictated By: Andrés Hancock M.D. Signed By: 02/16/2337 DD/ TD/TT: Refinery Operator Visbreaking: KVNG HealthcareRadiology Study observation (narrative)[facility] TOMOSYNTHESIS SCREENING BIOrdered By: Radiologist Radiology on 19-67-3138Y[facility]F [facility] Work Phone: a1c HEMOGLOBINon 46-05-4483UrM7a (Bld) [Mass fraction] 6.2 %[employer] Other Glucose - FINGER STICKon 89-72-6138Llbpupf [Mass/Vol] 113 mg/dLNort edPULSE Other HbA1c (Bld) [Mass fraction]on 68-61-2640J0I HEMOGLOBIN [facility] [employer] Other PTH INTACTon 60-28-1431ZYN, Nmecrk18 pg/lTYfijey24-26 The [facility] SystemComment on above:Performed By: #### PTHINT #### [facility] [address] [place] [address] Dr. Rizwan FernandoHEMOGRAM AND PLATELon 89-90-6634Rejzruklki (Bld) [Volume fraction]39.5 %Pevdzw03.0-48.0The [facility] SystemComment on above:Performed By: #### HH #### [facility] [address] [place] [address] Dr. Rizwan FernandoHemoglobin (Bld) [Mass/Vol]12.8 g/lCTjjjvp45.0-16.0The [facility] Healthcare SystemComment on above:Performed By: #### HH #### [facility] [address] [place] [address] Dr. Rizwan Navarro (RBC) [Entitic mass]28.9 myComjjy15.7-34.0The [facility] SystemComment on above:Performed By: #### HH #### [facility] [address] [place] [address] Dr. Rizwan Navarro (RBC) [Mass/Vol]32.4 g/tMPirknv57.9-35.2The [facility] SystemComment on above:Performed By: #### HH #### [facility] [address] [place] [address] Dr. Rizwan NavarroV (RBC) [Entitic vol]89.2 yGSfgumv09.0-99.0The [facility] SystemComment on above:Performed By: #### HH #### [facility] [address] [place] [address] Dr. Rizwan FernandoPLT202 103/foMzeahd593-132Hid [facility] SystemComment on above: Performed By: #### HH #### [facility] [address] [place] [address] Dr. Rizwan FernandoRBC4.43 106/ulNormal4.20-5.40The [facility] SystemComment on above:Performed By: #### HH #### [facility] [address] [place] [address] Dr. Rizwan FernandoWBC6.2 103/ulNormal4.0-11.0The [facility] SystemComment on above: Performed By: #### HH #### [facility] [address] [place] [address] Dr. Rizwan Doe AND TIBCon 06-02-2022% DHXGUMKDSV63.2 %NormalThe [facility] SystemComment on above:Performed By: #### RENAL, MG, URIC #### [facility] [address] [place] [address] Dr. Rizwan Doe [Mass/Vol]64.0 ug/mFMzsvci89.0-170.0[facility] Comment on above:Performed By: #### RENAL, MG, URIC #### [facility] [address] [place] [address] Dr. Rizwan FernandoTIBC YADLCD318.0 ug/bMRvvaml382.0-450.0The [facility] Comment on above:Performed By: #### RENAL, MG, URIC #### [facility] [address] [place] [address] Dr. Rizwan GeorgeGNESIUMon 48-87-5741Czkulvhtm [Mass/Vol]1.9 mg/dLNormal1.8-2.4 The [facility] SystemComment on above:Performed By: #### RENAL, MG, URIC #### [facility] [address] [place] [address] Dr. iRzwan FernandoRENAL FUNCTION PANELon 22-78-9565Ygeyfym [Mass/Vol]3.9 g/dLNormal 3.4-5.0The [facility] SystemComment on above:Performed By: #### RENAL, MG, URIC #### [facility] [address] [place] [address] Dr. Rizwan FernandoCalcium [Mass/Vol]9.2 mg/dLNormal8.5-10.1The [facility] Comment on above:Performed By: #### RENAL, MG, URIC #### [facility] [address] [place] [address] Dr. Rizwan FernandoChloride [Moles/Vol]102 mmol/UBstfhh21-323Jni [facility] Comment on above:Performed By: #### RENAL, MG, URIC #### [facility] [address] [place] [address] Dr. Rizwan FernandoCO2 [Moles/Vol]29.2 mmol/BAmwkus83.0-32.0The [facility] Comment on above:Performed By: #### RENAL, MG, URIC #### [facility] [address] [place] [address] Dr. Rizwan FernandoCreatinine [Mass/Vol]1.05 mg/dLCritically high0.55-1.02The [facility] SystemComment on above:Performed By: #### RENAL, MG, URIC #### [facility] [address] [place] [address] Dr. Rizwan OlivaresGFR-AF ANDORRAN>60Normal>=60The [facility] SystemComment on above:Performed By: #### RENAL, MG, URIC #### [facility] [address] [place] [address] Dr. Rizwan OlivaresGFR-NON AF YWNMWFYR71 mL/min/1.04a3Bqnweokkqb low>=60The [facility] SystemComment on above:Performed By: #### RENAL, MG, URIC #### [facility] [address] [place] [address] Dr. Rizwan FernandoGlucose [Mass/Vol]112 mg/dLCritically rghe05-856Qvh [facility] SystemComment on above:Performed By: #### RENAL, MG, URIC #### [facility] [address] [address] [address] Rizwan FernandoPhosphate [Mass/Vol]4.3 mg/dLNormal2.6-4.7The [facility] Comment on above:Performed By: #### RENAL, MG, URIC #### [facility] [address] [place] [address] Dr. Rizwan FernandoPotassium [Moles/Vol]4.0 mmol/LNormal3.5-5.1The [facility] Comment on above:Performed By: #### RENAL, MG, URIC #### [facility] [address] [place] [address] Dr. Rizwan FernandoSodium [Moles/Vol]139 mmol/SWihmow865-760Bsj [facility] Comment on above:Performed By: #### RENAL, MG, URIC #### [facility] [address] [place] [address] Dr. Rizwan FernandoUrea nitrogen [Mass/Vol]24.0 mg/dLCritically high7.0-18.0The [facility] SystemComment on above:Performed By: #### RENAL, MG, URIC #### [facility] [address] [place] [address] Dr. Rizwan FernandoUA RANDOM W/MICROSCOPICon 39-67-2199YPWZHTXZLVIO SEENNormalNONE SEENThe [facility] SystemComment on above:Performed By: #### RENAL, MG, URIC #### [facility] [address] [place] [address] Dr. Rizwan FernandoBilirubin Ql (U)NegativeNormalNEGATIVEThe [facility] Comment on above:Performed By: #### RENAL, MG, URIC #### [facility] [address] [place] [address] Dr. Rizwan FernandoCASTNONE SEENNormalNONE SEENThe [facility] SystemComment on above:Performed By: #### RENAL, MG, URIC #### [facility] [address] [address] [address] Rizwan Bennett (U)CLEARNormalCLEARCleveland Clinic FoundationComment on above: Performed By: #### RENAL, MG, URIC #### [facility] [address] [address] [address] Rizwan Khanna (U)LT. YELLOWNormalYELLOWCleveland Clinic FoundationComment on above:Performed By: #### RENAL, MG, URIC #### [facility] [address] [address] [address] Rizwan FernandoCrystals LM Nom (Urine sed)NONE SEENNormalNONE SEENCleveland Clinic FoundationComtrinity health [facility] on above:Performed By: #### RENAL, MG, URIC #### [facility] [address] [place] [address] Dr. Astorga ChangEpithelial cells LM Ql (Urine sed)NONE SEENNormalNONE SEEN /RARE The [facility] SystemComtrinity health grand rap[facility] hospital on above:Performed By: #### RENAL, MG, URIC #### [facility] [address] [address] [address] Rizwan FernandoGlucose Ql (U)250 mg/dlAbPeoples Hospital Comment on above:Performed By: #### RENAL, MG, URIC #### [facility] [address] [address] [address] Rizwan FernandoHemoglobin Ql (U)NegativeBoone Hospital CenteralNEGTrinity Health System West Campus Comment on above:Performed By: #### RENAL, MG, URIC #### [facility] [address] [address] [address] Rizwan FernandoKetones Ql (U)NegativeNormalNEGKettering Health Main Campus on above:Performed By: #### RENAL, MG, URIC #### [facility] [address] [address] [address] Rizwan FernandoLEUKOCYTESTRACEAbnoalNEGTrinity Health System West CampusComtrinity health [facility] on above:Performed By: #### RENAL, MG, URIC #### [facility] [address] [address] [address] Rizwan Morales SEENNormalNONE SEENCleveland Clinic FoundationComment on above:Performed By: #### RENAL, MG, URIC #### [facility] [address] [place] [address] Dr. Rizwan Vega Ql (U)NegativeNormalNEGATIVEThe [facility] SystemComment on above:Performed By: #### RENAL, MG, URIC #### [facility] [address] [address] [address] Rizwan FernandopH (U)6.0 [pH]Normal5-9The [facility] SystemComment on above: Performed By: #### RENAL, MG, URIC #### [facility] [address] [place] [address] Dr. Rizwan Vicente SEENAbnormal0-2The [facility] SystemComment on above: Performed By: #### RENAL, MG, URIC #### [facility] [address] [place] [address] Dr. Rizwan FernandoSPEC GRAVITY1.938Wprpjz2.005-<=1.025The [facility] SystemComment on above:Performed By: #### RENAL, MG, URIC #### [facility] [address] [place] [address] Dr. Rizwan Pepper PROTEINNegativeNormalNEGATIVE/ TRACEThe [facility] Comment on above:Performed By: #### RENAL, MG, URIC #### [facility] [address] [place] [address] Dr. Rizwan Chamorro Qn (U)0.2 {Wil'U}/dLNormal0.2 - 1.0The [facility] SystemComment on above:Performed By: #### RENAL, MG, URIC #### [facility] [address] [place] [address] Dr. Rizwan FernandoWBC0-2AbnormalNONE SEENThe [facility] SystemComment on above: Performed By: #### RENAL, MG, URIC #### [facility] [address] [place] [address] Dr. Rizwan Medrano ACID SERUMon 06-32-0295Avgiw [Mass/Vol]4.3 mg/dLNormal 2.6-6.0The [facility] SystemComment on above:Performed By: #### RENAL, MG, URIC #### [facility] [address] [place] [address] Dr. Rizwan Springer T PROTEIN CREAT RATIOon 97-21-0210Tmzuvzf (U) [Mass/Vol] 12.9 mg/dLCritically high<=12.0The [facility] SystemComment on above:Performed By: #### URTPCR #### [facility] [address] [place] [address] Dr. Rizwan Hernandez PROT CREAT RAT0.21NoGerman HospitalComment on above: Performed By: #### URTPCR #### [facility] [address] [place] [address] Dr. Rizwan Springer CREAT62.07 mg/fKGlexnx59.00-300.00[facility] Comment on above:Performed By: #### URTPCR #### [facility] [address] [place] [address] Dr. Rizwan FernandoVITAMIN D 25 OHon 56-56-3231HRI D 25-OH42.4 ng/mLNormalThe [facility] SystemComtr[facility] on above:Performed By: #### RENAL, MG, URIC #### [facility] [address] [place] [address] Dr. Rizwan Peter D RANGESSEE BELOWAultman Orrville HospitalComment on above: Result Comment: <20 ng/mL Vit D deficient 20 - <30 ng/mL Vit D insufficient 30 - 100 ng/mL Vit D sufficient >100 ng/mL Potential ToxicityPerformed By: #### RENAL, MG, URIC #### [facility] [address] [place] [address] Dr. Rizwan FernandoA1C HEMOGLOBINon 12-11-2170WeB3z (Bld) [Mass fraction]5.8 %[employer] Other Glucose - FINGER STICKon 95-16-6512Ebgiupk [Mass/Vol] 135 mg/dLNort edPULSE Other HbA1c (Bld) [Mass fraction]on 27-99-6326U8M HEMOGLOBIN [employer] Other PROF CHEM 8 (BAS METB)on 74-01-0216Hppmi gap [Moles/Vol]13.7 mmol/LNormalThe [facility] SystemComment on above:Performed By: #### RENAL, MG, URIC #### [facility] [address] [address] [address] Rizwan FernandoCalcium [Mass/Vol]9.1 mg/dLNormal8.5-10.1The [facility] Comment on above:Performed By: #### RENAL, MG, URIC #### [facility] [address] [place] [address] Dr. Rizwan FernandoChloride [Moles/Vol]103 mmol/UGncrdb33-741Dux [facility] Comment on above:Performed By: #### RENAL, MG, URIC #### [facility] [address] [address] [address] Rizwan FernandoCO2 [Moles/Vol]28.8 mmol/SHvrnfo64.0-32.0The [facility] Comment on above:Performed By: #### RENAL, MG, URIC #### [facility] [address] [address] [address] Rizwan FernandoCreatinine [Mass/Vol]1.21 mg/dLCritically high0.55-1.02The [facility] SystemComment on above:Performed By: #### RENAL, MG, URIC #### [facility] [address] [address] [address] Astorga ChangEGFR-AF DJJHACVC59 mL/min/1.28e4Vehfwxzsbq low>=60The [facility] SystemComment on above:Performed By: #### RENAL, MG, URIC #### [facility] [address] [address] [address] Astorga ChangEGFR-NON AF KTIDESND48 mL/min/1.29d4Syzfvzrmls low>=60The [facility] SystemComment on above:Performed By: #### RENAL, MG, URIC #### [facility] [address] [address] [address] Rizwan FernandoGlucose [Mass/Vol]121 mg/dLCritically tsza30-494Yvy [facility] SystemComment on above:Performed By: #### RENAL, MG, URIC #### [facility] [address] [address] [address] Rizwan FernandoPotassium [Moles/Vol]4.5 mmol/LNormal3.5-5.1[facility] Comment on above:Performed By: #### RENAL, MG, URIC #### [facility] [address] [address] [address] Rizwan FernandoSodium [Moles/Vol]141 mmol/YMpnscn345-917QrnC[facility] Clinic Foundation Comment on above:Performed By: #### RENAL, MG, URIC #### [facility] [address] [address] [address] Rizwan FernandoUrea nitrogen [Mass/Vol]26.0 mg/dLCritically high7.0-18.0[facility] FoundationComment on above:Performed By: #### RENAL, MG, URIC #### [facility] [address] [place] [address] Dr. Rizwan Whalen nitrogen/Creatinine [Mass ratio]21.5 mg/mgNormalThe [facility] SystemComment on above:Performed By: #### RENAL, MG, URIC #### [facility] [address] [place] [address] Dr. Rizwan FernandoMG MAMM SCREEN 3D NICOLE CADon 29-50-1388QO MAMM SCREEN 3D NICOLE CAD Patient: ASHLEY OLSON Exam Date: 02/05/2022 : 1945 Gender:F Ordering : LIZETTE TAPIA CNP Admission #: [id number] Family : Order #: [id number] CLICK HERE TO VIEW EXAM RADIOLOGY REPORT [...] liver cancer at age 70. LOCATION: [facility] BREAST COMPOSITION: Scattered areas fibroglandular density. [...] by: Andrés Hancock MD on 02/05/2022 at 09:50[facility] RENAL FUNCTION PANELon 32-93-8611Jkagyoo [Mass/Vol]4.4 g/dLNormal3.4-5.0[facility] FoundationComment on above:Performed By: #### RENAL, MG, URIC #### [facility] [address] [place] [address] Dr. Rizwan FernandoCalcium [Mass/Vol]9.5 mg/dLNormal8.5-10.1[facility] Comment on above:Performed By: #### RENAL, MG, URIC #### [facility] [address] [place] [address] Dr. Rizwan FernandoChloride [Moles/Vol]102 mmol/OBhjmqh05-764UhvCleveland Clinic Foundation Comment on above:Performed By: #### RENAL, MG, URIC #### [facility] [address] [address] [address] Rizwan FernandoCO2 [Moles/Vol]29.2 mmol/LCbvvqb77.0-32.0The [facility] Comment on above:Performed By: #### RENAL, MG, URIC #### [facility] [address] [place] [address] Dr. Rizwan FernandoCreatinine [Mass/Vol]1.04 mg/dLCritically high0.55-1.02[facility] FoundationComment on above:Performed By: #### RENAL, MG, URIC #### [facility] [address] [place] [address] Dr. Rizwan OlivaresGFR-AF ANDORRAN>60Normal>=60The [facility] on above:Performed By: #### RENAL, MG, URIC #### [facility] [address] [place] [address] Dr. Rizwan OlivaresGFR-NON AF RDMEJRXY07 mL/min/1.83a1Dkkvhtexkc low>=60The [facility] SystemComment on above:Performed By: #### RENAL, MG, URIC #### [facility] [address] [place] [address] Dr. Rizwan FernandoGlucose [Mass/Vol]101 mg/hTMovpxi15-214OspCleveland Clinic Foundation Comment on above:Performed By: #### RENAL, MG, URIC #### [facility] [address] [place] [address] Dr. Rizwan FernandoPhosphate [Mass/Vol]5.0 mg/dLCritically high2.6-4.7The [facility] on above:Performed By: #### RENAL, MG, URIC #### [facility] [address] [place] [address] Dr. Rizwan FernandoPotassium [Moles/Vol]4.1 mmol/LNormal3.5-5.1[facility] Comment on above:Performed By: #### RENAL, MG, URIC #### [facility] [address] [place] [address] Dr. Rizwan FernandoSodium [Moles/Vol]141 mmol/UQgaogr568-053TrlCleveland Clinic Foundation Comment on above:Performed By: #### RENAL, MG, URIC #### [facility] [address] [place] [address] Dr. Rizwan FernandoUrea nitrogen [Mass/Vol]24.0 mg/dLCritically high7.0-18.0The [facility] on above:Performed By: #### RENAL, MG, URIC #### [facility] [address] [place] [address] Dr. Rizwan FernandoA1C HEMOGLOBINon 38-49-0611AvO2m (Bld) [Mass fraction]6.1 %[facility] Other Glucose - FINGER STICKon 28-63-2579Lfjygpz [Mass/Vol] 137 mg/dLNorth edPULSE Other HbA1c (Bld) [Mass fraction]on 76-68-9670C1S HEMOGLOBIN [facility] Other PTH INTACTon 87-38-8854DIQ, Ytbbos26 pg/dOBiaxjj51-03 The [facility] SystemComment on above:Performed By: #### RENAL, MG, URIC #### [facility] [address] [place] [address] Dr. Rizwan FernandoFERRITINon 62-67-9452Hqqzcjvv [Mass/Vol]89.0 ng/mLNormal8.0-252.0 The [facility] SystemComment on above:Performed By: #### RENAL, MG, URIC #### [facility] [address] [place] [address] Dr. Rizwan FernandoHEMOGRAM AND PLATELon 45-20-5303Bkizddirky (Bld) [Volume fraction]38.3 %Mwirah32.0-48.0The [facility] SystemComment on above:Performed By: #### RENAL, MG, URIC #### [facility] [address] [place] [address] Dr. Rizwan FernandoHemoglobin (Bld) [Mass/Vol]12.5 g/tPPlpfcg53.0-16.0The [facility] SystemComment on above:Performed By: #### RENAL, MG, URIC #### [facility] [address] [place] [address] Dr. Rizwan FernandoHU[facility] (RBC) [Entitic mass]28.9 pvAelnrs10.7-34.0The [facility] SystemComment on above:Performed By: #### RENAL, MG, URIC #### [facility] [address] [place] [address] Dr. Rizwan FernandoFAXTON [facility] (RBC) [Mass/Vol]32.6 g/sDNadcdi38.9-35.2The [facility] SystemComment on above:Performed By: #### RENAL, MG, URIC #### [facility] [address] [place] [address] Dr. Rizwan Meeks (RBC) [Entitic vol]88.5 lFFelnaw70.0-99.0The [facility] SystemComment on above:Performed By: #### RENAL, MG, URIC #### [facility] [address] [place] [address] Dr. Rizwan FernandoPLT188 103/oaLqszzg412-265Nma [facility] SystemComment on above: Performed By: #### RENAL, MG, URIC #### [facility] [address] [place] [address] Dr. Rizwan MeraC4.33 106/ulNormal4.20-5.40The [facility] SystemComment on above:Performed By: #### RENAL, MG, URIC #### [facility] [address] [place] [address] Dr. Rizwan FernandoWBC5.4 103/ulNormal4.0-11.0The [facility] SystemComment on above: Performed By: #### RENAL, MG, URIC #### [facility] [address] [place] [address] Dr. Rizwan Doe AND TIBCon 12-04-2021% RAIXPHDKCK08.3 %NormalThe [facility] SystemComment on above:Performed By: #### RENAL, MG, URIC #### [facility] [address] [place] [address] Dr. Rizwan Doe [Mass/Vol]56.0 ug/pTPwustr36.0-170.0[facility] Comment on above:Performed By: #### RENAL, MG, URIC #### [facility] [address] [place] [address] Dr. Rizwan FernandoTIBC BPQMMY222.0 ug/nKBitpjl456.0-450.0The [facility] Comment on above:Performed By: #### RENAL, MG, URIC #### [facility] [address] [address] [address] Rizwan FernandoLIPID PROFILEon 98-70-1230NXYR-HDL RATIO NORMSWilson Memorial HospitalComment on above:Result Comment: 3.3 - 4.4 LOW RISK 4.4 - 7.1 AVERAGE RISK 7.1 - 11.0 MODERATE RISK >11.0 HIGH RISKPerformed By: #### RENAL, MG, URIC #### [facility] [address] [address] [address] Rizwan FernandoCholesterol [Mass/Vol]152 mg/dLNormal<=200The [facility] Comment on above:Performed By: #### RENAL, MG, URIC #### [facility] [address] [place] [address] Dr. Rizwan FernandoCholesterol in HDL [Mass/Vol]57 mg/tBPlwpns86-32OxzCleveland Clinic FoundationComment on above:Performed By: #### RENAL, MG, URIC #### [facility] [address] [place] [address] Dr. Rizwan FernandoCholesterol in LDL [Mass/Vol]41.4 mg/dLAultman Orrville HospitalComment on above:Performed By: #### RENAL, MG, URIC #### [facility] [address] [place] [address] Dr. Rizwan Mahmoodesterchemo.total/Cholesterol in HDL [Mass ratio]2.7 {ratio} NormalCleveland Clinic FoundationComment on above:Performed By: #### RENAL, MG, URIC #### [facility] [address] [place] [address] Dr. Rizwan Williamson NORMAL> or = 60 mg/dl - LOW CARDIOVASCULAR RISK <40 mg/dl - HIGH CARDIOVASCULAR RISKAultman Orrville HospitalComment on above:Performed By: #### RENAL, MG, URIC #### [facility] [address] [place] [address] Dr. Rizwan FernandoLDL CALC NORMALSEE St. Anthony's HospitalComment on above:Result Comment: <100 mg/dl OPTIMAL 100 - 129 mg/dl NEAR OR ABOVE OPTIMAL 130 - 159 mg/dl BORDERLINE HIGH 160 - 189 mg/dl HIGH >190 mg/dl VERY HIGH Performed By: #### RENAL, MG, URIC #### [facility] [address] [place] [address] Dr. Rizwan FernandoTriglyceride [Mass/Vol]268 mg/dLCritically high<=150[facility] FoundationComtrinity health [facility] on above:Performed By: #### RENAL, MG, URIC #### [facility] [address] [place] [address] Dr. Rizwan FernandoVLDL CALC53.6 mg/dLNoGerman HospitalComment on above: Performed By: #### RENAL, MG, URIC #### [facility] [address] [place] [address] Dr. Rizwan FernandoMAGNESIUMon 42-63-5817Exdgzupus [Mass/Vol]1.6 mg/dLCritically low 1.8-2.4The [facility] SystemComtr[facility] on above:Performed By: #### RENAL, MG, URIC #### [facility] [address] [place] [address] Dr. Rizwan PeñaROMONA CREAT RATIO RANDOMon 36-56-2314eFMZ7.6 mg/LNormal<=30.0 [facility] FoundationComtrinity health [facility] on above:Performed By: #### MCRR #### [facility] [address] [place] [address] Dr. Rizwan Austin CR RATIO26.9 mg/gNormal0.0-29.9[facility] on above:Performed By: #### MCRR #### [facility] [address] [place] [address] Dr. Rizwan Austin CR RATIO RANGESEE BELOWNoGerman HospitalComtrinity health [facility] on above:Result Comment: NO MICROALBUMINURIA 0-29 MG/G CLINICAL MICROALBUMINURIA 30-300 MG/G MACROALBUMINURIA >300 MG/GPerformed By: #### MCRR #### [facility] [address] [place] [address] Dr. Rizwan Springer CREAT59.53 mg/uCHeskik57.00-300.00[facility] Comment on above:Performed By: #### MCRR #### [facility] [address] [address] [address] Rizwan PenaUSon 39-34-1163Tjcoupzqp [Mass/Vol]4.0 mg/dLNormal2.6-4.7 The [facility] SystemComment on above:Performed By: #### RENAL, MG, URIC #### [facility] [address] [place] [address] Dr. Rizwan FernandoPROF 14(COMP METB)on 92-99-7290Omtwqkl [Mass/Vol]4.0 g/dLNormal 3.4-5.0The [facility] SystemComment on above:Performed By: #### RENAL, MG, URIC #### [facility] [address] [place] [address] Dr. Rizwan FernandoAlbumin/Globulin [Mass ratio]1.3 {ratio}NormalThe [facility] SystemComment on above:Performed By: #### RENAL, MG, URIC #### [facility] [address] [place] [address] Dr. Rizwan Miramontes [Catalytic activity/Vol]118 U/LCritically yeax87-717Fkh [facility] SystemComment on above:Performed By: #### RENAL, MG, URIC #### [facility] [address] [place] [address] Dr. Rizwan Kelly [Catalytic activity/Vol]23 U/ODqslgr64-93Ugt [facility] SystemComment on above:Performed By: #### RENAL, MG, URIC #### [facility] [address] [place] [address] Dr. Rizwan Nevarez gap [Moles/Vol]10.7 mmol/LNormalThe [facility] Comment on above:Performed By: #### RENAL, MG, URIC #### [facility] [address] [place] [address] Dr. Rizwan Santiago [Catalytic activity/Vol]20 U/KDmfhgc73-26Zqm [facility] SystemComment on above:Performed By: #### RENAL, MG, URIC #### [facility] [address] [address] [address] Rizwan FernandoBilirubin [Mass/Vol]0.6 mg/dLNormal0.2-1.0The [facility] Comment on above:Performed By: #### RENAL, MG, URIC #### [facility] [address] [address] [address] Rizwan FernandoCalcium [Mass/Vol]8.9 mg/dLNormal8.5-10.1The [facility] Comment on above:Performed By: #### RENAL, MG, URIC #### [facility] [address] [place] [address] Dr. Rizwan FernandoChloride [Moles/Vol]103 mmol/EWodtnt60-646Xfd [facility] Comment on above:Performed By: #### RENAL, MG, URIC #### [facility] [address] [place] [address] Dr. Rizwan FernandoCO2 [Moles/Vol]28.2 mmol/RJlcwjv30.0-32.0The [facility] Comment on above:Performed By: #### RENAL, MG, URIC #### [facility] [address] [address] [address] Rizwan FernandoCreatinine [Mass/Vol]1.04 mg/dLCritically high0.55-1.02[facility] FoundationComment on above:Performed By: #### RENAL, MG, URIC #### [facility] [address] [place] [address] Dr. Rizwan OlivaresGFR-AF ANDORRAN>60Normal>=60The [facility] SystemComment on above:Performed By: #### RENAL, MG, URIC #### [facility] [address] [place] [address] Dr. Rizwan OlivaresGFR-NON AF UZBILYTF14 mL/min/1.11y6Rqjhynbgjo low>=60The [facility] SystemComment on above:Performed By: #### RENAL, MG, URIC #### [facility] [address] [place] [address] Dr. Rizwan FernandoGlobulin (S) [Mass/Vol]3.1 g/dLNormalThe Misha HospitalComment on above:Performed By: #### RENAL, MG, URIC #### [facility] [address] [address] [address] Rizwan FernandoGlucose [Mass/Vol]115 mg/dLCritically wlii54-236Kfj [facility] SystemComment on above:Performed By: #### RENAL, MG, URIC #### [facility] [address] [place] [address] Dr. Rizwan FernandoPotassium [Moles/Vol]3.9 mmol/LNormal3.5-5.1The [facility] Comment on above:Performed By: #### RENAL, MG, URIC #### [facility] [address] [place] [address] Dr. Rizwan FernandoProtein [Mass/Vol]7.1 g/dLNormal6.4-8.2[facility] Comment on above:Performed By: #### RENAL, MG, URIC #### [facility] [address] [place] [address] Dr. Rizwan Kimdium [Moles/Vol]138 mmol/OTcxurp132-742FraCleveland Clinic Foundation Comment on above:Performed By: #### RENAL, MG, URIC #### [facility] [address] [place] [address] Dr. Rizwan FernandoUrea nitrogen [Mass/Vol]23.0 mg/dLCritically high7.0-18.0The [facility] SystemComment on above:Performed By: #### RENAL, MG, URIC #### [facility] [address] [place] [address] Dr. Rizwan Whalen nitrogen/Creatinine [Mass ratio]22.1 mg/mgNoGerman HospitalComment on above:Performed By: #### RENAL, MG, URIC #### [facility] [address] [place] [address] Dr. Rizwan FernandoUA RANDOM W/MICROSCOPICon 14-09-6942YXXHVBXTWKTY SEENMetropolitan [facility] SEENCleveland Clinic FoundationComment on above:Performed By: #### RENAL, MG, URIC #### [facility] [address] [address] [address] Rizwan Renteriairubin Ql (U)NegativeNormalNEGATIVECleveland Clinic Foundation Comment on above:Performed By: #### RENAL, MG, URIC #### [facility] [address] [address] [address] Rizwan BloodNONMyke SEENNormalNONE SEENCleveland Clinic FoundationComment on above:Performed By: #### RENAL, MG, URIC #### [facility] [address] [address] [address] Rizwan FernandoClarity (U)CLEARNormalCLEARCleveland Clinic FoundationComment on above: Performed By: #### RENAL, MG, URIC #### [facility] [address] [place] [address] Dr. Rizwan Khanna (U)LT. YELLOWNormalYELLOWCleveland Clinic FoundationComment on above:Performed By: #### RENAL, MG, URIC #### [facility] [address] [place] [address] Dr. Rizwan FernandoCrystals LM Nom (Urine sed)NONE SEENNormalNONE SEENCleveland Clinic FoundationComment on above:Performed By: #### RENAL, MG, URIC #### [facility] [address] [place] [address] Dr. Rizwan Ríosthelial cells LM Ql (Urine sed)RARENormalNONE SEEN /RARECleveland Clinic FoundationComment on above:Performed By: #### RENAL, MG, URIC #### [facility] [address] [address] [address] Rizwan FernandoGlucose Ql (U)NegativeNormalNEGATIVECleveland Clinic FoundationComment on above:Performed By: #### RENAL, MG, URIC #### [facility] [address] [place] [address] Dr. Rizwan FernandoHemoglobin Ql (U)NegativeNormalNEGATIVECleveland Clinic Foundation Comment on above:Performed By: #### RENAL, MG, URIC #### [facility] [address] [address] [address] Rizwan FernandoKetones Ql (U)NegativeNormalNEGATIVEThe [facility] SystemComment on above:Performed By: #### RENAL, MG, URIC #### [facility] [address] [address] [address] Rizwan WooOCYTESTRACEAbnormalNEGATIVEThe [facility] SystemComment on above:Performed By: #### RENAL, MG, URIC #### [facility] [address] [address] [address] Rizwan Morales SEENNormalNONE SEENThe [facility] SystemComment on above:Performed By: #### RENAL, MG, URIC #### [facility] [address] [address] [address] Rizwan Vega Ql (U)NegativeNormalNEGATIVEThe [facility] SystemComment on above:Performed By: #### RENAL, MG, URIC #### [facility] [address] [address] [address] Rizwan FernandopH (U)6.0 [pH]Normal5-9The [facility] SystemComment on above: Performed By: #### RENAL, MG, URIC #### [facility] [address] [address] [address] Rizwan Vicente SEENAbnormal0-2The [facility] on above: Performed By: #### RENAL, MG, URIC #### [facility] [address] [address] [address] Rizwan FernandoSPEC GRAVITY1.718Qkkqvv3.005-<=1.025The [facility] Hospitalment on above:Performed By: #### RENAL, MG, URIC #### [facility] [address] [address] [address] Rizwan Pepper PROTEINNegativeNormalNEGATIVE/ TRACEThe [facility] Comment on above:Performed By: #### RENAL, MG, URIC #### [facility] [address] [address] [address] Rizwan Chamorro Qn (U)0.2 {Wil'U}/dLNormal0.2 - 1.0The [facility] HospitalComment on above:Performed By: #### RENAL, MG, URIC #### [facility] [address] [place] [address] Dr. Rizwan FernandoWBC0-2AbnormalNONE SEENThe [facility] SystemComment on above: Performed By: #### RENAL, MG, URIC #### [facility] [address] [place] [address] Dr. Rizwan FernandoURIC ACID SERUMon 01-59-5608Ygaxd [Mass/Vol]5.5 mg/dLNormal 2.6-6.0The [facility] SystemComment on above:Performed By: #### RENAL, MG, URIC #### [facility] [address] [place] [address] Dr. Rizwan Springer T PROTEIN CREAT RATIOon 70-83-4198Ivrjgvc (U) [Mass/Vol] 10.7 mg/dLNormal<=12.0The St[facility] Vincent Hospitalment on above:Performed By: #### RENAL, MG, URIC #### [facility] [address] [place] [address] Dr. Rizwan Hernandez PROT CREAT RAT0.18NormalThe [facility] SystemComment on above: Performed By: #### RENAL, MG, URIC #### [facility] [address] [place] [address] Dr. Rizwan Springer CREAT59.94 mg/aPPygsri48.00-300.00The [facility] Comment on above:Performed By: #### RENAL, MG, URIC #### [facility] [address] [place] [address] Dr. Rizwan FernandoVITAMIN B12on 39-89-8931Vzsycmnvi (Vitamin B12) [Mass/Vol]1679.0 pg/mLCritically yvad368.0-986.0The [facility] Hospitalment on above:Performed By: #### VITB12 #### [facility] [address] [place] [address] Dr. Rizwan FernandoVITAMIN D 25 OHon 75-22-0885LEB D 25-OH38.3 ng/mLNormalCleveland Clinic FoundationComment on above:Performed By: #### RENAL, MG, URIC #### [facility] [address] [place] [address] Anthony's HospitalComment on above: Result Comment: <20 ng/mL Vit D deficient 20 - <30 ng/mL Vit D insufficient 30 - 100 ng/mL Vit D sufficient >100 ng/mL Potential ToxicityPerformed By: #### RENAL, MG, URIC #### [facility] [address] [place] [address] Dr. Rizwan Lynch AND PARASITE EXAMINATIONon 69-63-6910Rqa + Parasite ExamFinal reportBarnesville Hospital on above:Result Comment: These results were obtained using wet preparation(s) and trichrome stained smear. This test does not include testing for Cryptosporidium parvum, Cyclospora, or Microsporidia.Performed By: #### RENAL, MG, URIC #### [facility] [address] [place] [address] Dr. Rizwan Dotson 1CAdena Fayette Medical CenterComment on above:Result Comment: No ova, cysts, or parasites seen. . One negative specimen does not rule out the possibility of a parasitic infection.Performed By: #### RENAL, MG, URIC #### [facility] [address] [place] [address] Dr. Rizwan Santos HEMOGLOBINon 82-96-3399FqC8q (Bld) [Mass fraction]6.1 %[facility] Broadersheet Other Glucose - FINGER STICKon 96-21-0978Ocepsaw [Mass/Vol] 153 mg/dLNort edPULSE Other HbA1c (Bld) [Mass fraction]on 66-27-7028A5A HEMOGLOBIN [facility] Broad[employer]heet Other STOOL CULTUREon 70-40-9140Hftpqiqiicjzp CultureFinal reportAultman Orrville HospitalComment on above:Performed By: #### CXSTOOL #### [facility] [address] [place] [address] Dr. Astorga ChangE coli Shiga Toxin EIANegativeNormalNegativeThe [facility] Comment on above:Performed By: #### CXSTOOL #### [facility] [address] [place] [address] Dr. Rizwan Dotson 1CommentNoGerman HospitalComment on above:Result Comment: No Salmonella or Shigella recovered.Performed By: #### CXSTOOL #### [facility] [address] [place] [address] Dr. Rizwan Dotson Comment: No Campylobacter species isolated. Salmonella/Shigella ScreenFinal reportNoGerman HospitalComment on above:Performed By: #### CXSTOOL #### [facility] [address] [place] [address] Dr. Rizwan Cole. DIFF PCRon 2C. DIFFICILE PCRNegativeNormalNEGATIVEThe [facility] SystemComment on above:Performed By: #### RENAL, MG, URIC #### [facility] [address] [place] [address] Dr. Rizwan Ceron BLD IMMUNOASSAYon 23-06-5312HUJAUV BLOODNegativeNormal NEGATIVEThe [facility] SystemComment on above:Performed By: #### RENAL, MG, URIC #### [facility] [address] [place] [address] Dr. Rizwan FernandoFERRITINon 55-77-2951Dnifqsex [Mass/Vol]64.0 ng/mLNormal 11.1-264.0The [facility] SystemComment on above:Performed By: #### RENAL, MG, URIC #### [facility] [address] [place] [address] Dr. Rizwan FernandoHEMOGRAM AND PLATELon 31-26-4509Pmrgfmsnum (Bld) [Volume fraction]39.1 %Hjkovs86.0-48.0The [facility] SystemComtrinity health [facility] on above:Performed By: #### RENAL, MG, URIC #### [facility] [address] [place] [address] Dr. Rizwan FernandoHemoglobin (Bld) [Mass/Vol]12.6 g/sTLhjirl49.0-16.0The [facility] SystemComment on above:Performed By: #### RENAL, MG, URIC #### [facility] [address] [place] [address] Dr. Rizwan Navarro (RBC) [Entitic mass]28.3 rfHmelzu98.7-34.0The [facility] SystemComment on above:Performed By: #### RENAL, MG, URIC #### [facility] [address] [place] [address] Dr. Rizwan Navarro (RBC) [Mass/Vol]32.2 g/wDMtnqjf70.9-35.2The [facility] SystemComment on above:Performed By: #### RENAL, MG, URIC #### [facility] [address] [place] [address] Dr. Rizwan Navarro (RBC) [Entitic vol]87.9 jLCttkep86.0-99.0The [facility] SystemComment on above:Performed By: #### RENAL, MG, URIC #### [facility] [address] [place] [address] Dr. Rizwan FernandoPLT181 103/ncHflmuq858-423Atc [facility] SystemComment on above: Performed By: #### RENAL, MG, URIC #### [facility] [address] [place] [address] Dr. Rizwan FernandoRBC4.45 106/ulNormal4.20-5.40The [facility] SystemComment on above:Performed By: #### RENAL, MG, URIC #### [facility] [address] [place] [address] Dr. Rizwan FernandoWBC7.3 103/ulNormal4.0-11.0The [facility] SystemComtrinity health grand rap[facility] hospital on above: Performed By: #### RENAL, MG, URIC #### [facility] [address] [place] [address] Dr. Rizwan Doe AND TIBCon 06-12-2021% ZCGOISJATL38.4 %NormalThe [facility] SystemComment on above:Performed By: #### RENAL, MG, URIC #### [facility] [address] [place] [address] Dr. Rizwan Bensonn [Mass/Vol]55.0 ug/iEItknee95.0-170.0The [facility] Comment on above:Performed By: #### RENAL, MG, URIC #### [facility] [address] [place] [address] Dr. Rizwan FernandoTIBC QLKUCU914.0 ug/rYClueqy443.0-497.0The [facility] Comment on above:Performed By: #### RENAL, MG, URIC #### [facility] [address] [place] [address] Dr. Rizwan FernandoMAGNESIUMon 48-33-7234Tyzxbfwgi [Mass/Vol]1.9 mg/dLNormal1.6-2.3 The [facility] SystemComment on above:Performed By: #### RENAL, MG, URIC #### [facility] [address] [place] [address] Dr. Rizwan VidalAL FUNCTION PANELon 86-37-2057Jjwgywj [Mass/Vol]3.8 g/dLNormal 3.4-5.0The [facility] SystemComment on above:Performed By: #### RENAL, MG, URIC #### [facility] [address] [place] [address] Dr. Rizwan FernandoCalcium [Mass/Vol]8.6 mg/dLNormal8.5-10.1[facility] Comment on above:Performed By: #### RENAL, MG, URIC #### [facility] [address] [place] [address] Dr. Rizwan FernandoChloride [Moles/Vol]102 mmol/USrytha58-841ThbCleveland Clinic Foundation Comment on above:Performed By: #### RENAL, MG, URIC #### [facility] [address] [place] [address] Dr. Rizwan FernandoCO2 [Moles/Vol]31.2 mmol/LCritically high22.0-30.0The [facility] SystemComment on above:Performed By: #### RENAL, MG, URIC #### [facility] [address] [address] [address] Rizwan FernandoCreatinine [Mass/Vol]1.07 mg/dLCritically high0.52-1.04The [facility]. Vincent Hospitalment on above:Performed By: #### RENAL, MG, URIC #### [facility] [address] [address] [address] Astorga ChangEGFR-AF ANDORRAN>60Normal>=60The [facility] SystemComment on above:Performed By: #### RENAL, MG, URIC #### [facility] [address] [address] [address] Astorga ChangEGFR-NON AF IEZGEOWU29 mL/min/1.57o1Uprjtpickn low>=60The [facility]. [facility] Hospitalment on above:Performed By: #### RENAL, MG, URIC #### [facility] [address] [place] [address] Dr. Rizwan FernandoGlucose [Mass/Vol]122 mg/dLCritically viqg89-021Nyl [facility] SystemComment on above:Performed By: #### RENAL, MG, URIC #### [facility] [address] [place] [address] Dr. Rizwan FernandoPhosphate [Mass/Vol]4.6 mg/dLCritically high2.5-4.5The [facility] on above:Performed By: #### RENAL, MG, URIC #### [facility] [address] [place] [address] Dr. Rizwan FernandoPotassium [Moles/Vol]4.1 mmol/LNormal3.4-5.0The [facility] Comment on above:Performed By: #### RENAL, MG, URIC #### [facility] [address] [address] [address] Rizwan FernandoSodium [Moles/Vol]138 mmol/FGstufz961-138Wyu [facility] Comment on above:Performed By: #### RENAL, MG, URIC #### [facility] [address] [place] [address] Dr. Rizwan FernandoUrea nitrogen [Mass/Vol]27.0 mg/dLCritically high7.0-18.0The Misha HospitalComment on above:Performed By: #### RENAL, MG, URIC #### [facility] [address] [address] [address] Rizwan Pepper RANDOM W/MICROSCOPICon 40-11-2310DXQSGVRGEAFP SEENNormalNONE SEENCleveland Clinic FoundationComment on above:Performed By: #### UAMIC #### [facility] [address] [address] [address] Rizwan Renteriairubin Ql (U)NegativeNormalNEGATIVEAvita Health System Bucy[facility] on above:Performed By: #### UAMIC #### [facility] [address] [address] [address] Rizwan FernandoCASTNONMyke SEENNormalNONE SEENMemorial Health System Selby General Hospitalment on above:Performed By: #### UAMIC #### [facility] [address] [address] [address] Rizwan Bennett (U)CLEARNormalCLEARCleveland Clinic FoundationComment on above: Performed By: #### UAMIC #### [facility] [address] [address] [address] Rizwan Khanna (U)LT. YELLOWNormalYBrown Memorial HospitalComtrinity health [facility] on above:Performed By: #### UAMIC #### [facility] [address] [place] [address] Dr. Rizwan FernandoCrystals LM Nom (Urine sed)NONE SEENNormalNONE SEENCleveland Clinic FoundationComment on above:Performed By: #### UAMIC #### [facility] [address] [place] [address] Dr. Astorga ChangEpithelial cells LM Ql (Urine sed)RARENormalNONE SEEN /RARECleveland Clinic FoundationComment on above:Performed By: #### UAMIC #### [facility] [address] [place] [address] Dr. Rizwan Nicholsonose Ql (U)NegativeNormalNEGATIVECleveland Clinic FoundationComment on above:Performed By: #### UAMIC #### [facility] [address] [address] [address] Rizwan FernandoHemoglobin Ql (U)NegativeNormalNEGATIVEThe [facility] on above:Performed By: #### UAMIC #### [facility] [address] [address] [address] Rizwan FernandoKetones Ql (U)NegativeNormalNEGATIVETuscarawas Hospital HospitalComment on above:Performed By: #### UAMIC #### [facility] [address] [address] [address] Rizwan FernandoLEUKOCYTESNegativeNormalNEGATIVEThe [facility] SystemComment on above:Performed By: #### UAMIC #### [facility] [address] [place] [address] Dr. Rizwan FernandoMUCOUSNONE SEENNormalNONE SEENCleveland Clinic FoundationComment on above:Performed By: #### UAMIC #### [facility] [address] [place] [address] Dr. Rizwan FernandoNitrite Ql (U)NegativeNormalNEGATIVECleveland Clinic FoundationComment on above:Performed By: #### UAMIC #### [facility] [address] [place] [address] Dr. Rizwan FernandopH (U)6.0 [pH]Normal5-9The [facility] SystemComment on above: Performed By: #### UAMIC #### [facility] [address] [place] [address] Dr. Rizwan FernandoRBCNONE SEENAbnormal0-2The [facility] SystemComment on above: Performed By: #### UAMIC #### [facility] [address] [address] [address] Rizwan FernandoSPEC GRAVITY1.519Elsgzn3.005-<=1.025The [facility] SystemComment on above:Performed By: #### UAMIC #### [facility] [address] [address] [address] Rizwan FernandoTRICHNONE SEENNormalNONE SEENCleveland Clinic FoundationComment on above:Performed By: #### UAMIC #### [facility] [address] [address] [address] Rizwan Pepper PROTEINNegativeNormalNEGATIVE/ TRACEThe [facility] Comment on above:Performed By: #### UAMIC #### [facility] [address] [place] [address] Dr. Rizwan Schwabbilshaygen Qn (U)0.2 {Wil'U}/dLNormal0.2 - 1.0The [facility] SystemComment on above:Performed By: #### UAMIC #### [facility] [address] [place] [address] Dr. Rizwan Restrepo SEENNormalNONE SEENThe [facility] SystemComment on above: Performed By: #### UAMIC #### [facility] [address] [place] [address] Dr. Rizwan GramajoASTMANDIE SEENNormalNONE SEENCleveland Clinic FoundationComment on above:Performed By: #### UAMIC #### [facility] [address] [place] [address] Dr. Rizwan Medrano ACID SERUMon 96-70-0874Aidkw [Mass/Vol]5.5 mg/dLNormal 2.5-6.2The [facility] SystemComment on above:Performed By: #### RENAL, MG, URIC #### [facility] [address] [place] [address] Dr. Rizwan Springer T PROTEIN CREAT RATIOon 01-88-8214Dqwwbhn (U) [Mass/Vol] 17.5 mg/dLCritically high<=12.0The [facility] SystemComment on above:Performed By: #### RENAL, MG, URIC #### [facility] [address] [place] [address] Dr. Rizwan Hernandez PROT CREAT RAT0.23NormalThe [facility] SystemComment on above: Performed By: #### RENAL, MG, URIC #### [facility] [address] [place] [address] Dr. Rizwan Springer CREAT76.34 mg/pGHitmwr84.00-300.00The [facility] Comment on above:Performed By: #### RENAL, MG, URIC #### [facility] [address] [address] [address] Rizwan FernandoVITAMIN D 25 OHon 29-00-4271BGK D 25-OH41.1 ng/mLNMcKitrick HospitalComment on above:Performed By: #### RENAL, MG, URIC #### [facility] [address] [address] [address] Rizwan Peter D RANGESSEE BELOWAultman Orrville HospitalComment on above: Result Comment: <20 ng/mL Vit D deficient 20 - <30 ng/mL Vit D insufficient 30 - 100 ng/mL Vit D sufficient >100 ng/mL Potential ToxicityPerformed By: #### RENAL, MG, URIC #### [facility] [address] [address] [address] Rizwan FernandoA1C HEMOGLOBINon 90-57-5212OqT2d (Bld) [Mass fraction]5.8 %[facility] [employer] Other Glucose - FINGER STICKon 32-40-0995Pbnxmed [Mass/Vol] 182 mg/dLNortUpper Allegheny Health System Broadersheet Other HbA1c (Bld) [Mass fraction]on 89-65-6968T7W HEMOGLOBIN [facility] [employer] Other LOWER EXTREMITY JOINT SURVEYon 62-34-8375VHAND EXTREMITY JOINT SURVEYUnKettering Health – Soin Medical CenterDepartment of Taurixyct[address] [place] [id number] Patien t Name: ASHLEY OLSON : 1945Sex: FAge: Race: WhiteMRN: [id number]. Location: 84Patient Status: OVisit #: [id number] Date: 09/21/2016 9:05:00 AMCompleted Date: 09/21/2016 09:04 AMRequesting Provider: SULY SANTOS Attending Provider: SULY SANTOS Report Copy To: Signs & Symptoms: Z96.659 Presence of unspecified artificial knee joint C60Gkrnshm: AthenaComments: , , , Ordering Provider - SULY SANTOS MD , Rendering Provider - SULY SANTOS MD , Exam: LOWER EXTREMITY JOINT SURVEYAccession #: [id number] LOWER EXTREMITY JOINT SURVEY 09/21/2016 9:04 AM EDT SIGNS AND SYMPTOMS: Z96.659 Presence of unspecified artificial knee joint I10 TECHNOLOGIST COMMENTS: ortho follow up nicole knee pain, history of knee replacements 3 yrs ago and 2 yrs ago, QUESTION FOR THE RADIOLOGIST: , , ==== ====== , Ordering Provider - SULY SANTSO MD , Rendering Provider - SULY SANTOS [...] knees. Electronically signed by:Donald Karimi. Transcribed by: [email or web address], User Resident: Electronically Signed by: DONALD KARIMI @ 09/21/2016 11:55 [facility] HospitalComment on above:Order Comment: , , , Ordering Provider - SULY SANTOS MD , Rendering Provider - BIGG VALE , Vital Signs Date TimeVital SignValuePerforming TejpbuktvNixpinfg66-00-0498 16:57-0400Body .56 cmLex Martinez MD Work Phone: [phone])[address]09-24-2025 16:57-0400 Body mass index (BMI) [Ratio]37 kg/m2Lex Martinez MD Work Phone: [phone])[address]09-24-2025 16:57-0400 Body ckfjlzwuisf11.8 [degF]Lex Martinez MD Work Phone: [phone])24197 [address]09-24-2025 16:57-0400 Body bjrynu81.03 kgLex Martinez MD Work Phone: [phone] [place], [place] [address]309-24-2025 16:57-0400 Diastolic blood cuvwhnwh92 mm[Hg]Lex Martinez MD Work Phone: [phone] [address]09-24-2025 16:57-0400 Heart rate99 /minLex Martinez MD Work Phone: [phone])21997 [address]09-24-2025 16:57-0400 Respiratory rate18 /minLex Martinez MD Work Phone: [phone])52497 [address]09-24-2025 16:57-0400 SaO2% (BldA) [Mass fraction]96 %Lex Martinez MD Work Phone: 1(456)420-[address] [place], [place] [address]23609-24-2025 16:57-0400 Systolic blood slvivdub279 mm[Hg]Lex Martinez MD Work Phone: [phone])26397 [address]09-11-2025 14:10-0400 Body ykfylc257 Aris Wolf MD Work Phone: [place] Hello ChairFrgpsw30-22-2473 14:10-0400Body mass index (BMI) [Ratio]36.85 kg/r4Iubeuviet Wolf MD Work Phone: [facility]09-11-2025 14:10-0400Body docsbs11.35 kgDaniel Wolf MD Work Phone: [facility]09-09-2025 14:090400Body .56 cmLex Martinez MD Work Phone: [phone])[address]09-09-2025 14:09-0400 Body mass index (BMI) [Ratio]37.1 kg/m2Lex Martinez MD Work Phone: [phone])41597 [address]09-09-2025 14:09-0400 Body haonpndhxdi69.6 [degF]Lex Martinez MD Work Phone: [phone] [address]09-09-2025 14:09-0400 Body qhwyol36.2 kgLex Martinez MD Work Phone: [phone])47097 [address]09-09-2025 14:09-0400 Diastolic blood mm[Hg]Lex Martinez MD Work Phone: [phone])96997 [address]09-09-2025 14:09-0400 Heart pjcq651 /Joe Martinez MD Work Phone: [phone])50797 [address]09-09-2025 14:09-0400 Heart rate86 /Joe Martinez MD Work Phone: [phone])39697 [address]09-09-2025 14:09-0400 Respiratory rate18 /Joe Martinez MD Work Phone: [phone])17397 [address]09-09-2025 14:09-0400 SaO2% (BldA) [Mass fraction]95 %Lex Martinez MD Work Phone: [phone])81097 [address]09-09-2025 14:09-0400 Systolic blood uehtmvjq574 mm[Hg]Lex Martinez MD Work Phone: [phone])[address]08-19-2025 14:22-0400 Body esykpc824.7 cmSteven Rusher DPM Work Phone: [facility] HospitalAyfeuoxlyi54-90-7322 14:22-0400Body mass index (BMI) [Ratio]37.26 kg/m9Bsgcqn Rusher DPM Work Phone: [facility] HospitalBhqidhakqj14-04-5755 14:22-0400Body hniebx33.16 kgSteven Rusher DPM Work Phone: [phone] HospitalPhvjhbxijt25-62-1534 14:17-0400Body .56 cmLex Martinez MD Work Phone: [phone] [address]07-08-2025 14:17-0400 Body mass index (BMI) [Ratio]36.3 kg/m2Lex Martinez MD Work Phone: [phone])44[address]07-08-2025 14:17-0400 Body jepzge83 kgLex Martinez MD Work Phone: [phone] [address]07-08-2025 14:17-0400 Diastolic blood vhswpyhj42 mm[Hg]Lex Martinez MD Work Phone: [phone] [address]07-08-2025 14:17-0400 Heart rate83 /minLex Martinez MD Work Phone: 1(322)873-[address] [place], [place] 4523607-08-2025 14:17-0400 Respiratory rate18 /minLex Martinez MD Work Phone: [phone])654-[address] [place], [place] 4523607-08-2025 14:17-0400 SaO2% (BldA) [Mass fraction]100 %Lex Martinez MD Work Phone: [phone] [address]07-08-2025 14:17-0400 Systolic blood pvmnvsyi003 mm[Hg]Lex Martinez MD Work Phone: [phone] [address]06-25-2025 13:23-0400 Body mass index (BMI) [Ratio]37.26 kg/m2Dana Tapia [employer] Work Phone: [facility] HospitalButrujthht51-90-5117 13:23-0400Body temperature 97.81 [degF]Dana Tapia [employer] Work Phone: [facility] HospitalYqgixqzwnr23-38-0303 13:23-0400Body qcojcg18.16 kgDana Tapia [employer] Work Phone: [facility] HospitalUjaqaxqjtk50-61-7549 13:23-0400Diastolic blood vjodpnhx67 mm[Hg]Dana Tapia [employer] Work Phone: 1([phone] [place], [place] [address]Dvabzqkpyy37-95-3046 13:23-0400Heart rate90 /min Dana Tapia [employer] Work Phone: [facility] HospitalBlwaxfgnhe09-85-5029 13:23-0400Respiratory rate18 /minLisa Tapia [employer] Work Phone: 1(846)676-[address] [place], [place] [address]Tdzopinxdd30-23-7727 13:23-5694FjD6% (BldA) [Mass fraction]97 %Dana Tapia [employer] Work Phone: [facility] HospitalGaxajnmkrj92-36-1056 13:23-0400Systolic blood pwzepyoi275 mm[Hg]Dana Tapia [employer] Work Phone: [facility] HospitalWsrdggezmg95-83-7106 14:27-0400Body evfmzw688.7 cmSteven Rusher DPM Work Phone: [phone] [place], [place] [address]Dihstavkss52-14-3951 14:27-0400Body mass index (BMI) [Ratio]37.08 kg/v3Elevam Rusher DPM Work Phone: [phone] [place], [place] [address]Eyvgnvjgba47-12-6223 14:27-0400Body ogqvtp56.71 kgSteven Rusher DPM Work Phone: [phone] HospitalExznvsemyx71-42-4893 13:44-0400Body mass index (BMI) [Ratio]36.86 kg/m2Dana Garciaholz [employer] Work Phone: [phone])[address]05-15-2025 13:44-0400Body temperature 98.71 [degF]Dana Tapia [employer] Work Phone: [facility] HospitalFtvbbtxoby36-94-7356 13:44-0400Body .89 kgDana Tapia [employer] Work Phone: [facility] HospitalWfjdmcbcwl33-07-1324 13:44-0400Diastolic blood peedmaps28 mm[Hg]Dana Tapia [employer] Work Phone: [facility] HospitalYamyozcgcr97-70-9205 13:44-0400Heart rate91 /min Dana Tapia [employer] Work Phone: [phone] HospitalHaesxlnsmh84-60-6683 13:44-0400Respiratory rate18 /minDana Tapia [employer] Work Phone: [phone] HospitalScbqjqytng55-44-4869 13:44-4868EfT3% (BldA) [Mass fraction]93 %Dana Tapia [employer] Work Phone: [facility] HospitalIojfgfiksm68-61-7362 13:44-0400Systolic blood iupbtdla432 mm[Hg]Dana Tapia [employer] Work Phone: [facility] HospitalZcgdgxjzqe35-16-2431 10:12-0400Body vergme098 cm Daniel Wolf MD Work Phone: [facility]05-01-2025 10:12-0400Body mass index (BMI) [Ratio]36.85 kg/g5IazdmDaniel Wolf MD Work Phone: [facility]05-01-2025 10:12-0400Body .35 kgDaniel Wolf MD Work Phone: [facility]04-15-2025 13:57-0400Body .56 cmTr[facility]04-15-2025 13:57-0400Body mass index (BMI) [Ratio]36 kg/q7NlmveaksgTrinity Health System [facility]04-15-2025 13:57-0400Body kblpiicpckf47.5 [degF][facility]04-15-2025 13:57-0400Body acgxjj12.25 kgTrinity Health System [facility]04-15-2025 13:57-0400Diastolic blood mm[Hg][facility] 06-12-2024 13:57-0400Heart rate90 /[facility] 06-12-2024 13:57-0400Respiratory rate18 /[facility] 06-12-2024 13:57-7395BxS8% (BldA) [Mass fraction]97 %[facility]04-15-2025 13:57-0400Systolic blood cveqohsc371 mm[Hg][facility]04-10-2025 09:04-0400Body puebtk587 Aris Wolf MD Work Phone: [facility]04-10-2025 09:04-0400Body mass index (BMI) [Ratio]36.85 kg/q0Fangqviet Wolf MD Work Phone: [facility]04-10-2025 09:04-0400Body ehiqok73.35 kgDaniel Wolf MD Work Phone: [facility]04-02-2025 14:40-0400Body mass index (BMI) [Ratio]36.79 kg/m2Dana Tapia [employer] Work Phone: [facility] HospitalNpcyrouvqe20-31-4286 14:40-0400Body temperature 98.1 [degF]Dana Tapia [employer] Work Phone: [facility] HospitalIqkggtbfel11-27-5237 14:40-0400Body urylru66.71 kgDana Tapia [employer] Work Phone: [facility] HospitalTxhzymdlpk74-34-5474 14:40-0400Diastolic blood xiupcxwh46 mm[Hg]Dana Tapia [employer] Work Phone: [facility] HospitalLcsdlbngbi46-01-0569 14:40-0400Heart rate66 /min Dana Tapia [employer] Work Phone: [facility] HospitalMikzwjrkbi42-98-8497 14:40-0400Respiratory rate18 /minDana Garciapatricia [employer] Work Phone: [facility] HospitalYfgrllipxv86-28-9617 14:40-4832JpV3% (BldA) [Mass fraction]99 %Dana Garciapatricia [employer] Work Phone: [facility] HospitalXtkykacmok23-32-2844 14:40-0400Systolic blood mm[Hg]Dana Knoxvitaly [employer] Work Phone: [facility] HospitalStupnmvnhc32-24-2183 10:45-0400Body toljhj400 cm Daniel Wolf MD Work Phone: [facility]03-20-2025 10:45-0400Body mass index (BMI) [Ratio]36.85 kg/u6AinieDaniel Wolf MD Work Phone: [facility]03-20-2025 10:45-0400Body .35 kgDaniel Wolf MD Work Phone: [facility]03-10-2025 16:26-0400Body .3 Monique Willie [employer] Work Phone: [facility] HospitalNkbruzhavr01-67-8479 16:26-0400Body mass index (BMI) [Ratio]36.76 kg/m2Dana Willie [employer] Work Phone: [facility] HospitalGejufmyiju04-22-7706 16:26-0400Body temperature 97.81 [degF]Dana Willie [employer] Work Phone: [facility] HospitalTdxbbdhwbi84-02-6204 16:26-0400Body hlpedz82.62 kgDana Willie [employer] Work Phone: [facility] HospitalZnaqojhuba48-12-6727 16:26-0400Diastolic blood zxtolgdg06 mm[Hg]Dana Willie [employer] Work Phone: [facility] HospitalPaxnygqxun46-00-2407 16:26-0400Heart rate85 /min Dana Tapia [employer] Work Phone: [facility] HospitalMvnfnckojd78-91-6880 16:26-0400Respiratory rate18 /minDana Tapia [employer] Work Phone: [facility] HospitalZwxkxzkndg92-19-4736 16:26-8477QdB8% (BldA) [Mass fraction]98 %Dana Tapia [employer] Work Phone: [facility] HospitalGypiwvmvma97-93-6533 16:26-0400Systolic blood uurkuhwo460 mm[Hg]Dana Tapia [employer] Work Phone: [facility] HospitalBleneoozqk51-05-5768 09:22-0500Body cm Daniel Wolf MD Work Phone: [facility]02-20-2025 09:22-0500Body mass index (BMI) [Ratio]36.85 kg/p9CqisjDaniel Wolf MD Work Phone: [facility]02-20-2025 09:22-0500Body amowde05.35 kgDaniel Wolf MD Work Phone: [facility]02-18-2025 14:03-0500Body dcugck581.3 cmSteven Rusher DPM Work Phone: [phone] HospitalOflsgrbwkx42-29-7422 14:03-0500Body mass index (BMI) [Ratio]36.27 kg/m7Moglep Rusher DPM Work Phone: [phone]77[facility] HospitalBvgkpiupgt15-36-0065 14:03-0500Body egycie81.35 kgSteven Rusher DPM Work Phone: [phone])[address]01-22-2025 13:45-0500Body kjyqxh194 cm [address]01-22-2025 13:45-0500Body mass index (BMI) [Ratio] 36.46 kg/m2Bph [address] [place], [place] 7839301-22-2025 13:45-0500Body tdhqybacsjw01.9 [degF]Bph [address] [place], [place] 7839301-22-2025 13:45-0500Body oafblf49.5 kgBph 1 [facility]01-22-2025 13:45-0500Diastolic blood vvohgbzp87 mm[Hg]Bph [address] [place], [place] 7839301-22-2025 13:45-0500Heart zlhq012 /minBph [address] [place], [place] 7839301-22-2025 13:45-0500Respiratory rate20 /minBph [address] [place], [place] 7839301-22-2025 13:45-2378QqO2% (BldA) [Mass fraction]98 %Bph [address] [place], [place] 7839301-22-2025 13:45-0500Systolic blood cosgxiwp965 mm[Hg]Bph [address] [place], [place] 7839301-20-2025 14:38-0500Body mass index (BMI) [Ratio]36.34 kg/m2Dana Tapia [employer] Work Phone: [facility] HospitalFfmsjnyxdd67-97-4001 14:38-0500Body temperature 98.49 [degF]Dana Tapia [employer] Work Phone: [facility] HospitalTrjnfjuqfo12-05-0052 14:38-0500Body ysuxuv04.53 kgSalena Willie [employer] Work Phone: [facility] HospitalVmxpmqlzeb64-83-3080 14:38-0500Diastolic blood bgowccsa79 mm[Hg]Dana Tapia [employer] Work Phone: [facility] HospitalKjzzclqskg40-35-4965 14:38-0500Heart rate90 /min Dana Tapia [employer] Work Phone: [facility] HospitalAjcuwlmtzg18-16-0116 14:38-0500Respiratory rate18 /minSalena Willie [employer] Work Phone: [facility] HospitalQjbhyqqavc64-40-0321 14:38-0613XwX7% (BldA) [Mass fraction]99 %Dana Tapia [employer] Work Phone: [facility] HospitalGbowyzxwun45-07-7649 14:38-0500Systolic blood xoivbolz274 mm[Hg]Dana Tapia [employer] Work Phone: [facility] HospitalRdazlazmda93-28-8506 14:43-0500Diastolic blood luvcrjth22 mm[Hg]Lex Martinez MD Work Phone: [phone])[address]01-07-2025 14:43-0500 Systolic blood upbnbtxp902 mm[Hg]Lex Martinez MD Work Phone: [phone])[address]01-07-2025 14:22-0500 Body .56 cmLex Martinez MD Work Phone: [phone])[address]01-07-2025 14:22-0500 Body mass index (BMI) [Ratio]35.2 kg/m2Lex Martinez MD Work Phone: [phone]01-07-2025 14:22-0500 Body .04 kgLex Martinez MD Work Phone: [phone])[address]01-07-2025 14:22-0500 Heart rate86 /minLex Martinez MD Work Phone: [phone])[address]01-07-2025 14:22-0500 Respiratory rate16 /minLex Martinez MD Work Phone: [phone])[address]01-07-2025 14:22-0500 SaO2% (BldA) [Mass fraction]93 %Lex Martinez MD Work Phone: 1(470)[address]01-06-2025 14:02-0500 Body xpxniw320.3 cmLisa Willie [employer] Work Phone: [facility] HospitalXhyituedkg63-45-7550 14:02-0500Body mass index (BMI) [Ratio]35.71 kg/m2Lisa Willie [employer] Work Phone: [facility] HospitalIbjvqcfqxq29-52-1366 14:02-0500Body temperature 98.49 [degF]Dana Tapia [employer] Work Phone: 1(419)547-[address] [place], [place] [address]Vtfopgjpio75-67-8391 14:02-0500Body .9 kg Dana Donz [employer] Work Phone: [facility] HospitalHwnehexpsy31-99-1586 14:02-0500Diastolic blood ostummmx01 mm[Hg]Dana Joseholz [employer] Work Phone: [facility] HospitalPaumyqqzki65-88-3375 14:02-0500Heart rate91 /min Dana Arianz [employer] Work Phone: [facility] HospitalBrojhjgjim92-48-5353 14:02-0500Respiratory rate18 /minLisa Garciaholz [employer] Work Phone: [facility] HospitalTwsfzanonm09-33-7593 14:02-2957XnB3% (BldA) [Mass fraction]94 %Dana Donz [employer] Work Phone: [facility] HospitalQpdlwnvpvh32-66-8130 14:02-0500Systolic blood ainhditf629 mm[Hg]Dana Donz [employer] Work Phone: 1(060)106-[address] [place], [place] [address]Ytqzqaqmoc18-94-7993 18:42-0500Body ymbhaf032.3 Monique Garciaholz [employer] Work Phone: [facility] HospitalIvxdnguuvj09-02-0149 18:42-0500Body mass index (BMI) [Ratio]35.22 kg/m2Dana Garciaholz [employer] Work Phone: [facility] HospitalEkuiaykfad40-91-3105 18:42-0500Body temperature 97.81 [degF]Dana Donz [employer] Work Phone: [facility] HospitalPdylcxvseg95-97-0319 18:42-0500Body maislr05.63 kgLisa Garciaholz [employer] Work Phone: [facility] HospitalEcgksdxytx00-34-4076 18:42-0500Diastolic blood qxqukkdd51 mm[Hg]Dana Joseholz [employer] Work Phone: [facility] HospitalAbkpuvbtbw93-11-1741 18:42-0500Heart rate69 /min Dana Garciaholz [employer] Work Phone: [facility] HospitalBfueuoyqug00-40-1521 18:42-0500Respiratory rate18 /minLisa Joseholz [employer] Work Phone: [facility] HospitalXpwpoaogpv97-12-2036 18:42-3640ZrS0% (BldA) [Mass fraction]93 %Danajian Garciaholz [employer] Work Phone: [facility] HospitalRmmscnunhc67-62-2427 18:42-0500Systolic blood babkfnhe761 mm[Hg]Dana Lisettehholz [employer] Work Phone: [facility] HospitalPehuykdvap21-94-8640 16:02-0500Body mass index (BMI) [Ratio]35.36 kg/m2Lisa Lisettehholz [employer] Work Phone: 1(878)[facility]-1715[facility] HospitalXlkbfuofxt30-84-2176 16:02-0500Body temperature 98.8 [degF]Dana Lisettetrinityholz [employer] Work Phone: [phone] [place], [place] [address]Zrylitwumz38-17-4117 16:02-0500Body ninrxz47.99 kgLisa Joseholz [employer] Work Phone: [facility] HospitalMiruljogst00-41-0983 16:02-0500Diastolic blood ewzbrwgk24 mm[Hg]Dana Joseholz [employer] Work Phone: [facility] HospitalFgxtjkcjfy07-58-9401 16:02-0500Heart rate85 /min Dana Lisettetrinityholz [employer]PER Work Phone: [facility] HospitalGupxrnpliw76-09-5050 16:02-0500Respiratory rate19 /minLisa Lisettehholz [employer] Work Phone: [facility] HospitalOhhkfexifd80-70-6764 16:02-4355MwR9% (BldA) [Mass fraction]98 %Dana Lisettehholz [employer] Work Phone: [facility] HospitalDtynczixgh88-25-3545 16:02-0500Systolic blood ulfpthyd148 mm[Hg]Dana Lisettehholz [employer] Work Phone: 1([phone] [place], [place] [address]Xzdvsyobrt38-72-5256 14:14-0500Body .3 cmSteven Rusher DPM Work Phone: [facility] HospitalKosqdgjrdx05-60-1396 14:14-0500Body mass index (BMI) [Ratio]35.22 kg/m1Yqcxok Rusher DPM Work Phone: [facility] HospitalTofgrbuvjk53-17-1336 14:14-0500Body beuvoo24.63 kgSteven Rusher DPM Work Phone: [place] [address]Kmjwseymhc22-63-1500 14:20-0500Body mjsuqw256.3 cmLisa Josepatricia [employer] Work Phone: [place] [address]Llfcfqfujp31-31-1459 14:20-0500Body mass index (BMI) [Ratio]35.33 kg/m2Salenasa Josepatricia [employer] Work Phone: [place] [address]Dpndegdlgf23-26-1354 14:20-0500Body temperature 98.49 [degF]Dana Willie [employer] Work Phone: [place] [address]Wwsglkxdpg75-47-6907 14:20-0500Body syfkjk10.9 kg Dana Knoxvitaly [employer] Work Phone: [place] [address]Fkhoshdiqf62-69-5886 14:20-0500Diastolic blood mm[Hg]Dana Knoxvitaly [employer] Work Phone: [place] [address]Oyevdyidro60-47-1566 14:20-0500Heart rate72 /min Dana Willie [employer] Work Phone: [place] [address]Nxykhratwe08-14-8124 14:20-0500Respiratory rate18 /minLi Willie [employer] Work Phone: [place] [address]Avwuhliceq90-92-8189 14:20-9149AhU6% (BldA) [Mass fraction]99 %Dana Willie [employer] Work Phone: [place] [address]Pitlyvcsoo20-54-8759 14:20-0500Systolic blood npjvauls623 mm[Hg]Dana Willie [employer] Work Phone: 1(237)264-[address] [place], [place] [address]Kwyqqtznuj28-70-5284 09:47-0400Body .56 [facility] 09:47-0400Body mass index (BMI) [Ratio]34.7 kg/m4GobxomvlhTr[facility]10-14-2024 09:47-0400Body fopwmmpvxpj24.7 [degF][facility]10-14-2024 09:47-0400Body ovtzvn82.85 kgTr[facility]10-14-2024 09:47-0400Diastolic blood nyfkwpbw12 mm[Hg][facility]10-14-2024 09:47-0400 Heart rate76 /[facility]10-14-2024 09:47-0400 Respiratory rate16 /[facility]10-14-2024 09:47-0400 SaO2% (BldA) [Mass fraction]97 %[facility]10-14-2024 09:47-0400Systolic blood cexqpppe787 mm[Hg][facility] 11-28-2023 13:50-0400Body ahoceo767.3 Monique Willie [employer] Work Phone: [facility] HospitalSurvbkdxyq07-44-4802 13:50-0400Body mass index (BMI) [Ratio]35.4 kg/m2Dana Willie [employer] Work Phone: [facility] HospitalRjczvteuxu01-68-5422 13:50-0400Body temperature 98.49 [degF]Dana Willie [employer] Work Phone: [facility] HospitalPvbfrijarz60-54-5071 13:50-0400Body .08 kgDana Willie [employer] Work Phone: [facility] HospitalXqsevfpsrl18-67-2001 13:50-0400Diastolic blood faovmylt75 mm[Hg]Dana Willie [employer] Work Phone: [facility] HospitalGvavfoefkn77-20-1572 13:50-0400Heart rate63 /min Dana Willie [employer] Work Phone: [facility] HospitalXakjwjuxnk58-30-7312 13:50-0400Respiratory rate19 /Dayanara Tapia [employer] Work Phone: [facility] HospitalAcqflhtjux56-45-7433 13:50-0629LxR9% (BldA) [Mass fraction]96 %Dana Tapia [employer] Work Phone: [facility] HospitalQazvgrsmur38-03-6620 13:50-0400Systolic blood eockgynx020 mm[Hg]Dana Tapia [employer] Work Phone: [facility] HospitalExboihvvol76-84-7497 13:52-0400Body vjazpl110.56 cmTr[facility]08-06-2024 13:52-0400Body mass index (BMI) [Ratio]34.5 kg/b4ZxtozufclTrinity Health [facility]08-06-2024 13:52-0400Body xivese19.31 kgTr[facility]08-06-2024 13:52-0400Diastolic blood penuadeo14 mm[Hg][facility]08-06-2024 13:52-0400 Heart rate72 /[facility]08-06-2024 13:52-0400 Respiratory rate18 /[facility]08-06-2024 13:52-0400 SaO2% (BldA) [Mass fraction]95 %[facility]08-06-2024 13:52-0400Systolic blood baiedctg455 mm[Hg][facility] 06-13-2023 14:04-0400Body ddoebu072.56 cmPHYSICIAN [facility]04-15-2024 14:04-0400Body mass index (BMI) [Ratio]34.9 kg/m2 PHYSICIAN [facility]04-15-2024 14:04-0400Body llixaynnfqe64.2 [degF]PHYSICIAN [facility] 06-13-2023 14:04-0400Body hcmops97.16 kgPHYSICIAN [facility]04-15-2024 14:04-0400Diastolic blood yvxutuqp23 mm[Hg]PHYSICIAN [facility]04-15-2024 14:04-0400Heart rate89 /min PHYSICIAN [facility]04-15-2024 14:04-0400 Respiratory rate16 /minPHYSICIAN NO [facility] 06-13-2023 14:04-1284DgE1% (BldA) [Mass fraction]99 %PHYSICIAN NO [facility]04-15-2024 14:04-0400Systolic blood mbauxoef936 mm[Hg]PHYSICIAN [facility]02-14-2024 14:11-0500 Body sjfazw675.3 cmSteven Rusher DPM Work Phone: [facility] HospitalFnmoqvnxlq50-63-0334 14:11-0500Body mass index (BMI) [Ratio]35.57 kg/f7Rcdjbv Rusher DPM Work Phone: [facility] HospitalJvfplovfxl38-17-4630 14:11-0500Body emuenp57.53 kgSteven Rusher DPM Work Phone: [phone] HospitalEdmgwmhewb07-47-4181 14:15-0500Body gyonmo246.56 cmPHYSICIAN [facility]02-01-2024 14:15-0500Body kgkkcy32.53 kgPHYSICIAN [facility]02-01-2024 14:15-0500Diastolic blood okwlauwk09 mm[Hg]PHYSICIAN [facility]02-01-2024 14:15-0500Systolic blood yyyoouyc142 mm[Hg][facility]IAN [facility]10-17-2023 14:40-0400Body .56 cmAbdul Buck Other [employer] Other 10-17-2023 14:40-0400Body mass index (BMI) [Ratio] 37.62 kg/c7Bpxfk Buck Other [employer] Other 10-17-2023 14:40-0400Body nthpcnhgifo75.3 [degF]Eboni Buck Other [employer] Other 10-17-2023 14:40-0400Body aiefmh13.43 kgAbdul Buck Other [employer] Other 10-17-2023 14:40-0400Diastolic blood mm[Hg] Eboni Buck Other [employer] Other 10-17-2023 14:40-0400Respiratory rate18 /minAbdul Buck Other [employer] Other 10-17-2023 14:40-7565VpX4% (BldA) [Mass fraction]98 % Eboni Buck Other [employer] Other 10-17-2023 14:40-0400Systolic blood mm[Hg] Eboni Buck Other [employer] Other 08-02-2023 14:45-0400Body ulqske654.56 cmTondra Mapus Other [employer] Other 08-02-2023 14:45-0400Body mass index (BMI) [Ratio] 37.38 kg/v1Ssqcvw Mapus Other [employer] Other 08-02-2023 14:45-0400Body .79 kgTondra Mapus Other [employer] Other 08-02-2023 14:45-0400Diastolic blood hminpaob57 mm[Hg] Tondra Mapus Other [employer] Other 08-02-2023 14:45-0400Respiratory rate18 /minTondra Mapus Other [employer] Other 08-02-2023 14:45-3317FaW9% (BldA) [Mass fraction]99 % Tondra Mapus Other [employer] Other 08-02-2023 14:45-0400Systolic blood eweusevb721 mm[Hg] Tondra Mapus Other [employer] Other 04-11-2023 15:00-0400Body tlwlno379.56 cmAbdul Buck Other [employer] Other 04-11-2023 15:00-0400Body mass index (BMI) [Ratio] 37.83 kg/n1Lpjrg Buck Other [employer] Other 04-11-2023 15:00-0400Body hsxyjr72.97 kgAbdul Buck Other [employer] Other 04-11-2023 15:00-0400Diastolic blood axedqndp09 mm[Hg] Eboni Buck Other [employer] Other 04-11-2023 15:00-0400Respiratory rate18 /minAbdul Buck Other [employer] Other 04-11-2023 15:00-4325GqA1% (BldA) [Mass fraction]97 % Eboni Buck Other [employer] Other 04-11-2023 15:00-0400Systolic blood tleumupa555 mm[Hg] Eboni Buck Other [employer] Other 02-01-2023 16:45-0500Body xjozeq278.56 cmTondra Mapus Other [employer] Other 02-01-2023 16:45-0500Body mass index (BMI) [Ratio] 37.96 kg/a6Xjcqlg [employer] Other [employer] Other 02-01-2023 16:45-0500Body xtufrw652.34 kgTondra Mapus Other [employer] Other 02-01-2023 16:45-0500Diastolic blood holtrxmg58 mm[Hg] Tondra Mapus Other [employer] Other 02-01-2023 16:45-0500Respiratory rate18 /minTondra Mapus Other [employer] Other 02-01-2023 16:45-0624GrY7% (BldA) [Mass fraction]97 % Tondra Mapus Other [employer] Other 02-01-2023 16:45-0500Systolic blood disjeyqe742 mm[Hg] Tondra Mapus Other [employer] Other 10-24-2022 15:00-0400Body .56 cmTondra Mapus Other [employer] Other 10-24-2022 15:00-0400Body mass index (BMI) [Ratio] 37.76 kg/o1Gqqtan Mapus Other [employer] Other 10-24-2022 15:00-0400Body wpvfko49.79 kgTondra Mapus Other [employer] Other 10-24-2022 15:00-0400Diastolic blood thsgdiup16 mm[Hg] Tondra Mapus Other [employer] Other 10-24-2022 15:00-0400Respiratory rate20 /minTondra Mapus Other [employer] Other 10-24-2022 15:00-1604FtF9% (BldA) [Mass fraction]99 % Tondra Mapus Other [employer] Other 10-24-2022 15:00-0400Systolic blood hobvgrmb721 mm[Hg] Tondra Mapus Other [employer] Other 10-17-2022 15:20-0400Body ezgycw898.56 cmAbdul Buck Other [employer] Other 10-17-2022 15:20-0400Body mass index (BMI) [Ratio] 37.66 kg/f1Qpiwp Buck Other [employer] Other 10-17-2022 15:20-0400Body wluipoyovko18.7 [degF]Eboni Buck Other [employer] Other 10-17-2022 15:20-0400Body jtdipr36.52 kgAbdul Buck Other [employer] Other 10-17-2022 15:20-0400Diastolic blood gnxafyni89 mm[Hg] Eboni Buck Other [employer] Other 10-17-2022 15:20-0400Respiratory rate18 /minAbdul Buck Other [employer] Other 10-17-2022 15:20-9232DnW5% (BldA) [Mass fraction]96 % Eboni Buck Other [employer] Other 10-17-2022 15:20-0400Systolic blood hjnvjyvi917 mm[Hg] Eboni Buck Other [employer] Other 07-27-2022 10:55-0400Body wewxfo186.56 cmPamela Janae Other [employer] Other 07-27-2022 10:55-0400Body mass index (BMI) [Ratio] 37.24 kg/a5Whumxrbrynn Cardoso Other [employer] Other 07-27-2022 10:55-0400Body wxxmozbuzda99.2 [degF]Kristin Janae Other [employer] Other 07-27-2022 10:55-0400Body oqzcgc61.43 kgPameetjian Janae Other [employer] Other 07-27-2022 10:55-0400Diastolic blood mzivqmsj64 mm[Hg] Kristin Cardoso Other [employer] Other 07-27-2022 10:55-0400Respiratory rate18 /minKristin Cardoso Other [employer] Other 07-27-2022 10:55-0165PaX4% (BldA) [Mass fraction]98 % Kristin Cardoso Other [employer] Other 07-27-2022 10:55-0400Systolic blood zlkcoett042 mm[Hg] Kristin Cardoso Other [employer] Other 04-26-2022 15:30-0400Body ulpzlp090.56 cmTondra Mapus Other [employer] Other 04-26-2022 15:30-0400Body mass index (BMI) [Ratio] 37.59 kg/r3Rreznm Mapus Other [employer] Other 04-26-2022 15:30-0400Body .34 kgTondra Mapus Other [employer] Other 04-26-2022 15:30-0400Diastolic blood mfktfbaz52 mm[Hg] Tondra Mapus Other [employer] Other 04-26-2022 15:30-0400Respiratory rate16 /minTondra Mapus Other [employer] Other 04-26-2022 15:30-0458EmS7% (BldA) [Mass fraction]99 % Tondra Mapus Other [employer] Other 04-26-2022 15:30-0400Systolic blood azcvippu648 mm[Hg] Tondra Mapus Other [employer] Other 04-20-2022 15:00-0400Body .56 cmAbdul Buck Other [employer] Other 04-20-2022 15:00-0400Body mass index (BMI) [Ratio] 37.59 kg/p8Mtene Buck Other [employer] Other 04-20-2022 15:00-0400Body bpubnhfyert80.2 [degF]Eboni Buck Other [employer] Other 04-20-2022 15:00-0400Body fyfjrn27.34 kgAbdul Buck Other [employer] Other 04-20-2022 15:00-0400Diastolic blood dyugzfor46 mm[Hg] Eboni Buck Other [employer] Other 04-20-2022 15:00-0400Respiratory rate18 /minAbdul Buck Other [employer] Other 04-20-2022 15:00-4685QqC7% (BldA) [Mass fraction]95 % Eobni Buck Other [employer] Other 04-20-2022 15:00-0400Systolic blood xrdyewwz701 mm[Hg] Eboni Buck Other [employer] Other 10-26-2021 14:40-0400Body adflvp890.56 cmAbdul Buck Other [employer] Other 10-26-2021 14:40-0400Body mass index (BMI) [Ratio] 38.21 kg/l7Zlakb Buck Other [employer] Other 10-26-2021 14:40-0400Body abllpcdzigg70.3 [degF]Eboni Buck Other [employer] Other 10-26-2021 14:40-0400Body sqihzw108.97 kgAbdul Buck Other [employer] Other 10-26-2021 14:40-0400Diastolic blood tqxnyfhq90 mm[Hg] Eboni Buck Other [employer] Other 10-26-2021 14:40-0400Respiratory rate18 /minAbdul Buck Other [employer] Other 10-26-2021 14:40-0829BrG9% (BldA) [Mass fraction]93 % Eboni Buck Other [employer] Other 10-26-2021 14:40-0400Systolic blood myjsgpff790 mm[Hg] Eboni Buck Other [employer] Other 10-20-2021 15:15-0400Body cgpmgy705.56 cmTondra Mapus Other [employer] Other 10-20-2021 15:15-0400Body mass index (BMI) [Ratio] 37.76 kg/i5Etnclh Mapus Other [employer] Other 10-20-2021 15:15-0400Body thxybb78.79 kgTondra Pravinus Other [employer] Other 10-20-2021 15:15-0400Diastolic blood eijgrfoj02 mm[Hg] Tondra Mapus Other [employer] Other 10-20-2021 15:15-0400Respiratory rate20 /minTondra Mapus Other [employer] Other 10-20-2021 15:15-5053VpA5% (BldA) [Mass fraction]97 % Tondra Mapus Other [employer] Other 10-20-2021 15:15-0400Systolic blood vpqhehdf771 mm[Hg] Tondra Mapus Other [employer] Other Encounters Encounter DateEncounter TypeCare ProviderFacilityStart: 12-11-2024 End: 03-31-5072xqvmloljbnHqkw J AichholzFacility:[facility]art: 12-11-2024 End: 12-18-9156Lsdidia encounter procedureDana Tapia NP-C-[facility] [place] Work Phone: Start: 11-21-2024 End: 96-18-5405vmovunccpbKwjs Naderer MD Work Phone: [facility] Work Phone: Start: 11-21-2024 End: 37-61-7361Jazyxva encounter procedureDana Tapia NP-C-[facility] [place] Work Phone: Start: 11-08-2024 End: 26-59-2660Odbdok outpatient visit 15 minutesCrviet Wolf MD Work Phone: [facility] OrthopaedicsComment on above:S/P reverse total shoulder arthroplasty, right (Primary Dx)Start: 11-08-2024 End: 05-92-7866Nwwyfs Guanakito [facility] OrthopaedicsComment on above:S/P reverse total shoulder arthroplasty, right (Primary Dx)Start: 11-07-2024 End: 72-42-2200Qaijrizeu encounterJekhalif DuboseProMedirashel [facility]icians [facility] OrthopaedicsStart: 11-06-2024 End: 53-41-3041xjhpvbaywkEagj Naderer MD Work Phone: [facility] Work Phone: Start: 11-06-2024 End: 14-45-5717Vhmfpoq encounter procedureDana Tapia CORN POPPER-C-[facility] [place] Work Phone: Start: 64-71-1956Gfzcman encounter procedureLex Martinez MD Work Phone: [facility] 10-16-2024 End: 97-72-0872Xoquzlg encounter procedureSteven A Rusher DPM Work Phone: NOFill[facility] Hospital PodiatryComment on above:Dermatophytosis of nail (Primary Dx); Dystrophic nail; Pain around toenail, right foot; Pain around toenail, left footStart: 10-16-2024 End: 11-40-5158hjhlasqkbbNEJBCL A RUSHERNot AvailableStart: 10-16-2024 End: 60-90-7358Wexddt flowsheetSteven A Rusher DPM Work Phone: noMS [place] [facility]iatryStart: 10-16-2024 End: 01-96-9879Qzgpmh flowsheetSteven A Rusher DPM Work Phone: noFill[facility] Hospital PodiatryStart: 09-04-2024 End: 05-01-7001ibfjlogyrlPfln Jimbo VALE Work Phone: [facility] Work Phone: Start: 09-04-2024 End: 45-79-0533Myuffhr encounter procedureBernardino Talavera ORDNANCE HANDLER-C-[facility] Work Phone: Start: 08-22-2024 End: 43-31-8234Xthlym flowsheetLisa Aichholz CORN POPPER Work Phone: [facility] FMStart: 08-22-2024 End: 30-20-7472Dbxxan flowsheetLisa Aichholz CORN POPPER Work Phone: [facility] FMStart: 08-22-2024 End: 81-56-3016Zrhrhs outpatient visit 15 minutesLisa Willie CORN POPPER Work Phone: noms CWM FMComment on above:ODALYS (generalized anxiety disorder) (Primary Dx); Class 2 severe obesity due to excess calories with serious comorbidity and body mass index (BMI) of36.0 to 36.9 in adult ([facility]); Fibromyalgia; Polyneuropathy in diseases classified elsewhere ([facility])Start: 08-22-2024 End: 27-33-2527mwtpnchbxsJFBI AICHHOLZNot AvailableStart: 07-16-2024 End: 57-50-7757Vprtbgb encounter procedureSteven A Rusher DPM Work Phone: noms PODIATRYComment on above:Dermatophytosis of nail (Primary Dx); Dystrophic nail; Pain around toenail, right foot; Pain around toenail, left footStart: 07-16-2024 End: 13-95-5345sfmvmnxnhuJQBCFG A RUSHERNot AvailableStart: 07-16-2024 End: 88-79-1886Xergnk flowsheetSteven A Rusher DPM Work Phone: noms PODIATRYStart: 07-16-2024 End: 41-43-4881Eulbxr flowsheetSteven A Rusher DPM Work Phone: noms FH PODIATRYStart: 07-12-2024 End: 09-37-4150Uzfovq flowsgladysSalenasa Garciapatricia CORN POPPER Work Phone: noms CWM FMStart: 07-12-2024 End: 79-23-4866Yfagdv flavioSalenasa Garciapatricia CORN POPPER Work Phone: noms CWM FMStart: 07-12-2024 End: 41-91-8249Utpvrp outpatient visit 25 minutesLisa Garciapatricia CORN POPPER Work Phone: noms CWM FMComment on above:ODALYS (generalized anxiety disorder) (CMS/HCC) (Primary Dx); Class 2 severe obesity due to excess calories with serious comorbidity and body mass index (BMI) of36.0 to 36.9 in adult (CMS/HCC); Back pain of lumbar region with sciatica; Age-related osteoporosis without current pathological fracture (CMS/HCC); Mixed hyperlipidemia (CMS/HCC); Fibromyalgia; Polyneuropathy in diseases classified elsewhere (CMS/HCC)Start: 07-12-2024 End: 06-66-2344ovwbulddbhFOOU AICHHOLZNot AvailableStart: 07-11-2024 End: 34-61-2046Aioztgjqh encounterChristine [facility] OrthopaedicsStart: 06-28-2024 End: 76-31-8537Semlov follow up visit related to original Kendra Wolf MD Work Phone: [facility] Ass[facility]mac OrthopaedicsComment on above:S/P reverse total shoulder arthroplasty, right (Primary Dx)Start: 06-28-2024 End: 43-91-4524tcjliylffkLLJZOTiago WOLFProMedica New Lincoln Hospitaltart: 06-12-2024 End: 99-52-0687wqltlmkamuHblozwnnqBarney [facility]'s [facility] Work Phone: Start: 06-12-2024 End: 14-90-2570Pcjzqhk encounter procedureNovant Health [facility] Physician GroupLarue [facility]. [facility] Work Phone: Start: 06-07-2024 End: 37-20-4197Bwsttf follow up visit related to original Kendra Wolf MD Work Phone: [facility]ibal OrthopaedicsComment on above:S/P reverse total shoulder arthroplasty, right (Primary Dx)Start: 06-07-2024 End: 83-50-3147gqnbodthgfCHDQDLaxmi WOLFProMedica [facility] HospitalStart: 06-06-2024 End: 51-29-3145ZmuoszUggt Aichholz CORN POPPER Work Phone: noms CWM FMComment on above:Arthropathy, unspecified; Unspecified osteoarthritis, unspecified siteStart: 06-05-2024 End: 66-51-9261Wwqlhzvmb Result EncounterGeneric External Data ProviderNOMS External Department UnsolicitedStart: 06-05-2024 End: 39-60-6609Hlohmvuon Result EncounterGeneric External Data ProviderNOMS External Department UnsolicitedStart: 06-05-2024 End: 93-22-9049iwjvgbmpmuPxpikd [place] PTANOMS FB PTComment on above:Acute pain of right shoulder (Primary Dx); Status post reverse total arthroplasty of right shoulder; Shoulder stiffness, rightStart: 05-58-0039Wab-patient / Non-visitNovant Health Charlotte [facility] Physician GroupHarborview [facility] Professional [facility] Work Phone: Start: 05-31-2024 End: 07-55-2605dvhawevwgbNbfficit Wright STATION MECHANIC APPRENTICE Work Phone: noms FB PTComment on above:Acute pain of right shoulder (Primary Dx); Status post reverse total arthroplasty of right shoulder; Shoulder stiffness, rightStart: 05-30-2024 End: 98-82-4728Czxttm outpatient visit 15 Alanis Tapia CORN POPPER Work Phone: noms CWM FMComment on above:Back pain of lumbar region with sciatica (Primary Dx); Class 2 severe obesity due to excess calories with serious comorbidity and body mass index (BMI) of36.0 to 36.9 in adult (CMS/[facility]); Essential (primary) hypertension ([facility]); Gastro-esophageal reflux disease without esophagitis; Esophageal refluxStart: 05-30-2024 End: 53-28-6606ajvljvfdgkWEUW AICHHOLZNot AvailableStart: 05-30-2024 End: 66-93-3741Yvvcmb flowsheetLisa Aichholz CORN POPPER Work Phone: NOMS CWM FMStart: 05-30-2024 End: 01-12-0378Omkhkf flowsheetLisa Aichholz CORN POPPER Work Phone: NOMS CWM FMStart: 05-29-2024 End: 56-82-3177Dgwlvg [employer] Jorge STATION MECHANIC APPRENTICE Work Phone: NOMS FB PTStart: 05-29-2024 End: 22-07-6111Djaova Nanostim STATION MECHANIC APPRENTICE Work Phone: NOMS FB PTStart: 05-29-2024 End: 50-33-4163wziltnjzekNiyixldm Wright STATION MECHANIC APPRENTICE Work Phone: NOMS FB PTComment on above:Acute pain of right shoulder (Primary Dx); Status post reverse total arthroplasty of right shoulder; Shoulder stiffness, rightStart: 05-27-2024 End: 51-23-0478FguqlfPreh Aichporshaadalberto CORN POPPER Work Phone: NOJY CWM FMComment on above:Type 2 diabetes mellitus with diabetic neuropathy, unspecified ([facility])Start: 05-24-2024 End: 10-76-8686Ucscwp flowsheetMariah Tattersall PTANOMS FB PTStart: 05-24-2024 End: 50-39-8808Kaucmj flowsheetMariah [place]tersall PTANOMS FB PTStart: 05-24-2024 End: 24-48-5434oalnugebilBgiypd [place] PTANOMS FB PTComment on above:Acute pain of right shoulder (Primary Dx); Status post reverse total arthroplasty of right shoulderStart: 05-22-2024 End: 21-80-6769esatkqgrypHLRVXLFY WRIGHTNot AvailableStart: 05-17-2024 End: 26-75-7560frhyjemfhvNzfsaw [place]all PTANOMS FB PTComment on above:Acute pain of right shoulder (Primary Dx); Status post reverse total arthroplasty of right shoulder; Shoulder stiffness, rightStart: 05-17-2024 End: 85-51-3554smtdhwseyeWMMEV P [facility]GOProMedica [facility] HospitalStart: 05-17-2024 End: 14-33-6069Vztimb follow up visit related to original pxDaniel Wolf MD Work Phone: [facility] OrthopaedicsComment on above:S/P reverse total shoulder arthroplasty, right (Primary Dx)Start: 05-10-2024 End: 21-23-5568Qpbqoq [employer] Jorge STATION MECHANIC APPRENTICE Work Phone: NOUA FB PTStart: 05-10-2024 End: 00-06-4766Ijploz [employer] Jorge STATION MECHANIC APPRENTICE Work Phone: NOMS FB PTStart: 05-10-2024 End: 05-38-8610dtrrvmgaazVhqvcupf Wright STATION MECHANIC APPRENTICE Work Phone: NOMW FB PTComment on above:Acute pain of right shoulder (Primary Dx); Status post reverse total arthroplasty of right shoulder; Shoulder stiffness, rightStart: 05-08-2024 End: 06-98-1340avlthkevseNjaf J Spriggs PT Work Phone: NOMS FB PTComment on above:Acute pain of right shoulder (Primary Dx); Status post reverse total arthroplasty of right shoulder; Shoulder stiffness, rightStart: 05-07-2024 End: 34-40-5330Lxogwcd encounter Divina Tapia NP Work Phone: noms CWM FMComment on above:Encounter for subsequent annual wellness visit (AWV) in Medicare patient (Primary Dx); Type 2 diabetes mellitus with diabetic neuropathy, without long-term current use of insulin ([facility]); Essential (primary) hypertension (CMS/[facility]); Hypertensive chronic kidney disease with stage 1 through stage 4 chronic kidney disease, or unspecified chronic kidney disease ([facility]); Gastroesophageal reflux disease without esophagitis; Age-related osteoporosis without current pathological fracture ([facility]); Fibromyalgia; Class 2 severe obesity due to excess calories with serious comorbidity and body mass index (BMI) of36.0 to 36.9 in adult ([facility]); Type 2 diabetes mellitus without complication, without long-term current use of insulin ([facility]); Mixed hyperlipidemia ([facility])Start: 05-07-2024 End: 12-35-2032ddpeyrlqruTYYB AICHHOLSULEMAot AvailableStart: 05-07-2024 End: 10-58-1450Eobwbk GradeBeamheetDana nKoxpatricia CORN POPPER Work Phone: NOMS CWM FMStart: 05-07-2024 End: 17-50-1082Cfcdhx GradeBeamheetDana Garciapatricia CORN POPPER Work Phone: NOMS CWM FMStart: 05-03-2024 End: 65-91-9473Hkmztf Sokolinzion Jorge STATION MECHANIC APPRENTICE Work Phone: NOMS FB PTStart: 05-03-2024 End: 31-68-4302Mrbbvc [employer] Jorge STATION MECHANIC APPRENTICE Work Phone: NOMS FB PTStart: 05-03-2024 End: 82-06-9484odqccqtkkjHseomjih Jorge STATION MECHANIC APPRENTICE Work Phone: NOMS FB PTComment on above:Acute pain of right shoulder (Primary Dx); Status post reverse total arthroplasty of right shoulder; Shoulder stiffness, rightStart: 05-01-2024 End: 51-73-7126Tlkabf [employer] Jorge STATION MECHANIC APPRENTICE Work Phone: NOMS FB PTStart: 05-01-2024 End: 45-37-7007Hxnghk [employer] Jorge STATION MECHANIC APPRENTICE Work Phone: NOMS FB PTStart: 05-01-2024 End: 01-35-9545kebgohrsfrHrwframk Wright STATION MECHANIC APPRENTICE Work Phone: NOMS FB PTComment on above:Acute pain of right shoulder (Primary Dx); Status post reverse total arthroplasty of right shoulder; Shoulder stiffness, rightStart: 04-26-2024 End: 98-73-0206rwbrinzoofOlyvtt Tattersall PTANO FB PTComment on above:Acute pain of right shoulder (Primary Dx); Status post reverse total arthroplasty of right shoulderStart: 04-23-2024 End: 34-54-9229Pigkip flowsheetKyle J Buddy PT Work Phone: NOXR FB PTStart: 04-23-2024 End: 79-66-8889Qcxinz flowsheetKyle J Buddy PT Work Phone: noms FB PTStart: 04-23-2024 End: 66-69-5027oisdodkmisItmd J Buddy PT Work Phone: noms FB PTComment on above:Acute pain of right shoulder (Primary Dx); Status post reverse total arthroplasty of right shoulderStart: 04-19-2024 End: 75-39-9613Rowkfk follow up visit related to original pxCraig P Anibal VALE Work Phone: [facility] OrthopaedicsComment on above:S/P reverse total shoulder arthroplasty, right (Primary Dx)Start: 04-19-2024 End: 32-62-2648xproztqcmcXVYUN P ASSENMACHERProMedica New Lincoln Hospitaltart: 04-18-2024 End: 68-48-1595NlwmjzJosette Umaña Physicians [facility] OrthopaedicsComment on above:S/P reverse total shoulder arthroplasty, right (Primary Dx)Start: 04-17-2024 End: 15-32-6483Wcdbhmh encounter procedureSnestor Baer DPM Work Phone: NOMM PODIATRYComment on above:Dermatophytosis of nail (Primary Dx); Dystrophic nail; Pain around toenail, right foot; Pain around toenail, left footStart: 04-17-2024 End: 42-83-5209Xomljp flowsMaryann Baer DPM Work Phone: noms PODIATRYStart: 04-17-2024 End: 04-46-4859Jhfelz flowsheetSteven A Buffy DPM Work Phone: noms PODIATRYStart: 04-17-2024 End: 08-71-2222yvrnsyfwjbKIVUXC A BUFFYNot AvailableStart: 04-04-2024 End: 90-22-8769Aescalvrag and management of inpatientCRAIG P ASSENSelect Medical OhioHealth [facility] Hospital - Dublintart: 04-02-2024 End: 07-06-7488GnmrwnEhnk Aichholz NP Work Phone: noms CWM FMComment on above:Fibromyalgia; Polyneuropathy in diseases classified elsewhere ([facility]); ODALYS (generalized anxiety disorder) ([facility])Start: 03-21-2024 End: 41-51-4220Ivkgfmo encounter procedureBph Pre-Admission Testing [address] [place] [address] -Pre Admission TestingComment on above:Preop testing (Primary Dx); Liver diseaseStart: 03-21-2024 End: 22-49-6784Pgbzxjl encounter statusBp05 [address] Streettart: 04-08-0541rbqqglkaikXIHPE P ASSENMACHERProMedica New Lincoln Hospitaltart: 67-00-3622Dvmeaiipw for other preprocedural examinationCRAIG [facility] Hospitaltart: 03-19-2024 End: 32-77-4820Tiabwi outpatient visit 25 minutesDana Tapia CORN POPPER Work Phone: noms CWM FMComment on above:Pre-operative clearance (Primary Dx); Class 2 severe obesity due to excess calories with serious comorbidity and body mass index (BMI) of36.0 to 36.9 in adult ([facility]); Body mass index (BMI) 35.0-35.9, adult; Closed head injury, sequela; Hematoma of frontal scalp, sequela; Age-related osteoporosis without current pathological fracture ([facility]); Essential (primary) hypertension ([facility]); Gastroesophageal reflux disease without esophagitis; Type 2 diabetes mellitus without complication, without long-term current use of insulin ([facility]/HCC); Blurry vision, left eyeStart: 03-19-2024 End: 96-82-0972qtflkkxaxyRARA AICHHOLZNot AvailableStart: 03-19-2024 End: 54-67-7725Dbwwjt flowsheetLisa Aichholz CORN POPPER Work Phone: noms CWM FMStart: 03-19-2024 End: 18-92-2750Dcoogq flowsheetLisa Aichholz CORN POPPER Work Phone: NOYN CWM FMStart: 03-19-2024 End: 54-82-2880Jgosmvcuvbrg stateLisa Aichholz CORN POPPER Work Phone: noms HealthcareStart: 03-13-2024 End: 82-48-2198PcsorkZcgg Lisettehholz CORN POPPER Work Phone: noms CWM FMComment on above:Mixed hyperlipidemia (CMS/HCC)Start: 03-06-2024 End: 84-04-3154wrrpnileurPrgg Naderer MD Work Phone: [facility] Work Phone: Start: 03-06-2024 End: 13-99-6545Cijqkvy encounter procedureLex Martinez MD Work Phone: [facility] Work Phone: Start: 03-05-2024 End: 29-19-3890Kozzyo flowsheetLisa Aichholz CORN POPPER Work Phone: noms CWM FMStart: 03-05-2024 End: 53-33-0050Ltisjw flowsheetLisa Aichholz CORN POPPER Work Phone: [facility] CWM FMStart: 03-05-2024 End: 80-20-9635Dqxlro outpatient visit 15 minutesLisa Willie CORN POPPER Work Phone: noms CWM FMComment on above:Hematoma of frontal scalp, sequela (Primary Dx); Morbid [...] index (BMI) of36.0 to 36.9 in adult (CMS/HCC); Closed head injury, sequela; Blurry vision, left eyeStart: 03-05-2024 End: 41-71-9020zmhlcygrauPCJGJohanny Cordoba AvailableStart: 02-27-2024 End: 15-78-3637Kuwbph outpatient visit [address] [place] [address]Dana Tapia NP Work Phone: noms [facility] FMComment on above:Hematoma of frontal scalp, subsequent encounter (Primary Dx); Closed head injury, subsequent encounter; Class 2 severe obesity due to excess calories with serious comorbidity and body mass index (BMI) of36.0 to 36.9 in adult (CMS/HCC); Essential (primary) hypertension (CMS/HCC)Start: 02-27-2024 End: 54-69-9969wibnuelzpuLBLJJohanny Cordoba AvailableStart: 02-27-2024 End: 34-23-9323Ntuozx flowsBryan Tapia CORN POPPER Work Phone: noms [facility] FMStart: 02-27-2024 End: 76-46-5827Quswrt flowsBryan Tapia CORN POPPER Work Phone: noms [facility] FMStart: 02-20-2024 End: 87-91-3307Joegprlgc department patient visitDANA TAPIAMercy Health Clermont Hospitaltart: 02-20-2024 End: 48-11-5132BxajcpNcyd Aichholz CORN POPPER Work Phone: noms CWM FMComment on above:Fibromyalgia; Polyneuropathy in diseases classified elsewhere (CMS/HCC); ODALYS (generalized anxiety disorder) (CMS/HCC)Start: 02-17-2024 End: 96-10-4965Rgsjikdya Result EncounterLisa Willie CORN POPPER Work Phone: noms External Department UnsolicitedStart: 02-17-2024 End: 72-36-7724Gscbwvutt Result EncounterLisa Willie CORN POPPER Work Phone: noms External Department UnsolicitedStart: 02-10-2024 End: 99-92-8745Guixcuj encounter procedureLex Martinez MD Work Phone: [facility] [place] Work Phone: Start: 02-10-2024 End: 25-93-5609bcuvyjwywcMntxpv K MapusFacility:[facility] Hospitaltart: 02-06-2024 End: 82-97-2614Aoihdn outpatient visit 15 minutesDana Willie CORN POPPER Work Phone: noms CWM FMComment on above:Class 2 severe obesity due to excess calories with serious comorbidity and body mass index (BMI) of36.0 to 36.9 in adult (CMS/HCC) (Primary Dx); Essential (primary) hypertension (CMS/HCC); Acute non-recurrent pansinusitis; Encounter for screening mammogram for malignant neoplasm of breastStart: 02-06-2024 End: 81-34-2768dhbmbzernaDBVV AICHHOLZNot AvailableStart: 02-06-2024 End: 76-98-7071Nenfyb flowsheetDana Tapia CORN POPPER Work Phone: noms CWM FMStart: 02-06-2024 End: 04-56-1446Cqcgwl flowsheetDana Tapia CORN POPPER Work Phone: noms CWM FMStart: 03-73-0449qllvrpwqsdCOJS J AICHWIL[facility] MEMORIAL HOSPITALAdalberto [facility] PPGStart: 01-19-2024 End: 28-43-4890ccecenmgnnRWFFF P ASSENMACHERProMedica [facility]health [facility] HospitalStart: 01-16-2024 End: 94-82-9083Lkemxms encounter procedureSteven A Rusher DPM Work Phone: noms PODIATRYComment on above:Dermatophytosis of nail (Primary Dx); Dystrophic nail; Pain around toenail, right foot; Pain around toenail, left footStart: 01-16-2024 End: 78-17-5496qvxdavjjwbSQTVDJ A RUSHERNot AvailableStart: 01-16-2024 End: 60-17-9138Usxxau flowsheetSteven A Rusher DPM Work Phone: noms PODIATRYStart: 01-16-2024 End: 13-35-4531Cmmdse flowsheetSteven A Rusher DPM Work Phone: noms PODIATRYStart: 01-11-2024 End: 50-92-9751Izyxdp outpatient visit 25 minutesDana Tapia CORN POPPER Work Phone: noms CW FMComment on above:Fibromyalgia (Primary Dx); Polyneuropathy in diseases classified elsewhere (CMS/HCC); Class 2 severe obesity due to excess calories with serious comorbidity and body mass index (BMI) of36.0 to 36.9 in adult (CMS/HCC); ODALYS (generalized anxiety disorder) (CMS/HCC); Essential (primary) hypertension (CMS/HCC); Age-related osteoporosis without current pathological fracture (CMS/HCC); Primary osteoarthritis involving multiple jointsStart: 01-11-2024 End: 82-94-5248kdkxhqtrdaBJLX LISETTEHPORSHAZNot AvailableStart: 01-11-2024 End: 31-35-5335Ojwedf flowsheetDana Tapia CORN POPPER Work Phone: noms CWM FMStart: 01-11-2024 End: 05-42-7226Ofetux flowsheetDana Tapia CORN POPPER Work Phone: noms CWM FMStart: 01-10-2024 End: 78-17-6739Vuqwau Kevin Schilling DO Work Phone: noms CI ORTHOPAEDICSStart: 01-10-2024 End: 94-65-7742Gopwqd Kevin Schilling DO Work Phone: NOLQ CI ORTHOPAEDICSStart: 01-10-2024 End: 60-78-0744Hdjodu outpatient visit 10 minutesJeffrey Schilling DO Work Phone: noms CI ORTHOPAEDICSComment on above:Status post right rotator cuff repair (Primary Dx); Right shoulder pain, unspecified chronicityStart: 01-10-2024 End: 47-67-4362ckkggaxkhuQUGSM A HUDDLESTONKaity AvailableStart: 01-09-2024 End: 02-20-4441rvwjavymuyHmialwog Wright STATION MECHANIC APPRENTICE Work Phone: NOMS FB PTComment on above:Acute pain of right shoulder (Primary Dx); Shoulder stiffness, rightStart: 01-06-2024 End: 32-35-0470wgeyiurwhlTstg J Spriggs PT Work Phone: noms FB PTComment on above:Acute pain of right shoulder (Primary Dx); Shoulder stiffness, rightStart: 01-05-2024 End: 66-03-2482Kbrqws Harjit Pulido NP Work Phone: NOMS FB ORTHOPAEDICSStart: 01-05-2024 End: 69-65-6386Rjcptp Harjit Pulido NP Work Phone: NOMS FB ORTHOPAEDICSStart: 01-05-2024 End: 92-18-3829Bbzefk outpatient visit 10 minutesMay Pulido NP Work Phone: NOMS FB ORTHOPAEDICSComment on above:Status post right rotator cuff repair (Primary Dx); Right shoulder pain, unspecified chronicityStart: 01-05-2024 End: 51-86-9555eztfjiudqzSMATB T OLSENNot AvailableStart: 01-02-2024 End: 21-40-4083Yynwye flowsheetKyeduardo Goodwin PT Work Phone: NOFX FB PTStart: 01-02-2024 End: 03-44-0487Sxjgpg flowsheetKyeduardo Goodwin PT Work Phone: NOEN FB PTStart: 01-02-2024 End: 02-13-1235rtqphbmohjHpzq J Spriggs PT Work Phone: NOKU FB PTComment on above:Acute pain of right shoulder (Primary Dx); Shoulder stiffness, rightStart: 12-30-2023 End: 66-14-4115Dskzyq flowsheetChristine ANDERSON FB PTStart: 12-30-2023 End: 06-76-5240Komvfq flowsheetChristine Uribe PTANO FB PTStart: 12-30-2023 End: 12-02-2008flehxnwbxePzdyxzz Kelbley PTAKVNG FB PTComment on above:Acute pain of right shoulder (Primary Dx); Shoulder stiffness, rightStart: 12-29-2023 End: 38-89-4129GiwxptRgdz Aichholz CORN POPPER Work Phone: noms CWM FMComment on above:Gastro-esophageal reflux disease without esophagitis; Esophageal refluxStart: 12-28-2023 End: 46-64-9204Kvhocr flowsheetJesenia Jorge STATION MECHANIC APPRENTICE Work Phone: NOMQ FB PTStart: 12-28-2023 End: 83-66-8157Vqtbxm flowsheetHello Chairzion Jorge STATION MECHANIC APPRENTICE Work Phone: NORJ FB PTStart: 12-28-2023 End: 89-11-3291xxartqlwdkZdpilxsd Wright STATION MECHANIC APPRENTICE Work Phone: NOMS FB PTComment on above:Acute pain of right shoulder (Primary Dx); Shoulder stiffness, rightStart: 12-23-2023 End: 58-74-5688Qhxooe GradeBeamheetHello Chairzion Jorge STATION MECHANIC APPRENTICE Work Phone: NOJE FB PTStart: 12-23-2023 End: 66-19-0953Vnubla HapticomJesenia Jorge STATION MECHANIC APPRENTICE Work Phone: NOFR FB PTStart: 12-23-2023 End: 20-09-2001ksswdzkrhlTjbcxskx Wright STATION MECHANIC APPRENTICE Work Phone: NOHM FB PTComment on above:Acute pain of right shoulder (Primary Dx); Shoulder stiffness, rightStart: 12-19-2023 End: 83-06-9649Xkiljs flowsheetKyle J Buddy PT Work Phone: NOCO FB PTStart: 12-19-2023 End: 70-34-6713Prqppu flowsheetKyle J Buddy PT Work Phone: NOWN FB PTStart: 12-19-2023 End: 97-61-9272idwqxxbghoGjfj J Buddy PT Work Phone: NOPD FB PTComment on above:Acute pain of right shoulder (Primary Dx); Shoulder stiffness, rightStart: 12-16-2023 End: 84-41-8214Qhevtm GradeBeamRenee Jorge STATION MECHANIC APPRENTICE Work Phone: NOAY FB PTStart: 12-16-2023 End: 11-00-0071Hqgugm GradeBeamRenee Jorge STATION MECHANIC APPRENTICE Work Phone: NONJ FB PTStart: 12-16-2023 End: 89-11-0622qrqpgryaaeZxtxtuwa Wright STATION MECHANIC APPRENTICE Work Phone: NOIL FB PTComment on above:Acute pain of right shoulder (Primary Dx); Shoulder stiffness, rightStart: 12-15-2023 End: 61-10-2196XpfsshQnfs Aichholz CORN POPPER Work Phone: NOPF CWM FMComment on above:Arthropathy, unspecified; Unspecified osteoarthritis, unspecified siteStart: 12-14-2023 End: 38-73-5325Afmzzc flowsheetKyle J Buddy PT Work Phone: NOKX FB PTStart: 12-14-2023 End: 56-02-2673Qfeumi flowsGustabo Goodwin PT Work Phone: NOEN FB PTStart: 12-14-2023 End: 02-57-9905dhayzmiiobDfhh J Spriggs PT Work Phone: NOXS FB PTComment on above:Acute pain of right shoulder (Primary Dx); Shoulder stiffness, rightStart: 12-12-2023 End: 83-14-9430vuhxuowbyqPsavcxffkOhio State [facility]ing [facility] Work Phone: Start: 12-12-2023 End: 63-77-7919Bjulebq encounter procedureNovant Health [facility] Nephrology [place] Work Phone: Start: 12-12-2023 End: 84-81-8223Jyyhri Harjit Pulido CORN POPPER Work Phone: NOBI FB ORTHOPAEDICSStart: 12-12-2023 End: 86-30-2311Iwxdgu Harjit Pulido CORN POPPER Work Phone: NOAZ FB ORTHOPAEDICSStart: 12-12-2023 End: 98-21-6381Zgrlvl follow up visit related to original Simon Pulido CORN POPPER Work Phone: NOBU FB ORTHOPAEDICSComment on above:Status post right rotator cuff repair (Primary Dx)Start: 12-12-2023 End: 89-12-9874ibzmesqhcmWMINT T OLSENNot AvailableStart: 12-09-2023 End: 44-20-7720Dtiuek Cuca Jorge STATION MECHANIC APPRENTICE Work Phone: NOMS FB PTStart: 12-09-2023 End: 44-52-6500Evxvof Cuca Jorge STATION MECHANIC APPRENTICE Work Phone: NOMS FB PTStart: 12-09-2023 End: 53-07-5073elizbabspgSinqoocj Wright STATION MECHANIC APPRENTICE Work Phone: NOMS FB PTComment on above:Acute pain of right shoulder (Primary Dx); Shoulder stiffness, rightStart: 12-07-2023 End: 34-00-4384rcccwqbfzjMxjojqmx Wright STATION MECHANIC APPRENTICE Work Phone: NOBV FB PTComment on above:Acute pain of right shoulder (Primary Dx); Shoulder stiffness, rightStart: 12-06-2023 End: 24-78-9492Bfmlzstwq Result EncounterGeneric External Data ProviderNOMS External Department UnsolicitedStart: 12-06-2023 End: 44-08-7600Dexsujfra Result EncounterGeneric External Data ProviderNOMS External Department UnsolicitedStart: 46-90-5200Dbg-patient / Non-visitFirelands Physician [facility] Work Phone: Start: 12-02-2023 End: 52-16-1665Vdkcdu Cuca Jorge STATION MECHANIC APPRENTICE Work Phone: noms FB PTStart: 12-02-2023 End: 38-25-1443Ociifa Cuca Jorge STATION MECHANIC APPRENTICE Work Phone: NOJD FB PTStart: 12-02-2023 End: 65-99-9417qpqzalennrYwxesxob Wright STATION MECHANIC APPRENTICE Work Phone: noms FB PTComment on above:Acute pain of right shoulder (Primary Dx); Shoulder stiffness, rightStart: 11-30-2023 End: 16-62-2426Cznhph flowsheetKyle J Buddy PT Work Phone: NOKH FB PTStart: 11-30-2023 End: 40-09-2267Sfgghn flowsheetKyle J Buddy PT Work Phone: NOHI FB PTStart: 11-30-2023 End: 24-77-9619ehlcjzobsaFott J Buddy PT Work Phone: NOUB FB PTComment on above:Acute pain of right shoulder (Primary Dx); Shoulder stiffness, rightStart: 11-28-2023 End: 49-79-9083Cesepz Catia Tapia CORN POPPER Work Phone: noms CWM FMStart: 11-28-2023 End: 80-02-7746Jfmwbj flavioDana Knoxtrinitypatricia CORN POPPER Work Phone: NOCK CWM FMStart: 11-28-2023 End: 37-52-6068Ixczlj outpatient visit 25 minutesLisa Garciapatricia CORN POPPER Work Phone: NOMS CWM FMComment on above:Essential (primary) hypertension (CMS/HCC) (Primary Dx); Fibromyalgia; Polyneuropathy in diseases classified elsewhere ([facility]/HCC); ODALYS (generalized anxiety disorder) ([facility]); Type 2 diabetes mellitus without complication, without long-term current use of insulin ([facility])Start: 11-28-2023 End: 68-10-0347qtujhstexsYJFC AICHHOLZNot AvailableStart: 11-24-2023 End: 89-87-9484Accewk GradeBeamGustabo QoviaBuddy PT Work Phone: NOZW FB PTStart: 11-24-2023 End: 66-34-1624Rvswwr GradeBeamgladysServicefuleduardo Labtiva PT Work Phone: NOYZ FB PTStart: 11-24-2023 End: 94-20-5067yhogaifwurNriu J Spriggs PT Work Phone: NOMS FB PTComment on above:Acute pain of right shoulder (Primary Dx); Shoulder stiffness, rightStart: 11-14-2023 End: 23-54-0598Msctut Harjit Pulido CORN POPPER Work Phone: NOMS FB ORTHOPAEDICSStart: 11-14-2023 End: 57-84-3032Kxxflh Harjit uPlido CORN POPPER Work Phone: NOMS FB ORTHOPAEDICSStart: 11-14-2023 End: 16-02-5156Ftdrce follow up visit related to original Simon Pulido NP Work Phone: NOMS FB ORTHOPAEDICSComment on above:Status post right rotator cuff repairStart: 11-14-2023 End: 97-89-8436lgcplkcnclIACAI T OLSENNot AvailableStart: 10-05-2023 End: 57-30-9987Oiwwzquguo and management of inpatientDAVID Tamara [facility] Centertart: 10-05-2023 End: 74-65-4365Mgddbcdsgl and management of inpatientJAADALID España [facility] Hospitaltart: 10-04-2023 End: 78-05-3235rxxmwqkyfqNvsiuhywcBarney [facility] Work Phone: Start: 10-04-2023 End: 35-57-2925Dqcoedz encounter procedureEcu Health North Hospitalhector [facility] Work Phone: Start: 09-28-2023 End: 21-60-9836Rkxjiswxhplf stateLeo Goodwin PT Work Phone: noms HealthcareStart: 09-27-2023 End: 25-66-8084pyhwcwoshyERDSY A [facility] HospitalStart: 00-61-0712Bamtcqivc for other preprocedural examinationLISA Berger Hospitaltart: 06-13-2023 End: 13-98-7624gtvxckysjeQCGTRAIQB NO [facility] Work Phone: Start: 06-13-2023 End: 35-75-4975Qwquera encounter procedurePHYSICIAN NO [facility] Physician [facility] Nephrology Work Phone: Start: 82-89-1492Agt-patient / Non-visitPHYSICIAN NO [facility] Physician [facility] Work Phone: Start: 69-81-5907Nna-patient / Non-visitPHYSICIAN NO [facility] Work Phone: Start: 04-13-2023 End: 37-76-7540Pzieqfq encounter procedureStejohn Baer DPM Work Phone: noms PODIATRYComment on above:Dermatophytosis of nail (Primary Dx); Dystrophic nail; Pain around toenail, right foot; Pain around toenail, left footStart: 00-16-3410Ccdvrk flowsheetStejohn Baer DPM Work Phone: noms PODIATRYStart: 49-43-9827Hzhols flowsheet Carlos Baer DPM Work Phone: noms PODIATRYStart: 03-31-2023 End: 68-36-0822jcgjykjfvhISFUXXTVG [facility] Work Phone: Start: 03-31-2023 End: 59-90-3639Gllmxvlwgf RecurringPHYSICIAN [facility] Work Phone: Start: 03-31-2023 End: 61-71-5481Jzyfmeh encounter procedurePHYSICIAN [facility]-Start: 87-02-8547Bnwodps encounter procedureStejohn Baer DPM Work Phone: noms HealthcareStart: 03-25-2023 End: 83-84-2782ktzozpigxhKLNABJ K MAPUSPAultman Orrville Hospitaltart: 03-03-2023 End: 53-45-5551qsfzjndrjgPmerl Buck Other [facility] edPULSE Other Start: 83-26-8189Qjipzrjzv encounterAbdul QadirFPG NephrologyStart: 02-18-2023 End: 38-29-8854Zykpfdxrq Result EncounterLisa Aichholz CORN POPPER Work Phone: noms External Department UnsolicitedStart: 02-18-2023 End: 32-56-3276Mpcpqitze Result EncounterLisa Aichholz CORN POPPER Work Phone: noms External Department UnsolicitedStart: 02-16-2023 End: 18-16-8299Jdabzvuzg Result EncounterLisa Aichholz CORN POPPER Work Phone: noms External Department UnsolicitedStart: 02-16-2023 End: 44-11-8405Oibthzdmx Result EncounterLisa Willie CORN POPPER Work Phone: noms External Department UnsolicitedStart: 12-14-2022 End: 84-20-7941hzowwyncxtUtbct Buck Other nort edPULSE Other Start: 34-26-9721Mnhqwx outpatient visit 15 minutes Eboni QadirFPG NephrologyStart: 09-29-2022(DM) DiabetesTondra MapusFirelands Coordinated Care ClinicStart: 09-29-2022 End: 97-30-2936argzwpipobEncigi Mapus Other [employer] edPULSE Other Start: 09-03-2022 End: 30-46-8626xtbwofiuvuXamxmo Mapus Other [employer] edPULSE Other Start: 72-55-5103Taecicqwl encounterTondra PravinSaint Alphonsus [facility] Coordinated Care ClinicStart: 06-08-2022 End: 70-19-9602ygbbhcwmhaWgacr Buck Other nort edPULSE Other Start: 17-77-5426Ijejzz outpatient visit 25 minutes Eboni QadirFPG NephrologyStart: 06-02-2022 End: 49-31-1229cqfitjzivpVILGT QADIRFacility:O1Flxxf: 04-01-2022 End: 41-53-5312ykhvcmlonlPrdedl Mapus Other [employer] Other Start: 30-15-1525Ciqnupkow encounterTondra Mapus [facility] Coordinated Care ClinicStart: 03-31-2022(DM) DiabetesTondra Mapus [facility] Coordinated Care ClinicStart: 03-31-2022 End: 86-66-3756bpfxhtncmpBeraxi Mapus Other [employer] Other Start: 14-81-8705Jucuacfvh encounterAbdul QadirFPG NephrologyStart: 03-30-2022 End: 59-99-4530ewusaxfpmuCXKGQI MAPUSFacility:R2Bmfcr: 02-05-2022 End: 59-92-8368ejhbvzydlqRYA DANA AICHHOLZFacility:K2Icisz: 01-14-2022 End: 96-97-9012hqtellxmehOubux Buck Other [employer] Other Start: 73-07-1137Yxlsyuxme encounterAbdul QadirFPG NephrologyStart: 12-29-2021 End: 33-60-0981llqrrwyujkRoeih Buck Other [employer] Other Start: 52-45-6550Zjmcrxhqp encounterAbdul QadirFPG NephrologyStart: 12-22-2021 End: 77-51-9107djfeziehpwLZZJM QADIRFacility:O6Owbwp: 12-21-2021(DM) Diabetes Tondra MapusFirelands Coordinated Care ClinicStart: 12-21-2021 End: 09-48-8780cnxjrwswixBlmaqm Mapus Other [employer] Other Start: 12-14-2021 End: 08-91-5352toolcqttjyAwkvf Bcuk Other [employer] Other Start: 48-38-1488Wejeeo outpatient visit 25 minutes Eboni QadirFPG NephrologyStart: 12-04-2021 End: 66-94-0010cagplfkbfrGTOBGD MAPUSFacility:E8Sglzj: 09-23-2021 End: 80-89-1771bssgndnfblTfjlak Janae Other [employer] Other start: 04-61-1711Bvmatx outpatient visit 15 minutes Kristin CardosoFPG [facility] Care ClydeStart: 06-23-2021(DM) DiabetesTondra Sadaf Gonzalezmulticare health Coordinated Care ClinicStart: 06-23-2021 End: 58-69-4682sylgcsponaKpgafg [employer] Other [employer] Other Start: 06-18-2021 End: 33-26-1374jpctzviaavTJR DANA DONAdalbertoFacility:U3Jodjx: 06-17-2021 End: 07-28-2729wzkxvqvzizOTD DANA KNOXLOWER BUCKS HOSPITALSULEMAst. louis children's hospital edPULSE Other Start: 14-44-3234Uxvbvu outpatient visit 25 minutes Eboni QadirFPG NephrologyStart: 06-12-2021 End: 57-59-7272hgoixiftwiJLGDU QADIRFacility:S5Nendb: 06-09-2021 End: 15-45-0178hbthalozmgElfesd [employer] Other [employer] Other Start: 06-39-4850Orgnrthef encounterTondra Sadaf Gonzalezmulticare health Coordinated Care ClinicStart: 66-56-6281Qjkxnv outpatient visit 15 minutesAbdul QadirFPG NephrologyStart: 12-17-2020(DM) DiabetesErickdra Sadaf [facility] Coordinated Care ClinicStart: 12-05-2020([facility] C Vac) [facility] Covid VaccineDawn [facility] Coordinated Care ClinicStart: 09-21-2016 End: 22-40-2307DwqiiuphuhLZONAK J GEHLINGFacility:[facility] Procedures DateProcedureProcedure DetailPerforming ClinicianStart: 87-34-9953DJ lumbar spine wo Robbie Martinez MD Work Phone: Start: 79-54-8189MPNY CBC WITH PLATELET NO DIFFERENTIALGeneric External Data ProviderStart: 61-52-1784Vocqb metabolic panel calcium totalCristopher Ellington MD Work Phone: Start: 60-56-5998Jurxdnq function panelCristopher Ellington MD Work Phone: Start: 14-99-7740BA TOMOSYNTHESIS SCREENING NICOLEjehtro Willie CORN POPPER Work Phone: Start: 30-92-1484DXZZ CBC WITH PLATELET NO DIFFERENTIALGeneric External Data ProviderStart: 00-32-9975NF DEXA AXIAL SKELETONLisa Willie ELDRIDGE Work Phone: Start: 91-05-0280PI TOMOSYNTHESIS SCREENING BILisa Willie CORN POPPER Work Phone: History of repair of musculotendinous cuff of shoulder Status post right rotator cuff repairMay Pulido NP Work Phone: History of repair of musculotendinous cuff of shoulder Status post right rotator cuff repairMay Pulido NP Work Phone: History of repair of musculotendinous cuff of shoulder Status post right rotator cuff repairJeffrey Schilling DO Work Phone: History of repair of musculotendinous cuff of shoulder Status post right rotator cuff repairMay Pulido NP Work Phone: Plan of Treatment DateCare ActivityDetailAuthorStart: 19-68-2159Uwwuezz ScreeningTobacco Screening [facility] SystemStart: 99-80-8590Jbekfog ScreeningTobacco Screening [facility] SystemStart: 66-69-8716Utyxdng ScreeningTobacco Screening [facility] SystemStart: 38-45-1805Vxvet screening for proteinDiabetes: Urine Protein ScreeningTexas County Memorial HospitalStart: 19-57-9459Qzvmhav ScreeningTobacco ScreeningProMedica Health SystemStart: 05-08-2025 End: 79-01-1259Beflwxn encounter stevnmgth74/11/2026 5:00 PM EDT Office Visit [facility] [address] [place] [address] Dana Tapia NP [address] [place] [address] [facility] ENG FMStart: 03-10-2026Medicare Annual Wellness (AWV) Medicare Annual Wellness (AWV)NOMS HealthcareStart: 09-93-7402Zmzwyku Screening Tobacco ScreeningProParkview Healthca Health SystemStart: 61-82-9331Fdzllrl Screening Tobacco ScreeningProWayne Healthcare Main Campus SystemStart: 12-60-9003Rtkwxpvywq A1c measurementDiabetes: Hemoglobin Y6XAGEY HealthcareStart: 88-53-1783Wcijbqf ScreeningTobacco ScreeningProWayne Healthcare Main Campus SystemStart: 01-16-2025 End: 48-63-8329Qtklzlb encounter ledeoavwc87/19/2025 2:45 PM EST Procedure Visit [facility] [address] [place] [phone] Carlos Baer DPM [address] [place] [address] NOMHector Woo PodiatryStart: 40-83-1268Lhyvjyjp screening Diabetes: Retinopathy ScreeningTHE [facility]THOPEDIC SPECIAL[facility] HealthcareStart: 11-08-2024 End: 64-67-2310Vleempf encounter hpwavukjh64/11/2025 2:50 PM EDT Office Visit [facility] [address] [place], [place] [address] Daniel Wolf MD [address] [place] [address] [facility] Assenkaitlynn OrthopaedicsStart: 11-08-2024 End: 37-46-0337OB Shoulder - right 2 ViewsProMedica Work Phone: Comment on above:Expected: 11/08/2024, Expires: 11/08/2025Start: 11-06-2024 End: 85-31-4062Ikyqjsm encounter kfejqeqbf85/09/2025 2:00 PM EDT Office Visit [facility] [address] [place] [address] Dana Tapia, CHENTE [address] [place] [address] NOMS CW FMStart: 41-44-2021ATEWM-19 Vaccine (8 - Pfizer risk season)COVID-19 Vaccine (8 - Pfizer risk )[facility]icFair[facility] and Clinic SystemStart: 32-98-8552Jvhaxpwqa vaccinationProParkview Healthca [facility] SystemStart: 10-16-2024 End: 29-97-4255Lgmgbat encounter procedureNOMS PODIATRYComment on above: ArrivedStart: 99-45-0109Xmvbrxtnwt A1c measurementDiabetes: Hemoglobin L2QOIBF HealthcareStart: 08-22-2024 End: 31-10-2302Iolgsrz encounter procedureNOMS [facility] FMComment on above:Class 2 severe obesity due to excess calories with serious comorbidity and body mass index (BMI) of36.0 to 36.9 in adult ([facility]) (Primary Dx); ODALYS (generalized anxiety disorder)Start: 07-16-2024 End: 17-15-4866Ikpmqnu encounter procedureNOMS PODIATRYComment on above: ArrivedStart: 07-12-2024 End: 86-52-5141Iqbwnld encounter procedureNOMS [facility] FMComment on above:Class 2 severe obesity due to excess calories with serious comorbidity and body mass index (BMI) of36.0 to 36.9 in adult (CMS/HCC) (Primary Dx); Back pain of lumbar region with sciaticaStart: 06-28-2024 End: 86-57-8059Giroxui encounter zkmwvxcin42/01/2025 10:20 AM EDT Office Visit [facility] [address] [place] [address] Daniel Wolf MD [address] [place], [place] [address] [facility] OrthopaedicsStart: 06-07-2024 End: 11-47-9904biuuufdvoh85/10/2025 1:30 PM EDT Treatment [facility] FB PT [address] [place] [address] Mely Grossman PTANOMS FB PTStart: 79-66-1271Fpmag screening for proteinDiabetes: Urine Protein ScreeningTexas County Memorial HospitalStart: 06-05-2024 End: 98-83-2496qoldnzcdcn94/08/2025 1:30 PM EDT Treatment [facility] FB PT [address] [place] [address] Mely Grossman PTANOMS FB PTStart: 48-87-0530TEIOB-19 Vaccine (8 - Pfizer risk )COVID-19 Vaccine (8 - Pfizer risk )[facility] SystemStart: 05-31-2024 End: 19-18-5691ponvilrsmy84/03/2025 1:30 PM EDT Treatment [facility]OM[facility] FB PT [address] [place] [address] Jesenia Jorge, STATION MECHANIC APPRENTICE [address] [place], [place] [address] NOMS FB PTStart: 05-30-2024 End: 60-01-3885Fdftukt encounter procedureNOMERCY [facility] [place] FMComment on above:Class 2 severe obesity due to excess calories with serious comorbidity and body mass index (BMI) of36.0 to 36.9 in adult (CMS/HCC) (Primary Dx); Essential (primary) hypertension (CMS/HCC); Gastro-esophageal reflux disease without esophagitis; Esophageal refluxStart: 05-29-2024 End: 24-31-3860ptvfzdvkwv90/01/2025 1:30 PM EDT Treatment [facility] FB PT [address] [place] [address] Leo Goodwin, PT [address] [place], [place] [address] NOMS FB PTStart: 05-24-2024 End: 02-82-8326znvepbcdehEVVI FB PTComment on above:ArrivedStart: 05-22-2024 End: 41-86-3897ioewxpxydk59/25/2025 1:30 PM EDT Treatment [facility] FB PT [address] [place] [address] Jesenia Jorge, STATION MECHANIC APPRENTICE [address] [place] [address] NOMS FB PTStart: 05-17-2024 End: 88-59-2345fkdhwefgtl84/20/2025 1:30 PM EDT Treatment [facility] FB PT [address] [place] [address] Mely Grossman PTANOMS FB PTStart: 05-17-2024 End: 04-63-5477Ssqehuv encounter uckbpmdgy25/20/2025 10:20 AM EDT Office [facility] [address] [facility] [address] [phone] Daniel Wolf MD [facility] [place] [address] [facility] OrthopaedicsStart: 05-15-2024 End: 03-37-4117dwnedrcohx65/18/2025 1:30 PM EDT Treatment [facility] FB PT [address] [place] [address] Leo Goodwin, PT [address] [facility], [place] [phone] NOMS FB PTStart: 05-10-2024 End: 95-62-1365wzdiugbdelMJDS FB PTComment on above:ArrivedStart: 05-08-2024 End: 59-44-5563xgplymucbcAXHH FB PTStart: 05-07-2024 End: 63-39-7350Tfvynfx encounter procedureNOMS CWM FMComment on above:Type 2 diabetes mellitus with diabetic neuropathy, without long-term current use of insulin ([facility]/HCC) (Primary Dx); Essential (primary) hypertension (CMS/HCC); Hypertensive chronic kidney disease with stage 1 through stage 4 chronic kidney disease, or unspecified chronic kidney disease (CMS/HCC); Gastroesophageal reflux disease without esophagitis; Age-related osteoporosis without current pathological fracture (CMS/[facility]); Fibromyalgia; Class 2 severe obesity due to excess calories with serious comorbidity and body mass index (BMI) of36.0 to 36.9 in adult (CMS/HCC); Type 2 diabetes mellitus without complication, without long-term current use of insulin (CMS/[facility]); Mixed hyperlipidemia (CMS/[facility]); Encounter for subsequent annual wellness visit (AWV) in Medicare patientStart: 05-03-2024 End: 01-91-1326oqlktrgnahXUQY FB PTComment on above:ArrivedStart: 05-01-2024 End: 67-98-2623pzjrqgcpbrSEJH FB PTComment on above:ArrivedStart: 04-26-2024 End: 69-10-9875bbjxownlvd04/27/2025 1:30 PM EST Treatment [facility] PT [address] [place] [address] Mely Grossman PTANOMS FB PTStart: 04-23-2024 End: 55-45-2469kvhasjlvrw29/24/2025 12:30 PM EST Evaluation [facility] FB PT [address] [place] [address] Leo Goodwin, PT [address] [place], [place] [address] Sallie DIXON PT Comment on above:ArrivedStart: 04-19-2024 End: 89-36-0291Izleoes encounter vwxmhmjme02/20/2025 9:50 AM EST Office Visit [facility] [address] [facility] [address] [place] [address] Daniel Wolf MD [address] [place] [address] [place] [facility] Wolf OrthopaedicsStart: 04-18-2024 End: 70-55-1506SI Shoulder - right 2 ViewsX-ray shoulder right minimum 2 views Imaging Routine S/P reverse total shoulder arthroplasty, rightExpected: 04/18/2024, Expires: 04/18/2025[facility] Work Phone: Comment on above:Expected: 04/18/2024, Expires: 04/18/2025Start: 04-17-2024 End: 07-62-0579Swlfrvv encounter procedureNOMS PODIATRYComment on above: ArrivedStart: 11-76-1536Uunoogrkqi A1c measurementDiabetes: Hemoglobin J0CDPGD HealthcareStart: 04-04-2024 End: 13-80-1875Locbtenzj to same day surgery nuvmjy0404/04/2024 10:00 AM EST - 04/04/2024 11:45 AM EST [facility] [address] [place] [address] Daniel Wolf MD [address] [place] [phone] REVERSE ARTHROPLASTY TOTAL SHOULDER [12799 (CPT )][facility] Comment on above:REVERSE ARTHROPLASTY TOTAL SHOULDER [96094 (CPT )]Start: 04-04-2024 End: 01-75-7706Toblkicoyhua glenohumeral joint total shoulderREVERSE ARTHROPLASTY TOTAL SHOULDER Rotator cuff arthropathy of right shoulder 04/04/2024 10:00 AM [facility] SURGERYStart: 25-45-8450Dlijkghepu hospital visit by tirsrudht49/05/2025 10:00 AM EST [facility] [address] [place] [address] [place] [address] Daniel Wolf MD [address] [place] [phone] [facility]geryStart: 03-28-2024 Medicare Annual Wellness (AWV)Medicare Annual Wellness (AWV)[facility] Healthcare Start: 03-19-2024 End: 96-14-5453Fzfozas encounter procedureNOMERCY [facility] [place] FMComment on above:Class 2 severe obesity due to excess calories with serious comorbidity and body mass index (BMI) of36.0 to 36.9 in adult (CMS/HCC) (Primary Dx); Body mass index (BMI) 35.0-35.9, adult; Closed head injury, sequela; Hematoma of frontal scalp, sequela; Age-related osteoporosis without current pathological fracture (CMS/HCC)Start: 03-14-2024 End: 41-47-9781Mctzoic encounter yswshrhtf96/15/2025 10:15 AM EST Office [facility] [address] [place] [address] Paco Scott, DO [address] [place] [address] [facility]THOAOStart: 03-05-2024 End: 21-57-6288Nepyuhu encounter procedureNOMERCY H[facility] [place] [place] [facility] [place] FMComment on above: Hypertensive chronic kidney disease with [...] Chronic kidney disease, stage 3a (HCC) (CMS/HCC); Class 2 severe obesity due to excess calories with serious comorbidity and body mass index (BMI) of36.0 to 36.9 in adult (CMS/HCC); Closed head injury, sequela; Hematoma of frontal scalp, sequelaStart: 02-27-2024 End: 61-80-1346Vvdneqa encounter paycavdjm79/30/2024 6:40 PM EST Office Visit [facility] [address] [place] [address] Dana Tapia, CORN POPPER [address] [place] [address] [facility]ordenSONORA [facility] FMComment on above:ArrivedStart: 02-20-2024 End: 21-24-2764Ryodxhp encounter qoteshktv18/23/2024 1:40 PM EST Office Visit [facility] [address] [place] [address] Dana Tapia, CORN POPPER [address] [place] [address] [facility] FMStart: 02-06-2024 End: 05-44-8561Aybokts encounter yuhytmfcc42/09/2024 4:00 PM EST Office [facility] [address] [place] [address] Dana Tapia, CORN POPPER [address] [place] [address] [facility] [place] FMComment on above:ArrivedStart: 02-06-2024 End: 78-32-8533OW Breast - bilateral ScreeningBilateral screening mammogram Imaging Routine Encounter for screening mammogram for malignant neoplasm of breast Expected: 02/06/2024 (Approximate), Expires: 04/08/2025[facility] Work Phone: Comment on above:Expected: 02/06/2024 (Approximate), Expires: 04/08/2025Start: 2024 End: 95-78-5965cqqdfljcox61/02/2024 7:00 AM EST Treatment [facility] PT [address] [place] [address] Leo Goodwin, PT [address] [place] [address] NOMS FB PTStart: 94-64-3416MRYBG-19 Vaccine ( season)COVID-19 Vaccine ( season)[facility] SystemStart: 01-25-2024 End: 58-78-7426ptglgmgeup62/27/2024 7:00 AM EST Treatment [facility] PT [address] [place] [address] Jesenia Jorge, STATION MECHANIC APPRENTICE [address] [place] [address] NOMS FB PTStart: 01-23-2024 End: 03-52-1286wslsygmuam04/25/2024 7:00 AM EST Treatment [facility] PT [address] [place] [address] Jesenia Jorge, STATION MECHANIC APPRENTICE [address] [place] [address] NOMS FB PTStart: 01-20-2024 End: 99-30-8826fosuhnuxjf92/22/2024 7:00 AM EST Treatment [facility] [address] [place] [address] Jesenia Jorge, STATION MECHANIC APPRENTICE [address] [place] [address] NOMS FB PTStart: 01-17-2024 End: 76-04-1751Hptlyye encounter gkbcetmmi57/19/2024 9:30 AM EST Office Visit [facility] [address] [place] [address] Jeffrey Schilling DO [address] [place] [address] [facility] ORTHOPAEDICSStart: 01-16-2024 End: 17-39-4179Kacigxg encounter procedureNOMS FH PODIATRYComment on above: ArrivedStart: 01-16-2024 End: 04-77-4563uewxqrjush45/18/2024 7:00 AM EST Treatment [facility] [address] [place] [phone] Jesenia Jorge, STATION MECH[employer]IC APPRENTICE [address] [place] [address] [facility] PTStart: 01-13-2024 End: 64-63-7406meelbpjucv49/15/2024 7:00 AM EST Treatment [facility] [address] [place] [phone] Leo Goodwin, PT [address] [place] [address] [facility] PTStart: 01-12-2024 End: 79-83-4652Ublmrsz encounter hodsyixfl47/14/2024 9:15 AM EST Office Visit [facility] [address] [place] [phone] Jeffrey Schilling, DO [address] [place] [address] [facility]ICSStart: 01-11-2024 End: 28-59-2605Geltykk encounter ikgomdjdg91/13/2024 2:20 PM EST Office Visit [facility] [address] [place] [address] Dana Tapia, [employer] POPPER [address] [place] [address] [facility] FMStart: 01-10-2024 End: 39-90-7811Atdctkf encounter ldribnznz94/12/2024 11:45 AM EST Office Visit [facility] [address] [place] [address] Jeffrey Schilling, DO [address] [place] [address] [facility]Start: 01-09-2024 End: 29-62-3871vgqtxpbbug16/11/2024 7:00 AM EST Treatment [facility] [address] [place] [address] Jesenia Jorge, STATION MECHANIC APPRENTICE [address] [place] [address] [facility] PTStart: 01-06-2024 End: 38-98-8064etiiazcbap57/08/2024 7:30 AM EST Treatment [facility] [address] [place] [address] Jesenia Jorge, STATION MECHANIC APPRENTICE [address] [place] [address] [facility] PTStart: 01-05-2024 End: 75-71-0427Cjqkdee encounter zcmevcgzn50/07/2024 9:45 AM EST Office Visit [facility] [address] [place] [address] May Pulido, CORN POPPER [address] [place] [address] ArrivedNOMS FB ORTHOPAEDICSComment on above:ArrivedStart: 01-02-2024 End: 48-53-0865bftxcsmzay34/04/2024 7:30 AM EST Treatment [facility] [address] [place] [address] Leo Goodwin, PT [address] [place] [address] [facility] PTStart: 12-30-2023 End: 28-02-7155rpzeubrwmlLKLN FB PTStart: 12-28-2023 End: 26-08-7239axfukrgtts11/30/2024 7:00 AM EDT Treatment [facility] [address] [place] [address] Jesenia Jorge, STATION MECHANIC APPRENTICE [address] [place] [address] [facility] PTStart: 12-23-2023 End: 08-18-7878kskkqcdwen64/25/2024 7:30 AM EDT Treatment [facility] [address] [place] [address] Jesenia Jorge, STATION MECHANIC APPRENTICE [address] [place] [address] [facility] PTStart: 12-19-2023 End: 63-60-0145tvgfmunwem05/21/2024 7:00 AM EDT Treatment [facility] [address] [place] [address] Leo Goodwin, PT [address] [place] [address] [facility] PTStart: 12-16-2023 End: 71-09-5006ajtbngbocl59/18/2024 8:00 AM EDT Treatment [facility] [address] [place] [address] Jesenia Jorge, STATION MECHANIC APPRENTICE [address] [place] [address] [facility] PTStart: 12-14-2023 End: 69-79-6631huwguqrtza33/16/2024 7:30 AM EDT Treatment [facility] [address] [place] [address] Loe Goodwin, PT [address] [place] [address] [facility] PTStart: 12-12-2023 End: 93-47-0098Ygsezeb encounter procedureNOMS FB ORTHOPAEDICSComment on above: ArrivedStart: 12-09-2023 End: 34-91-6919jzgvznusad48/11/2024 7:30 AM EDT Treatment [facility] [address] [place] [address] Jesenia Jorge, STATION MECHANIC APPRENTICE [address] [place] [address] [facility] FB PTStart: 12-07-2023 End: 14-80-6909fnaqsnmigy96/09/2024 2:00 PM EDT Treatment [facility] [address] [place] [address] Leo Goodwin, PT [address] [place] [address] [facility] FB PTStart: 12-02-2023 End: 99-61-5108hptwhxuhdkOYEY FB PTComment on above:ArrivedStart: 11-30-2023 End: 02-23-6458oakhxkaikdAJDP FB PTComment on above:ArrivedStart: 11-28-2023 End: 03-56-3379Zfmndkl encounter procedureNOMS CWM FMComment on above:Arrived Start: 11-24-2023 End: 28-36-8690ryywdgqwvg53/26/2024 12:30 PM EDT Evaluation [facility] [address] [place] [address] Leo Goodwin, PT [address] [place] [address] Status post right rotator cuff repairNOMS FB PTComment on above:Status post right rotator cuff repairStart: 11-14-2023 End: 71-00-6954Vgytyah encounter yijjhsbaz65/16/2024 8:30 AM EDT Office Visit [facility] [address] [place] [address] May Pulido, CORN POPPER [address] [place], [place] [address] ArrivedNOWASHINGTON COUNTY [facility] ORTHOPAEDICSComment on above:ArrivedStart: 10-30-2023 Influenza vaccinationInfluenza Vaccine (#1)[facility] HealthcareStart: 09-29-2023 Hemoglobin A1c measurementDiabetes: Hemoglobin O2UKRTA HealthcareStart: 09-26-2023 End: 07-28-6849Ceubhza encounter nxxstcato39/29/2024 2:20 PM EDT Office Visit [facility] [address] [place] [address] Dana Tapia, CORN POPPER [address] [place] [address] [facility] FMStart: 07-12-2023 End: 48-81-8982Hoyrczd encounter pospmocgu06/14/2024 2:15 PM EDT Procedure Visit [facility] [address] [place] [address] Carlos Baer DPM [address] [place] [address] [facility]RYStart: 53-94-8315Frgjdzzxbb A1c measurementDiabetes: Hemoglobin H4OUZOS HealthcareStart: 04-13-2023 End: 05-95-0949Xbsfnhe encounter mcmflflov42/14/2024 2:15 PM EST Procedure Visit [facility] [address] [place] [address] Carlos Baer DPTamara [address] [place] [address] ArrivedPROVIDENCE HEALTH PODIATRYComment on above:ArrivedStart: 21-70-8601Bbkb Risk ScreeningFall Risk ScreeningProWayne Healthcare Main Campus SystemStart: 10-95-5884ITaB,Tdap and Td Vaccines (1 - Tdap)DTaP,Tdap and Td Vaccines (1 - Tdap)[facility] SystemStart: 85-80-8720Ntmwflsbgl ScreeningDepression ScreeningMedina HospitalPatient EducationDayton Osteopathic Hospital Work Phone: Renal function 1999 panel - Serum or [facility] SouthRen[facility] function 1999 panel - Serum or [facility] SouthRenal function 1999 panel - Serum or [facility] SouthXR Lumbar spine GE 4 [facility] Immunizations Immunization DateImmunizationNotesCare VygccavnAgfdocyp83-52-4808GRC, recombinant, protein subunit RSVpreF, adjuvant reconstitu, 120mcg/0.5mL, PF (Arexvy)Carlos Baer DPM Work Phone: [facility] HospitalRlkwcoyjwa75-88-1021Zewjjxdj trivalent influenza vaccine, adjuvanted, preservative freeKyle Buddy PT Work Phone: [facility] HospitalIwxqzebuku46-42-8653qwiqtaasn virus vaccine, unspecified formulationSlaavaig Anibal VALE Work Phone: Medina HospitalWonxtm14-62-0287Bxatuzjfb, High-dose Seasonal, Quadrivalent, Preservative FreeKyle Buddy PT Work Phone: [facility] HospitalLmvxrlgjeg00-18-1827myvriqeax virus vaccine, unspecified formulationMay Pulido NP Work Phone: [facility] HospitalSefmqkzumm72-37-0948hrnwea vaccine recombinant Leo Buddy PT Work Phone: [facility] HospitalGmpbpizauo07-20-1380Cwmwoixdn, High-dose Seasonal, Quadrivalent, Preservative FreeKyle Buddy PT Work Phone: [facility] HospitalQwcnxxylwx57-09-2618msoevk vaccine recombinant Leo Buddy PT Work Phone: noKindred HospitalAqxdmtowqm87-98-0062IHHUW-17 PfizerDawn Fitt Other [facility]10-03-2021Influenza, High-dose Seasonal, Quadrivalent, Preservative FreeKyle Buddy PT Work Phone: [facility] HospitalSpupiduwyu92-74-5833UFPAU-44 Vaccine Pfizer - Documentation Purposes OnlyDawn Fitt Other [facility]02-04-2021COVID-19 Vaccine Pfizer - Documentation Purposes OnlyDawn Fitt Other [facility]09-14-2020unknown vaccine or immune globulinKyle Buddy PT Work Phone: [facility] HospitalPioqqlbvqt89-50-5039ihufspasr, high dose seasonal, preservative-freeKyle Buddy PT Work Phone: [facility] HospitalDglwfmxzst56-00-7786attnyxaer, high dose seasonal, preservative-freeKyle Buddy PT Work Phone: [facility] HospitalCatedbeyye58-10-4741szjrcwfol, high dose seasonal, preservative-freeKyle Buddy PT Work Phone: [facility] HospitalVzmvltxdhn28-44-4099lfdvzehya, seasonal, injectable, preservative freeKyle Buddy PT Work Phone: [facility] HospitalHlcknltqlg43-34-1491zrjnwzredowz conjugate vaccine, 13 valentKyle Buddy PT Work Phone: [facility] HospitalVyliujpyzv05-60-1838zmwipkhev, seasonal, injectable, preservative freeKyle Buddy PT Work Phone: [facility] HospitalYlmrhoemwm64-36-5350azyhlqvpp, seasonal, injectable, preservative freeKyle Buddy PT Work Phone: [facility] HospitalTkzkpllffs65-54-3521zfbnhbkryfgf polysaccharide vaccine, 23 valentKyle Buddy PT Work Phone: [facility] Payers DatePayer CategoryPayerPolloring hospital [id number] Health InsuranceAARP Member Subscriber Plan / Payer (Effective 2022-Present) Name: Ashley Olson MemberID: [id number] Relation to Subscriber: Self Name: Ashley Olson Payer ID: Not on file Group ID: 1 Type: Not on file Address: [address] [id number] AARP [id number] 2022- [address] [place] [address] 1.2.840.402860.1.13.693.2.7.3.373378.77738-53-3966Qwotqqp Care Other (unspecified)[facility] 1.2.840.770581.1.13.424.2.7.9.868464.527.315 2012Medicare 1.2.840.926056.1.13.693.2.7.3.814569.315 [id number] 2.0.2.88577[id number] 20.0.461619.6353-03-1947 Jhnqgqr6690425 20.1.599440.3.579.2.13371-64-3297Xndmcml6520882 2.16.840.1.003728.3.579.2.37026-99-7464Dihneun7201520 2.16.840.1.409718.3.579.2.87754-25-1149Xlhwgmc9148976 2.16.840.1.343209.3.579.2.68584-12-4128Krhnntc5882610 2.16.840.1.209987.3.579.2.46276-59-9277Pavstrw7638726 2.16.840.1.541180.3.579.2.08761-71-4711Dddkfet2253711 2.16.840.1.723149.3.579.2.46272-95-0210Ntjfuui3730857 2.16.840.1.612112.3.579.2.19913-30-3175Vsrgjwx8620450 2.16.840.1.888194.3.579.2.77560-77-1296Vnztlcn75397187 2.16.840.1.954943.3.579.2.549766-54-6075Ccltvki83672697 2.16.840.1.500234.3.579.2.118084-80-0568Obvdzoj84772433 2.16.840.1.444902.3.579.2.996097-55-8833Qtphvqx00934661 2.16.840.1.446838.3.579.2.572022-86-5643Saqdhgr46486106 2.16.840.1.742562.3.579.2.912868-42-0059Zbderkl39745331 2.16.840.1.334899.3.579.2.679108-61-7610Cbpxsll84106429 2.16.840.1.049213.3.579.2.060128-43-3983Ttfugnr32950039 2.16.840.1.373408.3.579.2.909435-89-8826Axrvnws22208263 2.16.840.1.300622.3.579.2.702429-68-7511Fvltzjs80138828 2.16.840.1.166613.3.579.2.822847-78-2396Vrgpoeq49273907 2.16.840.1.292588.3.579.2.968258-11-0646Nagjykl88345369 2.16840.1.681890.3.579.2.940513-33-9860Zzuvaat2282342 2.16840.1.462356.3.579.2.915472-02-1820Mvcraar1654669 2.16.840.1.232647.3.579.2.881078-90-3741Urpewgp9047430 2.16.840.1.715332.3.579.2.900542-07-3941Wnqptca2462969 2.16.840.1.381066.3.579.2.248529-14-0658Fyrutbw3179005 2.16840.1.510104.3.579.2.212984-88-8309Dsdynvs2403971 2.16840.1.519011.3.579.2.997754-95-6717Gxdlkps5614689 2.16.840.1.221069.3.579.2.946361-14-3459Zgbtndm6448617 2.16840.1.216703.3.579.2.643505-92-1402Xcreixc0368678 2.16.840.1.666492.3.579.2.990816-85-0370Cvtcvcj5320281 2.16840.1.732949.3.579.2.196459-00-9319Aehssnx7500309 2.16.840.1.720663.3.579.2.208055-18-1599Ynjamtm4835347 2.16840.1.823182.3.579.2.285298-10-4960Vdopsme6299450 2.16840.1.779161.3.579.2.805498-06-6950Vmchwoc3945037 2.16840.1.969093.3.579.2.948517-09-4260Jrhwcui4916696 2.840.1.847510.3.579.2.420309-42-9715Ugmufak6350149 2.16840.1.998173.3.579.2.907091-37-9756Yaxknxf6482252 2.840.1.389258.3.579.2.226655-95-2275Fiibsrx4309544 2..1.528776.3.579.2.989343-64-5954Vmvbaiq3419680 2.16840.1.992760.3.579.2.683022-15-5237Mzhpoui6273030 2.16840.1.088490.3.579.2.099414-46-3190Ubmzujx6230077 2.16840.1.596671.3.579.2.499041-05-8096Mxkuqtx9712778 2.16840.1.729640.3.579.2.275166-66-2525Aysyutx0186421 2.16.840.1.976935.3.579.2.520568-11-6279Vhsiela4750919 2.16.840.1.660590.3.579.2.828503-19-9983Qdpnuhl9745559 2.16840.1.878833.3.579.2.185162-43-4616Wwskyhs2271290 2.16840.1.962526.3.579.2.559599-77-3332Suptkoi8425519 2.16840.1.545801.3.579.2.797814-76-9649Aazckdc0824955 2.840.1.780032.3.579.2.979997-66-4081Vnieaeh8384363 2.0.1.812936.3.579.2.688611-22-6956Tdlddki6751222 2.840.1.311312.3.579.2.481397-79-2873Ypstvpc6151173 2.0.1.056530.3.579.2.100381-63-8941Xzmomtd8051248 2.0.1.501625.3.579.2.537656-15-4284Viylgbl9150336 2.840.1.584573.3.579.2.314395-53-7922Czdcotd6532446 2.16840.1.104968.3.579.2.760648-15-4054Jsggiqf4464795 2.16840.1.907718.3.579.2.715160-98-6281Mfihxrq2361892 2.16840.1.484657.3.579.2.875657-20-3912Txiylju6380180 2.16.840.1.348909.3.579.2.204551-94-0085Tafcdbz5127994 2.16.840.1.139659.3.579.2.553598-55-2766Nnkidqa6421271 2.16.840.1.429868.3.579.2.404428-18-7985Bkmzmcn5353348 2.16.840.1.694764.3.579.2.003153-88-5456Gjdtkyu2634457 2.16.840.1.738359.3.579.2.979541-79-3519Ckwyucm0439863 2.16.840.1.225121.3.579.2.614299-53-2151Xvkwsrj471737272 2.16840.1.595702.3.579.2.167051-97-2658Vvdoyko356743815 2.16840.1.528695.3.579.2.034731-51-5082Vdlsypy194243778 2.16.840.1.437714.3.579.2.412097-13-3024Xkulxlf949094967 2.16840.1.181480.3.579.2.014757-53-9981Cpsgstv646622452 2.16840.1.712588.3.579.2.687888-33-6281Awrnjxm247825675 2.16.840.1.681469.3.579.2.398447-15-8819Dbwvwrt319713571 2.16840.1.344657.3.579.2.520810-78-8070Eypzdbq775808689 2.16840.1.475985.3.579.2.486474-44-5067Wctplgm086102491 2.16840.1.099901.3.579.2.427873-12-1558Esycjdq38053382 2.840.1.259685.3.579.2.694273-30-6774Hinqhwa45890673 2.840.1.841528.3.579.2.1286Medicare284441516AUnknown34422549 2.840.1.290059.3.579.2.596Vvjjznf38214135 2.840.1.093019.3.579.2.531 Social History DateTypeDetailFacilityUnknown if ever smokedNocarondelet health edPULSE Other Start: 03-28-2023 End: 28-76-3300Nwy Assigned At BirthNOCT HealthcareStart: 10-06-2022 End: 11-73-3969Ueztoxg smoking status NHISNever smoked tobaccoNOMS Healthcare Start: 10-06-2022 End: 90-78-7144Hxyqfvh use and exposureSmokeless tobacco non-userNOMS Healthcare Start: 02-18-2023 End: 98-84-4484Adepdhr intakeCurrent drinker of alcohol (finding)[facility] Start: 03-28-2023 End: 85-67-9395Bcsvcqj intakeNOMS HealthcareWithin the last year, have you been afraid of your partner or ex-partner?NoNOMS HealthcareDo you belong to any clubs or organizations such as anglican groups, unions, fraternal or athletic groups, or school groups?YesNOMS HealthcareAre you now , , , , never or living with a partner?WidowedNOMS HealthcareHow often to you have a drink containing alcohol?NeverNOMS HealthcareStart: 77-99-0827Ecp many standard drinks containing alcohol do you have on a typical day?Patient does not drinkNOMS HealthcareDo you feel stress - tense, restless, nervous, or anxious, or unable to sleep at night because yourmind is troubled all the time - these days [OSQ]Only a littleNOMS Healthcare(I/We) worried whether (my/our) food would run out before (I/we) got money to buy more.Never trueNOMS HealthcareStart: 87-26-0214Szjcqjn CommentCaffeine intake: 1-2 cups per day teaNOCT HealthcareStart: 97-69-1123Mis Assigned At BirthNot on fileNOCT HealthcareStart: 09-41-7059Uzn Assigned At BirthFeFisher-Titus Medical Centertart: 11-28-2023 End: 43-44-0849Toqvoynfr beverage intakeLifetime non-drinker (finding)NOM HealthcareStart: 27-62-2078Zhqaoq identityIdentifies as female gender (finding) [facility] HealthcareStart: 10-03-2014 End: 59-97-6533HmgTqqcox (finding)[facility] Hospitaltart: 03-21-2024 End: 22-11-6881Lylzxvuer beverage intakeCurrent non-drinker of alcohol (finding) [facility] SystemNEGATED: Highlighted rowStart: NINFHistory of tobacco use Passive smokerTexas County Memorial Hospital Medical Equipment Procedure CodeEquipment CodeEquipment Original TextEquipment IdentifierDates [id number]: 50-89-7806Gsrdzapvb Regenesorb 4.75mm Suture Nqedtw218370_ymf Start: 13-27-0430Hgxeeygex Regenesorb 4.75mm Suture Pfcmmw684758_zuhRfork: 70-68-9599Ycqwwhglf Regenesorb 4.75 Suture Rkrqfc391488_wyjGkpmy: 10-05-2023 Healicoil Knotless Regenesorb Suture Edrmlv354927_abzNttlp: 47-69-7258Ovqyhrfxx Knotless Regenesorb Suture Kapzyb055857_wwmQbruy: 88-04-1772Djga Iol Ultrasert 18.0d - [id number] - [id number]_hsaDibcb: 85-68-5863Igop Iol Ultrasert 17.5d - [id number] - [id number]_hbcTjmnj: 00-47-8825Fgypp Cassy Gonzalez By - [id number] - [id number]_heuMlslp: 85-87-6822Pqopc Trab Mcro Byps - [id number] - [id number]_izcZjixo: 26-55-5983Smshaqf Hum 36mm Cmprh Std Shldr Prlng Rvrs - [id number]()[id number](17)590991(10)[id number], 725887_imp FDAStart: 80-71-6330Xohzjztcg Augusto Cmprh 25mm Mn Shldr Tpr Adpr Rvrs Sys - [id number]()[id number](17)413599(10)[id number], 725878_imp FDAStart: 95-27-5346Uocgsqhvu Augusto 36mm Std Glenosphere Clr Cd Cmprh Versa-Dial - [id number]()[id number](17)449461(10)[id number], 725885_imp FDAStart: 71-54-6108Fpte Hum Cmprh Std Shldr Rvrs - [id number] ()[id number](17)523423(10)[id number], 725886_imp FDAStart: 89-11-9662Xejq Hum 83mm 12mm Cmprh Por Mn Shldr Rvrs Sys - [id number] ()[id number](17)401990(10)[id number], 725888_imp FDAStart: 14-54-0847Fcmyj Bn 15mm 4.75mm Lck Fx Ang Hx Hd Ti Cmprh 3.5mm Strl - [id number] ()[id number](17)379081(10)[id number], 725873_imp FDAStart: 16-32-7883Odjnx Bn 40mm 6.5mm Cntr Hx Hd Ti Cmprh 3.5mm Strl Rvrs - [id number] 725881_impStart: 66-55-3624Zuvah Bn 30mm 4.75mm Va Hx Hd Ti Cmprh 3.5mm Strl Rvrs Shldr - [id number]()[id number](17)332107(10)[id number], 725882_imp FDAStart: 20-67-0388Peegt Bn 35mm 4.75mm Va Hx Hd Ti Cmprh 3.5mm Strl Rvrs Shldr - [id number] ()[id number](17)580256(10)[id number], 725883_imp FDAStart: 56-36-4591Svwvv Bn 15mm 4.75mm Lck Fx Ang Hx Hd Ti Cmprh 3.5mm Strl - [id number] ()[id number](17)683358(10)[id number], 725884_imp FDAStart: 04-04-2024 Functional Status TlfyOpvlffvwdiDnqswfQegartqy02-87-6920Ptr difficult have these problems made it for you to do your work, take care of things at home, or get along with other people?Not difficult at all 05/07/2024 4:33 PM EDT Heidy El MA Not difficult at allTexas County Memorial HospitalMbaatcdjqy98-69-7003Psgvfvb Health Questionnaire 2 item (PHQ-2) [Reported][facility] HospitalLyjqiegxtz25-74-6191Ywbkd score [AUDIT-C]0 03/28/2023 5:25 PM EST Heidy El MANOMS Jjkbomtnlq76-98-6648Cmqikyfth depression scale (GDS).short version [facility] HealthJpkrebeafd56-16-3495Ifrvhmm Health Questionnaire 2 item (PHQ-2) [Reported][facility] Clinical Notes 12-05-2020 to 11-08-2024 Note Date & VfzzZelbVszmvbch27-63-6241 History of Present illness Narrative* Daniel Wolf MD - 11/08/2024 2:50 PM EDT 11/08/2024 Subjective: This is a 79-year-old female with history of right reverse total shoulder arthroplasty on 04/04/2024. States earlier this week she is getting ready for bed she looks in the mirror noted some bruising and swelling in the anterior and lateral aspect of the right shoulder. Denies any injury.States he has some soreness associated with it. [...] mg total) by mouth in the morning. djjpglzl-hqxe-OE-calcium &mins (THERAGRAN-M) 9 mg iron-400 mcg tablet [...] 10/05/2023 Performed by Jeffrey Schilling DO at [facility] BLEPHAROPLASTY OPHTH Bilateral 04/03/2019 Performed by Glenna Egan MD at [facility] BREAST BIOPSY Right 06/12/1991 BURSECTOMY Right right hip COLONOSCOPY N/A 02/18/2022 Performed by Paco Ghosh DO at [facility] COLONOSCOPY N/A 12/24/2016 Performed by Kai Blackwell MD at [facility] HYSTERECTOMY Ovarian CA JOINT REPLACEMENT Bilateral knee replacement OVARY SURGERY ovarian cancer PHACO KELMAN I IMPLANT INTRAOCULAR LENS I-STENT Left 04/18/2018 Performed by Glenna Egan MD at [facility] PHACO KELMAN I IMPLANT INTRAOCULAR LENS I-STENT Right 04/04/2018 Performed by Glenna Egan MD at [facility] REVERSE ARTHROPLASTY TOTAL SHOULDER Right 04/04/2024 Performed by Daniel Wolf MD at [facility] UMBILICAL HERNIA REPAIR Past Medical History: Diagnosis Date Arthritis Back pain Cataract Chronic kidney disease stage 3 Deep vein thrombosis ([facility]) Diabetes mellitus ([facility]) Diabetes mellitus type 2, controlled (CMS-HCC) Fibromyalgia [...] incision is fully healed. She can actively forwardflex to around 90 . She has significant [...] intact. At this point I am going totreat this like a muscle strain/possible partial tear. 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 No fall. Was seen by PCP 11/06/2024. Please advise * Telephone Encounter - LORENA Romero - 11/07/2024 9:24 AM EDT Please make her an appointment thanks * Telephone Encounter - Andrea Dubose - 11/07/2024 9:24 AM EDT Called patient and made appointment documented in this encounterUniversity [facility]als [facility] CenterRecensus [id number] Telephone encounter Note* Telephone Encounter - Andrea Dubose - 11/07/2024 9:24 AM EDT 04/04/2024 right reverse total shoulder arthroplasty Patient called to state that her shoulder is black and blue, always sore. No fall. Was seen by PCP 11/06/2024. Please advise [id number] Telephone encounter Note* Telephone Encounter - LORENA Romero - 11/07/2024 9:24 AM EDT Please make her an appointment thanks [facility] Work Phone: 1(106) 158-764409-10-2025 Telephone encounter Note* Telephone Encounter - Andrea Dubose - 11/07/2024 9:24 AM EDT Called patient and [facility] appointment [facility]* Diagnosis Onset Date Resolution Status Admit Date DOALYS (generalized anxiety disorder) acuteSept2024 1:42pmHypertensionacuteSept2024 1:42pm Obesity, Class II, BMI 35-39.9acuteSeptember 2024 1:42pmRight shoulder pain acuteSept2024 1:42pmLumbar spinal stenosisacuteSept2024 4:25pm [facility] Work Phone: 1(914) 662-112008-19-2025 History of Present illness Narrative* Carlos Baer, DPM - 10/16/2024 2:15 PM EDT Images from the original note [...] (Vitamin D-3) 50 MCG (2000 UT) tablet, , Disp: , Rfl: diphenhydrAMINE-acetaminophen [...] Take beforemeals., Disp: 90 capsule, Rfl: 1 Allergies Metformin, [...] understanding. Carlos Baer DPM documented in this encounterTexas County [facility] [id number] Instructions* Patient Instructions* Carlos Baer DPM - 10/16/2024 2:15 PM EDT As noted [place] [id number] Evaluation note* Diagnosis Onset Date Resolution Status Admit Date Dietary counseling and surveillance acuteJuly 2024 1:57pmHyperlipidemiaacuteJuly 2024 1:57pmHypertension acuteJuly 2024 1:57pmObesity, Class II, BMI 35-39.9acuteJuly 2024 1:57pmType 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acuteJuly 2024 1:57pmGAD (generalized anxiety disorder)acuteSeptember 2024 1:42pmHypertensionacuteSeptember 2024 1:42pmObesity, Class II, BMI 35-39.9 acuteSeptember 2024 1:42pm [facility] Work Phone: 1(682) 501-400207-08-2025 Evaluation note* Diagnosis Onset Date Resolution Status Admit Date Dietary counseling and surveillance acuteJuly 2024 1:57pmHyperlipidemiaacuteJuly 2024 1:57pmHypertension acuteJuly 2024 1:57pmObesity, Class II, BMI 35-39.9acuteJuly 2024 1:57pmType 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acuteJuly 2024 1:57pmGAD (generalized anxiety disorder)acuteSeptember 2024 1:42pmHypertensionacuteSeptember 2024 1:42pmObesity, Class II, BMI 35-39.9 acuteSeptember 2024 1:42pmRight shoulder painacuteSeptember 2024 1:42pmLumbar spinal stenosisacuteSeptember 2024 4:25pm [facility] Work Phone: 1(103) 462-342406-25-2025 History of Present illness Narrative* Dana Tapia NP - 08/22/2024 1:20 PM EDT Images from [...] kidney disease) stage 3, GFR 30-59 ml/min ([facility]) COVID-19 virus detected DDD (degenerative disc disease), [...] SURGERY Right Hip bursectomy. Dr. Holley HYSTERECTOMY 1995 with ovaries due to cancer [facility] SURGERY Bilateral 2015 Dr. Mccann OTHER SURGICAL HISTORY 10/03/2018 SK [...] index (BMI) of36.0 to 36.9 in adult ([facility]) - Primary Discussed with patient their BMI [...] (BMI) of 36.0 to 36.9 in adult ([facility]) Discussed with patient their BMI (actual, verses recommended). We have also discussed lifestyle modifications: attempts to perform physical activity as chronic conditions allow, also to monitor dietary intake: increasing protein/fruits/veggies and lowering carb intake (unless contraindicated). Limit sodas, juices, and sugary drinks documented in this [facility]06-25-2025 Instructions* Patient Instructions* Dana Tapia NP - 08/22/2024 1:20 PM EDT Continue all meds, no dose changes documented in this [facility]-19-2025 History of Present illness Narrative* Carlos Baer [...] understanding. Carlos Baer DPM documented in this [facility]05-19-2025 Instructions* Patient Instructions* Carlos Baer DPM - 07/16/2024 2:30 PM EDT As noted documented in this [facility]05-15-2025 History of Present illness Narrative* Dana Tapia NP - 07/12/2024 2:18 PM EDTAssociated Problem(s): ODALYS (generalized anxiety disorder) ([facility]) Increase dose on duloxetine * Dana Tapia NP - 07/12/2024 2:17 PM EDTAssociated Problem(s): Fibromyalgia Increase dose on duloxetine * HEIDY EL - 07/12/2024 1:40 PM EDT Pt [...] from the original note were not included. sAhley Olson is a 79 y.o. female presents [...] Medications DULoxetine (Cymbalta) [address] capsule Hyperlipidemia ([facility]) Relevant Medications atorvastatin (Lipitor) 20 MG tablet Class 2 severe obesity due to excess calories with serious comorbidity and body mass index (BMI) of36.0 to 36.9 in adult ([facility]) - Primary Discussed with patient their BMI (actual, verses recommended). We have also discussed lifestyle modifications: attempts to perform physical activity as chronic conditions allow, also to monitor dietary intake: increasing protein/fruits/veggies and lowering carb intake (unless contraindicated). Limit sodas, juices, and sugary drinks Age-related osteoporosis without current pathological fracture ([facility]) Relevant Medications alendronate (Fosamax) 70 MG tablet ODALYS (generalized anxiety disorder) ([facility]) Increase dose on duloxetine Relevant Medications DULoxetine (Cymbalta) [address] capsule Back pain of lumbar region with sciatica Last appt ordered PT could not go Going to see chiropractor Other Visit Diagnoses Polyneuropathy in diseases classified elsewhere ([facility]) Relevant Medications DULoxetine (Cymbalta) [address] [...] (BMI) of 36.0 to 36.9 in adult ([facility]) Discussed with patient their BMI (actual, verses recommended). We have also discussed lifestyle modifications: attempts to perform physical activity as chronic conditions allow, also to monitor dietary intake: increasing protein/fruits/veggies and lowering carb intake (unless contraindicated). Limit sodas, juices, and sugary drinks documented in this [facility]05-15-2025 Instructions* Patient Instructions* Dana Tapia NP - 07/12/2024 1:40 PM EDT Increase duloxetine to 60mg daily (if you have 30mg ones left at home you may take 2 pills to [id number]) documented in this [facility]05-14-2025 Miscellaneous Notes* Telephone Encounter - Marlyn Whitlock - 07/11/2024 2:[address] Reynoso patient has a dentist appointment would like her premeds Pharmacy confirmed [facility] * Telephone Encounter - LORENA Romero - 07/11/2024 2:29 PM EDT Prescription for amoxicillin sent to her pharmacy. * Telephone Encounter - Marlyn Whitlock - 07/11/2024 2:29 PM EDT Left message VM prescription called in [facility] Telephone encounter Note* Telephone Encounter - Marlynjason Whitlock - 07/11/2024 2:[address] Reynoso patient has a dentist appointment would like her premeds Pharmacy confirmed [facility]14[facility] Telephone encounter Note* Telephone Encounter - LORENA Romero - 07/11/2024 2:29 PM EDT Prescription for amoxicillin sent to her pharmacy. [facility]05-14-2025 Telephone encounter Note* Telephone Encounter - Marlynjason Whitlock - 07/11/2024 2:29 PM EDT Left message VM prescription called in [facility]05-01[facility] History of Present illness Narrative* Daniel Wolf [...] kidney disease stage 3 Deep vein thrombosis ([facility]) Diabetes mellitus ([facility]) Diabetes mellitus type 2, controlled ([facility]) Fibromyalgia GERD (gastroesophageal reflux disease) Head injury recent fall/ bump on forehead HL (hearing loss) bilat hearing aids Hyperlipidemia Hypertension Infectious viral hepatitis as a child. patient uncertain of type Obesity Ovarian cancer ([facility]) 1994 PONV (postoperative nausea and vomiting) Rotator cuff tear here for preop w/u R scope Visual impairment Past Surgical History: Procedure Laterality Date ARTHROSCOPIC REPAIR ROTATOR CUFF SHOULDER Right 10/05/2023 Performed by Jeffrey Schilling DO at [facility] BLEPHAROPLASTY OPHTH Bilateral 04/03/2019 Performed by Glenna Egan MD at [facility] BREAST BIOPSY Right 06/12/1991 BURSECTOMY Right right hip COLONOSCOPY N/A 02/18/2022 Performed by Paco Ghosh DO at [facility] COLONOSCOPY N/A 12/24/2016 Performed by Kai Blackwell MD at [facility] HYSTERECTOMY Ovarian CA JOINT REPLACEMENT Bilateral knee replacement OVARY SURGERY ovarian cancer PHACO KELMAN I IMPLANT INTRAOCULAR LENS I-STENT Left 04/18/2018 Performed by Glenna Egan MD at [facility] PHACO KELMAN I IMPLANT INTRAOCULAR LENS I-STENT Right 04/04/2018 Performed by Glenna Egan MD at [facility] REVERSE ARTHROPLASTY TOTAL SHOULDER Right 04/04/2024 Performed by Daniel Wolf MD at [facility] UMBILICAL HERNIA REPAIR Current Outpatient [...] mg total) by mouth in the morning. qghsccfv-yxfp-KI-calcium &mins (THERAGRAN-M) 9 mg iron-400 mcg tablet [...] of infection. Intact axillary nerve function. Forward abduction to 45 external rotation 35 internal rotation SI joint. Distally neurovascular intact IMAGING/LABS: No new imaging obtained today ASSESSMENT: Status post right reverse total shoulder arthroplasty 04/04/2024 PLAN: Patient is making slow but steady progress on her right shoulder. She was instructed to continue with rzxxd-iq-jokdez exercises and limitation of any heavy lifting. She will follow up in 2 months to evaluate her progress. DANIEL WOLF MD documented in this [facility]04-[facility] Evaluation note* Diagnosis Onset Date Resolution Status Admit Date CKD (chronic kidney disease) stage 3, GF R 30-59 ml/min acuteApril 2024 1:54pmHypertensive chronic kidney disease with stage 1 through stage 4 chronic kiacuteApril 2024 1:54pmHypomagnesemiaacuteApril 2024 1:54pmIron deficiencyacuteApril 2024 1:54pmSecondary hyperparathyroidismacuteApril 2024 1:54pmType 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acuteApril 2024 1:54pmVitamin D deficiency acuteApril 2024 1:54pmDietary counseling and surveillanceacuteJuly 2024 1:57pmHyperlipidemiaacuteJuly 2024 1:57pmHypertensionacuteJuly 2024 1:57pmObesity, Class II, BMI 35-39.9acuteJuly 2024 1:57pmType 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acuteJuly 2024 1:57pm [facility] Work Phone: [phone]) 720-166504-10-2025 History of Present illness Narrative* Daniel Wolf [...] kidney disease stage 3 Deep vein thrombosis ([facility]) Diabetes mellitus ([facility]) Diabetes mellitus type 2, controlled ([facility]) Fibromyalgia GERD (gastroesophageal reflux disease) Head injury recent fall/ bump on forehead HL (hearing loss) bilat hearing aids Hyperlipidemia Hypertension Infectious viral hepatitis as a child. patient uncertain of type Obesity Ovarian cancer ([facility]) 1994 PONV (postoperative nausea and vomiting) Rotator cuff tear here for preop w/u R scope Visual impairment Past Surgical History: Procedure Laterality Date ARTHROSCOPIC REPAIR ROTATOR CUFF SHOULDER Right 10/05/2023 Performed by Jeffrey Schilling DO at [facility] BLEPHAROPLASTY OPHTH Bilateral 04/03/2019 Performed by Glenna Egan MD at [facility] BREAST BIOPSY Right 06/12/1991 BURSECTOMY Right right hip COLONOSCOPY N/A 02/18/2022 Performed by Paco Ghosh DO at [facility] COLONOSCOPY N/A 12/24/2016 Performed by Kai Blackwell MD at [facility] HYSTERECTOMY Ovarian CA JOINT REPLACEMENT Bilateral knee replacement OVARY SURGERY ovarian cancer PHACO KELMAN I IMPLANT INTRAOCULAR LENS I-STENT Left 04/18/2018 Performed by Glenna Egan MD at [facility] PHACO KELMAN I IMPLANT INTRAOCULAR LENS I-STENT Right 04/04/2018 Performed by Glenna Egan MD at [facility] REVERSE ARTHROPLASTY TOTAL SHOULDER Right 04/04/2024 Performed by Daniel Wolf MD at [facility] UMBILICAL HERNIA REPAIR Current Outpatient [...] mg total) by mouth in the morning. agqojutz-vsor-IG-calcium &mins (THERAGRAN-M) 9 mg iron-400 mcg tablet [...] 04/04/2024 PLAN: Patient will continue with gentle ssfpt-lt-jqlldr exercises and hold on therapy for week. She was written for refill on her pain medicine. She will follow up in 2 weeks to evaluate her progress. DANIEL WOLF MD documented in this [facility]Med[facility]04-02-2025 History of Present illness Narrative* Dana Tapia NP - 05/30/2024 3:17 PM EDTAssociated Problem(s): Back pain of lumbar region with sciatica Not going to change NSAID, no muscle relaxer d/t polypharmacy Will order PT Fu in 4-6 weeks * HEIDY EL - 05/30/2024 2:40 PM EDT Sciatica [...] breast Age-related osteoporosis without current pathological fracture ([facility]) 02/18/2023 Allergic rhinitis, seasonal Arthritis Bulging lumbar [...] index (BMI) of36.0 to 36.9 in adult ([facility]) - Primary Discussed with patient their BMI (actual, verses recommended). We have also discussed lifestyle modifications: attempts to perform physical activity as chronic conditions allow, also to monitor dietary intake: increasing protein/fruits/veggies and lowering carb intake (unless contraindicated). Limit sodas, juices, and sugary drinks Essential (primary) hypertension ([facility]) Relevant Medications amLODIPine (Norvasc) 5 MG tablet [...] (BMI) of 36.0 to 36.9 in adult ([facility]) Discussed with patient their BMI (actual, verses recommended). We have also discussed lifestyle modifications: attempts to perform physical activity as chronic conditions allow, also to monitor dietary intake: increasing protein/fruits/veggies and lowering carb intake (unless contraindicated). Limit sodas, juices, and sugary drinks documented in this encounterTexas County Memorial [id number] Instructions* Patient Instructions* Dana Tapia NP - 05/30/2024 2:40 PM EDT PT documented in this encounterTexas County Memorial [id number] History of Present illness Narrative* Daniel Wolf [...] 10/05/2023 Performed by Jeffrey Schilling DO at [facility] BLEPHAROPLASTY OPHTH Bilateral 04/03/2019 Performed by Glenna Egan MD at [facility] BREAST BIOPSY Right 06/12/1991 BURSECTOMY Right right hip COLONOSCOPY N/A 02/18/2022 Performed by Paco Ghosh DO at [facility] COLONOSCOPY N/A 12/24/2016 Performed by Kai Blackwell MD at [facility] HYSTERECTOMY Ovarian CA JOINT REPLACEMENT Bilateral knee replacement OVARY SURGERY ovarian cancer PHACO KELMAN I IMPLANT INTRAOCULAR LENS I-STENT Left 04/18/2018 Performed by Glenna Egan MD at [facility] PHACO KELMAN I IMPLANT INTRAOCULAR LENS I-STENT Right 04/04/2018 Performed by Glenna Egan MD at [facility] REVERSE ARTHROPLASTY TOTAL SHOULDER Right 04/04/2024 Performed by Daniel Wolf MD at [facility] UMBILICAL HERNIA REPAIR Current Outpatient [...] mg total) by mouth in the morning. kvnthjgd-nxve-DG-calcium &mins (THERAGRAN-M) 9 mg iron-400 mcg tablet [...] progress. DANIEL WOLF MD documented in this encounterMed[facility] Hospital03-11-2025 History of Present illness Narrative* Leo [...] sup Total Time: 45 min total Subjective Ashleylinda Koehlerlain 79 y.o. female presents to physical therapy [...] reported. Continue as tolerated documented in this encounterTexas County Memorial [id number] History of Present illness Narrative* Dana Tapia NP - 05/07/2024 4:30 PM EDT Images from [...] breast Age-related osteoporosis without current pathological fracture ([facility]) 02/18/2023 Allergic rhinitis, seasonal Arthritis Bulging lumbar disc Chronic pain CKD (chronic kidney disease) stage 3, GFR 30-59 ml/min ([facility]) (CMS/HCC) COVID-19 virus detected DDD (degenerative disc [...] SURGERY Right Hip bursectomy. Dr. Holley HYSTERECTOMY 1995 with ovaries due to cancer KNEE SURGERY Bilateral 2015 Dr. Mccann OTHER SURGICAL HISTORY 10/03/2018 SK [...] omparzole Close monitor of renal function Hyperlipidemia ([facility]) On statin therapy Check labs yearly and prn dose changes Class 2 severe obesity due to excess calories with serious comorbidity and body mass index (BMI) of36.0 to 36.9 in adult ([facility]) Discussed with patient their BMI (actual, verses recommended). We have also discussed lifestyle modifications: attempts to perform physical activity as chronic conditions allow, also to monitor dietary intake: increasing protein/fruits/veggies and lowering carb intake (unless contraindicated). Limit sodas, juices, and sugary drinks Age-related osteoporosis without current pathological fracture ([facility]) Dexa: 02/19/23 Current med: deon Encounter for subsequent annual wellness visit (AWV) in Medicare patient - Primary Reviewed Ht/Wt/BMI Recommend eye exam yearly Recommend dental exams twice a year Balance work/leisure activities Exercises is recommended most days of the week (appropriate as chronic conditions allow) Follow up yearly and prn Type 2 diabetes mellitus without complication, without long-term current use of insulin ([facility]) Check blood sugars daily, notify if <70 [...] kidney disease, or unspecified chronic kidney disease ([facility]) Continue with nephrology Recommend adequate bp and DM control as well Avoid nephrotoxic drugs IF possible, if taking close monitoring of risk/benefits Essential (primary) hypertension ([facility]) Please check blood pressure daily and record DASH diet Limit caffeine Take medication as directed Contact office if chest pain, pressure, dizziness, shortness of breath, swelling legs Recommend slow position changes Current meds: losartan, amlodipine and asa Type 2 diabetes mellitus with diabetic neuropathy, unspecified ([facility]) Continue with glucose control Takes gabapentin and [...] - 05/07/2024 7:14 AM EDTAssociated Problem(s): Hyperlipidemia ([facility]) On statin therapy Check labs yearly and prn dose changes * Dana Tapia NP - 05/07/2024 7:13 AM EDTAssociated Problem(s): Type 2 diabetes mellitus without complication, without long-term current useof insulin ([facility]) Check blood sugars daily, notify if <70 [...] (BMI) of 36.0 to 36.9 in adult ([facility]) Discussed with patient their BMI (actual, verses [...] Problem(s): Age-related osteoporosis without current pathological fracture ([facility]) Dexa: 02/19/23 Current med: fosamax * Dana [...] kidney disease, or unspecified chronic kidney disease ([facility]) Continue with nephrology Recommend adequate bp and [...] Takes gabapentin and duloxetine documented in this encounterTexas County Memorial [id number] History of Present illness Narrative* Leo Goodwin, PT - 04/23/2024 12:30 PM EST Images from the original note were not included. Physical Therapy Physical Therapy Evaluation Visit Patient Name: Ashley Olson Today's Date: 04/23/2024 Encounter Diagnoses Name Primary? Acute pain of right shoulder Yes Status post reverse total arthroplasty of right shoulder Visit number: 1 Subjective Ashley Koehlerlain 79 y.o. female presents to physical therapy [...] Please sign below. Date: documented in this encounterTexas County Memorial [id number] History of Present illness Narrative* Daniel Wolf [...] mg total) by mouth in the morning. utnnvqah-xbsf-HX-calcium &mins (THERAGRAN-M) 9 mg iron-400 mcg tablet [...] 10/05/2023 Performed by Jeffrey Schilling DO at [facility] BLEPHAROPLASTY OPHTH Bilateral 04/03/2019 Performed by Glenna Egan MD at [facility] BREAST BIOPSY Right 06/12/1991 BURSECTOMY Right right hip COLONOSCOPY N/A 02/18/2022 Performed by Paco Ghosh DO at [facility] COLONOSCOPY N/A 12/24/2016 Performed by Kai Blackwell MD at [facility] HYSTERECTOMY Ovarian CA JOINT REPLACEMENT Bilateral knee replacement OVARY SURGERY ovarian cancer PHACO KELMAN I IMPLANT INTRAOCULAR LENS I-STENT Left 04/18/2018 Performed by Glenna Egan MD at [facility] PHACO KELMAN I IMPLANT INTRAOCULAR LENS I-STENT Right 04/04/2018 Performed by Glenna Egan MD at [facility] REVERSE ARTHROPLASTY TOTAL SHOULDER Right 04/04/2024 Performed by Daniel Wolf MD at [facility] UMBILICAL HERNIA REPAIR Past Medical History: Diagnosis Date Arthritis Back pain Cataract Chronic kidney disease stage 3 Deep vein thrombosis (CMS-HCC) Diabetes mellitus ([facility]) Diabetes mellitus type 2, controlled (CMS-HCC) Fibromyalgia [...] physical therapy. 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 White or female, presents to [facility] for a pre-surgical H&P for REVERSE ARTHROPLASTY [...] 3 Deep vein thrombosis (CMS-HCC) Diabetes mellitus ([facility]) Diabetes mellitus type 2, controlled ([facility]) Fibromyalgia GERD (gastroesophageal reflux disease) Head injury recent fall/ bump on forehead HL (hearing loss) bilat hearing aids Hyperlipidemia Hypertension Infectious viral hepatitis as a child. patient uncertain of type Obesity Ovarian cancer ([facility]) 1994 PONV (postoperative nausea and vomiting) Rotator cuff tear here for preop w/u R scope Visual impairment PAST SURGICAL HISTORY: Past Surgical History: Procedure Laterality Date ARTHROSCOPIC REPAIR ROTATOR CUFF SHOULDER Right 10/05/2023 Performed by Jeffrey Schilling DO at [facility] BLEPHAROPLASTY OPHTH Bilateral 04/03/2019 Performed by Glenna Egan MD at [facility] BREAST BIOPSY Right 06/12/1991 BURSECTOMY Right right hip COLONOSCOPY N/A 02/18/2022 Performed by Paco Ghosh DO at [facility] COLONOSCOPY N/A 12/24/2016 Performed by Kai Blackwell MD at [facility] HYSTERECTOMY Ovarian CA JOINT REPLACEMENT Bilateral knee replacement OVARY SURGERY ovarian cancer PHACO KELMAN I IMPLANT INTRAOCULAR LENS I-STENT Left 04/18/2018 Performed by Glenna Egan MD at [facility] PHACO KELMAN I IMPLANT INTRAOCULAR LENS I-STENT Right 04/04/2018 Performed by Glenna Egan MD at [facility] UMBILICAL HERNIA REPAIR FAMILY HISTORY: Family History [...] mouth in the morning., Disp: , Rfl: twwphdkh-jgwy-KQ-calcium &mins (THERAGRAN-M) 9 mg iron-400 mcg tablet, [...] the most recent lab values available in [facility] at the time ofthe office visit and additional labs may have been drawn since that time. 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 White or female, presents to [facility] for a pre-surgical H&P for REVERSE ARTHROPLASTY [...] kidney disease stage 3 Deep vein thrombosis ([facility]) Diabetes mellitus ([facility]) Diabetes mellitus type 2, controlled ([facility]) Fibromyalgia GERD (gastroesophageal reflux disease) Head injury recent fall/ bump on forehead HL (hearing loss) bilat hearing aids Hyperlipidemia Hypertension Infectious viral hepatitis as a child. patient uncertain of type Obesity Ovarian cancer ([facility]) 1994 PONV (postoperative nausea and vomiting) Rotator cuff tear here for preop w/u R scope Visual impairment PAST SURGICAL HISTORY: Past Surgical History: Procedure Laterality Date ARTHROSCOPIC REPAIR ROTATOR CUFF SHOULDER Right 10/05/2023 Performed by Jeffrey Schilling DO at [facility] BLEPHAROPLASTY OPHTH Bilateral 04/03/2019 Performed by Glenna Egan MD at [facility] BREAST BIOPSY Right 06/12/1991 BURSECTOMY Right right hip COLONOSCOPY N/A 02/18/2022 Performed by Paco Ghosh DO at [facility] COLONOSCOPY N/A 12/24/2016 Performed by Kai Blackwell MD at [facility] HYSTERECTOMY Ovarian CA JOINT REPLACEMENT Bilateral knee replacement OVARY SURGERY ovarian cancer PHACO KELMAN I IMPLANT INTRAOCULAR LENS I-STENT Left 04/18/2018 Performed by Glenna Egan MD at [facility] PHACO KELMAN I IMPLANT INTRAOCULAR LENS I-STENT Right 04/04/2018 Performed by Glenna Egan MD at [facility] UMBILICAL HERNIA REPAIR FAMILY HISTORY: Family History [...] mouth in the morning., Disp: , Rfl: nyapmhqi-cmla-WP-calcium &mins (THERAGRAN-M) 9 mg iron-400 mcg tablet, [...] the most recent lab values available in [facility] at the time ofthe office visit and additional labs may have been drawn since that time. ASSESSMENT / DIAGNOSIS: Pre-Op Diagnosis Codes: * Rotator cuff arthropathy of right shoulder [M12.811] PLAN: Ashley Olson is scheduled for REVERSE ARTHROPLASTY TOTAL SHOULDER RIGHT with Daniel Wolf MD on 04/04/24 LORENA Contreras 03/21/24 1436 documented in this encounterUniversity Hospitals Parma Medical CenterRecensus [id number] Instructions* Patient Instructions* Michell Summers RN - 03/21/2024 1:45 PM EST SURGERY DATE: 04/04/2024 ARRIVAL TIME: 0700am TOTAL KNEE/ HIP/ SHOULDER [facility]: Entrance # 6 Outpatient Surgery Center next to the Emergency Center. Bring a photo ID and your insurance card with you the day of surgery. If you have a Living Will / Durable Power of Employment Educational Coord for Health Care which is not on file, please bring a copy with you the day of surgery. Please wash (tub bath or shower) NIGHT BEFORE surgery. Follow CHG WIPE Instructions. CHG WIPES and written instructions given. DO NOT apply deodorant, powder, lotion, aftershave, perfume, make-up, nail israeli. HOLD ASPIRIN and ASPIRIN PRODUCTS for 7 days prior to surgery. IF you have been prescribed ASPIRIN by your Aircraft Instrument Mechanic or primary care physician, CONTACT Aircraft Instrument Mechanic or physician about holding aspirin for surgery. HOLD NSAIDs - Ibuprofen, Motrin, Aleve, Celebrex, mobic, meloxicam, etc. for 3 days prior to surgery. You may use Tylenol. HOLD vitamins, minerals, herbal supplements, and Holistic supplements for 7 days prior to surgery. Examples: Ephedra, garlic, gingko, ginseng, fish oil, (Lovaza, Vascepa), Kava, Vitamin E, Saw [place], [place]'s Wort, [place], Vitamin E). (exceptions - continue [...] an anesthesia consent form. documented in this encounterUniversity Hospitals Parma Medical CenterAsesorías Digitales ([employer]) [facility] [id number] History of Present illness Narrative* Dana Tapia, CHENTE - 03/19/2024 3:20 PM ESTAssociated Problem(s): Pre-operative [...] without complication, without long-term current useof insulin ([facility]) Check blood sugars daily, notify if <70 [...] index (BMI) of36.0 to 36.9 in adult ([facility]) - Primary Discussed with patient their BMI (actual, verses recommended). We have also discussed lifestyle modifications: attempts to perform physical activity as chronic conditions allow, also to monitor dietary intake: increasing protein/fruits/veggies and lowering carb intake (unless contraindicated). Limit sodas, juices, and sugary drinks. Age-related osteoporosis without current pathological fracture ([facility]) Relevant Medications alendronate (Fosamax) 70 MG tablet Type 2 diabetes mellitus without complication, without long-term current use of insulin ([facility]) Check blood sugars daily, notify if <70 [...] 5.5% 03/06/24 Dyllan Mapus Essential (primary) hypertension (CMS/HCC) Please check blood [...] juices, and sugary drinks. documented in this [facility]01-20-2025 Instructions* Patient Instructions* Dana Tapia NP - 03/19/2024 2:20 PM EST Surgical clearance fu in 6 weeks for her AWV documented in this [facility]01-06-2025 History of Present illness Narrative* Dana Tapia [...] keep DM and HTN at goal * HEIDY EL - 03/05/2024 2:00 PM EST Headaches [...] breast Age-related osteoporosis without current pathological fracture ([facility]/HCC) 02/18/2023 Allergic rhinitis, seasonal Arthritis Bulging lumbar disc Chronic pain CKD (chronic kidney disease) stage 3, GFR 30-59 ml/min ([facility]) (CMS/HCC) COVID-19 virus detected DDD (degenerative disc [...] to cancer KNEE SURGERY Bilateral 2015 Dr. Mccann OTHER SURGICAL HISTORY 10/03/2018 SK Removal ROTATOR CUFF REPAIR Right 10/05/2023 Dr Tonie TONSILLECTOMY and adenoidectomy TOTAL KNEE ARTHROPLASTY Bilateral [...] index (BMI) of36.0 to 36.9 in adult ([facility]) Discussed with patient their BMI (actual, verses recommended). We have also discussed lifestyle modifications: attempts to perform physical activity as chronic conditions allow, also to monitor dietary intake: increasing protein/fruits/veggies and lowering carb intake (unless contraindicated). Limit sodas, juices, and sugary drinks. Type 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 ([facility]) Follows with nephrology Continue to keep DM and HTN at goal Hypertensive chronic kidney disease with stage 1 through stage 4 chronic kidney disease, or unspecified chronic kidney disease ([facility]) Continue with nephrology Recommend adequate bp and DM control as well Avoid nephrotoxic drugs IF possible, if taking close monitoring of risk/benefits Essential (primary) hypertension ([facility]) Please check blood pressure daily and record DASH diet Limit caffeine Take medication as directed Contact office if chest pain, pressure, dizziness, shortness of breath, swelling legs Recommend slow position changes Current meds: losartan, amlodipine and asa Malignant neoplasm of unspecified ovary ([facility]) Hysterectomy in the past Hematoma of frontal [...] RESOLVED: Chronic kidney disease, stage 3a (HCC) ([facility]) Type 2 diabetes mellitus with diabetic cataract ([facility]) Type 2 diabetes mellitus with diabetic neuropathy, unspecified ([facility]) Continue with glucose control Takes gabapentin and duloxetine RESOLVED: Morbid (severe) obesity due to excess calories ([facility]) Body mass index (BMI) 35.0-35.9, adult Blurry [...] this time * Dana Tapia NP - 03/05/2024 7:27 [...] 7:26 AM ESTAssociated Problem(s): Essential (primary) hypertension (CMS/HCC) Please [...] Takes gabapentin and duloxetine documented in this [facility]01-06-2025 Instructions* Patient Instructions* Dana Tapia NP - 03/05/2024 2:00 PM EST Continue with ice to affected area, you can also apply neosporin to this as well documented in this [facility]12-30-2024 History of Present illness Narrative* Dana Tapia NP - 02/27/2024 8:42 PM ESTAssociated Problem(s): Essential (primary) hypertension (CMS/HCC) Stable today * Dana Tapia NP - 02/27/2024 8:42 PM ESTAssociated Problem(s): Class 2 severe obesity due to excess calories with serious comorbidity and body mass index (BMI) of 36.0 to 36.9 in adult ([facility]) Discussed with patient their BMI (actual, verses [...] stiking face no LOC, was seen in [place] [facility] on 02/20/24: CT headand cervical spine [...] symptoms at this time documented in this encounterTexas County Memorial [id number] History of Present illness Narrative* Dana Tapia [...] (BMI) of 36.0 to 36.9 in adult ([facility]) Discussed with patient their BMI (actual, verses recommended). We have also discussed lifestyle modifications: attempts to perform physical activity as chronic conditions allow, also to monitor dietary intake: increasing protein/fruits/veggies and lowering carb intake (unless contraindicated). Limit sodas, juices, and sugary drinks. Also discussed oral medications that can be utilized for weight loss, as well as surgical options for weight loss. * HEIDY EL - 02/06/2024 4:00 PM EST Pt has had symptoms that started Tuesday night with a sore throat, drainage, coughing, [...] (Augmentin) 875-125 MG tablet documented in this [facility]12-09-2024 Instructions* Patient Instructions* Dana Tapia NP - 02/06/2024 4:00 PM EST Sinus infection: cool compress to face , antibiotic, fluids, rest Go back to pharmacy and ask for sinus meds for someone with high blood pressure Follow up if not better documented in this [facility]-18-2024 History of Present illness Narrative* Carlos Baer [...] (1999) tablet, Vitamin D3, Disp: , Rfl: diphenhydrAMINE-acetaminophen [...] understanding. Carlos Baer DPM documented in this encounterTexas County Memorial [id number] History of Present illness Narrative* Dana Tapia NP - 01/11/2024 2:53 PM ESTAssociated Problem(s): Primary osteoarthritis involving multiple joints Continue meloxicam, needs handicapped placard * Dana Tapia NP - 01/11/2024 2:51 PM ESTAssociated Problem(s): ODALYS (generalized anxiety disorder) (CMS/HCC) Not [...] (CMS/HCC) Continue with deangelo and duloxetine * HEIDY EL - 01/11/2024 2:20 PM EST Pt found out yesterday she is going to have to get her shoulder replaced. Pt has been referred to dr scott for February. She did reach out to another dr, dr wolf at [facility] and she did not need a referral [...] index (BMI) of36.0 to 36.9 in adult ([facility]) Discussed with patient their BMI (actual, verses [...] placard Age-related osteoporosis without current pathological fracture ([facility]) Med dose refill UTD on DEXA 02/19 Relevant Medications alendronate (Fosamax) 70 MG tablet Essential (primary) hypertension ([facility]) Please check blood pressure daily and record DASH diet Limit caffeine Take medication as directed Contact office if chest pain, pressure, dizziness, shortness of breath, swelling legs Recommend slow position changes Relevant Medications amLODIPine (Norvasc) 5 MG tablet losartan (Cozaar) 100 MG tablet Polyneuropathy in diseases classified elsewhere ([facility]) Continue with deangelo and duloxetine ODALYS (generalized anxiety disorder) ([facility]) Not worse with change out to duloxetine Fu in 6 weeks * Dana Tapia NP - 01/11/2024 7:16 AM ESTAssociated Problem(s): Age-related osteoporosis without current pathological fracture ([facility]) Med dose refill UTD on DEXA 02/19 * Dana Tapia NP - 01/11/2024 7:15 AM ESTAssociated Problem(s): Class 2 severe obesity due to excess calories with serious comorbidity and body mass index (BMI) of 36.0 to 36.9 in adult ([facility]) Discussed with patient their BMI (actual, verses [...] options for weight loss. documented in this [facility]11-13-2024 Instructions* Patient Instructions* Dana Tapia NP - 01/11/2024 2:20 PM EST Keep all doses of meds the same documented in this [facility]11-12-2024 History of Present illness Narrative* Jeffrey Schilling, - 01/10/2024 11:45 AM EST Images from [...] IMAGING: June 23, 2023 x-rays from the [place] office AP axillary and Y scapula of [...] if she desires a referral to another assessment specialist we would be happy to make referral, she states she would like to continue her care here. Tresa Schilling D.O. documented in this encounterTexas County Memorial [id number] History of Present illness Narrative* Leo Goodwin, PT - 01/06/2024 7:30 AM EST Physical Therapy Physical Therapy Treatment Visit Patient Name: Ashley Olson Today's Date: 01/06/2024 Encounter Diagnoses Name Primary? Acute pain of right shoulder Yes Shoulder stiffness, right Visit number: 13 Sup time: 38 min Total time: 55 min Time in: 7:15 am Time out: 8:10 am Subjective Ashley Koehlerlain 78 y.o. 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 documented in this encounterTexas County Memorial [id number] History of Present illness Narrative* May Pulido, CHENTE - 01/05/2024 9:45 AM EST Images from [...] develop for requiring urgent evaluation. 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 Precautions: A/P ROM no [...] with Estim/ice forpain relief documented in this encounterTexas County Memorial HospitalMphagpprfo34-47-4921 History of Present illness Narrative* Leo Mcintyre Buddy, PT - 12/14/2023 7:30 AM EDT Images [...] Relieving factors: rest, ice, otc meds 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 Precautions: A/P ROM no [...] Estim/ice for pain relief documented in this encounterTexas County Memorial HospitalXbgbusixxk99-70-8963 Evaluation note* Diagnosis Onset Date Resolution Status Admit Date CKD (chronic kidney disease) stage 3, GF R 30-59 ml/min acuteOctober 2023 2:14pmHypertensive chronic kidney disease with stage 1 through stage 4 chronic kiacuteOctober 2023 2:14pmHypomagnesemiaacute December 12, 2023 2:14pmIron deficiencyacuteOctober 2023 2:14pmSecondary hyperparathyroidismacuteOctober 2023 2:14pmType 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acuteOctober 2023 2:14pmVitamin D deficiencyacuteOctober 2023 2:14pmDietary counseling and surveillanceacute March 06, 2024 2:03pmHyperlipidemiaacuteJanuary 2024 2:03pmHypertension acuteJanuary 2024 2:03pmObesity, Class II, BMI 35-39.9acuteJanuary 2024 2:03pmType 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acute March 06, 2024 2:03pm [facility] Work Phone: [phone] 203-638510-14-2024 History of Present illness Narrative* May Pulido [...] develop for requiring urgent evaluation. 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 documented in this encounterTexas County Memorial [id number] History of Present illness Narrative* Dana Tapia NP - 11/28/2023 2:36 PM EDTAssociated Problem(s): ODALYS (generalized anxiety disorder) ([facility]) Stop with use of sertraline Start duloxetine [...] without complication, without long-term current useof insulin ([facility]) Continue with Dyllan Mapus * Dana Tapia NP - 11/28/2023 2:36 PM EDTAssociated Problem(s): Fibromyalgia Will see if addition of duloxetine helps * Dana Tapia NP - 11/28/2023 2:35 PM EDTAssociated Problem(s): Essential (primary) hypertension ([facility]) Stable on current med dose, and no changes Gets labs per Nephrology regularly * Dana Tapia NP - 11/28/2023 2:34 PM EDTAssociated Problem(s): Polyneuropathy in diseases classified elsewhere ([facility]) Continue deangelo at 100mg daily Will add duloxetine to see if this helps as well * HEIDY EL - 11/28/2023 2:00 PM EDT Pt [...] complication, without long-term current use of insulin ([facility]) Continue with Dyllan Mapus Essential (primary) hypertension ([facility]) - Primary Stable on current med dose, and no changes Gets labs per Nephrology regularly Polyneuropathy in diseases classified elsewhere ([facility]) Continue deangelo at 100mg daily Will add duloxetine to see if this helps as well Relevant Medications DULoxetine (Cymbalta) [address] capsule ODALYS (generalized anxiety disorder) (CMS/[facility]) Stop with use of sertraline Start duloxetine [...] [address] capsule documented in this encounterTexas County Memorial [id number] History of Present illness Narrative* Leo Goodwin, [...] Relieving factors: rest, ice, otc meds 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 Please sign below. Date: documented in this encounterTexas County Memorial HospitalLikngkszui55-41-7842 History of Present illness Narrative* May Pulido, CORN POPPER - 11/14/2023 8:30 AM EDT Images from [...] develop for requiring urgent evaluation. May Pulido, WANG-HUMAN RESOURCES TRAINING MANAGER documented in this encounterTexas County Memorial HospitalTayvgheexd26-61-2629 History of Present illness Narrative* Carlos Baer [...] understanding. 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 Continue current dose of the losartan and Amlodipine. Nov,hronic kidney disease, stage III (moderate) (ICD-10 - N18.30)She has CKD due to DM and HTN with b/l serum Creatinine 1.1-1.3 mg/dl. Her renal ultrasound showed moderate bilateral cortical atrophy findings consistent with medical renal disease. I have explainedto her the potential risk of worsening renal function due to prolonged use of Meloxican and Omeprazole. She would like to continue it with close monitoring of her renal function. I discussed with the importance of good DM and HTN control to slow down the progression of CKD. Nov,iabetes mellitus with chronic kidney disease (ICD-10 - E11.22)Her blood sugars are within acceptable range. She follows with Tondra. Continue Farxiga, Losartan and Kerendia Nov,Iron deficiency (ICD-10 - E61.1)Continue oral iron every other day. Nov,Vitamin deficiency (ICD-10 - E56.9)MBD parameters including calcium, phosphorus, PTH and vitamin D are within the goal. Continue oral vitamin D. 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 Continue oral magnesium [employer] Other 08-02-2023 Evaluation note* Encounter Date Diagnosis Assessment Notes Treatment Notes Treatment Clinical Notes Sep, Type 2 diabetes ana maría itus with diabetic chronic kidney disease (ICD- 10 - E11.22) Diabetes type 2 home care material was printed 1. Controlled, Type 2 diabetes with A1c of 6.2% 2. Blood glucose levels stable. No changes. 3. Patient is alert, oriented and receptive to making changes or counseling. Notes: Seen for an assessment of current glucose pattern, changes in treatment plan, counseling andcoordination of care related to diabetes, risks, and benefits of treatment, medications, and side effects. TOPICS REVIEWED: 1. Time was spent reviewing: a. Basic concepts of diabetes, progressive beta cell , concepts of basal/bolus/corrective insulin requirements. b. Nutrition: Concepts of healthy [...] hyperglycemia, or diabetes medication issues. 6. Prescriptions: AZ&CO SATHISH-Farreza; 7. Prescriptions will not be filled unless you are compliant with follow up appointments or have a follow up appointment scheduled as ordered by your provider. Refills should be requested at the timeof your visit. Sep,iabetes mellitus with chronic kidney disease (ICD-10 - E11.22) Sep,Hyperlipidemia, unspecified hyperlipidemia type (ICD-10 - E78.5)High cholesterol material was printed 11/2021 ldl 41, at target on statin. Sep,Hypertension, unspecified type (ICD-10 - I10)About hypertension material was printed On Arb. Above target- f/u with pcp for further recommendation. 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 Continue current dose of the losartan and Amlodipine. May,hronic kidney disease, stage III (moderate) (ICD-10 - N18.30)She has CKD due to DM and HTN with b/l serum Creatinine 1.1-1.3 mg/dl. Her renal ultrasound showed moderate bilateral cortical atrophy findings consistent with medical renal disease. I have explainedto her the potential risk of worsening renal function due to prolonged use of Meloxican and Omeprazole. She would like to continue it with close monitoring of her renal function. I discussed with the importance of good DM and HTN control to slow down the progression of CKD. May,iabetes mellitus with chronic kidney disease (ICD-10 - E11.22)Her blood sugars are within acceptable range. She follows with Tondra. Continue Farxiga, Losartan and Kerendia May,Iron deficiency (ICD-10 - E61.1)Continue oral iron every other day. May,Vitamin deficiency (ICD-10 - E56.9)MBD parameters including calcium, phosphorus, PTH and vitamin D are within the goal. Continue oral vitamin D. May,Hypomagnesemia (ICD-10 - E83.42)He has hypomagnesemia due to the PPI. Continue oral magnesium [employer] Other 02-01-2023 Evaluation note* Encounter Date Diagnosis Assessment Notes Treatment Notes Treatment Clinical Notes Mar, Type 2 diabetes ana maría itus with diabetic chronic kidney disease (ICD- 10 - E11.22) Diabetes type 2 home care material was printed 1. Controlled, Type 2 diabetes with A1c of 5.8% 2. Blood glucose levels stable. No changes. 3. Patient is alert, oriented and receptive to making changes or counseling. Notes: Seen for an assessment of current glucose pattern, changes in treatment plan, counseling andcoordination of care related to diabetes, risks, and benefits of treatment, medications, and side effects. TOPICS REVIEWED: 1. Time was spent reviewing: a. Basic concepts of diabetes, progressive beta cell , concepts of basal/bolus/corrective insulin requirements. b. Nutrition: Concepts of healthy [...] or sores that do not appear to behealing. 4. Meter: Plan to check blood glucose: Please check blood glucose levels 1 time/day. Back to back meals reveal effectiveness of bolus dosing. 5. [facility]. Contact office if any issues or concerns with patterns of hypoglycemia, hyperglycemia, or diabetes medication issues. 6. Prescriptions: Refill request for One Touch Test Strips sent to [facility] 7. Prescriptions will not be filled unless you are compliant with follow up appointments or have a follow up appointment scheduled as ordered by your provider. Refills should be requested at the timeof your visit. Mar,iabetes mellitus with chronic kidney disease (ICD-10 - E11.22) Mar,Hyperlipidemia, unspecified hyperlipidemia type (ICD-10 - E78.5)High cholesterol material was printed 11/2021 ldl 41, at target on statin. Mar,Hypertension, unspecified type (ICD-10 - I10)About hypertension material was printed On Arb. 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 Controlled, Type 2 diabetes with A1c of 6.1% 2. Blood glucose levels stable.Pt with concern of loose stools, will hold metformin. Discussed withpt sglt2 class of medication, reviewed s/e. Reviewed if ill n/v/d or surgery medication would need stopped during time of illness. She is agreeable to starting farxiga 5mg once daily. 3. Patient is alert, oriented and receptive to making changes or counseling. Notes: Seen for an assessment of current glucose pattern, changes in treatment plan, counseling andcoordination of care related to diabetes, risks, and benefits of treatment, medications, and side effects. TOPICS REVIEWED: 1. Time was spent reviewing: a. Basic concepts of diabetes, progressive beta cell , concepts of basal/bolus/corrective insulin requirements. b. Nutrition: Concepts of healthy [...] or sores that do not appear to behealing. 4. Meter: Plan to check blood glucose: [...] provider. Refills should be requested at the timeof your visit. Nov,Hyperlipidemia, unspecified hyperlipidemia type (ICD-10 - E78.5)High cholesterol material was printed 11/2021 ldl 41, at target on statin. Nov,Hypertension, unspecified type (ICD-10 - I10)About hypertension material was printed On [employer]. 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 Continue current dose of the losartan and Amlodipine. I have prescribedoral Finerinone due to CKD and DM. We will repeat renal function in 5 days to monitor the serum potassium. Nov,hronic kidney disease, stage III (moderate) (ICD-10 - N18.30)She has CKD due to DM and HTN with b/l serum Creatinine 1.1-1.3 mg/dl. Her renal ultrasound showed moderate bilateral cortical atrophy findings consistent with medical renal disease. I have explainedto her the potential risk of worsening renal function due to prolonged use of Meloxican and Omeprazole. She would like to continue it with close monitoring of her renal function Nov,iabetes mellitus with chronic kidney disease (ICD-10 - E11.22)Her blood sugars are within acceptable range. She follows with Tondra. I would recommend to stop metformin if EGFR drops below 30 ml/min. She may benefit with SGLT2 inhibitors including Farxiga or Jardiance. I have advised her to continue to discuss with the diabetes nurse practitioner in case if she goes off of the metformin. Nov,Iron deficiency (ICD-10 - E61.1)Continue oral iron every other day. Nov,Vitamin deficiency (ICD-10 - E56.9)MBD parameters are within the goal. Continue oral vitamin D. 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 Continue oral magnesium [employer] Other 07-27-2022 Evaluation note* Encounter Date Diagnosis [...] few days, discuss your symptoms with your product management consultant. Follow-up with your family physician if no improvement in 2 to 3 days. Go to the ER for worsening symptoms or concerns Aug,therGeneral allergic reactions home care material was printed [employer] Other 04-26-2022 Evaluation note* Encounter Date Diagnosis Assessment Notes Treatment Notes Treatment Clinical Notes May, Type 2 diabetes ana maría itus with diabetic chronic kidney disease (ICD- 10 - E11.22) Diabetes type 2 home care [...] glucose pattern, changes in treatment plan, counseling andcoordination of care related to diabetes, risks, and benefits of treatment, medications, and side effects. TOPICS REVIEWED: 1. Time was spent reviewing: a. Basic concepts of diabetes, progressive beta cell , concepts of basal/bolus/corrective insulin requirements. b. Nutrition: Concepts of healthy [...] or sores that do not appear to behealing. 4. Meter: Plan to check blood glucose: Please check blood glucose levels 1 time/day. Back to back meals reveal effectiveness of bolus dosing. 5. [facility] Contact office if any issues or concerns with patterns of hypoglycemia, hyperglycemia, or diabetes medication issues. 6. Prescriptions: will call when needed. May,Hyperlipidemia, unspecified hyperlipidemia type (ICD-10 - E78.5)High cholesterol material was printed 11/2020 ldl 33, at target on statin. May,Hypertension, unspecified type (ICD-10 - I10)About hypertension material was printed [employer]. 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 Continue current dose of the losartan and Amlodipine May,hronic kidney disease, stage III (moderate) (ICD-10 - N18.30)She has CKD due to DM and HTN with b/l serum Creatinine 1.1-1.3 mg/dl. Her renal ultrasound showed moderate bilateral cortical atrophy findings consistent with medical renal disease. I have explainedto her the potential risk of worsening renal function due to prolonged use of Meloxican and Omeprazole. She would like to continue it with close monitoring of her renal function May,iabetes mellitus with chronic kidney disease (ICD-10 - E11.22)Her blood sugars are within acceptable range. She follows with Tondra. I would recommend to stop metformin if EGFR drops below 30 ml/min. I have advised her to discuss with the diabetes nurse practitioner about Farxiga as it has been recommended inpatient with the diabetic kidney disease to slow down the progression of the CKD. May,Iron deficiency (ICD-10 - E61.1)Continue oral iron every other day. May,Vitamin deficiency (ICD-10 - E56.9)MBD parameters are within the goal. Continue oral vitamin D. 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 Continue current dose of the losartan and Amlodipine Nov,hronic kidney disease, stage III (moderate) (ICD-10 - N18.30) She has CKD due to DM and HTN with b/l serum Creatinine 1.1-1.3 mg/dl. Her renal ultrasound showed moderate bilateral cortical atrophy findings consistent with medical renal disease. I have explainedto her the potential risk of worsening renal function due to prolonged use of Meloxican and Omeprazole. She would like to continue it with close monitoring of her renal function Nov,iabetes mellitus with chronic kidney disease (ICD-10 - E11.22) Her blood sugars are within acceptable range. She follows with Tondra. I would recommend to stop metformin if EGFR drops below 30 ml/min Nov,Iron deficiency (ICD-10 - E61.1) Continue oral iron every other day. Nov,Vitamin deficiency (ICD-10 - E56.9) MBD parameters are within the goal. Continue oral vitamin D. [employer] Other 10-20-2021 Evaluation note* Encounter Date Diagnosis Assessment Notes Treatment Notes Treatment Clinical Notes Nov, Type 2 diabetes ana maría itus with diabetic chronic kidney disease (ICD- 10 - E11.22) Diabetes type 2 home care [...] glucose pattern, changes in treatment plan, counseling andcoordination of care related to diabetes, risks, and benefits of treatment, medications, and side effects. TOPICS REVIEWED: 1. Time was spent reviewing: a. Basic concepts of diabetes, progressive beta cell , concepts of basal/bolus/corrective insulin requirements. b. Nutrition: Concepts of healthy [...] or sores that do not appear to behealing. 4. Meter: Plan to check blood glucose: Please check blood glucose levels 1 time/day. Back to back meals reveal effectiveness of bolus dosing. 5. [facility]. Contact office if any issues or concerns with patterns of hypoglycemia, hyperglycemia, or diabetes medication issues. 6. Prescriptions: pap for christy for ozempic. Nov,Hyperlipidemia, unspecified hyperlipidemia type (ICD-10 - E78.5) High cholesterol material was printed 11/2020 ldl 33, at target on statin. Nov,Hypertension, unspecified type (ICD-10 - I10) About hypertension material was printed [employer]. Nov,ietary counseling and surveillance (ICD-10 - Z71.3) Eat a diet rich in fruits and vegetables material was printed see above Nov,Vitamin B 12 deficiency (ICD-10 - E53.8) Good food sources of vitamin B12 material was printed 11/2020 vit b12 1360 recommend stop b12 supplement Nov,MI 37.0-37.9, adult (ICD-10 - Z68.37) Eating healthy: tips to make it easier material was printed see above [employer] Other 10-08-2021 Evaluation note* Encounter Date Diagnosis Assessment Notes Treatment Notes Treatment Clinical Notes Nov, Encounter for immunization (ICD- 10 - Z23) Patient presents for COVID-19 vaccination BOOSTER. Pre-screening form answers evaluated with patient. Patient denies current illness or allergic reaction to component of COVID-19 vaccine. Patient provided with current copy of EUA. [facility] [employer] Other Chiel complaint+Reason for visit Narrative* Chief Complaint 6 month f/u / meter Reason for Visit Dietary counseling a nd surveillance Hyperlipidemia Hypertension Type 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 [facility] Work Phone: Evaluation noteNo InformationNortUpper Alleghen[facility] [employer] Other Evaluation note* Diagnosis Dermatophytosis of nail- Primary Dystrophic nail Other specified disease of nail Pain around toenail, right foot Pain around toenail, left foot documented in this encounter [facility] HealthcareEvaluation noteNo assessment information availableFirelands Regional Medical [facility] Work Phone: Evaluation note* Diagnosis Onset Date Resolution Status CKD (chronic kidney disease) stage 3, GF R 30-59 ml/min [id number] deficiencyacuteSecondary hyperparathyroidismacuteType 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acuteVitamin D deficiencyacute [facility] Work Phone: Evaluation note* Diagnosis Onset Date Resolution Status Dietary counseling and surveillance acuteHyperlipidemiaacuteHypertensionacuteType 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acute [facility] Work Phone: Evaluation note* Diagnosis Acute pain of right shoulder- Primary Shoulder stiffness, right documented in this encounter [facility] HealthcareEvaluation note* Diagnosis Acute pain of right shoulder- Primary Shoulder stiffness, right documented in this encounter [facility] HealthcareEvaluation note* Diagnosis Acute pain of right shoulder- Primary Shoulder stiffness, right documented in this encounter [facility] HealthcareEvaluation note* Diagnosis Acute pain of right shoulder- Primary Shoulder stiffness, right documented in this encounter [facility] HealthcareEvaluation note* Diagnosis Onset Date Resolution Status BMI 34.0-34.9,adult acuteDietary counseling and surveillanceacuteHyperlipidemiaacuteHypertension acuteType 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acuteCKD (chronic kidney disease) stage 3, GFR 30-59 ml/[id number] HypomagnesemiaacuteIron deficiencyacuteSecondary hyperparathyroidismacuteType 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acuteVitamin D deficiency acute [facility] Work Phone: Evaluation note* Diagnosis Benign essential HTN (CMS/HCC)- Primary Gastroesophageal reflux disease without esophagitis Esophageal reflux Stage 3 chronic kidney disease, unspecified whether stage 3a or 3b CKD (HCC) (CMS/HCC) Class 2 severe obesity due to excess calories with serious comorbidity and body mass index (BMI) of36.0 to 36.9 in adult ([facility]/HCC) Menopause Symptomatic menopausal or female climacteric states [...] index (BMI) of36.0 to 36.9 in adult ([facility]/HCC) Primary osteoarthritis involving multiple joints Preoperative clearance- Primary Unspecified pre-operative examination Type 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 (CMS/HCC) Malignant neoplasm of unspecified ovary (CMS/HCC) Polyneuropathy in diseases classified elsewhere (CMS/HCC) Secondary hyperparathyroidism of renal origin (CMS/HCC) Secondary hyperparathyroidism (of renal origin) Hypertensive chronic kidney disease with stage 1 through stage 4 chronic kidney disease, or unspecified chronic kidney disease ([facility]) Age-related osteoporosis without current pathological fracture ([facility]) Essential (primary) hypertension ([facility]) Unspecified essential hypertension Type 2 diabetes mellitus with diabetic neuropathy, unspecified ([facility]) Secondary hyperparathyroidism ([facility]/HCC) Secondary hyperparathyroidism (of renal origin) Acute pain of right shoulder Essential (primary) hypertension ([facility])- Primary Unspecified essential hypertension Fibromyalgia Unspecified myalgia and myositis Polyneuropathy in diseases classified elsewhere ([facility]) ODALYS (generalized anxiety disorder) ([facility]) Generalized anxiety disorder Type 2 diabetes mellitus without complication, without long-term current use of insulin ([facility]) Status post right rotator cuff repair- Primary documented in this encounter [facility] HealthcareEvaluation note* Diagnosis Benign essential HTN ([facility])- Primary Gastroesophageal reflux disease without esophagitis Esophageal reflux Stage 3 chronic kidney disease, unspecified whether stage 3a or 3b CKD (HCC) ([facility]) Class 2 severe obesity due to excess calories with serious comorbidity and body mass index (BMI) of36.0 to 36.9 in adult ([facility]) Menopause Symptomatic menopausal or female climacteric states Encounter for screening mammogram for malignant neoplasm of breast Encounter for subsequent annual wellness visit (AWV) in Medicare patient- Primary Benign essential HTN ([facility]) Gastroesophageal reflux disease without esophagitis Esophageal reflux Stage 3 chronic kidney disease, unspecified whether stage 3a or 3b CKD (HCC) ([facility]) 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, without long-term current use of insulin, unspecified whether stage 3a or 3b CKD (HCC) ([facility]) Acute pain of right shoulder- Primary Class 2 severe obesity due to excess calories with serious comorbidity and body mass index (BMI) of36.0 to 36.9 in adult ([facility]) Primary osteoarthritis involving multiple joints Preoperative clearance- Primary Unspecified pre-operative examination Type 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 ([facility]) Malignant neoplasm of unspecified ovary ([facility] Polyneuropathy in diseases classified elsewhere ([facility]) Secondary hyperparathyroidism of renal origin ([facility]) Secondary hyperparathyroidism (of renal origin) Hypertensive chronic kidney disease with stage 1 through stage 4 chronic kidney disease, or unspecified chronic kidney disease ([facility]/HCC) Age-related osteoporosis without current pathological fracture (CMS/HCC) Essential (primary) hypertension ([facility]/HCC) Unspecified essential hypertension Type 2 diabetes mellitus with diabetic neuropathy, unspecified ([facility]) Secondary hyperparathyroidism ([facility]/HCC) Secondary hyperparathyroidism (of renal origin) Acute pain of right shoulder Essential (primary) hypertension (CMS/HCC)- Primary Unspecified essential hypertension Fibromyalgia Unspecified myalgia and myositis Polyneuropathy in diseases classified elsewhere ([facility]/HCC) ODALYS (generalized anxiety disorder) ([facility]) Generalized anxiety disorder Type 2 diabetes mellitus without complication, without long-term current use of insulin ([facility]) Acute pain of right shoulder- Primary Shoulder stiffness, right documented in this encounter [facility] HealthcareEvaluation note* Diagnosis Benign essential HTN ([facility])- Primary Gastroesophageal reflux disease without esophagitis Esophageal reflux Stage 3 chronic kidney disease, unspecified whether stage 3a or 3b CKD (HCC) ([facility]) Class 2 severe obesity due to excess calories with serious comorbidity and body mass index (BMI) of36.0 to 36.9 in adult ([facility]) Menopause Symptomatic menopausal or female climacteric states Encounter for screening mammogram for malignant neoplasm of breast Encounter for subsequent annual wellness visit (AWV) in Medicare patient- Primary Benign essential HTN ([facility]) Gastroesophageal reflux disease without esophagitis Esophageal reflux Stage 3 chronic kidney disease, unspecified whether stage 3a or 3b CKD (HCC) ([facility]) 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, without long-term current use of insulin, unspecified whether stage 3a or 3b CKD (HCC) ([facility]) Acute pain of right shoulder- Primary Class 2 severe obesity due to excess calories with serious comorbidity and body mass index (BMI) of36.0 to 36.9 in adult ([facility]) Primary osteoarthritis involving multiple joints Preoperative clearance- Primary Unspecified pre-operative examination Type 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 ([facility]) Malignant neoplasm of unspecified ovary ([facility]) Polyneuropathy in diseases classified elsewhere ([facility]) Secondary hyperparathyroidism of renal origin ([facility]/HCC) Secondary hyperparathyroidism (of renal origin) Hypertensive chronic kidney disease with stage 1 through stage 4 chronic kidney disease, or unspecified chronic kidney disease ([facility]/HCC) Age-related osteoporosis without current pathological fracture ([facility]/HCC) Essential (primary) hypertension (CMS/HCC) Unspecified essential hypertension Type 2 diabetes mellitus with diabetic neuropathy, unspecified (CMS/HCC) Secondary hyperparathyroidism (CMS/HCC) Secondary hyperparathyroidism (of renal origin) Acute pain of right shoulder Essential (primary) hypertension (CMS/HCC)- Primary Unspecified essential hypertension Fibromyalgia Unspecified myalgia and myositis Polyneuropathy in diseases classified elsewhere ([facility]/HCC) ODALYS (generalized anxiety disorder) ([facility]) Generalized anxiety disorder Type 2 diabetes mellitus without complication, without long-term current use of insulin ([facility]) Arthropathy, unspecified Unspecified osteoarthritis, unspecified site documented in this encounter [facility] HealthcareEvaluation note* Diagnosis Benign essential HTN (CMS/HCC)- Primary Gastroesophageal reflux disease without esophagitis Esophageal reflux Stage 3 chronic kidney disease, unspecified whether stage 3a or 3b CKD (HCC) ([facility]) Class 2 severe obesity due to excess calories with serious comorbidity and body mass index (BMI) of36.0 to 36.9 in adult ([facility]) Menopause Symptomatic menopausal or female climacteric states Encounter for screening mammogram for malignant neoplasm of breast Encounter for subsequent annual wellness visit (AWV) in Medicare patient- Primary Benign essential HTN (CMS/HCC) Gastroesophageal reflux disease without esophagitis Esophageal reflux Stage 3 chronic kidney disease, unspecified whether stage 3a or 3b CKD (HCC) ([facility]) 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, without long-term current use of insulin, unspecified whether stage 3a or 3b CKD (HCC) ([facility]/HCC) Acute pain of right shoulder- Primary Class 2 severe obesity due to excess calories with serious comorbidity and body mass index (BMI) of36.0 to 36.9 in adult ([facility]) Primary osteoarthritis involving multiple joints Preoperative clearance- Primary Unspecified pre-operative examination Type 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 (CMS/HCC) Malignant neoplasm of unspecified ovary (CMS/HCC) Polyneuropathy in diseases classified elsewhere ([facility]) Secondary hyperparathyroidism of renal origin ([facility]/HCC) Secondary hyperparathyroidism (of renal origin) Hypertensive chronic [...] Shoulder stiffness, right documented in this encounter [facility] HealthcareEvaluation note* Diagnosis Benign essential HTN (CMS/HCC)- Primary Gastroesophageal reflux disease without esophagitis Esophageal reflux Stage 3 chronic kidney disease, unspecified whether stage 3a or 3b CKD (HCC) (CMS/[facility]) Class 2 severe obesity due to excess calories with serious comorbidity and body mass index (BMI) of36.0 to 36.9 in adult ([facility]) Menopause Symptomatic menopausal or female climacteric states Encounter for screening mammogram for malignant neoplasm of breast Encounter for subsequent annual wellness visit (AWV) in Medicare patient- Primary Benign essential HTN (CMS/HCC) Gastroesophageal reflux disease without esophagitis Esophageal reflux Stage 3 chronic kidney disease, unspecified whether stage 3a or 3b CKD (HCC) ([facility]/HCC) 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, without long-term current use of insulin, unspecified whether stage 3a or 3b CKD (HCC) (CMS/HCC) Acute pain of right shoulder- Primary Class 2 severe obesity due to excess calories with serious comorbidity and body mass index (BMI) of36.0 to 36.9 in adult ([facility]) Primary osteoarthritis involving multiple joints Preoperative clearance- Primary Unspecified pre-operative examination Type 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 (CMS/HCC) Malignant neoplasm of unspecified ovary (CMS/HCC) Polyneuropathy in diseases classified elsewhere ([facility]/HCC) Secondary hyperparathyroidism of renal origin (CMS/HCC) Secondary [...] and myositis Polyneuropathy in diseases classified elsewhere ([facility]/HCC) ODALYS (generalized anxiety disorder) ([facility]) Generalized anxiety disorder Type 2 diabetes mellitus without complication, without long-term current use of insulin (CMS/[facility]) Acute pain of right shoulder- Primary Shoulder stiffness, right documented in this encounter [facility] HealthcareEvaluation note* Diagnosis Benign essential HTN (CMS/HCC)- Primary Gastroesophageal reflux disease without esophagitis Esophageal reflux Stage 3 chronic kidney disease, unspecified whether stage 3a or 3b CKD (HCC) ([facility]) Class 2 severe obesity due to excess calories with serious comorbidity and body mass index (BMI) of36.0 to 36.9 in adult ([facility]) Menopause Symptomatic menopausal or female climacteric states Encounter for screening mammogram for malignant neoplasm of breast Encounter for subsequent annual wellness visit (AWV) in Medicare patient- Primary Benign essential HTN ([facility]) Gastroesophageal reflux disease without esophagitis Esophageal reflux Stage 3 chronic kidney disease, unspecified whether stage 3a or 3b CKD (HCC) ([facility]) 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, without long-term current use of insulin, unspecified whether stage 3a or 3b CKD (HCC) ([facility]/HCC) Acute pain of right shoulder- Primary Class 2 severe obesity due to excess calories with serious comorbidity and body mass index (BMI) of36.0 to 36.9 in adult ([facility]) Primary osteoarthritis involving multiple joints Preoperative clearance- Primary Unspecified pre-operative examination Type 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 ([facility]/HCC) Malignant neoplasm of unspecified ovary ([facility]) Polyneuropathy in diseases classified elsewhere ([facility]) Secondary hyperparathyroidism of renal origin ([facility]/HCC) Secondary hyperparathyroidism (of renal origin) Hypertensive chronic kidney disease with stage 1 through stage 4 chronic kidney disease, or unspecified chronic kidney disease ([facility]/HCC) Age-related osteoporosis without current pathological fracture ([facility]/HCC) Essential (primary) hypertension (CMS/HCC) Unspecified essential hypertension Type 2 diabetes mellitus with diabetic neuropathy, unspecified ([facility]) Secondary hyperparathyroidism (CMS/HCC) Secondary hyperparathyroidism (of renal origin) Acute pain of right shoulder Essential (primary) hypertension (CMS/HCC)- Primary Unspecified essential hypertension Fibromyalgia Unspecified myalgia and myositis Polyneuropathy in diseases classified elsewhere ([facility]/HCC) ODALYS (generalized anxiety disorder) ([facility]) Generalized anxiety disorder Type 2 diabetes mellitus without complication, without long-term current use of insulin ([facility]) Acute pain of right shoulder- Primary Shoulder stiffness, right documented in this encounter [facility] HealthcareEvaluation note* Diagnosis Benign essential HTN (CMS/HCC)- Primary Gastroesophageal reflux disease without esophagitis Esophageal reflux Stage 3 chronic kidney disease, unspecified whether stage 3a or 3b CKD (HCC) ([facility]) Class 2 severe obesity due to excess calories with serious comorbidity and body mass index (BMI) of36.0 to 36.9 in adult ([facility]) Menopause Symptomatic menopausal or female climacteric states Encounter for screening mammogram for malignant neoplasm of breast Encounter for subsequent annual wellness visit (AWV) in Medicare patient- Primary Benign essential HTN ([facility]) Gastroesophageal reflux disease without esophagitis Esophageal reflux Stage 3 chronic kidney disease, unspecified whether stage 3a or 3b CKD (HCC) ([facility]) 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, without long-term current use of insulin, unspecified whether stage 3a or 3b CKD (HCC) ([facility]) Acute pain of right shoulder- Primary Class 2 severe obesity due to excess calories with serious comorbidity and body mass index (BMI) of36.0 to 36.9 in adult ([facility]) Primary osteoarthritis involving multiple joints Preoperative clearance- Primary Unspecified pre-operative examination Type 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 ([facility]) Malignant neoplasm of unspecified ovary ([facility]) Polyneuropathy in diseases classified elsewhere ([facility]) Secondary hyperparathyroidism of renal origin ([facility]/HCC) Secondary hyperparathyroidism (of renal origin) Hypertensive chronic kidney disease with stage 1 through stage 4 chronic kidney disease, or unspecified chronic kidney disease ([facility]/HCC) Age-related osteoporosis without current pathological fracture ([facility]) Essential (primary) hypertension ([facility]/HCC) Unspecified essential hypertension Type 2 diabetes mellitus with diabetic neuropathy, unspecified ([facility]) Secondary hyperparathyroidism ([facility]/HCC) Secondary hyperparathyroidism (of renal origin) Acute pain of right shoulder Essential (primary) hypertension (CMS/HCC)- Primary Unspecified essential hypertension Fibromyalgia Unspecified myalgia and myositis Polyneuropathy in diseases classified elsewhere ([facility]/HCC) ODALYS (generalized anxiety disorder) ([facility]) Generalized anxiety disorder Type 2 diabetes mellitus without complication, without long-term current use of insulin ([facility]) Gastro-esophageal reflux disease without esophagitis Esophageal reflux documented in this encounter [facility] HealthcareEvaluation note* Diagnosis Benign essential HTN ([facility]/HCC)- Primary Gastroesophageal reflux disease without esophagitis Esophageal reflux Stage 3 chronic kidney disease, unspecified whether stage 3a or 3b CKD (HCC) ([facility]) Class 2 severe obesity due to excess calories with serious comorbidity and body mass index (BMI) of36.0 to 36.9 in adult ([facility]) Menopause Symptomatic menopausal or female climacteric states Encounter for screening mammogram for malignant neoplasm of breast Encounter for subsequent annual wellness visit (AWV) in Medicare patient- Primary Benign essential HTN ([facility]) Gastroesophageal reflux disease without esophagitis Esophageal reflux Stage 3 chronic kidney disease, unspecified whether stage 3a or 3b CKD (HCC) ([facility]) 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, without long-term current use of insulin, unspecified whether stage 3a or 3b CKD (HCC) ([facility]) Acute pain of right shoulder- Primary Class 2 severe obesity due to excess calories with serious comorbidity and body mass index (BMI) of36.0 to 36.9 in adult ([facility]) Primary osteoarthritis involving multiple joints Preoperative clearance- Primary Unspecified pre-operative examination Type 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 ([facility]) Malignant neoplasm of unspecified ovary ([facility]) Polyneuropathy in diseases classified elsewhere ([facility]) Secondary hyperparathyroidism of renal origin ([facility]) Secondary hyperparathyroidism (of renal origin) Hypertensive chronic kidney disease with stage 1 through stage 4 chronic kidney disease, or unspecified chronic kidney disease ([facility]) Age-related osteoporosis without current pathological fracture ([facility]) Essential (primary) hypertension ([facility]) Unspecified essential hypertension Type 2 diabetes mellitus with diabetic neuropathy, unspecified ([facility]) Secondary hyperparathyroidism ([facility]) Secondary hyperparathyroidism (of renal origin) Acute pain of right shoulder Essential (primary) hypertension ([facility])- Primary Unspecified essential hypertension Fibromyalgia Unspecified myalgia and myositis Polyneuropathy in diseases classified elsewhere ([facility]) ODALYS (generalized anxiety disorder) ([facility]) Generalized anxiety disorder Type 2 diabetes mellitus without complication, without long-term current use of insulin ([facility]) Acute pain of right shoulder- Primary Shoulder stiffness, right documented in this encounter [facility] HealthcareEvaluation note* Diagnosis Benign essential HTN ([facility]/HCC)- Primary Gastroesophageal reflux disease without esophagitis Esophageal reflux Stage 3 chronic kidney disease, unspecified whether stage 3a or 3b CKD (HCC) ([facility]) Class 2 severe obesity due to excess calories with serious comorbidity and body mass index (BMI) of36.0 to 36.9 in adult ([facility]) Menopause Symptomatic menopausal or female climacteric states Encounter for screening mammogram for malignant neoplasm of breast Encounter for subsequent annual wellness visit (AWV) in Medicare patient- Primary Benign essential HTN (CMS/HCC) Gastroesophageal reflux disease without esophagitis Esophageal reflux Stage 3 chronic kidney disease, unspecified whether stage 3a or 3b CKD (HCC) ([facility]) 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, without long-term current use of insulin, unspecified whether stage 3a or 3b CKD (HCC) ([facility]) Acute pain of right shoulder- Primary Class 2 severe obesity due to excess calories with serious comorbidity and body mass index (BMI) of36.0 to 36.9 in adult ([facility]) Primary osteoarthritis involving multiple joints Preoperative clearance- Primary Unspecified pre-operative examination Type 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 ([facility]) Malignant neoplasm of unspecified ovary ([facility]) Polyneuropathy in diseases classified elsewhere ([facility]) Secondary hyperparathyroidism of renal origin ([facility]) Secondary hyperparathyroidism (of renal origin) Hypertensive chronic kidney disease with stage 1 through stage 4 chronic kidney disease, or unspecified chronic kidney disease ([facility]) Age-related osteoporosis without current pathological fracture ([facility]) Essential (primary) hypertension ([facility]) Unspecified essential hypertension Type 2 diabetes mellitus with diabetic neuropathy, unspecified ([facility]) Secondary hyperparathyroidism ([facility]) Secondary hyperparathyroidism (of renal origin) Acute pain of right shoulder Essential (primary) hypertension ([facility]/HCC)- Primary Unspecified essential hypertension Fibromyalgia Unspecified myalgia and myositis Polyneuropathy in diseases classified elsewhere ([facility]) ODALYS (generalized anxiety disorder) ([facility]) Generalized anxiety disorder Type 2 diabetes mellitus without complication, without long-term current use of insulin ([facility]) Status post right rotator cuff repair- Primary Right shoulder pain, unspecified chronicity documented in this encounter [facility] HealthcareEvaluation note* Diagnosis Benign essential HTN (CMS/HCC)- Primary Gastroesophageal reflux disease without esophagitis Esophageal reflux Stage 3 chronic kidney disease, unspecified whether stage 3a or 3b CKD (HCC) ([facility]) Class 2 severe obesity due to excess calories with serious comorbidity and body mass index (BMI) of36.0 to 36.9 in adult ([facility]) Menopause Symptomatic menopausal or female climacteric states Encounter for screening mammogram for malignant neoplasm of breast Encounter for subsequent annual wellness visit (AWV) in Medicare patient- Primary Benign essential HTN (CMS/HCC) Gastroesophageal reflux disease without esophagitis Esophageal reflux Stage 3 chronic kidney disease, unspecified whether stage 3a or 3b CKD (HCC) ([facility]) 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, without long-term current use of insulin, unspecified whether stage 3a or 3b CKD (HCC) ([facility]) Acute pain of right shoulder- Primary Class 2 severe obesity due to excess calories with serious comorbidity and body mass index (BMI) of36.0 to 36.9 in adult ([facility]) Primary osteoarthritis involving multiple joints Preoperative clearance- Primary Unspecified pre-operative examination Type 2 diabetes mellitus with diabetic chronic kidney disease ([facility]) Malignant neoplasm of unspecified ovary ([facility]) Polyneuropathy in diseases classified elsewhere ([facility]) Secondary hyperparathyroidism of renal origin ([facility]) Secondary hyperparathyroidism (of renal origin) Hypertensive chronic kidney disease with stage 1 through stage 4 chronic kidney disease, or unspecified chronic kidney disease ([facility]) Age-related osteoporosis without current pathological fracture ([facility] Essential (primary) hypertension ([facility]) Unspecified essential hypertension Type 2 diabetes mellitus with diabetic neuropathy, unspecified ([facility]) Secondary hyperparathyroidism ([facility]/HCC) Secondary hyperparathyroidism (of renal origin) Acute pain of right shoulder Essential (primary) hypertension ([facility]/HCC)- Primary Unspecified essential hypertension Fibromyalgia Unspecified myalgia and myositis Polyneuropathy in diseases classified elsewhere ([facility]) ODALYS (generalized anxiety disorder) ([facility]) Generalized anxiety disorder Type 2 diabetes mellitus without complication, without long-term current use of insulin ([facility]) Acute pain of right shoulder- Primary Shoulder stiffness, right documented in this encounter [facility] HealthcareEvaluation note* Diagnosis Benign essential HTN (CMS/HCC)- Primary Gastroesophageal reflux disease without esophagitis Esophageal reflux Stage 3 chronic kidney disease, unspecified whether stage 3a or 3b CKD (HCC) ([facility]) Class 2 severe obesity due to excess calories with serious comorbidity and body mass index (BMI) of36.0 to 36.9 in adult ([facility]) Menopause Symptomatic menopausal or female climacteric states Encounter for screening mammogram for malignant neoplasm of breast Encounter for subsequent annual wellness visit (AWV) in Medicare patient- Primary Benign essential HTN ([facility]) Gastroesophageal reflux disease without esophagitis Esophageal reflux Stage 3 chronic kidney disease, unspecified whether stage 3a or 3b CKD (HCC) ([facility]) 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, without long-term current use of insulin, unspecified whether stage 3a or 3b CKD (HCC) ([facility]) Acute pain of right shoulder- Primary Class 2 severe obesity due to excess calories with serious comorbidity and body mass index (BMI) of36.0 to 36.9 in adult ([facility] [place]) Primary osteoarthritis involving multiple joints Preoperative clearance- Primary Unspecified pre-operative examination Type 2 diabetes mellitus with diabetic chronic kidney disease ([facility]) Malignant neoplasm of unspecified ovary ([facility]) Polyneuropathy in diseases classified elsewhere ([facility]) Secondary hyperparathyroidism of renal origin ([facility]) Secondary hyperparathyroidism (of renal origin) Hypertensive chronic kidney disease with stage 1 through stage 4 chronic kidney disease, or unspecified chronic kidney disease ([facility]) Age-related osteoporosis without current pathological fracture ([facility] [place]) Essential (primary) hypertension ([facility]) Unspecified essential hypertension Type 2 diabetes mellitus with diabetic neuropathy, unspecified ([facility]) Secondary hyperparathyroidism ([facility]) Secondary hyperparathyroidism (of renal origin) Acute pain of right shoulder Essential (primary) hypertension ([facility])- Primary Unspecified essential hypertension Fibromyalgia Unspecified myalgia and myositis Polyneuropathy in diseases classified elsewhere ([facility]) ODALYS (generalized anxiety disorder) ([facility]) Generalized anxiety disorder Type 2 diabetes mellitus without complication, without long-term current use of insulin ([facility]) Fibromyalgia- Primary Unspecified myalgia and myositis Polyneuropathy in diseases classified elsewhere ([facility]) Class 2 severe obesity due to excess calories with serious comorbidity and body mass index (BMI) of36.0 to 36.9 in adult ([facility]) ODALYS (generalized anxiety disorder) ([facility]/HCC) Generalized anxiety disorder Essential (primary) hypertension ([facility]/HCC) Unspecified essential hypertension Age-related osteoporosis without current pathological fracture ([facility]) Primary osteoarthritis involving multiple joints Dermatophytosis of nail- Primary Dystrophic nail Other specified disease of nail Pain around toenail, right foot Pain around toenail, left foot documented in this encounter [facility] HealthcareEvaluation note* Diagnosis Benign essential HTN (CMS/HCC)- Primary Gastroesophageal reflux disease without esophagitis Esophageal reflux Stage 3 chronic kidney disease, unspecified whether stage 3a or 3b CKD (HCC) ([facility]/HCC) Class 2 severe obesity due to excess calories with serious comorbidity and body mass index (BMI) of36.0 to 36.9 in adult ([facility]) Menopause Symptomatic menopausal or female climacteric states Encounter for screening mammogram for malignant neoplasm of breast Encounter for subsequent annual wellness visit (AWV) in Medicare patient- Primary Benign essential HTN (CMS/HCC) Gastroesophageal reflux disease without esophagitis Esophageal reflux Stage 3 chronic kidney disease, unspecified whether stage 3a or 3b CKD (HCC) ([facility]) 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, without long-term current use of insulin, unspecified whether stage 3a or 3b CKD (HCC) ([facility]) Acute pain of right shoulder- Primary Class 2 severe obesity due to excess calories with serious comorbidity and body mass index (BMI) of36.0 to 36.9 in adult ([facility]) Primary osteoarthritis involving multiple joints Preoperative clearance- Primary Unspecified pre-operative examination Type 2 diabetes mellitus with diabetic chronic kidney disease ([facility]) Malignant neoplasm of unspecified ovary ([facility]) Polyneuropathy in diseases classified elsewhere ([facility]/HCC) Secondary hyperparathyroidism of renal origin ([facility]/HCC) Secondary hyperparathyroidism (of renal origin) Hypertensive chronic kidney disease with stage 1 through stage 4 chronic kidney disease, or unspecified chronic kidney disease ([facility]/HCC) Age-related osteoporosis without current pathological fracture ([facility]/HCC) Essential (primary) hypertension ([facility]/HCC) Unspecified essential hypertension Type 2 diabetes mellitus with diabetic neuropathy, unspecified ([facility]) Secondary hyperparathyroidism ([facility]/HCC) Secondary hyperparathyroidism (of renal origin) Acute pain of right shoulder Essential (primary) hypertension (CMS/HCC)- Primary Unspecified essential hypertension Fibromyalgia Unspecified myalgia and myositis Polyneuropathy in diseases classified elsewhere ([facility]/HCC) ODALYS (generalized anxiety disorder) ([facility]) Generalized anxiety disorder Type 2 diabetes mellitus without complication, without long-term current use of insulin ([facility]) Status post right rotator cuff repair- Primary Right shoulder pain, unspecified chronicity Fibromyalgia- Primary Unspecified myalgia and myositis Polyneuropathy in diseases classified elsewhere ([facility]) Class 2 severe obesity due to excess calories with serious comorbidity and body mass index (BMI) of36.0 to 36.9 in adult ([facility]) ODALYS (generalized anxiety disorder) ([facility] Generalized anxiety disorder Essential (primary) hypertension ([facility]) Unspecified essential hypertension Age-related osteoporosis without current pathological fracture ([facility]) Primary osteoarthritis involving multiple joints documented in this encounter [facility] HealthcareEvaluation note* Diagnosis Benign essential HTN ([facility])- Primary Gastroesophageal reflux disease without esophagitis Esophageal reflux Stage 3 chronic kidney disease, unspecified whether stage 3a or 3b CKD (HCC) ([facility]) Class 2 severe obesity due to excess calories with serious comorbidity and body mass index (BMI) of36.0 to 36.9 in adult ([facility]) Menopause Symptomatic menopausal or female climacteric states Encounter for screening mammogram for malignant neoplasm of breast Encounter for subsequent annual wellness visit (AWV) in Medicare patient- Primary Benign essential HTN ([facility]) Gastroesophageal reflux disease without esophagitis Esophageal reflux Stage 3 chronic kidney disease, unspecified whether stage 3a or 3b CKD (HCC) ([facility]) 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, without long-term current use of insulin, unspecified whether stage 3a or 3b CKD (HCC) ([facility]) Acute pain of right shoulder- Primary Class 2 severe obesity due to excess calories with serious comorbidity and body mass index (BMI) of36.0 to 36.9 in adult ([facility]) Primary osteoarthritis involving multiple joints Preoperative clearance- Primary Unspecified pre-operative examination Type 2 diabetes mellitus with diabetic chronic kidney disease ([facility]) Malignant neoplasm of unspecified ovary ([facility] Polyneuropathy in diseases classified elsewhere ([facility] Secondary hyperparathyroidism of renal origin ([facility]) Secondary hyperparathyroidism (of renal origin) Hypertensive chronic kidney disease with stage 1 through stage 4 chronic kidney disease, or unspecified chronic kidney disease ([facility]) Age-related osteoporosis without current pathological fracture ([facility]) Essential (primary) hypertension ([facility]) Unspecified essential hypertension Type 2 diabetes mellitus with diabetic neuropathy, unspecified ([facility]) Secondary hyperparathyroidism ([facility]) Secondary hyperparathyroidism (of renal origin) Acute pain of right shoulder Essential (primary) hypertension ([facility])- Primary Unspecified essential hypertension Fibromyalgia Unspecified myalgia and myositis Polyneuropathy in diseases classified elsewhere ([facility]) ODALYS (generalized anxiety disorder) ([facility]) Generalized anxiety disorder Type 2 diabetes mellitus without complication, without long-term current use of insulin ([facility]) Fibromyalgia- Primary Unspecified myalgia and myositis Polyneuropathy in diseases classified elsewhere ([facility]) Class 2 severe obesity due to excess calories with serious comorbidity and body mass index (BMI) of36.0 to 36.9 in adult ([facility]) ODALYS (generalized anxiety disorder) ([facility] Generalized anxiety disorder Essential (primary) hypertension ([facility] Unspecified essential hypertension Age-related osteoporosis without current pathological fracture ([facility] Primary osteoarthritis involving multiple joints documented in this encounter [facility] HealthcareEvaluation note* Diagnosis Status post right rotator cuff repair documented in this encounter [facility] HealthcareEvaluation note* Diagnosis Benign essential HTN ([facility])- Primary Gastroesophageal reflux disease without esophagitis Esophageal reflux Stage 3 chronic kidney disease, unspecified whether stage 3a or 3b CKD (HCC) ([facility]) Class 2 severe obesity due to excess calories with serious comorbidity and body mass index (BMI) of36.0 to 36.9 in adult ([facility]) Menopause Symptomatic menopausal or female climacteric states Encounter for screening mammogram for malignant neoplasm of breast Encounter for subsequent annual wellness visit (AWV) in Medicare patient- Primary Benign essential HTN ([facility]) Gastroesophageal reflux disease without esophagitis Esophageal reflux Stage 3 chronic kidney disease, unspecified whether stage 3a or 3b CKD (HCC) ([facility]) 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, without long-term current use of insulin, unspecified whether stage 3a or 3b CKD (HCC) ([facility]) Acute pain of right shoulder- Primary Class 2 severe obesity due to excess calories with serious comorbidity and body mass index (BMI) of36.0 to 36.9 in adult ([facility]) Primary osteoarthritis involving multiple joints Preoperative clearance- Primary Unspecified pre-operative examination Type 2 diabetes mellitus with diabetic chronic kidney disease ([facility]) Malignant neoplasm of unspecified ovary ([facility]) Polyneuropathy in diseases classified elsewhere ([facility]) Secondary hyperparathyroidism of renal origin ([facility]) Secondary hyperparathyroidism (of renal origin) Hypertensive chronic kidney disease with stage 1 through stage 4 chronic kidney disease, or unspecified chronic kidney disease ([facility]) Age-related osteoporosis without current pathological fracture ([facility]) Essential (primary) hypertension ([facility]) Unspecified essential hypertension Type 2 diabetes mellitus with diabetic neuropathy, unspecified ([facility]) Secondary hyperparathyroidism ([facility]) Secondary hyperparathyroidism (of renal origin) Acute pain of right shoulder Essential (primary) hypertension ([facility])- Primary Unspecified essential hypertension Fibromyalgia Unspecified myalgia and myositis Polyneuropathy in diseases classified elsewhere ([facility]) ODALYS (generalized anxiety disorder) ([facility]) Generalized anxiety disorder Type 2 diabetes mellitus without complication, without long-term current use of insulin ([facility]) Fibromyalgia- Primary Unspecified myalgia and myositis Polyneuropathy in diseases classified elsewhere ([facility]) Class 2 severe obesity due to excess calories with serious comorbidity and body mass index (BMI) of36.0 to 36.9 in adult ([facility]) ODALYS (generalized anxiety disorder) ([facility]) Generalized anxiety disorder Essential (primary) hypertension ([facility]) Unspecified essential hypertension Age-related osteoporosis without current pathological fracture ([facility]) Primary osteoarthritis involving multiple joints Class 2 severe obesity due to excess calories with serious comorbidity and body mass index (BMI) of36.0 to 36.9 in adult ([facility])- Primary Essential (primary) hypertension ([facility]) Unspecified essential hypertension Acute non-recurrent pansinusitis Encounter for screening mammogram for malignant neoplasm of breast documented in this encounter [facility] HealthcareEvaluation note* Diagnosis Essential (primary) hypertension ([facility])- Primary Unspecified essential hypertension Fibromyalgia Unspecified myalgia and myositis Polyneuropathy in diseases classified elsewhere ([facility]) ODALYS (generalized anxiety disorder) ([facility]) Generalized anxiety disorder Type 2 diabetes mellitus without complication, without long-term current use of insulin ([facility]) documented in this encounter [facility]Evaluation [facility]* Diagnosis Acute pain of right shoulder- Primary Shoulder stiffness, right documented in this encounter [facility]Evaluation note* Diagnosis Benign essential HTN ([facility]/HCC)- Primary Gastroesophageal reflux disease without esophagitis Esophageal reflux Stage 3 chronic kidney disease, unspecified whether stage 3a or 3b CKD (HCC) ([facility]) Class 2 severe obesity due to excess calories with serious comorbidity and body mass index (BMI) of36.0 to 36.9 in adult ([facility]) Menopause Symptomatic menopausal or female climacteric states Encounter for screening mammogram for malignant neoplasm of breast Encounter for subsequent annual wellness visit (AWV) in Medicare patient- Primary Benign essential HTN ([facility]/HCC) Gastroesophageal reflux disease without esophagitis Esophageal reflux Stage 3 chronic kidney disease, unspecified whether stage 3a or 3b CKD (HCC) ([facility]) 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, without long-term current use of insulin, unspecified whether stage 3a or 3b CKD (HCC) ([facility]) Acute pain of right shoulder- Primary Class 2 severe obesity due to excess calories with serious comorbidity and body mass index (BMI) of36.0 to 36.9 in adult ([facility]) Primary osteoarthritis involving multiple joints Preoperative clearance- Primary Unspecified pre-operative examination Type 2 diabetes mellitus with diabetic chronic kidney disease ([facility]) Malignant neoplasm of unspecified ovary ([facility]) Polyneuropathy in diseases classified elsewhere ([facility]) Secondary hyperparathyroidism of renal origin ([facility]) Secondary hyperparathyroidism (of renal origin) Hypertensive chronic kidney disease with stage 1 through stage 4 chronic kidney disease, or unspecified chronic kidney disease ([facility]) Age-related osteoporosis without current pathological fracture ([facility]) Essential (primary) hypertension ([facility]) Unspecified essential hypertension Type 2 diabetes mellitus with diabetic neuropathy, unspecified ([facility]) Secondary hyperparathyroidism ([facility]) Secondary hyperparathyroidism (of renal origin) Acute pain of right shoulder Essential (primary) hypertension ([facility])- Primary Unspecified essential hypertension Fibromyalgia Unspecified myalgia and myositis Polyneuropathy in diseases classified elsewhere ([facility]) ODALYS (generalized anxiety disorder) ([facility]) Generalized anxiety disorder Type 2 diabetes mellitus without complication, without long-term current use of insulin ([facility]) Fibromyalgia- Primary Unspecified myalgia and myositis Polyneuropathy in diseases classified elsewhere ([facility]) Class 2 severe obesity due to excess calories with serious comorbidity and body mass index (BMI) of36.0 to 36.9 in adult ([facility]) ODALYS (generalized anxiety disorder) ([facility]) Generalized anxiety disorder Essential (primary) hypertension ([facility]) Unspecified essential hypertension Age-related osteoporosis without current pathological fracture ([facility]) Primary osteoarthritis involving multiple joints Class 2 severe obesity due to excess calories with serious comorbidity and body mass index (BMI) of36.0 to 36.9 in adult ([facility])- Primary Essential (primary) hypertension ([facility]) Unspecified essential hypertension Acute non-recurrent pansinusitis Encounter for screening mammogram for malignant neoplasm of breast Fibromyalgia Unspecified myalgia and myositis Polyneuropathy in diseases classified elsewhere ([facility]) ODALYS (generalized anxiety disorder) ([facility]) Generalized anxiety disorder documented in this encounter [facility]* Diagnosis Benign essential HTN ([facility])- Primary Gastroesophageal reflux disease without esophagitis Esophageal reflux Stage 3 chronic kidney disease, unspecified whether stage 3a or 3b CKD (HCC) ([facility]) Class 2 severe obesity due to excess calories with serious comorbidity and body mass index (BMI) of36.0 to 36.9 in adult ([facility]) Menopause Symptomatic menopausal or female climacteric states Encounter for screening mammogram for malignant neoplasm of breast Encounter for subsequent annual wellness visit (AWV) in Medicare patient- Primary Benign essential HTN ([facility]) Gastroesophageal reflux disease without esophagitis Esophageal reflux Stage 3 chronic kidney disease, unspecified whether stage 3a or 3b CKD (HCC) ([facility]) 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, without long-term current use of insulin, unspecified whether stage 3a or 3b CKD (HCC) ([facility]) Acute pain of right shoulder- Primary Class 2 severe obesity due to excess calories with serious comorbidity and body mass index (BMI) of36.0 to 36.9 in adult ([facility]) Primary osteoarthritis involving multiple joints Preoperative clearance- Primary Unspecified pre-operative examination Type 2 diabetes mellitus with diabetic chronic kidney disease ([facility]) Malignant neoplasm of unspecified ovary ([facility]) Polyneuropathy in diseases classified elsewhere ([facility]) Secondary hyperparathyroidism of renal origin ([facility]) Secondary hyperparathyroidism (of renal origin) Hypertensive chronic kidney disease with stage 1 through stage 4 chronic kidney disease, or unspecified chronic kidney disease ([facility]) Age-related osteoporosis without current pathological fracture ([facility]) Essential (primary) hypertension ([facility]) Unspecified essential hypertension Type 2 diabetes mellitus with diabetic neuropathy, unspecified ([facility]) Secondary hyperparathyroidism ([facility]) Secondary hyperparathyroidism (of renal origin) Acute pain of right shoulder Essential (primary) hypertension ([facility])- Primary Unspecified essential hypertension Fibromyalgia Unspecified myalgia and myositis Polyneuropathy in diseases classified elsewhere ([facility]) ODALYS (generalized anxiety disorder) ([facility]) Generalized anxiety disorder Type 2 diabetes mellitus without complication, without long-term current use of insulin ([facility]) Fibromyalgia- Primary Unspecified myalgia and myositis Polyneuropathy in diseases classified elsewhere ([facility]) Class 2 severe obesity due to excess calories with serious comorbidity and body mass index (BMI) of36.0 to 36.9 in adult ([facility] [place]) ODALYS (generalized anxiety disorder) ([facility] [place]) Generalized anxiety disorder Essential (primary) hypertension ([facility]) Unspecified essential hypertension Age-related osteoporosis without current pathological fracture ([facility]) Primary osteoarthritis involving multiple joints Class 2 severe obesity due to excess calories with serious comorbidity and body mass index (BMI) of36.0 to 36.9 in adult ([facility] [place])- Primary Essential (primary) hypertension ([facility]) Unspecified essential hypertension Acute non-recurrent pansinusitis Encounter for screening mammogram for malignant neoplasm of breast Hematoma of frontal scalp, subsequent encounter- Primary Closed head injury, subsequent encounter Class 2 severe obesity due to excess calories with serious comorbidity and body mass index (BMI) of36.0 to 36.9 in adult ([facility]) Essential (primary) hypertension ([facility]) Unspecified essential hypertension documented in this encounter [facility] HealthcareEvaluation note* Diagnosis Benign essential HTN ([facility])- Primary Gastroesophageal reflux disease without esophagitis Esophageal reflux Stage 3 chronic kidney disease, unspecified whether stage 3a or 3b CKD (HCC) ([facility]) Class 2 severe obesity due to excess calories with serious comorbidity and body mass index (BMI) of36.0 to 36.9 in adult ([facility]) Menopause Symptomatic menopausal or female climacteric states Encounter for screening mammogram for malignant neoplasm of breast Encounter for subsequent annual wellness visit (AWV) in Medicare patient- Primary Benign essential HTN ([facility]) Gastroesophageal reflux disease without esophagitis Esophageal reflux Stage 3 chronic kidney disease, unspecified whether stage 3a or 3b CKD (HCC) ([facility]) 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, without long-term current use of insulin, unspecified whether stage 3a or 3b CKD (HCC) ([facility]) Acute pain of right shoulder- Primary Class 2 severe obesity due to excess calories with serious comorbidity and body mass index (BMI) of36.0 to 36.9 in adult ([facility]) Primary osteoarthritis involving multiple joints Preoperative clearance- Primary Unspecified pre-operative examination Type 2 diabetes mellitus with diabetic chronic kidney disease ([facility]) Malignant neoplasm of unspecified ovary ([facility] Polyneuropathy in diseases classified elsewhere ([facility]) Secondary hyperparathyroidism of renal origin ([facility]) Secondary hyperparathyroidism (of renal origin) Hypertensive chronic kidney disease with stage 1 through stage 4 chronic kidney disease, or unspecified chronic kidney disease ([facility]) Age-related osteoporosis without current pathological fracture ([facility] Essential (primary) hypertension ([facility]) Unspecified essential hypertension Type 2 diabetes mellitus with diabetic neuropathy, unspecified ([facility]) Secondary hyperparathyroidism ([facility]) Secondary hyperparathyroidism (of renal origin) Acute pain of right shoulder Essential (primary) hypertension ([facility])- Primary Unspecified essential hypertension Fibromyalgia Unspecified myalgia and myositis Polyneuropathy in diseases classified elsewhere ([facility]) ODALYS (generalized anxiety disorder) ([facility]) Generalized anxiety disorder Type 2 diabetes mellitus without complication, without long-term current use of insulin ([facility]) Fibromyalgia- Primary Unspecified myalgia and myositis Polyneuropathy in diseases classified elsewhere ([facility]) Class 2 severe obesity due to excess calories with serious comorbidity and body mass index (BMI) of36.0 to 36.9 in adult ([facility]) ODALYS (generalized anxiety disorder) ([facility]) Generalized anxiety disorder Essential (primary) hypertension ([facility]) Unspecified essential hypertension Age-related osteoporosis without current pathological fracture ([facility]) Primary osteoarthritis involving multiple joints Class 2 severe obesity due to excess calories with serious comorbidity and body mass index (BMI) of36.0 to 36.9 in adult ([facility])- Primary Essential (primary) hypertension ([facility]) Unspecified essential hypertension Acute non-recurrent pansinusitis Encounter for screening mammogram for malignant neoplasm of breast Hematoma of frontal scalp, subsequent encounter- Primary Closed head injury, subsequent encounter Class 2 severe obesity due to excess calories with serious comorbidity and body mass index (BMI) of36.0 to 36.9 in adult ([facility]) Essential (primary) hypertension ([facility]) Unspecified essential hypertension Hematoma of frontal scalp, sequela- Primary Morbid (severe) obesity due to excess calories ([facility]) Essential (primary) hypertension ([facility]) Unspecified essential hypertension Body mass index (BMI) 35.0-35.9, adult Type 2 diabetes mellitus with diabetic neuropathy, unspecified ([facility]) Malignant neoplasm of unspecified ovary ([facility]) Type 2 diabetes mellitus with diabetic cataract ([facility]) Type II or unspecified type diabetes mellitus with ophthalmic manifestations, not stated as uncontrolled Type 2 diabetes mellitus with diabetic chronic kidney disease ([facility]) Chronic kidney disease, stage 3a (HCC) ([facility]) Hypertensive chronic kidney disease with stage 1 through stage 4 chronic kidney disease, or unspecified chronic kidney disease ([facility]) Class 2 severe obesity due to excess calories with serious comorbidity and body mass index (BMI) of36.0 to 36.9 in adult ([facility]) Closed head injury, sequela Blurry vision, left eye Other specified visual disturbances documented in this encounter [facility]* Diagnosis Benign essential HTN ([facility])- Primary Gastroesophageal reflux disease without esophagitis Esophageal reflux Stage 3 chronic kidney disease, unspecified whether stage 3a or 3b CKD (HCC) ([facility]) Class 2 severe obesity due to excess calories with serious comorbidity and body mass index (BMI) of36.0 to 36.9 in adult ([facility]) Menopause Symptomatic menopausal or female climacteric states Encounter for screening mammogram for malignant neoplasm of breast Encounter for subsequent annual wellness visit (AWV) in Medicare patient- Primary Benign essential HTN ([facility]) Gastroesophageal reflux disease without esophagitis Esophageal reflux Stage 3 chronic kidney disease, unspecified whether stage 3a or 3b CKD (HCC) ([facility]) 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, without long-term current use of insulin, unspecified whether stage 3a or 3b CKD (HCC) ([facility]) Acute pain of right shoulder- Primary Class 2 severe obesity due to excess calories with serious comorbidity and body mass index (BMI) of36.0 to 36.9 in adult ([facility]) Primary osteoarthritis involving multiple joints Preoperative clearance- Primary Unspecified pre-operative examination Type 2 diabetes mellitus with diabetic chronic kidney disease ([facility]) Malignant neoplasm of unspecified ovary ([facility] Polyneuropathy in diseases classified elsewhere ([facility]) Secondary hyperparathyroidism of renal origin ([facility]) Secondary hyperparathyroidism (of renal origin) Hypertensive chronic kidney disease with stage 1 through stage 4 chronic kidney disease, or unspecified chronic kidney disease ([facility]) Age-related osteoporosis without current pathological fracture ([facility]) Essential (primary) hypertension ([facility]) Unspecified essential hypertension Type 2 diabetes mellitus with diabetic neuropathy, unspecified ([facility]) Secondary hyperparathyroidism ([facility]) Secondary hyperparathyroidism (of renal origin) Acute pain of right shoulder Essential (primary) hypertension ([facility])- Primary Unspecified essential hypertension Fibromyalgia Unspecified myalgia and myositis Polyneuropathy in diseases classified elsewhere ([facility]) ODALYS (generalized anxiety disorder) ([facility]) Generalized anxiety disorder Type 2 diabetes mellitus without complication, without long-term current use of insulin ([facility]) Fibromyalgia- Primary Unspecified myalgia and myositis Polyneuropathy in diseases classified elsewhere ([facility]) Class 2 severe obesity due to excess calories with serious comorbidity and body mass index (BMI) of36.0 to 36.9 in adult ([facility]) ODALYS (generalized anxiety disorder) ([facility] Generalized anxiety disorder Essential (primary) hypertension ([facility]) Unspecified essential hypertension Age-related osteoporosis without current pathological fracture ([facility]) Primary osteoarthritis involving multiple joints Class 2 severe obesity due to excess calories with serious comorbidity and body mass index (BMI) of36.0 to 36.9 in adult ([facility])- Primary Essential (primary) hypertension ([facility]) Unspecified essential hypertension Acute non-recurrent pansinusitis Encounter for screening mammogram for malignant neoplasm of breast Hematoma of frontal scalp, subsequent encounter- Primary Closed head injury, subsequent encounter Class 2 severe obesity due to excess calories with serious comorbidity and body mass index (BMI) of36.0 to 36.9 in adult ([facility]) Essential (primary) hypertension ([facility]) Unspecified essential hypertension Hematoma of frontal scalp, sequela- Primary Morbid (severe) obesity due to excess calories ([facility]) Essential (primary) hypertension ([facility]) Unspecified essential hypertension Body mass index (BMI) 35.0-35.9, adult Type 2 diabetes mellitus with diabetic neuropathy, unspecified ([facility]/HCC) Malignant neoplasm of unspecified ovary ([facility]/HCC) Type 2 diabetes mellitus with diabetic cataract ([facility]) Type II or unspecified type diabetes mellitus with ophthalmic manifestations, not stated as uncontrolled Type 2 diabetes mellitus with diabetic chronic kidney disease ([facility]/HCC) Chronic kidney disease, stage 3a (HCC) ([facility]/HCC) Hypertensive chronic kidney disease with stage 1 through stage 4 chronic kidney disease, or unspecified chronic kidney disease (CMS/HCC) Class 2 severe obesity due to excess calories with serious comorbidity and body mass index (BMI) of36.0 to 36.9 in adult ([facility]) Closed head injury, sequela Blurry vision, left eye Other specified visual disturbances Mixed hyperlipidemia ([facility]) Mixed hyperlipidemia documented in this encounter [facility]* Diagnosis Benign essential HTN (CMS/HCC)- Primary Gastroesophageal reflux disease without esophagitis Esophageal reflux Stage 3 chronic kidney disease, unspecified whether stage 3a or 3b CKD (HCC) ([facility]) Class 2 severe obesity due to excess calories with serious comorbidity and body mass index (BMI) of36.0 to 36.9 in adult ([facility]) Menopause Symptomatic menopausal or female climacteric states Encounter for screening mammogram for malignant neoplasm of breast Encounter for subsequent annual wellness visit (AWV) in Medicare patient- Primary Benign essential HTN (CMS/HCC) Gastroesophageal reflux disease without esophagitis Esophageal reflux Stage 3 chronic kidney disease, unspecified whether stage 3a or 3b CKD (HCC) ([facility]) 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, without long-term current use of insulin, unspecified whether stage 3a or 3b CKD (HCC) (CMS/HCC) Acute pain of right shoulder- Primary Class 2 severe obesity due to excess calories with serious comorbidity and body mass index (BMI) of36.0 to 36.9 in adult ([facility]) Primary osteoarthritis involving multiple joints Preoperative clearance- Primary Unspecified pre-operative examination Type 2 diabetes mellitus with diabetic chronic kidney disease (CMS/HCC) Malignant neoplasm of unspecified ovary ([facility]/HCC) Polyneuropathy in diseases classified elsewhere ([facility]) Secondary hyperparathyroidism of renal origin ([facility]/HCC) Secondary hyperparathyroidism (of renal origin) Hypertensive chronic kidney disease with stage 1 through stage 4 chronic kidney disease, or unspecified chronic kidney disease ([facility]) Age-related osteoporosis without current pathological fracture ([facility]) Essential (primary) hypertension ([facility]) Unspecified essential hypertension Type 2 diabetes mellitus with diabetic neuropathy, unspecified ([facility]) Secondary hyperparathyroidism ([facility]) Secondary hyperparathyroidism (of renal origin) Acute pain of right shoulder Essential (primary) hypertension ([facility])- Primary Unspecified essential hypertension Fibromyalgia Unspecified myalgia and myositis Polyneuropathy in diseases classified elsewhere ([facility]) ODALYS (generalized anxiety disorder) ([facility]) Generalized anxiety disorder Type 2 diabetes mellitus without complication, without long-term current use of insulin ([facility]) Fibromyalgia- Primary Unspecified myalgia and myositis Polyneuropathy in diseases classified elsewhere ([facility]) Class 2 severe obesity due to excess calories with serious comorbidity and body mass index (BMI) of36.0 to 36.9 in adult ([facility]) ODALYS (generalized anxiety disorder) ([facility]) Generalized anxiety disorder Essential (primary) hypertension ([facility]) Unspecified essential hypertension Age-related osteoporosis without current pathological fracture ([facility]) Primary osteoarthritis involving multiple joints Class 2 severe obesity due to excess calories with serious comorbidity and body mass index (BMI) of36.0 to 36.9 in adult ([facility])- Primary Essential (primary) hypertension ([facility]) Unspecified essential hypertension Acute non-recurrent pansinusitis Encounter for screening mammogram for malignant neoplasm of breast Hematoma of frontal scalp, subsequent encounter- Primary Closed head injury, subsequent encounter Class 2 severe obesity due to excess calories with serious comorbidity and body mass index (BMI) of36.0 to 36.9 in adult ([facility]) Essential (primary) hypertension ([facility]) Unspecified essential hypertension Hematoma of frontal scalp, sequela- Primary Morbid (severe) obesity due to excess calories ([facility]) Essential (primary) hypertension ([facility]) Unspecified essential hypertension Body mass index (BMI) 35.0-35.9, adult Type 2 diabetes mellitus with diabetic neuropathy, unspecified ([facility]) Malignant neoplasm of unspecified ovary ([facility]) Type 2 diabetes mellitus with diabetic cataract ([facility]) Type II or unspecified type diabetes mellitus with ophthalmic manifestations, not stated as uncontrolled Type 2 diabetes mellitus with diabetic chronic kidney disease ([facility]) Chronic kidney disease, stage 3a (HCC) (CMS/HCC) Hypertensive chronic kidney disease with stage 1 through stage 4 chronic kidney disease, or unspecified chronic kidney disease (CMS/HCC) Class 2 severe obesity due to excess calories with serious comorbidity and body mass index (BMI) of36.0 to 36.9 in adult ([facility]) Closed head injury, sequela Blurry vision, left eye Other specified visual disturbances Pre-operative clearance- Primary Unspecified pre-operative examination Class 2 severe obesity due to excess calories with serious comorbidity and body mass index (BMI) of36.0 to 36.9 in adult ([facility]) Body mass index (BMI) 35.0-35.9, adult Closed head injury, sequela Hematoma of frontal scalp, sequela Age-related osteoporosis without current pathological fracture ([facility]) Essential (primary) hypertension ([facility]/HCC) Unspecified essential hypertension Gastroesophageal reflux disease without esophagitis Esophageal reflux Type 2 diabetes mellitus without complication, without long-term current use of insulin ([facility]) Blurry vision, left eye Other specified visual disturbances documented in this encounter [facility]* Diagnosis Rotator cuff arthropathy of right shoulder- Primary Preop testing- Primary Unspecified pre-operative examination Liver disease Unspecified disorder of liver Rotator cuff arthropathy of right shoulder documented in this encounter [facility] [place]* Diagnosis Benign essential HTN (CMS/HCC)- Primary Gastroesophageal reflux disease without esophagitis Esophageal reflux Stage 3 chronic kidney disease, unspecified whether stage 3a or 3b CKD (HCC) ([facility]/HCC) Class 2 severe obesity due to excess calories with serious comorbidity and body mass index (BMI) of36.0 to 36.9 in adult ([facility]) Menopause Symptomatic menopausal or female climacteric states Encounter for screening mammogram for malignant neoplasm of breast Encounter for subsequent annual wellness visit (AWV) in Medicare patient- Primary Benign essential HTN (CMS/HCC) Gastroesophageal reflux disease without esophagitis Esophageal reflux Stage 3 chronic kidney disease, unspecified whether stage 3a or 3b CKD (HCC) ([facility]) 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, without long-term current use of insulin, unspecified whether stage 3a or 3b CKD (HCC) (CMS/HCC) Acute pain of right shoulder- Primary Class 2 severe obesity due to excess calories with serious comorbidity and body mass index (BMI) of36.0 to 36.9 in adult ([facility]) Primary osteoarthritis involving multiple joints Preoperative clearance- Primary Unspecified pre-operative examination Type 2 diabetes mellitus with diabetic chronic kidney disease ([facility]) Malignant neoplasm of unspecified ovary ([facility]) Polyneuropathy in diseases classified elsewhere ([facility]) Secondary hyperparathyroidism of renal origin ([facility]) Secondary hyperparathyroidism (of renal origin) Hypertensive chronic kidney disease with stage 1 through stage 4 chronic kidney disease, or unspecified chronic kidney disease ([facility]) Age-related osteoporosis without current pathological fracture ([facility]) Essential (primary) hypertension ([facility]) Unspecified essential hypertension Type 2 diabetes mellitus with diabetic neuropathy, unspecified ([facility]) Secondary hyperparathyroidism ([facility]) Secondary hyperparathyroidism (of renal origin) Acute pain of right shoulder Essential (primary) hypertension ([facility])- Primary Unspecified essential hypertension Fibromyalgia Unspecified myalgia and myositis Polyneuropathy in diseases classified elsewhere ([facility]) ODALYS (generalized anxiety disorder) ([facility]) Generalized anxiety disorder Type 2 diabetes mellitus without complication, without long-term current use of insulin ([facility]) Fibromyalgia- Primary Unspecified myalgia and myositis Polyneuropathy in diseases classified elsewhere ([facility]) Class 2 severe obesity due to excess calories with serious comorbidity and body mass index (BMI) of36.0 to 36.9 in adult ([facility] [place]) ODALYS (generalized anxiety disorder) ([facility] Generalized anxiety disorder Essential (primary) hypertension ([facility]) Unspecified essential hypertension Age-related osteoporosis without current pathological fracture ([facility] [place]) Primary osteoarthritis involving multiple joints Class 2 severe obesity due to excess calories with serious comorbidity and body mass index (BMI) of36.0 to 36.9 in adult ([facility] [place])- Primary Essential (primary) hypertension ([facility]) Unspecified essential hypertension Acute non-recurrent pansinusitis Encounter for screening mammogram for malignant neoplasm of breast Hematoma of frontal scalp, subsequent encounter- Primary Closed head injury, subsequent encounter Class 2 severe obesity due to excess calories with serious comorbidity and body mass index (BMI) of36.0 to 36.9 in adult ([facility] [place]) Essential (primary) hypertension ([facility]) Unspecified essential hypertension Hematoma of frontal scalp, sequela- Primary Morbid (severe) obesity due to excess calories ([facility]) Essential (primary) hypertension ([facility]) Unspecified essential hypertension Body mass index (BMI) 35.0-35.9, adult Type 2 diabetes mellitus with diabetic neuropathy, unspecified ([facility]) Malignant neoplasm of unspecified ovary ([facility]) Type 2 diabetes mellitus with diabetic cataract ([facility]) Type II or unspecified type diabetes mellitus with ophthalmic manifestations, not stated as uncontrolled Type 2 diabetes mellitus with diabetic chronic kidney disease ([facility]) Chronic kidney disease, stage 3a (HCC) ([facility]) Hypertensive chronic kidney disease with stage 1 through stage 4 chronic kidney disease, or unspecified chronic kidney disease ([facility]) Class 2 severe obesity due to excess calories with serious comorbidity and body mass index (BMI) of36.0 to 36.9 in adult ([facility]) Closed head injury, sequela Blurry vision, left eye Other specified visual disturbances Pre-operative clearance- Primary Unspecified pre-operative examination Class 2 severe obesity due to excess calories with serious comorbidity and body mass index (BMI) of36.0 to 36.9 in adult ([facility] [place]) Body mass index (BMI) 35.0-35.9, adult Closed head injury, sequela Hematoma of frontal scalp, sequela Age-related osteoporosis without current pathological fracture ([facility]) Essential (primary) hypertension ([facility]) Unspecified essential hypertension Gastroesophageal reflux disease without esophagitis Esophageal reflux Type 2 diabetes mellitus without complication, without long-term current use of insulin ([facility]) Blurry vision, left eye Other specified visual disturbances Fibromyalgia Unspecified myalgia and myositis Polyneuropathy in diseases classified elsewhere ([facility]) ODALYS (generalized anxiety disorder) ([facility]) Generalized anxiety disorder documented in this encounter [facility] HealthcareEvaluation note* Diagnosis Benign essential HTN ([facility])- Primary Gastroesophageal reflux disease without esophagitis Esophageal reflux Stage 3 chronic kidney disease, unspecified whether stage 3a or 3b CKD (HCC) ([facility]) Class 2 severe obesity due to excess calories with serious comorbidity and body mass index (BMI) of36.0 to 36.9 in adult ([facility]) Menopause Symptomatic menopausal or female climacteric states Encounter for screening mammogram for malignant neoplasm of breast Encounter for subsequent annual wellness visit (AWV) in Medicare patient- Primary Benign essential HTN ([facility]) Gastroesophageal reflux disease without esophagitis Esophageal reflux Stage 3 chronic kidney disease, unspecified whether stage 3a or 3b CKD (HCC) ([facility]) 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, without long-term current use of insulin, unspecified whether stage 3a or 3b CKD (HCC) ([facility]) Acute pain of right shoulder- Primary Class 2 severe obesity due to excess calories with serious comorbidity and body mass index (BMI) of36.0 to 36.9 in adult ([facility]) Primary osteoarthritis involving multiple joints Preoperative clearance- Primary Unspecified pre-operative examination Type 2 diabetes mellitus with diabetic chronic kidney disease ([facility]) Malignant neoplasm of unspecified ovary ([facility] Polyneuropathy in diseases classified elsewhere ([facility]) Secondary hyperparathyroidism of renal origin ([facility]) Secondary hyperparathyroidism (of renal origin) Hypertensive chronic kidney disease with stage 1 through stage 4 chronic kidney disease, or unspecified chronic kidney disease ([facility]) Age-related osteoporosis without current pathological fracture ([facility] Essential (primary) hypertension ([facility]) Unspecified essential hypertension Type 2 diabetes mellitus with diabetic neuropathy, unspecified ([facility]) Secondary hyperparathyroidism ([facility]) Secondary hyperparathyroidism (of renal origin) Acute pain of right shoulder Essential (primary) hypertension ([facility])- Primary Unspecified essential hypertension Fibromyalgia Unspecified myalgia and myositis Polyneuropathy in diseases classified elsewhere ([facility]) ODALYS (generalized anxiety disorder) ([facility]) Generalized anxiety disorder Type 2 diabetes mellitus without complication, without long-term current use of insulin ([facility]) Fibromyalgia- Primary Unspecified myalgia and myositis Polyneuropathy in diseases classified elsewhere ([facility]) Class 2 severe obesity due to excess calories with serious comorbidity and body mass index (BMI) of36.0 to 36.9 in adult ([facility]) ODALYS (generalized anxiety disorder) ([facility]) Generalized anxiety disorder Essential (primary) hypertension ([facility]) Unspecified essential hypertension Age-related osteoporosis without current pathological fracture ([facility]) Primary osteoarthritis involving multiple joints Class 2 severe obesity due to excess calories with serious comorbidity and body mass index (BMI) of36.0 to 36.9 in adult ([facility] [place])- Primary Essential (primary) hypertension ([facility]) Unspecified essential hypertension Acute non-recurrent pansinusitis Encounter for screening mammogram for malignant neoplasm of breast Hematoma of frontal scalp, subsequent encounter- Primary Closed head injury, subsequent encounter Class 2 severe obesity due to excess calories with serious comorbidity and body mass index (BMI) of36.0 to 36.9 in adult ([facility]) Essential (primary) hypertension ([facility]) Unspecified essential hypertension Hematoma of frontal scalp, sequela- Primary Morbid (severe) obesity due to excess calories ([facility]) Essential (primary) hypertension ([facility]) Unspecified essential hypertension Body mass index (BMI) 35.0-35.9, adult Type 2 diabetes mellitus with diabetic neuropathy, unspecified ([facility]) Malignant neoplasm of unspecified ovary ([facility]) Type 2 diabetes mellitus with diabetic cataract ([facility]) Type II or unspecified type diabetes mellitus with ophthalmic manifestations, not stated as uncontrolled Type 2 diabetes mellitus with diabetic chronic kidney disease ([facility]) Chronic kidney disease, stage 3a ([facility]) ([facility]) Hypertensive chronic kidney disease with stage 1 through stage 4 chronic kidney disease, or unspecified chronic kidney disease ([facility]) Class 2 severe obesity due to excess calories with serious comorbidity and body mass index (BMI) of36.0 to 36.9 in adult ([facility]) Closed head injury, sequela Blurry vision, left eye Other specified visual disturbances Pre-operative clearance- Primary Unspecified pre-operative examination Class 2 severe obesity due to excess calories with serious comorbidity and body mass index (BMI) of36.0 to 36.9 in adult ([facility]) Body mass index (BMI) 35.0-35.9, adult Closed head injury, sequela Hematoma of frontal scalp, sequela Age-related osteoporosis without current pathological fracture ([facility]) Essential (primary) hypertension ([facility]) Unspecified essential hypertension Gastroesophageal reflux disease without esophagitis Esophageal reflux Type 2 diabetes mellitus without complication, without long-term current use of insulin ([facility]) Blurry vision, left eye Other specified visual disturbances Dermatophytosis of nail- Primary Dystrophic nail Other specified disease of nail Pain around toenail, right foot Pain around toenail, left foot documented in this encounter [facility] HealthcareEvaluation note* Diagnosis S/P reverse total shoulder arthroplasty, right- Primary documented in this encounter [facility] [place] [facility]* Diagnosis S/P reverse total shoulder arthroplasty, right- Primary documented in this encounter [facility] [place] [facility]* Diagnosis Benign essential HTN ([facility])- Primary Gastroesophageal reflux disease without esophagitis Esophageal reflux Stage 3 chronic kidney disease, unspecified whether stage 3a or 3b CKD (HCC) ([facility]) Class 2 severe obesity due to excess calories with serious comorbidity and body mass index (BMI) of36.0 to 36.9 in adult ([facility]) Menopause Symptomatic menopausal or female climacteric states Encounter for screening mammogram for malignant neoplasm of breast Encounter for subsequent annual wellness visit (AWV) in Medicare patient- Primary Benign essential HTN ([facility]) Gastroesophageal reflux disease without esophagitis Esophageal reflux Stage 3 chronic kidney disease, unspecified whether stage 3a or 3b CKD (HCC) ([facility]) 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, without long-term current use of insulin, unspecified whether stage 3a or 3b CKD (HCC) ([facility]) Acute pain of right shoulder- Primary Class 2 severe obesity due to excess calories with serious comorbidity and body mass index (BMI) of36.0 to 36.9 in adult ([facility] [place]) Primary osteoarthritis involving multiple joints Preoperative clearance- Primary Unspecified pre-operative examination Type 2 diabetes mellitus with diabetic chronic kidney disease ([facility]) Malignant neoplasm of unspecified ovary ([facility]) Polyneuropathy in diseases classified elsewhere ([facility]) Secondary hyperparathyroidism of renal origin ([facility]) Secondary hyperparathyroidism (of renal origin) Hypertensive chronic kidney disease with stage 1 through stage 4 chronic kidney disease, or unspecified chronic kidney disease ([facility]) Age-related osteoporosis without current pathological fracture ([facility]) Essential (primary) hypertension ([facility]) Unspecified essential hypertension Type 2 diabetes mellitus with diabetic neuropathy, unspecified ([facility]) Secondary hyperparathyroidism ([facility]) Secondary hyperparathyroidism (of renal origin) Acute pain of right shoulder Essential (primary) hypertension ([facility])- Primary Unspecified essential hypertension Fibromyalgia Unspecified myalgia and myositis Polyneuropathy in diseases classified elsewhere ([facility]) ODALYS (generalized anxiety disorder) ([facility]) Generalized anxiety disorder Type 2 diabetes mellitus without complication, without long-term current use of insulin ([facility]) Fibromyalgia- Primary Unspecified myalgia and myositis Polyneuropathy in diseases classified elsewhere ([facility]) Class 2 severe obesity due to excess calories with serious comorbidity and body mass index (BMI) of36.0 to 36.9 in adult ([facility] ODALYS (generalized anxiety disorder) ([facility] [place]) Generalized anxiety disorder Essential (primary) hypertension ([facility]) Unspecified essential hypertension Age-related osteoporosis without current pathological fracture ([facility] [place]) Primary osteoarthritis involving multiple joints Class 2 severe obesity due to excess calories with serious comorbidity and body mass index (BMI) of36.0 to 36.9 in adult ([facility] [place])- Primary Essential (primary) hypertension ([facility]) Unspecified essential hypertension Acute non-recurrent pansinusitis Encounter for screening mammogram for malignant neoplasm of breast Hematoma of frontal scalp, subsequent encounter- Primary Closed head injury, subsequent encounter Class 2 severe obesity due to excess calories with serious comorbidity and body mass index (BMI) of36.0 to 36.9 in adult ([facility] [place]) Essential (primary) hypertension ([facility]) Unspecified essential hypertension Hematoma of frontal scalp, sequela- Primary Morbid (severe) obesity due to excess calories ([facility] [place]) Essential (primary) hypertension ([facility]) Unspecified essential hypertension Body mass index (BMI) 35.0-35.9, adult Type 2 diabetes mellitus with diabetic neuropathy, unspecified ([facility] [place]) Malignant neoplasm of unspecified ovary ([facility] [place]) Type 2 diabetes mellitus with diabetic cataract ([facility] [place]) Type II or unspecified type diabetes mellitus with ophthalmic manifestations, not stated as uncontrolled Type 2 diabetes mellitus with diabetic chronic kidney disease ([facility] [place]) Chronic kidney disease, stage 3a ([facility]) ([facility] [place]) Hypertensive chronic kidney disease with stage 1 through stage 4 chronic kidney disease, or unspecified chronic kidney disease ([facility] [place]) Class 2 severe obesity due to excess calories with serious comorbidity and body mass index (BMI) of36.0 to 36.9 in adult ([facility] [place]) Closed head injury, sequela Blurry vision, left eye Other specified visual disturbances Pre-operative clearance- Primary Unspecified pre-operative examination Class 2 severe obesity due to excess calories with serious comorbidity and body mass index (BMI) of36.0 to 36.9 in adult ([facility] [place]) Body mass index (BMI) 35.0-35.9, adult Closed head injury, sequela Hematoma of frontal scalp, sequela Age-related osteoporosis without current pathological fracture ([facility] [place]) Essential (primary) hypertension ([facility] [place]) Unspecified essential hypertension Gastroesophageal reflux disease without esophagitis Esophageal reflux Type 2 diabetes mellitus without complication, without long-term current use of insulin [facility] Blurry vision, left eye Other specified visual disturbances Acute pain of right shoulder- Primary Status post reverse total arthroplasty of right shoulder documented in this encounter [facility] HealthcareEvaluation note* Diagnosis Benign essential HTN ([facility])- Primary Gastroesophageal reflux disease without esophagitis Esophageal reflux Stage 3 chronic kidney disease, unspecified whether stage 3a or 3b CKD (HCC) ([facility]) Class 2 severe obesity due to excess calories with serious comorbidity and body mass index (BMI) of36.0 to 36.9 in adult ([facility]) Menopause Symptomatic menopausal or female climacteric states Encounter for screening mammogram for malignant neoplasm of breast Encounter for subsequent annual wellness visit (AWV) in Medicare patient- Primary Benign essential HTN ([facility]) Gastroesophageal reflux disease without esophagitis Esophageal reflux Stage 3 chronic kidney disease, unspecified whether stage 3a or 3b CKD (HCC) ([facility]) 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, without long-term current use of insulin, unspecified whether stage 3a or 3b CKD (HCC) ([facility]) Acute pain of right shoulder- Primary Class 2 severe obesity due to excess calories with serious comorbidity and body mass index (BMI) of36.0 to 36.9 in adult ([facility]) Primary osteoarthritis involving multiple joints Preoperative clearance- Primary Unspecified pre-operative examination Type 2 diabetes mellitus with diabetic chronic kidney disease ([facility]) Malignant neoplasm of unspecified ovary ([facility]) Polyneuropathy in diseases classified elsewhere ([facility]) Secondary hyperparathyroidism of renal origin ([facility]) Secondary hyperparathyroidism (of renal origin) Hypertensive chronic kidney disease with stage 1 through stage 4 chronic kidney disease, or unspecified chronic kidney disease ([facility]) Age-related osteoporosis without current pathological fracture ([facility]) Essential (primary) hypertension ([facility]) Unspecified essential hypertension Type 2 diabetes mellitus with diabetic neuropathy, unspecified ([facility]) Secondary hyperparathyroidism ([facility]) Secondary hyperparathyroidism (of renal origin) Acute pain of right shoulder Essential (primary) hypertension ([facility])- Primary Unspecified essential hypertension Fibromyalgia Unspecified myalgia and myositis Polyneuropathy in diseases classified elsewhere ([facility]) ODALYS (generalized anxiety disorder) ([facility]) Generalized anxiety disorder Type 2 diabetes mellitus without complication, without long-term current use of insulin ([facility]) Fibromyalgia- Primary Unspecified myalgia and myositis Polyneuropathy in diseases classified elsewhere ([facility]) Class 2 severe obesity due to excess calories with serious comorbidity and body mass index (BMI) of36.0 to 36.9 in adult ([facility]) ODALYS (generalized anxiety disorder) ([facility] Generalized anxiety disorder Essential (primary) hypertension ([facility]) Unspecified essential hypertension Age-related osteoporosis without current pathological fracture ([facility]) Primary osteoarthritis involving multiple joints Class 2 severe obesity due to excess calories with serious comorbidity and body mass index (BMI) of36.0 to 36.9 in adult ([facility] [place])- Primary Essential (primary) hypertension ([facility]) Unspecified essential hypertension Acute non-recurrent pansinusitis Encounter for screening mammogram for malignant neoplasm of breast Hematoma of frontal scalp, subsequent encounter- Primary Closed head injury, subsequent encounter Class 2 severe obesity due to excess calories with serious comorbidity and body mass index (BMI) of36.0 to 36.9 in adult ([facility] [place]) Essential (primary) hypertension ([facility]) Unspecified essential hypertension Hematoma of frontal scalp, sequela- Primary Morbid (severe) obesity due to excess calories ([facility]) Essential (primary) hypertension ([facility]) Unspecified essential hypertension Body mass index (BMI) 35.0-35.9, adult Type 2 diabetes mellitus with diabetic neuropathy, unspecified ([facility]) Malignant neoplasm of unspecified ovary ([facility]) Type 2 diabetes mellitus with diabetic cataract ([facility]) Type II or unspecified type diabetes mellitus with ophthalmic manifestations, not stated as uncontrolled Type 2 diabetes mellitus with diabetic chronic kidney disease ([facility]) Chronic kidney disease, stage 3a ([facility]) ([facility]) Hypertensive chronic kidney disease with stage 1 through stage 4 chronic kidney disease, or unspecified chronic kidney disease ([facility]) Class 2 severe obesity due to excess calories with serious comorbidity and body mass index (BMI) of36.0 to 36.9 in adult ([facility]) Closed head injury, sequela Blurry vision, left eye Other specified visual disturbances Pre-operative clearance- Primary Unspecified pre-operative examination Class 2 severe obesity due to excess calories with serious comorbidity and body mass index (BMI) of36.0 to 36.9 in adult ([facility]) Body mass index (BMI) 35.0-35.9, adult Closed [...] of right shoulder documented in this encounter [facility] HealthcareEvaluation note* Diagnosis Benign essential HTN (CMS/HCC)- Primary Gastroesophageal reflux disease without esophagitis Esophageal reflux Stage 3 chronic kidney disease, unspecified whether stage 3a or 3b CKD (HCC) (CMS/HCC) Class 2 severe obesity due to excess calories with serious comorbidity and body mass index (BMI) of36.0 to 36.9 in adult (CMS/[facility]) Menopause Symptomatic menopausal or female climacteric states [...] index (BMI) of36.0 to 36.9 in adult ([facility]) Primary osteoarthritis involving multiple joints Preoperative clearance- Primary Unspecified pre-operative examination Type 2 diabetes mellitus with diabetic chronic kidney disease (CMS/HCC) Malignant neoplasm of unspecified ovary (CMS/HCC) Polyneuropathy in diseases classified elsewhere ([facility]/HCC) Secondary hyperparathyroidism of renal origin (CMS/HCC) Secondary [...] and myositis Polyneuropathy in diseases classified elsewhere ([facility]) ODALYS (generalized anxiety disorder) ([facility]) Generalized anxiety disorder Type 2 diabetes mellitus without complication, without long-term current use of insulin ([facility]) Fibromyalgia- Primary Unspecified myalgia and myositis Polyneuropathy in diseases classified elsewhere ([facility]) Class 2 severe obesity due to excess calories with serious comorbidity and body mass index (BMI) of36.0 to 36.9 in adult ([facility]) ODALYS (generalized anxiety disorder) ([facility]) Generalized anxiety disorder Essential (primary) hypertension ([facility]) Unspecified essential hypertension Age-related osteoporosis without current pathological fracture ([facility]) Primary osteoarthritis involving multiple joints Class 2 severe obesity due to excess calories with serious comorbidity and body mass index (BMI) of36.0 to 36.9 in adult ([facility] [place])- Primary Essential (primary) hypertension ([facility]) Unspecified essential hypertension Acute non-recurrent pansinusitis Encounter for screening mammogram for malignant neoplasm of breast Hematoma of frontal scalp, subsequent encounter- Primary Closed head injury, subsequent encounter Class 2 severe obesity due to excess calories with serious comorbidity and body mass index (BMI) of36.0 to 36.9 in adult ([facility]) Essential (primary) hypertension ([facility]) Unspecified essential hypertension Hematoma of frontal scalp, sequela- Primary Morbid (severe) obesity due to excess calories ([facility]) Essential (primary) hypertension ([facility]) Unspecified essential hypertension Body mass index (BMI) 35.0-35.9, adult Type 2 diabetes mellitus with diabetic neuropathy, unspecified ([facility]) Malignant neoplasm of unspecified ovary ([facility]) Type 2 diabetes mellitus with diabetic cataract ([facility]) Type II or unspecified type diabetes mellitus with ophthalmic manifestations, not stated as uncontrolled Type 2 diabetes mellitus with diabetic chronic kidney disease ([facility]) Chronic kidney disease, stage 3a (HCC) ([facility]) Hypertensive chronic kidney disease with stage 1 through stage 4 chronic kidney disease, or unspecified chronic kidney disease ([facility]) Class 2 severe obesity due to excess calories with serious comorbidity and body mass index (BMI) of36.0 to 36.9 in adult ([facility]) Closed head injury, sequela Blurry vision, left eye Other specified visual disturbances Pre-operative clearance- Primary Unspecified pre-operative examination Class 2 severe obesity due to excess calories with serious comorbidity and body mass index (BMI) of36.0 to 36.9 in adult ([facility]) Body mass index (BMI) 35.0-35.9, adult Closed head injury, sequela Hematoma of frontal scalp, sequela Age-related osteoporosis without current pathological fracture ([facility]) Essential (primary) hypertension ([facility]) Unspecified essential hypertension Gastroesophageal reflux disease without esophagitis Esophageal reflux Type 2 diabetes mellitus without complication, without long-term current use of insulin ([facility]) Blurry vision, left eye Other specified visual disturbances Acute pain of right shoulder- Primary Status post reverse total arthroplasty of right shoulder Shoulder stiffness, right documented in this encounter [facility] HealthcareEvaluation note* Diagnosis Benign essential HTN ([facility])- Primary Gastroesophageal reflux disease without esophagitis Esophageal reflux Stage 3 chronic kidney disease, unspecified whether stage 3a or 3b CKD (HCC) ([facility]) Class 2 severe obesity due to excess calories with serious comorbidity and body mass index (BMI) of36.0 to 36.9 in adult ([facility]) Menopause Symptomatic menopausal or female climacteric states Encounter for screening mammogram for malignant neoplasm of breast Encounter for subsequent annual wellness visit (AWV) in Medicare patient- Primary Benign essential HTN ([facility]) Gastroesophageal reflux disease without esophagitis Esophageal reflux Stage 3 chronic kidney disease, unspecified whether stage 3a or 3b CKD (HCC) ([facility]) 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, without long-term current use of insulin, unspecified whether stage 3a or 3b CKD (HCC) ([facility]) Acute pain of right shoulder- Primary Class 2 severe obesity due to excess calories with serious comorbidity and body mass index (BMI) of36.0 to 36.9 in adult ([facility]) Primary osteoarthritis involving multiple joints Preoperative clearance- Primary Unspecified pre-operative examination Type 2 diabetes mellitus with diabetic chronic kidney disease ([facility]) Malignant neoplasm of unspecified ovary ([facility] Polyneuropathy in diseases classified elsewhere ([facility]) Secondary hyperparathyroidism of renal origin ([facility]) Secondary hyperparathyroidism (of renal origin) Hypertensive chronic kidney disease with stage 1 through stage 4 chronic kidney disease, or unspecified chronic kidney disease ([facility]) Age-related osteoporosis without current pathological fracture ([facility] Essential (primary) hypertension ([facility]) Unspecified essential hypertension Type 2 diabetes mellitus with diabetic neuropathy, unspecified ([facility]) Secondary hyperparathyroidism ([facility]) Secondary hyperparathyroidism (of renal origin) Acute pain of right shoulder Essential (primary) hypertension ([facility])- Primary Unspecified essential hypertension Fibromyalgia Unspecified myalgia and myositis Polyneuropathy in diseases classified elsewhere ([facility]) ODALYS (generalized anxiety disorder) ([facility]) Generalized anxiety disorder Type 2 diabetes mellitus without complication, without long-term current use of insulin ([facility]) Fibromyalgia- Primary Unspecified myalgia and myositis Polyneuropathy in diseases classified elsewhere ([facility]) Class 2 severe obesity due to excess calories with serious comorbidity and body mass index (BMI) of36.0 to 36.9 in adult ([facility]) ODALYS (generalized anxiety disorder) ([facility]) Generalized anxiety disorder Essential (primary) hypertension ([facility]) Unspecified essential hypertension Age-related osteoporosis without current pathological fracture ([facility]) Primary osteoarthritis involving multiple joints Class 2 severe obesity due to excess calories with serious comorbidity and body mass index (BMI) of36.0 to 36.9 in adult ([facility])- Primary Essential (primary) hypertension ([facility]) Unspecified essential hypertension Acute non-recurrent pansinusitis Encounter for screening mammogram for malignant neoplasm of breast Hematoma of frontal scalp, subsequent encounter- Primary Closed head injury, subsequent encounter Class 2 severe obesity due to excess calories with serious comorbidity and body mass index (BMI) of36.0 to 36.9 in adult ([facility]) Essential (primary) hypertension ([facility]) Unspecified essential hypertension Hematoma of frontal scalp, sequela- Primary Morbid (severe) obesity due to excess calories ([facility]) Essential (primary) hypertension ([facility]) Unspecified essential hypertension Body mass index (BMI) 35.0-35.9, adult Type 2 diabetes mellitus with diabetic neuropathy, unspecified ([facility]) Malignant neoplasm of unspecified ovary ([facility]) Type 2 diabetes mellitus with diabetic cataract ([facility]) Type II or unspecified type diabetes mellitus with ophthalmic manifestations, not stated as uncontrolled Type 2 diabetes mellitus with diabetic chronic kidney disease ([facility]) Chronic kidney disease, stage 3a (HCC) ([facility]) Hypertensive chronic kidney disease with stage 1 through stage 4 chronic kidney disease, or unspecified chronic kidney disease (CMS/HCC) Class 2 severe obesity due to excess calories with serious comorbidity and body mass index (BMI) of36.0 to 36.9 in adult ([facility]) Closed head injury, sequela Blurry vision, left eye Other specified visual disturbances Pre-operative clearance- Primary Unspecified pre-operative examination Class 2 severe obesity due to excess calories with serious comorbidity and body mass index (BMI) of36.0 to 36.9 in adult ([facility]) Body mass index (BMI) 35.0-35.9, adult Closed head injury, sequela Hematoma of frontal scalp, sequela Age-related osteoporosis without current pathological fracture ([facility]) Essential (primary) hypertension ([facility]) Unspecified essential hypertension Gastroesophageal reflux disease without esophagitis Esophageal reflux Type 2 diabetes mellitus without complication, without long-term current use of insulin (CMS/[facility]) Blurry vision, left eye Other specified visual disturbances Acute pain of right shoulder- Primary Status post reverse total arthroplasty of right shoulder Shoulder stiffness, right documented in this encounter [facility] HealthcareEvaluation note* Diagnosis Benign essential HTN (CMS/HCC)- Primary Gastroesophageal reflux disease without esophagitis Esophageal reflux Stage 3 chronic kidney disease, unspecified whether stage 3a or 3b CKD (HCC) ([facility]) Class 2 severe obesity due to excess calories with serious comorbidity and body mass index (BMI) of36.0 to 36.9 in adult ([facility]) Menopause Symptomatic menopausal or female climacteric states Encounter for screening mammogram for malignant neoplasm of breast Encounter for subsequent annual wellness visit (AWV) in Medicare patient- Primary Benign essential HTN (CMS/HCC) Gastroesophageal reflux disease without esophagitis Esophageal reflux Stage 3 chronic kidney disease, unspecified whether stage 3a or 3b CKD (HCC) ([facility]/HCC) 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, without long-term current use of insulin, unspecified whether stage 3a or 3b CKD (HCC) (CMS/HCC) Acute pain of right shoulder- Primary Class 2 severe obesity due to excess calories with serious comorbidity and body mass index (BMI) of36.0 to 36.9 in adult ([facility]) Primary osteoarthritis involving multiple joints Preoperative clearance- Primary Unspecified pre-operative examination Type 2 diabetes mellitus with diabetic chronic kidney disease (CMS/HCC) Malignant neoplasm of unspecified ovary (CMS/HCC) Polyneuropathy in diseases classified elsewhere ([facility]) Secondary hyperparathyroidism of renal origin ([facility]) Secondary hyperparathyroidism (of renal origin) Hypertensive chronic kidney disease with stage 1 through stage 4 chronic kidney disease, or unspecified chronic kidney disease ([facility]) Age-related osteoporosis without current pathological fracture ([facility] Essential (primary) hypertension ([facility]) Unspecified essential hypertension Type 2 diabetes mellitus with diabetic neuropathy, unspecified ([facility]) Secondary hyperparathyroidism ([facility]) Secondary hyperparathyroidism (of renal origin) Acute pain of right shoulder Essential (primary) hypertension ([facility])- Primary Unspecified essential hypertension Fibromyalgia Unspecified myalgia and myositis Polyneuropathy in diseases classified elsewhere ([facility]) ODALYS (generalized anxiety disorder) ([facility]) Generalized anxiety disorder Type 2 diabetes mellitus without complication, without long-term current use of insulin ([facility]) Fibromyalgia- Primary Unspecified myalgia and myositis Polyneuropathy in diseases classified elsewhere ([facility]) Class 2 severe obesity due to excess calories with serious comorbidity and body mass index (BMI) of36.0 to 36.9 in adult ([facility]) ODALYS (generalized anxiety disorder) ([facility]) Generalized anxiety disorder Essential (primary) hypertension ([facility]) Unspecified essential hypertension Age-related osteoporosis without current pathological fracture ([facility]) Primary osteoarthritis involving multiple joints Class 2 severe obesity due to excess calories with serious comorbidity and body mass index (BMI) of36.0 to 36.9 in adult ([facility])- Primary Essential (primary) hypertension ([facility]) Unspecified essential hypertension Acute non-recurrent pansinusitis Encounter for screening mammogram for malignant neoplasm of breast Hematoma of frontal scalp, subsequent encounter- Primary Closed head injury, subsequent encounter Class 2 severe obesity due to excess calories with serious comorbidity and body mass index (BMI) of36.0 to 36.9 in adult ([facility]) Essential (primary) hypertension ([facility]) Unspecified essential hypertension Hematoma of frontal scalp, sequela- Primary Morbid (severe) obesity due to excess calories ([facility]) Essential (primary) hypertension ([facility]) Unspecified essential hypertension Body mass index (BMI) 35.0-35.9, adult Type 2 diabetes mellitus with diabetic neuropathy, unspecified ([facility]) Malignant neoplasm of unspecified ovary ([facility]) Type 2 diabetes mellitus with diabetic cataract ([facility]) Type II or unspecified type diabetes mellitus with ophthalmic manifestations, not stated as uncontrolled Type 2 diabetes mellitus with diabetic chronic kidney disease ([facility]) Chronic kidney disease, stage 3a (HCC) ([facility]) Hypertensive chronic kidney disease with stage 1 through stage 4 chronic kidney disease, or unspecified chronic kidney disease ([facility]) Class 2 severe obesity due to excess calories with serious comorbidity and body mass index (BMI) of36.0 to 36.9 in adult ([facility]) Closed head injury, sequela Blurry vision, left eye Other specified visual disturbances Pre-operative clearance- Primary Unspecified pre-operative examination Class 2 severe obesity due to excess calories with serious comorbidity and body mass index (BMI) of36.0 to 36.9 in adult ([facility]) Body mass index (BMI) 35.0-35.9, adult Closed head injury, sequela Hematoma of frontal scalp, sequela Age-related osteoporosis without current pathological fracture ([facility]) Essential (primary) hypertension ([facility]) Unspecified essential hypertension Gastroesophageal reflux disease without esophagitis Esophageal reflux Type 2 diabetes mellitus without complication, without long-term current use of insulin ([facility]) Blurry vision, left eye Other specified visual disturbances Encounter for subsequent annual wellness visit (AWV) in Medicare patient- Primary Type 2 diabetes mellitus with diabetic neuropathy, without long-term current use of insulin ([facility]) Essential (primary) hypertension ([facility]) Unspecified essential hypertension Hypertensive chronic kidney disease with stage 1 through stage 4 chronic kidney disease, or unspecified chronic kidney disease ([facility]) Gastroesophageal reflux disease without esophagitis Esophageal reflux Age-related osteoporosis without current pathological fracture ([facility]) Fibromyalgia Unspecified myalgia and myositis Class 2 severe obesity due to excess calories with serious comorbidity and body mass index (BMI) of36.0 to 36.9 in adult ([facility]) Type 2 diabetes mellitus without complication, without long-term current use of insulin ([facility] Mixed hyperlipidemia ([facility]) Mixed hyperlipidemia documented in this encounter [facility] HealthcareEvaluation note* Diagnosis Benign essential HTN ([facility])- Primary Gastroesophageal reflux disease without esophagitis Esophageal reflux Stage 3 chronic kidney disease, unspecified whether stage 3a or 3b CKD (HCC) ([facility]) Class 2 severe obesity due to excess calories with serious comorbidity and body mass index (BMI) of36.0 to 36.9 in adult ([facility]) Menopause Symptomatic menopausal or female climacteric states Encounter for screening mammogram for malignant neoplasm of breast Encounter for subsequent annual wellness visit (AWV) in Medicare patient- Primary Benign essential HTN ([facility]) Gastroesophageal reflux disease without esophagitis Esophageal reflux Stage 3 chronic kidney disease, unspecified whether stage 3a or 3b CKD (HCC) ([facility]) 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, without long-term current use of insulin, unspecified whether stage 3a or 3b CKD (HCC) ([facility]) Acute pain of right shoulder- Primary Class 2 severe obesity due to excess calories with serious comorbidity and body mass index (BMI) of36.0 to 36.9 in adult ([facility]) Primary osteoarthritis involving multiple joints Preoperative clearance- Primary Unspecified pre-operative examination Type 2 diabetes mellitus with diabetic chronic kidney disease ([facility]) Malignant neoplasm of unspecified ovary ([facility]) Polyneuropathy in diseases classified elsewhere ([facility]) Secondary hyperparathyroidism of renal origin ([facility]) Secondary hyperparathyroidism (of renal origin) Hypertensive chronic kidney disease with stage 1 through stage 4 chronic kidney disease, or unspecified chronic kidney disease ([facility]) Age-related osteoporosis without current pathological fracture ([facility] Essential (primary) hypertension ([facility]) Unspecified essential hypertension Type 2 diabetes mellitus with diabetic neuropathy, unspecified ([facility]) Secondary hyperparathyroidism ([facility]) Secondary hyperparathyroidism (of renal origin) Acute pain of right shoulder Essential (primary) hypertension ([facility])- Primary Unspecified essential hypertension Fibromyalgia Unspecified myalgia and myositis Polyneuropathy in diseases classified elsewhere ([facility]) ODALYS (generalized anxiety disorder) ([facility]) Generalized anxiety disorder Type 2 diabetes mellitus without complication, without long-term current use of insulin ([facility]) Fibromyalgia- Primary Unspecified myalgia and myositis Polyneuropathy in diseases classified elsewhere ([facility]) Class 2 severe obesity due to excess calories with serious comorbidity and body mass index (BMI) of36.0 to 36.9 in adult ([facility]) ODALYS (generalized anxiety disorder) ([facility]) Generalized anxiety disorder Essential (primary) hypertension ([facility]) Unspecified essential hypertension Age-related osteoporosis without current pathological fracture ([facility]) Primary osteoarthritis involving multiple joints Class 2 severe obesity due to excess calories with serious comorbidity and body mass index (BMI) of36.0 to 36.9 in adult ([facility])- Primary Essential (primary) hypertension ([facility]) Unspecified essential hypertension Acute non-recurrent pansinusitis Encounter for screening mammogram for malignant neoplasm of breast Hematoma of frontal scalp, subsequent encounter- Primary Closed head injury, subsequent encounter Class 2 severe obesity due to excess calories with serious comorbidity and body mass index (BMI) of36.0 to 36.9 in adult ([facility]) Essential (primary) hypertension ([facility]) Unspecified essential hypertension Hematoma of frontal scalp, sequela- Primary Morbid (severe) obesity due to excess calories ([facility]) Essential (primary) hypertension ([facility]) Unspecified essential hypertension Body mass index (BMI) 35.0-35.9, adult Type 2 diabetes mellitus with diabetic neuropathy, unspecified ([facility]) Malignant neoplasm of unspecified ovary ([facility]) Type 2 diabetes mellitus with diabetic cataract ([facility]) Type II or unspecified type diabetes mellitus with ophthalmic manifestations, not stated as uncontrolled Type 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 ([facility]) Chronic kidney disease, stage 3a ([facility]) ([facility]) Hypertensive chronic kidney disease with stage 1 through stage 4 chronic kidney disease, or unspecified chronic kidney disease ([facility]) Class 2 severe obesity due to excess calories with serious comorbidity and body mass index (BMI) of36.0 to 36.9 in adult ([facility]) Closed head injury, sequela Blurry vision, left eye Other specified visual disturbances Pre-operative clearance- Primary Unspecified pre-operative examination Class 2 severe obesity due to excess calories with serious comorbidity and body mass index (BMI) of36.0 to 36.9 in adult ([facility]) Body mass index (BMI) 35.0-35.9, adult Closed head injury, sequela Hematoma of frontal scalp, sequela Age-related osteoporosis without current pathological fracture ([facility]) Essential (primary) hypertension ([facility]) Unspecified essential hypertension Gastroesophageal reflux disease without esophagitis Esophageal reflux Type 2 diabetes mellitus without complication, without long-term current use of insulin ([facility]) Blurry vision, left eye Other specified visual disturbances Encounter for subsequent annual wellness visit (AWV) in Medicare patient- Primary Type 2 diabetes mellitus with diabetic neuropathy, without long-term current use of insulin ([facility]) Essential (primary) hypertension ([facility]) Unspecified essential hypertension Hypertensive chronic kidney disease with stage 1 through stage 4 chronic kidney disease, or unspecified chronic kidney disease ([facility]) Gastroesophageal reflux disease without esophagitis Esophageal reflux Age-related osteoporosis without current pathological fracture ([facility]) Fibromyalgia Unspecified myalgia and myositis Class 2 severe obesity due to excess calories with serious comorbidity and body mass index (BMI) of36.0 to 36.9 in adult ([facility]) Type 2 diabetes mellitus without complication, without long-term current use of insulin ([facility]) Mixed hyperlipidemia ([facility]) Mixed hyperlipidemia Acute pain of right shoulder- Primary Status post reverse total arthroplasty of right shoulder Shoulder stiffness, right documented in this encounter [facility] HealthcareEvaluation note* Diagnosis Benign essential HTN ([facility])- Primary Gastroesophageal reflux disease without esophagitis Esophageal reflux Stage 3 chronic kidney disease, unspecified whether stage 3a or 3b CKD (HCC) ([facility]) Class 2 severe obesity due to excess calories with serious comorbidity and body mass index (BMI) of36.0 to 36.9 in adult ([facility]) Menopause Symptomatic menopausal or female climacteric states Encounter for screening mammogram for malignant neoplasm of breast Encounter for subsequent annual wellness visit (AWV) in Medicare patient- Primary Benign essential HTN ([facility]) Gastroesophageal reflux disease without esophagitis Esophageal reflux Stage 3 chronic kidney disease, unspecified whether stage 3a or 3b CKD (HCC) ([facility]) 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, without long-term current use of insulin, unspecified whether stage 3a or 3b CKD (HCC) ([facility]) Acute pain of right shoulder- Primary Class 2 severe obesity due to excess calories with serious comorbidity and body mass index (BMI) of36.0 to 36.9 in adult ([facility]) Primary osteoarthritis involving multiple joints Preoperative clearance- Primary Unspecified pre-operative examination Type 2 diabetes mellitus with diabetic chronic kidney disease ([facility]) Malignant neoplasm of unspecified ovary ([facility]) Polyneuropathy in diseases classified elsewhere ([facility]) Secondary hyperparathyroidism of renal origin ([facility]) Secondary hyperparathyroidism (of renal origin) Hypertensive chronic kidney disease with stage 1 through stage 4 chronic kidney disease, or unspecified chronic kidney disease ([facility]) Age-related osteoporosis without current pathological fracture ([facility]) Essential (primary) hypertension ([facility]) Unspecified essential hypertension Type 2 diabetes mellitus with diabetic neuropathy, unspecified ([facility]) Secondary hyperparathyroidism ([facility]) Secondary hyperparathyroidism (of renal origin) Acute pain of right shoulder Essential (primary) hypertension ([facility])- Primary Unspecified essential hypertension Fibromyalgia Unspecified myalgia and myositis Polyneuropathy in diseases classified elsewhere ([facility]) ODALYS (generalized anxiety disorder) ([facility]) Generalized anxiety disorder Type 2 diabetes mellitus without complication, without long-term current use of insulin ([facility]) Fibromyalgia- Primary Unspecified myalgia and myositis Polyneuropathy in diseases classified elsewhere ([facility]) Class 2 severe obesity due to excess calories with serious comorbidity and body mass index (BMI) of36.0 to 36.9 in adult ([facility]) ODALYS (generalized anxiety disorder) ([facility]) Generalized anxiety disorder Essential (primary) hypertension ([facility]) Unspecified essential hypertension Age-related osteoporosis without current pathological fracture ([facility]) Primary osteoarthritis involving multiple joints Class 2 severe obesity due to excess calories with serious comorbidity and body mass index (BMI) of36.0 to 36.9 in adult ([facility])- Primary Essential (primary) hypertension ([facility]) Unspecified essential hypertension Acute non-recurrent pansinusitis Encounter for screening mammogram for malignant neoplasm of breast Hematoma of frontal scalp, subsequent encounter- Primary Closed head injury, subsequent encounter Class 2 severe obesity due to excess calories with serious comorbidity and body mass index (BMI) of36.0 to 36.9 in adult ([facility]) Essential (primary) hypertension ([facility]) Unspecified essential hypertension Hematoma of frontal scalp, sequela- Primary Morbid (severe) obesity due to excess calories ([facility]) Essential (primary) hypertension ([facility]) Unspecified essential hypertension Body mass index (BMI) 35.0-35.9, adult Type 2 diabetes mellitus with diabetic neuropathy, unspecified ([facility]) Malignant neoplasm of unspecified ovary ([facility]) Type 2 diabetes mellitus with diabetic cataract ([facility]) Type II or unspecified type diabetes mellitus with ophthalmic manifestations, not stated as uncontrolled Type 2 diabetes mellitus with diabetic chronic kidney disease ([facility]) Chronic kidney disease, stage 3a (HCC) ([facility]) Hypertensive chronic kidney disease with stage 1 through stage 4 chronic kidney disease, or unspecified chronic kidney disease ([facility]) Class 2 severe obesity due to excess calories with serious comorbidity and body mass index (BMI) of36.0 to 36.9 in adult ([facility]) Closed head injury, sequela Blurry vision, left eye Other specified visual disturbances Pre-operative clearance- Primary Unspecified pre-operative examination Class 2 severe obesity due to excess calories with serious comorbidity and body mass index (BMI) of36.0 to 36.9 in adult ([facility]) Body mass index (BMI) 35.0-35.9, adult Closed head injury, sequela Hematoma of frontal scalp, sequela Age-related osteoporosis without current pathological fracture ([facility]) Essential (primary) hypertension ([facility]) Unspecified essential hypertension Gastroesophageal reflux disease without esophagitis Esophageal reflux Type 2 diabetes mellitus without complication, without long-term current use of insulin ([facility]) Blurry vision, left eye Other specified visual disturbances Encounter for subsequent annual wellness visit (AWV) in Medicare patient- Primary Type 2 diabetes mellitus with diabetic neuropathy, without long-term current use of insulin ([facility]) Essential (primary) hypertension ([facility]) Unspecified essential hypertension Hypertensive chronic kidney disease with stage 1 through stage 4 chronic kidney disease, or unspecified chronic kidney disease ([facility]) Gastroesophageal reflux disease without esophagitis Esophageal reflux Age-related osteoporosis without current pathological fracture ([facility]) Fibromyalgia Unspecified myalgia and myositis Class 2 severe obesity due to excess calories with serious comorbidity and body mass index (BMI) of36.0 to 36.9 in adult ([facility]) Type 2 diabetes mellitus without complication, without long-term current use of insulin ([facility]) Mixed hyperlipidemia ([facility]) Mixed hyperlipidemia Acute pain of right shoulder- Primary Status post reverse total arthroplasty of right shoulder Shoulder stiffness, right documented in this encounter [facility] HealthcareEvaluation note* Diagnosis Benign essential HTN ([facility])- Primary Gastroesophageal reflux disease without esophagitis Esophageal reflux Stage 3 chronic kidney disease, unspecified whether stage 3a or 3b CKD ([facility]) ([facility]) Class 2 severe obesity due to excess calories with serious comorbidity and body mass index (BMI) of36.0 to 36.9 in adult ([facility]) Menopause Symptomatic menopausal or female climacteric states Encounter for screening mammogram for malignant neoplasm of breast Encounter for subsequent annual wellness visit (AWV) in Medicare patient- Primary Benign essential HTN ([facility]) Gastroesophageal reflux disease without esophagitis Esophageal reflux Stage 3 chronic kidney disease, unspecified whether stage 3a or 3b CKD (HCC) ([facility]) 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, without long-term current use of insulin, unspecified whether stage 3a or 3b CKD (HCC) ([facility]) Acute pain of right shoulder- Primary Class 2 severe obesity due to excess calories with serious comorbidity and body mass index (BMI) of36.0 to 36.9 in adult ([facility]) Primary osteoarthritis involving multiple joints Preoperative clearance- Primary Unspecified pre-operative examination Type 2 diabetes mellitus with diabetic chronic kidney disease ([facility]) Malignant neoplasm of unspecified ovary ([facility]) Polyneuropathy in diseases classified elsewhere ([facility]) Secondary hyperparathyroidism of renal origin ([facility]) Secondary hyperparathyroidism (of renal origin) Hypertensive chronic kidney disease with stage 1 through stage 4 chronic kidney disease, or unspecified chronic kidney disease ([facility]) Age-related osteoporosis without current pathological fracture ([facility]) Essential (primary) hypertension ([facility]) Unspecified essential hypertension Type 2 diabetes mellitus with diabetic neuropathy, unspecified ([facility]) Secondary hyperparathyroidism ([facility]) Secondary hyperparathyroidism (of renal origin) Acute pain of right shoulder Essential (primary) hypertension ([facility])- Primary Unspecified essential hypertension Fibromyalgia Unspecified myalgia and myositis Polyneuropathy in diseases classified elsewhere ([facility]) ODALYS (generalized anxiety disorder) ([facility]) Generalized anxiety disorder Type 2 diabetes mellitus without complication, without long-term current use of insulin ([facility]) Fibromyalgia- Primary Unspecified myalgia and myositis Polyneuropathy in diseases classified elsewhere ([facility]) Class 2 severe obesity due to excess calories with serious comorbidity and body mass index (BMI) of36.0 to 36.9 in adult ([facility] ODALYS (generalized anxiety disorder) ([facility]) Generalized anxiety disorder Essential (primary) hypertension ([facility]) Unspecified essential hypertension Age-related osteoporosis without current pathological fracture ([facility]) Primary osteoarthritis involving multiple joints Class 2 severe obesity due to excess calories with serious comorbidity and body mass index (BMI) of36.0 to 36.9 in adult ([facility])- Primary Essential (primary) hypertension ([facility]) Unspecified essential hypertension Acute non-recurrent pansinusitis Encounter for screening mammogram for malignant neoplasm of breast Hematoma of frontal scalp, subsequent encounter- Primary Closed head injury, subsequent encounter Class 2 severe obesity due to excess calories with serious comorbidity and body mass index (BMI) of36.0 to 36.9 in adult ([facility]) Essential (primary) hypertension ([facility]) Unspecified essential hypertension Hematoma of frontal scalp, sequela- Primary Morbid (severe) obesity due to excess calories ([facility]) Essential (primary) hypertension ([facility]) Unspecified essential hypertension Body mass index (BMI) 35.0-35.9, adult Type 2 diabetes mellitus with diabetic neuropathy, unspecified ([facility]) Malignant neoplasm of unspecified ovary ([facility]) Type 2 diabetes mellitus with diabetic cataract ([facility]) Type II or unspecified type diabetes mellitus with ophthalmic manifestations, not stated as uncontrolled Type 2 diabetes mellitus with diabetic chronic kidney disease ([facility]) Chronic kidney disease, stage 3a (HCC) [facility] [facility]) Hypertensive chronic kidney disease with stage 1 through stage 4 chronic kidney disease, or unspecified chronic kidney disease ([facility]) Class 2 severe obesity due to excess calories with serious comorbidity and body mass index (BMI) of36.0 to 36.9 in adult ([facility]) Closed head injury, sequela Blurry vision, left eye Other specified visual disturbances Pre-operative clearance- Primary Unspecified pre-operative examination Class 2 severe obesity due to excess calories with serious comorbidity and body mass index (BMI) of36.0 to 36.9 in adult ([facility]) Body mass index (BMI) 35.0-35.9, adult Closed head injury, sequela Hematoma of frontal scalp, sequela Age-related osteoporosis without current pathological fracture ([facility]) Essential (primary) hypertension ([facility]) Unspecified essential hypertension Gastroesophageal reflux disease without esophagitis Esophageal reflux Type 2 diabetes mellitus without complication, without long-term current use of insulin ([facility]) Blurry vision, left eye Other specified visual disturbances Encounter for subsequent annual wellness visit (AWV) in Medicare patient- Primary Type 2 diabetes mellitus with diabetic neuropathy, without long-term current use of insulin ([facility]) Essential (primary) hypertension ([facility]) Unspecified essential hypertension Hypertensive chronic kidney disease with stage 1 through stage 4 chronic kidney disease, or unspecified chronic kidney disease (CMS/HCC) Gastroesophageal reflux disease without esophagitis Esophageal reflux Age-related osteoporosis without current pathological fracture ([facility]) Fibromyalgia Unspecified myalgia and myositis Class 2 severe obesity due to excess calories with serious comorbidity and body mass index (BMI) of36.0 to 36.9 in adult ([facility]) Type 2 diabetes mellitus without complication, without long-term current use of insulin (CMS/[facility]) Mixed hyperlipidemia (CMS/[facility]) Mixed hyperlipidemia Acute pain of right shoulder- Primary Status post reverse total arthroplasty of right shoulder documented in this encounter [facility] HealthcareEvaluation note* Diagnosis Benign essential HTN (CMS/HCC)- Primary Gastroesophageal reflux disease without esophagitis Esophageal reflux Stage 3 chronic kidney disease, unspecified whether stage 3a or 3b CKD (HCC) ([facility]) Class 2 severe obesity due to excess calories with serious comorbidity and body mass index (BMI) of36.0 to 36.9 in adult ([facility]) Menopause Symptomatic menopausal or female climacteric states Encounter for screening mammogram for malignant neoplasm of breast Encounter for subsequent annual wellness visit (AWV) in Medicare patient- Primary Benign essential HTN (CMS/HCC) Gastroesophageal reflux disease without esophagitis Esophageal reflux Stage 3 chronic kidney disease, unspecified whether stage 3a or 3b CKD (HCC) ([facility]) 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, without long-term current use of insulin, unspecified whether stage 3a or 3b CKD (HCC) (CMS/HCC) Acute pain of right shoulder- Primary Class 2 severe obesity due to excess calories with serious comorbidity and body mass index (BMI) of36.0 to 36.9 in adult ([facility]) Primary osteoarthritis involving multiple joints Preoperative clearance- Primary Unspecified pre-operative examination Type 2 diabetes mellitus with diabetic chronic kidney disease ([facility]/HCC) Malignant neoplasm of unspecified ovary ([facility]) Polyneuropathy in diseases classified elsewhere ([facility]) Secondary hyperparathyroidism of renal origin ([facility]/HCC) Secondary hyperparathyroidism (of renal origin) Hypertensive chronic kidney disease with stage 1 through stage 4 chronic kidney disease, or unspecified chronic kidney disease ([facility]/HCC) Age-related osteoporosis without current pathological fracture ([facility]) Essential (primary) hypertension (CMS/HCC) Unspecified essential hypertension Type 2 diabetes mellitus with diabetic neuropathy, unspecified ([facility]) Secondary hyperparathyroidism ([facility]/HCC) Secondary hyperparathyroidism (of renal origin) Acute pain of right shoulder Essential (primary) hypertension ([facility])- Primary Unspecified essential hypertension Fibromyalgia Unspecified myalgia and myositis Polyneuropathy in diseases classified elsewhere ([facility]) ODALYS (generalized anxiety disorder) ([facility]) Generalized anxiety disorder Type 2 diabetes mellitus without complication, without long-term current use of insulin Fibromyalgia- Primary Unspecified myalgia and myositis Polyneuropathy in diseases classified elsewhere ([facility]) Class 2 severe obesity due to excess calories with serious comorbidity and body mass index (BMI) of36.0 to 36.9 in adult ([facility]) ODALYS (generalized anxiety disorder) ([facility]) Generalized anxiety disorder Essential (primary) hypertension ([facility]) Unspecified essential hypertension Age-related osteoporosis without current pathological fracture ([facility]) Primary osteoarthritis involving multiple joints Class 2 severe obesity due to excess calories with serious comorbidity and body mass index (BMI) of36.0 to 36.9 in adult ([facility])- Primary Essential (primary) hypertension ([facility]) Unspecified essential hypertension Acute non-recurrent pansinusitis Encounter for screening mammogram for malignant neoplasm of breast Hematoma of frontal scalp, subsequent encounter- Primary Closed head injury, subsequent encounter Class 2 severe obesity due to excess calories with serious comorbidity and body mass index (BMI) of36.0 to 36.9 in adult ([facility]) Essential (primary) hypertension ([facility]) Unspecified essential hypertension Hematoma of frontal scalp, sequela- Primary Morbid (severe) obesity due to excess calories ([facility]) Essential (primary) hypertension ([facility]) Unspecified essential hypertension Body mass index (BMI) 35.0-35.9, adult Type 2 diabetes mellitus with diabetic neuropathy, unspecified ([facility]) Malignant neoplasm of unspecified ovary ([facility]) Type 2 diabetes mellitus with diabetic cataract ([facility]) Type II or unspecified type diabetes mellitus with ophthalmic manifestations, not stated as uncontrolled Type 2 diabetes mellitus with diabetic chronic kidney disease ([facility]) Chronic kidney disease, stage 3a ([facility]) ([facility]) Hypertensive chronic kidney disease with stage 1 through stage 4 chronic kidney disease, or unspecified chronic kidney disease ([facility]) Class 2 severe obesity due to excess calories with serious comorbidity and body mass index (BMI) of36.0 to 36.9 in adult ([facility]) Closed head injury, sequela Blurry vision, left eye Other specified visual disturbances Pre-operative clearance- Primary Unspecified pre-operative examination Class 2 severe obesity due to excess calories with serious comorbidity and body mass index (BMI) of36.0 to 36.9 in adult ([facility]) Body mass index (BMI) 35.0-35.9, adult Closed head injury, sequela Hematoma of frontal scalp, sequela Age-related osteoporosis without current pathological fracture ([facility]) Essential (primary) hypertension ([facility]) Unspecified essential hypertension Gastroesophageal reflux disease without esophagitis Esophageal reflux Type 2 diabetes mellitus without complication, without long-term current use of insulin Blurry vision, left eye Other specified visual disturbances Encounter for subsequent annual wellness visit (AWV) in Medicare patient- Primary Type 2 diabetes mellitus with diabetic neuropathy, without long-term current use of insulin ([facility]) Essential (primary) hypertension ([facility]) Unspecified essential hypertension Hypertensive chronic kidney disease with stage 1 through stage 4 chronic kidney disease, or unspecified chronic kidney disease ([facility]) Gastroesophageal reflux disease without esophagitis Esophageal reflux Age-related osteoporosis without current pathological fracture ([facility] [place]) Fibromyalgia Unspecified myalgia and myositis Class 2 severe obesity due to excess calories with serious comorbidity and body mass index (BMI) of36.0 to 36.9 in adult ([facility]) Type 2 diabetes mellitus without complication, without long-term current use of insulin Mixed hyperlipidemia ([facility]) Mixed hyperlipidemia Type 2 diabetes mellitus with diabetic neuropathy, unspecified ([facility]) documented in this encounter [facility] HealthcareEvaluation note* Diagnosis Benign essential HTN ([facility])- Primary Gastroesophageal reflux disease without esophagitis Esophageal reflux Stage 3 chronic kidney disease, unspecified whether stage 3a or 3b CKD (HCC) ([facility]) Class 2 severe obesity due to excess calories with serious comorbidity and body mass index (BMI) of36.0 to 36.9 in adult ([facility]) Menopause Symptomatic menopausal or female climacteric states Encounter for screening mammogram for malignant neoplasm of breast Encounter for subsequent annual wellness visit (AWV) in Medicare patient- Primary Benign essential HTN ([facility]) Gastroesophageal reflux disease without esophagitis Esophageal reflux Stage 3 chronic kidney disease, unspecified whether stage 3a or 3b CKD (HCC) ([facility]) 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, without long-term current use of insulin, unspecified whether stage 3a or 3b CKD (HCC) ([facility]) Acute pain of right shoulder- Primary Class 2 severe obesity due to excess calories with serious comorbidity and body mass index (BMI) of36.0 to 36.9 in adult ([facility]) Primary osteoarthritis involving multiple joints Preoperative clearance- Primary Unspecified pre-operative examination Type 2 diabetes mellitus with diabetic chronic kidney disease ([facility]) Malignant neoplasm of unspecified ovary ([facility]) Polyneuropathy in diseases classified elsewhere ([facility]) Secondary hyperparathyroidism of renal origin ([facility]) Secondary hyperparathyroidism (of renal origin) Hypertensive chronic kidney disease with stage 1 through stage 4 chronic kidney disease, or unspecified chronic kidney disease ([facility]) Age-related osteoporosis without current pathological fracture ([facility]) Essential (primary) hypertension ([facility]) Unspecified essential hypertension Type 2 diabetes mellitus with diabetic neuropathy, unspecified ([facility]) Secondary hyperparathyroidism ([facility]) Secondary hyperparathyroidism (of renal origin) Acute pain of right shoulder Essential (primary) hypertension ([facility])- Primary Unspecified essential hypertension Fibromyalgia Unspecified myalgia and myositis Polyneuropathy in diseases classified elsewhere ([facility]) ODALYS (generalized anxiety disorder) ([facility]) Generalized anxiety disorder Type 2 diabetes mellitus without complication, without long-term current use of insulin Fibromyalgia- Primary Unspecified myalgia and myositis Polyneuropathy in diseases classified elsewhere ([facility]) Class 2 severe obesity due to excess calories with serious comorbidity and body mass index (BMI) of36.0 to 36.9 in adult ([facility]) ODALYS (generalized anxiety disorder) ([facility]) Generalized anxiety disorder Essential (primary) hypertension ([facility]) Unspecified essential hypertension Age-related osteoporosis without current pathological fracture ([facility]) Primary osteoarthritis involving multiple joints Class 2 severe obesity due to excess calories with serious comorbidity and body mass index (BMI) of36.0 to 36.9 in adult ([facility] [place])- Primary Essential (primary) hypertension ([facility]) Unspecified essential hypertension Acute non-recurrent pansinusitis Encounter for screening mammogram for malignant neoplasm of breast Hematoma of frontal scalp, subsequent encounter- Primary Closed head injury, subsequent encounter Class 2 severe obesity due to excess calories with serious comorbidity and body mass index (BMI) of36.0 to 36.9 in adult ([facility]) Essential (primary) hypertension ([facility]) Unspecified essential hypertension Hematoma of frontal scalp, sequela- Primary Morbid (severe) obesity due to excess calories ([facility]) Essential (primary) hypertension ([facility]) Unspecified essential hypertension Body mass index (BMI) 35.0-35.9, adult Type 2 diabetes mellitus with diabetic neuropathy, unspecified ([facility]) Malignant neoplasm of unspecified ovary ([facility]) Type 2 diabetes mellitus with diabetic cataract ([facility]) Type II or unspecified type diabetes mellitus with ophthalmic manifestations, not stated as uncontrolled Type 2 diabetes mellitus with diabetic chronic kidney disease ([facility]) Chronic kidney disease, stage 3a (HCC) ([facility]) Hypertensive chronic kidney disease with stage 1 through stage 4 chronic kidney disease, or unspecified chronic kidney disease ([facility]) Class 2 severe obesity due to excess calories with serious comorbidity and body mass index (BMI) of36.0 to 36.9 in adult ([facility]) Closed head injury, sequela Blurry vision, left eye Other specified visual disturbances Pre-operative clearance- Primary Unspecified pre-operative examination Class 2 severe obesity due to excess calories with serious comorbidity and body mass index (BMI) of36.0 to 36.9 in adult ([facility]) Body mass index (BMI) 35.0-35.9, adult Closed head injury, sequela Hematoma of frontal scalp, sequela Age-related osteoporosis without current pathological fracture ([facility]) Essential (primary) hypertension ([facility]) Unspecified essential hypertension Gastroesophageal reflux disease without esophagitis Esophageal reflux Type 2 diabetes mellitus without complication, without long-term current use of insulin Blurry vision, left eye Other specified visual disturbances Encounter for subsequent annual wellness visit (AWV) in Medicare patient- Primary Type 2 diabetes mellitus with diabetic neuropathy, without long-term current use of insulin ([facility]) Essential (primary) hypertension ([facility]) Unspecified essential hypertension Hypertensive chronic kidney disease with stage 1 through stage 4 chronic kidney disease, or unspecified chronic kidney disease ([facility]) Gastroesophageal reflux disease without esophagitis Esophageal reflux Age-related osteoporosis without current pathological fracture ([facility]) Fibromyalgia Unspecified myalgia and myositis Class 2 severe obesity due to excess calories with serious comorbidity and body mass index (BMI) of36.0 to 36.9 in adult ([facility]) Type 2 diabetes mellitus without complication, without long-term current use of insulin Mixed hyperlipidemia ([facility]) Mixed hyperlipidemia Acute pain of right shoulder- Primary Status post reverse total arthroplasty of right shoulder Shoulder stiffness, right documented in this encounter [facility] HealthcareEvaluation note* Diagnosis Benign essential HTN ([facility]/HCC)- Primary Gastroesophageal reflux disease without esophagitis Esophageal reflux Stage 3 chronic kidney disease, unspecified whether stage 3a or 3b CKD (HCC) ([facility]) Class 2 severe obesity due to excess calories with serious comorbidity and body mass index (BMI) of36.0 to 36.9 in adult ([facility]) Menopause Symptomatic menopausal or female climacteric states Encounter for screening mammogram for malignant neoplasm of breast Encounter for subsequent annual wellness visit (AWV) in Medicare patient- Primary Benign essential HTN ([facility]) Gastroesophageal reflux disease without esophagitis Esophageal reflux Stage 3 chronic kidney disease, unspecified whether stage 3a or 3b CKD (HCC) ([facility]) 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, without long-term current use of insulin, unspecified whether stage 3a or 3b CKD (HCC) ([facility]) Acute pain of right shoulder- Primary Class 2 severe obesity due to excess calories with serious comorbidity and body mass index (BMI) of36.0 to 36.9 in adult ([facility]) Primary osteoarthritis involving multiple joints Preoperative clearance- Primary Unspecified pre-operative examination Type 2 diabetes mellitus with diabetic chronic kidney disease ([facility]) Malignant neoplasm of unspecified ovary ([facility]) Polyneuropathy in diseases classified elsewhere ([facility]) Secondary hyperparathyroidism of renal origin ([facility]) Secondary hyperparathyroidism (of renal origin) Hypertensive chronic kidney disease with stage 1 through stage 4 chronic kidney disease, or unspecified chronic kidney disease ([facility]) Age-related osteoporosis without current pathological fracture ([facility]) Essential (primary) hypertension ([facility]) Unspecified essential hypertension Type 2 diabetes mellitus with diabetic neuropathy, unspecified ([facility]) Secondary hyperparathyroidism ([facility]) Secondary hyperparathyroidism (of renal origin) Acute pain of right shoulder Essential (primary) hypertension ([facility])- Primary Unspecified essential hypertension Fibromyalgia Unspecified myalgia and myositis Polyneuropathy in diseases classified elsewhere ([facility]) ODALYS (generalized anxiety disorder) ([facility]) Generalized anxiety disorder Type 2 diabetes mellitus without complication, without long-term current use of insulin Fibromyalgia- Primary Unspecified myalgia and myositis Polyneuropathy in diseases classified elsewhere ([facility]) Class 2 severe obesity due to excess calories with serious comorbidity and body mass index (BMI) of36.0 to 36.9 in adult ([facility]) ODALYS (generalized anxiety disorder) ([facility]) Generalized anxiety disorder Essential (primary) hypertension ([facility]) Unspecified essential hypertension Age-related osteoporosis without current pathological fracture ([facility]) Primary osteoarthritis involving multiple joints Class 2 severe obesity due to excess calories with serious comorbidity and body mass index (BMI) of36.0 to 36.9 in adult ([facility] [place])- Primary Essential (primary) hypertension ([facility]) Unspecified essential hypertension Acute non-recurrent pansinusitis Encounter for screening mammogram for malignant neoplasm of breast Hematoma of frontal scalp, subsequent encounter- Primary Closed head injury, subsequent encounter Class 2 severe obesity due to excess calories with serious comorbidity and body mass index (BMI) of36.0 to 36.9 in adult ([facility] [place]) Essential (primary) hypertension ([facility]) Unspecified essential hypertension Hematoma of frontal scalp, sequela- Primary Morbid (severe) obesity due to excess calories ([facility] [place]) Essential (primary) hypertension ([facility]) Unspecified essential hypertension Body mass index (BMI) 35.0-35.9, adult Type 2 diabetes mellitus with diabetic neuropathy, unspecified ([facility] [place]) Malignant neoplasm of unspecified ovary ([facility]) Type 2 diabetes mellitus with diabetic cataract ([facility] [place]) Type II or unspecified type diabetes mellitus with ophthalmic manifestations, not stated as uncontrolled Type 2 diabetes mellitus with diabetic chronic kidney disease ([facility]) Chronic kidney disease, stage 3a ([facility]) ([facility]) Hypertensive chronic kidney disease with stage 1 through stage 4 chronic kidney disease, or unspecified chronic kidney disease ([facility]) Class 2 severe obesity due to excess calories with serious comorbidity and body mass index (BMI) of36.0 to 36.9 in adult ([facility]) Closed head injury, sequela Blurry vision, left eye Other specified visual disturbances Pre-operative clearance- Primary Unspecified pre-operative examination Class 2 severe obesity due to excess calories with serious comorbidity and body mass index (BMI) of36.0 to 36.9 in adult ([facility]) Body mass index (BMI) 35.0-35.9, adult Closed head injury, sequela Hematoma of frontal scalp, sequela Age-related osteoporosis without current pathological fracture ([facility]) Essential (primary) hypertension ([facility]/HCC) Unspecified essential hypertension Gastroesophageal reflux disease without esophagitis Esophageal reflux Type 2 diabetes mellitus without complication, without long-term current use of insulin Blurry vision, left eye Other specified visual disturbances Encounter for subsequent annual wellness visit (AWV) in Medicare patient- Primary Type 2 diabetes mellitus with diabetic neuropathy, without long-term current use of insulin ([facility]) Essential (primary) hypertension ([facility]/HCC) Unspecified essential hypertension Hypertensive chronic kidney disease with stage 1 through stage 4 chronic kidney disease, or unspecified chronic kidney disease ([facility]/HCC) Gastroesophageal reflux disease without esophagitis Esophageal reflux Age-related osteoporosis without current pathological fracture ([facility]) Fibromyalgia Unspecified myalgia and myositis Class 2 severe obesity due to excess calories with serious comorbidity and body mass index (BMI) of36.0 to 36.9 in adult ([facility]) Type 2 diabetes mellitus without complication, without long-term current use of insulin Mixed hyperlipidemia ([facility]) Mixed hyperlipidemia Back pain of lumbar region with sciatica- Primary Class 2 severe obesity due to excess calories with serious comorbidity and body mass index (BMI) of36.0 to 36.9 in adult ([facility]) Essential (primary) hypertension ([facility]) Unspecified essential hypertension Gastro-esophageal reflux disease without esophagitis Esophageal reflux documented in this encounter [facility] HealthcareEvaluation note* Diagnosis Benign essential HTN ([facility]/HCC)- Primary Gastroesophageal reflux disease without esophagitis Esophageal reflux Stage 3 chronic kidney disease, unspecified whether stage 3a or 3b CKD (HCC) ([facility]) Class 2 severe obesity due to excess calories with serious comorbidity and body mass index (BMI) of36.0 to 36.9 in adult ([facility]) Menopause Symptomatic menopausal or female climacteric states Encounter for screening mammogram for malignant neoplasm of breast Encounter for subsequent annual wellness visit (AWV) in Medicare patient- Primary Benign essential HTN ([facility]/HCC) Gastroesophageal reflux disease without esophagitis Esophageal reflux Stage 3 chronic kidney disease, unspecified whether stage 3a or 3b CKD (HCC) ([facility]) 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, without long-term current use of insulin, unspecified whether stage 3a or 3b CKD (HCC) ([facility]) Acute pain of right shoulder- Primary Class 2 severe obesity due to excess calories with serious comorbidity and body mass index (BMI) of36.0 to 36.9 in adult ([facility]) Primary osteoarthritis involving multiple joints Preoperative clearance- Primary Unspecified pre-operative examination Type 2 diabetes mellitus with diabetic chronic kidney disease ([facility]) Malignant neoplasm of unspecified ovary ([facility] Polyneuropathy in diseases classified elsewhere ([facility] [place]) Secondary hyperparathyroidism of renal origin ([facility]) Secondary hyperparathyroidism (of renal origin) Hypertensive chronic kidney disease with stage 1 through stage 4 chronic kidney disease, or unspecified chronic kidney disease ([facility]) Age-related osteoporosis without current pathological fracture ([facility] Essential (primary) hypertension ([facility]) Unspecified essential hypertension Type 2 diabetes mellitus with diabetic neuropathy, unspecified ([facility]) Secondary hyperparathyroidism ([facility]) Secondary hyperparathyroidism (of renal origin) Acute pain of right shoulder Essential (primary) hypertension ([facility])- Primary Unspecified essential hypertension Fibromyalgia Unspecified myalgia and myositis Polyneuropathy in diseases classified elsewhere ([facility]) ODALYS (generalized anxiety disorder) ([facility]) Generalized anxiety disorder Type 2 diabetes mellitus without complication, without long-term current use of insulin Fibromyalgia- Primary Unspecified myalgia and myositis Polyneuropathy in diseases classified elsewhere ([facility]) Class 2 severe obesity due to excess calories with serious comorbidity and body mass index (BMI) of36.0 to 36.9 in adult ([facility] [place]) ODALYS (generalized anxiety disorder) ([facility] [place]) Generalized anxiety disorder Essential (primary) hypertension ([facility]) Unspecified essential hypertension Age-related osteoporosis without current pathological fracture ([facility] [place]) Primary osteoarthritis involving multiple joints Class 2 severe obesity due to excess calories with serious comorbidity and body mass index (BMI) of36.0 to 36.9 in adult ([facility] [place])- Primary Essential (primary) hypertension ([facility]) Unspecified essential hypertension Acute non-recurrent pansinusitis Encounter for screening mammogram for malignant neoplasm of breast Hematoma of frontal scalp, subsequent encounter- Primary Closed head injury, subsequent encounter Class 2 severe obesity due to excess calories with serious comorbidity and body mass index (BMI) of36.0 to 36.9 in adult ([facility] [place]) Essential (primary) hypertension ([facility]) Unspecified essential hypertension Hematoma of frontal scalp, sequela- Primary Morbid (severe) obesity due to excess calories ([facility]) Essential (primary) hypertension ([facility]) Unspecified essential hypertension Body mass index (BMI) 35.0-35.9, adult Type 2 diabetes mellitus with diabetic neuropathy, unspecified ([facility]) Malignant neoplasm of unspecified ovary ([facility]) Type 2 diabetes mellitus with diabetic cataract ([facility]) Type II or unspecified type diabetes mellitus with ophthalmic manifestations, not stated as uncontrolled Type 2 diabetes mellitus with diabetic chronic kidney disease ([facility]) Chronic kidney disease, stage 3a (HCC) ([facility]) Hypertensive chronic kidney disease with stage 1 through stage 4 chronic kidney disease, or unspecified chronic kidney disease ([facility]) Class 2 severe obesity due to excess calories with serious comorbidity and body mass index (BMI) of36.0 to 36.9 in adult ([facility]) Closed head injury, sequela Blurry vision, left eye Other specified visual disturbances Pre-operative clearance- Primary Unspecified pre-operative examination Class 2 severe obesity due to excess calories with serious comorbidity and body mass index (BMI) of36.0 to 36.9 in adult ([facility]) Body mass index (BMI) 35.0-35.9, adult Closed head injury, sequela Hematoma of frontal scalp, sequela Age-related osteoporosis without current pathological fracture ([facility]) Essential (primary) hypertension ([facility]) Unspecified essential hypertension Gastroesophageal reflux disease without esophagitis Esophageal reflux Type 2 diabetes mellitus without complication, without long-term current use of insulin Blurry vision, left eye Other specified visual disturbances Encounter for subsequent annual wellness visit (AWV) in Medicare patient- Primary Type 2 diabetes mellitus with diabetic neuropathy, without long-term current use of insulin ([facility]) Essential (primary) hypertension ([facility]) Unspecified essential hypertension Hypertensive chronic kidney disease with stage 1 through stage 4 chronic kidney disease, or unspecified chronic kidney disease ([facility]) Gastroesophageal reflux disease without esophagitis Esophageal reflux Age-related osteoporosis without current pathological fracture ([facility]) Fibromyalgia Unspecified myalgia and myositis Class 2 severe obesity due to excess calories with serious comorbidity and body mass index (BMI) of36.0 to 36.9 in adult ([facility] [place]) Type 2 diabetes mellitus without complication, without long-term current use of insulin Mixed hyperlipidemia ([facility]) Mixed hyperlipidemia Back pain of lumbar region with sciatica- Primary Class 2 severe obesity due to excess calories with serious comorbidity and body mass index (BMI) of36.0 to 36.9 in adult ([facility]) Essential (primary) hypertension ([facility]/HCC) Unspecified essential hypertension Gastro-esophageal reflux disease without esophagitis Esophageal reflux Acute pain of right shoulder- Primary Status post reverse total arthroplasty of right shoulder Shoulder stiffness, right documented in this encounter [facility] HealthcareEvaluation note* Diagnosis Benign essential HTN (CMS/HCC)- Primary Gastroesophageal reflux disease without esophagitis Esophageal reflux Stage 3 chronic kidney disease, unspecified whether stage 3a or 3b CKD (HCC) (CMS/HCC) Class 2 severe obesity due to excess calories with serious comorbidity and body mass index (BMI) of36.0 to 36.9 in adult ([facility]) Menopause Symptomatic menopausal or female climacteric states Encounter for screening mammogram for malignant neoplasm of breast Encounter for subsequent annual wellness visit (AWV) in Medicare patient- Primary Benign essential HTN (CMS/HCC) Gastroesophageal reflux disease without esophagitis Esophageal reflux Stage 3 chronic kidney disease, unspecified whether stage 3a or 3b CKD (HCC) ([facility]) 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, without long-term current use of insulin, unspecified whether stage 3a or 3b CKD (HCC) (CMS/HCC) Acute pain of right shoulder- Primary Class 2 severe obesity due to excess calories with serious comorbidity and body mass index (BMI) of36.0 to 36.9 in adult ([facility]) Primary osteoarthritis involving multiple joints Preoperative clearance- Primary Unspecified pre-operative examination Type 2 diabetes mellitus with diabetic chronic kidney disease (CMS/HCC) Malignant neoplasm of unspecified ovary (CMS/[facility]) Polyneuropathy in diseases classified elsewhere ([facility]) Secondary hyperparathyroidism of renal origin (CMS/HCC) Secondary hyperparathyroidism (of renal origin) Hypertensive chronic kidney disease with stage 1 through stage 4 chronic kidney disease, or unspecified chronic kidney disease ([facility]/HCC) Age-related osteoporosis without current pathological fracture ([facility]/HCC) Essential (primary) hypertension (CMS/HCC) Unspecified essential hypertension Type 2 diabetes mellitus with diabetic neuropathy, unspecified (CMS/HCC) Secondary hyperparathyroidism (CMS/HCC) Secondary hyperparathyroidism (of renal origin) Acute pain of right shoulder Essential (primary) hypertension (CMS/HCC)- Primary Unspecified essential hypertension Fibromyalgia Unspecified myalgia and myositis Polyneuropathy in diseases classified elsewhere ([facility]) ODALYS (generalized anxiety disorder) ([facility]) Generalized anxiety disorder Type 2 diabetes mellitus without complication, without long-term current use of insulin Fibromyalgia- Primary Unspecified myalgia and myositis Polyneuropathy in diseases classified elsewhere ([facility]) Class 2 severe obesity due to excess calories with serious comorbidity and body mass index (BMI) of36.0 to 36.9 in adult ([facility]) ODALYS (generalized anxiety disorder) ([facility]) Generalized anxiety disorder Essential (primary) hypertension ([facility]) Unspecified essential hypertension Age-related osteoporosis without current pathological fracture ([facility]) Primary osteoarthritis involving multiple joints Class 2 severe obesity due to excess calories with serious comorbidity and body mass index (BMI) of36.0 to 36.9 in adult ([facility] [place])- Primary Essential (primary) hypertension ([facility]) Unspecified essential hypertension Acute non-recurrent pansinusitis Encounter for screening mammogram for malignant neoplasm of breast Hematoma of frontal scalp, subsequent encounter- Primary Closed head injury, subsequent encounter Class 2 severe obesity due to excess calories with serious comorbidity and body mass index (BMI) of36.0 to 36.9 in adult ([facility]) Essential (primary) hypertension ([facility]) Unspecified essential hypertension Hematoma of frontal scalp, sequela- Primary Morbid (severe) obesity due to excess calories ([facility]) Essential (primary) hypertension ([facility]) Unspecified essential hypertension Body mass index (BMI) 35.0-35.9, adult Type 2 diabetes mellitus with diabetic neuropathy, unspecified ([facility]) Malignant neoplasm of unspecified ovary ([facility]) Type 2 diabetes mellitus with diabetic cataract ([facility]) Type II or unspecified type diabetes mellitus with ophthalmic manifestations, not stated as uncontrolled Type 2 diabetes mellitus with diabetic chronic kidney disease ([facility]) Chronic kidney disease, stage 3a (HCC) ([facility]) Hypertensive chronic kidney disease with stage 1 through stage 4 chronic kidney disease, or unspecified chronic kidney disease ([facility]) Class 2 severe obesity due to excess calories with serious comorbidity and body mass index (BMI) of36.0 to 36.9 in adult ([facility]) Closed head injury, sequela Blurry vision, left eye Other specified visual disturbances Pre-operative clearance- Primary Unspecified pre-operative examination Class 2 severe obesity due to excess calories with serious comorbidity and body mass index (BMI) of36.0 to 36.9 in adult ([facility] [place]) Body mass index (BMI) 35.0-35.9, adult Closed head injury, sequela Hematoma of frontal scalp, sequela Age-related osteoporosis without current pathological fracture ([facility]) Essential (primary) hypertension ([facility]) Unspecified essential hypertension Gastroesophageal reflux disease without esophagitis Esophageal reflux Type 2 diabetes mellitus without complication, without long-term current use of insulin Blurry vision, left eye Other specified visual disturbances Encounter for subsequent annual wellness visit (AWV) in Medicare patient- Primary Type 2 diabetes mellitus with diabetic neuropathy, without long-term current use of insulin ([facility] [place]) Essential (primary) hypertension ([facility]) Unspecified essential hypertension Hypertensive chronic kidney disease with stage 1 through stage 4 chronic kidney disease, or unspecified chronic kidney disease ([facility]) Gastroesophageal reflux disease without esophagitis Esophageal reflux Age-related osteoporosis without current pathological fracture ([facility] [place]) Fibromyalgia Unspecified myalgia and myositis Class 2 severe obesity due to excess calories with serious comorbidity and body mass index (BMI) of36.0 to 36.9 in adult ([facility] [place]) Type 2 diabetes mellitus without complication, without long-term current use of insulin Mixed hyperlipidemia ([facility]) Mixed hyperlipidemia Back pain of lumbar region with sciatica- Primary Class 2 severe obesity due to excess calories with serious comorbidity and body mass index (BMI) of36.0 to 36.9 in adult ([facility] [place]) Essential (primary) hypertension ([facility]) Unspecified essential hypertension Gastro-esophageal reflux disease without esophagitis Esophageal reflux Acute pain of right shoulder- Primary Status post reverse total arthroplasty of right shoulder Shoulder stiffness, right documented in this encounter [facility] HealthcareEvaluation note* Diagnosis Benign essential HTN ([facility])- Primary Gastroesophageal reflux disease without esophagitis Esophageal reflux Stage 3 chronic kidney disease, unspecified whether stage 3a or 3b CKD (HCC) ([facility]) Class 2 severe obesity due to excess calories with serious comorbidity and body mass index (BMI) of36.0 to 36.9 in adult ([facility]) Menopause Symptomatic menopausal or female climacteric states Encounter for screening mammogram for malignant neoplasm of breast Encounter for subsequent annual wellness visit (AWV) in Medicare patient- Primary Benign essential HTN ([facility]) Gastroesophageal reflux disease without esophagitis Esophageal reflux Stage 3 chronic kidney disease, unspecified whether stage 3a or 3b CKD (HCC) ([facility]) 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, without long-term current use of insulin, unspecified whether stage 3a or 3b CKD (HCC) ([facility]) Acute pain of right shoulder- Primary Class 2 severe obesity due to excess calories with serious comorbidity and body mass index (BMI) of36.0 to 36.9 in adult ([facility]) Primary osteoarthritis involving multiple joints Preoperative clearance- Primary Unspecified pre-operative examination Type 2 diabetes mellitus with diabetic chronic kidney disease ([facility] Malignant neoplasm of unspecified ovary ([facility]) Polyneuropathy in diseases classified elsewhere ([facility]) Secondary hyperparathyroidism of renal origin ([facility]) Secondary hyperparathyroidism (of renal origin) Hypertensive chronic kidney disease with stage 1 through stage 4 chronic kidney disease, or unspecified chronic kidney disease ([facility]) Age-related osteoporosis without current pathological fracture ([facility] Essential (primary) hypertension ([facility]) Unspecified essential hypertension Type 2 diabetes mellitus with diabetic neuropathy, unspecified ([facility]) Secondary hyperparathyroidism ([facility]) Secondary hyperparathyroidism (of renal origin) Acute pain of right shoulder Essential (primary) hypertension ([facility])- Primary Unspecified essential hypertension Fibromyalgia Unspecified myalgia and myositis Polyneuropathy in diseases classified elsewhere ([facility]) ODALYS (generalized anxiety disorder) ([facility]) Generalized anxiety disorder Type 2 diabetes mellitus without complication, without long-term current use of insulin Fibromyalgia- Primary Unspecified myalgia and myositis Polyneuropathy in diseases classified elsewhere ([facility]) Class 2 severe obesity due to excess calories with serious comorbidity and body mass index (BMI) of36.0 to 36.9 in adult ([facility]) ODALYS (generalized anxiety disorder) ([facility]) Generalized anxiety disorder Essential (primary) hypertension ([facility]) Unspecified essential hypertension Age-related osteoporosis without current pathological fracture ([facility]) Primary osteoarthritis involving multiple joints Class 2 severe obesity due to excess calories with serious comorbidity and body mass index (BMI) of36.0 to 36.9 in adult ([facility])- Primary Essential (primary) hypertension ([facility]) Unspecified essential hypertension Acute non-recurrent pansinusitis Encounter for screening mammogram for malignant neoplasm of breast Hematoma of frontal scalp, subsequent encounter- Primary Closed head injury, subsequent encounter Class 2 severe obesity due to excess calories with serious comorbidity and body mass index (BMI) of36.0 to 36.9 in adult ([facility]) Essential (primary) hypertension ([facility]) Unspecified essential hypertension Hematoma of frontal scalp, sequela- Primary Morbid (severe) obesity due to excess calories ([facility]) Essential (primary) hypertension ([facility]) Unspecified essential hypertension Body mass index (BMI) 35.0-35.9, adult Type 2 diabetes mellitus with diabetic neuropathy, unspecified ([facility]) Malignant neoplasm of unspecified ovary ([facility]) Type 2 diabetes mellitus with diabetic cataract ([facility]) Type II or unspecified type diabetes mellitus with ophthalmic manifestations, not stated as uncontrolled Type 2 diabetes mellitus with diabetic chronic kidney disease ([facility]) Chronic kidney disease, stage 3a (HCC) ([facility]) Hypertensive chronic kidney disease with stage 1 through stage 4 chronic kidney disease, or unspecified chronic kidney disease ([facility]) Class 2 severe obesity due to excess calories with serious comorbidity and body mass index (BMI) of36.0 to 36.9 in adult ([facility]) Closed head injury, sequela Blurry vision, left eye Other specified visual disturbances Pre-operative clearance- Primary Unspecified pre-operative examination Class 2 severe obesity due to excess calories with serious comorbidity and body mass index (BMI) of36.0 to 36.9 in adult ([facility]) Body mass index (BMI) 35.0-35.9, adult Closed head injury, sequela Hematoma of frontal scalp, sequela Age-related osteoporosis without current pathological fracture ([facility]) Essential (primary) hypertension ([facility]) Unspecified essential hypertension Gastroesophageal reflux disease without esophagitis Esophageal reflux Type 2 diabetes mellitus without complication, without long-term current use of insulin Blurry vision, left eye Other specified visual disturbances Encounter for subsequent annual wellness visit (AWV) in Medicare patient- Primary Type 2 diabetes mellitus with diabetic neuropathy, without long-term current use of insulin ([facility]) Essential (primary) hypertension ([facility]) Unspecified essential hypertension Hypertensive chronic kidney disease with stage 1 through stage 4 chronic kidney disease, or unspecified chronic kidney disease ([facility]) Gastroesophageal reflux disease without esophagitis Esophageal reflux Age-related osteoporosis without current pathological fracture ([facility]) Fibromyalgia Unspecified myalgia and myositis Class 2 severe obesity due to excess calories with serious comorbidity and body mass index (BMI) of36.0 to 36.9 in adult ([facility]) Type 2 diabetes mellitus without complication, without long-term current use of insulin Mixed hyperlipidemia ([facility]) Mixed hyperlipidemia Back pain of lumbar region with sciatica- Primary Class 2 severe obesity due to excess calories with serious comorbidity and body mass index (BMI) of36.0 to 36.9 in adult ([facility]) Essential (primary) hypertension ([facility]) Unspecified essential hypertension Gastro-esophageal reflux disease without esophagitis Esophageal reflux Arthropathy, unspecified Unspecified osteoarthritis, unspecified site documented in this encounter [facility] HealthcareEvaluation note* Diagnosis S/P reverse total shoulder arthroplasty, right- Primary documented in this encounter [facility] [place] [facility]* Diagnosis Onset Date Resolution Status Admit Date CKD (chronic kidney disease) stage 3, GF R 30-59 ml/min acuteApril 2024 1:54pmHypertensive chronic kidney disease with stage 1 through stage 4 chronic kiacuteApril 2024 1:54pmSecondary hyperparathyroidismacuteApril 2024 1:54pmType 2 diabetes mellitus with diabetic chronic kidney diseaseacuteApril 2024 1:54pmStatus post reverse arthroplasty of right shouldernoneactiveApril 2024 1:54pm [facility] Work Phone: Evaluation note* Diagnosis Benign essential HTN ([facility])- Primary Gastroesophageal reflux disease without esophagitis Esophageal reflux Stage 3 chronic kidney disease, unspecified whether stage 3a or 3b CKD (HCC) ([facility]) Class 2 severe obesity due to excess calories with serious comorbidity and body mass index (BMI) of36.0 to 36.9 in adult ([facility]) Menopause Symptomatic menopausal or female climacteric states Encounter for screening mammogram for malignant neoplasm of breast Encounter for subsequent annual wellness visit (AWV) in Medicare patient- Primary Benign essential HTN ([facility]) Gastroesophageal reflux disease without esophagitis Esophageal reflux Stage 3 chronic kidney disease, unspecified whether stage 3a or 3b CKD (HCC) ([facility]) 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, without long-term current use of insulin, unspecified whether stage 3a or 3b CKD (HCC) ([facility]) Acute pain of right shoulder- Primary Class 2 severe obesity due to excess calories with serious comorbidity and body mass index (BMI) of36.0 to 36.9 in adult ([facility]) Primary osteoarthritis involving multiple joints Preoperative clearance- Primary Unspecified pre-operative examination Type 2 diabetes mellitus with diabetic chronic kidney disease ([facility]) Malignant neoplasm of unspecified ovary ([facility]) Polyneuropathy in diseases classified elsewhere ([facility]) Secondary hyperparathyroidism of renal origin ([facility]) Secondary hyperparathyroidism (of renal origin) Hypertensive chronic kidney disease with stage 1 through stage 4 chronic kidney disease, or unspecified chronic kidney disease ([facility]) Age-related osteoporosis without current pathological fracture ([facility] Essential (primary) hypertension ([facility]) Unspecified essential hypertension Type 2 diabetes mellitus with diabetic neuropathy, unspecified ([facility]) Secondary hyperparathyroidism ([facility]) Secondary hyperparathyroidism (of renal origin) Acute pain of right shoulder Essential (primary) hypertension ([facility])- Primary Unspecified essential hypertension Fibromyalgia Unspecified myalgia and myositis Polyneuropathy in diseases classified elsewhere ([facility]) ODALYS (generalized anxiety disorder) ([facility]) Generalized anxiety disorder Type 2 diabetes mellitus without complication, without long-term current use of insulin Fibromyalgia- Primary Unspecified myalgia and myositis Polyneuropathy in diseases classified elsewhere ([facility]) Class 2 severe obesity due to excess calories with serious comorbidity and body mass index (BMI) of36.0 to 36.9 in adult ([facility]) ODALYS (generalized anxiety disorder) ([facility]) Generalized anxiety disorder Essential (primary) hypertension ([facility]) Unspecified essential hypertension Age-related osteoporosis without current pathological fracture ([facility]) Primary osteoarthritis involving multiple joints Class 2 severe obesity due to excess calories with serious comorbidity and body mass index (BMI) of36.0 to 36.9 in adult ([facility])- Primary Essential (primary) hypertension ([facility]) Unspecified essential hypertension Acute non-recurrent pansinusitis Encounter for screening mammogram for malignant neoplasm of breast Hematoma of frontal scalp, subsequent encounter- Primary Closed head injury, subsequent encounter Class 2 severe obesity due to excess calories with serious comorbidity and body mass index (BMI) of36.0 to 36.9 in adult ([facility]) Essential (primary) hypertension ([facility]) Unspecified essential hypertension Hematoma of frontal scalp, sequela- Primary Morbid (severe) obesity due to excess calories ([facility]) Essential (primary) hypertension ([facility]) Unspecified essential hypertension Body mass index (BMI) 35.0-35.9, adult Type 2 diabetes mellitus with diabetic neuropathy, unspecified ([facility]) Malignant neoplasm of unspecified ovary ([facility]) Type 2 diabetes mellitus with diabetic cataract ([facility]) Type II or unspecified type diabetes mellitus with ophthalmic manifestations, not stated as uncontrolled Type 2 diabetes mellitus with diabetic chronic kidney disease ([facility]) Chronic kidney disease, stage 3a (HCC) ([facility]) Hypertensive chronic kidney disease with stage 1 through stage 4 chronic kidney disease, or unspecified chronic kidney disease ([facility]) Class 2 severe obesity due to excess calories with serious comorbidity and body mass index (BMI) of36.0 to 36.9 in adult ([facility]) Closed head injury, sequela Blurry vision, left eye Other specified visual disturbances Pre-operative clearance- Primary Unspecified pre-operative examination Class 2 severe obesity due to excess calories with serious comorbidity and body mass index (BMI) of36.0 to 36.9 in adult ([facility]) Body mass index (BMI) 35.0-35.9, adult Closed head injury, sequela Hematoma of frontal scalp, sequela Age-related osteoporosis without current pathological fracture ([facility]) Essential (primary) hypertension ([facility]) Unspecified essential hypertension Gastroesophageal reflux disease without esophagitis Esophageal reflux Type 2 diabetes mellitus without complication, without long-term current use of insulin Blurry vision, left eye Other specified visual disturbances Encounter for subsequent annual wellness visit (AWV) in Medicare patient- Primary Type 2 diabetes mellitus with diabetic neuropathy, without long-term current use of insulin ([facility]) Essential (primary) hypertension ([facility]) Unspecified essential hypertension Hypertensive chronic kidney disease with stage 1 through stage 4 chronic kidney disease, or unspecified chronic kidney disease ([facility]) Gastroesophageal reflux disease without esophagitis Esophageal reflux Age-related osteoporosis without current pathological fracture ([facility]) Fibromyalgia Unspecified myalgia and myositis Class 2 severe obesity due to excess calories with serious comorbidity and body mass index (BMI) of36.0 to 36.9 in adult ([facility]) Type 2 diabetes mellitus without complication, without long-term current use of insulin Mixed hyperlipidemia ([facility]) Mixed hyperlipidemia Back pain of lumbar region with sciatica- Primary Class 2 severe obesity due to excess calories with serious comorbidity and body mass index (BMI) of36.0 to 36.9 in adult ([facility]) Essential (primary) hypertension ([facility]) Unspecified essential hypertension Gastro-esophageal reflux disease without esophagitis Esophageal reflux ODALYS (generalized anxiety disorder) ([facility])- Primary Generalized anxiety disorder Class 2 severe obesity due to excess calories with serious comorbidity and body mass index (BMI) of36.0 to 36.9 in adult ([facility]) Back pain of lumbar region with sciatica Age-related osteoporosis without current pathological fracture ([facility]) Mixed hyperlipidemia ([facility]) Mixed hyperlipidemia Fibromyalgia Unspecified myalgia and myositis Polyneuropathy in diseases classified elsewhere ([facility]) documented in this encounter [facility] HealthcareEvaluation note* Diagnosis Benign essential HTN ([facility])- Primary Gastroesophageal reflux disease without esophagitis Esophageal reflux Stage 3 chronic kidney disease, unspecified whether stage 3a or 3b CKD (HCC) ([facility]) Class 2 severe obesity due to excess calories with serious comorbidity and body mass index (BMI) of36.0 to 36.9 in adult ([facility]) Menopause Symptomatic menopausal or female climacteric states Encounter for screening mammogram for malignant neoplasm of breast Encounter for subsequent annual wellness visit (AWV) in Medicare patient- Primary Benign essential HTN ([facility]) Gastroesophageal reflux disease without esophagitis Esophageal reflux Stage 3 chronic kidney disease, unspecified whether stage 3a or 3b CKD (HCC) ([facility]) 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, without long-term current use of insulin, unspecified whether stage 3a or 3b CKD (HCC) ([facility]) Acute pain of right shoulder- Primary Class 2 severe obesity due to excess calories with serious comorbidity and body mass index (BMI) of36.0 to 36.9 in adult ([facility]) Primary osteoarthritis involving multiple joints Preoperative clearance- Primary Unspecified pre-operative examination Type 2 diabetes mellitus with diabetic chronic kidney disease ([facility]) Malignant neoplasm of unspecified ovary ([facility]) Polyneuropathy in diseases classified elsewhere ([facility]) Secondary hyperparathyroidism of renal origin ([facility]) Secondary hyperparathyroidism (of renal origin) Hypertensive chronic kidney disease with stage 1 through stage 4 chronic kidney disease, or unspecified chronic kidney disease ([facility]) Age-related osteoporosis without current pathological fracture ([facility]) Essential (primary) hypertension ([facility]) Unspecified essential hypertension Type 2 diabetes mellitus with diabetic neuropathy, unspecified ([facility]) Secondary hyperparathyroidism ([facility]) Secondary hyperparathyroidism (of renal origin) Acute pain of right shoulder Essential (primary) hypertension ([facility])- Primary Unspecified essential hypertension Fibromyalgia Unspecified myalgia and myositis Polyneuropathy in diseases classified elsewhere ([facility]) ODALYS (generalized anxiety disorder) ([facility]) Generalized anxiety disorder Type 2 diabetes mellitus without complication, without long-term current use of insulin Fibromyalgia- Primary Unspecified myalgia and myositis Polyneuropathy in diseases classified elsewhere ([facility]) Class 2 severe obesity due to excess calories with serious comorbidity and body mass index (BMI) of36.0 to 36.9 in adult ([facility]) ODALYS (generalized anxiety disorder) ([facility]) Generalized anxiety disorder Essential (primary) hypertension ([facility]) Unspecified essential hypertension Age-related osteoporosis without current pathological fracture ([facility]) Primary osteoarthritis involving multiple joints Class 2 severe obesity due to excess calories with serious comorbidity and body mass index (BMI) of36.0 to 36.9 in adult ([facility])- Primary Essential (primary) hypertension ([facility]) Unspecified essential hypertension Acute non-recurrent pansinusitis Encounter for screening mammogram for malignant neoplasm of breast Hematoma of frontal scalp, subsequent encounter- Primary Closed head injury, subsequent encounter Class 2 severe obesity due to excess calories with serious comorbidity and body mass index (BMI) of36.0 to 36.9 in adult ([facility]) Essential (primary) hypertension ([facility]) Unspecified essential hypertension Hematoma of frontal scalp, sequela- Primary Morbid (severe) obesity due to excess calories ([facility]) Essential (primary) hypertension ([facility]) Unspecified essential hypertension Body mass index (BMI) 35.0-35.9, adult Type 2 diabetes mellitus with diabetic neuropathy, unspecified ([facility]) Malignant neoplasm of unspecified ovary ([facility]) Type 2 diabetes mellitus with diabetic cataract ([facility]) Type II or unspecified type diabetes mellitus with ophthalmic manifestations, not stated as uncontrolled Type 2 diabetes mellitus with diabetic chronic kidney disease ([facility]) Chronic kidney disease, stage 3a (HCC) ([facility]) Hypertensive chronic kidney disease with stage 1 through stage 4 chronic kidney disease, or unspecified chronic kidney disease ([facility]) Class 2 severe obesity due to excess calories with serious comorbidity and body mass index (BMI) of36.0 to 36.9 in adult ([facility]) Closed head injury, sequela Blurry vision, left eye Other specified visual disturbances Pre-operative clearance- Primary Unspecified pre-operative examination Class 2 severe obesity due to excess calories with serious comorbidity and body mass index (BMI) of36.0 to 36.9 in adult ([facility]) Body mass index (BMI) 35.0-35.9, adult Closed head injury, sequela Hematoma of frontal scalp, sequela Age-related osteoporosis without current pathological fracture ([facility]) Essential (primary) hypertension ([facility]) Unspecified essential hypertension Gastroesophageal reflux disease without esophagitis Esophageal reflux Type 2 diabetes mellitus without complication, without long-term current use of insulin Blurry vision, left eye Other specified visual disturbances Encounter for subsequent annual wellness visit (AWV) in Medicare patient- Primary Type 2 diabetes mellitus with diabetic neuropathy, without long-term current use of insulin ([facility]) Essential (primary) hypertension ([facility]) Unspecified essential hypertension Hypertensive chronic kidney disease with stage 1 through stage 4 chronic kidney disease, or unspecified chronic kidney disease ([facility]) Gastroesophageal reflux disease without esophagitis Esophageal reflux Age-related osteoporosis without current pathological fracture ([facility]) Fibromyalgia Unspecified myalgia and myositis Class 2 severe obesity due to excess calories with serious comorbidity and body mass index (BMI) of36.0 to 36.9 in adult ([facility]) Type 2 diabetes mellitus without complication, without long-term current use of insulin Mixed hyperlipidemia ([facility]) Mixed hyperlipidemia Back pain of lumbar region with sciatica- Primary Class 2 severe obesity due to excess calories with serious comorbidity and body mass index (BMI) of36.0 to 36.9 in adult ([facility]) Essential (primary) hypertension ([facility]) Unspecified essential hypertension Gastro-esophageal reflux disease without esophagitis Esophageal reflux ODALYS (generalized anxiety disorder) ([facility])- Primary Generalized anxiety disorder Class 2 severe obesity due to excess calories with serious comorbidity and body mass index (BMI) of36.0 to 36.9 in adult ([facility]) Back pain of lumbar region with sciatica Age-related osteoporosis without current pathological fracture [facility] Mixed hyperlipidemia ([facility]) Mixed hyperlipidemia Fibromyalgia Unspecified myalgia and myositis Polyneuropathy in diseases classified elsewhere ([facility]) Dermatophytosis of nail- Primary Dystrophic nail Other specified disease of nail Pain around toenail, right foot Pain around toenail, left foot documented in this encounter [facility] HealthcareEvaluation note* Diagnosis Benign essential HTN- Primary Gastroesophageal reflux disease without esophagitis Esophageal reflux Stage 3 chronic kidney disease, unspecified whether stage 3a or 3b CKD [place] Class 2 severe obesity due to excess calories with serious comorbidity and body mass index (BMI) of36.0 to 36.9 in adult [place] Menopause Symptomatic menopausal or female climacteric states Encounter for screening mammogram for malignant neoplasm of breast Encounter for subsequent annual wellness visit (AWV) in Medicare patient- Primary Benign essential HTN Gastroesophageal reflux disease without esophagitis Esophageal reflux Stage 3 chronic kidney disease, unspecified whether stage 3a or 3b CKD ([facility] 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, without long-term current use of insulin, unspecified whether stage 3a or 3b CKD ([facility]) Acute pain of right shoulder- Primary Class 2 severe obesity due to excess calories with serious comorbidity and body mass index (BMI) of36.0 to 36.9 in adult ([facility] Primary osteoarthritis involving multiple joints Preoperative clearance- Primary Unspecified pre-operative examination Type 2 diabetes mellitus with diabetic chronic kidney disease (HCC) Malignant neoplasm of unspecified ovary (HCC) Polyneuropathy in diseases classified elsewhere ([facility]) Secondary hyperparathyroidism of renal origin (HCC) Secondary [...] and myositis Polyneuropathy in diseases classified elsewhere (HCC) ODALYS (generalized anxiety disorder) Generalized anxiety disorder Type 2 diabetes mellitus without complication, without long-term current use of insulin (HCC) Fibromyalgia- Primary Unspecified myalgia and myositis Polyneuropathy in diseases classified elsewhere ([facility]) Class 2 severe obesity due to excess calories with serious comorbidity and body mass index (BMI) of36.0 to 36.9 in adult ([facility] ODALYS (generalized anxiety disorder) Generalized anxiety disorder Essential (primary) hypertension Unspecified essential hypertension Age-related osteoporosis without current pathological fracture Primary osteoarthritis involving multiple joints Class 2 severe obesity due to excess calories with serious comorbidity and body mass index (BMI) of36.0 to 36.9 in adult ([facility] Primary Essential (primary) hypertension Unspecified essential hypertension Acute non-recurrent pansinusitis Encounter for screening mammogram for malignant neoplasm of breast Hematoma of frontal scalp, subsequent encounter- Primary Closed head injury, subsequent encounter Class 2 severe obesity due to excess calories with serious comorbidity and body mass index (BMI) of36.0 to 36.9 in adult ([facility] Essential (primary) hypertension Unspecified essential hypertension Hematoma of frontal scalp, sequela- Primary Morbid (severe) obesity due to excess calories ([facility] Essential (primary) hypertension Unspecified essential hypertension Body mass index (BMI) 35.0-35.9, adult Type 2 diabetes mellitus with diabetic neuropathy, unspecified ([facility]) Malignant neoplasm of unspecified ovary (HCC) Type 2 diabetes mellitus with diabetic cataract ([facility]) Type II or unspecified type diabetes mellitus with ophthalmic manifestations, not stated as uncontrolled Type 2 diabetes mellitus with diabetic chronic kidney disease ([facility]) Chronic kidney disease, stage 3a ([facility] Hypertensive chronic kidney disease with stage 1 through stage 4 chronic kidney disease, or unspecified chronic kidney disease Class 2 severe obesity due to excess calories with serious comorbidity and body mass index (BMI) of36.0 to 36.9 in adult ([facility] Closed head injury, sequela Blurry vision, left eye Other specified visual disturbances Pre-operative clearance- Primary Unspecified pre-operative examination Class 2 severe obesity due to excess calories with serious comorbidity and body mass index (BMI) of36.0 to 36.9 in adult ([facility] Body mass index (BMI) 35.0-35.9, adult Closed head injury, sequela Hematoma of frontal scalp, sequela Age-related osteoporosis without current pathological fracture Essential (primary) hypertension Unspecified essential hypertension Gastroesophageal reflux disease without esophagitis Esophageal reflux Type 2 diabetes mellitus without complication, without long-term current use of insulin ([facility]) Blurry vision, left eye Other specified visual disturbances Encounter for subsequent annual wellness visit (AWV) in Medicare patient- Primary Type 2 diabetes mellitus with diabetic neuropathy, without long-term current use of insulin ([facility]) Essential (primary) hypertension Unspecified essential hypertension Hypertensive chronic kidney disease with stage 1 through stage 4 chronic kidney disease, or unspecified chronic kidney disease Gastroesophageal reflux disease without esophagitis Esophageal reflux Age-related osteoporosis without current pathological fracture Fibromyalgia Unspecified myalgia and myositis Class 2 severe obesity due to excess calories with serious comorbidity and body mass index (BMI) of36.0 to 36.9 in adult ([facility] Type 2 diabetes mellitus without complication, without long-term current use of insulin ([facility]) Mixed hyperlipidemia Mixed hyperlipidemia Back pain of lumbar region with sciatica- Primary Class 2 severe obesity due to excess calories with serious comorbidity and body mass index (BMI) of36.0 to 36.9 in adult ([facility] Essential (primary) hypertension Unspecified essential hypertension Gastro-esophageal reflux disease without esophagitis Esophageal reflux ODALYS (generalized anxiety disorder)- Primary Generalized anxiety disorder Class 2 severe obesity due to excess calories with serious comorbidity and body mass index (BMI) of36.0 to 36.9 in adult ([facility] Back pain of lumbar region with sciatica Age-related osteoporosis without current pathological fracture Mixed hyperlipidemia Mixed hyperlipidemia Fibromyalgia Unspecified myalgia and myositis Polyneuropathy in diseases classified elsewhere ([facility]) ODALYS (generalized anxiety disorder)- Primary Generalized anxiety disorder Class 2 severe obesity due to excess calories with serious comorbidity and body mass index (BMI) of36.0 to 36.9 in adult ([facility] Fibromyalgia Unspecified myalgia and myositis Polyneuropathy in diseases classified elsewhere ([facility]) documented in this encounter [facility] HealthcareEvaluation note* Diagnosis Benign essential HTN- Primary Gastroesophageal reflux disease without esophagitis Esophageal reflux Stage 3 chronic kidney disease, unspecified whether stage 3a or 3b CKD [place] Class 2 severe obesity due to excess calories with serious comorbidity and body mass index (BMI) of36.0 to 36.9 in adult ([facility] Menopause Symptomatic menopausal or female climacteric states Encounter for screening mammogram for malignant neoplasm of breast Encounter for subsequent annual wellness visit (AWV) in Medicare patient- Primary Benign essential HTN Gastroesophageal reflux disease without esophagitis Esophageal reflux Stage 3 chronic kidney disease, unspecified whether stage 3a or 3b CKD ([facility] 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, without long-term current use of insulin, unspecified whether stage 3a or 3b CKD ([facility]) Acute pain of right shoulder- Primary Class 2 severe obesity due to excess calories with serious comorbidity and body mass index (BMI) of36.0 to 36.9 in adult ([facility] Primary osteoarthritis involving multiple joints Preoperative clearance- Primary Unspecified pre-operative examination Type 2 diabetes mellitus with diabetic chronic kidney disease ([facility]) Malignant neoplasm of unspecified ovary ([facility]) Polyneuropathy in diseases classified elsewhere ([facility]) Secondary hyperparathyroidism of renal origin ([facility]) Secondary hyperparathyroidism (of renal origin) Hypertensive chronic kidney disease with stage 1 through stage 4 chronic kidney disease, or unspecified chronic kidney disease Age-related osteoporosis without current pathological fracture Essential (primary) hypertension Unspecified essential hypertension Type 2 diabetes mellitus with diabetic neuropathy, unspecified ([facility]) Secondary hyperparathyroidism ([facility]) Secondary hyperparathyroidism (of renal origin) Acute pain of right shoulder Essential (primary) hypertension- Primary Unspecified essential hypertension Fibromyalgia Unspecified myalgia and myositis Polyneuropathy in diseases classified elsewhere ([facility]) ODALYS (generalized anxiety disorder) Generalized anxiety disorder Type 2 diabetes mellitus without complication, without long-term current use of insulin ([facility]) Fibromyalgia- Primary Unspecified myalgia and myositis Polyneuropathy in diseases classified elsewhere ([facility]) Class 2 severe obesity due to excess calories with serious comorbidity and body mass index (BMI) of36.0 to 36.9 in adult ([facility] ODALYS (generalized anxiety disorder) Generalized anxiety disorder Essential (primary) hypertension Unspecified essential hypertension Age-related osteoporosis without current pathological fracture Primary osteoarthritis involving multiple joints Class 2 severe obesity due to excess calories with serious comorbidity and body mass index (BMI) of36.0 to 36.9 in adult ([facility] Primary Essential (primary) hypertension Unspecified essential hypertension Acute non-recurrent pansinusitis Encounter for screening mammogram for malignant neoplasm of breast Hematoma of frontal scalp, subsequent encounter- Primary Closed head injury, subsequent encounter Class 2 severe obesity due to excess calories with serious comorbidity and body mass index (BMI) of36.0 to 36.9 in adult ([facility] Essential (primary) hypertension Unspecified essential hypertension Hematoma of frontal scalp, sequela- Primary Morbid (severe) obesity due to excess calories ([facility] Essential (primary) hypertension Unspecified essential hypertension Body mass index (BMI) 35.0-35.9, adult Type 2 diabetes mellitus with diabetic neuropathy, unspecified ([facility]) Malignant neoplasm of unspecified ovary (HCC) Type 2 diabetes mellitus with diabetic cataract ([facility]) Type II or unspecified type diabetes mellitus with ophthalmic manifestations, not stated as uncontrolled Type 2 diabetes mellitus with diabetic chronic kidney disease (HCC) Chronic kidney disease, stage 3a ([facility] Hypertensive chronic kidney disease with stage 1 through stage 4 chronic kidney disease, or unspecified chronic kidney disease Class 2 severe obesity due to excess calories with serious comorbidity and body mass index (BMI) of36.0 to 36.9 in adult ([facility] Closed head injury, sequela Blurry vision, left eye Other specified visual disturbances Pre-operative clearance- Primary Unspecified pre-operative examination Class 2 severe obesity due to excess calories with serious comorbidity and body mass index (BMI) of36.0 to 36.9 in adult ([facility] Body mass index (BMI) 35.0-35.9, adult Closed head injury, sequela Hematoma of frontal scalp, sequela Age-related osteoporosis without current pathological fracture Essential (primary) hypertension Unspecified essential hypertension Gastroesophageal reflux disease without esophagitis Esophageal reflux Type 2 diabetes mellitus without complication, without long-term current use of insulin ([facility]) Blurry vision, left eye Other specified visual disturbances Encounter for subsequent annual wellness visit (AWV) in Medicare patient- Primary Type 2 diabetes mellitus with diabetic neuropathy, without long-term current use of insulin ([facility]) Essential (primary) hypertension Unspecified essential hypertension Hypertensive chronic kidney disease with stage 1 through stage 4 chronic kidney disease, or unspecified chronic kidney disease Gastroesophageal reflux disease without esophagitis Esophageal reflux Age-related osteoporosis without current pathological fracture Fibromyalgia Unspecified myalgia and myositis Class 2 severe obesity due to excess calories with serious comorbidity and body mass index (BMI) of36.0 to 36.9 in adult ([facility] Type 2 diabetes mellitus without complication, without long-term current use of insulin ([facility]) Mixed hyperlipidemia Mixed hyperlipidemia Back pain of lumbar region with sciatica- Primary Class 2 severe obesity due to excess calories with serious comorbidity and body mass index (BMI) of36.0 to 36.9 in adult ([facility] Essential (primary) hypertension Unspecified essential hypertension Gastro-esophageal reflux disease without esophagitis Esophageal reflux ODALYS (generalized anxiety disorder)- Primary Generalized anxiety disorder Class 2 severe obesity due to excess calories with serious comorbidity and body mass index (BMI) of36.0 to 36.9 in adult ([facility]) Back pain of lumbar region with sciatica Age-related osteoporosis without current pathological fracture Mixed hyperlipidemia Mixed hyperlipidemia Fibromyalgia Unspecified myalgia and myositis Polyneuropathy in diseases classified elsewhere ([facility]) ODALYS (generalized anxiety disorder)- Primary Generalized anxiety disorder Class 2 severe obesity due to excess calories with serious comorbidity and body mass index (BMI) of36.0 to 36.9 in adult ([facility]) Fibromyalgia Unspecified myalgia and myositis Polyneuropathy in diseases classified elsewhere ([facility]) Dermatophytosis of nail- Primary Dystrophic nail Other specified disease of nail Pain around toenail, right foot Pain around toenail, left foot documented in this encounter [facility] HealthcareEvaluation note* Diagnosis S/P reverse total shoulder arthroplasty, right- Primary [facility] - [facility]orted* Type Description Date Medical History hypertension, benign Medical Historytype II diabetesMedical Historyperipheral neuropathyMedical HistoryhivesMedical HistoryhyperlipidemiaMedical HistoryOsteoarthritisMedical Historyovarian cancer, 1995Medical HistoryosteopeniaMedical Historydegenerative disc diseaseMedical Historychronic painMedical Historybulging lumbar discMedical Historyclosed displaced fracture of head of left radius with routine healing Medical Historyleft radial head fractureSurgical Hqqxcqbsnkogaucguj19/2012 Surgical [id number] Historytonsillectomy and adenoidectomy Surgical Historyhernia repairSurgical HistorybunionectomySurgical HistoryTKA right- 2013 and left- 2012Surgical Historybursectomy- R hipSurgical HistoryR thumb repairSurgical HistoryL elbow spur removalSurgical Historycataract surgery, vuedcirwn91/19Surgical HistoryEYE LID TUCK03/2019Hospitalization History [facility] [employer] Other InstructionsNot on filedocumented in this encounter [facility]ructionsNot on filedocumented in this encounter [facility]ructionsNot on filedocumented in this encounter [facility]InstructionsNot on filedocumented in this encounter [facility] SystemInstructionsNot on filedocumented in this encounter [facility] SystemReason for referral (narrative)No reason for referral information availableDayton Osteopathic [facility] Work Phone: Reason for visit Narrative* Rehabilitation - Outpatient (Routine) - AuthorizedSpecialtyDiagnoses / ProceduresReferred By ContactReferred To ContactPhysical Therapy Diagnoses Status post right rotator cuff repair Procedures IN OFFICE/OUTPATIENT [facility] 60 MINUTES May Pulido, [employer] [address] [place] [address] Phone: tel: fax: Leo Goodwin, PT [address] [place] [address] Phone: tel: fax: Referral IDStatusReasonStart DateExpiration DateVisits RequestedVisits [id number] Specialty Services Required [facility] for visit Narrative* Rehabilitation - Outpatient (Routine) - AuthorizedSpecialtyDiagnoses / ProceduresReferred By ContactReferred To ContactPhysical Therapy Diagnoses Primary osteoarthritis, right shoulder Primary osteoarthritis, left shoulder s/p total shoulder Procedures IN PHYSICAL THERAPY EVALUATION HIGH COMPLEX 45 MINS Daniel Wolf MD [address], [address] [address] Phone: tel: fax: Leo Goodwin, PT [address] [place] [address] Phone: tel: fax: Referral IDStatusReasonStart DateExpiration DateVisits RequestedVisits [id number]/20/20258/ [facility] for visit Narrative* Rehabilitation - Outpatient (Routine) - AuthorizedSpecialtyDiagnoses / ProceduresReferred By ContactReferred To ContactPhysical Therapy Diagnoses Primary osteoarthritis, right shoulder Primary osteoarthritis, left shoulder s/p total shoulder Procedures IN PHYSICAL THERAPY EVALUATION HIGH COMPLEX 45 MINS Daniel Wolf MD [address], [address] [address] Phone: tel: fax: Leo Goowdin, PT [address] [place] [address] Phone: tel: fax: Referral IDStatusReasonStart DateExpiration DateVisits RequestedVisits [id number]/[id number] [facility] HealthcareReason for visit Narrative* Rehabilitation - Outpatient (Routine) - AuthorizedSpecialtyDiagnoses / ProceduresReferred By ContactReferred To ContactPhysical Therapy Diagnoses Primary osteoarthritis, right shoulder Primary osteoarthritis, left shoulder s/p total shoulder Procedures IN PHYSICAL THERAPY EVALUATION HIGH COMPLEX 45 MINS Daniel Wolf MD Phone: tel: fax: Leo Goodwin, PT [address] [place] [address] Phone: tel: fax: Referral IDStatusReasonStart DateExpiration DateVisits RequestedVisits [id number]/20/202512/ [facility] Healthcare Summary Purpose Family History Relationship Condition Age at Onset Recorded Date/T sweta brother Diabetes mellitus Unknown Malignant neoplasmUnknownDeceasedUnknownfatherHeart diseaseUnknownHypertension UnknownDiabetes mellitusUnknownHistory of strokeUnknownNot SpecifiedDeceased UnknownsisterMalignant neoplasmUnknown Relationship Condition Age at Onset Recorded Date/T sweta brother Diabetes mellitus Unknown Malignant neoplasmUnknownDeceasedUnknownfatherHeart diseaseUnknownHypertension UnknownDiabetes mellitusUnknownHistory of strokeUnknownmotherDeceasedUnknown sisterMalignant neoplasmUnknown Advance Directives Advance Directive Response Recorded Date/ Time Advance Directives No May 03 12:16pm Advance Directive Response Recorded Date/ Time Advance Directives No May 03 1:16pm Chief Complaint and Reason for Visit Chief Complaint Dm DM Chief Complaint Dm DM Amb Documentation RENAL 6 month f/uReason for VisitCKD (chronic kidney disease) stage 3, GFR 30-59 ml/min [id number] Hypomagnesemia Iron deficiency Secondary hyperparathyroidism Type 2 diabetes mellitus with diabetic chronic kidney disease Vitamin D deficiency Chief Complaint 6 month f/u / meter RENAL 6 MONTH F/UReason for VisitBMI 34.0-34.9,adult Dietary counseling and surveillance Hyperlipidemia Hypertension Type 2 diabetes mellitus with diabetic chronic kidney disease CKD (chronic kidney disease) stage 3, GFR 30-59 ml/min [id number] Hypomagnesemia Iron deficiency Secondary hyperparathyroidism Type 2 [...] 2024 1:42pm Chief Complaint Admit Date 6 month September [...] 2024 1:57pm ODALYS (generalized anxiety disorder) [facility] 2024 1:42pm Hypertension November 06, 2024 1:42pm Obesity, Class II, BMI 35-39.9 November 06, 2024 1:42pm Right shoulder pain November 06, 2024 1:42pm Lumbar spinal stenosis November 21, 2 025 4:25pm Chief Complaint Admit Date ESTABLISHED PATIENT November 06, 2024 1:42pm sciatica pain November 21, 2024 4:25pm M48.061 December 11, 2024 6 :45am Reason for Visit Admit Date ODALYS (generalized anxiety disorder) [facility] 2024 1:42pm Hypertension November 06, 2024 1:42pm Obesity, Class II, BMI 35-39.9 November 06, 2024 1:42pm Right shoulder pain November 06, 2024 1:42pm Lumbar spinal stenosis November 21 2 025 4:25pm Reason for Referral SpecialtyDiagnoses / ProceduresReferred By ContactReferred To ContactPhysical Therapy Diagnoses Status post right rotator cuff repair Procedures IN OFFICE/OUTPATIENT [facility] 60 MINUTES May Pulido, CORN POPPER [address] [place] [address] Leo Goodwin, PT [address] [place] [address] Referral IDStatusReasonStart DateExpiration DateVisits RequestedVisits [id number] Specialty Services Required Additional Source Comments INFORMATION SOURCE (unrecogn ized section and content) DATE CREATED AUTHOR 08/24/2017 [facility] DATE CREATED AUTHOR AUTHOR'S ORGANIZ ATION 06/08/2022 [facility] DATE CREATED AUTHOR AUTHOR'S ORGANIZ ATION 01/23/2024 [facility] DATE CREATED AUTHOR AUTHOR'S ORGANIZ ATION 02/23/2024 [facility] DATE CREATED AUTHOR AUTHOR'S ORGANIZ ATION 10/18/2024 [facility] DATE CREATED AUTHOR AUTHOR'S ORGANIZ ATION 11/11/2024 [facility] DATE CREATED AUTHOR AUTHOR'S ORGANIZ ATION 12/12/2024 [facility] REASON FOR VISIT (unrecogniz ed section and content) ReasonCommentsNail Anna Olson is a 77 y.o. female who presents for Nail care. BS 120 A1C 6.0 (03/2023) LV Dr. Bernardino Talavera 04/05/2023 SS: 8.5-9). SpecialtyDiagnoses / ProceduresReferred By ContactReferred To ContactPhysical Therapy Diagnoses Status post right rotator cuff repair Procedures IN OFFICE/OUTPATIENT [facility] 60 MINUTES May Pulido, CORN POPPER [address] [place] [address] Leo Goodwin, PT [address] [place] [address] Referral IDStatusReasonStart DateExpiration DateVisits RequestedVisits [id number] Specialty Services Required [id number]-[id number] RefillReason CommentsDiabetic nail careAshley Olson is a 78 y.o. female who presents for DM Foot Care. PCP: Bernardino Talavera LV: 10/04/2023. A1C: 5.5, BS: 103 SS: 8.5-9 ReasonCommentsPainReasonCommentsFollow-upReasonCommentshematomaReasonComments Hematoma of frontal scalp, sequelaReasonCommentsDM Foot CareAshley Olson is a 79 y.o. female who presents for DM Foot Care. PCP: Bernardino Talavera LV: 03/19/2024 A1C: 5.5, BS: 128 SS: [id number] Right reverse TSA 04/04/24XR TODAYReasonCommentsMedicare Annual Wellness Visit InitialReason CommentsPost-opP/O Right reverse TSA 04/04/24ReasonCommentsPost-opPO RIGHT REV TSA 04/04/2024ReasonCommentsBack PainReasonCommentsDiabetic nail careKatluz Olson is a 79 y.o. female who presents for DM Foot Care. PCP: Bernardino Talavera LV: 03/19/2024 A1C: 5.5, BS: 122 SS: 8.5-9ReasonCommentsGADReasonCommentsDM Foot CareEstablished patient presents today for diabetic nail care. PCP: Bernardino Talavera LV 08/2024, A1C: 6.2, BS: 133ReasonCommentsPainRight Reverse TSA 04/04/24 Care Teams (unrecognized sec tion and content) Team Status: Active Member Role Status Dates Lex Martinez MD Primary Care Provider Active Team Status: Inactive Member Role Status Dates Lex Martinez MD Primary Care Provider Active S tart: June 12, 2024 End: June 12Renee Noble ProviderActiveStart: June 12, 2024 End: June 12, 2024 Team Status: Inactive Member Role Status Dates Lex Martinez MD Primary Care Provider Active S tart: September 04, 2024 End: September 04, 2024Bernardino Talavera APRNAtmelyssa ProviderActiveStart: September 04, 2024 End: September 04, 2024 Team Status: Active Member Role Status Dates Lex Martinez MD Primary Care Provider Active S tart: June 05, 2024 Renee Soriano ProviderActiveStart: June 05, 2024 Team MemberRelationshipSpecialtyStart DateEnd Date Lex Martinez MD [address] [place] [address] PCP - GeneralFamily Uebqfeyy78/11/23 Dana Tapia NP [address] [place] [address] Nurse PractitionerFamily Medicine10/11/22Team MemberRelationshipSpecialtyStart DateEnd Date Lex Martinez MD [address] [place] [address] PCP - [facility]02/07/23 Dana Tapia NP [address] [place] [address] Nurse [facility]10/11/22 Team Status: Inactive Member Role Status Dates Bernardino Talavera APRN Attending Provider Active Start: March 31, 2023 End: March 31, 2023 Team Status: Inactive Member Role Status Dates PHYSICIAN NO FAMILY Primary Care Provider Active Start: March 31, 2023 End: March 31aitlLORENA Briceño-CActiveStart: March 31, 2023 End: March 31, 2023TonLizzette Marvin ProviderActiveStart: March 31, 2023 End: March 31, 2023 Team Status: Active Member Role Status Dates Lex Martinez MD Primary Care Provider Active S tart: May 11, 2023 Isaura López CMAAttending ProviderActiveStart: May 11, 2023 Team Status: Active Member Role Status Dates Lex Martinez MD Primary Care Provider Active S tart: June 07, 2023 Crystal Sorianoending ProviderActiveStart: June 07, 2023 Team Status: Inactive Member Role Status Dates Lex Martinez MD Primary Care Provider Active S tart: June 13, 2023 End: June 12Crystal Nobleending ProviderActiveStart: June 13, 2023 End: June 13, 2023 Team Status: Inactive Member Role Status Dates Lex Martinez MD Primary Care Provider Active S tart: October 04, 2023 End: October 04, 2023TonLizzette Marvin ProviderActiveStart: October 04, 2023 End: October 04, 2023Team MemberRelationshipSpecialtyStart DateEnd Date Lex Martinez MD [address] [place] [address] PCP - Generalmily Bvwgdoae69/11/23 Dana Tapia NP [address] [place] [address] Nurse PractitionerWal[facility] Medicine10/11/22Team MemberRelationshipSpecialtyStart DateEnd Date Lex Martinez MD [address] [place] [address] PCP - [facility] Jmdkhrqh38/11/23 Dana Tapia NP [address] [place] [address] Nurse PractitionerP[facility]10/11/22Team MemberRelationshipSpecialtyStart DateEnd Date Lex Martinez MD [address] [place] [address] PCP - Generalmi Jdksqpys70/11/23 Dana Tapia NP [address] [place] [address] Nurse PractitionerP[facility]10/11/22Team MemberRelationshipSpecialtyStart DateEnd Date Lex Martinez MD [address] [place] [address] PCP - [facility] Yqhalaag21/11/23 Dana Tapia NP [address] [place] [address] Nurse PractitionerP[facility]10/11/22Team MemberRelationshipSpecialtyStart DateEnd Date Lex Martinez MD [address] [place] [address] PCP - [facility]02/07/23 Dana Tapia NP [address] [place] [address] Nurse [facility]10/11/22Te MemberRelationshipSpecialtyStart DateEnd Date Lex Martinez MD [address] [place] [address] PCP - [facility]02/07/23 Dana Tapia NP [address] [place] [address] Nurse [facility]10/11/22Team MemberRelationshipSpecialtyStart DateEnd Date Lex Martinez MD [address] [place] [address] PCP - [facility]02/07/23 Dana Tapia NP [address] [place] [address] Nurse [facility]10/11/22Team MemberRelationshipSpecialtyStart DateEnd Date Lex Martinez MD [address] [place] [address] PCP - [facility]02/07/23 Dana Tapia, CHENTE [address] [place] [address] Nurse PractitionerP[facility]10/11/22Team MemberRelationshipSpecialtyStart DateEnd Date Lex Martinez MD [address] [place] [address] [facility]02/07/23 Dana Tapia, CHENTE [address] [place] [address] Nurse PractitionerP[facility]10/11/22 Team Status: Active Member Role Status Dates Lex Martinez MD Primary Care Provider Active S tart: December 06, 2023 Renee Soriano ProviderActiveStart: December 06, 2023 Team Status: Inactive Member Role Status Dates Lex Martinez MD Primary Care Provider Active S tart: December 12, 2023 End: December 11bdRenee Braden ProviderActiveStart: December 12, 2023 End: December 12, 2023Team MemberRelationshipSpecialtyStart DateEnd Date Lex Martinez MD [address] [place] [address] PCP [facility]02/07/23 Dana Tapia, CHENTE [address] [place] [address] Nurse PractitionerP[facility]10/11/22Team MemberRelationshipSpecialtyStart DateEnd Date Lex Martinez MD [address] [place] [address] PCP - [facility] Rjgqwsyd07/11/23 Dana Tapia, CHENTE [address] [place] [address] Nurse PractitionerP[facility]10/11/22Team MemberRelationshipSpecialtyStart DateEnd Date Lex Martinez MD [address] [place] [address] PCP - [facility]02/07/23 Dana Tapia NP [address] [place] [address] Nurse PractitionerP[facility]10/11/22Team MemberRelationshipSpecialtyStart DateEnd Date Lex Martinez MD [address] [place] [address] PCP - [facility]02/07/23 Dana Tapia NP [address] [place] [address] Nurse PractitionerP[facility]10/11/22Team MemberRelationshipSpecialtyStart DateEnd Date Lex Martinez MD [address] [place] [address] PCP - [facility]02/07/23 Dana Tapia NP [address] [place] [address] Nurse PractitionerP[facility]10/11/22Team MemberRelationshipSpecialtyStart DateEnd Date Lex Martinez MD [address] [place] [address] PCP - [facility]02/07/23 Dana Tapia NP [address] [place] [address] Nurse [facility]10/11/22Team MemberRelationshipSpecialtyStart DateEnd Date Lex Martinez MD [address] [place] [address] PCP - [facility]02/07/23 Dana Tapia NP [address] [place] [address] Nurse PractitionerP[facility]10/11/22Team MemberRelationshipSpecialtyStart DateEnd Date Lex Martinez MD [address] [place] [address] PCP - [facility]02/07/23 Dana Tapia NP [address] [place] [address] Nurse PractitionerP[facility]10/11/22Team MemberRelationshipSpecialtyStart DateEnd Date Lex Martinez MD [address] [place] [address] PCP - [facility]02/07/23 Dana Tapia, CHENTE [address] [place] [address] Nurse PractitionerP[facility]10/11/22Team MemberRelationshipSpecialtyStart DateEnd Date Lex Martinez MD [address] [place] [address] PCP - [facility]02/07/23 Dana Tapia NP [address] [place] [address] Nurse PractitionerP[facility]10/11/22Team MemberRelationshipSpecialtyStart DateEnd Date Lex Martinez MD [address] [place] [address] PCP - [facility]02/07/23 Dana Tapia NP [address] [place] [address] Nurse Pract[facility]10/11/22Team MemberRelationshipSpecialtyStart DateEnd Date Lex Martinez MD [address] [place] [address] PCP - [facility]02/07/23 Dana Tapia NP [address] [place] [address] Nurse Pract[facility]erP[facility]10/11/22Team MemberRelationshipSpecialtyStart DateEnd Date Lex Martinez MD [address] [place] [address] PCP - [facility]02/07/23 Dana Tapia NP [address] [place] [address] Nurse [facility]10/11/22Team MemberRelationshipSpecialtyStart DateEnd Date Lex Martinez MD [address] [place] [address] PCP - [facility]02/07/23 Dana Tapia NP [address] [place] [address] Nurse PractitionerP[facility]10/11/22Team MemberRelationshipSpecialtyStart DateEnd Date Lex Martinez MD [address] [place] [address] PCP - [facility]02/07/23 Dana Tapia NP [address] [place] [address] Nurse PractitionerP[facility]10/11/22Team MemberRelationshipSpecialtyStart DateEnd Date Lex Martinez MD [address] [place] [address] PCP - [facility] Wxrezmzy07/11/23 Dana Tapia NP [address] [place] [address] Nurse PractitionerP[facility]10/11/22Team MemberRelationshipSpecialtyStart DateEnd Date Lex Martinez MD [address] [place] [address] PCP - [facility]02/07/23 Dana Tapia NP [address] [place] [address] Nurse PractitionerP[facility]10/11/22Team MemberRelationshipSpecialtyStart DateEnd Date Lex Martinez MD [address] [place] [address] PCP - [facility] Zjkvgxlh16/11/23 Dana Tapia NP [address] [place] [address] Nurse PractitionerP[facility]10/11/22Team MemberRelationshipSpecialtyStart DateEnd Date Lex Martinez MD [address] [place] [address] PCP - [facility] Unqcdhtr76/11/23 Dana Tapia NP [address] [place] [address] Nurse PractitionerP[facility]10/11/22Team MemberRelationshipSpecialtyStart DateEnd Date Lex Martinez MD [address] [place] [address] PCP - [facility]02/07/23 Dana Tapia NP [address] [place] [address] Nurse PractitionerP[facility]10/11/22Team MemberRelationshipSpecialtyStart DateEnd Date Lex Martinez MD [address] [place] [address] PCP - [facility]02/07/23 Dana Tapia NP [address] [place] [address] Nurse PractitionerP[facility]10/11/22Team MemberRelationshipSpecialtyStart DateEnd Date Lex Martinez MD [address] [place] [address] PCP - [facility]02/07/23 Dana Tapia NP [address] [place] [address] Nurse PractitionerP[facility]10/11/22Team MemberRelationshipSpecialtyStart DateEnd Date Lex Martinez MD [address] [place] [address] PCP [facility] Snfzoake13/11/23 Dana Tapia NP [address] [place] [address] Nurse PractitionerP[facility]10/11/22Team MemberRelationshipSpecialtyStart DateEnd Date Lex Martinez MD [address] [place] [address] PCP - [facility]02/07/23 Dana Tapia NP [address] [place] [address] Nurse PractitionerP[facility]10/11/22Team MemberRelationshipSpecialtyStart DateEnd Date Lex Martinez MD [address] [place] [address] PCP - [facility]02/07/23 Dana Tapia NP [address] [place] [address] Nurse PractitionerP[facility]10/11/22Team MemberRelationshipSpecialtyStart DateEnd Date Lex Martinez MD [address] [place] [address] PCP - [facility]02/07/23 Dana Tapia NP [address] [place] [address] Nurse PractitionerP[facility]10/11/22Team MemberRelationshipSpecialtyStart DateEnd Date Lex Martinez MD [address] [place] [address] PCP - [facility]02/07/23 Dana Tapia, CHENTE [address] [place] [address] Nurse PractitionerP[facility]10/11/22Team MemberRelationshipSpecialtyStart DateEnd Date Lex Martinez MD [address] [place] [address] PCP - [facility]02/07/23 aDna Tapia NP [address] [place] [address] Nurse PractitionerP[facility]10/11/22 Team Status: Inactive Member Role Status Dates Lex Martinez MD Primary Care Provider Active S tart: February 10, 2024 End: February 10, 2024Lizzette Cordova ProviderActiveStart: February 10, 2024 End: February 10, 2024 Team Status: Inactive Member Role Status Dates Lex Martinez MD Primary Care Provider Active S tart: March 06, 2024 End: March 06, 2024Lizzette Cordova ProviderActiveStart: March 06, 2024 End: March 06, 2024Team MemberRelationshipSpecialtyStart DateEnd Date Lex Martinez MD [address] [place] [address] PCP - Generalmily Vmbmggpd49/11/23 Dana Tapia NP [address] [place] [address] Nurse PractitionerWal[facility] Medicine10/11/22Team MemberRelationshipSpecialtyStart DateEnd Date Lex Martinez MD [address] [place] [address] PCP - [facility]Wal[facility] Qzaddrts81/11/23 Dana Tapia NP [address] [place] [address] Nurse PractitionerP[facility]10/11/22Team MemberRelationshipSpecialtyStart DateEnd Date Dana Tapia, PONY CYLINDER PRESS OPERATOR-HUMAN RESOURCES TRAINING MANAGER PCP - [facility]Saint [facility]04/03/19Team MemberRelationshipSpecialtyStart Date End Date Lex Martinez MD [address] [place] [address] PCP - [facility] Wdkoyqtt03/11/23 Dana Tapia NP [address] [place] [address] PCP - [facility]04/06/24 Dana Tapia NP [address] [place] [address] Nurse PractitionerP[facility]10/11/22Team MemberRelationshipSpecialtyStart DateEnd Date Lex Martinez MD [address] [place] [address] PCP - Generalmily Tnfzipqe69/11/23 Dana Tapia NP [address] [place] [address] PCP - [facility]04/06/24 Dana Tapia NP [address] [place] [address] Nurse PractitionerP[facility]10/11/22Team MemberRelationshipSpecialtyStart DateEnd Date Dana Tapia, PONY CYLINDER PRESS OPERATOR-HUMAN RESOURCES TRAINING MANAGER PCP - GeneralNurse Practitioner04/03/19Team MemberRelationshipSpecialtyStart Date End Date Dana Tapia, PONY CYLINDER PRESS OPERATOR-HUMAN RESOURCES TRAINING MANAGER PCP - GeneralNurse Practitioner04/03/19Team MemberRelationshipSpecialtyStart Date End Date Lex Martinez MD [address] [place] [address] PCP - GeneralFamily Vbeiwmbg18/11/23 Dana Tapia NP [address] [place] [address] PCP - [facility]04/06/24 Dana Tapia NP [address] [place] [address] Nurse PractitionerWal[facility] Medicine10/11/22Te MemberRelationshipSpecialtyStart DateEnd Date Lex Martinez MD [address] [place] [address] PCP - [facility] Suljcuuf21/11/23 Dana Tapia NP [address] [place] [address] PCP - [facility]04/06/24 Dana Tapia, CHENTE [address] [place] [address] Nurse PractitionerP[facility]10/11/22Te MemberRelationshipSpecialtyStart DateEnd Date Lex Martinez MD [address] [place] [address] PCP - [facility]02/07/23 Dana Tapia NP [address] [place] [address] PCP - [facility]04/06/24 Dana Tapia, CHENTE [address] [place] [address] Nurse PractitionerP[facility]10/11/22Te MemberRelationshipSpecialtyStart DateEnd Date Lex Martinez MD [address] [place] [address] PCP - [facility] Jbebzhtn29/11/23 Dana Tapia NP [address] [place] [address] PCP - [facility]04/06/24 Dana Tapia NP [address] [place] [address] Nurse PractitionerP[facility]10/11/22Team MemberRelationshipSpecialtyStart DateEnd Date Lex Martinez MD [address] [place] [address] PCP - [facility]02/07/23 Dana Tapia NP [address] [place] [address] PCP - [facility]04/06/24 Dana Tapia NP [address] [place] [address] Nurse PractitionerP[facility]10/11/22Team MemberRelationshipSpecialtyStart DateEnd Date Lex Martinez MD [address] [place] [address] PCP - [facility]02/07/23 Dana Tapia NP [address] [place] [address] PCP - [facility]04/06/24 Dana Tapia NP [address] [place] [address] Nurse PractitionerWal[facility] Medicine10/11/22Team MemberRelationshipSpecialtyStart DateEnd Date Lex Martinez MD [address] [place] [address] PCP - [facility]Wal[facility] Hztsdssv79/11/23 Dana Tapia NP [address] [place] [address] PCP - [facility]04/06/24 Dana Tapia NP [address] [place] [address] Nurse PractitionerP[facility]10/11/22Team MemberRelationshipSpecialtyStart DateEnd Date Lex Martinez MD [address] [place] [address] PCP - [facility] Njhqcgbw20/11/23 Dana Tapia NP [address] [place] [address] PCP - [facility]04/06/24 Dana Tapia NP [address] [place] [address] Nurse PractitionerP[facility]10/11/22Team MemberRelationshipSpecialtyStart DateEnd Date Lex Martinez MD [address] [place] [address] PCP - [facility] Plplgtte63/11/23 Dana Tapia NP [address] [place] [address] PCP - [facility]04/06/24 Dana Tapia NP [address] [place] [address] Nurse PractitionerP[facility]10/11/22Team MemberRelationshipSpecialtyStart DateEnd Date Lex Martinez MD [address] [place] [address] PCP - [facility]02/07/23 Dana Tapia NP [address] [place] [address] [facility]04/06/24 Dana Tapia NP [address] [place] [address] Nurse PractitionerP[facility]10/11/22Team MemberRelationshipSpecialtyStart DateEnd Date Lex Martinez MD [address] [place] [address] PCP - [facility]02/07/23 Dana Tapia NP [address] [place] [address] PCP - [facility]04/06/24 Dana Tapia NP [address] [place] [address] Nurse PractitionerP[facility]10/11/22Te MemberRelationshipSpecialtyStart DateEnd Date Lex Martinez MD [address] [place] [address] PCP - [facility]02/07/23 Dana Tapia NP [address] [place] [address] PCP - [facility]04/06/24 Dana Tapia NP [address] [place] [address] Nurse PractitionerP[facility]10/11/22Te MemberRelationshipSpecialtyStart DateEnd Date Lex Martinez MD [address] [place] [address] PCP - [facility]02/07/23 Dana Tapia NP [address] [place] [address] PCP - [facility]04/06/24 Dana Tapia NP [address] [place] [address] Nurse PractitionerP[facility]10/11/22Team MemberRelationshipSpecialtyStart DateEnd Date Lex Martinez MD [address] [place] [address] PCP - GeneralFamily Rifrvltq51/11/23 Dana Tapia NP [address] [place] [address] PCP - [facility]04/06/24 Dana Tapia NP [address] [place] [address] Nurse PractitionerWal[facility] Medicine10/11/22Team MemberRelationshipSpecialtyStart DateEnd Date Lex Martinez MD [address] [place] [address] PCP - [facility]Wal[facility] Fpcpviio62/11/23 Dana Tapia NP [address] [place] [address] PCP - [facility]04/06/24 Dana Tapia NP [address] [place] [address] Nurse PractitionerWal[facility] Medicine10/11/22Team MemberRelationshipSpecialtyStart DateEnd Date Lex Martinez MD [address] [place] [address] PCP - Generalmi Bahutfbb78/11/23 Dana Tapia NP [address] [place] [address] PCP - [facility]04/06/24 Dana Tapia NP [address] [place] [address] Nurse PractitionerP[facility]10/11/22Team MemberRelationshipSpecialtyStart DateEnd Date Lex Martinez MD [address] [place] [address] PCP - [facility]02/07/23 Dana Tapia NP [address] [place] [address] [facility] [facility] - [facility]04/06/24 Dana Tapia NP [address] [place] [phone] Nurse Pract[facility]erP[facility]10/11/22Team MemberRelationshipSpecialtyStart DateEnd Date Dana Tapia, PONY CYLINDER PRESS OPERATOR-HUMAN RESOURCES TRAINING MANAGER PCP [facility]04/03/19Team MemberRelationshipSpecialtyStart Date End Date Lex Martinez MD [address] [place] [address] PCP - [facility]02/07/23 Dana Tapia NP [address] [place] [address] PCP - [facility]04/06/24 Dana Tapia NP [address] [place] [address] Nurse PractitionerP[facility]10/11/22Te MemberRelationshipSpecialtyStart DateEnd Date Lex Martinez MD [address] [place] [address] PCP - [facility]02/07/23 Dana Tapia NP [address] [place] [address] PCP - [facility]04/06/24 Dana Tapia NP [address] [place] [address] Nurse Pract[facility]10/11/22Te MemberRelationshipSpecialtyStart DateEnd Date Lex Martinez MD [address] [place] [address] PCP - [facility]02/07/23 Dana Tapia NP [address] [place] [address] PCP [facility]04/06/24 Dana Tapia NP [address] [place] [address] Nurse Pract[facility]10/11/22Team MemberRelationshipSpecialtyStart DateEnd Date Lex Martinez MD [address] [place] [address] PCP - GeneralFamily Astafqoo39/11/23 Dana Tapia NP [address] [place] [address] PCP - [facility]04/06/24 Dana Tapia NP [address] [place] [address] Nurse Pract[facility]Wal[facility]10/11/22Team MemberRelationshipSpecialtyStart DateEnd Date Lex Martinez MD [address] [place] [address] PCP - GeneralFamily Byfizvdc82/11/23 Dana Tapia NP [address] [place] [address] PCP - [facility]04/06/24 Dana Tapia NP [address] [place] [address] Nurse Practitionermily Medicine10/11/22Team MemberRelationshipSpecialtyStart DateEnd Date Lex Martinez MD [address] [place] [address] PCP - GeneralFamily Xovcsvno42/11/23 Dana Tapia NP [address] [place] [address] PCP - [facility]04/06/24 Dana Tapia NP [address] [place] [address] Nurse PractitionerP[facility]10/11/22Team MemberRelationshipSpecialtyStart DateEnd Date Lex Martinez MD [address] [place] [address] PCP - [facility]02/07/23 Dana Tapia NP [address] [place] [address] [facility] - [facility]04/06/24 Dana Tapia NP [address] [place] [address] Nurse PractitionerP[facility]10/11/22Team MemberRelationshipSpecialtyStart DateEnd Date Lex Martinez MD [address] [place] [address] PCP - [facility]02/07/23 Dana Tapia NP [address] [place] [address] PCP [facility]04/06/24 Dana Tapia NP [address] [place] [address] Nurse PractitionerMercy[facility] Medicine10/11/22 Team Status: Inactive Member Role Status Dates Lex Martinez MD Primary Care Provider Active S tart: November 06, 2024 End: November 06, 2024Dana Mackeyending ProviderActiveStart: November 06, 2024 End: November 06, 2024Team MemberRelationshipSpecialtyStart DateEnd Date Dana Tapia PONY CYLINDER PRESS OPERATOR-[facility] PCP - [facility]04/03/19 Team Status: Active Member Role Status Dates Dana Tapia , CORN POPPER-C Primary Care Provider Active Team Status: Inactive Member Role Status Dates Lex Martinez MD Primary Care Provider Active S tart: November 06, 2024 End: November 06, 2024Dana Tapia , CORN POPPER-CAttending ProviderActiveStart: November 06, 2024 End: November 06, 2024 Team Status: Inactive Member Role Status Dates Dana Tapia , CORN POPPER-C Primary Care Provider Active Start: November 21, 2024 End: November 21, 2024Dana Tapia , CORN POPPER-CAttending ProviderActiveStart: November 21, 2024 End: November 21, 2024 Team Status: Inactive Member Role Status Dates Dana Tapia , CORN POPPER-C Primary Care Provider Active Start: December 11, 2024 End: December 11, 2024Dana Tapia , CORN POPPER-CAttending ProviderActiveStart: December 11, 2024 End: December 11, 2024Team MemberRelationshipSpecialtyStart DateEnd Date Lex Martinez MD PCP - [facility] Wzprhdza25/11/23 Dana Tapia NP [facility] [place] [address] PCP - [facility]04/06/24 Dana Tapia NP Nurse PractitionerP[facility]10/11/22Team MemberRelationshipSpecialtyStart DateEnd Date Lex Martinez MD PCP [facility]02/07/23 Dana Tapia NP [address] [place] [address] [facility]04/06/24 Dana Tapia NP Nurse PractitionerP[facility]10/11/22 Goals (unrecognized section and content) Goals may [...] BE BASED ON THE PRIMARY CLINICAL RECORDS. [facility] [employer] ??? [facility]. provides no warranty or guarantee of the accuracy or completeness of information in this document.
[2025-02-08 10:22] LABS: Cholesterol 155 mg/dL (<=200); HDL Cholesterol 75 mg/dL (40-60); Triglycerides 112 mg/dL (<=150); VLDL CHOLESTEROL 22.4 mg/dL
== END 2025-02-08 09:02 | disposition home or self-care (01) ==
LOC: LAB 09:03
PROVIDERS: PCP Nurse Practitioner
DX: E11.22 Type 2 diabetes mellitus with diabetic chronic kidney disease (principal); N18.31 Chronic kidney disease, stage 3a; E78.5 Hyperlipidemia, unspecified
CPT/HCPCS: 36415; 80061

== ENCOUNTER 2025-02-22 10:02 | Outpatient (OUT) | payer MEDICARE, SELFPAY ==
--- OUTSIDE RECORDS SUMMARY | 2025-02-22 10:06 | XMS_ITS | Clinical Summary ---
Author Organization [employer] s tem Address [facility] [place]-[id number] [address] [place] [address] Care Team Providers Care Dietary Aide Teacher Name Role Phone LisettetrinitypatriciaDana Miguelina [facility] Primary Care Provider Allergies Active AllergyReactionsCriticalityNoted DateCommentsAdhesive Tape-Silicones 10/29/20163952Mppvtaexj44/15/2024 Other Reaction(s): g/i s/e YwunmljpihxPygevtqi93/15/4545VgpScujvwUvjm62/11/2022 Nausea, rash, eye swelling from an excessive soy diet. Sulfa (Sulfonamide Antibiotics)Hives10/28/2016 Medications MedicationSigDispense QuantityRefillsLast FilledStart DateEnd DateStatus amLODIPine (NORVASC) 10 mg tablet Take 0.5 tablets (5 mg total) by mouth in the morning.Active cetirizine (ZyrTEC) 10 mg tablet Active gabapentin (NEURONTIN) 100 mg capsule Take 1 capsule (100 mg total) by mouth in the morning.Active meloxicam (MOBIC) 15 mg tablet Take 1 tablet (15 mg total) by mouth in the morning.10/17/2016Active MAGNESIUM CARBONATE ORAL Take 250 mg by mouth in the morning.Active DOCOSAHEXANOIC ACID/EPA (FISH OIL ORAL) Take by mouth in the morning.Active fluticasone (FLONASE) 50 mcg/actuation nasal spray Administer 1 spray into each nostril as needed.Active melatonin tablet Take by mouth nightly.Active mryfhegi-cppx-LH-calcium &mins (THERAGRAN-M) 9 mg iron-400 mcg tablet Take 1 tablet by mouth in the morning.Active ascorbic acid, vitamin C, (VITAMIN C) 1000 mg tablet Take 1 tablet (1,000 mg total) by mouth in the morning.Active calcium carbonate-vitamin D3 (OSCAL 500 + D) 500 mg(1,250mg) -200 units per tablet Take 1 tablet by mouth in the morning and 1 tablet in the evening. Take with meals.Active atorvastatin (LIPITOR) 20 mg tablet Take 1 tablet (20 mg total) by mouth in the morning.05/01/2021ctive ferrous sulfate 325 (65 FE) mg tablet Take 1 tablet (325 mg total) by mouth in the morning.05/27/2021ctive losartan (COZAAR) 100 mg tablet Take 1 tablet (100 mg total) by mouth in the morning.07/05/2021ctive FARXIGA 5 mg tablet Take 1 tablet (5 mg total) by mouth in the morning.12/21/2021ctive latanoprost (XALATAN) 0.005 % ophthalmic solution Administer 1 drop to both eyes nightly.Active cholecalciferol, vitamin D3, 2,000 units capsule Take 1 capsule (2,000 Units total) by mouth in the morning.Active diphenhydrAMINE-acetaminophen (TYLENOL PM) 25-500 mg tablet Take 1 tablet by mouth nightly as needed for sleep.Active alendronate (FOSAMAX) 70 mg tablet Take 1 tablet (70 mg total) by mouth every 7 days. In a.m. with water on empty stomach, nothing else by mouth and remain upright for 30min saturdaysActive aspirin 81 mg Indications:Rotator cuff arthropathy of right shoulderTake 1 tablet (81 mg total) by mouth in the morning. Begin taking day AFTER total joint replacement. 30 tablet 5Active traMADoL (ULTRAM) 50 mg tablet Indications:S/P reverse total shoulder arthroplasty, rightTake 1 tablet (50 mg total) by mouth every 6 (six) hours as needed for pain. 28 tablet 5Active Active Problems ProblemNoted DateDiagnosed DateRotator cuff arthropathy of right shoulder 4Back pain7447Anhzjgnm16/10/6231Vawoeef48/10/2022Reflux efjvherqzac01/17/2018Ovarian ybiyqs6002/28/1994HypertensionFibromyalgiaDiabetes mellitusArthritisHyperlipidemia Family History Medical HistoryRelationNameCommentsCancerBrotherLiverDiabetesBrotherHeart diseaseFatherBreast cancerMotherCOPDMotherDiabetesMotherKidney diseaseMother Colon cancerPaternal AuntRelationNameStatusCommentsBrotherDeceasedFatherDeceased MotherDeceasedPaternal AuntDeceasedSisterAlive Social History Tobacco UseTypesPacks/DayYears UsedDateSmoking Tobacco: NeverSmokeless Tobacco: Never Tobacco Cessation:Counseling Given: Not Answered Alcohol UseStandard Drinks/WeekCommentsNo0 (1 standard drink = 0.6 oz pure alcohol)ChildcareAnswerDate TzaoyccfYgznxqyrdIffyiju74/12/2019EmploymentAnswer Date JnrvmczxXosailvzlnYsessre99/12/2019Hunger ScreeningAnswerDate Recorded Within the past 12 months we worried whether our food would run out before we got money to buy more.Never True02/20/2024Within the past 12 months the food we bought just didn't last and we didn't have money to get more.Never True 4Purpose - LifeAnswerDate RecordedPurpose and direction in lifeUnknown 1CommentsNoSex and Gender InformationValueDate RecordedSex Assigned at BirthNot on fileLegal ByaTgoeib36/06/2015 11:22 AM EDTGender IdentityNot on fileSexual OrientationNot on file Last Filed Vital Signs Vital SignReadingTime TakenCommentsBlood Pbnkuswl468/72004/04/2024 3:50 PM EST Whkof34983/05/2025 3:50 PM EGVJccwrycoygl45.1 ??C (97 ??F)04/04/2024 3:50 PM ESTRespiratory Htqy719204/04/2024 3:50 PM ESTOxygen Eanohagrhe63%04/04/2024 3:50 PM ESTInhaled Oxygen Concentration--Ecpqzk20.3 kg (208 lb)11/08/2024 2:10 PM EDT Dwxaza322 cm (5' 3 )11/08/2024 2:10 PM EDTBody Mass Index36.8509/12/2024 2:10 PM EDT Plan of Treatment Health MaintenanceDue DateLast DoneCommentsDepression Kftqdsfgw31/03/1959 DTaP,Tdap and Td Vaccines (1 - Tdap)1966Fall Risk Gpfscxzoj73/03/2012 COVID-19 Vaccine ( season), 12/04/2022, 12/06/2021, Additional history existsInfluenza Ycabqdn53/, 12/04/2022, 12/06/2021, Additional history existsTobacco Cephwuczk12/15/2026 11/12/20242353TixghknzcsaFiubpczjgkkc76/22/2022, 02/18/2022, 12/24/2016, Additional history existsZoster (Shingles) HnkkovjCabnkegye15/20/2023, 2RSV ( or age 60+ yrs)Pzxokmrpc56/25/2024 Medical Devices ImplantedTypeAreaManufacturerDevice IdentifierShelf Expiration DateModel / Serial / LotHealicoil Regenesorb 4.75mm Suture [place] Implanted:Qty: 1 on 10/05/2023 [facility]: ShoulderSMITH AND NEPHEW [id number] / NA / [id number] Regenesorb 4.75mm Suture [place] Implanted:Qty: 1 on 10/05/2023 by [facility] SPRINGSTAnchorRight: ShoulderSMITH AND NEPHEW [id number] / NA / [id number] Regenesorb 4.75 Suture [place] Implanted:Qty: 1 on 10/05/2023 by [facility]: ShoulderSMITH AND NEPHEW [id number] / NA / [id number] Knotless Regenesorb Suture [place] Implanted:Qty: 2 on 10/05/2023 by [facility]: ShoulderSMITH AND NEPHEW [id number] / NA / [id number] Knotless Regenesorb Suture [place] Implanted:Qty: 1 on 10/05/2023 by [facility]: ShoulderSMITH AND NEPHEW [id number] / NA / [id number] Hum 36mm Cmprh Std Shldr Prlng Rvrs - [id number] Implanted:Qty: 1 on 04/04/2024 by Edgardo [facility]ett [facility]ENTERBearingRight: ShoulderZimmer [id number]/17/[id number] / / [id number] Iol Ultrasert 18.0d - [id number] - [id number] Implanted:Qty: 1 on 04/04/2018 [facility]: EyeAlcon Surgical Inc08/27/2020AU00T0 18.0 / [id number] / NALens Iol Ultrasert 17.5d - [id number] - [id number] Implanted:Qty: 1 on 04/18/2018 [facility]: EyeAl[employer] Inc08/27/2020AU00T0 17.5 / [id number] / NABaseplate Augusto Cmprh 25mm Mn Shldr Tpr Adpr Rvrs Sys - [id number] Implanted:Qty: 1 on 04/04/2024 by Edgardo Barnett MD at [facility]ENTEROrthopedic ImplantRight: ShoulderZimmer [id number]/11/2034 [id number] / / [id number] Augusto 36mm Std Glenosphere Clr Cd Cmprh Versa-Dial - [id number] Implanted:Qty: 1 on 04/04/2024 by Edgardo Barnett MD [facility]ENTEROrthmusc health [facility] river medical centerdic ImplantRight: ShoulderZimmer [id number] / / [id number] Hum Cmprh Std Shldr Rvrs - [id number] Implanted:Qty: 1 on 04/04/2024 by Edgardo Barnett MD at [facility] ImplantRight: ShoulderZimmer [id number]/17/2035 [id number] / / [id number] Hum 83mm 12mm Cmprh Por Mn Shldr Rvrs Sys - [id number] Implanted:Qty: 1 on 04/04/2024 by Edgardo Barnett MD at [facility] ImplantRight: ShoulderZimmer [id number]/16/2032 [id number] / / [id number] Bn 15mm 4.75mm Lck Fx Ang Hx Hd Ti Cmprh 3.5mm Strl - [id number] Implanted:Qty: 1 on 04/04/2024 by [facility]ardo [facility]ett MD at [facility]ITALcrewRight: ShoulderZimmer [id number] / / [id number] Bn 40mm 6.5mm Cntr Hx Hd Ti Cmprh 3.5mm Strl Rvrs - [id number] Implanted:Qty: 1 on 04/04/2024 by Edgardo Barnett MD at [facility]ITALcrewRight: ShoulderZimmer [id number] / / [id number] Bn 30mm 4.75mm Va Hx Hd Ti Cmprh 3.5mm Strl Rvrs Shldr - [id number] Implanted:Qty: 1 on 04/04/2024 by Edgardo Barnett MD at [facility]ITALcrewRight: ShoulderZimmer [id number] / / [id number] Bn 35mm 4.75mm Va Hx Hd Ti Cmprh 3.5mm Strl Rvrs Shldr - [id number] Implanted:Qty: 1 on 04/04/2024 by Edgardo Barnett MD at [facility]ITALcrewRight: ShoulderZimmer [id number] / / [id number] Bn 15mm 4.75mm Lck Fx Ang Hx Hd Ti Cmprh 3.5mm Strl - [id number] Implanted:Qty: 1 on 04/04/2024 by Edgardo Barnett MD at [facility]ITALcrewRight: ShoulderZimmer [id number] / / [id number] Trab Mcro Byps - [id number] - [id number] Implanted:Qty: 1 on 04/04/2018 [facility]: EyeGLAUKOS CORP09/27/20206041WGW410B / [id number] / NAIsten Trab Mcro Byps - [id number] - [id number] Implanted:Qty: 1 on 04/18/2018 by [facility]09/27/20204273AED288M / [id number] / [id number] Procedures Procedure NamePriorityDate/TimeAssociated DiagnosisCommentsPROVATION COLONOSCOPY Bmfxcxo4402/18/2022 6:35 AM EST from Last 3 Months or Most Recently Relevant to Health Maintenance Results * Colonoscopy Report (02/18/2022 6:35 AM EST)Specimen (Source)Anatomical Location / LateralityCollection Method / VolumeCollection TimeReceived Time Narrative SYSTEMGENERATED, DOCUMENTATION - 02/18/2022 6:35 AM EST This order has been auto-finalized for image and report archival in PACs. *For full report details, please reach out to your physician. ??Effective 07/15/20 this image will be visible to you in [employer].* Authorizing ProviderResult TypeResult StatusMichael E Grillis DOIMG OR IMG ORDERABLESFinal Result from Last 3 Months or Most Recently Relevant to Health Maintenance Insurance Care Teams Team MemberRelationshipSpecialtyStart DateEnd Date Dana Tapia, TRAVELING CRANE OPERATOR-ULTRASONOGRAPHER PCP - GeneralNurse Practitioner04/03/19
--- OUTSIDE RECORDS SUMMARY | 2025-02-22 10:06 | XMS_ITS | Clinical Summary ---
Author Organization [facility] Address [address] [place] [address] Care Team Providers Care Research Electrician Name Role Phone Dana Tapia BEHAVIORAL HEALTH COUNSELOR Unavailable [phone] Lex Choi MD Primary Care Provider [phone] Dana Tapia BEHAVIORAL HEALTH COUNSELOR Unavailable [phone] Allergies Active AllergyReactionsCriticalityNoted QjumErvqfwnzTsdnhkftb83/15/2024 Other Reaction(s): g/i s/e MjkcsDmalbvw31/15/3173HjzqciikcupIohawgfd28/15/2024Soy Allergy (Obsolete)Unknown 10/04/2023Sulfa AntibioticsHives,TyoaAho8710/28/2016Wound Dressing AdhesiveUnknown 09/15/2022 Medications MedicationSigDispense QuantityRefillsLast FilledStart DateEnd DateStatus cetirizine (ZyrTEC) 10 MG tablet 1 (one) time each day at the same timeActive ferrous sulfate 325 (65 Fe) MG tablet Take 1 tablet by mouth every other dayActive Farxiga 5 MG Take 5 mg by mouth DailyActive Multiple Vitamins-Minerals (One Daily For Women 50+ Adv) tablet Active melatonin tablet Take by mouth at bedtimeActive magnesium 250 MG tablet 1 (one) time each day at the same timeActive latanoprost (Xalatan) 0.005 % ophthalmic solution 07/20/2022ctive Ascorbic Acid (vitamin C) 1000 MG tablet 1 (one) time each day at the same timeActive cholecalciferol (Vitamin D-3) 50 MCG (1999 UT) tablet Active Calcium Carbonate-Vitamin D (CALTRATE 600+D PO) Active aspirin 81 MG EC tablet Take 81 mg by mouth DailyActive OneTouch Ultra test strip 1 each by Other route if gvxoii6906/28/2022ctive diphenhydrAMINE-acetaminophen (Tylenol PM) 25-500 MG per tablet Take 2 tablets by mouth as needed at xmvcmnu5006/13/2023ctive fish oil-omega-3 fatty acids 1000 MG capsule 06/13/2023ctive ondansetron ODT (Zofran-ODT) 4 MG disintegrating tablet Take 4 mg by mouth every 8 (eight) hours if subepl5702/20/2024ctive traMADol (Ultram) 50 MG tablet Take 50 mg by mouth every 6 (six) hours if drjlki3404/04/2024tive gabapentin (Neurontin) 100 MG capsule Indications:Type 2 diabetes mellitus with diabetic neuropathy, unspecified (HCC) Take 1 capsule (100 mg) by mouth Daily 90 capsule 5Active amLODIPine (Norvasc) 5 MG tablet Indications:Essential (primary) hypertensionTake 1 tablet (5 mg) by mouth Daily 90 tablet 5Active losartan (Cozaar) 100 MG tablet Indications:Essential (primary) hypertensionTake 1 tablet (100 mg) by mouth in the morning. 90 tablet 5Active omeprazole (PriLOSEC) [address] capsule Indications:Gastro-esophageal reflux disease without esophagitis,Esophageal refluxTake 1 capsule (20 mg) by mouth in the morning. Take before meals. 90 capsule 5Active alendronate (Fosamax) 70 MG tablet Indications:OsteoporosisTake 1 tablet (70 mg) by mouth every 7 (seven) days Take in the morning with a full glass of water,on an empty stomach, and do not take anything else by mouth or lie down for the next 30 min. 12 tablet 5Active atorvastatin (Lipitor) 20 MG tablet Indications:Mixed hyperlipidemiaTake 1 tablet (20 mg) by mouth at bedtime 90 tablet 5Active DULoxetine (Cymbalta) [address] capsule Indications:ODALYS (generalized anxiety disorder),Fibromyalgia,Polyneuropathy in diseases classified elsewhere (HCC)Take 1 capsule (60 mg) by mouth Daily Do not crush or chew. 90 capsule 5Active Active Problems ProblemNoted DateDiagnosed DateBack pain of lumbar region with sciatica 05/30/2024 Assessment & Plan (07/12/2024 2:17 PM EDT): Last appt ordered PT could not go Going to see chiropractor Assessment & Plan (05/30/2024 3:18 PM EDT): Not going to change NSAID, no muscle relaxer d/t polypharmacy Will order PT Fu in 4-6 weeks Status post reverse total arthroplasty of right rkobkuhy15/24/2025Type 2 diabetes mellitus with diabetic sdytwonn93/06/2025Type 2 diabetes mellitus with diabetic neuropathy, mhdyryzipgk68/06/2025 Assessment & Plan (05/07/2024 7:11 AM EDT): Continue with glucose control Takes gabapentin and duloxetine Assessment & Plan (03/05/2024 7:25 AM EST): Continue with glucose control Takes gabapentin and duloxetine Body mass index (BMI) 35.0-35.9, adult03/05/2024lurry vision, left eye 03/05/2024 Assessment & Plan [...] do that as well Hematoma of frontal scalp02/27/2024 Assessment & Plan (03/19/2024 3:18 PM EST): Continue with icing at night Size is lessening Fu in 6 weeks Assessment & Plan (03/05/2024 2:56 PM EST): See notations about plastics and trauma Does appear to be softening up and thickness is lessening as well Dr naderer exams as well, we did discuss her intermittent blurry vision, this is more towards evening and likely related to size of hematoma and swelling that extends to upper eye lid left Assessment & Plan (02/27/2024 8:37 PM EST): Consider plastics? To releave off pressure from hematoma Continue ice thearpy Closed head vfxzvd3202/27/2024 Assessment & Plan (03/19/2024 6:36 AM EST): [...] this time Rotator cuff arthropathy of right ewlmaguw30/21/2024GAD (generalized anxiety disorder)11/28/2023 Assessment & Plan (08/22/2024 1:50 PM EDT): [...] the office if these occur. Shoulder stiffness, right09/26/2024Malignant neoplasm of unspecified ovary 09/26/2023 Assessment & Plan (03/05/2024 7:27 AM EST): Hysterectomy in the past Secondary hyperparathyroidism of renal evoymx3709/26/2023 Assessment & Plan (09/28/2023 7:25 AM EDT): Cont with nephrology Type 2 diabetes mellitus without complication, without long-term current use of sbwucyo3206/20/2023 Assessment & Plan (05/07/2024 7:13 AM EDT): [...] EDT): Continue with Dyllan Mapus Vitamin D qffgytkxag73/22/2024Iron techbizfzr95/22/0700Bjmfurxlozoulv40/22/2024 Acute pain of right /22/2024 Assessment & Plan (06/20/2023 2:23 PM EDT): Suspect bursitis based on HITESH, however rotator cuff pathology cannot be excluded Is already on meloxicam, and has DM so would rather not do steroids Will send her to see Stepemma Offered narcotics, and pt declined Encounter for subsequent annual wellness visit (AWV) in Medicare patient 03/28/2023 [...] Follow up yearly and prn Age-related osteoporosis without current pathological /22/2023 Overview (09/28/2023): DEXA scan: 02/19/23: -2.7 hip, osteoporosis Assessment & Plan (05/07/2024 7:12 AM EDT): Dexa: 02/19/23 Current med: fosamax Assessment & Plan (01/11/2024 7:16 AM EST): Med dose refill UTD on DEXA 02/19 Gjltfbekl64/11/7940Hpwoimtlvyoi41/11/2023 Assessment & Plan (07/12/2024 2:17 PM EDT): [...] of duloxetine helps Primary osteoarthritis involving multiple theqgr8502/07/2023 Assessment & Plan (01/11/2024 2:53 PM EST): Continue meloxicam, needs handicapped placard Assessment & Plan (03/28/2023 5:24 PM EST): Predominantly her bilat knees Activity as chronic conditions allow Type 2 diabetes mellitus with diabetic chronic kidney xebyxgl3802/07/2023 Assessment & Plan (03/05/2024 2:55 PM EST): [...] Cont with Mapus for management of diabetes Zkuvyxuhj19/11/2023 Assessment & Plan (02/07/2023 1:56 PM EST): Check DEXA scan Encounter for screening mammogram for malignant neoplasm of sdqryj2802/07/2023 Assessment & Plan (02/07/2023 1:56 PM EST): Time for yearly mammogram Defers BRCA gene testing Hypertensive chronic kidney disease with stage 1 through stage 4 chronic kidney disease, or unspecified chronic kidney vnzwznr7302/07/2023 Assessment & Plan (05/07/2024 7:11 AM EDT): [...] FOR STAGE 3 CHRONIC KIDNEY DISEASE (HCC) (CMS/[facility]) WRITTEN ON 45:23 PM BY DANA TAPIA NP Family hx of CKD, follows with dr White Kgafgyen28/10/2022Class 2 severe obesity due to excess calories with serious comorbidity and body mass index (BMI) of36.0 to 36.9 in adult07/07/2021 Assessment & Plan (08/22/2024 6:56 AM EDT): [...] EST): Activity as chronic conditions allow Back pain07/29/2016Gastroesophageal reflux itsmlel7105/18/2016 Assessment & Plan (05/07/2024 7:12 AM EDT): [...] Freq small meals Fu in 3 months Akopqrngvlcikq36/21/2017 Assessment & Plan (05/07/2024 7:14 AM EDT): On statin therapy Check labs yearly and prn dose changes Essential (primary) aboyqypvyrdf92/21/2017 Assessment & Plan (05/07/2024 7:11 AM EDT): [...] Gets labs per Nephrology regularly Resolved Problems ProblemNoted DateDiagnosed DateResolved DateChronic kidney disease, stage 3a 5003/05/2024Morbid (severe) obesity due to excess ydyseelz96/06/2025 03/05/2024ute non-recurrent pdulafjubgxe55/09/202404/03/2024 Assessment & Plan (02/06/2024 4:25 PM EST): Finish atb OTC sinus meds for HBP Fluids, rest, fu if not better Pre-operative vqtrweykz25/03/2024 Assessment & Plan (03/19/2024 3:20 PM EST): [...] 09/27/23 Cleared for surgery Polyneuropathy in diseases classified otcgxgpoj16 Assessment & Plan (01/11/2024 2:50 PM EST): Continue with deangelo and duloxetine Assessment & Plan (11/28/2023 2:34 PM EDT): Continue deangelo at 100mg daily Will add duloxetine to see if this helps as well Assessment & Plan (09/28/2023 7:20 AM EDT): Continue to monitor and need of tight glycemic control Secondary pothqevonhdvavlcrem10/22/202407/enign essential HTN02/07/2023 09/28/2023 Assessment & Plan (03/28/2023 5:22 PM EST): Stable at this time, no changes to meds Assessment & Plan (02/07/2023 1:54 PM EST): Stable, no changes in meds Cont current doses Fu with Nephrology Fu in 3 months Polyneuropathy associated with underlying ndwflkf55Ovarian eqbpes89 Encounters DateTypeDepartmentCare QsyqPzgunecuqws57/19/2025 2:45 PM ESTProcedure Visit [facility] [address] [place] [address] Markus Baer DPM Dermatophytosis of nail (Primary Dx); Dystrophic nail; Pain around toenail, right foot; Pain around toenail, left foot01/16/2025amboo flowsheet [facility] [address] [place] [address] Markus Baer DPM 01/16/2025Travelfrom Last 3 Months Immunizations ImmunizationAdministration DatesNext DueInfluenza, High Dose Seasonal, Preservative Free12/30/2018,11/17/2017,12/07/2016Influenza, High-dose Seasonal, Quadrivalent, Preservative Free12/04/2022,12/06/2021,11/30/2020Influenza, seasonal, injectable, preservative free01/27/2016,12/03/2014,11/23/2013 Influenza, trivalent, wvtxtcsxam27/24/2024Pneumococcal Conjugate PCV 13 01/27/2016Pneumococcal Polysaccharide PKYU5621/15RSV, recombinant, protein subunit RSVpreF, adjuvant reconstitu, 120mcg/0.5mL, PF (Arexvy)12/23/2023Unknown outside sujbybshatmo90/14/2020Zoster, Cwbqdtocfhs38/20/2023,11/10/2021 Family History Medical HistoryRelationNameCommentsCancerBrotherLiver cancerDiabetesBrother DiabetesFatherHeart diseaseFatherHypertensionFatherCancerMotherbreast cancer DiabetesMotherHeart diseaseMotherHyperlipidemiaMotherHypertensionMotherKidney diseaseMotherOsteoporosisMotherCancerSistercervicalRelationNameStatusComments BrotherFatherDeceasedMotherDeceasedOtherspouseDeceasedSister Social History Tobacco UseTypesPacks/DayYears UsedDateSmoking Tobacco: NeverPassive Smoke Exposure: NeverSmokeless Tobacco: Never Tobacco Cessation:Counseling Given: Not Answered Alcohol UseStandard Drinks/WeekCommentsNever7 (1 standard drink = 0.6 oz pure alcohol)Caffeine intake: 1-2 cups per day teaHumiliation, Afraid, Rape, and Kick questionnaireAnswerDate RecordedWithin the last year, have you been afraid of your partner or ex-partner?No03/28/2023Within the last year, have you been humiliated or emotionally abused in other ways by your partner or ex-partner?No 03/28/2023Within the last year, have you been kicked, hit, slapped, or otherwise physically hurt by your partner or ex-partner?No03/28/2023Within the last year, have you been raped or forced to have any kind of sexual activity by your part ner or ex-partner?No03/28/2023Social Connection and Isolation PanelAnswerDate RecordedIn a typical week, how many times do you talk on the phone with family, friends, or neighbors?Three times a week03/28/2023How often do you get together with friends or relatives?Three times a week03/28/2023How often do you attend cheondoism or sabianist services?1 to 4 times per year03/28/2023o you belong to any clubs or organizations such as cheondoism groups, unions, fraternal or athletic cristofer ups, or school groups?Yes03/28/2023How often do you attend meetings of the clubs or organizations you belong to?1 to 4 times per year03/28/2023re you , , , , never , or living with a partner? 03/28/2023UDIT-CAnswerDate RecordedQ1: How often do you have a drink containing alcohol?Never03/28/2023Q2: How many drinks containing alcohol do you have on a typical day when you are drinking?Patient does not drink03/28/2023Q3: How often do you have six or more drinks on one occasion?Never03/28/2023Overall Financial Resource Strain (CARDIA)AnswerDate RecordedHow hard is it for you to pay for the very basics like food, housing, medical care, and heating?Not hard at all 03/28/2023HQ-2AnswerDate RecordedPatient Health Questionnaire-2 Score0 05/07/2024[facility] - Occupational Stress QuestionnaireAnswerDate RecordedDo you feel stress - tense, restless, nervous, or anxious, or unable to sleep at night because yourmind is troubled all the time - these days?Only a mbheqr7603/28/2023Exercise Vital SignAnswerDate Recorded On average, how many days per week do you engage in moderate to strenuous exercise (like a brisk walk)?5 days03/28/2023On average, how many minutes do you engage in exercise at this level?20 min03/28/2023Hunger Vital SignAnswerDate RecordedWithin the past 12 months, you worried that your food would run out before you got the money to buymore.Never true03/28/2023Within the past 12 months, the food you bought just didn't last and you didn't have money to get more.Never true03/28/2023RAPARE - TransportationAnswerDate RecordedIn the past 12 months, has lack of transportation kept you from medical appointments or from getting medications?No03/28/2023In the past 12 months, has lack of transportation kept you from meetings, work, or from getting things needed for daily living?No03/28/2023Housing Stability Vital SignAnswerDate RecordedIn the last 12 months, was there a time when you were not able to pay the mortgage or rent on time?No03/28/2023Number of Places Lived in the Last YearNot on file 03/28/2023In the last 12 months, was there a time when you did not have a steady place to sleep or slept in wallacetonelter (including now)?No01/29/2024Comments UnknownSex and Gender InformationValueDate RecordedSex Assigned at BirthFemale 09/20/2023 5:10 PM EDTLegal YqeEtbexa64/15/2023 6:37 PM EDTGender IdentityFemale 09/20/2023 5:10 PM EDTSexual OrientationNot on file Last Filed Vital Signs Vital SignReadingTime TakenCommentsBlood Wuahtsbu307/8406 1:23 PM EDT Oouvx759508/22/2024 1:23 PM VICKigdjiacjvk45.6 ??C (97.8 ??F)08/22/2024 1:23 PM EDTRespiratory Ozev807908/22/2024 1:23 PM EDTOxygen Nkqscgdqgx27%08/22/2024 1:23 PM EDTInhaled Oxygen Concentration--Rhvlks49.4 kg (217 lb)01/16/2025 2:46 PM EST Vbpckm757 cm (5' 3 )01/16/2025 2:46 PM ESTBody Mass Index38.44103/18/2024 2:46 PM EST Plan of Treatment DateTypeDepartmentCare Team (Latest Contact Info)Bdcbycxouip64/26/2026 2:15 PM ESTProcedure Visit [facility] [address] [place] [address] Markus Baer DPM [address] [place], [place] [id number] Health MaintenanceDue DateLast DoneCommentsDiabetes: Retinopathy Screening , 01/10/2018Diabetes: Hemoglobin A1C/09/2024, 03/06/2024, 10/04/2023, Additional history existsMedicare Annual Wellness (AWV) , 03/28/2023, 4Diabetes: Urine Protein Screening /09/2024, 06/07/2023, 01/05/2018Pneumococcal Vaccine: 65+ Years Yawtschhk85/29/2016, 04/14/20127880GkicsrbugxsCoiixxuxsrej18/22/2022, 12/24/2016 Colorectal Cancer ScreeningDiscontinuedInfluenza DczsrapQfkyaumkd21/20/2025, 11/22/2023, 12/04/2022, Additional history existsCT ColonographyDiscontinued FIT-DNADiscontinuedFITDiscontinuedFOBTDiscontinuedSigmoidoscopyDiscontinued Procedures Procedure NamePriorityDate/TimeAssociated DiagnosisCommentsCOLOR FUNDUS PHOTOGRAPHY - OU - BOTH OSCNZkrmrvt74/13/2018 12:00 PM EST MICROALBUMIN / CREATININE URINE UFKXTIhfkoux89/08/2018 HEMOGLOBIN E8XRkhobtv53/08/2018 YCKWYPUCQHYYpofcsg00/27/2017 12:00 PM EDT from Last 3 Months or Most Recently Relevant to Health Maintenance Results * Color Fundus Photography - OU - Both Eyes (01/10/2018 12:00 PM EST)Anatomical RegionLateralityModalityHeadFundus PhotographySpecimen (Source)Anatomical Location / LateralityCollection Method / VolumeCollection TimeReceived Time 01/10/2018 12:00 PM EST Narrative 01/10/2018 12:00 PM EST PERFORMED AT [facility] LOCATION:[id number] no retinopathy Procedure Note CONVERSION, GENERIC - 07/14/2022 PERFORMED AT [facility] LOCATION:[id number] no retinopathy Authorizing ProviderResult TypeResult StatusIsaura Lynch MDOPHTH PHOTOGRAPHY Final Result * Microalbumin / creatinine urine ratio (01/05/2018)ComponentValueRef RangeTest MethodAnalysis TimePerformed AtPathologist [id number] - 320[facility] XWG86551.5NOT ESTABLISHEDN[facility] UPY81913.90.0 - 29.9 [facility] LABComment: THE ADA (DIABETES CARE 26:S94-S98, 2003) DEFINES ABNORMALITIES IN ALBUMIN EXCRETION FOLLOWS: CATEGORY ?RESULT (MCG/MG CREATININE) -------- ? NORMAL <30 MICROALBUMINURIA ? 30 - 299 CLINICAL ALBUMINURIA > OR = 300 THE ADA RECOMMENDS THAT AT LEAST TWO OF THREE SPECIMENS COLLECTED WITHIN A 3-6 MONTH PERIOD BE ABNORMAL BEFORE CONSIDERING A PATIENT TO BE WITHIN A DIAGNOSTICS CATEGORY. Specimen (Source)Anatomical Location / LateralityCollection Method / Volume Collection TimeReceived Time01/05/2018 Narrative Authorizing ProviderResult TypeResult StatusChristy A Snapd App URINE ORDERABLESFinal ResultPerforming OrganizationAddressCity/State/ZIP CodePhone Number [facility] * (ABNORMAL) Hemoglobin A1c (01/05/2018)ComponentValueRef RangeTest Method Analysis TimePerformed AtPathologist SignatureANGIOTENSIN 1 CONV6.6(H)4.0 - 6.0[facility] LABESTIM. AVG GLU (EAG)142.72[facility] Specimen (Source)Anatomical Location / LateralityCollection Method / Volume Collection TimeReceived Time01/05/2018 Narrative Authorizing ProviderResult TypeResult StatusChristy A OndangoLAB BLOOD ORDERABLESFinal ResultPerforming OrganizationAddressCity/State/ZIP CodePhone Number [facility] * Colonoscopy (12/24/2016 12:00 PM EDT)Anatomical RegionLateralityModality EndoscopySpecimen (Source)Anatomical Location / LateralityCollection Method / VolumeCollection TimeReceived Time12/24/2016 12:00 PM EDT Narrative 12/24/2016 12:00 PM EDT PERFORMED AT [facility] LOCATION:[id number] Normal Colonoscopy Procedure Note CONVERSION, GENERIC - 07/15/2022 PERFORMED AT [facility] LOCATION:[id number] Normal Colonoscopy Authorizing ProviderResult TypeResult StatusKatluz F StierwaltENDOSCOPY PROCEDURE ORDERABLESFinal Result from Last 3 Months or Most Recently Relevant to Health Maintenance Insurance Care Teams Team MemberRelationshipSpecialtyStart DateEnd Date Lex Choi MD PCP - GeneralFamily Xfhpnhsh75/11/23 Dana Tapia NP [address] [place] [address] PCP - [facility]CO [facility]04/06/24 Dana Tapia NP Nurse PractitionerFamily Medicine10/11/22
--- NOTE | 2025-02-22 10:33 | MM_ITS ---
Patient Name: TAMMY SOLORIO MR#: [id number] : 1945 Exam Date: 02/22/2025 Ordering Doctor: LIZETTE LEO CNP RADIOLOGY REPORT PROCEDURE: MM TOMOSYNTHESIS SCREENING BI COMPARISON: MM TOMOSYNTHESIS SCREENING BI, 02/17/2024. MM TOMOSYNTHESIS SCREENING BI, 02/15/2023. MG MAMM SCREEN 3D RIGOBERTO CAD, 02/05/2022. MG MAMM SCREEN RIGOBERTO W CAD, 12/15/2017. INDICATIONS: Screening Calculator Name NCI Breast Cancer Risk Assessment Tool 5 Year Breast Cancer Risk 3.80% Lifetime Breast Cancer Risk 6.70% Personal Breast Cancer No Personal Ovarian Cancer Yes, Age 37, Hysterectomy Treatments None Family Cancers Mother with breast cancer at age 63; Sister with uterine cancer at age 23; Brother with liver cancer at age 68. LOCATION: [facility] BREAST COMPOSITION: The breasts are almost entirely fatty. FINDINGS: DIAGNOSTIC CATEGORY 1--NEGATIVE. RIGHT BREAST: No significant suspicious finding. LEFT BREAST: No significant suspicious finding. RECOMMENDATIONS: ROUTINE MAMMOGRAM AND CLINICAL EVALUATION IN 12 MONTHS. Dictated by: Yosef Solis MD on 02/22/2025 at 12:40 Approved by: Yosef Solis MD on 02/22/2025 at 12:41
== END 2025-02-22 10:03 | disposition home or self-care (01) ==
LOC: MAMMO 10:03
PROVIDERS: PCP Nurse Practitioner; Visit Provider Nurse Practitioner
DX: Z12.31 Encounter for screening mammogram for malignant neoplasm of breast (principal); Z80.3 Family history of malignant neoplasm of breast; Z80.8 Family history of malignant neoplasm of other organs or systems
CPT/HCPCS: 77063; 77067